=== PATIENT | male | born 1955 | race Caucasian/White ===

== ENCOUNTER 2019-06-19 22:18 | Outpatient (REF) | payer OTHER, SELFPAY ==
[2019-06-19 22:44] LABS: HCT 38.2 % (40.0-50.0); HGB 12.2 g/dL (13.5-17.5); Mean Corp. HGB Concentration 31.9 g/dL (32.0-36.0); Mean Corpuscular Hemoglobin 28.9 pg (27.0-33.0); Mean Corpuscular Volume 90.5 fL (80-95); Mean Platelet Volume 11.6 fL (8.0-11.0); Platelet Count 222 x1000/uL (130-400); RBC 4.22 m/cumm (4.50-6.00); RBC Distribution Width 18.2 % (11.8-14.1); White Blood Cell Count 4.63 k/cumm (4.4-10.8)
[2019-06-19 22:53] LABS: ALT 49 U/L (16-63); AST 46 U/L (15-37); Albumin 3.6 g/dL (3.4-5.0); Alkaline Phosphatase 70 U/L (46-116); Anion Gap 10.7 mmol/L (3-11); BUN 19 mg/dL (7-18); Bilirubin, Total 0.4 mg/dL (0.2-1.0); CO2 24.3 mmol/L (21.0-32.0); CREATININE 0.94 mg/dL (0.70-1.30); Calcium 9.2 mg/dL (8.5-10.1); Chloride 105 mmol/L (98-107); Glucose 81 mg/dL (74-106); Potassium 4.2 mmol/L (3.5-5.1); Sodium 140 mmol/L (136-145); Total Protein 6.9 g/dL (6.4-8.2)
== END 2019-06-19 22:38 ==
LOC: NCHCN 22:18
PROVIDERS: Visit Provider Nurse Practitioner Family
DX: R63.4 Abnormal weight loss (principal); D62 Acute posthemorrhagic anemia; J15.9 Unspecified bacterial pneumonia; J96.01 Acute respiratory failure with hypoxia
CPT/HCPCS: 80053; 85027

== ENCOUNTER 2019-08-06 10:03 | Outpatient (REF) | payer OTHER, SELFPAY ==
[2019-08-06 21:53] LABS: Abs Immature Grans 0.01 k/cumm (0.0-0.09); Absolute Basophil Count 0.03 k/cumm (0.0-0.2); Absolute Eosinophil Count 0.14 k/cumm (0.0-0.7); Absolute Lymphocyte Count 0.97 k/cumm (1.2-3.4); Basophils % 0.8; Eosinophils % 3.9; HCT 41.6 % (40.0-50.0); HGB 13.9 g/dL (13.5-17.5); Immature Grans % 0.3 %; Lymphocytes % 27.3; Mean Corp. HGB Concentration 33.4 g/dL (32.0-36.0); Mean Corpuscular Hemoglobin 30.2 pg (27.0-33.0); Mean Corpuscular Volume 90.4 fL (80-95); Mean Platelet Volume 12.1 fL (8.0-11.0); Monocytes % 14.1; Neutrophils % 53.6; Platelet Count 144 x1000/uL (130-400); RBC Distribution Width 15.4 % (11.8-14.1); White Blood Cell Count 3.55 k/cumm (4.4-10.8)
[2019-08-06 22:26] LABS: Iron 134 ug/dL (65-175)
[2019-08-06 22:28] LABS: ALT 73 U/L (16-63); AST 45 U/L (15-37); Albumin 3.8 g/dL (3.4-5.0); Alkaline Phosphatase 63 U/L (46-116); Anion Gap 12.6 mmol/L (3-11); BUN 20 mg/dL (7-18); Bilirubin, Total 0.5 mg/dL (0.2-1.0); CO2 21.4 mmol/L (21.0-32.0); CREATININE 0.98 mg/dL (0.70-1.30); Calcium 9.1 mg/dL (8.5-10.1); Chloride 105 mmol/L (98-107); Glucose 111 mg/dL (74-106); Potassium 4.1 mmol/L (3.5-5.1); Sodium 139 mmol/L (136-145); Total Protein 6.7 g/dL (6.4-8.2); Vitamin B12 647 pg/mL (193-986)
[2019-08-06 22:29] LABS: Folate > 20.0 ng/mL (8.6-20.0)
== END 2019-08-06 10:23 ==
LOC: NCHCN 10:03
PROVIDERS: PCP Nurse Practitioner Family; Visit Provider Nurse Practitioner Family
DX: D62 Acute posthemorrhagic anemia (principal); R63.4 Abnormal weight loss; I48.91 Unspecified atrial fibrillation; Z87.891 Personal history of nicotine dependence; N17.9 Acute kidney failure, unspecified
CPT/HCPCS: 80053; 82607; 82746; 83540; 85025

== ENCOUNTER 2020-09-15 13:56 | Outpatient (REF) | payer OTHER, SELFPAY ==
[2020-09-15 14:44] LABS: HCT 39.2 % (40.0-50.0); MCH 32.1 pg (27.0-33.0); MCHC 33.2 % (32.0-36.0); MCV 96.8 fL (80-95); MPV 12.3 fL (8.0-11.0); Platelet Count 165 10^3/uL (130-400); RBC 4.05 10^6/uL (4.36-5.78); RDW 14.2 % (11.8-14.1); RDW-SD 50.4 fL; WBC 5.21 10^3/uL (4.4-10.8)
[2020-09-15 15:25] LABS: ALT 52 U/L (16-63); AST 37 U/L (15-37); Albumin 3.6 g/dL (3.4-5.0); Alkaline Phosphatase 82 U/L (46-116); Anion Gap 9.8 mmol/L (3-11); BUN 15 mg/dL (7-18); Bilirubin, Total 0.3 mg/dL (0.2-1.0); CO2 29.2 mmol/L (21.0-32.0); Calcium 9.3 mg/dL (8.5-10.1); Calculated LDL 96 mg/dL (<100); Chloride 105 mmol/L (98-107); Cholesterol 160 mg/dL (<200); Glucose 97 mg/dL (74-106); HDL Cholesterol 54 mg/dL (40-60); Sodium 144 mmol/L (136-145); Total Protein 6.7 g/dL (6.4-8.2); Triglyceride 54 mg/dL (<150)
[2020-09-15 22:43] LABS: PSA, Screening 1.8 ng/mL (0.0-4.5)
[2020-09-16 09:53] LABS: HBs Antibody, Quant <3.1 mIU/mL (See Note); Hepatitis B Surface Ab Negative (See Note)
[2020-09-16 12:00] LABS: Hepatitis C Ab w Rflx HCV PCR Reactive (Negative)
[2020-09-17 14:43] LABS: HCV RNA Qualitative Detected (Undetected)
== END 2020-09-15 13:57 | disposition home or self-care (01) ==
LOC: NCHCN 13:56
PROVIDERS: PCP Nurse Practitioner Family; Visit Provider Nurse Practitioner Family
DX: I25.10 Atherosclerotic heart disease of native coronary artery without angina pectoris (principal); R39.9 Unspecified symptoms and signs involving the genitourinary system; K26.0 Acute duodenal ulcer with hemorrhage; Z86.79 Personal history of other diseases of the circulatory system; Z12.5 Encounter for screening for malignant neoplasm of prostate
CPT/HCPCS: 80053; 80061; 84153; 85027; 86706; 86803; 87522

== ENCOUNTER 2020-09-30 13:39 | Outpatient (REF) | payer OTHER, SELFPAY ==
[2020-09-30 21:42] LABS: Iron 98 ug/dL (65-175); Total Iron Binding Capacity 286 ug/dL (250-450); Transferrin Sat 34 % (20-55)
[2020-09-30 21:55] LABS: Ferritin 205 ng/mL (26-388)
[2020-10-02 09:48] LABS: HIV-1/2 Ag & Ab Screen Negative (Negative)
[2020-10-03 02:51] LABS: HCV Genotype 1a (Undetected)
[2020-10-03 09:22] LABS: ALT 37 U/L (7-55); ActiTest Grade A0-A1; ActiTest Interpretation no activity; ActiTest Score 0.23; Alpha-2-Macroglobulin 313 mg/dL (100 - 280); Apoliprotein A1 145 mg/dL (>=120); Bilirubin, Total 0.4 mg/dL (<=1.2); FibroTest Interpretation minimal fibrosis; FibroTest Score 0.41; FibroTest Stage F1-F2; GGT 24 U/L (8 - 61); Haptoglobin 176 mg/dL (30 - 200)
== END 2020-09-30 13:40 | disposition home or self-care (01) ==
LOC: NCHCN 13:39
PROVIDERS: PCP Nurse Practitioner Family; Visit Provider Nurse Practitioner Family
DX: B19.20 Unspecified viral hepatitis C without hepatic coma (principal); Z86.2 Personal history of diseases of the blood and blood-forming organs and certain disorders involving the immune mechanism; Z11.4 Encounter for screening for human immunodeficiency virus [HIV]
CPT/HCPCS: 81596; 87389; 82728; 83540; 83550; 87521

== ENCOUNTER 2020-10-30 18:58 | Outpatient (REF) | payer OTHER, SELFPAY ==
[2020-11-03 10:03] LABS: Hepatitis B Surface Ag Negative (Negative)
[2020-11-03 10:49] LABS: Hep B Core Antibody Negative (Negative)
== END 2020-10-30 18:59 | disposition home or self-care (01) ==
LOC: NCHCN 18:58
PROVIDERS: PCP Nurse Practitioner Family; Visit Provider Family Medicine
DX: B19.20 Unspecified viral hepatitis C without hepatic coma (principal)
CPT/HCPCS: 86704; 87340

== ENCOUNTER 2020-12-19 20:43 | Outpatient (REF) | payer OTHER, SELFPAY ==
[2020-12-19 21:08] LABS: HCT 40.1 % (40.0-50.0); HGB 13.2 g/dL (13.5-17.5); MCH 32.3 pg (27.0-33.0); MCHC 32.9 % (32.0-36.0); MPV 11.8 fL (8.0-11.0); Platelet Count 177 10^3/uL (130-400); RBC 4.09 10^6/uL (4.36-5.78); RDW 14.3 % (11.8-14.1); RDW-SD 51.8 fL; WBC 6.83 10^3/uL (4.4-10.8)
[2020-12-19 21:20] LABS: ALT 36 U/L (16-63); AST 32 U/L (15-37); Albumin 3.8 g/dL (3.4-5.0); Alkaline Phosphatase 123 U/L (46-116); Anion Gap 10.1 mmol/L (3-11); BUN 25 mg/dL (7-18); Bilirubin, Total 0.8 mg/dL (0.2-1.0); CO2 25.9 mmol/L (21.0-32.0); CREATININE 1.1 mg/dL (0.70-1.30); Calcium 9.5 mg/dL (8.5-10.1); Chloride 108 mmol/L (98-107); Glucose 83 mg/dL (74-106); Potassium 4.8 mmol/L (3.5-5.1); Sodium 144 mmol/L (136-145); Total Protein 6.9 g/dL (6.4-8.2)
[2020-12-22 15:28] LABS: HCV RNA Qualitative Undetected (Undetected)
== END 2020-12-19 20:44 | disposition home or self-care (01) ==
LOC: NCHCN 20:43
PROVIDERS: PCP Nurse Practitioner Family; Visit Provider Family Medicine
DX: B19.20 Unspecified viral hepatitis C without hepatic coma (principal)
CPT/HCPCS: 80053; 85027; 87522

== ENCOUNTER 2021-07-06 17:41 | Outpatient (REF) | payer MEDICARE, SELFPAY ==
[2021-07-06 16:26] LABS: ALT 25 U/L (16-63); AST 21 U/L (15-37); Albumin 4.1 g/dL (3.4-5.0); Alkaline Phosphatase 95 U/L (46-116); Anion Gap 12.6 mmol/L (3-11); BUN 27 mg/dL (7-18); Bilirubin, Total 0.6 mg/dL (0.2-1.0); CO2 25.4 mmol/L (21.0-32.0); CREATININE 1.1 mg/dL (0.70-1.30); Calcium 9.3 mg/dL (8.5-10.1); Calculated LDL 86 mg/dL (<100); Chloride 104 mmol/L (98-107); Cholesterol 154 mg/dL (<200); Glucose 89 mg/dL (74-106); HDL Cholesterol 58 mg/dL (40-60); Potassium 4.3 mmol/L (3.5-5.1); Sodium 142 mmol/L (136-145); Total Protein 7.4 g/dL (6.4-8.2); Triglyceride 50 mg/dL (<150)
== END 2021-07-06 17:42 | disposition home or self-care (01) ==
LOC: NCHCN 17:41
PROVIDERS: PCP Nurse Practitioner Family; Visit Provider Nurse Practitioner Family
DX: E78.5 Hyperlipidemia, unspecified (principal); B19.20 Unspecified viral hepatitis C without hepatic coma
CPT/HCPCS: 80053; 80061

== ENCOUNTER 2024-03-15 12:09 | Outpatient (REF) | payer MEDICARE, SELFPAY ==
[2024-03-15 15:05] LABS: HCT 49.1 % (40.0-50.0); HGB 16.5 g/dL (13.5-17.5); MCH 33.7 pg (27.0-33.0); MCHC 33.6 % (32.0-36.0); MCV 100 fL (80-95); MPV 11.5 fL (8.0-11.0); Platelet Count 211 10^3/uL (130-400); RDW 13.5 % (11.8-14.1); RDW-SD 50.3 fL; WBC 7.54 10^3/uL (4.4-10.8)
[2024-03-15 15:52] LABS: ALT 21 U/L (16-63); AST 16 U/L (15-37); Albumin 4.2 g/dL (3.4-5.0); Alkaline Phosphatase 81 U/L (46-116); Anion Gap 7.2 mmol/L (3-11); BUN 19 mg/dL (7-18); Bilirubin, Total 0.68 mg/dL (0.2-1.0); CO2 28.8 mmol/L (21.0-32.0); CREATININE 1.1 mg/dL (0.70-1.30); Calculated LDL 97 mg/dL (<100); Chloride 103 mmol/L (98-107); Cholesterol 170 mg/dL (<200); Estimated GFR 72.22 (mL/min/1.73m2); Glucose 98 mg/dL (74-106); HDL Cholesterol 62 mg/dL (40-60); Potassium 4.2 mmol/L (3.5-5.1); Sodium 139 mmol/L (136-145); Total Protein 7.9 g/dL (6.4-8.2); Triglyceride 58 mg/dL (<150); Vitamin B12 665 pg/mL (193-986)
== END 2024-03-15 12:10 | disposition home or self-care (01) ==
LOC: NCHCN 12:09
PROVIDERS: PCP Nurse Practitioner Family; Visit Provider Nurse Practitioner Family
DX: I25.10 Atherosclerotic heart disease of native coronary artery without angina pectoris (principal)
CPT/HCPCS: 80053; 80061; 85027; 82607

== ENCOUNTER 2024-07-11 18:16 | Outpatient (REF) | payer MEDICARE, SELFPAY ==
--- OUTSIDE RECORDS SUMMARY | 2024-07-11 18:20 | XMS_ITS | Encounter Summary ---
Author Organization [facility] [place] [address] Care Team Providers Care Engineering Manager Electronics Name Role Phone Unavailable Primary Care Provider Unavailabl e Encounter Details Date Type Department Care Team (Late st Contact Info) Description 03/30/2024 Interpretation Only [facility] in [address] [phone] Bethany Payan, COAL CHUTE WORKER [address] [place] [address] Social History Tobacco Use Types Packs/Day Years Used Date Smoking Tobacco: Never Assessed Sex and Gender Information Value Date Recorded Sex Assigned at Not on file Gender Identity Not on file Sexual Orientation Not on file documented as of this encounter Plan of Treatment Not on file documented as of this encounter Procedures Procedure Name Priority Date/Time Associated Diagnosis Comments XR LUMBAR SPINE 4 VIEWS AP AND LATERAL WITH FLEXION EXTENSION Routine 03/30/2024 2:16 PM EDT documented in this encounter Results * XR Lumbar Spine 4 Views AP and Lateral with Flexion Extension (03/30/2024 2:16 PM EDT) PT CLASS O RAD ADMITDTTM [id number] RAD PT RAD MD INFO [id number]^MARLIN^ BETHANY^S RAD EXAM DESC [id number]^XR LS SPINE 4V OR MORE^RIS RAD WORKSTATION ID [id number] [facility] Anatomical Region Laterality Modality L-spine N/A Radiographic Lima ging Impressions 03/31/2024 11:59 PM EDT 1. ??Diffuse lumbar spondylosis. 2. ??Lower lumbar facet arthropathy 3. ??No acute osseous finding. Thank you for letting us participate in the care of this patient. ??If you are a health care provider and have any questions regarding this report, please contact the number below. ??For patients who have questions please contact the health interior plant caretaker that requested your imaging first. ? Narrative 03/31/2024 11:59 PM EDT EXAMINATION: XR LS SPINE 4V OR MORE CLINICAL HISTORY: ??Reason for Spine: ??PARESTHESIA ??Add'l Info: TECHNIQUE: 5 views of the lumbar spine COMPARISON: None FINDINGS: 5 nonrib-bearing lumbar vertebral bodies. ??Dextroscoliosis at the thoracolumbar junction. No spinal listhesis. ??Vertebral body heights are preserved Advanced multilevel disc degeneration with disc height loss and endplate osteophytes most pronounced at L5-S1. Facet arthropathy from level L3 to below. Survey: Aortic and iliac vascular calcifications. ??The partially included bases are clear. Procedure Note Babar Blanca MD - 04/01/2024 EXAMINATION: XR LS SPINE 4V OR MORE CLINICAL HISTORY: Reason for Spine: PARESTHESIA Add'l Info: TECHNIQUE: 5 views of the lumbar spine COMPARISON: None FINDINGS: 5 nonrib-bearing lumbar vertebral bodies. Dextroscoliosis at thethoracolumbar junction. No spinal listhesis. Vertebral body heights are preserved Advanced multilevel disc degeneration with disc height loss and endplate osteophytes most pronounced at L5-S1. Facet arthropathy from level L3 to below. Survey: Aortic and iliac vascular calcifications. The partially includedbases are clear. IMPRESSION 1. Diffuse lumbar spondylosis. 2. Lower lumbar facet arthropathy 3. No acute osseous finding. Thank you for letting us participate in the care of this patient. If youare a health care provider and have any questions regarding this report,please contact the number below. For patients who have questions please contactthe health interior plant caretaker that requested your imaging first. Bethany Payan COAL CHUTE WORKER IMG DX ORDERABLES documented in this encounter Visit Diagnoses Not on filedocumented in this encounter
--- OUTSIDE RECORDS SUMMARY | 2024-07-11 18:20 | XMS_ITS | Encounter Summary ---
Author Organization [facility] Address [facility] [place] [address] Care Team Providers Care Planer Tailer Name Role Phone Unavailable Primary Care Provider Unavailabl e Encounter Details Date Type Department Care Team (Late st Contact Info) Description 03/30/[address] [facility] in [address] [phone] Bethany Payan, KEY ACCOUNT REPRESENTATIVE [address] [place] [address] Social History Tobacco Use Types Packs/Day Years Used Date Smoking Tobacco: Never Assessed Sex and Gender Information Value Date Recorded Sex Assigned at Not on file Gender Identity Not on file Sexual Orientation Not on file documented as of this encounter Plan of Treatment Not on file documented as of this encounter Procedures Procedure Name Priority Date/Time Associated Diagnosis Comments CT CHEST SCREENING LUNG CANCER Routine 03/30/2024 1:16 PM EDT documented in this encounter Results * CT Chest Screening Lung Cancer (03/30/2024 1:16 PM EDT) PT CLASS O RAD ADMITDTTM [id number] RAD PT RAD INFO [id number]^TATEL^ BETHANY^S RAD EXAM DESC CTSCLUNG^CT LDCT FOR LUNG CA SCREEN^RIS RAD WORKSTATION ID [id number] RAD Anatomical Region Laterality Modality Computed Tomogra phy Addenda Addendum by Frank Cox MD on 04/25/2024 11:59 AM EDT ADDENDUM #1 CLINICAL HISTORY: Current cigarette smoker, 30 pack/year. Thank you for letting us participate in the care of this patient. ??If you are a health care provider and have any questions regarding this report, please contact the number below. ??For patients who have questions please contact the health career development facilitator that requested your imaging first. ? ORIGINAL REPORT EXAMINATION: CT LDCT FOR LUNG CA SCREEN CLINICAL HISTORY: Reason for CT: ??SMOKER ??Add'l Info: TECHNIQUE: Noncontrast, low-dose chest CT (LDCT) COMPARISON: 02/09/2023 FINDINGS: Lung-RADS Increased lung volumes and centrilobular as well as paraseptal bullous changes consistent with advanced COPD. 5 mm granuloma left lower lobe. No noncalcified nodules seen. No adenopathy seen at the mediastinum and hilar regions. The central airways demonstrate normal patency. Degenerative changes of the spine. 11 mm left adrenal low-density nodule, -13 Hounsfield units, consistent with adenoma, and unchanged since prior. Pleural spaces clear. Heart size normal. Small focus of calcium at either the proximal LAD or circumflex. IMPRESSION: Lung-RADS category 1. No mass or noncalcified nodules. Underlying COPD. Incidental finding of coronary calcium, and left adrenal nodule, these findings stable since prior. RECOMMENDATION: 12 month low-dose screening CT. Thank you for letting us participate in the care of this patient. ??If you are a health care provider and have any questions regarding this report, please contact the number below. ??For patients who have questions please contact the health career development facilitator that requested your imaging first. ? Addendum by Frank Cox MD on 04/25/2024 11:05 AM EDT ADDENDUM #1 CLINICAL HISTORY: Current cigarette smoker, 30 pack/year. ORIGINAL REPORT EXAMINATION: CT LDCT FOR LUNG CA SCREEN CLINICAL HISTORY: Reason for CT: ??SMOKER ??Add'l Info: TECHNIQUE: Noncontrast, low-dose chest CT (LDCT) COMPARISON: 02/09/2023 FINDINGS: Lung-RADS Increased lung volumes and centrilobular as well as paraseptal bullous changes consistent with advanced COPD. 5 mm granuloma left lower lobe. No noncalcified nodules seen. No adenopathy seen at the mediastinum and hilar regions. The central airways demonstrate normal patency. Degenerative changes of the spine. 11 mm left adrenal low-density nodule, -13 Hounsfield units, consistent with adenoma, and unchanged since prior. Pleural spaces clear. Heart size normal. Small focus of calcium at either the proximal LAD or circumflex. IMPRESSION: Lung-RADS category 1. No mass or noncalcified nodules. Underlying COPD. Incidental finding of coronary calcium, and left adrenal nodule, these findings stable since prior. RECOMMENDATION: 12 month low-dose screening CT. Thank you for letting us participate in the care of this patient. ??If you are a health care provider and have any questions regarding this report, please contact the number below. ??For patients who have questions please contact the health career development facilitator that requested your imaging first. ? Impressions 04/09/2024 11:42 AM EDT Lung-RADS category 1. No mass or noncalcified nodules. Underlying COPD. Incidental finding of coronary calcium, and left adrenal nodule, these findings stable since prior. RECOMMENDATION: 12 month low-dose screening CT. Thank you for letting us participate in the care of this patient. ??If you are a health care provider and have any questions regarding this report, please contact the number below. ??For patients who have questions please contact the health career development facilitator that requested your imaging first. ? Narrative 04/09/2024 11:42 AM EDT EXAMINATION: CT LDCT FOR LUNG CA SCREEN CLINICAL HISTORY: Reason for CT: ??SMOKER ??Add'l Info: TECHNIQUE: Noncontrast, low-dose chest CT (LDCT) COMPARISON: 02/09/2023 FINDINGS: Lung-RADS Increased lung volumes and centrilobular as well as paraseptal bullous changes consistent with advanced COPD. 5 mm granuloma left lower lobe. No noncalcified nodules seen. No adenopathy seen at the mediastinum and hilar regions. The central airways demonstrate normal patency. Degenerative changes of the spine. 11 mm left adrenal low-density nodule, -13 Hounsfield units, consistent with adenoma, and unchanged since prior. Pleural spaces clear. Heart size normal. Small focus of calcium at either the proximal LAD or circumflex. Procedure Note Frank Cox MD - 04/09/2024 EXAMINATION: CT LDCT FOR LUNG CA SCREEN CLINICAL HISTORY: Reason for CT: SMOKER Add'l Info: TECHNIQUE: Noncontrast, low-dose chest CT (LDCT) COMPARISON: 02/09/2023 FINDINGS: Lung-RADS Increased lung volumes and centrilobular as well as paraseptal bullouschanges consistent with advanced COPD. 5 mm granuloma left lower lobe. No noncalcified nodules seen. No adenopathy seen at the mediastinum and hilar regions. The centralairways demonstrate normal patency. Degenerative changes of the spine. 11 mm left adrenal low-density nodule, -13 Hounsfield units, consistentwith adenoma, and unchanged since prior. Pleural spaces clear. Heart size normal. Small focus of calcium at either the proximal LAD or circumflex. IMPRESSION Lung-RADS category 1. No mass or noncalcified nodules. Underlying COPD. Incidental finding of coronary calcium, and left adrenal nodule, thesefindings stable since prior. RECOMMENDATION: 12 month low-dose screening CT. Thank you for letting us participate in the care of this patient. If youare a health care provider and have any questions regarding this report,please contact the number below. For patients who have questions please contactthe health career development facilitator that requested your imaging first. Bethany Payan KEY ACCOUNT REPRESENTATIVE IMG CT ORDERABLES documented in this encounter Visit Diagnoses Not on filedocumented in this encounter
--- OUTSIDE RECORDS SUMMARY | 2024-07-11 18:20 | XMS_ITS | Clinical Summary ---
Author Organization [facility] [place] [address] Care Team Providers Care J2Ee Programmer Name Role Phone Unavailable Primary Care Provider Unavailabl e Social History Tobacco Use Types Packs/Day Years Used Date Smoking Tobacco: Never Assessed Sex and Gender Information Value Date Recorded Sex Assigned at Not on file Gender Identity Not on file Sexual Orientation Not on file Plan of Treatment Health Maintenance Due Date Last Done Comments CT Colonography 1955 Colonoscopy 1955 Colorectal Cancer Screening 1955 FIT DNA 1955 FIT 1955 Sigmoidoscopy (10 year) with FIT yearly 1955 Sigmoidoscopy 1955 Hepatitis C Screening 02/15/1972 Lipid Screening 02/15/1972 Tetanus/Diphtheria/Pertussis Vaccines (1 - Tdap) 02/14 Pneumoccocal Vaccine: 65+ (1 of 1 - PCV) 02/15/2004 Zoster vaccine (1 of 2) 02/15/2004 Advance Directive 2009 Covid-19 Vaccine (1 - 2023- season) 2024 Influenza (Flu) vaccine (1 o f 1 - Influenza standard series) 03/04/2024
--- OUTSIDE RECORDS SUMMARY | 2024-07-11 18:22 | XMS_ITS ---
Author Organization Unknown Address [address] [place] [phone] Phone Care Team Providers Care Health Education Coordinator Name Role Phone RAI Gagnon Attending Unavailable MARLIN Parr Primary Unavailable Social History Type Status Start Date End Date Code Code Syst em Smoking History Current some day smoker 178802424747999 SNOMED CT Sex Male Vital Signs Vital Sign Value Unit [place] Value [place] Unit Date/Time Recent/Initial? Code Code System Systolic Blood Pressure 116 mm[Hg] 07/29/2021 13:20 Most Recent 8480-6 LOINC Diastolic Blood Pressure 72 mm[Hg] 07/29/2021 13:20 Most Recent 8462-4 LOINC Systolic Blood Pressure 116 mm[Hg] 07/29/2021 12:46 Initial 8480-6 LOINC Diastolic Blood Pressure 68 mm[Hg] 07/29/2021 12:46 Initial 8462-4 LOINC O2 Saturation 95 % 2021 13:20 Most Recent 60769- 5 LOINC O2 Saturation 95 % 2021 12:46 Initial 23551- 5 LOINC Pulse 59.0 /min 07/29/2021 13:20 Most Recent 8867-4 LOINC Pulse 66.0 /min 07/29/2021 12:46 Initial 8867-4 LOINC Respiration 16 /min 07/29/19 22 13:20 Most Recent 9279-1 LOINC Respiration 21 /min 07/29/19 22 12:46 Initial 9279-1 LOINC Temperature 36.5 Meg 97.7 F 07/29/19 22 13:20 Most Recent 8310-5 LOINC Temperature 36.5 Meg 97.7 F 07/29/19 12:46 Initial 8310-5 LOINC Assessment You had the following problems:ACUTE RENAL FAILUREPNEUMONIALIVER FUNCTION TESTS ABNORMAL Hospital Discharge Instructions Should you have any questions prior to discharge, please contact a member of your healthcare team. If you have left the hospital and have any questions, please contact your primary care physician. Reason For Referral No Data Found Procedures Procedure Name Date Status Code Code Melissa m Colsc Flx w/Rmvl Of Tumor Po lyp Lesion Snare Tq 07/29/2021 completed 32106 CPT Colonoscopy, Flexible, Proxi mal To Splenic Flexure; w/Bx, Single/Multiple 07/29/2021 completed 43877 C PT Problems Problem Start Date Resolved Date Status Code Code System ACUTE RENAL FAILURE active 72430706 SNOMED-CT PNEUMONIA active 811722642 SNOMED-CT LIVER FUNCTION TESTS ABNORMAL active 009813506 SNOMED-CT Allergies and Adverse Reactions Allergy Substance Reaction Severity Start Date Concern Status Co de Code System No Known Drug Allergies Active 940875331 SNOMED-CT Plan of Treatment CT CHEST W/O CONTRAST 03/30/2024 US ABDOMEN LIMITED 1 ORGAN 02/09/2023 CT CHEST W/O CONTRAST 02/09/2023 LAB DRAW 15MIN 08/24/2021 PRE-OP COVID-19 TESTING 07/27/2021 Encounters Encounter Diagnosis Start Date Code Code Sys tem Encounter for screening for malignant neoplasm of colo n 07/29/2021 SNOMED-CT Personal Care Team Section Performer Name Performer Role Active Date Inactive Da te
--- OUTSIDE RECORDS SUMMARY | 2024-07-11 18:22 | XMS_ITS ---
Author Organization Unknown Address [address] [place] [phone] Phone Care Team Providers Care Cigar Head Piercer Name Role Phone MARLIN Parr Attending Unavailable Results CT LDCT FOR LUNG CA SCREEN - Completed: 02/09/2023 09:54 LOINC: [No content] US AORTA SCREENING - Complet ed: 02/09/2023 08:11 LOINC: [facility] [place], [place] [address] PACS ADVOCACY DIRECTOR REPORT Patient Name: SHIRLENE SWANN MRN: Sex: : Age: [id number] M [id number] Account: Accession: Admit: StayType: [id number] 02/09/2023 O/P Ordered: Order ID: Submitted: Ordering Provider: 02/09/2023 07:52 [id number] BETHANY SINGH Completed: Technologist: Resulted: 02/09/2023 08:11 GVS 02/09/2023 08:12 Study Description: US AORTA SCREENING Study Reason: SCREENING FINDINGS: Sonographic evaluation of the abdominal aorta was performed. FINDINGS: Proximal abdominal aorta: 2.0 x 2.3 cm Mid abdominal aorta: 1.6 x 2.0 cm. Distal abdominal aorta: 1.4 x 1.5 cm. Right internal iliac artery: 1.0 x 1.1 cm. Left internal iliac artery: 0.9 x 1.3 cm. There is moderate to severe atherosclerosis. Visualized IVC is unremarkable. IMPRESSION: No evidence of an abdominal aortic aneurysm. Report Digitally Signed by Vaughn Simon on 02/09/2023 08:12 AM EDT Social History Type Status Start Date End Date Code Code Syst em Smoking History Current some day smoker [id number] SNOMED CT Sex Male Assessment You had the following problems:ACUTE RENAL FAILUREPNEUMONIALIVER FUNCTION TESTS ABNORMAL Hospital Discharge Instructions Should you have any questions prior to discharge, please contact a member of your healthcare team. If you have left the hospital and have any questions, please contact your primary care physician. Reason For Referral No Data Found Problems Problem Start Date Resolved Date Status Code Code System ACUTE RENAL FAILURE active 70541622 SNOMED-CT PNEUMONIA active 150000632 SNOMED-CT LIVER FUNCTION TESTS ABNORMAL active 670574436 SNOMED-CT Allergies and Adverse Reactions Allergy Substance Reaction Severity Start Date Concern Status Co de Code System No Known Drug Allergies Active 767765770 SNOMED-CT Plan of Treatment CT CHEST W/O CONTRAST 03/30/2024 US ABDOMEN LIMITED 1 ORGAN 02/09/2023 CT CHEST W/O CONTRAST 02/09/2023 LAB DRAW 15MIN 08/24/2021 PRE-OP COVID-19 TESTING 07/27/2021 Encounters Encounter Diagnosis Start Date Code Code Sys tem Screening for malignant neop lasm of respiratory tract 02/09/2023 483011797 SNOMED-CT Personal Care Team Section Performer Name Performer Role Active Date Inactive Da te
--- OUTSIDE RECORDS SUMMARY | 2024-07-11 18:22 | XMS_ITS ---
Author Organization Unknown Address [address] [place] [phone] Phone Care Team Providers Care Machine Operator Name Role Phone JOVANA Gagnon Attending Unavailable MARLIN Parr Primary Unavailable Social History Type Status Start Date End Date Code Code Syst em Smoking History Current some day smoker 050690511801027 SNOMED CT Sex Male Assessment You had [...] Code Code System ACUTE RENAL FAILURE active 38342263 SNOMED-CT PNEUMONIA active 232570377 SNOMED-CT LIVER FUNCTION TESTS ABNORMAL active 970780534 SNOMED-CT Allergies and Adverse Reactions Allergy Substance Reaction Severity Start Date Concern Status Co de Code System No Known Drug Allergies Active 874043409 SNOMED-CT Plan of Treatment CT CHEST W/O CONTRAST 03/30/2024 US ABDOMEN LIMITED 1 ORGAN 02/09/2023 CT CHEST W/O CONTRAST 02/09/2023 LAB DRAW 15MIN 08/24/2021 PRE-OP COVID-19 TESTING 07/27/2021 Encounters Encounter Diagnosis Start Date Code Code Sys tem Atrial fibrillation 03/30/2024 92395142 SNOMED-C T Personal Care Team Section Performer Name Performer Role Active Date Inactive Da te
--- OUTSIDE RECORDS SUMMARY | 2024-07-11 18:22 | XMS_ITS ---
Author Organization Unknown Address [address], [place] [phone] Phone Care Team Providers Care Oracle Applications Developer Name Role Phone JERALD Roy Attending Unavailable MARLIN Parr Primary Unavailable Results PSA PROSTATE SPECIFIC ANTIGE N DIAG* - Collect Date/Time: 08/24/2021 10:46 [facility] ID: [id number] - [id number] [address] [place], [place], [address] LOINC: 2857-1 Test Value Unit Reference Range Code Code System Flag PSA 1.81 ng/mL L=0.00 H=4.50 2857-1 LOINC Social History Type Status Start Date End Date Code Code Syst em Smoking History Current some day smoker 240558746146904 SNOMED CT Sex Male Assessment You had [...] Code Code System ACUTE RENAL FAILURE active 97479285 SNOMED-CT PNEUMONIA active 837766610 SNOMED-CT LIVER FUNCTION TESTS ABNORMAL active 838717462 SNOMED-CT Allergies and Adverse Reactions Allergy Substance Reaction Severity Start Date Concern Status Co de Code System No Known Drug Allergies Active 520406302 SNOMED-CT Plan of Treatment CT CHEST W/O CONTRAST 03/30/2024 US ABDOMEN LIMITED 1 ORGAN 02/09/2023 CT CHEST W/O CONTRAST 02/09/2023 LAB DRAW 15MIN 08/24/2021 PRE-OP COVID-19 TESTING 07/27/2021 Encounters Encounter Diagnosis Start Date Code Code Sys tem Screening for malignant neoplasm of prostate 2 471956761 SNOMED-CT Personal Care Team Section Performer Name Performer Role Active Date Inactive Da te
--- OUTSIDE RECORDS SUMMARY | 2024-07-11 18:23 | XMS_ITS | Encounter Summary ---
Author Organization [facility] Address [address] [place] [address] Care Team Providers Care Blanching Machine Operator Name Role Phone Maile Payan Keshav MARTÍNEZP Primary Care Provider [phone] Reason for Visit * Auth/Cert Specialty Diagnoses / Procedures Referred By Contac t Referred To Contact Diagnoses Acquired tracheal fistula Procedures [place] SURG CLOSURE TRACH/FISTULA SURG CLOSURE TRACHEOSTOMY/FISTULA;W/OPLASTIC REPA Referral ID Status Reason Start Date Expiration Date Visits Re quested Visits Authorized [id number] 1 1 Encounter Details Date Type Department Care Team (Latest Contact Info) Description 09/05/2019 11:55 EST - 09/05/2019 17:33 EST Hospital Encounter [facility] OR [address] [place] [id number] Owen Carpio MD PhD Acquired tracheal fistula (Primary Dx) Discharge Disposition: Home or Self Care Social History Tobacco Use Types Packs/Day Years Used Date Smoking Tobacco: Former Cigarettes 1.5 43.7 1 976 - 03/13/2019 Smokeless Tobacco: Never Comments: Alcohol Use Standard Drinks/Week Comments Yes 4 (1 standard drink = 0.6 oz pur e alcohol) Sex and Gender Information Value Date Recorded Sex Assigned at Not on file Legal Sex Male 18:41 EST Gender Identity Male 08/29/2019 11:36 EST Sexual Orientation Not on file documented as of this encounter Last Filed Vital Signs Vital Sign Reading Time Taken Comments Blood Pressure 145/96 09/05/2019 1715 EST Pulse - - Temperature 37 ??C (98.6 ??F) 09/05/2019 1715 EST Respiratory Rate 16 09/05/2019 1715 EST Oxygen Saturation 99% 09/05/2019 1715 EST Inhaled Oxygen Concentration - - Weight 64.9 kg (143 lb 1.3 oz) 09/05/[address] Height - - Body Mass Index 19.96 08/30/2019 1349 EST documented in this encounter Functional Status * Are you deaf or do you have serious difficulty hearing? Answer Date of Assessment Author No 04/23/2019 13:39 Jori Tang RN * Are you blind or do you have serious difficulty seeing, even when wearing glasses? Answer Date of Assessment Author No 04/23/2019 13:39 Jori Tang RN * Do you have serious difficulty walking or climbing stairs? (5 years old or older) Answer Date of Assessment Author Yes 04/23/2019 13:39 Jori Tang RN * Do you have difficulty dressing or bathing? (5 years old or older) Answer Date of Assessment Author Yes 04/23/2019 13:39 Jori Tang RN * Because of a physical, mental, or emotional condition, does this person have difficulty doing errands alone such as visiting a doctor's office or shopping? Answer Date of Assessment Author No 07/17/2019 9:15 Lucy Gavin RN documented as of this encounter Mental Status * Because of a physical, mental, or emotional condition, does this person have serious difficulty concentrating, remembering, or making decisions? Answer Entry Date Author No 07/17/2019 9:15 Lucy Gavin RN documented in this encounter Medications at Time of Discharge acetaminophen (TYLENOL) 325 mg tablet Take 2 Tabs by mouth every 4 hours as needed for Pain. 05/10/2019 cholecalciferol, Vitamin D3, 1,000 unit tablet Take 1 Tab by mouth daily. 30 Tab 05/10/2019 DILTiazem (TIAZAC) 120 mg SR capsule Take 1 Cap by mouth daily. 30 Cap 05/11/2019 diphenhydrAMINE (BENADRYL) 25 mg capsule Take 1 Cap by mouth every 6 hours as needed for Itching, Rash or Sleep. 30 Cap 05/10/2019 ferrous sulfate 324 mg (65 mg iron) tablet,delayed release (DR/EC) Take 1 Tab by mouth daily with breakfast. 30 Tab 05/10/2019 fluticasone propion-salmetero l (ADVAIR) 100-50 mcg/dose diskus inhaler Inhale 1 Puff as directed every 12 hours. 1 Each 05/11/2019 Multivitamins with Minerals tablet tablet Take 1 Tab by mouth daily. 30 Tab 04/24/2019 pantoprazole (PROTONIX) 40 mg tablet Take 1 Tab by mouth at bedtime. 30 Tab 05/10/2019 tamsulosin (FLOMAX) 0.4 mg capsule Take 0.4 mg by mouth every morning. tiotropium (SPIRIVA) 18 mcg inhalation capsule Inhale 1 Cap as directed daily. 30 Cap 05/11/2019 Wool Alcoh-Min Klf-Nbbrc-Lrjge (EUCERIN) cream Apply to dry areas twice daily as needed 57 g 05/10/2019 documented as of this encounter Discharge Disposition Disposition Code Departure Means Destination Home or Self Detention documented in this encounter OR Notes * OR Surgeon - Owen Carpio MD - 09/05/2019 0000 EST OPERATIVE REPORT SERVICE DATE: 09/05/2019 SURGEON: Owen Carpio MD, PhD TIMBER INCISOR OPERATOR: Gemma Romero MD PROCEDURE: Closure of tracheocutaneous fistula. INDICATIONS: The patient had undergone percutaneous tracheostomy. With removal of the tracheostomy cannula, this tracheostomy site never closed. He has epithelialized tracheocutaneous fistula. Closure is indicated. PREOPERATIVE DIAGNOSIS: Tracheocutaneous fistula. POSTOPERATIVE DIAGNOSIS: Tracheocutaneous fistula. FINDINGS: The patient had skin that had grown all the way down to the tracheotomy site. Once the skin was excised, the defect in the trachea measured approximately 1 cm in diameter. ANESTHESIA: Local with sedation. COMPLICATIONS: None. ESTIMATED BLOOD LOSS: None. FLUIDS: 200 mL. DRAINS: None. SPECIMENS: Fistula tract. NARRATIVE: The patient was brought to the operating room, placed on the operating table in the supine position. Intravenous sedation was initiated. The anterior neck was carefully prepped with Betadine, care taken to avoid dripping into the tracheostomy site. Local anesthesia with 1% lidocaine withepinephrine was utilized. An elliptical incision measuring 1.5 cm in diameter was made. The skin was incised. The skin was then taken off the tract all the way down to the trachea using electrocautery. All of the involved tissue was removed with the skin. Once this was done, there was a defect in the trachea that measured 1 cm in diameter. Some of the chronically inflamed wound tissue was excisedwith electrocautery. There were now clean edges all the way around. The most superficial investing fascia of the neck, difficult to tell if this was platysma or the fascia anterior to the strap muscles. It was closed with a single 2-0 Vicryl suture just to reapproximate some of these tissues. Hemostasis was noted to be present. It was covered with Xeroform, 2 x 2 gauze and Tegaderm. Sedation was terminated. The patient was brought to PACU in stable condition. Unless otherwise noted, there were no complications, no blood loss, no cultures obtained, no specimens removed, and no drains retained. Owen Carpio MD,PhD 04 35 PM / Owen Carpio MD,PhD an Confirmation: [id number] Dictation ID: [id number] documented in this encounter Miscellaneous Notes * Brief Op Note - Gemma Romero MD - 09/05/2019 1615 EST Brief Op Note Pre-op Diagnosis: Tracheocutaneous fistula Post-op Diagnosis: same Procedure: Excision of TC fistula tract Surgeon: Shirin CHAMBERLAIN [employer] Car Checker: Gemma Romero MD Anesthesia: Local and IV sedation Findings: fistula tract excised Fluids: IVF - 600 cc, EBL - min, UOP - NR Drains/Lines: none Retained Material: none Specimens: none Complications: none Condition: stable Wound classification: II-Clean/Contaminated Dispo: PACU then home Gemma Romero MD, PGY5 09/05/2019 16:17 Pager: [phone] documented in this encounter Plan of Treatment Not on file documented as of this encounter Procedures Procedure Name Priority Date/Time Associated Diagnosis Comments SURGICAL PATHOLOGY Routine 09/05/2019 16 :03 EST CLOSURE, FISTULA, TRACHEOCUTANEOUS 09/05/2019 15:20 EST Acquired tracheal fistula documented in this encounter Results * SURGICAL PATHOLOGY (09/05/2019 16:03 EST) Final Diagnosis A. SUBMITTED TRACHEA FISTULA TRACT, EXCISION: - Keratinized squamous epithelium with acanthosis, dermal fibrosis, and acute and chronic inflammation. - Negative for dysplasia/maligna ncy. 09/12/2019 11:21 [facility] at 1121 Clinical History Acquired tracheal fistula 09/12/2019 11:21 [facility] Attestation There was significant resident/fellow involvement in the diagnostic evaluation of this case. By the signature below, the attending physician certifies that they have personally conducted a gross and/or microscopic examination of the described specimens and rendered or confirmed the above diagnosis. 09/12/2019 11:21 [facility] at 1121 Gross Description A. Received in normal saline labelled with proper patient identification (initials G, S) and tracheal fistula tract is an ovoid white mucosal tissue (1.1 x 1.0 x 0.2 cm). There is an ovoid transmural defect (0.3 x 0.2 x 0.2 cm). The defect is inked black and the remaining margins are inked blue. The specimen is radially sectioned and entirely submitted in A1-A3. Janette Winston 09/06/2019 11:40 09/12/2019 11:21 [facility] Resident/Sagar w: Kofi Catalan MD 09/12/2019 11:21 [facility] Scanned Images 09/12/2019 11:21 [facility] Tissue FISTULA / Unknown 09/05/2019 16:03 EST 09/06/2019 7:59 EST us Owen Carpio MD PhD PATHOLOGY ORDERABL ES Final Result [facility] [address] [place] [phone] documented in this encounter Visit Diagnoses Diagnosis Acquired tracheal fistula- Primary Acquired tracheal fistula documented in this encounter Admitting Diagnoses Diagnosis Acquired tracheal fistula documented in this encounter Administered Medications Inactive Administered Medications - up to 3 most recent administrations Medication Order MAR Action Action Date Dose Rate Site acetaminophen (TYLENOL) tablet 1,000 mg 1,000 mg, oral, PRN, 1 dose, Starting on Tue09/05/19 at 1619, Until Tue09/05/19 at 1730, Pain, Routine, Recovery (only) Given 09/05/2019 17:30 EST 1,000 mg atropine 0.1 mg/mL syringe 0.5 mg 0.5 mg, intravenous, PRN, Starting on Tue09/05/19 at 1619, Until Tue09/05/19 at 1945, Symptomatic HR < 50, Routine, Recovery (only) lactated ringers (LR) infusion at 25 mL/hr, intravenous, CONTINUOUS, Starting on Tue09/05/19 at 1345, Until Tue09/05/19 at 1945, Routine, Preprocedure Continued by Anesthesia 09/05/2019 15:29 EST New Bag 09/05/2019 13:56 EST 25 mL/hr lactated ringers (LR) infusion at 75 mL/hr, intravenous, CONTINUOUS, Starting on Tue09/05/19 at 1645, Until Tue09/05/19 at 1945, Routine, Recovery (only) lidocaine (PF) 10 mg/mL (1 %) injection 2 mg 2 mg, intradermal, PRN, 4 doses, Starting on Tue09/05/19 at 1319, Until Tue09/05/19 at 1945, peripheral intravenous catheter placement, Routine, Preprocedure naloxone (NARCAN) injection 0.2 mg 0.2 mg, intravenous, PRN, Starting on Tue09/05/19 at 1619, Until Tue09/05/19 at 1945, Opioid Reversal, Routine, Recovery (only) ondansetron (PF) (ZOFRAN) injection 4 mg 4 mg, intravenous, PRN, 1 dose, Starting on Tue09/05/19 at 1619, Until Tue09/05/19 at 1945, Nausea, Vomiting, Routine, Recovery (only) documented in this encounter Active and Recently Administered Medications Times are shown in EST. Scheduled Medication Order 09/03/2019 09/04/2019 09/05/2019 ceFAZolin (ANCEF) syringe 2 g (COMPLETED) 2 g, intravenous, Administer over 10 Minutes, PRE-OP ONCE, 1 dose, On Tue09/05/19 at 1415, Routine 1539 (Given - Provid er: LANA Bell) Continuous Medication Order 09/03/2019 09/04/2019 09/05/2019 lactated ringers (LR) infusion at 25 mL/hr, intravenous, CONTINUOUS, Starting on Tue09/05/19 at 1345, Until Tue09/05/19 at 1945, Routine, Preprocedure 1356 (New Bag - Prov ider: Sangeeta Ho)1529 (Continued by Anesthesia - Provider: LANA Bell)1619 (Anesthesia Volume Adjustment - Provider: LANA Bell)1634 (Completed - Provider: Jess Bhandari RN) lactated ringers (LR) infusion at 75 mL/hr, intravenous, CONTINUOUS, Starting on Tue09/05/19 at 1645, Until Tue09/05/19 at 1945, Routine, Recovery (only) 1617 (Continued Infu chad - Provider: Jess Bhandari RN) PRN Medication Order 09/03/2019 09/04/2019 09/05/2019 acetaminophen (TYLENOL) tablet 1,000 mg (COMPLETED)(Linked Group 1) 1,000 mg, oral, PRN, 1 dose, Starting on Tue09/05/19 at 1619, Until Tue09/05/19 at 1730, Pain, Routine, Recovery (only) 1730 (Given - Provid er: Jess Bhandari RN) atropine 0.1 mg/mL syringe 0.5 mg 0.5 mg, intravenous, PRN, Starting on Tue09/05/19 at 1619, Until Tue09/05/19 at 1945, Symptomatic HR < 50, Routine, Recovery (only) lidocaine (PF) 10 mg/mL (1 %) injection 2 mg 2 mg, intradermal, PRN, 4 doses, Starting on Tue09/05/19 at 1319, Until Tue09/05/19 at 1945, peripheral intravenous catheter placement, Routine, Preprocedure 1354 (Not Given - Pr ovider: Sangeeta Clinton - Reason: Other) lidocaine-EPINEPHrine 1 %-1:100,000 injection (CANCELED) As needed, Starting on Tue09/05/19 at 1606, Until Tue09/05/19 at 1608, Routine, Intraprocedure 1606 (Given - Provid er: Owen Carpio MD) naloxone (NARCAN) injection 0.2 mg 0.2 mg, intravenous, PRN, Starting on Tue09/05/19 at 1619, Until Tue09/05/19 at 1945, Opioid Reversal, Routine, Recovery (only) ondansetron (PF) (ZOFRAN) injection 4 mg 4 mg, intravenous, PRN, 1 dose, Starting on Tue09/05/19 at 1619, Until Tue09/05/19 at 1945, Nausea, Vomiting, Routine, Recovery (only) Linked Groups Order Group 1: acetaminophen (TYLENOL) solution unit dose cup 995 mg (COMPLETED) 995 mg (rounded from 1,000 mg), oral, PRN, 1 dose, Starting on Tue09/05/19 at 1619, Until Tue09/05/19 at 1730, Pain, Routine, Recovery (only) Or acetaminophen (TYLENOL) tablet 1,000 mg (COMPLETED)Jump to med 1,000 mg, oral, PRN, 1 dose, Starting on Tue09/05/19 at 1619, Until Tue09/05/19 at 1730, Pain, Routine, Recovery (only) documented in this encounter Orders Medications Ordered That Yosi ht Not Have Been Administered Count Last Ordered Date First Ordered Date acetaminophen (TYLENOL) solu tion unit dose cup 995 mg 1 09/05/2019 atropine 0.1 mg/mL syringe 0.5 mg 1 020 ceFAZolin (ANCEF) syringe 2 g 1 09/05/2019 lactated ringers (LR) infusion 1 09/05/2019 lidocaine (PF) 10 mg/mL (1 % ) injection 2 mg 1 09/05/2019 lidocaine-EPINEPHrine 1 %-1: 100,000 injection 1 09/05/2019 naloxone (NARCAN) injection 0.2 mg 1 2019 ondansetron (PF) (ZOFRAN) injection 4 mg 1 09/05/2019 Diet Count Last Ordered Date First Orde red Date DISCHARGE DIET 1 09/05/2019 Nursing Count Last Ordered Date First Orde red Date ACTIVITY INSTRUCTIONS 1 09/05/2019 BATHING INSTRUCTIONS 1 09/05/2019 WOUND CARE INSTRUCTIONS 1 09/05/2019 Discharge Count Last Ordered Date First Orde red Date DISCHARGE PATIENT 1 09/05/2019 documented in this encounter Care Teams Blanching Machine Operator Relationship Specialty Start Date End Date Maile Payan FNP [address] [place] [phone] PCP - General 05/11/19 documented as of this encounter
--- OUTSIDE RECORDS SUMMARY | 2024-07-11 18:23 | XMS_ITS | Clinical Summary ---
Author Organization [facility] Address [address] [place] [address] Care Team Providers Care Patternmaker Grader Name Role Phone Maile Payan Keshav SUPERVISOR SPEECH Primary Care Provider Allergies No known active allergies Medications Multivitamins with Minerals tablet tablet Take 1 Tab by mouth daily. 30 Tab 04/24/20 Active Additional Information Patient taking differently:1 Tablet oralEVERY MORNING, Informant: Self, Reported on 08/30/2019 cholecalcifero l, Vitamin D3, 1,000 unit tablet Take 1 Tab by mouth daily. 30 Tab 05/10/20 Active Additional Information Patient taking differently:1,000 Units oralDAILY WITH LUNCH, Informant: Self, Reported on 08/30/2019 ferrous sulfate 324 mg (65 mg iron) tablet,delayed release (DR/EC) Take 1 Tab by mouth daily with breakfast. 30 Tab 05/10/20 Active Additional Information Patient not taking.Informant: Self, Reported on 09/27/2019 pantoprazole (PROTONIX) 40 mg tablet Take 1 Tab by mouth at bedtime. 30 Tab 05/10/20 Active acetaminophen (TYLENOL) 325 mg tablet Take 2 Tabs by mouth every 4 hours as needed for Pain. 05/10/20 Active DILTiazem (TIAZAC) 120 mg SR capsule Take 1 Cap by mouth daily. 30 Cap 05/11/20 Active Additional Information Patient taking differently:120 mg oralEVERY MORNING, Informant: Self, Reported on 08/30/2019 diphenhydrAMIN E (BENADRYL) 25 mg capsule Take 1 Cap by mouth every 6 hours as needed for Itching, Rash or Sleep. 30 Cap 05/10/20 Active tiotropium (SPIRIVA) 18 mcg inhalation capsule Inhale 1 Cap as directed daily. 30 Cap 05/11/20 Active Additional Information Patient taking differently:18 mcg inhalationEVERY MORNING, Informant: Self, Reported on 08/30/2019 Wool Alcoh-Min Xha-Vywmq-Rokk s (EUCERIN) cream Apply to dry areas twice daily as needed 57 g 05/10/20 Active fluticasone propion-salmet romain (ADVAIR) 100-50 mcg/dose diskus inhaler Inhale 1 Puff as directed every 12 hours. 1 Each 05/11/20 Active tamsulosin (FLOMAX) 0.4 mg capsule Take 0.4 mg by mouth every morning. Active Active Problems Patient Care Coordination No te Formatting of this note migh t be different from the original. 02/15/2020 MLGREER: PER Epic SCAN, NARINDER LEÓN ONLY HAS DURABLE POWER OF MANAGED SERVICES CONSULTANT OVER MONEY AND PROPERTY MATTERS OF PT, NOT HEALTH CARE DECISIONS. 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 Overview (08/22/2019): Added automatically from request for surgery [id number] Physical debility 05/12/2019 Upper gastrointestinal bleed 04/18/2019 Septic shock ([facility]) 03/19/2019 Anemia 03/19/2019 Thrombocytopenia ([facility]) 03/19/2019 Bacteremia 03/19/2019 Fever 03/19/2019 Encephalopathy 03/19/2019 Atrial fibrillation with RVR ([facility]) 9 Resolved Problems Problem Noted Date Diagnosed Date Resolved Date ARDS (adult respiratory dist ress syndrome) ([facility]) 03/19/2019 05/12/2019 SIRISHA (acute kidney injury) ([facility]) 03/19/2019 05/12/2019 Acute respiratory failure wi th hypoxia ([facility]) 03/17/2019 05/12/2019 Immunizations Name Administration Dates Next Due Influenza Vaccine Quad PF 0.5 ml IM (6 mos+) Surgical History Surgery Date Site/Laterality Comments TRACHEOSTOMY 03/28/2019 d/t pneumonia and ARDS; Dr. Castro; [facility] WISDOM TOOTH EXTRACTION 07/04/1971 - 07/03/1972 WRIST SURGERY 07/04/1973 - 07/03/1974 Right bone spur removed Medical History Medical History Date Comments ARDS (adult respiratory dist ress syndrome) ([facility]) 03/17/2019 A-fib ([facility]) 03/17/2019 w/ RVR; Kira H osp trans to [facility] SIRISHA (acute kidney injury) ([facility]) with acute respiratory failure with hypoxia Acute respiratory failure wi th hypoxia ([facility]) 03/17/2019 Tracheo-cutaneous fistula 07/17/[address] ([facility]) 03/28/2019 decannulated 04/20/2019 Loss of appetite 02/27/2019 Weakness generalized 02/27/2019 Malaise and fatigue 02/27/2019 Diarrhea 02/27/2019 Pneumonia 03/17/2019 Renal failure, acute ([facility]) 03/17/2019 Volume overload 03/17/2019 COPD (chronic obstructive pu lmonary disease) ([facility]) 03/17/2019 Hemodynamic instability 03/17/2019 Sepsis due to methicillin henriquez sceptible Staphylococcus aureus (MSSA) with acute hypoxic respiratory failure and septic shock ([facility]) 03/17/2019 2ndary to LLL pneumonia and MSSA bacteremia MSSA bacteremia 03/17/2019 Impaired mobility and ADLs 05/12/2019 Thrombocytopenia ([facility]) 03/17/2019 Anemia 03/17/2019 4 units PBRCs an d 1 unit platelets in total during hospital stay GI bleed 03/2019 Encephalopathy acute 03/17/2019 Fever 03/17/2019 Family History Medical History Relation Comments Stroke Father Cerebrovascular disease Stroke Mother Cerebrovascular disease Relation Status Comments Father Mother Social History Tobacco Use Types Packs/Day Years Used Date Smoking Tobacco: Former Cigarettes 1.5 43.7 1 976 - 03/13/2019 Smokeless Tobacco: Never Comments: Alcohol Use Standard Drinks/Week Comments Yes 4 (1 standard drink = 0.6 oz pur e alcohol) PHQ-2 Answer Date Recorded PHQ-2 Score 0 02/03/2020 Interpersonal Safety Answer Date Record ed Physically Hurt Never 02/03/2020 Verbally Threaten Not on file 02/03/2020 Sex and Gender Information Value Date Recorded Sex Assigned at Not on file Legal Sex Male 18:41 EST Gender Identity Male 08/29/2019 11:36 EST Sexual Orientation Not on file Obstetrics History Last Filed Vital Signs Vital Sign Reading Time Taken Comments Blood Pressure 120/76 09/27/2019 1305 EDT Pulse 72 09/27/2019 1305 EDT Temperature 37.1 ??C (98.8 ??F) 09/27/2019 1305 EDT Respiratory Rate 16 09/05/2019 1715 EST Oxygen Saturation 96% 09/27/2019 1305 EDT Inhaled Oxygen Concentration - - Weight 64.9 kg (143 lb 1.3 oz) 09/05/[address] Height 180.3 cm (5' 11) 08/30/2019 1349 EST Body Mass Index 19.96 08/30/2019 1349 EST Plan of Treatment Health Maintenance Due Date Last Done Comments Fall Risk Screening 2019 COVID-19 Vaccine (2023- season) 2024 RSV Immunization ( o r 60+ Years) (1 - 1-dose 75+ series) 2029 Hepatitis C Screen Completed 12/19/2020, 0 09/15/2020, 09/15/2020 Procedures Procedure Name Priority Date/Time Associated Diagnosis Comments HCV RNA DETECT QUANT Routine 12/19/2020 13:42 EDT from Last 3 Months or Most Recently Relevant to Health Maintenance Results * HCV RNA DETECT QUANT (12/19/2020 13:42 EDT) HCV RNA Qualitative Undetected Undetected 12/22/2020 15:23 EDT [facility] Blood VENOUS BLOOD / Unknown 12/19/2020 13:42 EDT 12/21/2020 16:03 EDT Narrative [facility] - 12/22/2020 15:23 EDT The quantification range of this assay is 15 IU/mL to 100,000,000 IU/mL. ??Testing was performed on the ZHANE Ampliprep/ZHANE TaqMan HCV v2.0 ([employer] us Provider Outr Resulting Lab CHEMISTRY & BLOOD GA S ORDERABLES Final Result [facility] [address] [place] [address] from Last 3 Months or Most Recently Relevant to Health Maintenance Insurance [employer] MEDICARE Advance Directives For more information, please contact: [phone] Documents on File Type Date Recorded Patient Night Custodian Expl anation COLST/MOLST 05/23/2019 12:04 DNR/COLST Advance Directive 04/06/2019 13:14 General Power of [id number] * Limitation of Treatment (Latest Code Status on File) Date Activated Date Inactivated Comments 04/23/2019 13:51 05/12/2019 18:13 Question Answer Comments CPR for spontaneous arrest: Withhold CPR for arrest during procedure: Withhold Intubation/Mechanical ventilation: Provide Medications for arrhythmia: Provide Reason for Decision Includes: 1-Fully in formed patient believes the expected burdens of treatment are greater Who Participated in the Discussion? Patient The Goals of Further Therapy are: 3-Reli ef of Symptoms, Comfort and Dignity * Limitation of Treatment Date Activated Date Inactivated Comments 04/23/2019 13:51 04/23/2019 13:51 Question Answer Comments CPR for spontaneous arrest: Withhold CPR for arrest during procedure: Withhold Intubation/Mechanical ventilation: Provide Medications for arrhythmia: Provide Reason for Decision Includes: 3-Fully In formed surrogate believes this is what the patient would choose Surrogate is: Surrogate is a n interested individual (e.g.; spouse, parent, adult relative, clergy; or other adult personally familiar with patient's goals & values who has exhibited care & concern). NOTE: [place] Statute has no priority of assignment. I confirm Surrogate is NOT: Surrogate is NOT the patient's healthcare provider; or the brewing technician, catalyst manufacturing operator, employee of a residential care facility, or correctional facility where the patient resides-unless related to the patient. I confirm Who Participated in the Discussion? Family (plea se specify) Specify family: Partner; Lawanda The Goals of Further Therapy are: 2-Life Prolongation but w/o Burdensome Treatment Modalities * Limitation of Treatment Date Activated Date Inactivated Comments 03/20/2019 21:13 04/23/2019 13:50 Question Answer Comments CPR for spontaneous arrest: Withhold CPR for arrest during procedure: Withhold Intubation/Mechanical ventilation: Provide Medications for arrhythmia: Provide Reason for Decision Includes: 3-Fully In formed surrogate believes this is what the patient would choose Surrogate is: Surrogate is a n interested individual (e.g.; spouse, parent, adult relative, clergy; or other adult personally familiar with patient's goals & values who has exhibited care & concern). NOTE: [place] Statute has no priority of assignment. I confirm Surrogate is NOT: Surrogate is NOT the patient's healthcare provider; or the brewing technician, catalyst manufacturing operator, employee of a residential care facility, or correctional facility where the patient resides-unless related to the patient. I confirm Who Participated in the Discussion? Family (plea se specify) Specify family: Partner; Lawanda The Goals of Further Therapy are: 2-Life Prolongation but w/o Burdensome Treatment Modalities * Full Code Date Activated Date Inactivated Comments 03/17/2019 9:03 03/20/2019 21:13 Question Answer Comments Reason for decision includes: Full code consistent with overall plan of care Who participated in the discussion? Not Discusse d Care Teams Patternmaker Grader Relationship Specialty Start Date End Date Maile Payan FNP [address] [place] [phone] PCP - General 05/11/19
--- OUTSIDE RECORDS SUMMARY | 2024-07-11 18:23 | XMS_ITS | Encounter Summary ---
Author Organization [facility] Address [address] [place] [address] Care Team Providers Care Core Assembly Supervisor Name Role Phone Maile Payan RIDER TICKET WORKER Primary Care Provider [phone] Encounter Details Date Type Department Care Team (Late st Contact Info) Description 09/15/2020 Lab Requisition [facility] Pathology & Laboratory Medicine - [address] [address] Outr Resulting Lab, Provider Social History Tobacco Use Types Packs/Day Years [...] on file documented as of this encounter Functional Status * Are you [...] Date of Assessment Author Yes 04/23/2019 13:39 EDT Jori Winters RN * Do you have difficulty dressing or bathing? (5 years old or older) Answer Date of Assessment Author Yes 04/23/2019 13:39 EDT Jori Winters RN * Because of a physical, mental, [...] Lucy Gavin RN documented in this encounter Plan of Treatment Not on file documented as of this encounter Procedures Procedure Name Priority Date/Time Associated Diagnosis Comments HCV RNA DETECT QUANT Today 09/15/2020 10:40 EDT HEPATITIS C AB W REFLEX TO HCV RNA BY PCR Routine 09/15/2020 10:40 EDT HEPATITIS B SURFACE ANTIBODY Routine 09/15/2020 10:40 EDT PSA TOTAL, DIAGNOSTIC Routine 09/15/2020 10:40 EDT documented in this encounter Results * (ABNORMAL) HCV RNA DETECT QUANT (09/15/2020 10:40 EDT) HCV RNA Qualitative Detected( A) Undetected 09/17/2020 14:39 EDT [facility] HCV RNA Quantitative 1,003,901 (H) Undetected IU/mL 09/17/2020 14:39 EDT [facility] Blood VENOUS BLOOD / Unknown 09/15/2020 10:40 EDT 09/15/2020 20:51 EDT Narrative [facility] - 09/17/2020 14:39 EDT The quantification range of this assay is 15 IU/mL to 100,000,000 IU/mL. ??Testing was performed on the ZHANE Ampliprep/ZHANE TaqMan HCV v2.0 ([employer] us Provider Outr Resulting Lab CHEMISTRY & BLOOD GA S ORDERABLES Final Result Performing Organization Address [facility] Co de Phone Number [facility] [address] [place] [address] * HEPATITIS B SURFACE ANTIBODY (09/15/2020 10:40 EDT) Hep B Surface Ab, Quantitative <3.1 See Note mIU/mL 09/16/2020 9:48 EDT [facility] Comment: Reference Range for Hep B Surface Ab, Quant: Positive: >= 10.0 mIU/mL Negative: ??< 10.0 mIU/mL Patient is presumed to not be immune to infection with Hepatitis B Virus. Hep B Surface Ab, Qualitative Negative See Note 09/16/2020 9:48 EDT [facility] Comment: Reference Range for Hep B Surface Ab, Qual: Unvaccinated: ??Negative Vaccinated: ??Positive Blood VENOUS BLOOD / Unknown 09/15/2020 10:40 EDT 09/15/2020 20:51 EDT Provider Outr Resulting Lab CHEMISTRY & BLOOD GA S ORDERABLES Final Result Performing Organization Address [facility] de Phone Number [facility] [address] [place] [address] * PSA TOTAL, DIAGNOSTIC (09/15/2020 10:40 EDT) PSA 1.8 0.0 - 4.5 ng/mL 09/15/2020 22:38 EDT [facility] Blood VENOUS BLOOD / Unknown 09/15/2020 10:40 EDT 09/15/2020 20:51 EDT Narrative [facility] - 09/15/2020 22:38 EDT NOTE: Serum PSA concentration should not be interpreted as absolute evidence for the presence or absence of malignant disease. Assayed on Siemens Zill[employer]te[employer] XPT using chemiluminescent technology.??Values obtained by using different assay methods cannot be used interchangeably. us Provider Outr Resulting Lab CHEMISTRY & BLOOD GA S ORDERABLES Final Result Performing Organization Address City/[facility]/ZIP Co de Phone Number [facility] [address] [place] [address] * (ABNORMAL) HEPATITIS C AB W REFLEX TO HCV RNA BY PCR (09/15/2020 10:40 EDT) Hep C Antibody Reactive(A ) Negative 09/16/2020 11:55 EDT [facility] Comment: Supplemental testing for HCV RNA is ordered to rule out active HCV infection. Blood VENOUS BLOOD / Unknown 09/15/2020 10:40 EDT 09/15/2020 20:51 EDT us Provider Outr Resulting Lab CHEMISTRY & BLOOD GA S ORDERABLES Final Result Performing Organization Address [facility] Co de Phone Number [facility] [address] [place] [address] documented in this encounter Visit Diagnoses Not on filedocumented in this encounter Care Teams Core Assembly Supervisor Relationship Specialty Start Date End Date Maile Payan FNP [address] [place] [phone] PCP - General 05/11/19 documented as of this encounter
--- OUTSIDE RECORDS SUMMARY | 2024-07-11 18:23 | XMS_ITS ---
Author Organization Unknown Address [address] [place] [phone] Phone Care Team Providers Care Ethylene Plant Operator Name Role Phone MARLIN Parr Attending Unavailable Results CT LDCT FOR LUNG CA SCREEN - Completed: 03/30/2024 13:16 LOINC: [facility] [place], [place] [address] RADIOLOGY CONTROL CLERK REPAIRS REPORT Patient Name: SHIRLENE SWANN MRN: Sex: : Age: [id number] M 1955 69 Account: Accession: Admit: StayType: [id number] 03/30/2024 O Ordered: Order ID: Submitted: Ordering Provider: 03/30/2024 12:55 [id number] NLS BETHANY ISAAC Completed: Technologist: Resulted: 03/30/2024 13:07 PAIGE 04/25/2024 11:53 ADDENDUM #1 CLINICAL HISTORY: Current cigarette smoker, 30 pack/year. Thank you for letting us participate in the care of this patient. If you are a health care provider and have any questions regarding this report, please contact the number below. For patients who have questions please contact the health care center manager that requested your imaging first. Electronically signed by: Frank Cox MD [facility] ([phone]), at 04/25/2024 11:53 EXAMINATION: CT LDCT FOR LUNG CA SCREEN [...] in the care of this patient. If you are a health care provider and have any questions regarding this report, please contact the number below. For patients who have questions please contact the health care center manager that requested your imaging first. Electronically signed by: Frank Cox MD [facility] ([phone]), at 04/09/2024 11:42 AM -- XR LS SPINE 4V OR MORE - Com pleted: 03/30/2024 14:16 LOINC: [facility] [place], [place] [address] RADIOLOGY CONTROL CLERK REPAIRS REPORT Patient Name: SHIRLENE SWANN MRN: Sex: : Age: [id number] M 1955 69 Account: Accession: Admit: StayType: [id number] 03/30/2024 O Ordered: Order ID: Submitted: Ordering Provider: 03/30/2024 13:17 [id number] BETHANY REYES Completed: Technologist: Resulted: 03/30/2024 13:52 ALISON 03/31/2024 23:59 EXAMINATION: XR LS SPINE 4V OR MORE CLINICAL HISTORY: Reason for Spine: PARESTHESIA Add'l Info: TECHNIQUE: 5 views of the lumbar spine COMPARISON: None FINDINGS: 5 nonrib-bearing lumbar vertebral bodies. Dextroscoliosis at the thoracolumbar junction. No spinal listhesis. Vertebral body heights are preserved Advanced multilevel disc degeneration with disc height loss and endplate osteophytes most pronounced at L5-S1. Facet arthropathy from level L3 to below. Survey: Aortic and iliac vascular calcifications. The partially included bases are clear. IMPRESSION: 1. Diffuse lumbar spondylosis. 2. Lower lumbar facet arthropathy 3. No acute osseous finding. Thank you for letting us participate in the care of this patient. If you are a health care provider and have any questions regarding this report, please contact the number below. For patients who have questions please contact the health care center manager that requested your imaging first. Social History Type Status Start Date End Date Code Code Syst em Smoking History Current some day smoker [id number] SNOMED CT Sex Male Assessment You had [...] Code Code System ACUTE RENAL FAILURE active 96365454 SNOMED-CT PNEUMONIA active 025941079 SNOMED-CT LIVER FUNCTION TESTS ABNORMAL active 507852779 SNOMED-CT Allergies and Adverse Reactions Allergy Substance Reaction Severity Start Date Concern Status Co de Code System No Known Drug Allergies Active 378171608 SNOMED-CT Plan of Treatment CT CHEST W/O CONTRAST 03/30/2024 US ABDOMEN LIMITED 1 ORGAN 02/09/2023 CT CHEST W/O CONTRAST 02/09/2023 LAB DRAW 15MIN 08/24/2021 PRE-OP COVID-19 TESTING 07/27/2021 Encounters Encounter Diagnosis Start Date Code Code Sys tem Paresthesia 03/30/2024 86679609 SNOMED-CT Personal Care Team Section Performer Name Performer Role Active Date Inactive Da te Imaging Narrative Notes [facility] [place] [address] RADIOLOGY CONTROL CLERK REPAIRS REPORT Patient Name: SHIRLENE SWANN MRN: Sex: : Age: [id number] M 1955 69 Account: Accession: Admit: StayType: [id number] 03/30/2024 O Ordered: Order ID: Submitted: Ordering Provider: 03/30/2024 12:55 [id number] BETHANY SINGH Completed: Technologist: Resulted: 03/30/2024 13:07 PAIGE 04/25/2024 11:53 ADDENDUM #1 CLINICAL HISTORY: Current cigarette smoker, 30 pack/year. Thank you for letting us participate in the care of this patient. If you are a health care provider and have any questions regarding this report, please contact the number below. For patients who have questions please contact the health care center manager that requested your imaging first. Electronically signed by: Frank Cox MD [facility] ([phone]), at 04/25/2024 11:53 EXAMINATION: CT LDCT FOR LUNG CA SCREEN [...] in the care of this patient. If you are a health care provider and have any questions regarding this report, please contact the number below. For patients who have questions please contact the health care center manager that requested your imaging first. Electronically signed by: Frank Cox MD [facility] ([phone]), at 04/09/2024 11:42 AM --
--- OUTSIDE RECORDS SUMMARY | 2024-07-11 18:23 | XMS_ITS | Encounter Summary ---
Author Organization [facility] Address [address] [place] [address] Care Team Providers Care Landscape Foreman Name Role Phone Maile Payan ELECTRICAL TRANSMISSION ENGINEER Primary Care Provider [phone] Reason for Visit * Reason Onset Date Comments Surgery Scheduling 08/20/2019 Encounter Details Date Type Department Care Team (Late st Contact Info) Description 08/20/2019 Telephone [facility] Acute Care Surgery - [facility] [address] [place] [address] Melba Braswell, loader operator supervisor Scheduling Social History Tobacco Use Types Packs/Day Years Used Date Smoking Tobacco: Former Cigarettes Q uit: 03/13/2019 Smokeless Tobacco: Never Comments: Alcohol Use Standard Drinks/Week Comments Yes 2 (1 standard drink = 0.6 oz pur [...] of Assessment Author No 04/23/2019 13:39 Jori Tagn RN * Are you blind or do [...] Lucy Gavin RN documented in this encounter Miscellaneous Notes * Telephone Encounter - Melba Braswell RN - 08/20/2019 [id number] EST Per face to face conversation with Dr. Carpio, he will do the trach closure on 09/05/2019 for patient. He will require a H & P by his PCP and have it faxed to us marco. We will call 2 days prior tosurgery with confirmation date/time. Patient aware and will call prn. documented in this encounter Plan of Treatment Not on file documented as of this encounter Visit Diagnoses Not on filedocumented in this encounter Care Teams Landscape Foreman Relationship Specialty Start Date End Date Maile Payan FNP [address] [place] [phone] PCP - General 05/11/19 documented as of this encounter
--- OUTSIDE RECORDS SUMMARY | 2024-07-11 18:23 | XMS_ITS | Encounter Summary ---
Author Organization [facility] Address [address] [place] [address] Care Team Providers Care Interpreter And Translator Name Role Phone Maile Paayn BAGEL MAKER Primary Care Provider [phone] Encounter Details Date Type Department Care Team (Late st Contact Info) Description 08/21/2019 Prep for Procedure S[facility] TRAUMA [address] [place] [address] Owen Carpio MD PhD Social History Tobacco Use Types Packs/Day Years [...] of Assessment Author Yes 04/23/2019 13:39 Jori Tang, RN * Because of a physical, mental, [...] Lucy Gavin RN documented in this encounter H&P Notes * Owen Carpio MD - 08/21/2019 1706 EST For tracheostomy fistula site closure. documented in this encounter Plan of Treatment Not on file documented as of this encounter Visit Diagnoses Not on filedocumented in this encounter Orders Case Request Count Last Ordered Date First Orde red Date CASE REQUEST OPERATING ROOM 1 08/21/2019 documented in this encounter Care Teams Interpreter And Translator Relationship Specialty Start Date End Date Maile Payan FNP [address] [place] [phone] PCP - General 05/11/19 documented as of this encounter
--- OUTSIDE RECORDS SUMMARY | 2024-07-11 18:23 | XMS_ITS | Encounter Summary ---
Author Organization [facility] Address [address] [place] [address] Care Team Providers Care Pie Dough Roller Name Role Phone Maile Payan SCREEN MAKING TECHNICIAN Primary Care Provider [phone] Encounter Details Date Type Department Care Team (Late st Contact Info) Description 12/20/2020 Lab Requisition [facility] Pathology & Laboratory Medicine - [address] [address] Outr Resulting Lab, Provider Social History Tobacco [...] RNA DETECT QUANT Routine 12/19/2020 13:42 EDT documented in this encounter Results * HCV RNA DETECT QUANT (12/19/2020 13:42 EDT) HCV RNA Qualitative Undetected Undetected 12/22/2020 15:23 EDT [facility] Blood VENOUS BLOOD / Unknown 12/19/2020 13:42 EDT 12/21/2020 16:03 EDT Narrative [facility] - 12/22/2020 15:23 EDT The quantification range of this assay is 15 IU/mL to 100,000,000 IU/mL. ??Testing was performed on the ZHANE Ampliprep/ZHANE TaqMan HCV v2.0 ([employer] us Provider Outr Resulting Lab CHEMISTRY & BLOOD GA S ORDERABLES Final Result [facility] [address] [place] [address] documented in this encounter Visit Diagnoses Not on filedocumented in this encounter Care Teams Pie Dough Roller Relationship Specialty Start Date End Date Maile Payan FNP [address] [place] [address] PCP - General 05/11/19 documented as of this encounter
--- OUTSIDE RECORDS SUMMARY | 2024-07-11 18:23 | XMS_ITS | Encounter Summary ---
Author Organization [facility] Address [address] [place] [address] Care Team Providers Care Color Dipper Name Role Phone Maile Payan SUPERVISOR OF COMMUNICATIONS Primary Care Provider [phone] Reason for Visit * Reason Onset Date Comments Hospital Discharge Follow Up 09/07/2019 Encounter Details Date Type Department Care Team (Late st Contact Info) Description 09/07/2019 Telephone [facility] Acute Care Surgery - [facility] [address] [place] [address] Melba Braswell RN Hospital Discharge Follow Up Social History Tobacco Use Types Packs/Day Years [...] Telephone Encounter - Melba Braswell RN - 09/07/2019 1311 EST Images from the original note were not included. ACS/Trauma/Burn Hospital Discharge Call Patient Name: Anil Bryan , : 1955 Admission Date: 09/05/2019 Date of Discharge: 09/05/2019 Admission Diagnosis: acquired tracheal fistula Surgeon/Attending: Dr. Carpio Procedure Date: 09/05/19 Type of Procedure: excision of tracheal fistula tract Trauma: No Wound Incisions: Yes healing well Comments: still air coming out if he coughs or sneezes Recovery at Home: Fevers since home greater than 101.5?:No Pain: No 0 (Not At All) relaxation Pain Management: No Taking: BM's & Voiding Issues:No Normal Comments: Bowel Meds: No Comments: Issues with ADL's: No Assistive Device: No Eating & Drinking ok?: Yes Comments: Sleeping ok?:Yes Any Other Questions or Concerns: it's comin around Hospital Discharge Follow Up Appointment: 09/25/2019 @ 2 pm with DONNA Lombardi documented in this encounter Plan of Treatment Not on file documented as of this encounter Visit Diagnoses Not on filedocumented in this encounter Care Teams Color Dipper Relationship Specialty Start Date End Date Maile Payan FNP [address] [place] [phone] PCP - General 05/11/19 documented as of this encounter
--- OUTSIDE RECORDS SUMMARY | 2024-07-11 18:23 | XMS_ITS | Encounter Summary ---
Author Organization [facility] Address [address] [place] [address] Care Team Providers Care Airplane Flight Attendant Name Role Phone Maile Payan Keshav BARREL CUTTER Primary Care Provider [phone] Reason for Visit * Auth/Cert Specialty Diagnoses / [facility] To Contact Diagnoses Acquired tracheal fistula Procedures OK SURG CLOSURE TRACH/FISTULA SURG CLOSURE TRACHEOSTOMY/FISTULA;W/OPLASTIC REPA Referral ID Status Reason Start Date Expiration Date Visits Re quested Visits Authorized [id number] 1 1 Encounter Details Date Type Department Care Team (Late st Contact Info) Description 09/05/2019 15:29 EST Anesthesia Event [facility] [place] [address] [place], [place] [id number] Roosevelt Vance MD [address] [phone] Ingrid Ryan AA [address] [phone] Anesthesia Record Procedure Summary Procedure Name Responsible Anesthesiologist Anesthesia Start Time Anesthesia Stop Time SURG CLOSURE TRACHEOSTOMY/FISTUL A;W/OPLASTIC REPA (Throat) Roosevelt Vance MD 09/05/19 1529 09/05/19 1619 Events Date Time Event Comment 09/05/2019 1529 An Start The patient was re-evaluated immediately before moderate or deep sedation use, before anesthesia induction, or before the anesthesia procedure. 1529 An Start Data 1530 Anesthesia Ready 1615 an stop data 1618 Handoff to RN I completed my handoff to the receiving nurse during which we: 1. Identified the patient 2. Identified the responsible provider 3. Reviewed the pertinent medical history 4. Discussed the surgical course 5. Reviewed intra-op anesthesia management and issues during anesthesia 6. Set expectations for post-procedure period 7. Allowed opportunity for questions and acknowledgement of understanding. 1619 An Stop Meds Name Total fentanyl citrate (PF) injection 75 mcg glycopyrrolate (ROBINUL) injection 0.1 m g midazolam (VERSED) injection 1 mg/mL 2 m g ceFAZolin (ANCEF) syringe 2 g 2 g lactated ringers (LR) infusion 600 mL * Agents Name O2 N2O Air Aux O2 flow * Blood No blood administrations on file. Lines, Drains, and Airways Type Details Placement Removal Pressure Injury 03/19/19; 0930; deep tissue injury noted to coccyx 03/19/19 0930 by Meenakshi Moscoso RN Wound 09/05/19; 1336; Pres sure inj; Sacrum, Coccyx; Y 09/05/19 1336 by Sangeeta Ho Wound 09/05/19; 1608; Inci chad (Surgical closure of tracheostomy); Midline; Neck; Surgical closure of tracheostomy ; Y; Full thickness 09/05/19 1608 by Taylor Corcoran RN Peripheral IV 09/05/19; 1302; B Br aun Introcan; Right; Forearm; Inserted by RN; 1; None; 3.15% Chlorhexidine with IPA; 09/05/19; 1733; Discharged; No complications, Catheter intact, Dressing applied 09/05/19 1302 by Kimberly Pierce RN 09/05/19 1733 by Jess Bhandari RN documented in this encounter Social History Tobacco Use Types Packs/Day Years [...] Lucy Gavin RN documented in this encounter OR Notes * Anesthesia Postprocedure Evaluation - Ingrid Bullard AA - 09/05/2019 1619 EST Patient: Anil Larose Vitals Vital signs were reviewed with the recovery nurse and are available in the Epic flowsheets. Relevant recent vitals: vss Last Pain Score - Type of Anesthesia - MAC Anesthesia Post Evaluation Post-procedure vitals reviewed and are stable. Level of consciousness: alert and oriented Temperature status: normothermia Respiratory status: airway patent Cardiovascular status: acceptable Hydration status: adequate Nausea/Vomiting: none Pain management: adequate Post-Op Assessment: patient tolerated procedure well with no complications Patient participation: able to participate Disposition: outpatient/home Anesthesia Complications: No apparent anesthesia complications * Anesthesia Preprocedure Evaluation - Roosevelt Vance MD - 09/05/2019 1351 EST Anesthesia Preprocedure Evaluation Patient Medical History, including Anesthesia History reviewed. Chart and Nursing Notes reviewed, including NPO status and Medication History. Additional ROS/History Findings: No Known Allergies Review of Systems Past Medical History: Diagnosis Date ??? A-fib ([facility]) 03/17/2019 w/ RVR; [facility] trans to [facility] ??? Acute respiratory failure with hypoxia ([facility]) 03/17/2019 ??? SIRISHA (acute kidney injury) ([facility]) with acute respiratory failure with hypoxia ??? Anemia 03/17/2019 4 units PBRCs and 1 unit platelets in total during hospital stay ??? ARDS (adult respiratory distress syndrome) ([facility]) 03/17/2019 ??? COPD (chronic obstructive pulmonary disease) ([facility]) 03/17/2019 ??? Diarrhea 02/27/2019 ??? Encephalopathy acute 03/17/2019 ??? Fever 03/17/2019 ??? GI bleed 03/2019 ??? Hemodynamic instability 03/17/2019 ??? Impaired mobility and ADLs 05/12/2019 ??? Loss of appetite 02/27/2019 ??? Malaise and fatigue 02/27/2019 ??? MSSA bacteremia 03/17/2019 ??? Pneumonia 03/17/2019 ??? Renal failure, acute ([facility]) 03/17/2019 ??? Sepsis due to methicillin susceptible Staphylococcus aureus (MSSA) with acute hypoxic respiratory failure and septic shock ([facility]) 03/17/2019 2ndary to LLL pneumonia and MSSA bacteremia ??? Thrombocytopenia ([facility]) 03/17/2019 ??? 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 Tracheostomy in place ([facility]) 03/28/2019 decannulated 04/20/2019 ??? Volume overload 03/17/2019 ??? Weakness generalized 02/27/2019 Relevant Problems CARDIOVASCULAR (+) Atrial fibrillation with RVR ([facility]) Physical Exam Airway Mallampati: III TM distance: <3 FB Neck ROM: full Cardiovascular Rhythm: regular Dental Pulmonary Breath sounds clear to auscultation Abdominal Anesthesia Plan ASA 2 Anesthesia Type - MAC Block for post-op pain? No Anesthesia plan and risks discussed. Informed consent obtained from patient. Code status discussed? No H&P not reviewed PAT Note (Notes from 08/06/19 through 09/05/19) No notes of this type exist for this encounter. documented in this encounter Plan of Treatment Not on file documented as of this encounter Visit Diagnoses Not on filedocumented in this encounter Administered Medications Inactive Administered Medications - up to 3 most recent administrations Medication Order MAR Action Action Date Dose Rate Site ceFAZolin (ANCEF) syringe 2 g 2 g, intravenous, Administer over 10 Minutes, PRE-OP ONCE, 1 dose, On Tue09/05/19 at 1415, Routine Given 09/05/2019 15:39 EST 2 g fentaNYL citrate (PF) injection intravenous, PRN, Starting on Tue09/05/19 at 1538, Until Tue09/05/19 at 1619, Routine, Anesthesia Intraprocedure Given 09/05/2019 15:53 EST 25 mcg Given 09/05/2019 15:47 EST 25 mcg Given 09/05/2019 15:38 EST 25 mcg glycopyrrolate (ROBINUL) injection intravenous, PRN, Starting on Tue09/05/19 at 1556, Until Tue09/05/19 at 1619, Routine, Anesthesia Intraprocedure Given 09/05/2019 15:56 EST 0.1 mg lactated ringers (LR) infusion at 25 mL/hr, intravenous, CONTINUOUS, Starting on Tue09/05/19 at 1345, Until Tue09/05/19 at 1945, Routine, Preprocedure Continued by Anesthesia 09/05/2019 15:29 EST New Bag 09/05/2019 13:56 EST 25 mL/hr midazolam (PF) (VERSED) injection intravenous, PRN, Starting on Tue09/05/19 at 1531, Until Tue09/05/19 at 1619, Routine, Anesthesia Intraprocedure Given 09/05/2019 15:32 EST 1 mg Given 09/05/2019 15:30 EST 1 mg documented in this encounter Care Teams Airplane Flight Attendant Relationship Specialty Start Date End Date Maile Payan FNP [address] [place] [phone] PCP - General 05/11/19 documented as of this encounter
--- OUTSIDE RECORDS SUMMARY | 2024-07-11 18:23 | XMS_ITS | Encounter Summary ---
Author Organization [facility] Address [address] [place] [address] Care Team Providers Care Continuous Miner Operator Name Role Phone Maile PayanP Primary Care Provider [phone] Reason for Visit * Reason Comments Post-OP Follow Up Here for follow up. * Follow Up (Routine) - Order Cancelled Specialty Diagnoses / Procedures Referred By Judy morgan Referred To Contact Trauma Surgery Diagnoses Acquired tracheal fistula Gemma Romero MD Phone: tel: fax: [facility] Surgery [address] [address] Phone: tel: fax: Referral ID Status Reason Start Date Expiration Date Visits Requested Visits Authorized [id number] Order Cancelled Specialty Services Required 09/05/2019 1 1 Encounter Details Date Type Department Care Team (Late st Contact Info) Description 09/27/2019 13:00 EDT Post-op Visit [facility] Surgery [address] [phone] Trauma Surgery, Ep5 Acs Acquired tracheal fistula (Primary Dx) Social History Tobacco Use Types Packs/Day Years [...] 11:36 EST Sexual Orientation Not on file COVID-19 Exposure Response Date Recorded In the last month, have you been in contact with someone who was confirmed or suspected to have Coronavirus / COVID-19? No / Unsure 09/26/2019 14:26 EDT documented as of this encounter Last Filed Vital Signs Vital Sign Reading Time Taken Comments Blood Pressure 120/76 09/27/2019 1305 EDT Pulse 72 09/27/2019 1305 EDT Temperature 37.1 ??C (98.8 ??F) 09/27/2019 1305 EDT Respiratory Rate - - Oxygen Saturation 96% 09/27/2019 1305 EDT Inhaled Oxygen Concentration - - Weight - - Height - - Body Mass Index - - documented in this encounter Functional Status * Are you deaf or do you have serious difficulty hearing? Answer Date of Assessment Author No 04/23/2019 13:39 Jori Tang RN * Are you blind or do you have serious difficulty seeing, even when wearing glasses? Answer Date of Assessment Author No 04/23/2019 13:39 EDJori Cleveland RN * Do you have serious difficulty [...] Lucy Gavin RN documented in this encounter Progress Notes * Juan Gonzalez PA-C - 09/27/2019 1300 EDT CC: Chief Complaint Patient presents with ??? Post-OP Follow Up Here for follow up. Anil Bryan present to [facility] follow up clinic after undergoing tracheal scar revision on 09/05/19. Post-op the patient recovered well. Anil Bryan is tolerating a regular diet well. Bowel function has returned to baseline. Anil Bryan states that they are no longer in pain. Leaked air for ~1 wk but has since stopped. No c/o's BP 120/76 (BP Cuff Location: Left arm, BP Patient Position: Sitting, BP Cuff Sizes: Adult, large) Pulse 72 Temp 37.1 ??C (98.8 ??F) (Temporal) SpO2 96% Physical exam: Gen: Alert and oriented x3 Pulm: speaking in full and complete sentence without any obvious respiratory distress. Tracheal site intact no air leaking A: recovering well from surgery P: Resume normal activity No dietary restrictions Wound care as discussed. Follow up PRN. Juan Gonzalez PA-C 09/27/2019 13:11 documented in this encounter Plan of Treatment Not on file documented as of this encounter Visit Diagnoses Diagnosis Acquired tracheal fistula- Primary documented in this encounter Care Teams Continuous Miner Operator Relationship Specialty Start Date End Date Maile Payan FNP [address] [place] [phone] PCP - General 05/11/19 documented as of this encounter
--- OUTSIDE RECORDS SUMMARY | 2024-07-11 18:23 | XMS_ITS | Encounter Summary ---
Author Organization [facility] Address [address] [place] [address] Care Team Providers Care Manager Investment Banking Name Role Phone Bethany Payan Primary Care Provider [phone] Reason for Visit * Reason Comments Follow-up * Consult (Routine) - Closed Specialty Diagnoses / Procedures Referred By Contact Referred To Contact Gastroenterology and Hepatology Diagnoses Acute duodenal ulcer with hemorrhage Bethany Payan FNP [address] [place] [address] Phone: tel:[phone] fax:[phone] [facility] Gastroenterology [address] [address] Phone: tel: fax: Referral ID Status Reason Start Date Expiration Date Visits Re quested Visits Authorized [id number] Closed 1 1 Encounter Details Date Type Department Care Team (Late st Contact Info) Description 02/20/2020 10:40 EDT Telemedicine [facility] Gastroenterology [address] [address] Jeyson Castillo MD [address] [place] [address], [address] [place] [address] PUD (peptic ulcer disease) (Primary Dx) Social History Tobacco Use Types [...] documented in this encounter Progress Notes * Jeyson Castillo MD - 02/20/2020 1040 EDT 02/20/2020 FOLLOW-UP PATIENT: Anil Bryan CHIEF COMPLAINT No chief complaint on file. HISTORY OF PRESENT ILLNESS Mr. Bryan is seen by telephone call due to COVID 19 restrictions. The concept of ???Telemedicine?? has been described to the patient.? Patient has been informed of the anticipated benefits and possible risks.? Patient understands the information provided regardingtelemedicine, has had the opportunity to ask questions about this information, and all questions have been answered to patient???s satisfaction. Patient consents for the use of telemedicine in his/her medical care and authorizes the transmission of any relevant medical information to providers and their staff involved in patient???s medical or mental health care. Mr. Bryan had originally been seen in consultation during a prolonged hospital stay for respiratory failure last fall. During his stay he had a drop in Hgb after being anticoagulated for concern forPE. Had bloody output from NGT and urgent endoscopy was performed showing multiple, punctate and clean based ulcers in the stomach and a large ulcer with a visible vessel in the duodenal bulb -- treated successfully with endoscopic clip. 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 He eventually made a full recovery after a prolonged hospital course and rehabstay. Interval history: Feels well. No abdominal pain. No dark stools or vomiting. Takes NSAIDs very rarely. Taking pantoprazole daily. No other issues. MEDICAL HISTORY Past Medical History: Diagnosis Date ??? A-fib ([facility]) 03/17/2019 w/ RVR; [facility] to [facility] ??? Acute respiratory failure with hypoxia ([facility]) 03/17/2019 ??? SIRISHA (acute kidney injury) ([facility]) with acute respiratory failure with hypoxia ??? Anemia 03/17/2019 4 units PBRCs and 1 unit platelets in total during hospital stay ??? ARDS (adult respiratory distress syndrome) ([facility]) 03/17/2019 ??? COPD (chronic obstructive pulmonary disease) ([facility]) 03/17/2019 ??? Diarrhea 02/27/2019 ??? Encephalopathy acute 03/17/2019 ??? Fever 03/17/2019 ??? GI bleed 03/2019 ??? Hemodynamic instability 03/17/2019 ??? Impaired mobility and ADLs 05/12/2019 ??? Loss of appetite 02/27/2019 ??? Malaise and fatigue 02/27/2019 ??? MSSA bacteremia 03/17/2019 ??? Pneumonia 03/17/2019 ??? Renal failure, acute ([facility]) 03/17/2019 ??? Sepsis due to methicillin susceptible Staphylococcus aureus (MSSA) with acute hypoxic respiratory failure and septic shock ([facility]) 03/17/2019 2ndary to LLL pneumonia and MSSA bacteremia ??? Thrombocytopenia ([facility]) 03/17/2019 ??? 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 Tracheostomy in place ([facility]) 03/28/2019 decannulated 04/20/2019 ??? Volume overload 03/17/2019 ??? Weakness generalized 02/27/2019 SURGICAL HISTORY Past Surgical History: Procedure Laterality Date ??? TRACHEOSTOMY 03/28/2019 d/t pneumonia and ARDS; Dr. Castro; [facility] ??? WISDOM TOOTH EXTRACTION 1971 ??? WRIST SURGERY Right 1974 bone spur removed FAMILY HISTORY Family History Problem Relation Age of Onset ??? Stroke Mother Cerebrovascular disease ??? Stroke Father Cerebrovascular disease SOCIAL HISTORY Patient reports that he quit smoking about 11 months ago. His smoking use included cigarettes. He started smoking about 44 years ago. He smoked 1.50 packs per day. He has never used smokeless tobacco. He reports current alcohol use of about 4.0 standard drinks of alcohol per week. He reports current drug use. Drug: Marijuana. MEDICATIONS Current Outpatient Medications: ??? acetaminophen (TYLENOL) 325 mg tablet, Take 2 Tabs by mouth every 4 hours as needed for Pain., Disp: , Rfl: ??? cholecalciferol, Vitamin D3, 1,000 unit tablet, Take 1 Tab by mouth daily. (Patient taking differently: Take 1,000 Units by mouth daily with lunch. ), Disp: 30 Tab, Rfl: 0 ??? DILTiazem (TIAZAC) 120 mg SR capsule, Take 1 Cap by mouth daily. (Patient taking differently: Take 120 mg by mouth every morning. ), Disp: 30 Cap, Rfl: 0 ??? diphenhydrAMINE (BENADRYL) 25 mg capsule, Take 1 Cap by mouth every 6 hours as needed for Itching, Rash or Sleep., Disp: 30 Cap, Rfl: 0 ??? ferrous sulfate 324 mg (65 mg iron) tablet,delayed release (DR/EC), Take 1 Tab by mouth daily with breakfast. (Patient not taking: Reported on 09/27/2019), Disp: 30 Tab, Rfl: 0 ??? fluticasone propion-salmeterol (ADVAIR) 100-50 mcg/dose diskus inhaler, Inhale 1 Puff as directed every 12 hours., Disp: 1 Each, Rfl: 0 ??? Multivitamins with Minerals tablet tablet, Take 1 Tab by mouth daily. (Patient taking differently: Take 1 Tab by mouth every morning. ), Disp: 30 Tab, Rfl: 0 ??? pantoprazole (PROTONIX) 40 mg tablet, Take 1 Tab by mouth at bedtime., Disp: 30 Tab, Rfl: 0 ??? tamsulosin (FLOMAX) 0.4 mg capsule, Take 0.4 mg by mouth every morning., Disp: , Rfl: ??? tiotropium (SPIRIVA) 18 mcg inhalation capsule, Inhale 1 Cap as directed daily. (Patient takingdifferently: Inhale 18 mcg as directed every morning. ), Disp: 30 Cap, Rfl: 0 ??? Wool Alcoh-Min Yrz-Ylkqb-Wtdex (EUCERIN) cream, Apply to dry areas twice daily as needed, Disp:57 g, Rfl: 0 ALLERGIES: No Known Allergies REVIEW OF SYSTEMS Review of Systems DIAGNOSTIC DATA Lab Results Component Value Date WBC 5.34 05/10/2019 HGB 10.7 (L) 05/10/2019 HCT 33.3 (L) 05/10/2019 MCV 89 05/10/2019 PLT 217 05/10/2019 Lab Results Component Value Date ALT 90 (H) 03/17/2019 AST 146 (H) 03/17/2019 ALKPHOS 109 03/17/2019 Pathology from EGD 03/2019 Final Pathologic Diagnosis: STOMACH, SITE NOT SPECIFIED, BIOPSY: - Erosive gastritis the background of reactive (chemical) gastropathy. Document reviewed and electronically signed by: BETHANY HOLM MD Report ??Date: 03/23/2019 10:15 By the signature above, the attending physician certifies that he/she has VITALS No data found. PHYSICAL EXAM Alert, communicated clearly and easily IMAGING none DIAGNOSIS Gastric and duodenal ulcers, likely stress/NSAID related ASSESSMENT He appears to have recovered well. No h pylori on biopsies. His ulcers were multiple and not suspicious for malignancy. He has no ongoing symptoms and is taking a PPI. I recommend staying on this, meliza uses NSAIDs occasionally. Reminded him to avoid regular NSAID use. He can follow up if he has any issues. PLAN -Follow-up as needed -Continue pantoprazole once daily Jeyson Castillo MD I spent a total of 8 minutes with Anil Bunn Bryan today and all 8 minutes of that time was spent incounseling and coordination of care as described in the progress note. Electronicaly signed by: Jeyson Castillo MD documented in this encounter Plan of Treatment Not on file documented as of this encounter Visit Diagnoses Diagnosis PUD (peptic ulcer disease)- Primary Peptic ulcer, unspecified site, unspecified as acute or chronic, without mention of hemorrhage, perforation, or obstruction documented in this encounter Care Teams Manager Investment Banking Relationship Specialty Start Date End Date Bethany aPyan FNP [address] [place] [address] PCP - General 05/11/19 documented as of this encounter
--- OUTSIDE RECORDS SUMMARY | 2024-07-11 18:23 | XMS_ITS | Encounter Summary ---
Author Organization [facility] Address [address] [place] [address] Care Team Providers Care Case Picker Name Role Phone NicholasMaile gregg INVENTORY AUDITOR Primary Care Provider [phone] Reason for Visit * Reason Comments Follow-up 1 month trach johnathan govea Encounter Details Date Type Department Care Team (Late st Contact Info) Description 07/17/2019 9:30 EST Office Visit [facility] Acute Care Surgery - [facility] [address] [place] [address] Owen Carpio MD PhD Acquired tracheal fistula (Primary Dx) Social History [...] Sign Reading Time Taken Comments Blood Pressure 140/76 07/17/2019 0914 EST Pulse 76 07/17/2019 0914 EST Temperature - - Respiratory Rate 12 07/17/2019 0914 EST Oxygen Saturation - - Inhaled Oxygen Concentration - - Weight - - Height - - Body Mass Index - - documented in this encounter Functional Status * Are you deaf or do you have serious difficulty hearing? 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 His percutaneous tracheostomy was performed on March 28 of last year. He was decannulated on 20 April. He was sent to rehab and has never had closure of his tracheostomy site. He was seen by Dr. Mijares in this office on June 12 and she consulted with the ENT service who concluded that this would likely close. He continues to sputter mucus and air through his tracheostomy site and he keeps it covered. He is very interested in having a close. On physical examination he is in no acute distress. He is ambulatory without difficulty. His tracheostomy site has a small perhaps 2 mm opening but he does appear to have epithelialization of his of his stoma all the way down to the trachea itself. I cannot appreciate any foreign body. I cannot appreciate any granulomas at the site of the trachea. I see no other reason why this would not have closed. I did discuss with this patient a number of options. 1 option includes attemptedclosure under just local anesthesia the other includes a more extensive procedure including debridement of the airway endoscopy to ensure he does not have granulomas. The patient is concerned about undergoing general anesthesia and possibly being left on mechanical ventilatory support as he did have a very difficult time on the last hospitalization. He wishes to discuss these options with his significant other but he is leaning towards having a limited procedure under local to try to close this. I have indicated to him that I am concerned about the possibility of trapping infection within theneck and I discussed with him techniques that I would use to mitigate this. 15 minutes of this 20-minute [id number] encounter was spent counseling this patient regarding options. He will notify this office with what his choice is. documented in this encounter Plan of Treatment Not on file documented as of this encounter Visit Diagnoses Diagnosis Acquired tracheal fistula- Primary documented in this encounter Care Teams Case Picker Relationship Specialty Start Date End Date Maile Payan FNP [address] [place] [address] PCP - General 05/11/19 documented as of this encounter
--- OUTSIDE RECORDS SUMMARY | 2024-07-11 18:23 | XMS_ITS | Encounter Summary ---
Author Organization [facility] Address [address] [place] [address] Care Team Providers Care Consumer Safety Inspector Name Role Phone Maile Payan SALES REPRESENTATIVE WIRE ROPE Primary Care Provider [phone] Reason for Visit * Reason Onset Date Comments Appointment Related 09/03/2019 Encounter Details Date Type Department Care Team (Late st Contact Info) Description 09/03/[address] [facility] [address] [place] [address] Trauma, Surgery, MD Appointment Related Social History Tobacco Use Types Packs/Day Years [...] encounter Miscellaneous Notes * Telephone Encounter - Mehreen Esteban - 09/03/2019 6013 EST TC to patient to review details of upcoming Closure of Tracheal Fistula surgery scheduled for Monday 09/[address] Carpio. This surgery will begin at 1:25 pm and the patient understands to report to the Registration Office at 11:25 am. He should stop eating solid food at midnight on Sunday 09/03. He may have clear fluids until 10:25 the morning of the surgery. Patient is aware that this is scheduled as an outpatient surgery, so he needs to have a flag car driver to take him home. documented in this encounter Plan of Treatment Not on file documented as of this encounter Visit Diagnoses Not on filedocumented in this encounter Care Teams Consumer Safety Inspector Relationship Specialty Start Date End Date Maile Payan FNP [address] [place] [phone] PCP - General 05/11/19 documented as of this encounter
--- OUTSIDE RECORDS SUMMARY | 2024-07-11 18:23 | XMS_ITS | Encounter Summary ---
Author Organization [facility] Address [address] [place] [address] Care Team Providers Care Assistant To The Ceo Name Role Phone Maile Payan DRYWALL SPRAYER Primary Care Provider [phone] Reason for Visit * Reason Onset Date Comments Appointment Related 09/04/2019 Encounter Details Date Type Department Care Team (Late st Contact Info) Description 09/04/2019 Telephone [facility] Acute Care Surgery - [facility] [address] [place] [address] Trauma, Surgery, MD Appointment Related Social History [...] * Telephone Encounter - Mehreen Esteban - 09/04/2019 1401 EST TC to patient to update him on the start time of his Fistula Closing surgery on 09/04. The start timeis now 2:05 pm and the patient will have to arrive at 12:05 pm in the Registration Office. documented in this encounter Plan of Treatment Not on file documented as of this encounter Visit Diagnoses Not on filedocumented in this encounter Care Teams Assistant To The Ceo Relationship Specialty Start Date End Date Maile Payan FNP [address] [place] [phone] PCP - General 05/11/19 documented as of this encounter
--- OUTSIDE RECORDS SUMMARY | 2024-07-11 18:23 | XMS_ITS | Encounter Summary ---
Author Organization [facility] Address [address] [place] [address] Care Team Providers Care Bass Fisher Name Role Phone Maile Payan IN STORE DEMONSTRATOR Primary Care Provider Reason for Visit * Reason Comments Follow-up Here for follow up. Encounter Details Date Type Department Care Team (Late st Contact Info) Description 06/12/2019 11:30 EST Office Visit [facility] Acute Care Surgery - [address] [address] Marisol Castro MD [address] [facility], [address] [place] [address] Acquired tracheal fistula (Primary Dx) Social History [...] Sign Reading Time Taken Comments Blood Pressure 122/76 06/12/2019 1104 EST Pulse 76 06/12/2019 1104 EST Temperature 36.9 ??C (98.4 ??F) 06/12/2019 1104 EST Respiratory Rate - - Oxygen Saturation 98% 06/12/2019 1104 EST Inhaled Oxygen Concentration - - Weight - [...] of a physical, mental, or emotional condition, do you have difficulty doing errands alone such as visiting a doctor's office or shopping? (15 years old or older) Answer Date of Assessment Author Yes 04/23/2019 13:39 Jori Tang RN documented as of this encounter Mental Status * Because of a physical, mental, or emotional condition, do you have serious difficulty concentrating, remembering, or making decisions? (5 years old or older) Answer Entry Date Author No 04/23/2019 13:39 Jori Tang RN documented in this encounter Progress Notes * Marisol Castro MD - 06/12/2019 1130 EST [facility] Follow Up CC: Non-healing perc trach site S: 64 yo M with recent admission this fall for pneumonia and ARDS. I performed a percutaneous tracheostomy on him 03/28. Due to high cuff pressures this had to be upsized from a 6 to an 8. He was decannulated 04/19 and went to rehab on 04/23. He was discharged from rehab on 05/12 and has been home ever since. He has been getting progressively stronger. Not doing supplements but appetite is good andhe is trying to drink milk and eat as much as possible. He does have some pressure related wounds that are slowly healing per patient and his S.O. They do think that the hole is smaller than it was just not totally resolved yet. The site is not painful or particularly bothersome. He keeps it covered. There isn't any drainage per se, but if he coughs sometimes spit or mucous will come out. He gets short of breath but that sounds like more a function of deconditioning than the wound. He is not on any oxygen at home. Blood pressure 122/76, pulse 76, temperature 36.9 ??C (98.4 ??F), temperature source Temporal, [id number] %. Awake, alert, NAD Patient very thin Thin neck with prominent trachea Pin hole size tracheal fistula with audible air movement No drainage No erythema/ signs of infection A/P 64 yo M with slowly healing tracheostomy site after percutaneous tracheostomy. Given his multiple slowly healing wounds and deconditioning I am not very surprised that he has a persistent tract. I covered it with xeroform for more occlusion and he will continue to do so. I have spoken to the ENT team and they wouldn't recommend any more aggressive treatment at this time. One of my partners will see him in a month to check in. Marisol Castro MD Acute Care Surgery Pager #[phone] 06/12/19 documented in this encounter Plan of Treatment Not on file documented as of this encounter Visit Diagnoses Diagnosis Acquired tracheal fistula- Primary documented in this encounter Historical Medications * This list may reflect changes made after this encounter. UNKNOWN TO PATIENT New prostrate medication per patient, unsure of name of medicine. 0 added in this encounter Care Teams Bass Fisher Relationship Specialty Start Date End Date Maile Payan FNP [address] [place] [phone] PCP - General 05/11/19 documented as of this encounter
--- OUTSIDE RECORDS SUMMARY | 2024-07-11 18:23 | XMS_ITS | Encounter Summary ---
Author Organization [facility] Address [address] [place] [address] Care Team Providers Care Japanese Professor Name Role Phone Maile Payan FAMILY AND MARRIAGE COUNSELLOR Primary Care Provider [phone] Encounter Details Date Type Department Care Team (Late st Contact Info) Description 10/01/2020 Lab Requisition [facility] Pathology & Laboratory Medicine - [address] [address] Outr Resulting Lab, Provider Social History Tobacco [...] Procedure Name Priority Date/Time Associated Diagnosis Comments HIV 1/2 ANTIGEN AND ANTIBODY, 4TH GENERATION Routine 09/30/2020 10:55 EDT documented in this encounter Results * HIV 1/2 ANTIGEN AND ANTIBODY, 4TH GENERATION (09/30/2020 10:55 EDT) [facility] HIV 1 and 2 Antibody/p24 Antigen, 4th Generation Negative Negative 10/02/2020 9:44 EDT [facility] Comment: If acute HIV-1 infection is suspected in a high risk ??patient, submit plasma specimen for HIV-1 RNA quantitation test. Fourth Generation assay performed on the Siemens Centaur. Blood VENOUS BLOOD / Unknown 09/30/2020 10:55 EDT 10/01/2020 15:31 EDT us Provider Outr Resulting Lab IMMUNOLOGY AND SEROL OGY ORDERABLES Final Result [facility] [address] [place] [address] documented in this encounter Visit Diagnoses Not on filedocumented in this encounter Care Teams Japanese Professor Relationship Specialty Start Date End Date Maile Payan FNP [address] [place] [phone] PCP - General 05/11/19 documented as of this encounter
--- OUTSIDE RECORDS SUMMARY | 2024-07-11 18:23 | XMS_ITS | Referral Summary ---
Author Organization [facility] Address [address] [place] [address] Care Team Providers Care Form Layer Name Role Phone Maile Payan Keshav TREE WORKER Primary Care Provider Allergies No known active [...] Informant: Self, Reported on 08/30/2019 Wool Alcoh-Min Dwy-Qetaq-Ynsz s (EUCERIN) cream Apply to dry areas [...] NARINDER LEÓN ONLY HAS DURABLE POWER OF DURABLE MEDICAL EQUIPMENT REPAIRER OVER MONEY AND PROPERTY MATTERS OF PT, NOT HEALTH CARE DECISIONS. 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 Overview (08/22/2019): Added automatically from request for surgery [id number] Physical debility 05/12/2019 Upper gastrointestinal bleed 04/18/2019 Septic shock ([facility]) 03/19/2019 Anemia 03/19/2019 Thrombocytopenia ([facility]) 03/19/2019 Bacteremia 03/19/2019 Fever 03/19/2019 Encephalopathy 03/19/2019 Atrial fibrillation with RVR ([facility]) 9 Resolved Problems Problem Noted Date Diagnosed Date Resolved Date ARDS (adult respiratory dist ress syndrome) ([facility]) 03/19/2019 05/12/2019 SIRISHA (acute kidney injury) ([facility]) 03/19/2019 05/12/2019 Acute respiratory failure wi th hypoxia ([facility]) 03/17/2019 05/12/2019 Immunizations Name Administration Dates Next Due Influenza Vaccine Quad PF 0.5 ml IM (6 mos+) Social History Tobacco Use Types Packs/Day Years [...] 11:36 EST Sexual Orientation Not on file Last Filed Vital Signs Vital Sign Reading [...] Body Mass Index 19.96 08/30/2019 1349 EST Functional Status * Are you deaf or [...] Author No 07/17/2019 9:15 Lucy Gavin RN Mental Status * Because of a physical, mental, or emotional condition, does this person have serious difficulty concentrating, remembering, or making decisions? Answer Entry Date Author No 07/17/2019 9:15 Lucy Gavin, RN Plan of Treatment Not on file Procedures Procedure Name Priority Date/Time Associated Diagnosis Comments HCV RNA DETECT QUANT Routine 12/19/2020 13:42 EDT from Last 3 Months or Most Recently Relevant to Health Maintenance Results * HCV RNA DETECT QUANT (12/19/2020 13:42 EDT) HCV RNA Qualitative Undetected Undetected 12/22/2020 15:23 EDT [facility] Blood VENOUS BLOOD / Unknown 12/19/2020 13:42 EDT 12/21/2020 16:03 EDT Narrative [facility] - 12/22/2020 15:23 EDT The quantification range of this assay is 15 IU/mL to 100,000,000 IU/mL. ??Testing was performed on the ZHANE Ampliprep/ZHANE TaqMan HCV v2.0 ([employer] us Provider Outr Resulting Lab CHEMISTRY & BLOOD GA S ORDERABLES Final Result [facility] [address] [place] [address] from Last 3 Months or Most Recently Relevant to Health Maintenance [place] [address] [place] [address] MEDICARE Advance Directives For more information, please contact: [phone] Documents on File Type Date Recorded Patient Epic Manager Expl anation COLST/MOLST 05/23/2019 12:04 DNR/COLST Advance Directive 04/06/2019 13:14 General Power of [id number] * Limitation of Treatment (Latest Code Status [...] NOT the patient's healthcare provider; or the sports broadcasting internship, dump operator, employee of a residential care facility, [...] NOT the patient's healthcare provider; or the sports broadcasting internship, dump operator, employee of a residential care facility, [...] the discussion? Not Discusse d Care Teams Form Layer Relationship Specialty Start Date End Date Maile Payan FNP [address] [place] [phone] PCP - General 05/11/19
--- OUTSIDE RECORDS SUMMARY | 2024-07-11 18:23 | XMS_ITS | Encounter Summary ---
Author Organization [facility] Address [address] [place] [address] Care Team Providers Care Call Center Receptionist Name Role Phone Maile Payan LABORER SYRUP MACHINE Primary Care Provider [phone] Encounter Details Date Type Department Care Team (Late st Contact Info) Description 10/31/2020 Lab Requisition [facility] Pathology & Laboratory Medicine - [address] [address] Outr Resulting Lab, Provider Social History Tobacco [...] Procedure Name Priority Date/Time Associated Diagnosis Comments HOLD SST Today 10/30/2020 12:50 EDT HEPATITIS B CORE ANTIBODY (TOTAL) Today 10/30/2020 12:50 EDT HEPATITIS B SURFACE ANTIGEN Today 10/30/2020 12:50 EDT documented in this encounter Results * HOLD SST (10/30/2020 12:50 EDT) Hold Hold 10/31/2020 17:15 EDT [facility] Blood VENOUS BLOOD / Unknown 10/30/2020 12:50 EDT 10/31/2020 16:14 EDT us Provider Outr Resulting Lab LAB INFO SERVICE AND SUPPORT & PHONE RESULT Final Result [facility] [address] [place] [address] * HEPATITIS B CORE ANTIBODY (TOTAL) (10/30/2020 12:50 EDT) Hepatitis B Core Ab, Total Negative Negative 11/03/2020 10:46 EDT [facility] Blood VENOUS BLOOD / Unknown 10/30/2020 12:50 EDT 10/31/2020 16:12 EDT us Provider Outr Resulting Lab CHEMISTRY & BLOOD GA S ORDERABLES Final Result Performing Organization Address City/[facility]/ZIP Co de Phone Number [facility] [address] [place] [address] * HEPATITIS B SURFACE ANTIGEN (10/30/2020 12:50 EDT) Hep B Surface Ag Negative Negative 11/03/2020 9:57 EDT [facility] Blood VENOUS BLOOD / Unknown 10/30/2020 12:50 EDT 10/31/2020 16:12 EDT us Provider Outr Resulting Lab CHEMISTRY & BLOOD GA S ORDERABLES Final Result Performing Organization Address City/[facility] Co de Phone Number [facility] [address] [place] [address] documented in this encounter Visit Diagnoses Not on filedocumented in this encounter Care Teams Call Center Receptionist Relationship Specialty Start Date End Date Maile Payan FNP [address] [place] [phone] PCP - General 05/11/19 documented as of this encounter
--- OUTSIDE RECORDS SUMMARY | 2024-07-11 18:23 | XMS_ITS ---
Author Organization Unknown Address [address] [place] [phone] Phone Care Team Providers Care Pathology Tech Name Role Phone JOVANA Gagnon Attending Unavailable MARLIN Parr Primary Unavailable Social History Type Status Start Date End Date Code Code Syst em Smoking History Current some day smoker [id number] SNOMED CT Sex Male Assessment You had [...] Code Code System ACUTE RENAL FAILURE active 65598597 SNOMED-CT PNEUMONIA active 117467911 SNOMED-CT LIVER FUNCTION TESTS ABNORMAL active 220851865 SNOMED-CT Allergies and Adverse Reactions Allergy Substance Reaction Severity Start Date Concern Status Co de Code System No Known Drug Allergies Active 748219856 SNOMED-CT Plan of Treatment CT CHEST W/O CONTRAST 03/30/2024 US ABDOMEN LIMITED 1 ORGAN 02/09/2023 CT CHEST W/O CONTRAST 02/09/2023 LAB DRAW 15MIN 08/24/2021 PRE-OP COVID-19 TESTING 07/27/2021 Encounters Encounter Diagnosis Start Date Code Code Sys tem Atrial fibrillation 04/13/2024 19214982 SNOMED-C T Personal Care Team Section Performer Name Performer Role Active Date Inactive Da te
--- OUTSIDE RECORDS SUMMARY | 2024-07-11 18:23 | XMS_ITS | Encounter Summary ---
Author Organization [facility] Address [address] [place] [address] Care Team Providers Care Collections Director Name Role Phone Maile Payan RAILROAD SIGNAL AND SWITCH OPERATOR Primary Care Provider [phone] Encounter Details Date Type Department Care Team (Latest Contact Info) Description 09/26/2019 Travel Social History Tobacco Use Types Packs/Day Years [...] 14:26 EDT documented as of this encounter Functional Status * Are you deaf or do you have serious difficulty hearing? Answer Date of Assessment Author No 04/23/2019 13:39 EDT Jori Winters RN * Are you blind or do you have serious difficulty seeing, even when wearing glasses? Answer Date of Assessment Author No 04/23/2019 13:39 CONCETTAT Jori Winters RN * Do you have serious difficulty walking or climbing stairs? (5 years old or older) Answer Date of Assessment Author Yes 04/23/2019 13:39 CONCETTAT Jori Winters RN * Do you have difficulty dressing or bathing? (5 years old or older) Answer Date of Assessment Author Yes 04/23/2019 13:39 CONCETTAT Jori Winters RN * Because of a [...] Answer Entry Date Author No 07/17/2019 9:15 Lcuy Gavin RN documented in this encounter Plan of Treatment Not on file documented as of this encounter Visit Diagnoses Not on filedocumented in this encounter Care Teams Collections Director Relationship Specialty Start Date End Date Maile Payan FNP [address] [place] [phone] PCP - General 05/11/19 documented as of this encounter
--- OUTSIDE RECORDS SUMMARY | 2024-07-11 18:23 | XMS_ITS | Encounter Summary ---
Author Organization [facility] Address [address] [place] [address] Care Team Providers Care Work Environment Safety Inspector Name Role Phone Maile Payan MANAGER PRINTING Primary Care Provider [phone] Reason for Visit * Auth/Cert Specialty Diagnoses / Procedures Referred By Judy t Referred To Contact Diagnoses Acquired tracheal fistula Procedures [place] SURG CLOSURE TRACH/FISTULA SURG CLOSURE TRACHEOSTOMY/FISTULA;W/OPLASTIC REPA Referral ID Status Reason Start Date Expiration Date Visits Re quested Visits Authorized [id number] 1 1 Encounter Details Date Type Department Care Team (Late st Contact Info) Description 09/05/2019 14:05 EST - 09/05/2019 15:30 EST Surgery [facility] OR [address] [place] [id number] Owen Carpio MD PhD SURG CLOSURE TRACHEOSTOMY/FISTULA;W /OPLASTIC REPA [[id number] (CPT??)] Surgery Details Date/Time Status Location OR Service Patient Class Case Cl ass Case Type Trauma Case? 09/05/2019 1405 Posted [facility] OR [facility] Outpatient Surgery H - Elective Panel 1 Procedure LRB Anes Op Region Wound Class Comments SURG CLOSURE TRACHEOSTOMY/FIST MARK;W/OPLASTIC REPA N/A Monitored Anesthesia Care Throat Class II/ Clean Contaminated CUT TO CLOSE, TOTAL SURGICAL TIME NEEDED IS 45 MINUTES. PLEASE REDUCE IF POSSIBLE Surgeon Surgeon Role Service Panel Owen Carpio MD PhD Primary Trauma 1 Gemma Romero MD Resident - Assisting General 1 documented in this encounter Social History Tobacco [...] Sign Reading Time Taken Comments Blood Pressure 146/93 09/05/2019 1300 EST rechec k after IV Pulse - - Temperature 36.6 ??C (97.9 ??F) 09/05/2019 1300 EST Respiratory Rate 16 09/05/2019 1300 EST Oxygen Saturation 98% 09/05/2019 1300 EST Inhaled Oxygen Concentration - - Weight 64.9 kg (143 lb 1.3 oz) 09/05/2019 1300 EST Height - - Body Mass Index 19.96 [...] directed daily. 30 Cap 05/11/2019 Wool Alcoh-Min Exd-Yrhot-Ezqkn (EUCERIN) cream Apply to dry areas twice daily as needed 57 g 05/10/2019 documented as of this encounter Discharge Disposition Disposition Code Departure Means Destination Home or Self [facility] documented in this encounter OR Notes * OR Surgeon - Owen Carpio MD - 09/05/2019 0000 EST OPERATIVE REPORT SERVICE DATE: 09/05/2019 SURGEON: Owen Carpio MD, PhD CASH ROOM CLERK: Gemma Romero MD PROCEDURE: Closure of tracheocutaneous [...] PM / Owen Carpio MD,PhD an Confirmation: [id number] Dictation ID: [id number] documented in this encounter Miscellaneous Notes * Brief Op Note - Gemma Romero MD - 09/05/2019 5309 EST Brief Op Note Pre-op Diagnosis: Tracheocutaneous fistula Post-op Diagnosis: same Procedure: Excision of TC fistula tract Surgeon: Shirin CHAMBERLAIN Sidewalk Inspector: Gemma Romero MD Anesthesia: Local and IV sedation Findings: fistula tract excised Fluids: IVF - 600 cc, EBL - min, UOP - NR Drains/Lines: none Retained Material: none Specimens: none Complications: none Condition: stable Wound classification: II-Clean/Contaminated Dispo: PACU then home Gemma Romero MD, PGY5 09/05/2019 16:17 Pager: [phone] documented in this encounter Plan of Treatment [...] - Negative for dysplasia/maligna ncy. 09/12/2019 11:21 [facility] at 1121 Clinical History Acquired tracheal fistula 09/12/2019 11:21 [facility] Attestation There was significant resident/fellow involvement in the diagnostic evaluation of this case. By the signature below, the attending physician certifies that they have personally conducted a gross and/or microscopic examination of the described specimens and rendered or confirmed the above diagnosis. 09/12/2019 11:21 [facility] at 1121 Gross Description A. [...] A1-A3. Janette Winston 09/06/2019 11:40 09/12/2019 11:21 EDT [facility] Resident/Sagar w: Kofi Catalan MD 09/12/2019 11:21 EDT [facility] Scanned Images 09/12/2019 11:21 EDT [facility] Tissue FISTULA / Unknown 09/05/2019 16:03 EST 09/06/2019 7:59 EST Owen Carpio MD PhD PATHOLOGY ORDERABL ES Final Result [facility] [address] [place] [address] documented in this encounter Visit Diagnoses Diagnosis Acquired tracheal fistula- Primary Acquired tracheal fistula Acquired tracheal fistula documented in this encounter [...] on Tue09/05/19 at 1645, Until Tue09/05/19 at 194, Routine, Recovery (only) lidocaine (PF) 10 mg/mL (1 %) injection 2 mg 2 mg, intradermal, PRN, 4 doses, Starting on Tue09/05/19 at 1319, Until Tue09/05/19 at 1945, peripheral intravenous catheter placement, Routine, Preprocedure lidocaine-EPINEPHrine 1 %-1:100,000 injection As needed, Starting on Tue09/05/19 at 1606, Until Tue09/05/19 at 1608, Routine, Intraprocedure Given 09/05/2019 16:06 EST 6 mL naloxone (NARCAN) injection 0.2 mg 0.2 mg, [...] 1356 (New Bag - Prov ider: Sangeeta Hancock)1529 (Continued by Anesthesia - Provider: LANA Bell)1619 (Anesthesia Volume Adjustment - Provider: LANA Bell)1634 (Completed - Provider: Jess Bhandari RN) lactated ringers (LR) infusion at 75 mL/hr, intravenous, CONTINUOUS, Starting on Tue09/05/19 at 1645, Until Tue09/05/19 at 1945, Routine, Recovery (only) 1617 (Continued Infu chad - Provider: Jess Bhandari, JORGE) PRN Medication Order 09/03/2019 09/04/2019 09/05/2019 acetaminophen [...] 1354 (Not Given - Pr ovider: Sangeeta Hancock - Reason: Other) lidocaine-EPINEPHrine 1 %-1:100,000 injection [...] % ) injection 2 mg 1 09/05/2019 naloxone (NARCAN) injection 0.2 mg [...] 09/05/2019 documented in this encounter Care Teams Work Environment Safety Inspector Relationship Specialty Start Date End Date Maile Payan FNP [address] [place] [phone] PCP - General 05/11/19 documented as of this encounter
--- OUTSIDE RECORDS SUMMARY | 2024-07-11 18:24 | XMS_ITS | Encounter Summary ---
Author Organization [facility] Address [address] [place] [address] Care Team Providers Care Commercial Green Building Architect Name Role Phone Unknown, Provider Primary Care Provider Unava ilable None, Provider Primary Care Provider Unavailabl e Maile Laureano SUPERVISOR VAT HOUSE Primary Care Provider [phone] Tatcristino Maile S SUPERVISOR VAT HOUSE Primary Care Provider [phone] Reason for Referral * Consult (Routine) - Denied Specialty Diagnoses / Procedures [facility] Referred To Contact Otolaryngology Diagnoses ARDS (adult respiratory distress syndrome) ([facility]) Acute respiratory failure with hypoxia ([facility]) Leakage of tracheostomy site ([facility]) Martha Reddy MD Phone: tel: fax: [facility] [place] [address] [place] [address] Phone: tel: fax: Referral ID Status Reason Start Date Expiration Date V isits Requested Visits Authorized [id number] Denied Specialty Services Required 05/11/2019 1 0 Question Answer Reason for Request: Continued small air leak at tracheostomy site. Trach in place 03/28/2019-04/19/2019 for PNA/sepsis/ARDS. No infection and no drainage at site. Expected Discharge Date (Inpatient Only): 05/12/2019 * Referral (Routine/Next Available) - New Request Specialty Diagnoses / Procedures Referred By Contac t Referred To Contact Diagnoses Acute respiratory failure with hypoxia ([facility]) ARDS (adult respiratory distress syndrome) ([facility]) SIRISHA (acute kidney injury) ([facility]) Physical debility Martha Reddy MD Phone: tel: fax: [facility] [place] [address] Phone: tel: fax: Referral ID Status Reason Start Date Expiration Date Visits Requested Visits Authorized [id number] New Request Specialty Services Required 05/11/2019 1 1 Question Answer I certify that this patient is under my care and that I, or another Medicare allowed practitioner (DO CINTIA, ISMA) working with me, had a dyvy-ix-jjhg encounter with this patient on this date: 05/11/2019 I further certify that the yizb-ws-hrby encounter was in whole or in part related to the reason the patient needs home health care. Yes The discharge summary or progress note will provide further details that support the need for the home health services and the plan of care. Yes Enter the allowed practitioner (DO CINTIA, ISMA) who will provide oversight of this patient's home heatlh care needs and plan of care Maile laureano ACID LOADER The patient? s homebound status is related to the following diagnoses, illness or condition (describe): Severe debility and deconditioning and weight loss S/P pneumonia, sepsis, ARDS The patient has a condition due to an illness or injury that restricts the ability to leave home except with: Assistive device, The assistance or supervision of another person Assistive device Walker Leaving the home is medically contraindicated due to (reason 1): Not medically contraindicated, but needs assistance as indicated above. Leaving home requires a considerable and taxing effort with mobility limited by the following (criteria 1): The severity of pulmonary disease and dyspnea limits activity tolerance and ambulation Nursing skilled care requested: Nursing asessment, Wound care, Physical Therapy, Occupational therapy nursing home assessment needed related to this encounter: CP Status, Nutrition Status, Skin Integrity Detention Referral - Wound Care: (Please include care and frequency.) Pressure Ulcer Number of Wound/Dressing Sites: 1 Wound/Dressing Location Site 1 Coccyx Wound/Dressing Orientation Site 1 Mid Dressing Type Site 1 Dry Cleanse Wound Site 1 Other, Soap Water Please Specify: Therahoney Associated Medications Site 1 (Please make sure you also place separate order) Not Applicable, Other Please Specify: therahoney Contact Layer Site 1 Foam Middle Layer Site 1 Not Applicable Outside Layer Site 1 Not Applicable Adhesive Site 1 Not Applicable Physical therapy is needed for: Evaluation, Safety, Gait/Mobility Assessment and Training, Strength Training/Exercise Program Occupational Therapy for: ADL Training, Assess Need for Adaptive Equipment Expected Discharge Date (Inpatient Only): 05/12/2019 Reason for Visit * Auth/Cert Specialty Diagnoses / Procedures Referred By Judy morgan Referred To Contact Diagnoses [id number] Z51.89 Encounter for other specified aftercare-Z51.89[ICD-10-CM] Referral ID Status Reason Start Date Expiration Date Visits Re quested Visits Authorized [id number] 1 1 Encounter Details Date Type Department Care Team (Latest Contact Info) Description 04/23/2019 13:32 EDT - 05/12/2019 15:30 EST Hospital Encounter [facility] Unit Level [address] [place] [address] [id number] Eladio Otero MD [address] [place] [address] [phone] Martha Reddy MD [address] [place] [address] [phone] Atrial fibrillation with RVR (HCC-CMS) (Primary Dx); Acute respiratory failure with hypoxia (HCC-CMS); ARDS (adult respiratory distress syndrome) (HCC-CMS); SIRISHA (acute kidney injury) (HCC-CMS); Physical debility; Leakage of tracheostomy site (HCC-CMS) Discharge Disposition: Home-Health Care Svc Social History Tobacco Use Types Packs/Day Years Used Date Smoking Tobacco: Every Day Cigarettes Smokeless Tobacco: Never Comments:Quit 2 weeks ago Alcohol Use Standard Drinks/Week Comments Yes 2 (1 standard drink = 0.6 oz pur e alcohol) Sex and Gender Information Value Date Recorded Sex Assigned at Not on file Legal Sex Male 18:41 EST Gender Identity Male 08/29/2019 11:36 EST Sexual Orientation Not on file documented as of this encounter Last Filed Vital Signs Vital Sign Reading Time Taken Comments Blood Pressure 122/65 05/12/2019 0629 EST Pulse 71 05/12/2019 0629 EST Temperature 36.4 ??C (97.5 ??F) 05/12/2019 0629 EST Respiratory Rate 16 05/12/2019 0629 EST Oxygen Saturation 100% 05/02/2019 0655 EDT Inhaled Oxygen Concentration - - Weight 55.8 kg (123 lb) 05/02/2019 1330 EDT Height 181.6 cm (5' 11.5) 04/23/2019 1339 EDT Body Mass Index 16.92 04/23/2019 1339 EDT documented in this encounter Functional Status * [...] Jori Tang RN documented in this encounter Discharge Summaries * Martha Reddy MD - 05/12/2019 0805 EST Discharge Summary Chief Complaint/Reason for Admission: Physical debility Principal Problem: Physical debility Active Problems: Atrial fibrillation with RVR ([facility]) Admission date: 04/23/2019 Discharge date: 05/12/2019 Condition at Discharge: Improved Assessment at Discharge: Temp: [36.4 ??C (97.5 ??F)] (), Pulse: [71] (), Resp: [16] (), BP: (122)/(65) (), SpO2: -- () Patient Vitals for the past 48 hrs: BP Pulse Resp Temp 05/12/19 0629 122/65 71 16 36.4 ??C (97.5 ??F) 05/11/19 0624 110/72 68 16 35.9 ??C (96.6 ??F) Weight: Weight : 55.8 kg (123 lb) Estimated body mass index is 16.92 kg/m?? as calculated from the following: Height as of this encounter: 181.6 cm (71.5). Weight as of this encounter: 55.8 kg (123 lb). Last 5 Weights Filed This Admission ?? 04/23/19 1339 05/02/19 1330 Weight: 54 kg (119 lb) 55.8 kg (123 lb) 03/17/2019 admission weight 70 kg ?? Hospital Course prior to Rehabilitation Admission per H&P 04/23/[address] Otero: Patient is a??64-year-old male with no prior medical history although he had not seen a physician in some 10 years. ??He presented to [facility] on 03/17/2019 with approximately 2.5 weeks of fever, loss of appetite, weakness, fatigue and diarrhea. ??Work-up at [facility] revealed pneumonia/ARDS and renal failure, as well as atrial fibrillation with RVR. ??He was transferred to the [facility] on 03/17/2019 for acute hypoxic respiratory failure with ARDS, volume overload, COPD and hemodynamic instability. ??He had evidence of sepsis secondary to a left lower lobe pneumonia and MSSA bacteremia. ?? On admission he was placed on Levophed and propofol, transition to ketamine secondary to hypotension. ??He was on Zosyn and azithromycin, and changed to ceftaroline as well as given vancomycin. ??Antibiotics were narrowed to nafcillin with Zosyn on 03/21/2019. ??On 03/20/2019 he did have some acute de compensation with concern of pulmonary embolism, was given heparin but developed bright red blood per rectum and of his orogastric tube. ??He had an acute blood loss anemia was transfused 3 units packed red blood cells and 1 unit platelets, started on pressors. ??EGD is revealed diffuse stomach andduodenal ulcerations. ??CT scan of the abdomen pelvis showed the jejunum being edematous and thicken ed, there was marked gallbladder distention without radiopaque cholelithiasis or evidence of gallbladder wall thickening. ??There was a left adrenal nodule favoring adenoma. ??TIESHA showed no acute findings during his stay. ??The difficulty with weaning from mechanical ventilation and a tracheostomy tube was placed on 03/28/2019 and was additionally weaned from pressors. ??CT scan of the chest with multifocal pneumonia within both lungs, bilateral parapneumonic effusions, moderate aortic great vessel atherosclerotic calcifications and mucous in the right lower lobe airways. He again had an anemia and on 04/07/2019 received an additional unit of packed red blood cells. ??Hewas transitioned to the floor, but on 04/12/2019 developed hypoxia again, and was transferred back to the medical intensive care unit. ?? He again was stabilized and moved to the floors. Follow-up imaging showed slight progression of multifocal regions of airspace disease in the lungs and small bilateral pleural effusions. ??He had required continue supplemental oxygen up to 5 L last night with oxygen desaturation down to 86%. He subsequently was de cannulated and tolerated this well and nasogastric tube removed with patient takinga dysphagia level 3 diet well. He has been seen by all therapy modalities and actively participating, being independent with all mobility and self-cares prior to his hospitalization. Given functionallimitations, he was evaluated and determined to be an appropriate candidate for acute inpatient rehabilitation.? Acute Rehab Course: Patient transferred to acute rehab 04/23/2019 and underwent comprehensive rehabilitation program including OT, PT, SECURITY ASSISTANT and 24 hour rehab nursing,ongoing medical monitoring. Active Hospital Problems Diagnosis ??? Physical debility [R53.81] ??? Atrial fibrillation with RVR ([facility]) [I48.91] Exam stable at discharge. Lungs clear. Trach site clean with 2 mm air leak Rash on legs just faint blotches of fading red areas Strength grossly 4+ with DF 4/5 Sensation intact Patient progressed functionally and on discharge is ambulating household distances with a rolling walker. Last Lab Results at Discharge: BUN: Lab Results Component Value Date BUN 66 (H) 03/24/2019 Creatinine: Lab Results Component Value Date CREATININE 0.65 (L) 05/10/2019 CBC: Lab Results Component Value Date WBC 5.34 05/10/2019 RBC 3.73 (L) 05/10/2019 HGB 10.7 (L) 05/10/2019 HCT 33.3 (L) 05/10/2019 MCV 89 05/10/2019 MCH 28.7 05/10/2019 MCHC 32.1 (L) 05/10/2019 PLT 217 05/10/2019 DIFFTYPE Manual 03/20/2019 Lab Results Component Value Date/Time HGB 10.7 (L) 05/10/2019 05:36 HGB 8.3 (L) 04/22/2019 04:40 HGB 7.8 (L) 04/20/2019 05:29 HGB 7.8 (L) 04/18/2019 05:31 HGB 7.6 (L) 04/16/2019 05:02 HGB 7.7 (L) 04/14/2019 04:29 Electrolytes: Lab Results Component Value Date NA 139 05/10/2019 K 4.4 05/10/2019 CL 109 05/10/2019 CO2 20 (L) 05/10/2019 ALLERGIES: No Known Allergies DISCHARGE MEDICATION PLAN: Medication List START taking these medications acetaminophen 325 mg tablet Commonly known as: TYLENOL Take 2 Tabs by mouth every 4 hours as needed for Pain. DILTiazem 120 mg SR capsule Commonly known as: TIAZAC Take 1 Cap by mouth daily. diphenhydrAMINE 25 mg capsule Commonly known as: BENADRYL Take 1 Cap by mouth every 6 hours as needed for Itching, Rash or Sleep. fluticasone propion-salmeterol 100-50 mcg/dose diskus inhaler Commonly known as: ADVAIR Inhale 1 Puff as directed every 12 hours. tiotropium 18 mcg inhalation capsule Commonly known as: SPIRIVA Inhale 1 Cap as directed daily. triamcinolone 0.1 % ointment Commonly known as: KENALOG Use sparingly for rash/itch. Do not use on open skin wounds. Wool Alcoh-Min Ont-Apyll-Gadex cream Commonly known as: EUCERIN Apply to dry areas twice daily as needed CHANGE how you take these medications pantoprazole 40 mg tablet Commonly known as: PROTONIX Take 1 Tab by mouth at bedtime. What changed: when to take this CONTINUE taking these medications cholecalciferol (Vitamin D3) 1,000 unit tablet Take 1 Tab by mouth daily. ferrous sulfate 324 mg (65 mg iron) tablet,delayed release (DR/EC) Take 1 Tab by mouth daily with breakfast. melatonin 5 mg tablet Take 1 Tab by mouth at bedtime. Multivitamins with Minerals tablet tablet Take 1 Tab by mouth daily. senna 8.6 mg tablet Commonly known as: SENOKOT Take 2 Tabs by mouth at bedtime. STOP taking these medications albuterol 2.5 mg /3 mL (0.083 %) nebulizer solution Commonly known as: ACCUNEB collagenase ointment Commonly known as: SANTYL guaiFENesin 600 mg SR tablet Commonly known as: MUCINEX ipratropium-albuterol 0.5 mg-3 mg(2.5 mg base)/3 mL nebulizer solution Commonly known as: DUONEB metoprolol 25 mg tablet Commonly known as: LOPRESSOR nicotine 7 mg/24 hr patch Commonly known as: NICODERM CQ Where to Get Your Medications These medications were sent to [facility] ([facility] [address] [address] ?? cholecalciferol (Vitamin D3) 1,000 unit tablet ?? DILTiazem 120 mg SR capsule ?? diphenhydrAMINE 25 mg capsule ?? ferrous sulfate 324 mg (65 mg iron) tablet,delayed release (DR/EC) ?? fluticasone propion-salmeterol 100-50 mcg/dose diskus inhaler ?? melatonin 5 mg tablet ?? pantoprazole 40 mg tablet ?? senna 8.6 mg tablet ?? tiotropium 18 mcg inhalation capsule ?? triamcinolone 0.1 % ointment ?? Wool Alcoh-Min Ymy-Zjznn-Yjiln cream You can get these medications from any pharmacy You don't need a prescription for these medications ?? acetaminophen 325 mg tablet ISSUES FOLLOWED DURING STAY: #Severe debility and deconditioning S/P pneumonia/MSSA bacteremia 03/17/2019 with secondary Impairedmobility and ADLs: ? PT/OT acute level therapies to address mobility, self-care, ADL deficits ? SECURITY ASSISTANT to monitor swallowing and modified diet needs. Has been progressed to a regular consistency diet ? bus company manager for self-care ADL support, education, patient/family training ?? - S/P pneumonia/bacteremia and hypoxic failure/ARDS: Tracheostomy not completely closed. Trach in place 03/28-04/19. ? New Dulera changed to Advair at time of d/c for more affordable rx, continue new med Spiriva for home ? Tracheostomy dressing. Encouraged to cover over trach site when he talks to decrease the airflow. ?? -Duodenal ulcer/UGI: Protonix 40 mg daily. Asymptomatic ? EGD identifying multiple clean-based ulcers in stomach and duodenum and one visible vessel treated with an Endo Clip x1. Required 3 units PRBCs, 1 unit platelets. Pathology only with erosive gastritis identified. ?? -SIRISHA: Renal function has normalized ?? -Anemia: Associated with severe acute illness, GI bleed. Improving ?? -Sacral ulcer: Unstageable. Wound care nursing monitoring. Thera honey. Mepilex foam ?? -Atrial fibrillation: Appears resolved. Metoprolol had been stopped as it was felt to be because ofrash. ? Diltiazem for rate control ? Anticoagulation on hold given recent GI bleed and low chads score ? Has not had evident a fib during rehab program. ?? -Rash: Input from dermatology review review of images. [place] to be secondary to metoprolol. ? Treating symptomatically with triamcinolone, Benadryl. ? Significantly improving mostly just in the lower extremities at this time. - Weight loss: significant weight loss 2/2 severe illness. Admit weight 70 kg. Starting to regain As per weights documented above. Nutrition input on hi protein/hi calorie foods and supplements. DISCHARGE PLAN: Significant other's home Home health services: RN, OT, PT, SHEEP FARM MANAGER ?? ACID LOADER Maile Laureano, on 05/17 at 2:40 pm. ENT referral placed to [facility] for outpatient visit to assess trach site if continues to have air leak. Please refer to above section : ISSUES FOLLOWED DURING STAY for all Diagnoses/problems followed andrecommendations and plans. Follow-up appointments and procedures Amb Consult/Follow Up ENT Reason for Request: Continued small air leak at tracheostomy site. Trach in place 03/28/2019-04/19/2019 for PNA/sepsis/ARDS. No infection and no drainage at site. Expected Discharge Date (Inpatient Only): 05/12/2019 Authorizing Provider: Martha Reddy MD Home Health Agency - Other I certify that this patient is under my care and that I, or another Medicare authorized non-physician practitioner (PA or ACID LOADER) or resident working with me, had a kqdt-lm-vysp encounter with this patient on this date: 05/11/2019 I further certify that the dswg-bn-mhhy encounter was in whole or in part related to the reason thepatient needs home health care.: Yes The patient has had a fryn-dd-eriw visit by me or one of my colleagues. The discharge summary or progress note will provide further details that support the need for the home health services and the plan of care.: Yes The MD/DO who will provide oversight of this patient's home heatlh care needs and plan of care: Maile laureano NP The patient???s homebound status is related to the following diagnoses, illness or condition (describe): Severe debility and deconditioning and weight loss S/P pneumonia, sepsis, ARDS Patient needs one or more of the following to leave home: Assistive device The assistance or supervision of another person Assistive device: Walker Leaving the home is medically contraindicated due to: Not medically contraindicated, but needs assistance as indicated above. The following conditions illustrate the patient???s normal inability to leave home AND that leavinghome requires a considerable and taxing effort: The severity of pulmonary disease and dyspnea limits activity tolerance and ambulation Skilled Care Requested: Nursing asessment Wound care Physical Therapy Occupational therapy nursing home assessment needed related to this encounter: CP Status Nutrition Status Skin Integrity Detention Referral - Wound Care: (Please include care and frequency.): Pressure Ulcer Number of Wound/Dressing Sites: 1 Wound/Dressing Location Site 1: Coccyx Wound/Dressing Orientation Site 1: Mid Dressing Type Site 1: Dry Cleanse Wound Site 1: Other Soap Water Please Specify: Therahoney Associated Medications Site 1 (Please make sure you also place separate order): Not Applicable Other Please Specify: therahoney Contact Layer Site 1: Foam Middle Layer Site 1: Not Applicable Outside Layer Site 1: Not Applicable Adhesive Site 1: Not Applicable Physical therapy is needed for: Evaluation Safety Gait/Mobility Assessment and Training Strength Training/Exercise Program Occupational Therapy for: ADL Training Assess Need for Adaptive Equipment Expected Discharge Date (Inpatient Only): 05/12/2019 Authorizing Provider: Martha Reddy MD No future appointments. cc: PCP: Maile Laureano [address] [facility] [address] Referring Prov: Shelly Guzman MD [address] [place] [address] Discharge Summary Completed: yes 45 minutes total time spent on discharge today including discussion and instruction to patient and caregiver, preparation of records, prescriptions and referrals. Portions of this document have been prepared with speech recognition software or keyboard data control assistant techniques. Minor irregularities or keyboarding misprints may be present. documented in this encounter Discharge Instructions * Discharge Instr - AVS First Page* Martha Reddy MD - 05/09/2019 14:40 EST You have a new appointment with ACID LOADER Maile Laureano, at [facility] ([phone]) on 05/17 at 2:40 PM. documented in this encounter Medications at Time [...] daily with breakfast. 30 Tab 05/10/2019 fluticasone propion-salmeter ol (ADVAIR) 100-50 mcg/dose diskus inhaler Inhale 1 Puff as directed every 12 hours. 1 Each 05/11/2019 Multivitamins with Minerals tablet tablet Take 1 Tab by mouth daily. 30 Tab 04/24/2019 pantoprazole (PROTONIX) 40 mg tablet Take 1 Tab by mouth at bedtime. 30 Tab 05/10/2019 tiotropium (SPIRIVA) 18 mcg inhalation capsule Inhale 1 Cap as directed daily. 30 Cap 05/11/2019 Wool Alcoh-Min Rro-Xyhal-Frvrx (EUCERIN) cream Apply to dry areas twice daily as needed 57 g 05/10/2019 melatonin 5 mg tablet Take 1 Tab by mouth at bedtime. 30 Tab 05/10/2019 0 senna (SENOKOT) 8.6 mg tablet Take 2 Tabs by mouth at bedtime. 60 Tab 05/10/2019 0 triamcinolone (KENALOG) 0.1 % ointment Use sparingly for rash/itch. Do not use on open skin wounds. 30 g 05/10/2019 0 documented as of this encounter Ordered Prescriptions Prescription Sig Dispense Quantity Refills Last Filled Start Date End Date fluticasone propion-salmeterol (ADVAIR) 100-50 mcg/dose diskus inhaler Inhale 1 Puff as directed every 12 hours. 1 Each 05/11/2019 Wool Alcoh-Min Jts-Kjorj-Hqehh (EUCERIN) cream Apply to dry areas twice daily as needed 57 g 05/10/2019 tiotropium (SPIRIVA) 18 mcg inhalation capsule Inhale 1 Cap as directed daily. 30 Cap 05/11/2019 diphenhydrAMINE (BENADRYL) 25 mg capsule Take 1 Cap by mouth every 6 hours as needed for Itching, Rash or Sleep. 30 Cap 05/10/2019 DILTiazem (TIAZAC) 120 mg SR capsule Take 1 Cap by mouth daily. 30 Cap 05/11/2019 acetaminophen (TYLENOL) 325 mg tablet Take 2 Tabs by mouth every 4 hours as needed for Pain. 05/10/2019 pantoprazole (PROTONIX) 40 mg tablet Take 1 Tab by mouth at bedtime. 30 Tab 05/10/2019 ferrous sulfate 324 mg (65 mg iron) tablet,delayed release (DR/EC) Take 1 Tab by mouth daily with breakfast. 30 Tab 05/10/2019 cholecalciferol, Vitamin D3, 1,000 unit tablet Take 1 Tab by mouth daily. 30 Tab 05/10/2019 triamcinolone (KENALOG) 0.1 % ointment Use sparingly for rash/itch. Do not use on open skin wounds. 30 g 05/10/2019 0 mometasone-formote rol (DULERA) 100-5 mcg/actuation Inhale 2 Puffs as directed 2 times daily for 30 days. 2 Inhaler 05/10/2019 9 melatonin 5 mg tablet Take 1 Tab by mouth at bedtime. 30 Tab 05/10/2019 0 senna (SENOKOT) 8.6 mg tablet Take 2 Tabs by mouth at bedtime. 60 Tab 05/10/2019 0 documented in this encounter Discharge Disposition Disposition Code Departure Means Destination Comment s Home-Health Care Svc Car Home Accompanied by spouse documented in this encounter Progress Notes * Rochelle Lara, DMD - 05/12/2019 1530 EST [facility] - Inpatient Rehab Unit Discharge Planning Communication Tool Discharge Location and Caregiver: Plan to discharge Home in [place], [place] and S/O, Lawanda Rafal is able to toprovide support to patient. Patient will d/c to his SO, Lawanda's home at [address] [place] [address]. Home is one level with 3 steps in the back with no rail and 5 steps in the front with 2 rails. She is able to provide assist. Patient's new PCP is Maile DOTSON at [facility], . I will get him an apptwhen d/c date is firm. TASHA LOGAN 05/03 Follow-Up Therapy Services: Will use [facility] for . for DME and site not chosen for outpatient. LMB CM Discharge Equipment Needs: 05/11: 4 wheel Rolator was purchased at [employer] [facility] [employer], paid by CM department, and delivered to his room. Judi @ [phone] Pharmacy for Discharge Medications: [facility] Pharmacy Please fill d/c meds at [facility]. LMB CM * Martha Reddy MD - 05/11/2019 7998 EST INPATIENT PROGRESS NOTE DATE OF SERVICE:05/11/2019 PCP Maile Laureano LOS: 18 days REHABILITATION ADMISSION: 04/23/2019 REHAB ADMISSION DX: Severe deconditioning S/P pneumonia/MSSA bacteremia/ARDS CC: General weakness SUBJECTIVE: Patient was seen today for tolerance of rehab program. Reviewed information about plan for his trach site if the air leak does not seal. He is having no pain or discomfort. Appetite remains good. He is wondering about financial coverage for the boost although this is something that is not covered by insurance. Patient Active Problem List Diagnosis ??? Atrial fibrillation with RVR ([facility]) ??? Acute respiratory failure with hypoxia ([facility]) ??? Septic shock ([facility]) ??? ARDS (adult respiratory distress syndrome) ([facility]) ??? SIRISHA (acute kidney injury) ([facility]) ??? Anemia ??? Thrombocytopenia ([facility]) ??? Bacteremia ??? Fever ??? Encephalopathy ??? Upper gastrointestinal bleed Current Facility-Administered Medications: acetaminophen (TYLENOL) tablet 650 mg oral Q4H PRN albuterol (ACCUNEB) nebulizer solution 2.5 mg nebulization Q4H PRN cholecalciferol (Vitamin D3) tablet 1,000 Units oral QHS DILTiazem (TIAZAC) ER capsule 120 mg oral DAILY diphenhydrAMINE (BENADRYL) capsule 25 mg oral Q6H PRN enoxaparin (LOVENOX) injection 40 mg subcutaneous DAILY ferrous sulfate EC tablet 324 mg oral DAILY (BREAKFAST) melatonin tablet 5 mg oral QHS mometasone-formoterol (DULERA) 100-5 mcg/actuation inhaler 2 Puff inhalation BID Multivitamins with Minerals tablet 1 Tab oral DAILY pantoprazole (PROTONIX) tablet 40 mg oral QHS senna (SENOKOT) tablet 2 Tab oral QHS tiotropium (SPIRIVA) 18 mcg inhalation capsule 18 mcg inhalation DAILY triamcinolone (KENALOG) 0.1 % ointment topical BID Wool Alcoh-Min Zep-Felsf-Lstwm (EUCERIN) cream topical BID OBJECTIVE: Estimated body mass index is 16.92 kg/m?? as calculated from the following: Height as of this encounter: 181.6 cm (71.5). Weight as of this encounter: 55.8 kg (123 lb). Last 5 Weights Filed This Admission 04/23/19 1339 05/02/19 1330 Weight: 54 kg (119 lb) 55.8 kg (123 lb) 03/17/2019 admission weight 70 kg Patient Vitals for the past 48 hrs: BP Pulse Resp Temp 05/11/19 0624 110/72 68 16 35.9 ??C (96.6 ??F) 05/10/19 0600 133/61 69 14 36.6 ??C (97.9 ??F) Patient Vitals for the past 24 hrs: Numeric Pain Level (Scale 1-10) Asleep 05/11/19 0800 0 -- 05/10/19 2300 -- Reassessed, sleeping comfortably, RR WNL. EXAM: Exam repeated and stable 05/11/2019 Affect pleasant. Cooperative. HENT: AT, NC, MMM. Tracheostomy site still with some air leak. No discharge, no sign of infection. Opening only a few millimeters. Heart rate regular. Respirations even, unlabored. Slightly loose secretions with occasional weak cough. Abdomen benign. Skin:Unstageable sacral ulcer. Last image documentation 05/04 scanned records Edema: No peripheral edema Musculoskeletal: No joint swelling or restrictions Neuro:Speech clear, fluent. No confusion noted. CN grossly intact. PERRL Motor exam: 5-/5 in general except for bilateral DF 4/5. Symmetrical but significantly diminished muscle bulk. Tone: Normal Sensation: intact to light touch, deep pressure proximally and distally. Coordination: no ataxia, no tremor LABS: Kidney/Electrolytes: Lab Results Component Value Date NA 139 05/10/2019 K 4.4 05/10/2019 CL 109 05/10/2019 CO2 20 (L) 05/10/2019 CREATININE 0.65 (L) 05/10/2019 BUN 66 (H) 03/24/2019 CALCGFR 102 05/10/2019 Lab Results Component Value Date/Time NA 139 05/10/2019 05:36 NA 135 (L) 04/22/2019 04:40 NA 136 04/20/2019 05:29 NA 136 04/18/2019 05:31 Lab Results Component Value Date CALCIUM 8.8 04/22/2019 CALCCA 9.9 04/22/2019 Lab Results Component Value Date MG 1.8 04/22/2019 Lab Results Component Value Date INR 1.7 (H) 03/20/2019 INR 1.4 (H) 03/17/2019 INR 1.3 (H) 03/17/2019 Lab Results Component Value Date WBC 5.34 05/10/2019 HCT 33.3 (L) 05/10/2019 MCV 89 05/10/2019 MCH 28.7 05/10/2019 MCHC 32.1 (L) 05/10/2019 PLT 217 05/10/2019 RBC 3.73 (L) 05/10/2019 RDWCV 18.8 (H) 05/10/2019 Lab Results Component Value Date/Time HCT 33.3 (L) 05/10/2019 05:36 HCT 26.3 (L) 04/22/2019 04:40 HCT 24.9 (L) 04/20/2019 05:29 HCT 24.7 (L) 04/18/2019 05:31 Lab Results Component Value Date/Time GLUCOSEFINGE 126 (H) 04/07/2019 11:20 GLUCOSEFINGE 130 (H) 04/05/2019 05:36 GLUCOSEFINGE 117 (H) 04/04/2019 23:31 GLUCOSEFINGE 117 (H) 04/04/2019 18:31 GLUCOSEFINGE 124 (H) 04/04/2019 11:51 GLUCOSEFINGE 114 (H) 04/04/2019 06:23 GLUCOSEFINGE 104 (H) 04/03/2019 23:50 GLUCOSEFINGE 123 (H) 04/03/2019 18:10 ASSESSMENT: 64-year-old gentleman initially presenting 03/17/2019 to [facility] with several weeks of feve/weakness/fatigue/diarrhea with admitting diagnoses of pneumonia/ARDS/renal failure/atrial fibrillation RVR. Initially admitted in acute hypoxic respiratory failure with volume overload. Diagnosis of left lower lobe pneumonia with MSSA bacteremia. Prolonged hospital course with marked deconditioning and wheezing. The patient is medically stable to continue in the rehabilitation program. Team notes reviewed. Ongoing gains. Active Hospital Problems Diagnosis ??? ARDS (adult respiratory distress syndrome) ([facility]) [J80] ??? SIRISHA (acute kidney injury) ([facility]) [N17.9] ??? Atrial fibrillation with RVR ([facility]) [I48.91] ??? Acute respiratory failure with hypoxia ([facility]) [J96.01] Team/Patient/Family Communication: Patient: Need for ENT follow-up if the air leak does not seal PLAN: #Severe debility and deconditioning S/P pneumonia/MSSA bacteremia 03/17/2019 with secondary Impairedmobility and ADLs: ?? PT/OT acute level therapies to address mobility, self-care, ADL deficits ?? SECURITY ASSISTANT to monitor swallowing and modified diet needs. Has been progressed to a regular consistency diet ?? bus company manager for self-care ADL support, education, patient/family training - S/P pneumonia/bacteremia and hypoxic failure/ARDS: Tracheostomy states of healing ?? DuoNeb's twice daily, guaifenesin twice daily ?? Tracheostomy dressing. Encouraged to cover over trach site when he talks to decrease the airflow. -Duodenal ulcer/UGI: Protonix 40 mg daily. Asymptomatic ?? EGD identifying multiple clean-based ulcers in stomach and duodenum and one visible vessel treated with an Endo Clip x1. Required 3 units PRBCs, 1 unit platelets. Pathology only with erosive gastritis identified. -SIRISHA: Renal function has normalized -Anemia: Associated with severe acute illness, GI bleed. -Sacral ulcer: Unstageable. Wound care nursing monitoring. Thera honey. -Atrial fibrillation: Appears resolved. Metoprolol had been stopped as it was felt to be because ofrash. ?? Diltiazem for rate control ?? Anticoagulation on hold given recent GI bleed and low chads score -Rash: Input from dermatology review review of images. [place] to be secondary to metoprolol. ?? Treating symptomatically with triamcinolone, Benadryl. ?? Significantly improving DVT Prophylaxis:??Pharmacologic Prophylaxis:??Enoxaparin (Lovenox) 40 mg SQ daily ?? Multidisciplinary team rounds to review progress/discharge barriers and plans: [employer] Scheduler: Ange Jovel RN Case Manager: Judi Shin RN DISCHARGE PLAN: Significant other's home Home health services: RN, OT, PT, SHEEP FARM MANAGER ACID LOADER Maile Laureano, on 05/17 at 2:40 pm. Expected Discharge Date: 05/12/19 Martha Reddy MD No future appointments. Portions of this document have been prepared with speech recognition software or keyboard data control assistant techniques. Minor irregularities or keyboarding misprints may be present. * Ange Jovel RN - 05/11/2019 1332 EST CM Activity and d/c note. Patient to d/c home tomorrow with family and will have f/u by Beryl LUCAS for RN/PT/OT/SHEEP FARM MANAGER. Patient and family education will be completed and equipment needs addressed. Patient does not have moneyfor his medication which is $621.41 so I got approval from Jennifer Esteban to have CM cover it. I gave patient HAP information for future medication problems until he gets Medicaid.I explained to patient t hat he should have a letter from Medicaid at home and he must get them what they need by 05/15 which is next Tuesday. He was applied for PAP and Medicaid as he had no supplement and no RX coverage. Judi also picked up a tall 4 wheeled RW from the Medical store, $195.00 which was also billed to CNSW Dept. Lawanda will be coming for patient tomorrow and to receive final training. Patient has another gas card for the ride home. * Elizabeth Licea PT - 05/11/2019 1100 EST [facility] Physical Therapy Discontinue/Discharge Note Date of Service: 05/11/2019 PRECAUTIONS: Limitations of treatment: CPR: withhold Intubation/Mechanical ventilation: provide Medication for arrhythmia: provide Level of Risk: A Diet Regular Activity as tolerated O2 Therapy: 1-4 lpm, adjust flow rate to maintain > 89% spO2 SUBJECTIVE: Pt states he is feeling ready for D/C. States he does think he needs day of D/C training tomorrow. OBJECTIVE: Intervention Completed Today: Start time: 1000 Total Therapy Minutes: 30 minute(s) Interventions included: Therapeutic activities (2): AD trial: Pt's own 4 wheel rollater from [employer] arrived. Height already adjusted to fit pt. Pt ambulates ~200ft mod I with rollater. Pt reports comfort with using device. Six Minute Walk Test^ (meters) 235.31 meters(with 4 wheel rollater). This test assesses distance walked over 6 minutes as a sub-maximal test of aerobic capacity/endurance. *Vitals Pre: HR 104, BP 99/64, spO2 97% (on room air) *Vitals Post: HR 107, BP 117/68, spO2 97% (on room air) Age/gender normative values: (Garrett, 2001) Age Gender Range for age norms 2 standard deviations around the mean (meters) Range for age norms 2 standard deviations around the mean (feet) 20-40 Male [phone] Female [phone] 41-60 Male [phone] Female [phone] (Gila, 2007) Age Gender 95% CI (meters) 95% CI (feet) 60-69 Male [phone] Female [phone] 70-79 Male [phone] Female [phone] 80-89 Male [phone] Female [phone] 2nd Session Time: Start time: 1130 Total Therapy Minutes: 30 minutes Interventions completed today: Therapeutic exercise (1): MMT assessment: See below Therapeutic activities (1): Functional mobility/endurance training: -Stairs: up/down 18- 7.5 stairs with step to pattern. Up with R rail and supervision, down with B rails mod I -Ambulation: ~7 minutes continuously mod I with 4 wheel rollater Car transfer: Verbal instruction and demonstration for technique. Pt performs stand step transfer to passenger seat of car simulater I. Would require set up/clean up assist to place 4 wheel rollater in vehicle. 3rd Session Time: Start time: 1300 Total Therapy Minutes: 30 minutes Interventions completed today: Therapeutic exercise (1): HEP practice: Handout provided. Pt performs 1 set of each independently. To perform 2-3x/daily on days he does not have HHPT. -Bridging: x15 -Sit <> stands: x15 from seat of 4 wheel rollater, arms across chest -Standing hip abd: x15 B with BUE support -Standing knee flexion: x15 B with BUE support Therapeutic activities (1): Overground ambulation: Ambulates x6 min continuously mod I with 4 wheel rollater to promote improved endurance. D/C recommendations: Led skilled discussion with pt re D/C recommendations including I in home and on stairs, S in community, performing HEP and outdoor walking with assistance. Pt verbalizes understanding. Patient/Family Education: Topic: Outcome measure improvements and functional implications Learner: patient Method: verbal Barriers to Learning: none noted Outcome: verbalized understanding Team Communication: With CM re: AD. With OT re: pt status. Patient has been seen in physical therapy since 04/24/19 for Therapeutic exercise, Therapeutic activities, Gait Training, Neuromuscular re-education and Wheelchair training. In this reporting period 05/04/19 to 05/11/19 the patient has been seen by a physical therapist at a frequency of 1-2 times/day, 6 days/week, for 90 minutes/day. Patient Profile: Patient is a 64 y.o. male admitted on 04/23/2019 secondary to debility following pneumonia complicated by sepsis, ARDS, renal failure, hemodynamic instability, COPD and Afib with RVR. The patient lives at [address] [place], [place] [address] ?? History of present illness: Per Dr. Oetro's H&P dated 04/23/19: Patient is a??64-year-old male with no prior medical history although he had not seen a physician in some 10 years. ??He presented to [facility] on 03/17/2019 with approximately 2.5 weeks of fever, loss of appetite, weakness,fatigue and diarrhea. ??Work-up at [facility] revealed pneumonia/ARDS and renal failure, as well as atrial fibrillation with RVR. ??[facility] with ARDS, volume overload, COPD and hemodynamicinstability. ??He had evidence of sepsis secondary to a left lower lobe pneumonia and MSSA bacteremia. ?? On admission he was placed on Levophed and propofol, transition to ketamine secondary to hypotension. ??He was on Zosyn and azithromycin, and changed to ceftaroline as well as given vancomycin. ??Antibiotics were narrowed to nafcillin with Zosyn on 03/21/2019. ??On 03/20/2019 he did have some acute de compensation with concern of pulmonary embolism, was given heparin but developed bright red blood per rectum and of his orogastric tube. ??He had an acute blood loss anemia was transfused 3 units packed red blood cells and 1 unit platelets, started on pressors. ??EGD is revealed diffuse stomach andduodenal ulcerations. ??CT scan of the abdomen pelvis showed the jejunum being edematous and thicken ed, there was marked gallbladder distention without radiopaque cholelithiasis or evidence of gallbladder wall thickening. ??There was a left adrenal nodule favoring adenoma. ??TIESHA showed no acute findings during his stay. ??The difficulty with weaning from mechanical ventilation and a tracheostomy tube was placed on 03/28/2019 and was additionally weaned from pressors. ??CT scan of the chest with multifocal pneumonia within both lungs, bilateral parapneumonic effusions, moderate aortic great vessel atherosclerotic calcifications and mucous in the right lower lobe airways. He again had an anemia and on 04/07/2019 received an additional unit of packed red blood cells. ??Hewas transitioned to the floor, but on 04/12/2019 developed hypoxia again, and was transferred back to the medical intensive care unit. ?? He again was stabilized and moved to the floors.?Follow-up imaging??showed slight progression ofmultifocal regions of airspace disease in the lungs and small bilateral pleural effusions. ??He??had??required continue supplemental oxygen up to 5 L last night with oxygen desaturation down to 86%. ??He subsequently was de cannulated and tolerated this well and nasogastric tube removed with patient taking a dysphagia level 3 diet well. ??He has been seen by all therapy modalities and actively participating, being independent with all mobility and self-cares prior to his hospitalization. ??Given functional limitations, he was evaluated and determined to be an appropriate candidate for acute inpatient rehabilitation.? This patient's current status is similar to the pre-admission screening and is appropriate for inpatient rehabilitation admission. Relevant Objective Findings: Arousal, Attention, and Cognition: Alert Oriented to Person, Place and Time Communication: Able to make needs known. Hoarse, breathy/muffled voice with air escape at stoma at times. Cognition: Intact Motivation: Fully willing to participate in therapy today. ?? Cardiopulmonary: Vital Signs:??See with interventions above. Mild hypotension without symptoms. spO2 consistently >/=92% on room air in last 2 days. Breath sounds (from eval): Absent B bases. Crackles at L upper and middle lobes. Cough: Moderate wheezing/productive cough ?? Integumentary/Anthropometric Characteristics: Palpation/Observation: -Cachectic -Tracheostomy site covered, unclosed -LUE PICC -Steadily improving rash on R upper arm, stomach, back, and LEs thought to be due to medication (See RN and MD notes for details) -Unstageable wound at coccyx (not viewed by this therapist- See RN and MD notes for details) -Distended rib cage Posture: Forward head and Protracted shoulders Height: Height: 181.6 cm (71.5) Weight: Weight : 54 kg (119 lb) ?? Range of Motion and Joint Integrity: Active Range of Motion: Within normal limits except as noted Upper Quarter: Left Upper Extremity: Right Upper Extremity: Cervical Spine: ?? Lower Quarter: B knees lacking ~5 deg knee extension with hard end feel Left Lower Extremity: Right Lower Extremity: Lumbar Spine: ?? Muscle Performance: Strength: Upper Quarter: UE MMT Right (04/24) Left (04/24) Right (05/11) Left (05/11) Shoulder flexion 4/5 3+/5 5/5 5/5 Shoulder abduction - - - - Elbow flexion 4/5 3+/5 4/5 4/5 Elbow extension 4/5 4/5 5/5 5/5 Wrist extension - - - - Wrist flexion - - - - Installation Technician strength Moderate Moderate Strong (symmetrical) Strong (symmetrical) ?? Cervical Spine: NE ?? Lower Quarter: LE MMT Right (04/24) Left (04/24) Right (05/11) Left (05/11) Hip flexion 3+/5 3+/5 4/5 4/5 Hip abduction (modified in sitting) Able to hold against mod resistance Able to hold against mod resistance Able to hold against max resistance Able to hold against max resistance Hip adduction (modified in sitting) Able to hold against mod resistance Able to hold against mod resistance Able to hold against max resistance Able to hold against max resistance Knee extension 4/5 4/5 5/5 4/5 Knee flexion - - - - Ankle DF 3+/5 3+/5 3+/5 3+/5 Ankle PF - - - - Great toe extension 3+/5 3+/5 3+/5 3+/5 ?? Lumbar Spine: NE ?? Sensation, Reflexes, and Nerve Integrity: Light Touch Sensation: Denies changes in sensation. No deficits noted in function. Proprioception: NE ?? Neuromotor Function/Development: No problems noted ?? Balance, Mobility, and Gait: Balance: Sitting Balance Static: Independent Dynamic: Independent Standing balance Static: BBS 47/56 Dynamic: Requires BUE support on 4 wheel rollater to ambulate independently >10ft Mobility: Bed Mobility: Roll Left and Right - Tasks involve the ability to roll from lying on back to left and right side, and return to lying on back Assistance Needed: Independent Sit to Lying - Task involves the ability to move from sitting on side of bed to lying flat on the bed Bed Options/Device: Flat bed;No rails Assistance Needed: Independent Lying to Sitting on Side of Bed - The ability to safely move from lying on the back to sitting on the side of the bed with feet flat on the floor, and with no back support Bed Options/Device: Flat bed;No rails Assistance Needed: Independent Sit to Stand - The ability to safely come to a standing position from sitting in a chair or on the side of the bed Assistance Needed: Independent Transfers: Chair/[id number]-hl-[id number] Transfer - The ability to safely transfer to and from a bed to a chair (or wheelchair) Transfer Type: Stand-step Assistance Needed: Independent Walk/Wheelchair Wheelchair Propulsion Distance patient was able to propel: 150ft Assistance Needed: Independent Gait Distance patient ambulates: >1000ft Assistance Needed: Independent;Adaptive equipment Device used: 4 wheeled walker Gait deviations: Slightly increased forward trunk flexion throughout, slight L toe out, decreased gait speed, further decreased gait speed as well as decreased eccentric DF control from IC/initial stance with increased ambulation distances Stairs Number of stairs patient climbs up and down: 18 Assistance Needed: Independent;Adaptive equipment Device used: Two rails Technique: step to step gait Self-Care, Home Management, Work, and Leisure: See OT Note Outcomes: PT Outcomes 04/24/2019 04/25/2019 04/26/2019 5-Time Ukk-dk-Eenke (sec) 28.31 6MW Distance Walked (meters) [place] Balance Score (n/56) 20 Gait Speed - Distance (M) 4.27 Gait Speed - Time (sec) 88.38 Gait Speed - Velocity (meters/sec) 0.05 PT Outcomes 04/28/2019 05/01/2019 05/04/2019 5-Time Jaw-zg-Emotc (sec) 6MW Distance Walked (meters) 37.97 176 [place] Balance Score (n/56) 39 Gait Speed - Distance (M) 10 Gait Speed - Time (sec) 53.04 Gait Speed - Velocity (meters/sec) 0.19 PT Outcomes 05/10/2019 05/11/2019 5-Time Abw-ct-Vzhac (sec) 12.81 6MW Distance Walked (meters) 235.31 [place]eno Balance Score (n/56) 47 Gait Speed - Distance (M) 10 Gait Speed - Time (sec) 17.44 Gait Speed - Velocity (meters/sec) 0.57 ASSESSMENT: The patient has been appropriate for skilled physical therapy at acute rehab to addressthe physical therapy diagnosis??of impaired mobility due to debility from pneumonia complicated by sepsis, ARDS, renal failure, hemodynamic instability, COPD and Afib with RVR. ??The patient???s primary impairments??include decreased respiratory function, decreased strength, decreased functional strength and endurance, decreased activity tolerance, impaired communication??and impaired balance. ??These impairments contribute to functional limitations??including requiring adaptive equipment for ambulation and stairs and S in community, which contribute to difficulty with participation??in self care, work, and leisure activities.? Pt has made significant functional gains since admission to rehab. He improved from walking 14ft with RW and assist of 2 on eval to progressing to mod I with 4 wheel rollater. He was initially havingO2 desaturation with minimal activity and is now maintaining spO2 >/=92% on room air with all mobility. He demonstrates improved UE and LE strength (from MMT testing) as well as improved functional strength from decreased time to perform modified 5xSTS with use of UEs. His 6MWT distance increased significantly from 37.97m to 235.31m indicating improved functional endurance. His gait speed alsoimproved significantly from 0.05m/s to 0.57m/s. His fall risk is also decreased with BBS improvement from 20/56 to 47/56. All outcome measures continue to be below age and gender matched norms indicating that he likely continues to be below his baseline as anticipated. Due to increased reliance on BUEs for mobility, inability to stand from standard height chair without UE use, BBS less than age and gender matched norms and decreased functional strength and endurance, pt remains at an increased risk for falls. However, pt has met 9 of 10 short term goals and 6 of 9 assisted goals and has appropriate level of assist available at home for safe D/C. Physical Therapy Prognosis: With continued care of PT in the home health setting and focus on continued gains in functional strength and endurance, expect that patient will be able to return to PLOF. Short-Term Goals:??7-10 days ?? Pt will be I with bed mobility without bed features. MET 05/04 ?? Pt will perform transfers with supervision. MET 05/04 ?? Pt will ambulate 75ft with AD as needed and min CGA of 1.MET 05/04 ?? Pt will negotiate 4 stairs with min A of 1-2 and B rails. MET 05/04 ?? Pt will participate in gait speed assessment. MET 05/04 ?? Pt will participate in 6MWT to demonstrate improved endurance and hemodynamic response. MET 11/1 ?? Pt will participate in Cedeno Balance Scale assessment to quantify fall risk. MET 05/04 ?? Pt will perform sit <> stand from standard height chair with no UE support. DISCONTINUE ?? Pt will independently perform pursed lip breathing and activity pacing with ambulation and functional mobility. MET ?? Pt will maintain spO2 > 90% on RA with all mobility. MET ?? Long-Term Goals:??3 weeks ?? Pt will ambulate??150ft mod I to I with least restrictive AD to demonstrate ability to participate in household mobility. MET ?? Pt will be cleared I in room to demonstrate safety with household mobility from carolyne to dusk. MET ?? Pt will negotiate??full flight of??stairs with unilateral??rail and supervision??to demonstrate ability to access second story of home. MET ?? Pt will perform car transfers with supervision to demonstrate ability to attend medical appointments with caregiver. MET ?? Pt will ambulate with gait speed of??>/=0.6m/s??to demonstrate improved safety with household/community ambulation. DISCONTINUE ?? Pt will ambulate >/=54m from initial 6MWT distance to demonstrate significant improvement in functional endurance. MET 05/04 ?? Pt will score >/=??45/56 on the BBS to demonstrate decreased fall risk. MET ?? Pt will perform 5xSTS without UE use in <20 seconds to demonstrate improved functional strength. DISCONTINUE ?? Pt will maintain spO2 > 94% on RA with all mobility. DISCONTINUE ?? Updated goals: 3 weeks from admission ?? Pt will ambulate >/=230m on the 6MWT to meet MDC from last time assessed. PLAN: D/C Physical Therapy Recommended Discharge Destination: Home with caregiver (first to girlfriend's home for 1-2 weeks) Recommended Discharge Services: Home health physical therapy Recommended Equipment Needs: 4 wheel rollater Other recommendations: None Contact information: Pager: [phone] Elizabeth Licea, PT 05/11/2019 11:28 * Sheela Anthony OT - 05/11/2019 0902 EST [facility] Rehabilitation Therapy Inpatient Rehabilitation [facility] Occupational Therapy Discontinue/Discharge Note Date of Service: 05/11/2019 Precautions: ?? Dysphagia diet-Stage 3 thin liquids ?? Activity as tolerated ?? Risk A ?? DNR/DNI ?? Supplemental O2 1-4 Lts as needed to maintain sats >89% ?? Sacral ulcer ?? Notify physician for: - Blood Pressure: systolic blood pressure greater than 180 mmHg or systolic blood pressure less than 90 mmHg - Heart Rate: less than 55 or greater than 120 - Respiratory Distress: RR less than 8 or greater than 30 - Temperature: greater than 38.0 degrees C (100.4 degrees F SUBJECTIVE: I'm feeling pretty good about everything. OBJECTIVE: Interventions completed today: Start time: 0900 Scheduled time: 2663-0128 Total Therapy Minutes: 60 minute(s) Intervention included: Therapeutic Activities (2) Therapeutic Exercise (2) -led skilled discussion re: smoking cessation and community resources and programs available thru [facility] if needed. -Completed functional transfer training to promote safe transfers while at home ?? Pt completed tub transfer with supervision with external support from vertical grab bar. OT suggested side-stepping over tub in order to prevent falls. ?? Pt completed functional transfers from standard bed, recliner, couch, and chair successfully. -Completed circuits of various BUE exercises to increase endurance and strength required for ADL and IADL participation ?? Exercises consisted of 15 reps of: pronation/supination with 3# ball, large ball roll with forceagainst wall, basketball bounce on ground with force, and chest press with 2.5# weight. Pt juggled with small balls after completing exercise to improve had coordination. Pt maintained consistent pace through circuit of exercises and took rest break at end. Rated RPE 6. ?? Pt completed a second circuit of 10 reps of each exercise Second session Start Time: 1330 Total Minutes Treatment 2: 30 Interventions included: Therapeutic Activities (2) -Pt gathered/packed items in closet in preparation for d/c tomorrow with a focus on increased endurance and household management participation. Pt maintained consistent pace throughout and initiated rest breaks at end of packing. -Pt ambulated to lobby to return magazines and demonstrated safe reaching to low surface. Trialed use of new 4ww, pt stated comfort level with using at home. Vital Signs: Vital signs have been stable with interventions and were not monitored. Patient/Family Education: Topic: Benefits of activity Role of OT D/C planning Learner: patient Method: verbal Barriers to Learning: none noted Outcome: verbalized understanding Team Communication: This note serves as primary form of team communication this date. The patient has been seen in occupational therapy since 04/24/19 for: 5-6x/wk for 60-90 minute sessions: Occupation Based Activity - Basic Activities of Daily Living, Occupation Based Activity - Instrumental Activities of Daily Living, Purposeful Activity, Preparatory Method - Exercise, Patient/Family Education and therapeutic activities Relevant Objective Findings: Body Functions and Performance Skills Mental Functions: ?? Good safety awareness and insight to functional deficits ?? Demonstrates ability to follow mult-step directions during ADL and IADL ?? Maintains attention during functional tasks without becoming distracted ?? Memory intact Global mental functions: ?? Pt alert and oriented throughout all sessions ?? Good impulse control Sensory Functions:? Touch: No deficits notes Vision:??No concerns noted per pt report Hearing: Patient able to understand conversational tones Neuromusculoskeletal and Movement Related Functions: Range of motion: BUE WNL Strength: B shoulder flexion 3+/5. B elbow flexion 4/5. B elbow extension 5/5. Muscle endurance: Pt able to tolerate 15 minutes of standing activity. Control of voluntary movement: Pt manipulates small self-care items without difficulty. Involuntary movement reactions: Pt demonstrates good sitting balance while sitting at EOB. Pt demonstrates safe standing without LOB during functional mobility and self care. Skin functions: -pt receiving daily dressing changes to trach site and coccyx wound Cognitive FIM Comprehension: Complete [place] Expression: Complete [place] Social Interaction: Complete [place] Problem Solving: Complete [place] Memory: Complete [place] Skills requiring prompting include Areas of Occupation and Performance Skills: Basic Activities of Daily Living: Feeding: Independent Oral Hygiene: Independent Hair: Independent Face: Independent Hands: Independent Shave/Make-up: Bathing: Supervision Shower Location: Shower Upper Body Dressing: Independent Street clothing Pants and Underwear: Independent Street clothing Footwear: Independent Toileting: Independent Toilet Transfer: Independent Transfer Type: Stand-step Standard height toilet Tub/Shower Transfer: Independent Tub Location: Tub Functional Mobility: Mod I with 4WW Instrumental Activities of Daily Living: -Pt has successfully completed a full meal prep with a focus on increased endurance and IADL participation. -Pt has completed a variety of home management tasks while demonstrating good pacing and initiationof rest breaks as needed. ASSESSMENT: Shirlene Bryan is a 64 y.o. male admitted on 04/23/2019 due to functional limitations s/p debility following respiratory failure due to MSSA pneumonia and septic shock. Pt had a complicated medical stay involving a tracheostomy, upper GI hemorrhage from a multifocal ulcer, severe malnutrition and a deep tissue injury. He initially presented to rehabilitation with decreased functionalactivity tolerance, standing balance, profound weakness, malnutrition, fatigue, decreased coordination and poor O2 saturation with mild exertion, all impacting his ability to independently complete self-care, household management, and leisure activities. Prior to admission, the patient was independent in all aspects of ADL and IADL with occasional shared responsibilities with significant other. The patient has benefited from skilled OT at an acute rehab level to a reach a modified I level forADL and IADL. Pt will have assist at home with higher level IADL from significant other. Pt has been trained with a HEP and has been provided with a shower chair and 4ww for d/c home. Notable gains include: improved endurance, improved BUE strength, increased standing balance, and overall ADL/IADL participation. See follow up services below. GOALS: Short Term Goals:?7-10 days ? Pt will increase functional standing tolerance to??2??minute intervals while maintain O2 sats >89% Met ?? Pt will complete all grooming tasks??standing??at sink with supervision. Met ?? Pt will complete??ambulatory toilet transfer with??RW and contact A x1 Met ?? Pt will complete UB/LB bathing with supervision. Met ?? Pt will independently implement PLB techniques into ADL routine??and maintain O2 sats Met ?? Slab Grinder Goals:?3 weeks All Senior Care Goals met ?? ? Pt will complete all grooming tasks standing??at sink with independence. ? Pt will complete??shower??transfer with supervision. ? Pt will shower with??distant supervision. ? Pt will complete toilet transfer with??independence. ?? Pt will complete lower body dressing with??independence. ?? Pt will complete light meal prep with??supervision. ?? Pt/caregiver will verbalize understanding of recommendations for AE. ?? Pt/caregiver will verbalize understanding of energy conservation techniques. ?? Pt will independently implement energy conservation techniques into self-care routine. ? Pt/caregiver will verbalize good understanding of fall prevention education and will identify ??strategies to implement into daily routine for safety at home. ?? Pt/caregiver will demonstrate independence with all home exercises as instructed by therapy and verbalize daily carryover of exercises. PLAN: Discontinue occupational therapy. Discharge Plan: DC home to homes x1-2 weeks (lives across ) prior to transitioning home Follow-up Services: Home health occupational therapy Home health aide Discharge Equipment: Shower Chair-issue thru [facility] Pager: [phone] Sheela Anthony OT, 05/11/2019, 14:03 * Judi Colindres - 05/10/2019 1538 EST CM notes [facility] is unable to provide a rollator tall enough for pt's height. I spoke with Cheryl at [facility], and have faxed chart notes and script to her. However, she does state that she cannot bill his insurance for the size/type of walker that he needs, as it is way over what Medicare/medicaid will reimburse, and if she tries to bill insurance, thenrománkenny cannot bill to the patient. Will check with cheryl again in the morning to confirm walker availability, and discuss with CM department for payment. Judi Shin RN CM * Martha Reddy MD - 05/10/2019 1218 EST INPATIENT PROGRESS NOTE DATE OF SERVICE:05/10/2019 PCP Maile Laureano LOS: 17 days REHABILITATION ADMISSION: 04/23/2019 REHAB ADMISSION DX: Severe deconditioning S/P pneumonia/MSSA bacteremia/ARDS CC: General weakness SUBJECTIVE: Patient was seen today for tolerance of rehab program. Definitely feeling more positive about the progress she is making. He has questions about how to deal with his ongoing tracheostomy leak. Significant other will be coming tomorrow for training with anticipated discharge on Tuesday and he feels he will be ready for that. No fevers or chills. No shortness of breath Patient Active Problem List Diagnosis ??? Atrial fibrillation with RVR (HCC-CMS) ??? Acute respiratory failure with hypoxia (HCC-CMS) ??? Septic shock (HCC-CMS) ??? ARDS (adult respiratory distress syndrome) (HCC-CMS) ??? SIRISHA (acute kidney injury) (HCC-CMS) ??? Anemia ??? Thrombocytopenia (HCC-CMS) ??? Bacteremia ??? Fever ??? Encephalopathy ??? Upper gastrointestinal bleed Current Facility-Administered Medications: acetaminophen (TYLENOL) tablet 650 mg oral Q4H PRN albuterol (ACCUNEB) nebulizer solution 2.5 mg nebulization Q4H PRN cholecalciferol (Vitamin D3) tablet 1,000 Units oral QHS DILTiazem (TIAZAC) ER capsule 120 mg oral DAILY diphenhydrAMINE (BENADRYL) capsule 25 mg oral Q6H PRN enoxaparin (LOVENOX) injection 40 mg subcutaneous DAILY ferrous sulfate EC tablet 324 mg oral DAILY (BREAKFAST) melatonin tablet 5 mg oral QHS mometasone-formoterol (DULERA) 100-5 mcg/actuation inhaler 2 Puff inhalation BID Multivitamins with Minerals tablet 1 Tab oral DAILY pantoprazole (PROTONIX) tablet 40 mg oral QHS senna (SENOKOT) tablet 2 Tab oral QHS tiotropium (SPIRIVA) 18 mcg inhalation capsule 18 mcg inhalation DAILY triamcinolone (KENALOG) 0.1 % ointment topical BID Wool Alcoh-Min Ntm-Iazwo-Hhpjn (EUCERIN) cream topical BID OBJECTIVE: Estimated body mass index is 16.92 kg/m?? as calculated from the following: Height as of this encounter: 181.6 cm (71.5). Weight as of this encounter: 55.8 kg (123 lb). Last 5 Weights Filed This Admission 04/23/19 1339 05/02/19 1330 Weight: 54 kg (119 lb) 55.8 kg (123 lb) 03/17/2019 admission weight 70 kg Patient Vitals for the past 48 hrs: BP Pulse Resp Temp 05/10/19 0600 133/61 69 14 36.6 ??C (97.9 ??F) 05/09/19 0602 101/59 63 14 35.7 ??C (96.3 ??F) Patient Vitals for the past 24 hrs: Numeric Pain Level (Scale 1-10) Asleep 05/10/19 0800 0 -- 05/10/19 0206 0 Reassessed, sleeping comfortably, RR WNL. 05/09/19 2307 0 Reassessed, sleeping comfortably, RR WNL. 05/09/19 2100 0 -- 05/09/19 1500 0 -- EXAM: Exam repeated and stable 05/10/2019 Affect pleasant. Cooperative. HENT: AT, NC, MMM. Tracheostomy site still with some air leak. Heart rate regular. Respirations even, unlabored. Slightly loose secretions with occasional weak cough. Abdomen benign. Skin:Unstageable sacral ulcer. Last image documentation 05/04 scanned records Edema: No peripheral edema Musculoskeletal: No joint swelling or restrictions Neuro:Speech clear, fluent. No confusion noted. CN grossly intact. PERRL Motor exam: 5-/5 in general except for bilateral DF 4/5. Symmetrical but significantly diminished muscle bulk. Tone: Normal Sensation: intact to light touch, deep pressure proximally and distally. Coordination: no ataxia, no tremor LABS: Kidney/Electrolytes: Lab Results Component Value Date NA 139 05/10/2019 K 4.4 05/10/2019 CL 109 05/10/2019 CO2 20 (L) 05/10/2019 CREATININE 0.65 (L) 05/10/2019 BUN 66 (H) 03/24/2019 CALCGFR 102 05/10/2019 Lab Results Component Value Date/Time NA 139 05/10/2019 05:36 NA 135 (L) 04/22/2019 04:40 NA 136 04/20/2019 05:29 NA 136 04/18/2019 05:31 Lab Results Component Value Date CALCIUM 8.8 04/22/2019 CALCCA 9.9 04/22/2019 Lab Results Component Value Date MG 1.8 04/22/2019 Lab Results Component Value Date INR 1.7 (H) 03/20/2019 INR 1.4 (H) 03/17/2019 INR 1.3 (H) 03/17/2019 Lab Results Component Value Date WBC 5.34 05/10/2019 HCT 33.3 (L) 05/10/2019 MCV 89 05/10/2019 MCH 28.7 05/10/2019 MCHC 32.1 (L) 05/10/2019 PLT 217 05/10/2019 RBC 3.73 (L) 05/10/2019 RDWCV 18.8 (H) 05/10/2019 Lab Results Component Value Date/Time HCT 33.3 (L) 05/10/2019 05:36 HCT 26.3 (L) 04/22/2019 04:40 HCT 24.9 (L) 04/20/2019 05:29 HCT 24.7 (L) 04/18/2019 05:31 Lab Results Component Value Date/Time GLUCOSEFINGE 126 (H) 04/07/2019 11:20 GLUCOSEFINGE 130 (H) 04/05/2019 05:36 GLUCOSEFINGE 117 (H) 04/04/2019 23:31 GLUCOSEFINGE 117 (H) 04/04/2019 18:31 GLUCOSEFINGE 124 (H) 04/04/2019 11:51 GLUCOSEFINGE 114 (H) 04/04/2019 06:23 GLUCOSEFINGE 104 (H) 04/03/2019 23:50 GLUCOSEFINGE 123 (H) 04/03/2019 18:10 ASSESSMENT: 64-year-old gentleman initially presenting 03/17/2019 to [facility] with several weeks of feve/weakness/fatigue/diarrhea with admitting diagnoses of pneumonia/ARDS/renal failure/atrial fibrillation RVR. Initially admitted in acute hypoxic respiratory failure with volume overload. Diagnosis of left lower lobe pneumonia with MSSA bacteremia. Prolonged hospital course with marked deconditioning and wheezing. The patient is medically stable to continue in the rehabilitation program. Team notes reviewed. Ongoing gains. Active Hospital Problems Diagnosis ??? ARDS (adult respiratory distress syndrome) ([facility]) [J80] ??? SIRISHA (acute kidney injury) ([facility]) [N17.9] ??? Atrial fibrillation with RVR ([facility]) [I48.91] ??? Acute respiratory failure with hypoxia ([facility]) [J96.01] Team/Patient/Family Communication: PLAN: #Severe debility and deconditioning S/P pneumonia/MSSA bacteremia 03/17/2019 with secondary Impairedmobility and ADLs: ?? PT/OT acute level therapies to address mobility, self-care, ADL deficits ?? SECURITY ASSISTANT to monitor swallowing and modified diet needs. Has been progressed to a regular consistency diet ?? bus company manager for self-care ADL support, education, patient/family training - S/P pneumonia/bacteremia and hypoxic failure/ARDS: Tracheostomy states of healing ?? DuoNeb's twice daily, guaifenesin twice daily ?? Tracheostomy dressing to closed -Duodenal ulcer/UGI: Protonix 40 mg daily. Asymptomatic ?? EGD identifying multiple clean-based ulcers in stomach and duodenum and one visible vessel treated with an Endo Clip x1. Required 3 units PRBCs, 1 unit platelets. Pathology only with erosive gastritis identified. -SIRISHA: Renal function has normalized -Anemia: Associated with severe acute illness, GI bleed. -Sacral ulcer: Unstageable. Wound care nursing monitoring. Thera honey. -Atrial fibrillation: Appears resolved. Metoprolol had been stopped as it was felt to be because ofrash. ?? Diltiazem for rate control ?? Anticoagulation on hold given recent GI bleed and low chads score -Rash: Input from dermatology review review of images. [place] to be secondary to metoprolol. ?? Treating symptomatically with triamcinolone, Benadryl. ?? Significantly improving DVT Prophylaxis:??Pharmacologic Prophylaxis:??Enoxaparin (Lovenox) 40 mg SQ daily ?? Multidisciplinary team rounds to review progress/discharge barriers and plans: Every [employer] Scheduler: Ange Jovel RN Case Manager: Judi Shin RN TEAM ROUNDS: patients full status reviewed and discharge barriers discussed. Pt. progressing well and tolerating therapy. Refer to rounds report in chart. DISCHARGE PLAN: Significant other's home Home health services: RN, OT, PT, SHEEP FARM MANAGER ACID LOADER Maile Laureano, on 05/17 at 2:40 pm. Expected Discharge Date: 05/12/19 Martha Reddy MD No future appointments. Portions of this document have been prepared with speech recognition software or keyboard data control assistant techniques. Minor irregularities or keyboarding misprints may be present. * Elizabeth Licea, PT - 05/10/2019 0891 EST [facility] Rehabilitation Therapy Inpatient Rehabilitation Center [facility] Physical Therapy Encounter Note Date of Service: 05/10/2019 Subjective/Objective Subjective Pt states he would most like to focus on endurance for last few days at rehab. Objective Start time: 1300 Total Therapy Minutes: 30 minute(s) Interventions completed today: Therapeutic activities (1): Overground ambulation: To promote improved activity tolerance with instruction to walk until at 6.5/10 on modified [place] dyspnea scale. Pt ambulates for 15 minutes consecutively with 4 wheel rollater and distant S. Gait speed assessed as below at start of walking, speed decreases with increased timeambulating. SpO2 92-07% throughout. Gait Speed^ (meters/second) 0.57 meters/sec. This test assesses walking speed over an established distance. Age/gender normative values (Gila, 2011) Age Gender 95% CI meters/second 20-29 Male 1.21-1.47 20-29 Female 1.08-1.49 30-39 Male 1.31-1.53 30-39 Female 1.25-1.41 40-49 Male 1.27-1.47 40-49 Female 1.22-1.42 50-59 Male 1.12-1.49 50-59 Female 1.10-1.55 60-69 Male 1.03-1.59 60-69 Female 0.97-1.45 70-79 Male 0.95-1.41 70-79 Female 0.83-1.50 80-89 Male 0.61-1.22 80-89 Female 0.56-1.17 Patients (age 65 and older) who are hospitalized with a gait speed < 0.4 meters/second had significantly decreased odds of discharge to home compared to patients with a gait speed > 0.6 meters/second. (Ostvince, 2012) The minimal clinically important difference (MCID) for community-dwelling elderly is 0.05 to 0.13 meters/second. (Perara, 2006) Gait Training (1): Stair training: Up/down 18- 7.5 stairs with unilateral rail and very close S. When ascending has increased forward flexion and use of momentum, improved with cueing to use strength of legs. When descending has decreased eccentric control, slightly improved with cues to lower with control. Pt takes~4min standing rest break at top of stairs stabilizing BUEs and with excessive use of accessory resp iratory muscles. spO2 95% post. 2nd Session Time: Start time: 1430 Total Therapy Minutes: 30 minutes Interventions completed today: Therapeutic activities (1): 5 Times Sit to Stand Test^: 12.81(with UE use) seconds. This test is a measure of functional lower limb muscle strength that may also be useful in quantifying functional change of transitional movements. *Performs with S. *Unable to rise from standard height chair without UE use Age normative values (Gila, 2007) Age Range for age norms 2 standard deviations around the mean (seconds) 19-49 3.6 - 8.8 50-59 4.1 - 10.1 60-69 1.9 - 14.3 70-79 3.8 - 16.2 80-89 3.8 - 17.4 Inability to arise one time from a chair with a seat height equal to subject's knee height without the use of upper extremities was found to be associated with a risk for falls in the elderly population (age 70 and older). (Waqas, 1989) An identified cut off score of 12 seconds could predict community-dwelling elderly (age 74 to 98) who have or are at risk of falls (66% sensitivity and 55% specificity). (Brandon, 2008) Overground ambulation: To improve activity tolerance. Ambulates ~300ft with 4 wheel rollater, mod I. Cleared mod I on unit. Neuromuscular re-education (1): Cedeno Balance Scale (BBS)^ 47/56. This test is a 14-item objective measure designed to screen balance in adult populations. Balance is one domain of fall risk. As the score decreases, the patient may exhibit more balance deficits putting them at increased risk for falling. ([place], 2008, Kashif, 2004, Ashlie, 2016) 1. Sitting to standing 3 2. Standing unsupported 4 3. Sitting unsupported feet on floor 4 4. Standing to sitting 4 5. Transfers 3 6. Standing unsupported with eyes closed 4 7. Standing unsupported with feet together 3 8. Reaching forward with outstretched arm 4 9. melter supervisor object from floor 4 10.Turn look behind over left/right shoulder 4 11.Turn 360 degrees 3 12.Stool touch 2 13.Standing unsupported one foot in front 3 14.Standing on one leg 2 Total 47/56 Age/gender normative values for community dwelling elders (Rg, 2002) Age Gender 95% CI 60-69 Male 55-56 60-69 Female 54-56 70-79 Male 52-56 70-79 Female 52-55 80-89 Male 51-54 80-89 Female 49-52 3rd Session Time: Start time: 1530 Total Therapy Minutes: 30 minutes Interventions completed today: Therapeutic activities (2): Endurance/activity tolerance trainin) Ambulation: 10min 12sec with 4 wheel rollater mod I. Pt talks intermittently throughout. 2) NuStep: -4:27 (at workload 5) and 4:48 (at workload 6) -Seat/arms: 11 -Waffle cushion on seat for comfort and skin protection Patient/Family Education: Topic: Family training can be held Tuesday prior to D/C Learner: patient Method: verbal Barriers to Learning: none noted Outcome: pt to talk with SO and consider Team Communication: Communication re: pt POC and DC planning with treatment team at interdisciplinary team rounds. Updated mobility status on whiteboard and sticky note. Assessment/Plan Assessment Pt continues to make excellent progress in acute rehab. He is cleared mod I in jose using 4 wheel rollater. He demonstrates significant improvement in gait speed and on Cedeno Balance test from when last assessed. Of note, pt also was able to perform Cedeno Balance test in ~12 minutes today when at initial testing it took nearly 60 minutes due to his decreased activity tolerance. Despite improvements, pt's gait speed and BBS scores continue to be below age and gender matched norms. He is also unable to perform a sit <> stand from a standard height chair without UE support. He did, however, have improvement with modified 5xSTS with use of hands. Pt on track for D/C Tuesday. Plan Activity tolerance training with Segmental breathing, Activity pacing, Pursed lip breathing 6MWT HEP Balance and/or functional strength and endurance training Caregiver training on day of D/C if needed Reiterate D/C recommendations Primary Therapist: Contact information: Pager: [phone] Elizabeth Licea, PT 05/10/2019 15:08 * Viktoria Farr RN - 05/10/2019 0703 EST Images from the original note were not included. 05/10 ?? 04/23: re-consulted to assess pressure injury ?? Pt known to wound care from admission on main campus. Pt was admitted with a deep tissue injury that quickly evolved and became unstageable. Wound care saw pt yesterday, please review note, pic below. Spoke with bedside nurse Dimple and suggested that Sanytl continue to be used to debride yellow slough from base. Wound care will continue to follow. ?? 04/27 - slight improvement with debridement of yellow slough. Surrounding area continues to be fragile blanchable erythema. Rash on surrounding skin has improved. ?? 05/04 - base of mid coccyx ulcer continues to be unstageable with yellow slough filling the base. Surrounding area that was breaking down has improved. Due to slow responds from Santyl ointment I suggest to d/c this treatment and use Therahoney to base of wound. I applied first treatment of honey this morning. Assessed bilateral acromion's per request of nursing. These areas are red, irritated and blanchable. Mepilex border dressing in place for protection Current assessment: base of coccyx ulcer continues to be unstageable with yellow slough in base of wound. Per nursing the patient's nutrition is good with plenty of protein. He is always sleeping on his side, offloading pressure from his coccyx wound. I am not sure why this wound is not improving. We will continue with the honey for another week to see if there is any improvement. If not then we will rethink the dressing. Per nursing the bilateral acromion's are still blanching ?? Recommend Dime size amount of Therahoney to 2x2 dressing, place over yellow slough on coccyx wound. Cover with??Mepilex??sacral??border. Change every 5-7 days or prn for saturation. Lift daily to assess area and place back down.? Offload pressure from coccyx at all times Turn and reposition pt q2hrs Float heels off from mattress?? Viktoria Farr, Pressure Ulcer Prevention Nurse * Amy Langston, OT - 05/10/2019 0657 EST Rehabilitation Therapies Inpatient Rehabilitation [facility] Occupational Therapy Encounter Note Date of Service: 05/10/2019 Subjective/Objective SUBJECTIVE: I'm feeling pretty good about everything. pt's response when asked if he feels ready to return home. OBJECTIVE: First Session Start time: 1000 Scheduled time: 8563-3904 Total Therapy Minutes: 60 minute(s) Interventions included: Self-Care/Home Management (1) Therapeutic Activities (3) -Pt completed UB/LB dressing in standing with supervision. Demonstrated safety awareness by completing components of LB dressing in sitting. -Pt completed laundry tasks with a focus on improved endurance and IADL participation ?? Pt gathered clothing in laundry basket and transported it on 4ww. Ambulated to laundry room withsupervision. ?? Pt removed clothing from washing machine and placed in dryer. Loaded clothing into washing machine and manipulated dials without difficulty. Completed all tasks without rest break. -Pt completed household tasks in room while standing to promote increased endurance. Safe functional mobility in room without 4ww. -Completed BUE there ex to increase strength required during ADL and IADL ?? Discussion with pt regarding what would be most helpful to include on a HEP sheet. Pt stated what he would like each exercise to be written as in order to remember each one correctly. OT checked for understanding by having pt complete each exercise after reading the name. Pt verbalized comfort level with HEP. ?? Shoulder flexion to 90 degrees while holding 4# ball in standing. Completed 2 sets of 12 reps with rest breaks in between. ?? Completed standing exercise with large ball, throwing ball at wall and rolling on mat with force. Completed 2 min of rolling ball on mat and 1 min of throwing ball against wall. Vital signs: Vital signs have been stable with interventions and were not monitored. Patient/Family Education: Topic: Benefits of activity Safety awareness Learner: patient Method: verbal Barriers to Learning: none noted Outcome: verbalized understanding Second Session Start time: 1330 Scheduled time: 6100-6765 Total Therapy Minutes: 30 minute(s) Interventions included: Therapeutic Activities -Completed temporary handicapped parking placard this date and signed by . Instructed pt on obtaining handicap placard within community. -Reviewed ECT and home safety handout with pt and educated on ways to implement these techniques athome. Further discussed home set-up and ways pt can be most successful with daily tasks at home. -Pt ambulated to laundry room with supervision to retrieve laundry. Pt loaded laundry from dryer tolaundry basket, demonstrated safe body mechanics while reaching low height. Transported laundry back to room on 4ww seat. -Pt initiated rest break, then proceeded to fold all laundry in standing. Put away/organized all clothing in closet. Vital signs: Vital signs have been stable with interventions and were not monitored. Patient/Family Education: Topic: Energy conservation Safety awareness Learner: patient Method: verbal and handout Barriers to Learning: none noted Outcome: verbalized understanding Team Communication: Communicated at weekly rounds meeting this date regarding pt's d/c. Assessment/Plan ASSESSMENT: Pt tolerated therapy well today with good motivation to participate. Pt demonstrates good understanding of ECT, home safety, and HEP, and is on track for d/c date of 05/12. Pt has also made notable gains with BUE strength and functional endurance. The patient remains appropriate for skilled OT services at an acute rehab level to continue to make therapeutic gains and receive education for a safe d/c home. PLAN: ?? Tub transfer training ?? Added challenges to BUE strengthening ?? Additional functional transfer training (standard bed, couch, regular chair) Pager: [phone] ENEDINA ANNA, 05/10/2019, 6:57 * Martha Reddy MD - 05/09/2019 1128 EST INPATIENT PROGRESS NOTE DATE OF SERVICE:05/09/2019 PCP Provider None LOS: 16 days REHABILITATION ADMISSION: 04/23/2019 REHAB ADMISSION DX: Severe deconditioning S/P pneumonia/MSSA bacteremia/ARDS CC: General weakness SUBJECTIVE: Patient was seen today for tolerance of rehab program. Gradually decreasing tracheostomy air leak. No fevers or chills. Sleep has been relatively good. Appetite is been good. Patient Active Problem List Diagnosis ??? Atrial fibrillation with RVR (HCC-CMS) ??? Acute respiratory failure with hypoxia (HCC-CMS) ??? Septic shock (HCC-CMS) ??? ARDS (adult respiratory distress syndrome) (HCC-CMS) ??? SIRISHA (acute kidney injury) (HCC-CMS) ??? Anemia ??? Thrombocytopenia (HCC-CMS) ??? Bacteremia ??? Fever ??? Encephalopathy ??? Upper gastrointestinal bleed Current Facility-Administered Medications: acetaminophen (TYLENOL) tablet 650 mg oral Q4H PRN albuterol (ACCUNEB) nebulizer solution 2.5 mg nebulization Q4H PRN cholecalciferol (Vitamin D3) tablet 1,000 Units oral QHS DILTiazem (TIAZAC) ER capsule 120 mg oral DAILY diphenhydrAMINE (BENADRYL) capsule 25 mg oral Q6H PRN enoxaparin (LOVENOX) injection 40 mg subcutaneous DAILY ferrous sulfate EC tablet 324 mg oral DAILY (BREAKFAST) melatonin tablet 5 mg oral QHS mometasone-formoterol (DULERA) 100-5 mcg/actuation inhaler 2 Puff inhalation BID Multivitamins with Minerals tablet 1 Tab oral DAILY pantoprazole (PROTONIX) tablet 40 mg oral QHS senna (SENOKOT) tablet 2 Tab oral QHS tiotropium (SPIRIVA) 18 mcg inhalation capsule 18 mcg inhalation DAILY triamcinolone (KENALOG) 0.1 % ointment topical BID Wool Alcoh-Min Vmb-Xzvyp-Uvqbh (EUCERIN) cream topical BID OBJECTIVE: Estimated body mass index is 16.92 kg/m?? as calculated from the following: Height as of this encounter: 181.6 cm (71.5). Weight as of this encounter: 55.8 kg (123 lb). Last 5 Weights Filed This Admission 04/23/19 1339 05/02/19 1330 Weight: 54 kg (119 lb) 55.8 kg (123 lb) 03/17/2019 admission weight 70 kg Patient Vitals for the past 48 hrs: BP Pulse Resp Temp 05/09/19 0602 101/59 63 14 35.7 ??C (96.3 ??F) 05/08/19 0559 134/79 64 16 37.3 ??C (99.1 ??F) Patient Vitals for the past 24 hrs: Numeric Pain Level (Scale 1-10) Asleep 05/09/19 1500 0 -- 05/09/19 0804 0 -- 05/09/19 0550 0 Reassessed, sleeping comfortably, RR WNL. 05/08/19 2330 0 Reassessed, sleeping comfortably, RR WNL. 05/08/19 2248 0 Reassessed, sleeping comfortably, RR WNL. 05/08/19 2200 0 Reassessed, sleeping comfortably, RR WNL. 05/08/19 2050 0 -- 05/08/19 1900 0 Reassessed, sleeping comfortably, RR WNL. 05/08/19 1718 0 -- EXAM: Exam repeated and stable 05/09/2019 Affect pleasant. Cooperative. HENT: AT, NC, MMM. Tracheostomy site still with some air leak. Heart rate regular. Respirations even, unlabored. Slightly loose secretions with occasional weak cough. Abdomen benign. Skin:Unstageable sacral ulcer. Last image documentation 05/04 scanned records Edema: No peripheral edema Musculoskeletal: No joint swelling or restrictions Neuro:Speech clear, fluent. No confusion noted. CN grossly intact. PERRL Motor exam: 5-/5 in general except for bilateral DF 4/5. Symmetrical but significantly diminished muscle bulk. Tone: Normal Sensation: intact to light touch, deep pressure proximally and distally. Coordination: no ataxia, no tremor LABS: Kidney/Electrolytes: Lab Results Component Value Date NA 135 (L) 04/22/2019 K 4.4 04/22/2019 CL 105 04/22/2019 CO2 23 04/22/2019 CREATININE 0.75 04/22/2019 BUN 66 (H) 03/24/2019 CALCGFR 96 04/22/2019 Lab Results Component Value Date/Time NA 135 (L) 04/22/2019 04:40 NA 136 04/20/2019 05:29 NA 136 04/18/2019 05:31 NA 139 04/16/2019 05:02 Lab Results Component Value Date CALCIUM 8.8 04/22/2019 CALCCA 9.9 04/22/2019 Lab Results Component Value Date MG 1.8 04/22/2019 Lab Results Component Value Date INR 1.7 (H) 03/20/2019 INR 1.4 (H) 03/17/2019 INR 1.3 (H) 03/17/2019 Lab Results Component Value Date WBC 10.01 04/22/2019 HCT 26.3 (L) 04/22/2019 MCV 89 04/22/2019 MCH 28.1 04/22/2019 MCHC 31.6 (L) 04/22/2019 PLT 293 04/22/2019 RBC 2.95 (L) 04/22/2019 RDWCV 17.1 (H) 04/22/2019 Lab Results Component Value Date/Time HCT 26.3 (L) 04/22/2019 04:40 HCT 24.9 (L) 04/20/2019 05:29 HCT 24.7 (L) 04/18/2019 05:31 HCT 24.5 (L) 04/16/2019 05:02 Lab Results Component Value Date/Time GLUCOSEFINGE 126 (H) 04/07/2019 11:20 GLUCOSEFINGE 130 (H) 04/05/2019 05:36 GLUCOSEFINGE 117 (H) 04/04/2019 23:31 GLUCOSEFINGE 117 (H) 04/04/2019 18:31 GLUCOSEFINGE 124 (H) 04/04/2019 11:51 GLUCOSEFINGE 114 (H) 04/04/2019 06:23 GLUCOSEFINGE 104 (H) 04/03/2019 23:50 GLUCOSEFINGE 123 (H) 04/03/2019 18:10 ASSESSMENT: 64-year-old gentleman initially presenting 03/17/2019 to [facility] with several weeks of feve/weakness/fatigue/diarrhea with admitting diagnoses of pneumonia/ARDS/renal failure/atrial fibrillation RVR. Initially admitted in acute hypoxic respiratory failure with volume overload. Diagnosis of left lower lobe pneumonia with MSSA bacteremia. Prolonged hospital course with marked deconditioning and wheezing. The patient is medically stable to continue in the rehabilitation program. Team notes reviewed. Ongoing gains. Active Hospital Problems Diagnosis ??? ARDS (adult respiratory distress syndrome) ([facility]) [J80] ??? SIRISHA (acute kidney injury) ([facility]) [N17.9] ??? Atrial fibrillation with RVR ([facility]) [I48.91] ??? Acute respiratory failure with hypoxia ([facility]) [J96.01] Team/Patient/Family Communication: PT/OT: Patient progressing more rapidly than initial anticipation. Feel patient will be stable and appropriate for home-based therapies as of the Tuesday. No medical concerns to limit discharge at that time. Tingling information to the patient and his significant other. PLAN: #Severe debility and deconditioning S/P pneumonia/MSSA bacteremia 03/17/2019 with secondary Impairedmobility and ADLs: ?? PT/OT acute level therapies to address mobility, self-care, ADL deficits ?? SECURITY ASSISTANT to monitor swallowing and modified diet needs. Has been progressed to a regular consistency diet ?? bus company manager for self-care ADL support, education, patient/family training - S/P pneumonia/bacteremia and hypoxic failure/ARDS: Tracheostomy states of healing ?? DuoNeb's twice daily, guaifenesin twice daily ?? Tracheostomy dressing to closed -Duodenal ulcer/UGI: Protonix 40 mg daily. Asymptomatic ?? EGD identifying multiple clean-based ulcers in stomach and duodenum and one visible vessel treated with an Endo Clip x1. Required 3 units PRBCs, 1 unit platelets. Pathology only with erosive gastritis identified. -SIRISHA: Renal function has normalized -Anemia: Associated with severe acute illness, GI bleed. -Sacral ulcer: Unstageable. Wound care nursing monitoring. Thera honey. -Atrial fibrillation: Appears resolved. Metoprolol had been stopped as it was felt to be because ofrash. ?? Diltiazem for rate control ?? Anticoagulation on hold given recent GI bleed and low chads score -Rash: Input from dermatology review review of images. [place] to be secondary to metoprolol. ?? Treating symptomatically with triamcinolone, Benadryl. ?? Significantly improving DVT Prophylaxis:??Pharmacologic Prophylaxis:??Enoxaparin (Lovenox) 40 mg SQ daily ?? Multidisciplinary team rounds to review progress/discharge barriers and plans: [employer] Scheduler: Ange Jovel RN Case Manager: Judi Shin RN DISCHARGE PLAN: Significant other's home Home health services: RN, OT, PT, SHEEP FARM MANAGER ACID LOADER Maile Laureano, on 05/17 at 2:40 pm. Expected Discharge Date: 05/15/19 adjustment of date to planning now for 05/12. Will review formallyrounds tomorrow. Martha Reddy MD No future appointments. Portions of this document have been prepared with speech recognition software or keyboard data control assistant techniques. Minor irregularities or keyboarding misprints may be present. * Judi Colindres - 05/09/2019 1429 EST CM notes Pt and his SO Lawanda have been informed that his new VARUN is Tuesday. Lawanda is visiting today, and was surprised by this change, and not anticipating having to make a return trip in 3 days. It's almost a [address], and she herself is also recovering from an illness while at the same he became ill. After some discussion, pros/cons about leaving Tuesday, or leaving today (since she is here), she has agreed to just go home today , and rest for 2 more days all to herself, and prepare herself to pick him up on Tuesday. She states there is nobody else that can assist her with his care. DOREEN will have a gas card for her in his chart on for Tuesday to assist with expenses. I called [facility], and have scheduled an appointment for him with ACID LOADER Maile Laureano, on 05/17 at 2:40 pm. Judi Shin RN CM * [address], Alicia Wilson RD - 05/09/2019 1258 EST Nutrition Reassessment: ?? Medical Summary: Shirlene Bryan is a 64 y.o. male with no prior medical history although he had not seen a physician in some 10 years. ??He presented to [facility] on 03/17/2019 with approximately 2.5 weeks of fever, loss of appetite, weakness, fatigue and diarrhea. ??Work-up at [facility] revealed pneumonia/ARDS and renal failure, as well as atrial fibrillation with RVR. ??He was transferred to the [facility] on 03/17/2019 for acute hypoxic respiratory failure with ARDS, volume overload, COPD and hemodynamic instability. ??He had evidence of sepsis secondary to a left lowerlobe pneumonia and MSSA bacteremia. S/p trach, NGT w TF; Patient admitted on 04/23/2019 to acute rehab with debility. Subjective: Patient reports he continues to eat well and drink Boost shakes 3 times daily. He is feeling stronger. Current Nutrition Orders: Diet-Reg ?? Nutrition Focused Physical Findings: Digestive Systems: Last BM 05/08/19 Skin: unstageable sacral ulcer ?? Anthropometrics: Height:??71.5 Weight 05/02/19: 55.8 kg (123 lbs) Weight:??54 kg (119 lb)??-- 04/23/19 UBW: admitted to [facility] 03/17/19 70.35kg Weight Change:??-16.35 kg in 5 weeks (23% body weight) Pertinent Medications: Current Facility-Administered Medications: acetaminophen (TYLENOL) tablet 650 mg oral Q4H PRN albuterol (ACCUNEB) nebulizer solution 2.5 mg nebulization Q4H PRN cholecalciferol (Vitamin D3) tablet 1,000 Units oral QHS DILTiazem (TIAZAC) ER capsule 120 mg oral DAILY diphenhydrAMINE (BENADRYL) capsule 25 mg oral Q6H PRN enoxaparin (LOVENOX) injection 40 mg subcutaneous DAILY ferrous sulfate EC tablet 324 mg oral DAILY (BREAKFAST) melatonin tablet 5 mg oral QHS mometasone-formoterol (DULERA) 100-5 mcg/actuation inhaler 2 Puff inhalation BID Multivitamins with Minerals tablet 1 Tab oral DAILY pantoprazole (PROTONIX) tablet 40 mg oral QHS senna (SENOKOT) tablet 2 Tab oral QHS tiotropium (SPIRIVA) 18 mcg inhalation capsule 18 mcg inhalation DAILY triamcinolone (KENALOG) 0.1 % ointment topical BID Wool Alcoh-Min Ctj-Omzip-Kptio (EUCERIN) cream topical BID Pertinent Labs: No new ?? Estimated Nutrition Needs: 30-35 kcal/kg (using 55.8 kg) = 0078-7517 kcals/day 1.5 g/kg protein (using 55.8 kg) = 84 g protein/day Estimated Nutrition Intake: 100 % of meals ?? Assessment: Patient has lost 23% body weight since admission to [facility] 03/17/19, likely d/t loss of lean body mass, LOS, and metabolic stress. Patient presently ordering full sized meals and eating well. He is drinking supplements 3 times daily. Weight gain of 4 lbs noted since admission. Nutrition Risk Level: Moderate (2) Medical Nutrition Therapy Plan and Recommendations: -Continue Boost shakes 3 times daily -Weekly weight -Continue vitamins as ordered -RD following Alicia Post RD, CD [facility] Dietitian Phone: [phone] * Elizabeth Licea, PT - 05/09/2019 0842 EST [facility] Rehabilitation Therapy Inpatient Rehabilitation Center [facility] Physical Therapy Encounter Note Date of Service: 05/09/2019 Subjective/Objective Subjective My legs are a little sore in third session. Objective Start time: 1100 Total Therapy Minutes: 30 minute(s) Interventions completed today: Vital Signs: spO2 >/=93% throughout Therapeutic activities (2): Overground mobility: To promote improved functional strength, endurance and activity tolerance. -Ambulation: -~120ft, 80ft and 80ft with 4 wheel rollater and distant supervision -160ft x3 with no device and min CGA of 1, ~3-4 min seated rest breaks between bouts, has lateral LOB x2, self corrected in 2-3 steps. -Stairs: -Up/down 18-7.5 stairs with B rails and close S. Has step to gait, alternating leading limb. Takes~2min standing rest break at top of stairs 2nd Session Time: Start time: 1300 Total Therapy Minutes: 30 minutes Interventions completed today: Vital Signs: spO2 >/=93% throughout Therapeutic activities (2): Functional strength/endurance circuit: Performs x3 with 3-4 min seated rest breaks between trials. 1) Weaving around 6 cones ~3ft apart x2 (min CGA of 1) 2) 4- 6.5 stairs with B rails (close S) 3) Sit <> stands x5, arms across chest, from 24.5 rollater seat (close S with increased anterior lean upon standing without LOB) Stairs: As above. 3rd Session Time: Start time: 1430 Total Therapy Minutes: 30 minutes Interventions completed today: Vital Signs: spO2 = 97% post ambulation outdoors Therapeutic activities (1): Overground ambulation: To increase functional endurance and activity tolerance. Ambulates ~120ft, 200ft, and 360ft with 4 wheel rollater and distant supervision. Functional strengthening: Side stepping 2x15ft to L and R with BUE support on rail anteriorly and close supervision. Independently initiates pursed lip breathing and activity pacing. Gait Training (1): Outdoor ambulation: For practicing using AD outdoors over complex terrain. -~500ft over cement sidewalk with uneven ground and slopes -Uses 4 wheel rollater, primarily requires close S, requires min CGA with steeper inclines and x1 when left front wheel slips off side of sidewalk Patient/Family Education: Topic: Change in D/C plan. Typical day of D/C schedule Learner: patient Method: verbal Barriers to Learning: none noted Outcome: verbalized understanding, pleased to D/C earlier than expected. Team Communication: With team re: earlier D/C. Assessment/Plan Assessment Pt continues to demonstrate improved functional strength and endurance. His spO2 is consistently >/=93% even after strenuous activities. He is fatigued at the end of the day, but is able to accommodate safely and is independently initiating activity pacing. Due to significant progress, anticipate pt will be able to D/C to girlfriend's home on Saturday 05/12 rather than Tuesday 05/15. Plan Activity tolerance training with Segmental breathing, Activity pacing, Pursed lip breathing Functional strength and endurance training Gait and stairs HEP Balance training Family training if needed. Primary Therapist: Contact information: Pager: [phone] Elizabeth Licea PT 05/09/2019 11:51 * Sheela Anthony OT - 05/09/2019 0708 EST Rehabilitation Therapies Inpatient Rehabilitation [facility] Occupational Therapy Encounter Note Date of Service: 05/09/2019 Subjective/Objective SUBJECTIVE: I think we are all set and ready for Tuesday. I might even miss you guys OBJECTIVE: First Session Start time: 929 Scheduled time: 5214-6889 Total Therapy Minutes: 60 minute(s) Interventions included: Therapeutic Activities (3) Therapeutic Exercise (1) -Pt completed household management tasks around room to focus on increased endurance and IADL participation without depending on AE, therefore completed without 4WW ?? Pt made bed, put items away in closet, and de-cluttered bedside table with consistent pace. Pt demonstrated safe reaching when making the bed. Initiated rest breaks as needed. -Pt ambulated to lobby with 4ww to exchange magazines to focus on safe functional mobility and itemretrieval from low heights. -Retrieved shower chair from [facility] room. Pt stated that he is pleased with the shower chair and educated on set up once home -Item retrieval activity in therapy gym with a focus on safely reaching for items on high and low surfaces. Pt safety retrieved items from floor with good body mechanics. OT provided suggestions for providing pet care while at home. -Completed BUE exercises to increase strength needed during ADL and IADL ?? With 1.5# cuff weights on each wrist, pt completed B shoulder flexion, internal/external rotation, ab/adduction, and horizontal ab/adduction, 10 reps of each for 2 sets. Pt initiated rest breaks throughout as needed. Vital signs: Vital signs have been stable with interventions and were not monitored. Patient/Family Education: Topic: Benefits of activity D/C planning Learner: patient Method: verbal Barriers to Learning: none noted Outcome: verbalized understanding Second Session Start time: 1330 Scheduled time: 6205-7236 Total Therapy Minutes: 30 minute(s) Interventions included: Therapeutic Activities (2) -Pt completed eye-hand coordination task using [employer] Integrated Therapy System ([employer]), in time paced setting, with focus on BUE strenth, balance, and endurance, completed in a standing position. ?? Trial 1: Set to 4 minutes with even quadrant loading. ?? Trial 2: Set to 3 minutes with stimuli in upper quadrants to promote farther reaching and challenge to BUE. Pt stood on balance board with CGA x1 to challenge balance with LOB. ?? Pt reported PRE of 5 after completing both trials and took rest break in between. No external support from 4ww. -Significant other present for OT session. OT provided education to significant other regarding AE,d/c planning, and questions to ask MD. Vital signs: Vital signs have been stable with interventions and were not monitored. Patient/Family Education: Topic: Benefits of activity D/C planning Adaptive equipment Learner: patient Method: verbal Barriers to Learning: none noted Outcome: verbalized understanding Team Communication: Communicated with PT regarding d/c planning. Communicated via email with caseworker intake to determine if ensure nutritional drinks can be covered by insurance. Assessment/Plan ASSESSMENT: Pt tolerated therapy well today with continued notable gains with endurance and overallactivity tolerance. Pt and significant other have stated their comfort level with d/c home on 05/12.The patient remains appropriate for skilled OT services at an acute rehab level to continue to makefunctional gains and receive education for a safe d/c home. PLAN: ?? Education on ECT and home safety, provide pt with handouts ?? Dry run or wet shower in tub room ?? Review HEP ?? Continuation of IADL without 4ww ?? Added challenged to BUE exercises Pager: [phone] ENEDINA ANNA, 05/09/2019, 7:08 * Martha Reddy MD - 05/08/2019 5119 EST INPATIENT PROGRESS NOTE DATE OF SERVICE:05/08/2019 PCP Provider None LOS: 15 days REHABILITATION ADMISSION: 04/23/2019 REHAB ADMISSION DX: Severe deconditioning S/P pneumonia/MSSA bacteremia/ARDS CC: General weakness SUBJECTIVE: Patient was seen today for tolerance of rehab program. Still has air leak a tracheostomy but he thinks his voice is getting stronger. No fevers or chills. Feels he has a good appetite. Reports about a 30 pound weight loss from the onset of his illness to now. Complaints related to his rash. Patient Active Problem List Diagnosis ??? Atrial fibrillation with RVR (HCC-CMS) ??? Acute respiratory failure with hypoxia (HCC-CMS) ??? Septic shock (HCC-CMS) ??? ARDS (adult respiratory distress syndrome) (HCC-CMS) ??? SIRISHA (acute kidney injury) (HCC-CMS) ??? Anemia ??? Thrombocytopenia (HCC-CMS) ??? Bacteremia ??? Fever ??? Encephalopathy ??? Upper gastrointestinal bleed Current Facility-Administered Medications: acetaminophen (TYLENOL) tablet 650 mg oral Q4H PRN albuterol (ACCUNEB) nebulizer solution 2.5 mg nebulization Q4H PRN cholecalciferol (Vitamin D3) tablet 1,000 Units oral QHS DILTiazem (TIAZAC) ER capsule 120 mg oral DAILY diphenhydrAMINE (BENADRYL) capsule 25 mg oral Q6H PRN enoxaparin (LOVENOX) injection 40 mg subcutaneous DAILY ferrous sulfate EC tablet 324 mg oral DAILY (BREAKFAST) melatonin tablet 5 mg oral QHS mometasone-formoterol (DULERA) 100-5 mcg/actuation inhaler 2 Puff inhalation BID Multivitamins with Minerals tablet 1 Tab oral DAILY pantoprazole (PROTONIX) tablet 40 mg oral QHS senna (SENOKOT) tablet 2 Tab oral QHS tiotropium (SPIRIVA) 18 mcg inhalation capsule 18 mcg inhalation DAILY triamcinolone (KENALOG) 0.1 % ointment topical BID Wool Alcoh-Min Svy-Aeqqw-Efytb (EUCERIN) cream topical BID OBJECTIVE: Estimated body mass index is 16.92 kg/m?? as calculated from the following: Height as of this encounter: 181.6 cm (71.5). Weight as of this encounter: 55.8 kg (123 lb). Last 5 Weights Filed This Admission 04/23/19 1339 05/02/19 1330 Weight: 54 kg (119 lb) 55.8 kg (123 lb) 03/17/2019 admission weight 70 kg Patient Vitals for the past 48 hrs: BP Pulse Resp Temp 05/08/19 0559 134/79 64 16 37.3 ??C (99.1 ??F) 05/07/19 0558 127/75 63 14 36.7 ??C (98.1 ??F) Patient Vitals for the past 24 hrs: Numeric Pain Level (Scale 1-10) Asleep 05/08/19 2248 0 Reassessed, sleeping comfortably, RR WNL. 05/08/19 2200 0 Reassessed, sleeping comfortably, RR WNL. 05/08/19 2050 0 -- 05/08/19 1900 0 Reassessed, sleeping comfortably, RR WNL. 05/08/19 1718 0 -- 05/08/19 1611 0 -- 05/08/19 1505 0 -- 05/08/19 0741 0 -- EXAM: Exam repeated and stable 05/08/2019 Affect pleasant. Cooperative. HENT: AT, NC, MMM. Tracheostomy site still with air leak. Heart rate regular. Respirations even, unlabored. Abdomen benign. Skin:Unstageable sacral ulcer. Last image documentation 05/04 scanned records Edema: No peripheral edema Musculoskeletal: No joint swelling or restrictions Neuro:Speech clear, fluent. No confusion noted. CN grossly intact. PERRL Motor exam: 5-/5 in general except for bilateral DF 4/5. Symmetrical but significantly diminished muscle bulk. Tone: Normal Sensation: intact to light touch, deep pressure proximally and distally. Coordination: no ataxia, no tremor LABS: Kidney/Electrolytes: Lab Results Component Value Date NA 135 (L) 04/22/2019 K 4.4 04/22/2019 CL 105 04/22/2019 CO2 23 04/22/2019 CREATININE 0.75 04/22/2019 BUN 66 (H) 03/24/2019 CALCGFR 96 04/22/2019 Lab Results Component Value Date/Time NA 135 (L) 04/22/2019 04:40 NA 136 04/20/2019 05:29 NA 136 04/18/2019 05:31 NA 139 04/16/2019 05:02 Lab Results Component Value Date CALCIUM 8.8 04/22/2019 CALCCA 9.9 04/22/2019 Lab Results Component Value Date MG 1.8 04/22/2019 Lab Results Component Value Date INR 1.7 (H) 03/20/2019 INR 1.4 (H) 03/17/2019 INR 1.3 (H) 03/17/2019 Lab Results Component Value Date WBC 10.01 04/22/2019 HCT 26.3 (L) 04/22/2019 MCV 89 04/22/2019 MCH 28.1 04/22/2019 MCHC 31.6 (L) 04/22/2019 PLT 293 04/22/2019 RBC 2.95 (L) 04/22/2019 RDWCV 17.1 (H) 04/22/2019 Lab Results Component Value Date/Time HCT 26.3 (L) 04/22/2019 04:40 HCT 24.9 (L) 04/20/2019 05:29 HCT 24.7 (L) 04/18/2019 05:31 HCT 24.5 (L) 04/16/2019 05:02 Lab Results Component Value Date/Time GLUCOSEFINGE 126 (H) 04/07/2019 11:20 GLUCOSEFINGE 130 (H) 04/05/2019 05:36 GLUCOSEFINGE 117 (H) 04/04/2019 23:31 GLUCOSEFINGE 117 (H) 04/04/2019 18:31 GLUCOSEFINGE 124 (H) 04/04/2019 11:51 GLUCOSEFINGE 114 (H) 04/04/2019 06:23 GLUCOSEFINGE 104 (H) 04/03/2019 23:50 GLUCOSEFINGE 123 (H) 04/03/2019 18:10 ASSESSMENT: 64-year-old gentleman initially presenting 03/17/2019 to [facility] with several weeks of feve/weakness/fatigue/diarrhea with admitting diagnoses of pneumonia/ARDS/renal failure/atrial fibrillation RVR. Initially admitted in acute hypoxic respiratory failure with volume overload. Diagnosis of left lower lobe pneumonia with MSSA bacteremia. Prolonged hospital course with marked deconditioning and wheezing. The patient is medically stable to continue in the rehabilitation program. Team notes reviewed. Ongoing gains. Active Hospital Problems Diagnosis ??? ARDS (adult respiratory distress syndrome) ([facility]) [J80] ??? SIRISHA (acute kidney injury) ([facility]) [N17.9] ??? Atrial fibrillation with RVR ([facility]) [I48.91] ??? Acute respiratory failure with hypoxia ([facility]) [J96.01] Team/Patient/Family Communication: PLAN: #Severe debility and deconditioning S/P pneumonia/MSSA bacteremia 03/17/2019 with secondary Impairedmobility and ADLs: ?? PT/OT acute level therapies to address mobility, self-care, ADL deficits ?? SECURITY ASSISTANT to monitor swallowing and modified diet needs. Has been progressed to a regular consistency diet ?? bus company manager for self-care ADL support, education, patient/family training - S/P pneumonia/bacteremia and hypoxic failure/ARDS: Tracheostomy states of healing ?? DuoNeb's twice daily, guaifenesin twice daily ?? Tracheostomy dressing to closed -Duodenal ulcer/UGI: Protonix 40 mg daily. Asymptomatic -SIRISHA: Renal function has normalized -Anemia: Associated with severe acute illness, GI bleed. -Sacral ulcer: Unstageable. Wound care nursing monitoring. Thera honey. -Atrial fibrillation: Appears resolved. Metoprolol had been stopped as it was felt to be because ofrash. ?? Diltiazem for rate control ?? Anticoagulation on hold given recent GI bleed and low chads score -Rash: Input from dermatology review review of images. [place] to be secondary to metoprolol. ?? Treating symptomatically with triamcinolone, Benadryl. ?? Significantly improving DVT Prophylaxis:??Pharmacologic Prophylaxis:??Enoxaparin (Lovenox) 40 mg SQ daily ?? Multidisciplinary team rounds to review progress/discharge barriers and plans: Every [employer] Scheduler: Ange Jovel RN DISCHARGE PLAN: Significant other's home Home health services: RN, OT, PT, SHEEP FARM MANAGER Expected Discharge Date: 05/15/19 Martha Reddy MD No future appointments. Portions of this document have been prepared with speech recognition software or keyboard data control assistant techniques. Minor irregularities or keyboarding misprints may be present. * Elizabeth Licea, PT - 05/08/2019 1248 EST [facility] Inpatient Acute Rehabilitation Unit Durable Medical Equipment Prescription (Non-Wheelchair) Name: Shirlene Bryan Date of : 1955 Address: [address] [place] [address] (home) Insurance: Payor: [facility] () / Plan: MEDICARE (R) / Product Type: *No Product type* / Referring Physician: Martha Reddy MD Primary Physician: Provider None Medical Diagnosis: Patient Active Problem List Diagnosis Code ??? Atrial fibrillation with RVR ([facility]) I48.91 ??? Acute respiratory failure with hypoxia ([facility]) J96.01 ??? Septic shock ([facility]) A41.9, R65.21 ??? ARDS (adult respiratory distress syndrome) ([facility]) J80 ??? SIRISHA (acute kidney injury) ([facility]) N17.9 ??? Anemia D64.9 ??? Thrombocytopenia ([facility]) D69.6 ??? Bacteremia R78.81 ??? Fever R50.9 ??? Encephalopathy G93.40 ??? Upper gastrointestinal bleed K92.2 Height: 181.6 cm (71.5) Weight : 55.8 kg (123 lb) Body mass index is 16.92 kg/m??. Type of Equipment Prescribed: 4 wheel rollater with seat Prescription Start Date: 05/08/2019 Purpose of Equipment: To allow for pt to ambulate household distances with modified independence. Medical Necessity: Pt requires a 4 wheel rollater with seat in order to ambulate independently. Patient Functional Level: Anticipate modified independent with 4 wheel rollater with seat by D/C. Duration needed: 3-6 months Therapist recommending equipment: Elizabeth Licea PT 05/08/2019 12:[address] Dylan Boyle: [id number] Dr Eladio Otero: [id number] Dr Martha Reddy: [id number] Cosigned by Martha Reddy MD at 05/08/2019 14:06 EST * Ange Jovel RN - 05/08/2019 1146 EST CM Activity note. Gas card given to patient for Britt. Another gas card will be given when she is coming in for training for d.blessing, * Elizabeth Licea, PT - 05/08/2019 0856 EST [facility] Rehabilitation Therapy Inpatient Rehabilitation Center [facility] Physical Therapy Encounter Note Date of Service: 05/08/2019 Subjective/Objective Subjective Pt endorses feeling more short of breath without AD than with AD. Objective Start time: 929 Total Therapy Minutes: 30 minute(s) Interventions completed today: Vital signs: spO2 >/=91% when monitored intermittently throughout, except x1* (see below) Therapeutic activities (1): Overground ambulation: To promote increased activity tolerance. ~120ft x2 and 50ft with 4 wheel rollater and supervision. Has slightly increased forward flexion. Gait Training (1): Stair training: Up/down 18-7.5 stairs with B rails and min CGA of 1 progressing to close S. Has step to pattern alternating leading limb and increased forward flexion throughout. Takes ~2-3 min standing rest break at top of stairs. Overground gait training: With goal of progressing towards ambulation without UE support. Performs with no device and min CGA throughout. -30ft x2, 80ft, and 160ft x2 -Pt endorses increased WHEELER 2nd Session Time: Start time: 1300 Total Therapy Minutes: 30 minutes Interventions completed today: Vital Signs: spO2 >/=93% when monitored intermittently throughout Therapeutic activities (1): Overground ambulation: To promote increased activity tolerance. ~120ft x2 with 4 wheel rollater andsupervision. Functional strengthening: Performs circuit x2. -Sit <> stands: x10 with arms across chest from 25 mat with S -Step ups: x5B onto 3.5 step progressing to 6 step with BUE support on 4 wheel rollater and min CGA of 1 -Hip extension: with forearms on elevated mat. Performs with min CGA to close S. Cues for form including decreased lumbar extension and slight knee flexion on stance limb to decrease compensation with hyperextension Gait Training (1): Stair training: Up/down 18-7.5 stairs as above. 3rd Session Time: Start time: 1430 Total Therapy Minutes: 30 minutes Interventions completed today: Therapeutic activities (1): NuStep: To promote improved activity tolerance/endurance. -8:08 (at workload 4) and 4:00 (at workload 5) -Seat/arms: 11 -Waffle cushion on seat for comfort and skin protection Gait Training (1): Stair training: Up/down 18-7.5 stairs as above. *Pt independently initiates use of pursed lip breathing and activity pacing as necessary throughoutall sessions. Patient/Family Education: Topic: Use of accessory breathing musculature with UE support, and prescribed 4 wheel rollater to assist with endurance Learner: patient Method: verbal Barriers to Learning: none noted Outcome: verbalized understanding Team Communication: With OT re: pt status. Assessment/Plan Assessment Pt with significantly improved activity tolerance and functional endurance than when last seen by this automotive service writer. He requires fewer rest breaks and has decreased rest break time, and he is able to independently initiate use of compensatory strategies to improve his activity tolerance. Pt will require 4 wheel rollater for independent ambulation within his home. Plan Activity tolerance training with Segmental breathing, Activity pacing, Pursed lip breathing Functional strength and endurance training Gait and stairs HEP Balance training Family training Primary Therapist: Contact information: Pager: [phone] Elizabeth Licea PT 05/08/2019 12:45 * Sheela Anthony, OT - 05/08/2019 0717 EST Rehabilitation Therapies Inpatient Rehabilitation [facility] Occupational Therapy Encounter Note Date of Service: 05/08/2019 Subjective/Objective SUBJECTIVE: I didn't feel very winded while I was cooking and I was just focused on making the food. pt's response when OT commented on pt's improved endurance. OBJECTIVE: First Session Start time: 1100 Scheduled time: 9175-2074 Total Therapy Minutes: 60 minute(s) Interventions included: Self-Care/Home Management (3) Therapeutic Activities (1) -Completed full meal preparation with a focus on increased endurance, IADL participation, and fine motor control ?? OT oriented pt to kitchen environment (location of ingredients, utensils, trash) ?? Pt decided to make breakfast sandwich. Assembled all ingredients successfully with occasional guidance from OT to locate certain items. ?? Pt demonstrated ability to multi-task (melted butter in cordero while heating sausage in microwave). ?? Pt independently implemented ECT by compiling all trash and throwing away at the end rather thanmaking several trips to trash can. Demonstrated safe functional mobility around kitchen without 4wwwhile maintaining consistent pace. ?? Pt managed all utensils, food packaging, and small food items successfully. ?? Pt tolerated 15-17 minutes of standing throughout meal prep. -Completed clean-up with a focus on increased endurance and IADL participaton ?? Pt brought remaining trash to trash can with safe functional mobility, no 4ww. ?? Cleaned all dishes in standing with supervision. -Discussed necessary equipment needed for a safe d/c home. Pt restated that he will d/c to significant other's home, and that a shower chair would be helpful for both his significant other's home andpt's home. Explained the role of the [employer] program, pt agreeable. Filled out form to request shower chair. -Collected magazines from [employer] to focus on increased endurance and increasing pt comfort level with 4ww use. Pt utilized 4ww seat to transport magazines. Vital signs: Vital signs have been stable with interventions and were not monitored. Patient/Family Education: Topic: Benefits of activity D/C planning Adaptive equipment Learner: patient Method: verbal Barriers to Learning: none noted Outcome: verbalized understanding Second Session Start time: 1330 Scheduled time: 9307-8162 Total Therapy Minutes: 30 minute(s) Interventions included: Therapeutic Exercise -Pt ambulated to therapy gym with 4ww and supervision. Maintained consistent pace. -Completed BUE exercises in order to increase strength required during ADL and IADL ?? Pt completed 90 degrees of shoulder flexion while holding 4# ball. 2 sets of 10 reps with seatedrest break in between sets. ?? Pt threw large ball at wall using maximal force for 1.5 min, then threw ball down at mat with same force for 1 min. Pt initiated rest break afterwards. -Pt ambulated to fridge in dining room to retrieve cold drink. Managed straw and lid successfully. Utilized seat on 4ww to assemble drink. Returned to room and set up pt with bedside table. Vital signs: Vital signs have been stable with interventions and were not monitored. Patient/Family Education: Topic: Benefits of activity Learner: patient Method: verbal Barriers to Learning: none noted Outcome: verbalized understanding Team Communication: This note serves as primary form of team communication this date. Assessment/Plan ASSESSMENT: Pt tolerated therapy well today with excellent gains in endurance during IADL noted. Ptalso demonstrates high motivation and has verbalized that he feels ready to return home sooner thenanticipated DC date. This pt continues to present with endurance and BUE strength that are below his baseline levels, which impact current level of occupational performance. The patient remains appropriate for skilled OT services at an acute rehab level to regain independence and functional mobility for ADL and IADL. PLAN: ?? Continue to increase endurance during ADL and IADL ?? Bring loan request form to [employer] ?? Added challenged during BUE strengthening ?? Continuation of d/c planning conversations Pager: [phone] ENEDINAJOAQUIN ANNA, 05/08/2019, 7:17 * Martha Reddy MD - 05/07/2019 1247 EST INPATIENT PROGRESS NOTE DATE OF SERVICE:05/07/2019 PCP Provider None LOS: 14 days REHABILITATION ADMISSION: 04/23/2019 REHAB ADMISSION DX: Severe deconditioning S/P pneumonia/MSSA bacteremia/ARDS CC: General weakness SUBJECTIVE: Patient was seen today for tolerance of rehab program. Reports no new complaints during last night. Denies chest pain, SOB, fevers, or reflux. Still has tracheostomy leak. Mild weak slightly productive cough. Bowels OK. No pain complaints. Rash is not symptomatic for him. Patient Active Problem List Diagnosis ??? Atrial fibrillation with RVR (HCC-CMS) ??? Acute respiratory failure with hypoxia (HCC-CMS) ??? Septic shock (HCC-CMS) ??? ARDS (adult respiratory distress syndrome) (HCC-CMS) ??? SIRISHA (acute kidney injury) (HCC-CMS) ??? Anemia ??? Thrombocytopenia (HCC-CMS) ??? Bacteremia ??? Fever ??? Encephalopathy ??? Upper gastrointestinal bleed Current Facility-Administered Medications: acetaminophen (TYLENOL) tablet 650 mg oral Q4H PRN albuterol (ACCUNEB) nebulizer solution 2.5 mg nebulization Q4H PRN cholecalciferol (Vitamin D3) tablet 1,000 Units oral QHS DILTiazem (TIAZAC) ER capsule 120 mg oral DAILY diphenhydrAMINE (BENADRYL) capsule 25 mg oral Q6H PRN enoxaparin (LOVENOX) injection 40 mg subcutaneous DAILY ferrous sulfate EC tablet 324 mg oral DAILY (BREAKFAST) melatonin tablet 5 mg oral QHS mometasone-formoterol (DULERA) 100-5 mcg/actuation inhaler 2 Puff inhalation BID Multivitamins with Minerals tablet 1 Tab oral DAILY pantoprazole (PROTONIX) tablet 40 mg oral QHS senna (SENOKOT) tablet 2 Tab oral QHS tiotropium (SPIRIVA) 18 mcg inhalation capsule 18 mcg inhalation DAILY triamcinolone (KENALOG) 0.1 % ointment topical BID Wool Alcoh-Min Msw-Mnxhv-Dchjd (EUCERIN) cream topical BID OBJECTIVE: Estimated body mass index is 16.92 kg/m?? as calculated from the following: Height as of this encounter: 181.6 cm (71.5). Weight as of this encounter: 55.8 kg (123 lb). Last 5 Weights Filed This Admission 04/23/19 1339 05/02/19 1330 Weight: 54 kg (119 lb) 55.8 kg (123 lb) Patient Vitals for the past 48 hrs: BP Pulse Resp Temp 05/07/19 0558 127/75 63 14 36.7 ??C (98.1 ??F) 05/06/19 0609 122/81 76 18 36 ??C (96.8 ??F) Patient Vitals for the past 24 hrs: Numeric Pain Level (Scale 1-10) Asleep 05/07/19 1200 0 -- 05/07/19 0744 0 -- 05/07/19 0000 -- Reassessed, sleeping comfortably, RR WNL. 05/06/19 2330 -- Reassessed, sleeping comfortably, RR WNL. 05/06/19 1500 -- Reassessed, sleeping comfortably, RR WNL. EXAM: Affect pleasant. Cooperative. HENT: AT, NC, MMM. Tracheostomy site still with air leak. Heart rate regular. Respirations even, unlabored. Abdomen benign. Skin:Unstageable sacral ulcer. Last image documentation 05/04 scanned records Edema: No peripheral edema Musculoskeletal: No joint swelling or restrictions Neuro:Speech clear, fluent. No confusion noted. CN grossly intact. PERRL Motor exam: 5-/5 in general except for bilateral DF/5. Symmetrical but significantly diminished muscle bulk. Tone: Normal Sensation: intact to light touch, deep pressure proximally and distally. Coordination: no ataxia, no tremor LABS: Kidney/Electrolytes: Lab Results Component Value Date NA 135 (L) 04/22/2019 K 4.4 04/22/2019 CL 105 04/22/2019 CO2 23 04/22/2019 CREATININE 0.75 04/22/2019 BUN 66 (H) 03/24/2019 CALCGFR 96 04/22/2019 Lab Results Component Value Date/Time NA 135 (L) 04/22/2019 04:40 NA 136 04/20/2019 05:29 NA 136 04/18/2019 05:31 NA 139 04/16/2019 05:02 Lab Results Component Value Date CALCIUM 8.8 04/22/2019 CALCCA 9.9 04/22/2019 Lab Results Component Value Date MG 1.8 04/22/2019 Lab Results Component Value Date INR 1.7 (H) 03/20/2019 INR 1.4 (H) 03/17/2019 INR 1.3 (H) 03/17/2019 Lab Results Component Value Date WBC 10.01 04/22/2019 HCT 26.3 (L) 04/22/2019 MCV 89 04/22/2019 MCH 28.1 04/22/2019 MCHC 31.6 (L) 04/22/2019 PLT 293 04/22/2019 RBC 2.95 (L) 04/22/2019 RDWCV 17.1 (H) 04/22/2019 Lab Results Component Value Date/Time HCT 26.3 (L) 04/22/2019 04:40 HCT 24.9 (L) 04/20/2019 05:29 HCT 24.7 (L) 04/18/2019 05:31 HCT 24.5 (L) 04/16/2019 05:02 Lab Results Component Value Date/Time GLUCOSEFINGE 126 (H) 04/07/2019 11:20 GLUCOSEFINGE 130 (H) 04/05/2019 05:36 GLUCOSEFINGE 117 (H) 04/04/2019 23:31 GLUCOSEFINGE 117 (H) 04/04/2019 18:31 GLUCOSEFINGE 124 (H) 04/04/2019 11:51 GLUCOSEFINGE 114 (H) 04/04/2019 06:23 GLUCOSEFINGE 104 (H) 04/03/2019 23:50 GLUCOSEFINGE 123 (H) 04/03/2019 18:10 ASSESSMENT: 64-year-old gentleman initially presenting 03/17/2019 to [facility] with several weeks of feve/weakness/fatigue/diarrhea with admitting diagnoses of pneumonia/ARDS/renal failure/atrial fibrillation RVR. Initially admitted in acute hypoxic respiratory failure with volume overload. Diagnosis of left lower lobe pneumonia with MSSA bacteremia. Prolonged hospital course with marked deconditioning and wheezing. The patient is medically stable to continue in the rehabilitation program. Team notes reviewed. Ongoing gains. Active Hospital Problems Diagnosis ??? ARDS (adult respiratory distress syndrome) ([facility]) [J80] ??? SIRISHA (acute kidney injury) ([facility]) [N17.9] ??? Atrial fibrillation with RVR ([facility]) [I48.91] ??? Acute respiratory failure with hypoxia ([facility]) [J96.01] Team/Patient/Family Communication: PLAN: Active Problems: Atrial fibrillation with RVR ([facility]) Acute respiratory failure with hypoxia ([facility]) ARDS (adult respiratory distress syndrome) ([facility]) SIRISHA (acute kidney injury) ([facility]) #Severe debility and deconditioning S/P pneumonia/MSSA bacteremia 03/17/2019 with secondary Impairedmobility and ADLs: ?? PT/OT acute level therapies to address mobility, self-care, ADL deficits ?? SECURITY ASSISTANT to monitor swallowing and modified diet needs. Has been progressed to a regular consistency diet ?? bus company manager for self-care ADL support, education, patient/family training - S/P pneumonia/bacteremia and hypoxic failure/ARDS: Tracheostomy states of healing ?? DuoNeb's twice daily, guaifenesin twice daily ?? Tracheostomy dressing to closed -Duodenal ulcer/UGI: Protonix 40 mg daily. Asymptomatic -SIRISHA: Renal function has normalized -Anemia: Associated with severe acute illness, GI bleed. -Sacral ulcer: Unstageable. Wound care nursing monitoring. Deepak jeffries. -Atrial fibrillation: Appears resolved. Metoprolol had been stopped as it was felt to be because ofrash. ?? Diltiazem for rate control ?? Anticoagulation on hold given recent GI bleed and low chads score -Rash: Input from dermatology review review of images. [place] to be secondary to metoprolol. ?? Treating symptomatically with triamcinolone, Benadryl. ?? Significantly improving DVT Prophylaxis:??Pharmacologic Prophylaxis:??Enoxaparin (Lovenox) 40 mg SQ daily ?? Multidisciplinary team rounds to review progress/discharge barriers and plans: Every Manufacturing Scheduler: Ange Jovel RN DISCHARGE PLAN: Significant other's home Home health services: RN, OT, PT, SHEEP FARM MANAGER Expected Discharge Date: 05/15/19 Martha Reddy MD No future appointments. Portions of this document have been prepared with speech recognition software or keyboard data control assistant techniques. Minor irregularities or keyboarding misprints may be present. * Shanon Reyes MD - 05/07/2019 1034 EST MEDICINE FOLLOW-UP Date of service: 05/07/2019 PCP: Provider None CHIEF COMPLAINT: MSSA pneumonia and staph aureus septic shock, acute hypoxic respiratory failure and acute respiratory distress syndrome, sp tracheostomy, upper gastrointestinal hemorrhage from multifocal ulcer, severe protein calorie malnutrition, deep tissue injury SUBJECTIVE: Slim is looking a lot better. Getting stronger. Still with air leak at trach site. Rash on torso is much better. Better on his knees but still quite confluent on his legs. It is not really bothering him. No fevers, cough, pains. OBJECTIVE: Patient Vitals for the past 48 hrs: BP Pulse Resp Temp 05/07/19 0558 127/75 63 14 36.7 ??C (98.1 ??F) 05/06/19 0609 122/81 76 18 36 ??C (96.8 ??F) Vital signs are stable and the patient is afebrile. Flat affect which is not new. He is thin and frail appearing, though this is a bit better today - color looks better. No distress. Respirations even, unlabored. Motor/sensory exam stable. Confluent purpuric rash, dense on his lower legs and arms. Cleared on his back. MEDICATIONS: cholecalciferol (Vitamin D3) 1,000 Units oral QHS DILTiazem 120 mg oral DAILY enoxaparin 40 mg subcutaneous DAILY ferrous sulfate 324 mg oral DAILY (BREAKFAST) guaiFENesin 600 mg oral BID melatonin 5 mg oral QHS mometasone-formoterol 2 Puff inhalation BID Multivitamins with Minerals 1 Tab oral DAILY pantoprazole 40 mg oral QHS senna 2 Tab oral QHS tiotropium 18 mcg inhalation DAILY triamcinolone topical BID Wool Alcoh-Min Bco-Xelao-Vslyp topical BID acetaminophen 650 mg Q4H PRN albuterol 2.5 mg Q4H PRN diphenhydrAMINE 25 mg Q6H PRN LABS: Last labs: Labs: I have personally reviewed CBC: Lab Results Component Value Date WBC 10.01 04/22/2019 RBC 2.95 (L) 04/22/2019 HGB 8.3 (L) 04/22/2019 HCT 26.3 (L) 04/22/2019 MCV 89 04/22/2019 MCH 28.1 04/22/2019 MCHC 31.6 (L) 04/22/2019 PLT 293 04/22/2019 NEUTROABS 8.90 (H) 03/20/2019 BMP: Lab Results Component Value Date NA 135 (L) 04/22/2019 K 4.4 04/22/2019 CL 105 04/22/2019 CO2 23 04/22/2019 BUN 66 (H) 03/24/2019 CREATININE 0.75 04/22/2019 GLUCOSEFINGE 126 (H) 04/07/2019 CALCIUM 8.8 04/22/2019 MG 1.8 04/22/2019 PHOS 4.7 (H) 04/22/2019 LABALBU 2.2 (L) 03/17/2019 ASSESSMENT/PLAN: Rash - looks like a drug reaction and slowly improving Tracheostomy - continues with air leak Pressure injury - using therahoney and offloading Upper GI hemorrhage Cont daily PPI - already completed bid ppi course Avoid nsaids Quit smoking - he saw tobacco cessation mortgage counselor last week Dysphagia - related to tracheostomy complicated by overall frailty, weakness and debility from prolonged critical illness Upgraded to regular diet Mixed iron deficiency and chronic inflammation anemia + frailty Iron tabs qd and repeat CBC this week Nutrition consulting, appetite good and diet now regular AF - no OAC Changed metop to dilt in case it was the metop causing rash Monitoring rate Emphysema, severe Tobacco cessation Dulera + spireva scheduled + albuterol prn Suspect he runs 88-90% normally given the extent of disease - he has been great off O2 OP pulmonary and pulmonary rehab Cont to encourage frequent IS and acapella The patient is medically stable and tolerating the present level of the rehab program. The patient is to continue in the rehabilitation program. DVT ppx: enox 40 - can probably dc this soon if ambulation continues to improve. Shanon Reyes MD * Caitie Tracy, PT - 05/07/2019 0850 EST [facility] Rehabilitation Therapy Inpatient Rehabilitation Center [facility] Physical Therapy Encounter Note Date of Service: 05/07/2019 Subjective/Objective Subjective Pt reports that his breath was often limiting factor, however feeling more confident now Objective Start time: 1000 Total Therapy Minutes: 30 minute(s) Interventions completed today: VS Pre: 123/79 HR 97 O2 100% VS post: 142/81 HR 108 O2 97% Therapeutic activities: -Completed for endurance and functional activity tolerance Task Distance Assist Comments & Cues ??Amb w/ RW 1,015ft Distant supervision, therapist provided w/c follow - Added challenge of engaging in conversation while continuing ambulation - Dyspnea 5/10 Stairs 9 (7.5) steps Supervision - ascend/desnced with B rails variable pattern 2nd Session Time: Start time: 1330 Total Therapy Minutes: 30 minutes Interventions completed today: Therapeutic activities: -Completed for endurance and functional activity tolerance, distance no longer monitored as pt consistently exceeding >400ft thus initiated timing ambulation bouts. Task Distance Assist Comments & Cues ??Amb w/ RW & Stairs 4:56 included 4 (6) steps Distant supervision, therapist provided w/c follow - Ambulation with RW & ascend/descend 4 (6) steps with B rails Stairs 3:16 18 (7.5) steps Supervision - ascend/descend 18 (7.5) with B rails variable pattern primarily stepto step - cues for pacing, standing rest breaks at landings with pursed lip breathing Gait Training: -Provided pt with 4WW, oriented to brakes on walker and sized to fit pt Gait Training: ?? Assist: Supervision of 1 ?? Device: 4WW ?? Distance: 11:26 ?? Condition/task: Indoors on tile and carpet. Pt able to sit on 4WW 2x with safe brake applicationwithout cues. ?? Focus: safety with 4WW 3rd Session Time: Start time: 1530 Total Therapy Minutes: 30 minutes Interventions completed today: VS Post: HR 101, O2 94% Therapeutic Activities -All completed for functional endurance and LE strength Task Distance / time Assist Comments & Cues ??Amb with 4WW 3:08 Distant supervision - Focus on self pacing, pursed lip breathing Stairs 2:26 18 (7.5) Supervision Same focus Sit <> stands 60sec Supervision From 22.5 mat no UE support Focus on LE strength and endurance HR 95, O2 91% Step ups 60sec Contact guard of 1 3 step up/reverse no UE support Sit <> stands 60sec Supervision From 22.5 mat no UE support Focus on LE strength and endurance Step ups 60sec Contact guard of 1 3 step up/reverse no UE support HR 103, O2 90% Amb with 4WW 1:18 Distant Supervision - Focus on self pacing, pursed lip breathing Patient/Family Education: Topic: Independent in room with 4ww, improved activity tolerance and addition of talking while walking, 4WW management Learner: patient Method: verbal Barriers to Learning: none noted Outcome: verbalized understanding Team Communication: With OT re: clearing pt for independence & whiteboard updated with mobility status Assessment/Plan Assessment Pt continues to demonstrate improved endurance and activity tolerance, ambulating >1,000ft and able to engage in conversation while ambulating. Pt able to negotiate full flight of stairs for the first time today, which is necessary to access his bathroom at home. Successful trial of 4WW to allowpt to ambulate community distances with option for seated rest as needed. Pt now cleared for independence in his room with use of 4WW. Plan Continue per primary - activity tolerance and stairs Primary Therapist: Contact information: Pager: [phone] Caitie Tracy PT 05/07/2019 8:55 * Sheela Anthony, OT - 05/07/2019 0801 EST Rehabilitation Therapies Inpatient Rehabilitation [facility] Occupational Therapy Encounter Note Date of Service: 05/07/2019 Subjective/Objective SUBJECTIVE: I don't feel as winded while I walk around anymore. re: pt's response when OT stated that he can now talk while he is walking without becoming fatigued. OBJECTIVE: First Session Start time: 829 Scheduled time: 9628-0244 Total Therapy Minutes: 60 minute(s) Interventions included: Self-Care/Home Management (1) Therapeutic Activities (2) Therapeutic Exercise (1) -Per pt's request to complete meal prep, OT brought meal prep ingredient form and explained it to pt. Pt stated that he would think about what meal he would like to prepare. -Pt ambulated to laundry room with close supervision, rw and w/c following behind. Pt carried laundry basket using rw tray. Pt loaded clothing into washing machine with CGA. -Completed BUE exercises to improve strength needed during self care and light IADL ?? Basketball toss with 1.5# cuff weights around each wrist. Challenged pt by increasing distance of ball pass. ?? Pt tolerated 2 sets of 2 min intervals with a rest break in between each. OT provided verbal cueing for PLB. -Completed [employer] connect-4 game with a focus on increased endurance, fine motor coordination/control, and BUE strengthening ?? Pt continued to wear 1.5# cuff weights on each wrist. Managed each game piece successfully without dropping. Vital signs: Vital signs were monitored and were stable throughout occupational therapy session. Patient/Family Education: Topic: Benefits of activity D/C planning Learner: patient Method: verbal Barriers to Learning: none noted Outcome: verbalized understanding Second Session Start time: 1100 Scheduled time: 1522-5895 Total Therapy Minutes: 30 minute(s) Interventions included: Self-Care/Home Management (2) -Reviewed meal prep ingredients form with pt and asked what he would like to prepare for tomorrow'ssession. Pt stated what he would like to make and filled out the form. -Pt ambulated to laundry room with close supervision, rw and w/c following behind. Pt retrieved clothing from dryer by placing laundry basket on ground and loading clothes in. Pt initiated rest breakin w/c, then ambulated back to room. -Folded clothing in standing with a focus on increased endurance, IADL participation, and functional mobility without rw while in room ?? Pt folded all clothing in standing and placed in laundry basket. Ambulated to closet with CGA and no rw. ?? Pt put all clothing away, tolerated 7 minutes of standing. Vital signs: Vital signs have been stable with interventions and were not monitored. Patient/Family Education: Topic: Benefits of activity D/C planning Learner: patient Method: verbal Barriers to Learning: none noted Outcome: verbalized understanding Team Communication: Communicated with PT re: pt independent status in room Assessment/Plan ASSESSMENT: Pt tolerated therapy well with good motivation and notable gains this date. Pt has shown significant improvements in activity tolerance, affect and overall endurance and shows initiative to complete tasks that he will be doing at home. This patient continues to present with endurance, BUE strength, and standing balance that are lower than PLOF, all of which impact current level of occupational performance. The patient remains appropriate for skilled OT services at an acute rehab level to regain independence and functional mobility for ADL and IADL. PLAN: ?? Multi-component meal prep planned for 05/08 ?? Continuation of BUE strengthening ?? Household management tasks Pager: [phone] ENEDINA ANNA, 05/07/2019, 8:02 * Emma Horvath, OT - 05/05/2019 1056 EDT [facility] Rehabilitation Therapy Inpatient Rehabilitation [facility] Occupational Therapy Encounter Note Date of Service: 05/05/2019 Subjective/Objective Subjective It's just this pneumonia that has my lung not working as well as they used to...today is a little harder, but I've done a lot this past week Objective Session 1: Start time: 0900 Treatment time: 30 Session 2: Start time: 11:30 Treatment time: 30 Total Therapy Minutes: 60 minute(s) Interventions included: ADLs Therapeutic Exercise Therapeutic activities - ADLs: Pt completed UBD/LBD with S. Pt had previously gathered clothing in his room. S for standing ADLs. V/c for breathing technique. Pt completed jose level mobility using RW with close S. No LOB.In the dining room pt completed standing IADL task to make a cup of hot tea. No LOB but pt rushed through task towards the end 2/2 fatigue and need for a rest. Edu in EC techniques for household tasks. - Therex: Pt completed 1x10 UE therex (standing) using 1lbs weight - rest breaks following each setwith vitals monitored as below. - Therax: Pt used dowel BUE therax (seated) to challenge activity tolerance and UE strength. Pt completed 3x15 with rest breaks t/o. Pt completed standing balance/tolerance ax taking turns to play [employer] game. ~2min before requesting seated rest break. - Transfer to bed with S using RW. Vital signs: O2 >92 throughout HR 100-107 Patient/Family Education: See above Team Communication: Via primary OT coverage sheet Assessment/Plan Assessment Pt tolerated session well despite reports of increased fatigue today. He continues to benefit from skilled OT services to improve overall activity tolerance, endurance, and strength required for safecompletion of ADLs and IADLs. Plan Cont with primary OT POC with focus on BUE strengthening, IADLs as tolerated, and increased endurance and standing balance during ADLs. Emma Horvath OT, 05/05/2019, 10:56 * Elizabeth Licea, PT - 05/04/2019 2006 EDT [facility] Rehabilitation Therapy Inpatient Rehabilitation [facility] Physical Therapy Progress Note Date of Service: 05/04/2019 Precautions: Limitations of treatment: CPR: withhold Intubation/Mechanical ventilation: provide Medication for arrhythmia: provide Level of Risk: A Diet Dysphagia- stage 3, thin liquids, one food and one fluid consistency Activity as tolerated O2 Therapy: 1-4 lpm, adjust flow rate to maintain > 89% spO2 Subjective/Objective Subjective n/a Objective Intervention Completed Today: See Note by Caitie Tracy, PT In this reporting period 04/24/19 to 05/04/19 the patient has been seen by a physical therapist at afrequency of 1-2 times/day, 6 times/week,for 90 minutes/day. Interventions have included Therapeutic exercise, Therapeutic activities, Gait Training, Neuromuscular re-education and Wheelchair training. History of present illness: Per Dr. Otero's H&P dated 04/23/19: Patient is a??64-year-old male with no prior medical history although he had not seen a physician in some 10 years. ??He presented to [facility] on 03/17/2019 with approximately 2.5 weeks of fever, loss of appetite, weakness,fatigue and diarrhea. ??Work-up at [facility] revealed pneumonia/ARDS and renal failure, as well as atrial fibrillation with RVR. ??[facility] failure with ARDS, volume overload, COPD and hemodynamicinstability. ??He had evidence of sepsis secondary to a left lower lobe pneumonia and MSSA bacteremia. ?? On admission he was placed on Levophed and propofol, transition to ketamine secondary to hypotension. ??He was on Zosyn and azithromycin, and changed to ceftaroline as well as given vancomycin. ??Antibiotics were narrowed to nafcillin with Zosyn on 03/21/2019. ??On 03/20/2019 he did have some acute de compensation with concern of pulmonary embolism, was given heparin but developed bright red blood per rectum and of his orogastric tube. ??He had an acute blood loss anemia was transfused 3 units packed red blood cells and 1 unit platelets, started on pressors. ??EGD is revealed diffuse stomach andduodenal ulcerations. ??CT scan of the abdomen pelvis showed the jejunum being edematous and thicken ed, there was marked gallbladder distention without radiopaque cholelithiasis or evidence of gallbladder wall thickening. ??There was a left adrenal nodule favoring adenoma. ??TIESHA showed no acute findings during his stay. ??The difficulty with weaning from mechanical ventilation and a tracheostomy tube was placed on 03/28/2019 and was additionally weaned from pressors. ??CT scan of the chest with multifocal pneumonia within both lungs, bilateral parapneumonic effusions, moderate aortic great vessel atherosclerotic calcifications and mucous in the right lower lobe airways. He again had an anemia and on 04/07/2019 received an additional unit of packed red blood cells. ??Hewas transitioned to the floor, but on 04/12/2019 developed hypoxia again, and was transferred back to the medical intensive care unit. ?? He again was stabilized and moved to the floors.?Follow-up imaging??showed slight progression ofmultifocal regions of airspace disease in the lungs and small bilateral pleural effusions. ??He??had??required continue supplemental oxygen up to 5 L last night with oxygen desaturation down to 86%. ??He subsequently was de cannulated and tolerated this well and nasogastric tube removed with patient taking a dysphagia level 3 diet well. ??He has been seen by all therapy modalities and actively participating, being independent with all mobility and self-cares prior to his hospitalization. ??Given functional limitations, he was evaluated and determined to be an appropriate candidate for acute inpatient rehabilitation.? This patient's current status is similar to the pre-admission screening and is appropriate for inpatient rehabilitation admission. Relevant Objective Findings: Arousal, Attention, and Cognition: Alert Oriented to Person, Place and Time Communication: Able to make needs known. Hoarse, breathy/muffled voice with air escape at stoma Cognition: Able to follow single and multi-step commands Motivation: Fully willing to participate in therapy. ?? Cardiopulmonary: Vital Signs: Intermittent spO2 desaturation to ~88 to 91% with physical activity. See Note from Caitie Tracy, PT dated 05/04/19 for details. Breath sounds (from [facility]): Absent B bases. Crackles at L upper and middle lobes. Cough: Moderate wheezing/productive cough Air escape at stoma. ?? Integumentary/Anthropometric Characteristics: Palpation/Observation: -Cachectic -Tracheostomy site covered, unclosed -Rash on R upper arm, stomach, back, and LEs (MD aware) -Distended rib cage Posture: Forward head and Protracted shoulders Height: Height: 181.6 cm (71.5) Weight: Weight : 54 kg (119 lb) ?? Range of Motion and Joint Integrity: Active Range of Motion: Within normal limits except as noted Upper Quarter: Left Upper Extremity: Right Upper Extremity: Cervical Spine: ?? Lower Quarter: B knees lacking ~5 deg knee extension with hard end feel Left Lower Extremity: Right Lower Extremity: Lumbar Spine: ?? Muscle Performance: Strength: From [facility] Upper Quarter: UE MMT Right Left Shoulder flexion 4/5 3+/5 Shoulder abduction - - Elbow flexion 4/5 3+/5 Elbow extension 4/5 4/5 Wrist extension - - Wrist flexion - - Installation Technician strength Moderate Moderate ?? Cervical Spine: NE ?? Lower Quarter: LE MMT Right Left Hip flexion 3+/5 3+/5 Hip abduction (modified in sitting) Able to hold against mod resistance Able to hold against mod resistance Hip adduction (modified in sitting) Able to hold against mod resistance Able to hold against mod resistance Knee extension 4/5 4/5 Knee flexion - - Ankle DF 3+/5 3+/5 Ankle PF - - Great toe extension 3+/5 3+/5 ?? Lumbar Spine: NE ?? Sensation, Reflexes, and Nerve Integrity: Light Touch Sensation: Denies changes in sensation. No deficits noted in function. Proprioception: NE ?? Neuromotor Function/Development: No problems noted ?? Balance, Mobility, and Gait: Balance: Sitting Balance Static: Independent Dynamic: Independent reaching outside DONITA in sitting Standing balance Static: Ced[place] 39/56 Dynamic: Requires BUEs on RW and supervision to ambulate Mobility: Bed Mobility: Roll Left and Right - Tasks involve the ability to roll from lying on back to left and right side, and return to lying on back Assistance Needed: Independent ?? Sit to Lying - Task involves the ability to move from sitting on side of bed to lying flat on the bed Bed Options/Device: Flat bed;No rails Independent ?? Lying to Sitting on Side of Bed - The ability to safely move from lying on the back to sitting on the side of the bed with feet flat on the floor, and with no back support Bed Options/Device: Flat bed;No rails Independent ?? Sit to Stand - The ability to safely come to a standing position from sitting in a chair or on the side of the bed Assistance Needed: Supervision, RW Transfers: Chair/Hdl-li-Digey Transfer - The ability to safely transfer to and from a bed to a chair (or wheelchair) Transfer Type: Stand pivot Supervision Walk/Wheelchair Wheelchair Propulsion Distance patient was able to propel: 150ft Assistance Needed: Supervision Wheelchair parts management: S/VC for brake management, dependent for leg rest management ?? Gait Distance patient ambulates: ~200-300ft Assistance Needed: Adaptive equipment;Supervision, W/C pushed behind for rest breaks Device used: 2 wheeled walker Gait deviations: Increased BUE WB on RW, increased accessory respiratory muscle use, decreased B step length and gait speed, discontinuous movement of RW with step to gait, WHEELER Stairs Up/down 9 with B rails and S, step to gait alternating leading limb ?? Self-Care, Home Management, Work, and Leisure: See OT Note ?? Outcomes: PT Outcomes 04/24/2019 04/25/2019 04/26/2019 5-Time Mui-an-Yktfi (sec) 28.31 6MW Distance Walked (meters) C[place]eno Balance Score (n/56) 20 Gait Speed - Distance (M) 4.27 Gait Speed - Time (sec) 88.38 Gait Speed - Velocity (meters/sec) 0.05 PT Outcomes 04/28/2019 05/01/2019 05/04/2019 5-Time Skh-hi-Vzvco (sec) 6MW Distance Walked (meters) 37.97 176 [place] Balance Score (n/56) 39 Gait Speed - Distance (M) 10 Gait Speed - Time (sec) 53.04 Gait Speed - Velocity (meters/sec) 0.19 Assessment/Plan Assessment The patient continues to be appropriate for skilled physical therapy on acute rehab to address the physical therapy diagnosis of impaired mobility due to debility from pneumonia complicated by sepsis, ARDS, renal failure, hemodynamic instability, COPD and Afib with RVR. The patient???s primary impairments include impaired cardiopulmonary status, decreased strength, decreased functional strength and endurance, decreased activity tolerance, impaired communication and impaired balance. These impairments contribute to functional limitations including requiring Sand/or adaptive equipment for sit <> stands, transfers, ambulation and stairs, which contribute to difficulty with participation in self care, work, and leisure activities. Pt has made good progress since admission to rehab. He has less frequent and less severe episodes of O2 desaturation with activity. He is able to ambulate increased distances and has less WHEELER and improved use of pacing and pursed lip breathing to increase activity tolerance. Pt has progressed from requiring assist for all upright mobility to S with appropriate assistive equipment. Pt has improved across all outcome measures that were re-assessed including gait speed, BBS and 6MWT. Although all values continue to be below age and gender matched norms and indicate continued impairment. Physical Therapy Prognosis: The patient is making good progress toward tentative discharge date of 05/15/19. Expect patient to reach modified independent for household mobility and stairs. Pt with good prognosis given anticipated progress as cardiopulmomary status improves, progress thus far, age and motivation. Progress may be limited by possible unknown pre-existing co-morbidities. Barriers to discharge: Stairs to enter and within home, limited assist, deficits above Short-Term Goals: 7-10 days ?? Pt will be I with bed mobility without bed features. MET ?? Pt will perform transfers with supervision. MET ?? Pt will ambulate 75ft with AD as needed and min CGA of 1.MET ?? Pt will negotiate 4 stairs with min A of 1-2 and B rails. MET ?? Pt will participate in gait speed assessment. MET ?? Pt will participate in 6MWT to demonstrate improved endurance and hemodynamic response. MET ?? Pt will participate in Cedeno Balance Scale assessment to quantify fall risk. MET ?? Pt will perform sit <> stand from standard height chair with no UE support. Progressing ?? Pt will independently perform pursed lip breathing and activity pacing with ambulation and functional mobility. Progressing ?? Pt will maintain spO2 > 90% on RA with all mobility. Progressing ?? Long-Term Goals: 3 weeks ALL PROGRESSING, consistent with time frame, continue (unless otherwise noted) ?? Pt will ambulate 150ft mod I to I with least restrictive AD to demonstrate ability to participate in household mobility. ?? Pt will be cleared I in room to demonstrate safety with household mobility from carolyne to dusk. ?? Pt will negotiate full flight of stairs with unilateral rail and supervision to demonstrate ability to access second story of home. ?? Pt will perform car transfers with supervision to demonstrate ability to attend medical appointments with caregiver. ?? Pt will ambulate with gait speed of >/=0.6m/s to demonstrate improved safety with household/community ambulation. ?? Pt will ambulate >/=54m from initial 6MWT distance to demonstrate significant improvement in functional endurance. MET, updated ?? Pt will score >/= 45/56 on the BBS to demonstrate decreased fall risk. ?? Pt will perform 5xSTS without UE use in <20 seconds to demonstrate improved functional strength. ?? Pt will maintain spO2 > 94% on RA with all mobility. Updated goals: 3 weeks from admission ?? Pt will ambulate >/=230m on the 6MWT to meet MDC from last time assessed. Plan Treatment/Intervention: Physical therapy to be provided by physical therapist and/or physical therapist library assistant as appropriate Frequency: 2 times per day for at least 5 days a week Intensity: 30-60 minutes/session, 90 minutes per day Duration: During rehab admission Interventions may include: Therapeutic exercise, Therapeutic activities, Gait Training, Neuromuscular re- education, Wheelchairtraining and Self-Care/Home management Further Data: n/a Patient/Family Education: Pt goals, PT POC, D/C planning, equipment, transfer/ambulation techniques, HEP, activity tolerance cues Equipment Needs: TBD- ?4 wheel rollater Discharge Destination: Home with caregiver (intially to SO's home but need to clarify) Discharge Services: Home health physical therapy Other recommendations: None Contact information: Pager: [phone] Elizabeth Licea PT 05/04/2019 20:09 * Eladio Otero MD - 05/04/2019 1532 EDT Physiatry Progress Note Admit Date: 04/23/2019 Hospital Day: LOS: 11 days Date of Service: 05/04/2019 Chief Complaint: Debility following respiratory failure Subjective: Reports his breathing overall is much improved. Not requiring supplemental oxygen with activity. Denies any GI distress. Continues smaller air leak at his tracheostomy tube site. Rash continues to bother him less daily. Current Facility-Administered Medications: acetaminophen (TYLENOL) tablet 650 mg oral Q4H PRN albuterol (ACCUNEB) nebulizer solution 2.5 mg nebulization Q4H PRN cholecalciferol (Vitamin D3) tablet 1,000 Units oral QHS DILTiazem (TIAZAC) ER capsule 120 mg oral DAILY diphenhydrAMINE (BENADRYL) capsule 25 mg oral Q6H PRN enoxaparin (LOVENOX) injection 40 mg subcutaneous DAILY ferrous sulfate EC tablet 324 mg oral DAILY (BREAKFAST) guaiFENesin (MUCINEX) SR tablet 600 mg oral BID melatonin tablet 5 mg oral QHS miconazole (DESENEX) 2 % powder topical BID mometasone-formoterol (DULERA) 100-5 mcg/actuation inhaler 2 Puff inhalation BID Multivitamins with Minerals tablet 1 Tab oral DAILY pantoprazole (PROTONIX) tablet 40 mg oral QHS senna (SENOKOT) tablet 2 Tab oral QHS tiotropium (SPIRIVA) 18 mcg inhalation capsule 18 mcg inhalation DAILY triamcinolone (KENALOG) 0.1 % ointment topical BID Wool Alcoh-Min Iwz-Eughu-Jcvwf (EUCERIN) cream topical BID Objective/Physical Exam: VS: BP 114/72 (BP Cuff Location: Right arm, Patient Position: Lying right side) Pulse 73 Temp 37.3 ??C (99.1 ??F) (Tympanic) Resp 16 Ht 181.6 cm (71.5) Wt 55.8 kg (123 lb) SpO2 100% BMI 16.92 kg/m?? Pain: Patient Vitals for the past 8 hrs: Numeric Pain Level (Scale 1-10) 05/04/19 0845 0 Weight: Weight : 55.8 kg (123 lb) Glucose Readings (last 8 readings): No results for input(s): GLUCOSEFINGE in the last 72 hours. I&O: Intake/Output Summary (Last 24 hours) at 05/04/2019 1532 Last data filed at 05/04/2019 0625 Gross per 24 hour Intake -- Output 1150 ml Net -1150 ml Exam: Gen: Alert, pleasant, no distress HEENT: Head: Normocephalic, no lesions, without obvious abnormality. Neck: Tracheostomy site is open with air leak, with the site approximately 0.5 cm open. Wound edgesare clean. Sacral ulceration, unstageable Skin: Sacral ulcer. (Image in scanned images from 04/30/2019), macular rash extending throughout, with some bright erythema at his elbows and knees (knee image below) cardiac: Cor RRR Pulmonary: Diffuse rhonchorous sounds but good air movement otherwise throughout. Abdomen: Bowel sounds present throughout, soft, nontender Musculoskeletal: no joint tenderness, deformity or swelling, no muscular tenderness noted, full range of motion without pain Neuro: Alert, oriented, thought content appropriate Affect: appropriate Language: speech fluent and spontaneous, intact naming and repetition Motor: Strength 4+/5 and symmetric without focal weakness Tone normal Reflexes: 1+ Sensation: No focal sensory loss Cerebellar: no tremors Labs: I have personally reviewed CBC: Lab Results Component Value Date WBC 10.01 04/22/2019 RBC 2.95 (L) 04/22/2019 HGB 8.3 (L) 04/22/2019 HCT 26.3 (L) 04/22/2019 MCV 89 04/22/2019 MCH 28.1 04/22/2019 MCHC 31.6 (L) 04/22/2019 PLT 293 04/22/2019 NEUTROABS 8.90 (H) 03/20/2019 BMP: Lab Results Component Value Date NA 135 (L) 04/22/2019 K 4.4 04/22/2019 CL 105 04/22/2019 CO2 23 04/22/2019 BUN 66 (H) 03/24/2019 CREATININE 0.75 04/22/2019 GLUCOSEFINGE 126 (H) 04/07/2019 CALCIUM 8.8 04/22/2019 MG 1.8 04/22/2019 PHOS 4.7 (H) 04/22/2019 LABALBU 2.2 (L) 03/17/2019 Assessment/Problems: (update problem list daily as appropriate) Patient Active Problem List Diagnosis Date Noted ??? Upper gastrointestinal bleed 04/18/2019 Priority: Medium ??? Septic shock ([facility]) 03/19/2019 Priority: Medium ??? (H)ARDS (adult respiratory distress syndrome) ([facility]) 03/19/2019 Priority: Medium ??? (H)SIRISHA (acute kidney injury) ([facility]) 03/19/2019 Priority: Medium ??? Anemia 03/19/2019 Priority: Medium ??? Thrombocytopenia ([facility]) 03/19/2019 Priority: Medium ??? Bacteremia 03/19/2019 Priority: Medium ??? Fever 03/19/2019 Priority: Medium ??? Encephalopathy 03/19/2019 Priority: Medium ??? (H)Atrial fibrillation with RVR ([facility]) 03/17/2019 Priority: Medium ??? (H)Acute respiratory failure with hypoxia ([facility]) 03/17/2019 Priority: Medium Plan: 1. Debility following prolonged hospitalization, multiple medical comorbidities, including hypoxic respiratory failure: Residual impaired mobility, self-cares, swallowing function. Full PT, OT, SECURITY ASSISTANT assessments and therapies to address mobility, self care, swallowing function. 24 hour rehab nursing for self care deficits 2. Nutrition: No on a regular consistency diet. 3. Pneumonia/MSSA bacteremia with acute hypoxic respiratory failure/ARDS: Clinically improving, decannulated and maintaining oxygen saturations but may need supplemental oxygen with increasing activity. Internal medicine help appreciated Continue duo nebs twice daily Maintain guaifenesin 600 mg twice daily Occlusive dressing to the open tracheostomy site. 4. Duodenal ulcer/upper GI bleed: Continue Protonix 40 mg daily. 5. Acute kidney injury: Creatinine has normalized we will monitor overall fluid intake, avoid nephrotoxic agents 6. Anemia: Multifactorial including acute care illness, GI bleed. Counts have been relatively stable but continue to monitor intermittently 7. Sacral ulcer: Unstageable. Followed by wound care nursing. Ary recommended by wound care. 8. Atrial fibrillation: Back in sinus rhythm. Dermatology believes metoprolol may be the offending agent for the rash, and he has been changed to diltiazem for rate control. Currently not on anticoagulation given recent GI bleed and low CHADS score as documented by medicine. 9. Rash: Appears to be a drug rash, possibly related to metoprolol. Treating symptomatically currently with triamcinolone topically and Benadryl. Clinically much improved, essentially resolved through the trunk and resolving through the lower limbs. DVT Prophylaxis: Pharmacologic Prophylaxis: Enoxaparin (Lovenox) 40 mg SQ daily Eladio Otero MD 05/04/2019 15:32 * Viktoria Farr RN - 05/04/2019 0928 EDT Images from the original note were not included. 05/04 04/23: re-consulted to assess pressure injury ?? Pt known to wound care from admission on main campus. Pt was admitted with a deep tissue injury that quickly evolved and became unstageable. Wound care saw pt yesterday, please review note, pic below. Spoke with bedside nurse Dimple and suggested that Sanytl continue to be used to debride yellow slough from base. Wound care will continue to follow. ?? 04/27 - slight improvement with debridement of yellow slough. Surrounding area continues to be fragile blanchable erythema. Rash on surrounding skin has improved. Current assessment: base of mid coccyx ulcer continues to be unstageable with yellow slough fillingthe base. Surrounding area that was breaking down has improved. Due to slow responds from Santyl ointment I suggest to d/c this treatment and use Therahoney to base of wound. I applied first treatment of honey this morning. Assessed bilateral acromion's per request of nursing. These areas are red, irritated and blanchable. Mepilex border dressing in place for protection ?? Recommend Dime size amount of Therahoney to 2x2 dressing, place over yellow slough on coccyx wound. Cover with??Mepilex??sacral??border. Change every 5-7 days or prn for saturation. Lift daily to assess area and place back down.? Offload pressure from coccyx at all times Turn and reposition pt q2hrs Float heels off from mattress?? Viktoria Farr Pressure Ulcer Prevention Nurse * Caitie Tracy, PT - 05/04/2019 0842 EDT [facility] Physical Therapy Encounter Note Date of Service: 05/04/2019 Subjective/Objective Subjective It's getting much easier to keep going without getting out of breath I have to admit, when you said 9 stairs, it really intimidated me, but it wasn't as bad as I thought, and my bathroom is on the 2nd floor and my bedroom is on the first, so I need to do that each time I need to go to the bathroom Objective Start time: 0900 Total Therapy Minutes: 30 minute(s) Interventions completed today: VS Pre: 118/70 HR 91 O2 98% on RA VS Mid session: HR 110, O2 94% on RA VS Post: HR 111, O2 95% on RA Neuromuscular re-education: ?? Completed CEDENO balance (see below for details), requires seated rest periods between test items. Wheelchair training: ?? Self propel w/c room <> gym (~120ft) with distant supervision with Pastor Norris 2nd Session Time: Start time: 1300 Total Therapy Minutes: 30 minutes Interventions completed today: VS Pre: HR 110, O2 97% Therapeutic activities: -All completed for functional endurance Task Distance VS Assist Comments & Cues Amb w/ RW 578ft (for 6MWT) O2 92% HR 113 Supervision, therapist provided w/c follow - Completion of 6MWT, no rest breaks needed. Results below Stair and Amb 120ft & 4 (6) steps O2 91% HR 109 Same Focus on pursed lip breathing, pacing, self monitoring dyspnea and need for rest breaks B rails - step to step on stairs alternating lead LEs, ascend/descend Amb 440ft O2 93% HR 98 Supervision Same 3rd Session Time: Start time: 1530 Total Therapy Minutes: 30 minutes Interventions completed today: -All completed for functional endurance Task Distance VS Assist Comments & Cues Amb w/ RW ~100ft O2 96% HR 82 Supervision, therapist provided w/c follow Focus on pursed lip breathing, pacing, self monitoring dyspnea and need for rest breaks Stair and Amb 9 (7.5) steps O2 91% HR 109 Same B rails - step to step on stairs alternating lead LEs, both ascend/descend Amb 446ft O2 91% HR 91 Supervision Same as 1st and pushing distance Outcomes Cedeno Balance Scale (BBS)^ 39/56. This test is a 14-item objective measure designed to screen balance in adult populations. Balance is one domain of fall risk. As the score decreases, the patient may exhibit more balance deficits putting them at increased risk for falling. (Barb, 2008, Kashif, 2004, Ashlie, 2016) 1. Sitting to standing 3 2. Standing unsupported 4 3. Sitting unsupported feet on floor 4 4. Standing to sitting 3 5. Transfers 3 6. Standing unsupported with eyes closed 3 7. Standing unsupported with feet together 4 8. Reaching forward with outstretched arm 4 9. melter supervisor object from floor 3 10.Turn look behind over left/right shoulder 1 11.Turn 360 degrees 1 (<4sec B) 12.Stool touch 2 (<20sec) 13.Standing unsupported one foot in front 2 14.Standing on one leg 2 Total 39/56 Age/gender normative values for community dwelling elders (Rg, 2002) Age Gender 95% CI 60-69 Male 55-56 60-69 Female 54-56 70-79 Male 52-56 70-79 Female 52-55 80-89 Male 51-54 80-89 Female 49-52 Six Minute Walk Test^ (meters) with RW, no rest breaks needed 176 meters(with RW). This test assesses distance walked over 6 minutes as a sub-maximal test of aerobic capacity/endurance. Age/gender normative values: (Tami, 2001) Age Gender Range for age norms 2 standard deviations around the mean (meters) Range for age norms 2 standard deviations around the mean (feet) 20-40 Male [phone] Female [phone] 41-60 Male [phone] Female [phone] (Gila, 2007) Age Gender 95% CI (meters) 95% CI (feet) 60-69 Male [phone] Female [phone] 70-79 Male [phone] Female [phone] 80-89 Male [phone] Female [phone] Patient/Family Education: Topic: Improvements in outcomes, endurance improvements and focus on session, ambulation over weekend 5x/day Learner: patient Method: verbal Barriers to Learning: none noted Outcome: verbalized understanding Team Communication: Whiteboard updated with supervision for all mobility, ambulate 5x/day over weekend Assessment/Plan Assessment Pt demonstrates improvement in CEDENO balance from 20 to 39/56, meeting MDC, however continues to demonstrate high risk of falls. Pt's functional endurance also improving indicated by improvement in 6MWT from 37.97 meters to 176 meters without need for rest breaks. Despite nice gains, endurance remains below age and gender matched norms and continued LE strength deficits noted by requiring B UE support to stand from a chair. Plan Continue per Primary: Endurance, stairs Primary Therapist: Elizabeth Licea Contact information: Pager: [phone] Caitie Tracy, PT 05/04/2019 16:09 * Sheela Anthony OT - 05/04/2019 0707 EDT [facility] Therapy Inpatient Rehabilitation [facility] Occupational Therapy Progress Note Date of Service:05/04/2019 Subjective/Objective Subjective I think the laundry was a little more difficult than washing dishes, but it all felt okay. re: pt's response when asked how light IADL tasks went. Objective Interventions Completed Today: Start time: 929 Total Therapy Minutes: 30 minute(s) Intervention included: Self-Care/Home Management (2) *ambulated ~50-75 ft with RW towards LSR *focus of session was on kitchen safety and mobility without AD and utilizing energy conservation techniques -retrieved items from fridge and freezer to make milkshake. -transported items without walker ~8 fts towards counter. -increase SOB noted when retrieving foundry manager from lower cabinet, however, however able to take standing rest break to focus on breath -tolerated standing x5' while making smoothie, side stepping using counter for support to access microwave (to soften ice cream). -required 1 seated rest break during snack prep -good fine motor skills noted to open all containers. Toilet transfer: With RW and supervision. Pt taking extra caution when sitting due to wound feelinguncomfortable *toileting: distant Supervision O2 sats ranging from 90-97% throughout session on RA Second session Start Time: 1100 Total Minutes Treatment 2: 60 Interventions included: Therapeutic Activities (2) Therapeutic Exercise (2) -Pt ambulated from room to elevator with CGA x1 and rw while maintaining slow, consistent pace. -BUE strengthening using UB restorator to increase strength required during ADL and IADL ?? Pt completed 3 intervals of 2 minutes. Pt initiated rest breaks and decreased resistance for last 2 intervals. OT provided verbal cues to continue PLB. ?? O2 94-95% throughout. -Pt folded clothing and washed dishes in standing with a focus on increased endurance, standing balance, and IADL participation ?? Pt stood for 3 minutes to fold laundry without external support. Demonstrated trunk rotation while reaching to side table to retrieve clothing, then fold clothing in front of him. ?? Pt also stood for 3 minutes to wash dishes. Used BUE the entire task without the need to use counter for support. Vital Signs: Vital signs were monitored and were stable throughout occupational therapy session. See above. Patient/Family Education: Topic: Benefits of activity Energy conservation Learner: patient Method: verbal Barriers to Learning: none noted Outcome: verbalized understanding Team Communication: This note serves as primary form of team communication this date. In this reporting period 04/25 to 05/04, the patient has been seen for: 6x/wk, 60-90 minute sessions Interventions have included: Occupation Based Activity - Basic Activities of Daily Living, Occupation Based Activity - Instrumental Activities of Daily Living, Purposeful Activity, Preparatory Method - Exercise, Preparatory Method - Range of Motion and Patient/Family Education Relevant Objective Findings: Body Functions and Performance Skills: Mental Functions Specific Mental Functions (judgement,insight, awareness, attention, memory, spatial relations, coping, body image): ?? Pt demonstrates awareness and insight to his functional limitations as evidenced by verbalizing the need for rest breaks and making his needs known. ?? Able to attend to tasks until completed. ?? Good memory from skills worked on in previous sessions. ?? Global Mental Functions (orientation, arousal, energy and drive, impulse control): ?? A&Ox3 ?? Alert throughout sessions, however often significantly fatigued ?? Good impulse control, however sometimes demonstrates unsafe body mechanics during sit to stand transfers Sensory Functions Touch: No deficits noted. Vision: no deficits noted and pt reports no changes Hearing: No deficits noted. ?? Neuromusculoskeletal and Movement Related Functions ?? Range of motion: BUE WNL Strength: B shoulder flexion 3/5. B elbow flexion 4/5. B elbow extension 5/5. Muscle endurance: Pt fatigues after 2-3 minute standing intervals. Involuntary movement reactions: Good sitting balance while at EOB. Pt demonstrates ability to maintain standing balance with rw, and occasional intervals without rw during standing BUE tasks. Control of voluntary movement: Pt successfully manages small self care items including toothbrush and comb with independence. Occasional B hand tremors noted. ? The Box and Blocks test was performed today to assess hand coordination. This test requires the patient to move as many 1 inch cubes from one side of the box to the other in one minute. Side Blocks Norm RIGHT Box & Blocks - Right (#): 51 88+/-8.3 LEFT Box & Blocks - Left (#): 52 83.4 +/-7.9 9 Hole Peg Test^: This test measures finger dexterity. 05/03/2019 Right (seconds) (P) 22 Left (seconds) (P) 29 ?? Age/gender based healthy normative values (Pinellas-Rahul, 2003) Male Range (seconds): mean ?? 2 standard deviations Range (seconds): mean ?? 2 standard deviations Age Right Left 21 - 25 13.11 - 19.71 14.65 - 20.35 26 - 30 13.10 - 20.66 13.40 - 22.28 31 - 35 12.14 - 22.94 12.59 - 24.35 36 - 40 13.47 - 21.95 14.02 - 23.22 41 - 45 12.78 - 24.30 13.65 - 23.33 46 - 50 13.41 - 23.29 14.19 - 24.95 51 - 55 14.16 - 23.64 13.64 - 26.04 56 - 60 11.80 - 30.00 14.86 - 28.42 61 - 65 13.87 - 27.87 15.64 - 27.56 66 - 70 14.65 - 27.81 14.87 - 29.71 >= 71+ 14.59 - 36.99 16.87 - 35.03 Female Range (seconds): mean ?? 2 standard deviations Range (seconds): mean ?? 2 standard deviations Age Right Left 21 - 25 12.40 - 19.68 14.11 - 20.31 26 - 30 12.08 - 19.72 13.43 - 20.51 31 - 35 13.29 - 20.09 13.21 - 21.73 36 - 40 12.84 - 20.64 14.00 - 22.32 41 - 45 12.26 - 20.82 13.52 - 21.76 46 - 50 13.34 - 21.38 13.36 - 22.56 51 - 55 13.62 - 21.14 14.34 - 23.50 56 - 60 13.08 - 22.64 12.96 - 26.00 61 - 65 14.63 - 23.35 14.81 - 25.85 66 - 70 13.60 - 26.20 13.50 - 29.38 >= 71+ 10.45 - 34.53 12.79 - 35.43 ?? Skin and Related Structure Functions Skin functions: Pt has a Coccyx deep tissue injury that has evolved and became unstageable. Nursingand MD aware and have been monitoring. Reddened/rash areas throughout body, pt does not report any pain however reports that rash feels like sunburn Areas of Occupation and Performance Skills: ?? 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 male admitted on 04/23/2019 due to functional limitations s/p debilityfollowing respiratory failure due to MSSA pneumonia and septic shock. Pt had a complicated medical stay involving a tracheostomy, upper GI hemorrhage from a multifocal ulcer, severe malnutrition and a deep tissue injury. He initially presented to rehabilitation with decreased functional activity tolerance, standing balance, profound weakness, malnutrition, fatigue, decreased coordination and poorO2 saturation with mild exertion, all impacting his ability to independently complete self-care, household management, and leisure activities. Prior to admission, the patient was independent in all as pects of ADL and IADL with occasional shared responsibilities with significant other. Progress this reporting period has been consistent and notable. Pt has been consistently motivated to participate in OT sessions and to return to prior level of function. Notable gains include: increased endurance during self care and light IADL, improved B hand grasp and fine motor coordination/control, and improved standing balance. The focus of the remainder of this pt's acute rehab stay include continuation of BUE strengthening, promoting increased endurance during self care routine, participation in more complex IADL (meal prep, per pt request), and d/c planning. GOALS: Short Term Goals: 7-10 days ? Pt will increase functional standing tolerance to 2 minute intervals while maintain O2 sats >89% Met ?? Pt will complete all grooming tasks standing at sink with supervision. Met ?? Pt will complete ambulatory toilet transfer with RW and contact A x1 Met ?? Pt will complete UB/LB bathing with supervision. Met ?? Pt will independently implement PLB techniques into ADL routine and maintain O2 sats above 89% Progressing ?? Senior Care Goals: 3 weeks PROGRESSING-continue all goals ?? ? Pt will complete all grooming tasks standing at sink with independence. ? Pt will complete shower transfer with supervision. ? Pt will shower with distant supervision. ? Pt will complete toilet transfer with independence. ?? Pt will complete lower body dressing with independence. ?? Pt will complete light meal prep with supervision. ?? Pt/caregiver will verbalize understanding of recommendations for AE. ?? Pt/caregiver will verbalize understanding of energy conservation techniques. ?? Pt will independently implement energy conservation techniques into self-care routine. ?? Pt/caregiver will verbalize good understanding of fall prevention education and will identify strategies to implement into daily routine for safety at home. ?? Pt/caregiver will demonstrate independence with all home exercises as instructed by therapy and verbalize daily carryover of exercises. ?? Plan Intervention: Occupational therapy treatment for 90 minutes a day 5-6 times a week for 7-10 days Interventions include: Occupation Based Activity - Basic Activities of Daily Living, Occupation Based Activity - Instrumental Activities of Daily Living, Purposeful Activity, Preparatory Method - Exercise and Patient/Family Education Further Data: Meal prep Patient/Family Education: ECT, fall prevention/home safety, home equipment Discharge Plan: D/c to significant other's home with home health OT services. Pager: [phone] Sheela Anthony OT, 05/04/2019, 10:04 * Eladio Otero MD - 05/03/2019 1404 EDT Physiatry Progress Note Admit Date: 04/23/2019 Hospital Day: LOS: 10 days Date of Service: 05/03/2019 Chief Complaint: Debility following respiratory failure Subjective: Reports his breathing overall is much improved. Denies any GI distress. Continues smaller air leak at his tracheostomy tube site. He notes that the rash in his lower extremities jaimes, but he has no significant itching. Lightheadedness. Current Facility-Administered Medications: acetaminophen (TYLENOL) tablet 650 mg oral Q4H PRN albuterol (ACCUNEB) nebulizer solution 2.5 mg nebulization Q4H PRN cholecalciferol (Vitamin D3) tablet 1,000 Units oral QHS collagenase (SANTYL) ointment topical DAILY DILTiazem (TIAZAC) ER capsule 120 mg oral DAILY diphenhydrAMINE (BENADRYL) capsule 25 mg oral Q6H PRN enoxaparin (LOVENOX) injection 40 mg subcutaneous DAILY ferrous sulfate EC tablet 324 mg oral DAILY (BREAKFAST) guaiFENesin (MUCINEX) SR tablet 600 mg oral BID melatonin tablet 5 mg oral QHS miconazole (DESENEX) 2 % powder topical BID mometasone-formoterol (DULERA) 100-5 mcg/actuation inhaler 2 Puff inhalation BID Multivitamins with Minerals tablet 1 Tab oral DAILY pantoprazole (PROTONIX) tablet 40 mg oral QHS senna (SENOKOT) tablet 2 Tab oral QHS tiotropium (SPIRIVA) 18 mcg inhalation capsule 18 mcg inhalation DAILY triamcinolone (KENALOG) 0.1 % ointment topical BID Wool Alcoh-Min Hce-Urbid-Hopxn (EUCERIN) cream topical BID Objective/Physical Exam: VS: BP 118/69 (BP Cuff Location: Right arm, Patient Position: Lying right side) Pulse 75 Temp 35.8 ??C (96.4 ??F) (Tympanic) Resp 14 Ht 181.6 cm (71.5) Wt 55.8 kg (123 lb) SpO2 100% BMI 16.92 kg/m?? Pain: Patient Vitals for the past 8 hrs: Numeric Pain Level (Scale 1-10) 05/03/19 0900 0 Weight: Weight : 55.8 kg (123 lb) Glucose Readings (last 8 readings): No results for input(s): GLUCOSEFINGE in the last 72 hours. I&O: Intake/Output Summary (Last 24 hours) at 05/03/2019 1404 Last data filed at 05/03/2019 0310 Gross per 24 hour Intake -- Output 525 ml Net -525 ml Exam: Gen: Alert, pleasant, no distress HEENT: Head: Normocephalic, no lesions, without obvious abnormality. Neck: Tracheostomy site is open with air leak, with the site approximately 0.5 cm open. Wound edgesare clean. Sacral ulceration, unstageable Skin: Sacral ulcer. (Image in scanned images from 04/30/2019), macular rash extending throughout, with some bright erythema at his elbows and knees (knee image below) cardiac: Cor RRR Pulmonary: Diffuse rhonchorous sounds but good air movement otherwise throughout. Abdomen: Bowel sounds present throughout, soft, nontender Musculoskeletal: no joint tenderness, deformity or swelling, no muscular tenderness noted, full range of motion without pain Neuro: Alert, oriented, thought content appropriate Affect: appropriate Language: speech fluent and spontaneous, intact naming and repetition Motor: Strength 4+/5 and symmetric without focal weakness Tone normal Reflexes: 1+ Sensation: No focal sensory loss Cerebellar: no tremors Labs: I have personally reviewed CBC: Lab Results Component Value Date WBC 10.01 04/22/2019 RBC 2.95 (L) 04/22/2019 HGB 8.3 (L) 04/22/2019 HCT 26.3 (L) 04/22/2019 MCV 89 04/22/2019 MCH 28.1 04/22/2019 MCHC 31.6 (L) 04/22/2019 PLT 293 04/22/2019 NEUTROABS 8.90 (H) 03/20/2019 BMP: Lab Results Component Value Date NA 135 (L) 04/22/2019 K 4.4 04/22/2019 CL 105 04/22/2019 CO2 23 04/22/2019 BUN 66 (H) 03/24/2019 CREATININE 0.75 04/22/2019 GLUCOSEFINGE 126 (H) 04/07/2019 CALCIUM 8.8 04/22/2019 MG 1.8 04/22/2019 PHOS 4.7 (H) 04/22/2019 LABALBU 2.2 (L) 03/17/2019 Assessment/Problems: (update problem list daily as appropriate) Patient Active Problem List Diagnosis Date Noted ??? Upper gastrointestinal bleed 04/18/2019 Priority: Medium ??? Septic shock ([facility]) 03/19/2019 Priority: Medium ??? (H)ARDS (adult respiratory distress syndrome) ([facility]) 03/19/2019 Priority: Medium ??? (H)SIRISHA (acute kidney injury) ([facility]) 03/19/2019 Priority: Medium ??? Anemia 03/19/2019 Priority: Medium ??? Thrombocytopenia ([facility]) 03/19/2019 Priority: Medium ??? Bacteremia 03/19/2019 Priority: Medium ??? Fever 03/19/2019 Priority: Medium ??? Encephalopathy 03/19/2019 Priority: Medium ??? (H)Atrial fibrillation with RVR ([facility]) 03/17/2019 Priority: Medium ??? (H)Acute respiratory failure with hypoxia ([facility]) 03/17/2019 Priority: Medium Plan: 1. Debility following prolonged hospitalization, multiple medical comorbidities, including hypoxic respiratory failure: Residual impaired mobility, self-cares, swallowing function. Full PT, OT, SECURITY ASSISTANT assessments and therapies to address mobility, self care, swallowing function. 24 hour rehab nursing for self care deficits Team meeting is attended today and case discussed with all team members. I spent 35 minutes of floor time, greater than 50% of that time was spent face to face with the patient in counseling and coordination of care and counseling including review of therapy goals and barriers to discharge, recovery, functional progress. 2. Nutrition: Now on dysphagia level 4 diet with thin liquids. Nutrition consult 3. Pneumonia/MSSA bacteremia with acute hypoxic respiratory failure/ARDS: Clinically improving, decannulated and maintaining oxygen saturations but may need supplemental oxygen with increasing activity. Internal medicine help appreciated Continue duo nebs twice daily Maintain guaifenesin 600 mg twice daily Occlusive dressing to the open tracheostomy site. 4. Duodenal ulcer/upper GI bleed: Continue Protonix 40 mg daily. 5. Acute kidney injury: Creatinine has normalized we will monitor overall fluid intake, avoid nephrotoxic agents 6. Anemia: Multifactorial including acute care illness, GI bleed. Counts have been relatively stable but continue to monitor intermittently 7. Sacral ulcer: Unstageable. Followed by wound care nursing. Continue topical treatment and pressure relief. 8. Atrial fibrillation: Back in sinus rhythm. Dermatology believes metoprolol may be the offending agent for the rash, and he has been changed to diltiazem for rate control. Currently not on anticoagulation given recent GI bleed and low CHADS score as documented by medicine. 9. Rash: Appears to be a drug rash, possibly related to metoprolol. Treating symptomatically currently with triamcinolone topically and Benadryl. Clinically much improved, essentially resolved through the trunk and resolving through the lower limbs. DVT Prophylaxis: Pharmacologic Prophylaxis: Enoxaparin (Lovenox) 40 mg SQ daily Eladio Otero MD 05/03/2019 14:04 * Elizabeth Licea, PT - 05/03/2019 0846 EDT [facility] Rehabilitation Therapy [facility]patient [facility] Physical Therapy Encounter Note Date of Service: 05/03/2019 Subjective/Objective Subjective Let's do the stepping machine first so I'm not too tired for the rest of the morning. Objective Start time: 1000 Total Therapy Minutes: 30 minute(s) Interventions completed today: Therapeutic activities (2): NuStep: To promote improved activity tolerance/endurance. -3:53, 3:40 and 3:30 with ~2-4 min rest break between bouts Seat/arms: 11 Workload: 4 *spO2 >/=93% throughout 2nd Session Time: Start time: 1130 Total Therapy Minutes: 30 minutes Interventions completed today: Therapeutic activities (2): Overground ambulation: To promote improved activity tolerance. -Ambulates ~230ft, 200ft, 100ft, and 150ft with RW and S, W/C pushed behind for safety. Functional strengthening: -Repeated sit to stands from 27 mat, 2x8 reps with min CGA of 1, arms across chest. Cues for pursed lip breathing on exhale when rising to stand. *spO2 >/-94% throughout Patient/Family Education: Topic: Plan to try 4 wheel rollater when one available Learner: patient Method: verbal Barriers to Learning: none noted Outcome: verbalized understanding Team Communication: Communication re: pt POC and DC planning with treatment team at interdisciplinary team rounds. With OT and covering PT re: pt status. Assessment/Plan Assessment Pt continues to demonstrate improving functional endurance performing increased activity within sessions. spO2 is maintained above 93% in both sessions. He continues to require intermittent cueing for breathing. Plan Activity tolerance training with Segmental breathing, Activity pacing, Pursed lip breathing Functional strength and endurance training Gait and stairs (try 4 wheel rollater) HEP Primary Therapist: Contact information: Pager: [phone] Elizabeth Licea PT 05/03/2019 13:54 * Caitie Tracy, PT - 05/03/2019 0846 EDT [facility] Rehabilitation Therapy [facility] Physical Therapy Encounter Note Date of Service: 05/03/2019 Subjective/Objective Subjective The stairs are th most strenuous thing I do Objective 3rd Session Time: Start time: 1400 Total Therapy Minutes: 30 minutes Interventions completed today: VS Pre: 109/68 HR 97 O2 93% on RA VS Post: 130/74 HR 111 Therapeutic activities: -All completed for improved endurance and activity tolerance Task Distance VS Assist Comments & Cues Amb w/ RW 230ft O2 91-92% HR 101 Supervision, therapist provided w/c follow Focus on pursed lip breathing, pacing, self monitoring dyspnea and need for rest breaks Stair and Amb 120ft & 4 (6) steps O2 89% returned to >90 within 45sec HR 104 Same B rails - step to step on stairs alternating lead LEs Stairs 4 (6) steps, 3x O2 89% returned to >92% after 70sec HR 116 Supervision Same Stairs and Amb 4 (6) steps & 90ft O2 91% HR 111 Supervision, therapist provided w/c follow Same Patient/Family Education: Topic: Rest breaks, endurance Learner: patient Method: verbal Barriers to Learning: none noted Outcome: verbalized understanding Team Communication: With primary PT re: POC Assessment/Plan Assessment Pt with significant use of accessory muscles/lower abdomen, increased with fatigue. Endurance is improving at this time noted by increased number of stairs and ambulation distance. Plan Continue per Primary PT Primary Therapist: Contact information: Pager: [phone] Caitie Tracy, HARPAL 05/03/2019 8:46 * Jody Whittington Keshav, [facility]-SECURITY ASSISTANT - 05/03/2019 0826 EDT Speech-Language Pathology Clinical Swallow Follow-Up SECURITY ASSISTANT Diagnosis: Dysphagia, pharyngeal phase: Medical Diagnosis: MSSA pneumonia and staph aureus septic shock, acute hypoxic respiratory failure and acute respiratory distress syndrome, s/p tracheostomy Date of Onset: 03/17/2019 Date of Referral: 04/23/2019 Start Time: 0900 Total Therapy minutes: 30 minute(s) swallow eval SUBJECTIVE: No issue (regardnig swallowing). OBJECTIVE: History: Patient is a??64-year-old male with no prior medical history although he had not seen a physician in some 10 years. ??He presented to [facility] on 03/17/2019 with approximately 2.5 weeks of fever, loss of appetite, weakness, fatigue and diarrhea. ??Work-up at [facility] revealed pneumonia/ARDS and renal failure, as well as atrial fibrillation with RVR. ??He was transferred to [facility] on 03/17/2019 for acute hypoxic respiratory failure with ARDS, volume overload, COPD and hemodynamic instability. ??He had evidence of sepsis secondary to a leftlower lobe pneumonia and MSSA bacteremia. ?? On admission he was placed on Levophed and propofol, transition to ketamine secondary to hypotension. ??He was on Zosyn and azithromycin, and changed to ceftaroline as well as given vancomycin. ??Antibiotics were narrowed to nafcillin with Zosyn on 03/21/2019. ??On 03/20/2019 he did have some acute de compensation with concern of pulmonary embolism, was given heparin but developed bright red blood per rectum and of his orogastric tube. ??He had an acute blood loss anemia was transfused 3 units packed red blood cells and 1 unit platelets, started on pressors. ??EGD is revealed diffuse stomach andduodenal ulcerations. ??CT scan of the abdomen pelvis showed the jejunum being edematous and thicken ed, there was marked gallbladder distention without radiopaque cholelithiasis or evidence of gallbladder wall thickening. ??There was a left adrenal nodule favoring adenoma. ??TIESHA showed no acute findings during his stay. ??The difficulty with weaning from mechanical ventilation and a tracheostomy tube was placed on 03/28/2019 and was additionally weaned from pressors. ??CT scan of the chest with multifocal pneumonia within both lungs, bilateral parapneumonic effusions, moderate aortic great vessel atherosclerotic calcifications and mucous in the right lower lobe airways. He again had an anemia and on 04/07/2019 received an additional unit of packed red blood cells. ??Hewas transitioned to the floor, but on 04/12/2019 developed hypoxia again, and was transferred back to the medical intensive care unit. ?? He again was stabilized and moved to the floors. Follow-up imaging showed slight progression of multifocal regions of airspace disease in the lungs and small bilateral pleural effusions. ??He had required continue supplemental oxygen up to 5 L last night with oxygen desaturation down to 86%. He subsequently was de cannulated and tolerated this well and nasogastric tube removed with patient takinga dysphagia level 3 diet well. He has been seen by all therapy modalities and actively participating, being independent with all mobility and self-cares prior to his hospitalization. Given functionallimitations, he was evaluated and determined to be an appropriate candidate for acute inpatient rehabilitation.? This patient's current status is similar to the pre-admission screening and is appropriate for inpatient rehabilitation admission. PMH: Past Medical History: Diagnosis Date ??? ARDS (adult respiratory distress syndrome) ([facility]) Current Diet: Dysphagia Diet Level: 3 (soft, easy to chew, single consistency) and Thin liquids Diet prior to admission: Regular texture with thin liquids at baseline Current Medications: Current Facility-Administered Medications Medication Dose Route Frequency Provider Last Rate Last Dose ??? acetaminophen (TYLENOL) tablet 650 mg 650 mg oral Q4H PRN Eladio Otero MD 650 mg at 04/29/192040 ??? albuterol (ACCUNEB) nebulizer solution 2.5 mg 2.5 mg nebulization Q4H PRN Eladio Otero MD ??? cholecalciferol (Vitamin D3) tablet 1,000 Units 1,000 Units oral QHS Shanon Reyes MD 1,000 Units at 05/02/192034 ??? collagenase (SANTYL) ointment topical DAILY Eladio Otero MD ??? DILTiazem (TIAZAC) ER capsule 120 mg 120 mg oral DAILY Shanon Reyes MD 120 mg at 05/03/1950 ??? diphenhydrAMINE (BENADRYL) capsule 25 mg 25 mg oral Q6H PRN Eladio Otero MD 25 mg at 04/29/192040 ??? enoxaparin (LOVENOX) injection 40 mg 40 mg subcutaneous DAILY Eladio Otero MD 40 mg at 05/03/19749 ??? ferrous sulfate EC tablet 324 mg 324 mg oral DAILY (BREAKFAST) Eladio Otero MD 324 mg at 05/03/19 0749 ??? guaiFENesin (MUCINEX) SR tablet 600 mg 600 mg oral BID Eladio Otero MD 600 mg at 05/03/1950 ??? melatonin tablet 5 mg 5 mg oral QHS Eladio Otero MD 5 mg at 05/02/192035 ??? miconazole (DESENEX) 2 % powder topical BID Shanon Reyes MD ??? mometasone-formoterol (DULERA) 100-5 mcg/actuation inhaler 2 Puff 2 Puff inhalation BID Shanon Reyes MD 2 Puff at 05/03/19749 ??? Multivitamins with Minerals tablet 1 Tab 1 Tab oral DAILY Eladio Otero MD 1 Tab at 749 ??? pantoprazole (PROTONIX) tablet 40 mg 40 mg oral QHS Shanon Reyes MD 40 mg at 05/02/192035 ??? senna (SENOKOT) tablet 2 Tab 2 Tab oral QHS Eladio Otero MD 2 Tab at 05/02/192034 ??? tiotropium (SPIRIVA) 18 mcg inhalation capsule 18 mcg 18 mcg inhalation DAILY Shanon Reyes MD 18 mcg at 05/03/19749 ??? triamcinolone (KENALOG) 0.1 % ointment topical BID Shanon Reyes MD ??? Wool Alcoh-Min Znv-Zmzfr-Sijft (EUCERIN) cream topical BID Shanon Reyes MD Clinical Swallow Follow-Up: 05/03/2019 Current Status: Cognitive Status: Patient currently presents with cognitive- linguistic functioning that is within functional limits. Patient was alert and cooperative during evaluation. Respiratory Status: Patient decannulated on 04/19/2019. Audible air escape at stoma site continues. The Eating Assessment Tool-10 (EAT-10) (Margaret et al., 2008) was utilized today, it is a validated instrument to quantify severity of dysphagia. EAT-10 score: 0 (>3 is considered abnormal) Positioning: Patient seated at edge of bed. Consistencies Tested: was assessed with thin liquid and solid consistencies (toast with butter and jelly). Methods of Delivery: Patient was able to self administer all items without SECURITY ASSISTANT assistance using a spoon, cup and straw. Oral Phase Findings: Oral phase of swallowing is within normal limits. Patient presents with adequate oral containment, functional chewing and appropriate bolus transport for all consistencies tested.Pharyngeal Phase: Pharyngeal phase is within normal limits with no overt s/s of penetration/aspiration with all trials presented. Esophageal Phase: Patient did not present with any overt s/s suggestive of esophageal phase swallow difficulty. Compensatory Strategies: The following compensatory swallow strategies were attempted during today's evaluation: Controlled rate and size of bolus. Patient/Family Education/Training: Topic: Swallow Function Patient/Family education and training was completed today including progress to date, plan of diet texture advancement and safe swallowing strategies delineated below. Learner: patient Method of Education: Verbal and Demonstration Barriers to Learning/Education: none Patient: was able to verbalize understanding of information and was able to return demonstration Family: was not present ASSESSMENT/CLINICAL IMPRESSIONS: is a 64 y.o. male admitted with pneumonia, s/p tracheostomy (03/28/2019) and decannulation(04/19/2019). A clinical swallow follow-up was completed today by Speech Language Pathology secondary to concerns for oropharyngeal dysphagia, and risk of laryngeal penetration/aspiration. Patient currently presents with oropharyngeal swallow function that is within functional limits. He demonstrates adequate oral containment, mastication, control and transport with all textures presented today. Swallow response is timely with adequate excursion and no overt s/s of penetration/aspiration were noted with any consistencies presented today. He continues with air escape at his stoma site, but this does not appear to impact the safety of his swallow. He demonstrates quantifiable gains in swallowfunction as measured by The Eating Assessment Tool-10. Patient is now at low risk of aspiration at this time. Anticipate patient will tolerate current diet texture upgrade to regular and maintain PO diet. Do not anticipate further need for SECURITY ASSISTANT services at this time. Patient to be discharged from SECURITY ASSISTANT services. Functional Communication Measures ([place] [employer], 2002). The Functional Communication Measures (FCM???s) are a series of 7 point rating scales, ranging fromleast functional (Level 1) to most functional (Level 7). They have been developed by [employer] to describe different aspects of patient???s functional communication and swallowing abilities over the course of SECURITY ASSISTANT intervention. Swallowing Level 7: Individual's ability to eat independently is not limited by swallow function. Swallowing is safe and efficient for all consistencies. Compensatory strategies are effectively used when needed. GOALS: Senior Care Goal: Swallowing Level 7: Individual's ability to eat independently is not limited by swallow function. Swallowing is safe and efficient for all consistencies. Compensatory strategies are effectively used when needed. Goal met - discontinue Short Term Goal: Swallow Function: Goal #1: Patient will demonstrate tolerance of thin liquids as evidenced by absence of overt s/s ofpenetration/aspiration on 10/10 trials with independent use of compensatory strategies. Goal met - discontinue Goal #2: Patient will demonstrate readiness for diet advancement to regular diet texture as evidenced by adequate oral clearance and absence of overt s/s of penetration/aspiration on 10/10 trials with independent use of compensatory strategies. Goal met - discontinue PLANS/RECOMMENDATIONS: No further SECURITY ASSISTANT indicated at this time. As a result of the dysphagia consultation, the following recommendations are provided to maximize swallow function and to minimize risk of dysphagia and its ramifications: ?? DIET: Upgrade diet to regular texture. Continue with thin liquids. Continue with Mighty shakes and magic cup for supplements. Continue higher calorie, nutrient dense foods given high nutrition needs. MEDICATIONS: Whole in applesauce with a liquid wash, or whole [id number]-time with a liquid wash - decided per patient preference ?? FEEDING/EATING STRATEGIES: Patient may eat independently. When eating, patient should be upright at 90 degrees as tolerated. Patient should take small, single sips of thin liquid. Patient may use a straw when drinking liquids. Patient should alternate liquids and solids during meal time. Jody Whittington [facility]-SECURITY ASSISTANT 05/03/2019 11:53 * Mar Tello, OTR - 05/03/2019 0706 EDT Rehabilitation Therapies Inpatient Rehabilitation [facility] Occupational Therapy Encounter Note Date of Service: 05/03/2019 Subjective/Objective SUBJECTIVE: I was feeling a little depressed last week. But now I can see that I'm making progress. OBJECTIVE: First Session Start time: 1030 Scheduled time: [id number] Total Therapy Minutes: 60 minute(s) Interventions included: Therapeutic Activities Therapeutic Exercise -Pt ambulated to dining room with CGA x1 with a focus on increasing endurance and functional mobility in kitchen envrionment ?? Pt maintained slow and consistent pace throughout. OT provided verbal cues to continue PLB. ?? Pt demonstrated ability to open fridge and retrieve a drink. Continued to walk to gym. ?? Pt rated RPE 6.5. The Box and Blocks test was performed today to assess hand coordination. This test requires the patient to move as many 1 inch cubes from one side of the box to the other in one minute. Side Blocks Norm RIGHT Box & Blocks - Right (#): 51 88+/-8.3 LEFT Box & Blocks - Left (#): 52 83.4 +/-7.9 The minimal clinical important difference (MCID) is 7 blocks for this test. 9 Hole Peg Test^: This test measures finger dexterity. 05/03/2019 Right (seconds) (P) 22 Left (seconds) (P) 29 Age/gender based healthy normative values ([place]ell[place]-Rahul, 2003) Male Range (seconds): mean ?? 2 standard deviations Range (seconds): mean ?? 2 standard deviations Age Right Left 21 - 25 13.11 - 19.71 14.65 - 20.35 26 - 30 13.10 - 20.66 13.40 - 22.28 31 - 35 12.14 - 22.94 12.59 - 24.35 36 - 40 13.47 - 21.95 14.02 - 23.22 41 - 45 12.78 - 24.30 13.65 - 23.33 46 - 50 13.41 - 23.29 14.19 - 24.95 51 - 55 14.16 - 23.64 13.64 - 26.04 56 - 60 11.80 - 30.00 14.86 - 28.42 61 - 65 13.87 - 27.87 15.64 - 27.56 66 - 70 14.65 - 27.81 14.87 - 29.71 >= 71+ 14.59 - 36.99 16.87 - 35.03 Female Range (seconds): mean ?? 2 standard deviations Range (seconds): mean ?? 2 standard deviations Age Right Left 21 - 25 12.40 - 19.68 14.11 - 20.31 26 - 30 12.08 - 19.72 13.43 - 20.51 31 - 35 13.29 - 20.09 13.21 - 21.73 36 - 40 12.84 - 20.64 14.00 - 22.32 41 - 45 12.26 - 20.82 13.52 - 21.76 46 - 50 13.34 - 21.38 13.36 - 22.56 51 - 55 13.62 - 21.14 14.34 - 23.50 56 - 60 13.08 - 22.64 12.96 - 26.00 61 - 65 14.63 - 23.35 14.81 - 25.85 66 - 70 13.60 - 26.20 13.50 - 29.38 >= 71+ 10.45 - 34.53 12.79 - 35.43 -Completed BUE exercises with intervals of standing to increase strength required during self care and light IADL ?? Standing basketball toss between OT and pt. Challenged pt to reach laterally to catch ball and throw ball from different positions. Tolerated 2 min of standing ball toss. ?? Shoulder flexion to mid range holding 3# ball with both hands. 2 sets of 10 reps with rest breakin between sets. -Completed standing [employer] game with a focus on increased endurance and improved fine motor coordination/control ?? Pt tolerated 3 min standing interval, then 2 min standing interval. Pt demonstrated ntervals of using BUE without external support from rw. ?? Manipulated game pieces with good accuracy and without dropping. -Ambulatory transfer into bathroom with rw and CGA x1 ?? Pt managed clothing with BUE and lowered to toilet using grab bars. ?? Pt completed toilet hygiene with independence. Vital signs: Vital signs were monitored and were stable throughout occupational therapy session. Patient/Family Education: Topic: Benefits of activity Energy conservation Home exercise program Learner: patient Method: verbal Barriers to Learning: none noted Outcome: verbalized understanding Team Communication: Communicated at team rounds meeting regarding pt's notable progress and d/c plan. Assessment/Plan ASSESSMENT: Pt tolerated therapy well today with notable improvement in overall affect and confidence. Increased standing tolerance and intervals of using BUE without rw indicate increased endurance and standing balance. This patient continues to present with fatigue, low endurance, and decreased BUE strenth, all of which impact current level of occupational performance. The patient remains appropriate for skilled OT services at an acute rehab level to regain independence and functional mobility for ADL and IADL. PLAN: ?? Continue to progress BUE strengthening ?? Light IADL as tolerated ?? Increase endurance and standing balance through self care routine Pager: [phone] ENEDINA ANNA, 05/03/2019, 14:23 * Sincere Jamil, Alicia Wilson RD - 05/02/2019 1401 EDT Nutrition Reassessment: ?? Medical Summary: Shirlene Bryan is a 64 y.o. male with no prior medical history although he had not seen a physician in some 10 years. ??He presented to [facility] on 03/17/2019 with approximately 2.5 weeks of fever, loss of appetite, weakness, fatigue and diarrhea. ??Work-up at [facility] revealed pneumonia/ARDS and renal failure, as well as atrial fibrillation with RVR. ??He was transferred to the [facility] on 03/17/2019 for acute hypoxic respiratory failure with ARDS, volume overload, COPD and hemodynamic instability. ??He had evidence of sepsis secondary to a left lowerlobe pneumonia and MSSA bacteremia. S/p trach, NGT w TF; Patient admitted on 04/23/2019 to acute rehab with debility. ?? Subjective: Patient states he is eating well and drinking Boost shakes 3 times daily. He would like to gain back some of the weight he lost from his usual weight of ~150 lbs. Current Nutrition Orders: Diet-Dysphagia 4 with thin liquids; Boost Plus 3 times daily ?? Nutrition Focused Physical Findings: Digestive Systems: Last BM today Skin: deep tissue injury coccyx ?? Anthropometrics: Height: 71.5 Weight today: 55.8 kg (123 lbs) Weight: 54 kg (119 lb) -- 04/23/19 UBW: admitted to [facility] 03/17/19 70.35kg Weight Change: -16.35 kg in 5 weeks (23% body weight Pertinent Medications: Current Facility-Administered Medications: acetaminophen (TYLENOL) tablet 650 mg oral Q4H PRN albuterol (ACCUNEB) nebulizer solution 2.5 mg nebulization Q4H PRN cholecalciferol (Vitamin D3) tablet 1,000 Units oral QHS collagenase (SANTYL) ointment topical DAILY DILTiazem (TIAZAC) ER capsule 120 mg oral DAILY diphenhydrAMINE (BENADRYL) capsule 25 mg oral Q6H PRN enoxaparin (LOVENOX) injection 40 mg subcutaneous DAILY ferrous sulfate EC tablet 324 mg oral DAILY (BREAKFAST) guaiFENesin (MUCINEX) SR tablet 600 mg oral BID melatonin tablet 5 mg oral QHS miconazole (DESENEX) 2 % powder topical BID mometasone-formoterol (DULERA) 100-5 mcg/actuation inhaler 2 Puff inhalation BID Multivitamins with Minerals tablet 1 Tab oral DAILY pantoprazole (PROTONIX) tablet 40 mg oral QHS senna (SENOKOT) tablet 2 Tab oral QHS tiotropium (SPIRIVA) 18 mcg inhalation capsule 18 mcg inhalation DAILY triamcinolone (KENALOG) 0.1 % ointment topical BID Wool Alcoh-Min Kuy-Ydboj-Jsfoo (EUCERIN) cream topical BID Pertinent Labs: No new ?? Estimated Nutrition Needs: 30-35 kcal/kg (using 55.8 kg) = 9142-0021 kcals/day 1.5 g/kg protein (using 55.8 kg) = 84 g protein/day ?? Estimated Nutrition Intake: 100 % meals ?? Assessment: Patient has lost 23% body weight since admission to [facility] 03/17/19, likely d/t loss of lean body mass, LOS, and metabolic stress. Patient presently ordering full sized meals and eating well. He is drinking supplements 3 times daily. Weight gain of 4 lbs noted since admission. Nutrition Risk Level: Moderate (2) Medical Nutrition Therapy Plan and Recommendations: -Continue Boost shakes 3 times daily -Weekly weight -Continue vitamins as ordered -RD following Alicia Post RD, CD Kalyani Lowery Dietitian Phone: [phone] * Eladio Otero MD - 05/02/2019 1349 EDT Physiatry Progress Note Admit Date: 04/23/2019 Hospital Day: LOS: 9 days Date of Service: 05/02/2019 Chief Complaint: Debility following respiratory failure Subjective: No shortness of breath. Remains with a air leak at his tracheostomy site. Denies any significant pain but feels like his rashes like a sunburn. No lightheadedness or GI complaints. Current Facility-Administered Medications: acetaminophen (TYLENOL) tablet 650 mg oral Q4H PRN albuterol (ACCUNEB) nebulizer solution 2.5 mg nebulization Q4H PRN cholecalciferol (Vitamin D3) tablet 1,000 Units oral QHS collagenase (SANTYL) ointment topical DAILY DILTiazem (TIAZAC) ER capsule 120 mg oral DAILY diphenhydrAMINE (BENADRYL) capsule 25 mg oral Q6H PRN enoxaparin (LOVENOX) injection 40 mg subcutaneous DAILY ferrous sulfate EC tablet 324 mg oral DAILY (BREAKFAST) guaiFENesin (MUCINEX) SR tablet 600 mg oral BID melatonin tablet 5 mg oral QHS miconazole (DESENEX) 2 % powder topical BID mometasone-formoterol (DULERA) 100-5 mcg/actuation inhaler 2 Puff inhalation BID Multivitamins with Minerals tablet 1 Tab oral DAILY pantoprazole (PROTONIX) tablet 40 mg oral QHS senna (SENOKOT) tablet 2 Tab oral QHS tiotropium (SPIRIVA) 18 mcg inhalation capsule 18 mcg inhalation DAILY triamcinolone (KENALOG) 0.1 % ointment topical BID Wool Alcoh-Min Cxs-Fqusz-Zoiow (EUCERIN) cream topical BID Objective/Physical Exam: VS: BP 113/59 (BP Cuff Location: Right arm, Patient Position: Semi fowlers) Pulse 69 Temp 36.2 ??C (97.2 ??F) (Tympanic) Resp 14 Ht 181.6 cm (71.5) Wt 55.8 kg (123 lb) SpO2 100% BMI 16.92 kg/m?? Pain: Patient Vitals for the past 8 hrs: Numeric Pain Level (Scale 1-10) 05/02/19 0948 0 Weight: Weight : 55.8 kg (123 lb) Glucose Readings (last 8 readings): No results for input(s): GLUCOSEFINGE in the last 72 hours. I&O: Intake/Output Summary (Last 24 hours) at 05/02/2019 1349 Last data filed at 05/02/2019 0118 Gross per 24 hour Intake -- Output 500 ml Net -500 ml Exam: Gen: Alert, pleasant, no distress HEENT: Head: Normocephalic, no lesions, without obvious abnormality. Neck: Tracheostomy site is open with air leak. Wound edges are clean. Sacral ulceration, unstageable Skin: Sacral ulcer. (Image in scanned images from 04/30/2019), macular rash extending throughout, with some bright erythema at his elbows and knees (knee image below) cardiac: Cor RRR Pulmonary: Diffuse rhonchorous sounds but good air movement otherwise throughout. Abdomen: Bowel sounds present throughout, soft, nontender Musculoskeletal: no joint tenderness, deformity or swelling, no muscular tenderness noted, full range of motion without pain Neuro: Alert, oriented, thought content appropriate Affect: appropriate Language: speech fluent and spontaneous, intact naming and repetition Motor: Strength 4+/5 and symmetric without focal weakness Tone normal Reflexes: 1+ Sensation: No focal sensory loss Cerebellar: no tremors Labs: I have personally reviewed CBC: Lab Results Component Value Date WBC 10.01 04/22/2019 RBC 2.95 (L) 04/22/2019 HGB 8.3 (L) 04/22/2019 HCT 26.3 (L) 04/22/2019 MCV 89 04/22/2019 MCH 28.1 04/22/2019 MCHC 31.6 (L) 04/22/2019 PLT 293 04/22/2019 NEUTROABS 8.90 (H) 03/20/2019 BMP: Lab Results Component Value Date NA 135 (L) 04/22/2019 K 4.4 04/22/2019 CL 105 04/22/2019 CO2 23 04/22/2019 BUN 66 (H) 03/24/2019 CREATININE 0.75 04/22/2019 GLUCOSEFINGE 126 (H) 04/07/2019 CALCIUM 8.8 04/22/2019 MG 1.8 04/22/2019 PHOS 4.7 (H) 04/22/2019 LABALBU 2.2 (L) 03/17/2019 Assessment/Problems: (update problem list daily as appropriate) Patient Active Problem List Diagnosis Date Noted ??? Upper gastrointestinal bleed 04/18/2019 Priority: Medium ??? Septic shock ([facility]) 03/19/2019 Priority: Medium ??? (H)ARDS (adult respiratory distress syndrome) ([facility]) 03/19/2019 Priority: Medium ??? (H)SIRISHA (acute kidney injury) ([facility]) 03/19/2019 Priority: Medium ??? Anemia 03/19/2019 Priority: Medium ??? Thrombocytopenia ([facility]) 03/19/2019 Priority: Medium ??? Bacteremia 03/19/2019 Priority: Medium ??? Fever 03/19/2019 Priority: Medium ??? Encephalopathy 03/19/2019 Priority: Medium ??? (H)Atrial fibrillation with RVR ([facility]) 03/17/2019 Priority: Medium ??? (H)Acute respiratory failure with hypoxia ([facility]) 03/17/2019 Priority: Medium Plan: 1. Debility following prolonged hospitalization, multiple medical comorbidities, including hypoxic respiratory failure: Residual impaired mobility, self-cares, swallowing function. Full PT, OT, SECURITY ASSISTANT assessments and therapies to address mobility, self care, swallowing function. 24 hour rehab nursingfor self care deficits 2. Nutrition: Now on dysphagia level 4 diet with thin liquids. Nutrition consult 3. Pneumonia/MSSA bacteremia with acute hypoxic respiratory failure/ARDS: Clinically improving, decannulated and maintaining oxygen saturations but may need supplemental oxygen with increasing activity. Internal medicine help appreciated Continue duo nebs twice daily Maintain guaifenesin 600 mg twice daily Occlusive dressing to the open tracheostomy site. 4. Duodenal ulcer/upper GI bleed: Continue Protonix 40 mg daily. 5. Acute kidney injury: Creatinine has normalized we will monitor overall fluid intake, avoid nephrotoxic agents 6. Anemia: Multifactorial including acute care illness, GI bleed. Counts have been relatively stable but continue to monitor intermittently 7. Sacral ulcer: Unstageable. Followed by wound care nursing. Continue topical treatment and pressure relief. 8. Atrial fibrillation: Back in sinus rhythm. Dermatology believes metoprolol may be the offending agent for the rash, and he has been changed to diltiazem for rate control. Currently not on anticoagulation given recent GI bleed and low CHADS score as documented by medicine. 9. Rash: Appears to be a drug rash, possibly related to metoprolol. Treating symptomatically currently with triamcinolone topically and Benadryl. This has been reviewed with dermatology ?? DVT Prophylaxis: Pharmacologic Prophylaxis: Enoxaparin (Lovenox) 40 mg SQ daily Eladio Otero MD 05/02/2019 13:49 * Armandojeferson Sheela, OT - 05/02/2019 0905 EDT Rehabilitation Therapies Inpatient Rehabilitation [facility] Occupational Therapy Encounter Note Date of Service: 05/02/2019 Subjective/Objective SUBJECTIVE: I think some walking would be good for me. re: pt's response when asked if he would like to walk to the gym. OBJECTIVE: First Session Start time: 929 Scheduled time: 3479-1929 Total Therapy Minutes: 60 minute(s) Interventions included: Self-Care/Home Management (2) Therapeutic Activities (1) Therapeutic Exercise (1) -Completed self care routine with a focus on increasing endurance and independence with self care ?? Pt completed entire grooming routine in standing. Intervals of completing grooming tasks withoutexternal support from rw. Pt rated this as 5-6 PRE. O2 post grooming routine was 86%. Pt took 2 minrest break with PLB to return to 94% O2. ?? Pt ambulated to closet with CGA x1 to retrieve clothing. Opened drawers and cabinet without difficulty. ?? Pt completed UB dressing while sitting in w/c without difficulty. ?? Pt threaded pants onto BLE while sitting and stood to don pants to waist level. -Pt ambulated to therapy gym with CGA x1 and w/c and no breaks. Pt maintained consistent slow pace throughout. O2 91% with 1 minute rest break and deep breathing to increase to 95%. -Ball toss to focus on b hand coordination and strength ?? Started with light ball. Toss back and forth between pt and OT alternating hands. Pt demonstrated strong hand grasp and caught ball each time. Graded up to 1# ball and challenged pt to reach laterally to catch ball. ?? One hand ball toss between pt and OT in standing. Pt completed majority of task without using rwfor support. Tolerated ~1.5 min standing. -Completed [employer] game in standing to focus on increased endurance and fine motor control ?? Challenged pt with in-hand manipulation of several game pieces at once. Pt successful with managing each game piece without dropping them. ?? Pt tolerated 2 minute standing intervals x2. -Ambulatory toilet transfer with CGA x1. Pt managed clothing with BUE and utilized grab bars to lower to toilet. OT session time ended, OT instructed pt to use call grayson when finished. Second session Start Time: 1300 Total Minutes Treatment 2: 30 Interventions included: Self-Care/Home Management (1) *pt educ on energy conservation and fall prevention techniques during kitchen mobility. -pt side stepping using counter for support and self graded challenge by using only 1 hand on counter only. -able to reach for cup in overhead cabinet and transport item down counter to retrieve drink from fridge. UE weakness requiring 3 attempts to open fridge. -able to hold cup and bottle in R hand while maneuver RW to access other side of kitchen. educ on use of tray if DC home with walker. -tolerated standing x2 intervals without rest break. Therapeutic Exercise (1) -focus was on endurance retraining while incorporating pursed lip breathing techniques. -repetitive UE movements x 3' intervals with increasing challenge by reaching overhead and outside COB. Vital signs: Vital signs have been stable with interventions and were not monitored. See above. Patient/Family Education: Topic: Energy conservation Safety awareness Learner: patient Method: verbal Barriers to Learning: none noted Outcome: verbalized understanding Team Communication: This note serves as primary form of team communication this date. Assessment/Plan ASSESSMENT: Pt tolerated therapy well today with good motivation to complete selected activities. Pt has demonstrated improvements with standing balance as evidenced by taking BUE off of rw during various tasks. Pt also continues to demonstrate increased endurance as seen during functional mobilityfrom room to therapy gym and standing for increased increments of time. This patient continues to present with decreased BUE strenth, standing balance, and low endurance all of which impact current level of occupational performance. The patient remains appropriate for skilled OT services at an acute rehab level to regain independence and functional mobility for ADL and IADL. PLAN: ?? Continuation of BUE exercise with added challenged ?? Self care tasks with a focus on increased endurance ?? Light IADL as tolerated Pager: [phone] ENEDINA ANNA, 05/02/2019, 9:05 * Elizabeth Licea, PT - 05/02/2019 0837 EDT [facility] Rehabilitation Therapy Inpatient Rehabilitation Center [facility] Physical Therapy Encounter Note Date of Service: 05/02/2019 Subjective/Objective Subjective Pt endorses feeling stronger. Objective Start time: 1100 Total Therapy Minutes: 30 minute(s) Interventions completed today: Vital signs: spO2 >/=90% (RA) throughout Therapeutic activities (2): Overground ambulation: ~190ft, 170ft, and 180ft with RW and S, W/C pulled behind for safety. Focus on improved activity tolerance with pursed lip breathing and taking rest breaks when at 6.5/10 on Eunice dyspnea scale. Pt walks with continuous movement of RW throughout. 2-4 min seated rest breaks between bouts. Posterior LOB at end of session when returning to sitting EOB requiring min A. 2nd Session Time: Start time: 1330 Total Therapy Minutes: 30 minutes Interventions completed today: Vital signs: spO2 > 91% (RA) throughout Therapeutic activities (1): Overground ambulation: ~70ft with RW and supervision to walk to stairs and to increase activity tolerance. Gait Training (1): Stair training: Up/down 4- 6.5 stairs x2 consectively (3x) with B rails and min CGA of 1 progressing to close S. Has step to gait pattern. Intermittent cues for breathing. 2-3 min seated rest breaksbetween bouts. Overground ambulation: With goal of progressing away from RW reliance. -~40ft x2 with no device and min A of 1, rail on one side for safety but pt does not use 3rd Session Time: Start time: 1430 Total Therapy Minutes: 30 minutes Interventions completed today: Therapeutic activities (2): NuStep: -4:00, 4:00 and 5:45 with ~2-3 min rest break between bouts. Performs to fatigue (6.5/10 on Eunice Dyspnea scale) Seat/arms: 11 Workload: 3 Patient/Family Education: Topic: Progress thus far Learner: patient Method: verbal Barriers to Learning: none noted Outcome: verbalized understanding Team Communication: With RN re: pt status. Updated mobility status on whiteboard and sticky note. Assessment/Plan Assessment Pt continues to demonstrate improved activity tolerance. He is ambulating increased distances and performing more stairs consecutively before requiring seated rest breaks. Pt's spO2 is consistently above 90% on room air today. Pt able to trial walking without AD today but requires increased assist and seated rest after shorter distances as anticipated. Plan Activity tolerance training with Segmental breathing, Activity pacing, Pursed lip breathing Functional strength and endurance training Gait and stairs HEP Primary Therapist: Contact information: Pager: [phone] Elizabeth Licea PT 05/02/2019 8:40 * Siomara Fung OT - 05/01/2019 6502 EDT [facility] Rehabilitation Therapy Inpatient Rehabilitation [facility] Occupational Therapy Encounter Note Date of Service: 05/01/2019 Subjective/Objective Subjective It is the shortness of breath mostly. when asked why he needed to rest during BITs activity My left arm is a lot weaker, has been since childhood. Objective Start time: 1300 Total Therapy Minutes: 30 minute(s) Interventions included: Therapeutic Activities: BITs: Focus on bilateral UE strengthening and standing tolerance: *Used W/C for mobility to/from quiet treatment room for energy conservation *Set-up board to promote overhead reaching in upper quadrants *User paced, target size 8, 1 minute trials SEATED: Trial 1: central field: 72 hits, reaction time .82 seconds, accuracy 94.7 %, decreased accuracy hitting targets with L vs R occasionally missing target (longstanding per pt) Trial 2: peripheral field: 53 hits Trial 3: peripheral field: RUE only incorporating trunk rotation and reach across mid-line: 52 hits Trial 4: LUE only: 50 hits, reaction time and accuracy grossly symmetrical with R *Pt required ~ 2 minute rest break between each trial due to SOB STANDING: *Trial 5: 58 hits, reaction time 1 second, accuracy 96.7%. Min contact assist (guarding) for balance, no LOB, needed fairly urgent seated rest break after Vital signs: O2 sat was monitored throughout session and was >92% Reinforced pursed lip breathing Patient/Family Education: Not applicable Team Communication: With primary OT regarding coverage Assessment/Plan Assessment Pt fatigued quickly with BITs activity but did well with excellent reaction time and ability to complete without UE support in stance. Pt was limited more by cardiorespiratory compromise vs muscle fatigue with sustained UE use. Plan Continue per plan primary OT, Zaida progressing standing and duration (90 seconds) Pager: [phone] SIOMARA FUNG OT, 05/01/2019, 15:51 * Eladio Otero MD - 05/01/2019 1341 EDT Images from the original note were not included. Physiatry Progress Note Admit Date: 04/23/2019 Hospital Day: LOS: 8 days Date of Service: 05/01/2019 Chief Complaint: Debility following respiratory failure Subjective: No shortness of breath. Remains with a air leak at his tracheostomy site. He has appreciated more confluence of his rash on his elbows and knees. No lightheadedness or GI complaints. Current Facility-Administered Medications: acetaminophen (TYLENOL) tablet 650 mg oral Q4H PRN albuterol (ACCUNEB) nebulizer solution 2.5 mg nebulization Q4H PRN cholecalciferol (Vitamin D3) tablet 1,000 Units oral QHS collagenase (SANTYL) ointment topical DAILY DILTiazem (TIAZAC) ER capsule 120 mg oral DAILY diphenhydrAMINE (BENADRYL) capsule 25 mg oral Q6H PRN enoxaparin (LOVENOX) injection 40 mg subcutaneous DAILY ferrous sulfate EC tablet 324 mg oral DAILY (BREAKFAST) guaiFENesin (MUCINEX) SR tablet 600 mg oral BID melatonin tablet 5 mg oral QHS mometasone-formoterol (DULERA) 100-5 mcg/actuation inhaler 2 Puff inhalation BID Multivitamins with Minerals tablet 1 Tab oral DAILY pantoprazole (PROTONIX) tablet 40 mg oral QHS senna (SENOKOT) tablet 2 Tab oral QHS tiotropium (SPIRIVA) 18 mcg inhalation capsule 18 mcg inhalation DAILY triamcinolone (KENALOG) 0.1 % ointment topical BID Wool Alcoh-Min Mgh-Isjjn-Vkewk (EUCERIN) cream topical BID Objective/Physical Exam: VS: BP 120/65 (BP Cuff Location: Right arm, Patient Position: Semi fowlers) Pulse 75 Temp 37.9 ??C (100.2 ??F) (Tympanic) Resp 14 Ht 181.6 cm (71.5) Wt 54 kg (119 lb) SpO2 96% BMI 16.37 kg/m?? Pain: No data found. Weight: Weight : 54 kg (119 lb) Glucose Readings (last 8 readings): No results for input(s): GLUCOSEFINGE in the last 72 hours. I&O: Intake/Output Summary (Last 24 hours) at 05/01/2019 1341 Last data filed at 05/01/2019 0601 Gross per 24 hour Intake -- Output 1625 ml Net -1625 ml Exam: Gen: Alert, pleasant, no distress HEENT: Head: Normocephalic, no lesions, without obvious abnormality. Neck: Tracheostomy site is open with air leak. Wound edges are clean. Sacral ulceration, unstageable Skin: Sacral ulcer. (Image in scanned images), macular rash extending throughout, with some bright erythema at his elbows and knees (knee image below) cardiac: Cor RRR Pulmonary: Diffuse rhonchorous sounds but good air movement otherwise throughout. Abdomen: Bowel sounds present throughout, soft, nontender Musculoskeletal: no joint tenderness, deformity or swelling, no muscular tenderness noted, full range of motion without pain Neuro: Alert, oriented, thought content appropriate Affect: appropriate Language: speech fluent and spontaneous, intact naming and repetition Motor: Strength 4+/5 and symmetric without focal weakness Tone normal Reflexes: 1+ Sensation: No focal sensory loss Cerebellar: no tremors Labs: I have personally reviewed CBC: Lab Results Component Value Date WBC 10.01 04/22/2019 RBC 2.95 (L) 04/22/2019 HGB 8.3 (L) 04/22/2019 HCT 26.3 (L) 04/22/2019 MCV 89 04/22/2019 MCH 28.1 04/22/2019 MCHC 31.6 (L) 04/22/2019 PLT 293 04/22/2019 NEUTROABS 8.90 (H) 03/20/2019 BMP: Lab Results Component Value Date NA 135 (L) 04/22/2019 K 4.4 04/22/2019 CL 105 04/22/2019 CO2 23 04/22/2019 BUN 66 (H) 03/24/2019 CREATININE 0.75 04/22/2019 GLUCOSEFINGE 126 (H) 04/07/2019 CALCIUM 8.8 04/22/2019 MG 1.8 04/22/2019 PHOS 4.7 (H) 04/22/2019 LABALBU 2.2 (L) 03/17/2019 Assessment/Problems: (update problem list daily as appropriate) Patient Active Problem List Diagnosis Date Noted ??? Upper gastrointestinal bleed 04/18/2019 Priority: Medium ??? Septic shock ([facility]) 03/19/2019 Priority: Medium ??? (H)ARDS (adult respiratory distress syndrome) ([facility]) 03/19/2019 Priority: Medium ??? (H)SIRSIHA (acute kidney injury) ([facility]) 03/19/2019 Priority: Medium ??? Anemia 03/19/2019 Priority: Medium ??? Thrombocytopenia ([facility]) 03/19/2019 Priority: Medium ??? Bacteremia 03/19/2019 Priority: Medium ??? Fever 03/19/2019 Priority: Medium ??? Encephalopathy 03/19/2019 Priority: Medium ??? (H)Atrial fibrillation with RVR ([facility]) 03/17/2019 Priority: Medium ??? (H)Acute respiratory failure with hypoxia ([facility]) 03/17/2019 Priority: Medium Plan: 1. Debility following prolonged hospitalization, multiple medical comorbidities, including hypoxic respiratory failure: Residual impaired mobility, self-cares, swallowing function. Full PT, OT, SECURITY ASSISTANT assessments and therapies to address mobility, self care, swallowing function. 24 hour rehab nursing for self care deficits 2. Nutrition: Now on dysphagia level 4 diet with thin liquids. Nutrition consult 3. Pneumonia/MSSA bacteremia with acute hypoxic respiratory failure/ARDS: Clinically improving, decannulated and maintaining oxygen saturations but may need supplemental oxygen with increasing activity. Internal medicine help appreciated Continue duo nebs twice daily Maintain guaifenesin 600 mg twice daily Occlusive dressing to the open tracheostomy site. 4. Duodenal ulcer/upper GI bleed: Continue Protonix 40 mg daily. 5. Acute kidney injury: Creatinine has normalized we will monitor overall fluid intake, avoid nephrotoxic agents 6. Anemia: Multifactorial including acute care illness, GI bleed. Counts have been relatively stable but continue to monitor intermittently 7. Sacral ulcer: Unstageable. Followed by wound care nursing. Continue topical treatment and pressure relief. 8. Atrial fibrillation: Back in sinus rhythm. Dermatology believes metoprolol may be the offending agent for the rash, and he has been changed to diltiazem for rate control. Currently not on anticoagulation given recent GI bleed and low CHADS score as documented by medicine. 9. Rash: Appears to be a drug rash, possibly related to metoprolol. Treating symptomatically currently with triamcinolone topically and Benadryl. ?? DVT Prophylaxis: Pharmacologic Prophylaxis: Enoxaparin (Lovenox) 40 mg SQ daily Eladio Otero MD 05/01/2019 13:41 * Elizabeth Licea, PT - 05/01/2019 0845 EDT [facility] Rehabilitation Therapy Inpatient Rehabilitation [facility] Physical Therapy Encounter Note Date of Service: 05/01/2019 Subjective/Objective Subjective It's getting better! Pt also reports he has been doing his HEP in bed. Objective Start time: 1000 Total Therapy Minutes: 30 minute(s) Interventions completed today: Therapeutic activities (1): Overground ambulation: To promote improved activity tolerance. 40ft and 70ft with RW and supervision, W/C pulled behind for rest breaks. SpO2 >92% throughout. Gait Speed^ (meters/second) 0.19 meters/sec. This test assesses walking speed over an established distance. Age/gender normative values (Gila, 2011) Age Gender 95% CI meters/second 20-29 Male 1.21-1.47 20-29 Female 1.08-1.49 30-39 Male 1.31-1.53 30-39 Female 1.25-1.41 40-49 Male 1.27-1.47 40-49 Female 1.22-1.42 50-59 Male 1.12-1.49 50-59 Female 1.10-1.55 60-69 Male 1.03-1.59 60-69 Female 0.97-1.45 70-79 Male 0.95-1.41 70-79 Female 0.83-1.50 80-89 Male 0.61-1.22 80-89 Female 0.56-1.17 Patients (age 65 and older) who are hospitalized with a gait speed < 0.4 meters/second had significantly decreased odds of discharge to home compared to patients with a gait speed > 0.6 meters/second. (Santa, 2012) The minimal clinically important difference (MCID) for community-dwelling elderly is 0.05 to 0.13 meters/second. (Perradha, 2006) Gait Training (1): Stair training: Up/down 4- 6.5 stairs with B rails and min CGA of 1, step to gait pattern. Performs x3 with 3-4 min seated rest break between each trial. Feedback for paced breathing with report of slight improvement. Eunice dyspnea rating 5/10. spO2 >91% (RA) except x1 89% briefly and improved with seated rest. 2nd Session Time: Start time: 1330 Total Therapy Minutes: 30 minutes Interventions completed today: Therapeutic activities (2): NuStep: -4:28, 4:21 and 4:02 with ~2-3 min rest break between bouts. Performs to fatigue (6.5/10 on Eunice Dyspnea scale) -spO2 >90% (RA) throughout Seat/arms: 11 Workload: 3 3rd Session Time: Start time: 1430 Total Therapy Minutes: 30 minutes Interventions completed today: Therapeutic activities (1): Overground ambulation: To promote improved activity tolerance. 188ft, 113ft, and 75ft with RW and supervision, W/C pulled behind for rest breaks. SpO2 >94% throughout except x2 (second bout drops to 84% questionable reading, third bout goes to 86% with good reading, rises up to 94% with seated rest). Has slight lateral LOB x1 self corrected. Therapeutic exercise (1): Supine HEP: x10 B -Hip/knee flexion -Hip IR/ER -Quad sets -Bridging -Hip abd/add -Sidelying hip extension -SLR Patient/Family Education: Topic: Improvements thus far Learner: patient Method: verbal Barriers to Learning: none noted Outcome: verbalized understanding Team Communication: With OT re: pt status. Assessment/Plan Assessment Pt ambulates increased distances today. He continues to have O2 desaturation with activity but it rises quickly with rest breaks. Pt is able to safely trial stair negotiation today and will require further activity tolerance training in order to perform at home. Pt's gait speed is significantly improved from last assessment, but remains well below age and gender matched norms. Plan Activity tolerance training with Segmental breathing, Activity pacing, Pursed lip breathing Functional strength and endurance training Gait and stairs HEP Primary Therapist: Contact information: Pager: [phone] Elizabeth Licea PT 05/01/2019 10:49 * Sheela Anthony, OT - 05/01/2019 0718 EDT Rehabilitation Therapies Inpatient Rehabilitation [facility] Occupational Therapy Encounter Note Date of Service: 05/01/2019 Subjective/Objective SUBJECTIVE: I just want to focus on getting well. OBJECTIVE: First Session Start time: 829 Total Therapy Minutes: 60 minute(s) Interventions included: Self-Care/Home Management (2) Therapeutic Activities (2) -Completed self care routine with a focus on increasing endurance and independence with ADL ?? Pt ambulated from EOB to sink to complete grooming routine with intervals of standing. ?? Pt stood at sink to brush teeth. Initiated rest break after approx 1.5 min. ?? Pt stood to wash face and comb hair with intervals of no external support from rw. ?? Pt reported grooming routine as RPE 6 ?? Pt ambulated to closet with CGA x1 to retrieve clothing from closet. ?? Donned shirt with independence. Stood to don underwear, then stood second time to don pants. OT educated pt that donning underwear and pants together and standing once to pull to waist level is one way to conserve energy. -Completed BUE exercises to increase strength required during self care tasks ?? Ball toss back and forth with basketball. Pt tolerated for 2 min without SOB or fatigue. Challenged pt to reach laterally to catch ball, and eventually had pt stand for ball toss. Pt tolerated for1 min in standing. ?? Instructed pt to hold ball with both hands at 90 degrees shoulder flexion to complete pronation/supination. 2 sets of 10 reps. -Completed toileting tasks with a focus on safe functional mobility and transfers ?? Ambulatory transfer to bathroom with CGA x1. Pt used BUE to manage clothing. ?? Completed toilet hygiene with independence. Utilized grab bars to push to standing. Vital signs: Vital signs were monitored and were stable throughout occupational therapy session. O2 level 86% post BUE exercise. Increased to 96% within one minute while promoting PLB. Pt maintained 95% O2 duringADL routine. Patient/Family Education: Topic: Energy conservation Safety awareness Learner: patient Method: verbal Barriers to Learning: none noted Outcome: verbalized understanding Team Communication: This note serves as primary form of team communication this date. Assessment/Plan ASSESSMENT: Pt tolerated therapy well today with increased self-efficacy and overall improved affect from previous OT session. Less rapid/shallow breathing noted during self care routine, and pt reported decreased RPE during ADL from yesterday, which indicates that endurance is improving. This pt continues to present with decreased BUE strength, fatigue, decreased standing balance, and low endurance, all of which impact current level of occupational performance. The pt remains appropriate for skilled OT services at an acute rehab level to regain independence and functional mobility for ADL and IADL. PLAN: ?? BUE strengthening in standing and other added challenges ?? Continue to promote increased endurance through ADL routine ?? Light IADL to tolerance Pager: [phone] ENEDINA ANNA, 05/01/2019, 7:18 * Eladio Otero MD - 04/30/2019 7387 EDT Images from the original note were not included. Physiatry Progress Note Admit Date: 04/23/2019 Hospital Day: LOS: 7 days Date of Service: 04/30/2019 Chief Complaint: Debility following respiratory failure Subjective: No shortness of breath. Remains with a air leak at his tracheostomy site. He has appreciated more confluence of his rash on his elbows and knees. No lightheadedness or GI complaints. Current Facility-Administered Medications: acetaminophen (TYLENOL) tablet 650 mg oral Q4H PRN albuterol (ACCUNEB) nebulizer solution 2.5 mg nebulization Q4H PRN cholecalciferol (Vitamin D3) tablet 1,000 Units oral QHS collagenase (SANTYL) ointment topical DAILY DILTiazem (TIAZAC) ER capsule 120 mg oral DAILY diphenhydrAMINE (BENADRYL) capsule 25 mg oral Q6H PRN enoxaparin (LOVENOX) injection 40 mg subcutaneous DAILY ferrous sulfate EC tablet 324 mg oral DAILY (BREAKFAST) guaiFENesin (MUCINEX) SR tablet 600 mg oral BID melatonin tablet 5 mg oral QHS miconazole (ALOE VESTA) 2 % ointment ointment topical BID miconazole (DESENEX) 2 % powder topical BID mometasone-formoterol (DULERA) 100-5 mcg/actuation inhaler 2 Puff inhalation BID Multivitamins with Minerals tablet 1 Tab oral DAILY pantoprazole (PROTONIX) tablet 40 mg oral QHS senna (SENOKOT) tablet 2 Tab oral QHS tiotropium (SPIRIVA) 18 mcg inhalation capsule 18 mcg inhalation DAILY triamcinolone (KENALOG) 0.1 % ointment topical BID Wool Alcoh-Min Kmr-Feljo-Apqyv (EUCERIN) cream topical BID Objective/Physical Exam: VS: BP 114/65 (BP Cuff Location: Right arm, Patient Position: Semi fowlers) Pulse 67 Temp 36.1 ??C (97 ??F) (Tympanic) Resp 14 Ht 181.6 cm (71.5) Wt 54 kg (119 lb) SpO2 96% BMI 16.37 kg/m?? Pain: Patient Vitals for the past 8 hrs: Numeric Pain Level (Scale 1-10) 04/30/19 0740 0 Weight: Weight : 54 kg (119 lb) Glucose Readings (last 8 readings): No results for input(s): GLUCOSEFINGE in the last 72 hours. I&O: No intake or output data in the 24 hours ending 04/30/19 1451 Exam: Gen: Alert, pleasant, no distress HEENT: Head: Normocephalic, no lesions, without obvious abnormality. Neck: Tracheostomy site is open with air leak. Wound edges are clean. Sacral ulceration, unstageable Skin: Sacral ulcer. (Image in scanned images), macular rash extending throughout, with some bright erythema at his elbows and knees (knee image below) cardiac: Cor RRR Pulmonary: Diffuse rhonchorous sounds but good air movement otherwise throughout. Abdomen: Bowel sounds present throughout, soft, nontender Musculoskeletal: no joint tenderness, deformity or swelling, no muscular tenderness noted, full range of motion without pain Neuro: Alert, oriented, thought content appropriate Affect: appropriate Language: speech fluent and spontaneous, intact naming and repetition Motor: Strength 4+/5 and symmetric without focal weakness Tone normal Reflexes: 1+ Sensation: No focal sensory loss Cerebellar: no tremors Labs: I have personally reviewed CBC: Lab Results Component Value Date WBC 10.01 04/22/2019 RBC 2.95 (L) 04/22/2019 HGB 8.3 (L) 04/22/2019 HCT 26.3 (L) 04/22/2019 MCV 89 04/22/2019 MCH 28.1 04/22/2019 MCHC 31.6 (L) 04/22/2019 PLT 293 04/22/2019 NEUTROABS 8.90 (H) 03/20/2019 BMP: Lab Results Component Value Date NA 135 (L) 04/22/2019 K 4.4 04/22/2019 CL 105 04/22/2019 CO2 23 04/22/2019 BUN 66 (H) 03/24/2019 CREATININE 0.75 04/22/2019 GLUCOSEFINGE 126 (H) 04/07/2019 CALCIUM 8.8 04/22/2019 MG 1.8 04/22/2019 PHOS 4.7 (H) 04/22/2019 LABALBU 2.2 (L) 03/17/2019 Assessment/Problems: (update problem list daily as appropriate) Patient Active Problem List Diagnosis Date Noted ??? Upper gastrointestinal bleed 04/18/2019 Priority: Medium ??? Septic shock ([facility]) 03/19/2019 Priority: Medium ??? (H)ARDS (adult respiratory distress syndrome) ([facility]) 03/19/2019 Priority: Medium ??? (H)SIRISHA (acute kidney injury) ([facility]) 03/19/2019 Priority: Medium ??? Anemia 03/19/2019 Priority: Medium ??? Thrombocytopenia ([facility]) 03/19/2019 Priority: Medium ??? Bacteremia 03/19/2019 Priority: Medium ??? Fever 03/19/2019 Priority: Medium ??? Encephalopathy 03/19/2019 Priority: Medium ??? (H)Atrial fibrillation with RVR ([facility]) 03/17/2019 Priority: Medium ??? (H)Acute respiratory failure with hypoxia ([facility]) 03/17/2019 Priority: Medium Plan: 1. Debility following prolonged hospitalization, multiple medical comorbidities, including hypoxic respiratory failure: Residual impaired mobility, self-cares, swallowing function. Full PT, OT, SECURITY ASSISTANT assessments and therapies to address mobility, self care, swallowing function. 24 hour rehab nursing for self care deficits 2. Nutrition: Now on dysphagia level 4 diet. Nutrition consult 3. Pneumonia/MSSA bacteremia with acute hypoxic respiratory failure/ARDS: Clinically improving, decannulated and maintaining oxygen saturations but may need supplemental oxygen with increasing activity. Internal medicine help appreciated Continue duo nebs twice daily Maintain guaifenesin 600 mg twice daily Occlusive dressing to the open tracheostomy site. 4. Duodenal ulcer/upper GI bleed: Continue Protonix 40 mg daily. 5. Acute kidney injury: Creatinine has normalized we will monitor overall fluid intake, avoid nephrotoxic agents 6. Anemia: Multifactorial including acute care illness, GI bleed. Counts have been relatively stable but continue to monitor intermittently 7. Sacral ulcer: Unstageable. Followed by wound care nursing. Continue topical treatment and pressure relief. 8. Atrial fibrillation: Back in sinus rhythm. Dermatology believes metoprolol may be the offending agent for the rash, and he has been changed to diltiazem for rate control. Currently not on anticoagulation given recent GI bleed and low CHADS score as documented by medicine. 9. Rash: Appears to be a drug rash, possibly related to metoprolol. Treating symptomatically currently with triamcinolone topically and Benadryl. ?? DVT Prophylaxis: Pharmacologic Prophylaxis: Enoxaparin (Lovenox) 40 mg SQ daily Eladio Otero MD 04/30/2019 14:51 * Shanon Reyes MD - 04/30/2019 1320 EDT MEDICINE FOLLOW-UP Date of service: 04/30/2019 PCP: Provider None CHIEF COMPLAINT: MSSA pneumonia and staph aureus septic shock, acute hypoxic respiratory failure and acute respiratory distress syndrome, sp tracheostomy, upper gastrointestinal hemorrhage from multifocal ulcer, severe protein calorie malnutrition, deep tissue injury SUBJECTIVE: Rash looks like it is evolving. Dark red on knees and elbows. Better on torso and chest. No fevers. OBJECTIVE: Patient Vitals for the past 48 hrs: BP Pulse Resp Temp 04/30/19 0604 114/65 67 14 36.1 ??C (97 ??F) 04/29/19 0616 108/69 87 16 36.9 ??C (98.4 ??F) Vital signs are stable and the patient is afebrile. Flat affect. Rash beefy red on elbows, knees. He is thin and frail appearing. Temporal wasting noted, legs very thin. No distress. Respirations even, unlabored. Motor/sensory exam stable. Pressure injury with fibrinous slough in the bottom of the wound, stable. MEDICATIONS: cholecalciferol (Vitamin D3) 1,000 Units oral QHS collagenase topical DAILY DILTiazem 120 mg oral DAILY enoxaparin 40 mg subcutaneous DAILY ferrous sulfate 324 mg oral DAILY (BREAKFAST) guaiFENesin 600 mg oral BID melatonin 5 mg oral QHS miconazole topical BID miconazole topical BID mometasone-formoterol 2 Puff inhalation BID Multivitamins with Minerals 1 Tab oral DAILY pantoprazole 40 mg oral QHS senna 2 Tab oral QHS tiotropium 18 mcg inhalation DAILY triamcinolone topical BID Wool Alcoh-Min Qqq-Dskfp-Hkzny topical BID acetaminophen 650 mg Q4H PRN albuterol 2.5 mg Q4H PRN diphenhydrAMINE 25 mg Q6H PRN LABS: Last labs: Labs: I have personally reviewed CBC: Lab Results Component Value Date WBC 10.01 04/22/2019 RBC 2.95 (L) 04/22/2019 HGB 8.3 (L) 04/22/2019 HCT 26.3 (L) 04/22/2019 MCV 89 04/22/2019 MCH 28.1 04/22/2019 MCHC 31.6 (L) 04/22/2019 PLT 293 04/22/2019 NEUTROABS 8.90 (H) 03/20/2019 BMP: Lab Results Component Value Date NA 135 (L) 04/22/2019 K 4.4 04/22/2019 CL 105 04/22/2019 CO2 23 04/22/2019 BUN 66 (H) 03/24/2019 CREATININE 0.75 04/22/2019 GLUCOSEFINGE 126 (H) 04/07/2019 CALCIUM 8.8 04/22/2019 MG 1.8 04/22/2019 PHOS 4.7 (H) 04/22/2019 LABALBU 2.2 (L) 03/17/2019 ASSESSMENT/PLAN: Rash - looks like a drug reaction - reviewed with derm yesterday Steroid cream bid Changed metoprolol to dilt in case metop was offender Monitor Viktoria was in today to look at his pressure injury Tracheostomy - still with air leak, looks clean Pressure injury - as per Viktoria Baumann Upper GI hemorrhage Cont daily PPI - already completed bid ppi course Avoid nsaids Quit smoking Dysphagia - related to tracheostomy complicated by overall frailty, weakness and debility from prolonged critical illness SECURITY ASSISTANT - D4 with thins Mixed iron deficiency and chronic inflammation anemia + frailty Iron tabs qd Nutrition consult AF - no OAC Changed metop to dilt in case it was the metop causing rash Monitor rate Emphysema, severe Tobacco cessation Dulera + spireva scheduled + albuterol prn Suspect he runs 88-90% normally given the extent of disease OP pulmonary and pulmonary rehab O2 as needed for sats less than 88% but no higher than 93% Cont to encourage frequent IS and acapella The patient is medically stable and tolerating the present level of the rehab program. The patient is to continue in the rehabilitation program. DVT ppx: enox 40 Shanon Reyes MD * Jody Whittington CCC-SECURITY ASSISTANT - 04/30/2019 0960 EDT Speech-Language Pathology Contact Note Patient is currently not available for SECURITY ASSISTANT follow-up this morning secondary to nursing needs. Per nursing and MD documentation, patient continues with audible air escape at stoma site. Therefore, do not anticipate diet texture advancement to regular this date secondary to altered pressures for swallowing impacting pharyngeal clearance. SECURITY ASSISTANT to follow-up later this week. Jody Whittington CCC-SECURITY ASSISTANT 04/30/2019 9:54 * Elizabeth Licea, PT - 04/30/2019 0852 EDT [facility] Rehabilitation Therapy Inpatient Rehabilitation Center [facility] Physical Therapy Encounter Note Date of Service: 04/30/2019 Subjective/Objective Subjective Well that was better! Objective Start time: 1100 Total Therapy Minutes: 30 minute(s) Interventions completed today: Therapeutic activities (2): Overground ambulation: With focus on increased activity tolerance. VS monitored throughout. -VS at start (sitting): HR 103 (irreg), spO2 96% (RA) -Ambulates 60ft, 56ft, and 58ft with RW and supervision, W/C pushed behind for rest breaks. -spO2 >90% on RA primarily. To 88% and 84% briefly with questionable quality of monitor reading -spO2 93% on RA at end of session 2nd Session Time: Start time: 1300 Total Therapy Minutes: 30 minutes Interventions completed today: Therapeutic activities (2): Moveo: For functional strengthening and improved activity tolerance. -To fatigue (6.5/10 on Eunice Dyspnea scale): x50 @15 deg, x25 @ 25 deg, and x26 @25 deg -spO2 >93% (RA) throughout 2nd Session Time: Start time: 1300 Total Therapy Minutes: 30 minutes Interventions completed today: Therapeutic activities (2): NuStep: -4:24 and 4:17 with ~2-3 min rest break between bouts. Performs to fatigue as above. -spO2 >94% (RA) throughout Seat/arms: 11 Workload: 3 Bathroom transfer: -Stand step/pivot transfer from W/C <> toilet with close supervision. -Stands with S for pants management Patient/Family Education: Topic: Treatment progression Learner: patient Method: verbal Barriers to Learning: none noted Outcome: verbalized understanding Team Communication: Chart reviewed. This note acts as primary means of communication with rehab team. Assessment/Plan Assessment Pt has improved activity tolerance compared to last week as demonstrated by increased walking distances, increased number of reps on Moveo, and increased time on NuStep. Pt has ?P2 desaturation in first setting but accuracy of monitor questionable. Otherwise, pt maintains spO2 >90% on room air throughout. Plan Activity tolerance training with Segmental breathing, Activity pacing, Pursed lip breathing Functional strength and endurance training Gait and stairs HEP Primary Therapist: Contact information: Pager: [phone] Elizabeth Licea, HARPAL 04/30/2019 8:51 * Sheela Anthony, OT - 04/30/2019 0754 EDT Rehabilitation Therapies Inpatient Rehabilitation [facility] Occupational Therapy Encounter Note Date of Service: 04/30/2019 Subjective/Objective SUBJECTIVE: I'm getting there. re: pt's response when OT stated that endurance is improving. OBJECTIVE: First Session Start time: 829 Scheduled time: 5228-5781 Total Therapy Minutes: 60 minute(s) Interventions included: Self-Care/Home Management Therapeutic Activities Therapeutic Exercise -Completed grooming and dressing routine with intervals of standing to focus on increased enduranceand independence with self care ?? Pt brushed teeth and washed face while standing at sink with rw and CGA x1. Pt stood for approx 1.5 min, then took a rest break in w/c. Rated standing grooming tasks at 7 RPE. ?? Pt combed hair while sitting. O2 95%. ?? Pt ambulated to closet with CGA x1 to retrieve clothing and returned to w/c. ?? Pt donned shirt independently. Threaded pants onto BLE while sitting, and stood to don pants to waist level with CGA x1. ?? OT promoted PLB throughout self care routine. -Instructed pt in putty HEP with handout and visual demonstration of each exercise. Pt returned demonstration of each exercise with good accuracy and stated comfort level with completed exercises in room. -Facilitated BUE exercises while standing to promote increased strength required during self care ?? Pt completed shoulder flexion to 90 degrees while holding 2# ball with both hands. Pt completed 8 reps, and demonstrated SOB. OT decreased second set to 5 reps. ?? Pt verbalized the need for rest breaks. OT promoted PLB throughout. -Pt required min verbal cues for proper hand placement during sit to stand transfers. OT explained importance of proper body mechanics during transfers for safety awareness. -Pt completed toilet transfer with CGA x1 and initiated use of grab bars to slowly lower to toilet. Vital signs: Vital signs were monitored and were stable throughout occupational therapy session. Patient/Family Education: Topic: Energy conservation Safety awareness Home exercise program Learner: patient Method: verbal, handout and demonstration Barriers to Learning: none noted Outcome: verbalized understanding and returned demonstration Team Communication: Communicated with nursing re: status of pt's rash. Assessment/Plan ASSESSMENT: Pt tolerated therapy well today and demonstrated improved endurance from prior OT session. This patient continues to present with fatigue, low endurance, decreased hand coordination, and decreased standing balance, all of which impact current level of occupational performance. The patient remains appropriate for skilled OT services at an acute rehab level to regain independence and functional mobility for ADL and IADL. PLAN: ?? Continue BUE strengthening ?? Increase standing intervals during self care routine to improve endurance ?? Implementation of ECT Pager: [phone] ENEDINA ANNA, 04/30/2019, 12:12 * Eladio Otero MD - 04/29/2019 1310 EDT Physiatry Progress Note Admit Date: 04/23/2019 Hospital Day: LOS: 6 days Date of Service: 04/29/2019 Chief Complaint: Debility following respiratory failure Subjective: No shortness of breath. Remains with a air leak at his tracheostomy site. Feels his rash is improving. No lightheadedness or GI complaints. Current Facility-Administered Medications: acetaminophen (TYLENOL) tablet 650 mg oral Q4H PRN albuterol (ACCUNEB) nebulizer solution 2.5 mg nebulization Q4H PRN cholecalciferol (Vitamin D3) tablet 1,000 Units oral QHS collagenase (SANTYL) ointment topical DAILY DILTiazem (TIAZAC) ER capsule 120 mg oral DAILY diphenhydrAMINE (BENADRYL) capsule 25 mg oral Q6H PRN enoxaparin (LOVENOX) injection 40 mg subcutaneous DAILY ferrous sulfate EC tablet 324 mg oral DAILY (BREAKFAST) guaiFENesin (MUCINEX) SR tablet 600 mg oral BID melatonin tablet 5 mg oral QHS miconazole (ALOE VESTA) 2 % ointment ointment topical BID miconazole (DESENEX) 2 % powder topical BID mometasone-formoterol (DULERA) 100-5 mcg/actuation inhaler 2 Puff inhalation BID Multivitamins with Minerals tablet 1 Tab oral DAILY pantoprazole (PROTONIX) tablet 40 mg oral QHS senna (SENOKOT) tablet 2 Tab oral QHS tiotropium (SPIRIVA) 18 mcg inhalation capsule 18 mcg inhalation DAILY triamcinolone (KENALOG) 0.1 % ointment topical BID Wool Alcoh-Min Tvp-Zxapf-Hrdao (EUCERIN) cream topical BID Objective/Physical Exam: VS: BP 108/69 (BP Cuff Location: Right arm, Patient Position: Semi fowlers) Pulse 87 Temp 36.9 ??C (98.4 ??F) (Tympanic) Resp 16 Ht 181.6 cm (71.5) Wt 54 kg (119 lb) SpO2 96% BMI 16.37 kg/m?? Pain: Patient Vitals for the past 8 hrs: Numeric Pain Level (Scale 1-10) 04/29/19 0845 0 Weight: Weight : 54 kg (119 lb) Glucose Readings (last 8 readings): No results for input(s): GLUCOSEFINGE in the last 72 hours. I&O: Intake/Output Summary (Last 24 hours) at 04/29/2019 1310 Last data filed at 04/29/2019 0338 Gross per 24 hour Intake 300 ml Output 725 ml Net -425 ml Exam: Gen: Alert, pleasant, no distress HEENT: Head: Normocephalic, no lesions, without obvious abnormality. Neck: Tracheostomy site is open with air leak. Wound edges are clean. Sacral ulceration, unstageable Skin: Sacral ulcer. Macular rash extending through the back, chest abdomen and the right thigh Cardiac: Cor RRR Pulmonary: Diffuse rhonchorous sounds but good air movement otherwise throughout. Abdomen: Bowel sounds present throughout, soft, nontender Musculoskeletal: no joint tenderness, deformity or swelling, no muscular tenderness noted, full range of motion without pain Neuro: Alert, oriented, thought content appropriate Affect: appropriate Language: speech fluent and spontaneous, intact naming and repetition Motor: Strength 4+/5 and symmetric without focal weakness Tone normal Reflexes: 1+ Sensation: No focal sensory loss Cerebellar: no tremors Labs: I have personally reviewed CBC: Lab Results Component Value Date WBC 10.01 04/22/2019 RBC 2.95 (L) 04/22/2019 HGB 8.3 (L) 04/22/2019 HCT 26.3 (L) 04/22/2019 MCV 89 04/22/2019 MCH 28.1 04/22/2019 MCHC 31.6 (L) 04/22/2019 PLT 293 04/22/2019 NEUTROABS 8.90 (H) 03/20/2019 BMP: Lab Results Component Value Date NA 135 (L) 04/22/2019 K 4.4 04/22/2019 CL 105 04/22/2019 CO2 23 04/22/2019 BUN 66 (H) 03/24/2019 CREATININE 0.75 04/22/2019 GLUCOSEFINGE 126 (H) 04/07/2019 CALCIUM 8.8 04/22/2019 MG 1.8 04/22/2019 PHOS 4.7 (H) 04/22/2019 LABALBU 2.2 (L) 03/17/2019 Assessment/Problems: (update problem list daily as appropriate) Patient Active Problem List Diagnosis Date Noted ??? Upper gastrointestinal bleed 04/18/2019 Priority: Medium ??? Septic shock ([facility]) 03/19/2019 Priority: Medium ??? (H)ARDS (adult respiratory distress syndrome) ([facility]) 03/19/2019 Priority: Medium ??? (H)SIRISHA (acute kidney injury) ([facility]) 03/19/2019 Priority: Medium ??? Anemia 03/19/2019 Priority: Medium ??? Thrombocytopenia ([facility]) 03/19/2019 Priority: Medium ??? Bacteremia 03/19/2019 Priority: Medium ??? Fever 03/19/2019 Priority: Medium ??? Encephalopathy 03/19/2019 Priority: Medium ??? (H)Atrial fibrillation with RVR ([facility]) 03/17/2019 Priority: Medium ??? (H)Acute respiratory failure with hypoxia ([facility]) 03/17/2019 Priority: Medium Plan: 1. Debility following prolonged hospitalization, multiple medical comorbidities, including hypoxic respiratory failure: Residual impaired mobility, self-cares, swallowing function. Full PT, OT, SECURITY ASSISTANT assessments and therapies to address mobility, self care, swallowing function. 24 hour rehab nursing for self care deficits 2. Nutrition: Now on dysphagia level 4 diet. Nutrition consult 3. Pneumonia/MSSA bacteremia with acute hypoxic respiratory failure/ARDS: Clinically improving, decannulated and maintaining oxygen saturations but may need supplemental oxygen with increasing activity. Internal medicine help appreciated Continue duo nebs twice daily Maintain guaifenesin 600 mg twice daily Occlusive dressing to the open tracheostomy site. 4. Duodenal ulcer/upper GI bleed: Continue Protonix 40 mg daily. 5. Acute kidney injury: Creatinine has normalized we will monitor overall fluid intake, avoid nephrotoxic agents 6. Anemia: Multifactorial including acute care illness, GI bleed. Counts have been relatively stable but continue to monitor intermittently 7. Sacral ulcer: Unstageable. Followed by wound care nursing. Continue topical treatment and pressure relief. 8. Atrial fibrillation: Back in sinus rhythm. Dermatology believes metoprolol may be the offending agent for the rash, and he has been changed to diltiazem for rate control. Currently not on anticoagulation given recent GI bleed and low CHADS score as documented by medicine. 9. Rash: Appears to be a drug rash, possibly related to metoprolol. Treating symptomatically currently with prednisone and Benadryl. Triamcinolone cream added. ? DVT Prophylaxis: Pharmacologic Prophylaxis: Enoxaparin (Lovenox) 40 mg SQ daily Eladio Otero MD 04/29/2019 13:10 * Eladio Otero MD - 04/28/2019 1403 EDT Physiatry Progress Note Admit Date: 04/23/2019 Hospital Day: LOS: 5 days Date of Service: 04/28/2019 Chief Complaint: Debility following respiratory failure Subjective: Feels that his breathing is doing reasonably well this morning. No shortness of breath at rest. Continues to have some dyspnea with increased activity. No lightheadedness, no GI complaints. No palpitations. Notes some itching from his rash particularly at bedtime, with good effect from Benadryl and currently triamcinolone cream. Current Facility-Administered Medications: acetaminophen (TYLENOL) tablet 650 mg oral Q4H PRN albuterol (ACCUNEB) nebulizer solution 2.5 mg nebulization Q4H PRN cholecalciferol (Vitamin D3) tablet 1,000 Units oral QHS collagenase (SANTYL) ointment topical DAILY DILTiazem (TIAZAC) ER capsule 120 mg oral DAILY diphenhydrAMINE (BENADRYL) capsule 25 mg oral Q6H PRN enoxaparin (LOVENOX) injection 40 mg subcutaneous DAILY ferrous sulfate EC tablet 324 mg oral DAILY (BREAKFAST) guaiFENesin (MUCINEX) SR tablet 600 mg oral BID melatonin tablet 5 mg oral QHS miconazole (ALOE VESTA) 2 % ointment ointment topical BID miconazole (DESENEX) 2 % powder topical BID mometasone-formoterol (DULERA) 100-5 mcg/actuation inhaler 2 Puff inhalation BID Multivitamins with Minerals tablet 1 Tab oral DAILY pantoprazole (PROTONIX) tablet 40 mg oral QHS senna (SENOKOT) tablet 2 Tab oral QHS tiotropium (SPIRIVA) 18 mcg inhalation capsule 18 mcg inhalation DAILY triamcinolone (KENALOG) 0.1 % ointment topical BID Wool Alcoh-Min Jwt-Kdfml-Ulzjp (EUCERIN) cream topical BID Objective/Physical Exam: VS: BP 99/54 (BP Cuff Location: Right arm, Patient Position: Lying left side) Pulse 75 Temp 36.9 ??C (98.4 ??F) (Tympanic) Resp 16 Ht 181.6 cm (71.5) Wt 54 kg (119 lb) SpO2 96% BMI 16.37 kg/m?? Pain: Patient Vitals for the past 8 hrs: Numeric Pain Level (Scale 1-10) 04/28/19 0719 0 Weight: Weight : 54 kg (119 lb) Glucose Readings (last 8 readings): No results for input(s): GLUCOSEFINGE in the last 72 hours. I&O: Intake/Output Summary (Last 24 hours) at 04/28/2019 1403 Last data filed at 04/28/2019 0436 Gross per 24 hour Intake -- Output 750 ml Net -750 ml Exam: Gen: Alert, pleasant, no distress HEENT: Head: Normocephalic, no lesions, without obvious abnormality. Neck: Tracheostomy site is open with air leak. Wound edges are clean. Sacral ulceration, unstageable Skin: Sacral ulcer. Macular rash extending through the back, chest abdomen and the right thigh Cardiac: Cor RRR Pulmonary: Diffuse rhonchorous sounds but good air movement otherwise throughout. Abdomen: Bowel sounds present throughout, soft, nontender Musculoskeletal: no joint tenderness, deformity or swelling, no muscular tenderness noted, full range of motion without pain Neuro: Alert, oriented, thought content appropriate Affect: appropriate Language: speech fluent and spontaneous, intact naming and repetition Motor: Strength 4+/5 and symmetric without focal weakness Tone normal Reflexes: 1+ Sensation: No focal sensory loss Cerebellar: no tremors Labs: I have personally reviewed CBC: Lab Results Component Value Date WBC 10.01 04/22/2019 RBC 2.95 (L) 04/22/2019 HGB 8.3 (L) 04/22/2019 HCT 26.3 (L) 04/22/2019 MCV 89 04/22/2019 MCH 28.1 04/22/2019 MCHC 31.6 (L) 04/22/2019 PLT 293 04/22/2019 NEUTROABS 8.90 (H) 03/20/2019 BMP: Lab Results Component Value Date NA 135 (L) 04/22/2019 K 4.4 04/22/2019 CL 105 04/22/2019 CO2 23 04/22/2019 BUN 66 (H) 03/24/2019 CREATININE 0.75 04/22/2019 GLUCOSEFINGE 126 (H) 04/07/2019 CALCIUM 8.8 04/22/2019 MG 1.8 04/22/2019 PHOS 4.7 (H) 04/22/2019 LABALBU 2.2 (L) 03/17/2019 Assessment/Problems: (update problem list daily as appropriate) Patient Active Problem List Diagnosis Date Noted ??? Upper gastrointestinal bleed 04/18/2019 Priority: Medium ??? Septic shock ([facility]) 03/19/2019 Priority: Medium ??? (H)ARDS (adult respiratory distress syndrome) ([facility]) 03/19/2019 Priority: Medium ??? (H)SIRISHA (acute kidney injury) ([facility]) 03/19/2019 Priority: Medium ??? Anemia 03/19/2019 Priority: Medium ??? Thrombocytopenia ([facility]) 03/19/2019 Priority: Medium ??? Bacteremia 03/19/2019 Priority: Medium ??? Fever 03/19/2019 Priority: Medium ??? Encephalopathy 03/19/2019 Priority: Medium ??? (H)Atrial fibrillation with RVR ([facility]) 03/17/2019 Priority: Medium ??? (H)Acute respiratory failure with hypoxia ([facility]) 03/17/2019 Priority: Medium Plan: 1. Debility following prolonged hospitalization, multiple medical comorbidities, including hypoxic respiratory failure: Residual impaired mobility, self-cares, swallowing function. Full PT, OT, SECURITY ASSISTANT assessments and therapies to address mobility, self care, swallowing function. 24 hour rehab nursing for self care deficits 2. Nutrition: Now on dysphagia level 4 diet. Nutrition consult 3. Pneumonia/MSSA bacteremia with acute hypoxic respiratory failure/ARDS: Clinically improving, decannulated and maintaining oxygen saturations but may need supplemental oxygen with increasing activity. Internal medicine help appreciated Continue duo nebs twice daily Maintain guaifenesin 600 mg twice daily Occlusive dressing to the open tracheostomy site. 4. Duodenal ulcer/upper GI bleed: Continue Protonix 40 mg daily. 5. Acute kidney injury: Creatinine has normalized we will monitor overall fluid intake, avoid nephrotoxic agents 6. Anemia: Multifactorial including acute care illness, GI bleed. Counts have been relatively stable but continue to monitor intermittently 7. Sacral ulcer: Unstageable. Followed by wound care nursing. Continue topical treatment and pressure relief. 8. Atrial fibrillation: Back in sinus rhythm. Dermatology believes metoprolol may be the offending agent for the rash, and he has been changed to diltiazem for rate control. Currently not on anticoagulation given recent GI bleed and low CHADS score as documented by medicine. 9. Rash: Appears to be a drug rash, possibly related to metoprolol. Treating symptomatically currently with prednisone and Benadryl. Triamcinolone cream added. ? DVT Prophylaxis: Pharmacologic Prophylaxis: Enoxaparin (Lovenox) 40 mg SQ daily Eladio Otero MD 04/28/2019 14:03 * Elizbaeth Licea, PT - 04/28/2019 0829 EDT [facility] Rehabilitation Therapy [facility]patient [facility] Physical Therapy Encounter Note Date of Service: 04/28/2019 Subjective/Objective Subjective Minimal verbalizations. Pt agreeable to participate in therapy. States 6MWT was hard but manageable. Objective Start time: 1000 Total Therapy Minutes: 30 minute(s) Interventions completed today: Therapeutic activities (2): Overground ambulation: With focus on improving activity tolerance. VS assessed throughout. Takes 2-3 min seated rest breaks between bouts. Pt self selects taking rest breaks when at 6.5/10 on Eunice Dyspnea scale. -SpO2 at start = 95% (RA) -Walk 18ft with min CGA and RW, W/C follow of another, spO2 90-93% (RA) -Walk 2ft as above, spO2 86% (RA), up to 93-95% (RA) with seated rest break <10 sec -Walk 18ft as above, spO2 86-89% (RA) > 92-94% when titrated up to 3L O2 via nasal cannula. -Post: spO2 96% (RA) in supine Bathroom transfer: Performs stand/squat pivot transfers from W/C <> toilet with no device andclose supervision/incidental touching. Uses B grab bars for transfer and sit <> stand from toilet. 2nd Session Time: Start time: 1130 Total Therapy Minutes: 30 minutes Interventions completed today: Therapeutic activities (2): NuStep: 1:00 min bouts x7 ~1:00-2:00 min seated rest breaks between bouts until not SOB spO2 90--98% (RA) throughout except x1 at end of fifth bout to 87% (RA), up to 96% with seated restand cues for breathing in through nose, out through mouth <20 sec. Seat/arms: 11 Workload: 2 3rd Session Time: Start time: 1500 Total Therapy Minutes: 30 minutes Interventions completed today: Therapeutic exercise (1): Seated therex: Performs x10B Hip flexion LAQ, 3 sec hold, lacking ~5-10deg knee extension Ankle pumps -Edu to perform previously given HEP x3 Tuesday. Pt agreeable. Therapeutic activities (1): Bathroom transfer: Performs stand/squat pivot transfers as above. Six Minute Walk Test^ (meters) 37.97 meters. This test assesses distance walked over 6 minutes as asub-maximal test of aerobic capacity/endurance. *BP Pre: /60 *BP Post: / *Takes 2 seated rest breaks. Age/gender normative values: (Tami, 2001) Age Gender Range for age norms 2 standard deviations around the mean (meters) Range for age norms 2 standard deviations around the mean (feet) 20-40 Male [phone] Female [phone] 41-60 Male [phone] Female [phone] (Gila, 2007) Age Gender 95% CI (meters) 95% CI (feet) 60-69 Male [phone] Female [phone] 70-79 Male [phone] Female [phone] 80-89 Male [phone] Female [phone] Patient/Family Education: Topic: Breathing technique in through nose, out through mouth with pursed lips Learner: patient Method: verbal and demonstration Barriers to Learning: none noted Outcome: needs practice and returned demonstration Team Communication: With RN re: pt BM and O2 desaturation. Assessment/Plan Assessment Pt continues to be motivated to participate in PT. He does experience O2 desaturation today with activity requiring supplemental O2 x1 but is otherwise improved with seated rest and pursed lip breathing. As expected, pt demonstrates significantly impaired functional endurance ambulating 35.97m on the 6MWT. Plan Activity tolerance training with Segmental breathing, Activity pacing, Pursed lip breathing Functional strength and endurance training Gait and stairs 6MWT when appropriate HEP Primary Therapist: Contact information: Pager: [phone] Elizabeth Licea PT 04/28/2019 16:19 * Sheela Anthony OT - 04/28/2019 0705 EDT [facility] Rehabilitation Therapy Inpatient Rehabilitation [facility] Occupational Therapy Encounter Note Date of Service: 04/28/2019 Subjective/Objective Subjective getting ready in the morning is harder then anything I have to do in PT Objective Start time: 0730 Total Therapy Minutes: 60 minute(s) Interventions included: Self-Care/Home Management (2) Completed components of self care routine this date to progress pt's functional safety and independence with ADLs with compensatory strategies as needed. Bed mobility: supervision from flat bed Functional Transfer: contact A x1 with RW Grooming: seated to wash hands and brush teeth and wash hands with mod I Dressing: -UB: supervision -LB: close Supervision -Clothing retrieval: contact A, ambulating to closet and retrieving items from draw and closet Toilet transfer: ambulating with RW and contact A into BR Toileting: close S for clothing management and hygiene Therapeutic Exercise (2) *focus was on increasing UB strength and endurance *ball toss while seated with back support: using basketball and tolerated 3' intervals with 2' restbreak *completed 1 set x10 of the following exercises with 2 lb weight -shoulder flexion to 90* -elbow flexion with controlled extension -overhead triceps *sats during exercises ranging from 93-96% Second session Start Time: 1300 Total Minutes Treatment 2: 30 Interventions included: Self-Care/Home Management (1) *bed mobility: from flat bed with supervision *toilet transfer: ambulating into BR with contact A and RW *toileting: close Supervision for clothing management and hygiene completed while seated *washing hands: ambulated out to BR and tolerated washing hands in stance, however required extended rest break afterwards Therapeutic Exercise (1) *focus was on improving overall endurance and incorporating PLB into movements -2.2 lb weighted ball toss-grading challenge by having pt reaching outside COB -palming 2.2 lb weighted ball x5 seconds intervals. tolerating 10 reps on R hand and 6 on L. Vital signs: See above for O2 sats Patient/Family Education: See above Team Communication: With nursing re: BM and status of pt Assessment/Plan Assessment Pt aware and reporting that completing morning BADLs is more effortful then other tasks during day as he feels he is considerable weak in BUEs. Pt educ and demonstrated pacing strategies during BADLswith pt carry over techniques to slow pace vs completing impulsively and then requiring extensive time to recover. Plan Strengthening/endurance retraining, ambulatory ADL with focus on slow consistent pace Pager: [phone] Sheela Anthony OT, 04/28/2019, 7:05 * Shanon Reyes MD - 04/27/2019 1631 EDT MEDICINE FOLLOW-UP Date of service: 04/27/2019 PCP: Provider None CHIEF COMPLAINT: MSSA pneumonia and staph aureus septic shock, acute hypoxic respiratory failure and acute respiratory distress syndrome, sp tracheostomy, upper gastrointestinal hemorrhage from multifocal ulcer, severe protein calorie malnutrition, deep tissue injury SUBJECTIVE: Rash more confluent. He liked the steroid cream last night. Pretty indifferent about it today. No fevers, cough, chills. OBJECTIVE: Patient Vitals for the past 48 hrs: BP Pulse Heart Rate Resp Temp 04/27/19 0604 112/60 60 -- 16 36.2 ??C (97.2 ??F) 04/26/192040 121/72 -- 73 BPM -- -- 04/26/19 0600 113/62 71 -- 14 36.5 ??C (97.7 ??F) 04/25/192051 122/60 -- 72 BPM -- -- Vital signs are stable and the patient is afebrile. Flat affect. He is thin and frail appearing. Temporal wasting noted, legs very thin. No distress. Respirations even, unlabored. Motor/sensory exam stable. Rash red, raised and more confluent. Redness on buttocks looks better. Pressure injury with fibrinous slough in the bottom of the wound, stable. MEDICATIONS: cholecalciferol (Vitamin D3) 1,000 Units oral QHS collagenase topical DAILY DILTiazem 120 mg oral DAILY enoxaparin 40 mg subcutaneous DAILY ferrous sulfate 324 mg oral DAILY (BREAKFAST) guaiFENesin 600 mg oral BID melatonin 5 mg oral QHS miconazole topical BID miconazole topical BID mometasone-formoterol 2 Puff inhalation BID Multivitamins with Minerals 1 Tab oral DAILY pantoprazole 40 mg oral QHS senna 2 Tab oral QHS tiotropium 18 mcg inhalation DAILY triamcinolone topical BID Wool Alcoh-Min Csg-Jbmsq-Bvrwj topical BID acetaminophen 650 mg Q4H PRN albuterol 2.5 mg Q4H PRN diphenhydrAMINE 25 mg Q6H PRN LABS: Last labs: Labs: I have personally reviewed CBC: Lab Results Component Value Date WBC 10.01 04/22/2019 RBC 2.95 (L) 04/22/2019 HGB 8.3 (L) 04/22/2019 HCT 26.3 (L) 04/22/2019 MCV 89 04/22/2019 MCH 28.1 04/22/2019 MCHC 31.6 (L) 04/22/2019 PLT 293 04/22/2019 NEUTROABS 8.90 (H) 03/20/2019 BMP: Lab Results Component Value Date NA 135 (L) 04/22/2019 K 4.4 04/22/2019 CL 105 04/22/2019 CO2 23 04/22/2019 BUN 66 (H) 03/24/2019 CREATININE 0.75 04/22/2019 GLUCOSEFINGE 126 (H) 04/07/2019 CALCIUM 8.8 04/22/2019 MG 1.8 04/22/2019 PHOS 4.7 (H) 04/22/2019 LABALBU 2.2 (L) 03/17/2019 ASSESSMENT/PLAN: Rash - looks like a drug reaction - reviewed with derm yesterday Steroid cream bid Changed metoprolol to dilt in case metop was offender Monitor Viktoria was in today to look at his pressure injury Tracheostomy - will cont to monitor site for healing Pressure injury - as per Viktoria Baumann Upper GI hemorrhage Daily PPI - already completed bid ppi course Avoid nsaids Quit smoking Dysphagia - related to tracheostomy complicated by overall frailty, weakness and debility from prolonged critical illness SECURITY ASSISTANT re-eval yesterday - cont modified diet D3 right now with thins Mixed iron deficiency and chronic inflammation anemia + frailty Iron tabs qd Nutrition consult AF - no OAC Changed metop to dilt in case it was the metop causing rash Monitor rate Emphysema, severe Tobacco cessation Dulera + spireva scheduled + albuterol prn Suspect he runs 88-90% normally given the extent of disease OP pulmonary and pulmonary rehab O2 as needed for sats less than 88% but no higher than 93% Cont to encourage frequent IS and acapella The patient is medically stable and tolerating the present level of the rehab program. The patient is to continue in the rehabilitation program. DVT ppx: enox 40 Shanon Reyes MD * Viktoria Farr, RN - 04/27/2019 1250 EDT 04/27 04/23: re-consulted to assess pressure injury ?? Pt known to wound care from admission on main campus. Pt was admitted with a deep tissue injury that quickly evolved and became unstageable. Wound care saw pt yesterday, please review note, pic below. Spoke with bedside nurse Dimple and suggested that Sanytl continue to be used to debride yellow slough from base. Wound care will continue to follow. Current assessment: slight improvement with debridement of yellow slough. Surrounding area continues to be fragile blanchable erythema. Rash on surrounding skin has improved. ?? Recommend Dime size amount of Santyl to 2x2 dressing, place over yellow slough on coccyx wound. Cover with??Mepilex??sacral??border. Change every 5-7 days or prn for saturation. Lift daily to assess area and place back down.? Offload pressure from coccyx at all times Turn and reposition pt q2hrs Float heels off from mattress?? Viktoria Farr, Pressure Ulcer Prevention Nurse Jhony not working. No pic taken ?? * Winsome De La Cruz - 04/27/2019 1214 EDT Images from the original note were not included. This is the initial impairment group category coding for the inpatient rehab facility perspective payment system: Cosigned by Eladio Otero MD at 04/27/2019 12:34 EDT * Eladio Otero MD - 04/27/2019 1111 EDT Physiatry Progress Note Admit Date: 04/23/2019 Hospital Day: LOS: 4 days Date of Service: 04/27/2019 Chief Complaint: Debility following respiratory failure Subjective: Reports his rash is bothering him much less. Medicine follow-up appreciated regarding coordinating efforts with dermatology. Continued intermittent shortness of breath limiting his ability to do some occupational therapy this morning.. No lightheadedness, no GI complaints. No palpitations. Current Facility-Administered Medications: acetaminophen (TYLENOL) tablet 650 mg oral Q4H PRN albuterol (ACCUNEB) nebulizer solution 2.5 mg nebulization Q4H PRN cholecalciferol (Vitamin D3) tablet 1,000 Units oral QHS collagenase (SANTYL) ointment topical DAILY DILTiazem (TIAZAC) ER capsule 120 mg oral DAILY diphenhydrAMINE (BENADRYL) capsule 25 mg oral Q6H PRN enoxaparin (LOVENOX) injection 40 mg subcutaneous DAILY ferrous sulfate EC tablet 324 mg oral DAILY (BREAKFAST) guaiFENesin (MUCINEX) SR tablet 600 mg oral BID melatonin tablet 5 mg oral QHS miconazole (ALOE VESTA) 2 % ointment ointment topical BID miconazole (DESENEX) 2 % powder topical BID mometasone-formoterol (DULERA) 100-5 mcg/actuation inhaler 2 Puff inhalation BID Multivitamins with Minerals tablet 1 Tab oral DAILY pantoprazole (PROTONIX) tablet 40 mg oral QHS senna (SENOKOT) tablet 2 Tab oral QHS tiotropium (SPIRIVA) 18 mcg inhalation capsule 18 mcg inhalation DAILY triamcinolone (KENALOG) 0.1 % ointment topical BID Wool Alcoh-Min Cds-Tlpgq-Tyzzx (EUCERIN) cream topical BID Objective/Physical Exam: VS: BP 112/60 (BP Cuff Location: Right arm, Patient Position: Supine) Pulse 60 Temp 36.2 ??C (97.2 ??F) (Tympanic) Resp 16 Ht 181.6 cm (71.5) Wt 54 kg (119 lb) SpO2 96% BMI 16.37 kg/m?? Pain: Patient Vitals for the past 8 hrs: Numeric Pain Level (Scale 1-10) 04/27/19 0700 0 Weight: Weight : 54 kg (119 lb) Glucose Readings (last 8 readings): No results for input(s): GLUCOSEFINGE in the last 72 hours. I&O: Intake/Output Summary (Last 24 hours) at 04/27/2019 1111 Last data filed at 04/27/2019 0600 Gross per 24 hour Intake -- Output 300 ml Net -300 ml Exam: Gen: Alert, pleasant, no distress HEENT: Head: Normocephalic, no lesions, without obvious abnormality. Neck: Tracheostomy site is open with air leak. Wound edges are clean. Sacral ulceration, unstageable Skin: Sacral ulcer. Macular rash extending through the back, chest abdomen and the right thigh Cardiac: Cor RRR Pulmonary: Diffuse rhonchorous sounds but good air movement otherwise throughout. Abdomen: Bowel sounds present throughout, soft, nontender Musculoskeletal: no joint tenderness, deformity or swelling, no muscular tenderness noted, full range of motion without pain Neuro: Alert, oriented, thought content appropriate Affect: appropriate Language: speech fluent and spontaneous, intact naming and repetition Motor: Strength 4+/5 and symmetric without focal weakness Tone normal Reflexes: 1+ Sensation: No focal sensory loss Cerebellar: no tremors Labs: I have personally reviewed CBC: Lab Results Component Value Date WBC 10.01 04/22/2019 RBC 2.95 (L) 04/22/2019 HGB 8.3 (L) 04/22/2019 HCT 26.3 (L) 04/22/2019 MCV 89 04/22/2019 MCH 28.1 04/22/2019 MCHC 31.6 (L) 04/22/2019 PLT 293 04/22/2019 NEUTROABS 8.90 (H) 03/20/2019 BMP: Lab Results Component Value Date NA 135 (L) 04/22/2019 K 4.4 04/22/2019 CL 105 04/22/2019 CO2 23 04/22/2019 BUN 66 (H) 03/24/2019 CREATININE 0.75 04/22/2019 GLUCOSEFINGE 126 (H) 04/07/2019 CALCIUM 8.8 04/22/2019 MG 1.8 04/22/2019 PHOS 4.7 (H) 04/22/2019 LABALBU 2.2 (L) 03/17/2019 Assessment/Problems: (update problem list daily as appropriate) Patient Active Problem List Diagnosis Date Noted ??? Upper gastrointestinal bleed 04/18/2019 Priority: Medium ??? Septic shock ([facility]) 03/19/2019 Priority: Medium ??? (H)ARDS (adult respiratory distress syndrome) ([facility]) 03/19/2019 Priority: Medium ??? (H)SIRISHA (acute kidney injury) ([facility]) 03/19/2019 Priority: Medium ??? Anemia 03/19/2019 Priority: Medium ??? Thrombocytopenia ([facility]) 03/19/2019 Priority: Medium ??? Bacteremia 03/19/2019 Priority: Medium ??? Fever 03/19/2019 Priority: Medium ??? Encephalopathy 03/19/2019 Priority: Medium ??? (H)Atrial fibrillation with RVR ([facility]) 03/17/2019 Priority: Medium ??? (H)Acute respiratory failure with hypoxia ([facility]) 03/17/2019 Priority: Medium Plan: 1. Debility following prolonged hospitalization, multiple medical comorbidities, including hypoxic respiratory failure: Residual impaired mobility, self-cares, swallowing function. Full PT, OT, SECURITY ASSISTANT assessments and therapies to address mobility, self care, swallowing function. 24 hour rehab nursing for self care deficits 2. Nutrition: Now on dysphagia level 4 diet. Nutrition consult 3. Pneumonia/MSSA bacteremia with acute hypoxic respiratory failure/ARDS: Clinically improving, decannulated and maintaining oxygen saturations but may need supplemental oxygen with increasing activity. Internal medicine help appreciated Continue duo nebs twice daily Maintain guaifenesin 600 mg twice daily Occlusive dressing to the open tracheostomy site. 4. Duodenal ulcer/upper GI bleed: Continue Protonix 40 mg daily. 5. Acute kidney injury: Creatinine has normalized we will monitor overall fluid intake, avoid nephrotoxic agents 6. Anemia: Multifactorial including acute care illness, GI bleed. Counts have been relatively stable but continue to monitor intermittently 7. Sacral ulcer: Unstageable. Followed by wound care nursing. Continue topical treatment and pressure relief. 8. Atrial fibrillation: Back in sinus rhythm. Dermatology believes metoprolol may be the offending agent for the rash, and he has been changed to diltiazem for rate control. Currently not on anticoagulation given recent GI bleed and low CHADS score as documented by medicine. 9. Rash: Appears to be a drug rash, possibly related to metoprolol. Treating symptomatically currently with prednisone and Benadryl. Triamcinolone cream added. ? DVT Prophylaxis: Pharmacologic Prophylaxis: Enoxaparin (Lovenox) 40 mg SQ daily Eladio Otero MD 04/27/2019 11:11 * Elizabeth Licea, PT - 04/27/2019 0849 EDT [facility] Rehabilitation Therapy Inpatient Rehabilitation [facility] Physical Therapy Encounter Note Date of Service: 04/27/2019 Subjective/Objective Subjective Pt pleased with progress thus far. Objective Start time: 1000 Total Therapy Minutes: 30 minute(s) Interventions completed today: Therapeutic activities (2): Activity tolerance training: With VS assessment throughout. Ambulates with RW and min CGA of 1 >close supervision, W/C follow of another. On room air throughout. Self-initiates activity pacing and pursed lip breathing throughout. Activity spO2 WHEELER Scale Start (supine HOB elevated) 98% - Walk 20ft 90-94% 6.5/10 Seated rest x1:30 min 94% - Walk 32ft 91-95% 6.5/10 Seated rest x3:15 min 95-96% - Walk 36ft 92-96% 6.5/10 Seated rest x3:30min 95% 4/10 Walk 34ft 91-94% - 2nd Session Time: Start time: 1330 Total Therapy Minutes: 30 minutes Interventions completed today: Therapeutic activities (2): NuStep: 1:00 min bouts x7 ~1:00-2:00 min seated rest breaks between bouts until not SOB spO2 97-99% (RA) throughout Seat/arms: 11 Workload: 1 3rd Session Time: Start time: 1430 Total Therapy Minutes: 30 minutes Interventions completed today: Therapeutic activities (2): Overground ambulation: To promote improved activity tolerance. -Ambulates 50ft, 42ft, and 26ft with RW and close supervision (incidental touching for pants management for last bout), W/C follow of another. spO2 94-98% throughout on RA. Takes 2-3min rest breaks when at [place] WHEELER scale 6.5/10. Last bout trial of standing still for inhale, and stepping forward with continuous RW movement on exhale. Takes ~4-5 steps at a time. Takes 2-3 breaths when stopped. Patient/Family Education: Topic: Rationale for interventions Learner: patient and caregiver (SO) Method: verbal Barriers to Learning: none noted Outcome: verbalized understanding Team Communication: With RN re: pt status. Assessment/Plan Assessment Pt without incidence of O2 desaturation with activity today. He is able to walk longer distances crystal single bout, and does well managing SOB, initiating rest breaks when at 6.5/10 on the E[place] dyspnea scale. Plan Activity tolerance training with Segmental breathing, Activity pacing, Pursed lip breathing Functional strength and endurance training Gait and stairs 6MWT when appropriate HEP Primary Therapist: Contact information: Pager: [phone] Elizabeth Licea PT 04/27/2019 8:50 * Sheela Anthony OT - 04/27/2019 0659 EDT Rehabilitation Therapies Inpatient Rehabilitation [facility] Occupational Therapy Encounter Note Date of Service: 04/27/2019 Subjective/Objective SUBJECTIVE: I really noticed how weak my arms are during my shower. re: pt's response when asked how he thought the shower went. OBJECTIVE: First Session Start time: 829 Scheduled time: 1344-9768 Total Therapy Minutes: 60 minute(s) Interventions included: Self-Care/Home Management Completed components of self care routine this date to progress pt's functional safety and independence with ADLs with energy conservation techniques as needed. Bed mobility: Supervision supine to sit. Functional Transfer: CGA x1 with rw. Provided verbal cueing for correct hand placement. Grooming: Completed while sitting in w/c due to high fatigue level post shower. Pt brushed teeth and combed hair with supervision. Shower transfer: CGA x1 with external support from grab bars. Bathing: Distant supervision UB/LB bathing while seated in shower chair. OT assist with washing hair while pt held towel to cover trach site. Pt rated shower at 6.5 PRE. Dressing: -UB: Pt completed with supervision. -LB: Threaded pants onto BLE while sitting in w/c. Pt stood with external support from rw and CGA x2 while nursing applied cream and new dressing to sacral ulcer. Pt then donned pants to waist level. Vital signs: Vitals assessed at rest at beginning of session. BP: 90/50. O2: 91%. Applied 1L supplemental O2 during shower as O2 sats were at 86-88%. BP 108/68 post activity. Patient/Family Education: Topic: Energy conservation Safety awareness Learner: patient Method: verbal Barriers to Learning: none noted Outcome: verbalized understanding Second Session Start time: 1130 Scheduled time: 4498-1812 Total Therapy Minutes: 30 minute(s) Interventions included: Therapeutic Exercise -Instructed pt in several gentle BUE exercises with PLB between each set to increase strength required during self care tasks ?? Ball toss back and forth from pt to OT with 2# ball while sitting at edge of mat. 2 sets of 10 reps. ?? Instructed pt to do gentle ball toss in air and catch it. 2 sets of 10 reps. ?? Pt stood with CGA x2 holding 2# ball with both hands, raised ball to shoulder height. Pt tolerated 5 reps before needing a rest break. ?? AROM exercises with no weight while sitting at edge of mat. Pt completed shoulder flexion and internal/external rotation, 5 reps each. OT provided visual demonstration. ?? Pt rated exercises at 4 PRE. O2 monitored: 96%. Vital signs: Vital signs were monitored and were stable throughout occupational therapy session. BP: 102/66. Patient/Family Education: Topic: Benefits of activity Energy conservation Learner: patient Method: verbal Barriers to Learning: none noted Outcome: verbalized understanding Team Communication: Communicated with nursing re: coordinating appropriate time to change wound dressings. MD in briefly to check pt's rash. Assessment/Plan ASSESSMENT: Pt tolerated therapy well today and was agreeable to selected actvities. This patient continues to present with fatigue, low endurance, decreased BUE strength, and decreased hand coordination, all of which impact current level of occupational performance. Pt's oxygen desaturation has also been a barrier to participation. The patient is motivated to regain independence and strength andremains appropriate for skilled OT services at an acute rehab level to regain independence and functional mobility for ADL and IADL. PLAN: ?? Establish putty program, provide pt with handout ?? BUE exercises in standing ?? Increase endurance during self care, have pt stand at sink ?? Test transport aircrewman strength Pager: [phone] ENEDINA ANNA, 04/27/2019, 7:07 * Eladio Otero MD - 04/26/2019 6928 EDT Physiatry Progress Note Admit Date: 04/23/2019 Hospital Day: LOS: 3 days Date of Service: 04/26/2019 Chief Complaint: Debility following respiratory failure Subjective: Rash itching did not keep him awake last night. Continued intermittent shortness of breath, not always correlating well with oxygen desaturations but notable with increased activity. No lightheadedness, no GI complaints. No palpitations. Current Facility-Administered Medications: acetaminophen (TYLENOL) tablet 650 mg oral Q4H PRN albuterol (ACCUNEB) nebulizer solution 2.5 mg nebulization Q4H PRN cholecalciferol (Vitamin D3) tablet 1,000 Units oral QHS collagenase (SANTYL) ointment topical DAILY diphenhydrAMINE (BENADRYL) capsule 25 mg oral Q6H PRN enoxaparin (LOVENOX) injection 40 mg subcutaneous DAILY ferrous sulfate EC tablet 324 mg oral DAILY (BREAKFAST) guaiFENesin (MUCINEX) SR tablet 600 mg oral BID melatonin tablet 5 mg oral QHS metoprolol (LOPRESSOR) tablet 12.5 mg oral BID miconazole (ALOE VESTA) 2 % ointment ointment topical BID miconazole (DESENEX) 2 % powder topical BID mometasone-formoterol (DULERA) 100-5 mcg/actuation inhaler 2 Puff inhalation BID Multivitamins with Minerals tablet 1 Tab oral DAILY pantoprazole (PROTONIX) tablet 40 mg oral QHS predniSONE (DELTASONE) tablet 10 mg oral DAILY senna (SENOKOT) tablet 2 Tab oral QHS tiotropium (SPIRIVA) 18 mcg inhalation capsule 18 mcg inhalation DAILY Wool Alcoh-Min Edn-Mynel-Ynpob (EUCERIN) cream topical BID Objective/Physical Exam: VS: BP 113/62 (BP Cuff Location: Right arm, Patient Position: Semi fowlers) Pulse 71 Temp 36.5 ??C (97.7 ??F) (Tympanic) Resp 14 Ht 181.6 cm (71.5) Wt 54 kg (119 lb) SpO2 96% BMI 16.37 kg/m?? Pain: Patient Vitals for the past 8 hrs: Numeric Pain Level (Scale 1-10) 04/26/19 0700 0 Weight: Weight : 54 kg (119 lb) Glucose Readings (last 8 readings): No results for input(s): GLUCOSEFINGE in the last 72 hours. I&O: Intake/Output Summary (Last 24 hours) at 04/26/2019 1238 Last data filed at 04/25/2019 2016 Gross per 24 hour Intake -- Output 150 ml Net -150 ml Exam: Gen: Alert, pleasant, no distress HEENT: Head: Normocephalic, no lesions, without obvious abnormality. Neck: Tracheostomy site is open with air leak. Wound edges are clean. Sacral ulceration, unstageable Skin: Sacral ulcer. Macular rash extending through the back, chest abdomen and the right thigh Cardiac: Cor RRR Pulmonary: Diffuse rhonchorous sounds but good air movement otherwise throughout. Abdomen: Bowel sounds present throughout, soft, nontender Musculoskeletal: no joint tenderness, deformity or swelling, no muscular tenderness noted, full range of motion without pain Neuro: Alert, oriented, thought content appropriate Affect: appropriate Language: speech fluent and spontaneous, intact naming and repetition Motor: Strength 4+/5 and symmetric without focal weakness Tone normal Reflexes: 1+ Sensation: No focal sensory loss Cerebellar: no tremors Labs: I have personally reviewed CBC: Lab Results Component Value Date WBC 10.01 04/22/2019 RBC 2.95 (L) 04/22/2019 HGB 8.3 (L) 04/22/2019 HCT 26.3 (L) 04/22/2019 MCV 89 04/22/2019 MCH 28.1 04/22/2019 MCHC 31.6 (L) 04/22/2019 PLT 293 04/22/2019 NEUTROABS 8.90 (H) 03/20/2019 BMP: Lab Results Component Value Date NA 135 (L) 04/22/2019 K 4.4 04/22/2019 CL 105 04/22/2019 CO2 23 04/22/2019 BUN 66 (H) 03/24/2019 CREATININE 0.75 04/22/2019 GLUCOSEFINGE 126 (H) 04/07/2019 CALCIUM 8.8 04/22/2019 MG 1.8 04/22/2019 PHOS 4.7 (H) 04/22/2019 LABALBU 2.2 (L) 03/17/2019 Assessment/Problems: (update problem list daily as appropriate) Patient Active Problem List Diagnosis Date Noted ??? Upper gastrointestinal bleed 04/18/2019 Priority: Medium ??? Septic shock ([facility]) 03/19/2019 Priority: Medium ??? (H)ARDS (adult respiratory distress syndrome) ([facility]) 03/19/2019 Priority: Medium ??? (H)SIRISHA (acute kidney injury) ([facility]) 03/19/2019 Priority: Medium ??? Anemia 03/19/2019 Priority: Medium ??? Thrombocytopenia ([facility]) 03/19/2019 Priority: Medium ??? Bacteremia 03/19/2019 Priority: Medium ??? Fever 03/19/2019 Priority: Medium ??? Encephalopathy 03/19/2019 Priority: Medium ??? (H)Atrial fibrillation with RVR ([facility]) 03/17/2019 Priority: Medium ??? (H)Acute respiratory failure with hypoxia ([facility]) 03/17/2019 Priority: Medium Plan: 1. Debility following prolonged hospitalization, multiple medical comorbidities, including hypoxic respiratory failure: Residual impaired mobility, self-cares, swallowing function. Full PT, OT, SECURITY ASSISTANT assessments and therapies to address mobility, self care, swallowing function. 24 hour rehab nursing for self care deficits ??Team meeting is attended today and case discussed with all team members. I spent 35 minutes of floor time, greater than 50% of that time was spent face to face with the patient in counseling and coordination of care and counseling including review of therapy goals and barriers to discharge, recovery, functional progress. 2. Nutrition: Now on dysphagia level 4 diet. Nutrition consult 3. Pneumonia/MSSA bacteremia with acute hypoxic respiratory failure/ARDS: Clinically improving, decannulated and maintaining oxygen saturations but may need supplemental oxygen with increasing activity. Internal medicine help appreciated Continue duo nebs twice daily Maintain guaifenesin 600 mg twice daily 4. Duodenal ulcer/upper GI bleed: Continue Protonix 40 mg daily. 5. Acute kidney injury: Creatinine has normalized we will monitor overall fluid intake, avoid nephrotoxic agents 6. Anemia: Multifactorial including acute care illness, GI bleed. Counts have been relatively stable but continue to monitor intermittently 7. Sacral ulcer: Unstageable. Followed by wound care nursing. Continue topical treatment and pressure relief. 8. Atrial fibrillation: Back in sinus rhythm. Continue metoprolol. Currently not on anticoagulationgiven recent GI bleed and low CHADS score as documented by medicine. 9. Rash: Appears to be a drug rash. Treating symptomatically currently with prednisone and Benadryl. Dr. Reyes is sending pictures to dermatology for evaluation. ? DVT Prophylaxis: Pharmacologic Prophylaxis: Enoxaparin (Lovenox) 40 mg SQ daily Eladio Otero MD 04/26/2019 12:38 * Shanon Reyes MD - 04/26/2019 1019 EDT MEDICINE FOLLOW-UP Date of service: 04/26/2019 PCP: Provider None CHIEF COMPLAINT: MSSA pneumonia and staph aureus septic shock, acute hypoxic respiratory failure and acute respiratory distress syndrome, sp tracheostomy, upper gastrointestinal hemorrhage from multifocal ulcer, severe protein calorie malnutrition, deep tissue injury SUBJECTIVE: Beefy redness on buttocks better. Rash looks like a leukocytoclastic vasculitis? OBJECTIVE: Patient Vitals for the past 48 hrs: BP Pulse Heart Rate Resp Temp 04/26/19 0600 113/62 71 -- 14 36.5 ??C (97.7 ??F) 04/25/192051 122/60 -- 72 BPM -- -- 04/25/19 0603 110/64 78 -- 14 37 ??C (98.6 ??F) 04/24/192025 115/68 -- 84 BPM -- -- Vital signs are stable and the patient is afebrile. Flat affect. He is thin and frail appearing. Temporal wasting noted, legs very thin. No distress. Respirations even, unlabored. Motor/sensory exam stable. Rash red, raised and confluent. Redness on buttocks looks better. Pressure injury with fibrinous slough in the bottom of the wound, stable. MEDICATIONS: cholecalciferol (Vitamin D3) 1,000 Units oral QHS collagenase topical DAILY enoxaparin 40 mg subcutaneous DAILY ferrous sulfate 324 mg oral DAILY (BREAKFAST) guaiFENesin 600 mg oral BID melatonin 5 mg oral QHS metoprolol 12.5 mg oral BID miconazole topical BID miconazole topical BID mometasone-formoterol 2 Puff inhalation BID Multivitamins with Minerals 1 Tab oral DAILY pantoprazole 40 mg oral QHS predniSONE 10 mg oral DAILY senna 2 Tab oral QHS tiotropium 18 mcg inhalation DAILY Wool Alcoh-Min Qcs-Yhewu-Jgpwf topical BID acetaminophen 650 mg Q4H PRN albuterol 2.5 mg Q4H PRN diphenhydrAMINE 25 mg Q6H PRN LABS: Last labs: Labs: I have personally reviewed CBC: Lab Results Component Value Date WBC 10.01 04/22/2019 RBC 2.95 (L) 04/22/2019 HGB 8.3 (L) 04/22/2019 HCT 26.3 (L) 04/22/2019 MCV 89 04/22/2019 MCH 28.1 04/22/2019 MCHC 31.6 (L) 04/22/2019 PLT 293 04/22/2019 NEUTROABS 8.90 (H) 03/20/2019 BMP: Lab Results Component Value Date NA 135 (L) 04/22/2019 K 4.4 04/22/2019 CL 105 04/22/2019 CO2 23 04/22/2019 BUN 66 (H) 03/24/2019 CREATININE 0.75 04/22/2019 GLUCOSEFINGE 126 (H) 04/07/2019 CALCIUM 8.8 04/22/2019 MG 1.8 04/22/2019 PHOS 4.7 (H) 04/22/2019 LABALBU 2.2 (L) 03/17/2019 ASSESSMENT/PLAN: 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 Buttocks look better today: Continue wound care per Viktoria to the pressure injury area Dermatology evaluation? Miconazole powder and ointment to buttocks as well as rash on body He got a dose of pred this am Tracheostomy - cont to monitor site for healing Pressure injury - as per Viktoria B Upper GI hemorrhage Daily PPI - already completed bid ppi course Avoid nsaids Quit smoking Dysphagia - related to tracheostomy complicated by overall frailty, weakness and debility from prolonged critical illness SECURITY ASSISTANT re-eval yesterday - cont modified diet D3 right now with thins Mixed iron deficiency and chronic inflammation anemia + frailty Iron tabs qd Nutrition consult AF - no OAC Cont metoprolol 12.5 bid Emphysema, severe Tobacco cessation Dulera + spireva scheduled + albuterol prn Suspect he runs 88-90% normally given the extent of disease OP pulmonary and pulmonary rehab O2 as needed for sats less than 88% but no higher than 93% Cont to encourage frequent IS and acapella The patient is medically stable and tolerating the present level of the rehab program. The patient is to continue in the rehabilitation program. DVT ppx: enox 40 Shanon Reyes MD * Elizabeth Licea, PT - 04/26/2019 0854 EDT [facility] Rehabilitation Therapy [facility] Physical Therapy Encounter Note Date of Service: 04/26/2019 Subjective/Objective Subjective I need another minute. I think today was a good day for me. Objective Start time: 1000 Total Therapy Minutes: 30 minute(s) Interventions completed today: Vital signs: Start (supine HOB elevated): HR 81 (reg), spO2 97% During BBS: spO2- 91-95%, WHEELER 7/10 Therapeutic activities (1): Supine <> sit: I, flat bed, no rails Transfers: -Stand/squat pivot from bed > W/C and W/C > mat with instruction for hand placement and min Aof 1 -Stand step from W/C > bed with RW and min CGA of 1. Neuromuscular re-education (1): Completes first 9 items of BBS assessment. 3-5 min seated rest breaks between test items. [place] Balance Scale (BBS)^ . This test is a 14-item objective measure designed to screen balance in adult populations. Balance is one domain of fall risk. As the score decreases, the patient may exhibit more balance deficits putting them at increased risk for falling. (Barb, 2008, Kashif, 2004, Ashlie, 2016) 1. Sitting to standing 3 2. Standing unsupported 3 3. Sitting unsupported feet on floor 4 4. Standing to sitting 3 5. Transfers 1 6. Standing unsupported with eyes closed 2 7. Standing unsupported with feet together 1 8. Reaching forward with outstretched arm 1 9. melter supervisor object from floor 0 10.Turn look behind over left/right shoulder 0 11.Turn 360 degrees 0 12.Stool touch 1 13.Standing unsupported one foot in front 1 14.Standing on one leg 0 Total 20/56 Age/gender normative values for community dwelling elders (Rg, 2002) Age Gender 95% CI 60-69 Male 55-56 60-69 Female 54-56 70-79 Male 52-56 70-79 Female 52-55 80-89 Male 51-54 80-89 Female 49-52 BBS Initial Score MDC-95% 25-34 6.3 35-44 4.9 45-56 3.3 (Mari, 2009) 2nd Session Time: Start time: 1300 Total Therapy Minutes: 30 minutes Interventions completed today: Therapeutic activities (1): Overground ambulation: 34ft with RW and min CGA of 1, W/C follow of another. spO2 91% (RA) post. Independently initiates activity pacing throughout. -Cues for pursed lip breathing throughout ambulation and BBS -New pressure relieving W/C cushion obtained for skin protection- pt reports improved comfort compared to previous cushion. Neuromuscular re-education (1): -Performs last 5 items of BBS, see above. Increased time for seated rest breaks as above. spO2- 90-95% (RA) throughout. 3rd Session Time: Start time: 1500 Total Therapy Minutes: 30 minutes Interventions completed today: Therapeutic activities (2): Transfers; Stand/squat pivot x4 throughout session with no device and min A- close supervision of 1. NuStep: 1:00 min bouts x7 ~1:00-2:00 min seated rest breaks between bouts until not SOB spO2 95-97% (RA) throughout Seat/arms: 11 Workload: 1 Patient/Family Education: Topic: Rationale for pursed lip breathing Learner: patient Method: verbal Barriers to Learning: none noted Outcome: verbalized understanding, needs practice implicating I Team Communication: Communication re: pt POC and DC planning with treatment team at interdisciplinary team rounds. Assessment/Plan Assessment Pt has improved ability to participate in PT interventions with rest breaks between therapies and 30 min sessions of PT vs 60 min sessions. His BBS score of 20/56 indicates significant fall risk. Anticipate that pt scored lower on certain items due to trying to finish items quickly due to SOB when standing. Pt's spO2 remains >/=90% on room air throughout all sessions today. He demonstrates improving activity tolerance but remains limited by WHEELER, fatigue and need for significant rest breaks. Plan Activity tolerance training with Segmental breathing, Activity pacing, Pursed lip breathing Functional strength and endurance training Gait and stairs 6MWT when appropriate HEP Primary Therapist: Contact information: Pager: [phone] Elizabeth Licea, PT 04/26/2019 15:20 * PkJody, [facility]-SECURITY ASSISTANT - 04/26/2019 0832 EDT Speech-Language Pathology Clinical Swallow Follow-Up SECURITY ASSISTANT Diagnosis: Dysphagia, pharyngeal phase: Medical Diagnosis: MSSA pneumonia and staph aureus septic shock, acute hypoxic respiratory failure and acute respiratory distress syndrome, s/p tracheostomy Date of Onset: 03/17/2019 Date of Referral: 04/23/2019 Start Time: 0900 Total Therapy minutes: 30 minute(s) swallow eval SUBJECTIVE: I don't want to eat anything that's tough and chewy right now. OBJECTIVE: History: Patient is a??64-year-old male with no prior medical history although he had not seen a physician in some 10 years. ??He presented to [facility] on 03/17/2019 with approximately 2.5 weeks of fever, loss of appetite, weakness, fatigue and diarrhea. ??Work-up at [facility] revealed pneumonia/ARDS and renal failure, as well as atrial fibrillation with RVR. ??He was transferred to the [facility] on 03/17/2019 for acute hypoxic respiratory failure with ARDS, volume overload, COPD and hemodynamic instability. ??He had evidence of sepsis secondary to a leftlower lobe pneumonia and MSSA bacteremia. ?? On admission he was placed on Levophed and propofol, transition to ketamine secondary to hypotension. ??He was on Zosyn and azithromycin, and changed to ceftaroline as well as given vancomycin. ??Antibiotics were narrowed to nafcillin with Zosyn on 03/21/2019. ??On 03/20/2019 he did have some acute de compensation with concern of pulmonary embolism, was given heparin but developed bright red blood per rectum and of his orogastric tube. ??He had an acute blood loss anemia was transfused 3 units packed red blood cells and 1 unit platelets, started on pressors. ??EGD is revealed diffuse stomach andduodenal ulcerations. ??CT scan of the abdomen pelvis showed the jejunum being edematous and thicken ed, there was marked gallbladder distention without radiopaque cholelithiasis or evidence of gallbladder wall thickening. ??There was a left adrenal nodule favoring adenoma. ??TIESHA showed no acute findings during his stay. ??The difficulty with weaning from mechanical ventilation and a tracheostomy tube was placed on 03/28/2019 and was additionally weaned from pressors. ??CT scan of the chest with multifocal pneumonia within both lungs, bilateral parapneumonic effusions, moderate aortic great vessel atherosclerotic calcifications and mucous in the right lower lobe airways. He again had an anemia and on 04/07/2019 received an additional unit of packed red blood cells. ??Hewas transitioned to the floor, but on 04/12/2019 developed hypoxia again, and was transferred back to the medical intensive care unit. ?? He again was stabilized and moved to the floors. Follow-up imaging showed slight progression of multifocal regions of airspace disease in the lungs and small bilateral pleural effusions. ??He had required continue supplemental oxygen up to 5 L last night with oxygen desaturation down to 86%. He subsequently was de cannulated and tolerated this well and nasogastric tube removed with patient takinga dysphagia level 3 diet well. He has been seen by all therapy modalities and actively participating, being independent with all mobility and self-cares prior to his hospitalization. Given functionallimitations, he was evaluated and determined to be an appropriate candidate for acute inpatient rehabilitation.? This patient's current status is similar to the pre-admission screening and is appropriate for inpatient rehabilitation admission. PMH: Past Medical History: Diagnosis Date ??? ARDS (adult respiratory distress syndrome) ([facility]) Current Diet: Dysphagia Diet Level: 3 (soft, easy to chew, single consistency) and Thin liquids Diet prior to admission: Regular texture with thin liquids at baseline Current Medications: Current Facility-Administered Medications Medication Dose Route Frequency Provider Last Rate Last Dose ??? acetaminophen (TYLENOL) tablet 650 mg 650 mg oral Q4H PRN Eladio Otero MD ??? albuterol (ACCUNEB) nebulizer solution 2.5 mg 2.5 mg nebulization Q4H PRN Eladio Otero MD ??? cholecalciferol (Vitamin D3) tablet 1,000 Units 1,000 Units oral QHS Shanon Reyes MD 1,000 Units at 04/25/192051 ??? collagenase (SANTYL) ointment topical DAILY Eladio Otero MD ??? diphenhydrAMINE (BENADRYL) capsule 25 mg 25 mg oral Q6H PRN Eladio Otero MD 25 mg at 04/25/192051 ??? enoxaparin (LOVENOX) injection 40 mg 40 mg subcutaneous DAILY Eladio Otero MD 40 mg at [birth year]/26/1943 ??? ferrous sulfate EC tablet 324 mg 324 mg oral DAILY (BREAKFAST) Eladio Otero MD 324 mg at 04/26/19741 ??? guaiFENesin (MUCINEX) SR tablet 600 mg 600 mg oral BID Eladio Otero MD 600 mg at 04/26/19742 ??? melatonin tablet 5 mg 5 mg oral QHS Eladio Otero MD 5 mg at 04/25/192051 ??? metoprolol (LOPRESSOR) tablet 12.5 mg 12.5 mg oral BID Eladio Otero MD 12.5 mg at 04/26/19741 ??? miconazole (ALOE VESTA) 2 % ointment ointment topical BID Shanon Reyes MD ??? miconazole (ALOE VESTA) 2 % ointment ointment topical BID Shanon Reyes MD ??? miconazole (DESENEX) 2 % powder topical BID Shanon Reyes MD ??? miconazole (DESENEX) 2 % powder topical BID Shanon Reyes MD ??? mometasone-formoterol (DULERA) 100-5 mcg/actuation inhaler 2 Puff 2 Puff inhalation BID Shanon Reyes MD 2 Puff at 04/26/1946 ??? Multivitamins with Minerals tablet 1 Tab 1 Tab oral DAILY Eladio Otero MD 1 Tab at ??? pantoprazole (PROTONIX) tablet 40 mg 40 mg oral QHS Shanon Reyes MD 40 mg at 04/25/192052 ??? predniSONE (DELTASONE) tablet 10 mg 10 mg oral DAILY Eladio Otero MD 10 mg at 10/24/19 0742 ??? senna (SENOKOT) tablet 2 Tab 2 Tab oral QHS Eladio Otero MD 2 Tab at 04/25/192051 ??? tiotropium (SPIRIVA) 18 mcg inhalation capsule 18 mcg 18 mcg inhalation DAILY Shanon Reyes MD 18 mcg at 04/26/19 0745 ??? Wool Alcoh-Min Fzu-Hfrqm-Ykahv (EUCERIN) cream topical BID Shanon Reyes MD Clinical Swallow Follow-Up: 04/26/2019 Current Status: Cognitive Status: Patient currently presents with cognitive- linguistic functioning that is within functional limits. Patient was alert and cooperative during evaluation. Respiratory Status: Patient decannulated on 04/19/2019. Audible air escape at stoma site continues The Eating Assessment Tool-10 (EAT-10) (Margaret et al., 2008) was utilized today, it is a validated instrument to quantify severity of dysphagia. EAT-10 score: 5 (>3 is considered abnormal) Positioning: Seen at bedside for evaluation. Head of bed elevated to tolerance. Consistencies Tested: was assessed with thin liquid and solid consistencies (saltines). Methods of Delivery: Patient was able to self administer all items without SECURITY ASSISTANT assistance using a spoon, cup and straw. Oral Phase Findings: Oral phase of swallowing is within normal limits. Patient presents with adequate oral containment, functional chewing and appropriate bolus transport for all consistencies tested.Pharyngeal Phase: Patient presents with pharyngeal phase deficits as suggested by multiple swallowswith liquids only. No coughing noted with liquids or solids today. Esophageal Phase: Patient did not present with any overt s/s suggestive of esophageal phase swallow difficulty. Compensatory Strategies: The following compensatory swallow strategies were attempted during today's evaluation: Compensatory strategy of a breath hold strategy presented as effective during clinicalswallow evaluation. Patient/Family Education/Training: Topic: Swallow Function Patient/Family education and training was completed today including the role of Speech-Language Pathology, results of today's exam/recommendations, anatomy and physiology of the swallowing mechanism and rehab goals. Learner: patient Method of Education: Verbal, Written and Demonstration Barriers to Learning/Education: none Patient: was able to verbalize understanding of information, was able to return demonstration and needs further instruction and education Family: was not present ASSESSMENT/CLINICAL IMPRESSIONS: is a 64 y.o. male admitted with pneumonia, s/p tracheostomy (03/28/2019) and decannulation(04/19/2019). A clinical swallow follow-up was completed today by Speech Language Pathology secondary to concerns for oropharyngeal dysphagia, and risk of laryngeal penetration/aspiration. Patient currently presents with a mild pharyngeal phase dysphagia characterized by multiple swallows with thinliquids. Patient continues to demonstrates audible air escape at stoma site despite being covered by dressing. Etiology of dysphagia is mechanical and likely secondary to altered pressures and sensation related to unhealed stoma site and tracheostomy placement, compounded by his overall deconditioned state. Patient remains at increased risk of aspiration at this time. Compensatory strategies of breath hold technique with liquids and controlled rate/size of bolus appear effective in decreasing risk of aspiration. Prognosis for improvement in swallow function is judged to be good at this time secondary to improvements to date. Anticipate that the patient will tolerate diet texture advancementto Dysphagia 4. Functional Communication Measures ([place] Speech- Language- [employer], 2002). The Functional Communication Measures (FCM???s) are a series of 7 point rating scales, ranging fromleast functional (Level 1) to most functional (Level 7). They have been developed by SUE to describe different aspects of patient???s functional communication and swallowing abilities over the course of SECURITY ASSISTANT intervention. ?? Swallowing Level 5: Swallowing is safe with minimal diet restriction and/or occasionally requires minimal cueing to use compensatory strategies. The individual may occasionally self-cue. All nutrition and hydration needs are met by mouth at mealtime. GOALS: Senior Care Goal: Swallowing Level 7: Individual's ability to eat independently is not limited by swallow function. Swallowing is safe and efficient for all consistencies. Compensatory strategies are effectively used when needed. Short Term Goal: Swallow Function: Goal #1: Patient will demonstrate tolerance of thin liquids as evidenced by absence of overt s/s ofpenetration/aspiration on 10/10 trials with independent use of compensatory strategies. Goal #2: Patient will demonstrate readiness for diet advancement to regular diet texture as evidenced by adequate oral clearance and absence of overt s/s of penetration/aspiration on 10/10 trials with independent use of compensatory strategies. Goal met - upgraded PLANS/RECOMMENDATIONS: Patient will continue to benefit for further SECURITY ASSISTANT intervention in this setting to address dysphagia management and intervention needs. He will be seen 2-3x/week @ 30-minutes. As a result of the dysphagia consultation, the following recommendations are provided to maximize swallow function and to minimize risk of dysphagia and its ramifications: ?? DIET: Upgrade diet to Dysphagia 4. Continue with thin liquids. Continue with Mighty shakes and magic cup for supplements. Continue higher calorie, nutrient dense foods given high nutrition needs. MEDICATIONS: Whole in applesauce with a liquid wash, or whole lay-qp-m-time with a liquid wash - decided per patient preference ?? FEEDING/EATING STRATEGIES: Patient may eat independently. When eating, patient should be upright at 90 degrees as tolerated. Patient should take small, single sips of thin liquid. Patient should implement breath hold strategy when drinking. Patient may use a straw when drinking liquids. Patient should alternate liquids and solids during meal time. Jody Whittington CCC-SECURITY ASSISTANT 04/26/2019 9:43 * Mar Tello, OTR - 04/26/2019 0701 EDT Rehabilitation Therapies [facility]patient [facility] Occupational Therapy Encounter Note Date of Service: 04/26/2019 Subjective/Objective SUBJECTIVE: I think I need to sit and catch my breath. re: pt's response when asked how he felt after toileting tasks. OBJECTIVE: First Session Start time: 0800 Scheduled time: 8742-3207 Total Therapy Minutes: 60 minute(s) Interventions included: Self-Care/Home Management Therapeutic Activities -Pt laying in bed upon OT arrival. Assessed vital at rest. BP: 102/66. HR: 81. O2: 95%. -Completed toileting tasks with a focus on safe functional mobility and increased independence withself care ?? Ambulatory toilet transfer with CGA x2. Pt managed clothing and initiated use of grab bars to lower to toilet. ?? Completed toilet hygiene with independence. Monitored O2 post activity. -Completed grooming with one interval of standing at sink to increase functional activity tolerance ?? Pt brushed teeth and washed face while standing at sink with CGA x2. Pt demonstrated shortness of breath and shallow breathing. OT suggested rest break. ?? O2 sats after grooming were 82%. Took 7 minute break and encouraged PLB. After break O2 sats were 97%. -Completed UB/LB dressing to promote increased independence with ADL ?? Pt donned shirt with supervision. ?? Threaded pants onto BLE while seated in w/c. Stood with CGA x1 to don pants to waist level. Pt initiated proper hand placement on w/c arm rests during sit to stand transfer. ?? Assessed BP after dressing routine: 99/. Nursing aware. 9 Hole Peg Test^: This test measures finger dexterity. 04/26/2019 Right (seconds) 33 Left (seconds) 33 Age/gender based healthy normative values ([place]-Rahul, 2003) Male Range (seconds): mean ?? 2 standard deviations Range (seconds): mean ?? 2 standard deviations Age Right Left 21 - 25 13.11 - 19.71 14.65 - 20.35 26 - 30 13.10 - 20.66 13.40 - 22.28 31 - 35 12.14 - 22.94 12.59 - 24.35 36 - 40 13.47 - 21.95 14.02 - 23.22 41 - 45 12.78 - 24.30 13.65 - 23.33 46 - 50 13.41 - 23.29 14.19 - 24.95 51 - 55 14.16 - 23.64 13.64 - 26.04 56 - 60 11.80 - 30.00 14.86 - 28.42 61 - 65 13.87 - 27.87 15.64 - 27.56 66 - 70 14.65 - 27.81 14.87 - 29.71 >= 71+ 14.59 - 36.99 16.87 - 35.03 Female Range (seconds): mean ?? 2 standard deviations Range (seconds): mean ?? 2 standard deviations Age Right Left 21 - 25 12.40 - 19.68 14.11 - 20.31 26 - 30 12.08 - 19.72 13.43 - 20.51 31 - 35 13.29 - 20.09 13.21 - 21.73 36 - 40 12.84 - 20.64 14.00 - 22.32 41 - 45 12.26 - 20.82 13.52 - 21.76 46 - 50 13.34 - 21.38 13.36 - 22.56 51 - 55 13.62 - 21.14 14.34 - 23.50 56 - 60 13.08 - 22.64 12.96 - 26.00 61 - 65 14.63 - 23.35 14.81 - 25.85 66 - 70 13.60 - 26.20 13.50 - 29.38 >= 71+ 10.45 - 34.53 12.79 - 35.43 -Focus on developing HEP to increase dexterity and coordination. Provided soft theraputty and provided written instructions for ?? gross grasp squeeze and in hand manipulation ?? rolling out into snake for tip to tip pinch and 3 jaw pinch ?? picking up small bead out of container, placing in putty, kneading putty to retrieve bead and placing bead back in container Vital signs: See above. Patient/Family Education: Topic: Benefits of activity Role of OT Energy conservation Safety awareness Learner: patient Method: verbal Barriers to Learning: none noted Outcome: verbalized understanding Team Communication: Communicated with nursing regarding pt's O2 desaturation during self care tasksand decreased BP. Reported at weekly rounds meeting regarding main barriers to progress and d/c planning. Assessment/Plan ASSESSMENT: Pt agreeable to engaging in therapy, however participation was limited by fatigue and O2 desaturation. This patient continues to present with low endurance, fatigue, decreased BUE strength, and decreased fine motor control, all of which impact current level of occupational performance. The patient remains appropriate for skilled OT services at an acute rehab level to regain independence and functional mobility for ADL and IADL. PLAN: ?? Shower assessment ?? BUE AROM exercises ?? Establish putty program ?? Energy conservation during ADLs Pager: [phone] ENEDINA ANNA, 04/26/2019, 14:44 * Obi Rhoades - 04/25/2019 2967 EDT Spiritual Care Note Re: Shirlene Bryan : 1955, AGE: 64 y.o. Room: [place] [address] Shirlene Bryan who is listed as Worship has received a visit from the Spiritual Care Department on 04/25/2019. Need/Assessment: ?? Patient was unavailable at the time. Box Loader will visit at a later time. Chaplain Quinn Mosqueda [address] Phone [phone] Spiritual Care is available 24 hours a day. Chaplains are available 24 hours a day. For routine consults please call and leave a message with the Spiritual Care Office ([phone]) and patients will be seen within 24 hours. For all emergent consults page the Anglican or Inter[facility] on-call Box Loader through [facility] ([phone]). * Eladio Otero MD - 04/25/2019 1436 EDT Physiatry Progress Note Admit Date: 04/23/2019 Hospital Day: LOS: 2 days Date of Service: 04/25/2019 Chief Complaint: Debility following respiratory failure Subjective: Rash continues and is itching. He is not appreciating significant shortness of breath. No lightheadedness, no GI complaints. No palpitations. Current Facility-Administered Medications: acetaminophen (TYLENOL) tablet 650 mg oral Q4H PRN albuterol (ACCUNEB) nebulizer solution 2.5 mg nebulization Q4H PRN cholecalciferol (Vitamin D3) tablet 1,000 Units oral QHS collagenase (SANTYL) ointment topical DAILY diphenhydrAMINE (BENADRYL) capsule 25 mg oral Q6H PRN enoxaparin (LOVENOX) injection 40 mg subcutaneous DAILY ferrous sulfate EC tablet 324 mg oral DAILY (BREAKFAST) guaiFENesin (MUCINEX) SR tablet 600 mg oral BID melatonin tablet 5 mg oral QHS metoprolol (LOPRESSOR) tablet 12.5 mg oral BID miconazole (ALOE VESTA) 2 % ointment ointment topical BID miconazole (ALOE VESTA) 2 % ointment ointment topical BID miconazole (DESENEX) 2 % powder topical BID miconazole (DESENEX) 2 % powder topical BID mometasone-formoterol (DULERA) 100-5 mcg/actuation inhaler 2 Puff inhalation BID Multivitamins with Minerals tablet 1 Tab oral DAILY pantoprazole (PROTONIX) tablet 40 mg oral QHS predniSONE (DELTASONE) tablet 10 mg oral DAILY senna (SENOKOT) tablet 2 Tab oral QHS tiotropium (SPIRIVA) 18 mcg inhalation capsule 18 mcg inhalation DAILY Wool Alcoh-Min Jth-Havox-Ycwxl (EUCERIN) cream topical BID Objective/Physical Exam: VS: BP 110/64 (BP Cuff Location: Left arm, Patient Position: Semi fowlers) Pulse 78 Temp 37 ??C (98.6 ??F) (Tympanic) Resp 14 Ht 181.6 cm (71.5) Wt 54 kg (119 lb) SpO2 96% BMI 16.37 kg/m?? Pain: Patient Vitals for the past 8 hrs: Numeric Pain Level (Scale 1-10) 04/25/19 0805 0 Weight: Weight : 54 kg (119 lb) Glucose Readings (last 8 readings): No results for input(s): GLUCOSEFINGE in the last 72 hours. I&O: No intake or output data in the 24 hours ending 04/25/19 1436 Exam: Gen: Alert, pleasant, no distress HEENT: Head: Normocephalic, no lesions, without obvious abnormality. Neck: Tracheostomy site is open with air leak. Wound edges are clean. Sacral ulceration, unstageable Skin: Sacral ulcer. Macular rash extending through the back, chest abdomen and the right thigh Cardiac: Cor RRR Pulmonary: Diffuse rhonchorous sounds but good air movement otherwise throughout. Abdomen: Bowel sounds present throughout, soft, nontender Musculoskeletal: no joint tenderness, deformity or swelling, no muscular tenderness noted, full range of motion without pain Neuro: Alert, oriented, thought content appropriate Affect: appropriate Language: speech fluent and spontaneous, intact naming and repetition Motor: Strength 4+/5 and symmetric without focal weakness Tone normal Reflexes: 1+ Sensation: No focal sensory loss Cerebellar: no tremors Labs: I have personally reviewed CBC: Lab Results Component Value Date WBC 10.01 04/22/2019 RBC 2.95 (L) 04/22/2019 HGB 8.3 (L) 04/22/2019 HCT 26.3 (L) 04/22/2019 MCV 89 04/22/2019 MCH 28.1 04/22/2019 MCHC 31.6 (L) 04/22/2019 PLT 293 04/22/2019 NEUTROABS 8.90 (H) 03/20/2019 BMP: Lab Results Component Value Date NA 135 (L) 04/22/2019 K 4.4 04/22/2019 CL 105 04/22/2019 CO2 23 04/22/2019 BUN 66 (H) 03/24/2019 CREATININE 0.75 04/22/2019 GLUCOSEFINGE 126 (H) 04/07/2019 CALCIUM 8.8 04/22/2019 MG 1.8 04/22/2019 PHOS 4.7 (H) 04/22/2019 LABALBU 2.2 (L) 03/17/2019 Assessment/Problems: (update problem list daily as appropriate) Patient Active Problem List Diagnosis Date Noted ??? Upper gastrointestinal bleed 04/18/2019 Priority: Medium ??? Septic shock ([facility]) 03/19/2019 Priority: Medium ??? (H)ARDS (adult respiratory distress syndrome) ([facility]) 03/19/2019 Priority: Medium ??? (H)SIRISHA (acute kidney injury) ([facility]) 03/19/2019 Priority: Medium ??? Anemia 03/19/2019 Priority: Medium ??? Thrombocytopenia ([facility]) 03/19/2019 Priority: Medium ??? Bacteremia 03/19/2019 Priority: Medium ??? Fever 03/19/2019 Priority: Medium ??? Encephalopathy 03/19/2019 Priority: Medium ??? (H)Atrial fibrillation with RVR ([facility]) 03/17/2019 Priority: Medium ??? (H)Acute respiratory failure with hypoxia ([facility]) 03/17/2019 Priority: Medium Plan: 1. Debility following prolonged hospitalization, multiple medical comorbidities, including hypoxic respiratory failure: Residual impaired mobility, self-cares, swallowing function. Full PT, OT, SECURITY ASSISTANT assessments and therapies to address mobility, self care, swallowing function. 24 hour rehab nursing for self care deficits ?? 2. Nutrition: Now on dysphagia level 3 diet. Nutrition consult 3. Pneumonia/MSSA bacteremia with acute hypoxic respiratory failure/ARDS: Clinically improving, decannulated and maintaining oxygen saturations but may need supplemental oxygen with increasing activity. Internal medicine consultation Continue duo nebs twice daily Maintain guaifenesin 600 mg twice daily 4. Duodenal ulcer/upper GI bleed: Continue Protonix 40 mg daily. 5. Acute kidney injury: Creatinine has normalized we will monitor overall fluid intake, avoid nephrotoxic agents 6. Anemia: Multifactorial including acute care illness, GI bleed. Counts have been relatively stable but continue to monitor intermittently 7. Sacral ulcer: Unstageable. Followed by wound care nursing. Continue topical treatment and pressure relief. 8. Atrial fibrillation: Back in sinus rhythm. Continue metoprolol. Currently not on anticoagulationgiven recent GI bleed and low CHADS score as documented by medicine. 9. Rash: Appears to be a drug rash. Treat symptomatically. rx prednisone? DVT Prophylaxis: Pharmacologic Prophylaxis: Enoxaparin (Lovenox) 40 mg SQ daily Eladio Otero MD 04/25/2019 14:36 * Shanon Reyes MD - 04/25/2019 1052 EDT MEDICINE FOLLOW-UP Date of service: 04/25/2019 PCP: Provider None CHIEF COMPLAINT: MSSA pneumonia and staph aureus septic shock, acute hypoxic respiratory failure and acute respiratory distress syndrome, sp tracheostomy, upper gastrointestinal hemorrhage from multifocal ulcer, severe protein calorie malnutrition, deep tissue injury SUBJECTIVE: Rash on buttocks is better today. Rash on torso, arms and legs unchanged. He is turning himself regularly. No documented fevers. No diarrhea. No pain. OBJECTIVE: Patient Vitals for the past 48 hrs: BP Pulse Heart Rate Resp Temp SpO2 O2 Device 04/25/19 0603 110/64 78 -- 14 37 ??C (98.6 ??F) -- -- 04/24/19 2026 115/68 -- 84 BPM -- -- -- -- 04/24/19 0556 112/69 86 -- 16 36.8 ??C (98.2 ??F) -- -- 04/23/19 2100 113/72 86 -- -- -- -- -- 04/23/19 1339 112/70 89 -- 24 37.5 ??C (99.5 ??F) 96 % None Vital signs are stable and the patient is afebrile. Flat affect. Still with airleak at the trach site with speaking. He is thin and frail appearing. Temporal wasting noted, legs very thin. No distress. Respirations even, unlabored - lungs diminished. Irregular rhythm. Motor/sensory exam stable. Dry flakey skin on arms, torso - rash red, raised and confluent. Redness on buttocks looks better. Pressure injury with fibrinous slough in the bottom of the wound, slowly closing. MEDICATIONS: cholecalciferol (Vitamin D3) 1,000 Units oral QHS collagenase topical DAILY enoxaparin 40 mg subcutaneous DAILY ferrous sulfate 324 mg oral DAILY (BREAKFAST) guaiFENesin 600 mg oral BID melatonin 5 mg oral QHS metoprolol 12.5 mg oral BID miconazole topical BID miconazole topical BID miconazole topical BID miconazole topical BID mometasone-formoterol 2 Puff inhalation BID Multivitamins with Minerals 1 Tab oral DAILY pantoprazole 40 mg oral QHS predniSONE 10 mg oral DAILY senna 2 Tab oral QHS tiotropium 18 mcg inhalation DAILY Wool Alcoh-Min Pco-Hoodp-Uroid topical BID acetaminophen 650 mg Q4H PRN albuterol 2.5 mg Q4H PRN diphenhydrAMINE 25 mg Q6H PRN LABS: Last labs: Labs: I have personally reviewed CBC: Lab Results Component Value Date WBC 10.01 04/22/2019 RBC 2.95 (L) 04/22/2019 HGB 8.3 (L) 04/22/2019 HCT 26.3 (L) 04/22/2019 MCV 89 04/22/2019 MCH 28.1 04/22/2019 MCHC 31.6 (L) 04/22/2019 PLT 293 04/22/2019 NEUTROABS 8.90 (H) 03/20/2019 BMP: Lab Results Component Value Date NA 135 (L) 04/22/2019 K 4.4 04/22/2019 CL 105 04/22/2019 CO2 23 04/22/2019 BUN 66 (H) 03/24/2019 CREATININE 0.75 04/22/2019 GLUCOSEFINGE 126 (H) 04/07/2019 CALCIUM 8.8 04/22/2019 MG 1.8 04/22/2019 PHOS 4.7 (H) 04/22/2019 LABALBU 2.2 (L) 03/17/2019 ASSESSMENT/PLAN: Rash - looks like a drug reaction and some secondary yeast on buttocks. Buttocks look better today: Wound care per Viktoria into the pressure injury area Miconazole powder and ointment to buttocks as well as rash on body He got a dose of pred this am Tracheostomy - cont to monitor site for healing Pressure injury - as per Viktoria B Upper GI hemorrhage Daily PPI - already completed bid ppi course Avoid nsaids Quit smoking Dysphagia - related to tracheostomy complicated by overall frailty, weakness and debility from prolonged critical illness SECURITY ASSISTANT re-eval yesterday - cont modified diet D3 right now with thins Mixed iron deficiency and chronic inflammation anemia + frailty Iron tabs qd Nutrition consult AF - no OAC Cont metoprolol 12.5 bid Emphysema, severe Tobacco cessation Dulera + spireva scheduled + albuterol prn Suspect he runs 88-90% normally given the extent of disease OP pulmonary and pulmonary rehab O2 as needed for sats less than 88% but no higher than 93% Cont to encourage frequent IS and acapella The patient is medically stable and tolerating the present level of the rehab program. The patient is to continue in the rehabilitation program. DVT ppx: enox 40 Shanon Reyes MD * Elizabeth Licea, PT - 04/25/2019 0834 EDT [facility] Rehabilitation Therapy [facility]patient [facility] Physical Therapy Encounter Note Date of Service: 04/25/2019 Subjective/Objective Subjective Reports lowest he gets on the WHEELER scale is a 1/10 when laying down resting. Pt asking if he can have rest breaks between therapy sessions. Objective Start time: 0900 Total Therapy Minutes: 50 minute(s) *Ended session 10 min early to give rest break between PT and OT. Plan to make up time in PM, pt agrees. Interventions completed today: Therapeutic exercise (1): Supine therex: Handout provided with pt to perform 3x/day. Pt performs 2x10 B -Hip/knee flexion -Hip IR/ER -Quad sets -Bridging -Hip abd/add *WHEELER 4-5/10 Therapeutic activities (2): Functional mobility: With VS assessment throughout to promote activity tolerance and functional endurance. HR irregular throughout. On room air throughout. -Start of session (supine): HR 92, BP 110/64, spO2 98% -Supine > sit with flat bed, no rails, S -Sitting: HR 111, spO2 99% -Sit <> stand with min CGA of 1, VC for hand placement throughout. -Walk 20ft with RW and min CGA of 1, W/C follow of another. spO2 down to 84% (questionable reading), WHEELER scale 8/10 -Seated rest x~4min: spO2 90-92%, WHEELER 4-5/10 -Walk 14ft (see gait speed assessment) spO2 91-93%, WHEELER 8/10, RR 26 -Seated rest x~5min. Noted expansion of lower rib cage only. Segmental breathing with tactile feedback to encourage expansion of upper lobes anteriorly. spO2 93-94%, WHEELER 4/10 -Walk 12ft as above. spO2 91-93%, WHEELER 8/10 -Seated rest initially spO2 89-91%, up to 91-92%, HR 100 (irreg), BP 109/80 Gait Speed^ (meters/second) 0.05 meters/sec. This test assesses walking speed over an established distance. Age/gender normative values (Gila, 2011) Age Gender 95% CI meters/second 20-29 Male 1.21-1.47 20-29 Female 1.08-1.49 30-39 Male 1.31-1.53 30-39 Female 1.25-1.41 40-49 Male 1.27-1.47 40-49 Female 1.22-1.42 50-59 Male 1.12-1.49 50-59 Female 1.10-1.55 60-69 Male 1.03-1.59 60-69 Female 0.97-1.45 70-79 Male 0.95-1.41 70-79 Female 0.83-1.50 80-89 Male 0.61-1.22 80-89 Female 0.56-1.17 Patients (age 65 and older) who are hospitalized with a gait speed < 0.4 meters/second had significantly decreased odds of discharge to home compared to patients with a gait speed > 0.6 meters/second. (Ostir, 2012) The minimal clinically important difference (MCID) for community-dwelling elderly is 0.05 to 0.13 meters/second. (Perradha, 2006) 2nd Session Time: Start time: 1430 Total Therapy Minutes: 37 minutes Interventions completed today: Therapeutic activities (2): Transfers: Performs stand step transfers with RW and min CGA of 1 multiple times throughout sessionfrom W/C <> mat, bed and moveo. Performs without RW x1 with min A of 1 for attempt on BBS, reports he is SOB (WHEELER scale 7/10 with spO2 at 94% on RA) and declines doing BBS at this time. Supine <> sit: On moveo with S sit to supine, min A supine to sit. On bed with S. Functional strength/activity tolerance training: -On Moveo at 15 deg angle with VS assessed throughout. Start: spO2 95% on RA Performs 4 sets of 5 reps on Moveo spO2 from 95%-97% on RA throughout except after first set at 87% on RA. Up to 97% with 1L, then able to remove 1L without additional episodes of desaturation. Patient/Family Education: Topic: Activity modifications to promote improved activity tolerance as above Learner: patient Method: verbal, demonstration and tactile cueing Barriers to Learning: none noted Outcome: needs practice, verbalized understanding and returned demonstration Team Communication: With OT re: pt status. With RN and MD re: O2 desaturation with activity. Assessment/Plan Assessment Pt highly motivated to participate in session but limited by O2 desaturation, shortness of breath, and fatigue which is consistent with medical status at this time. He is eager to perform supine HEP outside of therapies, but will benefit from rest breaks between therapies to maximize gains. WHEELER scale rating not always consistent with spO2 reading and will continue to monitor spO2 with all activity at this time. Pt's gait speed is significantly below age and gender matched norms and indicates heis not a functional ambulator at this time. Plan Activity tolerance training with Segmental breathing, Activity pacing, Pursed lip breathing Functional strength and endurance training Gait and stairs 6MWT BBS HEP Primary Therapist: Contact information: Pager: [phone] Elizabeth Licea PT 04/25/2019 16:29 * Siomara Fung OT - 04/25/2019 0714 EDT Rehabilitation Therapies Inpatient Rehabilitation [facility] Occupational Therapy Encounter Note Date of Service: 04/25/2019 Subjective/Objective SUBJECTIVE: I'm feeling winded at the moment. re: pt's response when asked how he felt after standing at sink. OBJECTIVE: First Session Start time: 1000 Scheduled time: 4217-7491 Total Therapy Minutes: 60 minute(s) Interventions included: Self-Care/Home Management Therapeutic Exercise -Assessed pt's vitals at rest at start of session. BP: 115/83. O2: 98%. -Completed self care routine to focus on increased functional activity tolerance and independence with self care ?? Completed grooming routine with intervals of standing at sink. Pt able to make needs known in terms of fatigue level and need for rest breaks. ?? Pt stood to brush teeth. Opened/closed toothpaste with independence. ?? Pt washed face while standing. ?? Completed UB dressing while seated in wheelchair with supervision. Nursing arrived to apply cream to areas of rash on back. ?? Pt completed LB dressing with supervision. When pt stood to don pants to waist level, OT provided education on safe transfer techniques. Instructed pt to push up from arm rests when standing and to reach back for arm rests when lowering to chair to prevent crashing and injury to wound. ?? Monitored pt's O2 sats after self care routine after pt reported feeling short of breath. O2 sats were 95% post activity. -Reviewed RPE with patient and described possible scenarios for different ratings on the scale. ?? OT explained that the midrange of the scale is an appropriate rating for therapy activities in order to promote the just-right challenge. Explained that ratings around the 7 slim indicate the needfor a rest break. Pt verbalized understanding. -Completed gentle shoulder level AROM exercises to promote increased strength in BUE required for self care ?? Facilitated pt in gentle shoulder flexion and internal/external AROM exercises with pt report ofRPE of 410 Vital signs: See above Patient/Family Education: See above Second Session Start time: 1400 Scheduled time: 8517-3917 Total Therapy Minutes: 30 minute(s) Interventions included: Self-Care/Home Management Therapeutic Activities -Assessed pt's vitals at rest at start of session. BP: 113/63. HR: 81. O2: 96%. -Pt ambulated with rw, CGA x1 and wheelchair following from bed to hallway. Reported that he neededto use the bathroom at this time. -Completed toileting with a focus on increasing functional activity tolerance and independence withself care ?? Ambulatory toilet transfer with CGA x2. Min verbal cues to utilize grab bars and to slowly lowerto toilet. ?? Pt completed toilet hygiene with independence and clothing management with CGA x2. The Box and Blocks test was performed today to assess hand coordination. This test requires the patient to move as many 1 inch cubes from one side of the box to the other in one minute. Side Blocks Norm RIGHT Box & Blocks - Right (#): 47 68.4 LEFT Box & Blocks - Left (#): 46 67.4 The minimal clinical important difference (MCID) is 7 blocks for this test. Vital signs: Vital signs were monitored and were stable throughout occupational therapy session. See above. Patient/Family Education: Topic: Benefits of activity Role of OT Safety awareness Learner: patient Method: verbal Barriers to Learning: none noted Outcome: verbalized understanding Team Communication: With nursing re: dressing changes and rash ointment. Assessment/Plan ASSESSMENT: Pt tolerated therapy well today with good motivation to participate. Pt completed ADLs faily well, however required extended rest breaks to recover from SOB. This patient continues to present with fatigue, SOB, decreased standing balance, and fine motor control difficulties, all of which impact current level of occupational performance. The patient remains appropriate for skilled OT services at an acute rehab level to regain independence and functional mobility for ADL and IADL. PLAN: ?? Shower assessment ?? 9-hole peg ?? Energy conservation strategies ?? Complete grooming tasks while standing at sink Pager: [phone] ENEDINA ANNA, 04/25/2019, 15:11 * Eladio Otero MD - 04/24/2019 1258 EDT Physiatry Progress Note Admit Date: 04/23/2019 Hospital Day: LOS: 1 day Date of Service: 04/24/2019 Chief Complaint: Debility following respiratory failure Subjective: Rash continues and it is mildly. He is not appreciating significant shortness of breath. No lightheadedness, no GI complaints. No palpitations. Current Facility-Administered Medications: acetaminophen (TYLENOL) tablet 650 mg oral Q4H PRN albuterol (ACCUNEB) nebulizer solution 2.5 mg nebulization Q4H PRN cholecalciferol (Vitamin D3) tablet 1,000 Units oral QHS collagenase (SANTYL) ointment topical DAILY diphenhydrAMINE (BENADRYL) capsule 25 mg oral Q6H PRN enoxaparin (LOVENOX) injection 40 mg subcutaneous DAILY ferrous sulfate EC tablet 324 mg oral DAILY (BREAKFAST) guaiFENesin (MUCINEX) SR tablet 600 mg oral BID ipratropium-albuterol (DUONEB) 0.5 mg-3 mg(2.5 mg base)/3 mL nebulizer solution 3 mL nebulization BID melatonin tablet 5 mg oral QHS metoprolol (LOPRESSOR) tablet 12.5 mg oral BID miconazole (ALOE VESTA) 2 % ointment ointment topical BID miconazole (DESENEX) 2 % powder topical BID [START ON 04/25/2019] mometasone-formoterol (DULERA) 100-5 mcg/actuation inhaler 2 Puff inhalation BID Multivitamins with Minerals tablet 1 Tab oral DAILY nicotine (NICODERM CQ) 7 mg/24 hr patch 1 Patch transdermal DAILY pantoprazole (PROTONIX) tablet 40 mg oral QHS senna (SENOKOT) tablet 2 Tab oral QHS [START ON 04/25/2019] tiotropium (SPIRIVA) 18 mcg inhalation capsule 18 mcg inhalation DAILY Wool Alcoh-Min Mze-Pubgj-Jegqq (EUCERIN) cream topical BID Objective/Physical Exam: VS: Patient Vitals for the past 8 hrs: BP Pulse Resp Temp 04/24/19 0556 112/69 86 16 36.8 ??C (98.2 ??F) Pain: Patient Vitals for the past 8 hrs: Numeric Pain Level (Scale 1-10) 04/24/19 0718 0 Weight: Weight : 54 kg (119 lb) Glucose Readings (last 8 readings): No results for input(s): GLUCOSEFINGE in the last 72 hours. I&O: Intake/Output Summary (Last 24 hours) at 04/24/2019 1258 Last data filed at 04/24/2019 0241 Gross per 24 hour Intake -- Output 350 ml Net -350 ml Exam: Gen: Alert, pleasant, no distress HEENT: Head: Normocephalic, no lesions, without obvious abnormality. Neck: Tracheostomy site is open with air leak. Wound edges are clean. Sacral ulceration, unstageable Skin: Sacral ulcer. Macular rash extending through the back, chest abdomen and the right thigh Cardiac: Cor RRR Pulmonary: Diffuse rhonchorous sounds but good air movement otherwise throughout. Abdomen: Bowel sounds present throughout, soft, nontender Musculoskeletal: no joint tenderness, deformity or swelling, no muscular tenderness noted, full range of motion without pain Neuro: Alert, oriented, thought content appropriate Affect: appropriate Language: speech fluent and spontaneous, intact naming and repetition Motor: Strength 4+/5 and symmetric without focal weakness Tone normal Reflexes: 1+ Sensation: No focal sensory loss Cerebellar: no tremors Labs: I have personally reviewed CBC: Lab Results Component Value Date WBC 10.01 04/22/2019 RBC 2.95 (L) 04/22/2019 HGB 8.3 (L) 04/22/2019 HCT 26.3 (L) 04/22/2019 MCV 89 04/22/2019 MCH 28.1 04/22/2019 MCHC 31.6 (L) 04/22/2019 PLT 293 04/22/2019 NEUTROABS 8.90 (H) 03/20/2019 BMP: Lab Results Component Value Date NA 135 (L) 04/22/2019 K 4.4 04/22/2019 CL 105 04/22/2019 CO2 23 04/22/2019 BUN 66 (H) 03/24/2019 CREATININE 0.75 04/22/2019 GLUCOSEFINGE 126 (H) 04/07/2019 CALCIUM 8.8 04/22/2019 MG 1.8 04/22/2019 PHOS 4.7 (H) 04/22/2019 LABALBU 2.2 (L) 03/17/2019 Assessment/Problems: (update problem list daily as appropriate) Patient Active Problem List Diagnosis Date Noted ??? Upper gastrointestinal bleed 04/18/2019 Priority: Medium ??? Septic shock ([facility]) 03/19/2019 Priority: Medium ??? (H)ARDS (adult respiratory distress syndrome) ([facility]) 03/19/2019 Priority: Medium ??? (H)SIRISHA (acute kidney injury) ([facility]) 03/19/2019 Priority: Medium ??? Anemia 03/19/2019 Priority: Medium ??? Thrombocytopenia ([facility]) 03/19/2019 Priority: Medium ??? Bacteremia 03/19/2019 Priority: Medium ??? Fever 03/19/2019 Priority: Medium ??? Encephalopathy 03/19/2019 Priority: Medium ??? (H)Atrial fibrillation with RVR ([facility]) 03/17/2019 Priority: Medium ??? (H)Acute respiratory failure with hypoxia ([facility]) 03/17/2019 Priority: Medium Plan: 1. Debility following prolonged hospitalization, multiple medical comorbidities, including hypoxic respiratory failure: Residual impaired mobility, self-cares, swallowing function. Full PT, OT, SECURITY ASSISTANT assessments and therapies to address mobility, self care, swallowing function. 24 hour rehab nursing for self care deficits ?? 2. Nutrition: Now on dysphagia level 3 diet. Nutrition consult 3. Pneumonia/MSSA bacteremia with acute hypoxic respiratory failure/ARDS: Clinically improving, decannulated and maintaining oxygen saturations but may need supplemental oxygen with increasing activity. Internal medicine consultation Continue duo nebs twice daily Maintain guaifenesin 600 mg twice daily 4. Duodenal ulcer/upper GI bleed: Continue Protonix 40 mg daily. 5. Acute kidney injury: Creatinine has normalized we will monitor overall fluid intake, avoid nephrotoxic agents 6. Anemia: Multifactorial including acute care illness, GI bleed. Counts have been relatively stable but continue to monitor intermittently 7. Sacral ulcer: Unstageable. Followed by wound care nursing. Continue topical treatment and pressure relief. 8. Atrial fibrillation: Back in sinus rhythm. Continue metoprolol. Currently not on anticoagulationgiven recent GI bleed and low CHADS score as documented by medicine. 9. Rash: Appears to be a drug rash. Treat symptomatically. And prescribed Benadryl for itching. ? DVT Prophylaxis: Pharmacologic Prophylaxis: Enoxaparin (Lovenox) 40 mg SQ daily Eladio Otero MD 04/24/2019 12:58 * Shanon Reyes MD - 04/24/2019 1037 EDT MEDICINE FOLLOW-UP Date of service: 04/24/2019 PCP: Doctor Unknown CHIEF COMPLAINT: MSSA pneumonia and staph aureus septic shock, acute hypoxic respiratory failure and acute respiratory distress syndrome, sp tracheostomy, upper gastrointestinal hemorrhage from multifocal ulcer, severe protein calorie malnutrition, deep tissue injury SUBJECTIVE: No real complaints. Stamina is low as noted by OT this am. No fever, chills, diarrhea. Appetite seems to be pretty good. Rash itchy in areas. OBJECTIVE: Patient Vitals for the past 48 hrs: BP Pulse Resp Temp SpO2 O2 Device 04/24/19 0556 112/69 86 16 36.8 ??C (98.2 ??F) -- -- 04/23/19 2100 113/72 86 -- -- -- -- 04/23/19 1339 112/70 89 24 37.5 ??C (99.5 ??F) 96 % None Vital signs are stable and the patient is afebrile. Flat affect. Blowby at the trach site with speaking. Physical exam is stable. No distress. Respirations even, unlabored. Motor/sensory exam stable. See note from Viktoria Farr for rash and pressure injury on buttocks. Dry flakey skin on arms, torso Raised, consolidated red rash all over torso, back, legs and upper arms. Left PICC site dressed Nicotine patch on left arm MEDICATIONS: cholecalciferol (Vitamin D3) 1,000 Units oral QHS collagenase topical DAILY enoxaparin 40 mg subcutaneous DAILY ferrous sulfate 324 mg oral DAILY (BREAKFAST) guaiFENesin 600 mg oral BID ipratropium-albuterol 3 mL nebulization BID melatonin 5 mg oral QHS metoprolol 12.5 mg oral BID miconazole topical BID miconazole topical BID Multivitamins with Minerals 1 Tab oral DAILY nicotine 1 Patch transdermal DAILY pantoprazole 40 mg oral QHS senna 2 Tab oral QHS Wool Alcoh-Min Xll-Spsrb-Hfbat topical BID acetaminophen 650 mg Q4H PRN albuterol 2.5 mg Q4H PRN LABS: Last labs: Labs: I have personally reviewed CBC: Lab Results Component Value Date WBC 10.01 04/22/2019 RBC 2.95 (L) 04/22/2019 HGB 8.3 (L) 04/22/2019 HCT 26.3 (L) 04/22/2019 MCV 89 04/22/2019 MCH 28.1 04/22/2019 MCHC 31.6 (L) 04/22/2019 PLT 293 04/22/2019 NEUTROABS 8.90 (H) 03/20/2019 BMP: Lab Results Component Value Date NA 135 (L) 04/22/2019 K 4.4 04/22/2019 CL 105 04/22/2019 CO2 23 04/22/2019 BUN 66 (H) 03/24/2019 CREATININE 0.75 04/22/2019 GLUCOSEFINGE 126 (H) 04/07/2019 CALCIUM 8.8 04/22/2019 MG 1.8 04/22/2019 PHOS 4.7 (H) 04/22/2019 LABALBU 2.2 (L) 03/17/2019 ASSESSMENT/PLAN: Rash - looks like a drug reaction and some secondary yeast on buttocks. For now: Wound care per Viktoria Miconazole powder and ointment to buttocks Eucerin bid to skin mostly for hydration and to treat dryness Tracheostomy - monitoring site for healing Pressure injury - as per Viktoria B Upper GI hemorrhage Daily PPI Avoid nsaids Quit smoking Dysphagia - related to tracheostomy complicated by overall frailty, weakness and debility from prolonged critical illness SECURITY ASSISTANT to re-eval On modified diet D3 right now with thins Mixed iron deficiency and chronic inflammation anemia Iron tabs qd Nutrition consult AF - no OAC Cont metoprolol 12.5 bid Emphysema, severe Tobacco cessation DC duonebs Dulera + spireva scheduled + albuterol prn Suspect he runs 88-90% normally given the extent of disease OP pulmonary and pulmonary rehab O2 as needed for sats less than 88% but no higher than 93% Cont to encourage frequent IS and acapella The patient is medically stable and tolerating the present level of the rehab program. The patient is to continue in the rehabilitation program. DVT ppx: enox 40 Shanon Reyes MD * Jody Whittington, [facility]-SECURITY ASSISTANT - 04/24/2019 0954 EDT Speech-Language Pathology Clinical Swallow Evaluation SECURITY ASSISTANT Diagnosis: Dysphagia, pharyngeal phase: Medical Diagnosis: MSSA pneumonia and staph aureus septic shock, acute hypoxic respiratory failure and acute respiratory distress syndrome, s/p tracheostomy Date of Onset: 03/17/2019 Date of Referral: 04/23/2019 Start Time: 1300 Total Therapy minutes: 30 minute(s) swallow eval SUBJECTIVE: It's gotten a lot better (regarding voice production s/p decannulation). OBJECTIVE: History: Patient is a??64-year-old male with no prior medical history although he had not seen a physician in some 10 years. ??He presented to [facility] on 03/17/2019 with approximately 2.5 weeks of fever, loss of appetite, weakness, fatigue and diarrhea. ??Work-up at [facility] revealed pneumonia/ARDS and renal failure, as well as atrial fibrillation with RVR. ??He was transferred to the [facility] on 03/17/2019 for acute hypoxic respiratory failure with ARDS, volume overload, COPD and hemodynamic instability. ??He had evidence of sepsis secondary to a leftlower lobe pneumonia and MSSA bacteremia. ?? On admission he was placed on Levophed and propofol, transition to ketamine secondary to hypotension. ??He was on Zosyn and azithromycin, and changed to ceftaroline as well as given vancomycin. ??Antibiotics were narrowed to nafcillin with Zosyn on 03/21/2019. ??On 03/20/2019 he did have some acute de compensation with concern of pulmonary embolism, was given heparin but developed bright red blood per rectum and of his orogastric tube. ??He had an acute blood loss anemia was transfused 3 units packed red blood cells and 1 unit platelets, started on pressors. ??EGD is revealed diffuse stomach andduodenal ulcerations. ??CT scan of the abdomen pelvis showed the jejunum being edematous and thicken ed, there was marked gallbladder distention without radiopaque cholelithiasis or evidence of gallbladder wall thickening. ??There was a left adrenal nodule favoring adenoma. ??TIESHA showed no acute findings during his stay. ??The difficulty with weaning from mechanical ventilation and a tracheostomy tube was placed on 03/28/2019 and was additionally weaned from pressors. ??CT scan of the chest with multifocal pneumonia within both lungs, bilateral parapneumonic effusions, moderate aortic great vessel atherosclerotic calcifications and mucous in the right lower lobe airways. He again had an anemia and on 04/07/2019 received an additional unit of packed red blood cells. ??Hewas transitioned to the floor, but on 04/12/2019 developed hypoxia again, and was transferred back to the medical intensive care unit. ?? He again was stabilized and moved to the floors. Follow-up imaging showed slight progression of multifocal regions of airspace disease in the lungs and small bilateral pleural effusions. ??He had required continue supplemental oxygen up to 5 L last night with oxygen desaturation down to 86%. He subsequently was de cannulated and tolerated this well and nasogastric tube removed with patient takinga dysphagia level 3 diet well. He has been seen by all therapy modalities and actively participating, being independent with all mobility and self-cares prior to his hospitalization. Given functionallimitations, he was evaluated and determined to be an appropriate candidate for acute inpatient rehabilitation.? This patient's current status is similar to the pre-admission screening and is appropriate for inpatient rehabilitation admission. PMH: Past Medical History: Diagnosis Date ??? ARDS (adult respiratory distress syndrome) ([facility]) Current Diet: Dysphagia Diet Level: 3 (soft, easy to chew, single consistency) and Thin liquids Diet prior to admission: Regular texture with thin liquids at baseline Current Medications: Current Facility-Administered Medications Medication Dose Route Frequency Provider Last Rate Last Dose ??? acetaminophen (TYLENOL) tablet 650 mg 650 mg oral Q4H PRN Eladio Otero MD ??? albuterol (ACCUNEB) nebulizer solution 2.5 mg 2.5 mg nebulization Q4H PRN Eladio Otero MD ??? cholecalciferol (Vitamin D3) tablet 1,000 Units 1,000 Units oral QHS Shanon Reyes MD 1,000 Units at 04/23/192057 ??? collagenase (SANTYL) ointment topical DAILY Eladio Otero MD ??? diphenhydrAMINE (BENADRYL) capsule 25 mg 25 mg oral Q6H PRN Eladio Otero MD ??? enoxaparin (LOVENOX) injection 40 mg 40 mg subcutaneous DAILY Eladio Otero MD 40 mg at 04/24/19817 ??? ferrous sulfate EC tablet 324 mg 324 mg oral DAILY (BREAKFAST) Eladio Otero MD 324 mg at 04/24/19816 ??? guaiFENesin (MUCINEX) SR tablet 600 mg 600 mg oral BID Eladio Otero MD 600 mg at 04/24/19816 ??? ipratropium-albuterol (DUONEB) 0.5 mg-3 mg(2.5 mg base)/3 mL nebulizer solution 3 mL 3 mL nebulization BID Shanon Reyes MD 3 mL at 04/24/19817 ??? melatonin tablet 5 mg 5 mg oral QHS Eladio Otero MD 5 mg at 04/23/192057 ??? metoprolol (LOPRESSOR) tablet 12.5 mg 12.5 mg oral BID Eladio Otero MD 12.5 mg at 04/24/19816 ??? miconazole (ALOE VESTA) 2 % ointment ointment topical BID Shanon Reyes MD ??? miconazole (DESENEX) 2 % powder topical BID Shanon Reyes MD ??? [START ON 04/25/2019] mometasone-formoterol (DULERA) 100-5 mcg/actuation inhaler 2 Puff 2 Puff inhalation BID Shanon Reyes MD ??? Multivitamins with Minerals tablet 1 Tab 1 Tab oral DAILY Eladio Otero MD 1 Tab at ??? nicotine (NICODERM CQ) 7 mg/24 hr patch 1 Patch 1 Patch transdermal DAILY Eladio Otero MD 1Patch at 04/24/19816 ??? pantoprazole (PROTONIX) tablet 40 mg 40 mg oral QHS Shanon Reyes MD 40 mg at 04/23/192057 ??? senna (SENOKOT) tablet 2 Tab 2 Tab oral [facility] Eladio Otero MD ??? [START ON 04/25/2019] tiotropium (SPIRIVA) 18 mcg inhalation capsule 18 mcg 18 mcg inhalation DAILY Shanon Reyes MD ??? Wool Alcoh-Min Xzf-Gwvog-Lnoxe (EUCERIN) cream topical BID Shanon Reyes MD Current Status: Cognitive Status: Patient currently presents with cognitive- linguistic functioning that is within functional limits. Patient was alert and cooperative during evaluation. Respiratory Status: Patient decannulated on 04/19/2019. Audible air escape at stoma site. Supplemental oxygen: 1-4 lpm, adjust flow rate to maintain > 89% spO2. Clinical Swallow Evaluation: Patient/Family: consented to completing the clinical bedside swallow exam. Oral Peripheral Motor Exam: Face: Face was symmetrical with adequate strength and range of motion. Gaunt-appearing. Lips: Adequate labial strength and range of motion. Tongue: Adequate lingual strength, range of motion and coordination. Velum: Symmetrical soft palate elevation during phonation attempts. Dentition: Adequate dentition. Missing some posterior molars. Laryngeal Excursion: Within functional limits with anterior tipping upon palpation. Stoma site covered by bandage. Speech Intelligibility: Speech with functional intelligibility. No deficits noted. Vocal Quality: Patient presents with a mildly rough vocal quality. Cough: Patient presents with a strong, non-productive cough. Positioning: Seen at bedside for evaluation. Head of bed elevated to tolerance. Consistencies Tested: was assessed with thin liquid, pudding and solid consistencies (sofía cracker). Methods of Delivery: Patient was able to self administer all items without SECURITY ASSISTANT assistance using a spoon, cup and straw. Oral Phase Findings: Oral phase of swallowing is within normal limits. Patient presents with adequate oral containment, functional chewing and appropriate bolus transport for all consistencies tested.Pharyngeal Phase: Patient presents with pharyngeal phase deficits as suggested by multiple swallowswith liquids and solids and signs/symptoms suggestive of laryngeal penetration/aspiration characterized by coughing after the swallow with thin liquids. Esophageal Phase: Patient did not present withany overt s/s suggestive of esophageal phase swallow difficulty. Compensatory Strategies: The following compensatory swallow strategies were attempted during today's evaluation: Compensatory strategy of a breath hold strategy presented as effective during clinicalswallow evaluation. Patient/Family Education/Training: Topic: Swallow Function Patient/Family education and training was completed today including the role of Speech-Language Pathology, results of today's exam/recommendations, anatomy and physiology of the swallowing mechanism,pre vs. post surgical anatomical changes of the patient's Swallowing and rehab goals. Learner: patient Method of Education: Verbal, Written and Demonstration Barriers to Learning/Education: none Patient: was able to verbalize understanding of information, was able to return demonstration and needs further instruction and education Family: was not present ASSESSMENT/CLINICAL IMPRESSIONS: is a 64 y.o. male admitted with pneumonia, s/p tracheostomy (03/28/2019) and decannulation(04/19/2019). A clinical swallow evaluation was completed today by Speech Language Pathology secondary to concerns for oropharyngeal dysphagia, and risk of laryngeal penetration/aspiration. Patient currently presents with a mild-moderate pharyngeal phase dysphagia characterized by multiple swallowswith all textures presented and a cough x1 with thin liquids. Patient demonstrates audible air escape at stoma site (covered with dressing) while chewing, swallowing and talking. Etiology of dysphagia is mechanical and likely secondary to altered pressures and sensation related to unhealed stoma site, tracheostomy placement and compounded by his overall deconditioned state. Patient remains at increased risk of aspiration at this time. Compensatory strategies of breath hold technique with liquids and controlled rate/size of bolus appear effective in decreasing risk of aspiration. Prognosis forimprovement in swallow function is judged to be good at this time secondary to expected improvements. Anticipate that as patient gets stronger overall through acute rehab, his swallowing function andphysiology will continue to improve. Functional Communication Measures ([place] [employer]- [employer], 2002). The Functional Communication Measures (FCM???s) are a series of 7 point rating scales, ranging fromleast functional (Level 1) to most functional (Level 7). They have been developed by SUE to describe different aspects of patient???s functional communication and swallowing abilities over the course of SECURITY ASSISTANT intervention. ?? Swallowing Level 4: Swallowing is safe, but usually requires moderate cues to use compensatory strategies, and/or the individual has moderate diet restrictions and/or still requires tube feeding and/or oral supplements. GOALS: Slab Grinder Goal: Swallowing Level 7: Individual's ability to eat independently is not limited by swallow function. Swallowing is safe and efficient for all consistencies. Compensatory strategies are effectively used when needed. Short Term Goal: Swallow Function: Goal #1: Patient will demonstrate tolerance of thin liquids as evidenced by absence of overt s/s ofpenetration/aspiration on 10/10 trials with independent use of compensatory strategies. Goal #2: Patient will demonstrate readiness for diet advancement to Dysphagia 4 diet texture as evidenced by adequate oral clearance and absence of overt s/s of penetration/aspiration on 10 trialswith independent use of compensatory strategies. PLANS/RECOMMENDATIONS: Patient will continue to benefit for further SECURITY ASSISTANT intervention in this setting to address dysphagia management and intervention needs. He will be seen 2-3x/week @ 30-minutes. As a result of the dysphagia consultation, the following recommendations are provided to maximize swallow function and to minimize risk of dysphagia and its ramifications: ?? DIET: The patient may continue with current diet texture of Dysphagia 3 with thin liquids. Continue with Mighty shakes and magic cup for supplements. Continue higher calorie, nutrient dense foods given high nutrition needs. MEDICATIONS: Whole or crushed in applesauce with a liquid wash, or whole [id number]-time with a liquid wash (per patient preference). ?? FEEDING/EATING STRATEGIES: Patient may eat independently. Patient should eat in a low stimulation environment to increase attention to meal time. When eating, patient should be upright at 90 degrees as tolerated. Patient should take small, single sips of thin liquid. Patient should implement breath hold strategy when drinking. Patient may use a straw when drinking liquids. Patient should alternate liquids and solids during meal time. Please verbally cue patient to eat at a slower pace. Stop eating and alert SECURITY ASSISTANT if patient demonstrates poor tolerance. Jody Whittington CCC-SECURITY ASSISTANT 04/24/2019 14:00 * Valerie Correa - 04/24/2019 0920 EDT Rehab. Case Management Assessment & Initial Discharge Plan Met with patient at bedside to review role of caseworker intake and planning for transition home during the Rehabilitation phase. Working Diagnosis/Presenting Problem: Patient is 64-year-old male who presented at [facility] on 03/17/2019 with pneumonia and ARDS, renal failure and atrial fibrillation with RVR and subsequently transferred to [facility] on 03/17/2019 for acute hypoxic respiratory failure with ARDS, volume overload, COPD and hemodynamic instability. Living Arrangements: Patient lives alone in a 2 story home and there is one step onto the front porch and no railing. The bedroom is located on the first floor and the bathroom is on the second floor. There is a full set of stairs to the second level. Patient may live with Britt S/O who lives across the street and her home is all one level with 3steps into the home with a railing. Patient address has been updated with the registration department and he lives at [address] in [place], [place] [address] Lawanda Lyles lives across the street form patient at [address] in [place], [place] Identified barriers: None at this time. Action to resolve barriers: None at this time Functional Status (psychosocial and physical): Level of functioning INFORMATION TECHNOLOGY TECHNICIAN: Patient was independent and worked for [employer] Current level of functioning: Therapy Team assessments are underway and patient is able to communicate his needs. Communication needs: Patient is able to communicate his needs. Family functioning: S/O Lawanda is the primary support for patient and there is one brother, Jean who lives in the [place] Substance Abuse, (F/U if indicated): No Smoking status, (F/U if indicated):Patient is currently using a nicotine patch and does not want toresume smoking. Behavioral Health Needs: Patient states that he does have some anxiety. Social Supports: First contact: (name and #) Britt Rafal at [phone]. If 24/7 indicated, who would provide; what level of assist can they provide:Significant other able to provide some support but unable to provide 24/7 as she has recently had surgery and unable to do any lifting. Identified caregiver: Britt Rafal Verified: Yes, however, Britt is unable to do any lifting and Britt will be away for three weeks in [place] beginning June 19. Community Resources: PCP: Patient had not seen a PCP for 10 years. (last time seen) Patient will need to identify a PCP as he does not currently have one and CM will work to identify a PCP for patient hopefully in [place] Pharmacy/location: [facility] in [place], [place]. Consent for d/c meds to be filled at [facility] Pharmacy? Yes Patient chose [facility] for DME Pt. chose [facility] if home health services indicated Pt. chose if outpatient services indicated. None- Not chosen at this time. MOW: None Medic Alert System: None CFC/TBI Waiver? No Advanced Directives/DPOA: Significant other is Lawanda Lyles and she is the DPOA. Yes or No: Yes Action taken if no: N/A Cultural/Language/Spiritual Needs: Patient is a Worship. Insurance/Financial Needs: Current insurance coverage: Medicare effective February 2019 and Patient Financial Services will arrange a time to meet with patient to provide support for supplemental benefits. An online application was completed for SSDI by Gabby Eldridge CM Resource Associate. If no insurance, action taken: Patient insurance is limited and Patient Commissary Helper, Davida Ly, met with patient on 04/24/19. Prescription coverage? No and patient requesting assistance to complete Medicare Part D. This CM contacted Chiki Alexandre at [phone] and spoke with Shiloh with [email or web address]. [employer] will have a person contact patient to assist with submitting a Medicare Part D application. LTC Medicaid indicated? No Disability needs assessed? Yes ST or LT disability through employer No Transportation Needs: Who will provide: Lawanda Lyles, S/O will be able to provide transportation. Transportation for outpatient f/u? S/O would be able to assist. Action taken to arrange: Not at this time. Patient Goals: To be as independent as possible in caring for myself. Assessment and Discharge Care Plan: The anticipated discharge plan is to return home and to receivesome support form Lawanda S/O and Home Health follow up with [facility] and follow up with a new PCP. Patient is not planning to return to work. Case Management will continue to provide care coordination for discharge planning and for transition home. VALERIE CORREA RN Case Manager (Orienting with Ange Jovel RN Case Manager) * Elizabeth Licea, PT - 04/24/2019 0852 EDT [facility] Rehabilitation Therapy Inpatient [facility] Physical Therapy Initial Evaluation Note Date of Service:04/24/2019 Reason for Referral: Evaluate and Treat Precautions: Limitations of treatment: CPR: withhold Intubation/Mechanical ventilation: provide Medication for arrhythmia: provide Level of Risk: A Diet Dysphagia- stage 3, thin liquids, one food and one fluid consistency Activity as tolerated O2 Therapy: 1-4 lpm, adjust flow rate to maintain > 89% spO2 SUBJECTIVE: Pt tearful stating I'm rosita to be here really Pt goals: To be independent in this room. Go to the bathroom. Dress myself Pain: No pain reported during the interview. OBJECTIVE: Patient Profile: Patient is a 64 y.o. male admitted on 04/23/2019 secondary to debility following pneumonia complicated by sepsis, ARDS, renal failure, hemodynamic instability, COPD and Afib with RVR. The patient lives at [address] [place] [address] History of present illness: Per Dr. Otero's H&P dated 04/23/19: Patient is a??64-year-old male with no prior medical history although he had not seen a physician in some 10 years. ??He presented to [facility] on 03/17/2019 with approximately 2.5 weeks of fever, loss of appetite, weakness,fatigue and diarrhea. ??Work-up at [facility] revealed pneumonia/ARDS and renal failure, as well as atrial fibrillation with RVR. ??[facility] failure with ARDS, volume overload, COPD and hemodynamicinstability. ??He had evidence of sepsis secondary to a left lower lobe pneumonia and MSSA bacteremia. ?? On admission he was placed on Levophed and propofol, transition to ketamine secondary to hypotension. ??He was on Zosyn and azithromycin, and changed to ceftaroline as well as given vancomycin. ??Antibiotics were narrowed to nafcillin with Zosyn on 03/21/2019. ??On 03/20/2019 he did have some acute de compensation with concern of pulmonary embolism, was given heparin but developed bright red blood per rectum and of his orogastric tube. ??He had an acute blood loss anemia was transfused 3 units packed red blood cells and 1 unit platelets, started on pressors. ??EGD is revealed diffuse stomach andduodenal ulcerations. ??CT scan of the abdomen pelvis showed the jejunum being edematous and thicken ed, there was marked gallbladder distention without radiopaque cholelithiasis or evidence of gallbladder wall thickening. ??There was a left adrenal nodule favoring adenoma. ??TIESHA showed no acute findings during his stay. ??The difficulty with weaning from mechanical ventilation and a tracheostomy tube was placed on 03/28/2019 and was additionally weaned from pressors. ??CT scan of the chest with multifocal pneumonia within both lungs, bilateral parapneumonic effusions, moderate aortic great vessel atherosclerotic calcifications and mucous in the right lower lobe airways. He again had an anemia and on 04/07/2019 received an additional unit of packed red blood cells. ??Hewas transitioned to the floor, but on 04/12/2019 developed hypoxia again, and was transferred back to the medical intensive care unit. ?? He again was stabilized and moved to the floors. Follow-up imaging showed slight progression of multifocal regions of airspace disease in the lungs and small bilateral pleural effusions. ??He had required continue supplemental oxygen up to 5 L last night with oxygen desaturation down to 86%. He subsequently was de cannulated and tolerated this well and nasogastric tube removed with patient takinga dysphagia level 3 diet well. He has been seen by all therapy modalities and actively participating, being independent with all mobility and self-cares prior to his hospitalization. Given functionallimitations, he was evaluated and determined to be an appropriate candidate for acute inpatient rehabilitation.? This patient's current status is similar to the pre-admission screening and is appropriate for inpatient rehabilitation admission. Home Environment: Lives: alone, will be staying with his girlfriend (Lawanda) initially Caregiver Support: 24-hour assist from girlfriend but she has medical issues and is limited in the physical assist she can provide Equipment Available: None Home Environment: house Home Layout: Multi-level. Entry Stairs: 1 without rails onto front porch Interior Stairs: full flight with unilateral rail Bedroom: Downstairs Bathroom: Upstairs Lawanda's house: Single level home with 3 BHAVANI, need to clarify Prior Level of Function: Independent Services prior to admission: None Work/Leisure: Working full-time in [place]. Reports he will not be working anymore, was planning on retiring next summer. Enjoys music, dancing, woodworking. Medical/Surgical History: Current: Patient Active Problem List Diagnosis ??? Atrial fibrillation with RVR (HCC-CMS) ??? Acute respiratory failure with hypoxia (HCC-CMS) ??? Septic shock (HCC-CMS) ??? ARDS (adult respiratory distress syndrome) (HCC-CMS) ??? SIRISHA (acute kidney injury) (HCC-CMS) ??? Anemia ??? Thrombocytopenia (HCC-CMS) ??? Bacteremia ??? Fever ??? Encephalopathy ??? Upper gastrointestinal bleed Past: Past Medical History: Diagnosis Date ??? ARDS (adult respiratory distress syndrome) (HCC-CMS) Past Surgical History: Procedure Laterality Date ??? TRACHEOSTOMY Medications: Medications reviewed Current Facility-Administered Medications: acetaminophen (TYLENOL) tablet 650 mg oral Q4H PRN albuterol (ACCUNEB) nebulizer solution 2.5 mg nebulization Q4H PRN cholecalciferol (Vitamin D3) tablet 1,000 Units oral QHS collagenase (SANTYL) ointment topical DAILY diphenhydrAMINE (BENADRYL) capsule 25 mg oral Q6H PRN enoxaparin (LOVENOX) injection 40 mg subcutaneous DAILY ferrous sulfate EC tablet 324 mg oral DAILY (BREAKFAST) guaiFENesin (MUCINEX) SR tablet 600 mg oral BID ipratropium-albuterol (DUONEB) 0.5 mg-3 mg(2.5 mg base)/3 mL nebulizer solution 3 mL nebulization BID melatonin tablet 5 mg oral QHS metoprolol (LOPRESSOR) tablet 12.5 mg oral BID miconazole (ALOE VESTA) 2 % ointment ointment topical BID miconazole (DESENEX) 2 % powder topical BID [START ON 04/25/2019] mometasone-formoterol (DULERA) 100-5 mcg/actuation inhaler 2 Puff inhalation BID Multivitamins with Minerals tablet 1 Tab oral DAILY nicotine (NICODERM CQ) 7 mg/24 hr patch 1 Patch transdermal DAILY pantoprazole (PROTONIX) tablet 40 mg oral QHS senna (SENOKOT) tablet 2 Tab oral QHS [START ON 04/25/2019] tiotropium (SPIRIVA) 18 mcg inhalation capsule 18 mcg inhalation DAILY Wool Alcoh-Min Gvx-Lxmhz-Zizdk (EUCERIN) cream topical BID Arousal, Attention, and Cognition: Alert Oriented to Person, Place and Time Communication: Able to make needs known. Hoarse, breathy/muffled voice Cognition: Able to follow single and multi-step commands Motivation: Fully willing to participate in therapy today. Cardiopulmonary: Vital Signs: Activity Heart rate (bpm) (manual) Blood Pressure (dinamap) (mmHg) Respiratory rate (breaths/min) Oxygen Sat/ Fractions of inspired Oxygen SPO2/FIO2 % Start (supine) 84 (irreg) 107/61 24 (shallow) 98% on room air (RA) During (sitting EOB) 84 (irreg) - - 87% (RA) then coughs and is at 94% During (sitting EOB post MMT) - - - 93-96% (RA) During (sitting in W/C post transfer) 91 (irreg) 99/60 (MAP 75) (asymptomatic) - 96% (RA) During (standing post walk) - - - 91-92% (RA) During (sitting post W/C propulsion) - - - 91-93% (RA) During (sitting post 5xSTS) - - - 85% (RA) <1min with 2L at 93% End of session (supine) 78 (irreg) 115/73 - 95-98% (RA) Breath sounds: Absent B bases. Crackles at L upper and middle lobes. Cough: Moderate wheezing/productive cough Integumentary/Anthropometric Characteristics: Palpation/Observation: -Cachectic -Tracheostomy site covered, unclosed -LUE PICC -Rash on R upper arm, stomach, back, and LEs (MD aware) -Distended rib cage Posture: Forward head and Protracted shoulders Height: Height: 181.6 cm (71.5) Weight: Weight : 54 kg (119 lb) Range of Motion and Joint Integrity: Active Range of Motion: Within normal limits except as noted Upper Quarter: Left Upper Extremity: Right Upper Extremity: Cervical Spine: Lower Quarter: B knees lacking ~5 deg knee extension with hard end feel Left Lower Extremity: Right Lower Extremity: Lumbar Spine: Muscle Performance: Strength: Upper Quarter: UE MMT Right Left Shoulder flexion 4/5 3+/5 Shoulder abduction - - Elbow flexion 4/5 3+/5 Elbow extension 4/5 4/5 Wrist extension - - Wrist flexion - - Installation Technician strength Moderate Moderate Cervical Spine: NE Lower Quarter: LE MMT Right Left Hip flexion 3+/5 3+/5 Hip abduction (modified in sitting) Able to hold against mod resistance Able to hold against mod resistance Hip adduction (modified in sitting) Able to hold against mod resistance Able to hold against mod resistance Knee extension 4/5 4/5 Knee flexion - - Ankle DF 3+/5 3+/5 Ankle PF - - Great toe extension 3+/5 3+/5 Lumbar Spine: NE Sensation, Reflexes, and Nerve Integrity: Light Touch Sensation: Denies changes in sensation. No deficits noted in function. Proprioception: NE Neuromotor Function/Development: No problems noted Balance, Mobility, and Gait: Balance: Sitting Balance Static: Supervision due to possible desaturation. Dynamic: Supervision due to possible desaturation. Standing balance Static: Stands ~10 seconds with no UE support and min CGA of 1. Dynamic: Requires BUEs on RW and min CGA of 1 to ambulate. Mobility: Bed Mobility: Roll Left and Right - Tasks involve the ability to roll from lying on back to left and right side, and return to lying on back Assistance Needed: Independent Sit to Lying - Task involves the ability to move from sitting on side of bed to lying flat on the bed Bed Options/Device: Flat bed;No rails Assistance Needed: Supervision Lying to Sitting on Side of Bed - The ability to safely move from lying on the back to sitting on the side of the bed with feet flat on the floor, and with no back support Bed Options/Device: Flat bed;No rails Assistance Needed: Supervision Sit to Stand - The ability to safely come to a standing position from sitting in a chair or on the side of the bed Assistance Needed: Physical assistance;Adaptive equipment;Verbal cues Physical Assistance Level: Less than 25% Transfers: Chair/[id number]-sk-[id number] Transfer - The ability to safely transfer to and from a bed to a chair (or wheelchair) Transfer Type: Stand-step Assistance Needed: Adaptive equipment;Physical assistance;Verbal cues Physical Assistance Level: Less than 25% Walk/Wheelchair Wheelchair Propulsion Distance patient was able to propel: 150ft Assistance Needed: Supervision Wheelchair parts management: S/VC for brake management, dependent for leg rest management Gait Distance patient ambulates: 11ft Assistance Needed: Adaptive equipment;Physical assistance Physical Assistance Level: Less than 25%;2 or more helpers Device used: 2 wheeled walker Gait deviations: Increased BUE WB on RW, increased accessory respiratory muscle use, decreased B step length and gait speed, discontinuous movement of RW with step to gait, WHEELER Self-Care, Home Management, Work, and Leisure: See OT Note Outcomes: 5 Times Sit to Stand Test^: Unable to perform sit <> stand from standard height chair with arms across chest. With UE use on chair arm rests: 28.31(with UE use) seconds. This test is a measure of functional lower limb muscle strength that may also be useful in quantifying functional change of transitional movements. Age normative values (Gila, 2007) Age Range for age norms 2 standard deviations around the mean (seconds) 19-49 3.6 - 8.8 50-59 4.1 - 10.1 60-69 1.9 - 14.3 70-79 3.8 - 16.2 80-89 3.8 - 17.4 Inability to arise one time from a chair with a seat height equal to subject's knee height without the use of upper extremities was found to be associated with a risk for falls in the elderly population (age 70 and older). (Waqas, 1989) An identified cut off score of 12 seconds could predict community-dwelling elderly (age 74 to 98) who have or are at risk of falls (66% sensitivity and 55% specificity). (Brandon, 2008) Informed Consent: The patient consented to the physical therapy evaluation. The patient agrees to and understands the physical therapy treatment plan and goals. Interventions Completed Today: Physical Therapy today at: 1030 ; 1430 Examination: 60 minutes Intervention: 30 minutes Total Therapy Minutes: 90 minute(s) 2nd Session Interventions completed today: Therapeutic activities (2): Overground ambulation: With focus on activity tolerance and functional endurance. VS assessed throughout, see below. Discussed and demonstrated pursed lip breathing and activity pacing which pt performs throughout with mod-max cueing. -VS Pre (supine): HR 88 (irreg), BP 116/66, spO2 97% (RA) -Ambulates 58ft with RW and min CGA of 1. W/C follow of another. HR ~115bpm, spO2 89-94% (on RA) (up to >/=91% with standing rest and pursed lip breathing). -Ambulates 24ft as above. spO2 >89% except for last 2 steps to 86%. Up to 91% with seated rest, then down to 88-89%. 89% on 1L. 92% on 3L. -Dependently brought back to room in W/C. spO2 95% on RA -VS post (supine): HR 86 (irreg), BP 117/71, spO2 97% on RA *Gait deviations as above Patient/Family Education: Topic: Anticipated LOS Learner: patient Method: verbal Barriers to Learning: none noted Outcome: verbalized understanding Team Communication: Updated whiteboard and sticky note with mobility status. With OT re: expected LOS. MD present for part of session. Upper Quarter Screen: UEs assessed as above. Pt is at increased risk for UE injury given increased use for functional mobility. Will continue to assess and consult OT as needed. ASSESSMENT: Patient presents to acute rehab with the physical therapy diagnosis of impaired mobility due to debility from pneumonia complicated by sepsis, ARDS, renal failure, hemodynamic instability, COPD and Afib with RVR. The patient???s primary impairments include impaired cardiopulmonary status, decreased strength, decreased functional strength and endurance, decreased activity tolerance, imp aired communication and impaired balance. These impairments contribute to functional limitations including requiring S for bed mobility and W/C propulsion and physical assist for sit <> stands,transfers, and ambualtion, which contribute to difficulty with participation in self care, work, and leisure activities. Pt is highly motivated to participate in therapy and increases ambulation distances with focus on pursed lip breathing and activity pacing in second session. Physical Therapy Prognosis: Prior to admission, patient was independent. He requires skilled physical therapy in acute rehab to address functional mobility impairments and promote independence. Anticipate pt will D/C I-mod I at ambulatory level within the home. Pt with good prognosis given anticipated progress as cardiopulmomary status improves, progress thus far, age and motivation. Progress maybe limited by possible unknown pre-existing co-morbidities. Barriers to Discharge: Deficits above, BHAVANI home/within home, limited physical assist available Estimated Length of Stay: 3 weeks Short-Term Goals: 7-10 days ?? Pt will be I with bed mobility without bed features. ?? Pt will perform transfers with supervision. ?? Pt will ambulate 75ft with AD as needed and min CGA of 1. ?? Pt will negotiate 4 stairs with min A of 1-2 and B rails. ?? Pt will participate in gait speed assessment. ?? Pt will participate in 6MWT to demonstrate improved endurance and hemodynamic response. ?? Pt will participate in [place] Balance Scale assessment to quantify fall risk. ?? Pt will perform sit <> stand from standard height chair with no UE support. ?? Pt will independently perform pursed lip breathing and activity pacing with ambulation and functional mobility. ?? Pt will maintain spO2 > 90% on RA with all mobility. Long-Term Goals: 3 weeks ?? Pt will ambulate 150ft mod I to I with least restrictive AD to demonstrate ability to participate in household mobility. ?? Pt will be cleared I in room to demonstrate safety with household mobility from carolyne to dusk. ?? Pt will negotiate full flight of stairs with unilateral rail and supervision to demonstrate ability to access second story of home. ?? Pt will perform car transfers with supervision to demonstrate ability to attend medical appointments with caregiver. ?? Pt will ambulate with gait speed of >/=0.6m/s to demonstrate improved safety with household/community ambulation. ?? Pt will ambulate >/=54m from initial 6MWT distance to demonstrate significant improvement in functional endurance. ?? Pt will score >/= 45/56 on the BBS to demonstrate decreased fall risk. ?? Pt will perform 5xSTS without UE use in <20 seconds to demonstrate improved functional strength. ?? Pt will maintain spO2 > 94% on RA with all mobility. PLAN: Treatment/Intervention: Physical therapy will be provided by physical therapist and/or therapist library assistant as appropriate. Frequency: 2-3 times/day for at least 5 days per week Intensity: 30-60 minutes/session, 90 minutes per day Duration: During rehab admission Interventions May Include: Therapeutic exercise, Therapeutic activities, Gait Training, Neuromuscular re-education, Wheelchair training, Self-Care/Home management Further Data: gait speed, BBS, complete IRF-BEL Patient/Family Education: Pt goals, PT POC, 6MWT, D/C planning, equipment, transfer/ambulation techniques, HEP, activity pacing, pursed lip breathing, airway clearance techniques Recommended Discharge Destination: Home with caregiver Recommended Discharge Services: Home health physical therapy vs Outpatient physical therapy Recommended Equipment Needs: TBD Other recommendations: Med psych consult Contact information: Pager: [phone] Elizabeth Licea, PT 04/24/2019 16:02 * Sheela Anthony, OT - 04/24/2019 0726 EDT Rehabilitation Therapies Inpatient Rehabilitation [facility] Occupational Therapy Initial Evaluation Note Date of Service: 04/24/2019 Reason for Referral: Evaluate and treat consistent with acute rehabilitation admission. Precautions: ?? Dysphagia diet-Stage 3 thin liquids ?? Activity as tolerated ?? Risk A ?? DNR/DNI ?? Supplemental O2 1-4 Lts as needed to maintain sats >89% ?? Sacral ulcer ?? Notify physician for: - Blood Pressure: systolic blood pressure greater than 180 mmHg or systolic blood pressure less than 90 mmHg - Heart Rate: less than 55 or greater than 120 - Respiratory Distress: RR less than 8 or greater than 30 - Temperature: greater than 38.0 degrees C (100.4 degrees F SUBJECTIVE: I slept okay last night, but I'm still pretty tired. Pt reports their biggest goal is to go to the bathroom independently. Pain: Pt reported no pain at this time. OBJECTIVE: Patient Profile: Shirlene Bryan is a Right hand dominant 64 y.o. male admitted on 04/23/2019 secondary to self-careand mobility deficits s/p debility after respiratory falure. The patient lives at [address] [place] [address] History of Present Illness/Injury: Per Dr. Dr. Otero H&P dated 04/23/19: Patient is a??64-year-old male with no prior medical history although he had not seen a physician in some 10 years. ??He presented to [facility] on 03/17/2019 with approximately 2.5 weeks of fever, loss of appetite, weakness, fatigue and diarrhea. ??Work-up at [facility] revealed pneumonia/ARDS and renal failure, as well as atrial fibrillation with RVR. ??He was transferred to the [facility] on 03/17/2019 for acute hypoxic respiratory failure with ARDS, volume overload, COPD and hemodynamic instability. ??He had evidence of sepsis secondary to a left lower lobe pneumonia and MSSA bacteremia. ?? On admission he was placed on Levophed and propofol, transition to ketamine secondary to hypotension. ??He was on Zosyn and azithromycin, and changed to ceftaroline as well as given vancomycin. ??Antibiotics were narrowed to nafcillin with Zosyn on 03/21/2019. ??On 03/20/2019 he did have some acute de compensation with concern of pulmonary embolism, was given heparin but developed bright red blood per rectum and of his orogastric tube. ??He had an acute blood loss anemia was transfused 3 units packed red blood cells and 1 unit platelets, started on pressors. ??EGD is revealed diffuse stomach andduodenal ulcerations. ??CT scan of the abdomen pelvis showed the jejunum being edematous and thicken ed, there was marked gallbladder distention without radiopaque cholelithiasis or evidence of gallbladder wall thickening. ??There was a left adrenal nodule favoring adenoma. ??TIESHA showed no acute findings during his stay. ??The difficulty with weaning from mechanical ventilation and a tracheostomy tube was placed on 03/28/2019 and was additionally weaned from pressors. ??CT scan of the chest with multifocal pneumonia within both lungs, bilateral parapneumonic effusions, moderate aortic great vessel atherosclerotic calcifications and mucous in the right lower lobe airways. He again had an anemia and on 04/07/2019 received an additional unit of packed red blood cells. ??Hewas transitioned to the floor, but on 04/12/2019 developed hypoxia again, and was transferred back to the medical intensive care unit. ?? He again was stabilized and moved to the floors. Follow-up imaging showed slight progression of multifocal regions of airspace disease in the lungs and small bilateral pleural effusions. ??He had required continue supplemental oxygen up to 5 L last night with oxygen desaturation down to 86%. He subsequently was de cannulated and tolerated this well and nasogastric tube removed with patient takinga dysphagia level 3 diet well. He has been seen by all therapy modalities and actively participating, being independent with all mobility and self-cares prior to his hospitalization. Given functionallimitations, he was evaluated and determined to be an appropriate candidate for acute inpatient rehabilitation. Medical/Surgical History: Current: Patient Active Problem List Diagnosis ??? Atrial fibrillation with RVR (HCC-CMS) ??? Acute respiratory failure with hypoxia (HCC-CMS) ??? Septic shock (HCC-CMS) ??? ARDS (adult respiratory distress syndrome) (HCC-CMS) ??? SIRISHA (acute kidney injury) (HCC-CMS) ??? Anemia ??? Thrombocytopenia (HCC-CMS) ??? Bacteremia ??? Fever ??? Encephalopathy ??? Upper gastrointestinal bleed Past: Past Medical History: Diagnosis Date ??? ARDS (adult respiratory distress syndrome) (HCC-CMS) Past Surgical History: Procedure Laterality Date ??? TRACHEOSTOMY Medications: Medications reviewed Prior Level of Function: Activities of Daily Living: independent with all self care. Instrumental Activities of Daily Living: Independent for most IADLs, however typically shares responsiblies of cooking with significant other. Work/Leisure: Dancing with significant other, playing the fiddle. 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 Bathroom Setup: Full flight of stairs with railing on one side to get to bathroom on second floor. Walk-in shower with no equipment. Caregiver Support: Significant other lives across the street and is main support system. Pt reportshe plans on discharging to her house until he feels ready. Equipment Available: Pt reports that significant other's shower has grab bars and bathroom is on first floor. Plans to use this bathroom and shower post d/c. Body Functions and Performance Skills: Cardiovascular/Respiratory Systems Function Vital Signs: Position Heart Rate (bpm) Blood Pressure (mmHG) Respiratory Rate (breaths/min) Oxygen Saturation SPO2 Liters of Oxygen Pre: 85 119/67 97 RA Post: 70 102/55 91 (Shallow breaths) RA De-saturation noted with mild exertion: 83-89%, however recovered quickly with rest and deep breathing. Mental Functions Specific Mental Functions (judgement,insight, awareness, attention, memory, spatial relations, coping, body image): ?? Pt demonstrates awareness and insight to his functional limitations as noted by stating that he would prefer to sit while completing grooming and would prefer not to walk to the bathroom. ?? Able to attend to tasks until completed. Global Mental Functions (orientation, arousal, energy and drive, impulse control): ?? Slight impulsivity noted when attempting to stand before wheelchair brakes were locked. ?? A&Ox3 ?? Alert throughout session, however significantly fatigued ?? Flat affect Cognitive FIM Comprehension: Complete [place] Expression: Complete [place] Social Interaction: Complete [place] Problem Solving: Complete [place] Memory: Complete [place] Skills requiring prompting include Sensory Functions Touch: No deficits noted. Vision: no deficits noted and pt reports no changes Hearing: No deficits noted. Neuromusculoskeletal and Movement Related Functions Range of motion: BUE WNL Strength: B shoulder flexion 3/5. B elbow flexion 4/5. B elbow extension 5/5. Muscle endurance: Pt fatigued after ~20 seconds standing at sink and took a rest break. Pt reports that he fatigues after sitting upright in chair for extended period of time, and feels better when laying supine. Involuntary movement reactions: Good sitting balance while at EOB. Pt maintained standing balance with external support from sink and CGA x2. Control of voluntary movement: Pt reports difficulty with tasks including writing and buttoning. Ptdemonstrated ability to manage small self care items including tootbrush/toothpaste and washcloth, however unable to open wrapper on new toothbrush. Skin and Related Structure Functions Skin functions: Pt has a Coccyx deep tissue injury that has evolved and became unstageable. nursingand aware. Reddened/rash areas throughout body, however more prevalent on buttocks, pt does not report any pain however occasionally reports it feeling itchy in these areas. Areas of Occupation and Performance Skills: Basic Activities of Daily Living Feeding: Set-up / clean-up;Supervision Reason if not Attempted: (pt had already eaten breakfast at time of evaluation.) Oral Hygiene: Supervision;Set-up / clean-up Hair: (pt has minimal hair, not part of typical morning routine) Face: Set-up / clean-up;Supervision Hands: Reason if not Attempted: Refused to perform Shave/Make-up: Bathing: Reason if not Attempted: (Shower date TBD) Upper Body Dressing: Set-up / clean-up;Supervision Street clothing Pants and Underwear: Set-up / clean-up;Supervision Street clothing Footwear: Reason if not Attempted: (Pt significantly fatigued, focus shifted to monitoring vitals) Toileting: Incidental touching;Supervision;Set-up / clean-up Toilet Transfer: Supervision;Incidental touching;Verbal cues Transfer Type: Stand-step Standard height toilet Tub/Shower Transfer: Reason if not Attempted: (Shower date TBD) Functional Mobility: CGA x2 Instrumental Activities of Daily Living Not addressed this date due to severity of impairments. Informed Consent The patient consented to the occupational therapy evaluation. The patient agrees to and understandsthe occupational therapy treatment plan and goals. Intervention Completed This Date: Occupational therapy today at 0900 Evaluation: 60 minutes Total Therapy minutes: 60 minute(s) No interventions today. No interventions today outside of evaluation. Patient/Family Education: Topic: Benefits of activity Role of OT D/C planning Adaptive equipment Safety awareness Learner: patient Method: verbal Barriers to Learning: none noted Outcome: verbalized understanding Team Communication: With PT re: ROSEY. ASSESSMENT: Shirlene Bryan is a 64 y.o. male admitted on 04/23/2019 due to functional limitations s/p debility following respiratory failure due to MSSA pneumonia and septic shock. Pt had a complicated medical stay involving a tracheostomy, upper GI hemorrhage from a multifocal ulcer, severe malnutrition and a deep tissue injury. He presents to rehabilitation with decreased functional activity tolerance, standing balance, profound weakness, malnutrition, fatigue, decreased coordination and poor O2 saturation with mild exertion, all impacting his ability to independently complete self-care, ho usehold management, and leisure activities. Prior to admission, the patient was independent in all aspects of ADL and IADL with occasional shared responsibilities with significant other. This patientis currently removed from their baseline level of function due to deficits mentioned above, impacting their roles as community member and significant other. Upper quarter screen findings include: deficits in BUE strength both proximal/distal. Deficits identified in UQS will be addressed through a gentle strengthening program. The patient does present with the following strengths which will positively affect his outcome: good support system, motivation to return to prior level of function, and good cognition. Given identified impairments, patient would benefit from skilled OT in order to achieve maximum level of function and ensure a safe discharge. OT will utilize both a restorative approach and compensatory strategies to maximize participation in self care and IADL. ELOS is 3 weeks. Anticipate patient will be at a modified independence level for self care. Patient will likely require home health OT upon discharge. Adaptive equipment will potentially consist of grab bars and shower seat. GOALS: Short Term Goals: 7-10 days ? ? Pt will increase functional standing tolerance to 2 minute intervals while maintain O2 sats >89% ??? Pt will complete all grooming tasks sitting standing at sink with supervision. ??? Pt will complete ambulatory toilet transfer with RW and contact A x1 ??? Pt will complete UB/LB bathing with supervision. ??? Pt will independently implement PLB techniques into ADL routine and maintain O2 sats above 89% Slab Grinder Goals: 3 weeks ?? Pt will complete all grooming tasks standing at sink with independence. ?? Pt will complete shower transfer with supervision. ?? Pt will shower with distant supervision. ?? Pt will complete toilet transfer with independence. Pt will complete lower body dressing with independence. Pt will complete light meal prep with supervision. Pt/caregiver will verbalize understanding of recommendations for AE. Pt/caregiver will verbalize understanding of energy conservation techniques. Pt will independently implement energy conservation techniques into self-care routine. Pt/caregiver will verbalize good understanding of fall prevention education and will identify strategies to implement into daily routine for safety at home. Pt/caregiver will demonstrate independence with all home exercises as instructed by therapy and verbalize daily carryover of exercises. PLAN: Intervention: Occupational therapy treatment for 60-90 minutes a day 5-6 times a week for 3 week(s) for: Occupation Based Activity - Basic Activities of Daily Living Occupation Based Activity - Instrumental Activities of Daily Living Purposeful Activity Preparatory Method - Exercise Patient/Family Education Further Data: FIM: see above, complete IRF-BEL, complete transport aircrewman strength, continue to monitor vitals Patient/Family Education: Fall prevention, energy conservation, adaptive equipment for ADL and IADL. Discharge Plan: Pt will discharge to significant other's home due to set-up of bathroom and bedroomuntil he is ready to return home. Pager: [phone] ENEDINA SHOSHANA, 04/24/2019, 13:34 Sheela Anthony OTR/L Pager [phone] documented in this encounter H&P Notes * Eladio Otero MD - 04/23/2019 1402 EDT Acute Rehab Admission H+P Admit Date: 04/23/2019 Date of Service: 04/23/2019 PCP: Doctor Unknown Chief Complaint: Patient is being admitted to Acute rehabilitation following debility after respiratory failure. History is obtained from full chart review and the results are summarized below. HPI Patient is a 64-year-old male with no prior medical history although he had not seen a physician in some 10 years. He presented to [facility] on 03/17/2019 with approximately 2.5 weeks of fever, loss of appetite, weakness, fatigue and diarrhea. Work-up at [facility] revealed pneumonia/ARDS and renal failure, as well as atrial fibrillation with RVR. He was transferred to the [facility] on 03/17/2019 for acute hypoxic respiratory failure with ARDS, volume overload, COPD and hemodynamic instability. He had evidence of sepsis secondary to a left lower lobe pneumonia and MSSA bacteremia. ?? On admission he was placed on Levophed and propofol, transition to ketamine secondary to hypotension. He was on Zosyn and azithromycin, and changed to ceftaroline as well as given vancomycin. Antibiotics were narrowed to nafcillin with Zosyn on 03/21/2019. On 03/20/2019 he did have some acute decompensation with concern of pulmonary embolism, was given heparin but developed bright red blood per rectum and of his orogastric tube. He had an acute blood loss anemia was transfused 3 units packed red blood cells and 1 unit platelets, started on pressors. EGD is revealed diffuse stomach and duodenal ulcerations. CT scan of the abdomen pelvis showed the jejunum being edematous and thickened, there was marked gallbladder distention without radiopaque cholelithiasis or evidence of gallbladder wall thickening. There was a left adrenal nodule favoring adenoma. TIESHA showed no acute findings during hisstay. The difficulty with weaning from mechanical ventilation and a tracheostomy tube was placed on03/28/2019 and was additionally weaned from pressors. CT scan of the chest with multifocal pneumoniawithin both lungs, bilateral parapneumonic effusions, moderate aortic great vessel atherosclerotic calcifications and mucous in the right lower lobe airways. He again had an anemia and on 04/07/2019 received an additional unit of packed red blood cells. He was transitioned to the floor, but on 04/12/2019 developed hypoxia again, and was transferred back [facility] medical intensive care unit. ?? He again was stabilized and moved to the floors. Follow-up imaging showed slight progression of multifocal regions of airspace disease in the lungs and small bilateral pleural effusions. He had required continue supplemental oxygen up to 5 L last night with oxygen desaturation down to 86%. He subsequently was de cannulated and tolerated this well and nasogastric tube removed with patient taking adysphagia level 3 diet well. He has been seen by all therapy modalities and actively participating,being independent with all mobility and self-cares prior to his hospitalization. Given functional limitations, he was evaluated and determined to be an appropriate candidate for acute inpatient rehabilitation. This patient's current status is similar to the pre-admission screening and is appropriate for inpatient rehabilitation admission. PMH PSH Past Medical History: Diagnosis Date ??? ARDS (adult respiratory distress syndrome) ([facility]) Past Surgical History: Procedure Laterality Date ??? TRACHEOSTOMY Social History Family History Social History Tobacco Use ??? Smoking status: Current Every Day Smoker Packs/day: 1.50 Types: Cigarettes ??? Smokeless tobacco: Never Used ??? Tobacco comment: Quit 2 weeks ago Substance Use Topics ??? Alcohol use: Yes Alcohol/week: 2.0 standard drinks Types: 2 Cans of beer per week Lives alone in a two-story home. 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 He has a girlfriend who lives across the street from him, and she does not work and can provide assistance at discharge. Family History Problem Relation Age of Onset ??? Stroke Mother Cerebrovascular disease ??? Stroke Father Cerebrovascular disease Medications Medications Prior to Admission Medication Sig Dispense Refill Last Dose ??? albuterol (ACCUNEB) 2.5 mg /3 mL (0.083 %) nebulizer solution Take 3 mL by nebulization every 4hours as needed for Wheezing. 30 Each 0 04/23/2019 ??? cholecalciferol, Vitamin D3, 1,000 unit tablet Take 1 Tab by mouth daily. 30 Tab 0 04/23/2019 ??? collagenase (SANTYL) ointment Apply to sacral wound per wound care instructions 30 Tube 0 04/23/2019 ??? ferrous sulfate 324 mg (65 mg iron) tablet,delayed release (DR/EC) Take 1 Tab by mouth daily with breakfast. 30 Tab 0 04/23/2019 ??? guaiFENesin (MUCINEX) 600 mg SR tablet Take 1 Tab by mouth 2 times daily. 30 Each 0 04/23/2019 ??? ipratropium-albuterol (DUONEB) 0.5 mg-3 mg(2.5 mg base)/3 mL nebulizer solution Take 3 mL by nebulization 2 times daily. 1 Each 0 04/23/2019 ??? melatonin 5 mg tablet Take 1 Tab by mouth at bedtime. 30 Tab 0 04/22/2019 ??? metoprolol (LOPRESSOR) 25 mg tablet Take 0.5 Tabs by mouth 2 times daily. 30 Tab 0 04/23/2019 ??? [START ON 04/24/2019] Multivitamins with Minerals tablet tablet Take 1 Tab by mouth daily. 30 Tab 0 04/23/2019 ??? [START ON 04/24/2019] nicotine (NICODERM CQ) 7 mg/[address] 1 Patch onto the skin daily. 1 Each 0 04/23/2019 ??? pantoprazole (PROTONIX) 40 mg tablet Take 1 Tab by mouth daily. 30 Tab 0 04/23/2019 ??? senna (SENOKOT) 8.6 mg tablet Take 2 Tabs by mouth at bedtime. 30 Tab 0 04/22/2019 ??? [DISCONTINUED] zinc sulfate (ZINCATE) 220 (50) mg capsule 1 Cap by per g tube route daily. 30 Cap 0 04/23/2019 Allergies No Known Allergies Review of Systems: A ten point review of systems was performed. Pertinent positives are listed below, all others are negative: Objective/Physical Exam: VS: Patient Vitals for the past 8 hrs: BP Pulse Resp Temp SpO2 O2 Device 04/23/19 1339 112/70 89 24 37.5 ??C (99.5 ??F) 96 % None Pain: Patient Vitals for the past 8 hrs: Numeric Pain Level (Scale 1-10) 04/23/19 1341 0 Weight: Weight : 54 kg (119 lb) BMI: Body mass index is 16.37 kg/m??. Glucose Readings (last 8 readings): No results for input(s): GLUCOSEFINGE in the last 72 hours. Exam: Gen: Alert, pleasant, no distress HEENT: Head: Normocephalic, no lesions, without obvious abnormality. Head: Normal, normocephalic, atraumatic. Eye: Normal external eye, conjunctiva, lids cornea, JULIANO. Nose: Normal external nose, mucus membranes and septum. Pharynx: Dental Hygiene adequate. Normal buccal mucosa. Normal pharynx. Neck: Tracheostomy site is open with air leak. Wound edges are clean. Sacral ulceration, unstageable Skin: Sacral ulcer. Macular rash extending through the back, chest abdomen and the right thigh Cardiac: Cor RRR Pulmonary: Diffuse rhonchorous sounds but good air movement otherwise throughout. Abdomen: Bowel sounds present throughout, soft, nontender Musculoskeletal: no joint tenderness, deformity or swelling, no muscular tenderness noted, full range of motion without pain Neuro: Alert, oriented, thought content appropriate Affect: appropriate Language: speech fluent and spontaneous, intact naming and repetition Cranial nerves: CN III-IV, : EOMI, No nystagmus. No ptosis or anisocoria is noted. CN V: Normal masseter bulk, tone. V1-V3 intact to LT. CN VII: Face symmetric without weakness. CN VIII: Hearing grossly intact. CN IX-X: No dysphonia, dysarthria. Normal palatal and uvular elevation. Motor: Strength 4+/5 and symmetric without focal weakness Tone normal Reflexes: 1+ Sensation: No focal sensory loss Cerebellar: no tremors Station and gait: Deferred testing Pressure Ulcer Present on admission? Yes, assessment documented Data Review: Labs: I have personally reviewed CBC: Lab Results Component Value Date WBC 10.01 04/22/2019 RBC 2.95 (L) 04/22/2019 HGB 8.3 (L) 04/22/2019 HCT 26.3 (L) 04/22/2019 MCV 89 04/22/2019 MCH 28.1 04/22/2019 MCHC 31.6 (L) 04/22/2019 PLT 293 04/22/2019 NEUTROABS 8.90 (H) 03/20/2019 Lab Results Component Value Date NA 135 (L) 04/22/2019 K 4.4 04/22/2019 CL 105 04/22/2019 CO2 23 04/22/2019 Other Studies: Assessment/Problems: (update problem list daily as appropriate) Patient Active Problem List Diagnosis Date Noted ??? Upper gastrointestinal bleed 04/18/2019 Priority: Medium ??? Septic shock ([facility]) 03/19/2019 Priority: Medium ??? (H)ARDS (adult respiratory distress syndrome) ([facility]) 03/19/2019 Priority: Medium ??? (H)SIRISHA (acute kidney injury) ([facility]) 03/19/2019 Priority: Medium ??? Anemia 03/19/2019 Priority: Medium ??? Thrombocytopenia ([facility]) 03/19/2019 Priority: Medium ??? Bacteremia 03/19/2019 Priority: Medium ??? Fever 03/19/2019 Priority: Medium ??? Encephalopathy 03/19/2019 Priority: Medium ??? (H)Atrial fibrillation with RVR ([facility]) 03/17/2019 Priority: Medium ??? (H)Acute respiratory failure with hypoxia ([facility]) 03/17/2019 Priority: Medium This patient's current status is similar to the pre-admission screening and is appropriate for inpatient rehabilitation admission. Patient has had a significant decline in function as the result of hypoxic respiratory failure. He has impaired swallowing function, self care, balance, and functional mobility. An acute inpatient rehab setting is medically necessary for physician monitoring of skin, rash, nutrition, respiratory status, 24 hour nursing care, and acute level therapies including PT, OT, SECURITY ASSISTANT for 3 hours per day, 5 days per week. Patient has excellent rehab potential and is expected to be independent with functional mobility and self-care at discharge. Patient's preadmission medications have been fully reviewed and reconciled. Medication adjustments have been made according to the present needs at the time of admission Plan: 1. Debility following prolonged hospitalization, multiple medical comorbidities, including hypoxic respiratory failure: Residual impaired mobility, self-cares, swallowing function. Full PT, OT, SECURITY ASSISTANT assessments and therapies to address mobility, self care, swallowing function. 24 hour rehab nursing for self care deficits Impairment Group Other medically complex conditions 2. Nutrition: Now on dysphagia level 3 diet. Nutrition consult 3. Pneumonia/MSSA bacteremia with acute hypoxic respiratory failure/ARDS: Clinically improving, decannulated and maintaining oxygen saturations but may need supplemental oxygen with increasing activity. Internal medicine consultation Continue duo nebs twice daily Maintain guaifenesin 600 mg twice daily 4. Duodenal ulcer/upper GI bleed: Continue Protonix 40 mg daily. 5. Acute kidney injury: Creatinine has normalized we will monitor overall fluid intake, avoid nephrotoxic agents 6. Anemia: Multifactorial including acute care illness, GI bleed. Counts have been relatively stable but continue to monitor intermittently 7. Sacral ulcer: Unstageable. Followed by wound care nursing. Continue topical treatment and pressure relief. 8. Atrial fibrillation: Back in sinus rhythm. Continue metoprolol. Currently not on anticoagulationgiven recent GI bleed and low CHADS score as documented by medicine. 9. Rash: Appears to be a drug rash. Treat symptomatically. DVT Prophylaxis: Pharmacologic Prophylaxis: Enoxaparin (Lovenox) 40 mg SQ daily Discharge Plan: Home or self care ELOS: 2 weeks Eladio Otero MD 04/23/2019 14:02 documented in this encounter Consult Notes * Shelly Soto - 05/03/2019 1334 EDTAssociated Order(s): CONSULT SMOKING CESSATION Tobacco Cessation Initial Consult Note Subjective: I haven't even thought about it in regards to smoking. Objective: Last cigarette smoked: prior to admission Started smoking at age: not discussed Number of quit attempts over the past year: not reported quit once for 1.5 years Quantity of tobacco products used: Cigarettes: 1.5 ppd Living Environment: Number of household members:2 Number of household members who smoke:2 Number of children in the home under age 18:none Smoking allowed in the home:not discussed Smoking allowed in the car:not discussed Challenges include living with and being around smokers. Assessment: Readiness to quit tobacco use: Already quit Nicotine Withdrawal symptoms being reported: no symptoms reported Current Management of Withdrawal symptoms: [place] Plan: TTS will send tobacco cessation guide and info for additaional support through free self managementworkshops. SHELLY SOTO 05/03/2019 13:34 * Dorinda Carey - 04/24/2019 1425 EDT Nutrition Initial Assessment: Reason for Assessment: Nursing Consult Medical Summary: Shirlene Bryan is a 64 y.o. male admitted on 04/23/2019 with no prior medical history although he had not seen a physician in some 10 years. ??He presented to [facility] on 03/17/2019 with approximately 2.5 weeks of fever, loss of appetite, weakness, fatigue and diarrhea. ??Work-up at [facility] revealed pneumonia/ARDS and renal failure, as well as atrial fibrillation with RVR. ??[facility] for acute hypoxic respiratory failure with ARDS, volume overload, COPD and hemodynamic instability. ??He had evidence of sepsis secondary to a left lower lobe pneumonia and MSSA bacteremia. S/p trach, NGT w TF ?? Subjective: Patient reports his appetite is improving and he has been eating better lately. He was eating 2 meals and drinking at least 2 Boost Plus most days at the main campus prior to transfer to [facility] yesterday. Though he was ordered to receive Mighty Shakes, he says he has never tried them before and would like to stick with Boost Plus (though dislikes chocolate flavor). He thinks he can drink 3 Boost Plus daily and especially likes them when mixed with ice cream. He was also interested in an afternoon snack of vanilla pudding and mandarin oranges. Reports regular bowel movements and no needs at this time. Current Nutrition Orders: Dysphagia 3, Mighty Shake BID ?? Nutrition Focused Physical Findings: Overall: cachetic appearing man lying in bed Digestive Systems: Last BM 04/24 Skin: coccyx ulcer continues to be unstageable w/ yellow slough per wound care note 04/23 NFPE deferred as patient had just gotten settled in bed by RN. ?? Anthropometrics: Height: 71.5 Current Body Weight: 54 kg (119 lb) -- 04/23/19 UBW: admitted to [facility] 03/17/19 70.35kg Weight Change: -16.35 kg in 5 weeks (23% body weight) Body mass index is 16.37 kg/m??. Pertinent Medications: Current Facility-Administered Medications: cholecalciferol (Vitamin D3) tablet 1,000 Units oral QHS diphenhydrAMINE (BENADRYL) capsule 25 mg oral Q6H PRN ferrous sulfate EC tablet 324 mg oral DAILY (BREAKFAST) Multivitamins with Minerals tablet 1 Tab oral DAILY nicotine (NICODERM CQ) 7 mg/24 hr patch 1 Patch transdermal DAILY pantoprazole (PROTONIX) tablet 40 mg oral QHS senna (SENOKOT) tablet 2 Tab oral QHS Pertinent Labs: Relevant Labs: Lab Results Component Value Date WBC 10.01 04/22/2019 RBC 2.95 (L) 04/22/2019 HGB 8.3 (L) 04/22/2019 HCT 26.3 (L) 04/22/2019 MCV 89 04/22/2019 MCH 28.1 04/22/2019 PLT 293 04/22/2019 NA 135 (L) 04/22/2019 K 4.4 04/22/2019 CL 105 04/22/2019 CO2 23 04/22/2019 CREATININE 0.75 04/22/2019 CALCIUM 8.8 04/22/2019 MG 1.8 04/22/2019 PHOS 4.7 (H) 04/22/2019 Estimated Nutrition Needs: Estimated needs on new wt of 55.5K: >1900 for anabolism (BEE x 1.5) 85-100 gm pro (1.5-1.8/kg) ?? Estimated Nutrition Intake: Shirlene reports eating 2-3 meals/day.100% intake when documented. Drinking at least 2 Boost Plus daily, sometimes as milkshake ?? Assessment: Patient has lost 23% body weight since admission to [facility] 03/17/19, likely d/t loss of lean body mass, LOS, and metabolic stress. He does report improved appetite eating 2 meals and at least 2 Boost Plus daily. Reviewed importance of protein in healing (regaining strength and coccyx pressure injury)and sources available on dysphagia diet. He thinks he can drink 3 Boost Plus (vanilla or strawberryflavor), especially if mixed with ice cream, and will try to eat 3 meals/day. Daily MVM and vitaminD supplementation remain appropriate. Please continue to weigh patient at least 2x/week to guide nutrition assessment. Nutrition Risk Level: Moderate (2) Medical Nutrition Therapy Plan and Recommendations: Oral Nutrition: - Diet advancement per SECURITY ASSISTANT - RD to order Boost Plus/ice cream TID (likes them as milkshakes) - RD to order vanilla pudding and mandarin oranges as scheduled PM snack Vitamins and Minerals: - Continue daily MVM and vitamin D supplementation Coordination of Care: - Please weight patient at least 2x/week ?? Dorinda Carey, RD, CD [facility] Dietitian Phone: [phone] * Viktoria Farr RN - 04/24/2019 0731 EDT Images from the original note were not included. 04/23: re-consulted to assess pressure injury Pt known to wound care from admission on main campus. Pt was admitted with a deep tissue injury that quickly evolved and became unstageable. Wound care saw pt yesterday, please review note, pic below. Spoke with bedside nurse Dimple and suggested that Sanytl continue to be used to debride yellow slough from base. Wound care will continue to follow. Recommend Dime size amount of Santyl to 2x2 dressing, place over yellow slough on coccyx wound. Cover with??Mepilex??sacral??border. Change every 5-7 days or prn for saturation. Lift daily to assess area and place back down.? Offload pressure from coccyx at all times Turn and reposition pt q2hrs Float heels off from mattress?? Viktoria Farr, Pressure Ulcer Prevention Nurse * Shanon Reyes MD - 04/23/2019 1445 EDT MEDICINE CONSULT Requested by: Dr. Otero Reason: MSSA pneumonia and staph aureus septic shock, acute hypoxic respiratory failure and acute respiratory distress syndrome, sp tracheostomy, upper gastrointestinal hemorrhage from multifocal ulcer, severe protein calorie malnutrition, deep tissue injury Date of admission to hospital: 03/17/2019 [facility] HPI: Patient was admitted with acute hypoxic respiratory failure from methicillin sensitive staph aureus pneumonia. He is already sort of a frail 64 yo man who had no PCP prior and smoked, who presented to [facility] on 03/15 with 2 weeks of fever, anorexia, diarrhea and sepsis. He was found to be in atrial fibrillation with rapid ventricular response, began treatment for community acquired pneumonia and transferred to [facility] for further critical care evaluation and management. On arrival, he required large volume resuscitation and iv diltiazem for the AF with RVR. He then decompensated from a respiratory perspective and required intubation for developing ARDS and acute hypoxic respiratory failure from what was ultimately defined as MSSA pneumonia, bacteremia and subsequent septic shock. He had acute kidney injury which has resolved. He went on to have a prolonged intubation and received tracheostomy on 03/28/2019. His hospital stay was further complicated by upper GI hemorrhage from gastric ulcers and a visible bleeding vessel which needed clipping seen on EGD done on 03/27/2019. He needed blood transfusion butHct has been stable since. He was treated for 14 days with broad-spectrum antibiotics. He is frail, has lost a fair amount of weight, and has signs of protein calorie malnutrition. His trach was decannulated on 04/19/2019. In addition, he had developed a deep tissue injury which is healing some, but he now has a profoundbeefy red rash. High intensity on his buttocks, but scattered throughout. He transferred to acute rehab for continued functional therapies. REVIEW OF SYSTEMS AT PRESENT: A ten point review of systems was performed. Pertinent positives are listed below, all others are negative: Weak in general +weight loss +rash PMH: Past Medical History: Diagnosis Date ??? ARDS (adult respiratory distress syndrome) ([facility]) MEDS: List reviewed. Current Facility-Administered Medications: acetaminophen (TYLENOL) tablet 650 mg oral Q4H PRN albuterol (ACCUNEB) nebulizer solution 2.5 mg nebulization Q4H PRN cholecalciferol (Vitamin D3) tablet 1,000 Units oral QHS collagenase (SANTYL) ointment topical DAILY [START ON 04/24/2019] enoxaparin (LOVENOX) injection 40 mg subcutaneous DAILY [START ON 04/24/2019] ferrous sulfate EC tablet 324 mg oral DAILY (BREAKFAST) guaiFENesin (MUCINEX) SR tablet 600 mg oral BID ipratropium-albuterol (DUONEB) 0.5 mg-3 mg(2.5 mg base)/3 mL nebulizer solution 3 mL nebulization BID melatonin tablet 5 mg oral QHS metoprolol (LOPRESSOR) tablet 12.5 mg oral BID [START ON 04/24/2019] Multivitamins with Minerals tablet 1 Tab oral DAILY [START ON 04/24/2019] nicotine (NICODERM CQ) 7 mg/24 hr patch 1 Patch transdermal DAILY pantoprazole (PROTONIX) tablet 40 mg oral QHS senna (SENOKOT) tablet 2 Tab oral QHS Wool Alcoh-Min Bjr-Bjazy-Ydpqe (EUCERIN) cream topical PRN ALL: No Known Allergies SOCIAL: Social History Tobacco Use ??? Smoking status: Current Every Day Smoker Packs/day: 1.50 Types: Cigarettes ??? Smokeless tobacco: Never Used ??? Tobacco comment: Quit 2 weeks ago Substance Use Topics ??? 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 Stroke Mother Cerebrovascular disease ??? Stroke Father Cerebrovascular disease EXAM: BP 112/70 (BP Cuff Location: Right arm, Patient Position: Lying right side) Pulse 89 Temp 37.5 ??C (99.5 ??F) (Tympanic) Resp 24 Ht 181.6 cm (71.5) Wt 54 kg (119 lb) SpO2 96% BMI 16.37kg/m?? Gen: Frail, thin appearing with temporal wasting, wasting in hands. On room air. HEENT: Trach site still open in part. Air leak and blow by when he speaks Skin: Beefy red rash on buttocks and upper arm Cardiac: Irregular Pulmonary: +Crackles bilaterally Abdomen: Soft, thin, nontender. No boss. Musculoskeletal: Thin; muscle wasting in hands Neuro: Alert, oriented, thought content appropriate Affect: appropriate; a little flat Language: Speech fluent No ptosis or anisocoria is noted. Normal masseter bulk, tone. V1-V3 intact to LT. Face symmetric without weakness. Hearing grossly intact. Motor: Strength grossly symmetric but diminished Pressure Ulcer Present on admission? Yes, assessment documented See note from Viktoria Farr today DATA: Labs: I have personally reviewed CBC: Lab Results Component Value Date WBC 10.01 04/22/2019 RBC 2.95 (L) 04/22/2019 HGB 8.3 (L) 04/22/2019 HCT 26.3 (L) 04/22/2019 MCV 89 04/22/2019 MCH 28.1 04/22/2019 MCHC 31.6 (L) 04/22/2019 PLT 293 04/22/2019 NEUTROABS 8.90 (H) 03/20/2019 BMP: Lab Results Component Value Date NA 135 (L) 04/22/2019 K 4.4 04/22/2019 CL 105 04/22/2019 CO2 23 04/22/2019 BUN 66 (H) 03/24/2019 CREATININE 0.75 04/22/2019 GLUCOSEFINGE 126 (H) 04/07/2019 CALCIUM 8.8 04/22/2019 MG 1.8 04/22/2019 PHOS 4.7 (H) 04/22/2019 LABALBU 2.2 (L) 03/17/2019 IMPRESSION + SUGGESTIONS: 1. MSSA pneumonia and septic shock Treated with 2 weeks iv abx Please encourage frequent IS and acapella If diarrhea occurs, will have low threshold to check cdiff 2. Sp Acute hypoxic respiratory failure - see 1 3. Tracheostomy Site not yet closed - will need to monitor 4. Severe protein calorie malnutrition Nutrition consultation SECURITY ASSISTANT following for dysphagia Aspiration precautions 5. Upper GI hemorrhage and normocytic anemia mixed iron deficiency and chronic inflammation - improved some Daily PPI for bleed (already got 4 weeks bid ppi) Daily iron supplement 6. Atrial fibrillation On metoprolol 12.5 bid Not on OAC due to low CHADSvasc2 score and GIB 7. Pressure injury Skin bed, turns q2 8. Rash - features on buttocks look candidal. For now: Miconazole cream and powder tid Turns CTM 9. Emphysema Duonebs bid - will change to dulera + tiotrop once stable DVT ppx: enox 40 Shanon Reyes MD 04/23/2019 14:45 documented in this encounter Miscellaneous Notes * Plan of Care - Renee Marcum RN - 05/12/2019 1798 EST Pt's here, demonstrated trach and coccyx dressing change. acknowledged understanding. Pt discharged to home accompanied by ,all belongings sent with pt. All discharge instruction completed. * Plan of Care - Dimple Winters RN - 05/12/2019 1317 EST Problem: Daily Care Plan Goals Goal: Care Plan Documentation Outcome: Met This Shift Flowsheets (Taken 05/12/2019 1031) Area of Focus: Discharge Plan Goal This Shift: pt will discharge by the end of the shift Note: Pt plans to discharge home with girlfriend this afternoon; [facility] called and referral confirmed and discharge summary and orders faxed; AVS given and education provided and questions answered; medications given and gone over; awaiting girlfriends arrival for final education re: coccyx and trach dressings * Plan of Care - Haley Lizama RN - 05/11/2019 1304 EST Patient in good spirits-good appetite. He denies pain or headache. Ambulating with contact guard and walker-very steady- in halls. No unsafe behavior- independent in room with walker. food manager working on medications-they will be picked up today from [facility] and locked in med room -ready fordischarge Tuesday. * Plan of Care - Ivonne Cole LPN - 05/11/2019 0517 EST Problem: Daily Care Plan Goals Goal: Care Plan Documentation Outcome: Met This Shift Flowsheets (Taken 05/11/2019 0000) Area of Focus: Safety Goal This Shift: Remain safe in room Data: Pt is independent in room, alert and oriented x 3, continent. Action: Hourly rounding. Response: Pt ambulated to bathroom independently. Slept well, no c/o pain. IVONNE COLE LPN 05/11/2019 5:18 * Plan of Care - Domenica Mcghee RN - 05/10/2019 2056 EST Problem: Daily Care Plan Goals Goal: Care Plan Documentation Outcome: Met This Shift Flowsheets (Taken 05/10/2019 1622) Area of Focus: Safety Goal This Shift: Pt will remain safe all shift * Plan of Care - Dimple Winters RN - 05/10/2019 1255 EST Problem: Daily Care Plan Goals Goal: Care Plan Documentation Outcome: Ongoing Flowsheets (Taken 05/10/2019 1039) Area of Focus: Discharge Plan Goal This Shift: pt plans to discharge on Saturday 05/12 Note: Pt to discharge home on Tuesday to girlfriends home with her assisting with care; girlfriend needsto learn skin care including trach site and coccyx dressing--please educate as able; [facility] called andreferral given * Plan of Care - Linda Lopez RN - 05/10/2019 1116 EST Problem: Pressure Ulcer Prevention Goal: Absence Of Pressure Ulcer Outcome: Ongoing Andrew score 18 on skin rounds. Bilateral elbows and heels red (rash), intact, blanching- larger elbow pads provided. Coccyx w/ DTPI that evolved to Unstageable, per Viktoria Farr. Slough present, surrounding blanchable erythema. Flat red rash present from neck to feet, intact, blanching. Bilateral acromions red, intact, blanching- mepilex replaced. Mepilex sacrum border reapplied to coccyx. Pt iscontinent of bowel/bladder. Pt able to reposition independently. Pt has had a Nutrition consult this admission. Reinforced pressure ulcer prevention education, pt verbalized understanding of education. Pt is on a pressure relieving cushion for WC. Pt is on a [facility] bed. Will continue to monitor skin integrity this admission as needed. * Patient Care Conference - Martha Reddy MD - 05/10/2019 0946 EST Inpatient Acute Rehabilitation Unit - Interdisciplinary Team Conference Note Shirlene Bryan 64 y.o. male Team Conference Date/Time: 05/10/2019 @1205 Admit Date/Time: 04/23/2019 13:32 Primary Rehab diagnosis: Debility Comorbid Conditions: Patient Active Problem List Diagnosis ??? Atrial fibrillation with RVR (HCC-CMS) ??? Acute respiratory failure with hypoxia (HCC-CMS) ??? Septic shock (HCC-CMS) ??? ARDS (adult respiratory distress syndrome) (HCC-CMS) ??? SIRISHA (acute kidney injury) (HCC-CMS) ??? Anemia ??? Thrombocytopenia (HCC-CMS) ??? Bacteremia ??? Fever ??? Encephalopathy ??? Upper gastrointestinal bleed Progress towards goals: Nursing: Please see daily nursing note OT: Pt has made notable gains with BUE strength, endurance, and ADL/IADL participation. He has progressed with all OT level goals and is on track for d/c on 05/12. PT: Notable gains include improved functional strength and endurance, improved O2 saturation with activity, decreased rest break time between activities, improved balance, and progression to mod I within room. and Progress limited primarily by fatigue. See below for additional barriers Gait: The patient ambulates with supervison, cues and assistance of 1 with 4 wheel rollater for ~600 feet. Gait deviations: Increased forward flexion throughout, decreased gait speed. Stairs: Patient negotiates with supervison, cues and assistance of 1 up and down 18 stairs with 2 rails. Self-Care:Bed Mobility: Sit->supine: independently with flat bed and no rails. Supine->sit: independently with flat bed and no rails. Transfers: Bed < > Chair: stand-step independently SECURITY ASSISTANT: Medical Complications: None identified at this time Level of Risk & Environmental Privilege: A Pre-Hospital Living Setting and Support System:??Lives alone in [place], [place] in multi-level house, 1 [address] without rails but will initially stay with gf at discharge at home - single level with 3 BHAVANI;?24-hour assist??from girlfriend but she has medical issues and is limited in the physical assist she can provide Barriers to Discharge:??Impaired mobility due to debility from pneumonia complicated by sepsis, ARDS, renal failure, hemodynamic instability, COPD and Afib with RVR??- pt requires supervision with??bed mobility and W/C propulsion and physical assist for sit <> stands, transfers, and ambualtion, which contribute to difficulty with participation??in self care, work, and leisure activities.?Functional deficits with self-care and mobility with?impaired cardiopulmonary status, decreased strength, decreased functional strength and endurance, decreased activity tolerance, impaired communication??and impaired balance.?? Efforts to Remove Barriers:??Patient is tolerating Acute IP Rehab Program intensity well and makingsignificant functional progress. Full rehab program to increase the patient's level of independencewith self-care and functional mobility to decrease the amount of assistance and/or supervision needed at discharge. Patient is making progress towards discharge goals at a faster rate of progress than initially anticipated. . Patient/family training is in process and equipment needs will be addressed by discharge. Length of stay can be shortened to reach Acute IP Rehab goals. Discharge date changed. Goals remain current. Additional Team Conference Discussion: Anticipated Actual Discharge Disposition: Discharge Location: significant other's home Caregiver at Discharge: Spouse/significant other/domestic partner Supervision/Assistance at Discharge: Occasional supervision Revised Expected Discharge Date: 05/12/19 Follow-Up Services: Home health with Nursing, OT, PT and home health aid Anticipated Home Care Needs: None anticipated Reassessment of goals or treatment program: Goals maintained Assessment of need for Acute Rehabilitation level of care: The expected course of treatment continues to require an interdisciplinary approach to maximize interventions and progress towards functional goals established., The patient generally participates actively in therapy at expected intensity levels., Continue therapies by OT and PT and For a total of 3 hours per day, 5 days per week Additional interdisciplinary team information: Patient/Caregiver Communication: Nurse will inform patient/family of discharge plan and estimated length of stay Full name and professional designation of each interdisciplinary team truck driver physically in attendance for this team conference. Rehabilitation Physician: Martha Reddy MD I lead this weekly interdisciplinary team meeting and was responsible for making the final decisions regarding the patient???s treatment in the IRF. I concur with all decisions made by the interdisciplinary team. Manufacturing Scheduler: Ange Jovel RN Case Manager: Judi Shin, JORGE Nurse: Dimple Winters RN OT: Janel Langston OT PT: Elizabeth Licae PT SECURITY ASSISTANT: * Plan of Care - Paulina Alvarez RN - 05/10/2019 0533 EST Problem: Daily Care Plan Goals Goal: Care Plan Documentation Outcome: Met This Shift Flowsheets (Taken 05/10/2019 0100) Area of Focus: Sleep Goal This Shift: Adequate sleep Pt appeared to sleep well, no c/o pain, no signs of distress * Plan of Care - Zuleyma Ball LPN - 05/09/2019 2224 EST Problem: Daily Care Plan Goals Goal: Care Plan Documentation Outcome: Met This Shift Flowsheets (Taken 05/09/2019 2222) Area of Focus: Skin Integrity Goal This Shift: Pt will have less or no itch with relief from creams and meds Note: C/o itch-benadryl PRN given with relief noted. Denies pain. Voiding freely. Skin care orders done. All needs met. Safety maintained. CTM * Plan of Care - Dimple Winters RN - 05/09/2019 1316 EST Problem: Daily Care Plan Goals Goal: Care Plan Documentation Outcome: Met This Shift Flowsheets (Taken 05/09/2019 1101) Area of Focus: Safety Goal This Shift: pt remains free from falls this shift Note: (I) in room with RW * Plan of Care - Paulina Alvarez RN - 05/09/2019 0402 EST Problem: Daily Care Plan Goals Goal: Care Plan Documentation Outcome: Met This Shift Flowsheets (Taken 05/09/2019 0100) Area of Focus: Sleep Goal This Shift: Adequate sleep Pt appeared to sleep well. No c/o pain, no signs of distress. Turns in bed independently. * Plan of Care - Sara Wilburn RN - 05/08/2019 2204 EST 05/08/19 1718 Care Plan Focus Area of Focus Mobility Goal This Shift Pt will ambulate in the hallway this evening Outcome Met: Pt ambulated 594 feet with walker this evening. No c/o pain during ambulation. Pt elated over the prospects of leaving at the end of the week. * Plan of Care - Dimple Winters RN - 05/08/2019 1258 EST Problem: Daily Care Plan Goals Goal: Care Plan Documentation Outcome: Ongoing Flowsheets (Taken 05/08/2019 0948) Area of Focus: Skin Integrity Goal This Shift: skin will continue to show healing with current interventions Note: Rash continues to dissipate with current treatment; coccyx area continues to slowly heal with dailydsg; will cont to monitor daily; pt to discharge home potentially the end of the week; pt feels hisgirlfriend will be able to learn daily dsg changes if [facility]NA is unable to do them; asked pt to have his girlfriend come in to learn 1400: [facility] called and heads up given to Tanvi; VNA is willing to come into the home daily for dressing changes if needed * Plan of Care - Mehreen Mann RN - 05/08/2019 0442 EST Data: Pt is s/p ARDS and requires adequate rest for healing. Action: Comfortable environments, timely pain assessments/interventions. Response: Pt was observed to be sleeping through the night. No c/o pain. Will continue to monitor. MEHREEN MANN RN 05/08/2019 4:42 * Plan of Care - Zuleyma Ball LPN - 05/07/2019 2336 EST Problem: Daily Care Plan Goals Goal: Care Plan Documentation Note: C/o itch-benadryl PRN given with relief noted. Denies pain. Voiding freely. Skin care orders done. All needs met. Safety maintained. CTM * Plan of Care - Sara Wilburn RN - 05/07/2019 1845 EST 05/07/19 1803 Care Plan Focus Area of Focus Mobility Goal This Shift Pt will ambulate in the hallway this evening Outcome Met : After a shower and dressing changes pt decided that he wanted to walk to the nurse's station and back. They want me to do that. He tolerated it well. * Plan of Care - Julianna Schilling RN - 05/07/2019 1254 EST Data: Pt with hx: Severe COPD, ARDs, PNA. Old trach stoma - with air leak. Occlusive dressing in place CDI. LS diminished at bases. 02 sat 100% on room air. Reports WHEELER, reports PT and mobility is limited due to WHEELER. Ambulated in hallway 5x/day over the weekend. New to this admission inhalers. Action: Spiriva/Dulera scheduled - educated pt on use of inhalers and spacer. Checked 02 sat. Monitored resp status. Assessed and treated skin per orders. Response: Pt denies any difficulty breathing. Will continue to monitor. JULIANNA SCHILLING RN 05/07/2019 12:57 Problem: Daily Care Plan Goals Goal: Care Plan Documentation Outcome: Ongoing Flowsheets (Taken 05/07/2019 0815) Area of Focus: Skin Integrity Goal This Shift: Maintain skin integrity Problem: Respiratory: Goal: Ability to maintain a clear airway will improve Outcome: Ongoing * Plan of Care - Liat Villatoro RN - 05/07/2019 0545 EST Problem: Daily Care Plan Goals Goal: Care Plan Documentation Flowsheets (Taken 05/07/2019 0000) Area of Focus: Sleep Goal This Shift: pt will receive adequate restful night sleep this shift Note: Pt s/p a fib with RVR, h/o ARDS hypoxia SIRISHA Pt with no distress during the night. Respirations even and unlabored. Used urinal at intervals andcontinent of urine. Pt changed positions in bed. Pt noted having restful sleep. Call light at bedside. * Plan of Care - Domenica Mcghee RN - 05/06/2019 2044 EST Problem: Daily Care Plan Goals Goal: Care Plan Documentation Outcome: Met This Shift Flowsheets (Taken 05/06/2019 1700) Area of Focus: Mobility Goal This Shift: Pt will ambulate x3 this shift Note: Pt successfully ambulated x5 today. Nursing ambulated with pt x3 this shift from room to dining room and nursing station. Pt tolerated ambulation well. No SOB noted. Gait steady, pt reports feeling good while walking. WCTM and ambulate with pt. * Plan of Care - Julianna Schilling RN - 05/06/2019 1502 EST Images from the original note were not included. Problem: Daily Care Plan Goals Goal: Care Plan Documentation Outcome: Ongoing Flowsheets (Taken 05/06/2019 0839) Area of Focus: Mobility Goal This Shift: ambulate x3 this shift Ambulated x2 with nursing, no safety concerns. Good appetite. Changed stoma dressing to more occlusive dressing. Skin care per orders. Denies pain. JULIANNA SCHILLING RN 05/06/2019 15:03 Below is right acromion. Red + blanching. Mepilex border in place. * Plan of Care - Liat Villatoro RN - 05/06/2019 0658 EST Problem: Daily Care Plan Goals Goal: Care Plan Documentation Flowsheets (Taken 05/06/2019 0400) Area of Focus: Sleep Goal This Shift: pt will receive effective restful night sleep Note: Pt noted sleeping eyes closed respirations even and unlabored on rounds. Pt denies pain or discomforts. Turning self well in bed. Continent and uses urinal. Quiet environment maintained. Call light at bedside. Pt rings for needs. * Plan of Care - Domenica Mcghee RN - 05/05/2019 2234 EDT Problem: Daily Care Plan Goals Goal: Care Plan Documentation Outcome: Met This Shift Flowsheets (Taken 05/05/2019 1600) Area of Focus: Mobility Goal This Shift: Pt will ambulate x3 this shift Note: Pt has ambulated x3 this shift with rolling walker from room to nurses station. Pt tolerated ambulation well. Steady gait, consistent pace, balance maintained. No SOB. In total pt ambulated x5 today with nursing between day and evening shift. * Plan of Care - Julianna Schilling RN - 05/05/2019 1437 EDT Problem: Daily Care Plan Goals Goal: Care Plan Documentation Outcome: Ongoing Flowsheets (Taken 05/05/2019 0804) Area of Focus: Safety Goal This Shift: safe transfers Problem: Pressure Ulcer Prevention Goal: Absence Of Pressure Ulcer Outcome: Ongoing Data: Ambulated with nursing x2 to nurses station using RW with supervision. WHEELER. Pt reports its his baseline due to pneumonia. Old trach site leaking air with dry drsg + tegaderm in place. Action: Skin care per orders. Response: No safety concerns. JULIANNA SCHILLING RN 05/05/2019 14:37 * Plan of Care - Domenica Mcghee RN - 05/04/2019 2234 EDT Problem: Daily Care Plan Goals Goal: Care Plan Documentation Outcome: Met This Shift Flowsheets Taken 05/04/2019 2233 Area of Focus: Safety Taken 05/04/2019 1643 Goal This Shift: Pt will remain safe all shift Note: Pt remained safe all shift. Ambulated x2. Tolerated well. * Plan of Care - Yesenia Burnham RN - 05/04/2019 1322 EDT 05/04/19 nutrition Data: pt is very thin - he states he lost about 30 lbs during mar 2019 and apr 2019 when very sickw/sepsis. Pt's appetite appears to be fairly good. MD orders are for wkly wt checks. Pt has Stage 1skin alteration over bilat post. Shoulder bev prominences, he also has sl amount of stage 1 skin alteration over a few of his lower back spinal prominences. He has an unstageable pressure ulcer to t he lower buttocks crease. Action: monitored pt's intake of food/calories during AM and noon meal today and for any snacks. Encouraged pt to eat more. Assured up to date wt check. Response: pt's wt check is up to date: on admission on 04/23, pt weighed 119 lbs; on 05/02 pt weighed 123 lbs. Pt ate all of each AM and noon meals today (omelette+boost) and (pasta +boost) and all of mid AM snack of a shake made w/mightly shake etc. Continue to monitor . YESENIA BURNHAM RN 05/04/2019 13:22 * Plan of Care - Zuleyma Ball LPN - 05/04/2019 0554 EDT Problem: Daily Care Plan Goals Goal: Care Plan Documentation Outcome: Met This Shift Flowsheets (Taken 05/04/2019 0000) Goal This Shift: pt will remain safe Note: Pt able to make needs known. Turns and positions self. Voiding freely. No complaints. Safety maintained * Plan of Care - Linda Lopez RN - 05/03/2019 1427 EDT Problem: Pressure Ulcer Prevention Goal: Absence Of Pressure Ulcer Outcome: Ongoing Andrew score 18 on skin rounds. Bilateral elbows and heels red (rash), intact, blanching- elbow pads provided. Coccyx w/ DTPI that evolved to Unstageable, per Viktoria Farr. Slough present, surrounding blanchable erythema. Flat red rash present from neck to feet, intact, blanching. Bilateral acromions red, intact, blanching- mepilex applied. Mepilex sacrum border reapplied to coccyx. Pt is continent of bowel/bladder. Pt able to reposition independently. Pt has had a Nutrition consult this admission. Provided pressure ulcer prevention education & handout, pt verbalized understanding of education. Collaborated w/ PT, who provided a pressure relieving cushion for WC. Pt is on a [facility] bed.Will continue to monitor skin integrity this admission as needed. * Plan of Care - Dimple Winters RN - 05/03/2019 1330 EDT Problem: Daily Care Plan Goals Goal: Care Plan Documentation Outcome: Ongoing Flowsheets (Taken 05/03/2019 1010) Area of Focus: Skin Integrity Goal This Shift: skin will continue to show improvement with current treatment Note: Skin rounds completed on patient this shift; see nursing note * Patient Care Conference - Eladio Otero MD - 05/03/2019 1046 EDT Inpatient Acute Rehabilitation Unit - Interdisciplinary Team Conference Note Shirlene Bryan 64 y.o. male Team Conference Date/Time: 05/03/2019 @1205 Admit Date/Time: 04/23/2019 13:32 Primary Rehab diagnosis: Debility Comorbid Conditions: Patient Active Problem List Diagnosis ??? Atrial fibrillation with RVR (HCC-CMS) ??? Acute respiratory failure with hypoxia (HCC-CMS) ??? Septic shock (HCC-CMS) ??? ARDS (adult respiratory distress syndrome) (HCC-CMS) ??? SIRISHA (acute kidney injury) (HCC-CMS) ??? Anemia ??? Thrombocytopenia (HCC-CMS) ??? Bacteremia ??? Fever ??? Encephalopathy ??? Upper gastrointestinal bleed Progress towards goals: Nursing: Skin Care: rash treatment BID,, Wound Care: coccyx wound dressing daily,, Medication Management: anticipate pt will be able to manage his own medications once discharged home, and Respiratory/Airway Management: education provided and continues ie: inhaler use; inspirometer and accapella use, OT: Notable gains include improved endurance during self care and UE exercises and increased fine motor control/coordination and Progress limited primarily by limited endurance, low BUE strength, andfatigue. . See below for additional barriers PT: Notable gains include improved functional endurance and strength with increased ambulation distances, no incidence of O2 desaturation and Progress limited primarily by debility from prolonged andcomplicated hospital stay. See below for additional barriers Gait: The patient ambulates with supervison, cues and assistance of 1 with rolling walker for 230 feet. Gait deviations: Decreased B step length and gait speed, increased BUE WB on RW. Stairs: Patient negotiates with supervison, cues and assistance of 1 up and down 4 stairs with 2 rails. Self-Care:Bed Mobility: Sit->supine: independently with flat bed and no rails. Supine->sit: independently with flat bed and no rails. Transfers: Bed < > Chair: stand-pivot with supervison, cues and assistance of 1 SECURITY ASSISTANT: Patient currently presents with oropharyngeal swallow function that is within functional limits. He demonstrates adequate oral containment, mastication, control and transport with all textures presented today. Swallow response is timely with adequate excursion and no overt s/s of penetration/as piration were noted with any consistencies presented today. He continues with air escape at his stoma site, but this does not appear to impact the safety of his swallow. He demonstrates quantifiable gains in swallow function as measured by The Eating Assessment Tool-10. Patient is now at low risk of aspiration at this time. Anticipate patient will tolerate current diet texture upgrade to regular and maintain PO diet. Do not anticipate further need for SECURITY ASSISTANT services at this time. Patient to be discharged from SECURITY ASSISTANT services. ? Medical Complications: Continued rash management Level of Risk & Environmental Privilege: A Pre-Hospital Living Setting and Support System: Lives alone in [place], [place] in [place]level [facility] but will initially stay with gf at discharge at home - single level with 3 BHAVANI; 24-hour assist??from girlfriend but she has medical issues and is limited in the physical assist she can provide Barriers to Discharge: Impaired mobility due to debility from pneumonia complicated by sepsis, ARDS, renal failure, hemodynamic instability, COPD and Afib with RVR - pt requires supervision with bed mobility and W/C propulsion and physical assist for sit <> stands, transfers, and ambualtion, which contribute to difficulty with participation??in self care, work, and leisure activities.?Functional deficits with self-care and mobility with ??impaired cardiopulmonary status, decreased strength, decreased functional strength and endurance, decreased activity tolerance, impaired communication??and impaired balance. Efforts to Remove Barriers: Patient is tolerating Acute IP Rehab Program intensity well and making significant functional progress. Full rehab program to increase the patient's level of independence with self-care and functional mobility to decrease the amount of assistance and/or supervision needed at discharge. Additional Team Conference Discussion: Team discussed improved rate of progress in past few days. SECURITY ASSISTANT indicates discontinuing services. Patient is making progress towards established Acute IP Rehab goals as anticipated. Current discharge date remains appropriate for safe, successful discharge. Equipment needs are being address and are anticipated to be met by discharge. Patient/family education is in process and team feels patient/family will be ready for discharge as scheduled. Anticipated Actual Discharge Disposition: Discharge Location: significant other's home Caregiver at Discharge: Spouse/significant other/domestic partner Supervision/Assistance at Discharge: Occasional supervision Revised Expected Discharge Date: 05/15/19 Follow-Up Services: Home health with Nursing, OT, PT and home health aid Anticipated Home Care Needs: None anticipated Reassessment of goals or treatment program: Goals maintained Assessment of need for Acute Rehabilitation level of care: The expected course of treatment continues to require an interdisciplinary approach to maximize interventions and progress towards functional goals established., The patient generally participates actively in therapy at expected intensity levels., Continue therapies by OT and PT and For a total of 3 hours per day, 5 days per week Additional interdisciplinary team information: Patient/Caregiver Communication: Patient/family are aware of discharge plan and estimated length ofstay Full name and professional designation of each interdisciplinary team truck driver physically in attendance for this team conference. Rehabilitation Physician: Eladio Otero MD I lead this weekly interdisciplinary team meeting and was responsible for making the final decisions regarding the patient???s treatment in the IRF. I concur with all decisions made by the interdisciplinary team. Manufacturing Scheduler: Ange Jovel, mexican food maker hand: Judi Shin RN Nurse: Dimple Winters RN OT: Mar Tello OT PT: Elizabeth Licea PT SECURITY ASSISTANT: Jody Whittington, [facility]-SECURITY ASSISTANT * Plan of Care - Zuleyma Ball LPN - 05/03/2019 0527 EDT Problem: Daily Care Plan Goals Goal: Care Plan Documentation Flowsheets (Taken 05/03/2019 0000) Goal This Shift: pt will remain safe this shift Note: Pt able to make needs known. Turns and positions self. Voiding freely. No complaints. Safety maintained * Plan of Care - Dave Flowers RN - 05/02/20192200 EDT 05/02/192139 Care Plan Focus Goal This Shift will review safe ambulation (goal met) Pt is A and O x3, verbal with wants/needs, using call lite and awaiting assist CG/min assist to ambulate to/fro bathroom and in hallway using RW. Did well. Pt encouraged to use bathroom vs urinal during day and eves for better urination/larger voids and for small and more frequent walks. raised red confluent rash persists but is no longer burning all over, this sensation is now limitedto LE's. Creams applied as per MD orders. Ate/drank well. No difficulty swallowing noted. Trach site dressing changed, continues to have mild air leak noticeable when talking. Using IS/acapella (I). Continues to use citadel mattress. Turns self (I). Dressing at coccyx cdi. * Plan of Care - Dimple Winters RN - 05/02/2019 1324 EDT Problem: Daily Care Plan Goals Goal: Care Plan Documentation Outcome: Ongoing Flowsheets (Taken 05/02/2019 0948) Area of Focus: Respiratory Goal This Shift: pt will maintain adequate airway exchange this shift Note: Pt able to ambulate with therapy without need for oxygen; lungs diminished; no coughing; encouragedpt to use inspirometer and acapella; adequate airway exchange noted * Plan of Care - Paulina Alvarez RN - 05/02/2019 0701 EDT Problem: Daily Care Plan Goals Goal: Care Plan Documentation Outcome: Met This Shift Flowsheets (Taken 05/02/2019 0118) Area of Focus: Sleep Goal This Shift: Adequate sleep Pt slept well, no signs of distress, no c/o pain. * Plan of Care - Tanvi Bennett RN - 05/01/2019 1333 EDT Problem: Daily Care Plan Goals Goal: Care Plan Documentation Outcome: Met This Shift Flowsheets Taken 05/01/2019 1329 Area of Focus: Mobility Taken 05/01/2019 1011 Goal This Shift: Ambulate safely with rehab staff Note: Ambulating safely with rehab staff. No BM this shift. Rash all over body, lotion applied. Mepilex changed to buttocks. Using urinal. * Plan of Care - Vanda Weiner RN - 04/30/2019 2212 EDT Problem: Daily Care Plan Goals Goal: Care Plan Documentation Outcome: Met This Shift Area of Focus: Skin Integrity Data: Respiratory Failure, septic shock, pressure injury, and entire body rash. Action: Healing trach site. Kenolog cream to bilateral legs to top of feet, bilateral arms and backfor deep red rash. Eucerin cream to bottoms of bilateral peeling feet. Citadel bed in use and pt isable to turn self. Consumed 100% of Dysphagia 4 with thins supper. Adequate fluid intake. Pressure injury, daily dressing change with Sanytl. Response: Skin integrity maintained. Vanda Weiner RN 04/30/2019 22:05 * Plan of Care - Dimple Winters RN - 04/30/2019 1336 EDT Problem: Daily Care Plan Goals Goal: Care Plan Documentation Outcome: Ongoing Flowsheets (Taken 04/30/2019 1024) Area of Focus: Skin Integrity Goal This Shift: skin will continue to heal with current interventions Note: Some improvement noted in coccyx area ulcer; MD in and photos taken; rash on body remains unchanged; MD assessed; current kenalog ointment continues; will cont to monitor * Plan of Care - Zuleyma Ball RN - 04/30/2019 0649 EDT Problem: Daily Care Plan Goals Goal: Care Plan Documentation Note: Pt able to make needs known. Turns and positions self. Voiding freely. Safety maintained * Plan of Care - Jennifer Marrero RN - 04/29/20192051 EDT Data: Pt recovering from Pneumonia/MSSA bacteremia with acute hypoxic respiratory failure/ARDS requires robust pulmonary hygiene to improve lung function. Action: Promoted use of acapella and incentive spirometer; encouraged mobility. Response: Pt up to use BR 2x this shift; pt able to pull IS to 750. Pt utilizing both IS and acapella independently. Air leak at trach site but no SOB; lungs clear but diminished to auscultation bilaterally. Jenniefr Marrero RN 04/29/2019 20:53 * Plan of Care - Dimple Winters RN - 04/29/2019 1337 EDT Problem: Daily Care Plan Goals Goal: Care Plan Documentation Flowsheets (Taken 04/29/2019 0946) Area of Focus: Skin Integrity Goal This Shift: skin will show signs of healing with current interventions Note: Rash continues to be red and angry most of the time; MD cont to be aware and new treatment-kenalog cream-continues; will cont to monitor * Plan of Care - Delores Jeffries RN - 04/29/2019 0508 EDT Problem: Daily Care Plan Goals Goal: Care Plan Documentation Outcome: Met This Shift Flowsheets (Taken 04/29/2019 0230) Area of Focus: Sleep Goal This Shift: Adequate sleep this shift Pt appeared to sleep well this shift. Denied pain/discomfort. Pt able to turn/repo self. Using urinal independently - needs assist with emptying. No s/sx of distress noted. Continue to monitor. * Plan of Care - Dimple Winters RN - 04/28/2019 1311 EDT Problem: Daily Care Plan Goals Goal: Care Plan Documentation Outcome: Met This Shift Flowsheets (Taken 04/28/2019 1300) Area of Focus: Safety Goal This Shift: pt will remain free from falls this shift * Plan of Care - Delores Jeffries RN - 04/28/2019 0531 EDT Problem: Daily Care Plan Goals Goal: Care Plan Documentation Outcome: Met This Shift Flowsheets (Taken 04/27/2019 2341) Area of Focus: Sleep Goal This Shift: Adequate sleep this shift Pt appeared to sleep well this shift. Voiding in urinal independently. Denied pain when asked. Continue to monitor. * Plan of Care - Judi Quiñonez RN - 04/27/2019 1446 EDT Problem: Daily Care Plan Goals Goal: Care Plan Documentation Flowsheets (Taken 04/27/2019 1000) Area of Focus: Respiratory Goal This Shift: patient will clear trach secretions Note: Patient encouraged to use Acapella gadget to help deep breathe and clear airways. He has less mucous secretions today. Still basilar fine crackles audible bilaterally. He declines an occlusive dressing on the trach dressing, he states having an open dressing feels better than ever before. Left open dressing (gauze and tape) in place for now. * Plan of Care - Je Jansen RN - 04/27/2019 0700 EDT Problem: Pressure Ulcer Prevention Goal: Absence Of Pressure Ulcer Outcome: Ongoing Patient repositions himself in bed. Pt is on a Citadel bed. Pt A&O x 3. Denied pain. Using urinal independently using [id number] shift of 04/26-04/27/2019. * Plan of Care - Domenica Mcghee RN - 04/26/2019 2243 EDT Pt has reported a soothing effect after application and monitoring of ointment. * Plan of Care - Judi Quiñonez RN - 04/26/2019 1418 EDT Problem: Daily Care Plan Goals Goal: Care Plan Documentation Outcome: Met This Shift Flowsheets (Taken 04/26/2019 0982) Area of Focus: Discharge Plan Goal This Shift: To b determioned at team conference Note: Patient to d/c to girlfriend's home tentatively on 05/15. Plan is for him to have home health RN, PT and OT. * Plan of Care - Linda Lopez RN - 04/26/2019 1333 EDT Problem: Pressure Ulcer Prevention Goal: Absence Of Pressure Ulcer Outcome: Ongoing Andrew score 19 on skin rounds. Bilateral elbows and heels red (rash), intact, blanching. Coccyx w/DTPI that evolved to Unstageable, per Viktoria Farr. Slough present, surrounding blanchable erythema. Rash present from neck to feet, red, intact, blanching. Mepilex sacrum border reapplied to coccyx.Pt is continent of bowel/bladder. Pt able to reposition independently. Pt has had a Nutrition consult this admission. Provided pressure ulcer prevention education & handout, pt verbalized understanding of education. Collaborated w/ PT, who provided a pressure relieving cushion for WC. Pt is on a Citadel bed. Will continue to monitor skin integrity this admission as needed. * Patient Care Conference - Eladio Otero MD - 04/26/2019 0984 EDT NInpatient Acute Rehabilitation Unit - Interdisciplinary Team Conference Note Shirlene Bryan 64 y.o. male Team Conference Date/Time: 04/26/2019 @1205 Admit Date/Time: 04/23/2019 13:32 Primary Rehab diagnosis: Debility Comorbid Conditions: Patient Active Problem List Diagnosis ??? Atrial fibrillation with RVR (HCC-CMS) ??? Acute respiratory failure with hypoxia (HCC-CMS) ??? Septic shock (HCC-CMS) ??? ARDS (adult respiratory distress syndrome) (HCC-CMS) ??? SIRISHA (acute kidney injury) (HCC-CMS) ??? Anemia ??? Thrombocytopenia (HCC-CMS) ??? Bacteremia ??? Fever ??? Encephalopathy ??? Upper gastrointestinal bleed Progress towards goals: Nursing: Skin Care: Pt. has an unstageable wound in the coccyx area, being treated with collagenaseat this time,, Positioning: patient aware and capable of offloading pressure and repositioning during waking hours,, Respiratory/Airway Management: patient has a trach site healing, covered with tegaderm, however violent coughing produces leaks on the dressing, and Nutritional deficits: patient is very patient is underweigth (BMI 16.4) and has limited protein intake (vegetarian diet). He is usingBoost as a nutritional supplement but given pressure wound and constitution, may not be enough., OT: Notable gains includeinsight to functional deficits and awareness of the need for rest breaks. and Progress limited primarily bylow functional activity tolerance, fatigue, and BUE strength deficits.. See below for additional barriers PT: Notable gains include improved O2 saturation with physical activity, slightly increased ambulation distances/activity tolerance, improved use of compensatory mechanisms for activity tolerance such as pacing and pursed lip breathing and Progress limited primarily by fatigue, low activity tolerance, decreased spO2. See below for additional barriers Gait: The patient ambulates with min contact assist of 1 with rolling walker for 58 feet max with W/C follow. Gait deviations: Decreased B step length and decreased gait speed, intermittent step to gait, increased BUE WB on RW, frequent need for seated rest breaks. Stairs: Not evaluated due to medical concerns. Self-Care:Bed Mobility: Sit->supine: with supervison, cues and assistance of 1 with flat bed and no rails. Supine->sit: with supervison, cues and assistance of 1 with flat bed and no rails. Transfers: Bed < > Chair: stand-step with min contact assist of 1 with RW SECURITY ASSISTANT: Patient currently presents with a mild-moderate pharyngeal phase dysphagia characterized by multiple swallows with all textures presented and a cough x1 with thin liquids. Patient demonstrates audible air escape at stoma site??(covered by dressing)??while chewing, swallowing and talking. Etiology of dysphagia is mechanical and likely secondary to altered pressures and sensation related to unhealed stoma site, tracheostomy placement and compounded by his overall deconditioned state. Patientremains at increased risk of aspiration at this time. Compensatory strategies of breath hold technique with liquids and controlled rate/size of bolus appear effective in decreasing risk of aspiration. Prognosis for improvement in swallow function is judged to be good at this time and anticipate that as patient gets stronger during acute inpatient rehab,??his swallowing function and physiology will continue to improve. ? Medical Complications: Rash, Sacral pressure sore, pulmonary status Level of Risk & Environmental Privilege: A Pre-Hospital Living Setting and Support System: Lives alone in [place], [place] in [place]-level [facility] but will initially stay with gf at discharge at home - single level with 3 [address]; 24-hour assist from girlfriend but she has medical issues and is limited in the physical assist she can provide Barriers to Discharge: Impaired mobility due to debility from pneumonia complicated by sepsis, ARDS, renal failure, hemodynamic instability, COPD and Afib with RVR - pt requires supervision with bed mobility and W/C propulsion and physical assist for sit <> stands, transfers, and ambualtion, which contribute to difficulty with participation in self care, work, and leisure activities. Functional deficits with self-care and mobility with impaired cardiopulmonary status, decreased strength, decreased functional strength and endurance, decreased activity tolerance, impaired communication and impaired balance. Efforts to Remove Barriers: Patient is tolerating Acute IP Rehab Program intensity well and making significant functional progress. Full rehab program to increase the patient's level of independence with self-care and functional mobility to decrease the amount of assistance and/or supervision needed at discharge. Additional Team Conference Discussion: Team discussion of initial evaluations, progress to date andgoals for Inpatient Acute Rehab program. Team discussed limitations related to decreased oxygen saturation and decreased endurance and activity tolerance. Anticipated Actual Discharge Disposition: Discharge Location: significant other's home Caregiver at Discharge: Spouse/significant other/domestic partner Supervision/Assistance at Discharge: Occasional supervision Discharge Date: 05/15/19 Follow-Up Services: Home health with Nursing, OT, PT and home health aid Anticipated Home Care Needs: Oxygen Reassessment of goals or treatment program: Goals maintained Assessment of need for Acute Rehabilitation level of care: The expected course of treatment continues to require an interdisciplinary approach to maximize interventions and progress towards functional goals established., The patient generally participates actively in therapy at expected intensity levels., Continue therapies by OT, PT and SECURITY ASSISTANT and For a total of 3 hours per day, 5 days per week Additional interdisciplinary team information: Patient/Caregiver Communication: Nurse will inform patient/family of discharge plan and estimated length of stay Full name and professional designation of each interdisciplinary team truck driver physically in attendance for this team conference. Rehabilitation Physician: Eladio Otero MD I lead this weekly interdisciplinary team meeting and was responsible for making the final decisions regarding the patient???s treatment in the IRF. I concur with all decisions made by the interdisciplinary team. Manufacturing Scheduler: Ange Jovel RN Case Manager: Judi Shin RN Nurse: Judi Lind RN OT: Mar Tello OT PT: Elizabeth Licea PT SECURITY ASSISTANT: Jody Whittington [facility]-SECURITY ASSISTANT * Plan of Care - Ivonne Cole RN - 04/26/2019 0452 EDT Problem: Daily Care Plan Goals Goal: Care Plan Documentation Flowsheets (Taken 04/26/2019 0100) Area of Focus: Sleep Goal This Shift: Restful Sleep Data: Pt is s/p ARDS, sepsis, pneumonia. Alert and oriented x 3. Continent of bowel and bladder. Uses urinal independently overnight. Action: Hourly rounding, emptying of urinal. Response: Pt rings appropriately, sleeping well this shift with no c/o pain. IVONNE COLE RN 04/26/2019 4:52 * Plan of Care - Zuleyma Ball RN - 04/25/2019 2231 EDT Problem: Daily Care Plan Goals Goal: Care Plan Documentation Flowsheets (Taken 04/25/2019 1626 by Carolyne Woo LPN) Goal This Shift: rash will be less itchy Note: Benadryl PRN given for itch relief with positive effect noted. Denies pain at this time. Safety maintained. * Plan of Care - Dimple Winters RN - 04/25/2019 1347 EDT Problem: Daily Care Plan Goals Goal: Care Plan Documentation Outcome: Ongoing Flowsheets (Taken 04/25/2019 0901) Area of Focus: Skin Integrity Goal This Shift: skin will continue to show signs of healing Note: Pronounced rash continues on most areas of body; MD in to assess; ordered treatment applied; coccyxulcer dressing changed with MD assessment; will cont with current treatments and monitor * Plan of Care - Ivonne Cole RN - 04/25/2019 0527 EDT Problem: Daily Care Plan Goals Goal: Care Plan Documentation Outcome: Met This Shift Flowsheets (Taken 04/25/2019 0000) Area of Focus: Safety Goal This Shift: Pt will stay safe this shift Data: Pt is s/p respiratory distress syndrome, sepsis, SIRISHA. Alert and oriented x 3. Continent. Usesurinal overnight. Action: Hourly rounding, emptying of urinal. Response: Pt compliant with not transferring alone. Slept well this shift. No c/o pain. IVONNE COLE RN 04/25/2019 5:27 * Plan of Care - Dimple Winters RN - 04/24/2019 1348 EDT Problem: Daily Care Plan Goals Goal: Care Plan Documentation Outcome: Ongoing Flowsheets (Taken 04/24/2019 0901) Area of Focus: Skin Integrity Goal This Shift: rash will dissipate Note: Pt noted to have continued rash of which he was admitted with yesterday; MD reevaluated this shift;will cont to monitor; ointment/powder mixture to buttocks per order; ulcer dressing changed this AMto coccyx area; will cont to monitor all for healing; pt is (I) with bed mobility * Plan of Care - Sara Wilburn RN - 04/23/2019 2231 EDT 04/23/19 1844 Care Plan Focus Area of Focus Education Goal This Shift Pt will relate understanding of rehab philosophy of care, routines and protocols Outcome Met: Pt slept the first half of the evening. He then woke to engage in conversation about how he arrived here and what would take place here as he recovered. He was given his schedule with anexplanation. His significant other will be arriving over the next couple of days. He asked appropriate questions and at the end of the conversation he acknowledged that he had a sufficient understanding of what would take place during this admission. * Plan of Care - Dimple Winters RN - 04/23/2019 1425 EDT Pt [facility] [place] [facility] [place]; no c/o pain; pt was CG STPVT to the bed upon arrival; pt offered and accepted lunch; MD in to evaluate documented in this encounter Plan of Treatment Scheduled Referrals Name Type Priority Associated Diagnoses Orde r Schedule AMB CONS/FOLLOW UP HOME HEALTH SERVICES Outpatient Referral Routine Acute respiratory failure with hypoxia (HCC-CMS) ARDS (adult respiratory distress syndrome) (HCC-CMS) SIRISHA (acute kidney injury) (HCC-CMS) Physical debility Ordered: 05/11/2019 AMB CONS/FOLLOW UP ENT Outpatient Referral Routine ARDS (adult respiratory distress syndrome) (HCC-CMS) Acute respiratory failure with hypoxia (HCC-CMS) Leakage of tracheostomy site (HCC-CMS) Ordered: 05/12/2019 documented as of this encounter Procedures Procedure Name Priority Date/Time Associated Diagnosis Comments COMPLETE BLOOD COUNT Routine 05/10/2019 5:36 EST PREALBUMIN Routine 05/10/2019 5:36 EST CREATININE Routine 05/10/2019 5:36 EST ELECTROLYTES Routine 05/10/2019 5:36 EST PRESSURE ULCER EVALUATION AND TREAT Routine 04/23/2019 13:44 EDT documented in this encounter Results * (ABNORMAL) PREALBUMIN (05/10/2019 5:36 EST) Prealbumin 16(L) 20 - 40 mg/dL 05/10/2019 13:05 [facility] Blood specimen (specimen) BLOOD SPECIMEN / Unknown 05/10/2019 5:36 EST 05/10/2019 7:12 EST Martha Reddy MD CHEMISTRY & BLOOD GAS ORDERA BLES Final Result Performing Organization Address [facility] de Phone Number [facility] [address] [place] [address] * (ABNORMAL) CREATININE (05/10/2019 5:36 EST) Creatinine 0.65(L) 0.66 - 1.25 mg/dl 05/10/2019 7:46 [facility] GFR, Calculated 102 >60 ml/min/1.7 3m2 05/10/2019 7:46 [facility] Comment: eGFR calculated using CKD-EPI equation for non Americans. Multiply eGFR by 1.16 for Americans. Performed at [facility] [place], [place] Blood specimen (specimen) BLOOD SPECIMEN / Unknown 05/10/2019 5:36 EST 05/10/2019 7:12 EST Martha Reddy MD CHEMISTRY & BLOOD GAS ORDERA BLES Final Result Performing Organization Address [facility] de Phone Number [facility] [address] [place] [address] * (ABNORMAL) ELECTROLYTES (05/10/2019 5:36 EST) Sodium 139 136 - 145 mEq/L 05/10/2019 7:46 [facility] Potassium 4.4 3.5 - 5.0 mEq/L 05/10/2019 7:46 [facility] Chloride 109 96 - 110 mEq/L 05/10/2019 7:46 [facility] CO2 20(L) 22 - 32 mEq/L 05/10/2019 7:46 [facility] Comment:Performed at [facility] [place], [place] Blood specimen (specimen) BLOOD SPECIMEN / Unknown 05/10/2019 5:36 EST 05/10/2019 7:12 EST Martha Reddy MD CHEMISTRY & BLOOD GAS ORDERA BLES Final Result [facility] [address] [place] [address] * (ABNORMAL) COMPLETE BLOOD COUNT (05/10/2019 5:36 EST) WBC 5.34 4.0 - 10.4 K/cmm 05/10/2019 7:28 [facility] RBC 3.73(L) 4.36 - 5.78 M/cmm 05/10/2019 7:28 [facility] Hemoglobin 10.7(L) 13.8 - 17.3 gm/dl 05/10/2019 7:28 [facility] HCT 33.3(L) 39.5 - 50.2 % 05/10/2019 7:28 [facility] MCV 89 81 - 95 fl 05/10/2019 7:28 [facility] MCH 28.7 27.6 - 33.0 pg 05/10/2019 7:28 [facility] MCHC 32.1(L) 32.8 - 36.4 gm/dl 05/10/2019 7:28 [facility] RDW-CV 18.8(H) <14.2 % 05/10/2019 7:28 [facility] RDW-SD 60.0(H) <46.0 fl 05/10/2019 7:28 [facility] Anisocytosis 1+ 05/10/2019 7:28 [facility] PLT 217 141 - 377 K/cmm 05/10/2019 7:28 [facility] MPV 10.6 9.5 - 12.7 fl 05/10/2019 7:28 [facility] Comment:Performed at [facility] [place], [place] Blood specimen (specimen) BLOOD SPECIMEN / Unknown 05/10/2019 5:36 EST 05/10/2019 7:12 EST us Martha Reddy MD HEMATOLOGY & PF4 ORDERABLES Final Result [facility] [address] [place] [address] documented in this encounter Visit Diagnoses Diagnosis Physical debility- Primary Debility, unspecified Atrial fibrillation with RVR (HCC-CMS) Atrial fibrillation Acute respiratory failure with hypoxia (HCC-CMS) Acute respiratory failure ARDS (adult respiratory distress syndrome) (HCC-CMS) Other pulmonary insufficiency, not elsewhere classified, following trauma and surgery SIRISHA (acute kidney injury) (HCC-CMS) Acute kidney failure, unspecified Physical debility Debility, unspecified Leakage of tracheostomy site (HCC-CMS) ARDS (adult respiratory distress syndrome) (HCC-CMS) Other pulmonary insufficiency, not elsewhere classified, following trauma and surgery SIRISHA (acute kidney injury) (HCC-CMS) Acute kidney failure, unspecified Atrial fibrillation with RVR (HCC-CMS) Atrial fibrillation Acute respiratory failure with hypoxia (HCC-CMS) Acute respiratory failure * Rehab Individualized Plan of Care - Eladio Otero MD - 04/25/2019 0813 EDT INDIVIDUALIZED OVERALL PLAN OF CARE I have reviewed this patient's pre-admission screening, post-admission evaluation, assessments fromthe involved therapy disciplines including OT and PT, and all other pertinent assessments to date in the development of this overall plan of care for SHIRLENE BRYAN Reason for admission is Active Problems: Atrial fibrillation with RVR (HCC-CMS) Acute respiratory failure with hypoxia (HCC-CMS) ARDS (adult respiratory distress syndrome) (HCC-CMS) SIRISHA (acute kidney injury) (HCC-CMS) The medical prognosis for this patient is good with continued supportive treatment including daily physician monitoring for all above medical problems. I anticipate that this patient will achieve a level of function such that he will complete functional mobility independently, and self cares independently at the time of discharge. The estimated length of stay is 2-3 weeks with planned discharge to the home setting. Based on his current impairments, functional status, complicating conditions, and other contributing factors, this patient continues to require a multidisciplinary team for three hours of OT and PT daily, at least 5 days a week, to achieve therapy and team goals. With this level of therapy, this pat ient can reasonably be expected to make measurable improvement as a result of the rehabilitation treatment. Time is stated as an average and may be varied day to day based on patient's individual daily needs. Eladio Otero MD documented in this encounter Administered Medications Inactive Administered Medications - up to 3 most recent administrations Medication Order MAR Action Action Date Dose Rate Site acetaminophen (TYLENOL) tablet 650 mg 650 mg, oral, EVERY 4 HOURS PRN, Starting on Tue04/23/19 at 1350, Until 05/12/19 at 1808, Pain, Routine Given 04/29/2019 20:41 EDT 650 mg cholecalciferol (Vitamin D3) tablet 1,000 Units 1,000 Units, oral, AT BEDTIME, First dose (after last modification) on Tue04/23/19 at 2100, Until Discontinued, Routine Given 05/11/2019 21:01 EST 1,000 Units Given 05/10/2019 20:38 EST 1,000 Units Given 05/09/2019 20:42 EST 1,000 Units collagenase (SANTYL) ointment topical, DAILY, First dose on Tue04/23/19 at 1415, Until Discontinued Given 05/03/2019 7:50 EDT Given 05/02/2019 8:21 EDT Given 05/01/2019 7:45 EDT DILTiazem (TIAZAC) ER capsule 120 mg 120 mg, oral, DAILY, First dose on Tue04/27/19 at 0800, Until Discontinued, Routine Given 05/12/2019 7:55 EST 120 mg Given 05/11/2019 8:08 EST 120 mg Given 05/10/2019 8:01 EST 120 mg diphenhydrAMINE (BENADRYL) capsule 25 mg 25 mg, oral, EVERY 6 HOURS PRN, Starting on Tue04/24/19 at 1257, Until 05/12/19 at 1808, Itching, Routine Given 05/10/2019 20:44 EST 25 mg Given 05/09/2019 20:50 EST 25 mg Given 05/08/2019 20:49 EST 25 mg enoxaparin (LOVENOX) injection 40 mg 40 mg, subcutaneous, DAILY, First dose on Tue04/24/19 at 0800, Until Discontinued, Routine Given 05/12/2019 7:56 EST 40 mg Abdominal Tissue Given 05/11/2019 8:08 EST 40 mg Given 05/10/2019 8:01 EST 40 mg Abdom inal Tissue ferrous sulfate EC tablet 324 mg 324 mg, oral, DAILY WITH BREAKFAST, First dose on Tue04/24/19 at 0800, Until Discontinued, Routine Given 05/12/2019 7:55 EST 324 mg Given 05/11/2019 8:08 EST 324 mg Given 05/10/2019 8:01 EST 324 mg guaiFENesin (MUCINEX) SR tablet 600 mg 600 mg, oral, 2 TIMES DAILY, First dose on Tue04/23/19 at 2100, Until Discontinued, Routine Given 05/07/2019 7:54 EST 6 00 mg Given 05/06/2019 20:51 EST 600 mg Given 05/06/2019 8:06 EST 600 mg ipratropium-albuterol (DUONEB) 0.5 mg-3 mg(2.5 mg base)/3 mL nebulizer solution 3 mL 3 mL, nebulization, 2 TIMES DAILY, 3 doses, First dose on Tue04/23/19 at 2100, Last dose on Tue04/24/19 at 2100, Routine Given 04/24/2019 20:27 EDT 3 mL Given 04/24/2019 8:18 EDT 3 mL Given 04/23/2019 20:59 EDT 3 mL melatonin tablet 5 mg 5 mg, oral, AT BEDTIME, First dose on Tue04/23/19 at 2100, Until Discontinued, Routine Given 05/11/2019 21:01 EST 5 mg Given 05/10/2019 20:38 EST 5 mg Given 05/09/2019 20:42 EST 5 mg metoprolol (LOPRESSOR) tablet 12.5 mg 12.5 mg, oral, 2 TIMES DAILY, 7 doses, First dose on Tue04/23/19 at 2100, Last dose on Tue04/26/19 at 2100, Routine Given 04/26/2019 20:41 EDT 12.5 mg Given 04/26/2019 7:42 EDT 12.5 mg Given 04/25/2019 20:52 EDT 12.5 mg miconazole (ALOE VESTA) 2 % ointment ointment topical, 2 TIMES DAILY, 14 doses, First dose on Tue04/23/19 at 2100, Last dose on Tue04/30/19 at 0800 Given 04/29/2019 2 0:22 EDT Given 04/28/2019 21:10 EDT Given 04/27/2019 21:09 EDT miconazole (ALOE VESTA) 2 % ointment ointment topical, 2 TIMES DAILY, 10 doses, First dose on Tue04/25/19 at 0930, Last dose on 04/29/19 at 2100 Given 04/26/2019 7:44 EDT Given 04/25/2019 20:57 EDT miconazole (DESENEX) 2 % powder topical, 2 TIMES DAILY, 14 doses, First dose on Tue04/23/19 at 2100, Last dose on Tue04/30/19 at 0800 Given 04/28/2019 2 1:10 EDT Given 04/27/2019 21:09 EDT Given 04/27/2019 8:05 EDT miconazole (DESENEX) 2 % powder topical, 2 TIMES DAILY, 10 doses, First dose on Tue04/25/19 at 0930, Last dose on 04/29/19 at 2100 Given 04/26/2019 7:44 EDT Given 04/25/2019 20:57 EDT miconazole (DESENEX) 2 % powder topical, 2 TIMES DAILY, 10 doses, First dose on Tue05/01/19 at 1445, Last dose on Tue05/05/19 at 2100 Given 05/03/2019 7:50 EDT Given 05/02/2019 21:38 EDT Given 05/02/2019 8:22 EDT mometasone-formoterol (DULERA) 100-5 mcg/actuation inhaler 2 Puff 2 Puff, inhalation, 2 TIMES DAILY, First dose on Tue04/25/19 at 0800, Until Discontinued, Routine Given 05/12/2019 7:57 EST 2 Puffs Given 05/11/2019 21:02 EST 2 Puffs Given 05/11/2019 8:09 EST 2 Puffs Multivitamins with Minerals tablet 1 Tab 1 Tablet, oral, DAILY, First dose on Tue04/24/19 at 0800, Until Discontinued, Routine Given 05/12/2019 7:5 5 EST 1 Tablet Given 05/11/2019 8:08 EST 1 Tablet Given 05/10/2019 8:00 EST 1 Tablet nicotine (NICODERM CQ) 7 mg/24 hr patch 1 Patch 1 Patch, transdermal, DAILY, First dose on Tue04/24/19 at 0800, Until Discontinued, Routine Patch Applied 04/25/2019 7:44 EDT 1 Patch Left Ar m Patch Applied 04/24/2019 8:17 EDT 1 Patch Ri ght Arm pantoprazole (PROTONIX) tablet 40 mg 40 mg, oral, AT BEDTIME, First dose (after last modification) on Tue04/23/19 at 2100, Until Discontinued, Routine Given 05/11/2019 21:01 EST 40 mg Given 05/10/2019 20:38 EST 40 mg Given 05/09/2019 20:43 EST 40 mg predniSONE (DELTASONE) tablet 10 mg 10 mg, oral, DAILY, 3 doses, First dose on Tue04/25/19 at 0845, Last dose on Tue04/27/19 at 0800, Routine Given 04/27/2019 8:04 EDT 10 mg Given 04/26/2019 7:42 EDT 10 mg Given 04/25/2019 8:25 EDT 10 mg senna (SENOKOT) tablet 2 Tab 2 Tablet, oral, AT BEDTIME, First dose on Tue04/23/19 at 2100, Until Discontinued, Routine Given 05/11/2019 21:01 EST 2 Tablets Given 05/09/2019 20:42 EST 2 Tablets Given 05/07/2019 21:19 EST 2 Tablets tiotropium (SPIRIVA) 18 mcg inhalation capsule 18 mcg 18 mcg, inhalation, DAILY, First dose on Tue04/25/19 at 0800, Until Discontinued, Routine Given 05/12/2019 7:57 EST 1 8 mcg Given 05/11/2019 8:07 EST 18 mcg Given 05/10/2019 8:03 EST 18 mcg triamcinolone (KENALOG) 0.1 % ointment topical, 2 TIMES DAILY, First dose on Tue04/26/19 at 2100, Until Discontinued Given 05/12/2019 7:59 EST Given 05/11/2019 21:02 EST Given 05/11/2019 8:09 EST Wool Alcoh-Min Srb-Ltqvc-Rsewr (EUCERIN) cream topical, PRN, Starting on Tue04/23/19 at 1347, Until Tue04/24/19 at 1030, Dry Skin Given 04/24/2019 8:18 EDT Wool Alcoh-Min Xkq-Ygrxn-Ywlqr (EUCERIN) cream topical, 2 TIMES DAILY, First dose (after last modification) on Tue04/24/19 at 1100, Until Discontinued Given 05/12/2019 7:59 EST Given 05/11/2019 21:02 EST Given 05/11/2019 8:09 EST documented in this encounter Discontinued Medications Medication Sig Discontinue Reason Start Date End Da te zinc sulfate (ZINCATE) 220 (50) mg capsule 1 Cap by per g tube route daily. 04/23/2019 04/23/2019 pantoprazole (PROTONIX) 40 mg tablet Take 1 Tab by mouth daily. Reorder 04/23/2019 05/10/2019 ferrous sulfate 324 mg (65 mg iron) tablet,delayed release (DR/EC) Take 1 Tab by mouth daily with breakfast. Reorder 04/23/2019 05/10/2019 cholecalciferol, Vitamin D3, 1,000 unit tablet Take 1 Tab by mouth daily. Reorder 04/23/2019 05/10/2019 melatonin 5 mg tablet Take 1 Tab by mouth at bedtime. Reorder 04/23/2019 05/10/2019 senna (SENOKOT) 8.6 mg tablet Take 2 Tabs by mouth at bedtime. Reorder 04/23/2019 05/10/2019 mometasone-formoterol (DULERA) 100-5 mcg/actuation Inhale 2 Puffs as directed 2 times daily for 30 days. 05/10/2019 05/11/2019 metoprolol (LOPRESSOR) 25 mg tablet Take 0.5 Tabs by mouth 2 times daily. 04/23/2019 05/12/2019 guaiFENesin (MUCINEX) 600 mg SR tablet Take 1 Tab by mouth 2 times daily. 04/23/2019 05/12/2019 ipratropium-albuterol (DUONEB) 0.5 mg-3 mg(2.5 mg base)/3 mL nebulizer solution Take 3 mL by nebulization 2 times daily. 04/23/2019 05/12/2019 albuterol (ACCUNEB) 2.5 mg /3 mL (0.083 %) nebulizer solution Take 3 mL by nebulization every 4 hours as needed for Wheezing. 04/23/2019 05/12/2019 nicotine (NICODERM CQ) 7 mg/[address] 1 Patch onto the skin daily. 04/24/2019 05/12/2019 collagenase (SANTYL) ointment Apply to sacral wound per wound care instructions 04/23/2019 05/12/2019 documented as of this encounter Active and Recently Administered Medications Times are shown in EST. Scheduled Medication Order 05/10/2019 05/11/2019 05/12/2019 cholecalciferol (Vitamin D3) tablet 1,000 Units 1,000 Units, oral, AT BEDTIME, First dose (after last modification) on Tue04/23/19 at 2100, Until Discontinued, Routine 2037 (Given - Provider: Domenica Mcghee RN) 2100 (Given - Provider: Adrien Perkins LPN) DILTiazem (TIAZAC) ER capsule 120 mg 120 mg, oral, DAILY, First dose on Tue04/27/19 at 0800, Until Discontinued, Routine 800 (Given - Provider: Dimple Winters RN) 08 (Given - Provider: Haley Lizama RN) 075 (Given - Provider: Dimple Winters RN) enoxaparin (LOVENOX) injection 40 mg 40 mg, subcutaneous, DAILY, First dose on Tue04/24/19 at 0800, Until Discontinued, Routine 800 (Given - Provider: Dimple Winters RN) 08 (Given - Provider: Haley Lizama RN) 0756 (Given - Provider: Dimple Winters RN) ferrous sulfate EC tablet 324 mg 324 mg, oral, DAILY WITH BREAKFAST, First dose on Tue04/24/19 at 0800, Until Discontinued, Routine 800 (Given - Provider: Dimple Winters RN) 08 (Given - Provider: Haley Lizama RN) 0755 (Given - Provider: Dimple Winters RN) melatonin tablet 5 mg 5 mg, oral, AT BEDTIME, First dose on Tue04/23/19 at 2100, Until Discontinued, Routine 2037 (Given - Provider: Domenica Mcghee RN) 2100 (Given - Provider: Adrien Perkins LPN) mometasone-formoterol (DULERA) 100-5 mcg/actuation inhaler 2 Puff 2 Puff, inhalation, 2 TIMES DAILY, First dose on Tue04/25/19 at 0800, Until Discontinued, Routine 802 (Given - Provider: Dimple Winters RN)2038 (Given - Provider: Domenica Mcghee RN) 808 (Given - Provider: Haley Lizama RN)2101 (Given - Provider: Adrien Perkins LPN) 075 (Given - Provider: Dimple Winters RN) Multivitamins with Minerals tablet 1 Tab 1 Tablet, oral, DAILY, First dose on Tue04/24/19 at 0800, Until Discontinued, Routine 799 (Given - Provider: Dimple Winters RN) 807 (Given - Provider: Haley Lizama RN) 754 (Given - Provider: Dimple Winters RN) pantoprazole (PROTONIX) tablet 40 mg 40 mg, oral, AT BEDTIME, First dose (after last modification) on Tue04/23/19 at 2100, Until Discontinued, Routine 2037 (Given - Provider: Domenica Mcghee RN) 2100 (Given - Provider: Adrien Perkins LPN) senna (SENOKOT) tablet 2 Tab 2 Tablet, oral, AT BEDTIME, First dose on Tue04/23/19 at 2100, Until Discontinued, Routine 2037 (Not Given - Provider: Domenica Mcghee RN - Reason: Patient/family refused) 2100 (Given - Provider: Adrien Perkins LPN) tiotropium (SPIRIVA) 18 mcg inhalation capsule 18 mcg 18 mcg, inhalation, DAILY, First dose on Tue04/25/19 at 0800, Until Discontinued, Routine 802 (Given - Provider: Dimple Winters RN) 806 (Given - Provider: Haley Lizama RN) 756 (Given - Provider: Dimple Winters RN) triamcinolone (KENALOG) 0.1 % ointment topical, 2 TIMES DAILY, First dose on Tue04/26/19 at 2100, Until Discontinued 802 (Given - Provider: Dimple Winters RN)2050 (Given - Provider: Domenica Mcghee RN) 08 (Given - Provider: Haley Lizama RN)2101 (Given - Provider: Adrien Perkins LPN) 758 (Given - Provider: Dimple Winters RN) Wool Alcoh-Min Sog-Dhjwt-Efyrk (EUCERIN) cream topical, 2 TIMES DAILY, First dose (after last modification) on Tue04/24/19 at 1100, Until Discontinued 08 (Given - Provider: Dimpel Winters, JORGE)2050 (Given - Provider: Domenica Mcghee, JORGE) 08 (Given - Provider: Haley Lizama RN)2101 (Given - Provider: Adrien Perkins LPN) 075 (Given - Provider: Dimple Winters RN) PRN Medication Order 05/10/2019 05/11/2019 05/12/2019 acetaminophen (TYLENOL) tablet 650 mg 650 mg, oral, EVERY 4 HOURS PRN, Starting on Tue04/23/19 at 1350, Until 05/12/19 at 1808, Pain, Routine albuterol (ACCUNEB) nebulizer solution 2.5 mg 2.5 mg, nebulization, EVERY 4 HOURS PRN, Starting on Tue04/23/19 at 1346, Until 05/12/19 at 1808, Wheezing, Routine diphenhydrAMINE (BENADRYL) capsule 25 mg 25 mg, oral, EVERY 6 HOURS PRN, Starting on Tue04/24/19 at 1257, Until 05/12/19 at 1808, Itching, Routine 2043 (Given - Provider: Domenica Mcghee, JORGE) documented in this encounter Orders Medications Ordered That Yosi ht Not Have Been Administered Count Last Ordered Date First Ordered Date NONFORMULARY MEDICATION 0.5 Inch 1 05/04/20 albuterol (ACCUNEB) nebulize r solution 2.5 mg 1 04/23/2019 cholecalciferol (Vitamin D3) tablet 1,000 Units 1 04/23/2019 pantoprazole (PROTONIX) tablet 40 mg 1 04/04 Nursing Count Last Ordered Date First Orde red Date NOTIFY CORRUGATED SHEET MATERIAL SHEETER 1 04/23/2019 PATIENT AT LOW RISK FOR VTE: RISK OF MECHANICAL PROPHYLAXIS OUTWEIGHS 1 04/23/2019 VTE PHARMACOLOGIC PROPHYLAXI S CURRENTLY ORDERED OR ON ALTERNATIVE THER 1 04/23/2019 Consult Count Last Ordered Date First Orde red Date CONSULT SMOKING CESSATION 1 04/25/2019 SECURITY ASSISTANT Count Last Ordered Date First Orde red Date SECURITY ASSISTANT CLINICAL SWALLOW EVALUATION AND TREAT 1 04/23/2019 Wound Ostomy Count Last Ordered Date First Orde red Date PRESSURE ULCER EVALUATION AND TREAT 1 04/23 Admission Count Last Ordered Date First Orde red Date STATUS: INPATIENT REHAB ADMISSION 1 019 Transfer Count Last Ordered Date First Orde red Date CHANGE ATTENDING TO: 1 05/09/2019 CHANGE PCP 1 05/09/2019 Discharge Count Last Ordered Date First Orde red Date DISCHARGE PATIENT 1 05/12/2019 Consult to Social Work Count Last Ordered Date First Ordered Date CONSULT SOCIAL WORK 1 04/23/2019 documented in this encounter Care Teams Commercial 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
--- OUTSIDE RECORDS SUMMARY | 2024-07-11 18:27 | XMS_ITS | Encounter Summary ---
Author Organization [facility] Address [address] [place] [address] Care Team Providers Care Circular Ripsaw Operator Name Role Phone Unknown, Provider Primary Care Provider Unava ilable Reason for Referral * (Routine) - Receiving Office to Obtain Authorization Specialty Diagnoses / Procedures Referred By Contac t Referred To Contact Vick Gibson MD Phone: tel: fax: Referral ID Status Reason Start Date Expiration Date Visits Requested Visits Authorized [id number] Receiving Office to Obtain Authorization Specialty Services Required 04/23/20 19 1 1 * (Routine) - Receiving Office to Obtain Authorization Specialty Diagnoses / Procedures Referred By Contac t Referred To Contact Vick Gibson MD Phone: tel: fax: Referral ID Status Reason Start Date Expiration Date Visits Requested Visits Authorized [id number] Receiving Office to Obtain Authorization Specialty Services Required 04/23/20 19 1 1 * (Routine) - Receiving Office to Obtain Authorization Specialty Diagnoses / Procedures Referred By Contac t Referred To Contact Vick Gibson MD Phone: tel: fax: Referral ID Status Reason Start Date Expiration Date Visits Requested Visits Authorized [id number] Receiving Office to Obtain Authorization Specialty Services Required 04/23/20 19 1 1 * (Routine) - Receiving Office to Obtain Authorization Specialty Diagnoses / Procedures Referred By Judy morgan Referred To Contact Vick Gibson MD Phone: tel: fax: Referral ID Status Reason Start Date Expiration Date Visits Requested Visits Authorized [id number] Receiving Office to Obtain Authorization Specialty Services Required 04/23/20 19 1 1 Encounter Details Date Type Department Care Team (Late st Contact Info) Description 03/17/2019 9:03 EDT - 04/23/2019 13:11 EDT Hospital Encounter [facility] Unit [address] [place] [address] [id number] Brian Romano DO [address] [phone] Leticia Galdamez MD [address] [phone] Shelly Guzman MD [address] [place] [address] Igor Maza MD [address] [phone] Acute respiratory failure with hypoxia (HCC-CMS) (Primary Dx); Atrial fibrillation with RVR (HCC-CMS); SIRISHA (acute kidney injury) (HCC-CMS); ARDS (adult respiratory distress syndrome) (HCC-CMS); Vitamin B12 deficiency anemia due to intrinsic factor deficiency; Bacteremia; Fever in other diseases; Upper gastrointestinal bleed Discharge Disposition: Rehab Facility Social History Tobacco Use Types Packs/Day Years [...] Sign Reading Time Taken Comments Blood Pressure 115/75 04/23/2019 1036 EDT Pulse 97 04/23/2019 0619 EDT Temperature 36.1 ??C (97 ??F) 04/23/2019 1036 EDT Respiratory Rate 24 04/23/2019 1036 EDT Oxygen Saturation 96% 04/23/2019 1036 EDT Inhaled Oxygen Concentration - - Weight 55.4 kg (122 lb 2.2 oz) 04/10/2019 1100 E DT Height 181.6 cm (5' 11.5) 03/25/2019 0601 EDT Body Mass Index 16.8 03/25/2019 0601 EDT documented in this encounter Discharge Diagnoses Diagnosis A41.01 Sepsis due to Methicillin susceptible Staphylococcus aureus-A41.01[ICD-10-CM] R57.8 Other shock-R57.8[ICD-10-CM] R65.21 Severe sepsis with septic shock-R65.21[ICD-10-CM] E43 Unspecified severe protein-calorie malnutrition-E43[ICD-10-CM] J15.211 Pneumonia due to methicillin suscep staph-J15.211[ICD-10-CM] K25.4 Chronic or unspecified gastric ulcer with hemorrhage-K25.4[ICD-10-CM] K26.4 Chronic or unspecified duodenal ulcer with hemorrhage-K26.4[ICD-10-CM] J80 Acute respiratory distress syndrome-J80[ICD-10-CM] N17.9 Acute kidney failure, unspecified-N17.9[ICD-10-CM] E87.2 ACIDOSIS[ICD-10-CM] D62 Acute posthemorrhagic anemia-D62[ICD-10-CM] J44.0 Chr obstructive pulmon disease with (acute) lower resp infct-J44.0[ICD-10-CM] E87.0 HYPEROSMOLALITY AND HYPERNATREMIA[ICD-10-CM] F05 Delirium due to known physiological condition-F05[ICD-10-CM] Z68.1 Body mass index (BMI) 19.9 or less, adult-Z68.1[ICD-10-CM] D69.6 Thrombocytopenia, unspecified-D69.6[ICD-10-CM] L89.156 Pressure-induced deep tissue damage of sacral region-L89.156[ICD-10-CM] E83.51 HYPOCALCEMIA E83.51[ICD-10-CM] E83.39 OTHER DISORDERS OF PHOSPHORUS METABOLISM[ICD-10-CM] E87.70 Fluid overload, unspecified-E87.70[ICD-10-CM] F17.210 Nicotine dependence, cigarettes, uncomplicated-F17.210[ICD-10-CM] I48.0 Atrial fibrillation-I48.0[ICD-10-CM] I48.91 Unspecified atrial fibrillation-I48.91[ICD-10-CM] R13.10 Dysphagia, unspecified-R13.10[ICD-10-CM] R73.9 Hyperglycemia, unspecified-R73.9[ICD-10-CM] Z82.3 Family history of stroke-Z82.3[ICD-10-CM] documented in this encounter Discharge Summaries * Shelly Guzman MD - 04/23/2019 1050 EDT Medicine Discharge Summary Primary Care Provider: Doctor Unknown Attending Physician: Shelly Guzman MD Admit Date: 03/17/2019 Discharge Date: 04/23/2019 Disposition: Acute Rehab Reason for Admission: Pneumonia, AF/RVR Principal/Final Diagnosis: Acute respiratory failure with hypoxia ([facility]-CMS) due to pneumonia complicated by MSSA bacteremia, ARDS, UGI bleed due to PUD and SIRISHA. Additional Problems Managed in the Hospital Active Hospital Problems Diagnosis Date Noted ??? Atrial fibrillation with RVR ([facility]) 03/17/2019 ??? Acute respiratory failure with hypoxia ([facility]) 03/17/2019 Resolved Hospital Problems No resolved problems to display. Principal Procedure: Upper Endoscopy 03/21/19 Diagnosis esophagus: normal Stomach: multiple punctate clean based ulcers 2-5cm in diameter. Cold forceps biopsies taken in antrum and body of stomach to rule out H pylori Duodenum: diffuse clean based ulceration. There appears to be visible vessel that was treating with endo clip. Secondary Procedures: none Hospital Course: Shirlene Bryan is a 64 y.o male with no known past medical history (no PCP and did not see a doctor regularly) who presented to [facility] via [facility] with rapid atrial fibrillation (03/16/19). ?? Mr. Bryan presented to [facility] on 03/15 after having 2 and half weeks of fever, loss of appetite, weakness, fatigue, body aches, diarrhea, and vomiting with decreased food and fluid intake. ?? On initially assessment at [facility] Mr. Bryan was hemodynamically stable. Labs significant for Na: 134 K: 3.9 Cl: 95 CO2: 17 Ca: 9 Cr: 5.75 BUN: 178 Lactic acid: 2.7 WBC: 18.01. Chest CT showed multiple areas of consolidation in both lungs. He was admitted for pneumonia and renal failure and treatedwith azithromycin, ceftriaxone and fluid resuscitation (6L IVF). The patient went into rapid A. fibthe next morning (03/17/19) and was intubated due to hemodynamic instability. He was put on a diltiazem drip and transferred to [facility] MICU for management of pneumonia complicated by septic shock, ARDS, metabolic acidosis, AF w/ RVR, SIRISHA, and volume overload. In the [facility] MICU, the patient was intubated, sedated, and required pressors. On 03/20/19, he had anacute decompensation where he became tachypneic and desatted to 80s and reverted back to a fib. There was a concern for PE and he was started on heparin but had bright red blood per rectum and out ofhis OG tube. Hgb dropped to 5 and was transfused 3 units of blood and 1 unit platelets. Subsequent EGD revealed numerous peptic ulcers. He was treated with Protonix and improved. On 03/21/19 [facility] BCx speciated to MSSA. Patient was transitioned from pip-aubrey to nafcillin per Infectious Disease consultation and completed a total of 14- days of antibiotics. He had been started on Metoprolol for his AF and converted back to NSR which he maintained thereafter. Given the circumstance of his AF, his GI bleeding and low CHADS score, he was not started on therapeutic anticoagulation. Patient had a trachestomy placed on 03/28 given difficulty with weaning/sedation and prolonged intubation. He was eventually able to wean from the vent, his trache was de-cannulated on 04/19/19 and hewas weaned to room air. Due to his profound deconditioning he was transferred to Acute Rehab on 04/20. Condition at Discharge: Improved Clinical Issues Needing Follow-up: tracheostomy site care, PT, OT, DIE ATTACHING MACHINE TENDER Diffuse rash: On the day of discharge, the patient developed a diffuse, pruritic macular rash. The newest medications that had been introduced were metoprolol on 04/16, and a transition from ProtonixIV to p.o. on 04/20. It is highly possible that 1 of these medications caused a rash, and so it would be recommended to try alternate agents if it does not improve to determine the offending agent. No Known Allergies There is no immunization history on file for this patient. Results Pending at Discharge Test results still pending from this admission None Discharge Handoff Communication Transferred to acute rehab. Discharge Summary Completed By: VICK GIBSON MD, PGY-1, Pager [phone] 04/23/2019 12:10 ATTENDING ATTESTATION: Date of service: 04/23/2019 I interviewed and examined the patient; reviewed interval labs, events, and notes. I discussed the case with the medicine house staff team and agree with and addended (in blue) the findings and plan of care as documented in resident discharge summary above. Patient is medically stable for dischargetoday. I personally spent 30 minutes reviewing the chart, evaluating and examining the patient, and counseling and preparing the patient for discharge. Shelly Guzman MD Internal Medicine Hospitalist Attending documented in this encounter Medications at Time [...] directed daily. 30 Cap 05/11/2019 Wool Alcoh-Min Uev-Srovu-Yewtb (EUCERIN) cream Apply to dry areas twice daily as needed 57 g 05/10/2019 albuterol (ACCUNEB) 2.5 mg /3 mL (0.083 %) nebulizer solution Take 3 mL by nebulization every 4 hours as needed for Wheezing. 30 Each 04/23/2019 9 cholecalciferol, Vitamin D3, 1,000 unit tablet Take 1 Tab by mouth daily. 30 Tab 04/23/2019 9 collagenase (SANTYL) ointment Apply to sacral wound per wound care instructions 30 Tube 04/23/2019 9 ferrous sulfate 324 mg (65 mg iron) tablet,delayed release (DR/EC) Take 1 Tab by mouth daily with breakfast. 30 Tab 04/23/2019 9 guaiFENesin (MUCINEX) 600 mg SR tablet Take 1 Tab by mouth 2 times daily. 30 Each 04/23/2019 9 ipratropium-albu terol (DUONEB) 0.5 mg-3 mg(2.5 mg base)/3 mL nebulizer solution Take 3 mL by nebulization 2 times daily. 1 Each 04/23/2019 9 melatonin 5 mg tablet Take 1 Tab by mouth at bedtime. 30 Tab 05/10/2019 0 melatonin 5 mg tablet Take 1 Tab by mouth at bedtime. 30 Tab 04/23/2019 9 metoprolol (LOPRESSOR) 25 mg tablet Take 0.5 Tabs by mouth 2 times daily. 30 Tab 04/23/2019 9 mometasone-formo terol (DULERA) 100-5 mcg/actuation Inhale 2 Puffs as directed 2 times daily for 30 days. 2 Inhaler 05/10/2019 9 nicotine (NICODERM CQ) 7 mg/[address] 1 Patch onto the skin daily. 1 Each 04/24/2019 9 pantoprazole (PROTONIX) 40 mg tablet Take 1 Tab by mouth daily. 30 Tab 04/23/2019 9 senna (SENOKOT) 8.6 mg tablet Take 2 Tabs by mouth at bedtime. 60 Tab 05/10/2019 0 senna (SENOKOT) 8.6 mg tablet Take 2 Tabs by mouth at bedtime. 30 Tab 04/23/2019 9 triamcinolone (KENALOG) 0.1 % ointment Use sparingly for rash/itch. Do not use on open skin wounds. 30 g 05/10/2019 0 documented as of this encounter Ordered Prescriptions Prescription Sig Dispense Quantity Refills Last Filled Start Date End Date Multivitamins with Minerals tablet tablet Take 1 Tab by mouth daily. 30 Tab 04/24/2019 collagenase (SANTYL) ointment Apply to sacral wound per wound care instructions 30 Tube 04/23/2019 9 nicotine (NICODERM CQ) 7 mg/[address] 1 Patch onto the skin daily. 1 Each 04/24/2019 9 senna (SENOKOT) 8.6 mg tablet Take 2 Tabs by mouth at bedtime. 30 Tab 04/23/2019 9 melatonin 5 mg tablet Take 1 Tab by mouth at bedtime. 30 Tab 04/23/2019 9 albuterol (ACCUNEB) 2.5 mg /3 mL (0.083 %) nebulizer solution Take 3 mL by nebulization every 4 hours as needed for Wheezing. 30 Each 04/23/2019 9 cholecalciferol, Vitamin D3, 1,000 unit tablet Take 1 Tab by mouth daily. 30 Tab 04/23/2019 9 ipratropium-albut romain (DUONEB) 0.5 mg-3 mg(2.5 mg base)/3 mL nebulizer solution Take 3 mL by nebulization 2 times daily. 1 Each 04/23/2019 9 guaiFENesin (MUCINEX) 600 mg SR tablet Take 1 Tab by mouth 2 times daily. 30 Each 04/23/2019 9 ferrous sulfate 324 mg (65 mg iron) tablet,delayed release (DR/EC) Take 1 Tab by mouth daily with breakfast. 30 Tab 04/23/2019 9 metoprolol (LOPRESSOR) 25 mg tablet Take 0.5 Tabs by mouth 2 times daily. 30 Tab 04/23/2019 9 pantoprazole (PROTONIX) 40 mg tablet Take 1 Tab by mouth daily. 30 Tab 04/23/2019 9 zinc sulfate (ZINCATE) 220 (50) mg capsule 1 Cap by per g tube route daily. 30 Cap 04/23/2019 9 documented in this encounter Discharge Disposition Disposition Code Departure Means Destination Rehab Facility documented in this encounter Progress Notes * Shelly Simon OT - 04/23/2019 1311 EDT [facility] Acute Therapies [facility] - Occupational Therapy Discontinue/Discharge Note Date of Service: 04/24/2019 Precautions: Activity as tolerated Subjective/Objective SUBJECTIVE: N/A OBJECTIVE: Interventions completed today: Intervention included: No interventions today Patient has been seen in occupational therapy from 04/04/19 to 04/23/19. The patient has been seen by an Occupational therapist Please refer to the occupational therapy notes for specifics on the patient's functional status andtreatment sessions. Relevant Objective Findings: Body Functions and Performance Skills: Mental Functions: Specific mental functions: Patient able to demonstrate the ability to follow multi step instructions during assessment. Attention appropriate. Global mental functions: A/Ox 3 ?? Sensory Functions: Touch: C2-T1 intact Vision: denies any changes in vision as a result of hospitalization, functionally no concerns noted Hearing: patient able to understand conversational tones ?? Neuro musculoskeletal and Movement Related Functions: ?? Range of motion:RUE AROM , LUE: shoulder flexion ~120(reports baseline limitation), otherwise AROM WNL. LE AROM WNL Strength: UE:>3+/5 , LE >3/5 functionally noted ?? Skin and Related Structure Functions: Skin functions: per patient story: Foam Border Prophylactic Dressing (MICU ONLY) Andrew less than or equal to 13 03/17/19 37 days Pressure Injury 03/19/19 Coccyx deep tissue injury noted to coccyx 35 days Partial Thickness Wound 03/21/19 Skin Tear skin tear 34 days ?? Areas of Occupation and Performance Skills: Basic Activities of Daily Living: Feeding: modified I Toilet tx: min contact assist of two for bed to commode transfer . Patient resting in bed at end ofOT session call grayson within reach toileting: max assist with hygiene, with 1 assist to maintain balance ??Functional mobility: Supine to sit with min contact assist, once seated edge of bed patient patient able to maintain in order participate in self care and therex tasks. Sit to supine near end of session with supervision, patient able roll side to side with supervision, with bed flat patient able to use LE's to boost self up in bed. At end of session head of bed >30 ?? with call grayson within reach. UE bathing: supervision, assist to wash back UE dressing: min contact assist for leti management and line management LE bathing: not performed, states aixa care completed earlier. LE dressing: moderate assist with pants Patient demonstrating proper rest breaks throughout session. ~ 3-4 taken of ~ 1 minute each. ?? Social Participation: Patient was cooperative with sessions Assessment/Plan ASSESSMENT: Lee was appropriate for occupational therapy due to functional deficits resulting from septic shock and acute hypoxic respiratory failure, initially requiring intubatio. He presented with impairments of decreased range of motion, strength, activity tolerance and balance. Patient has made steady gains over the course of occupational therapy, initially slow related to tolerance, but over the course of therapy, consistent participation in his own care with nursing, has demonstrated nice gains. At time of discharge patient demonstrating edge of bed increased tolerance, participation in self care and therex tasks edge of bed. He does remain well below his baseline, and willbenefit from an intense rehab program. Anticipate steady gains. Patient has met goals as noted below, otherwise goals have been discontinued in this setting. GOALS: Short Term Goals: - ? - Creche Attendant Goals: 2-3 weeks ? Patient will maintain UE ROM in prep for ADL's-met ?? Patient will complete 15 minute unsupported sitting UB functional task in prep for ADL with supervision-met ?? Patient will demonstrate proper use of energy conservation techniques with functional tasks min cues-met ?? Patient will demonstrate I with UB exercise program in prep for ADL-discontinue ?? Patient will complete UE bathing with modified I-discontinue ?? Patient will complete LE bathing with min contact assist-discontinue ?? Patient will complete commode transfer with min contact assist-discontinue ? Patient/family will verbalize an understanding of occupational therapy recommendations-met ?? PLAN: Discontinue occupational therapy at The acute care. Recommended Discharge Destination: Acute rehabilitation Recommended Discharge Services: Occupational therapy at rehabilitation facility Recommended Discharge Equipment: To be determined by next care provider Pager: [phone] SHELLY SIMON OT, 04/24/2019, 7:15 * Davida Randhawa MS CCC-DIE ATTACHING MACHINE TENDER - 04/23/2019 1151 EDT Speech-Language Pathology Swallowing Consults DIE ATTACHING MACHINE TENDER Diagnosis: Aphonia, Loss of Voice: and Dysphagia, oropharyngeal phase: Medical Diagnosis: [id number] J18.9 Pneumonia, unspecified organism-J18.9[ICD-10-CM] Date of Service: 04/23/2019; 11:51 Date of Onset: 03/17/2019 Date of Referral: 04/09/19 Start Time: 1035 Total Therapy minutes: 20 minutes SUBJECTIVE: Much better, I had eggs this morning pt commenting on voice and swallowing. I'm going to [facility] pt noted where he was going to be discharged today OBJECTIVE: Prior Medical History: Leticia Galdamez MD, Pulmonary & Critical Care Medicine 03/17/2019 Shirlene Bryan is a 64 y.o male with no past medical history??and current smoker??who presents from [facility] with rapid atrial fibrillation. ?? Per note from [facility], he??presented??on 03/15??after having 2 and half weeks of symptoms that started with fever and loss of appetite. The fever resolved??after 1 week.??He also reported weakness, fatigue, body aches, diarrhea, vomiting??during that period. He had decreased food and fluid intake. The patient??has not been seen by a doctor for about 10 years.? On presentation to [facility] he was hemodynamically stable. Labs??significant for Na: 134 ??K: 3.9 ??Cl: 95 ??CO2: 17 Ca: 9 Cr: 5.75 ??BUN: 178 ??Lactic acid: 2.7 ??WBC: 18.01.Chest CT showed multiple areas of consolidation in both lungs.?? He was admitted for pneumonia and renal failure??and??treated with azithromycin and ceftriaxone. Hewas given a total of 6L of fluid. The patient went into rapid A. fib this morning and was intubateddue to hemodynamic instability. He was put on a diltiazem drip and transferred??to the MICU.? Currently intubated and sedated Pt's trache previously decannulated 04/20 per Facundo Mcguire, RT Patient seen for Q4 checks. PT has slightly sunken in anatomy which makes it difficult for tight seal for healing trach site. Weaned completely off oxygen to room air. No acute issues. Current Status: ?? Cognitive Status: Patient was alert and cooperative throughout the evaluation. Respiratory Status: Pt demonstrated tolerance of room air. Clinical Swallow Consult Positioning: Sitting upright in bed per patient tolerance Oral Peripheral Exam: Face: Symmetric Lips: Symmetric Tongue: WFL Velum: Symmetrical soft palate elevation during phonation attempts Dentition: Adequate dentition Jaw Excursion: Adequate Consistencies Tested: 04/23/19 was assessed with pudding mixed with sofía cracker, thin liquids with a straw, and saltine crackers. Pt self fed all consistencies. Oral Phase Findings: Oral phase of swallowing is within functional limits. Patient presents with adequate oral containment, slow, but functional chewing and appropriate bolus transport for all consistencies tested. Pharyngeal Phase: Pharyngeal phase of pt swallow within functional limits on current diet. No s/s of penetration/aspiration were noted on current diet. Audible air escape from stoma noted with voicing and solids. Esophageal Phase: has no overt issues. Goals Addressed this Visit: Patient will tolerate oral intake without signs or symptoms of aspiration 04/23- Pt did not demonstrate any overt s/s of penetration/aspiration during consultation today. Patient/Family Education/Training: Topic: Swallowing Patient/Family education and training was completed today including the results of today's consultation/recommendations, anatomy and physiology of the swallowing mechanism, altered swallowing physiology with stoma. Learner: patient Method of Education: Verbal Barriers to Learning/Education: none Patient: was able to verbalize understanding of information and needs further instruction and education Family: not present. ASSESSMENT/CLINICAL IMPRESSIONS: is a 64 y.o. male admitted with pneumonia and s/p tracheostomy. A consult was completed today by Speech Language Pathology to assess tolerance of current diet after recent decannulation (04/20/19) continues to present with normal oral motor functioning and oral phase of swallowing. He presents improved pharyngeal stage dysphagia with no overt s/s laryngeal penetration/aspiration and has a much stronger cough. No intermittent throat clearing noted at this visit, no visible secretions from stoma. Pt demonstrates audible air escape through stoma (covered with dressing) while chewing and swallowing. Etiology of dysphagia is patient's overall deconditioned state and weakness. remains at mild to moderate risk of aspiration at this time. Prognosis for ongoing improvement in swallow function is judged to be good. Anticipate that as patient gets stronger overall through acute rehab, his swallowing function and physiology will continue to improve. Functional Communication Measures ([place] [employer], 2002). The Functional Communication Measures (FCM???s) are a series of 7 point rating scales, ranging fromleast functional (Level 1) to most functional (Level 7). They have been developed by SUE to describe different aspects of patient???s functional communication and swallowing abilities over the course of DIE ATTACHING MACHINE TENDER intervention. Swallowing Level 4: Swallowing is safe, but usually requires moderate cues to use compensatory strategies, and/or the individual has moderate diet restrictions and/or still requires tube feeding and/or oral supplements. GOALS: Patient will tolerate downsized trach and cap to vocally communicate wants and needs- N/A Pt decannulated 04/20, The patient will advance and tolerate Dysphagia 4/thin as evidenced by adequate oral clearance and absence of overt signs and symptoms of penetration/aspiration over the course of a snack/meal. - [facility] 04/23 PLAN: Patient will continue to benefit for further DIE ATTACHING MACHINE TENDER intervention in the acute rehab setting to addressdysphagia management and intervention needs. As a result of the dysphagia consultation, the following recommendations are provided to maximize swallow function and to minimize risk of dysphagia and its ramifications: DIET: The patient may continue with current diet texture of Dysphagia 3 with thin liquids. Continue with Mighty shakes and magic cup for supplements. Continue higher calorie, nutrient dense foods given high nutrition needs. FEEDING/EATING STRATEGIES: Patient may eat independently. Patient should eat in a low stimulation environment to increase attention to meal time. When eating, patient should be upright at 90 degrees as tolerated. Patient should take small, single sips of thin liquid. Patient may use a straw when drinking liquids. Patient should alternate liquids and solids during meal time. Patient should cough/throat clear every 3-4 bites if there is an increase in upper airway congestion Patient should wait for respiration to return to baseline prior to continuing to eat. Please verbally cue patient to eat at a slower pace. Decrease oral intake if any intolerance occurs. Discharge Plan: Pt will require inpatient acute rehabilitation stay. Kell Worley. 04/23/2019 [facility] Machine Candle Molder Clinician Davida Randhawa MS, [facility]DIE ATTACHING MACHINE TENDER Speech Language Pathologist Pager #[phone] (Tuesday - Tuesday [phone]) Pager # [phone] ([facility] DIE ATTACHING MACHINE TENDER Department) * Madelyn Knowles, PT - 04/23/2019 1056 EDT The Rehabilitation Therapy Acute Therapies [facility] Physical Therapy Discontinue/Discharge Note Date of Service: 04/23/2019 Precautions: Activity as tolerated SUBJECTIVE: NE patient discharged from hospital OBJECTIVE: Intervention Completed Today: No treatment rendered today due to: patient has been/will be discharged from hospital. Team Communication: NE Patient has been seen in physical therapy since 04/03/19 for Therapeutic exercises, Therapeutic activities and Gait training. In this reporting period 04/03/19 to 04/23/19 the patient has been seen by a physical therapist. Frequency: daily for 9 visits within 20 days. Intensity: 30 minutes per session. Duration:During this hospitalization. Please refer to the physical therapy notes for specifics on the patient's functional status and treatment sessions. Relevant objective findings: CARDIOPULMONARY: Per 04/20/19 note, SpO2 98 % on room air. Ambulated on 3 l nc with SpO2 85-90 %. Recovered to 100 % after several minutes supine on 3 l nc. Returned to room air RANGE OF MOTION AND JOINT INTEGRITY: Active Range of Motion: Within normal limits MUSCLE PERFORMANCE: Strength: Formal resistive manual muscle testing not performed due to focus on functional activities at this time. Based on AROM and functional movement strength is as follows: ?? Upper Quarter: Left Upper Extremity: > to 3/5 as demonstrated functionally Right Upper Extremity: > to 3/5 as demonstrated functionally Cervical Spine: > to 3/5 as demonstrated functionally ?? Lower Quarter: Left Lower Extremity: > to 3/5 as demonstrated functionally Right Lower Extremity: > to 3/5 as demonstrated functionally Lumbar Spine: N/E BALANCE, MOBILITY, AND GAIT: Per 04/20/19 note, Therapeutic Activity: Bed Mobility: pt performed supine -> sit??with??supervision??assist and verbal cues for technique,??left??side of bed without??bed features. Patient performed sit??->??supine??with??supervision??assist and verbal cues for technique,??left??side of bed without??bed features. ?? Transfers: pt performed sit -> stand transfer from??bed and wheelchair, with??min ??assist and verbal cues for hand placement/ safety??with walker ?? Pt performed stand to sit transfer to??wheelchair and chair??with min??to mod??assist??to slow descent??and verbal cues for hand placement to control descent ?? Patient ambulated??with rolling walker, ~10 X 2??feet, min??assist with verbal cues for pacing and breathing. ??Patient stopped every few steps for a brief standing rest break. ?Encouraged pursed lip breathing throughout all activity ASSESSMENT: Physical therapy services in this setting have been discontinued secondary to: Patient has been or will be discharged from the hospital Physical Therapy Diagnosis: balance deficits, gait impairments, decreased tolerance to activity, impaired functional mobility, impaired gas exchange Physical Therapy Prognosis: Patient has progressed and tolerated treatment well throughout admission. Patient is highly motivated to progress, but current tolerance to activity is limited due to generalized deconditioning and impaired gas exchange. Anticipate patient will make steady progress with ongoing inpatient rehab. Based on performance with therapy today, this patient is expected to be able to tolerate 3 hours of multi-disciplinary acute rehab therapy 5 days a week. All unmet goals deferred to AR. Short-Term Goals: ?? Bed mobility: patient will be able to perform with min Ax1 demonstrating appropriate sequencing/motor planning. -MET ?? Transfers: patient will be able to perform bed to chair transfers with mod Ax1 with use of appropriate assistive device. -MET ?? Ambulation: patient will be able to ambulate 50 feet on level surfaces with mod Ax1 with use of appropriate assistive device. -distance not met ?? The patient and/or caregiver will be able to recall recommendations. ?? All of the above mobility goals will be performed within vital sign parameters and oxygen saturation > 92%. Long-Term Goals: ?? Bed mobility: patient will be able to perform with supervision demonstrating appropriate sequencing/motor planning. ?? Transfers: patient will be able to perform bed to chair transfers with supervision with use of appropriate assistive device. ?? Ambulation: patient will be able to ambulate 100 feet on level surfaces with supervision with use of appropriate assistive device. ?? The patient and/or caregiver will be able to recall recommendations. ?? All of the above mobility goals will be performed within vital sign parameters and oxygen saturation > 92%. ?? The patient will be able to perform stairs with supervision with home set up for rails. ?? PLAN: D/C Physical Therapy Recommended Discharge Destination: Acute rehabilitation Recommended Discharge Services: Physical therapy at rehabilitation facility Recommended Equipment Needs: To be determined by next care provider Other recommendations: No other consults recommended at this time Pager: [phone] Madelyn Knowles, PT 04/23/2019 10:56 * Jenelle Davison RN - 04/23/2019 7713 EDT Inpatient Acute Rehabilitation Unit on the [facility] Eligible: Patient is determined to be Eligible for an Acute Inpatient Rehabilitation level of care based on his/her payer criteria Patient has accepted bed offer at the Acute Inpatient Rehabilitation Unit at The , located on the [facility]. Refer to IP Rehab Pre-Admission Assessment Note in Inpatient Rehabilitation Medical record for further details. Rehab Admission Date: 04/23/19 Transportation: [facility] Rehab Admission Time: 1300 Rehab Floor/Number for Report: Rehab 1 ([id number]) * Viktoria Farr RN - 04/23/2019 1024 EDT Images from the original note were not included. 04/23 ?? 03/19: While on unit asked by bedside nurse to assess purple area on coccyx. ?? Pt arrived on Tuesday morning from [facility] with a pink blanchable area on his coccyx. Thismorning he has a deep tissue injury that must likely started at the OSH or during the ride here. Deep tissue injury forming on his coccyx measuring 2cm x 2.5cm, purple tissue with blanchable erythema on the surrounding skin. Mepilex border dressing in place. Suggest to place pt on a [facility] bed.? 03/29 -?coccyx deep tissue injury is worse then last assessment which is concerning. Area now a dark purple, almost black in color measuring 6cm x 3cm. No drainage noted on mepilex border dressing. Suggested to nursing that they offload pressure from coccyx at all times to allow area to continue evolving without worsening.? 10 -?deep tissue injury continue to evolve. Center is now an unstageable pressure injury measuring 2cm x .8cm, some nonblanchable purple tissue remains on the left side. Mepilex border dressing and offload still suggested treatment plan. ?? 04/13 -??pressure injury on coccyx is unstageable. Base filled with yellow slough in and area measuring 4.5cm x 1.3cm, surrounding area is blanchable erythema. Small amount of purulent drainage on mepilex border dressing. Suggested to bedside nurse to order Santyl to be applied to base daily. ?? 04/17 -??unstageable ulcer over coccyx is slightly improved. Yellow slough starting to debride withthe use of the Santyl. Skin above the ulcer appears more fragile, atmospheric scientist in color, concern that this area is beginning to breakdown. Pt currently on a [facility] bed. Please offload pressure from coccyx at all times. ?? 04/20 - surrounding skin that was fragile above ulcer is now also open and covered with yellow slough. I lost my measurements so will redo next week. Spoke with bedside nurse regarding using the 2x2 guaze to apply the Sanytl to the wound. This keeps it contained to the wound bed. Current assessment: coccyx ulcer continues to be unstageable with yellow slough in base measuring 5cm x 2.5cm, surrounding area blanchable erythema. Resident in room assessing large amount of rash onmost of trunk, extending onto surrounding extremities. Rash is red and elevated. ?? Recommend Dime size amount of Santyl to 2x2 dressing, place over yellow slough on coccyx wound. Cover with??Mepilex??sacral??border. Change every 5-7 days or prn for saturation. Lift daily to assess area and place back down.? Offload pressure from coccyx at all times Turn and reposition pt q2hrs Float heels off from mattress?? Viktoria Farr, Pressure Ulcer Prevention Nurse * Jenelle Davison RN - 04/23/2019 0939 EDT Inpatient Acute Rehabilitation Unit Pre-Admission Screening Name: Shirlene Bryan : 1955 Age: 64 y.o. Sex: male Payer: Medicare Rehab Admission Date: 04/23/2019 Rehab Unit: Rehab 1 From: B622/02 Arriving via [facility] Time: 1300 Height: 181.6 cm (71.5) Weight : 55.4 kg (122 lb 2.2 oz) Body mass index is 16.8 kg/m??. Admit W/C: Standard, Regular foot rests Bed to wheelchair transfers for transfer: Min-mod assist of 1 w/ verbal cues for hand placement/ safety??with walker Immediate Rehab Needs: Precautions: High Fall risk Safety/Behavior: A&Ox3 Lines/Tubes: Trach d/c'd 04/19 NG tube d/c'd 04/20 Special Bed or Equipment Needs: [facility] bed Speech and Language Pathology Primary Rehab Diagnosis: Debility following Acute Respiratory failure Hx of Present Illness & Complications: Admitted with sepsis due to left lower PNA and MSSA bacteremia. Hospital course complicated by??acute hypoxic respiratory failure with ARDS secondary to pneumonia,??volume overload, and COPD. Tracheostomy d/c'd 04/19 and patient has been weaned off oxygen.Stable on RA. Tube feedings d/c'd and patient is eating a modified diet. Acute Admission Date: 03/17/2019 Expected length of stay: 10-14 days Ongoing Medical Concerns: Patient Active Problem List Diagnosis ??? Atrial fibrillation with RVR (HCC-CMS) ??? Acute respiratory failure with hypoxia ([facility]-CMS) ??? Septic shock (HCC-CMS) ??? ARDS (adult respiratory distress syndrome) (HCC-CMS) ??? SIRISHA (acute kidney injury) (HCC-CMS) ??? Anemia ??? Thrombocytopenia (HCC-CMS) ??? Bacteremia ??? Fever ??? Encephalopathy ??? Upper gastrointestinal bleed Past Medical History: Past Medical History: Diagnosis Date ??? ARDS (adult respiratory distress syndrome) (HCC-CMS) Pre-Hospital Living Setting and Support System: Lives in [place] independently in a multi-level house. Bathroom is upstairs and bedroom down stairs with a Walk in shower. Reports having a tub/shower combo with grab bars in place. Services prior to admission: none Prior Level of Function: Ambulated: independently Completed Self-care: independently Current Functional Status: Care Management: Pain Management: ongoing assessment. Bladder: continent. Bowel: continent, last BM04/20. Wound Care: Occlusive dressing over trach site. Left buttock wound, unstageable, Dime size amount of Santyl to 2x2 dressing, place over yellow slough on coccyx wound. Cover with??Mepilex??sacral??border. Change every 5-7 days or prn for saturation. Lift daily to assess area and place back down. Medication Management: teaching as indicated. Safety: high fall risk and Functional mobility: carryover of therapy techniques. Transfers: Min-mod assist of 1 w/ verbal cues for hand placement/ safety??with walker Locomotion: From: ambulatory level with minimal assist and with device Self-care: Min- Mod assist IADLs: Deficits below baseline with:, meal preparation, home management and community management Swallowing: Intact Communication: Intact Cognition: Intact Rehab Eligibility Assessment: Conditions that caused the need for rehabilitation: Patient has had a significant decline in function as the result of Debility following Acute Respiratory failure . Need for Close Medical Supervision: An acute inpatient rehab setting is medically necessary to monitor and manage the Ongoing Medical Concerns listed above and to develop and oversee the plan of carefor Current Functional Deficits also listed above. Active Multi-Disciplinary problems: ?? Daily Care Plan Goals ?? High Fall Risk ?? SKIN INTEGRITY ?? Pressure Ulcer Prevention ?? Sensory ?? High Fall Risk DVT proph: Lovenox, Respiratory monitoring, wound care, nutrition Risk for Clinical Complications: Shirlene is at Moderate risk for medical complications from these medical issues, impacting ability to participate in the rehabilitation program. Rehab Potential: Shirlene has realistic goals and good rehab potential. Patient's condition is sufficiently stable at the time of admission to allow this patient to actively participate in and toleratean acute intensive rehabilitation program. Appropriate Therapy Needs: Rehab Nursing , Occupational Therapy , Physical Therapy , Speech and Language Pathology and Medical Psychology including patient/caregiver education and DME recommendationsand training. Expected Frequency and Duration of Treatment: Anticipate patient will be able to tolerate an acute rehab level intensity of care and for a total of 3 hours per day, 5 days per week, and be expected to make measurable improvement that will be of practical value to improve Shirelne Bryan's functional capacity or adaptation to impairments. Expected level of improvement: Expect Shirlene to complete functional mobility independently and complete self-care independently at discharge. Patient/Family Rehabilitation Goals: Patient/family education regarding Acute Rehab program provided. Patient/family report willingness and motivation to participate. Anticipated Discharge: Location: Home Support available at discharge: Anticipated Post-Discharge Treatments: Home health with Nursing, OT, PT and home health aid Physician Agreement: Co-signature of this note indicates that I have reviewed this pre-admission screening document and concur with the findings. I believe Shirlene Bryan meets criteria, is sufficiently medically stable to allow participation in the program and has the medical needs and functional rehabilitation goals that require the complexity and intensity of inpatient rehabilitation. This patient requires an intensive level of therapy, close medical supervision and an interdisciplinary team approach provided through an individualized plan of care; therefore, an admission to the acute inpatient rehab unit is medically necessary. I approve admitting this patient for an intensive, inpatient rehabilitation hospital program. Cosigned by Eladio Otero MD at 04/23/2019 13:36 EDT * Quynh Singer, RT - 04/22/2019 0833 EDT Images from the original note were not included. Respiratory Consult/Progress Note Indications for Respiratory therapy: Acute resp failure Data Vitals: Heart Rate: 73 BPM, Resp: 20, SpO2: 93 % FIO2/O2 Device: O2 Flow Rate (L/min): 0 l/min, , O2 Device: None, FIO2 %: 21 % RT Orders: BID Duoneb Protocol Scoring: Bronchodilator/Inhalation Therapy Frequency Bronchodialator - Clinical Indications: LIP order Breath Sounds: Any abnormal BS decreased Response: No change / no treatment Pulse: <100 Resp Rate: 18-25 SOB: With exertion Total Score: 3 Comment:: BID Airway Clearance Therapy Frequency Airway Clearance - Clinical Indications: Productive cough Breath Sounds: Clear / diminished Sputum: Small (tsp) / None Consistency: None Cough Effort: Strong, productive Color: None Total Score: 1 Comment: not indicated Hyperinflation Therapy Frequency Hyperinflation - Clinical Indications: No clinical indications Breath Sounds: Diminished / crackles Surgery: No X-Ray / Atelectasis: No O2 Requirements: O2 at baseline Mobility Status: Mobile / at baseline Total: 2 Comment: not indicated Action/Events Respiratory events; Pt recently decannulated of trach. Pt placed on BID Duonebs at this point in time. BS are clear; diminshed. Pt coughing a clearing own secretions. May consider weaning nebs in future as per protocol. RT Juan Ramon 04/22/19 * Igor Maza MD - 04/22/2019 0627 EDT Medicine Daily Progress Note Chief Complaint: Rapid atrial fibrillation Principle Problem: Sepsis??secondary to??left lower lobe PNA and MSSA bacteremia c/b ARDS 24hr Events: - None Subjective: Patient examined at bedside. Has been eating well with improving appetite. Finally is enjoying eating food again, he ate an egg salad sandwich last night. He particularly enjoyed the coffee milkshakethat the nurse made for him. His breathing is slowly improving, no productive cough. Walked with walker around jose more than prior. His strength is improving and his walking is limited by his SOB. Normal BM day before yesterday - he is not concerned and feels that this is within his normal pattern. Denies palpitations. Vital Signs: Temp: [35.6 ??C (96.1 ??F)-36.2 ??C (97.2 ??F)] (), Pulse: [75-91] (), Resp: [20-22] (), BP: (111-133)/(71-81) (), SpO2: [93 %-97 %] () On RA Physical Exam: GA: NAD, breathing comfortably Heart: RRR, no MRG Lungs: diffuse bilateral inspiratory crackle and low pitched wheezes. Trach wound patent with air and secretions. Abd: soft, NT, ND : no park LE: no edema, symmetric in size Neuro: A&O x 3, PERRL, conjugate gaze, fluent speech, no dysarthria, no facial asymmetry, moving all limbs purposefully Results, Medications, Images, Procedures, Microbiology Reviewed: BMP, Ca, Mg, Phos: Recent Labs 04/20/19 0529 04/22/19 0440 NA 136 135* K 4.3 4.4 CL 104 105 CO2 26 23 CREATININE 0.63* 0.75 CALCIUM 8.6 8.8 CALCCA 9.8 9.9 MG 1.8 1.8 PHOS 3.8 4.7* CBC: Recent Labs 04/20/19 0529 04/22/19 0440 WBC 11.30* 10.01 HGB 7.8* 8.3* HCT 24.9* 26.3* MCV 90 89 PLT 278 293 Assessment and Plan: 64 y.o.male??with a history of cigarette smoking, not connected with medical care??transferred fromthe MICU where he was treated for sepsis 2/2 PNA and MSSA bacteremia complicated by??acute hypoxic respiratory failure with ARDS??s/p trach and 14 days abx.??He also suffered from??an??acute blood loss anemia due to diffuse stomach and duodenal ulcers.??His tracheostomy has been successfully removed, tube feeds have been discontinued, and he is currently awaiting transfer to acute rehab. #Acute hypoxic respiratory failure: hospital course c/b ARDS secondary to pneumonia,??volume overload, and COPD (empysema seen on CT).??Most recent CXR on 04/18 showed no significant changes. Trach removed with dressing in place. Tolerating breathing RA. - Continue Duonebs TID - Guaifenesin for secretions - Clonazepam BID PRN for anxiety ?? #Normocytic anemia. 2/2??upper GI bleed from diffuse stomach and duodenal ulcers, s/p??EGD, multiple transfusions of PRBCs and one of platelets. Now??likely??multifactorial??2/2 to phlebotomy,??bone marrow suppression from critical illness, chronic anemia, and potential slow continued GI bleeding. ? ?Iron studies suggest mixed iron deficiency and chronic disease. Improved Hgb of 8.3 from 7.8 two days ago. - daily PO iron supplementation - Transfuse if HgB <7?? -??Monitor??CBC Q48hr - PPI PO QD ?? #Paroxysmal atrial fibrillation:??Patient without HEAVY EQUIPMENT MECHANIC diagnosis, has been paroxysmal throughout thehospitalization.??Converted to sinus rhythm with beta blockade -??Metoprolol 12.5 mg twice daily - no AC at present due to GI hemorrhage and low CHADS score ?? #Severe??protein calorie malnutrition??and Critical Care myopathy. His PO intake has started to improve significantly and he is now enjoying food again. -Continue dysphagia??3??diet + thins -mighty shakes with meals - continue multivitamin, vitamin C, zinc -??nutrition consulted, appreciate recs - DIE ATTACHING MACHINE TENDER consulted, appreciate recs ?? #Unstageable sacral pressure ulcer -Wound care following?? - Mepilex/dressing changes??per wound care - air mattress with frequent dressing changes Housekeeping: DVT ppx: enoxaparin 40mg daily Diet: tube feeds with dysphagia 3 diet Consults: DIE ATTACHING MACHINE TENDER, OT, PT, Nutrition, Physiatry Discharge Plan: Planned for Acute Rehab 04/23 Jaswinder Kelsimikepierre MS3 04/22/2019 09:21 I was present with the medical student for the history, exam, and medical decision making documented. I have edited the medical student note as appropriate. Vick Gibson MD 04/22/2019 14:29 Attending attestation: I have seen and examined the patient and agree with findings and plans as outlined in the resident's note above. Doing great. Will see if RT has a better way of occluding his stoma to promote closure. Plan is foracute rehab tomorrow. Igor Maza MD * Jatin Taylor, RT - 04/21/2019 0803 EDT Images from the original note were not included. Respiratory Consult/Progress Note Indications for Respiratory therapy: Decannulation of trach Data Vitals: Heart Rate: 80 BPM, Resp: 20, SpO2: 93 % FIO2/O2 Device: O2 Flow Rate (L/min): 0 l/min, , O2 Device: None, FIO2 %: 21 % RT Orders: TID Duoneb Protocol Scoring: Bronchodilator/Inhalation Therapy Frequency Bronchodialator - Clinical Indications: LIP order Breath Sounds: Any abnormal BS decreased Response: No change / no treatment Pulse: <100 Resp Rate: 18-25 SOB: With exertion Total Score: 3 Comment:: Maintain TID per MD order and pt request Airway Clearance Therapy Frequency Airway Clearance - Clinical Indications: Productive cough Breath Sounds: Clear / diminished Sputum: Small (tsp) / None Consistency: None Cough Effort: Strong, productive Color: None Total Score: 1 Comment: not indicated Hyperinflation Therapy Frequency Hyperinflation - Clinical Indications: No clinical indications Breath Sounds: Diminished / crackles Surgery: No X-Ray / Atelectasis: No O2 Requirements: O2 at baseline Mobility Status: Mobile / at baseline Total: 2 Comment: not indicated Action/Events Respiratory events; Pt currently on room air sating in the mid 90s. Pt reports he has successfully been coughing secretions into his mouth. BBS are clear pre and post bronchodilator treatment. No distress noted. Dressing is clean and intact. ?? Response/Results Weaning and Toleration of treatments; Consider rescheduling nebs to BID or PRN per respiratory protocol scoring. Jatin Taylor RT 04/21/19 * Ingrid Mack OTR - 04/20/2019 1511 EDT Rehabilitation Therapies [facility] Occupational Therapy Contact Note Date of Service: 04/20/2019 Attempted to work with Pt 2x today. This morning, Pt sleeping soundly, able to awaken though Pt stating he was too fatigued to participate and immediately fell back to sleep. This afternoon - Pt occupied with other providers. Unable to return again today. Will follow up on Tuesday. JACQUES Allen, 04/20/2019, 15:11 Pg [id number] * Gabby Eldridge - 04/20/2019 1452 EDT RESOURCE ASSOCIATE ASSISTANCE 04/20/19 Met with patient to follow up on Social Security Disability application. Online application was completed for SSDI. Copy of application given to patient. Patient has decided to draw on Social Security Senior Care benefits while application is pending. Heunderstands this will reduce his skilled nursing benefit as he is not yet full skilled nursing age. Patient has been provided with contact information and encouraged to call if he has any questions or needs further assistance. Gabby Eldridge #[phone] * Lucy Sánchez RN - 04/20/2019 1435 EDT Acute Inpatient Rehabilitation Rehab Referral Review Patient Review: EMR reviewed. Sepsis secondary to left lower PNA, MSSA bacteremia, complicated by acute hypoxic respiratory failure with ARDS. Referral Status and Assessment: Therapies now recommending acute rehab when medically cleared. Oxygen needs decreased with ambulation today while working with PT, 3L NC with SpO2 85-90% Trach removed 04/19 NGT removed, tolerating PO Follow-up Plan: Will continue to follow Lucy Sánchez RN 04/20/2019 14:38 * Igor Maza MD - 04/20/2019 1430 EDT Medicine Daily Progress Note ?? Chief Complaint: Rapid atrial fibrillation Principle Problem: Sepsis??secondary to??left lower lobe PNA and MSSA bacteremia c/b ARDS ?? 24hr Events: - trach pulled yesterday. Tolerating well with good O2 saturations and improved respiratory secretions. - NG tube removed this am. Feels better with it removed. ?? Vital Signs Temp: [35.8 ??C (96.4 ??F)-37.2 ??C (99 ??F)] (), Heart Rate: [76 BPM-109 BPM] (), Resp: [22-28] (), BP: (95-131)/(59-87), SpO2: [92 %-100 %] Now on RA Physical Exam: GA: NAD, breathing comfortably with tracheostomy bandage moving with breathing but still sealed Heart: RRR, no MRG Lungs: diffuse bilateral inspiratory crackle R>L heard loudest in lower lobes Abd: soft, NTND : no park LE: no edema, symmetric in size Neuro: A&O x 3, PERRL, conjugate gaze, fluent speech, no dysarthria, no facial asymmetry, moving all limbs purposefully ?? Results, Medications, Images, Procedures, Microbiology Reviewed: CBC: Recent Labs 04/18/1953004/20/19528 WBC 11.97* 11.30* HGB 7.8* 7.8* HCT 24.7* 24.9* MCV 91 90 PLT 263 278 Electrolytes: Recent Labs 10/16/19 0531 10/18/19 0529 NA 136 136 K 4.1 4.3 CL 104 104 CO2 27 26 CREATININE 0.66 0.63* CALCIUM 8.3* 8.6 CALCCA 9.6 9.8 MG 1.9 1.8 PHOS 3.8 3.8 Subjective: Mr. Bryan reports that he continues to feel slowly and steadily better. He feels very ready to leave the hospital and continue his rehab. He is wondering how soon he will be able to leave. His breathing remains a bit difficult but may be improving with relief from duonebs. He is glad to have the trach removed with improved secretions although it is more difficult for him to speak at the moment. He continues to work with PT and is making strides in how far he is able to ambulate. His appetite is OK but still limited. He ordered an egg salad sandwich with a vanilla shake for lunch. He is very happy to have the NG tube removed and to do all of his eating on his own. He thinks that his appetite will be better now and that he will eat more without the tube in place. His last BM was this morning and was of normal consistency. He is hopeful about removing his tracheostomy today. Assessment and Plan: 64 y.o.male??with a history of cigarette smoking, not connected with medical care??transferred fromthe MICU where he was treated for sepsis 2/2 PNA and MSSA bacteremia complicated by??acute hypoxic respiratory failure with ARDS??s/p trach and 14 days abx.??He also suffered from??an??acute blood loss anemia due to diffuse stomach and duodenal ulcers.??He had his trach removed yesterday and Is tolerating only breathing RA with good O2 saturation. His NG tube was removed this morning. Planning onDC to acute rehab today or tomorrow. ?? #Acute hypoxic respiratory failure: hospital course c/b ARDS secondary to pneumonia,??volume overload, and COPD (empysema seen on CT).??Most recent CXR on 04/18 showed no significant changes. Now tolerating breathing on RA -??Continue Duonebs TID - Guaifenesin for secretions - Clonazepam BID PRN for anxiety #Normocytic anemia. 2/2??upper GI bleed from diffuse stomach and duodenal ulcers, s/p??EGD, multiple transfusions of PRBCs and one of platelets. Now??likely??multifactorial??2/2 to phlebotomy,??bone marrow suppression from critical illness, chronic anemia, and potential slow continued GI bleeding. ? ?Iron studies suggest mixed iron deficiency and chronic disease. Hgb stable at 7.8 unchanged from 2days prior. - daily iron supplementation - Transfuse if HgB <7?? -??Monitor??CBC Q48hr - PPI daily ?? #Paroxysmal atrial fibrillation:??Patient without HEAVY EQUIPMENT MECHANIC diagnosis, has been paroxysmal throughout thehospitalization.??Converted to sinus rhythm with beta blockade -??Metoprolol 12.5 mg twice daily - no AC at present due to GI hemorrhage and low CHADS score ?? #Severe??protein calorie malnutrition??and Critical Care myopathy. His PO intake is slowly improving. NG tube removed this morning - mighty shakes??with meals - continue multivitamin, vitamin C, zinc -??nutrition consulted, appreciate recs - DIE ATTACHING MACHINE TENDER consulted, appreciate recs ?? #Unstageable sacral pressure ulcer -Wound care following?? - Mepilex/dressing changes??per wound care - air mattress with frequent dressing changes ?? Housekeeping: DVT ppx: enoxaparin 40mg daily Diet: tube feeds with dysphagia 3 diet Consults: DIE ATTACHING MACHINE TENDER, OT, PT, Nutrition, Physiatry Discharge Plan: PT recommending Acute Rehab ?? Jaswinder Newman MS3 14:17 I was present with the medical student for the history, exam, and medical decision making documented. I have edited the medical student note as appropriate. Jonatan Martinez MD 04/20/2019 15:48 Attending attestation: I have seen and examined the patient and agree with findings and plans as outlined in the resident's note above. Doing well. Trache and JOSE are out and he is off O2. PO intake is improved and he is genuinely motivated to focus on rehab/strengthening. Hope to get him to acute rehab in coming days. Igor Maza MD * Viktoria Farr RN - 04/20/2019 1208 EDT 04/20 ?? 03/19: While on unit asked by bedside nurse to assess purple area on coccyx. ?? Pt arrived on Tuesday morning from [facility] with a pink blanchable area on his coccyx. Thismorning he has a deep tissue injury that must likely started at the OSH or during the ride here. Deep tissue injury forming on his coccyx measuring 2cm x 2.5cm, purple tissue with blanchable erythema on the surrounding skin. Mepilex border dressing in place. Suggest to place pt on a [facility] bed.? 03/29 -?coccyx deep tissue injury is worse then last assessment which is concerning. Area now a dark purple, almost black in color measuring 6cm x 3cm. No drainage noted on mepilex border dressing. Suggested to nursing that they offload pressure from coccyx at all times to allow area to continue evolving without worsening.? 04/04 -?deep tissue injury continue to evolve. Center is now an unstageable pressure injury measuring 2cm x .8cm, some nonblanchable purple tissue remains on the left side. Mepilex border dressing and offload still suggested treatment plan. ?? 04/13 - pressure injury on coccyx is unstageable. Base filled with yellow slough in and area measuring 4.5cm x 1.3cm, surrounding area is blanchable erythema. Small amount of purulent drainage on mepilex border dressing. Suggested to bedside nurse to order Santyl to be applied to base daily. ?? 04/17 -??unstageable ulcer over coccyx is slightly improved. Yellow slough starting to debride withthe use of the Santyl. Skin above the ulcer appears more fragile, atmospheric scientist in color, concern that this area is beginning to breakdown. Pt currently on a [facility] bed. Please offload pressure from coccyx at all times. Current assessment: surrounding skin that was fragile above ulcer is now also open and covered withyellow slough. I lost my measurements so will redo next week. Spoke with bedside nurse regarding using the 2x2 guaze to apply the Sanytl to the wound. This keeps it contained to the wound bed. ?? Recommend Dime size amount of Santyl to 2x2 dressing, place over yellow slough on coccyx wound. Cover with??Mepilex??sacral??border. Change every 5-7 days or prn for saturation. Lift daily to assess area and place back down.? Offload pressure from coccyx at all times Turn and reposition pt q2hrs Float heels off from mattress?? Viktoria Farr, Pressure Ulcer Prevention Nurse * Eleonora Machado, RD - 04/20/2019 1141 EDT Nutrition Medical Summary: 64 y.o.male??with a history of cigarette smoking, not connected with medical care??transferred fromthe MICU where he was treated for sepsis 2/2 PNA and MSSA bacteremia complicated by??acute hypoxic respiratory failure with ARDS??s/p trach and 14 days abx.??He also suffered from??an??acute blood loss anemia due to diffuse stomach and duodenal ulcers.??He currently has a capped trach which has been downsized, is receiving tube feeds at night, requiring supplemental O2. His tracheostomy is planned to be removed today, current goals are decreasing nutritional support from tube feeds, and improving respiratory status/ weaning from supplemental O2 per MD note. Trach removed. Appetite improving slowly, enjoying homemade milkshakes. Subjective: Unable to connect with pt today Objective: Current Nutrition Orders: Diet Rx: dysphagia 3, thins with mighty shakes BID? Relevant Medications: Vitamin C, vitamin D, Fe, MVM, prozac, senna, zinc Relevant Labs: Lab Results Component Value Date/Time NA 136 04/20/2019 05:29 K 4.3 04/20/2019 05:29 CO2 26 04/20/2019 05:29 CL 104 04/20/2019 05:29 BUN 66 (H) 03/24/2019 06:00 CREATININE 0.63 (L) 04/20/2019 05:29 GLUCOSEFINGE 126 (H) 04/07/2019 11:20 CALCIUM 8.6 04/20/2019 05:29 PHOS 3.8 04/20/2019 05:29 MG 1.8 04/20/2019 05:29 Anthropometrics: Height: 181.6 cm (71.5) Weight : 55.4 kg (122 lb 2.2 oz) Body mass index is 16.8 kg/m??. Usual Body Weight: 150 lbs Wt Readings from Last 8 Encounters: 04/10/19 55.4 kg (122 lb 2.2 oz) Weights Filed This Admission 03/17/19 0934 03/19/19 0400 03/27/19 1416 03/29/19 0500 Weight: 70 kg (154 lb 6.4 oz) 70.4 kg (155 lb 3.2 oz) 71.4 kg (157 lb 8 oz) 71 kg (156 lb 8.4 oz) 04/05/19 1037 04/06/19 0530 04/06/19 0900 04/07/19 1313 Weight: (S) 59.8 kg (131 lb 13.4 oz) 59 kg (130 lb 1.1 oz) (S) 63.5 kg (139 lb 15.9 oz) 64 kg (141 lb 1.5 oz) 04/08/19 0548 04/08/19 0900 04/09/19 0400 04/10/19 1100 Weight: 63 kg (138 lb 14.2 oz) 59.4 kg (130 lb 15.3 oz) 60.5 kg (133 lb 6.1 oz) 55.4 kg (122 lb 2.2oz) Estimated Daily Nutritional Needs: Estimated needs on new wt of 55.5K: >1900 for anabolism (BEE x 1.5) 85-100 gm pro (1.5-1.8/kg) Nutrition Focused Physical Findings: Digestive Systems: Last BM 04/20 (large, soft/loose) Skin: stage 3 pressure injury to cocyx Skin tear to arm ?? Estimated Nutrition Intake: Calorie counts: 04/17: 435 kcal, 11 g protein (1 meal recorded); ordered 818 kcal, 32 g protein from room service, 2 meals + 1 Boost 04/18: 1725 kcal, 63 g protein (3 meals, 2 supplements); ordered 1272 kcal, 46 g protein + 2 Boost,3 meals 04/19: 310 kcal, 13 g protein (1 meal, 1 supplement), ordered 320 kcal, 14 g protein, 2 meals + 2 Boost TF: Appears to have received 100% of ordered amount each of last 3 days: 1575 kcal, 98 g protein/day ?? Assessment: 64 yo male admitted with septic shock, ARDS. Overall improving slowly. Trach removed yesterday. Tolerating PO intake though appeite remains low, improving slowly. Calorie counts incomplete, however, suggest pt consuming average of 823 kcal, 29 g protein, less than half of estimated needs. Concern that pt will not be able to meet needs orally; pt feels he will eat better w/NGT out. Continue to offer supplements, will encourage nutrient dense foods to support adequate intake. Will follow. Wgt trending down significantly (20.9%) on last assay, please recheck wgt to further assess nutritional status. Vitamin C, vitamin D, Fe, MVM remain appropriate. Nutrition Risk Level: Moderate (2) Medical Nutrition Therapy Plan and Recommendations: Continue diet, MVM, vitamin D Continue zinc, vitamin C thru 05/26 for 10 day course *Please weigh patient today, recheck tuesday Monitor lytes, Mg, Ca and phos daily, replete prn Continue to monitor intake, wgt, labs, skin, bowels, comfort. RD following ?? Eleonora Machado MS, RD B6 Dietitian Pager: [phone] * Eliel Oswald, PT - 04/20/2019 1027 EDT Rehabilitation Therapy Acute Therapies [facility] Physical Therapy Encounter Note Date of Service: 04/20/2019 Subjective/Objective Subjective The best way for me to get my breath is laying down Objective Intervention completed today: Time: 7080-5461 Total treatment time: 25 minutes. Timed code treatment minutes: 25 Vital signs were monitored and were stable throughout physical therapy session. SpO2 98 % on room air. Ambulated on 3 l nc with SpO2 85-90 %. Recovered to 100 % after several minutes supine on 3 l nc. Returned to room air Therapeutic Activity: Bed Mobility: pt performed supine -> sit with??supervision??assist and verbal cues for technique,??left??side of bed without??bed features. Patient performed sit -> supine with??supervision??assist and verbal cues for technique,??left??side of bed without??bed features. ?? Transfers: pt performed sit -> stand transfer from??bed and wheelchair, with??min ??assist and verbal cues for hand placement/ safety??with walker ?? Pt performed stand to sit transfer to??wheelchair and chair??with min to mod??assist to slow descent and verbal cues for hand placement to control descent ?? Patient ambulated??with rolling walker, ~10 X 2??feet, min??assist with verbal cues for pacing and breathing. ??Patient stopped every few steps for a brief standing rest break. ?Encouraged pursed lip breathing throughout all activity Patient/Family Education: Topic: Activity pacing/Energy conservation Breathing exercises Gait Transfers Learner: patient Method: verbal Barriers to Learning: none noted Outcome: needs practice, verbalized understanding and returned demonstration Team Communication: Spoke with nursing prior to and after PT session Assessment/Plan Assessment Patient continues to progress well. He tolerated increased activity and required less oxygen. Anticipate continue steady progress. Patient remains appropriate for acute rehab with multidisciplinary approach. Plan Continue per plan of care Recommended Discharge Destination: Acute rehabilitation Recommended Discharge Services: Physical therapy at rehabilitation facility Recommended Equipment Needs: To be determined by next care provider Other recommendations: No other consults recommended at this time Primary Therapist: Pager: [phone] Eliel Oswald, PT 04/20/2019 10:27 * Dorinda Smith, RT - 04/20/2019 1018 EDT Respiratory Consult/Progress Note Indications for Respiratory therapy: Decannulation of trach Data Vitals: Heart Rate: 96 BPM, Resp: 24, SpO2: 100 % FIO2/O2 Device: O2 Flow Rate (L/min): 0 l/min, , O2 Device: None, FIO2 %: 21 % RT Orders: Q4 eval TID Duoneb Protocol Scoring: Bronchodilator/Inhalation Therapy Frequency Bronchodialator - Clinical Indications: LIP order Breath Sounds: Any abnormal BS decreased Response: No change / no treatment Pulse: <100 Resp Rate: 18-25 SOB: With exertion Total Score: 3 Comment:: PRN Airway Clearance Therapy Frequency Airway Clearance - Clinical Indications: Productive cough Breath Sounds: Clear / diminished Sputum: Small (tsp) / None Consistency: None Cough Effort: Strong, productive Color: None Total Score: 1 Comment: not indicated Hyperinflation Therapy Frequency Hyperinflation - Clinical Indications: No clinical indications Breath Sounds: Diminished / crackles Surgery: No X-Ray / Atelectasis: No O2 Requirements: O2 at baseline Mobility Status: Mobile / at baseline Total: 2 Comment: not indicated Action/Events Respiratory events; Dressing around stoma site is clean and dry with no secretions oozing from site which had been previously noted. Pt reports he has successfully been coughing secretions into his mouth. BBS are clear pre and post bronchodilator treatment. No distress noted. Dorinda Smith, RT 04/20/19 * Facundo Mcguire, RT - 04/20/2019 0622 EDT Respiratory Consult/Progress Note Indications for Respiratory therapy: Decannulation of trach Data Vitals: Heart Rate: 87 BPM, Resp: 24, SpO2: 93 % FIO2/O2 Device: O2 Flow Rate (L/min): 0 l/min, , O2 Device: None, FIO2 %: 21 % RT Orders: Q4 eval Protocol Scoring: Bronchodilator/Inhalation Therapy Frequency Bronchodialator - Clinical Indications: LIP order Breath Sounds: Clear Response: No change / no treatment Pulse: <100 Resp Rate: 18-25 SOB: With exertion Total Score: 2 Comment:: PRN Airway Clearance Therapy Frequency Airway Clearance - Clinical Indications: Productive cough Breath Sounds: Clear / diminished Sputum: Small (tsp) / None Consistency: None Cough Effort: Strong, productive Color: Clear / white Total Score: 1 Comment: not indicated Hyperinflation Therapy Frequency Hyperinflation - Clinical Indications: No clinical indications Breath Sounds: Diminished / crackles Surgery: No X-Ray / Atelectasis: No O2 Requirements: O2 at baseline Mobility Status: Mobile / at baseline Total: 2 Comment: not indicated Action/Events Respiratory events; Patient seen for Q4 checks. PT has slightly sunken in anatomy which makes it difficult for tight seal for healing trach site. Weaned completely off oxygen to room air. No acute issues. FACUNDO MCGUIRE, RT 04/20/19 * Ilan Ghosh RN - 04/19/2019 1413 EDT Acute Inpatient Rehabilitation Rehab Referral Review Patient Review: EMR reviewed. Sepsis secondary to left lower PNA, MSSA bacteremia, complicated by acute hypoxic respiratory failure with ARDS. Referral Status and Assessment: Therapies now recommending acute rehab when medically cleared. Comments: See Dr. Lennon consult note from yesterday 04/18. Follow-up Plan: Will continue to follow daily along with physiatry. ILAN GHOSH RN 04/19/2019 14:13 * Jennifer Adler - 04/19/2019 1337 EDT CM Note Note that patient is making gradual improvement. Now being considered for discharge to Acute Rehab with boss miner following. Jess Adler RN CCM [id number] * Eliel Oswald, PT - 04/19/2019 1121 EDT Rehabilitation Therapy Acute Therapies [facility] Physical Therapy Encounter Note Date of Service: 04/19/2019 Subjective/Objective Subjective It's not my legs. It's just hard to get air Objective Intervention completed today: Time: 5875-3761 Total treatment time: 35 minutes. Timed code treatment minutes: 35 ?? Vital signs were monitored and were stable throughout physical therapy session. O2 increased to 6 lnc with activity and for ~ 5 minutes during recovery. SpO2 ~ 88-93 during activity. O2 decreased to4 l nc for continued recovery at 93 % at rest. Therapeutic exercise: Instructed patient in therapeutic exercises and provided pt with cueing to facilitate improved technique/proper performance in order to optimize outcome. Active : X 10 reps Supine Ankle pumps Hip abd/add Heel slides Hip external/internal rotation Therapeutic Activity: Bed Mobility: pt performed supine -> sit X 2 with supervision assist and verbal cues for technique, left side of bed without bed features. Patient sat on edge of bed ~ 10 minutes with supervision. MD team in room talking to patient while sitting on edge of bed. Patient fatigued sitting and wanted to lie down to rest. Patient performed sit -> supine with supervision assist and verbal cues for technique, left sideof bed without bed features. ?? Transfers: pt performed sit -> stand transfer from bed, with min assist and from wheelchair withmin assist and verbal cues for hand placement/ safety with walker ?? Pt performed stand to sit transfer to wheelchair and chair with min to mod assist to slow descent and verbal cues for hand placement to control descent ?? Patient ambulated with rolling walker, ~10 feet, min assist with verbal cues for pacing and breathing. Patient stopped every few steps for a brief standing rest break. ?? Transfer wheelchair to bedside commode ambulated ~ 2 feet to turn with min assist. ??Patient left on commode with call grayson in reach and instruction to call nurse when finished. Nursing notified that patient was on commode. ?? Patient/Family Education: Topic: Activity pacing/Energy conservation Assistive device/technique Bed mobility Exercise Gait Home program Safety Transfers Learner: patient Method: verbal Barriers to Learning: none noted Outcome: needs practice Team Communication:spoke with nursing prior to and after PT session Assessment/Plan Assessment Patient continues to progress well. Remains appropriate for acute rehab with multidisciplinary approach to maximize function Plan Continue per plan of care Recommended Discharge Destination: Acute rehabilitation Recommended Discharge Services: Physical therapy at rehabilitation facility Recommended Equipment Needs: To be determined by next care provider Other recommendations: No other consults recommended at this time Primary Therapist: Pager: [phone] Eliel Oswald, PT 04/19/2019 11:21 * Paola Mendez, RT - 04/19/2019 0914 EDT Respiratory Progress Note Indications for Respiratory therapy: Trach Data Vitals: Heart Rate: 98 BPM, Resp: 24, SpO2: 93 % FIO2/O2 Device: O2 Flow Rate (L/min): 4 l/min, , O2 Device: Nasal cannula, FIO2 %: 50 % RT Orders: Continuous trach status - #7 Bivona, deflate continuously TID Duoneb Q4 trach eval PRN ACT PRN speaking valve PRN trach collar Action/Events Respiratory events; Patient with #7 Bivona, cuff deflated, remains on 4L NC with trach capped. Gauze around trach site noted to be saturated with secretions, as with skin around trach site. Trach care done, new gauze applied. Patient declined need for suction. Emergency equipment at bedside. Of note, this is day 3 of toleration of capped trach. 1141 - Patient decannulated without complication. Stoma held closed with steri- strips, dressing andtegaderm applied. Noted to have oozing secretions through tegaderm and gauze with strong cough. Change as needed RT Caren 04/19/19 * Igor Maza MD - 04/19/2019 0657 EDT Medicine Daily Progress Note Chief Complaint: Rapid atrial fibrillation Principle Problem: Sepsis??secondary to??left lower lobe PNA and MSSA bacteremia c/b ARDS 24hr Events: - None Subjective: Mr. Bryan reports that he continues to feel slowly and steadily better. His breathing remains a bit difficult but may be improving. He states that he continues to cough up small amounts of clear sputum. He feels relief from his duonebs. He states that his strength is improving and he has now been up and walking with PT and is walking much further than he had been before. States that his appetite is slowly improving, denies any nausea or dysphasia with meals. States that he had pot roast last night, and really enjoys the vanilla milkshakes the nurse is making for him.He states he did not have a BM today or yesterday, denies abdominal pain and does not feel constipated. He is hopeful about removing his tracheostomy today. Vital Signs: Temp: [35.6 ??C (96.1 ??F)-36.9 ??C (98.4 ??F)] (), Pulse: -- (), Resp: [20-22] (), BP: (108-120)/(63-76) (), SpO2: [88 %-96 %] () on 4L NC Physical Exam: GA: NAD, breathing comfortably with trach collar capped, on 4L NC Heart: RRR, no MRG Lungs: diffuse bilateral inspiratory crackle and low pitched wheezes Abd: soft, NTND : no park LE: no edema, symmetric in size Neuro: A&O x 3, PERRL, conjugate gaze, fluent speech, no dysarthria, no facial asymmetry, moving all limbs purposefully Results, Medications, Images, Procedures, Microbiology Reviewed: BMP, Ca, Mg, Phos: Recent Labs 04/18/19 0531 NA 136 K 4.1 CL 104 CO2 27 CREATININE 0.66 CALCIUM 8.3* CALCCA 9.6 MG 1.9 PHOS 3.8 CBC: Recent Labs 04/18/19 0531 WBC 11.97* HGB 7.8* HCT 24.7* MCV 91 PLT 263 Assessment and Plan: 64 y.o.male??with a history of cigarette smoking, not connected with medical care??transferred fromthe MICU where he was treated for sepsis 2/2 PNA and MSSA bacteremia complicated by??acute hypoxic respiratory failure with ARDS??s/p trach and 14 days abx.??He also suffered from??an??acute blood loss anemia due to diffuse stomach and duodenal ulcers.??He currently has a capped trach which has been downsized, is receiving tube feeds at night, requiring supplemental O2. His tracheostomy is planned to be removed today, current goals are decreasing nutritional support from tube feeds, and improving respiratory status/ weaning from supplemental O2. #Acute hypoxic respiratory failure: hospital course c/b ARDS secondary to pneumonia,??volume overload, and COPD (empysema seen on CT).??Most recent CXR on 04/18 showed no significant changes. He has tolerated transition from trach collar O2 to NC well, now weaning from O2 NC. -??Wean NC flow rate as tolerated. Goal >88% due to likely underlying COPD. - Continue Duonebs TID - Guaifenesin for secretions - Clonazepam BID PRN for anxiety - Per RT: ok to remove trach today, patient has tolerated 72 hours with trach capped. ?? #Normocytic anemia. 2/2??upper GI bleed from diffuse stomach and duodenal ulcers, s/p??EGD, multiple transfusions of PRBCs and one of platelets. Now??likely??multifactorial??2/2 to phlebotomy,??bone marrow suppression from critical illness, chronic anemia, and potential slow continued GI bleeding. ? ?Iron studies suggest mixed iron deficiency and chronic disease. - daily iron supplementation (can crush and administer through NG tube) - Transfuse if HgB <7?? -??Monitor??CBC Q48hr - PPI BID for 4 weeks through 04/19/2019, will switch to PO QD tomorrow ?? #Paroxysmal atrial fibrillation:??Patient without HEAVY EQUIPMENT MECHANIC diagnosis, has been paroxysmal throughout thehospitalization.??Converted to sinus rhythm with beta blockade -??Metoprolol 12.5 mg twice daily - no AC at present due to GI hemorrhage and low CHADS score ?? #Severe??protein calorie malnutrition??and Critical Care myopathy. His PO intake is slowly improving per his report however is still limited by low appetite and dissatisfaction with hospital food taste. - continue tube feeds??only at night to encourage PO intake during the day -??tube feeds with dysphagia??3??diet + thins, will consider discontinuing tube feeds tomorrow as patient is tolerating p.o. diet well. Has good intake. -mighty shakes with meals - continue multivitamin, vitamin C, zinc -??nutrition consulted, appreciate recs - DIE ATTACHING MACHINE TENDER consulted, appreciate recs ?? #Unstageable sacral pressure ulcer -Wound care following?? - Mepilex/dressing changes??per wound care - air mattress with frequent dressing changes Housekeeping: DVT ppx: enoxaparin 40mg daily Diet: tube feeds with dysphagia 3 diet Consults: DIE ATTACHING MACHINE TENDER, OT, PT, Nutrition, Physiatry Discharge Plan: PT recommending Acute Rehab Jaswinder Newman MS3 13:41 I was present with the medical student for the history, exam, and medical decision making documented. I have edited the medical student note as appropriate. Vick Gibson MD 04/19/2019 14:19 Attending attestation: I have seen and examined the patient and agree with findings and plans as outlined in the resident's note above. Igor Maza MD * Facundo Mcguire, RT - 04/19/2019 0558 EDT Respiratory Progress Note Indications for Respiratory therapy: Trach Data Vitals: Heart Rate: 85 BPM, Resp: 20, SpO2: 95 % FIO2/O2 Device: O2 Flow Rate (L/min): 4 l/min, , O2 Device: Nasal cannula, FIO2 %: 50 % RT Orders: Q4 trach eval Action/Events Respiratory events; 1200: Patient seen no suction needed no distress noted. Spo2 87% Nasal cannula increased to 5 L/min 0400: Patient seen breath sounds clear. No suction indicated at this time. Spo2 95% O2 decreased to4L/min RT EMILY 04/19/19 * Devora Lara RT - 04/18/2019 2111 EDT Respiratory Progress Note Indications for Respiratory therapy: trach/ duo treatments Data Vitals: Heart Rate: 90 BPM, Resp: 20, SpO2: 95 % FIO2/O2 Device: O2 Flow Rate (L/min): 4 l/min, , O2 Device: Nasal cannula, FIO2 %: 50 % RT Orders: TID duoneb; Q4 trach assessment Action/Events Respiratory events; Treatments given as ordered Trach care done at 2100 Response/Results Weaning and Toleration of treatments; tolerating capped trach and treatments well RT Matthew 04/18/19 * Toño Laura - 04/18/2019 1725 EDT Spiritual Care Note Re: Shirlene Bryan : 1955, AGE: 64 y.o. Room: [place] [id number] Shirlene Bryan who is listed as Unknown has received a visit from the Spiritual Care Department on04/18/2019. Need/Assessment: ?? Initial visit with Shirlene. Intervention: ?? Explained services. Provided supportive care. Will continue to follow this patient and as neededprovide emotional and spiritual support. Outcome: ?? Plan of Action: No Follow up necessary - Needs met Continued Family Support x Continued Support from [employer] following patient Make a Referral to: Continued Support with Volunteer Visits Connect with Community Supports Ask for a consult from: Other: Visit Initiated by: Referral by computer or phone message Time: End of Life / Comfort Care / Hospice Page direct contact by pager or staff person Time: 2 Level of Visit Services Provided: Anointing of Sick Prayer Communion Relaxation through music Assist Advanced Directives Integrative therapies Assist Decision Making Mckeon and Prayer at dying Exploration of Ethical issues Present at time of Family Support Other The Rev. Toño LAWS, [employer] Leila [address] Phone [phone] Pager [phone] Spiritual Care is available 24 hours a day. Office hours are 0800 to 1700 Tuesday through Tuesday and 0830 to 1630 Tuesday and Tuesday. Interfaith and Mormon chaplains are available 24 hours a day. For routine consults please call and leave a message with the Spiritual Care Office ([phone]) and patients will be seen within 24 hours. [place]all emergent consults page the Sikh or Interfaith on-call [employer] through [facility] ([phone]). * Lucy Sánchez, JORGE - 04/18/2019 1514 EDT Inpatient Acute Rehabilitation Unit on the [facility] Admission Coordinator Initial Assessment Reason for Hospitalization: Sepsis secondary to left lower PNA, MSSA bacteremia, complicated by acute hypoxic respiratory failure with ARDS Living Arrangements: Alone in 2 story home Current Functional Status: Ambulating using RW min assist and verbal cues for hand placement, increased oxygen needs with activity to 6L Patient/Caregiver Education: Met with patient to provide education about Acute Rehabilitation and left a brochure. Also explained referral review process and answered questions about [facility]'s Acute IP Rehab Center and programs. Social Supports/Discharge Plan: S.O. Amount of assist will need clarification Insurance/Financial Needs: Medicare Review of Acute IP Rehab Admission Criteria Condition causing need for acute rehabilitation: ??? Patient has a significant decline in function as the result of Debility and Pulmonary Other. Need for Close Medical Supervision: ??? Arehab setting is medically necessary to monitor and manage the ongoing medical and functional concerns and to develop and oversee the plan of care. Appropriate Therapy Needs: ??? Patient requires ongoing therapeutic intervention rehab therapy including physical therapy. Initial Determination for 's Acute Inpatient Rehabilitation Center: ??? Acute Rehab Determination Deferred - pending therapy tolerance, medical clearance and Physiatryconsult. Plan: ??? Rehab Admission Coordinator will continue to follow daily. Rehab Manager Payment to consult Thank you. This IRF Eligibility Assessment is subject to change: The above documented assessment is based on information available and this patient???s status on this date. For final determination, this patientmust meet all of the IP Rehab Eligibility Criteria on the day of admission to an IRF. If the information available and/or patient???s status changes between the timing of this assessment and the timepatient is ready for discharge from the acute care hospital, then the eligibility assessment may change. * Rona Negron [facility])-DIE ATTACHING MACHINE TENDER - 04/18/2019 1432 EDT Speech-Language Pathology Voice Prosthesis & Swallowing Consults DIE ATTACHING MACHINE TENDER Diagnosis: Aphonia, Loss of Voice: Medical Diagnosis: [id number] J18.9 Pneumonia, unspecified organism-J18.9[ICD-10-CM] Date of Service: 04/18/2019; 14:32 Date of Onset: 03/17/2019 Date of Referral: 04/09/19 Start Time: 1400 Total Therapy minutes: 15 minutes: (7 minutes tracheostomy; 8 minutes swallowing) SUBJECTIVE: The food is better now. per pt regarding food since advanced to dysphagia 3 diet OBJECTIVE: Current Status: ?? RT Orders: Q4 trach eval. Continues with bivona tts 7 with cap. Has not tolerated room air and needs 4L NC. He continues with tube feeds overnight. Calorie count. Impact at 75 cc/hr x 14 hr q HS. Cognitive Status: Patient was alert and cooperative. Respiratory Status: Had continued tolerance of current capped trach. Voice Prosthesis Consult Suctioning needed: Pt coughed up into mouth and was able to self suction.Cap: yes, reducing machine operator in place Vocal quality with #7 trach and cap: better, less breathy, with less air escape from trach site today Clinical Swallow Consult Positioning: Sitting upright in chair Oral Peripheral Exam: Face: Symmetric, ng tube in nares Lips: Symmetric Oral Mucosa: [place] and Moist Tongue: WNL Velum: Symmetrical soft palate elevation during phonation attempts Dentition: Adequate dentition Jaw Excursion: Adequate Consistencies Tested: was assessed with ice chips and water. Reports he is waiting for his lunch. Oral Phase Findings: Oral phase of swallowing is within normal limits. Patient presents with adequate oral containment, slow, but functional chewing and appropriate bolus transport for all consistencies tested. Pharyngeal Phase: Patient presents with pharyngeal phase deficits as suggested including intermittent throat clearing. Throat clear is present when not eating as well. No s/s with small, single sips water. Esophageal Phase: has no overt issues. Patient/Family Education/Training: Topic: Patient/Family education and training was completed today including the results of today's exam/recommendations, anatomy and physiology of the swallowing mechanism, altered swallowing physiology withtracheostomy and purpose of trach cap. Also d/w pt again ongoing need for hyperalimentation given need for skin/wound healing and recovery. Also d/w pt need for rehab stay before going home. Learner: patient Method of Education: Verbal Barriers to Learning/Education: none Patient: was able to verbalize understanding of information and needs further instruction and education Family: not present. ASSESSMENT/CLINICAL IMPRESSIONS: is a 64 y.o. male admitted with pneumonia and now with tracheostomy. A consult was completed today by Speech Language Pathology to assess tolerance of current downsized trach and cap. The purpose of the consult is to promote normalized swallowing function and vocal communication. is currently able to tolerate downsized trach and cap and vocal quality is now less breathy, with less air escape from trach site. Suspect due to smaller trach trach site has healed and closed a bit. Tolerance of downsized trach and cap will assist with normalizing laryngeal and pharyngeal reflexes necessary for secretion management, swallow function and cough. Prognosis for tolerance of downsized trach and cap is judged to be good with goal of decannulation. A clinical swallow consult was completed today by Speech Language Pathology secondary to concerns for oropharyngeal dysphagia, and risk of laryngeal penetration/aspiration. continues to present with normal oral motor functioning. He presents improved pharyngeal stage dysphagia. He has no overt s/s laryngeal penetration/aspiration and has a much stronger cough. Intermittent throat clearing still present, but also present when not eating/drinking. Etiology of dysphagia is patient's overall significantly deconditioned state, weakness. remains at moderate risk of aspiration atthis time. Prognosis for ongoing improvement in swallow function is judged to be good. Anticipate that as patient gets stronger overall by working with physical therapy his swallowing function and physiology will continue to improve. Functional Communication Measures ([place] [employer]- [employer], 2002). The Functional Communication Measures (FCM???s) are a series of 7 point rating scales, ranging fromleast functional (Level 1) to most functional (Level 7). They have been developed by [employer]UE to describe different aspects of patient???s functional communication and swallowing abilities over the course of DIE ATTACHING MACHINE TENDER intervention. Voice following Tracheostomy Level 4: The individual occasionally requires minimal cueing/assistance to produce simple sentences/messages during structured conversations with familiar communication partners and usually requires moderate cueing/assistance to produce simple sentences/messages with unfamiliar partners, although accuracy may vary. Spontaneous conversation is not consistent and the individual rarely produces complex sentences/messages that are understood by others. Participation in vocational, avocational and social activities requiring oral communication is limited some of the time and alternate means of communication may be needed. Swallowing Level 4: Swallowing is safe, but usually requires moderate cues to use compensatory strategies, and/or the individual has moderate diet restrictions and/or still requires tube feeding and/or oral supplements. GOALS: Patient will tolerate downsized trach and cap to vocally communicate wants and needs (ongoing) Patient will tolerate oral intake without signs or symptoms of aspiration (ongoing) PLAN: Patient will continue to benefit for further DIE ATTACHING MACHINE TENDER intervention in this setting to address dysphagia management and intervention needs. Tracheostomy Status: Continue with #7 trach and cap as tolerated. Swallowing: Continue dysphagia 3 diet. Continue with Mighty shakes and magic cup for supplements. Continue higher calorie, nutrient dense foods given high nutrition needs. Continue thin liquids. He needs to take small, single sips. He needs to be upright at 90 degrees and have cap on trach for all oral intake. It would be best for him to eat/drink in chair. If he has any increase upper airway congestion with oral intake, pt should clear throat and cough to clear. D/c oral intake with any intolerance. Continue overnight tube feedings to provide some nutrition/hydration needs as he undergoes calorie count. DIE ATTACHING MACHINE TENDER to follow Discharge Plan: Pt will require inpatient acute rehabilitation stay. Pager # [phone] (Float DIE ATTACHING MACHINE TENDER Department) * Eliel Oswald, PT - 04/18/2019 2523 EDT Rehabilitation Therapy Acute Therapies [facility] Physical Therapy Encounter Note Date of Service: 04/18/2019 Subjective/Objective Subjective How about I walk and then end up in the chair Objective Intervention completed today: Time: 4881-3425 Total treatment time: 25 minutes. Timed code treatment minutes: 25 Vital signs were monitored and were stable throughout physical therapy session. O2 increased to 6 lnc with activity and for ~ 5 minutes during recovery. SpO2 ~ 88-93 during activity. O2 decreased to4 l nc for continued recovery at 93 % at rest. Therapeutic Activity: Bed Mobility: pt performed supine -> sit with supervision assist and verbal cues for technique, left side of bed without bed features. Transfers: pt performed sit -> stand transfer from bed, with min to mod assist and from wheelchair with min assist X 2 and verbal cues for hand placement/ safety with walker Pt performed stand to sit transfer to wheelchair and chair with min assist and verbal cues for handplacement to control descent Patient ambulated with rolling walker, ~12 feet, min assist with verbal cues for pacing and breathing. Patient stopped every few steps for a brief standing rest break. Transfer wheelchair to recliner ambulated ~ 2 feet to turn with min assist. Patient/Family Education: Topic: Activity pacing/Energy conservation Assistive device/technique Bed mobility Breathing exercises Gait Safety Transfers Learner: patient Method: verbal Barriers to Learning: none noted Outcome: requires assist and needs practice Team Communication: Spoke with nursing prior to and after PT session Assessment/Plan Assessment Patient is progressing steadily and demonstrated improvement in ambulation distance. Also demonstrating some increased tolerance to activity as patient had OT session just prior to PT session. Anticipate continued steady progress. Patient remains appropriate for acute rehab with multidisciplinary approach to maximize function and increase safety and independence with mobility prior to return home. Plan Continue per plan of care Recommended Discharge Destination: Acute rehabilitation Recommended Discharge Services: Physical therapy at rehabilitation facility Recommended Equipment Needs: To be determined by next care provider Other recommendations: No other consults recommended at this time Primary Therapist: Pager: [phone] Eliel Oswald, PT 04/18/2019 14:21 * Shelly Simon, OT - 04/18/2019 1354 EDT The Rehabilitation Therapy Acute Therapies [facility] - Occupational Therapy Encounter Note Date of Service: 04/18/2019 Subjective/Objective SUBJECTIVE: I am sorry I need to use the commode OBJECTIVE: Time: 13:05 Total treatment time: 25 minutes. Timed code treatment minutes: 25 Interventions included: Self-Care/Home Management : patient resting in bed at beginning of OT session. Motivated to participate in today's session. functional mobility: supine to sit with min contact assist, required ~ 1 minute rest . While seatededge of bed patient participated in UE therex tasks. Patient required min cues for initiating rest and proper breathing. Toilet tx: min contact assist of two for bed to commode transfer . Patient resting in bed at end ofOT session call grayson within reach toileting: max assist with hygiene, with 1 assist to maintain balance Therapeutic Exercise: While seated edge of bed patient performed the following exercises: Able to recall two without cueing, provided written program to patient today. Patient completed all reps x 10. Increased cueing needed for rest and proper breathing today. ER/IR with 1# db Overhead press, forward chest press with 1# db Elbow flexion 2# Wrist flexion , wrist extension 2# db Rest required between each exercise Vital signs: Position Heart Rate (bpm) Blood Pressure (mmHG) Respiratory Rate (breaths/min) Oxygen Saturation SPO2 Liters of Oxygen Pre: Seated 89 92% 4L NC Post: seated 91% 4L NC Patient/Family Education: Topic: Benefits of activity Compensatory strategies Role of OT Energy conservation D/C planning Home exercise program Learner: patient Method: verbal, handout and demonstration Barriers to Learning: none noted Outcome: verbalized understanding and practice needed Assessment/Plan ASSESSMENT: Shirlene continues to show progress and increased tolerance to activity/therex. Patient remains appropriate for ongoing skilled OT to address his strength, activity tolerance deficits impacting his ability to resume his prior level of independence. Continue to support Acute rehab. PLAN: Continue per plan of care Recommended Discharge Destination: Acute rehabilitation Recommended Discharge Services: Occupational therapy at rehabilitation facility Recommended Discharge Equipment: To be determined by next care provider Pager: [phone] SHELLY SIMON OT, 04/18/2019, 13:55 * Gabby Eldridge - 04/18/2019 1101 EDT RESOURCE ASSOCIATE ASSISTANCE 04/18/19 Vehicle Modification Technician met with patient & his significant other to introduce self, provide information on benefits & offer assistance with application process. Information was provided on SSDI & SSI. Patient & significant others questions were answered. Plan to meet on Tuesday morning to begin application process. Gabby Eldridge #[id number] * Igor Maza MD - 04/18/2019 0900 EDT Medicine Progress Note Service Date: 04/18/2019 Admit Date: 03/17/2019 9:03 Reason for Admission: 64 y.o.??male??transferred from the MICU??with a chief complaint of Sepsis??secondary to??left lower PNA and MSSA bacteremia complicated by??cute hypoxic respiratory failure with ARDS secondary to pneumonia,??volume overload, and COPD 24 Hour Events: -O2 desaturation to 86 last night when on 5L by NC. Brought back up to 6L and O2 sats back in the low to mid 90s. Tried breathing with just RA this morning but desatted to 87% back on to 3L Subjective/Objective Subjective Mr. Bryan states that he is doing pretty well this morning. His breathing is OK but he felt SOB overnight when he desatted. He reports that is still feels a bit restricted. He did not get any PRN duonebs yesterday. He notes that his appetite is definitely improving although it's still not back to normal. He states he ate eggs, an egg salad sandwich yesterday. His strength continues to improve and he is moving more but still needs help with walking. Is ambulating with assistance from bed to the bathroom and chair. He had a bowel movement yesterday for the first time in several days, states that it appeared normal, and had a small amount of liquid stool today. He states he is clearing clear secretions with suction periodically throughout the day. He denies shortness of breath while at rest, any pain with inspiration, subjective fevers or chills. Objective Vital Signs Temp: [35 ??C (95 ??F)-36.6 ??C (97.9 ??F)] (), Heart Rate: [78 BPM-92 BPM] (), Resp: [18-25] (), BP: (112-131)/(62-79) (), SpO2: [86 %-96 %] () on 3L by NC Physical Exam GA: NAD, breathing comfortably on NC at 5L. Has trach collar with speaking box Heart: RRR, no MRG Lungs: bilateral inspiratory high pitched wheezing R>L. Abd: soft, NTND : no park LE: no edema, symmetric in size Is PICC or central line present? no Medications Current Facility-Administered Medications: acetaminophen (TYLENOL) solution unit dose cup 995 mg oral Q8H PRN albuterol (ACCUNEB) nebulizer solution 2.5 mg nebulization Q4H PRN alteplase (CATHFLO ACTIVASE) injection 2 mg intercatheter PRN ascorbic acid (vitamin C) (VITAMIN C) tablet 250 mg per g tube DAILY cholecalciferol (Vitamin D3) tablet 1,000 Units oral DAILY clonazePAM (KLONOPIN) tablet 0.5 mg oral BID PRN collagenase (SANTYL) ointment topical DAILY dextrose 50 % solution 12.5-25 g intravenous PRN enoxaparin (LOVENOX) injection 40 mg subcutaneous DAILY ferrous sulfate EC tablet 324 mg oral DAILY (BREAKFAST) guaiFENesin (MUCINEX) SR tablet 600 mg oral BID impact peptide 1.5 0.09 gram- 1.5 kcal/mL per ng tube CONTINUOUS ipratropium-albuterol (DUONEB) 0.5 mg-3 mg(2.5 mg base)/3 mL nebulizer solution 3 mL nebulization TID magnesium sulfate 2g in D5W 50 ml intravenous PRN melatonin tablet 5 mg oral QHS metoprolol (LOPRESSOR) tablet 12.5 mg oral BID Multivitamins with minerals + ferrous gluconate (CENTRUM) oral solution 15 mL feeding tube DAILY nicotine (NICODERM CQ) 7 mg/24 hr patch 1 Patch transdermal DAILY pantoprazole (PROTONIX) injection 40 mg intravenous BID papain-alpha amylase-cellulase (CLOG ZAPPER) 2-5 mL feeding tube PRN potassium chloride in water infusion 20 mEq intravenous PRN potassium phosphate 3 mMol/mL oral solution 15 mmol oral Daily PRN senna (SENOKOT) tablet 2 Tab oral QHS Or sennosides (SENOKOT) syrup 17.6 mg per ng tube QHS sodium chloride 0.9 % (flush) flush 10 mL intercatheter WEEKLY Wool Alcoh-Min Amn-Vhyss-Eorqv (EUCERIN) cream topical PRN zinc sulfate (ZINCATE) capsule 220 mg per g tube DAILY Labs CBC: Recent Labs 04/16/19 0502 04/18/19 0531 WBC 9.82 11.97* HGB 7.6* 7.8* HCT 24.5* 24.7* MCV 92 91 PLT 269 263 Electrolytes: Recent Labs 04/16/19 0502 04/18/19 0531 NA 139 136 K 4.0 4.1 CL 106 104 CO2 29 27 CREATININE 0.63* 0.66 CALCIUM 8.3* 8.3* CALCCA 9.7 9.6 MG 2.0 1.9 PHOS 3.8 3.8 LFTs/GI: No results for input(s): ALKPHOS, AST, ALT, GGT, TBIL, LIPASE in the last 72 hours. UA: No results for input(s): LABSPEC, PHUR, GLUCOSEU, BILIRUBINUR, KETONES, BLOODU, PROTEINUR in the last 72 hours. Micro No new micro Imaging CXR this am - read is still pending Assessment/Plan Assessment 64 y.o.male??with a history of cigarette smoking, not connected with medical care??transferred fromthe MICU where he was treated for sepsis 2/2 PNA and MSSA bacteremia complicated by??acute hypoxic respiratory failure with ARDS??s/p trach and 14 days abx.??He also suffered from??an??acute blood loss anemia due to diffuse stomach and duodenal ulcers.??He currently has a capped trach which has been downsized, is receiving tube feeds at night, requiring supplemental O2. We are currently working on removing trach, decreasing nutritional support from tube feeds, and improving respiratory status. Plan #Acute hypoxic respiratory failure??with ARDS secondary to pneumonia,??volume overload, and COPD (empysema seen on CT).??Most recent CXR on 04/08 showed no changes. Transitioned from trach collar to NC and tolerated other than one desat overnight. Was in the low 90s this AM when NC were displaced and not even delivering O2. Continued intermittent desaturations with worsened wheezing this am and a newly elevated white count 11.97. - Wean NC flow rate as tolerated. Goal >88% due to likely underlying COPD. - Change Duonebs from prn to scheduled TID - CXR to assess new worsening wheezing and elevated WBC - Guaifenesin for secretions - Clonazepam BID PRN for anxiety - PT/OT following ?? #Acute blood loss normocytic anemia.2/2??upper GI bleed from diffuse stomach and duodenal ulcers, s/p??EGD, multiple transfusions of PRBCs and one of platelets. ??Likely??multifactorial??2/2 to phlebotomy,??bone marrow suppression from critical illness, chronic anemia, and potential slow continued GI bleeding. Iron studies suggest mixed cause of anemia including iron deficiency and chronic disease. Hgb stable at 7.8 from 7.6 two days ago. - daily iron supplementation - Transfuse if HgB <7?? -??Monitor??CBCs - PPI BID for 4 weeks through 04/19/2019 and then transition to daily ?? #Paroxysmal atrial fibrillation:??Patient without HEAVY EQUIPMENT MECHANIC diagnosis, has been paroxysmal throughout thehospitalization. Converted to sinus rhythm with beta blockade - Metoprolol 12.5 mg twice daily - no AC at present due to GI hemorrhage and low CHADS score ?? #Severe??protein calorie malnutrition??and Critical Care myopathy. His PO intake is slowly improving per his report however is still limited by low appetite and dissatisfaction with hospital food taste. - continue tube feeds only at night to encourage PO intake during the day -??tube feeds with dysphagia 3 diet + thins -mighty shakes with meals - continue multivitamin, vitamin C, zinc -??nutrition consulted, appreciate recs - DIE ATTACHING MACHINE TENDER consulted, appreciate recs ?? #Unstageable sacral pressure ulcer -Wound care following?? - Mepilex/dressing changes per wound care - air mattress with frequent dressing changes ?? VTE??Prophylaxis Enoxaparin 40mg daily ?? Discharge Plan BETITO anticipated ?? Consults DIE ATTACHING MACHINE TENDER, PT, OT, nutrition ?? Jaswinder Rivaskimmiedana 04/18/2019 9:00 MS3 I was present with the medical student for the history, exam, and medical decision making documented. I have edited the medical student note as appropriate. Vick Gibson MD 04/18/2019 10:34 Attending attestation: I have seen and examined the patient and agree with findings and plans as outlined in the resident's note above. Gradually improving. Cont judicious wound care, offload sacrum as much as possible and enc PO. Hopeto de-cannulate trache and remove JOSE later this week. Igor Maza MD * Cherie Sorto, RT - 04/18/2019 0823 EDT Respiratory Consult/Progress Note Indications for Respiratory therapy: trach eval Data Vitals: Heart Rate: 81 BPM, Resp: 22, SpO2: 94 % FIO2/O2 Device: O2 Flow Rate (L/min): 3 l/min, , O2 Device: Nasal cannula, FIO2 %: 50 % RT Orders: Q4 trach eval Protocol Scoring: Bronchodilator/Inhalation Therapy Frequency Bronchodialator - Clinical Indications: No clinical indications Breath Sounds: Any abnormal BS decreased Response: No change / no treatment Pulse: <100 Resp Rate: 18-25 SOB: None Total Score: 2 Comment:: Q4 Eval Airway Clearance Therapy Frequency Airway Clearance - Clinical Indications: Suctioning / Artificial airway Breath Sounds: Rhonchi / crackles Sputum: Small (tsp) / None Consistency: Thin / thick Cough Effort: Strong, productive Color: Yellow / green Total Score: 5 Comment: Q4 Sxn Eval Hyperinflation Therapy Frequency Hyperinflation - Clinical Indications: No clinical indications Breath Sounds: Other Surgery: No X-Ray / Atelectasis: No O2 Requirements: 2-4 L above baseline Mobility Status: Mobile / at baseline Total: 3 Comment: Q4 Eval Action/Events Respiratory events; Pt's trach remains capped, has NC in place. Attempted room air this morning while in room with Dr. Maza, but pt desatted to 87%. Placed back on 3L NC. Pt has a strong cough, and is able to cough secretions into his mouth and suction them out himself. Trach care done this morning. All emergency equipment at bedside. CHERIE SORTO, RT 04/18/19 * Shari Farfan, RT - 04/18/2019 0008 EDT Respiratory Progress Note Indications for Respiratory therapy: Trach Eval Data Vitals: Heart Rate: 92 BPM, Resp: 22, SpO2: 92 % FIO2/O2 Device: 6lnc, , O2 Device: Nasal cannula, RT Orders: #7 Bivona TTS, capped as tolerated Q4 Trach Eval Action/Events 0000 pt desating into the high 80s; RT suctioned and placed pt on 6lnc. Rt will follow all night 0520 Pt on 6 lnc and was doing a great job coughing and suctioning himself Plan Continue as ordered. Wean O2 as tolerated. SHARI FARFAN, RT 04/18/19 * Jennifer Adler - 04/17/2019 1550 EDT CM Note Met with Shirlene and his SO Britt. I have made a referral to patient financial advocates to address need for Medicare supplemental insurance and to Resource Associate to discuss SS disability with him. PT is recommending BETITO and pt is willing to be listed in [place] and [facility]. Will send documentation/inquiries to facilities when there is a more solid dc date. Jess Adler RN CCM [id number] * Jenelle Davison, JORGE - 04/17/2019 1443 EDT Referral received for Acute Rehab Evaluation. Full assessment to follow. Jenelle Barnett RN/BSN/CRRN [facility] Acute Inpatient Rehab Grocery Supervisor Pager # [phone] * Gabby Eldridge - 04/17/2019 1432 EDT RESOURCE ASSOCIATE ASSISTANCE 04/17/19 Referral received to assist patient with Social Security Disability benefits. Vehicle Modification Technician reached out to patient's significant other to coordinate a time we can all meet as she has questions. She will contact me when she has a chance to look at her calendar. Gabby Eldridge #[id number] * Viktoria Farr RN - 04/17/2019 1100 EDT Images from the original note were not included. 04/17 ?? 03/19: While on unit asked by bedside nurse to assess purple area on coccyx. ?? Pt arrived on Tuesday morning from [facility] with a pink blanchable area on his coccyx. Thismorning he has a deep tissue injury that must likely started at the OSH or during the ride here. Deep tissue injury forming on his coccyx measuring 2cm x 2.5cm, purple tissue with blanchable erythema on the surrounding skin. Mepilex border dressing in place. Suggest to place pt on a [facility] bed.? 03/29 -?coccyx deep tissue injury is worse then last assessment which is concerning. Area now a dark purple, almost black in color measuring 6cm x 3cm. No drainage noted on mepilex border dressing. Suggested to nursing that they offload pressure from coccyx at all times to allow area to continue evolving without worsening.? 10 - ??deep tissue injury continue to evolve. Center is now an unstageable pressure injury measuring 2cm x .8cm, some nonblanchable purple tissue remains on the left side. Mepilex border dressing and offload still suggested treatment plan. ?? 04/13 - pressure injury on coccyx is unstageable. Base filled with yellow slough in and area measuring 4.5cm x 1.3cm, surrounding area is blanchable erythema. Small amount of purulent drainage on mepilex border dressing. Suggested to bedside nurse to order Santyl to be applied to base daily. Current assessment: unstageable ulcer over coccyx is slightly improved. Yellow slough starting to debride with the use of the Santyl. Skin above the ulcer appears more fragile, atmospheric scientist in color, concern that this area is beginning to breakdown. Pt currently on a [facility] bed. Please offload pressure from coccyx at all times. ?? Recommend Dime size amount of Santyl to 2x2 dressing, place over yellow slough on coccyx wound. Cover with Mepilex??sacral??border. Change every 5-7 days or prn for saturation. Lift daily to assess area and place back down.? Offload pressure from coccyx at all times Turn and reposition pt q2hrs Float heels off from mattress?? Viktoria Farr, Pressure Ulcer Prevention Nurse * Madelyn Knowles, PT - 04/17/2019 1036 EDT Rehabilitation Therapy Acute Therapies [facility] Physical Therapy Encounter Note Date of Service: 04/17/2019 Subjective/Objective Subjective It feels good to walk. Objective Intervention completed today: Time: 1000 Total treatment time: 30 minutes. Timed code treatment minutes: 30 Vital signs: Supine- SPO2 94% on 4L NC Sitting SPO2 91% on 4L NC Titrated to 6L NC for activity Standing and walking- SPO2 >88% on 6L NC Following 5 min seated rest at 6L NC, SPO2 decreased to 4L NC and maintained SPO2 >92% at rest Therapeutic Activity: Patient supine in bed upon entering room. Supine>sit with min contact assist. Able to maintain midline sitting with close supervision. Sit>stand with min contact assist to RW. Static standing for 1 min with emphasis and paced breathing and upright posture. Patient ambulated 6 feet with min contact assist and RW. Heavy emphasis on pacing and deep breathing throughout. Significant use of UE's on RW. Poor quad control in terminal stance. Stand>sit in WC with mod Ax1 with cues for sequencing and to control descent. Sit>stand from WC to RW with mod Ax2. Stand step transfer WC to recliner with min contact assist- heavy cues for pacing and deep breathing. Stand>sit with min contact assist. Patient sitting in recliner with call grayson in hand. Patient/Family Education: Topic: Activity pacing/Energy conservation Assistive device/technique Balance Bed mobility Discharge planning Equipment use Gait Home program Positioning Precautions/protocol Role of therapy Safety Transfers Learner: patient Method: verbal and demonstration Barriers to Learning: none noted Outcome: requires assist and needs practice Team Communication: Consulted with RN before and after treatment with regards to patient status. Assessment/Plan Assessment Patient able to tolerate initiation of ambulation today. Generalized deconditioning and impaired gas exchange continue to be limiting factors, but patient is highly motivated to progress mobility. Anticipate patient will continue to make steady progress. Recommend AR to facilitate maximal functional outcome. Based on performance with therapy today, this patient is expected to be able to tolerate 3 hours of multi-disciplinary acute rehab therapy 5 days a week. Plan Continue per plan of care Recommended Discharge Destination: Acute rehabilitation Recommended Discharge Services: Physical therapy at rehabilitation facility Recommended Equipment Needs: To be determined by next care provider Other recommendations: No other consults recommended at this time Primary Therapist: Pager: [phone] Madelyn Knowles, PT 04/17/2019 10:36 * Manfred Carrillo, RT - 04/17/2019 0907 EDT Respiratory Consult/Progress Note Indications for Respiratory therapy: trach Data Vitals: Heart Rate: 81 BPM, Resp: 18, SpO2: 96 % FIO2/O2 Device: O2 Flow Rate (L/min): 4 l/min(found on 4 lpm NC), , O2 Device: Nasal cannula, RT Orders: 04/16/19 1020 TRACH STATUS [[id number]] CONTINUOUS ?Discontinue Comments: Cap trach continuously as tolerated. References: Adult Respiratory Consult Protocol Question Answer Comment Trach Status Trach change 03/28 Trach Tube (Brand) Bivona Size (I.D.) mm 7 Inner Cannula N/A Specify cuff status Deflate continuously Remove trach sutures in 5 days? N/A 04/16/19 1018 Resp Care Orders (24h ago through 24h from now) Start Ordered 04/16/19 1600 Respiratory Care Evaluation Only [[id number]] EVERY 4 HOURS ?Discontinue?Reschedule Comments: #7 Bivona, plugged References: Adult Respiratory Consult Protocol Order ID Start Status 04/18/19 0400 Scheduled 04/18/19 0800 Scheduled 04/16/19 1535 Unscheduled Nebulizer Treatment Intermittent [[id number]] EVERY 4 HOURS PRN ?Discontinue References: Adult Respiratory Consult Protocol 04/13/19 0833 Unscheduled Airway Clearance Therapy [[id number]] PRN ?Discontinue References: Adult Respiratory Consult Protocol 04/13/19 1545 Unscheduled Speaking/Swallowing Trach Valve Placement By RT [[id number]] PRN ?Discontinue References: Adult Respiratory Consult Protocol Question: Place valve for expiratory tracheal pressures (cm H2O) Answer: 5 or less 04/16/19 1018 Unscheduled Trach Collar Oxygen [[id number]] PRN ?Discontinue Comments: Keep patient on continuously as tolerated. References: Adult Respiratory Consult Protocol Question: Adjust FI02 to Maintain SpO2 greater than: Answer: 92% 04/16/19 1018 Inpatient Meds - Nasal and Inhaled Comment?Hide (From admission, onward) Last edited by on ??at Start Stop Status Route Frequency Ordered 04/17/19 0850 ipratropium-albuterol (DUONEB) 0.5 mg-3 mg(2.5 mg base)/3 mL nebulizer solution 3 mL ?Discontinue -- Verified NEBULIZATION EVERY 6 HOURS PRN 04/17/19 0850 04/13/19 1219 albuterol (ACCUNEB) nebulizer solution 2.5 mg ?Discontinue -- Verified NEBULIZATION EVERY 4 HOURS PRN 04/13/19 1219 Point of Care Orders - If performing test with device, click Complete after completing the test. ??If entering result into PRISM, follow link to Enter/Edit Results. Comment (168h ago through 168h from now) Last edited by on ??at Start Ordered Unscheduled POCT Blood Gas, G3 I-STAT PRN ?Discontinue Question: Type of Sample: Answer: ABG 03/20/192023 Protocol Scoring: Bronchodilator/Inhalation Therapy Frequency Bronchodialator - Clinical Indications: No clinical indications Breath Sounds: Any abnormal BS decreased Response: Mild response, increase subjective per ENDODONTICS DENTIST Pulse: <100 Resp Rate: 18-25 SOB: With exertion Total Score: 4 Comment:: Trach protocol Airway Clearance Therapy Frequency Airway Clearance - Clinical Indications: Suctioning / Artificial airway Breath Sounds: Rhonchi / crackles Sputum: Small (tsp) / None Consistency: Thin / thick Cough Effort: Strong, productive Color: Clear / white Total Score: 3 Comment: Q4 trach sxn eval Hyperinflation Therapy Frequency Hyperinflation - Clinical Indications: No clinical indications Breath Sounds: Other Surgery: No X-Ray / Atelectasis: No O2 Requirements: > 4 L above baseline Mobility Status: Mobile / at baseline Total: 4 Comment: Trach protocol Action/Events Respiratory events; 0900 eval done pt had strong cough felt no sxn needed Response/Results Weaning and Toleration of treatments; Continue to monitor RT Ramesh 04/17/19 * Igor Maza MD - 04/17/2019 0753 EDT Medicine Progress Note Service Date: 04/17/2019 Admit Date: 03/17/2019 9:03 Reason for Admission: 64 y.o. male transferred from the MICU with a chief complaint of Sepsis??secondary to??left lower PNA and MSSA bacteremia complicated by??cute hypoxic respiratory failure with ARDS secondary to pneumonia,??volume overload, and COPD 24 Hour Events: -Trach collar size downsized -Weaned to O2 delivery by NC at 5L - briefly desatted to 87 overnight. Stable in the low to mid 90ssince. NC was noted to not be in position this morning and was still in the low 90s. - Heart rate converted back to sinus rhythm after metoprolol - Diet advanced to dysphagia 3 w/thins Subjective/Objective Subjective Mr. Bryan states that he feels well today. His breathing feels OK, although still tight, with the transition to NC (which was not properly positioned to deliver O2 at the start of our conversation) and a smaller trach. He notes that speaking is more difficult since the decrease in trach size. He says that his appetite is OK but not great. He tried eating some turkey last night but just was not very hungry. He is now able to sit up and transition from his bed to his chair on his own although is still unable to walk to the bathroom without assistance. Has not had a BM in 3 days however does not feel constipated or have any concern. Objective Vital Signs Temp: [35.6 ??C (96.1 ??F)-36.9 ??C (98.4 ??F)] (), Heart Rate: [70 BPM-91 BPM] (), Resp: [18-32] (), BP: (111-147)/(69-88) (), SpO2: [87 %-99 %] () via NC at 5L Physical Exam GA: NAD, breathing comfortably on NC at 5L. Has trach collar with speaking box Heart: RRR, no MRG Lungs: improved inspiratory low pitched wheezes now R>L. Minimal inspiratory crackles in lower lung sanderson bilaterally Abd: soft, NTND : no park LE: no edema, symmetric in size Is PICC or central line present? no Medications Current Facility-Administered Medications: acetaminophen (TYLENOL) solution unit dose cup 995 mg oral Q8H PRN albuterol (ACCUNEB) nebulizer solution 2.5 mg nebulization Q4H PRN alteplase (CATHFLO ACTIVASE) injection 2 mg intercatheter PRN ascorbic acid (vitamin C) (VITAMIN C) tablet 250 mg per g tube DAILY cholecalciferol (Vitamin D3) tablet 1,000 Units oral DAILY clonazePAM (KLONOPIN) tablet 0.5 mg oral BID PRN collagenase (SANTYL) ointment topical DAILY dextrose 50 % solution 12.5-25 g intravenous PRN enoxaparin (LOVENOX) injection 40 mg subcutaneous DAILY ferrous sulfate EC tablet 324 mg oral DAILY (BREAKFAST) guaiFENesin (MUCINEX) SR tablet 600 mg oral BID impact peptide 1.5 0.09 gram- 1.5 kcal/mL per ng tube CONTINUOUS magnesium sulfate 2g in D5W 50 ml intravenous PRN melatonin tablet 5 mg oral QHS metoprolol (LOPRESSOR) tablet 12.5 mg oral BID Multivitamins with minerals + ferrous gluconate (CENTRUM) oral solution 15 mL feeding tube DAILY nicotine (NICODERM CQ) 7 mg/24 hr patch 1 Patch transdermal DAILY pantoprazole (PROTONIX) injection 40 mg intravenous BID papain-alpha amylase-cellulase (CLOG ZAPPER) 2-5 mL feeding tube PRN potassium chloride in water infusion 20 mEq intravenous PRN potassium phosphate 3 mMol/mL oral solution 15 mmol oral Daily PRN senna (SENOKOT) tablet 2 Tab oral QHS Or sennosides (SENOKOT) syrup 17.6 mg per ng tube QHS sodium chloride 0.9 % (flush) flush 10 mL intercatheter WEEKLY Wool Alcoh-Min Zbc-Yozkj-Yfbjo (EUCERIN) cream topical PRN zinc sulfate (ZINCATE) capsule 220 mg per g tube DAILY Labs 04/16/19 0502 Iron 15* (low) TIBC 188* (low) Ferritin 778* (high) CBC: Recent Labs 04/16/19 0502 WBC 9.82 HGB 7.6* HCT 24.5* MCV 92 PLT 269 Electrolytes: Recent Labs 04/16/19 0502 NA 139 K 4.0 CL 106 CO2 29 CREATININE 0.63* CALCIUM 8.3* CALCCA 9.7 MG 2.0 PHOS 3.8 LFTs/GI: No results for input(s): ALKPHOS, AST, ALT, GGT, TBIL, LIPASE in the last 72 hours. UA: No results for input(s): LABSPEC, PHUR, GLUCOSEU, BILIRUBINUR, KETONES, BLOODU, PROTEINUR in the last 72 hours. Micro 04/12 blood cultures still have NGTD Imaging No new imaging Assessment/Plan Assessment 64 y.o.male??with a history of cigarette smoking, not connected with medical care??transferred fromthe MICU where he was treated for sepsis 2/2 PNA and MSSA bacteremia complicated by??acute hypoxic respiratory failure with ARDS??s/p trach and 14 days abx.??He also suffered from??an??acute blood loss anemia due to diffuse stomach and duodenal ulcers.??Additionally, he has had paroxysmal a fib with RVR. His main issues now include weaning his oxygen requirements, increasing his strength. Plan #Acute hypoxic respiratory failure??with ARDS secondary to pneumonia,??volume overload, and COPD (empysema seen on CT).??Most recent CXR on 04/08 showed no changes. Transitioned from trach collar to NC and tolerated other than one desat overnight. Was in the low 90s this AM when NC were displaced and not even delivering O2. - Wean NC flow rate as tolerated - Restart duonebs q6hrs prn - Guaifenesin for secretions - Clonazepam BID PRN for anxiety - PT/OT following ?? #Acute blood loss normocytic anemia.2/2 upper GI bleed from diffuse stomach and duodenal ulcers, s/p EGD, multiple transfusions of PRBCs and one of platelets. Likely??multifactorial??2/2 to phlebotomy,??bone marrow suppression from critical illness, chronic anemia, and potential slow continued GI bleeding. Iron studies suggest mixed cause of anemia including iron deficiency and chronic disease - daily iron supplementation - Transfuse if HgB <7?? -??Monitor CBCs - PPI BID for 4 weeks through 04/19/2019 and then transition to daily #Paroxysmal atrial fibrillation: Patient without HEAVY EQUIPMENT MECHANIC diagnosis, has been paroxysmal throughout the hospitalization. Converted to sinus rhythm with beta blockade - Metoprolol 12.5 mg twice daily - no AC at present due to GI hemorrhage and low CHADS score ?? #Severe??protein calorie malnutrition??and Critical Care myopathy. His PO intake is slowly improving per his report however is still limited by low appetite and dissatisfaction with hospital food taste. - continue tube feeds only at night to encourage PO intake during the day -??tube feeds with dysphagia 3 diet + thins and mighty shakes - continue multivitamin, vitamin C, zinc -??nutrition consulted, appreciate recs - DIE ATTACHING MACHINE TENDER consulted, appreciate recs #Unstageable sacral pressure ulcer -Wound care following?? - Mepilex/dressing changes per wound care - air mattress with frequent dressing changes ?? VTE Prophylaxis Enoxaparin 40mg daily ?? Discharge Plan BETITO anticipated ?? Consults DIE ATTACHING MACHINE TENDER, PT, OT, nutrition Jaswinder Newman 04/17/2019 7:53 MS3 I was present with the medical student for the history, exam, and medical decision making documented. I have edited the medical student note as appropriate. Vick Gibson MD 04/17/2019 14:57 Attending attestation: I have seen and examined the patient and agree with findings and plans as outlined in the resident's note above. Cont PPI and BB, hope to get trach out in the next 1-2 days, nocturnalize tube feeds, advance diet as per DIE ATTACHING MACHINE TENDER and pursue BETITO Maza MD * Jess Lira, RT - 04/17/2019 0436 EDT Respiratory Progress Note Indications for Respiratory therapy: Trach Eval Data Vitals: Heart Rate: 78 BPM, Resp: 20, SpO2: 93 % FIO2/O2 Device: O2 Flow Rate (L/min): 5 l/min, , O2 Device: Nasal cannula, RT Orders: #7 Bivona TTS, capped as tolerated Q4 Trach Eval Action/Events Pt remained on 5L NC overnight with trach capped. Pt has good strong cough. Suctioned once at beginning of shift for small yellow white. Plan Continue as ordered. Wean O2 as tolerated. RT MIGEL 04/17/19 * Reta Al, RD - 04/16/2019 1500 EDT Nutrition reassessment: ?? Medical Summary: Diet advanced to dys 3 + thins Large wound on coccyx ?? Subjective: Pt asleep Current Nutrition Orders: Diet; dys 3 + thins TF: Nutren 1.5 at 45 + 30 cc prosource BID ?? Nutrition Focused Physical Findings: Edema: not noted Digestive Systems: Last BM x1 04/04 Skin: large decub coccyx ?? Anthropometrics: Height: 70 per pt Admission Weight: 70K Current Body Weight: 55.4 on 04/10 Current BMI 17.5 Weight Change: -14.6 kg ?? Pertinent Medications: Current Facility-Administered Medications: acetaminophen (TYLENOL) solution unit dose cup 995 mg oral Q8H PRN albuterol (ACCUNEB) nebulizer solution 2.5 mg nebulization Q4H PRN alteplase (CATHFLO ACTIVASE) injection 2 mg intercatheter PRN amino acids-protein hydrolysate (PRO SOURCE NOCARB) packet 30 mL oral BID ascorbic acid (vitamin C) (VITAMIN C) tablet 250 mg per g tube DAILY cholecalciferol (Vitamin D3) tablet 1,000 Units oral DAILY clonazePAM (KLONOPIN) tablet 0.5 mg oral BID PRN collagenase (SANTYL) ointment topical DAILY dextrose 50 % solution 12.5-25 g intravenous PRN enoxaparin (LOVENOX) injection 40 mg subcutaneous DAILY guaiFENesin (MUCINEX) SR tablet 600 mg oral BID magnesium sulfate 2g in D5W 50 ml intravenous PRN melatonin tablet 5 mg oral QHS metoprolol (LOPRESSOR) tablet 12.5 mg oral BID Multivitamins with minerals + ferrous gluconate (CENTRUM) oral solution 15 mL feeding tube DAILY nicotine (NICODERM CQ) 7 mg/24 hr patch 1 Patch transdermal DAILY nutren 1.5 liquid per ng tube CONTINUOUS pantoprazole (PROTONIX) injection 40 mg intravenous BID papain-alpha amylase-cellulase (CLOG ZAPPER) 2-5 mL feeding tube PRN potassium chloride in water infusion 20 mEq intravenous PRN potassium phosphate 3 mMol/mL oral solution 15 mmol oral Daily PRN senna (SENOKOT) tablet 2 Tab oral BID PRN Or sennosides (SENOKOT) syrup 17.6 mg per ng tube BID PRN sodium chloride 0.9 % (flush) flush 10 mL intercatheter WEEKLY Wool Alcoh-Min Zjk-Dxhym-Xpocx (EUCERIN) cream topical PRN zinc sulfate (ZINCATE) capsule 220 mg per g tube DAILY Pertinent Labs: Lytes, mg, phos:nl Iron saturation 10% ?? Estimated Nutrition Intake: 100% TF past 3 days Estimated needs on new wt of 55.5K: >1900 for anabolism (BEE x 1.5) 85-100 gm pro (1.5-1.8/kg) ?? Assessment: Wt continues down, need to monitor, current BMI low at 17.5. Passed DIE ATTACHING MACHINE TENDER eval and ate a good lunch. Will change TF to overnight and check calorie counts. Change TF to Impact at 75 cc/hr x 14 hr q HS which will provide 80% of anabolic calories and 1.8 gm pro/kg. Increase daily bowel meds especially if iron added as pt has only had 1 BM in the past 6 days. Po supplements added to trays to increase po masood/pro. Monitor closely Nutrition Risk Level: High (1) Medical Nutrition Therapy Plan and Recommendations: RD has order writing privileges and will modify the following orders: Change TF to Impact at 75 cc/hr x 14 hr q HS D/c prosource Order calorie count to start tomorrow Po supplements on trays Recommendations requiring MD orders: Increase daily bowel meds Monitor lytes, mg, phos at least QOD Monitor wt at least QOD Reta Al RD B6 Dietitian Pager: [phone] * Madelyn Knowles, PT - 04/16/2019 1883 EDT Rehabilitation Therapy Acute Therapies [facility] Physical Therapy Encounter Note Date of Service: 04/16/2019 Subjective/Objective Subjective I have been trying to do everything I can. Objective Intervention completed today: Time: 1300 Total treatment time: 25 minutes. Timed code treatment minutes: 25 Vital signs: SPO2 87-92% on 6L NC Therapeutic Activity: Patient supine in bed upon entering room. Supine>sit with min contact assist with use of bed features. Able to maintain midline sitting with supervision. Sit>stand from increased bed height with min contact assist x1 to RW. Marching in place x10 (emphasis on pacing and ROM) Stand step transfer bed>commode with min contact assist x2 and RW. Cues for pacing. Sit>stand from commode with mod Ax1 due to low surface height. Stand step transfer commode> bed with min contact assist and RW. Able to achieve good upright posture with cueing. Stand>sit>supine with min contact assist. Patient supine in bed with call grayson in hand. Patient/Family Education: Topic: Activity pacing/Energy conservation Assistive device/technique Balance Bed mobility Discharge planning Equipment use Exercise Gait Home program Positioning Precautions/protocol Role of therapy Safety Transfers Learner: patient Method: verbal and demonstration Barriers to Learning: none noted Outcome: requires assist and needs practice Team Communication: Consulted with RN before and after treatment with regards to patient status. Assessment/Plan Assessment Patient's overall tolerance to activity is continuing to progress, but is limited by respiratory status and generalized fatigue. Continue to recommend BETITO to facilitate maximal functional outcome. Plan Continue per plan of care Recommended Discharge Destination: Sub-acute rehabilitation Recommended Discharge Services: Physical therapy at rehabilitation facility Recommended Equipment Needs: To be determined by next care provider Other recommendations: No other consults recommended at this time Primary Therapist: Pager: [phone] Madelyn Knowles, PT 04/16/2019 14:43 * Shelly Simon, OT - 04/16/2019 1137 EDT The Rehabilitation Therapy Acute Therapies [facility] - Occupational Therapy Encounter Note Date of Service: 04/16/2019 Subjective/Objective SUBJECTIVE: I need to order breakfast OBJECTIVE: Time: 10:10 Total treatment time: 30 minutes. Timed code treatment minutes: 30 Interventions included: Self-Care/Home Management: Patient resting in bed at beginning of OT session, alert and motivated to participate in OT session. Patient asking to order breakfast first. Provided read off menu, provided therapist with his choices and order called in for patient. Functional mobility: Supine to sit with min contact assist, once seated edge of bed patient patient able to maintain in order participate in self care and therex tasks. Sit to supine near end of session with supervision, patient able roll side to side with supervision, with bed flat patient able to use LE's to boost self up in bed. At end of session head of bed >30 ?? with call grayson within reach. UE bathing: supervision, assist to wash back UE dressing: min contact assist for leti management and line management LE bathing: not performed, states aixa care completed earlier. LE dressing: moderate assist with pants Patient demonstrating proper rest breaks throughout session. ~ 3-4 taken of ~ 1 minute each. Provided patient with blue exercise sponge , completed gross grasp after instruction x 15 reps each 2# db exercise for partial shoulder flexion range each UE x 10 reps with a rest in between. Vital signs: Position Heart Rate (bpm) Blood Pressure (mmHG) Respiratory Rate (breaths/min) Oxygen Saturation SPO2 Liters of Oxygen Pre: seated 91 129/87 98% 6L NC Post: seated 97 - 93% 6L NC Patient/Family Education: Topic: Benefits of activity Compensatory strategies Role of OT Energy conservation Learner: patient Method: verbal and demonstration Barriers to Learning: none noted Outcome: practice needed Team Communication: With nursing before and after session Assessment/Plan ASSESSMENT: Shirlene continues to consistently participate in OT . Patient demonstrating progress in his ability to participate in edge of bed ADL sessions now, as well as begin to participate in seated therex. Patient remains well below his baseline and will require ongoing skilled therapy in this setting as well as a rehab setting. PLAN: Continue per plan of care Recommended Discharge Destination: Inpatient rehab Recommended Discharge Services: Occupational therapy at rehabilitation facility Recommended Discharge Equipment: To be determined by next care provider Pager: [phone] SHELLY SIMON OT, 04/16/2019, 11:37 * Rona Negron, [facility])-DIE ATTACHING MACHINE TENDER - 04/16/2019 1130 EDT Speech-Language Pathology Voice Prosthesis & Swallowing Consults DIE ATTACHING MACHINE TENDER Diagnosis: Aphonia, Loss of Voice: Medical Diagnosis: [id number] J18.9 Pneumonia, unspecified organism-J18.9[ICD-10-CM] Date of Service: 04/16/2019; 11:30 Date of Onset: 03/17/2019 Date of Referral: 04/09/19 Start Time: 1100 Total Therapy minutes: 20 minutes: (10 minutes tracheostomy; 10 minutes swallowing) SUBJECTIVE: It sounds different now. per pt regarding his voice OBJECTIVE: Current Status: Trach changed and downsized to bivona tts 7 with cap. He continues with continuous tube feeds. Cognitive Status: Patient was alert and cooperative. Respiratory Status: Tolerating Trach Collar. Had continued tolerance to speaking/swallowing valve, therefore trach downsized and capped. Voice Prosthesis Consult Suctioning needed: Pt coughed up into mouth and was able to self suction.Speaking Valve Placement: No Cap: yes, reducing machine operator in place Vocal quality with #7 trach and cap: breathy, with air escape from trach site due to smaller trach,larger stoma and need for healing of stoma site Clinical Swallow Consult Positioning: Sitting uptight in bed Oral Peripheral Exam: Face: Symmetric, ng tube in nares Lips: Symmetric Oral Mucosa: [place] and Moist Tongue: WNL Velum: Symmetrical soft palate elevation during phonation attempts Dentition: Adequate dentition Jaw Excursion: Adequate Consistencies Tested: was assessed with water from straw, applesauce and cracker. Methods of Delivery: Pt administered items himself Oral Phase Findings: Oral phase of swallowing is within normal limits. Patient presents with adequate oral containment, slow, but functional chewing and appropriate bolus transport for all consistencies tested. Pharyngeal Phase: Patient presents with pharyngeal phase deficits as suggested including intermittent throat clearing and cough with cracker likely due to crumbs. No s/s with small, single sips water. Esophageal Phase: has no overt issues. Patient/Family Education/Training: Topic: Patient/Family education and training was completed today including the results of today's exam/recommendations, anatomy and physiology of the swallowing mechanism, altered swallowing physiology withtracheostomy and purpose of trach cap. Also d/w pt ongoing need for hyperalimentation given need for skin/wound healing and recovery. Learner: patient Method of Education: Verbal Barriers to Learning/Education: none Patient: was able to verbalize understanding of information and needs further instruction and education Family: not present. ASSESSMENT/CLINICAL IMPRESSIONS: is a 64 y.o. male admitted with pneumonia and now with tracheostomy. A consult was completed today by Speech Language Pathology to assess tolerance of downsized trach and cap. The purpose of the consult is to promote normalized swallowing function and vocal communication. is currently able to tolerate downsized trach and cap, although vocal quality is now breathy, with air escape from trach site due to smaller trach, larger stoma and need for healing of stoma site. Toleranceof downsized trach and cap will assist with normalizing laryngeal and pharyngeal reflexes necessaryfor secretion management, swallow function and cough. Prognosis for tolerance of downsized trach and cap is judged to be good will goal of decannulation. A clinical swallow consult was completed today by Speech Language Pathology secondary to concerns for oropharyngeal dysphagia, and risk of laryngeal penetration/aspiration. continues to present with normal oral motor functioning. He presents improved pharyngeal stage dysphagia. Some issues with crackers due to crumbs. He has no overt s/s laryngeal penetration/aspiration and has a much stronger cough. Intermittent throat clearing still present. Etiology of dysphagia is patient's overall significantly deconditioned state, weakness. remains at moderate risk of aspiration at this time. Prognosis for ongoing improvement in swallow function is judged to be good, but will also take more time. Anticipate that as patient gets stronger overall by working with physical therapy his swallowing function and physiology will continue to improve. Functional Communication Measures ([place] [employer], 2002). The Functional Communication Measures (FCM???s) are a series of 7 point rating scales, ranging fromleast functional (Level 1) to most functional (Level 7). They have been developed by SUE to describe different aspects of patient???s functional communication and swallowing abilities over the course of DIE ATTACHING MACHINE TENDER intervention. Voice following Tracheostomy Level 4: The individual occasionally requires minimal cueing/assistance to produce simple sentences/messages during structured conversations with familiar communication partners and usually requires moderate cueing/assistance to produce simple sentences/messages with unfamiliar partners, although accuracy may vary. Spontaneous conversation is not consistent and the individual rarely produces complex sentences/messages that are understood by others. Participation in vocational, avocational and social activities requiring oral communication is limited some of the time and alternate means of communication may be needed. Swallowing Level 4: Swallowing is safe, but usually requires moderate cues to use compensatory strategies, and/or the individual has moderate diet restrictions and/or still requires tube feeding and/or oral supplements. GOALS: Patient will tolerate downsized trach and cap to vocally communicate wants and needs (ongoing) Patient will tolerate oral intake without signs or symptoms of aspiration (ongoing) PLAN: Patient will continue to benefit for further DIE ATTACHING MACHINE TENDER intervention in this setting to address dysphagia management and intervention needs. Tracheostomy Status: Continue with #7 trach and cap as tolerated. Swallowing: Please advance to dysphagia 3 diet. Send Might shakes and magic cup for supplements. He will benefit from higher calorie, nutrient dense foods given high nutrition needs. Please allow/advance to thin liquids. He needs to take small, single sips. He needs to be upright at 90 degrees and have cap on for all oral intake. It would be best for him to eat/drink in chair. If he has any increase upper airway congestion with oral intake, pt should clear throat and cough to clear. D/c oral intake with any intolerance. Continue tube feedings for primary nutrition and hydration needs. Will need to balance oral intake with tube feeds. As pt eats/drinks more suggest hold tube feeds. Impeccable oral care is essential in maintaining oral hygiene and minimizing harmful bacteria. Pt may need peg tube if unable to progress with oral intake for once he needs to go to rehab. DIE ATTACHING MACHINE TENDER to follow Discharge Plan: Pt will require inpatient rehabilitation stay. Pager # [phone] (Float DIE ATTACHING MACHINE TENDER Department) * Sheela Agudelo RT - 04/16/2019 0957 EDT Respiratory Continuing Care Note: Date of Service: 04/16/19 Trach days, date placed/ service, date of last change: 19 days, placed by ACS 03/28, changed 04/16 Indication for Trach: Airway clearance Type of Trach Hardware: bivona tts 7 The patient's trach was changed due to need for a downsize. Patient tolerated trach change well. Trach insertion without difficulty. Velcro trach ties were used to secure the trach tube. The occurrence of hemoptysis was none. The patient required no amount of deep suctioning. The stoma is pink and healthy. no adverse reactions to the procedure. Emergency equipment at the bedside including: Extra trach of the same size, obturator, resuscitation bag and mask remain at the bedside. Patient is tolerating capped trach well on 6 Liter canula. Recommendations/Plan: 1. Cap trach continuously as tolerated. 2. Continue prn airway clearance treatments as needed. * Jaswinder Newman - 04/16/2019 0827 EDT Medicine Progress Note Service Date: 04/16/2019 Admit Date: 03/17/2019 9:03 Reason for Admission: 64 y.o. male transferred from the MICU with a chief complaint of Sepsis??secondary to??left lower PNA and MSSA bacteremia complicated by??cute hypoxic respiratory failure with ARDS secondary to pneumonia,??volume overload, and COPD 24 Hour Events: This morning he was being weaned off of O2 by RT and potentially had his O2 displaced slightly from his trach. He sat up and only felt hot. He was noted to be short of breath, with O2 saturation in the 80s with an irregular heart rate. His trach collar oxygenation was resumed and treated him effectively. Telemetry was started to monitor his a fib. Subjective/Objective Subjective Mr. Bryan reports that he feels pretty good other than the little bit of excitement this morning. He says that his breathing feels similar and may be slowly improving. He reports that his cough and respiratory secretions are improving. He sat up by himself for the first time this morning as he feels that his strength is returning however that led to his excitement (a fib) and thus he has nottried again. He does not like the hospital food however is trying to eat and reports decent appetite. His last bm was 2 days ago. Review of Systems - GAUTHIER, -CP, -Abdominal Pain, - Nausea, - vomiting, -constipation, - LE pain, - LE swelling + congestion, + SOB, + coughing Objective Vital Signs Temp: [34.9 ??C (94.8 ??F)-37 ??C (98.6 ??F)] (), Heart Rate: [70 BPM-83 BPM] (), Resp: [18-24] (),BP: (118-141)/(71-89) (), SpO2: [94 %-99 %] () in 12L, FIO2 of 40 via trach collar Physical Exam General: NAD. Breathing comfortable on trach collar Cardiac: irregularly irregular. No mrg Pulm: inspiratory low pitched wheezing and crackles on bilateral anterior lung sanderson. Posterior sanderson not assessed Abd: soft, non-tender, non-distended. No organomegaly : no park in place Extremities: warm and well perfused. 2+ bilat pt, radial pulses. No LE edema Medications Current Facility-Administered Medications: acetaminophen (TYLENOL) solution unit dose cup 995 mg oral Q8H PRN albuterol (ACCUNEB) nebulizer solution 2.5 mg nebulization Q4H PRN alteplase (CATHFLO ACTIVASE) injection 2 mg intercatheter PRN amino acids-protein hydrolysate (PRO SOURCE NOCARB) packet 30 mL oral BID ascorbic acid (vitamin C) (VITAMIN C) tablet 250 mg per g tube DAILY cholecalciferol (Vitamin D3) tablet 1,000 Units oral DAILY clonazePAM (KLONOPIN) tablet 0.5 mg oral BID PRN collagenase (SANTYL) ointment topical DAILY dextrose 50 % solution 12.5-25 g intravenous PRN enoxaparin (LOVENOX) injection 40 mg subcutaneous DAILY guaiFENesin (MUCINEX) SR tablet 600 mg oral BID magnesium sulfate 2g in D5W 50 ml intravenous PRN melatonin tablet 5 mg oral QHS Multivitamins with minerals + ferrous gluconate (CENTRUM) oral solution 15 mL feeding tube DAILY nicotine (NICODERM CQ) 7 mg/24 hr patch 1 Patch transdermal DAILY nutren 1.5 liquid per ng tube CONTINUOUS pantoprazole (PROTONIX) injection 40 mg intravenous BID papain-alpha amylase-cellulase (CLOG ZAPPER) 2-5 mL feeding tube PRN potassium chloride in water infusion 20 mEq intravenous PRN potassium phosphate 3 mMol/mL oral solution 15 mmol oral Daily PRN senna (SENOKOT) tablet 2 Tab oral BID PRN Or sennosides (SENOKOT) syrup 17.6 mg per ng tube BID PRN sodium chloride 0.9 % (flush) flush 10 mL intercatheter WEEKLY Wool Alcoh-Min Lzt-Cjgip-Keuve (EUCERIN) cream topical PRN zinc sulfate (ZINCATE) capsule 220 mg per g tube DAILY Labs CBC: Recent Labs 04/14/1942804/16/19 0502 WBC 12.62* 9.82 HGB 7.7* 7.6* HCT 25.0* 24.5* MCV 92 92 PLT 337 269 Electrolytes: Recent Labs 04/14/1942804/16/19 0502 NA 138 139 K 4.1 4.0 CL 105 106 CO2 27 29 CREATININE 0.72 0.63* CALCIUM 8.4* 8.3* CALCCA 9.7 9.7 MG 2.0 2.0 PHOS 4.1 3.8 LFTs/GI: No results for input(s): ALKPHOS, AST, ALT, GGT, TBIL, LIPASE in the last 72 hours. UA: No results for input(s): LABSPEC, PHUR, GLUCOSEU, BILIRUBINUR, KETONES, BLOODU, PROTEINUR in the last 72 hours. Imaging No new imaging Micro Blood cultures from 04/08 are finalized with no growth Blood cultures from 04/12 have NGTD Tracheal aspirate culture from 04/13 showed mixed gram+ and gram- suggestive of saliva contamination Assessment/Plan Assessment 64 y.o.male with a history of cigarette smoking, not connected with medical care??transferred from the MICU where he was treated for sepsis 2/2 PNA and MSSA bacteremia complicated by??acute hypoxic respiratory failure with ARDS??s/p trach and 14 days abx.??He also suffered from??an??acute blood loss anemia due to diffuse stomach and duodenal ulcers. He was noted to be in paroxysmal a fib with RVRthis morning. His main issues now include weaning his oxygen requirements, increasing his strength and managing his a fib. Plan #Recurrent??Fevers??and temperatures <36 since 04/04. No clear source??with improved CXR on 04/13. Negative UA on 04/08, no growth on blood cultures from 04/08 (now final) and 04/12.??Respiratory secretions are improving and tracheal aspirate from 04/13 showed mixed gram positive and negatives suggestive contamination. Afebrile since 04/13, two low temps of 34.9 and 35.6 yesterday. - acetaminophen 650mg q6hr PRN -??monitor??blood cultures from 04/12: NGTD - defer further blood cultures for now unless clinical change - follow fever and WBC trend ?? #Acute hypoxic respiratory failure with ARDS secondary to pneumonia,??volume overload, and COPD (empysema seen on CT).??Most recent CXR on 04/08 showed no changes. He is increasingly tolerating oxygenation via trach collar with speaking valve (including tolerating balloon deflation) with occasional d esaturations that improve with suctioning. Frequency of suctioning has decreased and O2 desaturations have been improving. - Trach collar oxygenation as tolerated.??Wean??FiO2??from??40 as tolerated. Decrease trach caliberin effort to wean from trach ventilation - Guaifenesin for secretions - Clonazepam BID, PRN for anxiety - PT/OT following ?? #Paroxysmal Atrial fibrillation with RVR. A fib noted again this morning with hear rate upto 120s .Unclear if there is a new cause of a fib or continuation or previous paroxysmal patter given that he was in a fib with RVR when transferred from [facility] to the [facility] MICU. - rate control with metoprolol 12.5 big - [id number] score of 1 (1 point for age, none for PMH as he has no known PMH) suggests no need to consider anticoagulation at this time #Acute blood loss normocytic anemia. Previously with upper GI bleed from diffuse stomach and duodenal ulceration appreciated on upper EGD requiring 3 uRBCs and 1 uPLT??with appropriate response. Morerecently on 04/07 his hgb dropped to 6.6 treated wih??1U pRBC with appropriate response. Etiology of drop??was??unclear??per MICU as the??patient did??not show signs of active bleeding??and was??stable.??Presumed to be??multifactorial??2/2 to phlebotomy,??bone marrow suppression from critical illness, chronic anemia, and potential slow continued GI bleeding. HGB stable at 7.6 from 7.7 2 days ago. - Transfuse if HgB <7?? - Iron studies to assess for cause of persistent anemia -??Monitor CBCs - PPI BID for 4 weeks through 04/19/2019 and then transition to daily ?? #Severe??protein calorie malnutrition??and Critical Care myopathy. His PO intake is slowly improving per his report however is still limited by low appetite and dissatisfaction with hospital food taste. - continue tube feeds which are at goal, may need to consider PEG tube -??tube feeds with dysphagia 2 diet - consider only running tube feeds at night to encourage PO intake - continue multivitamin, vitamin C, zinc -??nutrition consulted, appreciate recs - DIE ATTACHING MACHINE TENDER consulted, appreciate recs ?? #Sacral deep tissue injury. Wound with white/yellow sloughing present.?? - Mepilex/dressing changes - air mattress with frequent dressing changes VTE Prophylaxis Enoxaparin 40mg daily Discharge Plan BETITO anticipated Consults DIE ATTACHING MACHINE TENDER, PT, OT, nutrition Jaswinder Newman 04/16/2019 8:27 MS3 * Igor Maza MD - 04/16/2019 0741 EDT Daily Progress Note Chief Complaint: Principle Problem: 24hr Events: -Episode of desaturation to mid 80s this AM after attempted oxygen wean/ supplemental O2 displacement from trach. Patient noted to be in atrial fibrillation, telemetry ordered. -Trach downsized Subjective: Patient examined while sitting in bed after episode of desaturation and diaphoresis. He denies chest pain, palpitations, any increased shortness of breath. He states he has not had a BM in 2 days, is tolerating soft foods, but states they do not taste good. He denies any nausea or episodes of emesis. He states he has been getting up out of bed into the chair. Vital Signs: Temp: [34.9 ??C (94.8 ??F)-37 ??C (98.6 ??F)] (), Pulse: [66-88] (), Resp: [18-24] (),BP: (118-141)/(67-89) (), SpO2: [94 %-99 %] () on trach collar with speaking box and 50% FiO2 at 12L Physical Exam: GA: NAD, breathing comfortably on trach collar with speaking box and 50% FiO2 at 12L Heart: RRR, no MRG Lungs: diffuse bilateral inspiratory crackle and low pitched wheezes Abd: soft, NTND : no park LE: no edema, symmetric in size Neuro: A&O x 3, PERRL, conjugate gaze, fluent speech, no dysarthria, no facial asymmetry, moving all limbs purposefully Results, Medications, Images, Procedures, Microbiology Reviewed: BMP, Ca, Mg, Phos: Recent Labs 04/14/19 0429 04/16/19 0502 NA 138 139 K 4.1 4.0 CL 105 106 CO2 27 29 CREATININE 0.72 0.63* CALCIUM 8.4* 8.3* CALCCA 9.7 9.7 MG 2.0 2.0 PHOS 4.1 3.8 LFTs/GI: No results for input(s): ALKPHOS, AST, ALT, GGT, TBIL, LIPASE in the last 72 hours. Incorrect component name entered: ALBU CBC: Recent Labs 04/14/19 0429 04/16/19 0502 WBC 12.62* 9.82 HGB 7.7* 7.6* HCT 25.0* 24.5* MCV 92 92 PLT 337 269 Assessment and Plan: 64 y.o.male with a history of tobacco use, no known medical history but not connected with medical care, admitted for sepsis 2/2 PNA and MSSA bacteremia complicated by ARDS??s/p tracheostomy and upper GI bleed due to diffuse stomach and duodenal ulcers. He is now hemodynamically stable, afebrile, no further evidence of bleed or infection. Current clinical goals are decreasing tube feeds and weaning patient from supplemental oxygen and eventually removing tracheostomy. #Acute hypoxic respiratory failure with ARDS secondary to pneumonia,??volume overload, and COPD (empysema seen on CT).??Most recent CXR on 04/08 showed no changes. He is increasingly tolerating oxygenation via trach collar with occasional desaturations that improve with suctioning. His speaking valve has needed to be periodically removed due to desaturations and increased secretions. Today, he failed a trial of decreased FiO2. - Trach collar oxygenation as tolerated.?? Continue to attempt to wean??FiO2 as tolerated - Guaifenesin for secretions - Clonazepam BID, PRN for anxiety - PT/OT following ?? #Acute blood loss anemia. 2/2 upper GI bleed from diffuse stomach and duodenal ulcers, s/p EGD, multiple transfusions of PRBCs and one of platelets. Likely??multifactorial??2/2 to phlebotomy,??bone marrow suppression from critical illness, chronic anemia, and potential slow continued GI bleeding. - Transfuse if HgB <7?? - Daily CBCs - PPI BID for 4 weeks through 04/19/2019 and then transition to daily #Paroxysmal atrial fibrillation: Patient without HEAVY EQUIPMENT MECHANIC diagnosis, has been paroxysmal throughout the hospitalization. -Start metoprolol 12.5 mg twice daily -no AC at present due to GI hemorrhage and low CHADS score ?? #Severe??protein calorie malnutrition??and Critical Care myopathy - continue tube feeds which are at goal --Per DIE ATTACHING MACHINE TENDER, can advance diet to dysphagia 3 with clear liquids. Add mighty shakes. - continue multivitamin, vitamin C, zinc -??nutrition consulted, appreciate recs - DIE ATTACHING MACHINE TENDER consulted, appreciate recs #Sacral deep tissue injury. Wound with white/yellow sloughing present.?? - Mepilex/dressing changes - air mattress with frequent dressing changes Housekeeping: DVT ppx: enoxaparin 40mg daily Diet: tube feeds with dysphagia 3 diet Consults: DIE ATTACHING MACHINE TENDER, OT, PT, Nutrition Discharge Plan: anticipate [facility] Gibson PGY1 Attending attestation: I have seen and examined the patient and agree with findings and plans as outlined in the resident's note above. Igor Maza MD * Jess Lira RT - 04/16/2019 0504 EDT Respiratory Progress Note Indications for Respiratory therapy: Trach Eval Data Vitals: Heart Rate: 78 BPM, Resp: 20, SpO2: 96 % FIO2/O2 Device: O2 Flow Rate (L/min): 12 l/min, , O2 Device: Trach collar, FIO2 %: 40 % RT Orders: #8 Shiley DIC, cuff down, speaking valve on Trach collar continuous Q4 eval Action/Events Pt remained on 40% trach collar overnight. Suctioned for small yellow white. Plan Continue as ordered. Wean O2 as tolerated. RT MIGEL 04/16/19 * Shelly Guzman MD - 04/15/2019 1111 EDT Daily Progress Note Chief Complaint: Principle Problem: 24hr Events: --transferred from the MICU to our medicine team Subjective: --secretions which had increased after speaking valve was placed have started to decrease --breathing is unchanged --difficulty sleeping last night --had pureed pancakes this morning and pudding last night, doesn't taste great but no difficulties with swallowing --last bowel movement two days ago Vital Signs: Temp: [35.6 ??C (96.1 ??F)-37.8 ??C (100 ??F)] (), Pulse: [64-80] (), Resp: [18-35] (), BP: (119-149)/(67-90) (), SpO2: [90 %-98 %] () on trach collar with speaking box and 50% FiO2 at 12L Physical Exam: GA: NAD, breathing comfortably on trach collar with speaking box and 50% FiO2 at 12L Heart: RRR, no MRG Lungs: diffuse bilateral inspiratory crackle and low pitched wheezes Abd: soft, NTND : no park LE: no edema, symmetric in size Neuro: A&O x 3, PERRL, conjugate gaze, fluent speech, no dysarthria, no facial asymmetry, moving all limbs purposefully Results, Medications, Images, Procedures, Microbiology Reviewed, Notable for no new results today, q48hr labs. Assessment and Plan: 64 y.o.male with a history of cigarette smoking, not connected with medical care??transferred from the MICU where he was treated for sepsis 2/2 PNA and MSSA bacteremia complicated by??acute hypoxic respiratory failure with ARDS??s/p trach and 14 days abx.??He also suffered from??an acute blood lossanemia due to diffuse stomach and duodenal ulcers. His main issues now include weaning his oxygen requirements and increasing his strength. #Recurrent Fevers and temperatures <36 since 04/04. No clear source with improved CXR on 04/13. Negative UA on 04/08 and NGTD on blood cultures from 04/08 and 04/12. Respiratory secretions are improving and tracheal aspirate from 04/13 showed mixed gram positive and negatives suggestive contamination - acetaminophen 650mg q6hr PRN - monitor blood cultures from 04/08 and 04/12: NGTD - defer further blood cultures for now unless clinical change - follow fever and WBC trend ?? #Acute hypoxic respiratory failure with ARDS secondary to pneumonia,??volume overload, and COPD (empysema seen on CT).??Most recent CXR on 04/08 showed no changes. He is increasingly tolerating oxygenation via trach collar with occasional desaturations that improve with suctioning. His speaking valve has needed to be periodically removed due to desaturations and increased secretions. - Trach collar oxygenation as tolerated.??Wean??FiO2??from??40 as tolerated - Guaifenesin for secretions - Clonazepam BID, PRN for anxiety - PT/OT following ?? #Acute blood loss normocytic anemia. Previously with upper GI bleed from diffuse stomach and duodenal ulceration appreciated on upper EGD requiring 3 uRBCs and 1 uPLT with appropriate response. More recently on 04/07 his hgb dropped to 6.6 treated wih??1U pRBC with appropriate response. Etiology of drop??was??unclear??per MICU as the??patient did??not show signs of active bleeding??and was??stable.??Presumed to be??multifactorial??2/2 to phlebotomy,??bone marrow suppression from critical illness, chronic anemia, and potential slow continued GI bleeding. - Transfuse if HgB <7?? - Daily CBCs - PPI BID for 4 weeks through 04/19/2019 and then transition to daily ?? #Severe??protein calorie malnutrition??and Critical Care myopathy - continue tube feeds which are at goal, may need to consider PEG tube - tube feeds with dysphagia 2 diet - continue multivitamin, vitamin C, zinc -??nutrition consulted, appreciate recs - DIE ATTACHING MACHINE TENDER consulted, appreciate recs #Sacral deep tissue injury. Wound with white/yellow sloughing present.?? - Mepilex/dressing changes - air mattress with frequent dressing changes DVT ppx: enoxaparin 40mg daily Diet: tube feeds with dysphagia 2 diet Consults: DIE ATTACHING MACHINE TENDER, OT, PT, Nutrition Discharge Plan: anticipate BETITO Dr. Katja Pierson MD PGY-2 ATTENDING ATTESTATION: Date of service: 04/15/2019 I interviewed and examined the patient; reviewed interval labs, events, and notes. I discussed the case with the medicine house staff team and agree with and addended (in blue) the findings and plan of care as documented in resident note above. Shelly Guzman MD Internal Medicine Hospitalist Attending * Lianne Mclaughlin, RT - 04/15/2019 1013 EDT Respiratory Progress Note Indications for Respiratory therapy: Trach eval Data Vitals: Heart Rate: 82 BPM, Resp: 20, SpO2: 94 % FIO2/O2 Device: O2 Device: Trach collar, FIO2 %: 50 % RT Orders: #8 Shiley DIC, cuff down, speaking valve on Trach collar continuous Q4 eval Action/Events Respiratory events Requiring suctioning with evals this morning. Suctioning trach for moderate to large amounts of thick/thin white/yellow secretions. Trach care and inner cannula changed this morning with 0800 round. Requiring 50% trach collar at this time, will try to wean back to 40% today. Trach collar O2 weaned to 40% this afternoon. Tolerating well at this time. Will continue to wean O2 as tolerated. All emergency equipment at bedside. Lianne Mclaughlin, RT 04/15/19 * Jessica Henriquez, RT - 04/15/2019 0527 EDT Respiratory Consult/Progress Note Indications for Respiratory therapy: Trach Data Vitals: Heart Rate: 77 BPM, Resp: 20, SpO2: 94 % FIO2/O2 Device: O2 Flow Rate (L/min): 12 l/min, , O2 Device: Trach collar, FIO2 %: 50 % RT Orders: #8 Shiley DIC Continuous trach collar Speaking valve as tolerated Q4 Respiratory eval PRN Airway clearance Protocol Scoring: Bronchodilator/Inhalation Therapy Frequency Bronchodialator - Clinical Indications: History of COPD Breath Sounds: Any abnormal BS decreased Response: Mild response, increase subjective per ENDODONTICS DENTIST Pulse: <100 Resp Rate: 18-25 SOB: With exertion Total Score: 4 Comment:: prn Airway Clearance Therapy Frequency Airway Clearance - Clinical Indications: Suctioning / Artificial airway Breath Sounds: Persistent rhonchi Sputum: Large (> tbs) Consistency: Thin / thick Cough Effort: Strong, productive Color: Yellow / green Total Score: 8 Comment: Q4 trach sxn eval Hyperinflation Therapy Frequency Hyperinflation - Clinical Indications: Decreased breath sounds with increased FiO2 Breath Sounds: Other Surgery: No X-Ray / Atelectasis: No O2 Requirements: > 4 L above baseline Mobility Status: Mobile / at baseline Total: 4 Comment: prn Action/Events Respiratory events; Pt had drifty saturations in the beginning of the night. Increased trach collar from 40% to 50% & saturations have held in the mid 90's since then. Suctioning large/copious amounts of thick/thin pale yellow secretions. Tolerates suctioning well. When asked if he needs a suction he always says no... He definitely needs it at least every 4 hours at this time. RT Kiara 04/15/19 * Sawyer Lopez RT - 04/14/2019 1847 EDT Respiratory Consult/Progress Note Indications for Respiratory therapy: tracheostomy Data Vitals: Heart Rate: 90 BPM, Resp: 28, SpO2: 98 % FIO2/O2 Device: O2 Flow Rate (L/min): 10 l/min, , O2 Device: Trach collar, FIO2 %: 40 % RT Orders: trach collar oxygen, speaking valve placement, q4 resp eval, prn duonebs, prn HFNC Protocol Scoring: Bronchodilator/Inhalation Therapy Frequency Bronchodialator - Clinical Indications: History of COPD Breath Sounds: Any abnormal BS decreased Response: Mild response, increase subjective per ENDODONTICS DENTIST Pulse: <100 Resp Rate: 18-25 SOB: With exertion Total Score: 4 Comment:: prn Airway Clearance Therapy Frequency Airway Clearance - Clinical Indications: Suctioning / Artificial airway Breath Sounds: Rhonchi / crackles Sputum: Moderate (tbs) Consistency: Thin / thick Cough Effort: Strong, productive Color: Yellow / green Total Score: 6 Comment: Q4 Trach / Suction eval Hyperinflation Therapy Frequency Hyperinflation - Clinical Indications: Decreased breath sounds with increased FiO2 Breath Sounds: Other Surgery: No X-Ray / Atelectasis: No O2 Requirements: > 4 L above baseline Mobility Status: Mobile / at baseline Total: 4 Comment: prn Action/Events Respiratory events; Pt with pmhx COPD here from [facility] 03/17 with septic shock and ARDS secondary to pneumonia. He was transferred from MICU to floors today ~ 1700. He requires q2 suctioning. He will deny he needs to be suctioned up to the point where he starts to desat and runs into trouble. He has a moderate amt thick brown secretions at this time. He continues on 40% trach collar with speaking valve placed. Considerremoving speaking valve if secretions worsen. Response/Results Weaning and Toleration of treatments; Cont resp therapy as ordered RT Joelle 04/14/19 * Leilani Varma RN - 04/14/2019 1539 EDT Trans to [id number] * Dorinda Smith RT - 04/14/2019 1244 EDT Respiratory Consult/Progress Note Indications for Respiratory therapy: Trach Data Vitals: Heart Rate: 118 BPM, Resp: (!) 35, SpO2: 92 % FIO2/O2 Device: O2 Flow Rate (L/min): 12 l/min, , O2 Device: Trach collar, FIO2 %: 40 % RT Orders: #8 Shiley DIC Continuous trach collar Speaking valve as tolerated Q4 Respiratory eval PRN Airway clearance Protocol Scoring: Bronchodilator/Inhalation Therapy Frequency Bronchodialator - Clinical Indications: History of COPD Breath Sounds: Any abnormal BS decreased Response: No change / no treatment Pulse: <100 Resp Rate: 18-25 SOB: With exertion Total Score: 3 Comment:: prn Airway Clearance Therapy Frequency Airway Clearance - Clinical Indications: Suctioning / Artificial airway Breath Sounds: Clear / diminished Sputum: Small (tsp) / None Consistency: Thin / thick Cough Effort: Strong, productive Color: Clear / white Total Score: 2 Comment: Q4 Trach / Suction eval Hyperinflation Therapy Frequency Hyperinflation - Clinical Indications: Decreased breath sounds with increased FiO2 Breath Sounds: Other Surgery: No X-Ray / Atelectasis: No O2 Requirements: > 4 L above baseline Mobility Status: In chair Total: 6 Comment: just changed to trach collar Action/Events Respiratory events; Shirlene remains on 40% trach collar with cuff deflated and speaking valve on. Suctioned for moderateamounts of white sputum. Pt has a strong cough and is able to cough secretions up to his trach. Continue to have difficulty obtaining a good pleth for Sp02, have tried many different locations. When a good pleth is achieved Sp02 is typically in low 90's on 40% trach collar. RT Juan 04/14/19 * Leticia Galdamez MD - 04/14/2019 0650 EDT Critical Care Progress Note Service Date: 04/14/2019 Admit Date: 03/17/2019 9:03 Reason for Admission to ICU: Mr. Bryan is a??64 y.o.??male??with a pmhx significant for COPD and tobacco use who was transferred??to [facility] mICU from??[facility] 03/17/19 with??septic shock and??ARDs??secondary to presumed pneumonia. Critical and life-threatening events over the past 24 hours: -spike in temperature overnight x1 (Tmax: 38.0) -started on a dysphagia II diet (pureed foods), tolerating? -UO: 1L, I/O +0.4 (04/13/2019), net even since admission Subjective/Objective Subjective Feeling good today. Denies fevers or chills. Feels breathing has improved. Happy to go the floor. He does not have an appetite but trying to eat pureed foods. Review of Systems A ten point review of systems was performed. Pertinent positives are listed above all others are negative Objective temperature 35.8 ??C (96.4 ??F), Blood pressure 128-136/70-80, pulse 76-105, SpO2 96-97 % on TC oxygen FiO2 40. Physical Exam Gen: AAOX4, Fatigued, No acute distress, conversing appropriately HEENT: NC/AT, Pupils equally round and reactive to light, no scleral icterus, MMM Neck: Supple with full range of motion, trachea midline Pulm: Rhonchi, much improved CV: , regular rate and rhythm, no murmurs, rubs, or gallops, S1 and S2 heard Abd: Soft, non-tender, non-distended, positive bowel sounds, no splenohepatomegaly : No park in place Neuro: No focal deficits, Moving all extremities Ext: No lower extremity edema, good distal pulses, normal cap refill, no clubbing or cyanosis noted Recent Labs 04/12/198 04/14/19428 WBC 8.73 12.62* HGB 8.1* 7.7* HCT 25.1* 25.0* PLT 433* 337 Recent Labs 04/12/1944704/14/19428 NA 137 138 K 4.2 4.1 CL 104 105 CO2 26 27 CREATININE 0.70 0.72 MG 2.0 2.0 PHOS 3.9 4.1 Infectious Disease: ?? Blood cultures: -04/08/2019: no growth -04/12/2019: pending ?? Sputum cultures: -04/12/2019: Many polys and moderate squamous epithelial cells, mixed GP and GN orgs on gram smear.Suggestive of contamination with saliva. Resubmit if clinically indicated. ?? AB.47/32/49/24 ?? CXR 04/13/2019 ?? Lungs: There are redemonstrated widespread patchy opacities which appear generally improved and less confluent than on the prior study. The upper lung zones remain relatively spared. The left hemidiaphragm remains obscured. ?? Pleura: No definite pleural fluid or pneumothorax, however neither can be excluded on this semiupright radiograph. ?? Impression: 1. ??Improving bilateral patchy airspace opacities. 2. ??Persistent obscuration of the left hemidiaphragm likely indicating a combination of pleural fluid and airspace disease. ?? Assessment/Plan Assessment Mr. Bryan is a??64 y.o.??male??with a pmhx significant for COPD and tobacco use who was transferred??to [facility] mICU from??[facility] 03/17/19 with??septic shock and??ARDs??secondary to presumed pneumonia. On arrival he was also found to have metabolic acidosis, AF with RVR, SIRISHA, and volume overload. Hospital course complicated by acute decompensation (03/20/19) with HD instability and hemorrhagic shock??secondary to upper GI bleed. Tracheostomy placed 03/28/19. He now remains HD stable.??He spiked??intermittent??low grade fevers (38.0- 38.4)??from 04/05-04/08. CXR 04/08 revealed??no acutechanges. Blood cultures from 04/08 pending??and urine cultures negative. Park removed 04/08.??He is participating in PT/OT??and motivated to improve functional status. He tolerated TC oxygen > 48h and met criteria to be transferred to the floor on 04/12. riding teacher of 04/13 patient developedincreasing supplemental O2 requirements refractory to aggressive suctioning. Rapid response called for desats into low 80's on 40-50% trach collar, prompting transfer back to mICU. Over past 24 hours tolerated TC oxygen with diet advanced to pureed foods Plan Pulmonary ?# Acute hypoxic respiratory failure: Originally presented on 03/17/2019 with acute hypoxic respiratory failure in the setting of pneumonia complicated by ARDS. ??Status post tracheostomy on 03/28/2019 with gradual ventilatory wean. He tolerated TC oxygen for 48 hours on 04/12/2019.??Now readmitted to mICU on 04/13/2019 with increasing supplemental oxygen requirements and desats. O2 sat improvedwhen patient came to mICU. Likely mucous plug necessitating return to ICU. -started QID cough assist 04/13 -TC O2 as tolerated -??Clonazepam BID PRN for anxiety - PT/OT??following -DIE ATTACHING MACHINE TENDER following: recommended dysphagia II diet -Considering??Transitioning??to uncuffed trach if able to tolerate??trach collar >48 hours with possible decannulation prior to hospital discharge.? #COPD: found this admission - d/c Duonebs q6h -albuterol q6h prn ?? Cardiac - No acute issues ?? Renal - No acute issues? GI Nutrition?? #Upper GI Bleed: resolved 03/20/19. - PPI BID:??Started 03/20/2019??per conversation with GI plan is to continue PPI BID for 4 weeks??(04/19/2019)??and then transition to qd. His endoscopy showed diffuse ulcerations in stomach and duodenum -??Nutritional supplement liquid -??Multivitamin -restarted metamucil??04/11/2019 ?? # Protein, calories Malnutrition: -started on dysphagia 2 diet yesterday ? Infectious Disease ??#Sepsis 2/2 left lower PNA and MSSA bacteremia:??Presumed community acquired.?? -resolved ?? #Temperature Spikes:??started on 04/05 with periodic spikes. Tmax overnight: 38.1. CXR 04/12 demonstrated no acute changes with improvement from CXR 04/08. ??WBC mildly elevated 04/14 compared to last blood draw.??Blood cultures from 04/08 no growth. Repeat cultures 04/12 are pending. Sputum cultures contaminated with saliva. Low suspicion that temperature spikes are related to infectious processhowever patient has been in the ICU for extended amount and is therefore at a increased risk of hospital acquired infection. - no antibiotics at this time -follow blood cultures - PICC??replaced 04/06 -continue to monitor? Hematologic?? #Acute blood loss anemia s/p??1U pRBC??04/07 for HgB 6.6.? Etiology of drop unclear??patient does??not show signs of active bleedin and remains clinically stable. Likely 2/2 to phlebotomy,??bone marrow suppression from critical illness, and chronic anemia. Slightly decreased from 8.1 (04/12) to 7.7 (04/14) - Transfuse if HgB <7??or signs of Hemodynamic instability?? - CBC q48h #Leukocytosis: increased WBC from 8.73 04/12 to 12.62 (04/14). Also mild spike in fever overnight however this has been ongoing -continue to monitor ?? Neurologic?? # Acute??Encephalopathy: Likely delirium. Now resolved. Alert, awake, and following commands. Olanzapine and ketamine d/c 04/03 - Melatonin qHS -??Encourage patient to sit up and out of bed in??recliner for improved mood when trach collar trials resume -??Continue PT -??Clonazepam BID PRN ?? Endocrine?? -??POC glucose d/c 04/04 as not requiring supplemental insulin in >48h -no active issues ?? Skin #Sacral Mepilex in place over sacral deep tissue injury. Wound with white/yellow sloughing present.Improved -??Closely followed by wound care they recommend Santyl for debrdement ?? #Dry skin -Eucerin cream ordered, PRN ? Lines - PICC -NG tube ?? Prophylaxis - GI -??PPI - DVT -??Enoxparin ?? Communication Code Status:??Limitation of Treatment. ?? Clinical Condition: gaurded Critical Care Daily Checklist: Completed Dorinda Parada 04/14/2019 6:50 Attestation: I saw and examined the patient independently and reviewed the data 04/14/2019. I agreewith the findings and plan of care documented in the resident's/fellow's note. Leticia Galdamez MD 04/14/2019 18:25 * Kayce Lozada RT - 04/14/2019 0604 EDT Respiratory Progress Note Indications for Respiratory therapy: trach Data Vitals: Heart Rate: 81 BPM, Resp: 18, SpO2: 97 % FIO2/O2 Device: O2 Flow Rate (L/min): 12 l/min, , O2 Device: Trach collar, FIO2 %: 40 % RT Orders: Trach Status: # 8 Shiley (w/ inner cannula) HFNC - continuous Q4 trach suction eval Action/Events Respiratory events; 2000: cough assist done. Suctioning large amounts of brown/ white secretions from trach. Tolerated well. 0000: No respiratory intervention indicated at this time 0400: Pt suctioned for large amount of thick white secretions. Pt expressed that he did not quite understand his tracheostomy and what it does. Observed pt many times holding trach mask up to his mouth. Explained to pt what his trach is, why he has it and how it works. Pt stated that the explanation did help. RT Stacie 04/14/19 * Rona Negron, CCC-DIE ATTACHING MACHINE TENDER - 04/13/2019 1353 EDT Speech-Language Pathology Voice Prosthesis & Swallowing Consults DIE ATTACHING MACHINE TENDER Diagnosis: Aphonia, Loss of Voice: Medical Diagnosis: [id number] J18.9 Pneumonia, unspecified organism-J18.9[ICD-10-CM] Date of Service: 04/13/2019; 13:53 Date of Onset: 03/17/2019 Date of Referral: 04/09/19 Start Time: 1315 Total Therapy minutes: 20 minute(s) (10 minutes speaking valve; 10 minutes swallowing) SUBJECTIVE: I am doing better with coughing into my mouth. Per pt OBJECTIVE: Current Status: Was transferred to B4, but then back to M4 due to w/ acute desaturation event and hypoxia. This happened during night time hours--speaking /swallowing valve not in place. He continueson trach collar with cuff deflated with speaking/swallowing valve in place. He continues with continuous tube feeds. Cognitive Status: Patient was alert and cooperative. Respiratory Status: Tolerating Trach Collar. Has had increased tolerance to speaking/swallowing valve. Voice Prosthesis Consult Suctioning needed: Pt coughed up into mouth and was able to self suction.Speaking Valve Placement: Yes: Passy-Barb Valve (PMV) Patient response to valve placement: No overt desat and no overt congestion now able to cough up into mouth Vocal quality with valve placement: Clear, loud, much improved Clinical Swallow Evaluation Positioning: Sitting uptight in bed Oral Peripheral Exam: Face: Symmetric, ng tube in nares Lips: Symmetric Oral Mucosa: [place] and Moist Tongue: WNL Velum: Symmetrical soft palate elevation during phonation attempts Dentition: Adequate dentition Jaw Excursion: Adequate Consistencies Tested: was assessed with ice chips and jello Methods of Delivery: Pt administered himself with spoon Oral Phase Findings: Oral phase of swallowing is within normal limits. Patient presents with adequate oral containment, functional chewing and appropriate bolus transport for all consistencies tested. Pharyngeal Phase: Patient presents with pharyngeal phase deficits as suggested including intermittent throat clearing. Much stronger cough. Esophageal Phase: has no overt issues. Patient/Family Education/Training: Topic: Patient/Family education and training was completed today including the results of today's exam/recommendations, anatomy and physiology of the swallowing mechanism, altered swallowing physiology withtracheostomy and purpose of speaking valve/trach cap. Learner: patient Method of Education: Verbal Barriers to Learning/Education: none Patient: was able to verbalize understanding of information and needs further instruction and education Family: not present. ASSESSMENT/CLINICAL IMPRESSIONS: is a 64 y.o. male admitted with pneumonia and now with tracheostomy. A voice prosthesis consult was completed today by Speech Language Pathology to assess tolerance of cuff deflation and one way valve. The purpose of the consult is to promote normalized swallowing function and vocal communication. is currently able to tolerate cuff deflation and tolerate speaking valve placement at this time. Tolerance of cuff deflation and speaking valve placement will assist with normalizing laryngeal and pharyngeal reflexes necessary for secretion management, swallow function and cough.Prognosis for tolerance of the speaking swallowing valve is judged to be good. A clinical swallow consult was completed today by Speech Language Pathology secondary to concerns for oropharyngeal dysphagia, and risk of laryngeal penetration/aspiration. currently presents with normal oral motor functioning. He presents improved pharyngeal stage dysphagia. He has no overt s/s laryngeal penetration/aspiration and has a much stronger cough. Intermittent throat clearingstill present. Etiology of dysphagia is patient's overall significantly deconditioned state, weakness and respiratory insufficiency causing weak cough. remains at moderate to high risk of aspiration at this time. Prognosis for improvement in swallow function is judged to be good, but willalso take more time. Anticipate that as patient gets stronger overall by working with physical therapy his swallowing function and physiology will also improve. Functional Communication Measures ([place] [employer], 2002). The Functional Communication Measures (FCM???s) are a series of 7 point rating scales, ranging fromleast functional (Level 1) to most functional (Level 7). They have been developed by SUE to describe different aspects of patient???s functional communication and swallowing abilities over the course of DIE ATTACHING MACHINE TENDER intervention. Voice following Tracheostomy Level 4: The individual occasionally requires minimal cueing/assistance to produce simple sentences/messages during structured conversations with familiar communication partners and usually requires moderate cueing/assistance to produce simple sentences/messages with unfamiliar partners, although accuracy may vary. Spontaneous conversation is not consistent and the individual rarely produces complex sentences/messages that are understood by others. Participation in vocational, avocational and social activities requiring oral communication is limited some of the time and alternate means of communication may be needed. Swallowing Level 4: Swallowing is safe, but usually requires moderate cues to use compensatory strategies, and/or the individual has moderate diet restrictions and/or still requires tube feeding and/or oral supplements. GOALS: Patient will tolerate speaking valve to vocally communicate wants and needs (ongoing) Patient will tolerate ice chips without signs or symptoms of aspiration (ongoing) PLAN: Patient will continue to benefit for further DIE ATTACHING MACHINE TENDER intervention in this setting to address dysphagia management and intervention needs. Tracheostomy Status: Continue use of speaking valve as tolerated during day hours. Remove with any intolerance. Please continue patient on humidified trach collar with cuff deflated. Swallowing: Please allow ice chips as tolerated. Please allow dysphagia 2 (puree) items for pleasure as tolerated. No po liquids. He needs to be upright at 90 degrees and have speaking valve on for all oral intake. If he has any increase upper airway congestion with oral intake, pt should clear throat and cough to clear. D/c oral intake with any intolerance. Continue tube feedings for primary nutrition and hydration needs. Impeccable oral care is essential in maintaining oral hygiene and minimizing harmful bacteria. Pt may need peg tube if unable to progress with oral intake for once he needs to go to rehab. DIE ATTACHING MACHINE TENDER follow-up: DIE ATTACHING MACHINE TENDER to follow-up Discharge Plan: Out of ICU. Then, pt will require inpatient rehabilitation stay. P[facility] # [phone] [facility]) Electronically signed by Rona Negron [facility]DIE ATTACHING MACHINE TENDER at 04/13/2019 14:13 EDT Electronically signed by Rona Negron [facility]DIE ATTACHING MACHINE TENDER at 04/13/2019 14:19 EDT * Eliel Oswald, PT - 04/13/2019 1325 EDT Rehabilitation Therapies [facility] Physical TherapyContact Note Date of Service: 04/13/2019 Attempted to see patient today but patient felt too fatigued after difficult night. Will follow up early next week. [id number] Eliel Oswald, PT 04/13/2019 13:25 * Florecita Khan, RT - 04/13/2019 1156 EDT Images from the original note were not included. Respiratory Consult/Progress Note Indications for Respiratory therapy: Trach, secretion management Data Vitals: Heart Rate: 77 BPM, Resp: 22, SpO2: 92 % FIO2/O2 Device: O2 Flow Rate (L/min): 10 l/min, O2 Device: Trach collar, FIO2 %: 40 % RT Orders: Continuous HFNC Continuous PMV Continuous # 8 Shiley QID cough assist Q4 respiratory evaluation PRN IPV PRN trach collar oxygen PRN duoneb Protocol Scoring: Bronchodilator/Inhalation Therapy Frequency Bronchodialator - Clinical Indications: History of COPD Breath Sounds: Any abnormal BS decreased Response: No change / no treatment Pulse: <100 Resp Rate: 18-25 SOB: With exertion Total Score: 3 Comment:: prn Airway Clearance Therapy Frequency Airway Clearance - Clinical Indications: Suctioning / Artificial airway Breath Sounds: Rhonchi / crackles Sputum: Moderate (tbs) Consistency: Thick Cough Effort: Strong, productive Color: Yellow / green Total Score: 7 Comment: q4 trach eval, cough assist Hyperinflation Therapy Frequency Hyperinflation - Clinical Indications: Decreased breath sounds with increased FiO2 Breath Sounds: Other Surgery: No X-Ray / Atelectasis: No O2 Requirements: > 4 L above baseline Mobility Status: In bed Total: 7 Comment: just changed to trach collar Action/Events 11:15 patient placed on 40% trach collar with minimal WOB. He has intermittent desaturations and may need to go back on HFTC. Speaking valve placed and adapter on HFNC in case he needs to go back on it today. Cough assist performed and suctioned for a moderate amount of thick, yellow secretions. Patient has a strong, voice and mostly manages his own secretions. All emergency equipment is in the room. 12:15 patient suctioned again for a large amount of thick/thin, white secretions. PMV placed again.Sats in the mid 90's. 15:40 patient has a strong productive cough. He has been suctioning his mouth with the yankauer. Hehas a slight amount of crackles but doesn't feel like he needs suctioning. Response/Results Continue cough assist, support oxygen as needed. FLORECITA KHAN RT 04/13/19 * Shelly Simon, OT - 04/13/2019 1118 EDT Rehabilitation Therapies Acute [facility] Occupational Therapy Contact Note Date of Service: 04/13/2019 Patient not seen this am due to patient sound asleep, per discussion with nursing patient is exhausted. Patient with transfer back to [facility] overnight. OT will follow-up on 04/16/19. SHELLY SIMON OT, 04/13/2019, 11:18 * Viktoria Farr RN - 04/13/2019 1100 EDT Images from the original note were not included. 04/13 ?? 03/19: While on unit asked by bedside nurse to assess purple area on coccyx. ?? Pt arrived on Tuesday morning from [facility] with a pink blanchable area on his coccyx. Thismorning he has a deep tissue injury that must likely started at the OSH or during the ride here. Deep tissue injury forming on his coccyx measuring 2cm x 2.5cm, purple tissue with blanchable erythema on the surrounding skin. Mepilex border dressing in place. Suggest to place pt on a [facility] bed.? 03/29 - coccyx deep tissue injury is worse then last assessment which is concerning. Area now a darkpurple, almost black in color measuring 6cm x 3cm. No drainage noted on mepilex border dressing. Suggested to nursing that they offload pressure from coccyx at all times to allow area to continue evolving without worsening.? 04/04 - deep tissue injury continue to evolve. Center is now an unstageable pressure injury measuring 2cm x .8cm, some nonblanchable purple tissue remains on the left side. Mepilex border dressing andoffload still suggested treatment plan. Current assessment: pressure injury on coccyx is unstageable. Base filled with yellow slough in andarea measuring 4.5cm x 1.3cm, surrounding area is blanchable erythema. Small amount of purulent drainage on mepilex border dressing. Suggested to bedside nurse to order Santyl to be applied to base daily. ?? Recommend Dime size amount of Santyl to 2x2 dressing, place over yellow slough on coccyx wound. Cover with Mepilex??sacral??border. Change every 5-7 days or prn for saturation. Lift daily to assess area and place back down.? Offload pressure from coccyx at all times Turn and reposition pt q2hrs Float heels off from mattress?? Viktoria Farr, Pressure Ulcer Prevention Nurse * Bryanna Mixon MD, MD - 04/13/2019 0952 EDT WEB PROJECT MANAGER Note S: Called to the bedside at 0217 04/13/2019 for hypoxia. Patient w/ acute desaturation event on 40%FiO2 w/o significant improvement w/ nebs and deep suctioning per RT. Patient denied SOB, chest pain/tightness. STAT ABG showed significant hypoxemia. O: BP 131/75 (BP Cuff Location: Right arm) Pulse 68 Temp (!) 35.2 ??C (95.4 ??F) (Tympanic) Resp 18 Ht 181.6 cm (71.5) Wt 55.4 kg (122 lb 2.2 oz) SpO2 96% BMI 16.80 kg/m?? Gen: NAD Chest: CTAB CV: RRR, S1/S2 normal, no m/r/g Abd: soft, NT, ND, +BS Extr: no ROSIE Neuro: grossly intact strength and sensation Mental status: A+Ox3 PMH reviewed MAR reviewed Hospital course reviewed Data reviewed: WBC/Hgb/Hct/Plts: 8.73/8.1/25.1/433 (04/12 448) Na/K/Cl/CO2: 137/4.2/104/26 (04/12 448) BUN/Cr/glu/ALT/AST/amyl/lip: --/0.70/--/--/--/--/-- (04/12 448) Ref. Range 04/13/2019 02:00 O2 Saturation Latest Ref Range: 95 - 98 % 87 (L) pH, i-STAT Latest Ref Range: 7.35 - 7.45 7.47 (H) pCO2, i-STAT Latest Ref Range: 35 - 45 mmHg 32 (L) pO2, i-STAT Latest Ref Range: 80 - 105 mmHg 49 (L) TCO2, i-STAT Latest Ref Range: 23 - 27 mEq/L 24 Sample Type Unknown ARTERIAL Base Excess, i-STAT Unknown 0 A/P: 64 y.o.male with no known PMH and hospital admission for septic shock 2/2 pneumonia and MSSA bacteremia complicated by ARDS presenting as Rapid Response for acute on chronic hypoxic respiratory failure. Unable to maintain oxygen saturation on 50% trach collar despite aggressive treatments for secretions by RT. Unsafe to remain on the floor at that level of hypoxia and needs higher level of care. 1. Acute on chronic hypoxic respiratory failure - transfer to MICU - [facility] Jeyson Lim MD 04/13/2019 9:52 Attending Attestation I saw and examined the patient with the resident. I discussed the patient with Dr. Lim. I agree with and edited (in underline) the findings and plan of care as documented in the note above. Bryanna Mixon MD Internal Medicine Hospitalist 04/13/2019 20:48 * Michael Thomason MD, MD - 04/13/2019 0759 EDT Critical Care Progress Note Service Date: 04/13/2019 Admit Date: 03/17/2019 9:03 Reason for Admission to ICU: .Shirlene Bryan is a 64 y.o male with no past medical history??and current smoker??who presents from [facility] 03/17/2019 with??ARDS, and septic shock secondary to presumed pneumonia Critical and life-threatening events over the past 24 hours: -transferred back to ICU -continues to have mild spikes in temperature (Tmax=38.1) -UO 1L, I/O +0.4, net positive 0.1 L (10/10) since admission Subjective/Objective Subjective No pain. Very tired due to overnight events. Wants speaking valve replaced for communication. Review of Systems A ten point review of systems was performed. Pertinent positives are listed above, all others are negative Objective Temp 35.9-37.8, Blood pressure 107-124/66-78, pulse 68-103, 20-39 , SpO2 97-98 % on HFTC (FiO2: 40). Physical Exam Gen: , No acute distress, sleeping comfortably in bed HEENT: NC/AT, MMM Neck: tracheostomy in place Pulm: Clear to auscultation bilaterally, no rhonchi, rales or wheezes CV: regular rate and rhythm, no murmurs, rubs, or gallops, S1 and S2 heard : No park in place Neuro: Moving all extremities Ext: No lower extremity edema, good distal pulses, normal cap refill, no clubbing or cyanosis noted Recent Labs 04/10/19 04/12/19 0448 WBC 7.52 8.73 HGB 8.3 8.1* HCT 25.4 25.1* PLT 505 433* Recent Labs 04/1004/12/19 0448 NA 136 137 K 4.2 4.2 CL 105 104 CO2 25 26 CREATININE 0.73 0.70 MG 2.0 2.0 PHOS 3.8 3.9 Infectious Disease: Blood cultures: -04/08/2019: no growth -04/12/2019: pending Sputum cultures: -04/12/2019: Many polys and moderate squamous epithelial cells, mixed GP and GN orgs on gram smear.Suggestive of contamination with saliva. Resubmit if clinically indicated. AB.47/32/49/24 CXR 04/13/2019 Lungs: There are redemonstrated widespread patchy opacities which appear generally improved and less confluent than on the prior study. The upper lung zones remain relatively spared. The left hemidiaphragm remains obscured. ?? Pleura: No definite pleural fluid or pneumothorax, however neither can be excluded on this semiupright radiograph. ?? Impression: 1. ??Improving bilateral patchy airspace opacities. 2. ??Persistent obscuration of the left hemidiaphragm likely indicating a combination of pleural fluid and airspace disease. Assessment/Plan Assessment Mr. Bryan is a??64 y.o.??male??with a pmhx significant for COPD and tobacco use who was transferred??to [facility] mICU from??[facility] 03/17/19 with??septic shock and??ARDs??secondary to presumed pneumonia. On arrival he was also found to have metabolic acidosis, AF with RVR, SIRISHA, and volume overload. Hospital course complicated by acute decompensation (03/20/19) with HD instability and hemorrhagic shock??secondary to upper GI bleed. Tracheostomy placed 03/28/19. He now remains HD stable.??He spiked??intermittent??low grade fevers (38.0- 38.4)??from 04/05-04/08. CXR 04/08 revealed??no acutechanges. Blood cultures from 04/08 pending??and urine cultures negative. Park removed 04/08.??He is participating in PT/OT??and motivated to improve functional status. He tolerated TC oxygen > 48h and met criteria to be transferred to the floor on 04/12. Early this morning patient developed increasing supplemental O2 requirements refractory to aggressive suctioning. Rapid response called for desats into low 80's on 40-50% trach collar, prompting transfer back to mICU. Plan Pulmonary ?# Acute hypoxic respiratory failure: Originally presented on 03/17/2019 with acute hypoxic respiratory failure in the setting of pneumonia complicated by ARDS. Status post tracheostomy on 03/28/2019 with gradual ventilatory wean. He tolerated TC oxygen for 48 hours on 04/12/2019. Now readmitted to mICU on 04/13/2019 with increasing supplemental oxygen requirements and desats despite aggressive sunction ; differential includes fatigue with inability to manage sputum versus recurrent pneumonia given mild spikes in temperautre -started QID cough assist -Wean HFTC with possible return to trach collar oxygen later today -??Clonazepam BID PRN for anxiety - PT/OT??following -DIE ATTACHING MACHINE TENDER following: swallow study performed 04/11. High risk of aspiration. Per documentation by DIE ATTACHING MACHINE TENDER, dysphagia likely secondary to decondition state, weakness, and respiratory insuffiencey (weak cough).Not able to tolerate PO nutrition at this time -Considering Transitioning to uncuffed trach if able to tolerate trach collar >48 hours with possible decannulation prior to hospital discharge.? #COPD: found this admission - d/c Lev q6h -albuterol q6h prn Likely mucous plug necessitating return to ICU. Now weaned back to trach collar after some chest PT. Will add better pulmonary toilet to regimen with cough assist and albuterol BID. ?? Cardiac - No acute issues ?? Renal - No acute issues? GI Nutrition?? #Upper GI Bleed: resolved 03/20/19. - PPI BID: Started 03/20/2019 per conversation with GI plan is to continue PPI BID for 4 weeks (04/19/2019) and then transition to qd. His endoscopy showed diffuse ulcerations in stomach and duodenum -??Nutritional supplement liquid -??Multivitamin -??Diet NPO (see pulm plan above) -restarted metamucil 04/11/2019 -PEG discussed with patient. May need enteric access in order for disposition to rehab. ?? # Protein, calories Malnutrition: Tube feeds at goal. ? Infectious Disease ??#Sepsis 2/2 left lower PNA and MSSA bacteremia:??Presumed community acquired.?? -resolved ?? #Temperature Spikes: started on 04/05 with periodic spikes. Tmax overnight: 38.1. CXR 04/12 demonstrated no acute changes with improvement from CXR 04/08. ??WBC wnl.??Blood cultures from 04/08 no growth. Repeat cultures 04/12 are pending. Sputum cultures contaminated with saliva. Low suspicion thattemperature spikes are related to infectious process however patient has been in the ICU for extended amount and is therefore at a increased risk of hospital acquired infection. - no antibiotics at this time -follow blood cultures - PICC??replaced 04/06 -continue to monitor ?? Hematologic?? #Acute blood loss anemia s/p??1U pRBC??04/07 for HgB 6.6.? Etiology of drop unclear??patient does??not show signs of active bleedin and remains clinically stable. Likely 2/2 to phlebotomy,??bone marrow suppression from critical illness, and chronic anemia. Now stable at 8.1 - Transfuse if HgB <7??or signs of Hemodynamic instability?? - CBC daily ?? Neurologic?? # Acute??Encephalopathy: Likely delirium. Now resolved. Alert, awake, and following commands. Olanzapine and ketamine d/c 04/03 - Melatonin qHS -??Encourage patient to sit up and out of bed in??recliner for improved mood when trach collar trials resume -??Continue PT -??Clonazepam BID PRN ?? Endocrine?? -??POC glucose d/c 04/04 as not requiring supplemental insulin in >48h -no active issues ?? Skin #Sacral Mepilex in place over sacral deep tissue injury. Wound with white/yellow sloughing present.Improved -??Closely followed by wound care they recommend Santyl for debrdement ?? #Dry skin -Eucerin cream ordered, PRN ? Lines - PICC -NG tube ?? Prophylaxis - GI -??PPI - DVT -??Enoxparin ?? Communication Code Status:??Limitation of Treatment. ?? Clinical Condition: gaurded Dorinda Parada, MS4 Pager: [phone] 04/13/2019 12:06 Attending attestation statement: I saw and examined the patient with the resident and agree with the findings and plans as documented, and as amended in blue. Clinical Condition: Shirlene Bryan is a critically ill 64 y.o. male. Over the past 24 hours, therehas been a high probability of sudden, clinically significant or life threatening deterioration in the patient???s condition, which include the following diagnoses which I have managed: Active Problems: Atrial fibrillation with RVR (HCC-CMS) Acute respiratory failure with hypoxia (HCC-CMS) Septic shock (HCC-CMS) ARDS (adult respiratory distress syndrome) (HCC-CMS) SIRISHA (acute kidney injury) (HCC-CMS) Anemia Thrombocytopenia (HCC-CMS) Bacteremia Fever Encephalopathy Critical Care time was provided in the form of interventions to treat and prevent further life threatening deterioration of the patient???s condition including: Observation before/during/after ventilator weaning, Management of pain and sedation and Fluid and electrolyte management, and high complexity decision making regarding need for additional imaging studies and / or interventional radiology interventions and the need for critical procedures, such as: central line . My bedside involvement was required to monitor and direct the critical care that has been provided.Exclusive of procedures, my critical care time is 35 minutes. Michael Thomason MD MICU Attending 04/13/2019 * Dominga Bowen, RT - 04/13/2019 0620 EDT Respiratory Progress Note Indications for Respiratory therapy: trach Data Vitals: Heart Rate: 88 BPM, Resp: (!) 35, SpO2: 98 % FIO2/O2 Device: O2 Flow Rate (L/min): 55 l/min, , O2 Device: High flow nasal cannula, FIO2 %: 50 % RT Orders: Trach Status: # 8 Shiley (w/ inner cannula) HFNC - continuous Duoneb Q4 (new this am prior to rapid respond) Q4 trach suction eval Action/Events Respiratory events; Patient arrived as a transfer from [facility] as a rapid response call for desats into the low 80's on 40-50% trach collar. RT assigned to B4 provided multiple trach suctions (also with bag/suction) inner cannula change, duoneb treatment and increased trach collar oxygen with continued SPO2 in the 80's. ABG Patient to MICU for HFNC. On arrival patient with initial RR high 20's/low 30's with HR around 100.Patient settled once placed on HFNC of 55L/50%. Cuff inflated to promote better aeration. CXR - improved airspace opacities. Plan: Start QID cough assist Wean HFNC and possible return to trach collar later today. Response/Results Weaning and Toleration of treatments; RT [place] 04/13/19 * Eden Ley, RT - 04/13/2019 0308 EDT Respiratory Progress Note Indications for Respiratory therapy: Trach Data Vitals: Heart Rate: 103 BPM, Resp: 30, SpO2: 98 % FIO2/O2 Device: O2 Flow Rate (L/min): 55 l/min, , O2 Device: High flow nasal cannula, FIO2 %: 50 % 0043: At patients bedside for midnight treatment. Pt saturating 89-90% on 40% trach collar. Coarse breath sounds heard on auscultation. Pt suctioned for large amount of thick white secretions. Samplesent to lab. Pt saturations 83-86% following suctioning. Trach collar increased to 50%. Pt states that his breathing feels fine. Pt suctioned multiple times for small amount. Saturations continuing to be 86%. 3 different probes attempted but no change. Pt with history of COPD. PRN duoneb given withno change. MD Lim called to bedside. Pt bagged/lavaged suctioned for small amount. No change in Sp02. ABG and chest xray ordered. 0200: ABG done: Results 7.47/32/49/24 on 50% trach collar. Transport RT at bedside. Suctioned againfor small amount. Inner cannula changed. MD Lim called to bedside. 022: Rapid response call made. Decision made to transition to MICU for HFNC. 0245: Pt transferred to MICU bed 2 with Rapid response team. RT Karlene 04/13/19 * Shelly Dennis RN - 04/13/2019 0253 EDT Critical Access Treatment Support (CATS) Team Nursing Note (SBAR) Team Times: Call Type: WEB PROJECT MANAGER Call Time: 216 Call Date: 04/13/19 Call Originator: Nurse EMELY Arrival at Bedside: 219 Team Completion Time: 244 EMELY Completion Time: 244 Code Status: DNR Initial Vitals: BP: 137/78 Heart Rate: 107 BPM SpO2: 97 % Skin Color: [place] Neurological Assessment: Pupils: Pupils equal, round, reactive Altered Mental Status: No Cardiovascular Assessment: Chest Pain: No Respiratory Assessment: O2 Device: Trach collar O2 Flow Rate (L/min): 12 l/min Breath Sounds Bilateral: Clear GI/ Assessment: Patient Status: Disposition: Transferred Transferred to: MICU Team Members: EMELY (Name): Luis Fernando Johnson Amy Hospitalist (Name): Apurva LAW (Name): Sindy Call debriefed with: Nurse Additional Detail: Responded to WEB PROJECT MANAGER call for reported hypoxia. Upon arrival, pt was alert, supine, high fowlers. Per bedside RN, pt had de-satted on 40%FiO2, and ABG following showed hypoxia. O2 had been increased to 50% prior to arrival, and sats were then 91% via trach collar. Pt had Passy-Wheelwright valve on and denied SOB, pain, but stated that he felt he could be suctioned. LS rhochitic throughout. Trach suctioning performed, and pt was able to produce thick, yellow sputum from trach site. LS clear post-suctioning, O2 sats improved. Decision was made to transfer pt to MICU for resolution of hypoxia. Pt transferred without issue. Please call WEB PROJECT MANAGER nurse for any further questions or concerns. * Kathrine Dolan, RD - 04/12/2019 1526 EDT Nutrition Reassessment: ?? Medical Summary: Shirlene Bryan is a 64 y.o. male admitted on 03/17/2019 with a pmhx significant for COPD and tobacco use who was transferred??to [facility] mICU from??[facility] 03/17/19 with??septic shock and??ARDs??secondary to presumed pneumonia. On arrival he was also found to have metabolic acidosis, AF with RVR, SIRISHA, and volume overload. Hospital course complicated by acute decompensation (03/20/19) with HD instability and hemorrhagic shock??secondary to upper GI bleed. Tracheostomy placed 03/28/19. He now remains HD stable.??He spiked??intermittent??low grade fevers (38.0-38.4)??from 04/05-04/08. CXR 04/08 revealed??no acute changes. Blood cultures from 04/08 pending??and urine cultures negative. Park removed 04/08.??He is participating in PT/OT??and motivated to improve functional status. He is now speaking through [employer] valve and tolerating TC oxygen. ?? Subjective: I do feel stronger. The feeds seem good (referring to tube feed). reports usual weight 150 lbs and height at 5'10. Feels he was his usual weight up until time of admission. Current Nutrition Orders: Diet: NPO Tube Feed: Nutren 1.5 @ 42mL/hr continuous + 60 mL prosource/day Delegate Diet ordering to RD ?? Nutrition Focused Physical Findings: Cardiovascular-pulmonary:??Trach Collar during day, vent at rest Swallow Function:??impaired Dentition:??missing teeth Edema:??none Digestive Systems: Last BM??04/10; NGT in place with tube feed infusing clamped Skin:??stage 3 ulcer to coccyx; skin tear to right arm ?? Anthropometrics: Height: 177.8 cm (70 per patient) Admission Weight: 70 kg (154 lbs) Current Body Weight: 55.4 kg (122 lbs) 04/10, BMI 17.5 Usual Weight: 150 lbs Weight Change: -28 lbs over 1 month ?? Pertinent Medications: 1000 units VitD3, MVM, protonix 2x/day, 1 pk psyllium husk Pertinent Labs: 04/12: Calcium/renal wnl, Na 137, K+ 4.2, Mg 2.0, Phos 3.9, WBC wnl, Hgb 8.1, Hct 25.1 04/07: BG 126 03/18: ferritin 2,643 03/17: albumin 2.2, HgbAlc 6% Estimated Daily Nutrition Needs: 1,615 -1,750 kcal (MSJ REE x 1.2 - 1.3) 83 - 100 g Protein (1.5 - 1.8 g/kg) ?? Estimated Nutrition Intake: 80-100% tube feed infused 03/30-04/11 ?? Assessment: Severe weight loss of 18.6% over the last month likely attributed to loss of lean muscle mass associated with severe, acute illness and prolonged hospitalization. Current tube feed is being toleratedwell and providing 100% goal nutritional needs, however, recommend slight increase in caloric content of tube feed to provide an add'l 100 kcal/day to promote slow, steady weight gain now respiratorystatus has improved with stability on trach collar. In the absence of stool output greater than 24hrs, fiber modular is not indicated as it poses risk for constipation with lack of stool output. Recommend 10 day course of Vitamin C and Zn to promote wound healing. Nutrition Risk Level: Moderate (2) Medical Nutrition Therapy Plan and Recommendations: RD has order writing privileges and will modify the following orders: Enteral Nutrition - Continuous - Nutren 1.5 @ 45 mL/hr + 30 mL Prosource 2x/day - Goal TF would provide 1,740 calories, 103 g protein, and 766 mL water daily D/c psyllium Recommendations requiring MD orders: Vitamins and Minerals: - Order 500 mg Vitamin C, 220 mg ZnSO4 daily x 10 days for wound healing Adjust enteral free water as desired Monitor bowels closely Re-check Weight Tuesday, Tuesday, Fridays Kathrine Dolan RD, CD B4 Dietitian Pager: [phone] * Melba Perez - 04/12/2019 1319 EDT I met with patient this afternoon to check in and offer support. No needs voiced by patient for CM intervention at this time. CM will continue to follow and assist as needed. MI He * Oren Jade RT - 04/12/2019 0937 EDT Respiratory Progress Note Indications for Respiratory therapy: Tracheostomy Data Vitals: Heart Rate: 82 BPM, Resp: 20, SpO2: 93 % FIO2/O2 Device: O2 Flow Rate (L/min): 10 l/min, , O2 Device: Trach collar, FIO2 %: 40 % RT Orders: Continuous trach status - #8 Shiley DIC Continuous AC or CPAP/PS ventilation at rest VC-AC Settings are: 610 x 14 + 5 PRN airway clearance PRN trach collar - trials during the day, if using for extended periods of time, discuss with MD, per MD Coto 04/05 Action/Events Respiratory events; 09:30: 40% Trach / Collar check. Trach site clean dry, changed inner cannula. Airway Alert sign at head of bed. Patient tolerated well, good strong cough noted. 12:25: 40% Trach / Collar check, changed humidity, patient up in chair tolerating well. Response/Results Weaning and Toleration of treatments; Continue with orders RT Sushma 04/12/19 * Michael Thomason MD, - 04/12/2019 0641 EDT Critical Care Progress Note Service Date: 04/12/2019 Admit Date: 03/17/2019 9:03 Reason for Admission to ICU: Shirlene Bryan is a 64 y.o male with no past medical history??and current smoker??who presents from [facility] 03/17/2019 with ARDS, and septic shock secondary to presumed pneumonia ?? Critical and life-threatening events over the past 24 hours: -febrile to 38.5 c x1 yesterday afternoon - Now 48h on TC oxygen -UO 450, I/O: +1.3 (04/11/2019, net negative 4.3 L since 03/29/2019 not accurate as patient is incontinent of urine, Subjective/Objective Subjective No overnight complaints. No issues breathing. Denies fevers or chills. No abdominal pain, n/v. Doesn't know about BM. He is happy to be talking. He feels ready to move to a lower acuity setting. Endorses dry skin. Review of Systems A ten point review of systems was performed. Pertinent positives are listed above, all others are negative Objective Temp: 37.1-36.8, Blood pressure 117-125/61-68, HR: 72-74, resp. rate 18, SpO2 93-100 on TC oxygen FiO2 40 Physical Exam Gen: AAOX4, Fatigued, No acute distress, thin male, conversing appropriately HEENT: NC/AT, MMM Pulm: diffuse rhonchi, no wheezing CV: regular rate and rhythm, no murmurs, rubs, or gallops, S1 and S2 heard Abd: Soft, non-tender, non-distended, positive bowel sounds, no splenohepatomegaly : No park in place Neuro: No focal deficits, Moving all extremities Ext: No lower extremity edema, good distal pulses, normal cap refill, no clubbing or cyanosis noted Recent Labs 04/10/19 0404 04/12/19447 WBC 7.52 8.73 HGB 8.3* 8.1* HCT 25.4* 25.1* PLT 505* 433* Recent Labs 04/10/19 0404 04/12/19447 NA 136 137 K 4.2 4.2 CL 105 104 CO2 25 26 CREATININE 0.73 0.70 MG 2.0 2.0 PHOS 3.8 3.9 Infectious Disease Blood cultures 04/08: pending Urine cultures 04/08: negative Assessment/Plan Assessment Mr. Bryan is a??64 y.o.??male??with a pmhx significant for COPD and tobacco use who was transferred??to [facility] mICU from??[facility] 03/17/19 with??septic shock and??ARDs??secondary to presumed pneumonia. On arrival he was also found to have metabolic acidosis, AF with RVR, SIRISHA, and volume overload. Hospital course complicated by acute decompensation (03/20/19) with HD instability and hemorrhagic shock secondary to upper GI bleed. Tracheostomy placed 03/28/19. He now remains HD stable.??Hespiked??intermittent??low grade fevers (38.0-38.4) from 04/05-04/08. CXR 04/08 revealed no acute changes. Blood cultures from 04/08 pending and urine cultures negative. Park removed 04/08.??He is participating in PT/OT and motivated to improve functional status. He is now speaking through [employer] valve and tolerating TC oxygen. ?? Plan Pulmonary ?# Acute hypoxic respiratory failure with ARDS secondary to pneumonia,??volume overload, and COPD (empysema seen on CT).??Increased RR overnight w/o O2 desats.??Bicarb 22 (wnl) unlikely due to derangements in pH. CXR??on 04/08??shows no acute changes. His respiratory distress has improved over last couple of days since decreasing trach collar trial time with increased vent time. ??Respiratory distress likely secondary to aggressive TC trials in the setting of injured lungs and increased anxiety.??He has improved with VC-AC. Resumed trach collar trials 04/07 which are going well. He does have periods of O2 desats that improve with removing secretions. Tolerating cuff deflation. Speaking valve periodically removed due to desats and increased secretions. -Plan to transfer to floor today after 48h on trach collar oxygen -??TC oxygen as tolerated, FiO2: 40 -??Clonazepam BID PRN for anxiety - PT/OT??following -DIE ATTACHING MACHINE TENDER following: swallow study performed 04/11. High risk of aspiration. Per documentation by DIE ATTACHING MACHINE TENDER, dysphagia likely secondary to decondition state, weakness, and respiratory insuffiencey (weak cough).Not able to tolerate PO nutrition at this time -Considering Transitioning to uncuffed trach if able to tolerate trach collar >48 hours with possible decannulation prior to hospital discharge.? #COPD: found this admission - Duonebs q6h PRN ?? Cardiac - No acute issues ?? Renal - No acute issues? GI Nutrition?? #Upper GI Bleed: resolved 03/20/19. - PPI BID: Started 03/20/2019 per conversation with GI plan is to continue PPI BID for 4 weeks (04/19/2019) and then transition to qd. His endoscopy showed diffuse ulcerations in stomach and duodenum -??Nutritional supplement liquid -??Multivitamin -??Diet NPO (see pulm plan above) -restarted metamucil 04/11/2019 PEG discussed with patient. May need enteric access in order for disposition to rehab. Protein calory malnutrition Tube feeds at goal. ?? Infectious Disease ??#Sepsis 2/2 left lower PNA and MSSA bacteremia: Presumed community acquired.?? -resolved #Uptrending fever curve: started on 04/05 ??With periodic spikes 04/05-04/08. CXR 04/08 demonstrated no acute changes. ??WBC wnl. Blood cultures from 04/08 pending. Urine cultures negative (no activeissues). Jn in fever 04/11 (T=38.5) - Completed 14-day course antibiotics - PICC??replaced 04/06 -continue to monitor ?? Hematologic?? #Acute blood loss anemia s/p??1U pRBC??04/07 for HgB 6.6.? Etiology of drop unclear??patient does??not show signs of active bleedin and remains clinically stable. Likely 2/2 to phlebotomy,??bone marrow suppression from critical illness, and chronic anemia. Now stable at 8.1 - Transfuse if HgB <7??or signs of Hemodynamic instability?? - CBC daily ?? Neurologic?? # Acute??Encephalopathy: Likely delirium. Now resolved. Alert, awake, and following commands. Olanzapine and ketamine d/c 04/03 - Melatonin qHS -??Encourage patient to sit up and out of bed in??recliner for improved mood when trach collar trials resume -??Continue PT -??Clonazepam BID PRN ?? Endocrine?? -??POC glucose d/c 04/04 as not requiring supplemental insulin in >48h -no active issues ?? Skin #Sacral Mepilex in place over sacral deep tissue injury. Wound with white/yellow sloughing present.Improved -??Closely followed by nursing #Dry skin -Eucerin cream ordered, PRN ? Lines - PICC ?? Prophylaxis - GI -??PPI - DVT -??Enoxparin ?? Communication Code Status:??Limitation of Treatment. ?? Clinical Condition: critical ?? Rounding checklist completed Critical Care Daily Checklist: Completed Dorinda Parada, MS4 Pager: [phone] 04/12/2019 6:42 Attending attestation statement: I saw and examined the patient with the resident and agree with the findings and plans as documented, and as amended in blue. Clinical Condition: Shirlene Bryan is a critically ill 64 y.o. male. Over the past 24 hours, therehas been a high probability of sudden, clinically significant or life threatening deterioration in the patient???s condition, which include the following diagnoses which I have managed: Active Problems: Atrial fibrillation with RVR (HCC-CMS) Acute respiratory failure with hypoxia (HCC-CMS) Septic shock (HCC-CMS) ARDS (adult respiratory distress syndrome) (HCC-CMS) SIRISHA (acute kidney injury) (HCC-CMS) Anemia Thrombocytopenia (HCC-CMS) Bacteremia Fever Encephalopathy Critical Care time was provided in the form of interventions to treat and prevent further life threatening deterioration of the patient???s condition including: Observation before/during/after ventilator weaning, Management of pain and sedation, Fluid and electrolyte management and GI prophylaxis, and high complexity decision making regarding need for additional imaging studies and / or interventional radiology interventions and the need for critical procedures, such as: central line . My bedside involvement was required to monitor and direct the critical care that has been provided.Exclusive of procedures, my critical care time is 35 minutes. Michael Thomason MD MICU Attending 04/12/2019 * Domenica Nelson RT - 04/12/2019 0502 EDT Respiratory Progress Note Indications for Respiratory therapy: trach Data Vitals: Heart Rate: 74 BPM, Resp: 18, SpO2: 100 % FIO2/O2 Device: O2 Flow Rate (L/min): 10 l/min, , O2 Device: Trach collar, FIO2 %: (S) 40 % RT Orders: Continuous trach status - #8 Shiley DIC Continuous AC or CPAP/PS ventilation at rest VC-AC Settings are: 610 x 14 + 5 PRN airway clearance PRN trach collar - trials during the day, if using for extended periods of time, discuss with MD, per MD Coto 04/05 Action/Events Respiratory events; Patient has continued on TC through the night. Was tried per Weaning fio2 to 40%. Pt doing wellwith that. #8 Shiley deflated cuff. Suctioned moderate amount throughout night. Speaking valve in place since 329. Spare trach and emergency equipment in room. Response/Results Weaning and Toleration of treatments; Pt tolerating well RT HIMANSHU 04/12/19 * Rona Negron, [facility])-DIE ATTACHING MACHINE TENDER - 04/11/2019 1435 EDT Speech-Language Pathology Voice Prosthesis Consult and Swallowing Evaluation DIE ATTACHING MACHINE TENDER Diagnosis: Aphonia, Loss of Voice: Medical Diagnosis: [id number] J18.9 Pneumonia, unspecified organism-J18.9[ICD-10-CM] Date of Service: 04/11/2019; 14:35 Date of Onset: 03/17/2019 Date of Referral: 04/09/19 Start Time: 1410 Total Therapy minutes: 20 minute(s) (10 minutes speaking valve; 10 minutes swallowing) SUBJECTIVE: One, two, three. Per pt when asked to count with speaking valve in place OBJECTIVE: Current Status: Continues on trach collar with cuff deflated. Had speaking/swallowing valve in place, but desated and had increased secretions, then valve removed by RT. Very junky upper airway congestion. He also had been eating cupful of ice chips as of yesterday and today. Cognitive Status: Patient was alert and cooperative. Respiratory Status: Tolerating Trach Collar during day, did not need to go back on ventilation lastnight. Ventilation: Patient is receiving mechanical ventilation during evening as needed. Vent still at bedside. Oxygenation: Currently patient is tolerating room air via humidified tracheostomy collar ?? O2 Therapy SpO2 84 %Abnormal FIO2 % 50 % ??O2 Device Trach collar O2 Flow Rate (L/min) 10 l/min Suctioning is being performed more frequently today than the past few days. Nutritional/Hydration Status: Patient is receiving receiving continuous Naso-Enteric/NGT means of nutrition/hydration with supplemental IV hydration. Voice Prosthesis Consult Suctioning needed: Needed done by RTSpeaking Valve Placement: Yes: Passy-Wheelwright Valve (PMV) Patient response to valve placement: No overt desat but with subtle s/s intolerance with congestionwith increased secretions, weak cough, unable to cough up into mouth Vocal quality with valve placement: Strained/Effortful, hypophonic, Wet, junky, congested with increased secretions PMV removed due to intolerance. Clinical Swallow Evaluation Positioning: Sitting in a chair Oral Peripheral Exam: Face: Symmetric, ng tube in nares Lips: Symmetric Oral Mucosa: [place] and Moist Tongue: WNL Velum: Symmetrical soft palate elevation during phonation attempts Dentition: Adequate dentition Jaw Excursion: Adequate Consistencies Tested: was assessed with ice chips only Methods of Delivery: All items were administered by DIE ATTACHING MACHINE TENDER using a spoon. Oral Phase Findings: Oral phase of swallowing is within normal limits. Patient presents with adequate oral containment, functional chewing and appropriate bolus transport for all consistencies tested. Pharyngeal Phase: Patient presents with pharyngeal phase deficits as suggested by multiple swallowsand signs/symptoms suggestive of laryngeal penetration/aspiration including weak cough during and after the swallow, persistent throat clearing and increased wet/gurgly breath and vocal quality changes. Esophageal Phase: has no overt issues. Patient/Family Education/Training: Topic: Patient/Family education and training was completed today including the role of Speech-Language Pathology, results of today's exam/recommendations, anatomy and physiology of the swallowing mechanism,altered swallowing physiology with tracheostomy and purpose of speaking valve/trach cap. Discussed with patient the need to discontinue the ice chips at this time for risk of aspiration. Discussed with patient the reduced tolerance of speaking swallowing valve today. Learner: patient Method of Education: Verbal Barriers to Learning/Education: none Patient: was able to verbalize understanding of information and needs further instruction and education Family: not present. ASSESSMENT/CLINICAL IMPRESSIONS: is a 64 y.o. male admitted with pneumonia on and now with tracheostomy. A voice prosthesis consult was completed today by Speech Language Pathology to assess tolerance of cuff deflation andone way valve. The purpose of the consult is to promote normalized swallowing function and vocal com munication. is currently able to tolerate cuff deflation. He is not able to tolerate speaking valve placement at this time due to increased secretions, increased need for suctioning, desat earlier today and weak cough. Tolerance of cuff deflation and speaking valve placement will assist with normalizing laryngeal and pharyngeal reflexes necessary for secretion management, swallow function and cough. Prognosis for tolerance of the speaking swallowing valve is judged to be good, but it may take more time as he is very weak and deconditioned. Suspect his improvement in respiratory status will be slow. A clinical swallow evaluation was completed today by Speech Language Pathology secondary to concerns for oropharyngeal dysphagia, and risk of laryngeal penetration/aspiration. currently presents with normal oral motor functioning. However he presents with severe pharyngeal stage dysphagia characterized by multiple swallows and signs/symptoms suggestive of laryngeal penetration/aspiration including weak cough during and after the swallow, persistent throat clearing and increased wet/gurgly breath and vocal quality changes. Etiology of dysphagia is patient's overall significantly deconditioned state, weakness and respiratory insufficiency causing weak cough. remains at high risk of aspiration at this time. Prognosis for improvement in swallow function is judged to be good, but will also take more time. Anticipate that as patient gets stronger overall by working with physical therapy his swallowing function and physiology will also improve. Functional Communication Measures ([place] [employer]- [employer], 2002). The Functional Communication Measures (FCM???s) are a series of 7 point rating scales, ranging fromleast functional (Level 1) to most functional (Level 7). They have been developed by [employer] to describe different aspects of patient???s functional communication and swallowing abilities over the course of DIE ATTACHING MACHINE TENDER intervention. Voice following Tracheostomy Level 1: The individual cannot produce voice as a result of tracheostomy. Alternate means for communication ( e.g., writing, mouthing, gestures, alphabet board, electronic device, etc.) are used all of the time. The individual cannot participate in vocational, avocational and social activities requiring oral communication. Swallowing Level 1: Individual is not able to swallow anything safely by mouth. All nutrition and hydration is received through non-oral means (e.g., nasogastric tube, PEG). GOALS: Patient will tolerate speaking valve to vocally communicate wants and needs Patient will tolerate ice chips without signs or symptoms of aspiration PLAN: Patient will continue to benefit for further DIE ATTACHING MACHINE TENDER intervention in this setting to address dysphagia management and intervention needs. Tracheostomy Status: Discontinue use of speaking valve at this time due to poor tolerance. Please continue patient on humidified trach collar with cuff deflated. Swallowing: The patient should remain NPO including no ice chips given signs and symptoms of aspiration. Continue tube feedings for primary nutrition and hydration needs. Impeccable oral care is essential in maintaining oral hygiene and minimizing harmful bacteria. DIE ATTACHING MACHINE TENDER follow-up: DIE ATTACHING MACHINE TENDER to follow-up Discharge Plan: Out of ICU. Then to be determined, but will likely require an inpatient rehabilitation stay. Pager # [phone] (Float DIE ATTACHING MACHINE TENDER Department) * Jatin Taylor, RT - 04/11/2019 1172 EDT Images from the original note were not included. Respiratory Consult/Progress Note Indications for Respiratory therapy: Trach/Vent Data Vitals: Heart Rate: 85 BPM, Resp: 24, SpO2: (!) 84 % FIO2/O2 Device: O2 Flow Rate (L/min): 10 l/min, , O2 Device: Trach collar, FIO2 %: 50 % RT Orders: Continuous trach status - #8 Shiley DIC Continuous AC or CPAP/PS ventilation at rest VC-AC Settings are: 610 x 14 + 5 PRN airway clearance PRN trach collar - trials during the day, if using for extended periods of time, discuss with MD, per MD Coto 04/05 Protocol Scoring: Bronchodilator/Inhalation Therapy Frequency Bronchodialator - Clinical Indications: History of COPD Breath Sounds: Any abnormal BS decreased Response: No change / no treatment Pulse: <100 Resp Rate: <18 SOB: With exertion Total Score: 2 Comment:: prn Airway Clearance Therapy Frequency Airway Clearance - Clinical Indications: Suctioning / Artificial airway Breath Sounds: Rhonchi / crackles Sputum: Large (> tbs) Consistency: Thin / thick Cough Effort: Strong, productive Color: Clear / white Total Score: 5 Comment: Q4 Trach eval Hyperinflation Therapy Frequency Hyperinflation - Clinical Indications: Prevent atelectasis Breath Sounds: Diminished / crackles Surgery: No X-Ray / Atelectasis: No O2 Requirements: > 4 L above baseline Mobility Status: In bed Total: 8 Comment: q4 trach eval Action/Events Respiratory events; 1200: Speaking valve removed due to an increase of secretions. Deep sxnd for large amount of thin white/clear secretions. Pt also orally suctioned for the same. Speaking valve left off patient at this time. 1415: DIE ATTACHING MACHINE TENDER here to re-evaluate patient. Speaking valve placed for DIE ATTACHING MACHINE TENDER, but was again removed due to secretions (see DIE ATTACHING MACHINE TENDER note). Patient currently on a 50% trach collar sating 99%. RT will attempt to wean FiO2 RT Alen 04/11/19 * Shelly Simon, OT - 04/11/2019 1112 EDT [facility] Therapy Acute Therapies [facility] - Occupational Therapy Encounter Note Date of Service: 04/11/2019 Subjective/Objective SUBJECTIVE: Yes OBJECTIVE: Time: 10:35 Total treatment time: 25 minutes. Timed code treatment minutes: 25 Interventions included: Therapeutic Exercise : Patient resting in bed at beginning of OT session, patient alert with speaking valve in place. Nursing in room assisting patient to chair with min contact assist with bed mobility, and min cues for hand placement, able to maintain unsupported sitting , sit to stand and transfer to recliner chair with two assist. Patient participated in therex session while supported in recliner chair. Patient performed all exercises with min cues and ~ 1 minute rest in between each exercise. Patientperformed the following exercises, with min cues: RUE: Shoulder flexion with AROM x 10 reps to ~ 120?? Partial overhead press with 1# db x 10 reps Forward chest press x 10 reps 1# db Elbow flexion x 10 reps with 1# DB Supination/proantion, wrist flexion,extension x 10 reps each with #1 db LUE: Shoulder flexion with AROM x 10 reps Partial overhead press with 1 # db x 10 reps Forward chest press x 10 reps AAROM Elbow flexion x 10 reps with 1# DB Supination/proantion, wrist flexion,extension x 10 reps each with #1 db Patient remained in recliner chair at end of session, call grayson within reach Vital signs: TC, speaking valve in place. O2 sats 92-97% 1-% flow rate, 50% FiO2 Patient/Family Education: Topic: Benefits of activity Energy conservation D/C planning exercise program Learner: patient Method: verbal and demonstration Barriers to Learning: none noted Outcome: verbalized understanding and practice needed Team Communication: With nursing before and after session Assessment/Plan ASSESSMENT: Shirlene valdes participating in therapy sessions, which included UE therex today in prep for ADL carryover. Required consistent rests throughout session. PLAN: Continue per plan of care Recommended Discharge Destination: Inpatient rehab Recommended Discharge Services: Occupational therapy at rehabilitation facility Recommended Discharge Equipment: To be determined by next care provider Pager: [phone] SHELLY SIMON OT, 04/11/2019, 11:12 * Michael Thomason MD, - 04/11/2019 0619 EDT Critical Care Progress Note Service Date: 04/11/2019 Admit Date: 03/17/2019 9:03 Reason for Admission to ICU: Shirlene Bryan is a 64 y.o male with no past medical history??and current smoker??who presents from [facility] with ARDS, and septic shock secondary to presumed pneumonia Critical and life-threatening events over the past 24 hours: -desated to 94% SpO2 which improved after secretions removed -[employer] placed -UO: 300, I/O: +1.3, net negative 7L since 03/28/2019 Subjective/Objective Subjective Happy to be talking. Wants to be eat. ROS negative. Review of Systems A ten point review of systems was performed. Pertinent positives are listed above, all others are negative Objective temperature 37.3 ??C (99.1 ??F), Blood pressure 120-144/67-79, Heart Rate: 87- 93, resp. rate 18-22,SpO2 96-98 % on trach collar oxygen. Physical Exam Gen: AAOX3, Fatigued and thin male, No acute distress, conversing appropriately nonverbally HEENT: NC/AT, MMM Neck: tracheostomy in place Pulm: Positive for diffuse rhonci, no wheezing CV: regular rate and rhythm, no murmurs, rubs, or gallops, S1 and S2 heard Abd: Soft, non-tender, non-distended, positive bowel sounds, no splenohepatomegaly : No park in place Neuro: No focal deficits, Moving all extremities Ext: No lower extremity edema, good distal pulses, normal cap refill, no clubbing or cyanosis noted Recent Labs 04/09/19 04204/10/19 0404 WBC 6.09 7.52 HGB 8.1* 8.3* HCT 24.8* 25.4* PLT 439* 505* Recent Labs 04/09/19 0421 04/10/19 0404 NA 137 136 K 4.1 4.2 CL 106 105 CO2 24 25 CREATININE 0.66 0.73 MG 1.9 2.0 PHOS 3.9 3.8 Cultures: Blood (04/08/2019): pending Urine (04/08/2019): usual urogenital constance MRSA PCR (04/10/2019): negative Assessment/Plan Assessment Mr. Bryan is a 64 y.o.??male??with a pmhx significant for COPD and tobacco use who [facility] from [facility] 03/17/19 with septic shock and??ARDs??secondary to presumed pneumonia. On arrival he was also found to have metabolic acidosis, AF with RVR, SIRISHA, and volume overload. Hospital course complicated by acute decompensation (03/20/19) with HD instability and hemorrhagic shock secondary to upper GI bleed. Tracheostomy placed 03/28/19. He now remains HD stable.??He spiked intermittent low grade fevers (38.0-38.4) from 04/05-04/08. CXR 04/08 revealed no acute changes.Blood cultures from 04/08 pending and urine cultures negative. Park removed 04/08.??He is participating in PT/OT and motivated to improve functional status. He is now speaking through [employer] valve and tolerating TC oxygen trials Plan Pulmonary ?# Acute hypoxic respiratory failure with ARDS secondary to pneumonia,??volume overload, and COPD (empysema seen on CT).??Increased RR overnight w/o O2 desats.??Bicarb 22 (wnl) unlikely due to derangements in pH. CXR??on 04/08??shows no acute changes. His respiratory distress has improved over last couple of days since decreasing trach collar trial time with increased vent time. ??Respiratory distress likely secondary to aggressive TC trials in the setting of injured lungs and increased anxiety.??He has improved with VC-AC. Resumed trach collar trials 04/07 which are going well. He does have periods of O2 desats that improve with removing secretions. Tolerating cuff deflation and speaking valve placement. Plan to transfer to floor after 48h on trach collar oxygen -??TC oxygen as tolerated -??Clonazepam BID PRN for anxiety - PT/OT??following -DIE ATTACHING MACHINE TENDER following -Transition to uncuffed trach if able to trach collar >48 hours with possible decannulation prior to hospital discharge.?? #COPD: found this admission - Duonebs q6h PRN ?? Cardiac - No acute issues ?? Renal - No acute issues? GI Nutrition?? #Upper GI Bleed: resolved 03/20/19. - PPI BID: per conversation with GI plan is to continue PPI BID for 4 weeks and then transition to qd. His endoscopy showed diffuse ulcerations in stomach and duodenum - Nutritional supplement liquid - Multivitamin - Diet NPO ?? Infectious Disease ?#Sepsis 2/2 left lower PNA and MSSA bacteremia: (resolved) Presumed community acquired.??Uptrending fever curve started on 04/05 With periodic spikes over last few days. 04/08 fever spiked in afternoon to 38.1. Afebrile overnight. CXR 04/08 demonstrated no acute changes. WBC wnl. Blood culturesfrom 04/08 pending. Urine cultures negative (no active issues) - Completed 14-day course antibiotics - PICC??replaced 04/06 ?? Hematologic?? #Acute blood loss anemia s/p??1U pRBC??04/07 for HgB 6.6.? Etiology of drop unclear??patient does??not show signs of active bleedin and remains clinically stable. Likely 2/2 to phlebotomy,??bone marrow suppression from critical illness, and chronic anemia. Now stable at 8.3 - Transfuse if HgB <7??or signs of Hemodynamic instability?? - CBC daily ?? Neurologic?? # Acute??Encephalopathy: Likely delirium. Now resolved. Alert, awake, and following commands. Olanzapine and ketamine d/c 04/03 - Melatonin qHS - Encourage patient to sit up and out of bed in??recliner for improved mood when trach collar trials resume - Continue PT - Clonazepam BID PRN ?? Endocrine?? -??POC glucose d/c 04/04 as not requiring supplemental insulin in >48h -no active issues ?? Skin: pressure wound status quo - Closely followed by nursing - Wound care following ? Lines - PICC - PIV ?? Prophylaxis - GI -??PPI - DVT -??Enoxparin ?? Communication Code Status:??Limitation of Treatment. ?? Clinical Condition: critical ?? Rounding checklist completed Critical Care Daily Checklist: Completed Dorinda Parada, MS4 Pager: [phone] 04/11/2019 11:38 Attending attestation statement: I saw and examined the patient with the resident and agree with the findings and plans as documented, and as amended in blue. Clinical Condition: Shirlene Bryan is a critically ill 64 y.o. male. Over the past 24 hours, therehas been a high probability of sudden, clinically significant or life threatening deterioration in the patient???s condition, which include the following diagnoses which I have managed: Active Problems: Atrial fibrillation with RVR (HCC-CMS) Acute respiratory failure with hypoxia (HCC-CMS) Septic shock (HCC-CMS) ARDS (adult respiratory distress syndrome) (HCC-CMS) SIRISHA (acute kidney injury) (HCC-CMS) Anemia Thrombocytopenia (HCC-CMS) Bacteremia Fever Encephalopathy Critical Care time was provided in the form of interventions to treat and prevent further life threatening deterioration of the patient???s condition including: Management of mechanical ventilation, Observation before/during/after ventilator weaning, Management of pain and sedation, Fluid and electrolyte management and GI prophylaxis, and high complexity decision making regarding need for additional imaging studies and / or interventional radiology interventions and the need for critical procedures, such as: central line . My bedside involvement was required to monitor and direct the critical care that has been provided.Exclusive of procedures, my critical care time is 35 minutes. Michael Thomason MD MICU Attending 04/11/2019 * Jatinder Monreal, RT - 04/10/2019 1531 EDT Images from the original note were not included. Respiratory Consult/Progress Note Indications for Respiratory therapy: trach/ vent Data Vitals: Heart Rate: 95 BPM, Resp: 24, SpO2: 94 % FIO2/O2 Device: O2 Flow Rate (L/min): 10 l/min, , O2 Device: Trach collar, FIO2 %: (S) 50 % RT Orders: Continuous trach status - #8 Shiley DIC Continuous AC or CPAP/PS ventilation at rest VC-AC Settings are: 610 x 14 + 5 PRN airway clearance PRN trach collar - trials during the day, if using for extended periods of time, discuss with MD, per MD Coto 04/05 Protocol Scoring: Bronchodilator/Inhalation Therapy Frequency Bronchodialator - Clinical Indications: History of COPD Breath Sounds: Any abnormal BS decreased Response: No change / no treatment Pulse: <100 Resp Rate: 18-25 SOB: With exertion Total Score: 3 Comment:: prn Airway Clearance Therapy Frequency Airway Clearance - Clinical Indications: Suctioning / Artificial airway Breath Sounds: Rhonchi / crackles Sputum: Large (> tbs) Consistency: Thin / thick Cough Effort: Strong, productive Color: Clear / white Total Score: 5 Comment: Q4 Trach eval Hyperinflation Therapy Frequency Hyperinflation - Clinical Indications: Prevent atelectasis Breath Sounds: Other Surgery: No X-Ray / Atelectasis: No O2 Requirements: > 4 L above baseline Mobility Status: In chair Total: 6 Comment: q4 trach eval Action/Events Respiratory events; 1520 Patient looks to have drainage around trach site that is white, thin/frothy. Patient PMV removed and patient was able to cough up copious amounts of frothy white secretions easily. Patients [id number] improved after secretions removed as well as switching spo2 probe to different finger. Patient fio2 titrated back down to 50% at this time. 1630 Patient heard coughing. Tracheal suctioning done and suctioned for moderate think white frothysecretions. 2030 suctioning done via trach catheter. Suctioned for mod. Frothy thin white secretions. Patient still tolerating PMV well. Plan overnight is to go as long as pt can on trach collar 2300 - Patient tolerated trach collar overnight well as well as PMV. Suctioned once for moderate frothy thin secretions. Trach site cleaned and dressing changed. Response/Results Continue to monitor patient and ability to clear secretions, continue trach collar as tolerated. CHERIE CARLOS, RT 04/10/19 Jatinder Monreal, RT 04/11/19 * Davida Randhawa, MS [facility])-DIE ATTACHING MACHINE TENDER - 04/10/2019 1511 EDT Images from the original note were not included. Speech-Language Pathology Voice Prosthesis Evaluation DIE ATTACHING MACHINE TENDER Diagnosis: Aphonia, Loss of Voice: Medical Diagnosis: [id number] J18.9 Pneumonia, unspecified organism-J18.9[ICD-10-CM] Date of Service: 04/10/2019; 15:13 Date of Onset: 03/17/2019 Date of Referral: 04/09/19 Start Time: 0900 Total Therapy minutes: 30 minute(s) SUBJECTIVE: It's wonderful verbalized with speaking valve in place. OBJECTIVE: Medical History: Leticia Galdamez MD, Pulmonary & Critical Care Medicine 03/17/2019 Shirlene Bryan is a 64 y.o male with no past medical history and current smoker [facility]. ?? Per note from [facility], he presented on 03/15 after having 2 and half weeks of symptoms that started with fever and loss of appetite. The fever resolved after 1 week. He also reported weakness, fatigue,body aches, diarrhea, vomiting during that period. He had decreased food and fluid intake. The patient has not been seen by a doctor for about 10 years. ?? On presentation to [facility] he was hemodynamically stable. Labs significant for Na: 134 K: 3.9 Cl: 95CO2: 17 Ca: 9 Cr: 5.75 BUN: 178 Lactic acid: 2.7 WBC: 18.01.Chest CT showed multiple areas of consolidation in both lungs. He was admitted for pneumonia and renal failure and treated with azithromycin and ceftriaxone. He was given a total of 6L of fluid. The patient went into rapid A. fib this morning and was intubated due to hemodynamic instability. He was put on a diltiazem drip and transferred to the MICU. ?? Currently intubated and sedated History reviewed. No pertinent past medical history. Patient Active Problem List Diagnosis ??? Atrial fibrillation with RVR (HCC-CMS) ??? Acute respiratory failure with hypoxia (HCC-CMS) ??? Septic shock (HCC-CMS) ??? ARDS (adult respiratory distress syndrome) (HCC-CMS) ??? SIRISHA (acute kidney injury) (HCC-CMS) ??? Anemia ??? Thrombocytopenia (HCC-CMS) ??? Bacteremia ??? Fever ??? Encephalopathy Medications: Current Facility-Administered Medications: ??? acetaminophen (TYLENOL) tablet 1,000 mg, 1,000 mg, oral, Q8H PRN, Ayaan Corado MD, 1,000 mg at 04/08/19 1655 ??? alteplase (CATHFLO ACTIVASE) injection 2 mg, 2 mg, intercatheter, PRN, Ayaan Corado MD, 2 mgat 04/09/19 1048 ??? amino acids-protein hydrolysate (PRO SOURCE NOCARB) packet 30 mL, 30 mL, oral, BID, Ayaan Corado MD, 30 mL at 04/10/19 0843 ??? cholecalciferol (Vitamin D3) tablet 1,000 Units, 1,000 Units, oral, DAILY, Ayaan Corado MD, 1,000 Units at 04/10/19 0843 ??? clonazePAM (KLONOPIN) tablet 0.5 mg, 0.5 mg, oral, BID PRN, Chanda Pop MD, 0.5 mg at 04/09/192111 ??? dextrose 50 % solution 12.5-25 g, 12.5-25 g, intravenous, PRN, Jocelyn Coto MD ??? enoxaparin (LOVENOX) injection 40 mg, 40 mg, subcutaneous, DAILY, Flex Flores MD, 40 mg at 04/10/19842 ??? ipratropium-albuterol (DUONEB) 0.5 mg-3 mg(2.5 mg base)/3 mL nebulizer solution 3 mL, 3 mL, nebulization, Q6H PRN, Brian Saldana MD, 3 mL at 04/07/19 0020 ??? magnesium sulfate 2g in D5W 50 ml, 2 g, intravenous, PRN, Leticia Galdamez MD, 2 g at ??? melatonin tablet 5 mg, 5 mg, oral, QHS, Leticia Galdamez MD, 5 mg at 04/09/192111 ??? Multivitamins with minerals + ferrous gluconate (CENTRUM) oral solution 15 mL, 15 mL, feeding tube, DAILY, Ayaan Corado MD, 15 mL at 04/10/19842 ??? nicotine (NICODERM CQ) 7 mg/24 hr patch 1 Patch, 1 Patch, transdermal, DAILY, Domenica High MD, Last Rate: 0 mL/hr at 04/09/192111, 1 Patch at 04/10/19842 ??? nutren 1.5 liquid, , per g tube, CONTINUOUS, Flex Flores MD, Last Rate: 42 mL/hr at 04/10/19 1200 ??? pantoprazole (PROTONIX) injection 40 mg, 40 mg, intravenous, BID, Jonatan Martinez MD, 40 mg at 04/10/19842 ??? papain-alpha amylase-cellulase (CLOG ZAPPER) 2-5 mL, 2-5 mL, feeding tube, PRN, LesleySindy MD ??? potassium chloride in water infusion 20 mEq, 20 mEq, intravenous, PRN, Christopher Cardenas MD, 20mEq at 04/06/19 0500 ??? potassium phosphate 3 mMol/mL oral solution 15 mmol, 15 mmol, oral, Daily PRN, Ayaan Corado MD ??? senna (SENOKOT) tablet 2 Tab, 2 Tab, oral, BID PRN, 2 Tab at 03/18/19 1040 OR sennosides (SENOKOT) syrup 17.6 mg, 10 mL, per ng tube, BID PRN, Kori Nguyen MD ??? sodium chloride 0.9 % (flush) flush 10 mL, 10 mL, intercatheter, WEEKLY, Ayaan Corado MD, 10mL at 04/06/19 1614 ??? sodium chloride 0.9 % (flush) flush 10 mL, 10 mL, intercatheter, PRN, Ayaan Corado MD ??? sodium chloride 0.9 % (flush) flush 10 mL, 10 mL, intercatheter, WEEKLY, Domenica High MD, 10mL at 04/06/19 0945 ??? sodium chloride 0.9 % (flush) flush 20 mL, 20 mL, intercatheter, PRN, Ayaan Corado MD Patient Consented to Evaluation: Yes Members present for Evaluation:DIE ATTACHING MACHINE TENDER and RT (Sheela Agudelo) Current Status: Cognitive Status: Patient was alert and cooperative during evaluation. Respiratory Status: Tolerating Trach Collar during day, ventilation in the evening. Patient is tolerating continuous trach collar trials of 4 hours x 3 consecutive days Ventilation: Patient is receiving mechanical ventilation during evening. Vent A/C 14/610/+5/35% in order to rest for the night. Mechanical Ventilation 35% SpO2: [89 %-100 %] Oxygenation: Currently patient is tolerating room air via humidified tracheostomy collar and oxygen saturation is 93-96 %. Vitals: Heart Rate: 82 BPM, Resp: 30, SpO2: 90 % O2 Flow Rate (L/min): 8 l/min, , O2 Device: Intubated, FIO2 %: 35 % ?? Tracheostomy was performed on 03/28/19, and was completed by ACS via percutaneous procedure. A cuffed Shiley #8 was placed. Currently, trach has cuff inflated. Deep suctioning is being performed every4 hours or more frequently for large secretions that are thin. Nutritional/Hydration Status: Patient is receiving receiving Naso-Enteric/NGT means of nutrition/hydration with supplemental IV hydration. Medical/Orthopedic Considerations: None Oral Peripheral Exam: Face: Symmetric Lips: Symmetric Oral Mucosa: [place] and Moist Tongue: WNL Velum: Symmetrical soft palate elevation during phonation attempts Dentition: Adequate dentition Jaw Excursion: Adequate Voice Prosthesis Evaluation Tracheostomy cuff deflated by: Sheela Mendoza Suctioning needed: Not neededManometry/Gloved finger occlusion completed by: Sheela Mendoza Response to Manometry/gloved finger occlusion: Tolerated Vocal quality during finger occlusion: Strained/Effortful and Wet Speaking Valve Placement: Yes: Passy-Wheelwright Valve (PMV) Patient response to valve placement: Tolerated Vocal quality with valve placement: Strained/Effortful and Wet Inspiratory/Expiratory Tracheal pressures were: 5/4 ?? Tracheostomy Tube Care Pathway Patient/Family Education: Topic: Patient/Family education and training was completed today including the role of Speech-Language Pathology, results of today's exam/recommendations, purpose of speaking valve/trach cap and questions were addressed. Learner: patient Method of Education: Verbal and Demonstration Barriers to Learning/Education: none Patient: was able to verbalize understanding of information and needs further instruction and education Family: not present ASSESSMENT/CLINICAL IMPRESSIONS: is a 64 y.o. male admitted with pneumonia on 03/17/19. A voice prosthesis evaluation was completed today by Speech Language Pathology to assess tolerance of cuff deflation and candidacy for one way valve placement. The purpose of the evaluation is to promote normalized swallowing function and vocal communication. is currently able to tolerate cuff deflation and speaking valve placement at this time. Tolerance of cuff deflation and speaking valve placement will assist with normalizing laryngeal and pharyngeal reflexes necessary for secretion management, swallow function and cough. Prognosis is judged to be good at this time secondary to anticipated improvement in respiratory status. Anticipate patient will be able to tolerate Speaking valve on continuously with trach collar. Functional Communication Measures ([place] [employer]- [employer], 2002). The Functional Communication Measures (FCM???s) are a series of 7 point rating scales, ranging fromleast functional (Level 1) to most functional (Level 7). They have been developed by [facility] to describe different aspects of patient???s functional communication and swallowing abilities over the course of DIE ATTACHING MACHINE TENDER intervention. Voice following Tracheostomy Level 4: The individual occasionally requires minimal cueing/assistance to produce simple sentences/messages during structured conversations with familiar communication partners and usually requires moderate cueing/assistance to produce simple sentences/messages with unfamiliar partners, although accuracy may vary. Spontaneous conversation is not consistent and the individual rarely produces complex sentences/messages that are understood by others. Participation in vocational, avocational and social activities requiring oral communication is limited some of the time and alternate means of communication may be needed. GOALS: Provide intervention and recommendations toward eventual wean from trach, Tolerate speaking valve to vocally communicate wants and needs PLAN: Tracheostomy Status: Speaking valve: Leave on continuously as tolerated Swallowing: Patient to participate in swallowing evaluation with speaking valve on. DIE ATTACHING MACHINE TENDER follow-up: DIE ATTACHING MACHINE TENDER to follow-up within 48 hours. Discharge Plan: Unknown at time of evaluation. Davida Randhawa MS, CCC-DIE ATTACHING MACHINE TENDER Speech Language Pathologist Pager #[phone] (Tuesday - Tuesday [phone]) Pager # [phone] (Float DIE ATTACHING MACHINE TENDER Department) * Madelyn Knowles, PT - 04/10/2019 1458 EDT Rehabilitation Therapy Acute Therapies [facility] Physical Therapy Encounter Note Date of Service: 04/10/2019 Subjective/Objective Subjective I am tired but I want to try something. (speaking valve in) Objective Intervention completed today: Time: 1300 Total treatment time: 25 minutes. Timed code treatment minutes: 25 Vital Signs: Activity Heart rate (bpm) Oxygen Sat/ Fractions of inspired Oxygen SPO2/FIO2 % Pre 92 92% SPO2 on 12L trach collar 40% FIO2 During 102 87-91% SPO2 on 12L trach collar 40% FIO2 Post 90% SPO2 on 12L trach collar 40% FIO2 Therapeutic Exercise: Patient sitting in recliner chair upon entering room. Seated therex x 10 Ankle pumps Long arc quad Marching Anterior weight shift x10 Anterior/posterior scooting x5 Therapeutic Activity: Sit<>stand x2 with max Ax2- attempted but unable to complete due to fatigue Patient sitting in recliner with call grayson in hand at end of treatment. Patient/Family Education: Topic: Activity pacing/Energy conservation Assistive device/technique Balance Precautions/protocol Role of therapy Safety Transfers Learner: patient Method: verbal and demonstration Barriers to Learning: none noted Outcome: requires assist and needs practice Team Communication: Consulted with RN before and after treatment with regards to patient status. Assessment/Plan Assessment Patient continues to be significantly deconditioned with limited tolerance to activity due to multiple therapies today and ongoing trials of trach collar and speaking valve. Patient continues to be very motivated to progress with PT, therefore anticipate ongoing slow but steady progress. Continue to recommend BETITO to facilitate maximal functional outcome. Plan Continue per plan of care Recommended Discharge Destination: Sub-acute rehabilitation Recommended Discharge Services: Physical therapy at rehabilitation facility Recommended Equipment Needs: To be determined by next care provider Other recommendations: No other consults recommended at this time Primary Therapist: Pager: [phone] Madelyn Knowles, PT 04/10/2019 14:58 * Dorinda Smith, RT - 04/10/2019 1210 EDT Respiratory Consult/Progress Note Indications for Respiratory therapy: Trach / Vent Data Vitals: Heart Rate: 95 BPM, Resp: 26, SpO2: 92 % FIO2/O2 Device: O2 Flow Rate (L/min): 12 l/min, , O2 Device: Trach collar, FIO2 %: 40 % RT Orders: Continuous trach status - #8 Shiley DIC Continuous AC or CPAP/PS ventilation at rest VC-AC Settings are: 610 x 14 + 5 PRN airway clearance PRN trach collar - trials during the day, if using for extended periods of time, discuss with MD, per MD Coto 04/05 Protocol Scoring: Bronchodilator/Inhalation Therapy Frequency Bronchodialator - Clinical Indications: History of COPD Breath Sounds: Any abnormal BS decreased Response: No change / no treatment Pulse: <100 Resp Rate: 26-32 SOB: With exertion Total Score: 4 Comment:: prn Airway Clearance Therapy Frequency Airway Clearance - Clinical Indications: Suctioning / Artificial airway Breath Sounds: Rhonchi / crackles Sputum: Large (> tbs) Consistency: Thin / thick Cough Effort: Strong, productive Color: Clear / white Total Score: 5 Comment: Q4 Trach eval Hyperinflation Therapy Frequency Hyperinflation - Clinical Indications: Prevent atelectasis Breath Sounds: Other Surgery: No X-Ray / Atelectasis: No O2 Requirements: 2-4 L above baseline Mobility Status: In chair Total: 5 Comment: Q4 Trach eval Action/Events Respiratory events; Pt transitioned to 35% trach collar and speaking valve placed at 0900. Required suctioning once fora large amount of thick/thin white sputum. Trach care done at 1200. Response/Results Weaning and Toleration of treatments; Continue with trach collar trials and speaking valve placement as tolerated. Dorinda Smith, RT 04/10/19 * Shelly Simon, OT - 04/10/2019 1106 EDT The Rehabilitation Therapy Acute Therapies [facility] - Occupational Therapy Encounter Note Date of Service: 04/10/2019 Subjective/Objective SUBJECTIVE: I think I need to use the bathroom OBJECTIVE: Time: 10:45 Total treatment time: 15 minutes. Timed code treatment minutes: 15 Interventions included: Self-Care/Home Management : patient resting in bed at beginning of OT session, alert, with speakingvalvce in place. Patient clearly able to communicate during session. Functional mobility: assist to manage all lines prior and after mobility. Cues needed for hand placement for supine to sit, required min contact assist to perform supine to sit, once seated edge of bed patient able maintain x ~ 5 minutes, cues needed for hand placement , but able to maintain unsupported sitting edge of bed without external support. Discussed goals of session for edge of bed activity/therex, but unable to complete due to need for use of bed cordero(dicussedfurther use of commode), as well as increased effort maintain balance and participate in UE activity. Supine to sit performed with supervision, nursing in room at end of session to assist patient on bed cordero. Vital signs: Position Heart Rate (bpm) Blood Pressure (mmHG) Respiratory Rate (breaths/min) Oxygen Saturation SPO2 Liters of Oxygen Pre: Semi fowlers 87 118/64 24 96% TC, 35% FiO2, 10 L Post: Semi fowlers 92 150/78 26 94% Patient/Family Education: Topic: Benefits of activity Compensatory strategies Role of OT Energy conservation exercise program Learner: patient Method: verbal and demonstration Barriers to Learning: none noted Outcome: verbalized understanding and practice needed Team Communication: With nursing after session Assessment/Plan ASSESSMENT: Shirlene today with speaking valve in for session, verbalizing appropriately. Patient motivated to be up and moving. Patient tolerated the ability to achieve edge of bed today in prep for ADL's and UE therex to address activity tolerance/weakness. Anticipate ongoing slow steady progress with the need for inpatient rehab once medically ready for discharge. PLAN: Continue per plan of care Recommended Discharge Destination: Inpatient rehab Recommended Discharge Services: Occupational therapy at rehabilitation facility Recommended Discharge Equipment: To be determined by next care provider Pager: [phone] SHELLY SIMON OT, 04/10/2019, 11:06 * Sheela Agudelo, RT - 04/10/2019 0920 EDT Images from the original note were not included. Respiratory Continuing Care Note: Speaking/Swallowing Valve Assessment with DIE ATTACHING MACHINE TENDER/RT: Date of Service: 04/10/19 Trach days, Placement date, Service, date changed: 13 days, place by [facility] Indication for trach: Mechanical ventilation Trach Brand and Size: Shiley 8 Cuff was deflated slowly while using the manual resuscitation bag. The manual resuscitation bag can help provide back pressure or restore subglottic pressure to help clear the airway of secretions that sit/pull above the cuff. Using the bag can also fill the lungs, keeping the secretions higher in the airway. Intra-tracheal pressures were measured using manometry in cmH2O. Inspiratory/Expiratory Tracheal pressures were: 5/4 Tracheostomy Tube Care Pathway Shiley cuffed trachs can not be capped. Smith and Bivona TTS may be capped if the patient meets criteria. Reference: Tracheostomy tube manometry: evaluation of speaking valves, capping and need for downsizing Dae Varma, Nina Alan and Rosalinda Eisenberg Assessment: Patient meeting criteria for valve placement. Valve was placed. Patient tolerating well. See DIE ATTACHING MACHINE TENDER's full note. Recommendations/Plan: 1. Speaking valve on continuously with trach collar as tolerated. RT Edin 04/10/2019 9:21 * Michael Thomason MD, - 04/10/2019 0635 EDT Critical Care Progress Note Service Date: 04/10/2019 Admit Date: 03/17/2019 9:03 Reason for Admission to ICU: 64 y.o.??male??with a pmhx significant for COPD and tobacco use who was transferred from [facility] 03/17??admitted to the MICU for septic shock and??ARDs??secondaryto presumed pneumonia. Critical and life-threatening events over the past 24 hours: - Afebrile - UO: 950ml, I/O: +0.75L (04/09/19). Net negative 9.3L since admission - Trach oxygen trial 8 - 10 hours yesterday tolerated well. Subjective/Objective Subjective Assessed in bed. No pain or dyspnea. Eager to be cleared by DIE ATTACHING MACHINE TENDER and have a popsicle. Review of Systems A ten point review of systems was performed. Pertinent positives are listed above, all others are negative Objective temperature 36.4-37.2, Blood pressure 102-123/60-73, HR: 65-79, RR: 18-25, SpO2 96-98 % on VC-AC. Physical Exam Gen: AAOX3, Fatigued and thin male, No acute distress, conversing appropriately nonverbally HEENT: NC/AT, MMM Neck: tracheostomy in place Pulm: Positive for diffuse rhonci, no wheezing CV: regular rate and rhythm, no murmurs, rubs, or gallops, S1 and S2 heard Abd: Soft, non-tender, non-distended, positive bowel sounds, no splenohepatomegaly : No park in place Neuro: No focal deficits, Moving all extremities Ext: No lower extremity edema, good distal pulses, normal cap refill, no clubbing or cyanosis noted Recent Labs 04/08/1952704/09/1942004/10/19 0404 WBC 5.57 6.09 7.52 HGB 8.1* 8.1* 8.3* HCT 25.4* 24.8* 25.4* PLT 423* 439* 505* Recent Labs 04/08/1952704/09/191 04/10/19 0404 NA 136 137 136 K 4.2 4.1 4.2 CL 105 106 105 CO2 24 24 25 CREATININE 0.73 0.66 0.73 MG 1.9 1.9 2.0 PHOS 3.5 3.9 3.8 Recent Labs 04/07/19 1120 GLUCOSEFINGE 126* CXR 04/08 Findings: Single portable AP view of the chest. ?? Lines/tubes: ??A left PICC line is now seen terminating at the superior cavoatrial junction. Transesophageal tube courses below the diaphragm and the tip is not clearly seen. Endotracheal tube is stable in position. No other lines or tubes are identified. ?? Soft tissues and bones: No significant soft tissue or osseous abnormalities. ?? Cardiac and mediastinal contours: The cardiac mediastinal silhouette is within normal limits. ?? Lungs: Patchy airspace opacities in the mid and basilar lungs is grossly stable from prior. No other significant change. ?? Pleura: No evidence of pneumothorax or definite pleural fluid. ?? Impression: Multifocal pneumonia, unchanged from prior. I have personally reviewed the images and the above interpretation and agree with the findings. Assessment/Plan Assessment Mr. Bryan is a 64 y.o.??male??with a pmhx significant for COPD and tobacco use who [facility] from [facility] 03/17/19 with septic shock and??ARDs??secondary to presumed pneumonia. On arrival he was also found to have metabolic acidosis, AF with RVR, SIRISHA, and volume overload. Hospital course complicated by acute decompensation (03/20/19) with HD instability and hemorrhagic shock. Tracheostomy placed 03/28/19. He now remains HD stable.??He continues to spike intermittentlow grade fevers (38.0-38.4). CXR 04/08 reveals no acute changes. Blood cultures and urine culturespending. Park removed 04/08.??He is participating in PT/OT and communicating via writing. Plan Pulmonary ?# Acute hypoxic respiratory failure with ARDS secondary to pneumonia,??volume overload, and COPD (empysema seen on CT).??Increased RR overnight w/o O2 desats.??Bicarb 22 (wnl) unlikely due to derangements in pH. CXR on 04/08 shows no acute changes. His respiratory distress has improved over last couple of days since decreasing trach collar trial time with increased vent time. ??Respiratory distress likely secondary to aggressive TC trials in the setting of injured lungs and increased anxiety. He has improved with VC-AC. Resumed trach collar trials 04/07. Eight hour TC trial 04/09 went well - TC trial today as tolerated. Will continue overnight tonight since he appears to be improving today. Able to speak now with PMV. -??Clonazepam BID PRN for anxiety - DIE ATTACHING MACHINE TENDER following: speaking/swallowing trach valve ordered per recommendation from DIE ATTACHING MACHINE TENDER??when he meetseligibility. - PT/OT??following ?? #COPD - Duonebs q6h PRN ?? Cardiac - No acute issues ?? Renal - No acute issues? GI Nutrition #Upper GI Bleed: resolved 03/20/19. - PPI BID: per conversation with GI plan is to continue PPI BID for 4 weeks and then transition to qd. His endoscopy showed diffuse ulcerations in stomach and duodenum - Nutritional supplement liquid - Multivitamin - Diet NPO ?? Infectious Disease ?#Sepsis 2/2 left lower PNA and MSSA bacteremia: Presumed community acquired.??Uptrending fever curve started on 04/05 With periodic spikes over last few days. 04/08 fever spiked in afternoon to 38.1. Afebrile overnight. CXR 04/08 demonstrated no acute changes. WBC wnl. . - Completed 14-day course antibiotics - PICC replaced 04/06 - follow blood cultures and urine cultures ?? Hematologic #Acute blood loss anemia s/p 1U pRBC 04/07 for HgB 6.6.? Etiology of drop unclear??patient does??not show signs of active bleedin and remains clinically stable. Likely 2/2 to phlebotomy, bone marrow suppression from critical illness, and chronic anemia. Now stable at 8.1 - Transfuse if HgB <7??or signs of Hemodynamic instability?? - CBC daily ?? Neurologic # Acute??Encephalopathy: Likely delirium. Now resolved. Alert, awake, and following commands. Olanzapine and ketamine d/c 04/03 - Melatonin qHS - Encourage patient to sit up and out of bed in??recliner for improved mood when trach collar trials resume - Continue PT - Clonazepam BID PRN ?? Endocrine?? -??POC glucose d/c 04/04 as not requiring supplemental insulin in >48h ?? Skin: pressure wound status quo - Closely followed by nursing - Wound ? Lines - PICC - PIV ?? Prophylaxis - GI -??PPI - DVT -??Enoxparin ?? Communication Code Status:??Limitation of Treatment. ?? Clinical Condition: critical ?? Rounding checklist completed Ayaan Corado, PGY#3 04/10/2019 6:35 Attending attestation statement: I saw and examined the patient with the resident and agree with the findings and plans as documented, and as amended in blue. Clinical Condition: Shirlene Bryan is a critically ill 64 y.o. male. Over the past 24 hours, therehas been a high probability of sudden, clinically significant or life threatening deterioration in the patient???s condition, which include the following diagnoses which I have managed: Active Problems: Atrial fibrillation with RVR (HCC-CMS) Acute respiratory failure with hypoxia (HCC-CMS) Septic shock (HCC-CMS) ARDS (adult respiratory distress syndrome) (HCC-CMS) SIRISHA (acute kidney injury) (HCC-CMS) Anemia Thrombocytopenia (HCC-CMS) Bacteremia Fever Encephalopathy Critical Care time was provided in the form of interventions to treat and prevent further life threatening deterioration of the patient???s condition including: Management of mechanical ventilation, Observation before/during/after ventilator weaning, Management of pain and sedation, Fluid and electrolyte management, Antimicrobial therapy and GI prophylaxis, and high complexity decision making regarding candidacy for extubation and the need for critical procedures, such as: central line . My bedside involvement was required to monitor and direct the critical care that has been provided.Exclusive of procedures, my critical care time is 35 minutes. Michael Thomason MD MICU Attending 04/10/2019 * Jerzy Sosa, RT - 04/10/2019 0527 EDT Respiratory Progress Note Indications for Respiratory therapy: Trach/vent Data Vitals: Heart Rate: 82 BPM, Resp: 30, SpO2: 90 % FIO2/O2 Device: O2 Flow Rate (L/min): 8 l/min, , O2 Device: Intubated, FIO2 %: 35 % RT Orders: Continuous trach status - #8 Shiley DIC Continuous AC or CPAP/PS ventilation at rest VC-AC Settings are: 610 x 14 + 5 PRN airway clearance PRN trach collar - trials during the day, if using for extended periods of time, discuss with MD, per MD Coto 04/05 Action/Events Respiratory events; 04/09 - Pt remained on Trach Collar 35% from 09:02am-8:20pm. Placed back on Vent A/C 14/610/+5/35% in order to rest for the night. RT [place] 04/10/19 * Perez Mullins - 04/09/2019 1534 EDT Spiritual Care Note Re: Shirlene Bryan : 1955, AGE: 64 y.o. Room: [place] [id number] Bit Tapper attempted visit with Shirlene Bryan who is listed as Unknown on 04/09/2019. Need/Assessment: ?? At time of visit Shirlene, was unavailable. ?? If Shirlene, and/or family member needs or would like a icu tech visit, please contact the Spiritual Care Department- call [phone] or if more urgent needs, page us through PASS ([phone]). Chaplain Leila Celis [address] Phone [phone] Spiritual Care is available 24 hours a day. Chaplains are available 24 hours a day. For routine consults please call and leave a message with the Spiritual Care Office ([phone]) and patients will be seen within 24 hours. For all emergent consults page the Sikh or Interfaith on-call Bit Tapper through PAS ([phone]). * Rona Negron CCC-DIE ATTACHING MACHINE TENDER - 04/09/2019 1510 EDT Speech-Language Pathology Contact Note DIE ATTACHING MACHINE TENDER consult received for: Speaking Valve Evaluation. Patient is currently not appropriate for evaluation as he was very fatigued this afternoon. DIE ATTACHING MACHINE TENDER spoke to Florecita (M4 RT) and Sheela (RT) and will plan for DIE ATTACHING MACHINE TENDER and RT to see pt tomorrow morning for Speaking Valve Evaluation. Rona Negron CCC-DIE ATTACHING MACHINE TENDER 04/09/2019 15:10 * Madelyn Knowles, PT - 04/09/2019 1508 EDT Rehabilitation Therapy Acute Therapies [facility] Physical Therapy Encounter Note Date of Service: 04/09/2019 Subjective/Objective Subjective Patient on trach collar without speaking valve. Wrote out on paper I am tired but I will try. Objective Intervention completed today: Time: 1300 Total treatment time: 25 minutes. Timed code treatment minutes: 25 Vital signs: Sitting- SPO2 95% on 8L trach collar at 35% FIO2 Standing- SPO2 85-91% on 8L trach collar at 35% FIO2 Sitting- SPO2 93% on 8L trach collar at 35% FIO2 Therapeutic Activity: Patient sitting in recliner upon entering room. Able to scoot to edge of chair with supervision. Sit>stand with mod Ax2 to RW. Static standing ~3 mins with min contact assist x2 with emphasis on upright posture. Stand>sit with mod Ax2. Patient declined further trials of standing due to fatigue. Therapeutic Exercise: Seated therex x 10 Ankle pumps Long arc quad Marching Patient sitting in recliner with call grayson in hand. Patient/Family Education: Topic: Activity pacing/Energy conservation Assistive device/technique Balance Precautions/protocol Role of therapy Safety Transfers Learner: patient Method: verbal and demonstration Barriers to Learning: none noted Outcome: requires assist and needs practice Team Communication: Consulted with RN before and after treatment with regards to patient status. Assessment/Plan Assessment Patient's overall tolerance to activity continues to be limited due to generalized deconditioning, fatigue, and respiratory status. Continue to recommend BETITO to facilitate maximal functional outcome. Plan Continue per plan of care Recommended Discharge Destination: Sub-acute rehabilitation Recommended Discharge Services: Physical therapy at rehabilitation facility Recommended Equipment Needs: To be determined by next care provider Other recommendations: No other consults recommended at this time Primary Therapist: Pager: [phone] Madelyn Knowles, PT 04/09/2019 15:08 * Reta Al, RD - 04/09/2019 1002 EDT Nutrition reassessment: ?? Medical Summary: on TC x 6 hours Overall - 10.2 L Subjective: na Current Nutrition Orders: TF: Nutren 1.5 at 42 cc/hr + 30 cc prosource TID FW= 60 cc q 4 hr ?? Nutrition Focused Physical Findings: Edema: +1 Digestive Systems: Last BM today Skin: pressure injury coccyx, skin tear ?? Anthropometrics: Height: 71.5 Admission Weight: 70K Current Body Weight: 60.5K today Current BMI 18 Weight Change: - 9.5K ?? Pertinent Medications: Current Facility-Administered Medications: acetaminophen (TYLENOL) tablet 1,000 mg oral Q8H PRN alteplase (CATHFLO ACTIVASE) injection 2 mg intercatheter PRN amino acids-protein hydrolysate (PRO SOURCE NOCARB) packet 30 mL oral BID clonazePAM (KLONOPIN) tablet 0.5 mg oral BID PRN dextrose 50 % solution 12.5-25 g intravenous PRN enoxaparin (LOVENOX) injection 40 mg subcutaneous DAILY ipratropium-albuterol (DUONEB) 0.5 mg-3 mg(2.5 mg base)/3 mL nebulizer solution 3 mL nebulization Q6H PRN magnesium sulfate 2g in D5W 50 ml intravenous PRN melatonin tablet 5 mg oral QHS Multivitamins with minerals + ferrous gluconate (CENTRUM) oral solution 15 mL feeding tube DAILY nicotine (NICODERM CQ) 7 mg/24 hr patch 1 Patch transdermal DAILY nutren 1.5 liquid per g tube CONTINUOUS pantoprazole (PROTONIX) injection 40 mg intravenous BID papain-alpha amylase-cellulase (CLOG ZAPPER) 2-5 mL feeding tube PRN potassium chloride in water infusion 20 mEq intravenous PRN potassium phosphate 3 mMol/mL oral solution 15 mmol oral Daily PRN senna (SENOKOT) tablet 2 Tab oral BID PRN Or sennosides (SENOKOT) syrup 17.6 mg per ng tube BID PRN sodium chloride 0.9 % (flush) flush 10 mL intercatheter WEEKLY sodium chloride 0.9 % (flush) flush 10 mL intercatheter PRN sodium chloride 0.9 % (flush) flush 10 mL intercatheter WEEKLY sodium chloride 0.9 % (flush) flush 20 mL intercatheter PRN Pertinent Labs: Lytes, mg, phos:nl ?? Estimated Nutrition Intake: Receiving full TF past 7 days Reassess nutrition needs based on current wt of ~61K: 1620 masood (BEE x 1.2) 90 gm pro (1.5/kg) ?? Assessment: Wt down a significant 14% since admit likely d/t loss of LBM d/t LOS/metabolic stress and diuresis.Will decrease calories to above by decreasing prosource to BID: 1632 masood/98 gm pro/.76 L FW/day. Donot want to overfeed at this time (promote wt gain) as it can cause hypercarbia, which could delay vent wean. Continue to monitor wt. Add vit D d/t LOS Nutrition Risk Level: High (1) Medical Nutrition Therapy Plan and Recommendations: RD has order writing privileges and will modify the following orders: decrease prosource to BID Monitor wt Recommendations requiring MD orders: Add 1000 units vit D3 daily Reta Rivera Dietitian Pager: [phone] * Shelly Simon, OT - 04/09/2019 0944 EDT The Rehabilitation Therapy Acute Therapies [facility] - Occupational Therapy Encounter Note Date of Service: 04/09/2019 Subjective/Objective SUBJECTIVE: clearly communicating needs via hand gestures and head nod. OBJECTIVE: Time: 8:47 Total treatment time: 23 minutes. Timed code treatment minutes: 23 Interventions included: Therapeutic Exercise : Patient resting in bed at beginning of OT session, alert, motivated to participate in OT session. Patient with good recall and ability to demonstrate I with 2 prior shown UE exercises. Patient required cues for technique for the remaining exercises, otherwise demonstrated appropriatepacing throughout session with brief rests between all proximal UE exercises. Patient performed the following exercises: RUE: Shoulder flexion with A/ROM x 10 reps to ~ 90-100 ?? due to placement of vent tubing Partial overhead press with 1# db x 10 reps Forward chest press x 10 reps AROM Elbow flexion x 10 reps with 1# DB Supination/proantion, wrist flexion,extension x 10 reps each with #10 db [place] exercise sponge x 10 gross grasp LUE: Shoulder flexion with AROM x 10 reps Partial overhead press with 1 # db x 5 reps Forward chest press x 10 reps AAROM Elbow flexion x 10 reps with 1# DB Supination/proantion, wrist flexion,extension x 10 reps each with #10 db [place] exercise sponge x 10 gross grasp Patient remained resting in bed at end of session with call grayson with in reach Vital signs: Position Heart Rate (bpm) Blood Pressure (mmHG) Respiratory Rate (breaths/min) Oxygen Saturation SPO2 Liters of Oxygen Pre: Semi fowlers 70 127/72 27 94% VC AC 35% FiO2 peep 5 Post: Semi fowlers 72 29 94% Patient/Family Education: Topic: Benefits of activity Role of OT Energy conservation exercise program Learner: patient Method: verbal and demonstration Barriers to Learning: none noted Outcome: verbalized understanding, returned demonstration and practice needed Team Communication: With nursing before and after session Assessment/Plan ASSESSMENT: Shirlene continues to show progress each session demonstrating increased ease with UE exercises, general ability to use UE to manage regular call grayson, use of his Yankar. Patient does remains significantly deconditioned and well below his baseline in which he will be in need of rehab oncemedically ready for discharge. PLAN: Continue per plan of care Recommended Discharge Destination: Inpatient rehab Recommended Discharge Services: Occupational therapy at rehabilitation facility Recommended Discharge Equipment: To be determined by next care provider Pager: [phone] SHELLY SIMON OT, 04/09/2019, 9:44 * Florecita Khan, RT - 04/09/2019 0914 EDT Respiratory Progress Note Indications for Respiratory therapy: Trach collar/vent Data Vitals: Heart Rate: 68 BPM, Resp: (!) 32, SpO2: 93 % FIO2/O2 Device: O2 Flow Rate (L/min): 8 l/min, O2 Device: Trach collar, FIO2 %: 35 % RT Orders: Continuous trach status - #8 Familia ALLEN Continuous AC or CPAP/PS ventilation at rest VC-AC Settings are: 610 x 14 + 5 PRN airway clearance PRN trach collar - trials during the day, if using for extended periods of time, discuss with MD, per MD Coto 04/05 Action/Events Patient placed on trach collar at 9:02. Trach care performed. Suctioned for a moderate amount of thick/thin, white secretions. PMV discussed in rounds. Suggested DIE ATTACHING MACHINE TENDER eval. PMV in the near future, discussed with DIE ATTACHING MACHINE TENDER. Mentioned checking tracheal pressures to see where we were at for tomorrow. Red box brought up to room for trial tomorrow. patient suctioned orally and tracheally. Tracheal pressures were 10/-10. Cuff deflated for a bit. Patient was able to phonate but has many secretions. Discussed possible PMV trial tomorrow. Cuff re inflated at 12:20, no distress noted. FLORECITA KHAN, RT 04/09/19 * Michael Thomason MD, MD - 04/09/2019 0651 EDT Critical Care Progress Note Service Date: 04/09/2019 Admit Date: 03/17/2019 9:03 Reason for Admission to ICU: 64 y.o.??male??with a pmhx significant for COPD and tobacco use who was transferred from [facility] 03/17??admitted to the MICU for septic shock and??ARDs??secondaryto presumed pneumonia. Critical and life-threatening events over the past 24 hours: -continues to spike low grade fevers (Tmax: 38.1), blood cultures, urine cultures and CXR ordered -UO: 1L, I/O: +0.8L (04/08) net negative 10L since admission -trach oxygen trial 8 hours yesterday tolerated well Subjective/Objective Subjective Patient reports diffuse body pain secondary to laying in bed all day. He wants to be up out of bed as much as possible. He states every time he's been told he has a temp he just finished exercising. He is happy to have the park out. He denies headache, chest pain, abdominal pain, nausea, vomiting or extremity pain Review of Systems A ten point review of systems was performed. Pertinent positives are listed above, all others are negative Objective temperature 36.4-37.2, Blood pressure 102-123/60-73, HR: 65-79, RR: 18-25, SpO2 96-98 % on VC-AC. Physical Exam Gen: AAOX3, Fatigued and thin male, No acute distress, conversing appropriately nonverbally HEENT: NC/AT, MMM Neck: tracheostomy in place Pulm: Positive for diffuse rhonci, no wheezing CV: regular rate and rhythm, no murmurs, rubs, or gallops, S1 and S2 heard Abd: Soft, non-tender, non-distended, positive bowel sounds, no splenohepatomegaly : No park in place Neuro: No focal deficits, Moving all extremities Ext: No lower extremity edema, good distal pulses, normal cap refill, no clubbing or cyanosis noted Recent Labs 04/07/1944704/08/1952704/09/19420 WBC 5.07 5.57 6.09 HGB 6.6* 8.1* 8.1* HCT 20.5* 25.4* 24.8* PLT 346 423* 439* Recent Labs 04/07/1944704/08/1952704/09/19420 NA 137 136 137 K 3.9 4.2 4.1 CL 108 105 106 CO2 23 24 24 CREATININE 0.78 0.73 0.66 MG 2.0 1.9 1.9 PHOS 3.7 3.5 3.9 Recent Labs 04/07/19 1120 GLUCOSEFINGE 126* CXR 04/08 Findings: Single portable AP view of the chest. ?? Lines/tubes: ??A left PICC line is now seen terminating at the superior cavoatrial junction. Transesophageal tube courses below the diaphragm and the tip is not clearly seen. Endotracheal tube is stable in position. No other lines or tubes are identified. ?? Soft tissues and bones: No significant soft tissue or osseous abnormalities. ?? Cardiac and mediastinal contours: The cardiac mediastinal silhouette is within normal limits. ?? Lungs: Patchy airspace opacities in the mid and basilar lungs is grossly stable from prior. No other significant change. ?? Pleura: No evidence of pneumothorax or definite pleural fluid. ?? Impression: Multifocal pneumonia, unchanged from prior. I have personally reviewed the images and the above interpretation and agree with the findings. Assessment/Plan Assessment 64 y.o.??male??with a pmhx significant for COPD and tobacco use who was transferred from [facility] 03/17??admitted to the MICU for septic shock and??ARDs??secondary to presumed pneumonia. On arrival he was also found to have metabolic acidosis, AF with RVR, SIRISHA, and volume overload. Hospital course complicated by acute decompensation (03/20) with HD instability and hemorrhagic shock. Tracheostomy placed 03/28. He now remains HD stable.??Patient was tachypneic 04/06 with increased wob likely secondary to aggressive TC trials now improved with increased Vent time. He continues to spike low grade fevers (38.0- 38.4). CXR 04/08 reveals no acute changes. Blood cultures and urine cultures pen ding. Park removed 04/08.??He is participating in PT/OT and communicating via writing. Plan Pulmonary ?# Acute hypoxic respiratory failure with ARDS secondary to pneumonia,??volume overload, and COPD (empysema seen on CT).??Increased RR overnight w/o O2 desats.??Bicarb 22 (wnl) unlikely due to derangements in pH. CXR on 04/08 shows no acute changes. His respiratory distress has improved over last couple of days since decreasing trach collar trial time with increased vent time. ??Respiratory distress likely secondary to aggressive TC trials in the setting of injured lungs and increased anxiety. He has improved with VC-AC. Resumed trach collar trials 04/07. Eight hour TC trial 04/08 went well - TC trial today as tolerated -??clonazepam BID PRN for anxiety -DIE ATTACHING MACHINE TENDER following: speaking/swallowing trach valve ordered per recommendation from DIE ATTACHING MACHINE TENDER??when he meets eligibility. I will reach out about letting down cuff vs PMV -PT/OT??following ?? #COPD -Duonebs q6h PRN ?? Cardiac #AFib with RVR (now resolved).??Most likely acute secondary to sepsis/ acute infection. He remains in NSR.??Mg 04/08: 1.9 Plan:?? -Monitor on Tele.?? -Continue to follow Mg and replete Mg as needed ?? #Shock: Resolved. Patient is now HD stable ? Renal #Acute Renal Failure: Resolved. Good UOP, Cr??(0.66) and K+ wnl .??Patient net??even.?? -strict I &O -park removed yesterday -daily lytes ? #Hyponatremia: Resolved. Na+ 132 (04/05) now up to 137 (04/08) -resolved with decrease in free water -daily lytes ? # Metabolic Acidosis: improved from 18 (04/04) to??24??(04/09).?? Resolved -continue to monitor daily lytes -rectal tube removed 04/06 ? GI Nutrition #Upper GI Bleed: resolved 03/20. Rectal tube removed -PPI BID: per conversation with GI plan is to continue PPI BID for 4 weeks and then transition to qd. His endoscopy showed diffuse ulcerations in stomach and duodenum -nutritional supplement liquid -multivitamin -diet NPO ?? Infectious Disease ?#Sepsis 2/2 left lower PNA and MSSA bacteremia: Presumed community acquired.??Uptrending fever curve started on 04/05 With periodic spikes over last few days. 04/08 fever spiked in afternoon to 38.1. Afebrile overnight. CXR 04/08 demonstrated no acute changes. WBC wnl. . - Completed 14-day course antibiotics - PICC replaced 04/06 -removed park 04/08 - follow blood cultures and urine cultures ?? Hematologic #Acute blood loss anemia s/p 1U pRBC 04/07 for HgB 6.6.? Etiology of drop unclear??patient does??not show signs of active bleedin and remains clinically stable. Likely 2/2 to phlebotomy, bone marrow suppression from critical illness, and chronic anemia. Now stable at 8.1 -Transfuse if HgB <7??or signs of Hemodynamic instability?? -CBC daily ?? Neurologic # Acute??Encephalopathy: Likely delirium. Now resolved. Alert, awake, and following commands. Olanzapine and ketamine d/c 04/03 -Melatonin qHS -encourage patient to sit up and out of bed in??recliner for improved mood when trach collar trialsresume -continue PT -clonazepam BID PRN ?? Endocrine?? -??POC glucose d/c 04/04 as not requiring supplemental insulin in >48h ?? Skin: pressure wound status quo -closely followed by nursing -wound ? Lines -PICC -PIV ?? Prophylaxis ?- GI -??PPI - DVT -??Enoxparin ?? Communication Code Status:??Limitation of Treatment. ?? Clinical Condition: critical ?? Rounding checklist completed Dorinda Parada, MS4 Pager: [phone] 04/09/2019 10:58 Attending attestation statement: I saw and examined the patient with the resident and agree with the findings and plans as documented, and as amended in blue. Clinical Condition: Shirlene Bryan is a critically ill 64 y.o. male. Over the past 24 hours, therehas been a high probability of sudden, clinically significant or life threatening deterioration in the patient???s condition, which include the following diagnoses which I have managed: Active Problems: Atrial fibrillation with RVR (HCC-CMS) Acute respiratory failure with hypoxia ([facility]-CMS) Septic shock ([facility]-CMS) ARDS (adult respiratory distress syndrome) (HCC-CMS) SIRISHA (acute kidney injury) (HCC-CMS) Anemia Thrombocytopenia (HCC-CMS) Bacteremia Fever Encephalopathy Critical Care time was provided in the form of interventions to treat and prevent further life threatening deterioration of the patient???s condition including: Observation before/during/after ventilator weaning, Management of pain and sedation, Fluid and electrolyte management, Management of vasopressors and Management of inotropic agents, and high complexity decision making regarding need for (re) intubation and the need for critical procedures, such as: central line . My bedside involvement was required to monitor and direct the critical care that has been provided.Exclusive of procedures, my critical care time is 35 minutes. Michael Thomason MD MICU Attending 04/09/2019 * Jerzy Sosa, RT - 04/09/2019 0439 EDT Respiratory Progress Note Indications for Respiratory therapy: Trach/vent Data Vitals: Heart Rate: 78 BPM, Resp: 21, SpO2: 92 % FIO2/O2 Device: O2 Flow Rate (L/min): 10 l/min, , O2 Device: Intubated, FIO2 %: 35 % RT Orders: Continuous trach status - #8 Shiley DIC Continuous AC or CPAP/PS ventilation at rest VC-AC Settings are: 610 x 14 + 5 PRN airway clearance PRN trach collar - trials during the day, if using for extended periods of time, discuss with MD, per MD Coto 04/05 Action/Events Respiratory events; Continue with Q4 Respiratory Care Evaluations for further monitor of patient. Jerzy Sosa, 04/09/19 * Jennifer Cagle MD - 04/08/2019 0651 EDT Critical Care Progress Note Service Date: 04/08/2019 Admit Date: 03/17/2019 9:03 Reason for Admission to ICU: 64 y.o.??male??with a pmhx significant for COPD and tobacco use who was transferred from [facility] 03/17??admitted to the MICU for septic shock and??ARDs??secondaryto presumed pneumonia. Critical and life-threatening events over the past 24 hours: -UO: 2L, I/O: 1, net negative 9.6L since admission -spiked low grade fever overnight Tmax= 38.0 Subjective/Objective Subjective no complaints (not a complainer) this am. He was a little warm last night but no chills, sweats, nopain at PICC line or urethra. No dyspnea and denies problems breathing on trach collar oxygen yesterday. Review of Systems A ten point review of systems was performed. Pertinent positives are discussed above, otherwise negative Objective Blood pressure 116-135/64-76, temperature 38.0-36.9 ??C,, resp. rate 18-25 SpO2 95-98 %. Physical Exam Gen: AAOX3, Fatigued and thin male, No acute distress, conversing appropriately nonverbally HEENT: NC/AT, Moist MMe Pulm: crackles, no wheezing CV: No JVD, no carotid bruits, regular rate and rhythm, no murmurs, rubs, or gallops, S1 and S2 heard Abd: Soft, non-tender, non-distended, positive bowel sounds, no splenohepatomegaly : park in place, draining clear yellow urine Neuro: No focal deficits, Moving all extremities Ext: No lower extremity edema, good distal pulses, normal cap refill, no clubbing or cyanosis noted Recent Labs 04/06/19 0303 04/07/19 0448 04/08/19 0528 WBC 6.51 5.07 5.57 HGB 7.4* 6.6* 8.1* HCT 23.1* 20.5* 25.4* PLT 294 346 423* Recent Labs 04/06/19 0303 04/07/19 0448 04/08/19 0528 NA 135* 137 136 K 3.4* 3.9 4.2 CL 107 108 105 CO2 22 23 24 CREATININE 0.80 0.78 0.73 MG 2.0 2.0 1.9 PHOS 3.9 3.7 3.5 Recent Labs 04/07/19 1120 GLUCOSEFINGE 126* Assessment/Plan Assessment 64 y.o.??male??with a pmhx significant for COPD and tobacco use who was transferred from [facility] 03/17??admitted to the MICU for septic shock and??ARDs??secondary to presumed pneumonia. On arrival he was also found to have metabolic acidosis, AF with RVR, SIRISHA, and volume overload. Hospital course complicated by acute decompensation (03/20) with HD instability and hemorrhagic shock. Tracheostomy placed 03/28. He now remains HD stable.??Patient is tachypneic 04/06 with increased wob likely secondary to aggressive TC trials now improved with increased Vent. Mildly febrile (04/05) and again overnight 04/07 with down trending fever curve this am.??He is participating in PT/OT and communicating via writing. Plan Pulmonary ?# Acute hypoxic respiratory failure with ARDS secondary to pneumonia,??volume overload, and COPD (empysema seen on CT).??Increased RR overnight w/o O2 desats. Bicarb 22 (wnl) unlikely due to derangements in pH. CXR on 04/06 shows no clear change since 03/29. Respiratory distress likely secondary to aggressive TC trials in the setting of injured lungs and increased anxiety. He has improved with VC-AC (FiO2: 35, Vt: 610, PEEP: 5, rate: 14). Four hour TC trial 04/07 went well - TC trial for 6 hours today - clonazepam BID PRN for anxiety -DIE ATTACHING MACHINE TENDER following: speaking/swallowing trach valve ordered per recommendation from DIE ATTACHING MACHINE TENDER when meets eligibility. -PT/OT??following #COPD -Duonebs q6h PRN Cardiac #AFib with RVR (now resolved).??Most likely acute secondary to sepsis/ acute infection. He remains in NSR.??Mg 04/08: 1.9 Plan:?? -Monitor on Tele.?? -Continue to follow Mg and replete Mg as needed ?? #Shock: Resolved. Patient is now HD stable ?? Renal #Acute Renal Failure: Resolved. Good UOP, Cr??(0.80) and K+ wnl .??Patient net??even.?? -strict I &O, park in place -daily lytes ?? #Hyponatremia: Resolved. Na+ 132 (04/05) now up to 136 (04/08) -resolved with decrease in free water -daily lytes ?? # Metabolic Acidosis: improved from 18 (04/04) to??22??(04/08).?? Resolved -continue to monitor daily lytes -rectal tube removed / GI Nutrition #Upper GI Bleed: resolved 03/20. Rectal tube removed -PPI BID -nutritional supplement liquid -multivitamin -d/c metamucil -diet NPO Infectious Disease ?#Sepsis 2/2 left lower PNA and MSSA bacteremia: Presumed community acquired.??Uptrending fever curve on 04/05 and again overnight 04/07, Tmax 38.0. WBC wnl. Patient asymptomatic???. CXR 04/06 reveals no acute changes but showed incorrect placement of PICC (looped in right internal jugular vein terminating in right brachiocephalic vein). - Completed 14-day course antibiotics - PICC replaced 04/06 -remove park today - if fever spikes continue or patient develops symptoms. ?? Hematologic #Acute blood loss anemia s/p 1U pRBC 04/07 for HgB 6.6.? Etiology of drop unclear??patient does??not show signs of active bleedin and remains clinically stable. Likely 2/2 to phlebotomy, bone marrow suppression from critical illness, and chronic anemia -Transfuse if HgB <7??or signs of Hemodynamic instability?? -CBC daily Neurologic # Acute??Encephalopathy: Likely delirium. Now resolved. Alert, awake, and following commands. Olanzapine and ketamine d/c 04/03 -Melatonin qHS -encourage patient to sit up and out of bed in??recliner for improved mood when trach collar trialsresume -continue PT -clonazepam BID PRN Endocrine?? -??POC glucose d/c 04/04 as not requiring supplemental insulin in >48h ?? Skin: pressure wound status quo -closely followed by nursing Lines -PICC -PIV -Park Prophylaxis ?- GI -??PPI - DVT -??Enoxparin ?? Communication Code Status: Limitation of Treatment. ?? Clinical Condition: critical ?? Critical Care Daily Checklist: Completed Dorinda Parada, MS4 Pager: [phone] 04/08/2019 11:54 MICU Attending Shirlene Bryan is a 64 y.o. male with a severe ARDS, status post trach, severe COPD, now slowly weaning from ventilator, but with ongoing low grade fevers Events of last 24 hours: ?? Tolerated trach collar for 4 hours ?? Low grade fever ?? Transfused 1 unit PRBC By System: ?? Neuro: alert and oriented, interacting appropriately. Very weak, likely related to critical illness. Encourage mobilization and PT ?? CVS: Now in NSR with adequate hemodynamics ?? RS: Slowly recovering from ARDS, this is complicated by his severe underlying lung disease, nevertheless continue to work on being on trach collar during the day, and work on PT and strength to faciliate weaning from vent ?? Renal: I:O's:-82cc yesterday Creatinine: 0.73, remove park catheter today to reduce risk of infection ?? ID: Temp: [36.8 ??C (98.2 ??F)-38 ??C (100.4 ??F)] (), WBC 5.57, low grade fever yesterday, no change in resp status, lines look clean, will remove park catheter, low grade fever could be relatedto transfusion ?? GI: tolerating tube feeds, will continue ?? Endocrine: BG 126, will continue to follow ?? Heme: HCT: 25.4, platelets: 423, appropriate increase in HCT with transfusion, no obvious sourceof bleeding, suspect low HCT related to critical illness and multiple blood draws ?? Prophylaxis: enoxaparin and tube feeds ?? My specific acute critical care interventions in the last 24 hours include evaluation and management of acute respiratory failure, fevers, acute anemia, discussion of plans and goals of care with nursing, respiratory therapy, house staff, and patient Jennifer Cagle MD Critical Care Time: 35 mins, exclusive to time for procedures. * Wesley Ott, RT - 04/08/2019 0320 EDT Respiratory Progress Note Indications for Respiratory therapy: Trach/vent Data Vitals: Heart Rate: 76 BPM, Resp: 25, SpO2: 96 % FIO2/O2 Device: O2 Flow Rate (L/min): 10 l/min, , O2 Device: Intubated, FIO2 %: 35 % RT Orders: Continuous trach status - #8 Shiley DIC Continuous AC or CPAP/PS ventilation at rest VC-AC Settings are: 610 x 14 + 5 PRN airway clearance PRN trach collar - trials during the day, if using for extended periods of time, discuss with MD, per MD Coto 04/05 Action/Events Respiratory events; Remains on VC/AC settings as noted above on 35% (was on a 35% trach collar earlier in the evening for 4 hours per report from prior RT on). Breath sounds coarse and diminished on pretreatment chest ascultation. Suctioning out small amounts of white thin/thick sputum in-line. Patient self suctions with oral yankauer. Improved aeration following suctioning. Minute ventilation varying between 12 and 16 L/min at times. I-time shorted to .90 shortly after midnight to aid with exhalation secondary to patient's elevated respiratory rate while awake (RR notedin upper 20s to lower 30s occasionally). Less of an issue during later portion of the morning once patient has fallen asleep. Plan is to rest patient for remainder of morning on VC/AC so additional trach collar trials may be attempted. Continue with Q4 Respiratory Care Evaluations for further monitor of patient. RT BENNIE 04/08/19 * Frank Calderon, RT - 04/07/2019 1701 EDT Respiratory Progress Note Indications for Respiratory therapy: Trach Data Vitals: Heart Rate: 90 BPM, Resp: 20, SpO2: 97 % FIO2/O2 Device: O2 Flow Rate (L/min): 10 l/min, , O2 Device: Trach collar, FIO2 %: 35 % RT Orders: Continuous #8 Shiley CHRISTEN, AC 610 x 14 35% +5 PRN ACT (IPV) Trach collar as tolerated Action/Events Respiratory events; PT completed 35% TCT x 4 hrs without inciden then placed back on vent. Occasionally tachypneaic. Suction for moderate amounts of amounts of white thick secretions. Response/Results Weaning and Toleration of treatments; Wean as tolerated RT Starla 04/07/19 * Jennifer Cagle MD - 04/07/2019 5318 EDT Critical Care Progress Note Service Date: 04/07/2019 Admit Date: 03/17/2019 9:03 Reason for Admission to ICU: 64 y.o.??male??with a pmhx significant for COPD and tobacco use who was transferred from [facility] 03/17??admitted to the MICU for septic shock and??ARDs??secondaryto presumed pneumonia. Critical and life-threatening events over the past 24 hours: -NAEO Subjective/Objective Subjective - responds with thumbs up when asked how he is doing - denies any complaints Review of Systems A ten point review of systems was performed. Pertinent positives are listed above, all others are negative: Objective Blood pressure 92-128/52-64, HR 69-78, temperature (!) 35.3 ??C (95.5 ??F), temperature source Tympanic, resp. rate 31-35 ,SpO2 90-100 %. Physical Exam Gen: AAOX4, Fatigued thin male, No acute distress, conversing appropriately (nonverbally) HEENT: NC/AT, no scleral icterus, moist MM Pulm: diffuse crackles, no wheezes appreciated CV: regular rate and rhythm, no murmurs, rubs, or gallops, S1 and S2 heard Abd: Soft, non-tender, non-distended, positive bowel sounds, no splenohepatomegaly : Park in place, draining clear yellow urine Neuro: No focal deficits, Moving all extremities Ext: No lower extremity edema, good distal pulses, normal cap refill, no clubbing or cyanosis noted Recent Labs 04/05/19 0539 04/06/19 0303 04/07/19 0448 WBC 6.34 6.51 5.07 HGB 7.7* 7.4* 6.6* HCT 23.3* 23.1* 20.5* PLT 231 294 346 Recent Labs 04/05/19 0539 04/06/19 0303 04/07/19 0448 NA 132* 135* 137 K 3.5 3.4* 3.9 CL 106 107 108 CO2 19* 22 23 CREATININE 0.74 0.80 0.78 MG 2.0 2.0 2.0 PHOS 3.3 3.9 3.7 Recent Labs 04/04/19 1151 04/04/19 1831 04/04/19 2331 04/05/19 0536 GLUCOSEFINGE 124* 117* 117* 130* Assessment/Plan Assessment 64 y.o.??male??with a pmhx significant for COPD and tobacco use who was transferred from [facility] 03/17??admitted to the MICU for septic shock and??ARDs??secondary to presumed pneumonia. On arrival he was also found to have metabolic acidosis, AF with RVR, SIRISHA, and volume overload. Hospital course complicated by acute decompensation (03/20) with HD instability and hemorrhagic shock. Tracheostomy placed 03/28. He now remains HD stable.??Patient is tachypneic overnight with increased wob likely secondary to aggressive TC trials. Mildly febrile (04/05) with down trending fever curve this am.??He is participating in PT/OT and communicating via writing. Plan Pulmonary ?# Acute hypoxic respiratory failure with ARDS secondary to pneumonia,??volume overload, and COPD (empysema seen on CT). Increased RR overnight w/o O2 desats. On VC-AC (FiO2: 35+, Vt: 610+, PEEP:5+ ). Bicarb 22 (wnl) unlikely due to derangements in pH. CXR shows no clear change since 03/29. Respiratory distress likely secondary to aggressive TC trials in the setting of injured lungs and increased anxiety. - allow rest with no TC trials today for no more than 8 hours, if continuing to have difficulty with TC trials consider further infectious workup - clonazepam BID PRN for anxiety -DIE ATTACHING MACHINE TENDER following: speaking/swallowing trach valve ordered per recommendation from DIE ATTACHING MACHINE TENDER when meets eligibility. -PT/OT following ?? #COPD -Duonebs q6h PRN ??tolerated 4 hours on trach collar, did well, but started to feel tired, so put back on ventilatior, would try for 6 hours tomorrow Cardiac #AFib with RVR (now resolved).??Most likely acute secondary to sepsis/ acute infection. He remains in NSR.??Mg 04/04: 2.0 Plan:?? -Monitor on Tele.?? -Continue to follow Mg and replete Mg as needed ?? #Shock: Resolved. Patient is now HD stable ?? Renal #Acute Renal Failure: Resolved. Good UOP, Cr??(0.84) and K+ .??Patient net??even.?? -strict I &O, park in place -daily lytes -decreased free water ?? #Hyponatremia: Na+ 132 (04/05) now up to 135 (04/06) -resolving with decrease in free water -daily lytes #Hypokalemia: mild hypokalemia (K+ 3.4) 04/06 -replete PRN -daily lytes ?? # Metabolic Acidosis: improved from 18 (04/04) to 19 (04/05). Today wnl at 22. Likely secondary to GI loss. -continue to monitor daily lytes -rectal tube removed 04/04? GI Nutrition #Upper GI Bleed: resolved 03/20. Rectal tube removed -PPI BID -nutritional supplement liquid -multivitamin -d/c metamucil -diet NPO ?? Infectious Disease ?#Sepsis 2/2 left lower PNA and MSSA bacteremia: Presumed community acquired.??Uptrending fever curve on 04/05, Tmax 38.0. Now downtrending. WBC wnl. Patient asymptomatic. CXR 04/06 reveals no acute changes but shows incorrect placement of PICC (looped in right internal jugular vein terminating i n right brachiocephalic vein) - Completed 14-day course antibiotics - PICC reordered per recommendations from PICC charge nurse -acetaminophen q8h prn - if spike in fever will repeat cultures. ?? Hematologic #Acute blood loss anemia s/p 3U pRBC, 1 unit of platelets on 03/24 and 1U pRBC 03/27.?Drop in HgB from 8.2 (04/03) to 7.2 (04/04) to 7.7 (04/05). Now down to 7.4 (04/06). Etiology of drop unclear patient does not show signs of active bleeding and remains clinically stable.-likely 2/2 to phlebotomy and bone marrow suppression from critical illness - Transfused 1 unit pRBCs this morning for Hb of 6.6, thought to be due to chronic anemia and frequent blood draws. No evidence of bleeding. -Transfuse if HgB <7??or signs of Hemodynamic instability?? -CBC daily ?? Neurologic/Pysch # Acute??Encephalopathy: Likely delirium. Now resolved. Alert, awake, and following commands. Olanzapine and ketamine d/c 04/03 -Melatonin qHS -encourage patient to sit up and out of bed in??recliner for improved mood when trach collar trialsresume -continue PT -clonazepam BID PRN ?? Endocrine - POC glucose d/c 04/04 as not requiring supplemental insulin in >48h ?? Skin: pressure wound status quo -closely followed by nursing Lines -PICC -PIV -Park Prophylaxis - GI -??PPI - DVT -??Enoxparin ?? Communication Code Status: Limitation of Treatment. Clinical Condition: critical Critical Care Daily Checklist: Completed Jonatan Martinez, PGY-3, Contact via [employer] 04/07/2019 8:47 Attending attestation statement: I saw and examined the patient with the resident and agree with the findings and plans as documented, and as amended in blue. Clinical Condition: Shirlene Bryan is a critically ill 64 y.o. male. Over the past 24 hours, therehas been a high probability of sudden, clinically significant or life threatening deterioration in the patient???s condition, which include the following diagnoses which I have managed: Active Problems: Atrial fibrillation with RVR (HCC-CMS) Acute respiratory failure with hypoxia (HCC-CMS) ARDS (adult respiratory distress syndrome) (HCC-CMS) Anemia Critical Care time was provided in the form of interventions to treat and prevent further life threatening deterioration of the patient???s condition including: Management of mechanical ventilation, Fluid and electrolyte management and GI prophylaxis, and high complexity decision making regarding we aning from mechanical ventilation . My bedside involvement was required to monitor and direct the critical care that has been provided.Exclusive of procedures, my critical care time is 40 minutes. Jennifer Cagle MD MICU Attending 04/07/2019 * Flex Flores MD - 04/07/2019 0536 EDT Brief Progress Note: Hemoglobin 6.6. No active clinical signs of bleeding. Suspects dropping hemoglobin secondary to anemia of chronic disease and frequent lab draws. Flex Flores MD * Wesley Ott RT - 04/07/2019 0336 EDT Respiratory Progress Note Indications for Respiratory therapy: Trach/vent Data Vitals: Heart Rate: 112 BPM, Resp: 24, SpO2: 96 % FIO2/O2 Device: O2 Flow Rate (L/min): 10 l/min, , O2 Device: Intubated, FIO2 %: 30 % RT Orders: Continuous trach status - #8 Shiley DIC Continuous AC or CPAP/PS ventilation at rest VC-AC Settings are: 610 x 14 + 5 PRN airway clearance PRN trach collar - trials during the day, if using for extended periods of time, discuss with MD, per MD Coto 04/05 Action/Events Respiratory events; Remains on VC/AC settings as noted above on 35%, plan made to rest patient on these settings overnight. 1930 - Breath sounds notable for end-expiratory wheezes and coarse crackles on chest ascultation. Duoneb administered and in-line suctioning produced moderate amounts of white thin/thick sputum. Improved aeration following intervention. 2103 - [place] changed to 0 for patient comfort on ventilator. Rate maintained in mid to upper 20s attimes following setting alteration. 0018 - Expiratory wheezes and diminished breath sounds noted on chest ascultation. Another duoneb was administered. Improved aeration following digital associate media director. Otherwise, continues to rest comfortably on current vent settings. 0330 - Wheezes no longer present, patient continuing to rest comfortably on vent settings. Inner cannula changed. Per discussion with MD Flores, plan is to rest patient on full support for the remainder of the morning and hold off on any weaning at this time. Continue with Q4 Respiratory Care Evaluations for further monitor of patient. RT BENNIE 04/06/19 * Eliel Oswald, PT - 04/06/2019 0098 EDT Rehabilitation Therapies [facility] Note Date of Service: 04/06/2019 Patient not seen today. Sleeping soundly and on the vent. Discussed with RN who had previously assisted patient to dangle on side of bed and agreed to lift him to chair when appropriate. Will follow up next week. [id number] Eliel Oswald, PT 04/06/2019 16:23 * Melba Perez - 04/06/2019 1616 EDT I met with patient and Lawanda this afternoon, gave Lawanda a gas card from [employer]. Patientwas not up for working on his bills today. Lawanda will try to help him next week. NADIR HeSW * Kori Doan CCC-DIE ATTACHING MACHINE TENDER - 04/06/2019 1606 EDT Speech-Language Pathology Contact Note DIE ATTACHING MACHINE TENDER returned to re-assess readiness for a speaking valve trial. Patient is currently asleep and on the ventilator, spoke with RT Paola. Pt with high RR in the AM anddecision was made to keep pt on vent support for the day. Comments/Considerations: DIE ATTACHING MACHINE TENDER to re-assess readiness early next week. GAYLE Demarco 04/06/2019 16:06 Fridays: Pager #[phone] DIE ATTACHING MACHINE TENDER Acute Care Pgr #[phone] * Reta Al RD - 04/06/2019 0955 EDT No BM yesterday, will d/c psyllium Reta Al RD * Shelly Simon, OT - 04/06/2019 0939 EDT The Rehabilitation Therapy Acute Therapies [facility] - Occupational Therapy Encounter Note Date of Service: 04/06/2019 Subjective/Objective SUBJECTIVE: patient nodding yes to therapy this am OBJECTIVE: Time: 9:05 Total treatment time: 25 minutes. Timed code treatment minutes: 25 Interventions included: Therapeutic Exercise : Patient resting in bed at beginning of OT session, alert, motivated to participate in OT session. Introduced pink exercise sponge(medium) and 1# dumb grayson. Patient required cues for technique, otherwise demonstrated appropriate pacing throughout session with brief rests between all proximal UE exercises. Patient performed the following exercises: RUE: Shoulder flexion with A/AAROM x 10 reps due to placement of vent tubing Forward chest press x 10 reps AROM Elbow flexion x 10 reps with 1# DB Supination/proantion, wrist flexion,extension x 10 reps each with #10 db [place] exercise sponge x 10 gross grasp and lateral pinch LUE: Shoulder flexion with AAROM x 10 reps Forward chest press x 10 reps AAROM Elbow flexion x 10 reps with 1# DB Supination/proantion, wrist flexion,extension x 10 reps each with #10 db [place] exercise sponge x 10 gross grasp and lateral pinch Patient remained resting in bed at end of session with call grayson with in reach Vital signs: Position Heart Rate (bpm) Blood Pressure (mmHG) Respiratory Rate (breaths/min) Oxygen Saturation SPO2 Liters of Oxygen Pre: Semi fowlers 77 111/61 28 92% CPAP 5 PS , 5 peep 35% FiO2 Post: Semi fowlers 85 - 31 94% CPAP 5 PS , 5 peep 35% FiO2 Patient/Family Education: Topic: Benefits of activity Role of OT exercise program Learner: patient Method: verbal and demonstration Barriers to Learning: none noted Outcome: verbalized understanding and practice needed Team Communication: With nursing before and after session Assessment/Plan ASSESSMENT: Shirlene continues to fully participate in therapy session, with good carryover throughout session. Today progressed to use of light weight for UE exercises in preparation for gaining UE strength for ADL carryover. PLAN: Continue per plan of care Recommended Discharge Destination: Inpatient rehab Recommended Discharge Services: Occupational therapy at rehabilitation facility Recommended Discharge Equipment: To be determined by next care provider Pager: [phone] SHELLY SIMON OT, 04/06/2019, 9:39 * Paola Mendez, RT - 04/06/2019 0742 EDT Respiratory Progress Note Indications for Respiratory therapy: Trach/vent Data Vitals: Heart Rate: 72 BPM, Resp: 28, SpO2: 95 % FIO2/O2 Device: O2 Flow Rate (L/min): 10 l/min, , O2 Device: Intubated, FIO2 %: 30 % RT Orders: Continuous trach status - #8 Shiley DIC Continuous AC or CPAP/PS ventilation at rest PRN airway clearance PRN trach collar - trials during the day, if using for extended periods of time, discuss with MD, per MD Coto 04/05 Action/Events Respiratory events; Patient remains on CPAP/PS 5/5 30% this morning. RR in mid-high 30s at rest. Although patient has been tachypneic at baseline, will discuss with MD before trach collar trial today. Plan to coordinate TC trial with sedation meds for anxiety/tachypnea 1050 - Patient placed back in AC ventilation by MD Coto . RR immediately noted to drop from 40to low 30s. Decision made to not trial trach collar today and to rest on full vent support. 1330 - patient looking much more comfortable on AC settings. RR in low 20s at rest. RT Caren 04/06/19 * Jocelyn Coto MD - 04/06/2019 0633 EDT Critical Care Progress Note Service Date: 04/06/2019 Admit Date: 03/17/2019 9:03 Reason for Admission to ICU: 64 y.o.??male??with a pmhx significant for COPD and tobacco use who was transferred from [facility] 03/17??admitted to the MICU for septic shock and??ARDs??secondaryto presumed pneumonia. Critical and life-threatening events over the past 24 hours: -mild fever Tmax: 37.8). Currently afebrile -UO: 1.6L, I/O: +.0.3L (04/05/2019), net negative 5.5L since admission -tachypenic with increased WOB Subjective/Objective Subjective no pain/discomfort. Denies fevers, chills, sweats. Feeling anxious. Endorses heart palpitations dylan little dyspnea. ROS is otherwise negative. Wants a popsicle. Not sure about BM since rectal tube removed Review of Systems A ten point review of systems was performed. Pertinent positives are listed above, all others are negative: Objective Blood pressure 92-128/52-64, HR 69-78, temperature (!) 35.3 ??C (95.5 ??F), temperature source Tympanic, resp. rate 31-35 ,SpO2 90-100 %. Physical Exam Gen: AAOX4, Fatigued thin male, No acute distress, conversing appropriately (nonverbally) HEENT: NC/AT, no scleral icterus, moist MM Pulm: diffuse crackles, no wheezes appreciated CV: regular rate and rhythm, no murmurs, rubs, or gallops, S1 and S2 heard Abd: Soft, non-tender, non-distended, positive bowel sounds, no splenohepatomegaly : Park in place, draining clear yellow urine Neuro: No focal deficits, Moving all extremities Ext: No lower extremity edema, good distal pulses, normal cap refill, no clubbing or cyanosis noted Recent Labs 04/04/19 0401 04/05/19 0539 04/06/19 0303 WBC 5.21 6.34 6.51 HGB 7.3* 7.7* 7.4* HCT 22.4* 23.3* 23.1* PLT 172 231 294 Recent Labs 04/04/19 0401 04/05/19 0539 04/06/19 0303 NA 134* 132* 135* K 3.8 3.5 3.4* CL 110 106 107 CO2 18* 19* 22 CREATININE 0.84 0.74 0.80 MG 2.0 2.0 2.0 PHOS 3.3 3.3 3.9 Recent Labs 04/04/19 0623 04/04/19 1151 04/04/19 1831 04/04/19 2331 04/05/19 0536 GLUCOSEFINGE 114* 124* 117* 117* 130* CXR 04/06/2019 (pending) Impression: 1. Continued changing patterns of bilateral multifocal pneumonia. Overall appears similar or slightly worse in appearance compared with 7 days prior, which could represent true worsening of disease versus differences in technical factors of acquiring a radiograph on a ventilated patient. 2. Interval change in right-sided PICC, which now loops in the right internal jugular vein and terminates in the right brachiocephalic vein. Assessment/Plan Assessment 64 y.o.??male??with a pmhx significant for COPD and tobacco use who was transferred from [facility] 03/17??admitted to the MICU for septic shock and??ARDs??secondary to presumed pneumonia. On arrival he was also found to have metabolic acidosis, AF with RVR, SIRISHA, and volume overload. Hospital course complicated by acute decompensation (03/20) with HD instability and hemorrhagic shock. Tracheostomy placed 03/28. He now remains HD stable.??Patient is tachypneic overnight with increased wob likely secondary to aggressive TC trials. Mildly febrile (04/05) with down trending fever curve this am.??He is participating in PT/OT and communicating via writing. Plan Pulmonary ?# Acute hypoxic respiratory failure with ARDS secondary to pneumonia,??volume overload, and COPD (empysema seen on CT). Increased RR overnight w/o O2 desats. Remained tachypneic on SPN-CPAP, now on VC-AC (FiO2: 35+, Vt: 610+, PEEP:5+ ) with improved RR. Bicarb 22 (wnl) unlikely due to derangements in pH. CXR shows no clear change since 03/29. Respiratory distress likely secondary to aggressive TC trials in the setting of injured lungs and increased anxiety. - allow rest with no TC trials today - as above doubt new infectious complication as fevers improving and sputum stable but given persistent CXR abnormalities reconsider tomorrow if persistent vent dependence. -started on clonazepam BID PRN for anxiety -DIE ATTACHING MACHINE TENDER following: speaking/swallowing trach valve ordered per recommendation from DIE ATTACHING MACHINE TENDER when meets eligibility. -PT/OT following ?? #COPD -Duonebs q6h PRN ?? Cardiac #AFib with RVR (now resolved).??Most likely acute secondary to sepsis/ acute infection. He remains in NSR.??Mg 04/04: 2.0 Plan:?? -Monitor on Tele.?? -??D/C'd??Amiodarone 200 mg QD -Continue to follow Mg and replete Mg as needed ?? #Shock: Resolved. Patient is now HD stable ?? Renal #Acute Renal Failure: Resolved. Good UOP, Cr??(0.84) and K+ .??Patient net??even.?? -strict I &O, park in place -daily lytes -decreased free water ?? #Hyponatremia: Na+ 132 (04/05) now up to 135 (04/06) -resolving with decrease in free water -daily lytes #Hypokalemia: mild hypokalemia (K+ 3.4) 04/06 -repleted this am with potassium choloride -daily lytes ? # Metabolic Acidosis: improved from 18 (04/04) to 19 (04/05). Today wnl at 22. Likely secondary to GI loss. -continue to monitor daily lytes -rectal tube removed 04/04? GI Nutrition #Upper GI Bleed: resolved 03/20. Rectal tube removed -PPI BID -nutritional supplement liquid -multivitamin -d/c metamucil -diet NPO -d/c??vitamin C ?? Infectious Disease ?#Sepsis 2/2 left lower PNA and MSSA bacteremia: Presumed community acquired.??Uptrending fever curve on 04/05, Tmax 38.0. Now downtrending. WBC wnl. Patient asymptomatic. CXR 04/06 reveals no acute changes but shows incorrect placement of PICC (looped in right internal jugular vein terminating i n right brachiocephalic vein) - Completed 14-day course antibiotics - PICC reordered per recommendations from PICC charge nurse -acetaminophen q8h prn - if spike in fever will repeat cultures. ?? Hematologic #Acute blood loss anemia s/p 3U pRBC, 1 unit of platelets on 03/24 and 1U pRBC 03/27.?Drop in HgB from 8.2 (04/03) to 7.2 (04/04) to 7.7 (04/05). Now down to 7.4 (04/06). Etiology of drop unclear patient does not show signs of active bleeding and remains clinically stable.-likely 2/2 to phlebotomy and bone marrow suppression from critical illness -Transfuse if HgB <7??or signs of Hemodynamic instability?? -CBC daily ?? Neurologic/Pysch # Acute??Encephalopathy: Likely delirium. Now resolved. Alert, awake, and following commands. Olanzapine and ketamine d/c 04/03 -Melatonin qHS -encourage patient to sit up and out of bed in??recliner for improved mood when trach collar trialsresume -continue PT -clonazepam BID PRN ?? Endocrine - POC glucose d/c 04/04 as not requiring supplemental insulin in >48h ?? Skin: pressure wound status quo -closely followed by nursing Lines -PICC -PIV -Park Prophylaxis - GI -??PPI - DVT -??Enoxparin ?? Communication Code Status: Limitation of Treatment. Clinical Condition: critical Critical Care Daily Checklist: Completed Dorinda Parada, MS4 Pager: [phone] 04/06/2019 13:36 Attending attestation statement: I saw and examined the patient with the resident and agree with the findings and plans as documented, and as amended in blue. Clinical Condition: Shirlene Bryan is a critically ill 64 y.o. male. Over the past 24 hours, therehas been a high probability of sudden, clinically significant or life threatening deterioration in the patient???s condition, which include the following diagnoses which I have managed: Active Problems: Acute respiratory failure with hypoxia ARDS Failure to wean from ventilator Anemia Critical Care time was provided in the form of interventions to treat and prevent further life threatening deterioration of the patient???s condition including: Management of mechanical ventilation, Management of pain and sedation and Fluid and electrolyte management, and high complexity decision making regarding candidacy for extubation and need for additional imaging studies and / or interventional radiology interventions and the need for critical procedures, such as: central line . My bedside involvement was required to monitor and direct the critical care that has been provided.Exclusive of procedures, my critical care time is 30 minutes. Jocelyn Coto MD MICU Attending 04/06/2019 * Sinyd Christensen, RT - 04/06/2019 0522 EDT Respiratory Progress Note Indications for Respiratory therapy: Trach Data Vitals: Heart Rate: 75 BPM, Resp: 15, SpO2: 98 % FIO2/O2 Device: O2 Flow Rate (L/min): 10 l/min, , O2 Device: Intubated, FIO2 %: 40 % RT Orders: Continuous #8 Shiley CHRISTEN, 610 *14 p5 PRN ACT (IPV) Trach collar as tolerated Action/Events Respiratory events; Pt rested on vent overnight. Tachypneic with RR in low to mid 30s sustained even while sleeping. Suction for small amounts of white thick secretions. Response/Results Weaning and Toleration of treatments; Wean as tolerated SINDY CHRISTENSEN, RT 04/06/19 * Kori Doan CCC-DIE ATTACHING MACHINE TENDER - 04/05/2019 1445 EDT Speech-Language Pathology Contact Note DIE ATTACHING MACHINE TENDER consult received for: Communication-Cognitive Evaluation and Speaking Valve Evaluation. Patient is currently not able to participate in evaluation - spoke with RT Kathy - he is needing rest on the vent. Comments/Considerations: Speech-Language Pathologist to return within 24 hours. Kori Doan CCC-DIE ATTACHING MACHINE TENDER 04/05/2019 14:45 * Eliel Oswald, PT - 04/05/2019 1350 EDT Rehabilitation Therapies [facility] Date of Service: 04/05/2019 Patient not seen by PT today secondary to discussion with nursing and respiratory- patient needing rest on vent for now. Will follow up tomorrow. [id number] Eliel Oswald, PT 04/05/2019 13:50 * Quynh Singer, RT - 04/05/2019 1255 EDT Respiratory Progress Note Indications for Respiratory therapy: Trach Data Vitals: Heart Rate: 82 BPM, Resp: 24, SpO2: 97 % FIO2/O2 Device: O2 Flow Rate (L/min): 10 l/min, , O2 Device: (Trach), FIO2 %: 36 % RT Orders: Continuous #8 Familia CHRISTEN, 610 *14 p5 PRN ACT (IPV) Trach collar as tolerated. Action/Events Respiratory events; trach care and inner cannula changed 0800. Pt was on TC overnight. Pt appeared very tired, stressed, and anxious this morning. Discussed with patient placing him on the vent to rest. Pt felt apprehensive as if a drawback to his healing. Explained to patient it is important to rest on the vent so he doesn't have a set back or derecruitment of lungs. Pt obliged to placing on vent around 1000. Pt placed on CPAP/PS. Pt did well until about 1200 where his MV went in mid-20's and his RR in the 30's. Placing patient on AC did not alleviate this as he was breathing over the settings and seemed to do better on CPAP/PS. Discussed with RN and Dr. Coto about giving patient some mild sedation as he is feeling anxious. Aretha PATEL asked patient if he was feeling anxious and would like something to settle him a bit and he concurred. Dr. Coto would like patient rested for now on vent and through the night. Pt is to be rested nightly on AC or PS and utilize TC during the day as tolerated. Pt can gradually increase time on TC and if placing pt on this NOC, MD should be consulted first. Pt has copious white; clear secretions today. RT Juan Ramon 04/05/19 * Shelly Simon, OT - 04/05/2019 1150 EDT The Rehabilitation Therapy Acute Therapies [facility] - Occupational Therapy Encounter Note Date of Service: 04/05/2019 Subjective/Objective SUBJECTIVE: my left arm has always been weaker, childhood injury patient stated in writing OBJECTIVE: Time: 10:20 Total treatment time: 25 minutes. Timed code treatment minutes: 25 Interventions included: Therapeutic Exercise: Patient resting in bed at beginning of OT session, alert and able to follow all instructions . Patient able to communicate by gesture, mouthing of words as well as writing down information. -assessed patients ability to use standard call grayson in room. Patient demonstrating no difficulty using call grayson with the tap grayson that was in place. - led brief discussion in regards to importance of pacing/rest during activity, patient nodded in an understanding Patient participated in the following therex activities after verbal and visual demonstrating, required intermittent correction of technique during session. RUE: Shoulder flexion x 10 reps with near full range Overhead press x 10 reps Forward chest press x 10 reps Elbow flexion x 10 reps ER/IR x 10 reps Supination/pronation x 10 reps required a brief rest in between each exercise LUE: Shoulder flexion x 10 reps with ~ 90 degrees AROM with full AAROM(baselines ROM is slightly below baseline) Overhead press x 10 reps Forward chest press x 10 reps Elbow flexion x 10 reps ER/IR x 10 reps Supination/pronation x 10 reps required a brief rest in between each exercise Call grayson within reach at end of session Vital signs: Position Heart Rate (bpm) Blood Pressure (mmHG) Respiratory Rate (breaths/min) Oxygen Saturation SPO2 Liters of Oxygen Pre: Semi fowlers 72 - 23 97% TC 40% FiO2 10 L flow rate Post: semifowlers 80 18 97% TC 40% FiO2 10 L flow rate Patient/Family Education: Topic: Benefits of activity Compensatory strategies Role of OT Energy conservation Learner: patient Method: verbal and demonstration Barriers to Learning: none noted Outcome: verbalized understanding and practice needed Team Communication: With nursing before session Assessment/Plan ASSESSMENT: Shirlene motivated to participate in therapy and participated in full therapy session focusing today on UE strengthening in which he was overall able to perform without hands on assist but with multiple rests. Patient remains well below his baseline and will be in need of rehab once medically ready for discharge. PLAN: Continue per plan of care Recommended Discharge Destination: Inpatient rehab Recommended Discharge Services: Occupational therapy at rehabilitation facility Recommended Discharge Equipment: To be determined by next care provider Pager: [phone] SHELLY SIMON OT, 04/05/2019, 11:50 * Melba Perez. - 04/05/2019 1119 EDT I called Britt today per patients request to ask her to bring his checkbook, bills, wallet and stamps when she comes to visit tomorrow. She states she will. MI He * Reta Al, RD - 04/05/2019 0957 EDT Nutrition ressessment: ?? Medical Summary: On TC, transition back to vent as needed Good UOP ?? Subjective: na Current Nutrition Orders: TF: Replete at 70 FW= 60 q 4 hr ?? Nutrition Focused Physical Findings: Edema: +1 edema Digestive Systems: Last BM 04/04 Skin: tissue injury to coccyx ?? Anthropometrics: Height: 71.5 Admission Weight: 70K Current Body Weight: 71K -03/29 Weight Change: +1 K ?? Pertinent Medications: Current Facility-Administered Medications: acetaminophen (TYLENOL) tablet 1,000 mg oral Q8H PRN alteplase (CATHFLO ACTIVASE) injection 2 mg intercatheter PRN dextrose 50 % solution 12.5-25 g intravenous PRN enoxaparin (LOVENOX) injection 40 mg subcutaneous DAILY ipratropium-albuterol (DUONEB) 0.5 mg-3 mg(2.5 mg base)/3 mL nebulizer solution 3 mL nebulization Q6H PRN magnesium sulfate 2g in D5W 50 ml intravenous PRN melatonin tablet 5 mg oral QHS Multivitamins with minerals + ferrous gluconate (CENTRUM) oral solution 15 mL feeding tube DAILY nicotine (NICODERM CQ) 7 mg/24 hr patch 1 Patch transdermal DAILY pantoprazole (PROTONIX) injection 40 mg intravenous BID papain-alpha amylase-cellulase (CLOG ZAPPER) 2-5 mL feeding tube PRN potassium chloride in water infusion 20 mEq intravenous PRN potassium phosphate 3 mMol/mL oral solution 15 mmol oral Daily PRN psyllium husk-aspartame (METAMUCIL) 3.4 gram/5.8 gram packet oral TID replete nutritional supplement liquid per g tube CONTINUOUS senna (SENOKOT) tablet 2 Tab oral BID PRN Or sennosides (SENOKOT) syrup 17.6 mg per ng tube BID PRN sodium chloride 0.9 % (flush) flush 10 mL intercatheter WEEKLY sodium chloride 0.9 % (NS) infusion intravenous CONTINUOUS Pertinent Labs: Na 132 ?? Estimated Nutrition Intake: 100% TF received past 5 days per I/O ?? Assessment: Pt hyponatremic and TF is providing 1.4 L FW/day. Will change to Nutren 1.5 at 42 cc/hr + 30 cc prosource TID to concentrate volume to .72 L/day while providing same masood/pro Only BM x 1 yesterday, will decrease psyllium to bid Need to check wt, overall pt is -5L Nutrition Risk Level: High (1) Medical Nutrition Therapy Plan and Recommendations: RD has order writing privileges and will modify the following orders: Change TF To Nutren 1.5 at 42 cc/hr + 30 cc prosource TID Order wt decrease psyllium to bid Recommendations requiring MD orders: none Reta Al RD [place] 4 Dietitian Pager: [phone] * Jocelyn Coto MD - 04/05/2019 0649 EDT Critical Care Progress Note Service Date: 04/05/2019 Admit Date: 03/17/2019 9:03 Reason for Admission to ICU: 64 y.o.??male??with a pmhx significant for COPD and tobacco use who was transferred from [facility] 03/17??admitted to the MICU for septic shock and??ARDs??secondaryto presumed pneumonia. Critical and life-threatening events over the past 24 hours: -tachypneic with O2 desats on trach collar oxygen overnight -UO: 0.740L, I/O: +0.7L (04/05), net negative 5L since admission Subjective/Objective Subjective No pain today. No complaints overnight. [place] breathing was fine overnight on trach collar oxygen. Denies GAUTHIER, CP, dyspnea, abdominal pain, nausea, vomiting, pain at site of PICC line, or extremity pain Review of Systems A ten point review of systems was performed. Pertinent positives are listed above, all others are negative Objective Blood pressure 121-138/64, pulse: 66-86, temperature 37.3 ??C (99.1 ??F), temperature source Tympanic, resp. rate 24-35, height 181.6 cm (71.5), weight 71 kg (156 lb 8.4 oz), SpO2 86-97 %. Physical Exam Gen: AAOX3, Fatigued and thing male resting comfortably in bed, No acute distress, conversing appropriately (nonverbally) HEENT: NC/AT, Oropharynx with dry MM Pulm: inspiratory crackles at the bases, much improved since yesterday's exam, no wheezes appreciated CV: regular rate and rhythm, no murmurs, rubs, or gallops, S1 and S2 heard Abd: Soft, non-tender, non-distended, positive bowel sounds, no splenohepatomegaly : park in place draining clear yellow urine Neuro: No focal deficits, Moving all extremities Ext: No lower extremity edema, good distal pulses, normal cap refill, no clubbing or cyanosis noted Recent Labs 04/03/19 0401 04/04/19 0401 04/05/19 0539 WBC 3.84* 5.21 6.34 HGB 8.2* 7.3* 7.7* HCT 25.0* 22.4* 23.3* PLT 154 172 231 Recent Labs 04/03/19 0401 04/04/19 0401 04/05/19 0539 NA 136 134* 132* K 3.7 3.8 3.5 CL 112* 110 106 CO2 18* 18* 19* CREATININE 0.89 0.84 0.74 MG 2.1 2.0 2.0 PHOS 3.5 3.3 3.3 Recent Labs 04/04/19 0623 04/04/19 1151 04/04/19 1831 04/04/19 2331 04/05/19 0536 GLUCOSEFINGE 114* 124* 117* 117* 130* Assessment/Plan Assessment 64 y.o.??male??with a pmhx significant for COPD and tobacco use who was transferred from [facility] 03/17??admitted to the MICU for septic shock and??ARDs??secondary to presumed pneumonia. On arrival he was also found to have metabolic acidosis, AF with RVR, SIRISHA, and volume overload. Hospital course complicated by acute decompensation (03/20) with HD instability and hemorrhagic shock. Tracheostomy placed 03/28. He now remains HD stable. Doing excellent with trach collar oxygen in the day with some signs of respiratory distress after long periods on trach collar. He is following commands and answering questions nonverbally. Plan Pulmonary ??# Acute hypoxic respiratory failure with ARDS secondary to pneumonia,??volume overload, and COPD (empysema seen on CT). Tachypenic after extended time on trach collar. He desated to 85-86 yesterdayevening. -keep patient on trach collar oxygen as tolerated. Transition to vent as need for fatigue, if RR>30 or O2 sat drops and overnight -he tachypneic and needs more rest. Encourage Vent at night - Fear that his TC trials have been tooaggressive. Will return to original plan of cautious TC trial during day w/ night rest. Also w/ uptrending fever curve, if spikes will repeat cxs and CXR -DIE ATTACHING MACHINE TENDER following -PT/OT following ?? #COPD -Duonebs q6h PRN ?? Cardiac #AFib with RVR (now resolved). Most likely acute secondary to sepsis/ acute infection. He remains in NSR. Mg 04/04: 2.0 Plan:?? -Monitor on Tele. - D/C Amiodarone 200 mg QD -Continue to follow Mg and replete Mg as needed ?? #Shock: Resolved. Patient is now HD stable Renal Intake/Output Summary (Last 24 hours) at 04/05/2019 0650 Last data filed at 04/05/2019 0600 Gross per 24 hour Intake 2610 ml Output 1960 ml Net 650 ml ?? #Acute Renal Failure: Resolved. Good UOP, Cr??(0.84) and K+ (3.8)??WNL.??Patient net even. -strict I &O, park in place -daily lytes -decrease free water to 60 ml q4h #Hyponatremia: Na+ 132 -decreased free water -daily lytes ?? # Metabolic Acidosis: low bicarb but improving from 18 (04/04) to 19 (04/05). Stable over last few days No anion gap. Likely secondary to GI loss. -continue to monitor daily lytes -rectal tube removed 04/04 -will replete if signs with bicarb if patient develops clinical signs GI Nutrition #Upper GI Bleed: resolved 03/20. Rectal tube in place Plan:?? -PPI BID -nutritional supplement liquid -diet NPO -d/c vitamin C Infectious Disease ?#Sepsis 2/2 left lower PNA and MSSA bacteremia: Presumed community acquired.??(Resolved) - Completed 14-day course antibiotics - PICC line replaced 03/24/19? -see resp above re: uptrending fever curve and worsening resp status, though suspect the later is related to aggressive weaning. Hematologic #Acute blood loss anemia s/p 3U pRBC, 1 unit of platelets on 03/24 and 1U pRBC 03/27. Drop in HgB from 8.2 (04/03) to 7.2 (04/04) to 7.7 (04/05). Etiology of drop unclear patient did not show signs of active bleeding and remains clinically stable. HgB improved today. -Transfuse if HgB <7 or signs of Hemodynamic instability -CBC daily Neurologic # Acute??Encephalopathy: Likely delirium. Now resolved. Alert, awake, and following commands. Olanzapine and ketamine d/c yesterday. Patient is tolerating with no signs of delirium overnight -Melatonin qHS -encourage patient to sit up and out of bed in recliner for improved mood -continue PT -encourage patient to bring in violin Endocrine - POC glucose d/c overnight as not requiring supplemental insulin in >48h Skin: pressure wound is improving and closely followed -wound care is following Lines -PICC -PIV -Park Prophylaxis - GI -??PPI - DVT -??Enoxparin ?? Communication Code Status: Limitation of Treatment. Clinical Condition: critical Critical Care Daily Checklist: Completed Dorinda Parada, MS4 Pager: [phone] 04/05/2019 11:40 Attending attestation statement: I saw and examined the patient with the resident and agree with the findings and plans as documented, and as amended in blue. Clinical Condition: Shirlene Bryan is a critically ill 64 y.o. male. Over the past 24 hours, therehas been a high probability of sudden, clinically significant or life threatening deterioration in the patient???s condition, which include the following diagnoses which I have managed: Active Problems: Acute respiratory failure with hypoxia ARDS Pneumonia Anemia Critical Care time was provided in the form of interventions to treat and prevent further life threatening deterioration of the patient???s condition including: Management of mechanical ventilation, Observation before/during/after ventilator weaning, Management of pain and sedation and Fluid and electrolyte management, and high complexity decision making regarding candidacy for extubation and need for additional imaging studies and / or interventional radiology interventions. My bedside involvement was required to monitor and direct the critical care that has been provided.Exclusive of procedures, my critical care time is 30 minutes. Jocelyn Coto MD MICU Attending 04/05/2019 * Flex Flores MD - 04/05/2019 0628 EDT Brief Progress Note: Discontinued POC glucose as not requiring supplemental insulin in >48 hours. Flex Flores MD * Sindy Christensen, RT - 04/05/2019 0516 EDT Respiratory Progress Note Indications for Respiratory therapy: Trach Data Vitals: Heart Rate: 79 BPM, Resp: 23, SpO2: 94 % FIO2/O2 Device: O2 Flow Rate (L/min): 10 l/min, , O2 Device: Trach collar, FIO2 %: (S) 35 % RT Orders: Continuous #8 Shiley DIC, AC 520 * 12 + 8, PRN ACT (IPV) Action/Events Respiratory events; Pt on 30% Trach Collar overnight. FIO2 increased to 35%. Trach care performed 0400. Suctioning Q4 for clear white thick thin secretions. Response/Results Weaning and Toleration of treatments; Weaning as tolerated RT LINDY 04/05/19 * Day Christianson RN - 04/04/2019 1546 EDT Assumed care of patient @ 1500. Patient answering orientation questions appropriately & denies any pain with initial assessment. Citadel bed in use. Patient in low position in bed & denies repositioning, reporting he is comfortable & prefers the low position in bed. Oxygen in place via trach collar. 1530: Respiratory Therapy at bedside providing trach care & suctioning. * Eliel Oswald, PT - 04/04/2019 9660 EDT Rehabilitation Therapy Acute Therapies [facility] Physical Therapy Encounter Note Date of Service: 04/04/2019 Subjective/Objective Subjective I'm tired Patient mouthing words. On trach collar trial Objective Intervention completed today: Time: 8394-8485 Total treatment time: 30 minutes. Timed code treatment minutes: 30 Vital signs were monitored and were stable throughout physical therapy session. SpO2 88-95 % during activity on 30 % FiO2 Trach collar. Frequent coughing and airway clearance throughout session. Therapeutic Activity: Bed Mobility: pt performed supine -> sit with min assist and verbal cues for sequencing, left side of bed with bed features. Pt performed sit->supine with min assist and verbal cues for technique, left side of bed withoutbed features. Sitting: Patient sat on edge of bed ~ 15 minutes with supervision to occasional min assist for balance. Patient used upper extremities for support. Performed sitting exercises below, needed slight min assist for dynamic sitting balance. Encouraged patient to practice standing transfers, but patient declined indicating fatigue. Therapeutic exercise: Reinforced therapeutic exercise program and provided pt with cueing to facilitate improved technique/proper performance in order to optimize outcome. Active: x 5- 10 reps Sitting Ankle pumps Hip flexion Long Arc quads Patient/Family Education: Topic: Activity pacing/Energy conservation Bed mobility Exercise Role of therapy Safety Learner: patient Method: verbal Barriers to Learning: none noted Outcome: needs practice Team Communication: Spoke with nursing prior to and after PT session Assessment/Plan Assessment Patient progress is limited by ongoing respiratory and medical problems. Anticipate slow progress and need for subacute rehab. Plan Continue per plan of care Recommended Discharge Destination: Sub-acute rehabilitation Recommended Discharge Services: Physical therapy at rehabilitation facility Recommended Equipment Needs: To be determined by next care provider Other recommendations: No other consults recommended at this time Primary Therapist: Pager: [phone] Eliel Oswald PT 04/04/2019 15:07 * Rona Negron CCC-SLP - 04/04/2019 1441 EDT Speech-Language Pathology Contact Note DIE ATTACHING MACHINE TENDER consult received for: Clinical Bedside Swallow Evaluation and Communication- Cognitive Evaluation. Patient is currently not appropriate for evaluation secondary as currently on trach collar trials day 2. Comments/Considerations: Speech-Language Pathologist to see pt after he is tolerating trach collar for 3 consecutive days. At that time, DIE ATTACHING MACHINE TENDER will coordinate with RT to do speaking valve evaluation. Please write orders for Speaking Valve Evaluation. GAYLE Galo 04/04/2019 14:41 * Viktoria Farr RN - 04/04/2019 1345 EDT Images from the original note were not included. 04/04 ?? 03/19: While on unit asked by bedside nurse to assess purple area on coccyx. ?? Pt arrived on Tuesday morning from [facility] with a pink blanchable area on his coccyx. Thismorning he has a deep tissue injury that must likely started at the OSH or during the ride here. Deep tissue injury forming on his coccyx measuring 2cm x 2.5cm, purple tissue with blanchable erythema on the surrounding skin. Mepilex border dressing in place. Suggest to place pt on a Citadel bed. ?? 03/29 - coccyx dep tissue injury is worse then last assessment which is concerning. Area now a dark purple, almost black in color measuring 6cm x 3cm. No drainage noted on mepilex border dressing. Suggested to nursing that they offload pressure from coccyx at all times to allow area to continue evolving without worsening. Current assessment: deep tissue injury continue to evolve. Center is now an unstageable pressure injury measuring 2cm x .8cm, some nonblanchable purple tissue remains on the left side. Mepilex borderdressing and offload still suggested treatment plan. ?? Recommend Mepilex??sacral??border to??coccyx area. Change every 5-7 days or prn for saturation. Lift daily toassess area and place back down.? Offload pressure from coccyx at all times Turn and reposition pt q2hrs Float heels off from mattress?? Viktoria Farr, Pressure Ulcer Prevention Nurse * Cherie Sorto, RT - 04/04/2019 1234 EDT Respiratory Progress Note Indications for Respiratory therapy: trach/mechanical ventilation Data Vitals: Heart Rate: 65 BPM, Resp: 28, SpO2: 100 % FIO2/O2 Device: O2 Flow Rate (L/min): 8 l/min, , O2 Device: Trach collar, FIO2 %: 30 % RT Orders: AC 610x14 +5 25-30%, Trach Collar trials Action/Events Respiratory events; Pt placed on vent overnight to rest (pt stated he was getting fatigued). Pt taken off vent this morning, trach care done, and placed on 30% TC at ~-0900. Tolerating trach collar trials well, did approx 15 hours yesterday. Per team, place pt back on vent only if pt is starting to feel fatigued and/or SOB. RT ENEIDA 04/04/19 * Shelly Simon OT - 04/04/2019 1129 EDT The Rehabilitation Therapy Acute Therapies [facility] Occupational Therapy Initial Evaluation Note Date of Service: 04/04/2019 Reason for Referral: Evaluate and treat Precautions: Activity as tolerated SUBJECTIVE: non verbal, able to mouth a few words, correctly write the year Pain: No pain reported during the interview. OBJECTIVE: Patient Profile: Shirlene Bryan is a right hand dominant 64 y.o. male admitted on 03/17/2019 secondary to [id number] J18.9 Pneumonia, unspecified organism-J18.9[ICD-10-CM] The patient lives at [address] [place] [address] History of Present Illness/Injury: Per Dr. Galdamez's H&P: Shirlene Bryan is a 64 y.o male withno past medical history and current smoker who presents from [facility] with rapid atrial fibrillation. ?? Per note from [facility], he presented on 03/15 after having 2 and half weeks of symptoms that started with fever and loss of appetite. The fever resolved after 1 week. He also reported weakness, fatigue,body aches, diarrhea, vomiting during that period. He had decreased food and fluid intake. The patient has not been seen by a doctor for about 10 years. ?? On presentation to [facility] he was hemodynamically stable. Labs significant for Na: 134 K: 3.9 Cl: 95CO2: 17 Ca: 9 Cr: 5.75 BUN: 178 Lactic acid: 2.7 WBC: 18.01.Chest CT showed multiple areas of consolidation in both lungs. He was admitted for pneumonia and renal failure and treated with azithromycin and ceftriaxone. He was given a total of 6L of fluid. The patient went into rapid A. fib this morning and was intubated due to hemodynamic instability. He was put on a diltiazem drip and transferred to the MICU. ?? Living Environment/Home Set-up: Patient lives alone in a multi-level house. Bathroom is upstairs and bedroom down stairs with a Walk in shower. 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 Atrial fibrillation with RVR (HCC-CMS) ??? Acute respiratory failure with hypoxia (HCC-CMS) ??? Septic shock (HCC-CMS) ??? ARDS (adult respiratory distress syndrome) (HCC-CMS) ??? SIRISHA (acute kidney injury) (HCC-CMS) ??? Anemia ??? Thrombocytopenia (HCC-CMS) ??? Bacteremia ??? Fever ??? Encephalopathy Past: History reviewed. No pertinent past medical history. No past surgical history on file. Medications: Medications reviewed Body Functions and Performance Skills: Cardiovascular/Respiratory Systems Function: Vital Signs: Position Heart Rate (bpm) Blood Pressure (mmHG) Respiratory Rate (breaths/min) Oxygen Saturation SPO2 Liters of Oxygen Pre: Mingo fowlers 80 134/63 21 99% TC 8L 30% FiO2 Post: Mingo fowlers 75 - 20 97% TC 8L 30 % FiO2 Mental Functions: Specific mental functions: Patient able to demonstrate the ability to follow multi step instructions during assessment. Attention appropriate. Nodded appropriately to yes/moth exterminator questions Global mental functions: A/Ox to self, month, year, significant other, other domains not explored Sensory Functions: Touch: C2-T1 intact Vision: denies any changes in vision as a result of hospitalization Hearing: patient able to understand conversational tones Neuro musculoskeletal and Movement Related Functions: Range of motion:RUE AROM , LUE: shoulder flexion ~90??, full with AAROM, elbow , wrist and digits AROM WNL. cervical range not assessed today due to trach collar Strength: RUE: shoulder >3/5 elbow flexion/extension 4/5. Grasp 3+/5. LUE: shoulder flexion >2+/5. Elbow grossly 3+/5. Grasp 3+/5. Skin and Related Structure Functions: Skin functions: per patient story: PICC Triple Lumen 03/24/19 Brachial Valved Power Inject 10 days Peripheral IV 03/29/19 1610 Left Antecubital 5 days Urethral Catheter 18 days NG/OG Tube Nasogastric Right nostril 7 days Surgical Airway Shiley 8 mm Cuffed 7 days Foam Border Prophylactic Dressing (MICU ONLY) Andrew less than or equal to 13 03/17/19 18 days Pressure Injury 03/19/19 Coccyx deep tissue injury noted to coccyx 16 days Partial Thickness Wound 03/21/19 Skin Tear skin tear 14 days Areas of Occupation and Performance Skills: Basic Activities of Daily Living: Feeding: NPO Grooming: total care Upper Body Dressing: anticipate max assist Lower Body Dressing: total care Toileting: catheter and rectal tube in place Functional Mobility: not evaluated due to completing a limited bedside evaluation Social Participation: Patient was cooperative with assessment Outcomes: Not evaluated due to not relevant at this time. Informed Consent: The patient consented to the occupational therapy evaluation. The patient agrees to and understandsthe occupational therapy treatment plan and goals. Interventions completed today: Occupational therapy today at 9:10. Total treatment time: 20 minutes. Timed code treatment minutes: 0 Intervention included: No interventions today Patient/Family Education: Topic: Benefits of activity Role of OT D/C planning Learner: patient and caregiver Method: verbal Barriers to Learning: none noted Outcome: practice needed Team Communication: With nursing before and after session ASSESSMENT: Shirlene Bryan was appropriate for occupational therapy evaluation due to functional deficits resulting from septic shock and acute hypoxic respiratory failure. He presents with impairments of decreased range of motion, strength, activity tolerance and balance anticipated, as well as currently compromised pulmonary status, currently on TC . Patient is unable to return home at this time due to the extent of support thathe requires for basic self care as well as mobility status(use of mechanical lift) The patient appeared motivated to improve and will likely make slow steady progress towards setgoals based on his high baseline level of function. Patient will benefit from skilled OT intervention using compensatory techniques and remediation approach to address set goals and maximize his prior level of function. This patient is appropriate for sub acute level of rehab at this time once medically ready for discharge. GOALS: Short Term Goals: - ?? - Creche Attendant Goals: 2-3 weeks ?? Patient will maintain UE ROM in prep for ADL's Patient will complete 15 minute unsupported sitting UB functional task in prep for ADL with supervision Patient will demonstrate proper use of energy conservation techniques with functional tasks min cues Patient will demonstrate I with UB exercise program in prep for ADL Patient will complete UE bathing with modified I Patient will complete LE bathing with min contact assist Patient will complete commode transfer with min contact assist ?? Patient/family will verbalize an understanding of occupational therapy recommendations PLAN: Intervention: Occupational therapy treatment for: Frequency: daily for 2-4 times per week as determined by the patient's medical stability, toleranceto activity and progression of functional activities Intensity: 15-30 minutes per session. Interventions include: Occupation Based Activity - Basic Activities of Daily Living Purposeful Activity Preparatory Method - Exercise Patient/Family Education Further Data: UE self care, ROM Patient/Family Education: Adapted ADLs Discharge Planning Role of OT Recommended Discharge Destination: Inpatient rehab Recommended Discharge Services: Occupational therapy at rehabilitation facility Recommended Discharge Equipment: To be determined by next care provider Pager: [phone] SHELLY SIMON OT, 04/04/2019, 11:30 * Melba Perez - 04/04/2019 1123 EDT I met with patient and Lawanda today to review General POA for financial affairs document. Patient would like to appoint Lawanda for DPOA for finances so she can pay his bills while he is hospitalized.I assisted with completing this and have made copies for patient, Lawanda and Medical records. Document was witnessed and notarized. MI He * Melba Perez. - 04/04/2019 0804 EDT I met with patient and his girlfriend yesterday to check in and offer support. His girlfriend met with me alone to discuss concerns about how to pay his bills for him while he is in the hospital. We will meet with patient today to discuss POA for $.etc. MI He * Dorinda Parada - 04/04/2019 0616 EDT Critical Care Progress Note Service Date: 04/04/2019 Admit Date: 03/17/2019 9:03 Reason for Admission to ICU: 64 y.o. male with pmhx of COPD and tobacco use admitted 03/17 for septic shock and ARDS secondary to pneumonia Critical and life-threatening events over the past 24 hours: -continues to do well on trach collar -I/O: +0.1L, UO: 2.3L (04/03/2019), net negative since admission 6.4L Subjective/Objective Subjective Mr. Bryan feels more alert. He reports no pain but mild discomfort around the coccyx area. He continues to feel weak. He wants to play violin to help pass the time. He reports less sputum production. He denies CP, abdominal pain, nausea, vomiting, or extremity pain Review of Systems A ten point review of systems was performed. Pertinent positives listed above Objective temperature 36.4 ??C (97.5 ??F), Blood pressure 162-93/81-47, pulse: 69-90 , resp. rate 18-28, [id number] % on VC-AC. Physical Exam Gen: AAOX3, No acute distress, thin male laying comfortably in bed HEENT: Oropharynx with dry MM Pulm: diffuse crackles appreciated in anterior and posterior lung sanderson. CV: regular rate and rhythm, no murmurs, rubs, or gallops, S1 and S2 heard GI: Abdomen Soft, non-tender, non-distended, positive bowel sounds, no splenohepatomegaly. Rectal tube in place : Park in place, draining clear yellow urine Neuro: No focal deficits, Moving all extremities Ext: No lower extremity edema, good distal pulses no clubbing or cyanosis noted Recent Labs 04/02/19 0206 04/03/19 0401 04/04/19 0401 WBC 3.20* 3.84* 5.21 HGB 8.1* 8.2* 7.3* HCT 24.8* 25.0* 22.4* PLT 146 154 172 Recent Labs 04/02/19 0206 04/02/19 1750 04/03/19 0401 04/04/19 0401 NA 137 137 136 134* K 3.7 3.8 3.7 3.8 CL 109 113* 112* 110 CO2 22 18* 18* 18* CREATININE 1.05 -- 0.89 0.84 MG 2.2 -- 2.1 2.0 PHOS 4.3 -- 3.5 3.3 Recent Labs 04/02/19 2339 04/03/19 0509 04/03/19 1150 04/03/19 1810 04/03/19 2350 GLUCOSEFINGE 132* 125* 121* 123* 104* Assessment/Plan Assessment 64 y.o. male with a pmhx significant for COPD and tobacco use who was transferred from [facility] 03/17 admitted to the MICU for septic shock and ARDs secondary to presumed pneumonia. On arrivalhe was also found to have metabolic acidosis, AF with RVR, SIRISHA, and volume overload. Hospital course complicated by acute decompensation (03/20) with HD instability and hemorrhagic shock. Tracheostomy placed 03/28. He now remains HD stable. Doing excellent during the day with trach collar oxygen. He is now following commands and answering questions nonverbally. Plan Pulmonary # Acute hypoxic respiratory failure with ARDS secondary to pneumonia, volume overload, and COPD (empysema seen on CT): -keep patient on trach collar oxygen continuously as tolerated. Continue overnight and transition to vent as need for fatigue, if RR>30 or O2 sat drops -speech and swallow consult today -PT/OT ordered #COPD -Duonebs q6h PRN Cardiac #AFib with RVR (now resolved). Most likely acute secondary to sepsis/ acute infection. He remains in NSR. Mg 04/04: 2.0 Plan: -Monitor on Tele. - D/C Amiodarone 200 mg QD -Continue to follow Mg and replete Mg as needed ?? #Shock: Resolved. Patient is now HD stable Renal Intake/Output Summary (Last 24 hours) at 04/04/2019 0616 Last data filed at 04/04/2019 0500 Gross per 24 hour Intake 2894 ml Output 1765 ml Net 1129 ml #Acute Renal Failure: Resolved. Good UOP, Cr (0.84) and K+ (3.8) WNL. Patient net even. -strict I &O, park in place -daily lytes -decrease free water to 60 ml q4h ?? # Metabolic Acidosis: low bicarb (18). No anion gap. Likely secondary to GI loss. -continue to monitor daily lytes -will replete if signs with bicarb if patient develops clinical signs -plan to remove rectal tube today GI Nutrition #Upper GI Bleed: resolved 03/20. Rectal tube in place Plan: -PPI BID -nutritional supplement liquid -diet NPO -d/c vitamin C Infectious Disease #Sepsis 2/ left lower PNA and MSSA bacteremia: Presumed community acquired.??(Resolved) - Completed 14-day course antibiotics - PICC line replaced 03/24/19? Hematologic #Acute blood loss anemia s/p 3U pRBC, 1 unit of platelets on 03/24 and 1U pRBC 03/27. Drop in HgB from 8.2 (04/03) to 7.2 (04/04). Etiology of drop unclear. Patient does not show signs of active bleeding and remains clinically stable. -Transfuse if HgB <7 or signs of Hemodynamic instability -CBC daily ?? Neurologic/ Psych # Acute Encephalopathy: Likely delirium. Now resolved. Alert, awake, and following commands. Olanzapine and ketamine d/c yesterday. Patient is tolerating with no signs of delirium overnight -Melatonin qHS -encourage patient to sit up and out of bed in recliner for improved mood -continue PT -encourage patient to bring in violin ?? Endocrine - c4uales POC G checks - SSI as needed Lines -PICC -PIV -Park Prophylaxis - GI -??PPI - DVT -??Enoxparin Communication Code Status: Limitation of Treatment. Clinical Condition: Stable Critical Care Daily Checklist: Completed Dorinda Parada, MS4 Pager: [phone] 04/04/2019 10:33 Cosigned by Jocelyn Coto MD at 04/04/2019 16:34 EDT Associated attestation - Jocelyn Coto MD - 04/04/2019 1634 EDT Attending attestation statement: I saw and examined the patient with the resident and agree with the findings and plans as documented, and as amended in blue. Clinical Condition: Shirlene Bryan is a critically ill 64 y.o. male. Over the past 24 hours, therehas been a high probability of sudden, clinically significant or life threatening deterioration in the patient???s condition, which include the following diagnoses which I have managed: Active Problems: Acute respiratory failure with hypoxia ARDS Metabolic acidosis Afib Critical Care time was provided in the form of interventions to treat and prevent further life threatening deterioration of the patient???s condition including: Management of mechanical ventilation and Management of pain and sedation, and high complexity decision making regarding candidacy for extubation and need for additional imaging studies and / or interventional radiology interventions. My bedside involvement was required to monitor and direct the critical care that has been provided.Exclusive of procedures, my critical care time is 30 minutes. Jocelyn Coto MD MICU Attending 04/04/2019 * Sunday Hanna, RT - 04/04/2019 0353 EDT Respiratory Progress Note Data Vitals: Heart Rate: 69 BPM, Resp: 19, SpO2: 100 % FIO2/O2 Device: O2 Flow Rate (L/min): 8 l/min, , O2 Device: (S) Other (Comment)(Placed on vent to rest overnight ),FIO2 %: 30 % RT Orders: Continuous RT Orders (From admission, onward) Start Ordered 04/02/192099 Trach Collar Oxygen [[id number]] CONTINUOUS AT NIGHT ?Discontinue?Reschedule Comments: Keep patient on continuously as tolerated. If RR>30 or O2 sats drop significantly, transition to vent settings. Please rest patient overnight. References: Adult Respiratory Consult Protocol Question: Adjust FI02 to Maintain SpO2 greater than: Answer: 92% Order ID Start Status [id number] 04/02/192099 Sent Discontinue Details [id number] 04/03/192099 Sent Discontinue Details [id number] 04/04/192099 Sent Discontinue Details 04/05/192099 Scheduled 04/06/192099 Scheduled 04/07/192099 Scheduled 04/08/192099 Scheduled 04/02/19 1658 04/02/19 0300 Assist Control Ventilation (Mechanical Ventilation) [[id number]] CONTINUOUS ?Discontinue References: ARDS/ALI Protocol?Post Op Protocol?Weaning Protocol?ETCO2 Protocol Question Answer Comment VT (mL) 610 7 cc/kg Set Rate (f/min) 14 Peep (cm H2O) 5 Non-Invasive No ETCO2 Protocol: Yes Protocols: ARDS/ALI Autoflow: Yes 04/02/19 0259 03/28/19 1425 TRACH STATUS [[id number]] CONTINUOUS ?Discontinue References: Adult Respiratory Consult Protocol Question Answer Comment Trach Status New trach 03/28 Trach Tube (Brand) Shiley Size (I.D.) mm #8 Inner Cannula Disposable Specify cuff status Inflate continuously Remove trach sutures in 5 days? N/A 03/28/19 1425 Resp Care Orders (24h ago through 24h from now) Start Ordered Unscheduled Airway Clearance Therapy [[id number]] PRN ?Discontinue References: Adult Respiratory Consult Protocol Question: Choose Airway Device Answer: IPV Action/Events Respiratory events; 0054: Transitioned from 30% TC to VC-AC 610 x 14 PEEP 5 30% to rest overnight. SUNDAY HANNA RT 04/04/19 * Alli Mariscal RT - 04/03/2019 1539 EDT Respiratory Progress Note Indications for Respiratory therapy: Tracheostomy, Mechanical Ventilation, Mucus Management Vitals: Heart Rate: 74 BPM, Resp: 30, SpO2: 98 % on 30% TC RT Orders: Continuous #8 Shiley DIC, AC 520 * 12 + 8, PRN ACT (IPV) 1525: Assumed care of patient. Significant mucus pooling around trach site evident on inspection with rhonchi notable from the doorway. Vitals signs are consistent with patient trending on 30% trach collar and no distress is evident. BBS are coarse, but improve with suctioning. Suctioned tracheostomy for moderate, thick/thin, white/clear secretions. Patient has a strong effective cough. Cleaned trach and dressed with clean pads. Plan to leave on TC as tolerated and place back on either AC or SPN/CPAP to rest tonight. 1957: Patient producing significant mucus, which he clears with a strong cough. Suctioned for moderate thick/thin, clear/white secretions. Cleaned, dried and dressed tracheostomy site. ALLI MARISCAL, 04/03/19 * Xuan Soto - 04/03/2019 1457 EDT Respiratory Consult/Progress Note Indications for Respiratory therapy: Trach/Vent/pneuomia failure to wean Data Vitals: Heart Rate: 92 BPM, Resp: 28, SpO2: 98 % FIO2/O2 Device: O2 Flow Rate (L/min): 8 l/min, , O2 Device: Trach collar, FIO2 %: 30 % RT Orders: Q4 Respiratory Care Evaluation (Trach/Vent) Vent: AC- Vt 610, RR 14, PEEP 5 Trach Collar Oxygen trails extended everyday PRN Duoneb Protocol Scoring: Bronchodilator/Inhalation Therapy Frequency Bronchodialator - Clinical Indications: History of COPD Breath Sounds: Any abnormal BS decreased Response: No change / no treatment Pulse: <100 Resp Rate: 18-25 SOB: With exertion Total Score: 3 Comment:: prn Airway Clearance Therapy Frequency Airway Clearance - Clinical Indications: Suctioning / Artificial airway Breath Sounds: Rhonchi / crackles Sputum: Moderate (tbs) Consistency: Thick Cough Effort: Strong, productive Color: Clear / white Total Score: 5 Comment: Q4 trach suction Hyperinflation Therapy Frequency Hyperinflation - Clinical Indications: Prevent atelectasis Breath Sounds: Diminished / crackles Surgery: No X-Ray / Atelectasis: No O2 Requirements: > 4 L above baseline Mobility Status: In chair Total: 7 Comment: trach eval/ IPV ordered prn Action/Events Respiratory events; Vent check with assessment was completed this morning. Coarse crackles were heard upon ausculation.Suctioned for a moderate amount of white/clear thick/thin secretions. Patient was put on oxygen trach collar 8L 30%. Second rounds oxygen trach collar still on. No signs of respiratory distress and sitting comfortably on chair with significant other. Breath sounds were still coarse, tracheal suctioning was completed and patient is also able to produce moderate amount of secretions out of stoma on his own with a fair productive cough. Trach care was completed and inner cannula was also changed due to thick secretions. Response/Results Weaning and Toleration of treatments; Continue to monitor and assess vent/trach. XUAN SOTO, RT 04/03/19 * Madelyn Knowles, PT - 04/03/2019 1447 EDT [facility] Acute Therapies [facility] Physical Therapy Initial Evaluation Note Date of Service: 04/03/2019 Reason for Referral: Evaluate and treat Precautions: Activity as tolerated SUBJECTIVE: I am tired from being up in the chair. Pain: No pain reported during the interview. OBJECTIVE: PatientProfile: Patient is a 64 y.o. male admitted on 03/17/2019 secondary to [id number] J18.9 Pneumonia, unspecified organism-J18.9[ICD-10-CM] The patient lives at [address] [place] [id number] Per HPI: Shirlene Bryan is a 64 y.o male with no past medical history and current smoker who presents from [facility] with rapid atrial fibrillation. ?? Per note from [facility], he presented on 03/15 after having 2 and half weeks of symptoms that started with fever and loss of appetite. The fever resolved after 1 week. He also reported weakness, fatigue,body aches, diarrhea, vomiting during that period. He had decreased food and fluid intake. The patient has not been seen by a doctor for about 10 years. ?? On presentation to [facility] he was hemodynamically stable. Labs significant for Na: 134 K: 3.9 Cl: 95CO2: 17 Ca: 9 Cr: 5.75 BUN: 178 Lactic acid: 2.7 WBC: 18.01.Chest CT showed multiple areas of consolidation in both lungs. He was admitted for pneumonia and renal failure and treated with azithromycin and ceftriaxone. He was given a total of 6L of fluid. The patient went into rapid A. fib this morning and was intubated due to hemodynamic instability. He was put on a diltiazem drip and transferred to the MICU. ?? Currently intubated and sedated Home environment Lives:alone Caregiver Support: Minimal to part-time assist from girlfriend Equipment Available: None Home Environment: house Home Layout: 2 story home Prior Level of Function: Independent without use of adaptive equipment Services prior to admission: None Work/Leisure: Need to clarify Medical/Surgical History: Current: Patient Active Problem List Diagnosis ??? Atrial fibrillation with RVR (HCC-CMS) ??? Acute respiratory failure with hypoxia (HCC-CMS) ??? Septic shock (HCC-CMS) ??? ARDS (adult respiratory distress syndrome) (HCC-CMS) ??? SIRISHA (acute kidney injury) (HCC-CMS) ??? Anemia ??? Thrombocytopenia (HCC-CMS) ??? Bacteremia ??? Fever ??? Encephalopathy Past: History reviewed. No pertinent past medical history. No past surgical history on file. Medications: Medications reviewed Arousal, Attention, and Cognition: Orientation: Oriented to person, place, and time Able to follow multi-step commands Cardiopulmonary: Vital Signs: Activity Heart rate (bpm) Blood Pressure (mmHg) Respiratory rate (breaths/min) Oxygen Sat/ Fractions of inspired Oxygen SPO2/FIO2 % Supine in bed 78 119/60 95% on 8L trach collar FIO2 30% Sitting EOB Following ambulation/transfers 83 141/67 87-93% on 8L trach collar FIO2 30% Integumentary/Anthropometric Characteristics: Palpation/Observation: Skin: cachectic male, rectal tube, trach collar, NG tube Edema: none Posture: Forward head, Protracted shoulders and Thoracic kyphosis Range of Motion and Joint Integrity: Active Range of Motion: Within normal limits Upper Quarter: Left Upper Extremity: Right Upper Extremity: Cervical Spine: Lower Quarter: Left Lower Extremity: RightLower Extremity: Lumbar Spine: Muscle Performance: Strength: Formal resistive manual muscle testing not performed due to focus on functional activities at this time. Based on AROM and functional movement strength is as follows: Upper Quarter: Left Upper Extremity: > to 3/5 as demonstrated functionally Right Upper Extremity: > to 3/5 as demonstrated functionally Cervical Spine: > to 3/5 as demonstrated functionally Lower Quarter: Left Lower Extremity: > to 3/5 as demonstrated functionally Right Lower Extremity: > to 3/5 as demonstrated functionally Lumbar Spine: N/E Sensation, Reflexes, and Nerve Integrity: Light Touch Sensation: Upper Quarter:Intact C2-T1 Lower Quarter: Intact for lower extremities Neuromotor Function/Development: No problems noted Able to move all limbs in isolation Balance, Mobility, and Gait: Balance: Patient received sitting up in chair. Sitting: Patient can tolerate static sitting at edge of recliner with min contact assist Standing: Patient requires max Ax2 to complete standing x2 with limited ability to maintain standing balance. Mobility: Mobility evaluation as follows: Rolling: mod Ax1 Supine to sit: NE Sit to supine: NE Sit to stand: max Ax2 Stand to sit: max Ax2 Bed to chair: required mechanical lift due to limited ability to maintain standing Gait: NE Self-Care, Home Management, Work, and Leisure: N/E at this time Outcomes: Please refer to individual sections for any outcome measures that were performed Informed Consent: The patient consented to the physical therapy evaluation. The patient agrees to and understands the physical therapy treatment plan and goals. Interventions Completed Today: Physical Therapy today at: 1330 Total treatment time: 30 minutes. Timed code treatment minutes: 10 Intervention included: Therapeutic Activity: During all functional activities noted above this patient was provided with manual assist and education via combination of verbal and demonstration. This was provided to give movement strategies to increase amount of functional activity while decreasing pain, activity effort and work of breathing. Sit<>stand x2 with max Ax2. Cues for upright posture. Blocking of knees bilaterally. Unable to maintain standing. Positioned sling under patient for transfer back to bed. Mechanical lift utilized to transfer patient back to bed. Patient/Family Education: Topic: Activity pacing/Energy conservation Assistive device/technique Balance Bed mobility Discharge planning Home program Positioning Precautions/protocol Role of therapy Safety Transfers Learner: patient and family Method: verbal and demonstration Barriers to Learning: none noted Outcome: requires assist and needs practice Team Communication: Discussed current level of mobility and recommendations with nursing for assistance with mobility and positioning outside of PT. ASSESSMENT: Physical Therapy Diagnosis: balance deficits, gait impairments, decreased tolerance to activity, impaired functional mobility, impaired gas exchange Physical Therapy Prognosis: Patient was appropriate for skilled PT evaluation and intervention. Based on findings today this patient has good potential to make gains toward prior level of functioning. Patient is currently below baseline level of functional mobility and activity. Evidence supports that early and regular mobilization decreases risks of secondary complications related from immobility and improves overall systemic body function. Skilled intervention by PT with knowledge of disease pathophyslology is indicated to establish and progress mobility and exercise, and provide recommendations for staff and safe discharge planning. Patient is 64 year old male with hospital admission on 03/17/19 for septic shock and acute hypoxic respiratory failure. Patient received sitting in recliner upon evaluation with significant fatigue noted. Patient unable to maintain static standing despite max A X 2, therefore mechanical lift utilized for transfer back to bed. Patient presents with significnat weakness, generalized deconditioning and impaired gas exchange limiting overall functional mobility. [facility]. Ultimately, d/c plan is pending patient's progress, tolerance to activity, level of assist available/needed and clinical improvement. Will continue to follow for PT interventions and ongoing d/c planning as needed. Short-Term Goals: 1-10 days Bed mobility: patient will be able to perform with min Ax1 demonstrating appropriate sequencing/motor planning. Transfers: patient will be able to perform bed to chair transfers with mod Ax1 with use of appropriate assistive device. Ambulation: patient will be able to ambulate 50 feet on level surfaces with mod Ax1 with use of appropriate assistive device. The patient and/or caregiver will be able to recall recommendations. All of the above mobility goals will be performed within vital sign parameters and oxygen saturation > 92%. ?? Long-Term Goals: 3-4 weeks Bed mobility: patient will be able to perform with supervision demonstrating appropriate sequencing/motor planning. Transfers: patient will be able to perform bed to chair transfers with supervision with use of appropriate assistive device. Ambulation: patient will be able to ambulate 100 feet on level surfaces with supervision with use of appropriate assistive device. The patient and/or caregiver will be able to recall recommendations. All of the above mobility goals will be performed within vital sign parameters and oxygen saturation > 92%. The patient will be able to perform stairs with supervision with home set up for rails. PLAN: Treatment/Intervention: Physical therapy will be provided by physical therapist and/or physical therapist blood bank assistant when medically appropriate. Frequency: daily for 3-5 times per week as determined by the patient's medical stability, toleranceto activity and progression of functional activities Intensity: 15-30 minutes per session Duration: During hospitalization Interventions may include:Therapeutic exercises, Therapeutic activities and Gait training Patient/family education: Discharge planning, Equipment, Family training, Precautions, Recommendations, Role of physical therapy/rehabilitation, Safety Further Data: ambulation progression, transfers Recommended Discharge Destination: Sub-acute rehabilitation Recommended Discharge Services: Physical therapy at rehabilitation facility Recommended Equipment Needs: To be determined by next care provider Other recommendations: No other consults recommended at this time Pager: [phone] Madelyn Knowles PT 04/03/2019 14:47 * Shelly Simon OT - 04/03/2019 1768 EDT Rehabilitation Therapies [facility] Occupational Therapy Contact Note Date of Service: 04/03/2019 OT consult received and record reviewed. Patient just back to bed after PT session per nursing and tired. Patient is sound asleep. OT assessment deferred with plans to follow-up on 04/04/19. SHELLY SIMON OT, 04/03/2019, 13:58 * Jocelyn Coto MD - 04/03/2019 4128 EDT Critical Care Progress Note Service Date: 04/03/2019 Admit Date: 03/17/2019 9:03 Reason for Admission to ICU: 64 y.o. male with no past medical history and current smoker who was transferred from [facility] on 03/17 and admitted to the MICU for management of septic shock and acute hypoxic respiratory failure secondary to presumed pneumonia. Critical and life-threatening events over the past 24 hours: - Tolerated trach collar trial - I/O: UO 4L. Negative 1.5L (04/02/19). Net negative 3L from adission Subjective/Objective Subjective - Follow commands. - Communicating using clipboard. - Denies pain. Review of Systems Review of systems not obtained due to patient factors: Unable to speak Objective Blood pressure 133/70, temperature 36.8 ??C (98.2 ??F), temperature source Tympanic, resp. rate 19,height 181.6 cm (71.5), weight 71 kg (156 lb 8.4 oz), SpO2 99 %. Physical Exam General: Thin man appearing his stated age, intubated (via trach) and on the ventilator. HEENT: Tracheostomy. No discharge from eyes, ears, nose, mouth. Cardiovascular: RRR, no murmurs, rubs or gallops. Radial and DP pulses 2+ bilaterally. Respiratory: Tracheostomy. Crackles at lateral sanderson bilaterally. GI: Distended abdomen. No masses or pulsations appreciated on palpation. : Park present. Skin: Evolving pressure injury, initially noted on HD #2 Neuro: Improved mental status and following commands Recent Labs 04/01/19 2030 04/02/19 0206 04/03/19 0401 CREATININE 1.06 1.05 -- 0.89 NA 137 137 < > 136 K 3.4* 3.7 < > 3.7 CL 108 109 < > 112* CO2 22 22 < > 18* < > = values in this interval not displayed. No results for input(s): TBIL, ALKPHOS, AST, ALT, LIPASE in the last 72 hours. Incorrect component name entered: ALBU Recent Labs 04/01/19 0512 04/02/19 0206 04/03/19 0401 HGB 7.6* 8.1* 8.2* HCT 22.8* 24.8* 25.0* MCV 94 94 95 PLT 123* 146 154 WBC 2.75* 3.20* 3.84* No results for input(s): PROTIME, INR, PTT in the last 72 hours. Assessment/Plan Assessment Shirlene Bryan is a 64 yo male with a history of presumed COPD and current smoker who was transferred from [facility] on 03/17/19 for septic shock and ARDS secondary to pneumonia, metabolic acidosis, AF w/ RVR, SIRISHA, and volume overload. Had an acute decompensation 03/20 with hemorrhagic shock and HD instability. Remains HD stable, but with tenuous resp status, delirium and persistent electrolyte abnormalities. Now s/p tracheostomy and following commands and tolerating trach collar trials. Plan PULM: # Acute hypoxic respiratory failure with ARDS: Secondary to pneumonia, volume overload, and underlying emphysema (seen on CT). - On pressure support - Continue trach collar trial today. Had planned for cautious wean but tolerated 8 hrs yesterday w/o setbacks and returned to vent for night only for planned rest. Rest on PS tonight. Consider speak / swallow consult tomorrow if does well on TC again today. - Hold diuresis # COPD: - Duonebs q6hr CV: # AFib: Hospital course complicated by RVR (now resolved). - Monitor on tele - Amiodarone 200mg po daily - Follow Mg level target >2 mg/dl. # Shock: Resolved. Hemorrhagic 03/20 from GI bleed, now resolved s/p 3L of fluid and 4 units of blood product and one unit of platelets. Lactate normal on 03/21/19. D/c A-line 03/29/19 to prevent line infection. - Resolved. ?? RENAL: ac # Nonanion gap metabolic acidosis. ? 2/2 to accidental diamox administration? Follow for now: - Follow HCO3. Monitor MV. May be challenging to compensate for given underlying lung disease # Acute Renal Failure: Resolved. He has had good UOP and hyperdynamic LV function on US 03/23. - Strict input and output, park in place. - Hold diuretics. Fluid goals net even today - Electrolytes daily ?? Intake/Output Summary (Last 24 hours) at 04/03/2019 0728 Last data filed at 04/03/2019 0600 Gross per 24 hour Intake 2701.61 ml Output 3960 ml Net -1258.39 ml ID: #Sepsis 2/2 left lower PNA and MSSA bacteremia: Presumed community acquired. Procal trending down previously. MSSA on OSH BCx. MSSA nasal swab positive, legionella and strep pneumo negative. - Completed 14-day course antibiotics - PICC line replaced 03/24/19 GI: #Upper GI Bleed - Resolved. 03/20 Severe UGIB w/ 1.5 L output from NG tube and 0.5L from rectal tube. Hg dropped to 5.8 from 10.7. S/p 3 units of RBC, 1 unit of platelets. Upper EGD showed multiple gastric and duodenal ulcers. No further evidence of GIB at present. - PPI BID NEURO/PSYCH: #Acute encephalopathy: Resolving. Following commands, answering questions and expressing understanding. - Melatonin qHS. D/C olanzapine. - Wean Ketamine off today. -OOB to chair / window for improved mobility and mood, cont PT ENDO: - [id number] POC glucose checks - SSI as needed ?? H/O: #Acute blood loss anemia: Hgb was 7.2 on 03/24/19 AM, given 3 units of RBC, 1 unit of platelets. 03/27 transfused 1 unit of blood for Hgb 6.6. - Transfuse if Hgb <7 - CBC daily ?? DERM #Deep tissue injury - Bruising on coccyx - Wound care following. Healing. ?? LINES: - Park - PICC placed 03/24 ?? PPX: - GI - PPI - DVT - Enoxparin ?? Code status: Full code Clinical Condition: Unstable Critical Care Daily Checklist: Completed Ayaan Corado MD 04/03/2019 7:28 PGY#3 Attending attestation statement: I saw and examined the patient with the resident and agree with the findings and plans as documented, and as amended in blue. Clinical Condition: Shirlene Bryan is a critically ill 64 y.o. male. Over the past 24 hours, therehas been a high probability of sudden, clinically significant or life threatening deterioration in the patient???s condition, which include the following diagnoses which I have managed: Active Problems: Acute respiratory failure with hypoxia and hypercapnea ARDS /Pneumonia Anemia Atrial fibrillation with RVR Critical Care time was provided in the form of interventions to treat and prevent further life threatening deterioration of the patient???s condition including: Management of mechanical ventilation, Management of pain and sedation and Fluid and electrolyte management, and high complexity decision making regarding candidacy for extubation and need for additional imaging studies and / or interventional radiology interventions. My bedside involvement was required to monitor and direct the critical care that has been provided.Exclusive of procedures, my critical care time is 30 minutes. Jocelyn Coto MD MICU Attending 04/03/2019 * Dorinda Parada - 04/03/2019 0610 EDT Critical Care Progress Note Service Date: 04/03/2019 Admit Date: 03/17/2019 9:03 Reason for Admission to ICU: 64 y.o. male with a pmhx significant for COPD and tobacco use who was transferred from [facility] 03/17 admitted to the MICU for septic shock and acute hypoxic respiratory failure secondary to presumed pneumonia and MSSA bactermia. Critical and life-threatening events over the past 24 hours: -Tolerated trach collar breathing trial for > 4 hours 04/02 -I/O:UO 4L. Negative -0.5L (04/02/2019). Subjective/Objective Subjective Mr. Rodriguez reports no pain. He was able to write No Pain but feeling uncomfortable. He slept ok last night. He endorses some discomfort breathing. No chest pain, nausea, vomiting, abdominal tenderness, extremity pain, pain in hands or feet. Review of Systems: 10-point review of systems is negative except as mentioned in the HPI and as noted here. Objective Blood pressure 116-133/64-70, MAP: 80-86, Heart rate: 64-78, temperature 36.8 ??C (98.2 ??F), temperature source Tympanic, resp. rate 19-28, SpO2 98 %. Physical Exam Gen: Thin male, NAD laying comfortably in bed HEENT: Tracheostomy in place, Oropharynx with dry MM Resp: Tracheostomy. Diffuse crackle in anterior and posterior lung sanderson CV: regular rate and rhythm, no murmurs, rubs, or gallops, S1 and S2 heard GI: rectal tube in place : Park in place draining clear and yellow urine Neuro: alert and oriented to person and place. Following commands Ext: 1+ pitting edema L left > R leg, good distal pulses, no clubbing or cyanosis noted Recent Labs 04/01/19 0512 04/02/19 0206 04/03/19 0401 WBC 2.75* 3.20* 3.84* HGB 7.6* 8.1* 8.2* HCT 22.8* 24.8* 25.0* PLT 123* 146 154 Recent Labs 04/01/19 0512 04/01/19 2030 04/02/19 0206 04/02/19 1750 04/03/19 0401 NA 136 137 137 137 136 K 3.6 3.4* 3.7 3.8 3.7 CL 106 108 109 113* 112* CO2 26 22 22 18* 18* CREATININE 0.95 1.06 1.05 -- 0.89 MG 1.8 2.2 2.2 -- 2.1 PHOS 3.9 -- 4.3 -- 3.5 Recent Labs 04/02/19 0617 04/02/19 1157 04/02/19 1710 04/02/19 2339 04/03/19 0509 GLUCOSEFINGE 134* 138* 130* 132* 125* Assessment/Plan Assessment 64 y.o. male with a pmhx significant for COPD and tobacco use who was transferred from [facility] 03/17 admitted to the MICU for septic shock and ARDs secondary to presumed pneumonia. On arrivalhe was also found to have metabolic acidosis, AF with RVR, SIRISHA, and volume overload. Hospital course complicated by acute decompensation (03/20) with HD instability and hemorrhagic shock. Tracheostomy placed 03/28. He now remains HD stable. He is now following commands and answering questions nonverbally. Plan Pulmonary # Acute hypoxic respiratory failure with ARDS secondary to pneumonia, MSSA bacteria, volume overload, and COPD (empysema seen on CT): Tolerated Trach collar trial for > 4 hours (04/02/2019). Currently on trach collar Vent settings VC-AC, FiO2: 25, rate: 14, Vt: 610, PEEP: 5 Plan: -Continue Trach collar trial today for 6-8 hours if patient tolerates -Hold diuresis #COPD -duonebs q6h PRN Cardiac #AFib with RVR (now resolved). Mg 04/03: 2.1 Plan: -Monitor on Tele -Amiodarone 200 mg QD -Continue to follow Mg and replete Mg as needed #Shock: Resolved. Patient is now HD stable Renal #Acute Renal Failure: Resolved. Good UOP, Cr (0.89) and K+ (3.7) WNL. -strict I &O, park in place -Hold diuretics with fluid goals net even -daily lytes # Metabolic Acidosis: low bicarb (18). No anion gap. Likely secondary to GI loss -continue to monitor daily lytes -keep an eye. May need to fix Intake/Output Summary (Last 24 hours) at 04/03/2019 0610 Last data filed at 04/03/2019 0600 Gross per 24 hour Intake 2726.01 ml Output 3110 ml Net -383.99 ml GI Nutrition #Upper GI Bleed: resolved 03/20. Rectal tube in place Plan: -PPI BID -nutritional supplement liquid -diet NPO Infectious Disease #Sepsis 2/2 left lower PNA and MSSA bacteremia: Presumed community acquired.??(Resolved) - Completed 14-day course antibiotics - PICC line replaced 03/24/19 Hematologic #Acute blood loss anemia s/p 3U pRBC, 1 unit of platelets on 03/24 and 1U pRBC 03/27. Currently HD stable. HgB today 8.2 -Transfuse if HgB <7 -CBC daily Neurologic/Pysch # Acute Encephalopathy: Likely delirium. Now resolved. Alert, awake, and following commands -Olanzapine 5 mg d/c today -Melatonin qHS - Start Ketamine taper today #Depression: Patient endorses feeling sad. -PT get him up on recliner -consider med psych if mood does not improve Endocrine - [id number] POC G checks - SSI as needed ??DERM #Deep tissue injury - Bruising on coccyx - Wound care consulted -special bed, no progression -last wound/dressing change q7 days LINES: - Park - PICC placed 03/24 ?? PPX: - GI -??PPI - DVT -??Enoxparin ?? Communication Code Status: Limitation of Treatment. Clinical Condition: stable Critical Care Daily Checklist: Completed Dorinda Parada, MS4 Pager: [phone] 04/03/2019 12:01 Cosigned by Jocelyn Coto MD at 04/03/2019 21:18 EDT * Derek Scott, RT - 04/03/2019 0515 EDT Respiratory Progress Note Indications for Respiratory therapy: Trach / Vent Data Vitals: Heart Rate: 67 BPM, Resp: 28, SpO2: 100 % FIO2/O2 Device: O2 Flow Rate (L/min): 8 l/min, , O2 Device: Intubated, FIO2 %: 25 % RT Orders: Q4 Respiratory Care Evaluation (Trach/Vent) PRN Duoneb PRN Airway Clearance (IPV) ?? VC-AC Autoflow on 610 x14 +5 PEEP ?? Trach Collar FiO2 30% at 8 L/min Action/Events Respiratory events; Patient tolerated vent settings well overnight. Patient has a #8 Shiley cuffed trach with a disposable inner cannula, which was changed out for a new one last night. Patient rested on CPAP 5/5 for most of the night. All trach care done. Protective barrier changed and all emergency equipment in room. Placed patient back on VC-AC this morning due to high RR/distress. Response/Results Weaning and Toleration of treatments; Continue Q4 trach checks and switch patient over to trach collar 30% during the day as tolerated. Derek Scott, RT 04/03/19 * Kathy Whitehead, RT - 04/02/2019 1206 EDT Respiratory Consult/Progress Note Indications for Respiratory therapy: Trach/Vent Data Vitals: Heart Rate: 66 BPM, Resp: 23, SpO2: 100 % FIO2/O2 Device: O2 Device: Intubated, FIO2 %: 25 % RT Orders: Q4 Respiratory Care Evaluation (Trach/Vent) PRN Duoneb PRN Airway Clearance (IPV) VC-AC Autoflow on 610 x14 +5 PEEP Trach Collar FiO2 30% at 8 L/min Action/Events Respiratory events; Pt has a #8 Shiley cuffed trach with a disposable inner cannula, which was changed and trach care was completed. From 0420 to 0820 the pt passed a 4 hour trial of pressure support 5/5. No diaphoresisor respiratory distress occurred during this time. After rounds, pt plan was to move to 30% FiO2 trach collar trial. Currently on trach collar, no adverse effects and pt tolerating well. Frequent suctioning of moderate, clear/white thick/thin secretions were necessary. Response/Results Weaning and Toleration of treatments; See above for ventilation details. Continue pt on trach collar as tolerated. If RR>30 or O2 satsdrop significantly, transition to vent settings/rest patient overnight. RT Steven 04/02/19 * Elvin Lezama - 04/02/2019 1039 EDT Nutrition Reassessment: ?? Medical Summary: Shirlene Bryan is a 64 y.o. male admitted on 03/17/2019 with a history of presumed COPD and current smoker who was transferred from [facility] on 03/17 for septic shock and ARDS secondary to pneumonia, metabolic acidosis, AF w/ RVR, SIRISHA, and volume overload. Had an acute decompensation 03/20 with hemorrhagic shock and HD instability. Remains HD stable, but with tenuous resp status, delirium and persistent electrolyte abnormalities. Now with tracheostomy and weaning down sedation as tolerable. ?? Current Nutrition Orders: Diet Order: NPO Tube Feeding: Replete @ 70ml/hr ?? Nutrition Focused Physical Findings: Cardiovascular-pulmonary:??intubated Swallow Function:??impaired Nerves and Cognition:??sedated, does not follow commands Dentition:??missing teeth Digestive Systems: RT-250ml (03/31/19) Skin:??deep tissue injury forming to coccyx; skin tear to right arm ?? Anthropometrics: Height: 181.6cm Current Body Weight: 71kg (9.26.19) BMI: Body mass index is 21.53 kg/m??. ?? Pertinent Medications: Current Facility-Administered Medications: acetaminophen (TYLENOL) tablet 1,000 mg oral TID alteplase (CATHFLO ACTIVASE) injection 2 mg intercatheter PRN amiodarone (PACERONE) tablet 200 mg oral DAILY ascorbic acid (vitamin C) (VITAMIN C) tablet 1,000 mg oral BID dextrose 50 % solution 12.5-25 g intravenous PRN enoxaparin (LOVENOX) injection 40 mg subcutaneous DAILY fentaNYL citrate (PF) injection 25-100 mcg intravenous Q1H PRN insulin aspart U-100 (NOVOLOG FLEXPEN) injection subcutaneous Q6H ipratropium-albuterol (DUONEB) 0.5 mg-3 mg(2.5 mg base)/3 mL nebulizer solution 3 mL nebulization Q6H PRN ketAMINE (KETALAR) 500mg in NaCl 0.9% 50ml syringe intravenous CONTINUOUS magnesium sulfate 2g in D5W 50 ml intravenous PRN melatonin tablet 5 mg oral QHS Multivitamins with minerals + ferrous gluconate (CENTRUM) oral solution 15 mL feeding tube DAILY nicotine (NICODERM CQ) 7 mg/24 hr patch 1 Patch transdermal DAILY OLANZapine (ZYPREXA) tablet 5 mg oral QHS pantoprazole (PROTONIX) injection 40 mg intravenous BID papain-alpha amylase-cellulase (CLOG ZAPPER) 2-5 mL feeding tube PRN potassium chloride in water infusion 20 mEq intravenous PRN potassium phosphate 3 mMol/mL oral solution 15 mmol oral BID propOFol (DIPRIVAN) 1000 mg in 100 mL infusion intravenous CONTINUOUS replete nutritional supplement liquid per g tube CONTINUOUS senna (SENOKOT) tablet 2 Tab oral BID PRN Or sennosides (SENOKOT) syrup 17.6 mg per ng tube BID PRN sodium chloride 0.9 % (flush) flush 10 mL intercatheter WEEKLY sodium chloride 0.9 % (NS) infusion intravenous CONTINUOUS Relevant Labs: Lab Results Component Value Date WBC 3.20 (L) 04/02/2019 RBC 2.63 (L) 04/02/2019 HGB 8.1 (L) 04/02/2019 HCT 24.8 (L) 04/02/2019 MCV 94 04/02/2019 MCH 30.8 04/02/2019 PLT 146 04/02/2019 NA 137 04/02/2019 K 3.7 04/02/2019 CL 109 04/02/2019 CO2 22 04/02/2019 BUN 66 (H) 03/24/2019 CREATININE 1.05 04/02/2019 GLUCOSEFINGE 124 (H) 04/01/2019 CALCIUM 7.9 (L) 04/02/2019 MG 2.2 04/02/2019 PHOS 4.3 04/02/2019 I/Os Intake/Output Summary (Last 24 hours) at 04/02/2019 1046 Last data filed at 04/02/2019 1000 Gross per 24 hour Intake 2846.82 ml Output 5730 ml Net -2883.18 ml Estimated??Daily??Nutrition Needs:?? 1,670-1,850-2,090 kcal (PSU - ANANT REE) 105 g Protein (1.5 g/kg) ?? Estimated Nutrition Intake: 95-100% of tube feeding infused (03/31, 04/01) ?? Assessment: Pt continues to require tube feedings to meet 100% of his nutritional need; pt intubated still on small amounts of of propofol. No new weights since 03/29, please recheck to help assess whether current feeds are meeting estimated nutrition needs. RT in place, monitor output. Consider switching to tube feeding with fiber if pt having frequent loose stools. Lytes stable, monitor and replete as needed. Nutrition Risk Level: High (1) Medical Nutrition Therapy Plan and Recommendations: 1. RD has order writing privileges and will modify the following orders: Continue with Rx TF Replete @70 mL/hr continuous 2. Check weight; continue to trend every 2-3 days 3. Monitor bowels/RT output - consider formula w/ fiber if frequent loose stools 4. Continue to monitor labs, I/Os, and GI symptoms Elvin Lezama MS RD PRANAV Dee 4 Dietitian Pager: [phone] * Jocelyn Coto MD - 04/02/2019 0858 EDT Critical Care Progress Note Service Date: 04/02/2019 Admit Date: 03/17/2019 9:03 Reason for Admission to ICU: 64 y.o. male with no past medical history and current smoker who was transferred from [facility] on 03/17 and admitted to the MICU for management of septic shock and acute hypoxic respiratory failure secondary to presumed pneumonia. Critical and life-threatening events over the past 24 hours: - Accidental acetazolamide dose 04/01/19. - Tolerated 4hr pressure support trial. - I/O: UO 5L. Negative 1.8L (04/01/19). Net negative 6L from adission Subjective/Objective Subjective - Follow commands - Denies pain. Review of Systems Review of systems not obtained due to patient factors: Unable to speak Objective Blood pressure 117/64, temperature 36.8 ??C (98.2 ??F), temperature source Tympanic, resp. rate 20,height 181.6 cm (71.5), weight 71 kg (156 lb 8.4 oz), SpO2 97 %. Physical Exam General: Thin man appearing his stated age, intubated (via trach) and on the ventilator. HEENT: Tracheostomy. No discharge from eyes, ears, nose, mouth. Cardiovascular: RRR, no murmurs, rubs or gallops. Radial and DP pulses 2+ bilaterally. Respiratory: Tracheostomy. Crackles at lateral sanderson bilaterally. GI: Distended abdomen. No masses or pulsations appreciated on palpation. : Park present. Skin: Evolving pressure injury, initially noted on HD #2 Neuro: Improved mental status and following commands Recent Labs 04/01/19 0512 04/01/19 2030 04/02/19 0206 CREATININE 0.95 1.06 1.05 NA 136 137 137 K 3.6 3.4* 3.7 CL 106 108 109 CO2 26 22 22 No results for input(s): TBIL, ALKPHOS, AST, ALT, LIPASE in the last 72 hours. Incorrect component name entered: ALBU Recent Labs 03/31/19 1712 04/01/19 0512 04/02/19 0206 HGB 7.0* 7.6* 8.1* HCT 21.6* 22.8* 24.8* MCV 93 94 94 PLT 122* 123* 146 WBC 2.63* 2.75* 3.20* No results for input(s): PROTIME, INR, PTT in the last 72 hours. Assessment/Plan Assessment Shirlene Bryan is a 64 yo male with a history of presumed COPD and current smoker who was transferred from [facility] on 03/17/19 for septic shock and ARDS secondary to pneumonia, metabolic acidosis, AF w/ RVR, SIRISHA, and volume overload. Had an acute decompensation 03/20 with hemorrhagic shock and HD instability. Remains HD stable, but with tenuous resp status, delirium and persistent electrolyte abnormalities. Now with tracheostomy and following commands. Plan PULM: # Acute hypoxic respiratory failure with ARDS: Secondary to pneumonia, volume overload, and underlying emphysema (seen on CT). - On pressure support - Trach collar trial today (2hr) - Hold diuresis CV: # AFib: Hospital course complicated by RVR (now resolved). - Monitor on tele - Amiodarone 200mg po daily - Follow Mg level target >2 mg/dl. Replete Mg as needed # Shock: Resolved. Hemorrhagic 03/20 from GI bleed, now resolved s/p 3L of fluid and 4 units of blood product and one unit of platelets. Lactate normal on 03/21/19. D/c A-line 03/29/19 to prevent line infection. - Resolved. ?? RENAL: # Acute Renal Failure: Resolved. He has had good UOP and hyperdynamic LV function on 03/23. - Strict input and output, park in place. - Hold diuretics. Fluid goals net even today - Electrolytes daily ?? Intake/Output Summary (Last 24 hours) at 04/02/2019 0958 Last data filed at 04/02/2019 0800 Gross per 24 hour Intake 2760.61 ml Output 5755 ml Net -2994.39 ml ID: #Sepsis 2/2 left lower PNA and MSSA bacteremia: Presumed community acquired. Procal trending down previously. MSSA on OSH BCx. MSSA nasal swab positive, legionella and strep pneumo negative. - Completed 14-day course antibiotics - PICC line replaced 03/24/19 GI: #Upper GI Bleed - Resolved. 03/20 Severe UGIB w/ 1.5 L output from NG tube and 0.5L from rectal tube. Hg dropped to 5.8 from 10.7. S/p 3 units of RBC, 1 unit of platelets. Upper EGD showed multiple gastric and duodenal ulcers. No further evidence of GIB at present. - PPI BID NEURO/PSYCH: #Acute encephalopathy: Likely delirium. Now substantially improved, awake, following commands, responding to questions, expressing understanding of plan for the day - Olanzapine decreased to 5mg qhs - Melatonin qHS - Ketamine 10mg/hr - continue for now - Scheduled Acetaminophen ENDO: - [id number] POC G checks - SSI as needed ?? H/O: #Acute blood loss anemia: Hgb was 7.2 on 03/24/19 AM, given 3 units of RBC, 1 unit of platelets. 03/27 transfused 1 unit of blood for Hgb 6.6. - Transfuse if Hgb <7 - CBC daily ?? DERM #Deep tissue injury - Bruising on coccyx - Wound care consulted, special bed, no progression, some evolution ?? LINES: - Park - PICC placed 03/24 ?? PPX: - GI - PPI - DVT - Enoxparin ?? Code status: Full code Clinical Condition: Unstable Critical Care Daily Checklist: Completed Ayaan Corado MD 04/02/2019 9:58 PGY#3 Attending attestation statement: I saw and examined the patient with the resident and agree with the findings and plans as documented, and as amended in blue. Clinical Condition: Shirlene Bryan is a critically ill 64 y.o. male. Over the past 24 hours, therehas been a high probability of sudden, clinically significant or life threatening deterioration in the patient???s condition, which include the following diagnoses which I have managed: Active Problems: Acute respiratory failure with hypoxia and hypercapnea ARDS SIRISHA Anemia Atrial fibrillation with RVR Critical Care time was provided in the form of interventions to treat and prevent further life threatening deterioration of the patient???s condition including: Management of mechanical ventilation, Management of pain and sedation and Fluid and electrolyte management, and high complexity decision making regarding candidacy for extubation and need for additional imaging studies and / or interventional radiology interventions My bedside involvement was required to monitor and direct the critical care that has been provided.Exclusive of procedures, my critical care time is 30 minutes. Jocelyn Coto MD MICU Attending 04/02/2019 * Facundo Mcguire, RT - 04/02/2019 0512 EDT Respiratory Progress Note Indications for Respiratory therapy: Vent/Trach Data Vitals: Heart Rate: 63 BPM, Resp: 20, SpO2: 100 % FIO2/O2 Device: O2 Device: Intubated, FIO2 %: 25 % RT Orders: AC 610 (8cc) X 14 +5 25% 8 shiley DIC Action/Events Respiratory events; Patient tolerated vent settings well. Tidal volume changed to 8cc due to Vt limited alarm. 0422 patient switched onto spont breathing trial of psv 5/5 with intermittent spikes in minute ventilation above 1800ml/min and peak RR of 32. No diaphoresis and patient did not seem to be uncomfortable with the trial and wished to continue going. FACUNDO MCGUIRE, RT 04/02/19 * Leticia Galdamez MD - 04/01/2019 0853 EDT Critical Care Progress Note Service Date: 04/01/2019 Admit Date: 03/17/2019 9:03 Reason for Admission to ICU: 64 y.o. male with no past medical history and current smoker who was transferred from [facility] on 03/17 and admitted to the MICU for management of septic shock and acute hypoxic respiratory failure secondary to presumed pneumonia. Critical and life-threatening events over the past 24 hours: - NAEO - Failed SBT. Subjective/Objective Subjective - On ventilator. Intubated and sedated. Review of Systems Review of systems not obtained due to patient factors: Unable to speak Objective Blood pressure 98/62, temperature (!) 35.5 ??C (95.9 ??F), temperature source Tympanic, resp. rate 26, height 181.6 cm (71.5), weight 71 kg (156 lb 8.4 oz), SpO2 97 %. Physical Exam General: Thin man appearing his stated age, intubated and on the ventilator. HEENT: Tracheostomy. No discharge from eyes, ears, nose, mouth. Cardiovascular: RRR, no murmurs, rubs or gallops. Radial and DP pulses 2+ bilaterally. Respiratory: Tracheostomy. Crackles at lateral sanderson bilaterally R>L. GI: Distended abdomen. No masses or pulsations appreciated on palpation. : Park present. Musculoskeletal: 1-2+ edema of all 4 extremities. Skin: Oozing blood from trach site. Bruising on bl upper extremities. Evolving pressure injury, initially noted on HD #2 Neuro: Sedated. Improved mental status, following commands Recent Labs 03/30/19 0354 03/31/19 0507 04/01/19 0512 CREATININE 1.21 -- 1.17 -- 0.95 NA 141 < > 139 < > 136 K 3.0* < > 3.4* < > 3.6 CL 106 < > 107 < > 106 CO2 30 < > 27 < > 26 < > = values in this interval not displayed. No results for input(s): TBIL, ALKPHOS, AST, ALT, LIPASE in the last 72 hours. Incorrect component name entered: ALBU Recent Labs 03/31/19 0507 03/31/19 1712 04/01/19 0512 HGB 7.7* 7.0* 7.6* HCT 22.9* 21.6* 22.8* MCV 93 93 94 PLT 124* 122* 123* WBC 2.75* 2.63* 2.75* No results for input(s): PROTIME, INR, PTT in the last 72 hours. Assessment/Plan Assessment Shirlene Bryan is a 64 yo male with a history of presumed COPD and current smoker who was transferred from [facility] on 03/17 for septic shock and ARDS secondary to pneumonia, metabolic acidosis,AF w/ RVR, SIRISHA, and volume overload. Had an acute decompensation 03/20 with hemorrhagic shock and HDinstability. Remains HD stable, but with tenuous resp status, delirium and persistent electrolyte abnormalities. Now with tracheostomy and weaning down sedation as tolerable. Plan PULM: # Acute hypoxic respiratory failure with ARDS: Secondary to pneumonia, volume overload, and underlying emphysema (seen on CT). VC-AC ventilation on trach: Vent Settings: FiO2-35 Rate: 14 Vt: 530 PEEP 5 - Discontinue furosemide and indapamide - Trend spO2 and ABG with goal>90%, allow for permissive hypercapnea - order PT and OT CV: # Shock: Resolved. Hemorrhagic 03/20 from GI bleed, now resolved s/p 3L of fluid and 4 units of blood product and one unit of platelets. Lactate normal on 03/21/19. D/c A-line 03/29/19 to prevent line infection. - Resolved. ?? # AFib with RVR: Resolved - Monitor on tele - Amiodarone 200mg po daily - Follow Mg level target >2 mg/dl. Replete Mg as needed RENAL: # Acute Renal Failure: Resolved. He has had good UOP and hyperdynamic LV function on US 03/23, anasarca/3rd spacing on exam. - Strict input and output, park in place. - Furosemide 40mg once daily and hold indapamide. - Diurese for goal of net negative 500ml. - Electrolytes daily ?? Intake/Output Summary (Last 24 hours) at 04/01/2019 0853 Last data filed at 04/01/2019 0800 Gross per 24 hour Intake 3262.92 ml Output 3675 ml Net -412.08 ml ID: #Sepsis 2/2 left lower PNA and MSSA bacteremia: Presumed community acquired. Procal trending down previously. MSSA nasal swab positive, legionella and strep pneumo negative. Suspect recurrent septic shock possible abdominal source. - Completed 14-day course antibiotics - PICC line replaced 03/24/19 GI: #Portal Vein Gas - Resolved #Upper GI Bleed - Resolved. 03/20 Severe UGIB w/ 1.5 L output from NG tube and 0.5L from rectal tube. Hg dropped to 5.8 from 10.7. S/p 3 units of RBC, 1 unit of platelets. Upper EGD showed multiple gastric and duodenal ulcers. No further evidence of GIB at present. - PPI BID NEURO/PSYCH: #Acute encephalopathy: Likely delirium. Increased sedation as above. - Olanzapine decreased to 5mg qhs - Melatonin qHS - Ketamine 10mg/hr - continue - Scheduled Acetaminophen ENDO: - [id number] POC G checks - SSI as needed ?? H/O: #Acute blood loss anemia: Hgb was 7.2 on 03/24/19 AM, given 3 units of RBC, 1 unit of platelets. 03/27 transfused 1 unit of blood for Hgb 6.6. - Transfuse if Hgb <7 - CBC daily ?? DERM #Deep tissue injury - Bruising on coccyx - Wound care consulted, special bed, no progression, some evolution ?? LINES: - Park - PICC placed 03/24 ?? PPX: - GI - PPI - DVT - enoxparin ?? Code status: Full code Clinical Condition: Unstable Critical Care Daily Checklist: Completed Jonatan Martinez MD 04/01/2019 8:53 PGY#3 Attending attestation statement: I saw and examined the patient with the resident and agree with the findings and plans as documented, and as amended in blue. Clinical Condition: Shirlene Bryan is a critically ill 64 y.o. male. Over the past 24 hours, therehas been a high probability of sudden, clinically significant or life threatening deterioration in the patient???s condition, which include the following diagnoses which I have managed: 1. Acute respiratory failure with hypoxia (HCC-CMS) 2. Atrial fibrillation with RVR (HCC-CMS) 3. SIRISHA (acute kidney injury) (HCC-CMS) 4. ARDS (adult respiratory distress syndrome) (HCC-CMS) 5. Vitamin B12 deficiency anemia due to intrinsic factor deficiency 6. Bacteremia 7. Fever in other diseases Critical Care time was provided in the form of interventions to treat and prevent further life threatening deterioration of the patient???s condition including: Management of mechanical ventilation, and high complexity decision making regarding management of fluid and electrolyte status and the need for critical procedures, such as: titration of sedation. My bedside involvement was required to monitor and direct the critical care that has been provided.Exclusive of procedures, my critical care time is 48 minutes. Leticia Galdamez MD Pulmonary & Critical Care Medicine 04/14/2019 * Brian Carter, RT - 03/31/2019 1837 EDT Respiratory Progress Note Indications for Respiratory therapy: acute hypoxic respiratory failure secondary to presumed pneumonia mechanical ventilation Data Vitals: Heart Rate: 62 BPM, Resp: 27, SpO2: 100 % FIO2/O2 Device: O2 Device: Intubated, FIO2 %: 35 % RT Orders: Assist Control Ventilation (Mechanical Ventilation) [[id number]] CONTINUOUS ?Discontinue References: ARDS/ALI Protocol?Post Op Protocol?Weaning Protocol?ETCO2 Protocol Question Answer Comment VT (mL) 530 7 cc/kg Set Rate (f/min) 14 Peep (cm H2O) 5 Non-Invasive No ETCO2 Protocol: Yes Protocols: ARDS/ALI Autoflow: Yes #8 Laurenley DIC PRN Duoneb Action/Events Patient remains intubated with small to moderate amounts of secretions. He is often tachypneic withresp rates in the 30's. Trach care provided Q4 and as needed (trach site continues to ooze secretions). Inner cannula changed at 1500. Failed SBT early this morning due to tachypnea. Response/Results Continue with above vent settings. RT Noris 03/31/19 * Leticia Galdamez MD - 03/31/2019 0618 EDT Critical Care Progress Note Service Date: 03/31/2019 Admit Date: 03/17/2019 9:03 Reason for Admission to ICU: 64 y.o. male with no past medical history and current smoker who was transferred from [facility] on 03/17 and admitted to the MICU for management of septic shock and acute hypoxic respiratory failure secondary to presumed pneumonia. Critical and life-threatening events over the past 24 hours: - NAEO - Failed SBT. Subjective/Objective Subjective - On ventilator. Intubated and sedated. Review of Systems Review of systems not obtained due to patient factors: Unable to speak Objective Blood pressure (!) 81/49, temperature 35.8 ??C (96.4 ??F), temperature source Tympanic, resp. rate (!) 34, height 181.6 cm (71.5), weight 71 kg (156 lb 8.4 oz), SpO2 90 %. Physical Exam General: Thin man appearing his stated age, intubated and on the ventilator. HEENT: Tracheostomy. No discharge from eyes, ears, nose, mouth. Cardiovascular: RRR, no murmurs, rubs or gallops. Radial and DP pulses 2+ bilaterally. Respiratory: Tracheostomy. Crackles at lateral sanderson bilaterally R>L. GI: Distended abdomen. No masses or pulsations appreciated on palpation. : Park present. Musculoskeletal: 1-2+ edema of all 4 extremities. Skin: Oozing blood from trach site. Bruising on bl upper extremities. Evolving pressure injury, initially noted on HD #2 Neuro: Sedated. Improved mental status, following commands Recent Labs 03/29/19 0423 03/30/19 0354 03/31/19 0507 CREATININE 1.31* -- 1.21 -- 1.17 NA 143 < > 141 < > 139 K 3.6 < > 3.0* < > 3.4* CL 110 < > 106 < > 107 CO2 26 < > 30 < > 27 < > = values in this interval not displayed. No results for input(s): TBIL, ALKPHOS, AST, ALT, LIPASE in the last 72 hours. Incorrect component name entered: ALBU Recent Labs 03/30/19 0354 03/30/19 1655 03/31/19 0507 HGB 7.9* 7.6* 7.7* HCT 22.8* 22.5* 22.9* MCV 92 93 93 PLT 120* 118* 124* WBC 2.71* 2.60* 2.75* No results for input(s): PROTIME, INR, PTT in the last 72 hours. Assessment/Plan Assessment Shirlene Bryan is a 64 yo male with a history of presumed COPD and current smoker who was transferred from [facility] on 03/17 for septic shock and ARDS secondary to pneumonia, metabolic acidosis,AF w/ RVR, SIRISHA, and volume overload. Had an acute decompensation 03/20 with hemorrhagic shock and HDinstability. Remains HD stable, but with tenuous resp status, delirium and persistent electrolyte abnormalities. Now with tracheostomy and weaning down sedation as tolerable. Plan PULM: # Acute hypoxic respiratory failure with ARDS: Secondary to pneumonia, volume overload, and underlying emphysema (seen on CT). VC-AC ventilation on trach: Vent Settings: FiO2-40 Rate: 14 Vt: 530 PEEP 8 - Furosemide 40mg BID IV and Indapamide 2.5mg daily - Trend spO2 and ABG with goal>90%, allow for permissive hypercapnea Paring back on diuretic regimen given soft Bp Still volume overloaded, target ~500-1000 off today if possible CV: # Shock: Resolved. Hemorrhagic 03/20 from GI bleed, now resolved s/p 3L of fluid and 4 units of blood product and one unit of platelets. Lactate normal on 03/21/19. D/c A-line 03/29/19 to prevent line infection. - Resolved. ?? # AFib with RVR: Resolved - Monitor on tele - Amiodarone 200mg po daily - Follow Mg level target >2 mg/dl. Replete Mg as needed RENAL: # Acute Renal Failure: Resolved. He has had good UOP and hyperdynamic LV function on US 03/23, anasarca/3rd spacing on exam. - Strict input and output, park in place. - Furosemide 40mg once daily and hold indapamide. - Diurese for goal of net negative 500ml. - Electrolytes q12 ?? Intake/Output Summary (Last 24 hours) at 03/31/2019 1059 Last data filed at 03/31/2019 1000 Gross per 24 hour Intake 3540.93 ml Output 5095 ml Net -1554.07 ml ID: #Sepsis 2/2 left lower PNA and MSSA bacteremia: Presumed community acquired. Procal trending down previously. MSSA nasal swab positive, legionella and strep pneumo negative. Suspect recurrent septic shock possible abdominal source. - Completed 14-day course antibiotics - PICC line replaced 03/24/19 GI: #Portal Vein Gas - Resolved #Upper GI Bleed - Resolved. 03/20 Severe UGIB w/ 1.5 L output from NG tube and 0.5L from rectal tube. Hg dropped to 5.8 from 10.7. S/p 3 units of RBC, 1 unit of platelets. Upper EGD showed multiple gastric and duodenal ulcers. No further evidence of GIB at present. - PPI BID NEURO/PSYCH: #Acute encephalopathy: Likely delirium. Increased sedation as above. - Olanzapine 10mg BID - Melatonin qHS - Ketamine 10mg/hr - continue - Scheduled Acetaminophen ENDO: - [id number] POC G checks - SSI as needed ?? H/O: #Acute blood loss anemia: Hgb was 7.2 on 03/24/19 AM, given 3 units of RBC, 1 unit of platelets. 03/27 transfused 1 unit of blood for Hgb 6.6. - Transfuse if Hgb <7 - CBC daily ?? DERM #Deep tissue injury - Bruising on coccyx - Wound care consulted, special bed, no progression, some evolution ?? LINES: - A line -placed 03/17-d/c today - Park - PICC placed 03/24 ?? PPX: - GI - PPI - DVT - enoxparin ?? Code status: Full code Clinical Condition: Unstable Critical Care Daily Checklist: Completed Ayaan Corado MD 03/31/2019 10:59 PGY#3 Attending attestation statement: I saw and examined the patient with the resident and agree with the findings and plans as documented, and as amended in blue. Clinical Condition: Shirlene Bryan is a critically ill 64 y.o. male. Over the past 24 hours, therehas been a high probability of sudden, clinically significant or life threatening deterioration in the patient???s condition, which include the following diagnoses which I have managed: 1. Acute respiratory failure with hypoxia (HCC-CMS) 2. Atrial fibrillation with RVR (HCC-CMS) 3. SIRISHA (acute kidney injury) (HCC-CMS) 4. ARDS (adult respiratory distress syndrome) (HCC-CMS) Critical Care time was provided in the form of interventions to treat and prevent further life threatening deterioration of the patient???s condition including: Management of mechanical ventilation, and high complexity decision making regarding management of fluid and electrolyte status and the need for critical procedures, such as: sedative titration. My bedside involvement was required to monitor and direct the critical care that has been provided.Exclusive of procedures, my critical care time is 42 minutes. Leticia Galdamez MD Pulmonary & Critical Care Medicine 03/31/2019 * Paola Mendez RT - 03/30/2019 0738 EDT Respiratory Progress Note Indications for Respiratory therapy: Trach/vent Data Vitals: Heart Rate: 71 BPM, Resp: 26, SpO2: 100 % FIO2/O2 Device: , , O2 Device: Intubated, FIO2 %: 35 % RT Orders: AC 530 x 14 +5 Continuous trach status PRN Duoneb PRN Airway Clearance (IPV) Action/Events Respiratory events; Patient with #8 Shidianne remains on above vent settings. PEEP weaned this morning from 10 to 5 and FiO2 weaned to 35%. SpO2 still 100%. Diminished breath sounds auscultated, more so diminished on the left. Slow bleeding noted from trach site, wiped away. Emergency equipment at bedside RT Caren 03/30/19 * Leticia Galdamez MD - 03/30/2019 0629 EDT Critical Care Progress Note Service Date: 03/30/2019 Admit Date: 03/17/2019 9:03 Reason for Admission to ICU: 64 y.o. male with no past medical history and current smoker who was transferred from [facility] on 03/17 and admitted to the MICU for management of septic shock and acute hypoxic respiratory failure secondary to presumed pneumonia. Critical and life-threatening events over the past 24 hours: - Tachypnea and hypoxic. CT-PE identified no pulmonary embolus, improving pneumonia and small bilateral pulmonary effusions. Subjective/Objective Subjective - On ventilator. Intubated and sedated. Review of Systems Review of systems not obtained due to patient factors: Unable to speak Objective Blood pressure 106/55, temperature 35.8 ??C (96.4 ??F), temperature source Tympanic, resp. rate 22,height 181.6 cm (71.5), weight 71 kg (156 lb 8.4 oz), SpO2 96 %. Physical Exam General: Thin man appearing his stated age, intubated and on the ventilator. HEENT: Tracheostomy. No discharge from eyes, ears, nose, mouth. Cardiovascular: RRR, no murmurs, rubs or gallops. Radial and DP pulses 2+ bilaterally. Respiratory: Tracheostomy. Crackles at lateral sanderson bilaterally R>L. GI: Distended abdomen. No masses or pulsations appreciated on palpation. : Park present. Musculoskeletal: 1-2+ edema of all 4 extremities. Skin: Oozing blood from trach site. Bruising on bl upper extremities. Evolving pressure injury, initially noted on HD #2 Neuro: Sedated. Improved mental status, following commands Recent Labs 03/28/19 0208 03/29/19 0423 03/30/19 0354 CREATININE 1.37* -- 1.31* -- 1.21 NA 142 < > 143 < > 141 K 4.1 < > 3.6 < > 3.0* CL 112* < > 110 < > 106 CO2 27 < > 26 < > 30 < > = values in this interval not displayed. No results for input(s): TBIL, ALKPHOS, AST, ALT, LIPASE in the last 72 hours. Incorrect component name entered: ALBU Recent Labs 03/29/19 0423 03/29/19 1531 03/30/19 0354 HGB 8.3* 8.5* 7.9* HCT 23.8* 24.5* 22.8* MCV 90 90 92 PLT 133* 130* 120* WBC 2.41* 2.78* 2.71* No results for input(s): PROTIME, INR, PTT in the last 72 hours. Assessment/Plan Assessment Shirlene Bryan is a 64 yo male with a history of presumed COPD and current smoker who was transferred from [facility] on 03/17 for septic shock and ARDS secondary to pneumonia, metabolic acidosis,AF w/ RVR, SIRISHA, and volume overload. Had an acute decompensation 03/20 with hemorrhagic shock and HDinstability. Remains HD stable, but with tenuous resp status, delirium and persistent electrolyte abnormalities. Now with tracheostomy and weaning down sedation as tolerable. Plan PULM: # Acute hypoxic respiratory failure with ARDS: Secondary to pneumonia, volume overload, and underlying emphysema (seen on CT). VC-AC ventilation on trach: Vent Settings: FiO2-40 Rate: 14 Vt: 530 PEEP 8 - Ffurosemide 60mg BID IV and Indapamide 2.5mg daily - Antibiotics as below - Trend spO2 and ABG with goal>90%, allow for permissive hypercapnea CV: # Shock: Resolved. Hemorrhagic 03/20 from GI bleed, now resolved s/p 3L of fluid and 4 units of blood product and one unit of platelets. Lactate normal on 03/21/19. D/c A-line 03/29/19 to prevent line infection. - Resolved. ?? # AFib with RVR: Resolved - Monitor on tele - Amiodarone 200mg po daily - Follow Mg level target >2 mg/dl. Replete Mg as needed RENAL: # Acute Renal Failure: Resolved. He has had good UOP and hyperdynamic LV function on US 03/23, anasarca/3rd spacing on exam. - Strict input and output, park in place. - Diurese for goal of net 1 liters off per day if able - Electrolytes q12 ?? Intake/Output Summary (Last 24 hours) at 03/30/2019 1023 Last data filed at 03/30/2019 0900 Gross per 24 hour Intake 3261.25 ml Output 6595 ml Net -3333.75 ml ID: #Sepsis 2/2 left lower PNA and MSSA bacteremia: Presumed community acquired. Procal trending down previously. MSSA nasal swab positive, legionella and strep pneumo negative. Suspect recurrent septic shock possible abdominal source. - Completed 14-day course antibiotics - PICC line replaced 03/24/19 GI: #Portal Vein Gas - Resolved #Upper GI Bleed - Resolved. 03/20 Severe UGIB w/ 1.5 L output from NG tube and 0.5L from rectal tube. Hg dropped to 5.8 from 10.7. S/p 3 units of RBC, 1 unit of platelets. Upper EGD showed multiple gastric and duodenal ulcers. No further evidence of GIB at present. - PPI BID NEURO/PSYCH: #Acute encephalopathy: Likely delirium. Increased sedation as above. - Olanzapine 10mg BID - Melatonin qHS - Ketamine 8mg/hr - continue - Scheduled Acetaminophen ENDO: - [id number] POC G checks - SSI as needed ?? H/O: #Acute blood loss anemia: Hgb was 7.2 on 03/24/19 AM, given 3 units of RBC, 1 unit of platelets. 03/27 transfused 1 unit of blood for Hgb 6.6. - Transfuse if Hgb <7 - CBC daily ?? DERM #Deep tissue injury - Bruising on coccyx - Wound care consulted, special bed, no progression, some evolution ?? LINES: - A line -placed 03/17-d/c today - Park - PICC placed 03/24 ?? PPX: - GI - PPI - DVT - enoxparin ?? Code status: Full code Clinical Condition: Unstable Critical Care Daily Checklist: Completed Ayaan Corado MD 03/30/2019 10:23 PGY#3 Attending attestation statement: I saw and examined the patient with the resident and agree with the findings and plans as documented, and as amended in blue. Clinical Condition: Shirlene Bryan is a critically ill 64 y.o. male. Over the past 24 hours, therehas been a high probability of sudden, clinically significant or life threatening deterioration in the patient???s condition, which include the following diagnoses which I have managed: 1. Acute respiratory failure with hypoxia (HCC-CMS) 2. Atrial fibrillation with RVR (HCC-CMS) 3. SIRISHA (acute kidney injury) ([facility]) 4. ARDS (adult respiratory distress syndrome) ([facility]) Critical Care time was provided in the form of interventions to treat and prevent further life threatening deterioration of the patient???s condition including: Management of mechanical ventilation, and high complexity decision making regarding management of atrial fibrillation and the need for critical procedures, such as: fluid and electrolyte management. My bedside involvement was required to monitor and direct the critical care that has been provided.Exclusive of procedures, my critical care time is 40 minutes. Leticia Galdamez MD Pulmonary & Critical Care Medicine 03/30/2019 * Frank Zavala, - 03/29/2019 9274 EDT Respiratory Care Transport Note (Internal) Pre-transport - The airway was suctioned for small/moderate amount of thick white secretions. . Heart Rate: 83 BPM, Resp: 24, SpO2: 100 %, BP: 96/68. The patient was placed on the transport vent withsettings of ordered settings. The patient was noted to be stable on these settings. The resuscitation bag, mask and syringe were available during transport. Transport- The patient was transported to and from [place] without incident. The SpO2 remained at 98 throughout the transport and no critical changes in HR, BP or RR noted. Post-transport- Once the patient was returned to their room and placed on the ICU vent with previous settings; a full vent check was performed. Please see the ventilator flowsheet for charting. All emergency equipment was returned to the patient's HOB. Comments: RT Michelet 03/29/19 * Domenica High MD - 03/29/2019 1354 EDT Update: Increasing RR, even after increased PEEP. Patient evaluated at bedside. BP 100/50 HR 70-72 RR 31-33 Consider possible PE vs dyssynchronous breathing due to differing requirements from the patient Stat CXR Trial pressure support Continue to hold fentanyl Cautious increase of norepinephrine Domenica High MD 03/29/2019 13:56 * Reta Al RD - 03/29/2019 1303 EDT Serum phos low x 2 days: 2.2>2.3 Start phosnak bid to replete and continue to check daily phos/K+ Reta Al RD * Viktoria Farr RN - 03/29/2019 1144 EDT Images from the original note were not included. 03/29 03/19: While on unit asked by bedside nurse to assess purple area on coccyx. ?? Pt arrived on Tuesday morning from [facility] with a pink blanchable area on his coccyx. Thismorning he has a deep tissue injury that must likely started at the OSH or during the ride here. Deep tissue injury forming on his coccyx measuring 2cm x 2.5cm, purple tissue with blanchable erythema on the surrounding skin. Mepilex border dressing in place. Suggest to place pt on a [facility] bed. Current assessment: coccyx dep tissue injury is worse then last assessment which is concerning. Area now a dark purple, almost black in color measuring 6cm x 3cm. No drainage noted on mepilex border dressing. Suggested to nursing that they offload pressure from coccyx at all times to allow area to continue evolving without worsening. ?? Recommend Mepilex sacral border to coccyx area. Change every 5-7 days or prn for saturation. Lift daily to assess area and place back down. Offload pressure from coccyx at all times Turn and reposition pt q2hrs Float heels off from mattress Viktoria Farr, Pressure Ulcer Prevention Nurse * Juan Omalley MD - 03/29/2019 0717 EDT Surgery Progress Note Service Date: 03/29/2019 Admit Date: 03/17/2019 9:03 POD: 1 (03/17/2019) Procedure: Tracheostomy Chief Complaint: Pneumonia 24 Hour Events: ?? Trach in OR, intimally placed 6.0 Shiley, required upgrade to 8.0 tube at bedside as high cuff pressures to 2/2 leak in MICU. Tolerated both well ?? Able to wean down levo to 4 (from 16 post op) ?? Stable Vent settings ?? Some s/s drainage from trach site, no francy bleeding Subjective/Objective Subjective Sedated, ventilated by trach Objective Vital Signs Temp: [35.1 ??C (95.2 ??F)-37.8 ??C (100 ??F)] (), Heart Rate: [52 BPM-129 BPM] (), Pulse: -- (), Pulse From Oximetry: [52 BPM-130 BPM] (), Resp: [10-38] (), BP: (96)/(68) (), SpO2: [91 %-100 %] () Physical Exam General Appearance: ventilated and sedated Lung: coarse mechanical breath sounds Heart: regular rate and rhythm Abdomen: soft NTND Incision(s)/Wound(s): trach site with some mild oozing from the inferior portion, trach ties in place no sutures, no leak noted on my exam. Vent settings Mode: VC-AC Rate: 14 bmp Vt 530 mL PS:5cmH2O PEEP 8 cmH2O FiO2: 40 % Assessment/Plan Assessment 64 y.o. male with history of ARDS and failure to wean the vent now POD# 1 s/p tracheostomy, still in critical condition in the MICU. Plan Care per MICU Trach site intact with better cuff pressures and minimal leak per RT Trach care per RT/Trach team ACS to sign off at this time, please call [phone] with any questions Juan Omalley MD 03/29/2019 4:55 * JoanmichaelNataliaa - 03/29/2019 0655 EDT Critical Care Progress Note Service Date: 03/29/2019 Admit Date: 03/17/2019 9:03 Reason for Admission to ICU: 64 y.o. male with no past medical history and current smoker who was transferred from [facility] on 03/17 and admitted to the MICU for management of septic shock and acute hypoxic respiratory failure secondary to presumed pneumonia. Critical and life-threatening events over the past 24 hours: -none Subjective/Objective Subjective On ventilator, sedated. Review of Systems Review of systems not obtained due to patient factors: Unable to speak Objective Blood pressure 96/68, temperature 37.1 ??C (98.8 ??F), temperature source Tympanic, resp. rate 22, height 181.6 cm (71.5), weight 71 kg (156 lb 8.4 oz), SpO2 98 %. Physical Exam General: Thin man appearing his stated age, intubated and on the ventilator. HEENT: NC/AT. No discharge from eyes, ears, nose, mouth. Cardiovascular: RRR, no murmurs, rubs or gallops. Radial and DP pulses 2+ bilaterally. Respiratory: Tracheostomy. Crackles at lateral sanderson bilaterally R>L. GI: Distended abdomen. No masses or pulsations appreciated on palpation. : Park present. Musculoskeletal: 1-2+ edema of all 4 extremities. Skin: Oozing blood from trach site. Bruising on bl upper extremities. Evolving pressure injury, initially noted on HD #2 Neuro: Sedated. Improved mental status, following commands Recent Labs 03/27/19 0452 03/28/19 0208 03/29/19 0423 CREATININE 1.39* -- 1.37* -- 1.31* NA 141 < > 142 < > 143 K 3.6 < > 4.1 < > 3.6 CL 109 < > 112* < > 110 CO2 24 < > 27 < > 26 < > = values in this interval not displayed. No results for input(s): TBIL, ALKPHOS, AST, ALT, LIPASE in the last 72 hours. Incorrect component name entered: ALBU Recent Labs 03/28/19 0208 03/28/19 1326 03/29/19 0423 HGB 7.3* 6.7* 8.3* HCT 21.4* 19.6* 23.8* MCV 92 94 90 PLT 142 135* 133* WBC 3.24* 2.53* 2.41* No results for input(s): PROTIME, INR, PTT in the last 72 hours. Assessment/Plan Assessment Shirlene Bryan is a 64 yo male with a history of presumed COPD and current smoker who was transferred from [facility] on 03/17 for septic shock and ARDS secondary to pneumonia, metabolic acidosis,AF w/ RVR, SIRISHA, and volume overload. Had an acute decompensation 03/20 with hemorrhagic shock and HDinstability. Remains HD stable, but with tenuous resp status, delirium and persistent electrolyte abnormalities. Now with tracheostomy and weaning down sedation as tolerable. Plan PULM: # Acute hypoxic respiratory failure with ARDS Secondary to pneumonia, volume overload, and underlying emphysema (seen on CT). Up-trending FiO2 requirements in the setting of dramatic change in HD status on 03/20, and worsening hypercapnea. Becameagitated and dyssynchronous 03/23 with decrease in sedation. Concern for worsening ARDS/hypoxemia and b/l infiltrates on pressure control 03/[address] shows significant infiltrates with probably some scarring. - AC-VC ventilation on trach - Vent Settings: FiO2-40 Rate: 14 Vt: 530 PEEP 8 - Continue to diurese with Lasix 60 mg IV q8 - Daily Indapamide 2.5 - Antibiotics as below - Trend spO2 and ABG with goal>90%, allow for permissive hypercapnea CV: # Shock Hemorrhagic 03/20 from GI bleed, now resolved s/p 3L of fluid and 4 units of blood product and one unit of platelets. Lactate normal on 03/21/19. Now component of sepsis and sedation meds. - On levophed, titrate to MAP > 65. - D/c A-line today to prevent line infection ?? # AFib with RVR - Monitor on tele - Amiodarone 400 mg po bid - Follow Mg level target >2 mg/dl - Replete Mg as needed RENAL: # Acute Renal Failure Likely pre-renal, now improving with Cr ~1.39 from peak of 3.49. He has had good UOP and hyperdynamic LV function on US 03/23, anasarca/3rd spacing on exam. - Strict input and output, park in place. - Diurese for goal of net 1-2 liters off per day if able - Electrolytes q12 - Scheduled K ?? Intake/Output Summary (Last 24 hours) at 03/29/2019 0655 Last data filed at 03/29/2019 0600 Gross per 24 hour Intake 2747.95 ml Output 5140 ml Net -2392.05 ml ID: #Sepsis 2/2 left lower PNA and MSSA bacteremia Presumed community acquired. Procal trending down previously. MSSA nasal swab positive, legionella and strep pneumo negative. Suspect recurrent septic shock possible abdominal source. - Last day of pip/tazo - PICC line replaced 03/24/19 GI: #Portal Vein Gas - resolved Bedside ultrasound showed gas micro bubbles in portal vein 03/26, concerning for mesenteric ischemiaor other necrotic gut tissue. No gas seen on U/S 03/27. CT A/P with possible ischemia-no gas seen. ACS consulted and not concerned for mesenteric ischemia. Suspect there could have been a transient ischemic gut episode from the levophed. - Last day pip/tazo - F/u bacterial cultures - check BCx - tube feeds #Upper GI Bleed - Now resolved 03/20 Severe UGIB w/ 1.5 L output from NG tube and 0.5L from rectal tube. Hg dropped to 5.8 from 10.7. S/p 3 units of RBC, 1 unit of platelets. Upper EGD showed multiple gastric and duodenal ulcers. No further evidence of GIB at present. - GI consulted, appreciate recs - PPI BID NEURO/PSYCH: #Acute encephalopathy Likely delirium. Increased sedation as above. - Olanzapine 10 mg BID - melatonin qHS - propofol drip - Wean fentanyl as able w/ prn boluses - Ketamine 20 mg/hr - continue - Scheduled Acetaminophen ENDO: - [id number] POC G checks - SSI as needed ?? H/O: #Acute blood loss anemia Hgb was 7.2 on 03/24/19 AM, given 3 units of RBC, 1 unit of platelets. 03/27 transfused 1 unit of blood for Hgb 6.6. - Transfuse if Hgb <7 - CBC daily ?? DERM #Deep tissue injury - Bruising on coccyx - Wound care consulted, special bed, no progression, some evolution ?? LINES: - A line -placed 03/17-d/c today - Park - PICC placed 03/24 ?? PPX: - GI - PPI - DVT - lovenox ?? Code status: Full code Clinical Condition: Unstable Critical Care Daily Checklist: Completed Yasmine Falcon 03/29/2019 6:55 MSIV, MICU AI * Leticia Galdamez MD - 03/28/2019 0745 EDT Critical Care Progress Note Service Date: 03/28/2019 Admit Date: 03/17/2019 9:03 Reason for Admission to ICU: 64 y.o. male with no past medical history and current smoker who was transferred from [facility] on 03/17 and admitted to the MICU for management of septic shock and acute hypoxic respiratory failure secondary to presumed pneumonia. Critical and life-threatening events over the past 24 hours: -none Subjective/Objective Subjective On ventilator, sedated. Review of Systems Review of systems not obtained due to patient factors: Ventilated, Unable to speak and Unable to comprehend Objective Blood pressure 124/61, temperature 37.8 ??C (100 ??F), temperature source Tympanic, resp. rate 28, height 181.6 cm (71.5), weight 71.4 kg (157 lb 8 oz), SpO2 93 %. Physical Exam General: Thin man appearing his stated age, intubated and on the ventilator. HEENT: NC/AT. No discharge from eyes, ears, nose, mouth. Cardiovascular: RRR, no murmurs, rubs or gallops. Radial and DP pulses 2+ bilaterally. Respiratory: Crackles at lateral sanderson bilaterally R>L. GI: Distended abdomen. No masses or pulsations appreciated on palpation. : Park present. Musculoskeletal: 1-2+ edema of all 4 extremities. Skin: Bruising on bl upper extremities. Evolving pressure injury, initially noted on HD #2 Neuro: Sedated. Recent Labs 03/26/19 0301 03/27/19 0452 03/28/19 0208 CREATININE 1.66* -- 1.39* -- 1.37* NA 139 < > 141 < > 142 K 3.5 < > 3.6 < > 4.1 CL 105 < > 109 < > 112* CO2 30 < > 24 < > 27 < > = values in this interval not displayed. No results for input(s): TBIL, ALKPHOS, AST, ALT, LIPASE in the last 72 hours. Incorrect component name entered: ALBU Recent Labs 03/27/19 0452 03/27/19 1342 03/28/19 0208 HGB 6.6* 8.4* 7.3* HCT 19.8* 24.5* 21.4* MCV 95 93 92 PLT 150 147 142 WBC 4.55 4.06 3.24* No results for input(s): PROTIME, INR, PTT in the last 72 hours. Assessment/Plan Assessment Shirlene Bryan is a 64 yo male with a history of presumed COPD and current smoker who was transferred from [facility] on 03/17 for septic shock and ARDS secondary to pneumonia, metabolic acidosis,AF w/ RVR, SIRISHA, and volume overload. Had an acute decompensation 03/20 with hemorrhagic shock and HDinstability. Remains HD stable, but with tenuous resp status, delirium and persistent electrolyte abnormalities. Now increasing sedation since 03/24 due to concern for increased volu-trauma on PC ventilation, complicated by hypotension requiring pressors. Plan PULM: # Acute hypoxic respiratory failure with ARDS Secondary to pneumonia, volume overload, and underlying emphysema (seen on CT). Up-trending FiO2 requirements in the setting of dramatic change in HD status on 03/20, and worsening hypercapnea. Becameagitated and dyssynchronous 03/23 with decrease in sedation. Concern for worsening ARDS/hypoxemia and b/l infiltrates on pressure control 03/[address] shows significant infiltrates with probably some scarring. - Back to AC-VC ventilation - Vent Settings: FiO2-40 Rate: 14 Vt: 530 PEEP 8 - Continue to diurese with Lasix 60 mg IV q8 - Daily Indapamide 2.5 - Antibiotics as below - Trend spO2 and ABG with goal>90%, allow for permissive hypercapnea - Tracheostomy today CV: # Shock Hemorrhagic 03/20 from GI bleed, now resolved s/p 3L of fluid and 4 units of blood product and one unit of platelets. Lactate normal on 03/21/19. Now component of sepsis and sedation meds. - On levophed, titrate to MAP > 65. ?? # AFib with RVR - resolved - Monitor on tele - amiodarone if recurrent - Follow Mg level target >2 mg/dl RENAL: # Acute Renal Failure Likely pre-renal, now improving with Cr ~1.39 from peak of 3.49. He has had good UOP and hyperdynamic LV function on US 03/23, anasarca/3rd spacing on exam. - Strict input and output, park in place. - Diurese for goal of net 1-2 liters off per day if able - Electrolytes q12 - Replete K as needed ?? Intake/Output Summary (Last 24 hours) at 03/28/2019 0745 Last data filed at 03/28/2019 0612 Gross per 24 hour Intake 3706.68 ml Output 4750 ml Net -1043.32 ml ID: #Sepsis 2/2 left lower PNA and MSSA bacteremia Presumed community acquired. Procal trending down previously. MSSA nasal swab positive, legionella and strep pneumo negative. Suspect recurrent septic shock possible abdominal source. - Continue piptazo - PICC line replaced 03/24/19 GI: #Portal Vein Gas - resolved Bedside ultrasound showed gas micro bubbles in portal vein 03/26, concerning for mesenteric ischemiaor other necrotic gut tissue. No gas seen on U/S 03/27. CT A/P with possible ischemia-no gas seen. ACS consulted and not concerned for mesenteric ischemia. Suspect there could have been a transient ischemic gut episode from the levophed. - Continue pip/tazo - F/u bacterial cultures - check BCx - NPO for tracheostomy today - Restart tube feeds after trach #Upper GI Bleed - Now resolved 03/20 Severe UGIB w/ 1.5 L output from NG tube and 0.5L from rectal tube. Hg dropped to 5.8 from 10.7. S/p 3 units of RBC, 1 unit of platelets. Upper EGD showed multiple gastric and duodenal ulcers. No further evidence of GIB at present. - GI consulted, appreciate recs - PPI BID NEURO/PSYCH: #Acute encephalopathy Likely delirium. Increased sedation as above. - Olanzapine 10 mg BID - melatonin qHS - propofol drip as - Wean fentanyl as able w/ prn boluses - Ketamine 20 mg/hr - continue - Scheduled Acetaminophen ENDO: #Hyperglycemia - [id number] POC G checks - SSI as needed ?? H/O: #Acute blood loss anemia Hgb was 7.2 on 03/24/19 AM, given 3 units of RBC, 1 unit of platelets. 03/27 transfused 1 unit of blood for Hgb 6.6. - Transfuse if Hgb <7 - CBC daily ?? DERM #Deep tissue injury - Bruising on coccyx - Wound care consulted, special bed, no progression, some evolution ?? LINES: - A line -placed 03/17 - Park - PICC placed 03/24 ?? PPX: - GI - PPI - DVT - heparin held for trach today ?? Code status: Full code Clinical Condition: Unstable Critical Care Daily Checklist: Completed Yasmine Falcon 03/28/2019 7:45 MSIV, MICU AI Attending attestation statement: I saw and examined the patient with the resident and agree with the findings and plans as documented, and as amended in blue. Clinical Condition: Shirlene Bryan is a critically ill 64 y.o. male. Over the past 24 hours, therehas been a high probability of sudden, clinically significant or life threatening deterioration in the patient???s condition, which include the following diagnoses which I have managed: 1. Acute respiratory failure with hypoxia (HCC-CMS) 2. Atrial fibrillation with RVR (HCC-CMS) 3. SIRISHA (acute kidney injury) (HCC-CMS) 4. ARDS (adult respiratory distress syndrome) (HCC-CMS) Critical Care time was provided in the form of interventions to treat and prevent further life threatening deterioration of the patient???s condition including: Management of mechanical ventilation, and high complexity decision making regarding candidacy for tracheostomy and the need for critical pr ocedures, such as: volume management, titration of vasopressors. My bedside involvement was required to monitor and direct the critical care that has been provided.Exclusive of procedures, my critical care time is 42 minutes. Leticia Galdamez MD Pulmonary & Critical Care Medicine 03/28/2019 * Kathrine Dolan RD - 03/27/2019 1316 EDT Nutrition Initial Assessment: Reason for Assessment: Consult for enteral nutrition support ? Medical Summary: Shirlene Bryan is a 64 y.o. male admitted on 03/17/2019 with a history of presumed COPD and currentsmoker who was transferred from [facility] on 03/17 for septic shock and ARDS secondary to pneumonia, metabolic acidosis, AF w/ RVR, SIRISHA, and volume overload. Had an acute decompensation 03/20 with hemorrhagic shock and HD instability. Remains HD stable, but with tenuous resp status, delirium and persistent electrolyte abnormalities. Now increasing sedation since 03/24 due to concern for increased volu-trauma on PC ventilation, complicated by hypotension requiring pressors. ?? Subjective: deferred as patient intubated, sedated/unresponsive ?? Current Nutrition Orders: Diet: NPO Tube Feed: Replete @ 70mL/hr continuous (held 03/26) Delegate Diet ordering to RD ?? Nutrition Focused Physical Findings: Cardiovascular-pulmonary: intubated Swallow Function: impaired Nerves and Cognition: sedated, does not follow commands Dentition: missing teeth Vital Signs: Mve ~10 L/min; Tmax 36.6 ??C (97.9 ??F); VCO2 0.23 L/min (avg) Edema: +1 to BUE, +1 to BLE Digestive Systems: Last BM 03/26- 200 mL loose/water stool output via rectal tube over the last 24 hours; OGT in place/clamped; abdomen distended, soft to palpation Skin: deep tissue injury forming to coccyx; skin tear to right arm ?? Anthropometrics: Height: 181.6 cm Admission Weight: 70 kg, BMI 21.2 kg/m?? Current Body Weight: 70.4 kg 03/19 ?? Pertinent Medications: 1.5 g Vitamin C every 6 hours IV, 500 mg CaCarb suspension 3x/day, 60 mg lasix 3x/day, aspart, MVM, nicotine patch, Abx IV, 20 mEq KCl every 2 hours IV, 200 mg thiamine every 12 hours IV, fentanyl drip, ketamine drip, levophed drip at 11 mL/hr, propofol drip at 6 mL/hr ?? Pertinent Labs: 03/27: Crea 1.39, Na 141, K+ 3.6, Mg 2.1, Phos 4.2, Calc Ca 9.1, WBC wnl, Hgb 6.6, Hct 19.8, BG 110 03/25: TG 110 03/18: ferritin 2,643 03/17: albumin 2.2, HgbAlc 6% ?? Estimated Daily Nutrition Needs: 1,670-1,850-2,090 kcal ([facility] - ANANT REE) 105 g Protein (1.5 g/kg) ?? Estimated Nutrition Intake: Less than 60% goal tube feed infused on average 03/18-03/26 NPO/no tube feed 03/17? Assessment: Tube feed held yesterday with concern for mesenteric ischemia. Abdominal imaging this morning has ruled out any acute ischemic findings and Surgery cleared patient for resumption of tube feed which has now been ordered but not hung yet. Plan is for Tracheostomy placement tomorrow, therefore, tube feed will be held again prior to procedure. Suspect loose stool output related, or at least in part, to osmotic diarrhea associated with sorbitol-based meds (ie, CaCarb suspension). Hyperphosphatemia has now resolved, therefore, Phos binder with CaCarb is no longer indicated. Current propofol use providing approx 160 kcal from fat daily. Rx TF Replete formula @70 mL/hr provides daily 1,680 kcal eie313 g protein which is appropriate to continue with current propofol use. Goal tube feed meets SERVICE ASSOCIATE for vitamin/minerals, therefore, MVM is not indicated at this time. ?? Nutrition Risk Level: High (1) ?? Medical Nutrition Therapy Plan and Recommendations: BRANDEN has order writing privileges and will modify the following orders: Continue with Rx TF Replete @70 mL/hr continuous ??Re-check Weight Tuesday, (OVER-DUE) ?? Recommendations requiring MD orders: D/C CaCarb suspension with resolution of hyperphosphatemia D/C MVM Adjust enteral free water as indicated Future Considerations: Order 1 pk Nutrisource Fiber every 8 hours if loose stool persists ?? Kathrine Dolan RD, PRANAV Dee 4 Dietitian Pager: [phone] * Leticia Galdamez MD - 03/27/2019 7067 EDT Critical Care Progress Note Service Date: 03/27/2019 Admit Date: 03/17/2019 9:03 Reason for Admission to ICU: 64 y.o. male with no past medical history and current smoker who was transferred from [facility] on 03/17 and admitted to the MICU for management of septic shock and acute hypoxic respiratory failure secondary to presumed pneumonia. Critical and life-threatening events over the past 24 hours: - Hbg 6.6-transfused 1 unit of blood Subjective/Objective Subjective On ventilator, sedated. Review of Systems Review of systems not obtained due to patient factors: Ventilated, Unable to speak and Unable to comprehend Objective Blood pressure 119/74, temperature 35.6 ??C (96.1 ??F), temperature source Tympanic, resp. rate 25,height 181.6 cm (71.5), weight 70.4 kg (155 lb 3.2 oz), SpO2 98 %. Physical Exam General: Thin man appearing his stated age, intubated and on the ventilator. HEENT: NC/AT. No discharge from eyes, ears, nose, mouth. Cardiovascular: RRR, no murmurs, rubs or gallops. Radial and DP pulses 2+ bilaterally. Respiratory: Crackles at lateral sanderson bilaterally R>L. GI: Distended abdomen. No masses or pulsations appreciated on palpation. : Park present. Musculoskeletal: 1-2+ edema of all 4 extremities. Skin: Bruising on bl upper extremities. Evolving pressure injury, initially noted on HD #2 Neuro: Sedated. Recent Labs 03/25/19 03203/26/19 03003/26/19222103/27/19 0452 CREATININE 1.43* -- 1.66* -- -- 1.39* NA 144 < > 139 < > 138 -- K 4.1 < > 3.5 < > 3.7 -- CL 113* < > 105 < > 108 -- CO2 28 < > 30 < > 26 -- < > = values in this interval not displayed. No results for input(s): TBIL, ALKPHOS, AST, ALT, LIPASE in the last 72 hours. Incorrect component name entered: ALBU Recent Labs 03/25/1932003/26/19 03003/27/19 0452 HGB 7.2* 7.3* 6.6* HCT 22.3* 22.4* 19.8* MCV 97* 97* 95 PLT 151 170 150 WBC 11.07* 8.92 4.55 No results for input(s): PROTIME, INR, PTT in the last 72 hours. ECHO 03/26/2019 Summary: 1. Left ventricle: The cavity size was normal. Wall thickness was normal. Systolic function was hyperdynamic. The estimated ejection fraction was 65-70%. Wall motion was normal; there were no regional wall motion abnormalities. 2. Right ventricle: The cavity size was normal. Wall thicknesswas normal. Systolic function was normal. 3. Pulmonary arteries: Pulmonary systolic pressure was increased, >= 50mm Hg. Left ventricle: The cavity size was normal. Wall thickness was normal. Systolic function was hyperdynamic. The estimated ejection fraction was 65-70%. Wall motion was normal; there were no regional wall motion abnormalities. Portable Chest 1 View Result Date: 03/26/2019 PORTABLE CHEST 1 VIEW 03/26/2019 6:30 AM Clinical History/Comments: Asphyxia and hypoxemia COMPARISON: None. FINDINGS: Single portable AP view of the chest. The tip of the right PICC overlies the middle 3rd of the superior vena cava. Endotracheal tube terminates at the level of the clavicular heads,about 9 cm from the timmy. Enteric tube terminates below the diaphragm, beyond the [id number]. Multifocal pulmonary opacities appear slightly improved, possibly due to technical factors, consistent with ongoing multifocal pneumonia. Small cystic lucencies are compatible with known emphysema. There is a stable small left pleural effusion. No pneumothorax is seen. Bones are unremarkable. Impress ion: 1. Endotracheal tube appears to been retracted, now terminating about 9 cm from the timmy. This could be advanced about 2 to 3 cm for better positioning. 2. Apparent slight improvement in multifocal pulmonary opacities, possibly due to technical factors, consistent with ongoing multifocal pneumonia. 3. Unchanged small left pleural effusion. CT ABDOMEN, PELVIS W/WO CONTRAST 03/26/2019 Impression: 1. A proximal loop of jejunum appears edematous and thickened, with the suggestion of hypoenhancement of the jejunal wall. Jejunal folds in this loop appear to maintain normal enhancement. Mesenteric edema and fluid is seen surrounding this loop. Clinical and laboratory value correlation is recommended. 2. Fecal material throughout the colon is isointense to the wall of the colon, which limits assessment of colonic wall thickness and enhancement. 3. No evidence of pneumatosis or portal venous gas. 4. Moderate to large volume ascites. 5. Marked gallbladder distention without radiopaque cholelithiasis or evidence of gallbladder wall thickening. 6. A 1.2 cm left adrenal nodule is in determinate. In the absence of history of malignancy, this favors an adrenal adenoma. CT CHEST W CONTRAST 03/26/2019 Impression: 1. Findings a progressive multifocal pneumonia within both lungs, particularly within the left lower lobe, with a more diffuse pattern likely reflecting noncardiogenic edema and diffuse alveolar damage. This is superimposed upon severe emphysema. 2. Tubes and lines in position as described. 3. Small bilateral parapneumonic effusions. 4. Moderate aortic and great vessel atheroscleroticcalcification. 5. Mild subcutaneous edema. 6. Mucous right lower lobe airways in particular. Assessment/Plan Assessment Shirlene Bryan is a 64 yo male with a history of presumed COPD and current smoker who was transferred from [facility] on 03/17 for septic shock and ARDS secondary to pneumonia, metabolic acidosis,AF w/ RVR, SIRISHA, and volume overload. Had an acute decompensation 03/20 with hemorrhagic shock and HDinstability. Remains HD stable, but with tenuous resp status, delirium and persistent electrolyte abnormalities. Now increasing sedation since 03/24 due to concern for increased volu-trauma on PC ventilation, complicated by hypotension requiring pressors. Plan PULM: # Acute hypoxic respiratory failure with ARDS Secondary to pneumonia, volume overload, and underlying emphysema (seen on CT). Up-trending FiO2 requirements in the setting of dramatic change in HD status on 03/20, and worsening hypercapnea. Becameagitated and dyssynchronous 03/23 with decrease in sedation. Concern for worsening ARDS/hypoxemia and b/l infiltrates on pressure control 03/[address] shows significant infiltrates with probably some scarring. - Currently on AC-VC, low tidal volume ventilation with 6cc/kg - Vent Settings: FiO2-50, Rate-14, VT-460 (6 mL/kg) PEEP 8 - Diurese with Lasix 60 mg IV q8 - Add daily Indapamide - Antibiotics as below - Trend spO2 and ABG with goal>90%, P/F>100, allow for permissive hypercapnea - Tracheostomy today CV: # Shock Hemorrhagic 03/20 from GI bleed, now resolved s/p 3L of fluid and 4 units of blood product and one unit of platelets. Lactate normal on 03/21/19. Now component of sepsis and sedation meds. - On levophed, titrate to MAP > 65. ?? # AFib with RVR - resolved - Monitor on tele - consider amiodarone if recurrent - Follow Mg level target >2 mg/dl RENAL: # Acute Renal Failure Likely pre-renal, now improving with Cr ~1.39 from peak of 3.49. He has had good UOP and hyperdynamic LV function on US 03/23, significant anasarca/3rd spacing on exam. - Strict input and output, park in place. - Diurese for goal of net even - Electrolytes q6 - Replete K as needed ? Intake/Output Summary (Last 24 hours) at 03/27/2019 0648 Last data filed at 03/27/2019 0500 Gross per 24 hour Intake 2574.98 ml Output 2680 ml Net -105.02 ml ID: #Sepsis 2/2 left lower PNA and MSSA bacteremia Presumed community acquired. Procal trending down previously. MSSA nasal swab positive, legionella and strep pneumo negative. Suspect recurrent septic shock possible abdominal source. - Resume piptazo - PICC line replaced 03/24/19 GI: #Portal Vein Gas - resolved Bedside ultrasound showed gas micro bubbles in portal vein 03/26, concerning for mesenteric ischemiaor other necrotic gut tissue. No gas seen on U/S 03/27. CT A/P with possible ischemia-no gas seen. ACS consulted and not concerned for mesenteric ischemia. Suspect there could have been a transient ischemic gut episode from the levophed. - Resume pip/tazo - F/u bacterial cultures - check BCx - NPO for tracheostomy today #Upper GI Bleed - Now resolved 03/20 Severe UGIB w/ 1.5 L output from NG tube and 0.5L from rectal tube. Hg dropped to 5.8 from 10.7. S/p 3 units of RBC, 1 unit of platelets. Upper EGD showed multiple gastric and duodenal ulcers. No further evidence of GIB at present. - GI consulted, appreciate recs - PPI BID NEURO/PSYCH: #Acute encephalopathy Likely delirium. Increased sedation as above. - Olanzapine 10 mg BID - melatonin qHS - propofol drip as - Wean Fentanyl as able w/ prn boluses - Ketamine 30 mg/hr, wean to 20 mg/hr - Scheduled Acetaminophen ENDO: #Hyperglycemia - [id number] POC G checks - SSI as needed ?? H/O: #Acute blood loss anemia Hgb was 7.2 on 03/24/19 AM, given 3 units of RBC, 1 unit of platelets. 03/27 transfused 1 unit of blood for Hgb 6.6 - Recheck H&H - Transfuse if Hgb <7 - CBC daily ?? DERM #Deep tissue injury - Bruising on coccyx - Wound care consulted, special bed, no progression, some evolution ?? LINES: - A line -placed 03/17, dc within 24-48 hrs - Park - New PICC placed 03/24 ?? PPX: - GI - PPI - DVT - heparin ?? Code status: Full code Clinical Condition: Unstable Critical Care Daily Checklist: Completed Yasmine Falcon 03/27/2019 6:48 Attending attestation statement: I saw and examined the patient with the resident and agree with the findings and plans as documented, and as amended in blue. Clinical Condition: Shirlene Bryan is a critically ill 64 y.o. male. Over the past 24 hours, therehas been a high probability of sudden, clinically significant or life threatening deterioration in the patient???s condition, which include the following diagnoses which I have managed: 1. Acute respiratory failure with hypoxia (HCC-CMS) 2. Atrial fibrillation with RVR (HCC-CMS) 3. SIRISHA (acute kidney injury) (HCC-CMS) 4. ARDS (adult respiratory distress syndrome) (HCC-CMS) Critical Care time was provided in the form of interventions to treat and prevent further life threatening deterioration of the patient???s condition including: Management of mechanical ventilation, and high complexity decision making regarding need for additional imaging studies and / or interventional radiology interventions and the need for critical procedures, such as: tracheostomy. My bedside involvement was required to monitor and direct the critical care that has been provided.Exclusive of procedures, my critical care time is 49 minutes. Leticia Galdamez MD Pulmonary & Critical Care Medicine 03/27/2019 * Flex Flores MD - 03/27/2019 0546 EDT Brief Progress Note: - Transfused additional unit pRBC; suspect chronic disease plus iatrogenic losses. Flex Flores MD * Devora Lara, - 03/27/2019 0441 EDT Respiratory Progress Note Indications for Respiratory therapy: intubated Data Vitals: Heart Rate: 63 BPM, Resp: 21, SpO2: 97 % FIO2/O2 Device: O2 Device: Intubated, FIO2 %: 50 % RT Orders: VC AC 460 x 14 +10 Action/Events Respiratory events; Pt stable on vent overnight; weaned FIO2 to 50% Suctioning white/pale yellow secretions from ETT Response/Results Weaning and Toleration of treatments; No wean overnight as patient is still on 10 of PEEP RT Matthew 03/27/19 * Perez Mullins - 03/26/2019 1558 EDT Spiritual Care Note Re: Shirlene Bryan : 1955, AGE: 64 y.o. Room: [place] [id number] Bit Tapper attempted visit with Shirlene Bryan who is listed as Unknown on 03/26/2019. Need/Assessment: ?? At time of visit Shirlene, was unavailable. ?? If Shirlene, and/or family member needs or would like a icu tech visit, please contact the Spiritual Care Department- call [phone] or if more urgent needs, page us through PASS ([phone]). Chaplain Leila Celis [address] Phone [phone] Spiritual Care is available 24 hours a day. Chaplains are available 24 hours a day. For routine consults please call and leave a message with the Spiritual Care Office ([phone]) and patients will be seen within 24 hours. For all emergent consults page the [facility] or [facility] on-call Bit Tapper through PAS ([phone]). * Janel Sousa RT - 03/26/2019 1143 EDT Respiratory Care Transport Note (Internal) Pre-transport - . Heart Rate: 89 BPM, Resp: 17, SpO2: 95 %, BP: 119/74. The patient was placed on the transport vent with settings of AC 460x14+10 50%. The patient was noted to be stable on these settings. The resuscitation bag, mask and syringe were available during transport. Transport- The patient was transported to and from CT scan without incident. The SpO2 remained at 95% throughout the transport and no critical changes in HR, BP or RR noted. Post-transport- Once the patient was returned to their room and placed on the ICU vent with previous settings; a full vent check was performed. Please see the ventilator flowsheet for charting. All emergency equipment was returned to the patient's HOB. RT SARA 03/26/19 * Jeyson Garcia MD - 03/26/2019 1001 EDT Gastroenterology & Hepatology Follow-Up Note 24 Hour events Patient is still intubated and sedated requiring two pressor support to maintain MAP>65. From GIperspective, there is no evidence of ongoing bleed with stable Hgb with last blood transfusion received on 03/21/19. ROS: A 10-point ROS was performed and is negative except for what is detailed above. Meds reviewed Physical Exam: Gen: Thin male,intubated and sedated HEENT: Anicteric sclerae, MMM, bitemporal wasting CV: s1s2 no MRG Lungs: CTA bilaterally Neuro: Deferred Extrem: no ROSIE, luisito uex bruises Skin: No rash GI: distended; soft, non-tender, hypoactive BS+ Rectal Exam: Rectal tube with dark brown stool Labs and Imaging: Lab Results Component Value Date ALT 90 (H) 03/17/2019 AST 146 (H) 03/17/2019 ALKPHOS 109 03/17/2019 TBIL 1.1 03/17/2019 LABALBU 2.2 (L) 03/17/2019 CREATININE 1.66 (H) 03/26/2019 NA 139 03/26/2019 WBC 8.92 03/26/2019 HGB 7.3 (L) 03/26/2019 HCT 22.4 (L) 03/26/2019 MCV 97 (H) 03/26/2019 PLT 170 03/26/2019 INR 1.7 (H) 03/20/2019 Impression: Shirlene Bryan 64 yo with a PMH sig for tobacco abuse who is currently admitted to theICU for acute respiratory failure 2/2 pneumonia with ARDS and septic shock in pressor support. Hospital course complicated by hemorrhagic shock after initiation of heparin for A fibb RVR now s/p EGD showing gastric and duodenal ulcers with possible visible vessel treated with a clip. Hgb continues to be stable with no evidence of ongoing bleed. Gastric biopsies are negative for H pylori. Plan: -continue IV PPI - daily cbc - Avoid NSAIDs - we will sign off. Please call with question Patient was seen and examined with Dr. Jonathan COOPER MD Gastroenterology & Hepatology Fellow Attestation statement: I saw and examined the patient with the resident/fellow. I agree with the findings and plan of care documented in the resident's/fellow's note. No evidence of recurrent bleeding. No h pylori on biopsy. New onset ascites is of indeterminate etiology. Could consider diagnostic paracentesis to measure a SAAG. * Leticia Galdamez MD - 03/26/2019 0630 EDT Critical Care Progress Note Service Date: 03/26/2019 Admit Date: 03/17/2019 9:03 Reason for Admission to ICU: 64 y.o. male with no past medical history and current smoker who was transferred from [facility] on 03/17 and admitted to the MICU for management of septic shock and acute hypoxic respiratory failure secondary to presumed pneumonia. Critical and life-threatening events over the past 24 hours: - Portal vein gas found on ultrasound Subjective/Objective Subjective On ventilator, sedated. Review of Systems Review of systems not obtained due to patient factors: Ventilated, Unable to speak and Unable to comprehend Objective Blood pressure 119/74, temperature 36 ??C (96.8 ??F), temperature source Tympanic, resp. rate 17, height 181.6 cm (71.5), weight 70.4 kg (155 lb 3.2 oz), SpO2 92 %. Physical Exam General: Thin man appearing his stated age, intubated and on the ventilator. HEENT: NC/AT. No discharge from eyes, ears, nose, mouth. Cardiovascular: RRR, no murmurs, rubs or gallops. Radial and DP pulses 2+ bilaterally. Respiratory: Crackles at lateral sanderson bilaterally R>L. GI: Distended abdomen. No masses or pulsations appreciated on palpation. : Park present. Musculoskeletal: 1-2+ edema of all 4 extremities. Skin: Bruising on bl upper extremities. Evolving pressure injury, initially noted on HD #2 Neuro: Sedated. Assessment/Plan Assessment Shirlene Bryan is a 64 yo male with a history of presumed COPD and current smoker who was transferred from [facility] on 03/17 for septic shock and ARDS secondary to pneumonia, metabolic acidosis,AF w/ RVR, SIRISHA, and volume overload. Had an acute decompensation 03/20 with hemorrhagic shock and HDinstability. Remains HD stable, but with tenuous resp status, delirium and persistent electrolyte abnormalities. Now increasing sedation since 03/24 due to concern for increased volu-trauma on PC ventilation, complicated by hypotension requiring pressors. Now with portal vein gas found on U/S. Plan PULM: # Acute hypoxic respiratory failure with ARDS Secondary to pneumonia, volume overload, and underlying emphysema (seen on CT). Up-trending FiO2 requirements in the setting of dramatic change in HD status on 03/20, and worsening hypercapnea. Becameagitated and dyssynchronous 03/23 with decrease in sedation. Concern for worsening ARDS/hypoxemia and b/l infiltrates on pressure control 03/24 AM. - Currently on AC-VC, low tidal volume ventilation with 6cc/kg - Vent Settings: FiO2-60, Rate-14, VT-460 (6 mL/kg) PEEP 10 - diurese with Lasix 60 mg IV, re-dose for goal net even to 1L net negative - Antibiotics as below - Trend spO2 and ABG with goal>90%, P/F>100, allow for permissive hypercapnea - Consider tracheostomy given difficulty with weaning sedation and now intubated for ~[address] shows sig infiltrates probably with some scarring Suspect prolonged vent weaning, will persue trache CV: # Shock Hemorrhagic 03/20 from GI bleed, now resolved s/p 3L of fluid and 4 units of blood product and one unit of platelets. Lactate normal on 03/21/19. Now component of sepsis and sedation meds. - On levophed, titrate to MAP > 65. ?? # AFib with RVR - resolved - Monitor on tele - consider amiodarone if recurrent - Follow Mg level target >2 mg/dl RENAL: # Acute Renal Failure Likely pre-renal, now improving with Cr ~1.66 from peak of 3.49. He has had good UOP and hyperdynamic LV function on US 03/23, significant anasarca/3rd spacing on exam. - 3 doses of IV Lasix- Cr bumped, hold lasix - Strict input and output, park in place. ?? #Hypernatremia - resolved - Can stop free water - trend electrolytes q12 ?? Intake/Output Summary (Last 24 hours) at 03/26/2019 0630 Last data filed at 03/26/2019 0600 Gross per 24 hour Intake 6500.24 ml Output 6210 ml Net 290.24 ml ID: #Sepsis 2/2 left lower PNA and MSSA bacteremia Presumed community acquired. Procal trending down previously. MSSA nasal swab positive, legionella and strep pneumo negative. - Stop nafcillin and change to Pip/Tazo - PICC line replaced 03/24/19 ?? Suspect recurrent septic shock likely abdominal source Resume piptazo, check BCx, check PCT CT A/P with possible ischemia - will consult surgery Bedside ultrasound showed gas micro bubbles in portal vein, concerning for mesenteric ischemia or other necrotic gut tissue. GI: #Portal Vein Gas Air bubbles found on U/S. DDx includes bowel perforation, mesenteric ischemia, complication of diverticulitis, acute pancreatitis, obstructive pyelonephritis. This can also be seen following endoscopic procedure, which pt received 03/21 - Change atb to pip/tazo - Obtain chest/Abd/pelvis CT angio - Bacterial cultures - Procalcitonin - discontinue tube feeds #Upper GI Bleed - Now resolved 03/20 Severe UGIB w/ 1.5 L output from NG tube and 0.5L from rectal tube. Hg dropped to 5.8 from 10.7. S/p 3 units of RBC, 1 unit of platelets. Upper EGD showed multiple gastric and duodenal ulcers. No further evidence of GIB at present. - GI consulted, appreciate recs - PPI BID NEURO/PSYCH: #Acute encephalopathy Likely delirium. Increased sedation as above. - Increase Olanzapine to 10 mg BID - melatonin qHS - propofol drip as able - Wean Fentanyl - Fentanyl prn bolus - Ketamine 30 mg/hr - Change Acetaminophen to scheduled ENDO: #Hyperglycemia - [id number] POC G checks - SSI as needed ?? H/O: #Acute blood loss anemia As above. Hgb was 7.2 on 03/24/19 AM, given 3 units of RBC, 1 unit of platelets. Hgb stable ~7 - Transfuse if Hgb <7 - CBC daily ?? DERM #Deep tissue injury - Bruising on coccyx - Wound care consulted, special bed, no progression, some evolution ?? LINES: - A line -placed 03/17, dc within 24-48 hrs - Park - New PICC placed 03/24 ?? PPX: - GI - PPI - DVT - heparin ?? Code status: Full code Clinical Condition: Unstable Critical Care Daily Checklist: Completed Yasmine Falcon 03/26/2019 6:30 Attending attestation statement: I saw and examined the patient with the resident and agree with the findings and plans as documented, and as amended in blue. Clinical Condition: Shirlene Bryan is a critically ill 64 y.o. male. Over the past 24 hours, therehas been a high probability of sudden, clinically significant or life threatening deterioration in the patient???s condition, which include the following diagnoses which I have managed: 1. Acute respiratory failure with hypoxia (HCC-CMS) 2. Atrial fibrillation with RVR (HCC-CMS) 3. SIRISHA (acute kidney injury) (HCC-CMS) 4. ARDS (adult respiratory distress syndrome) ([facility]-CMS) Critical Care time was provided in the form of interventions to treat and prevent further life threatening deterioration of the patient???s condition including: Management of mechanical ventilation, and high complexity decision making regarding vasopressor titration and antibiotic selection. My bedside involvement was required to monitor and direct the critical care that has been provided.Exclusive of procedures, my critical care time is 49 minutes. Leticia Galdamez MD Pulmonary & Critical Care Medicine 03/26/2019 * Jatinder Monreal, RT - 03/26/2019 0541 EDT Respiratory Progress Note Indications for Respiratory therapy: ARDS, Intubated/Vent Data Vitals: Heart Rate: 86 BPM, Resp: 20, SpO2: 91 % FIO2/O2 Device: , , O2 Device: Intubated, FIO2 %: 50 % RT Orders: VC - AC 460 x 14 +10 (6 cc/kg, ARDS Protocol, Autoflow Off) PRN IPV PRN Duoneb Action/Events Patient rested overnight on vent with no adverse reaction noted. FiO2 weaned to 50%. Peak Flow No SBT wean attempted as patient doesn't meet criteria. Suctioned for small amount of thick thin yellow white secretions. Response/Results Trach being considered. Continue to wean vent as tolerated. JATINDER MONREAL, RT 03/26/19 * Shayla Galvin RN - 03/26/2019 0033 EDT Rass of -5 on Propofol/Ketamine/Fentanyl gtts for ventilator synchrony, no S+S of pain noted, SR, Levophed gtt increased from 14mcg/min to 30mcg/min post Lasix received on evening shift to maintain MAP's >65mmHg: to cont F/U, to draw am labwork and to F/U with results, TF not infusing at goal rate for high residuals: to cont monitoring, free water for Na control, to draw am labwork and to F/U with results, pt diuresing with Lasix, flexiseal with watery green/black stool. * Esther Canas, RT - 03/25/2019 0812 EDT Respiratory Progress Note Indications for Respiratory therapy: ARDS, Intubated/Vent Data Vitals: Heart Rate: 71 BPM, Resp: 16, SpO2: 96 % FIO2/O2 Device: O2 Device: Intubated, FIO2 %: 60 % RT Orders: VC-AC 460 x14 +10 (6 cc/kg, ARDS Protocol, Autoflow Off) PRN IPV PRN Duoneb Action/Events Respiratory events; Suctioning a small amount of white/yellow, thick/thin secretions. FIO2 weaned to 60%. PEEP increased to 10 per ARDS protocol. Flow decreased to 70 from 80 to help decrease PIPs. Team considering ENT consult for eventual trach. Planning to diurese today. Wean vent settings as indicated. Continue as ordered. RT Sarah 03/25/19 * Domenica Esquivel MD - 03/25/2019 0733 EDT Critical Care Progress Note Service Date: 03/25/2019 Admit Date: 03/17/2019 9:03 Reason for Admission to ICU: 64 y.o. male with no past medical history and current smoker who was transferred from [facility] on 03/17 and admitted to the MICU for management of septic shock and acute hypoxic respiratory failure secondary to presumed pneumonia. Critical and life-threatening events over the past 24 hours: -Worsening CXR bilateral opacities -Increased sedation with Propofol required reinitiation of norepinephrine for MAP >65 Subjective/Objective Subjective On ventilator, sedated. Review of Systems Review of systems not obtained due to patient factors: Ventilated, Unable to speak and Unable to comprehend Objective Blood pressure 119/74, temperature 36.5 ??C (97.7 ??F), temperature source Tympanic, resp. rate 16,height 181.6 cm (71.5), weight 70.4 kg (155 lb 3.2 oz), SpO2 96 %. Physical Exam General: Thin man appearing his stated age, intubated and on the ventilator. HEENT: NC/AT. No discharge from eyes, ears, nose, mouth. Cardiovascular: RRR, no murmurs, rubs or gallops. Radial and DP pulses 2+ bilaterally. Respiratory: Crackles at lateral sanderson bilaterally R>L. GI: Distended abdomen. No masses or pulsations appreciated on palpation. : Park present. Musculoskeletal: 1-2+ edema of all 4 extremities. Skin: Bruising on bl upper extremities. Evolving pressure injury, initially noted on HD #2 Neuro: Sedated. Assessment/Plan Assessment Shirlene Bryan is a 64 yo male with a history of presumed COPD and current smoker who was transferred from [facility] on 03/17 for septic shock and ARDS secondary to pneumonia, metabolic acidosis,AF w/ RVR, SIRISHA, and volume overload. Had an acute decompensation 03/20 with hemorrhagic shock and HDinstability. Remains HD stable, but with tenuous resp status, delirium and persistent electrolyte abnormalities. Now increasing sedation since 03/24 due to concern for increased volu-trauma on PC ventilation, complicated by hypotension requiring pressors. Plan PULM: # Acute hypoxic respiratory failure with ARDS Secondary to pneumonia, volume overload, and underlying emphysema (seen on CT). Up-trending FiO2 requirements in the setting of dramatic change in HD status on 03/20, and worsening hypercapnea. Becameagitated and dyssynchronous 03/23 with decrease in sedation. Concern for worsening ARDS/hypoxemia and b/l infiltrates on pressure control 03/24 AM. - Currently on AC-VC, low tidal volume ventilation with 6cc/kg - Vent Settings: FiO2-60, Rate-14, VT-460 (6 mL/kg) PEEP 10 - diurese with Lasix 60 mg IV, re-dose for goal net even to 1L net negative - Antibiotics as below - Trend spO2 and ABG with goal>90%, P/F>100, allow for permissive hypercapnea - Consider tracheostomy given difficulty with weaning sedation and now intubated for ~9 days CV: # Shock Likely hemorrhagic 03/20 from GI bleed, now resolved s/p 3L of fluid and 4 units of blood product and one unit of platelets. Lactate normal on 03/21/19. Now low BP likely due to Propofol/increased sedation. - On levophed, titrate to MAP > 65. ?? # AFib with RVR - resolved - Monitor on tele - consider amiodarone if recurrent - Follow Mg level target >2 mg/dl ?? RENAL: # Acute Renal Failure Likely pre-renal, now improving with Cr ~1.4 from peak of 3.49. He has had good UOP and hyperdynamic LV function on US 03/23, significant anasarca/3rd spacing on exam. - diurese today with IV Lasix as above - Strict input and output, park in place. ?? #Hypernatremia - resolved - Reassess lytes after lasix dose to determine whether to d/c free water in feeding tube - trend electrolytes q12 #Hypokalemia K of 2.4 down from 4.1 today 03/25. - Replete as needed for K > 4 ?? Intake/Output Summary (Last 24 hours) at 03/25/2019 0733 Last data filed at 03/25/2019 0700 Gross per 24 hour Intake 7933.23 ml Output 2860 ml Net 5073.23 ml ID: #Sepsis 2/2 left lower PNA and MSSA bacteremia Presumed community acquired. Procal trending down previously. MSSA nasal swab positive, legionella and strep pneumo negative. - Continue nafcillin 2g (until 03/28) - PICC line replaced 03/24/19 ?? NEURO/PSYCH: #Acute encephalopathy Likely delirium. Increased sedation as above. - Olanzapine 5 mg BID - melatonin qHS - Wean off propofol drip as able - Fentanyl 100 mcg/hr - Fentanyl prn bolus - Ketamine 30 mg/hr - Acetaminophen 1000mg prn ENDO: #Hyperglycemia - [id number] POC G checks - SSI as needed GI: #Upper GI Bleed - Now resolved 03/20 Severe UGIB w/ 1.5 L output from NG tube and 0.5L from rectal tube. Hg dropped to 5.8 from 10.7. S/p 3 units of RBC, 1 unit of platelets. Upper EGD showed multiple gastric and duodenal ulcers. No further evidence of GIB at present. - GI consulted, appreciate recs - PPI BID - Continue tube feeds ?? H/O: #Acute blood loss anemia As above. Hgb was 7.2 on 03/24/19 AM, given 3 units of RBC, 1 unit of platelets. Hgb 7.2 today 03/25. - Transfuse if Hgb <7 - CBC daily ?? DERM #Deep tissue injury - Bruising on coccyx - Wound care consulted, special bed, no progression, some evolution ?? LINES: - A line -placed 03/17 - Park - New PICC placed 03/24 ?? PPX: - GI - PPI - DVT - heparin ?? Code status: Full code Clinical Condition: Unstable Critical Care Daily Checklist: Completed Yasmine Falcon 03/25/2019 7:33 Attending attestation statement: I saw and examined the patient with the resident and agree with the findings and plans as documented, and as amended in blue. Clinical Condition: Shirlene Bryan is a critically ill 64 y.o. male. Over the past 24 hours, therehas been a high probability of sudden, clinically significant or life threatening deterioration in the patient???s condition, which include the following diagnoses which I have managed: Active Problems: Acute respiratory failure with hypoxia Septic shock ARDS (adult respiratory distress syndrome) SIRISHA (acute kidney injury) Anemia Thrombocytopenia MSSA Bacteremia Acute Encephalopathy Atrial fibrillation Critical Care time was provided in the form of interventions to treat and prevent further life threatening deterioration of the patient???s condition including: Management of mechanical ventilation, Neurological monitoring, Management of pain and sedation, Fluid and electrolyte management, Antimicrobial therapy and Management of vasopressors, and high complexity decision making regarding candidacy for extubation and need for additional imaging studies and / or interventional radiology interventions and the need for critical procedures, such as: central line , arterial line and bronchoscopy. My bedside involvement was required to monitor and direct the critical care that has been provided.Exclusive of procedures, my critical care time is 45 minutes. Domenica Esquivel MD MICU Attending 03/25/2019 * Shayla Galvin RN - 03/24/2019 4198 EDT Rass of -5 on Propofol/Ketamine/Fentanyl gtts but sedation not weaned since pt is synchonous with ventilator, SR, Levophed gtt for MAP's >65mmHg: to wean as tolerated, vent with FiO2 of 60% and PEEP of 8: see ABG results, breathing on vent is laboured and guppy breathing pattern, no S+S of pain noted, TF @ goal rate without residuals via OGT and free water @ 200cc/hr for hypernatremia: to cont F/U with Na, to draw am labwork and to F/U with results, U/O >30cc/hr, flexiseal with watery stool. * Verona Mills RN - 03/24/2019 1900 EDT Data: assumed care at 0700. Early discussion with MD about respiratory settings and sedation. Pt back on ARDS protocol for worsesing oxygenation and worsening xray. Sedated with fentanyl, propofol, ketamine. Levophed to counterbalance hypotension due to sedation. Pt is very sensitive to sedation, but needs its for ventilation purposes. Action: assessed as ordered. Meds per sep. Sedation workign well today allowing vent to work ards protocol. q2 turns. Tube feeds running. PICC replaced by PICC team. mepilex to coccyx. Response: VSS. Partner visited today. Hct clitical, resent per new order. All needs anticipated. Verona Mills RN 03/24/2019 19:00 * Shelly Mann RN - 03/24/2019 1432 EDT Vascular Access Progress Note Diagnosis: Active Hospital Problems Diagnosis ??? Septic shock (HCC-CMS) ??? ARDS (adult respiratory distress syndrome) (HCC-CMS) ??? SIRISHA (acute kidney injury) (HCC-CMS) ??? Anemia ??? Thrombocytopenia (HCC-CMS) ??? Bacteremia ??? Fever ??? Encephalopathy ??? Atrial fibrillation with RVR (HCC-CMS) ??? Acute respiratory failure with hypoxia (HCC-CMS) Reason for PICC line: Replace malpositioned PICC Recommendations: Triple PICC/Central Line/Pacer history (Review documents, ask patient): replace present PICC line Labs: Lab Results Component Value Date PROTIME 20.2 (H) 03/20/2019 INR 1.7 (H) 03/20/2019 Lab Results Component Value Date WBC 8.54 03/24/2019 Lab Results Component Value Date PLT 155 03/24/2019 Lab Results Component Value Date CALCGFR 53 (L) 03/24/2019 Blood Cultures (negative at 48, 72 hour for yeast?) No Contraindications to PICC Insertion (presence of any requires comment): Hx of thrombus-look for Doppler studies? No Unavailable arm (stroke, injury, surgical site, lymphedema, or fistula)? GIA Renal compromise needs attending or Nephrology order-Order needed? No, Replace malpositioned PICC Devices in the SVC? GIA Crutches or Walker? GIA IVC Filter or Pacer? GIA Temp >38.5 in 24hrs? No Existing lines? Yes Patient education completed? [facility] RN at bedside Shelly Mann RN * Esther Canas RT - 03/24/2019 1028 EDT Respiratory Progress Note Indications for Respiratory therapy: ARDS, Intubated/Vent Data Vitals: Heart Rate: 66 BPM, Resp: 19, SpO2: 99 % FIO2/O2 Device: O2 Device: Intubated, FIO2 %: 70 % RT Orders: VC-AC 460 x14 +8 (6 cc/kg, ARDS Protocol, Autoflow Off) PRN IPV PRN Duoneb Action/Events Respiratory events; 0806 AB.43/43/56/30 on PC-SIMV, PEEP 8, 70% FIO2 (indicating severe ARDS). Vent mode was subsequently changed to VC-AC, and a low tidal volume strategy was initiated per the ARDS protocol (see above settings). 1006 AB.35/48/69/28 after roughly one hour on new mode. Plateau pressures rangingbetween 15-19. Patient and vent have been synchronous. Secretions continue to be difficult to mobilize and are white/yellow and thick. A combination of bagging, lavaging and suctioning seems to be the most efficient method for removing secretions. Patient is comfortable and well-sedated. Will continue to monitor and wean as indicated per ARDS protocol. RT Sarah 03/24/19 * Reta Al, RD - 03/24/2019 0946 EDT Nutrition reassessment: ?? Current Nutrition Orders: TF restarted: Perative at 57 cc/hr + 30 cc prosource YU=477 cc q 4 hr ?? Nutrition Focused Physical Findings: Edema: trace Digestive Systems: Last BM : today, bloody, RT in with over 600 cc outpt yesterday Skin: tear, bruising ?? Anthropometrics: Height: 71.5 Admission Weight: 70K Current Body Weight: 70.4 on 03/19 Weight Change: +4 kg ?? Pertinent Medications: Current Facility-Administered Medications: acetaminophen (TYLENOL) tablet 1,000 mg oral Q6H PRN alteplase (CATHFLO ACTIVASE) injection 2 mg intercatheter PRN amino acids-protein hydrolysate (PRO SOURCE NOCARB) packet 30 mL oral DAILY amiodarone (PACERONE) tablet 400 mg oral BID ascorbic acid (vitamin C) (VITAMIN C) tablet 500 mg oral DAILY calcium carbonate suspension 500 mg oral TID dextrose 50 % solution 12.5-25 g intravenous PRN fentanyl 50 mcg/ml (SUBLIMAZE) syringe, 30 ml intravenous CONTINUOUS fentaNYL citrate (PF) injection 25-100 mcg intravenous Q1H PRN glucagon injection 1 mg intramuscular PRN insulin aspart U-100 (NOVOLOG FLEXPEN) injection subcutaneous Q6H ipratropium-albuterol (DUONEB) 0.5 mg-3 mg(2.5 mg base)/3 mL nebulizer solution 3 mL nebulization Q6H PRN ketAMINE (KETALAR) 500mg in NaCl 0.9% 50ml syringe intravenous CONTINUOUS melatonin tablet 5 mg oral QHS nafcillin 2,000 mg in sodium chloride (NS MBP) 100 mL IVPB intravenous Q4H nicotine (NICODERM CQ) 7 mg/24 hr patch 1 Patch transdermal DAILY OLANZapine (ZYPREXA) tablet 5 mg oral BID pantoprazole (PROTONIX) injection 40 mg intravenous BID papain-alpha amylase-cellulase (CLOG ZAPPER) 2-5 mL feeding tube PRN perative 0.067-1.30 gram-kcal/mL per ng tube CONTINUOUS propOFol (DIPRIVAN) 1000 mg in 100 mL infusion intravenous CONTINUOUS replete nutritional supplement liquid per g tube CONTINUOUS senna (SENOKOT) tablet 2 Tab oral BID PRN Or sennosides (SENOKOT) syrup 17.6 mg per ng tube BID PRN sodium chloride 0.9 % (flush) flush 10 mL intercatheter WEEKLY sodium chloride 0.9 % (NS) infusion intravenous CONTINUOUS Pertinent Labs: Ca 7.2 crea 1.3 Na 149 K/mg/phos:nl ?? Estimated Nutrition Intake: Except for yesterday has received <80% of needs ?? Assessment: TF restarted and pt needing more volume, will change to less concentrated formula: Replete at 70 cc/hr and d/c prosource to provide 1680 masood (IRJ/BEE x 1.1), 1.5 gm pro/kg, 1.4 L FW Change CaCO3 to crushed tabs as the suspension causes osmotic diarrhea and pt is having excessive loose stool, if this doesn't help much will change to high fiber formula Monitor wt Nutrition Risk Level: High (1) Medical Nutrition Therapy Plan and Recommendations: RD has order writing privileges and will modify the following orders: I changed TF to Replete at 70 cc/hr and d/olivia prosource: this will increase FW to 1.4 L/day Order wt Recommendations requiring MD orders: Change CaCO3 suspension to crushed tabs Reta Al [address] [place] [id number] Dietitian Pager: [phone] * Domenica Esquivel MD - 03/24/2019 0735 EDT Critical Care Progress Note Service Date: 03/24/2019 Admit Date: 03/17/2019 9:03 Reason for Admission to ICU: 64 y.o. male with no past medical history and current smoker who was transferred from [facility] on 03/17 and admitted to the MICU for management of septic shock and acute hypoxic respiratory failure secondary to presumed pneumonia. Critical and life-threatening events over the past 24 hours: -Worsening CXR bilateral opacities -PICC malpositioned in left BC vein. -Increased tidal volumes on PC prompted need for deeper sedation to allow for lung protective strategy. -Increased sedation required reinitiation of norepinephrine for MAP >65 Subjective/Objective Subjective On ventilator, moving extremities spontaneously. Review of Systems Review of systems not obtained due to patient factors: Ventilated, Unable to speak and Unable to comprehend Objective Blood pressure 119/74, temperature 35.9 ??C (96.6 ??F), temperature source Tympanic, resp. rate 17,height 181.6 cm (71.5), weight 70.4 kg (155 lb 3.2 oz), SpO2 98 %. Physical Exam General: Thin man appearing his stated age, intubated and on the ventilator. HEENT: NC/AT. No discharge from eyes, ears, nose, mouth. Cardiovascular: RRR, no murmurs, rubs or gallops. Radial and DP pulses 2+ bilaterally. Respiratory: Crackles at lateral sanderson bilaterally R>L. GI: Non-distended abdomen. No masses or pulsations appreciated on palpation. : Park present. Musculoskeletal: Sedated. Skin: Bruising on bl upper extremities. Evolving pressure injury, initially noted on HD #2 Neuro: Moving extremities spontaneously. Does not follow commands. Assessment/Plan Assessment Shirlene Bryan is a 64 yo male with a history of COPD and current smoker who was transferred from [facility] on 03/17 for septic shock and ARDS secondary to pneumonia, metabolic acidosis, AF w/ RVR, SIRISHA, and volume overload. Had an acute decompensation 03/20 with hemorrhagic shock and HD instability. Remains HD stable, but with tenuous resp status, delirium and persistent electrolyte abnormalities. Now increasing sedation due to concern for increased volu-trauma on PC ventilation, complicatedby hypotension requiring pressors. Plan PULM: # Acute hypoxic respiratory failure with ARDS - Secondary to pneumonia, volume overload, and underlying emphysema (seen on CT). Up-trending FiO2 requirements in the setting of dramatic change in HD status on 03/20, and worsening hypercapnea. Became agitated and dyssynchronous 03/23 with decrease in sedation, concern for worsening ARDS/hypoxemia and b/l infiltrates on pressure control, Vt ~700-800cc. Will increase sedation and resume AC-VC with low tidal volume vent, goal 6cc/kg and auto-flow OFF. - Currently on AC, - Vent Settings: VC-AC, FiO2-70, Rate-14, VT-460 (6 mL/kg) PEEP 8 - Hold diuresis today, given need for pressors and hyperdynamic cardiac function on US 03/23. - Antibiotics as below - Sedation wt - Trend spO2 and ABG with goal > 90%, P/F > 100, allow for permissive hypercapnea CV: # Shock - Likely hemorrhagic 03/20 from GI bleed, now resolved s/p 3L of fluid and 4 units of blood product and one unit of platelets. Lactate normal on 03/21/19. Now low BP likely due to Propofol/increased sedation. - Now on norepinephrine gtt, titrate to MAP > 65. ?? # AFib with RVR - Now resolved - Monitor on tele - consider amiodarone if recurrent - Follow Mg level target >2 mg/dl ?? RENAL: # Acute Renal Failure - Likely pre-renal, now improving with Cr 1.38 from peak of 3.49. - Has had good UOP and hyperdynamic on US yesterday 03/23, suspect intravascularly dry despite 3rd spacing seen on exam. - Now on pressors will hold off on further diuresis today 03/24. - Strict input and output, park in place. ?? #Hypernatremia 2/2 to tube feeds w/o free water - Increase free water in feeding tube to 200ml/hr - trend electrolytes q12 ?? Intake/Output Summary (Last 24 hours) at 03/24/2019 0735 Last data filed at 03/24/2019 0700 Gross per 24 hour Intake 7152.26 ml Output 6495 ml Net 657.26 ml ID: #Sepsis 2/2 left lower PNA and MSSA bacteremia - Presumed community acquired. Procal trending down previously. MSSA nasal swab positive, legionella and strep pneumo negative. - Continue nafcillin 2g - Central line out - PICC line replaced 03/24/19 ?? NEURO/PSYCH: #Acute encephalopathy - Likely delirium. Increasing sedation as above. - Olanzapine 5 mg BID - melatonin qHS - switch back to propofol gtt given poor toleration of precedex. - Fentanyl 100 mcg/hr - Fentanyl prn bolus - Ketamine 30 mg/hr - Acetaminophen 1000mg prn ENDO: #Hyperglycemia - Glucoses had been 108-123 with insulin drip. - [id number] POC G checks - SSI as needed GI: #Upper GI Bleed - 03/20 Severe UGIB w/ 1.5 L output from NG tube and 0.5L from rectal tube. Hg dropped to 5.8 from 10.7. S/p 3 units of RBC, 1 unit of platelets. Upper EGD showed multiple gastric and duodenal ulcers. No further evidence of GIB at present 03/24. - GI consulted, appreciate recs - PPI BID - Continue tube feeds ?? H/O: #Acute blood loss anemia - As above. Hgb was 7.2 on 03/24/19 AM, given 3 units of RBC, 1 unit of platelets. Hgb stable at ~7-8. - Repeat CBC 03/24/19 @ 1800 given near transfusion threshold Hgb. - Transfuse if Hgb <7 - CBC daily #Thrombocytopenia - Now resolved. S/p 1 unit of platelets. Given dramatic improvement upon resolution of GIB, may have initially been 2/2 to sepsis but complicated by consumption. - Monitor CBC ?? DERM #Deep tissue injury - Bruising on coccyx - wound care Consulted, special bed, no progression, some evolution ?? LINES: - A line -placed 03/17 - Park - New PICC placed today 03/24 ?? PPX: - GI - PPI - DVT - Not on heparin due to GI bleed - will consider resuming tomorrow / sun if no recurrent bleed ?? Code status: Full code Clinical Condition: Unstable Critical Care Daily Checklist: Completed BETZY ZEE MD 03/24/2019 7:35 Attending attestation statement: I saw and examined the patient with the resident and agree with the findings and plans as documented, and as amended in blue. Clinical Condition: Shirlene Bryan is a critically ill 64 y.o. male. Over the past 24 hours, therehas been a high probability of sudden, clinically significant or life threatening deterioration in the patient???s condition, which include the following diagnoses which I have managed: Active Problems: Acute respiratory failure with hypoxia Shock ARDS (adult respiratory distress syndrome) SIRISHA (acute kidney injury) Anemia Thrombocytopenia Encephalopathy, Delirium Critical Care time was provided in the form of interventions to treat and prevent further life threatening deterioration of the patient???s condition including: Management of mechanical ventilation, Observation before/during/after ventilator weaning, Neurological monitoring, Management of pain and sedation, Fluid and electrolyte management and Antimicrobial therapy, and high complexity decision making regarding candidacy for extubation and need for additional imaging studies and / or interventional radiology interventions and the need for critical procedures, such as: central line , arterial line and bronchoscopy. My bedside involvement was required to monitor and direct the critical care that has been provided.Exclusive of procedures, my critical care time is 50 minutes. Domenica Esquivel MD MICU Attending 03/24/2019 * Domenica Nelson, RT - 03/24/2019 0430 EDT Respiratory Progress Note Indications for Respiratory therapy: vent support Data Vitals: Heart Rate: 63 BPM, Resp: 20, SpO2: 100 % FIO2/O2 Device: , , O2 Device: Intubated, FIO2 %: 70 % RT Orders: PCV+SIMV (Mechanical Ventilation) [[id number]] CONTINUOUS ?Discontinue References: ARDS/ALI Protocol?Post Op Protocol?Weaning Protocol?ETCO2 Protocol Question Answer Comment Set Rate (f/min) 14 PIP (cm H2O) 18 Pressure Support (cm H2O) 5 Peep (cm H2O) 8 Non-Invasive No ETCO2 Protocol: Yes Action/Events Respiratory events; Patient received on current vent settings. Size 8 ETT , 25 at the lip. fio2 was decreased but then later in night had to increased. Daily weaning trial was not done due to patient agitation. Breath sounds diminished. ambu bag in room and vent plugged into red outlet. Response/Results Weaning and Toleration of treatments; Pt tolerating well RT HIMANSHU 03/24/19 * Verona Mills, RN - 03/23/2019 2367 EDT Data: assumed care at 0700. Intubated and sedated. Does nto follow commands, although moves all extremities. Restless. Transitioned from propofol+fentanyl, to precedex+fentanyl+levo, to ketamine+fentanyl now. desating in late afternoon with vent changes. MD aware and assessing patient throughout the day. lasix and diuril received. Action: assessed as ordered, meds per sep. Prn fentanyl for agitation. q2 turns, although does shift on his own at times. mepilex on coccyx. Rectal tube, park in place. IJ removed, PICC in place. Response: VSS at this time, although very labile and sensitive to sedation changes. Rectal tube remains in place. Park remains in place. Verona Mills RN 03/23/2019 18:46 * Trey Tolentino MD, MD - 03/23/2019 1840 EDT Infectious Disease Inpatient Follow-Up Patient: Shirlene Bryan : 1955 Date of Admission: 03/17/2019 Date of Service: 03/23/19 Reason for Visit: follow up Staph aureus bacteremia Interval History This is our 64yo gentleman who was transferred to [facility] on 03/17/19 from [facility] where he presented 03/15 w/ progressive pneumonia/respiratory failure. Blood at [facility] grew MSSA. Since last ID visit 03/22 he remains intubated in the ICU. He's on increased sedation and back on a low dose of pressors. He has been afebrile for >48h and his WBC has been in the normal range. Medications: reviewed. Anti-microbials: - ceftriaxone 03/15-03/17 - pip/tazo 03/17-03/19, 03/20-03/21 - azithro 03/15-03/19 - ceftaroline 03/19-03/20 - nafcillin 03/21-current Physical Examination: Afebrile since last visit. MAP 65 during my visit. General - sedated ENT - ETT in place Cardiovascular - regular rhythm, no murmur Respiratory - clear anteriorly Abdomen - soft Extremities - no edema MSK - no joint effusion or erythema Skin - no rash Recent Labs & Imaging: Reviewed. 03/23/19: - Lytes w/ hypernatremia, hyperchloremia - Cr 1.6, trending down - WBC 9.4, Hgb 8, PLT 156 Imaging: reviewed. No new imaging since last ID visit. Micro: reviewed. - 03/15/19 two sets of blood cultures, 1 w/ MSSA. Final, reviewed w/ [facility] lab. - 03/17/19 MRSA nasal PCR negative - 03/17/19 urinary Pneumococcal and Legionella antigens negative - 03/18/19 sputum w/ few poly's and no org's on gram stain, culture nml OP constance - 03/19/19 blood no growth to date - 03/19/19 urine no growth - 03/20/19 MRSA nasal PCR w/ MSSA - 03/20/19 ETT aspirate w/ many squam, culture not done - 03/20/19 blood pending Impression: 1. MSSA bacteremia, source likely pneumonia - blood 03/15 at [facility] w/ MSSA 2. Multifocal PNA, respiratory failure. Remains on ventilator. 3. Septic shock, improved 4. SIRISHA, improving 5. UGI bleed 03/20 Recommendations: 1. Nafcillin 2g q4h 2. Follow up final 03/19 blood cultures to ensure clearance 3. Tentative plan for 14 days of IV antistaphylococcal therapy from 03/19 = 04/02 Thank you for allowing us the privilege of participating in Mr. Bryan's care. Trey Tolentino MD Infectious Disease Attending * Shelly Pierre, RN - 03/23/2019 6997 EDT Case Management Contact Note: Spoke with Lawanda via telephone, she is hoping to come down from [place] both Tuesday and Tuesday and was looking to see if she could get travel supports. I left a bookof parking passes and $50.00 in gas cards in Mr. Bryan's chart. She is feeling well supported and well updated by the team at this time. She was able to reach Frank Bryan who is Shirlene's brother who lives in [place], however they are reportedly estranged. Shelly Pierre RN, BSN #[id number] * Esther Canas, RT - 03/23/2019 0852 EDT Respiratory Progress Note Indications for Respiratory therapy: Intubated/Vent Data Vitals: Heart Rate: 85 BPM, Resp: 23, SpO2: 90 % FIO2/O2 Device: O2 Device: Intubated, FIO2 %: 70 % RT Orders: PC-SIMV: Rate 14, PIP 18, PS 5, PEEP 8 PRN IPV PRN Duoneb Action/Events Respiratory events; ETT re-secured with cloth tape at same depth (25 cm at the lip). Patient given Lasix this morning. Secretions are white/yellow, thick and difficult to mobilize at times. Patient's SpO2 continually decreasing this afternoon after switching sedation to Precedex (team aware). Used IPV as well as bagging and suctioning without much improvement. Vent was also alarming for high PEEP. Pt given Duoneb toprevent auto-PEEP, but this did not help. Combination of a change of sedation and change from AC toSIMV mode helped with agitation and auto-PEEP. Patient stable on above settings with SpO2 ranging between 92-95%. Team to discuss low tidal volume ventilation strategy. RT Sarah 03/23/19 * Jess Ruiz RN - 03/23/2019 0736 EDT Vascular Access Progress Note Diagnosis: Active Hospital Problems Diagnosis ??? Septic shock (HCC-CMS) ??? ARDS (adult respiratory distress syndrome) (HCC-CMS) ??? SIRISHA (acute kidney injury) (HCC-CMS) ??? Anemia ??? Thrombocytopenia (HCC-CMS) ??? Bacteremia ??? Fever ??? Encephalopathy ??? Atrial fibrillation with RVR (HCC-CMS) ??? Acute respiratory failure with hypoxia (HCC-CMS) Reason for PICC line: Antibiotics, limited access Recommendations: Triple PICC/Central Line/Pacer history (Review documents, ask patient): current IJ Labs: Lab Results Component Value Date PROTIME 20.2 (H) 03/20/2019 INR 1.7 (H) 03/20/2019 Lab Results Component Value Date WBC 9.43 03/23/2019 Lab Results Component Value Date PLT 156 03/23/2019 Lab Results Component Value Date CALCGFR 45 (L) 03/23/2019 Blood Cultures (negative at 48, 72 hour for yeast?) Yes Contraindications to PICC Insertion (presence of any requires comment): Hx of thrombus-look for Doppler studies? No Unavailable arm (stroke, injury, surgical site, lymphedema, or fistula)? possibly left arm only, per chart has R brachial A-line and upper R arm IV Renal compromise needs attending or Nephrology order-Order needed? No, spoke with Dr. High yesterday about low GFR, MD states only SIRISHA and no CKD Devices in the SVC? Yes, IJ line with tip in distal SVC Crutches or Walker? No IVC Filter or Pacer? No Temp >38.5 in 24hrs? No Existing lines? Yes, IJ line, R a-line, R upper arm IV Patient education completed? to be completed at the bedside by PICC RN JESS RUIZ, RN * Jocelyn Coto MD - 03/23/2019 0651 EDT Critical Care Progress Note Service Date: 03/23/2019 Admit Date: 03/17/2019 9:03 Reason for Admission to ICU: 64 y.o. male with no past medical history and current smoker who was transferred from [facility] on 03/17 and admitted to the MICU for management of septic shock and acute hypoxic respiratory failure secondary to presumed pneumonia. Critical and life-threatening events over the past 24 hours: - ventilator settings adjusted VC-AC, FiO2 50%, Rate 14, TV 610, PEEP 8 Subjective/Objective Subjective On ventilator, moving extremities spontaneously. Review of Systems Review of systems not obtained due to patient factors: Ventilated, Unable to speak and Unable to comprehend Objective Blood pressure 119/74, temperature 37.1 ??C (98.8 ??F), temperature source Tympanic, resp. rate 14,height 181.6 cm (71.5), weight 70.4 kg (155 lb 3.2 oz), SpO2 94 %. Physical Exam General: Thin man appearing his stated age, intubated and on the ventilator. HEENT: NC/AT. No discharge from eyes, ears, nose, mouth. Cardiovascular: RRR, no murmurs, rubs or gallops. Radial and DP pulses 2+ bilaterally. Respiratory: Anterior sanderson clear to auscultation. GI: Non-distended abdomen. No masses or pulsations appreciated on palpation. : Park present. Musculoskeletal: Sedated. Skin: Bruising on bl upper extremities. Evolving pressure injury, initially noted on HD #2 Neuro: Moving extremities spontaneously. Does not follow commands. Assessment/Plan Assessment Shirlene Bryan is a 64 yo male with a history of COPD and current smoker who was transferred from [facility] on 03/17 for septic shock and ARDS secondary to pneumonia, metabolic acidosis, AF w/ RVR, SIRISHA, and volume overload. Had an acute decompensation 03/20 with hemorrhagic shock and HD instability. Remains HD stable, but with tenuous resp status, delirium and persistent electrolyte abnormalities. Plan PULM: # Acute hypoxic respiratory failure with ARDS - improving Secondary to pneumonia, volume overload, and underlying emphysema (seen on CT). Up-trending FiO2 requirements in the setting of dramatic change in HD status on 03/20, and worsening hypercapnea, now improving slowly. - Failed SBT-agitated and desated - Currently on liberalized TV - Vent Settings: VC-AC, FiO2-50, Rate-14, VT-610 PEEP 8 - Diuresis to get fluid off lungs - Antibiotics as below -Remains agitated. Liberalized tidal volume to increased vent synchrony when hemorrhagic shock, metabolic acidosis and air hunger developed. Left liberalized due to apparent improvement in resp status and attempts to wean sedation. Now concerned for worsening lung injury w/ large tidal volumes and persistent desaturations following episodes of dyssynchrony. Will readdress sedation today, and may benefit from more aggressive sedation plan to tolerate lung protective ventilation. CV: # Shock - resolved Likely hemorrhagic in the setting of profuse blood from OG and rectal tube, though likely could have a small component of sepsis. S/p 3L of fluid and 4 units of blood product. POC U/S showed that he was adequately resuscitated yesterday. Lactate down trending. - Off pressors ?? # Rapid A. Fib Resolved - For AF w/ RVR would consider amiodarone if recurrent - Follow Mg level target >2 mg/dl ?? RENAL: # Acute Renal Failure resolving - Cr 1.58 - Has had good UOP but volume overloaded following episode of hemorrhagic and w/ persistent hypernatremia requiring increased free water- will resumed lasix, add thiazide to promote volume loss and natruresis. - Strict input and output ?? #Hypernatremia 2/2 to tube feeds w/o free water - trend electrolytes q12 - Increase free water in feeding tube to 200ml/hr ?? Intake/Output Summary (Last 24 hours) at 03/23/2019 0651 Last data filed at 03/23/2019 0600 Gross per 24 hour Intake 4333.76 ml Output 3550 ml Net 783.76 ml ID: #Sepsis 2/2 left lower PNA and MSSA bacteremia Presumed community acquired. Procal trending down. MSSA nasal swab positive, legionella and strep pneumo negative. - Continue nafcillin 2g - Central line out - PICC line placed ?? NEURO/PSYCH: Sedation - Olanzapine 5 mg qhs - melatonin - switch from propofol to Precedex - Fentanyl 75 mcg/hr - Fentanyl prn bolus - Acetaminophen 1000mg prn -resume ketamine -see resp above ENDO: #Hyperglycemia Glucoses have been 108-123 with insulin drip. - [id number] POC G checks - SSI as needed GI: #Upper GI Bleed 03/20 Severe UGIB w/ 1.5 L output from NG tube and 0.5L from rectal tube. Hg dropped to 5.8 from 10.7. S/p 3 units of RBC, 1 unit of platelets. Upper EGD showed multiple gastric and duodenal ulcers. No further evidence of GIB - GI consulted, appreciate recs - PPI BID - resume tube feeds today ?? H/O: # Acute blood loss anemia Hgb was 5, given 3 units of RBC, 1 unit of platelets. Hgb stable at 8. - Transfuse if Hgb <7 - CBC daily #Thrombocytopenia - resolved. S/p 1 unit of platelets. Monitor CBC. Given dramatic improvement uponresolution of GIB, may have initially been 2/2 to sepsis but complicated by consumption. ?? DERM #Deep tissue injury Bruising on coccyx - wound care Consulted, special bed, no progression, some evolution ?? LINES: - A line -placed 03/17 - consider removing today - Park -PICC placed today ?? PPX: - GI - PPI - DVT - Not on heparin due to GI bleed - will consider resuming tomorrow / sun if no recurrent bleed ?? Code status: Full code Clinical Condition: Unstable Critical Care Daily Checklist: Completed Yasmine Falcon 03/23/2019 6:51 Attending attestation statement: I saw and examined the patient with the resident and agree with the findings and plans as documented, and as amended in blue. Clinical Condition: Shirlene Bryan is a critically ill 64 y.o. male. Over the past 24 hours, therehas been a high probability of sudden, clinically significant or life threatening deterioration in the patient???s condition, which include the following diagnoses which I have managed: Active Problems: Acute respiratory failure with hypoxia Septic shock ARDS SIRISHA Acute blood loss anemia Bacteremia Encephalopathy Hypernatremia Critical Care time was provided in the form of interventions to treat and prevent further life threatening deterioration of the patient???s condition including: Management of mechanical ventilation, Management of pain and sedation, Fluid and electrolyte management and Antimicrobial therapy, and high complexity decision making regarding candidacy for extubation and need for additional imaging studies and / or interventional radiology interventions. My bedside involvement was required to monitor and direct the critical care that has been provided.Exclusive of procedures, my critical care time is 30 minutes. Jocelyn Coto MD MICU Attending 03/23/2019 * Kim Her, RT - 03/23/2019 4319 EDT Respiratory Progress Note Indications for Respiratory therapy: intubated Data Vitals: Heart Rate: 76 BPM, Resp: 16, SpO2: 95 % FIO2/O2 Device: , , O2 Device: Intubated, FIO2 %: 50 % RT Orders: AC 610 x 14/8 Action/Events Respiratory events; Pt on 60% FIO2 most of the night, agitated at times requiring up to 80% FIO2 to maintain sats above90%. He did do a very short weaning trial on PS 5/5 50% but started to desat to 87% and getting agitated again. Placed back on AC and O2 increased to improve sats. Minimal secretions from ETT. RT GIOVANNI 03/23/19 * Trey Tolentino MD, - 03/22/2019 1653 EDT Infectious Disease Inpatient Follow-Up Patient: Shirlene Bryan : 1955 Date of Admission: 03/17/2019 Date of Service: 03/22/19 Reason for Visit: follow up Staph aureus bacteremia Interval History This is our 64yo gentleman who was transferred to [facility] on 03/17/19 from [facility] where he presented 03/15 w/ progressive pneumonia/respiratory failure. Blood at [facility] grew MSSA. Since last ID visit 03/21 he remains intubated in the ICU w/ FiO2 50%. He is now off pressors again.He has remained afebrile and without leukocytosis. On nafcillin. Medications: reviewed. Anti-microbials: - ceftriaxone 03/15-03/17 - pip/tazo 03/17-03/19, 03/20-03/21 - azithro 03/15-03/19 - ceftaroline 03/19-03/20 - nafcillin 03/21-current Physical Examination: Afebrile since last visit. MAP 65 off pressors during my visit. General - sedated ENT - ETT in place Cardiovascular - regular rhythm, no murmur Respiratory - clear anteriorly Abdomen - soft Extremities - no edema MSK - no joint effusion or erythema Skin - no rash Recent Labs & Imaging: Reviewed. 03/22/19: - hypernatremia - Cr 2, trending down - WBC 6.1, Hgb 8.2, PLT 133 Imaging: reviewed. No new imaging since last ID visit. Micro: reviewed. - 03/15/19 two sets of blood cultures, 1 w/ MSSA - 03/17/19 MRSA nasal PCR negative - 03/17/19 urinary Pneumococcal and Legionella antigens negative - 03/18/19 sputum w/ few poly's and no org's on gram stain, culture nml OP constance - 03/19/19 blood no growth to date - 03/19/19 urine no growth - 03/20/19 MRSA nasal PCR w/ MSSA - 03/20/19 ETT aspirate w/ many squam, culture not done - 03/20/19 blood pending Impression: 1. MSSA bacteremia, source likely pneumonia - blood 03/15 at [facility] w/ MSSA 2. Multifocal PNA, respiratory failure. Remains on ventilator. 3. Septic shock, improved 4. SIRISHA, improving 5. UGI bleed 03/20 Recommendations: 1. Nafcillin 2g q4h 2. Follow up final 03/19 blood cultures to ensure clearance 3. Tentative plan for 14 days of IV antistaphylococcal therapy from 03/19 = 04/02 Thank you for allowing us the privilege of participating in Mr. Bryan's care. Trey Tolentino MD Infectious Disease Attending * Maty Griggs, RT - 03/22/2019 0835 EDT Respiratory Progress Note Indications for Respiratory therapy: intubated/pna Data Vitals: Heart Rate: 72 BPM, Resp: 17, SpO2: 97 % FIO2/O2 Device: , , O2 Device: Intubated, FIO2 %: 40 % RT Orders: AC 610 x 14 peep 8 Action/Events Respiratory events; 0742: pt resting comfortably on vent settings. Decreased fio2 from 50% to 40%. Breath sounds clear/diminished. 0834: asked to see pt for decrease in spo2 to 87-88%. Increased fio2 back to 50% and lavaged and suctioned pt for moderate amount of thick white secretions. Sedation also increased back up. Response/Results Weaning and Toleration of treatments; Wean vent settings as tolerated RT Eleni 03/22/19 * Jocelyn Coto MD - 03/22/2019 0641 EDT Critical Care Progress Note Service Date: 03/22/2019 Admit Date: 03/17/2019 9:03 Reason for Admission to ICU: 64 y.o. male with no past medical history and current smoker who was transferred from [facility] on 03/17 and admitted to the MICU for management of septic shock and acute hypoxic respiratory failure secondary to presumed pneumonia. Critical and life-threatening events over the past 24 hours: - ventilator settings adjusted VC-AC, FiO2 40%, Rate 14, TV 610, PEEP 8 Subjective/Objective Subjective On ventilator, moving extremities spontaneously. Review of Systems Review of systems not obtained due to patient factors: Ventilated, Unable to speak and Unable to comprehend Objective Blood pressure 119/74, temperature 35.9 ??C (96.6 ??F), temperature source Tympanic, resp. rate 15,height 181.6 cm (71.5), weight 70.4 kg (155 lb 3.2 oz), SpO2 95 %. Physical Exam General: Thin man appearing his stated age, intubated and on the ventilator. HEENT: NC/AT. No discharge from eyes, ears, nose, mouth. Cardiovascular: RRR, no murmurs, rubs or gallops. Radial and DP pulses 2+ bilaterally. Respiratory: Anterior sanderson clear to auscultation. GI: Non-distended abdomen. No masses or pulsations appreciated on palpation. : Park present. Musculoskeletal: Sedated. Skin: Bruising on bl upper extremities. Bruising on coccyx concerning for developing pressure injury Neuro: Moving extremities spontaneously. Does not follow commands. Assessment/Plan Assessment Shirlene Bryan is a 64 yo male with a history of COPD and current smoker who was transferred from [facility] on 03/17 for septic shock and ARDS secondary to pneumonia, metabolic acidosis, AF w/ RVR, SIRISHA, and volume overload. Had an acute decompensation 03/20 with hemorrhagic shock and HD instability. Now improving again; off all pressors. Plan PULM: # Acute hypoxic respiratory failure with ARDS - improving Secondary to pneumonia, volume overload, and underlying emphysema (seen on CT). Was improving, successful SBT of 45 mins. Up-trending FiO2 requirements in the setting of dramatic change in HD status on 03/20, and worsening hypercapnea, now improving slowly. - Try to wake up and extubate, did well on SBT - ARDSnet ventilation - Vent Settings: VC-AC, FiO2-40, Rate-14, VT-610 PEEP 8 - Antibiotics as below CV: # Shock - resolved Likely hemorrhagic in the setting of profuse blood from OG and rectal tube, though likely could have a small component of sepsis. S/p 3L of fluid and 4 units of blood product. POC U/S showed that he was adequately resuscitated yesterday. Lactate down trending. - Off pressors - Stop steroids today ?? # Rapid A. Fib Diltiazem for rhythm control at outside hospital. Not on anticoagulation. Ok for heart rates in [id number]. Briefly on amiodarone yesterday, with subsequent return to NSR - For AF w/ RVR would consider amiodarone if recurrent - Follow Mg level target >2 mg/dl ?? RENAL: # Acute Renal Failure - Cr 1.99 - Has had good UOP- 500ml/hr - Goal of net neg 1-2L today - Strict input and output - Park ?? #Hypernatremia 2/2 to tube feeds w/o free water - trend electrolytes q6 - Free water in feeding tube # Hypocalcemia Came in with Ca of 6.4 (calculated Ca 7.8). HypoCa likely 2/2 sepsis and hyperphosphatemia as a consequence of SIRISHA. - no current action - Phosphate binders - Will not replete Ca as it will precipitate given high Phosphate in blood ?? Intake/Output Summary (Last 24 hours) at 03/22/2019 0641 Last data filed at 03/22/2019 0600 Gross per 24 hour Intake 4632.63 ml Output 3825 ml Net 807.63 ml ID: #Sepsis 2/2 left lower PNA and MSSA bacteremia Presumed community acquired. Procal trending down. MSSA nasal swab positive, legionella and strep pneumo negative. - Continue nafcillin 2g - Central line out in next 24 hrs - Place PICC line given afebrile w/ neg cxs to date, will need for completion of antimicrobial tx for staph bacteremia. ?? NEURO/PSYCH: Sedation - Olanzapine 5 mg qhs - Wean off ketamine drip - Add propofol back - Fentanyl 75 mcg/hr - Fentanyl prn bolus - Acetaminophen 1000mg prn ENDO: #Hyperglycemia Glucoses have been 108-123 with insulin drip. - Insulin drip stopped - [id number] POC G checks - SSI as needed GI: #Upper GI Bleed 03/20 Bright red blood per rectum and blood coming out of NG tube after given Heparin for DVT concern. Had about 1.5 L output from NG tube and 0.5L from rectal tube. Hg dropped to 5.8 from 10.7. S/p 3units of RBC, 1 unit of platelets. Upper EGD showed multiple gastric and duodenal ulcers. Patient stable today. - GI consulted, appreciate recs - PPI BID - Start tube feeds as soon as possible, consult GI - NPO ?? H/O: # Acute blood loss anemia Hgb was 5, given 3 units of RBC, 1 unit of platelets. Hgb stable at 7.9. Some output from rectal tube, most likely digested old blood or flushes from EGD. - Transfuse if Hgb <7 - CBC daily #Thrombocytopenia In the setting of pneumonia, may be chronic. S/p 1 unit of platelets. Stable at 109 - Monitor CBC ?? DERM #Deep tissue injury Bruising on coccyx - wound care Consulted, special bed, no progression ?? LINES: - CVC-placed 03/17 - will place PICC and remove - A line -placed 03/17 - remove today / tomorrow - Park ?? PPX: - GI - PPI - DVT - Not on heparin due to GI bleed ?? Code status: Full code Clinical Condition: Unstable Critical Care Daily Checklist: Completed Yasmine Falcon 03/22/2019 6:41 Attending attestation statement: I saw and examined the patient with the resident and agree with the findings and plans as documented, and as amended in blue. Clinical Condition: Shirlene Bryan is a critically ill 64 y.o. male. Over the past 24 hours, therehas been a high probability of sudden, clinically significant or life threatening deterioration in the patient???s condition, which include the following diagnoses which I have managed: Active Problems: Acute respiratory failure with hypoxia Septic shock - resolved ARDS SIRISHA - improving Acute blood loss anemia Bacteremia Encephalopathy Critical Care time was provided in the form of interventions to treat and prevent further life threatening deterioration of the patient???s condition including: Management of mechanical ventilation, Management of pain and sedation, Fluid and electrolyte management, Antimicrobial therapy and GI proph ylaxis, and high complexity decision making regarding candidacy for extubation and need for additional imaging studies and / or interventional radiology interventions. My bedside involvement was required to monitor and direct the critical care that has been provided.Exclusive of procedures, my critical care time is 30 minutes. Jocelyn Coto MD MICU Attending 03/22/2019 * Kim Her RT - 03/22/2019 0523 EDT Respiratory Progress Note Indications for Respiratory therapy: intubated Data Vitals: Heart Rate: 83 BPM, Resp: 16, SpO2: 93 % FIO2/O2 Device: , , O2 Device: Intubated, FIO2 %: 50 % RT Orders: AC 610 x 14/ 8 Action/Events Respiratory events; Pt stable on above settings, minimal secretions suctioned from ETT. Plan per team this shift is to wean PEEP overnight and try SBT in the morning PEEP weaned to +8, pt maintaining sats. PS 5/5 trial done from 04:07 til 05:20 this am. No plans for extubation at this time, pt placed back on AC mode RT GIOVANNI 03/22/19 * Flex Flores MD - 03/22/2019 0135 EDT Brief Progress Note: Uneventful night. Decreasing pressor requirements. Weaned off norepinephrine at this time. Increaseoutput from Flexi-Seal, however dark complexion suggesting retained blood products. Resumed entericfree water for hypernatremia with discontinuation of D5W, previously requiring insulin gtt. attempting to wean ventilation support in anticipation of potential weaning trial. Flex Flores MD * Trey Tolentino MD, - 03/21/20192010 EDT Infectious Disease Inpatient Follow-Up Patient: Shirlene Bryan : 1955 Date of Admission: 03/17/2019 Date of Service: 03/21/19 Reason for Visit: follow up Staph aureus bacteremia Interval History This is our 64yo gentleman who was transferred to [facility] on 03/17/19 from [facility] where he presented 03/15 w/ progressive pneumonia/respiratory failure. Blood at [facility] grew MSSA. Since last ID visit 03/20 he had an acute upper GI bleed. He has required transfusion. He had EGD which showed ulcer. He is back on pressors. WBC initially maxwell but resolved overnight, fever curve hastrended down. . Briefly on pip/tazo, now narrowed to nafcillin. He remains intubated on 50% Fi02. Medications: reviewed. Anti-microbials: - ceftriaxone 03/15-03/17 - pip/tazo 03/17-03/19, 03/20-03/21 - azithro 03/15-03/19 - ceftaroline 03/19-03/20 - nafcillin 03/21-current Physical Examination: BP 119/74 Temp 36.3 ??C (97.3 ??F) (Tympanic) Resp 17 Ht 181.6 cm (71.5) Wt 70.4 kg (155 lb 3.2 oz) SpO2 96% BMI 21.34 kg/m?? General - sedated ENT - ETT in place Cardiovascular - regular rhythm, no murmur Respiratory - clear anteriorly Abdomen - soft Extremities - no edema MSK - no joint effusion or erythema Skin - no rash Recent Labs & Imaging: Reviewed. 03/21/19: - hypernatremia >150 - Cr 2.2 - WBC 9.4 (down from 31), Hgb 8.1, PLT 98 Imaging: reviewed. No new imaging since last ID visit. Micro: reviewed. - 03/15/19 two sets of blood cultures, 1 w/ MSSA - 03/17/19 MRSA nasal PCR negative - 03/17/19 urinary Pneumococcal and Legionella antigens negative - 03/18/19 sputum w/ few poly's and no org's on gram stain, culture nml OP constance - 03/19/19 blood no growth to date - 03/19/19 urine no growth - 03/20/19 MRSA nasal PCR w/ MSSA - 03/20/19 ETT aspirate pending Impression: 1. MSSA bacteremia, source likely pneumonia - blood 03/15 at [facility] w/ MSSA 2. Multifocal PNA, respiratory failure. Remains on ventilator. 3. Septic shock 4. SIRISHA, improving 5. UGI bleed 03/20 Recommendations: 1. Nafcillin 2g q4h 2. Follow up 03/19 blood cultures to ensure clearance Thank you for allowing us the privilege of participating in Mr. Bryan's care. Trey Tolentino MD Infectious Disease Attending * Rony Cooper MD - 03/21/2019 1605 EDT Brief Procedure Note Indication/HPI melena EGD performed in with conscious sedation. esophagus: normal Stomach: multiple punctate clean based ulcers 2-5cm in diameter. Cold forcep biopsies taken in antrum and body of stomach to rule out H pylori Duodenum: diffuse clean based ulceration. There appears to be visible vessel that was treating withendoscopic clip. Assessment/Plan: Follow up biopsies PPI BID For details of procedure, please see full note in procedure or scanned media tab within PRISM. RONY COOPER MD Gastroenterology and Hepatology * Shelly Pierre RN - 03/21/2019 1301 EDT Initial Case Management/Social Work Assessment and Discharge Plan/Readmission Risk Assessment REASON FOR ADMISSION: 64 y.o. male with no past medical history and current smoker who was transferred from [facility] on 03/17 and admitted to the MICU for management of septic shock and acute hypoxic respiratory failure secondary to presumed pneumonia. Patient understands reason for admission: No PATIENT CONTACT INFO VERIFIED: No PATIENT ADDRESS VERIFIED: No LIVING ARRANGEMENTS AND ACCESSIBILITY ISSUES: Living Arrangements: Alone Handicap access: None Bathroom located on bedroom level?: Yes What in home social supports are available to the patient? Spouse / significant other Is 24/01 care available? No ADVANCED DIRECTIVES, POA &/or COLST IN PLACE: Healthcare Directive: No, patient unable to respond due to condition Information Provided on Healthcare Directives: No Information on Healthcare Directives Requested: No DIRECTIVES FOR FINANCES: Directive For Finances: No TRANSPORTATION: Transportation: Family CULTURAL, MUSLIM and/or LANGUAGE factors affecting health care/discharge planning: Spiritual/Cultural Requests: Unable to assess Insurance in Place: Yes Medical Insurance: Yes DISCHARGE RISK ASSESSMENT: Total # selected above: Tentative plan to address the risk of re-hospitalization for those at HIGH MODERATE RISK: RAPT TOOL: Age: 50-65 Gender: Male Ambulation distance: 2 or more blocks (600ft) Gait device: None Community Services: Home health, MOW, SASH-none of one time a week Will you live with someone who will care for you?: Yes RAPT Tool Score: 12 SBIRT: Intervention in place/initiated?: No, not indicated FUNCTIONAL STATUS: Activities patient requires assistance: None Assistive Device: None COMMUNITY RESOURCES/SUPPORTS: Primary Care Provider: Doctor Unknown PCP Verified: No Specialists: DME Provider: Pharmacy: No Pharmacies Listed Home Health: Other: POST HOSPITAL TRANSITION PLAN: Pending clinical course. Call to s.o. To introduce myself and explain role and also ensure that she is comfortable being Shirlene's decision maker. Shirlene and Lawanda havecelenaen together just under a year but she reports that she feels comfortable making decisions as theyhave had conversations about what they would and would not want in a situation where they were ill for a long period of time. Unclear discharge dispo at this time Shelly Pierre RN,BSN #[id number] 03/21/2019 13:01 * Maty Griggs, - 03/21/2019 1233 EDT Respiratory Progress Note Indications for Respiratory therapy: intubated/pna Data Vitals: Heart Rate: 83 BPM, Resp: 15, SpO2: 95 % FIO2/O2 Device: , , O2 Device: Intubated, FIO2 %: 60 % RT Orders: AC 610 x 14 peep 10 Action/Events Respiratory events; Pt tolerating vent settings well. Decreased fio2 to 60% this morning. Breath sounds clear/diminished. Suctioning minimal secretions. Plan to change sedation to ketamine and may decrease Vt back to 6cc/kg after this if he tolerates. Pt is also going to get scoped by GI today. Response/Results Weaning and Toleration of treatments; Wean vent settings as tolerated RT Eleni 03/21/19 * Jocelyn Coto MD - 03/21/2019 0650 EDT Critical Care Progress Note Service Date: 03/21/2019 Admit Date: 03/17/2019 9:03 Reason for Admission to ICU: 64 y.o. male with no past medical history and current smoker who was transferred from [facility] on 03/17 and admitted to the MICU for management of septic shock and acute hypoxic respiratory failure secondary to presumed pneumonia. Critical and life-threatening events over the past 24 hours: - Patient became tachypneic and desated to 80s. Concern for PE, given heparin and had bright red blood per rectum and blood coming out of NG tube. Hgb dropped to 5 and was transfused 3 units of bloodand 1 unit platelets. Started on 2 pressors due to hypotension. - ventilator settings adjusted VC-AC, FiO2 70%, Rate 14, TV 610, PEEP 10 Subjective/Objective Subjective Still intubated and sedated. Review of Systems Review of systems not obtained due to patient factors: Ventilated, Unable to speak and Unable to comprehend Objective Blood pressure 119/74, temperature 38.4 ??C (101.1 ??F), resp. rate 25, height 181.6 cm (71.5), weight 70.4 kg (155 lb 3.2 oz), SpO2 98 %. Physical Exam General: Thin man appearing his stated age, intubated and on the ventilator. HEENT: NC/AT. No discharge from eyes, ears, nose, mouth. Cardiovascular: RRR, S1 S2, 2/6 blowing holosystolic murmur heard in all sanderson, otherwise no rubs,gallops, or ectopy. Radial and DP pulses 2+ bilaterally. Respiratory: Harsh inspiratory crackle at the left axillary field. Anterior sanderson clear to auscultation. GI: Rectal tube with 1.5 L output dark red blood. Non-distended abdomen. No masses or pulsations appreciated on palpation. : Park present. Musculoskeletal: Sedated. Skin: Bruising on bl upper extremities, with areas of oozing blood. Bruising on coccyx concerning for developing pressure injury Neuro: Patient is sedated. Does not follow commands. Assessment/Plan Assessment Shirlene Bryan is a 64 yo male with a history of COPD and current smoker who was transferred from [facility] on 03/17 for septic shock and ARDS secondary to pneumonia, metabolic acidosis, AF w/ RVR, SIRISHA, and volume overload. Was improving and off pressors, but had an acute decompensation with concern for brisk upper GI bleed. Is now back on 2 pressors. Plan PULM: # Acute hypoxic respiratory failure with ARDS - improving Secondary to pneumonia, volume overload, and underlying emphysema (seen on CT). Was improving, successful SBT of 45 mins. Up-trending FiO2 requirements and tachypneic on 03/20, and worsening hypercapnea, imaging improved, occurred in setting of dramatic change in hemodynamic status, now improving slowly. - ARDSnet ventilation - liberalized yesterday due to air hunger and vent dyssynchrony. Plateau remains < 30. Will attempt return to LTV today if remains synchronous following sedation changes below. - Vent Settings: VC-AC, FiO2-70, Rate-14, VT-610 PEEP 10 - Antibiotics as below CV: # Shock Likely hemorrhagic in the setting of profuse blood from OG and rectal tube, though likely could have a small component of sepsis. S/p 3L of fluid and 4 units of blood product. POC U/S showed that he was adequately resuscitated this am, persistent [employer] requirement may be due to ongoing SIRS response /vasodilatory shock. Lactated now down trending. - On levophed and vasopressin - Steroids - Trend lactate ?? # Rapid A. Fib Diltiazem for rhythm control at outside hospital. Not on anticoagulation. Ok for heart rates in [id number]. Briefly on amiodarone yesterday, with subsequent return to NSR - For AF w/ RVR would consider amiodarone if recurrent - Follow Mg level target >2 mg/dl ?? RENAL: # Acute Renal Failure - Cr 2.2 - improving w/ good UOP despite hemorrhagic shock overnight - Reassess I/O in afternoon - Has had good UOP - Strict input and output - Park ?? #Hypernatremia 2/2 to tube feeds w/o free water - trend electrolytes q6 - IV free water while unable to use enteral route # Hypocalcemia - improving Came in with Ca of 6.4 (calculated Ca 7.8). HypoCa likely 2/2 sepsis and hyperphosphatemia as a consequence of SIRISHA. - no current action - Phosphate binders - Will not replete Ca as it will precipitate given high Phosphate in blood ?? Intake/Output Summary (Last 24 hours) at 03/21/2019 0650 Last data filed at 03/21/2019 0600 Gross per 24 hour Intake 7856.52 ml Output 5810 ml Net 2046.52 ml ID: #Sepsis 2/2 left lower PNA and MSSA bacteremia Presumed community acquired. Procal trending down. MSSA nasal swab positive, legionella and strep pneumo negative. Broadened to zosyn overnight when decompensating from hemorrhage. Now stable to return to nafcillin per ID recs. - Continue nafcillin 2g - Change out central line if remains febrile, cx +, or not continuing to improve, or Tuesday if still needed. - defervesced HD#3, but recurrent spike and leukocytosis overnight in setting of decompensation without new + cxs so far - Echo if persistent bacteremia given staph, murmur ?? NEURO/PSYCH: - Olanzapine 5 mg qhs for a few days - Transition fentanyl drip to ketamine - Fentanyl prn bolus - transition off midazolam drip as now much less synchronous and w/ renal dysfunction, will see if transition back to ketamine is successful in managing sedation plan - Acetaminophen 1000mg prn ENDO: #Hyperglycemia Glucoses have been 150s-200s with SSI. - [id number] POC G checks - will start insulin gtt given glucose >220, need for D5W, resuming stress dose steroids GI: #Upper GI Bleed Bright red blood per rectum and blood coming out of NG tube after given Heparin for DVT concern. Had about 1.5 L output from NG tube and 0.5L from rectal tube. Hg dropped to 5.8 from 10.7. S/p 3 units of RBC, 1 unit of platelets. - Heparin stopped - Started on tranexamic acid - finishes @ 21:00 - GI consulted, appreciate recs - PPI BID - NPO ?? H/O: # Acute blood loss anemia Hgb was 5, given 3 units of RBC, 1 unit of platelets. Hgb now stable at 9. - Transfuse if Hgb <7 - CBC and coags q6 #Thrombocytopenia In the setting of pneumonia, may be chronic. S/p 1 unit of platelets. Stable at 102 - Monitor CBC ?? DERM #Deep tissue injury Bruising on coccyx - wound care Consulted, special bed, no progression ?? LINES: - CVC-placed 03/17 - A line -placed 03/17 - Park ?? PPX: - GI - PPI - DVT - Not on heparin due to GI bleed ?? Code status: Full code Clinical Condition: Unstable Critical Care Daily Checklist: Completed Yasmine Falcon 03/21/2019 6:50 Attending attestation statement: I saw and examined the patient with the resident and agree with the findings and plans as documented, and as amended in blue. Clinical Condition: Shirlene Bryan is a critically ill 64 y.o. male. Over the past 24 hours, therehas been a high probability of sudden, clinically significant or life threatening deterioration in the patient???s condition, which include the following diagnoses which I have managed: Active Problems: Acute respiratory failure with hypoxia Septic and hemorrhagic shock ARDS SIRISHA UGIB / Acute blood loss anemia Thrombocytopenia Bacteremia Fever Encephalopathy Atrial fibrillation with RVR Critical Care time was provided in the form of interventions to treat and prevent further life threatening deterioration of the patient???s condition including: Management of mechanical ventilation, Management of pain and sedation, Fluid and electrolyte management, Antimicrobial therapy, Managementof vasopressors and GI prophylaxis, and high complexity decision making regarding candidacy for extubation and need for additional imaging studies and / or interventional radiology interventions and the need for critical procedures, such as: EGD. My bedside involvement was required to monitor and direct the critical care that has been provided.Exclusive of procedures, my critical care time is 45 minutes. Jocelyn Coto MD MICU Attending 03/21/2019 * Kim Her, RT - 03/21/2019 0526 EDT Respiratory Progress Note Indications for Respiratory therapy: intubated Data Vitals: Heart Rate: 109 BPM, Resp: 13, SpO2: 97 % FIO2/O2 Device: , , O2 Device: Intubated, FIO2 %: 70 % RT Orders: AC 610 x 14/+10 PRN Airway Clearance Action/Events Respiratory events; 20:00 Pt tachypneic, off propofol due to hypotension but current sedation does not seems optimal, desating into 80s and pulling volumes >1000ml, FIO2 increased from 65 to 80%, once sats improved FIO2 weaned to 70%. Versed drip started later on which is helping keep pt more calm. Pt suctioned x 1 for scant white/pink tinged secretions No vent changes made overnight. No weaning trial this am, pt does not meet criteria due to high FIO2 and PEEP KIM HER, RT 03/21/19 * Sirisha Lawson MD - 03/20/2019 4919 EDT ADDITIONAL CRITICAL CARE TIME PROVIDED I have spent approximately 65 minutes with the patient providing direct patient care, reviewing documentation, reviewing lab findings, and assessing need for further interventions in addition to the time provided by Dr. Coto. The patient continues to have ongoing critical illness and high risk of or serious injury related to ongoing life threatening bleeding, refractory shock, ventilator dysynchrony and acidosis. Over the course of hours GI bleeding slowed, able to maintain MAP > 65, improved vent synchrony with versed drip, TXA, continued blood product replacement, multiple pressors. Addressed code statuswith significant other, bes assessment of pt wishes would be for no CPR if cardiac arrest. Sirisha Lawson MD Critical Care Medicine 03/20/2019 * Prasad Fitzgerald MD - 03/20/2019 1800 EDT MICU Attending Update from ~2468-4945 hrs.: Patient went into rapid afib with intermittent hypotension and increased work of breathing with Ve=11L/min and TV ~800cc. ABG showed acute resp acidosis with PaCO2~60 despite PetCO2~28. Exam with small reactive pupils, clear lungs, tachy S1 and S2 with no murmer, abd soft and not tympanitic to percussion, LE without edema, adequate capillary refill. Bedside echo showed hyperdynamic RV and LV withsmall IVC. CXR improved infiltrates; no pneumothorax - appeared confirmed by echo showing lung slide on both sides. Over course of a few hours we administered IVF with LR to 3 L with some transient improvement in BP; amiodarone started with improvement in heart rate in afib; increased sedation with Increased fentanyl IV drip and boluses and intermittent boluses of lorazepam; attempted pressure controlled ventilation with no effect. DDX included PE or sepsis or neurologic event. Patient too unstable to transport for imaging, so bedside ultrasound done which was negative for DVT but we started empiric heparin.After bolus given patient had upper and lower GI bleeding, so heparin stopped. Fibrinogen normal but hemoglobin acutely dropped to ~5 and plts remained low so 2 U PRBC and 1 U plts given. Obtained rep eat set of BC and antibiotics broadened to Vanco and Pip/Tazo. Impression: Acute change in status, with DDx remaining as above. Significant other called for updating. Night team came in at 7 for sign-off. Additional critical care time = 120 min. Prasad Fitzgerald MD * Dorinda Carey - 03/20/2019 1502 EDT Nutrition Reassessment: ?? Medical Summary: Shirlene Bryan is a 64 y.o. male admitted on 03/17/2019 with a history of COPD and current smoker who was transferred from [facility] on 03/17 for management of atrial fibrillation with RVR and pneumonia complicated by acute hypoxic respiratory failure. He required intubation, sedation, and wasstarted on pressors. Now admitted to the MICU for management of pneumonia complicated by septic shock, ARDS, metabolic acidosis, AF w/ RVR, SIRISHA, and volume overload. Now off pressors and euvolemic. Goal for today to find better sedation plan so he can tolerate SBT. Will trial low dose fentanyl drip. ?? 24 Hour Events: - off pressors - sedated with propofol - phos wnl, Ca trending up Subjective: deferred as patient intubated, sedated Current Nutrition Orders: Diet: NPO Tube Feed: Perative @ 64mL/hr continuous Delegate Diet ordering to RD ?? Nutrition Focused Physical Findings: Cardiovascular-pulmonary: intubated Swallow Function: impaired Nerves and Cognition: sedated, does not follow commands Dentition: missing teeth Vital Signs: Mve 11 L/min; Tmax 37.2 ??C (99 ??F); VCO2 0.204 L/min Edema: none identified I/O: +1.52L/-2.03L 03/19 Digestive Systems: 300ml output rectal tube 03/19; OGT in place/tube feed infusing, nondistended abd Skin: deep tissue injury forming to coccyx ?? Anthropometrics: Height: 181.6 cm Admission Weight: 70 kg, BMI 21.2 kg/m?? Current Body Weight: 70.4 kg 03/19 ?? Pertinent Medications: Current Facility-Administered Medications: acetaminophen (TYLENOL) tablet 1,000 mg oral Q6H PRN amiodarone in dextrose 150 mg/100 mL (1.5 mg/mL) IV bolus amiodarone in dextrose 360 mg/200 mL (1.8 mg/mL) infusion ascorbic acid (vitamin C) (VITAMIN C) tablet 500 mg oral DAILY calcium carbonate (TUMS) 200 mg calcium (500 mg) per chewable tablet tablet,chewable 1 Tab oral Q8H ceFAZolin (ANCEF) 1,000 mg in sodium chloride (NS MBP) 50 mL IVPB intravenous Q12H dextrose 50 % solution 12.5 g intravenous PRN fentanyl 50 mcg/ml (SUBLIMAZE) syringe, 30 ml intravenous CONTINUOUS fentaNYL citrate (PF) injection 50-100 mcg intravenous Q1H PRN furosemide (LASIX) injection 60 mg intravenous DAILY heparin injection 5,000 Units subcutaneous Q8H insulin aspart U-100 (NOVOLOG FLEXPEN) injection subcutaneous Q6H magnesium sulfate 2g in D5W 50 ml melatonin tablet 5 mg oral QHS nicotine (NICODERM CQ) 7 mg/24 hr patch 1 Patch transdermal DAILY OLANZapine (ZYPREXA) tablet 5 mg oral QHS pantoprazole (PROTONIX) injection 40 mg intravenous DAILY papain-alpha amylase-cellulase (CLOG ZAPPER) 2-5 mL feeding tube PRN perative 0.067-1.30 gram-kcal/mL per ng tube CONTINUOUS potassium chloride in water 20 mEq/100 mL infusion propOFol (DIPRIVAN) 1000 mg in 100 mL infusion intravenous CONTINUOUS senna (SENOKOT) tablet 2 Tab oral BID PRN Or sennosides (SENOKOT) syrup 17.6 mg per ng tube BID PRN Pertinent Labs: Relevant Labs: Lab Results Component Value Date WBC 9.30 03/20/2019 RBC 3.29 (L) 03/20/2019 HGB 10.7 (L) 03/20/2019 HCT 29.5 (L) 03/20/2019 MCV 90 03/20/2019 MCH 32.5 03/20/2019 PLT 64 (L) 03/20/2019 NA 155 (H) 03/20/2019 K 4.1 03/20/2019 CL 120 (H) 03/20/2019 CO2 28 03/20/2019 BUN 153 (H) 03/19/2019 CREATININE 2.62 (H) 03/20/2019 GLUCOSEFINGE 192 (H) 03/20/2019 CALCIUM 7.0 (L) 03/20/2019 MG 2.5 03/20/2019 PHOS 4.0 03/20/2019 ?? Estimated Nutrition Needs: 1803 kcal (PSU) 105 g protein (1.5 g/kg) ?? Estimated Nutrition Intake: 1442 kcal from TF 03/19 ?? Assessment: Patient off propofol at this time. Remains tenuous, but hopeful to keep him off it. Nutrition needsrecalculated with updated MVe, Tmax. Calorie needs decreased by approximately 150 kcal. Will adjustTF to reflect this while meeting protein needs. Pt received IV calcium gluconate and calcium chloride yesterday. Calcium trending up, phos now wnl.May be ok to d/c phos binder. Pt with rectal tube output yesterday, may not need scheduled bowel meds-continue to monitor. Continue vitamin C supplement. Additional MVM still not indicated. Nutrition Risk Level: High (1) Medical Nutrition Therapy Plan and Recommendations: RD has order writing privileges and will modify the following orders: Enteral Nutrition - Continuous - Perative @ 57 ml/hr, 30 ml prosource daily - Goal TF provides 1838 kcal, 106 g protein, 1.08L enteral free water Recheck weight Tuesday, Recommendations requiring MD orders: Re-check lytes, Mg, Phos daily Adjust enteral free water as needed Please check triglycerides if pt continues on propofol Dorinda Carey RD, CD Pager #[phone] * Trey Tolentino MD, MD - 03/20/2019 1200 EDT Infectious Disease Inpatient Follow-Up Patient: Shirlene Bryan : 1955 Date of Admission: 03/17/2019 Date of Service: 03/20/19 Reason for Visit: follow up Staph aureus bacteremia Interval History This is our 64yo gentleman who was transferred to [facility] on 03/17/19 from [facility] where he presented 03/15 w/ progressive pneumonia/respiratory failure. One of his blood cultures at [facility] grew coag + Staph, further characterized today as MSSA. Since last ID visit 03/19 he has remained afebrile and his initial leukocytosis remains normalized/resolved. He remains intubated on 50% Fi02, stable off pressors. Medications: reviewed. Anti-microbials: - ceftriaxone 03/15-03/17 - pip/tazo 03/17-03/19 - azithro 03/15-current - ceftaroline 03/19-current Physical Examination: Reviewed. Afebrile. BP 110s systolic during my visit. General - sedated ENT - ETT in place Cardiovascular - regular rhythm, no murmur Respiratory - diffuse rhonchi Abdomen - soft Extremities - no edema MSK - no joint effusion or erythema Skin - no rash Recent Labs & Imaging: Reviewed. 03/20/19: - hypernatremia, hyperchloremia, Cr 2.6 (trending down). - WBC 9.3, Hgb 10.7, PLT 64 Imaging: reviewed. Since last ID visit: - 03/20/19 portable CXR w/ multifocal opacities Micro: reviewed. Discussed w/ [facility] again today. - 03/15/19 two sets of blood cultures, 1 bottle w/ MSSA - 03/17/19 MRSA nasal PCR negative - 03/17/19 urinary Pneumococcal and Legionella antigens negative - 03/18/19 sputum w/ few poly's and no org's on gram stain, culture nml OP constance - 03/19/19 blood pending - 03/19/19 urine no growth - 03/20/19 MRSA nasal PCR w/ MSSA - 03/20/19 ETT aspirate pending Impression: 1. MSSA bacteremia, source likely pneumonia - blood 03/15 at [facility] w/ MSSA 2. Multifocal PNA, respiratory failure. Remains on ventilator. 3. Septic shock, off pressors 03/18. 4. SIRISHA, improving Recommendations: 1. If ETT aspirate unrevealing I'd switch him to targeted MSSA therapy w/ nafcillin 2g q4h (cefazolin would be reasonable as well but difficult to dose w/ labile renal function) 2. Follow up repeat blood cultures to ensure clearance Thank you for allowing us the privilege of participating in Mr. Bryan's care. Trey Tolentino MD Infectious Disease Attending * Florecita Khan, RT - 03/20/2019 1005 EDT Respiratory Progress Note Indications for Respiratory therapy: Vent Data Vitals: Heart Rate: 58 BPM, Resp: 17, SpO2: 90 % FIO2/O2 Device: O2 Device: Intubated, FIO2 %: 50 % RT Orders: AC 610 x 14 peep 5 50% Action/Events 9:47 Patient was weaned to a RR of 14. 10:03 Patient was changed to a tidal volume of 610 which is 8cc/kg 11:01 IPV treatment started. Obtained a moderate to large amount of thick secretions. 11:28 Sputum obtained. 13:00 patient continues to desaturate to the mid 80's without being agitated. Discussed with Dr. Murdock. Patient peep increased to 10. 13:03 IPV treatment done. Small amount of white secretions obtained. 14:30 Dr. Coto at bedside. CXR obtained. 14:50 patient placed on PC briefly with no improvement in WOB and large tidal volumes. 15:01 ABG 7.29/59/77/30 15:10 patient placed back on VC-AC per Dr. Cid. IPV not done at this time. 16:00 Peep decreased to 10, FIO2 changed as needed to maintain sats. 18:30 weaned to 65% Response/Results Plan to do a one time IPV trial Wean FIO2 as able. FLORECITA KHAN, 03/20/19 * Jocelyn Coto MD - 03/20/2019 0631 EDT Critical Care Progress Note Service Date: 03/20/2019 Admit Date: 03/17/2019 9:03 Reason for Admission to ICU: 64 y.o. male with no past medical history and current smoker who was transferred from [facility] on 03/17 and admitted to the MICU for management of septic shock and acute hypoxic respiratory failure secondary to presumed pneumonia. Critical and life-threatening events over the past 24 hours: - patient is intubated and on ventilator VC-AC, FiO2 50%, Rate 14, TV 490, PEEP 8 Subjective/Objective Subjective Still intubated and sedated. Review of Systems Review of systems not obtained due to patient factors: Ventilated, Unable to speak and Unable to comprehend Objective Blood pressure 119/74, temperature 36.8 ??C (98.2 ??F), temperature source Tympanic, resp. rate 16,height 181.6 cm (71.5), weight 70.4 kg (155 lb 3.2 oz), SpO2 94 %. Physical Exam General: Thin man appearing his stated age, intubated and on the ventilator. HEENT: NC/AT. No discharge from eyes, ears, nose, mouth. Cardiovascular: RRR, S1 S2, 2/6 blowing holosystolic murmur heard in all sanderson, otherwise no rubs,gallops, or ectopy. Radial and DP pulses 2+ bilaterally. Respiratory: Harsh inspiratory crackle at the left axillary field. Anterior sanderson clear to auscultation. GI: Non-distended abdomen. No masses or pulsations appreciated on palpation. : Park present. Musculoskeletal: Sedated. Skin: Brown, warm, dry. Bruising on coccyx concerning for developing pressure injury Neuro: Patient is sedated. Does not follow commands. Assessment/Plan Assessment Shirlene Bryan is a 64 yo male with a history of COPD and current smoker who was transferred from [facility] on 03/17 for management of atrial fibrillation with RVR and pneumonia complicated by acute hypoxic respiratory failure. He required intubation, sedation, and was started on pressors. Now admitted to the MICU for management of pneumonia complicated by septic shock, ARDS, metabolic acidosis, AF w/ RVR, SIRISHA, and volume overload. Now off pressors and euvolemic. Goal for today to find better sedation plan so he can tolerate SBT. Will trial low dose fentanyl drip. Plan PULM: # Acute hypoxic respiratory failure with ARDS - improving Secondary to pneumonia, volume overload, and underlying emphysema (seen on CT). Successful SBT of 45 mins - ARDSnet ventilation - Vent Settings: VC-AC, FiO2-50, Rate-14, VT-490 PEEP 8 - Lung protective ventilation 6cc/kg - Antibiotics as below CV: # Septic shock - resolved (required 3 pressors on admission) ?? # Rapid A. Fib Diltiazem for rhythm control at outside hospital. Not currently anticoagulation. Ok for heart ratesin the 120s - For AF w/ RVR would consider amiodarone if HR>150 - Follow Mg level target >2 mg/dl ?? RENAL: # Acute Renal Failure - Cr 2.62 (3.49) In the setting of septic shock. Initially presented with JVD and IVC without respiratory variation on U/S exam. Now clinically euvolemic and resolving. - Furosemide 60mg daily for goal of net even - Has had good UOP - Strict input and output - Park ?? #Hypernatremia 2/2 to tube feeds w/o free water - trend electrolytes q6 - Increase free water to 600 q4 #Hypokalemia Due to aggressive diureses - Check q 6 hrs - Check Mg q 6 hrs - Replete as needed # Hypocalcemia Came in with Ca of 6.4 (calculated Ca 7.8). HypoCa likely 2/2 sepsis and hyperphosphatemia as a consequence of SIRISHA. - no current action ?? Intake/Output Summary (Last 24 hours) at 03/20/2019 0634 Last data filed at 03/20/2019 0500 Gross per 24 hour Intake 2897.41 ml Output 3974 ml Net -1076.59 ml ID: #Sepsis 2/2 left lower PNA Presumed community acquired. Procal trending down. MSSA nasal swab positive, legionella and strep pneumo negative. - Continue azithromycin 500 mg - Continue ceftaroline per ID recs pending sensitivities - now ID'd as MSSA- change to cefazolin - Monitor fever and WBC curve - f/u with Kira on sensistivities of coag + staph. - f/u sputum cx - Echo if persistent bacteremia given staph, murmur ?? NEURO/PSYCH: - Weaning off olanzapine 10mg BID oral - 5 mg qhs for a few days - Fentanyl drip 25 mc/hr - Fentanyl prn boluses - Acetaminophen 1000mg [id number] scheduled - change to prn - wean off propofol drip as able ENDO: #Hyperglycemia Patient has been on steroids, just taken off this am Glucoses have been 180s-220 with SSI. - [id number] POC G checks - SSI - Consider insulin drip if persistently elevated over 200 tomorrow - Hesitant to give glargine given his renal function and coming off steroids GI: - No active issues - Diet: Replete tube feeds at 50 mL/hr - Bowel regimen ?? H/O: - Monitor CBC #Thrombocytopenia In the setting of pneumonia, may be chronic. Stable - Monitor CBC ?? DERM #Deep tissue injury Bruising on coccyx -Consult wound care ?? LINES: - CVC - A line-d/c tomorrow - Park ?? PPX: - GI - PPI - DVT - Heparin ?? Code status: Full code Clinical Condition: Unstable Critical Care Daily Checklist: Completed Yasmien Falcon 03/20/2019 6:31 Attending attestation statement: I saw and examined the patient with the resident and agree with the findings and plans as documented, and as amended in blue. Clinical Condition: Shirlene Bryan is a critically ill 64 y.o. male. Over the past 24 hours, therehas been a high probability of sudden, clinically significant or life threatening deterioration in the patient???s condition, which include the following diagnoses which I have managed: Active Problems: Atrial fibrillation with RVR Acute respiratory failure with hypoxia Septic shock ARDS SIRISHA Anemia Thrombocytopenia Bacteremia Fever Encephalopathy Critical Care time was provided in the form of interventions to treat and prevent further life threatening deterioration of the patient???s condition including: Management of mechanical ventilation, Management of pain and sedation, Fluid and electrolyte management and Antimicrobial therapy, and high complexity decision making regarding candidacy for extubation and need for additional imaging studies and / or interventional radiology interventions . My bedside involvement was required to monitor and direct the critical care that has been provided.Exclusive of procedures, my critical care time is 30 minutes. Jocelyn Coto MD MICU Attending 03/20/2019 * Jess Lira, RT - 03/20/2019 0454 EDT Respiratory Progress Note Indications for Respiratory therapy: Mechanical Ventilation Data Vitals: Heart Rate: 79 BPM, Resp: 19, SpO2: 97 % FIO2/O2 Device: , , O2 Device: Intubated, FIO2 %: (S) 50 % RT Orders: VENT: VC-AC 490 x 20 + 8 Action/Events Overnight Pt was suctioned for small amount of brown, thick / thin sputum. FiO2 requirement increasedat beginning of shift to 60%, now back down to 50%. Pt was placed on a SBT from 0639-9173 @ 11/08. High MV and some dyssynchrony present. Pt placed back on full support. Plan Continue as ordered at this time. Wean FiO2 as tolerated. JESS LIRA, RT 03/20/19 * Flex Flores MD - 03/20/2019 0138 EDT Brief Progress Note: FiO2 fluttering between 50-60 to maintain SpO2 >88%. PEEP of 8 throughout. Discontinue the arterial line. Plan to wean steroids given HD stability with final dose on morning of 03/20/19. Hypokalemic with 80 mEq PO and 40 mEq IV repletion. Increased free water to 400 mL every 4 hours; daily total of 2.4L. Deficit calculated at 3.6L. Acetaminophen transitioned from scheduled to PRN. Flex Flores MD * Alli Mariscal RT - 03/19/2019 1542 EDT Respiratory Progress Note Indications for Respiratory therapy: Mechanical Ventilation Vitals: Heart Rate: 64 BPM, Resp: 21, SpO2: 92 % on AC 490 * 20 + 8, 45% RT Orders: Q4H Ventilator Evaluation 1538: Care assumed of pt. No dyssynchrony/dyspnea evident on assessment. Vitals remain consistent with pt trending. BBS are diminished with faint bibasilar fine crackles. Suctioned for scant clear secretions. Will see as ordered. 2024: Commercial tube topete placed, requiring two WEB PROJECT MANAGER's and RN and increased sedation to prevent self extubation. 2239:Responded to vent alarm to find pt highly dyssynchronous and waking from sedation. Pt was aggressively fight and jerking his head side to side. RN at bedside administered sedation. Suctioned/lavaged pt for thick tenacious yellow/brown secretions. RT NOEMY 03/19/19 * Florecita Khan RT - 03/19/2019 1024 EDT Respiratory Progress Note Indications for Respiratory therapy: intubated Data Vitals: Heart Rate: 101 BPM, Resp: 24, SpO2: 92 % FIO2/O2 Device: O2 Device: Intubated, FIO2 %: 50 % RT Orders: AC 490 x 20 peep 8 50% Action/Events Patient was taken off of Flolan at 7:15 with no complications or significant vital sign changes. Heis saturating in the low 90's on 8 of peep and 50%. His ETT is secure at 25 at the lips. 11:50 weaned patient to 45% FIO2 12:30 patient desatted to 80% while awake and thrashing about in bed. Relaxed after being given fentanyl. Sats returned to the low 90's. Response/Results Plan to wean ventilator settings today per ARDS protocol. RT FLORENCIO 03/19/19 * Jocelyn Coto MD - 03/19/2019 0652 EDT Critical Care Progress Note Service Date: 03/19/2019 Admit Date: 03/17/2019 9:03 Reason for Admission to ICU: 64 y.o. male with no past medical history and current smoker who was transferred from [facility] on 03/17 and admitted to the MICU for management of septic shock and acute hypoxic respiratory failure secondary to presumed pneumonia. Critical and life-threatening events over the past 24 hours: - patient is intubated and on ventilator VC-AC, FiO2 50%, Rate 20, TV 490, PEEP 8 Subjective/Objective Subjective Still intubated and sedated. Review of Systems Review of systems not obtained due to patient factors: Ventilated, Unable to speak and Unable to comprehend Objective Blood pressure 119/74, temperature (!) 38.8 ??C (101.8 ??F), temperature source Tympanic, resp. rate 22, height 181.6 cm (71.5), weight 70.4 kg (155 lb 3.2 oz), SpO2 93 %. Physical Exam General: Thin man appearing his stated age, intubated and on the ventilator. HEENT: NC/AT. No discharge from eyes, ears, nose, mouth. PERRL from 2 to 1 mm bilaterally. Cardiovascular: RRR, S1 S2, 2/6 blowing holosystolic murmur heard in all sanderson, otherwise no rubs,gallops, or ectopy. Radial and DP pulses 2+ bilaterally. Respiratory: Harsh inspiratory crackle at the left axillary field. Anterior sanderson clear to auscultation. GI: Non-distended abdomen. +BS. No masses or pulsations appreciated on palpation. : Park present with 200 mL clear yellow fluid. Musculoskeletal: Sedated. Skin: Brown, warm, dry. Bruising on coccyx concerning for developing pressure injury Neuro: Patient is sedated. Opens eyes to verbal stimuli. Does not follow commands. Assessment/Plan Assessment Shirlene Bryan is a 64 yo male with a history of COPD and current smoker who was transferred from [facility] on 03/17 for management of atrial fibrillation with RVR and pneumonia complicated by acute hypoxic respiratory failure. He required intubation, sedation, and was started on pressors. Now admitted to the MICU for management of pneumonia complicated by septic shock, ARDS, metabolic acidosis, AF w/ RVR, SIRISHA, and volume overload. Now off pressors and euvolemic, however complicated by up trending fever. Plan PULM: # Acute hypoxic respiratory failure with ARDS - improving Secondary to pneumonia, volume overload, and underlying emphysema (seen on CT). Initially so hemodynamically unstable that he would not tolerate proning or APRV, but now improving. - ARDSnet ventilation - Vent Settings: VC-AC, FiO2-60, Rate-20 VT-490 PEEP 10 - Lung protective ventilation 6cc/kg - Off epoprostanol - Antibiotics as below - Steroids as below CV: # Septic shock - resolved In the setting of pneumonia, required multiple pressors. S/p a line - weaned off all pressors - Hydrocortisone 50mg q6 hours, will discontinue in the next 24 hours pending stability ?? # Rapid A. Fib Diltiazem for rhythm control at outside hospital. Not currently anticoagulation. Ok for heart ratesin the 120s - For AF w/ RVR would consider amiodarone if HR>150 - not stable enough for Bbl or CCB currently - Follow Mg level target >> 2 mg/dl ?? RENAL: # Acute Renal Failure - Cr 3.49 (3.18) In the setting of septic shock. Initially presented with JVD and IVC without respiratory variation on U/S exam. Now clinically euvolemic, and creatinine bumped. - furosemide prn for goal of net even - discontinue scheduled furosemide and indapimide as Cr elevated and appears euvolemic - Has had good UOP - Strict input and output - Park ?? # Metabolic acidosis - Resolved Gap 14. Lactate resolved. Secondary to renal failure (uremia). S/p 5 amps of bicarb - trend electrolytes - increase free water given hypernatremia ?? # Hypocalcemia Came in with Ca of 6.4 (calculated Ca 7.8). HypoCa likely 2/2 sepsis and hyperphosphatemia as a consequence of SIRISHA. - no current action ?? Intake/Output Summary (Last 24 hours) at 03/19/2019 0816 Last data filed at 03/19/2019 0800 Gross per 24 hour Intake 3360.48 ml Output 5210 ml Net -1849.52 ml ID: #Sepsis 2/2 left lower PNA Presumed community acquired. Procal of 7.59 yesterday. MSSA nasal swab positive, legionella and strep pneumo negative. Uptrending fever curve, see belwo. OSH cxs now ID'd as 1/4 coag + staph concerning for staph aureus. - Continue azithromycin 500 mg - DisContinue Piperecillin-tazobactam, start ceftaroline per ID recs pending sensitivities - Will d/c in the next 24 hrs vitamin C, thiamine, and hydrocortisone - Monitor fever and WBC curve - f/u with [facility] on sensistivities of coag + staph. - f/u sputum cx - Follow procalcitonin -echo if persistent bacteremia given staph, murmur. ?? # Uptrending fever curve Febrile to 38.8, but otherwise clinically improving and down trending leukocytosis. Raises concern for untreated MRSA infection, new line infection or non-infectious etiologies like drug fever (epoprostenol, antibiotics) or DVT (on DVT ppx) - Re culture blood and urine -will likely be able to d/c CVC and a line in next 24 hrs. If line still needed an still febrile will need to change -minimize meds as able. No rash or eos but on steroids. NEURO/PSYCH: - Olanzapine 10mg BID oral - Fentanyl prn - Acetaminophen 1000mg [id number] scheduled - Wean ketamine - Trial propofol again if agitated off ketamine ENDO: #Hyperglycemia Glucoses have been 180s-220 with SSI. - [id number] POC G checks - SSI - Consider insulin drip if persistently elevated over 200 - Hesitant to give glargine as that would decrease sugars GI: - No active issues - Diet: Replete tube feeds at 50 mL/hr - Bowel regimen ?? H/O: #Leukocytosis-resolved In the setting of pneumonia - Monitor CBC #Thrombocytopenia In the setting of pneumonia, may be chronic - Monitor CBC ?? DERM #Deep tissue injury Bruising on coccyx -Consult wound care ?? LINES: - CVC - d/c or change tomorrow if remains febrile - A line-d/c tomorrow - Park ?? PPX: - GI - PPI - DVT - 5000mg f2corct ?? Code status: Full code Clinical Condition: Unstable Critical Care Daily Checklist: Completed Yasmine Falcon 03/19/2019 6:52 Attending attestation statement: I saw and examined the patient with the resident and agree with the findings and plans as documented, and as amended in blue. Clinical Condition: Shirlene Bryan is a critically ill 64 y.o. male. Over the past 24 hours, therehas been a high probability of sudden, clinically significant or life threatening deterioration in the patient???s condition, which include the following diagnoses which I have managed: Active Problems: Acute respiratory failure with hypoxia Septic shock ARDS 2/2 to pneumonia SIRISHA Anemia / Thrombocytopenia Bacteremia Fever Encephalopathy Atrial fibrillation with RVR Critical Care time was provided in the form of interventions to treat and prevent further life threatening deterioration of the patient???s condition including: Management of mechanical ventilation, Management of pain and sedation, Fluid and electrolyte management and Antimicrobial therapy, and high complexity decision making regarding candidacy for extubation and need for additional imaging studies and / or interventional radiology interventions and the need for critical procedures, such as: removal of central / a lines. My bedside involvement was required to monitor and direct the critical care that has been provided.Exclusive of procedures, my critical care time is 45 minutes. Jocelyn Coto MD MICU Attending 03/19/2019 * Brandi Vasquez - 03/19/2019 0430 EDT Respiratory Progress Note Indications for Respiratory therapy: Vent Data Vitals: Heart Rate: 101 BPM, Resp: 26, SpO2: 92 % FIO2/O2 Device: , , O2 Device: Intubated, FIO2 %: 50 % RT Orders: AC 490 x 20 +8 Flolan Continuous Action/Events Respiratory events; Patient remained on above vent settings overnight. No complications noted. 0320: Flolan syringe replaced. No SBT as pt is on inhaled flolan. Response/Results Weaning and Toleration of treatments; Continue to wean as tolerated. Brandi Vasquez 03/19/19 * Paola Mendez RT - 03/18/2019 1707 EDT 1700 - Flolan rate dropped to 20 per Lesley. SpO2 stable at 92%, BP stable 1821 - PEEP dropped to 8, tolerated well * Maty Griggs RT - 03/18/2019 1018 EDT Respiratory Progress Note Indications for Respiratory therapy: intubated/pna Data Vitals: Heart Rate: 108 BPM, Resp: 17, SpO2: 95 % FIO2/O2 Device: , , O2 Device: Intubated, FIO2 %: 60 % RT Orders: AC 490 x 20 peep 10 Flolan continuous ARDS protocol Action/Events Respiratory events; 0740: pt tolerating vent settings well. Pt remains on 50 ng/kg/min of Flolan. Breath sounds diminished with few rales in bases. Suctioned pt for small amount of thick/thin clear/pink tinged secretions. 0930: flolan now down to 40 and fio2 down to 50% 1018: flolan decreased to [address] galdamez Response/Results Weaning and Toleration of treatments; Wean vent as tolerated RT Eleni 03/18/19 * Leticia Galdamez MD - 03/18/2019 0826 EDT Critical Care Progress Note Service Date: 03/18/2019 Admit Date: 03/17/2019 9:03 Reason for Admission to ICU: 64 y.o. male with no past medical history and current smoker who was transferred from [facility] on 03/17 and admitted to the MICU for management of septic shock and acute hypoxic respiratory failure secondary to presumed pneumonia. Critical and life-threatening events over the past 24 hours: - patient is intubated and on ventilator VC-AC, FiO2 weaned to 60, Rate 20, VT 490, PEEP 10. - patient is on pressors, currently levophed 7.5 mcg/min and vasopressin 0.04 U/min. Subjective/Objective Subjective Mr. Bryan is sedated, intubated, and on the ventilator. He is somnolent, but opens his eyes to verbal stimuli. He does not follow commands. Review of Systems Review of systems not obtained due to patient factors: Ventilated, Unable to speak and Unable to comprehend Objective Blood pressure 119/74, temperature 38.3 ??C (100.9 ??F), temperature source Tympanic, resp. rate 21, height 181.6 cm (71.5), weight 70 kg (154 lb 6.4 oz), SpO2 94 %. Physical Exam General: Thin man appearing his stated age, intubated and on the ventilator. HEENT: NC/AT. No discharge from eyes, ears, nose, mouth. PERRL from 2 to 1 mm bilaterally. Cardiovascular: RRR, S1 S2, 2/6 blowing holosystolic murmur heard in all sanderson, otherwise no rubs,gallops, or ectopy. Radial and DP pulses 2+ bilaterally. Respiratory: Harsh inspiratory crackle at the left axillary field. Anterior sanderson clear to auscultation. GI: Non-distended abdomen. +BS. No masses or pulsations appreciated on palpation. : Park present with 200 mL clear yellow fluid. Musculoskeletal: Sedated, moving arms slightly. Skin: Brown, warm, dry. Neuro: Patient is sedated. Opens eyes to verbal stimuli. Does not follow commands. Assessment/Plan Assessment Shirlene Bryan is a 64 yo male with a history of COPD and current smoker who was transferred from [facility] on 03/17 for management of atrial fibrillation with RVR and pneumonia complicated by acute hypoxic respiratory failure. He required intubation, sedation, and was started on pressors. Now admitted to the MICU for management of pneumonia complicated by septic shock, ARDS, metabolic acidosis, AF w/ RVR, SIRISHA, and volume overload. Plan PULM: # Acute hypoxic respiratory failure ABG 7. on arrival. CXR with diffuse opacities, concern for ARDS. Does not have a know history of COPD (emphysema on CT), but current smoker. Currently hemodynamics very tenuous on multiple pressors which could make it difficult to tolerate these interventions (e.g. Paralysis for proning would necessitate additional sedation). FiO2 seems to be improving so will continue with conventional ventilation for now and monitor closely. Attempted to transition from ketamine to propofol, but patient became hypotensive. - Vent Settings: VC-AC, FiO2-60, Rate-20 VT-490 PEEP 10 - Lung protective ventilation 6cc/kg - ketamine gtt for sedation - Consider APRV or proning, but requiring multiple pressors - Antibiotics as below - Diurese as below - Steroids as below - ARDSnet ventilation - Inhaled epoprostanol - For deterioration would consider proning and/or APRV. Improving oxygenation Transition to ARDSnet PEEP scale given improvement in hemodynamics Wean epoprostanol ideally to off. ?? CV: # Septic shock In the setting of pneumonia. S/p a line - Levophed and vasopressin - Wean levophed first - Hydrocortisone 50mg q6 hours - Down to 5 mcg NE and 0.04 vaso - Use vaso preferrentially given SIRISHA and AF w/ RVR - Diuresis - target net even - Will schedule 40 mg iv furosemide q6hr - follow I/O balance Weaning down off pressors Continue scheduled furosemide currently running net even which is good. Follow Mg target >> 2 mg/dL to avoid recurrent AF ?? # Rapid A. Fib Diltiazem for rhythm control at outside hospital. Not currently anticoagulation. Ok for heart ratesin the 120s - For AF w/ RVR would consider amiodarone - not stable enough for Bbl or CCB currently - check Mg level ?? RENAL: # Acute Renal Failure-Cr 3.18 (3.11) In the setting of sepsis PNA most likely pre-renal due to decreased fluid intake and diarrhea. BUN 90 Patient with 6L fluid given at [facility], presented to MICU with JVD and immobile IVC on respiration with U/S exam. - 1 dose of Lasix 70 mg given, good response. - Lasix 40 mg IV q 6 hr - Indapamide 5mg daily - Strict input and output - Park SIRISHA, Cr stable, hopefully will start decreasing soon Good UOP Diuretics to keep volume status even ?? # Metabolic acidosis Gap 14. Lactate 1.6. Renal failure (uremia). - S/p 3 amps bicarb - trend electrolytes - consider further bicarb amps if bicarbonate remains low and not developing hypernatremia ?? # Hypocalcemia Came in with Ca of 6.4 (calculated Ca 7.8). HypoCa likely 2/2 sepsis and hyperphosphatemia as a consequence of SIRISHA. - no current action ?? Intake/Output Summary (Last 24 hours) at 03/18/2019 0826 Last data filed at 03/18/2019 0800 Gross per 24 hour Intake 2212.68 ml Output 2455 ml Net -242.32 ml ID: #Sepsis 2/2 PNA Presented to [facility] with two and a half weeks of fever, weight loss, and diarrhea. Dx with left lower lobe pneumonia. Community acquired. Patient has a presumed history of COPD due to smoking status and emphysema seen on chest x- ray. Procal of 7.59. MSSA positive, legionella and strep pneumo negative. - Received 2 doses ceftriaxone - Continue azithromycin 500 mg (03/15-03/25) - Continue Piperecillin-tazobactam for broader coverage pending clx results - Given vitamin C, thiamine, and hydrocortisone - Monitor fever and WBC curve - f/u clx from [facility] - Follow procalcitonin 1/2 BCx at 3 days from [facility] likely false positive; f/u speciation & sensitivities Continue piptazo/azithro F/u sputum cx ?? ENDO: #Hyperglycemia - [id number] POC G checks - SSI ?? GI: - No active issues - Diet: Replete tube feeds at 50 mL/hr - Bowel regimen ?? H/O: #Leukocytosis In the setting of pneumonia - Monitor CBC #Thrombocytopenia In the setting of pneumonia - Monitor CBC ?? NEURO/PSYCH: - Olanzapine 10mg BID oral - Fentanyl prn - Acetaminophen 1000mg [id number] scheduled Tried propofol infusion but again caused hypotension Continue ketamine gtt for now Would trial transitioning from ketamine to propofol again tomorrow when hemodynamics better. ?? LINES: - CVC - A line - Park ?? PPX: - GI - PPI - DVT - 5000mg [id number] ?? Code status: Full code Clinical Condition: Unstable Critical Care Daily Checklist: Completed Ernie Ash 03/18/2019 8:26 Attending attestation statement: I saw and examined the patient with the resident and agree with the findings and plans as documented, and as amended in blue. Clinical Condition: Shirlene Bryan is a critically ill 64 y.o. male. Over the past 24 hours, therehas been a high probability of sudden, clinically significant or life threatening deterioration in the patient???s condition, which include the following diagnoses which I have managed: 1. Acute respiratory failure with hypoxia (HCC-CMS) 2. Atrial fibrillation with RVR (HCC-CMS) Critical Care time was provided in the form of interventions to treat and prevent further life threatening deterioration of the patient???s condition including: Management of mechanical ventilation, and high complexity decision making regarding candidacy for extubation and the need for critical procedures, such as: titration of epoprostanol. My bedside involvement was required to monitor and direct the critical care that has been provided.Exclusive of procedures, my critical care time is 52 minutes. Leticia Galdamez MD Pulmonary & Critical Care Medicine 03/18/2019 * Shari Farfan, RT - 03/17/20192033 EDT Respiratory Progress Note Indications for Respiratory therapy: intubated/pna Data Vitals: Heart Rate: 93 BPM, Resp: 25, SpO2: 94 % FIO2/O2 Device: , , O2 Device: Intubated, FIO2 %: 80 % RT Orders: AC 490 x 20 peep 10 Flolan continuous nebulization Action/Events Respiratory events; 1999 Pt sounds clear and is on 80% oxygen with a spo2 of 94; no room to wean at this time. 2144 ABG was drawn; 7.25, 46, 76, 21, 92, -7. NO vent changes were made Per 2230 Flolan syringe was replaced 0252 ABG was drawn; 7.27, 46,103,22,97, -6. PT oxygen was weaned down to 70% 0500 PTs tube topete was slowly slipping off his face all night due to facial structure, we re taped it at 26cm at the lower lip. PT did not qualify for a weaning trial 0625 pt was weaned to 60% oxygen RT ANDREA 03/17/19 * Maty Griggs, RT - 03/17/2019 1206 EDT Respiratory Progress Note Indications for Respiratory therapy: intubated/pna Data Vitals: Heart Rate: 127 BPM, Resp: 25, SpO2: 95 % FIO2/O2 Device: , , O2 Device: Intubated, FIO2 %: 100 % RT Orders: AC 490 x 26 peep 10 Flolan continously Action/Events Respiratory events; 1022: pt arrived from [facility] intubated and placed on our Drager around 0900. Pt's ett resecured. abg done on settings pt arrived on. abg @ 0916 7./83/17 BD -16. Dr Galdamez aware of results. Plan to possibly start pt on APRV once they get him more hemodynamically stable. Placing lines at this time. Flolan just initiated at [address] Galdamez. 1205: fio2 had been turned down earlier by . Pt now on 80%. Repeat abg done. abg improving. Increased peep to [address] galdamez. Suctioned pt for no secretions. Maty Griggs, 03/17/19 documented in this encounter H&P Notes * Shelly Guzman MD - 04/14/2019 0906 EDT Images from the original note were not included. Transfer Summary History & Physical Service Date: 04/14/2019 Admit Date: 03/17/2019 9:03 Primary Care Provider: Doctor Unknown Chief Complaint: Sepsis secondary to left lower PNA and MSSA bacteremia complicated by cute hypoxicrespiratory failure with ARDS secondary to pneumonia,??volume overload, and COPD HPI Shirlene Bryan is a 64 y.o. male with no known past medical history (does not have PCP and does not receive regular medical care) who recently quit smoking who presented to [facility] via transfer from [facility] with Sepsis??secondary to??left lower PNA and MSSA bacteremia complicated by??acute hypoxic respiratory failure with ARDS, SIRISHA, a fib w/RVR. ?? He presented to [facility] on 03/15 due to 2 weeks of fever, anorexia, weakness, fatigue, body aches, diarrhea, vomiting and decreased intake of food and fluids. At [facility] labs were significant for Na: 134 ??K: 3.9 ??Cl: 95 ??CO2: 17 Ca: 9 Cr: 5.75 ??BUN: 178 ??Lactic acid: 2.7 ??WBC: 18.01. CT chest showed multiple areas of consolidation in both lungs. He was thereafter admitted for pneumonia and renal failure. He was treated with azithromycin, ceftriaxone and received 6L of IV fluids. Subsequentlyhe developed rapid a fib on the morning of 03/16. He was intubated, placed on a diltiazem drip and transferred to the [facility] MICU for management of pneumonia complicated by septic shock, ARDS, metabolic acidosis, AF w/ RVR, SIRISHA, and volume overload.? On presentation to [facility] he was on levophed and propofol. He was transitioned to ketamine secondary to hypotension. Epoprostenol, zosyn and azithromycin were all begun on 03/17. His azithromycin was stopped on 03/19 with ceftaroline started and a dose of vancomycin was given on 03/20. He was initially hemodynamically unstable however his oxygentation began to improve and ARDSnet ventilation was used. Blood cultures from [facility] grew MSSA and his antibiotics were narrowed to nafcillin with zosyn on 03/21. On 03/19 a phenylephrine drip was initiated due to hemodynamic instability during a SBT. On 03/20 he he had an acute decompensation with concern for PE, given heparin and noted to have bright red blood per rectum and out of his OG Tube. His Hgb dropped to 5 and he was given 3 uRBCs and 1 uPLTs andrestarted on pressors. He had an appropriate response to the blood products. EGD performed and revealed diffuse stomach and duodenal ulceration. TIESHA on 03/26 revealed no acute findings. ?? Due to difficulty weaning sedation and intubated he had a tracheostomy on 03/28 and was partially weaned off of propofol. He had steady improvement in trach collar oxygenation with a speech valve placed on 04/10. ?? On 04/07 his hemoglobin was noted to be 6.6 and he received 1 uRBCs and responded appropriately. HisHGB has been stable (8.1 to 8.3) for the past 3 days. ?? On 04/04 he had a temperature of 38.0 and then 35.1 and 35.3 on the night of 04/05-4. He next spiked a fever of 38.0 on 04/08 and was then down to 35.6 on 04/09. On 04/11 he spiked to 38.5 on on reading and then to 38.1 on 04/12. The next day (04/13) his temperature fell to 35.1 before jumping back to 38.0. Today 04/14 he is afebrile. On 04/12 he was deemed stable and transferred to the medicine service however overnight he developed an increasing supplemental oxygen requirement refractory to RT treatment with an ABG showing hypoxemia with pO2 of 49 and was transferred back to the MICU. During the event he was asymptomatic. Today, he reports that he feels much better than he has been. He says that he feels better and stronger. He reports that his breathing feels better with fewer secretions and less use of suction. He has not had much of an appetite but ate a a breakfast of eggs this morning and has had several puddings. He needs help standing and transferring. He had a normal bowel movement today Review of Systems -fever, -chills, - GAUTHIER, - nasal congestion, - CP, -palpitations, -abdominal pain, - nausea, - vomiting, - constipation, - diarrhea + SOB, +congestion in throat/chest Past Medical History: Diagnosis Date ??? ARDS (adult respiratory distress syndrome) ([facility] Past Surgical History: Procedure Laterality Date ??? TRACHEOSTOMY Social History Tobacco Use ??? Smoking status: Current Every Day Smoker Packs/day: 1.50 Types: Cigarettes ??? Smokeless tobacco: Never Used ??? Tobacco comment: Quit 2 weeks ago Substance Use Topics ??? Alcohol use: Yes Alcohol/week: 2.0 standard drinks Types: 2 Cans of beer per week Family History Problem Relation Age of Onset ??? Stroke Mother Cerebrovascular disease ??? Stroke Father Cerebrovascular disease No Known Allergies Objective Vitals Temp: [35.8 ??C (96.4 ??F)-38 ??C (100.4 ??F)] (), Heart Rate: [76 BPM-120 BPM] (), Pulse: [64] (),Resp: [18-35] (), BP: (121-136)/(70-85) (), SpO2: [90 %-98 %] (), O2 Flow Rate (L/min): 10 l/min with FiO2 of 40 via trach collar Numeric Pain Level (Scale 1-10): 0 Weight: Weight : 55.4 kg (122 lb 2.2 oz) Body mass index is 16.8 kg/m??. Physical Exam General: Very thin male in no acute distress. Alert and interactive and very interested in footballon TV HEENT: AT/NC. Nonicteric, MMM Cardiac: RRR with normal s2, s2, no murmurs appreciated. Pulm: diffuse bilateral low pitched inspiratory wheezes, no crackles appreciated Abdomen: soft, non-tender, non-distended, no organomegaly. + bowel sounds Extremities: Cool hands and feet. Warm at ankles and forearms. 2+ radial and pt pulses Skin: no rashes on exposed skin, bruising on arms, sacral wound not assessed Neuro: conjugate gaze, fluent speech, no dysarthria, no facial asymmetry Pressure Ulcer Present on admission? Yes - sacral deep tissue injury followed by za and currently treated with mepilex Labs I have personally reviewed Recent Labs 04/14/19 0429 WBC 12.62* RBC 2.73* HGB 7.7* HCT 25.0* MCV 92 MCH 28.2 MCHC 30.8* PLT 337 Recent Labs 04/14/19 0429 NA 138 K 4.1 CL 105 CO2 27 CREATININE 0.72 CALCIUM 8.4* MG 2.0 PHOS 4.1 Recent Labs 04/13/19 0200 PHISTAT 7.47* PCOISTAT 32* POISTAT 49* POCTCO2 24 BEART 0 Intake/Ouput Imaging PORTABLE CHEST 1 VIEW ??04/13/2019 3:14 AM Impression: 1. ??Improving bilateral patchy airspace opacities. PORTABLE CHEST 1 VIEW ??04/08/2019 7:21 PM Impression: Multifocal pneumonia, unchanged from prior. ?? CTA CHEST W CONTRAST (PE) PROTOCOL ??03/29/2019 4:58 PM Impression: 1. ??No evidence of pulmonary embolism. 2. ??Improving pneumonia 3. ??Slight enlargement of bilateral pleural effusions ?? CT CHEST W CONTRAST ??03/26/2019 11:29 AM Impression: 1. ??Findings a progressive multifocal pneumonia within both lungs, particularly within the left lower lobe, with a more diffuse pattern likely reflecting noncardiogenic edema and diffuse alveolar damage. This is superimposed upon severe emphysema. 2. ??Tubes and lines in position as described. 3. ??Small bilateral parapneumonic effusions. 4. ?? Moderate aortic and great vessel atherosclerotic calcification. 5. ??Mild subcutaneous edema. 6. ??Mucous right lower lobe airways in particular. CT ABDOMEN, PELVIS W/WO CONTRAST ??03/26/2019 11:29 AM 1. ??A proximal loop of jejunum appears edematous and thickened, with the suggestion of hypoenhancement of the jejunal wall. Jejunal folds in this loop appear to maintain normal enhancement. Mesenteric edema and fluid is seen surrounding this loop. Clinical and laboratory value correlation is recommended. 2. ??Fecal material throughout the colon is isointense to the wall of the colon, which limits assessment of colonic wall thickness and enhancement. 3. ??No evidence of pneumatosis or portal venous gas. 4. ??Moderate to large volume ascites. 5. ??Marked gallbladder distention without radiopaque cholelithiasis or evidence of gallbladder wall thickening. 6. ??A 1.2 cm left adrenal nodule is indeterminate. In the absence of history of malignancy, this favors an adrenal adenoma. 7. ??Please refer to dedicated CT chest for full detail of intrathoracic findings. Assessment Shirlene Bryan is a 64 y.o. male with a history of cigarette smoking, not connected with medical care transferred from the MICU where he was treated for sepsis 2/2 PNA and MSSA bacteremia complicated by acute hypoxic respiratory failure with ARDS s/p trach. He also suffered from an acute blood loss anemia due to diffuse stomach and duodenal ulcers being treated with a PPI BID. His oxygen status is improving and he remains hemodynamically stable although he continues to have intermittent fever,temperatures <36 and a new leukocytosis today. Plan #Recurrent Fevers and temperatures <36 since 04/04. No clear source with improved CXR on 04/13. Negative UA on 04/08 and NGTD on blood cultures from 04/08 and 04/12. Tracheal aspirate from 04/13 showed mixed gram positive and negatives suggestive contamination. Today he has an elevated WBC count of12.62. He feels well and does not have any signs or symptoms of fever. He has had a decrease in respiratory secretions for the past 2 days. - acetaminophen 650mg q6hr PRN - monitor blood cultures from 04/08 and 04/12 NGTD - follow fever and WBC trend #Acute hypoxic respiratory failure with ARDS secondary to pneumonia,??volume overload, and COPD (empysema seen on CT). Most recent CXR on 04/08 showed no changes. He is increasingly tolerating oxygenation via trach collar with occasional desaturations that improve with suctioning. His speaking valvehas needed to be periodically removed due to desaturations and increased secretions. - Trach collar oxygenation as tolerated. Wean FiO2 from 40 as tolerated - Guaifenesin for secretions - Clonazepam BID, PRN for anxiety - PT/OT following ?? #Acute blood loss anemia. Previously with upper GI bleed from diffuse stomach and duodenal ulceration appreciated on upper EGD requiring 3 uRBCs and 1 uPLT with appropriate response. More recently on 04/07 his hgb dropped to 6.6 treated wih??1U pRBC with appropriate response. Etiology of drop was unclear??per MICU as the patient did??not show signs of active bleeding and was stable. Presumed to be multifactorial 2/2 to phlebotomy,??bone marrow suppression from critical illness,chronic anemia, and potential slow continued GI bleeding. Hgb was stable between 8.1 and 8.3 for 5 days and slightly decreased to 7.7 today - Transfuse if HgB <7?? - Daily CBCs - PPI BID for 4 weeks through 04/19/2019 and then transition to daily ?? #Severe protein calorie malnutrition and Critical Care myopathy - continue tube feeds which are at goal, may need to consider PEG tube - tube feeds at goal with dysphagia 2 diet - continue multivitamin - nutrition consulted, appreciate recs - DIE ATTACHING MACHINE TENDER consulted, appreciate recs ?? #COPD per CT findings this admission. - Duonebs q6 PRN ?? #Sacral deep tissue injury. Wound with white/yellow sloughing present. - Mepilex/dressing changes - air mattress with frequent dressing changes #Sepsis 2/2 left lower CAP and MSSA bacteremia - s/p 14 days of antibiotics completed on 03/30. Repeat blood cultures have remained negative with TTE on 03/26 with no acute findings. - resolved ?? VTE Prophylaxis - Lovenox 40mg daily ?? Diet - Dysphagia 2 diet ?? Discharge Plan -Uncertain at this time Code Status -limited per discussion with surrogate: withhold CPR, intubation and mechanical ventilation OK -reassess with patient ?? Consults -DIE ATTACHING MACHINE TENDER, OT, PT, Nutrition ?? Admission Status -Admitted to medicine floor Jaswinder Trent 04/14/2019 9:06 I was present with the medical student for the history, exam, and medical decision making documented. I have edited the medical student note as appropriate. Katja Pierson MD 04/14/2019 23:01 ATTENDING ATTESTATION: Date of service: 04/14/2019 I interviewed and examined the patient; reviewed interval labs, events, and notes. I discussed the case with the medicine house staff team and agree with and addended (in blue) the findings and plan of care as documented in resident note above. Shelly Guzman MD Internal Medicine Hospitalist Attending * Shelly Guzman MD - 04/12/2019 1123 EDT Images from the original note were not included. Transfer Summary History & Physical Service Date: 04/12/2019 Admit Date: 03/17/2019 9:03 Primary Care Provider: Doctor Unknown Chief Complaint: Sepsis secondary to left lower PNA and MSSA bacteremia complicated by cute hypoxicrespiratory failure with ARDS secondary to pneumonia,??volume overload, and COPD HPI Shirlene Bryan is a 64 y.o. male smoker with no known past medical history (does not have PCP and does not receive regular medical care) who presented to [facility] via transfer from [facility] withSepsis secondary to left lower PNA and MSSA bacteremia complicated by acute hypoxic respiratory failure with ARDS, SIRISHA, a fib w/RVR. He presented to [facility] on 03/15 due to 2 weeks of fever, anorexia, weakness, fatigue, body aches, diarrhea, vomiting and decreased intake of food and fluids. At [facility] labs were significant for Na: 134 ??K: 3.9 ??Cl: 95 ??CO2: 17 Ca: 9 Cr: 5.75 ??BUN: 178 ??Lactic acid: 2.7 ??WBC: 18.01. CT chest showed multiple areas of consolidation in both lungs. He was thereafter admitted for pneumonia and renal failure. He was treated with azithromycin, ceftriaxone and received 6L of IV fluids. Subsequentlyhe developed rapid a fib on the morning of 03/16. He was intubated, placed on a diltiazem drip and transferred to the [facility] MICU for management of pneumonia complicated by septic shock, ARDS, metabolic acidosis, AF w/ RVR, SIRISHA, and volume overload.?? On presentation to [facility] he was on levophed and propofol. He was transitioned to ketamine secondary to hypotension. Epoprostenol, zosyn and azithromycin were all begun on 03/17. He was initially hemodynamically unstable however his oxygentation began to improve and ARDSnet ventilation was used. Blood Cultures from [facility] grew MSSA and his antibiotics were narrowed to nafcillin. On 03/19 a phenylephrine drip was initiated due to hemodynamic instability during a SBT. On 03/20 he he had an acute decompensation with concern for PE, given heparin and noted to have bright red blood per rectum and out ofhis OG Tube. His Hgb dropped to 5 and he was given 3 uRBCs and 1 uPLTs and restarted on pressors. EGD performed and revealed diffuse stomach and duodenal ulceration. Due to difficulty weaning sedation and intubated he had a tracheostomy on 03/28 and was partially weaned off of propofol. He had steady improvement in trach collar oxygenation with a speech valve placed on 04/10. On 04/07 his hemoglobin was noted to be 6.6 and he received 1 uRBCs. His HGB has been stable (8.1 to8.3) for the past 3 days. On 04/11 he was noted to be febrile to 38.5 but has otherwise been afebrile since one measurement of38.1 on 04/08. On 04/12 he was deemed stable and transferred to the medicine service. Today, 04/12, he reports that he feels much better than he has been. He says that he is optimistic but tired both physically and emotionally. He reports that his breathing feels better however he uses his suction frequently. He also notes that his breathing feels worse with sitting upright. He saysthat he is hungry and would like to eat and drink. Review of Systems He denies fevers, chills, GAUTHIER, vision change, sinus congestion, CP, SOB, abdominal pain, nausea, vomiting, diarrhea, constipation. He says that he may have minor LE swelling. History reviewed. No pertinent past medical history. No past surgical history on file. Social History Tobacco Use ??? Smoking status: Current Every Day Smoker Packs/day: 1.50 Types: Cigarettes ??? Smokeless tobacco: Never Used ??? Tobacco comment: Quit 2 weeks ago Substance Use Topics ??? Alcohol use: Yes Alcohol/week: 2.0 standard drinks Types: 2 Cans of beer per week Family History Problem Relation Age of Onset ??? Stroke Mother Cerebrovascular disease ??? Stroke Father Cerebrovascular disease No Known Allergies Objective Vitals Temp: [36.3 ??C (97.3 ??F)-38.5 ??C (101.3 ??F)] (), Heart Rate: [72 BPM-85 BPM] (), Pulse: -- (), Resp: [18-28] (), BP: (117-142)/(61-94) (), SpO2: [84 %-100 %] (), O2 Flow Rate (L/min): 10 l/min with FiO2 of 40 via trach collar Numeric Pain Level (Scale 1-10): 0 Weight: Weight : 55.4 kg (122 lb 2.2 oz) Body mass index is 16.8 kg/m??. Physical Exam General: Very thin male in no acute distress. Appears tired but is alert and interactive with trachcollar in place Cardio: RRR with normal s2, s2, no murmurs appreciated. Pulm: diffuse bilateral low pitched wheezes, bilateral lower crackles with R>L Abdomen: soft, non-tender and non-distended with + bowel sounds : park in place Extremities: Feet are slightly cool but warm at the ankles with with brisk cap refill. No lower extremity edema noted Skin: no rashes on exposed skin, bruising on arms, sacral wound not assessed Neuro: A&O x 3, PERRL, conjugate gaze, fluent speech, no dysarthria, no facial asymmetry, moving all limbs purposefully Pressure Ulcer Present on admission? Yes - sacral deep tissue injury followed by za and currently treated with mepilex Labs I have personally reviewed Recent Labs 04/12/19 0448 WBC 8.73 RBC 2.76* HGB 8.1* HCT 25.1* MCV 91 MCH 29.3 MCHC 32.3* PLT 433* Recent Labs 04/12/19 0448 NA 137 K 4.2 CL 104 CO2 26 CREATININE 0.70 CALCIUM 8.3* MG 2.0 PHOS 3.9 Intake/Ouput Mirco 04/08 Urine culture: negative 04/08 blood culture: pending Imaging PORTABLE CHEST 1 VIEW ??04/08/2019 7:21 PM Impression: Multifocal pneumonia, unchanged from prior. CTA CHEST W CONTRAST (PE) PROTOCOL ??03/29/2019 4:58 PM Impression: 1. ??No evidence of pulmonary embolism. 2. ??Improving pneumonia 3. ??Slight enlargement of bilateral pleural effusions CT CHEST W CONTRAST ??03/26/2019 11:29 AM Impression: 1. ??Findings a progressive multifocal pneumonia within both lungs, particularly within the left lower lobe, with a more diffuse pattern likely reflecting noncardiogenic edema and diffuse alveolar damage. This is superimposed upon severe emphysema. 2. ??Tubes and lines in position as described. 3. ??Small bilateral parapneumonic effusions. 4. ?? Moderate aortic and great vessel atherosclerotic calcification. 5. ??Mild subcutaneous edema. 6. ??Mucous right lower lobe airways in particular. Assessment Shirlene Bryan is a 64 y.o. male with a history of cigarette smoking, not connected with medical care transferred from the MICU where he was treated for sepsis 2/2 PNA and MSSA bacteremia complicated by acute hypoxic respiratory failure with ARDS s/p trach. He also suffered from an acute blood loss anemia due to diffuse stomach and duodenal ulcers being treated with PPI BID. His oxygen status has been improving and he remains hemodynamically stable though continues to have recurrent fevers. Plan #Recurrent Fevers since 04/04. No clear source with unchanged CXR 04/08. Neg UA 04/08, NGTD blood cultures from 04/08. He feels well and did not have any signs or symptoms of fever. He has had increasingsecretions over the past 3 days since the speaking valve was placed. --acetaminophen 650mg q6hr PRN --repeat blood cultures 04/12 --tracheal aspirate culture #Sepsis 2/2 left lower CAP and MSSA bacteremia - s/p 14 days of antibiotics completed on 03/30. Repeat blood cultures have remained negative with TTE 03/26 without acute findings - resolved # Acute hypoxic respiratory failure with ARDS secondary to pneumonia,??volume overload, and COPD (empysema seen on CT). Most recent CXR on 04/08 showed no changes. He is increasingly tolerating oxygenation via trach collar with occasional desaturations that improve with suctioning. His speaking valve has needed to be periodically removed due to desaturations and increased secretions. - Trach collar oxygenation as tolerated. Wean FiO2 from 40 as tolerated - Guaifenesin for secretions - Clonazepam BID, PRN for anxiety - NPO 2/2 respiratory insufficiency, weakness per DIE ATTACHING MACHINE TENDER with high risk of aspiration - PT/OT following #Acute blood loss anemia. Previously with upper GI bleed from diffuse stomach and duodenal ulceration appreciated on upper EGD requiring 3 uRBCs and 1 uPLT. More recently on 04/07 his hgb dropped to 6.6 treated wih??1U pRBC with appropriate response. Etiology of drop was unclear??per MICU as the patient did??not show signs of active bleeding and was stable. Presumed to be multifactorial 2/2 to phlebotomy,??bone marrow suppression from critical illness, chronic anemia, and potential slow continued GI bleeding. Hgb now stable at 8.1 - Transfuse if HgB <7?? - CBC daily - PPI BID for 4 weeks through 04/19/2019 and then transition to daily #Severe protein calorie malnutrition and Critical Care myopathy - continue tube feeds which are at goal, may need to consider PEG tube - NPO 2/2 respiratory insufficiency, weakness per DIE ATTACHING MACHINE TENDER with high risk of aspiration - continue multivitamin - nutrition consulted, appreciate recs - DIE ATTACHING MACHINE TENDER consulted, appreciate recs #COPD per CT findings this admission. - Duonebs q6 PRN #Sacral deep tissue injury. Wound with white/yellow sloughing present. - Mepilex/dressing changes - air mattress with frequent position changes VTE Prophylaxis Lovenox Diet NPO, ok for ice chips Discharge Plan Uncertain at this time Consults DIE ATTACHING MACHINE TENDER, OT, PT, Nutrition Admission Status Admitted to medicine floor Jaswinder Newman 04/12/2019 11:24 MS3 I was present with the medical student for the history, exam, and medical decision making documented. I have edited the medical student note as appropriate. Katja Pierson MD 04/12/2019 20:38 ATTENDING ATTESTATION: Date of service: 04/12/2019 I was present with the medical student and resident for the history, exam, medical decision-making documented by him. I have personally performed my own physical exam and medical decision-making. I have verified and agree with (or as indicated, have edited in blue) the medical student's documentation. Shelly Guzman MD Internal Medicine Hospitalist Attending 04/12/2019 23:30 * Leticia Galdamez MD - 03/17/2019 0912 EDT MICU Admission H&P Admission Date: 03/17/2019 Date of Service: 03/17/2019 Hospital Day: LOS: 0 days PCP: Doctor Unknown CC: Rapid atrial fibrillation Subjective: HPI: Shirlene Bryan is a 64 y.o male with no past medical history and current sm[facility]. Per note from [facility], he presented on 03/15 after having 2 and half weeks of symptoms that started with fever and loss of appetite. The fever resolved after 1 week. He also reported weakness, fatigue,body aches, diarrhea, vomiting during that period. He had decreased food and fluid intake. The patient has not been seen by a doctor for about 10 years. On presentation to [facility] he was hemodynamically stable. Labs significant for Na: 134 K: 3.9 Cl: 95CO2: 17 Ca: 9 Cr: 5.75 BUN: 178 Lactic acid: 2.7 WBC: 18.01.Chest CT showed multiple areas of consolidation in both lungs. He was admitted for pneumonia and renal failure and treated with azithromycin and ceftriaxone. He was given a total of 6L of fluid. The patient went into rapid A. fib this morning and was intubated due to hemodynamic instability. He was put on a diltiazem drip and transferred to the MICU. Currently intubated and sedated Review of Systems Review of systems not obtained due to patient factors: Ventilated PMH PSH History reviewed. No pertinent past medical history. No past surgical history on file. Social History Family history Social History Tobacco Use ??? Smoking status: Current Every Day Smoker Packs/day: 1.50 Types: Cigarettes ??? Tobacco comment: Quit 2 weeks ago Substance Use Topics ??? Alcohol use: Yes Alcohol/week: 2.0 standard drinks Types: 2 Cans of beer per week Family History Problem Relation Age of Onset ??? Stroke Mother Cerebrovascular disease ??? Stroke Father Cerebrovascular disease Medications No medications prior to admission. Current Facility-Administered Medications: acetaminophen (TYLENOL) tablet 1,000 mg oral Q6H ascorbic acid (vitamin C) (VITAMIN C) 1,500 mg in sodium chloride (NS) 0.9 % 150 mL infusion high dose intravenous Q6H azithromycin (ZITHROMAX) 500 mg in dextrose 5% (D5W) 250 mL IVPB intravenous DAILY epoprostenol for inhalation (FLOLAN) 1500 mcg/50 ml solution inhalation CONTINUOUS fentaNYL citrate (PF) injection 50-100 mcg intravenous Q2H PRN furosemide (LASIX) 10 mg/mL injection hydroCORTisone sodium succinate (PF) (SOLU-CORTEF) injection 50 mg intravenous Q6H magnesium sulfate 2g in D5W 50 ml intravenous PRN melatonin tablet 5 mg oral QHS NORepinephrine (LEVOPHED) 8 mg in D5W 250 mL infusion intravenous CONTINUOUS piperacillin-tazobactam 4.5 g in sodium chloride (NS MBP) 100 mL IVPB intravenous Q8H polyethylene glycol 3350 (MIRALAX) packet 17 g oral Daily PRN potassium chloride in water infusion 20 mEq intravenous PRN propOFol (DIPRIVAN) 1000 mg in 100 mL infusion intravenous CONTINUOUS senna (SENOKOT) tablet 2 Tab oral BID PRN Or sennosides (SENOKOT) syrup 17.6 mg per ng tube BID PRN sodium bicarbonate 8.4 % injection sodium bicarbonate 8.4 % injection thiamine (VITAMIN B-1) 200 mg in sodium chloride (NS) 0.9 % 50 mL IVPB intravenous Q12H vasopressin (VASOSTRICT) 20 Units in dextrose 5% (D5W) 100 mL infusion intravenous CONTINUOUS Allergies No Known Allergies Objective: No intake/output data recorded. Blood pressure 122/81, temperature 36.5 ??C (97.7 ??F), resp. rate 24, height 181.6 cm (71.5), weight 70 kg (154 lb 6.4 oz), SpO2 94 %. Gen: Thin middle aged man on ventilator. Well nourished, No acute distress HEENT: JVD present. Normocephalic, atraumatic. Good dentition, MMM. Neck supple. Pulm: Vented CV: Regular rate and rhythm, no murmurs, rubs, or gallops Abd: Non-distended. Positive bowel sounds. Soft, non-tender. No HSM. No peritoneal signs : Park in place Ext: No lower extremity edema, good distal pulses, normal cap refill, no clubbing or cyanosis noted Skin: Normal coloration and turgor, no rashes. Neuro: Sedated ECG: Data Review: I have personally reviewed: Recent Labs 03/17/19917 WBC 26.92* HGB 14.2 HCT 40.1 MCV 92 PLT Unreportable due to presence of platelet clumps Recent Labs 03/17/19917 NA 137 K 4.5 CL 108 CO2 15* BUN 142* CREATININE 3.11* MG 2.6 PHOS 9.8* CALCIUM 6.4* CALCCA 7.8* Recent Labs 03/17/19917 PROTIME 15.2* INR 1.3* PTT 31 Recent Labs 03/17/1918 ALT 90* AST 146* ALKPHOS 109 TBIL 1.1 TP 4.7* LABALBU 2.2* Recent Labs 03/17/1916 PHISTAT 7.02* PCOISTAT 59* POISTAT 83 POCTCO2 17* BDART 16 Recent Labs 03/17/19 0918 LACTATE 1.6 Incorrect component name entered: POCTLACTATE Radiology Images: I have independently visualized images Portable Chest 1 View Result Date: 03/17/2019 PORTABLE CHEST 1 VIEW 03/17/2019 12:05 PM Impression: Severe bilateral airspace disease likely representing diffuse pneumonia. Assessment: Shirlene Bryan is a 64 year old male with no past medical history and current smoker who was transferred from [facility] on 03/17 with rapid atrial fibrillation and acute hypoxic respiratory failure in the setting of fluid overload due to overresuscitation. He was intubated and sedated, and started on pressors on the drive to [facility]. Now admitted for septic shock and acute hypoxic respiratoryfailure secondary to presumed pneumonia. 64M with h/o COPD (although not previously dx'ed some emphysema on CT scan) presenting in transfer with PNA complicated by AF w/ RVR, SIRISHA, volume overload, metabolic acidosis, hypocalcemia, ARDS. Plan: PULM: # Acute hypoxic respiratory failure ABG 7. on arrival. CXR with diffuse opacities, concern for ARDS. Does not have a know history of COPD (emphysema on CT), but current smoker. - Vent Settings: VC-AC, FiO2-80, Rate-26 VT-490 PEEP 12 - Lung protective ventilation 6cc/kg - Consider APRV or proning, but requiring multiple pressors - Antibiotics as below - Diurese as below - Steroids as below ARDSnet ventilation Inhaled epoprostanol For deterioration would consider proning and/or APRV. Currently hemodynamics very tenuous on multiple pressors which could make it difficult to tolerate these interventions (e.g. Paralysis for proning would necessitate additional sedation). FiO2 seems to be improving so will continue with conventional ventilation for now and monitor closely. CV: # Septic shock In the setting of pneumonia. S/p a line - Levophed and vasopressin - Wean levophed first given tachycardia - Hydrocortisone 50mg q6 hours Down to 5 mcg NE and 0.06 vaso Use vaso preferrentially given SIRISHA and AF w/ RVR On exam probably volume overloaded and warm - so vasoconstrictor (ie vaso) prob best Diuresis - target net negative 1-2 liters if possible but at very least should keep net even Will schedule 60 mg iv furosemide q6hr - follow I/O balance # Rapid A. Fib Diltiazem for rhythm control at outside hospital. Not currently anticoagulation. Ok for heart ratesin the 120s For AF w/ RVR would consider amiodarone not stable enough for Bbl or CCB currently RENAL: # Acute Renal Failure-Cr 3.11 In the setting of sepsis PNA most likely pre-renal due to decreased fluid intake and diarrhea. BUN 90 Patient with 6L fluid given at [facility], now with JVD and immobile IVC on respiration with U/S exam. - 1 dose of Lasix 70 mg given - Indapamide 5mg daily - Strict input and output - Xavier SIRISHA in context of critical illness Adequate response to furosemide challenge & good UOP - hopefully should recover Volume positive currently Scheduled furosemide as above hypocalcemia: Follow for now, hold calcium given hyperphosphatemia and risk of Ca/Phos precip Follow lytes # Metabolic acidosis Gap 14. Lactate 1.6. Renal failure (uremia) - S/p 3 amps bicarb - Repeat electrolytes Consider further bicarb amps if bicarbonate remains low and not developing hypernatremia # Hypocalcemia Came in with Ca of 6.4 (calculated Ca 7.8) - Ionized calcium HypoCa likely 2/2 sepsis and hyperphosphatemia as a consequence of SIRISHA Follow for now ID: #Sepsis 2/2 PNA Presented to [facility] with two and a half weeks of fever, weight loss, and diarrhea. Dx with left lower lobe pneumonia. Community acquired. Patient has a presumed history of COPD due to smoking status and emphysema seen on chest x- ray. Procal of 5.60. - Received 2 doses ceftriaxone - Continue azithromycin 500 mg (03/15-03/25) - Start Piperecillin-tazobactam for broader coverage - Get blood, sputum, MRSA, legionella, and strep cultures - Given vitamin C, thiamine, and hydrocortisone - Monitor fever and WBC curve - Follow procalcitonin ENDO: Hyperglycemia - [id number] POC G checks - SSI GI: - No active issues - Diet: NPO for now, hold off on tube feeds for now H/O: #Leukocytosis In the setting of pneumonia - Monitor CBC NEURO/PSYCH: - Olanzapine 10mg IV now to reduce propofol dose (given refractory shock) - Olanzapine 10mg BID oral afterwards - Fentanyl prn - Acetaminophen 1000mg [id number] scheduled LINES: - CVC - A line - Park PPX: - GI - PPI - DVT - 5000mg [id number] Code status: Full code Yasmine Agyepong 03/17/2019 11:49 MS IV, MICU AI Attending attestation statement: I saw and examined the patient with the resident and agree with the findings and plans as documented, and as amended in blue. Clinical Condition: Shirlene Bryan is a critically ill 64 y.o. male. Over the past 24 hours, therehas been a high probability of sudden, clinically significant or life threatening deterioration in the patient???s condition, which include the following diagnoses which I have managed: 1. Acute respiratory failure with hypoxia (HCC-CMS) 2. Atrial fibrillation with RVR ([facility]-CMS) Critical Care time was provided in the form of interventions to treat and prevent further life threatening deterioration of the patient???s condition including: Management of mechanical ventilation, and high complexity decision making regarding need for additional imaging studies and / or interventional radiology interventions and the need for critical procedures, such as: central line . My bedside involvement was required to monitor and direct the critical care that has been provided.Exclusive of procedures, my critical care time is 84 minutes. Leticia Galdamez MD Pulmonary & Critical Care Medicine 03/17/2019 documented in this encounter Procedure Notes * Jose Kohler, RN - 04/06/2019 1612 EDTAssociated Order(s): INSERT PICC LINE Central Catheter Insertion First Catheter This Session supervisor composing room: [place] [facility] [place]: Insertion Date: 04/06/19 Insertion Time: 1515 First Clinical Writer: Jose Kohler RN RN/MA Documenting Procedure: Manfred Sanchez Pre-procedure: Time Out / Final Moment Performed: Yes Hand Hygiene Immediately Prior To Procedure: Yes Site Disinfected-2% Chlorhex/70% Alcohol: Yes Procedure Site Completely Dry: Yes Entire Patient Draped in Sterile Fashion: Yes Intra-procedure: Sterile Gloves Used: Yes Cap, Mask, and Sterile Gown - Operators: Yes Sterile Field Maintained: Yes Cap and Mask Worn - All Personnel: Yes Post-procedure: Sterile Dressing Applied - Sterile Technique: Yes Dressing Dated And Timed: Yes Needle Passes: VA RN Makes 2 Or Fewer Needle Passes: 2 or fewer passes Physician Documentation Pre-Procedure: Procedure To Be Performed: New central line placement Indication: Other (Comment)(previous PICC malpostioned) Line Priority: Routine Tip Confirmation: 3CG Follow-Up X-ray: No Consent Obtained: Yes The patient and/or family have been provided education/training to minimize the risk of central line-associated bloodstream infections. Central Line Type: Central Catheter Type: PICC PICC Type: Solo PICC Central Line Details: Line Location: Left;Brachial Final Tip Location: (CAJ with 3CG) Line Lumens (#): Double Central Line Size: 5 Fr Line Coating: Non-antimicrobial coated Vessel Size: 4 mm Vein Depth (cm): 0.5 cm Line Trim Length: 49 cm Line External Length: 0 Line Securement Device: Statlock device Responsible Service / IR Details: Responsible Service: VA RN Lidocaine 1% - Route/Dose (cc's): 1;Intradermal Central Line Materials and Methods: Number of Attempts: 1 Number of Sites Attempted: 1 Number of Kits Used: 1 Location Device Used: 3CG;Ultrasound;Sherlock Central Line Operators: Number Of Operators: 1 First Clinical Writer's Name: Jose Kohler RN First Clinical Writer's Title: Vascular ems driver Unless otherwise noted, there were no complications, no blood loss and no cultures obtained. Jose Kohler RN 04/06/2019 16:12 * Lisa Daly, DONNA Martinez - 03/28/2019 1434 EDT Acute Care Surgery Bedside procedure note RE: high tracheal cuff pressures > 100 Procedure:Immediate upsize trach secondary to high tracheal cuff pressures. Pt is s/p OR open trach placement Upon return to MICU noted to have high trach cuff pressure to maintain minimal circuit leak. ACS attending notified and decision made to acutely upsize 6 shiley to #8 perc shiley. Medical ICU team attendings asked to be present with intubation box if any airway difficulty shouldbe encountered during the tracheostomy change BP 96/68 Temp (!) 35.3 ??C (95.5 ??F) (Tympanic) Resp 16 Ht 181.6 cm (71.5) Wt 71.4 kg (157 lb 8 oz) SpO2 98% BMI 21.66 kg/m?? Patient resting comfortably still with mild amount of sedation on board. Trach cuff quite taut on palpation. Mechanical breath sounds noted on exam Trach site clean and dry. Ventilator placed on 100% FiO2 All equipment checked for functionality. #8 Shiley cuff was checked for holes and none found. Trachties and sutures were removed, cuff was deflated Ventilator disconnected, wire with stylette placed in the #6 Shiley trach, it was removed with a minor amount of difficulty, the Blue Rhino dilator was placed over the stylette wire combination with 3 passage dilating the tracheotomy size of to the necessary measurement. Next #8 Perc Shiley was placed into the airway over the stylette wire combination without difficulty. Next the wire stylette was removed the inner cannula was placed and the cuff was inflated and the patient was placed back on the ventilator circuit. End-tidal was immediately noticed there was less than 10% air leak in the cuff was noted to be within green limits on the measurement device. There is no desaturations patient t olerated the procedure well without any hemodynamic changes or compromise. Medical ICU team was present and aware of the change. Tracheostomy airway sign was also modified. Dr. Marisol Castro was immediately present and participated in this procedure. DONNA Ross 03/28/2019 14:45 Cosigned by Marisol Castro MD at 03/28/2019 17:37 EDT Associated attestation - Marisol Castro MD - 03/28/2019 4417 EDT I was present for the entire procedure. Marisol Castro MD Acute Care Surgery Pager #[phone] 03/28/19 * Jose Kohler RN - 03/24/2019 1460 EDTAssociated Order(s): INSERT PICC LINE Central Catheter Insertion First Catheter This Session supervisor composing room: Patient Location: [facility] [place]/ Preliminary Data: Insertion Date: 03/24/19 Insertion Time: 1535 First Clinical Writer: Jose Kohler RN RN/MA Documenting Procedure: Luis Camp Pre-procedure: Time Out / Final Moment Performed: Yes Hand Hygiene Immediately Prior To Procedure: Yes Site Disinfected-2% Chlorhex/70% Alcohol: Yes Procedure Site Completely Dry: Yes Entire Patient Draped in Sterile Fashion: Yes Intra-procedure: Sterile Gloves Used: Yes Cap, Mask, and Sterile Gown - Operators: Yes Sterile Field Maintained: Yes Cap and Mask Worn - All Personnel: Yes Post-procedure: Sterile Dressing Applied - Sterile Technique: Yes Dressing Dated And Timed: Yes Needle Passes: VA RN Makes 2 Or Fewer Needle Passes: 2 or fewer passes Physician Documentation Pre-Procedure: Procedure To Be Performed: New central line placement Indication: New indication Line Priority: Routine Tip Confirmation: X-ray Consent Obtained: No(pt unable to consent) The patient and/or family have been provided education/training to minimize the risk of central line-associated bloodstream infections. Central Line Type: Central Catheter Type: PICC PICC Type: Solo PICC Central Line Details: Line Lumens (#): Triple Central Line Size: 5 Fr Line Coating: Non-antimicrobial coated Vessel Size: 5 mm Vein Depth (cm): 0.5 cm Line Trim Length: (35) Line External Length: Hub Line Securement Device: Statlock device Responsible Service / IR Details: Responsible Service: MIREYA RN Lidocaine 1% - Route/Dose (cc's): 1;Intradermal Central Line Materials and Methods: Number of Attempts: 1 Number of Sites Attempted: 1 Number of Kits Used: 1 Location Device Used: Ultrasound;Sherlock Central Line Operators: Number Of Operators: 1 First Clinical Writer's Name: Jose Kohler RN First Clinical Writer's Title: Vascular ems driver Unless otherwise noted, there were no complications, no blood loss and no cultures obtained. Jose Kohler RN 03/24/2019 16:59 * Trina Drake RN - 03/23/2019 0928 EDTAssociated Order(s): INSERT PICC LINE Central Catheter Insertion First Catheter This Session supervisor composing room: Patient Location: [facility] [place] Preliminary Data: Insertion Date: 03/23/19 Insertion Time: 0840 First Clinical Writer: Trina Drake RN RN/MA Documenting Procedure: Luis Camp Pre-procedure: Time Out / Final Moment Performed: Yes Hand Hygiene Immediately Prior To Procedure: Yes Site Disinfected-2% Chlorhex/70% Alcohol: Yes Procedure Site Completely Dry: Yes Entire Patient Draped in Sterile Fashion: Yes Intra-procedure: Sterile Gloves Used: Yes Cap, Mask, and Sterile Gown - Operators: Yes Sterile Field Maintained: Yes Cap and Mask Worn - All Personnel: Yes Post-procedure: Sterile Dressing Applied - Sterile Technique: Yes Dressing Dated And Timed: Yes Needle Passes: VA RN Makes 2 Or Fewer Needle Passes: 2 or fewer passes Physician Documentation Pre-Procedure: Procedure To Be Performed: New central line placement Indication: Poor peripheral access(limited access) Line Priority: Routine Tip Confirmation: 3CG Consent Obtained: Yes The patient and/or family have been provided education/training to minimize the risk of central line-associated bloodstream infections. Central Line Type: Central Catheter Type: PICC PICC Type: Solo PICC Central Line Details: Line Location: Right;Basilic Final Tip Location: (CAG with 3CG) Line Lumens (#): Triple Central Line Size: 5 Fr Line Coating: Non-antimicrobial coated Vessel Size: (0.33cm) Vein Depth (cm): (0.65cm) Line Trim Length: 42 cm Line External Length: Hub Line Securement Device: Statlock device Responsible Service / IR Details: Responsible Service: VA RN Lidocaine 1% - Route/Dose (cc's): Subcutaneous;1 Central Line Materials and Methods: Number of Attempts: 1 Number of Sites Attempted: 1 Location Device Used: Sherlock;Ultrasound;3CG Central Line Operators: Number Of Operators: 1 First Clinical Writer's Name: Trina Drake RN First Clinical Writer's Title: Vascular ems driver Unless otherwise noted, there were no complications, no blood loss and no cultures obtained. TRINA DRAKE RN 03/23/2019 9:28 * Kathy Yu MD - 03/17/2019 1450 EDTProcedure(s): INSERT ARTERIAL LINE Pre-Procedure Diagnose(s): Shock (HCC-CMS) Post-Procedure Diagnose(s): Shock (HCC-CMS) ADULT PROCEDURE NOTE Title of Procedure: Arterial Line Placement Date Performed: 03/17/2019 Time Performed: 11:00 hrs Performed by: Kathy De La Torre MD, performed this procedure with assistance from Dr. Leticia Galdamez. He was present during the entire course of the procedure. Indications and/or Provisional Diagnosis: Invasive hemodynamic monitoring Consent: The procedure was discussed with the patient???s surrogate after it had been completed given it was done emergently. The surrogate has been informed and understands the information and situation provided to them about the procedure. They have capacity and ability to weigh risks, goals and benefits as well as the alternatives of proposed treatments including the option of not undergoing the procedure The surrogate has expressed their rationale and executed the choice to proceed forward with the procedure with no undue influence or coercion. If the patient is DNR, a required reconsideration has been completed? N/A Type of Anesthesia/Sedation: Patient already sedated secondary to critical condition, Fentanyl and Propofol Fluids Given: See I&O Unless otherwise noted, there was no blood loss, specimens removed, cultures obtained, or drains retained. Time Out: A time-out was completed prior to procedure verifying correct patient, procedure, site, positioning, and special equipment if applicable. Procedure Technique/Description of Procedure: The patient was prepped and draped in the usual sterile fashion. An arterial line was introduced via the Seldinger technique into the left axilary artery after 3 attempts. Good blood return without significant extremity blanching was noted. Good arterial wave form was noted. Blood loss was minimal. Post Procedure Diagnosis and Findings: Same as Indications and/or Provisional Diagnosis Complications: None Kathy Yu MD 03/17/2019 14:51 Cosigned by Leticia Galdamez MD at 03/17/2019 15:11 EDT Associated attestation - Leticia Galdamez MD - 03/17/2019 1511 EDT Attending attestation: I was present during the entire procedure. I saw and examined the patient 03/17/2019. I agree with the findings and plan of care documented in the resident's/fellow's note. Leticia Galdamez MD 03/17/2019 15:10 * Kori Nguyen MD - 03/17/2019 1254 EDTProcedure(s): INSERT CENTRAL LINE Pre-Procedure Diagnose(s): Shock (HCC-CMS) Post-Procedure Diagnose(s): Shock (HCC-CMS) Central Catheter Insertion First Catheter This Session supervisor composing room: Patient Location: 05/01 Preliminary Data: Insertion Date: 03/17/19 Insertion Time: 1023 First Clinical Writer: Dr. Nguyen RN/MA Documenting Procedure: Meenakshi Moscoso RN Pre-procedure: Time Out / Final Moment Performed: Yes Hand Hygiene Immediately Prior To Procedure: Yes Site Disinfected-2% Chlorhex/70% Alcohol: Yes Procedure Site Completely Dry: Yes Intra-procedure: Sterile Gloves Used: Yes Cap, Mask, and Sterile Gown - Operators: Yes Sterile Field Maintained: Yes Cap and Mask Worn - All Personnel: Yes Post-procedure: Sterile Dressing Applied - Sterile Technique: Yes Dressing Dated And Timed: Yes Needle Passes: Resident/Fellow Makes 3 Passes or Less: Yes Physician Documentation Pre-Procedure: Procedure To Be Performed: New central line placement Indication: New indication Conditions Present: Other (Comment) Line Priority: Emergent Tip Confirmation: X-ray Follow-Up X-ray: Yes Consent Obtained: Emergency -Consent not obtained The patient and/or family have been provided education/training to minimize the risk of central line-associated bloodstream infections. Central Line Type: Central Catheter Type: Non-Tunneled Non-Tunneled Catheter: Standard Central Line Details: Line Location: Left;Internal Jugular Final Tip Location: Superior Vena Cava Line Lumens (#): Quad Central Line Size: 8.5 Fr Line Coating: Non-antimicrobial coated Line External Length: Hub Line Securement Device: Sutured Catheter Secured At (cm):: 18 Responsible Service / IR Details: Responsible Service: MICU Central Line Materials and Methods: Number of Attempts: 1 Number of Sites Attempted: 1 Number of Kits Used: 1 Location Device Used: Ultrasound Central Line Operators: Number Of Operators: 3 First Clinical Writer's Name: Kori Nguyen First Clinical Writer's Title: Resident Service Delivery Analyst's Name: Kathy Yu Service Delivery Analyst's Title: Fellow Third Clinical Writer's Name: Leticia Galdamez Third Clinical Writer's Title: Attending Unless otherwise noted, there were no complications, no blood loss and no cultures obtained. Kori Nguyen MD 03/17/2019 12:58 Cosigned by Leticia Galdamez MD at 03/17/2019 14:53 EDT Associated attestation - Leticia Galdamez MD - 03/17/2019 4478 EDT Attending attestation: I was present during the entire procedure. I saw and examined the patient 03/17/2019. I agree with the findings and plan of care documented in the resident's/fellow's note. Leticia Galdamez MD 03/17/2019 14:52 documented in this encounter Consult Notes * Eladio Otero MD - 04/20/2019 8218 EDT Physiatry Progress Note Admit Date: 03/17/2019 Hospital Day: LOS: 34 days Date of Service: 04/20/2019 Chief Complaint: Debility following acute respiratory failure Subjective: Since seen, patient is nasogastric tube and tracheostomy tube have been removed. He indicates his breathing is generally doing well. He does note some shortness of breath with therapy interventions, reporting that his breathing is a primary limiting factor. Current Facility-Administered Medications: acetaminophen (TYLENOL) solution unit dose cup 995 mg oral Q8H PRN albuterol (ACCUNEB) nebulizer solution 2.5 mg nebulization Q4H PRN alteplase (CATHFLO ACTIVASE) injection 2 mg intercatheter PRN ascorbic acid (vitamin C) (VITAMIN C) tablet 250 mg per g tube DAILY cholecalciferol (Vitamin D3) tablet 1,000 Units oral DAILY clonazePAM (KLONOPIN) tablet 0.5 mg oral BID PRN collagenase (SANTYL) ointment topical DAILY dextrose 50 % solution 12.5-25 g intravenous PRN enoxaparin (LOVENOX) injection 40 mg subcutaneous DAILY ferrous sulfate EC tablet 324 mg oral DAILY (BREAKFAST) guaiFENesin (MUCINEX) SR tablet 600 mg oral BID impact peptide 1.5 0.09 gram- 1.5 kcal/mL per ng tube CONTINUOUS ipratropium-albuterol (DUONEB) 0.5 mg-3 mg(2.5 mg base)/3 mL nebulizer solution 3 mL nebulization TID magnesium sulfate 2g in D5W 50 ml intravenous PRN melatonin tablet 5 mg oral QHS metoprolol (LOPRESSOR) tablet 12.5 mg oral BID Multivitamins with minerals + ferrous gluconate (CENTRUM) oral solution 15 mL feeding tube DAILY nicotine (NICODERM CQ) 7 mg/24 hr patch 1 Patch transdermal DAILY pantoprazole (PROTONIX) tablet 40 mg oral DAILY papain-alpha amylase-cellulase (CLOG ZAPPER) 2-5 mL feeding tube PRN potassium chloride in water infusion 20 mEq intravenous PRN potassium phosphate 3 mMol/mL oral solution 15 mmol oral Daily PRN senna (SENOKOT) tablet 2 Tab oral QHS Or sennosides (SENOKOT) syrup 17.6 mg per ng tube QHS sodium chloride 0.9 % (flush) flush 10 mL intercatheter WEEKLY Wool Alcoh-Min Ytn-Cqecr-Mpuap (EUCERIN) cream topical PRN zinc sulfate (ZINCATE) capsule 220 mg per g tube DAILY Objective/Physical Exam: VS: Patient Vitals for the past 8 hrs: BP Heart Rate Resp Temp SpO2 O2 Device 04/20/19 1500 -- 99 BPM 24 -- 94 % None 04/20/19 1448 121/74 -- 22 36.9 ??C (98.4 ??F) 91 % None 04/20/19 1135 -- 88 BPM 28 -- 98 % None 04/20/19 0920 131/87 -- 24 36.5 ??C (97.7 ??F) 100 % None Pain: Patient Vitals for the past 8 hrs: Numeric Pain Level (Scale 1-10) 04/20/19 1500 0 Weight: Weight : 55.4 kg (122 lb 2.2 oz) Glucose Readings (last 8 readings): No results for input(s): GLUCOSEFINGE in the last 72 hours. I&O: Intake/Output Summary (Last 24 hours) at 04/20/2019 1658 Last data filed at 04/20/2019 1600 Gross per 24 hour Intake 1806.25 ml Output 1075 ml Net 731.25 ml Exam: Gen: Alert, pleasant, no distress, cachectic appearing. HEENT: Head: Normocephalic, no lesions, without obvious abnormality. Neck midline tracheostomy site is open, tracheostomy tube removed Cardiac: Cor RRR Abdomen: soft, nontender Musculoskeletal: no joint tenderness, deformity or swelling, no muscular tenderness noted, full range of motion without pain Neuro: Alert, oriented, thought content appropriate Affect: appropriate Language: speech fluent and spontaneous, intact naming and repetition Motor: Grossly 4+/5 throughout without focal weakness Labs: I have personally reviewed CBC: Lab Results Component Value Date WBC 11.30 (H) 04/20/2019 RBC 2.78 (L) 04/20/2019 HGB 7.8 (L) 04/20/2019 HCT 24.9 (L) 04/20/2019 MCV 90 04/20/2019 MCH 28.1 04/20/2019 MCHC 31.3 (L) 04/20/2019 PLT 278 04/20/2019 NEUTROABS 8.90 (H) 03/20/2019 BMP: Lab Results Component Value Date NA 136 04/20/2019 K 4.3 04/20/2019 CL 104 04/20/2019 CO2 26 04/20/2019 BUN 66 (H) 03/24/2019 CREATININE 0.63 (L) 04/20/2019 GLUCOSEFINGE 126 (H) 04/07/2019 CALCIUM 8.6 04/20/2019 MG 1.8 04/20/2019 PHOS 3.8 04/20/2019 LABALBU 2.2 (L) 03/17/2019 Assessment/Problems: (update problem list daily as appropriate) Patient Active Problem List Diagnosis Date Noted ??? *(H)Acute respiratory failure with hypoxia ([facility]) 03/17/2019 Priority: Medium ??? (H)Upper gastrointestinal bleed 04/18/2019 Priority: Medium ??? (H)Septic shock ([facility]) 03/19/2019 Priority: Medium ??? (H)ARDS (adult respiratory distress syndrome) ([facility]) 03/19/2019 Priority: Medium ??? (H)SIRISHA (acute kidney injury) ([facility]) 03/19/2019 Priority: Medium ??? (H)Anemia 03/19/2019 Priority: Medium ??? (H)Thrombocytopenia ([facility]) 03/19/2019 Priority: Medium ??? (H)Bacteremia 03/19/2019 Priority: Medium ??? (H)Fever 03/19/2019 Priority: Medium ??? (H)Encephalopathy 03/19/2019 Priority: Medium ??? (H)Atrial fibrillation with RVR ([facility]) 03/17/2019 Priority: Medium Plan: 1. Debility: Secondary prolonged hospitalization and multiple medical comorbidities. Continue with PT, OT, and DIE ATTACHING MACHINE TENDER for mobility, self care, respiratory status and swallowing function. Certainly givenclinical changes over the last 48 hours, he appears to be tolerating these, and I believe is appropr iate for potential admission to acute rehabilitation. Provided he remained stable through the weekend, plan to have him admitted on 04/23/2019. 2. Sacral ulcer: Continue to encourage adequate nutrition, current pressure relief. 3. Pneumonia/MSSA bacteremia with acute hypoxic respiratory failure: He is requiring less supplemental oxygen with activity. Eladio Otero MD 04/20/2019 16:58 * Eladio Otero MD - 04/18/2019 1553 EDT Physical Medicine and Rehabilitation Consult Admit Date: 03/17/2019 Date of Service: 04/18/2019 PCP: Doctor Unknown Chief Complaint: Rehabilitation consultation requested by Dr. Maza in this patient with debility following prolonged hospitalization and respiratory failure. History is obtained from full chart review and the results are summarized below. HPI Patient is a 64-year-old male with no prior medical history although he had not seen a physician in some 10 years. He presented to [facility] on 03/17/2019 with approximately 2.5 weeks of fever, loss of appetite, weakness, fatigue and diarrhea. Work-up at [facility] revealed pneumonia/ARDS and renal failure, as well as atrial fibrillation with RVR. He was transferred to the on 03/17/2019 for acute hypoxic respiratory failure with ARDS, volume overload, COPD and hemodynamic instability. He had evidence of sepsis secondary to a left lower lobe pneumonia and MSSA bacteremia. On admission he was placed on Levophed [...] developed hypoxia again, and was transferred back [facility] medical intensive care unit. He again was stabilized and moved to the floors. Imaging today showed slight progression of multifocal regions of airspace disease in the lungs and small bilateral pleural effusions. He has required continue supplemental oxygen up to 5 L last night with oxygen desaturation down to 86%. He has been seen by all therapy modalities, been actively participating. He is receiving nocturnal tube feeds and is been recently advanced to dysphagia level 3 diet. Acute rehabilitation consultation requested to evaluate for potential admission to inpatient rehabilitation. [facility] Past Medical History: Diagnosis Date ??? ARDS (adult respiratory distress syndrome) ([facility]) Past Surgical History: Procedure Laterality Date ??? TRACHEOSTOMY Social History Family History Social History Tobacco Use ??? Smoking status: Current Every Day Smoker Packs/day: 1.50 Types: Cigarettes ??? Smokeless tobacco: Never Used ??? Tobacco comment: Quit 2 weeks ago Substance Use Topics ??? Alcohol use: Yes Alcohol/week: 2.0 standard drinks Types: 2 Cans of beer per week Lives alone in a two-story house. Her girlfriend lives across the [facility] and his girlfriend does not work. Family History Problem Relation Age of Onset ??? Stroke Mother Cerebrovascular disease ??? Stroke Father Cerebrovascular disease Medications No medications prior to admission. Allergies No Known Allergies Review of Systems: A ten point review of systems was performed. Pertinent positives are listed below, all others are negative: Objective/Physical Exam: VS: Patient Vitals for the past 8 hrs: BP Heart Rate Resp Temp SpO2 O2 Flow Rate (L/min) O2 Device 04/18/19 1408 116/76 -- 22 36.1 ??C (97 ??F) 91 % 4 l/min Nasal cannula 04/18/19 1151 -- 73 BPM 20 -- 94 % 4 l/min Nasal cannula 04/18/19 1100 -- -- -- -- 94 % 4 l/min Nasal cannula 04/18/19 1004 109/65 -- 22 35.9 ??C (96.6 ??F) 91 % 4 l/min Nasal cannula 04/18/19 0901 -- -- -- -- -- 3 l/min Nasal cannula 04/18/19 0811 -- 81 BPM 22 -- 94 % 3 l/min Nasal cannula Pain: Patient Vitals for the past 8 hrs: Numeric Pain Level (Scale 1-10) 04/18/19 1408 0 04/18/19 1021 0 Weight: Weight : 55.4 kg (122 lb 2.2 oz) BMI: Body mass index is 16.8 kg/m??. Glucose Readings (last 8 readings): No results for input(s): GLUCOSEFINGE in the last 72 hours. Exam: Gen: Alert, pleasant, no distress, cachectic appearing. HEENT: Head: Normocephalic, no lesions, without obvious abnormality. Head: Normal, normocephalic, atraumatic. Nasogastric tube in the nares. Neck midline tracheostomy tube which is capped Cardiac: Cor RRR Abdomen: soft, nontender Musculoskeletal: no joint tenderness, deformity or swelling, no muscular tenderness noted, full range of motion without pain Neuro: Alert, oriented, thought content appropriate Affect: appropriate Language: speech fluent and spontaneous, intact naming and repetition Motor: Grossly 4+/5 throughout without focal weakness Data Review: Labs: I have personally reviewed CBC: Lab Results Component Value Date WBC 11.97 (H) 04/18/2019 RBC 2.72 (L) 04/18/2019 HGB 7.8 (L) 04/18/2019 HCT 24.7 (L) 04/18/2019 MCV 91 04/18/2019 MCH 28.7 04/18/2019 MCHC 31.6 (L) 04/18/2019 PLT 263 04/18/2019 NEUTROABS 8.90 (H) 03/20/2019 BMP: Lab Results Component Value Date NA 136 04/18/2019 K 4.1 04/18/2019 CL 104 04/18/2019 CO2 27 04/18/2019 BUN 66 (H) 03/24/2019 CREATININE 0.66 04/18/2019 GLUCOSEFINGE 126 (H) 04/07/2019 CALCIUM 8.3 (L) 04/18/2019 MG 1.9 04/18/2019 PHOS 3.8 04/18/2019 LABALBU 2.2 (L) 03/17/2019 Other Studies: N/A Assessment/Problems: (update problem list daily as appropriate) Patient Active Problem List Diagnosis Date Noted ??? *(H)Acute respiratory failure with hypoxia ([facility]) 03/17/2019 Priority: Medium ??? (H)Upper gastrointestinal bleed 04/18/2019 Priority: Medium ??? (H)Septic shock ([facility]) 03/19/2019 Priority: Medium ??? (H)ARDS (adult respiratory distress syndrome) ([facility]) 03/19/2019 Priority: Medium ??? (H)SIRISHA (acute kidney injury) ([facility]) 03/19/2019 Priority: Medium ??? (H)Anemia 03/19/2019 Priority: Medium ??? (H)Thrombocytopenia ([facility]) 03/19/2019 Priority: Medium ??? (H)Bacteremia 03/19/2019 Priority: Medium ??? (H)Fever 03/19/2019 Priority: Medium ??? (H)Encephalopathy 03/19/2019 Priority: Medium ??? (H)Atrial fibrillation with RVR ([facility]) 03/17/2019 Priority: Medium Assessment/Plan: 1. Debility: Secondary prolonged hospitalization and multiple medical comorbidities. Continue please consultations with PT, OT, and DIE ATTACHING MACHINE TENDER to assess mobility, self care, respiratory status and swallowing function. Currently he is doing some short ambulation with a roller walker and minimum assist and cueing, but additionally supplemental oxygen 2. Nutrition: remains on supplemental tube feeds with his p.o. diet recently advanced to dysphagia level 3. 3. Pneumonia/MSSA bacteremia with acute hypoxic respiratory failure: Continues with tracheostomy tube in place. Please outline goals for tracheostomy to weaning. I will follow his rehabilitative concerns along with you as his nutrition, and respiratory issues stabilize. Eladio Otero MD 04/18/2019 15:53 * Dae Baldwin MD - 03/27/2019 1056 EDT Surgical Consultation Admit Date: 03/17/2019 Date of Service: 03/27/2019 Hospital day: LOS: 10 days Chief Complaint: Respiratory failure HPI: 64 y/o M with no known medical history presenting from [facility] on 03/17 with 2.5 weeks of fevers, loss of appetite, weakness, fatigue, diarrhea. He reportedly had not seen a physician in 10 years. Work-up there revealed pneumonia/ARDS and renal failure; his heart rhythm then went into a-fib RVR with and he was intubated due to his hemodynamic instability and transferred here. He has been intubated since admission here, 10 days ago. Despite medical management, he is till requiring FiO2 50% And PEEP 10 to maintain adequate ventilation. CT was performed yesterday to assess disease progression, and he continues to have dense multifocal consolidations within both lungs as well as more diffuse groundglass opacities in the setting of severe emphysema (great vessels away fromproximal trachea). ACS now consulted for possible tracheostomy tube placement. He continues to be sedated and unable to provide additional history. PMH PSH History reviewed. No pertinent past medical history. No past surgical history on file. Social History Family history Social History Tobacco Use ??? Smoking status: Current Every Day Smoker Packs/day: 1.50 Types: Cigarettes ??? Smokeless tobacco: Never Used ??? Tobacco comment: Quit 2 weeks ago Substance Use Topics ??? Alcohol use: Yes Alcohol/week: 2.0 standard drinks Types: 2 Cans of beer per week Family History Problem Relation Age of Onset ??? Stroke Mother Cerebrovascular disease ??? Stroke Father Cerebrovascular disease Medications No medications prior to admission. Allergies No Known Allergies Review of Systems: Review of systems not obtained due to patient factors: sedated Objective/Physical Exam: VS: Patient Vitals for the past 8 hrs: Heart Rate Resp Temp SpO2 O2 Device FIO2 % 03/27/19 1045 67 BPM 21 -- 97 % -- -- 03/27/19 0900 66 BPM 20 -- 99 % -- -- 03/27/19 0850 61 BPM 17 35.9 ??C (96.6 ??F) 99 % -- -- 03/27/19 0824 67 BPM 19 36.6 ??C (97.9 ??F) 100 % -- -- 03/27/19 0812 81 BPM 20 -- 98 % Intubated 50 % 03/27/19 0800 93 BPM 21 36.2 ??C (97.2 ??F) 97 % -- -- 03/27/19 0745 -- -- 36.6 ??C (97.9 ??F) -- -- -- 03/27/19 0730 69 BPM 18 36.3 ??C (97.3 ??F) 100 % -- 50 % 03/27/19 0700 62 BPM 21 (!) 35.5 ??C (95.9 ??F) 99 % -- -- 03/27/19 0600 61 BPM 19 -- 100 % -- -- 03/27/19 0500 67 BPM 25 -- 98 % -- -- 03/27/19 0435 -- -- -- -- Intubated 50 % 03/27/19 0400 63 BPM 21 35.6 ??C (96.1 ??F) 97 % -- -- 03/27/19 0300 80 BPM 18 -- 97 % -- -- Pain: No data found. Exam: General Appearance: Intubated Neuro: Sedated Neck: Slender, minimal subcutaneous tissue, trachea midline Lung: B/L breath sounds, rhonchorus Heart: S1, S2 normal Abdomen: Soft, mildly distended w/ fluid wave, non-tender Extremities: all extremities warm and well perfused Skin: Skin color, temperature, turgor normal. No rashes or lesions Labs: I have personally reviewed CBC: Lab Results Component Value Date WBC 4.55 03/27/2019 RBC 2.08 (L) 03/27/2019 HGB 6.6 (LL) 03/27/2019 HCT 19.8 (LL) 03/27/2019 MCV 95 03/27/2019 MCH 31.7 03/27/2019 MCHC 33.3 03/27/2019 PLT 150 03/27/2019 NEUTROABS 8.90 (H) 03/20/2019 BMP: Lab Results Component Value Date NA 141 03/27/2019 K 3.6 03/27/2019 CL 109 03/27/2019 CO2 24 03/27/2019 BUN 66 (H) 03/24/2019 CREATININE 1.39 (H) 03/27/2019 GLUCOSEFINGE 110 (H) 03/27/2019 CALCIUM 7.4 (L) 03/27/2019 MG 2.1 03/27/2019 PHOS 4.2 03/27/2019 LABALBU 2.2 (L) 03/17/2019 Result Date: 03/26/2019 CT ABDOMEN, PELVIS W/WO CONTRAST 03/26/2019 11:29 AM Impression: Study is limited due to timing of the contrast bolus and motion artifact in the upper abdomen. 1. A proximal loop of jejunum appears edematous and thickened, with the suggestion of hypoenhancement of the jejunal wall. Jejunal folds in this loop appear to maintain normal enhancement. Mesenteric edema and fluid is seen surrounding this loop. Clinical and laboratory value correlation is recommended. 2. Fecal material throughout the colon is isointense to the wall of the colon, which limits assessment of colonic wall thickness and enhancement. 3. No evidence of pneumatosis or portal venous gas. 4. Moderate to large volume ascites. 5. Marked gallbladder distention without radiopaque c holelithiasis or evidence of gallbladder wall thickening. 6. A 1.2 cm left adrenal nodule is indeterminate. In the absence of history of malignancy, this favors an adrenal adenoma. 7. Please refer todedicated CT chest for full detail of intrathoracic findings. Result Date: 03/26/2019 CT CHEST W CONTRAST 03/26/2019 11:29 AM Impression: 1. Findings a progressive multifocal pneumonia within both lungs, particularly within the left lower lobe, with a more diffuse pattern likely reflecting noncardiogenic edema and diffuse alveolar damage. This is superimposed upon severe emphysema. 2. Tubes and lines in position as described. 3. Small bilateral parapneumonic effusions. 4. Moderate aortic and great vessel atheroscleroticcalcification. 5. Mild subcutaneous edema. 6. Mucous right lower lobe airways in particular. Assessment 64 y/o M with no known medical history presenting from [facility] on 03/17 with pneumonia and ARDS, has been intubated since admission (10 days). CT showing persistent disease and unable to come down significantly on ventilator settings. ACS consulted for tracheostomy tube placement. Active Hospital Problems Diagnosis ??? Septic shock (H[facility]CMS) Priority: Medium ??? ARDS (adult respiratory distress syndrome) ([facility]CMS) Priority: Medium ??? SIRISHA (acute kidney injury) ([facility]CMS) Priority: Medium ??? Anemia Priority: Medium ??? Thrombocytopenia ([facility]) Priority: Medium ??? Bacteremia Priority: Medium ??? Fever Priority: Medium ??? Encephalopathy Priority: Medium ??? Atrial fibrillation with RVR ([facility]-CMS) Priority: Medium ??? Acute respiratory failure with hypoxia ([facility]-CMS) Priority: Medium Problems/Plan: -OR tracheostomy planned tomorrow AM, first case -Hold TF at midnight (not post-pyloric) -Booked, consented via partner Lawanda Baldwin MD 03/27/2019 10:57 ACS [id number] * Dae Baldwin MD - 03/26/2019 1645 EDT Surgical Consultation Admit Date: 03/17/2019 Date of Service: 03/26/2019 Hospital day: LOS: 9 days Chief Complaint: Portal venous gas seen on bedside U/S, mesenteric ischemia HPI: 64 y/o M with no known medical history presenting from [facility] on 03/17 with 2.5 weeks of fevers, loss of appetite, weakness, fatigue, diarrhea. He reportedly had not seen a physician in 10 years. Work-up there revealed pneumonia/ARDS and renal failure; his heart rhythm then went into a-fib RVR with and he was intubated given his hemodynamic instability. He developed GIB 03/20 which required transfusion; GI performed an EGD which showed clean-based stomach ulcers and a visible vessel in the duodenum which was clipped. Today, bedside U/S performed and some air bubbles were noted in the portal vein. A CT abdomen/pelvis was performed because of concern for an ischemic process causing bowel. He is currently stillintubated and sedated, but has not had any recent signs of abdominal pain or tenderness per reports. He has been requiring levophed over the last 2 days, currently running at 14 mcg/min (was as high as 30 overnight). Lactate this afternoon 0.8. PMH PSH History reviewed. No pertinent past medical history. No past surgical history on file. Social History Family history Social History Tobacco Use ??? Smoking status: Current Every Day Smoker Packs/day: 1.50 Types: Cigarettes ??? Smokeless tobacco: Never Used ??? Tobacco comment: Quit 2 weeks ago Substance Use Topics ??? Alcohol use: Yes Alcohol/week: 2.0 standard drinks Types: 2 Cans of beer per week Family History Problem Relation Age of Onset ??? Stroke Mother Cerebrovascular disease ??? Stroke Father Cerebrovascular disease Medications No medications prior to admission. Allergies No Known Allergies Review of Systems: Review of systems not obtained due to patient factors: Ventilated Last Meal: Objective/Physical Exam: VS: Patient Vitals for the past 8 hrs: Heart Rate Resp Temp SpO2 O2 Device FIO2 % 03/26/19 1606 66 BPM 20 -- 90 % Intubated -- 03/26/19 1600 64 BPM 18 -- 92 % -- -- 03/26/19 1552 -- -- 36 ??C (96.8 ??F) -- -- -- 03/26/19 1500 69 BPM 18 -- 94 % -- -- 03/26/19 1454 72 BPM 18 -- 94 % -- -- 03/26/19 1453 71 BPM 17 -- 94 % -- -- 03/26/19 1452 70 BPM 16 -- 94 % -- -- 03/26/19 1451 68 BPM 17 -- 94 % -- -- 03/26/19 1400 69 BPM 18 -- 95 % -- -- 03/26/19 1300 70 BPM 17 -- 96 % -- -- 03/26/19 1211 82 BPM 19 -- 96 % Intubated 50 % 03/26/19 1200 82 BPM 18 37.2 ??C (99 ??F) 96 % -- -- 03/26/19 1140 89 BPM 17 -- 95 % Intubated 50 % 03/26/19 1000 75 BPM 18 -- (!) 88 % -- -- 03/26/19 0935 74 BPM 17 -- 97 % -- -- 03/26/19 0913 76 BPM 14 -- 100 % -- -- 03/26/19 0900 75 BPM 16 -- 100 % -- -- Pain: No data found. Exam: General Appearance: intubated Lung: b/l breath sounds, transmitted ventilator sounds Heart: S1, S2 normal Abdomen: soft, mildly distended, +fluid wave, no discernible tenderness Extremities: all extremities warm and well perfused Skin: Skin color, temperature, turgor normal. No rashes or lesions Labs: I have personally reviewed CBC: Lab Results Component Value Date WBC 8.92 03/26/2019 RBC 2.32 (L) 03/26/2019 HGB 7.3 (L) 03/26/2019 HCT 22.4 (L) 03/26/2019 MCV 97 (H) 03/26/2019 MCH 31.5 03/26/2019 MCHC 32.6 (L) 03/26/2019 PLT 170 03/26/2019 NEUTROABS 8.90 (H) 03/20/2019 BMP: Lab Results Component Value Date NA 139 03/26/2019 K 3.7 03/26/2019 CL 104 03/26/2019 CO2 28 03/26/2019 BUN 66 (H) 03/24/2019 CREATININE 1.66 (H) 03/26/2019 GLUCOSEFINGE 163 (H) 03/26/2019 CALCIUM 7.6 (L) 03/26/2019 MG 1.9 03/26/2019 PHOS 4.5 03/26/2019 LABALBU 2.2 (L) 03/17/2019 ABGs: Lab Results Component Value Date PHISTAT 7.32 (L) 03/26/2019 PCOISTAT 52 (H) 03/26/2019 POISTAT 36 (L) 03/26/2019 POCTCO2 28 (H) 03/26/2019 BEART 0 03/26/2019 LFT: Lab Results Component Value Date TBIL 1.1 03/17/2019 ALKPHOS 109 03/17/2019 AST 146 (H) 03/17/2019 ALT 90 (H) 03/17/2019 Result Date: 03/26/2019 CT ABDOMEN, PELVIS W/WO CONTRAST 03/26/2019 11:29 AM Impression: Study is limited due to timing of the contrast bolus and motion artifact in the upper abdomen. 1. A proximal loop of jejunum appears edematous and thickened, with the suggestion of hypoenhancement of the jejunal wall. Jejunal folds in this loop appear to maintain normal enhancement. Mesenteric edema and fluid is seen surrounding this loop. Clinical and laboratory value correlation is recommended. 2. Fecal material throughout the colon is isointense to the wall of the colon, which limits assessment of colonic wall thickness and enhancement. 3. No evidence of pneumatosis or portal venous gas. 4. Moderate to large volume ascites. 5. Marked gallbladder distention without radiopaque c holelithiasis or evidence of gallbladder wall thickening. 6. A 1.2 cm left adrenal nodule is indeterminate. In the absence of history of malignancy, this favors an adrenal adenoma. 7. Please refer todedicated CT chest for full detail of intrathoracic findings. Result Date: 03/26/2019 CT CHEST W CONTRAST 03/26/2019 11:29 AM Impression: 1. Findings a progressive multifocal pneumonia within both lungs, particularly within the left lower lobe, with a more diffuse pattern likely reflecting noncardiogenic edema and diffuse alveolar damage. This is superimposed upon severe emphysema. 2. Tubes and lines in position as described. 3. Small bilateral parapneumonic effusions. 4. Moderate aortic and great vessel atheroscleroticcalcification. 5. Mild subcutaneous edema. 6. Mucous right lower lobe airways in particular. Assessment 64 y/o M with no known medical history presenting from [facility] on 03/17 with 2.5 weeks of fevers, loss of appetite, weakness, fatigue, diarrhea. He reportedly had not seen a physician in 10 years. Work-up there revealed pneumonia/ARDS and renal failure; his heart rhythm then went into a-fib RVR with and he was intubated given his hemodynamic instability. He developed GIB 03/20 which required transfusion; GI performed an EGD which showed clean-based stomach ulcers and a visible vessel in the duodenum which was clipped. Bedside U/S performed and some air bubbles were noted in the portal vein; CT abdomen/pelvis was performed because of concern for an ischemic process causing bowel, results shos some jejunal thickening, but study has significant motion artifact. He is currently still intubated and sedated, but no signs abdominal pain or tenderness; some distension, but ascites seen on CT. Lactate this afternoon 0.8, WBC 8.9. Still requiring levophed, but appearing to wean slowly. Active Hospital Problems Diagnosis ??? Septic shock ([facility]) Priority: Medium ??? ARDS (adult respiratory distress syndrome) ([facility]) Priority: Medium ??? SIRISHA (acute kidney injury) ([facility]) Priority: Medium ??? Anemia Priority: Medium ??? Thrombocytopenia ([facility]) Priority: Medium ??? Bacteremia Priority: Medium ??? Fever Priority: Medium ??? Encephalopathy Priority: Medium ??? Atrial fibrillation with RVR ([facility]) Priority: Medium ??? Acute respiratory failure with hypoxia ([facility]) Priority: Medium Problems/Plan: -Low suspicion of mesenteric ischemia -CT poor quality with motion artifact and significant ascites, no clear vascular etiology of focal jejunal thickening, no PV gas/pneumatosis, no discernible pain or tenderness, no bloody appearing stool, lactate 0.8, WBC 8.9 -Serial abdominal exams -Continue resuscitation, wean vasopressors as able -If continued concern of mesenteric ischemia consider CTA -Page if questions or concerns Dae Baldwin MD 03/26/2019 16:45 ACS [id number] * Jeyson Garcia MD - 03/21/2019 1314 EDT Gastroenterology & Hepatology Consult Note The Gastroenterology service was consulted to see Shirlene Bryan for hematemesis,BRBPR Requesting Physician: Leticia Galdamez MD HPI: 64 y.o.male past medical history significant for tobacco abuse who was admitted to the ICU as a transfer from [facility] where he presented with a two-week history of fevers associated with myalgias. He was found to be in A. fib RVR and iagnosed with pneumonia subsequently intubated for acute hypoxic respiratory failure. Patient was transferred to [facility] on pressors for higher level of care. He is currently managed in the MICU for septic shock, ARDS and volume overload. He was weaned off his pressors eventually and diuresed when overnight patient became tachypneic requiring initiation of heparin drip for concern for PE. Patient began to have bright red blood from his OG tube,rectal bleeding requiring pressor support. CBC showed a hemoglobin of 5 from normal on admission. He received 3units packed red blood cells and 1 unit of platelets. Today hemoglobin is stable at 9.6 on repeat. Patient still requiring 2 pressors maintaining MAPS above 70, intubated, sedated and does not followcommands. GI is consulted for EGD to evaluate source of GI bleed. Patient had approximately 1.3 L of gross blood from his rectal tube 2050 cc from OG tube. He has not had any since morning today and appears to be no evidence of ongoing bleed. He was febrile to T-max 101.9 the last 24 hours and tachycardic 100s. ROS: Full review of systems was negative except as detailed above. History reviewed. No pertinent past medical history. No past surgical history on file. Current Facility-Administered Medications: acetaminophen (TYLENOL) tablet 1,000 mg oral Q6H PRN amino acids-protein hydrolysate (PRO SOURCE NOCARB) packet 30 mL oral DAILY amiodarone in dextrose 360 mg/200 mL (1.8 mg/mL) infusion intravenous CONTINUOUS ascorbic acid (vitamin C) (VITAMIN C) tablet 500 mg oral DAILY calcium carbonate (TUMS) 200 mg calcium (500 mg) per chewable tablet tablet,chewable 1 Tab oral Q8H dextrose 5 % (D5W) infusion intravenous CONTINUOUS dextrose 50 % solution 12.5-25 g intravenous PRN fentanyl 50 mcg/ml (SUBLIMAZE) syringe, 30 ml intravenous CONTINUOUS fentaNYL citrate (PF) injection 50-100 mcg intravenous Q1H PRN hydroCORTisone sodium succinate (PF) (SOLU-CORTEF) injection 50 mg intravenous Q6H insulin regular (HUMULIN R, NOVOLIN R) 2 Units bolus infusion intravenous PRN insulin regular (NOVOLIN R) 100 Units in sodium chloride (NS) 0.9 % 100 mL infusion intravenous CONTINUOUS ketAMINE (KETALAR) 500mg in NaCl 0.9% 50ml syringe intravenous CONTINUOUS melatonin tablet 5 mg oral QHS midazolam (VERSED) 100 mg in D5W 100 ml intravenous CONTINUOUS nafcillin 2,000 mg in sodium chloride (NS MBP) 100 mL IVPB intravenous Q4H nicotine (NICODERM CQ) 7 mg/24 hr patch 1 Patch transdermal DAILY NORepinephrine (LEVOPHED) 8 mg in D5W 250 mL infusion intravenous CONTINUOUS OLANZapine (ZYPREXA) tablet 5 mg oral QHS pantoprazole (PROTONIX) injection 40 mg intravenous BID papain-alpha amylase-cellulase (CLOG ZAPPER) 2-5 mL feeding tube PRN perative 0.067-1.30 gram-kcal/mL per ng tube CONTINUOUS phenylephrine HCl in 0.9% NaCl (NEO_SYNEPHRINE) 20 mg/250 mL (80 mcg/mL) infusion solution intravenous CONTINUOUS senna (SENOKOT) tablet 2 Tab oral BID PRN Or sennosides (SENOKOT) syrup 17.6 mg per ng tube BID PRN sodium chloride 0.9 % (NS) infusion intravenous CONTINUOUS tranexamic acid (CYKLOKAPRON) 3,000 mg in sodium chloride (NS) 0.9 % 1,000 mL custom infusion intravenous CONTINUOUS vasopressin (VASOSTRICT) 20 Units in dextrose 5% (D5W) 100 mL infusion intravenous CONTINUOUS No medications prior to admission. No Known Allergies Social History Socioeconomic History ??? Marital status: Single Spouse name: Not on file ??? Number of children: Not on file ??? Years of education: Not on file ??? Highest education level: Not on file Occupational History ??? Not on file Social Needs ??? Financial resource strain: Not on file ??? Food insecurity: Worry: Not on file Inability: Not on file ??? Transportation needs: Medical: Not on file Non-medical: Not on file Tobacco Use ??? Smoking status: Current Every Day Smoker Packs/day: 1.50 Types: Cigarettes ??? Smokeless tobacco: Never Used ??? Tobacco comment: Quit 2 weeks ago Substance and Sexual Activity ??? Alcohol use: Yes Alcohol/week: 2.0 standard drinks Types: 2 Cans of beer per week ??? Drug use: Not on file ??? Sexual activity: Not on file Lifestyle ??? Physical activity: Days per week: Not on file Minutes per session: Not on file ??? Stress: Not on file Relationships ??? Social connections: Talks on phone: Not on file Gets together: Not on file Attends druze service: Not on file Active member of club or organization: Not on file Attends meetings of clubs or organizations: Not on file Relationship status: Not on file ??? Intimate partner violence: Fear of current or ex partner: Not on file Emotionally abused: Not on file Physically abused: Not on file Forced sexual activity: Not on file Other Topics Concern ??? Not on file Social History Narrative ??? Not on file Family History Problem Relation Age of Onset ??? Stroke Mother Cerebrovascular disease ??? Stroke Father Cerebrovascular disease PE: BP 119/74 Temp 37.4 ??C (99.4 ??F) (Esophageal) Resp 15 Ht 181.6 cm (71.5) Wt 70.4 kg (155lb 3.2 oz) SpO2 94% BMI 21.34 kg/m?? Gen: Thin male,intubated and sedated HEENT: Anicteric sclerae, MMM, bitemporal wasting CV: s1s2 no MRG Lungs: CTA bilaterally Neuro: Deferred Extrem: no ROSIE, luisito uex bruises Skin: No rash GI: non-distended; soft, non-tender, BS+ Rectal Exam: Rectal tube dark dry blood Laboratory: Labs reviewed, pertinent results are as follows: Recent Labs 03/21/19 0115 03/21/19 0443 03/21/19 1122 HGB 9.9* 9.6* 9.2* HCT 27.9* 27.7* 25.5* MCV 89 90 90 PLT 114* 102* 105* WBC 19.26* 16.39* 10.34 No results for input(s): TBIL, ALKPHOS, AST, ALT, LIPASE in the last 72 hours. Recent Labs 03/20/19 1734 03/21/19 0115 03/21/19 0443 03/21/19 1122 PROTIME 20.2* -- -- -- INR 1.7* -- -- -- PTT 109* 27 28 28 Recent Labs 03/19/19 0321 03/20/19 0430 03/21/19 0115 03/21/19 1122 CREATININE 3.49* -- 2.62* -- 2.21* -- -- BUN 153* -- -- -- -- -- -- NA 148* < > 153* < > 150* < > 151* K 3.1* < > 3.5 < > 5.4* < > 5.2* CL 109 < > 118* < > 117* < > 117* CO2 26 < > 26 < > 28 < > 29 < > = values in this interval not displayed. Imaging: reviewed Impression: 64 y.o. male with no known medical history other than ongoing tobacco use who was admitted as a transfer from [facility] for acute hypoxic respiratory failure secondary to pneumonia now with ARDS and septic shock requiring 2 pressors. Hospital course was complicated by GI bleed/hemorrhagic shock overnight after initiation of heparin for presumed PE. Patient is currently hemodynamically stable s/p 3 units packed red blood cells and 1 unit platelets. Only risk factors for GIB on his hospitalization is treatments with IV steroids, and sepsis but was also on stress prophylaxis with PPI. He underwent urgent EGD which showed multiple ounctate clean-based ulcers in the stomach and duodenum and one visible vessel in the duodenum s treated with Endo Clip X1. Biopsies were taken in the antrum and body of the stomach to rule out H pylori. Recommendations: Continue PPI Follow up biopsies and treat if positive for H pylori Cbc BID for today and daily if stable. Transfuse to goal >7 Follow up in AM Seen and examined with Dr. Jonathan COOPER MD Gastroenterology & Hepatology 03/21/2019 Attestation statement: I saw and examined the patient with the resident/fellow. I agree with the findings and plan of care documented in the resident's/fellow's note. UGI bleeding, EGD showing gastric ulcers and large duodenal ulceration with possible visible vessel. Treated with clip. IV PPI and avoid NSAIDs. Biopsies obtained for h pylori and will need to follow result. * Kathrine Dolan RD - 03/19/2019 1150 EDTAssociated Order(s): CONSULT NUTRITION Nutrition Initial Assessment: Reason for Assessment: Consult for enteral nutrition support Medical Summary: Shirlene Bryan is a 64 y.o. male admitted on 03/17/2019 with a history of COPD and current smoker who was transferred from [facility] on 03/17 for management of atrial fibrillation with RVR and pneumonia complicated by acute hypoxic respiratory failure. He required intubation, sedation, and wasstarted on pressors. Now admitted to the MICU for management of pneumonia complicated by septic shock, ARDS, metabolic acidosis, AF w/ RVR, SIRISHA, and volume overload. Now off pressors and euvolemic, however complicated by up trending fever. ?? Subjective: deferred as patient intubated, sedated Current Nutrition Orders: Diet: NPO Tube Feed: Replete @ 50mL/hr continuous Delegate Diet ordering to RD ?? Nutrition Focused Physical Findings: Cardiovascular-pulmonary: intubated Swallow Function: impaired Nerves and Cognition: sedated, does not follow commands Dentition: missing teeth Vital Signs: Mve 12 L/min; Tmax 38.8 ??C (101.8 ??F); VCO2 0.233 L/min Edema: none identified Digestive Systems: Last BM unknown; OGT in place/tube feed infusing Skin: deep tissue injury forming to coccyx ?? Anthropometrics: Height: 181.6 cm Admission Weight: 70 kg, BMI 21.2 kg/m?? Current Body Weight: 70.4 kg 03/19 ?? Pertinent Medications: Abx IV, 50 mg hydrocortisone IV every 6 hours, asprat, protonix, miralax, 200 mg thiamine IV every 12 hours, ketamine drip, NS @10 mL/hr, KCl IV x 1 Pertinent Labs: 03/19: BUN 153, Crea 3.5, Na 148, K+ 3.1, Mg 2.5, BG 180's, WBC wnl, Hgb 10.2, Hct 28.5 03/18: Phos 10.5 03/17: albumin 2.2, iod Ca 0.92, Phos 11.5, WBC 26.9, AST 146, HgbAlc 6% ?? Estimated Daily Nutrition Needs: 1,850-2,090 kcal (ANANT REE - PSU) 105 g Protein (1.5 g/kg) ?? Estimated Nutrition Intake: 990 kcal 03/18 with tube feed NPO/no tube feed 03/17?? Assessment: Tube feed running at Rx goal with good tolerance noted, however, current regime is underfeeding estimated macronutrient needs. SIRISHA with good urine output, hypokalemia, hyperphosphatemia. Noted to be euvolemic. Recommend change to a 1.3 kcal/mL tube feed formula and initiate Phos binder to manage SIRISHA. Goal tubef feed will meet SERVICE ASSOCIATE for vitamin/minerals, therefore, add'l MVM is not indicated. Suggest supplement with Vitamin C as a source of antioxidants with active tobacco use. Nutrition Risk Level: High (1) Medical Nutrition Therapy Plan and Recommendations: RD has order writing privileges and will modify the following orders: Enteral Nutrition - Continuous - Perative @ 64 mL/hr - Start at 40 mL/hr and increase by 10 mL every 2 hrs as tolerated to goal rate - Goal TF provides 1,996 calories, 102 g protein, and 1,213 mL water daily Re-check Weight Tuesday, Recommendations requiring MD orders: Order 1 tab CaCarb (TUMS) every 8 hours to bind Phos Order 500 mg Vitamin C daily D/C MVM Increase scheduled bowel meds to promote daily stool output Re-check lytes, Mg, Phos daily Adjust enteral free water as indicated ?? Kathrine Dolan RD, CD [place] 4 Dietitian Pager: [phone] * Trey Tolentino MD, - 03/19/2019 0958 EDT Infectious Disease Inpatient Consultation Patient: Shirlene Bryan : 1955 Date of Admission: 03/17/2019 Date of Consultation: 03/19/19 Requested by: Leticia Galdamez MD Reason for Consultation: assistance in management of pneumonia, persistent fever History of Present Illness: This is a 64 y.o. gentleman who was transferred to the [facility] ICU on 03/17/2019 from [facility] where he presented 03/15 w/ pneumonia and developed respiratory failure. Per chart review Mr. Bryan complained of fever and other constitutional symptoms since ~2 weeks upon initial presentation. At [facility] a CT showed multifocal pneumonia and he was started on empiric coverage for CAP. His course as [facility] was complicated by rapid Afib, hemodynamic instability and subsequent intubation. At [facility] he has been on pip/tazo. His leukocytosis seems to have resolved but he is persistently febrile. His pressors have been weaned off. He remains on the ventilator. Review of Systems: Limited by patient's mental status Past Medical History: reviewed. No known medical history/chronic conditions Medications: reviewed w/ [facility] inpatient pharmacy. Anti-microbials: - ceftriaxone 03/15-03/17 - azithro 03/15-current - pip/tazo 03/17-current Allergies: reviewed. No known drug allergies. Social History: reviewed in chart and w/ ICU staff. Little known. Lives in [place] [facility] w/ girlfriend. +tobacco Family History: Reviewed. Stroke. No known immunodeficiency Physical Examination: During my visit T 36.5, HR sinus 80's on the monitor, MAP ~80 per art line, FiO2 50% on the vent. General - sedated Eyes - anicteric, conjunctivae without erythema or petechiae ENT - ETT in place Neck - supple Cardiovascular - regular rhythm, no murmur Respiratory - scattered rhonchi on auscultation Abdomen - soft Extremities - no edema, few distal ?splinter hemorrhages L hand MSK - no joint effusion or erythema Skin - no rash Labs & Imaging: Reviewed. - 03/19/19: Lytes w/ hypernatremia and hypokalemia. Cr 3.5, rising from 3.1 on admission. WBC 8.4 (down from 26.9 on admission), Hgb 10.2, PLT 66 Imaging: reviewed. - 03/15/19 CXR w/ LLL consolidation - 03/16/19 renal U/S no hydronephrosis - 03/16/19 CT chest w/ multifocal pulmonary opacities - 03/17/19 CXR severe bilateral airspace disease, clear progression from 03/15 plain film Micro: reviewed. Discussed w/ [facility] Micro Lab. - 03/15/19 two sets of blood cultures, 1 aerobic bottle coagulase positive staph, further workup pending - 03/17/19 MRSA nasal PCR negative - 03/17/19 urinary Pneumococcal and Legionella antigens negative - 03/18/19 sputum w/ few poly's and no org's on gram stain, culture nml OP constance Impression: 1. Staph aureus bacteremia, critically ill - 1 blood culture at [facility] (so far) w/ [facility]. Initially presumed contaminant given 1 of 4 bottles at3 days, but it's coag positive staph according to my conversation w/ [facility]'s lab today. Susceptibility pending. 2. Multifocal PNA, likely Staph aureus given #1 3. Respiratory failure, ARDS, on mechanical ventilation. 4. Septic shock, now off pressors 5. SIRISHA, Cr rising Recommendations: 1. I'd add MRSA coverage pending susceptibilities. Reluctant to use vanco given worsening SIRISHA. Could do monotherapy w/ ceftaroline 300mg q8h and d/c pip/tazo + azithro 2. Follow up repeat blood cultures to ensure clearance 3. If repeat blood cultures are positive I would pursue echocardiography to rule out endocarditis Thank you for allowing us the privilege of participating in Mr. Bryan's care. Trey Tolentino MD Infectious Disease Attending * Viktoria Farr RN - 03/19/2019 0907 EDT Images from the original note were not included. 03/19: While on unit asked by bedside nurse to assess purple area on coccyx. Pt arrived on Tuesday morning from [facility] with a pink blanchable area on his coccyx. Thismorning he has a deep tissue injury that must likely started at the OSH or during the ride here. Deep tissue injury forming on his coccyx measuring 2cm x 2.5cm, purple tissue with blanchable erythema on the surrounding skin. Mepilex border dressing in place. Suggest to place pt on a Citadel bed. Recommend Mepilex sacral border to coccyx area. Change every 5-7 days or prn for saturation. Lift daily to assess area and place back down. Turn and reposition pt q2hrs Float heels off from mattress Viktoria Farr, Pressure Ulcer Prevention Nurse documented in this encounter OR Notes * OR Surgeon - Juan Omalley MD - 03/28/2019 1243 EDT PROCEDURE NOTE DATE OF SERVICE: 03/28/2019 PROCEDURE PERFORMED: Percutaneous dilational tracheostomy with bronchoscopy PRE-OPERATIVE DIAGNOSIS: Respiratory Failure POST-OPERATIVE DIAGNOSIS: same SURGEON: Marisol Castro MD FURNACE STOCK INSPECTOR(S): MD Noemi Choi [facility] COMPLICATIONS: None INDICATIONS: 64 y.o. male with ARDS and failure to wean the vent in the MICU due to pneumonia. Our service was asked to perform a tracheostomy. PROCEDURE: Patient placed on the operating room table in supine position. Surgical safety checklists were completed. After consents were obtained, the patient was placed on 100% FiO2 on a volume controlled ventilator. Appropriate sedation, analgesia, and neuromuscular blockade was administered. Theneck was extended with a rolled towel beneath the scapulae. Anesthesiology as available to advance the tube as necessary. The neck was prepped with Chloraprep and sterile draping was performed. A small vertical incision was then made in the midline and was centered on a point 2 fingerbreadths above the suprasternal notch. This was deepened to the trachea with blunt spreading with clamps and electrocautery. Once the trachea was felt, the endotracheal tube was advanced out of the trachea until the tip could be felt to pass above the operative site. The anesthesiologist re-inflated the balloon and held the tube in place. Bronchoscopy was performed by anesthesia to confirm placement of our needle. The trachea was then punctured with the large needle and air was easily aspirated. The wire was then passed into the trachea to the first silver line and the needle was removed. The punch dilator was then used to enlarge the tracheotomy puncture. The white introducer was then placed over the wire. Using the Blue Rhino dilator the opening was enlarged to a 32 Fr size. A small dilator was placed through the 6 Shiley tracheostomy tube to act as an obturator. This assembly was passed over the wire into the trachea without difficulty. The dilators and wire were removed and the tracheostomy was connected to the ventilator tubing. Tidal volume and end-tidal CO2 showed good air return. The trach was sutured in place with four 3-0 prolene sutures and a tracheostomy tie was placed. The patient tolerated the procedure well. Marisol Castro was present and scrubbed for the entirety of this procedure. Juan Omalley MD 03/28/2019 12:48 Cosigned by Marisol Castro MD at 03/28/2019 14:41 EDT Associated attestation - Marisol Castro MD - 03/28/2019 1441 EDT I was present and scrubbed for the entire procedure. Marisol Castro MD Acute Care Surgery Pager #[phone] 03/28/19 documented in this encounter Miscellaneous Notes * Daily Progress Note - Sheila Tapia - 04/23/2019 1311 EDT Nursing Discharge Note D: Patient noted with discharge orders to: Kalyani Laird via [facility]. A: Belongings collected and sent home with patient. Report provided to Kalyani Laird RN and [facility]. PICC line removed prior to discharge. R: Pt left via [facility] with belonings. Kalyani Laird RN verbalized understanding of report and denied further questions. SHEILA TAPIA RN 04/23/2019 13:33 * Plan of Care - Antione Olmos RN - 04/23/2019 0233 EDT Data: Pt is maintaining high 90s O2 sat on RA post-trach removal , c/o minimal pain, stage III on coccyx, pt able to reposition self, on citadel bed, Patient tolerating dysphasia diet. Action: mepilex sacral border to coccyx with wound dressing, clustered care to promote rest. Response: pt able to rest comfortably in between cares. Pt continues with citadel bed and self turns. Will continue to monitor. ANTIONE OLMOS RN 04/23/2019 2:33 * Plan of Care - Jewels Rosa RN - 04/22/2019 1320 EDT D: los 36 patient has been progressively ambulating with walker and assist of wheelchair A: encouraging progressive ambulating R: patient was able to ambulate about 20' in the hallway. * Plan of Care - Jewels Rosa RN - 04/21/2019 1313 EDT D: Patient tolerating dysphasia diet and self turns. Mepilex sacral border had brown discharge A: applied pharmaceutical ointment, replaced sacral border R: patient continues with citadel bed and self turns * Plan of Care - Domenica Lucero RN - 04/20/2019 1345 EDT Data: Pt is maintaining 94% O2 sat on RA post-trach removal yesterday, NG removed post last dose oftube feeding, tolerating PO intake (~50% with boost supplement), showered, and OOB Xl with assist. Action: Trach site dressing changed X2, wound assessed and changed by wound nurse (dressing CDI), PICC flushed and patent in both lumens, and O2 monitored. Response: Respiratory status maintained well, Pt repositioned self adequately, and reports no pain at this time. DOMENICA LUCERO RN 04/20/2019 13:45 * Plan of Care - Shanon Carlton RN - 04/20/2019 0572 EDT Problem: Daily Care Plan Goals Goal: Care Plan Documentation Outcome: Ongoing Flowsheets (Taken 04/20/2019 0015) Area of Focus: Respiratory Goal This Shift: O2 >92% Note: Data: Admitted s/p ARDS. Trach removed on days. Dressing in place, producing significant amount of mucous. Action: Dressing reinforced w/ tegaderm. O2 sat >92%. No signs of respiratory distress. Response: Will continue to monitor and assess respiratory status. SHANON CARLTON RN 04/20/2019 5:24 * Plan of Care - Domenica Lucero RN - 04/19/2019 1442 EDT Data: Pt admitted with acute respiratory failure with hypoxemia; complicated by pneumonia and bacteremia. Pt has NG for tube feed, trach for airway clearance, left arm PICC for IV access, and citadelmattress for skin integrity. Action: Encouraged/assisted with turning Q2, Citadel properly functioning, NG maintenance with tubefeeding, PICC care, wound care (dressing changed r/t saturation), monitored trach (removed by RT), and medication administration. Response: Pt states no pain at this time, stable respiratory status 92% RA, no new skin issues, andpt accepting of all care. DOMENICA LUCERO RN 04/19/2019 14:42 * Plan of Care - Day Vergara RN - 04/19/2019 0427 EDT Problem: Daily Care Plan Goals Goal: Care Plan Documentation Flowsheets (Taken 04/18/20192030) Area of Focus: Skin Integrity Goal This Shift: Reposition Q2hrs Note: Data: Assumed care at 1900, SpO2 88% on 5L NC at 0100, all other VSS, KO tube w/ TF @75, trach capped, poor PO intake, dysphagia 3 diet/thin liquids/calorie count, pressure injury present on buttocks, mepilex present and intact. Action: Medicated per SEP, repositioned PRN but pt able to shift weight in bed. Response: Pt tolerating TF, continues to have poor PO intake, SpO2 92% upon reassessment, will continue to monitor. DAY VERGARA RN 04/19/2019 4:12 * Plan of Care - Radha Garcia RN - 04/18/2019 1602 EDT Problem: Daily Care Plan Goals Goal: Care Plan Documentation Flowsheets (Taken 04/18/2019 1330) Area of Focus: Mobility Goal This Shift: reposition q2h Data: Pt with extended hospital stay. A&OX3, denies pain, denies nausea, tolerating dysphagia diet with thin liquids and cycled TF overnight. O2 Sats have remained in mid 90s on 4L O2NC. Trach remains capped. Pressure injury to coccyx being treated with daily application of Collagenase (Santyl)Ointment. Action: Administered scheduled meds (see eMAR). Repositioned q2h (see flowsheets). Q1h checks to assess needs. Monitored calorie counts. Response: Pt worked with PT this afternoon and was able to sit in the recliner for 1 hour afterwards. Pt ate all of breakfast and is working on lunch. Will continue to reposition q2h. Radha Garcia RN 04/18/2019 16:02 * Plan of Care - Lianne Mcgrath MS [facility]DIE ATTACHING MACHINE TENDER - 04/18/2019 0928 EDT Surgical Airway Weekly Rounds Note Date of Roundin04/18/2019 Shirlene Bryan is a 64 y.o. year old male Reason for admission:[id number] J18.9 Pneumonia, unspecified organism-J18.9[ICD-10-CM] Indication for Surgical Airway: Airway Clearance Mechanical Ventilation Date Surgical Airway performed:Date: 03/28/19 Procedure Type: Percutaneous Placed by: ACS Known Critical Airway issues: None reported Surgical Airway Hardware: Surgical Airway Bivona water cuff 7 mm Cuffed (Active) Site Assessment Drainage 04/18/2019 8:11 Site Care Cleaned;Dried;Protective barrier to skin 04/18/2019 8:11 Inner Cannula Care No inner cannula 04/18/2019 8:11 Ties Assessment Clean;Dry;Intact 04/18/2019 8:11 Safety Equipment At bedside;Spare Trach;Obturator;Bag Mask 04/18/2019 8:11 Number of days: 1 Surgical Airway $Airway Status: Secured;Capped (04/18/19 08) $Cuff Pressure (cmH2O), surgical: 0 mmHg (04/18/19810) Current Airway/Hardware Status: Tracheostomy capped. Deep suctioning is being performed every 4 hours or less frequently for large secretions that are thin. Oxygenation: Mechanical Ventilation 35% SpO2: [86 %-94 %] () QI Checklist: Airway Alert sign is posted at [facility]?:Yes Surgical Airway Emergency Kit is in room? Yes Tracheostomy/Laryngectomy Education Brochure/Binder is in room?: No Sticky Note with Surgical Airway Treatment team updated? No Patient is currently on: MICU FYI tab has Surgical Airway information updates? No Team Input/Updates: RT: Downsized to Bivona 7 and it is capped RN Science Intern: CCNA (ENT): DIE ATTACHING MACHINE TENDER: Rona Negron DIE ATTACHING MACHINE TENDER - Dysphagia 3 diet, thin liquids, tube feeds overnight, has high nutrition needs due to skin and wound healing, vocal quality impacted due to air escape around trach site since downsize RN: MD: DOREEN/SW: ASSESSMENT: Shirlene Bryan is a 64 y.o. year old male, status post/admitted with [id number] J18.9 Pneumonia, unspecified organism-J18.9[ICD-10-CM] Multidisciplinary team assessment(s) regarding Surgical Airway re: Plan of Care RECOMMENDATIONS/PLAN: Surgical Airway Team will continue to Round weekly at a minimum regarding this patient's Plan of Care Progress toward decannulation Lianne Mcgrath, MS CCC-DIE ATTACHING MACHINE TENDER Rona Negron, CCC-DIE ATTACHING MACHINE TENDER Samantha Hamilton, RT Adrienne Garcia RN 04/18/2019 * Plan of Care - Crys Kim RN - 04/18/2019 0352 EDT Data: Resumed care of pt at 1900. Turning self in bed with reminding. Desats into mid 80's without oxygen. RT up to suction. TF started. Flat affect Action: Care clustered, q1h checks, masimo on, and call grayson within reach. Response: Sleeping between care. VSS. Will continue to monitor. Crys Kim RN 04/18/2019 4:06 * Plan of Care - Dorinda Mitchell RN - 04/17/2019 1534 EDT Data: Pt A&O x3, ambulating one assist with front wheeled walker in room , rating pain 0/10, nocomplaints of nausea, VSS, voiding, on dysphasia diet. Action: Assess and medicate for pain and nausea, encourage pt to turn Q2 hours, offer assistance asneeded, call light with in reach, bed in lowest position. Response: Will continue to monitor. * Plan of Care - Shelly Leroy RN - 04/17/2019 0319 EDT Problem: Daily Care Plan Goals Goal: Care Plan Documentation Outcome: Ongoing Flowsheets (Taken 04/16/2019 191) Area of Focus: Respiratory Goal This Shift: Monitor for acute resp changes Note: Data: Trach remains capped. Coarse crackles auscultated. Pt producing strong cough and suctioning secretions with Yankauer. Satting above 90 % on 5 L O2 via NC. Action: RT following. TF administered via Jasson. Encouraged sleeping with HOB at >30. Turning selfindependently every hour. Masimo remains on. Tele remains on. Response: Sleeping. No acute changes overnight Shelly Leroy RN 04/17/2019 3:15 * Plan of Care - Day Mathias RN - 04/15/2019 1718 EDT Problem: Daily Care Plan Goals Goal: Care Plan Documentation Flowsheets (Taken 04/15/2019 0725) Area of Focus: Respiratory Goal This Shift: Pt will maintain sats Note: Data: Pt continues to require O2 through trach collar but is tolerating well and requiring less frequent suctioning today. Pt denies pain or nausea and is sitting upright in chair. Action: Pt kept on continuous pulse and trach collar maintained. Administered scheduled meds and TF(see MAR). Response: Pt appears to be resting comfortably at this time. O2 remain >95% at this time. Will continue to monitor and assess. DAY MATHIAS RN 04/15/2019 17:11 * Plan of Care - Viktoria Castro RN - 04/15/2019 0626 EDT Problem: Daily Care Plan Goals Goal: Care Plan Documentation Outcome: Ongoing Flowsheets (Taken 04/15/2019 0041) Area of Focus: Respiratory Goal This Shift: pt will maintain patent airway Note: RESPIRATORY FUNCTION Data: Pt continues with 50% humidified trac with speaking valve. Calm, using oral suction independently. RR 18-20 diminished, coarse rales to auscultation. Coughs to clear well. Secretions suctioned via trac by RT and once by RN overnight. Tolerating dysphagia 2 diet with nectar thick liquids. Respiratory working with pt every 4 hours. Action: encourage use of IS, collaborate with RT, monitor and maintain O2 sat levels, administer meds if indicated Response: Moderate effort with IS, RT recommends continue current plan, try to limit foods that cause copious secretions. Monitor * Plan of Care - Day Mathias RN - 04/14/2019 1844 EDT Problem: Daily Care Plan Goals Goal: Care Plan Documentation Flowsheets (Taken 04/14/2019 1551) Area of Focus: Respiratory Goal This Shift: Monitor respiratory status Note: Data: Pt arrived from MICU to today admitted for ARDS r/t pneumonia and bacteremia. Pt with tracheostomy in place due to difficulty weaning from sedation. Continues to have thick secretions, requiring frequent suctioning and trach collar for O2. Action: Monitored pt with continuous pulse ox and encouraged pt to cough frequently. Yankeur at thebedside for pts oral secretions and respiratory up for suction. Response: Pt appears to be resting in bed comfortably at this time. Respiratory continues to followpts needs. Will continue to monitor and assess. DAY MATHIAS RN 04/14/2019 18:31 * Plan of Care - Cinthia Helms RN - 04/14/2019 0605 EDT Problem: Daily Care Plan Goals Goal: Care Plan Documentation Outcome: Met This Shift Note: Data: Assumed care of the pt at 1900. In bed in trach collar in no distress. Action: Pt maintained oxygen on trach collar, strong cough and able to suction mouth. TF infusing, labs drawn, Q4 vitals completed. Attempted nectar thick orange juice and dislikes the consistency. Encouraged pt to keep trying PO intake as it takes time to adjust to new diet consistency. Response: Pt comfortable on trach collar, no pain. Call grayson in reach and will continue to monitor. CINTHIA HELMS RN 04/14/2019 6:00 * Plan of Care - Christopher Zimmerman RN - 04/13/2019 0922 EDT Pt is a 64 y.o. Male admitted on 03/17 with PNA and septic shock, hospital course complicated by failed vent wean, pt now has a tracheostomy. Data: Vehicle Modification Technician assumed care for pt at 0700. On initial assessment, pt drowsy, oriented x3, neuro intact, VSS, afebrile, HR 80's, NSR with frequent PACs, normotensive, spO2 mid-90's on high flow at 50%/55L, pt denies dyspnea, RR normal, breathing non-labored, large amount of thin secretions, strong cough, TF at goal rate of 45mL/hr, pressure ulcer on coccyx (unstageable, covered in mepilex), voids in urinal, good output LDAs: PICC L arm, trach Gtts: None Action: 0900: Wound RN at bedside, coccyx wound assessed with bid writer, wound care recommends topicalSanyl to help with debridement 1500: Pt tolerating soft foods Response: Respiratory status remains stable, denies dyspnea with activity, continues to have a large amount of secretions, expectorates well with strong cough, plan to continue O2 wean, and encourageactivity as tolerated CHRISTOPHER ZIMMERMAN RN 04/13/2019 9:22 * Plan of Care - Cinthia Helms RN - 04/13/2019 0552 EDT Data: Transfer from after a rapid response call for hypoxia. Pt arrived on venti mask at 50% andin no distress. Action: Placed on HF via trach collar. Pt reports no pain or SOB. Response: VSS, repositioning self in bed and call grayson in reach. Will continue to monitor respiratory status. CINTHIA HELMS RN 04/13/2019 5:52 * Plan of Care - Carlitos Lu RN - 04/13/2019 0323 EDT Problem: Daily Care Plan Goals Goal: Care Plan Documentation Flowsheets (Taken 04/12/20191945) Area of Focus: Respiratory Goal This Shift: SpO2 will remain above 90% Note: Data: Pt transferred from MICU 04/12/19. Pt de-satting to mid 80s with 40% FiO2. No c/o pain, SOB or CP per patient. Tolerating NG tube feed. BP 124/66, HR 68, RR 20, temp 98.1F, 87% on 50% FiO2. Action: Administered scheduled meds, RT by bedside- trach suctioned multiple times, FiO2 increased to 50% PRN neb treatment given by RT with minimal improvement on oxygenation. MD Jeyson Lim called to bedside. ABG obtained by RT at bedside per order: PO2 49, pCO2 32. MD brown, rapid response team called at bedside. Response: pt off the floor, trasnferred to MICU. Report given. Calritos Lu RN 04/13/2019 2:50 * Transfer Summary (Intrafacility) - Flex Flores MD - 04/13/2019 0234 EDT MICU Attending Admitting H+P Date of Service: 04/13/2019 Chief Complaint: Shirlene Bryan is a 64 y.o. male admitted critically ill to the MICU for acute on chronic hypoxic respiratory failure. LOS: 27 days . Hospital Course: Shirlene Bryan is a 64 y.o male with no past medical history??(no PCP and does not see a doctor regularly) and current smoker??who presented to [facility] via [facility] for management of suspected pneumonia secondary to sepsis complicated by AF with RVR. Course furthermore complicated by ARDS requiring prolonged intubation. [facility] course complicated by acute GI bleed andhyperactive delirium. Given prolonged intubation underwent tracheostomy on 03/28/2019 with subsequent gradual weaning of ventilatory requirements. Given prolonged trach collar weaning deemed medicallystable for transfer to the general medicine service on 04/12/2019 for further management. Unfortunately in the early mornings of 04/13/2019 patient developed increasing supplemental oxygen requirements refractory to aggressive suctioning prompting transfer to the medical ICU for further management. Subjective: On examination, speaking valve not in place, but patient able to communicate answering simple questions. Denies fever or chills. Denies difficulties with breathing or chest pain. Noted joseph febrile prior to transfer from the MICU on 04/12/19. PMH PSH Past Medical History: Diagnosis Date ??? ARDS (adult respiratory distress syndrome) ([facility] Past Surgical History: Procedure Laterality Date ??? TRACHEOSTOMY Social History Family History Social History Tobacco Use ??? Smoking status: Current Every Day Smoker Packs/day: 1.50 Types: Cigarettes ??? Smokeless tobacco: Never Used ??? Tobacco comment: Quit 2 weeks ago Substance Use Topics ??? Alcohol use: Yes Alcohol/week: 2.0 standard drinks Types: 2 Cans of beer per week Family History Problem Relation Age of Onset ??? Stroke Mother Cerebrovascular disease ??? Stroke Father Cerebrovascular disease Medications No medications prior to admission. Allergies No Known Allergies Review Of Systems: Pertinent items are noted in HPI Physical Examination: Vital Signs: Patient Vitals for the past 8 hrs: BP Pulse Heart Rate Resp Temp SpO2 O2 Flow Rate (L/min) O2 Device FIO2 % 04/13/19 0200 -- -- -- -- -- -- 12 l/min Trach collar 50 % 04/13/19 0143 124/66 68 68 BPM 20 36.7 ??C (98.1 ??F) (!) 87 % 12 l/min Trach collar 50 % 10/11/19 0043 -- -- 84 BPM 20 -- 90 % 12 l/min Trach collar 50 % 04/12/192124 -- -- 108 BPM 20 -- 94 % 10 l/min Trach collar 40 % 04/12/192117 126/67 -- 89 BPM 22 37.8 ??C (100 ??F) 90 % -- Trach collar -- 04/12/191899 -- -- -- 24 38.1 ??C (100.6 ??F) 94 % 10 l/min -- 40 % General: Chronically ill appearing gentleman, resting in bed, no acute distress HEENT: Tracheostomy without surrounding erythema CV: Regular rate and rhythm without appreciation of murmur Respiratory: Clear to auscultation bilaterally without increased work of breathing Abdomen: Thin : No Park Extremities: No peripheral edema Neuro: Alert, oriented, moving extremities spontaneously Skin: No rashes on exposed skin Labs: Results for orders placed or performed during the hospital encounter of 03/17/19 (from the past 24 hour(s)) CALCIUM Collection Time: 04/12/19 4:48 Result Value Ref Range Calcium 8.3 (L) 8.5 - 10.5 mg/dl Calculated Calcium 9.6 8.5 - 10.5 mg/dl COMPLETE BLOOD COUNT Collection Time: 04/12/19 4:48 Result Value Ref Range WBC 8.73 4.0 - 10.4 K/cmm RBC 2.76 (L) 4.36 - 5.78 M/cmm Hemoglobin 8.1 (L) 13.8 - 17.3 gm/dl HCT 25.1 (L) 39.5 - 50.2 % MCV 91 81 - 95 fl MCH 29.3 27.6 - 33.0 pg MCHC 32.3 (L) 32.8 - 36.4 gm/dl RDW-CV 16.3 (H) <14.2 % RDW-SD 53.0 (H) <46.0 fl PLT 433 (H) 141 - 377 K/cmm MPV 10.8 9.5 - 12.7 fl CREATININE Collection Time: 04/12/19 4:48 Result Value Ref Range Creatinine 0.70 0.66 - 1.25 mg/dl GFR, Calculated 99 >60 ml/min/1.73m2 ELECTROLYTES Collection Time: 04/12/19 4:48 Result Value Ref Range Sodium 137 136 - 145 mEq/L Potassium 4.2 3.5 - 5.0 mEq/L Chloride 104 96 - 110 mEq/L CO2 26 22 - 32 mEq/L MAGNESIUM Collection Time: 04/12/19 4:48 Result Value Ref Range Magnesium 2.0 1.7 - 2.8 mg/dl PHOSPHORUS Collection Time: 04/12/19 4:48 Result Value Ref Range Phosphorus 3.9 2.5 - 4.5 mg/dl BLOOD GAS, G3 ISTAT Collection Time: 04/13/19 2:00 Result Value Ref Range pH, i-STAT 7.47 (H) 7.35 - 7.45 pCO2, i-STAT 32 (L) 35 - 45 mmHg pO2, i-STAT 49 (L) 80 - 105 mmHg TCO2, i-STAT 24 23 - 27 mEq/L O2 Saturation 87 (L) 95 - 98 % Base Excess, i-STAT 0 Sample Type ARTERIAL Tech ID [id number] HOLD GREEN TOP Collection Time: 04/13/19 2:24 Result Value Ref Range Hold Green Top Hold for further testing. Specimen will be held for 5 days. HOLD LAVENDER TOP Collection Time: 04/13/19 2:24 Result Value Ref Range Hold Purple Top EDTA for hematology will be discarded after 48 hours, differential not available after 12 hours. HOLD SST Collection Time: 04/13/19 2:24 Result Value Ref Range Hold SST Hold for further testing. Specimen will be held for 5 days. Assessment/Problems/Plans: Shirlene Bryan is a 64-year-old gentleman with past medical history significant for COPD not on supplemental oxygen who was admitted as a direct transfer to the medical ICU on 03/17/2019 with septic shock complicated by ARDS secondary to presumed pneumonia. Complicated course with acute GI bleeding, hyperactive delirium, and prolonged ventilatory wean precipitating tracheostomy placement. Given improvement in ventilatory requirements with prolonged trach collar trial patient transferred to the general medicine service on 04/12/2019 for further management. Unfortunately on the stripper color of 04/13/2019 increasing supplemental oxygen requirements prompted transfer back to the medical ICU. Suspect decompensation likely secondary to fatigue with inability to manage sputum versus recurrentpneumonia given fever. CXR without clear consolidation; actually appears improved. Respiratory: Originally presented on 03/17/2019 with acute hypoxic respiratory failure in the setting of pneumonia complicated by ARDS. Status post tracheostomy on 03/28/2019 with gradual ventilatory wean. Now readmitted on 04/13/2019 with increasing supplemental oxygen requirements pending transfer b ack to the medical ICU; differential includes fatigue with inability to manage sputum versus recurrent pneumonia given fever. - RT consulted; appreciate increased needs - Duonebs every 4 hours with PRN available - Hold steroids; no wheezing to suggest COPD exacerbation - CXR without clear consolidation; actually appears improved - Airway clearance Cardiovascular: Paroxysmal AF now in NS. AF in the setting of acute illness. No anticoagulation given acute GI bleeding. - Telemetry - No AV astrid angelina given NSR Renal: No acute concerns. - Daily electrolytes with creatinine Intake/Output Summary (Last 24 hours) at 04/13/2019 0248 Last data filed at 04/13/2019 0143 Gross per 24 hour Intake 1533.75 ml Output 1055 ml Net 478.75 ml Infectious Disease: Febrile with increasing supplemental oxygen requirements concerning for recurrent pulmonary infectious process; known chronic aspiration. - Blood culture from 04/12/19 pending - CXR - Hold antibiotics Hematologic: Chronic normocytic anemia in the setting of prolonged hospitalization requiring intermittent transfusion likely secondary to chronic disease and frequent phlebotomy. - Daily CBC Endocrine: No acute concerns. Hemoglobin A1c on admission 6.0% - CTM Neuro/Psychiatric: Hospital course complicated by hyperactive delirium; now resolved. Started on BZD for anxiety associated with prolonged hospitalization and to improve compliance with ventilation. - Continue BID clonazepam GI/Nutrition: Hospital course complicated by acute GI bleed; since resolved on 03/20/2019. Without further evidence of bleeding stable on PPI twice daily with plan to transition to daily on 04/19/2019. EGD demonstrated diffuse ulceration of the stomach and duodenum. - Tube feeds per NG; ongoing discussions regarding PEG placement GI & DVT Prophylaxis: - Enoxaparin 40 mg daily - PPI BID Lines/Tubes/Invasive: - PIV Consultants: RT Social: Family to be updated in the morning Prognosis/Disposition: Guarded Flex Flores MD 04/13/2019 2:48 Cosigned by Sirisha Lawson MD at 04/13/2019 19:50 EDT Associated attestation - Sirisha Lawson MD - 04/13/2019 1950 EDT ATTENDING ATTESTATION I have discussed the case with the resident/fellow. I have personally performed a history, physicalexam, and my own medical decision making. I have reviewed the note and agree with the findings and plan with the following additions :Pt is a 64 y.o. M with prolonged ICU stay and trach now with bounce back to ICU after brief stay with hospital medicine with concern for mucous plugging, resolved howie or to my evaluation . Pt now returned to baseline. Upon my evaluation, this patient had a high probability of imminent or life- threatening deterioration due to decreased cough, mucous plugging and hypoxia which required my direct attention, intervention, and personal management. I have personally provided 30 minutes of critical care time exclusive of time spent on separately billable procedures. Time includes review of laboratory data, radiology results, discussion with consultants, and monitoring for potential decompensation. Interventions were performed as documented below. Sirisha Lawson MD Critical Care Medicine 04/13/2019 * Plan of Care - Thomas Woody RN - 04/12/2019 195 EDT Data: Pt alert and oriented x3, able to make need to known. Transfer on unit from MICU, Current on trach collor, FIO2 40%, cough up large amount, white, thick sputum, independent with oral suction. Hx of pressure ulcer, afebrile, tachycardiac HR remain 95-130, baseline hand tremors. Action: MD notified, encourage turn and reposition 2 hours, Nutren 1.5 administered via NG tube 45ml/hr. Response: Blood culture draw via PICC line, tolerate will with current tube feed rate, no respiratory distress, SpO2 remain 92% above on current setting. Thomas Woody RN 04/12/2019 19:57 * Plan of Care - Day Christianson RN - 04/12/2019 0515 EDT Problem: Daily Care Plan Goals Goal: Care Plan Documentation Outcome: Ongoing Flowsheets (Taken 04/11/20191999) Area of Focus: Respiratory Goal This Shift: Maintain Oxygenation via Trach collar Note: Data: Assumed care of patient @ 1900. A&Ox3. Vitals stable. Oxygen in place via trach collar. Denying pain or shortness of breath. Providing self-suctioning with yankauer for small amount of thick secretions. Urinating independently into urinal. Neuro checks WNL. Sacral Mepilex in place over sacral deep tissue injury. Wound with white/yellow sloughing present. Left upper arm II PICC WNL. Action: Repositioning assistance provided. Oxygen maintained via trach collar. Labs drawn from PICCline by RN. Sacral mepilex border removed & replaced. NG tube patency maintained w/ tube feed infusing @ 42mL/hr. 0430: Speaking valve replaced by Respiratory Therapy. Response: Patient more agreeable & tolerating turns this shift. Demonstrating clear speaking with valve in place. Continuing to deny pain or shortness of breath & self-suctioning less frequently with yankauer. Will continue to monitor & notify team & pond worker of changes or concerns. DAY CHRISTIANSON RN 04/12/2019 4:57 0630: MICMiladys MD @ bedside to discuss plan of care going forward. Vent support removed & oxygen inplace via humidified air @ 40% via Trach collar. * Plan of Care - Denisse Cox RN - 04/11/2019 1359 EDT Data: Patient is alert and oriented. VSS. No pain. Patient on 50% trach collar with speaking valve in morning. Lungs show scattered rhonchi on auscultation. No tele monitoring at this time, METAL WIRE TECHNICIAN beingmonitored. Patient NPO with TF running. Patient was inc of urine overnight but is starting to use the urinal during the day. OOB to chair with 2 assist stand pivot, tolerated well. Action: As per RT, patient had an episode of desaturation and needed some suctioning thru trach. Speaking valve removed at this time. Response: Patient is currently resting in chair with 02 sat above 95%. Will monitor. DENISSE COX RN 04/11/2019 13:59 Addendum: DIE ATTACHING MACHINE TENDER in to see patient this afternoon, see RT and DIE ATTACHING MACHINE TENDER note * Plan of Care - Alcides, Lianne, MS [facility]DIE ATTACHING MACHINE TENDER - 04/11/2019 1042 EDT Surgical Airway Weekly Rounds Note Date of Roundin04/09/2019 Shirlene Bryan is a 64 y.o. year old male Reason for admission:[id number] J18.9 Pneumonia, unspecified organism-J18.9[ICD-10-CM] Indication for Surgical Airway: Airway Clearance Mechanical Ventilation Date Surgical Airway performed:Date: 03/28/19 Procedure Type: Percutaneous Placed by: PATRICK Known Critical Airway issues: None reported Surgical Airway Hardware: Surgical Airway Shiley 8 mm Cuffed (Active) Site Assessment Clean 04/11/2019 7:15 Site Care Protective barrier to skin 04/11/2019 7:15 Inner Cannula Care Change/New 04/10/2019 12:04 Ties Assessment Clean;Dry;Intact 04/11/2019 7:15 Safety Equipment At bedside;Obturator;Spare Trach;Bag Mask 04/11/2019 7:15 Number of days: 13 Surgical Airway $Airway Status: Secured;Cuffed (04/11/19714) $Cuff Pressure (cmH2O), surgical: 0 mmHg (04/11/19714) $Cuff Volume: 0 ml (04/10/191923) Current Airway/Hardware Status: Tracheostomy has cuff inflated. Deep suctioning is being performed every 4 hours or more frequently for large secretions that are thin. Oxygenation: Mechanical Ventilation 35% SpO2: [89 %-100 %] () QI Checklist: Airway Alert sign is posted at [facility]?:Yes Surgical Airway Emergency Kit is in room? Yes Tracheostomy/Laryngectomy Education Brochure/Binder is in room?: No Sticky Note with Surgical Airway Treatment team updated? No Patient is currently on: MICU FYI tab has Surgical Airway information updates? No Team Input/Updates: RT: Tolerating speaking valve well. Off vent for 24o. Will see how tolerates off vent RN Science Intern: CCNA (ENT): DIE ATTACHING MACHINE TENDER: Davida Randhawa DIE ATTACHING MACHINE TENDER - Tolerate SPV trial on 04/10/19, wearing spv during day. Only assessed with icechips. NPO receiving nutrition via ng tube.? Assess with other po RN: MD: DOREEN/SW: ASSESSMENT: Shirlnee Bryan is a 64 y.o. year old male, status post/admitted with [id number] J18.9 Pneumonia, unspecified organism-J18.9[ICD-10-CM] Multidisciplinary team assessment(s) regarding Surgical Airway re: Plan of Care This patient should clock three days off of the vent before his trach is downsized. He had unsafe cuff pressures with the smaller trach originally. RECOMMENDATIONS/PLAN: Surgical Airway Team will continue to Round weekly at a minimum regarding this patient's Plan of Care 1. Change trach out on Tuesday to a cuffless tube if he continuous to do well off of the vent. 2. DIE ATTACHING MACHINE TENDER to assises swallowing for candidacy to resume po Sheela Agudelo, RT Lianne Mcgrath, MS CCC-DIE ATTACHING MACHINE TENDER Samantha Hamilton, RT Dominga Marsh, CCNA JORGE Valdivia MD Mindy Kilburn, RN 04/11/2019 Electronically signed by Lianne Mcgrath, MS [facility]DIE ATTACHING MACHINE TENDER at 04/11/2019 14:33 EDT * Plan of Care - Tyler Guy RN - 04/11/2019 0624 EDT Data: Report received, PT in bed in NAD. Action: Assess and treat hemodynamics and resp status as indicated. Monitor labs, UOP, skin condition, and neuro status, notify power house engineer with any significant changes. Promote patient comfort andsafety. Maintained on TC and speaking valve throughout this shift. Response: Pt has been safe * Plan of Care - Priyanka'Paul Otto RN - 04/10/2019 5876 EDT Data: Trach remains in place. Pt has a productive cough and is able to manage secretions w/ assistance of suctioning. Skin is severely compromised w/ known deep pressure injury on coccyx. Pt appears deconditioned and malnourished. Action: RT and DIE ATTACHING MACHINE TENDER came to bedside this morning and placed pt on trach collar along w/ speaking valve. Pt is now able to communicate with staff using his voice. Got pt OOB to chair. Intermittently incontinent of urine and stool. OT and PT at bedside to consult. Q4 Vs. D/c'd tele. Response: Pt is back in bed resting comfortably. Pt's mood appears to be uplifted since he is now able to speak. Tolerated trach collar and speaking valve well. PAUL WADE RN 04/10/2019 17:59 * Plan of Care - Tyler Guy RN - 04/10/2019 0528 EDT Data: Report received, PT in bed on TC Action: Assess and treat hemodynamics and resp status as indicated. Monitor labs, UOP, skin condition, and neuro status, notify power house engineer with any significant changes. Promote patient comfort andsafety. Pt placed on vent to rest overnight. Response: Pt has been safe and able to maintain his secretions * Plan of Care - Paul Wade RN - 04/09/2019 1614 EDT Data: Assumed care of pt @ 0700. Trach remains in place on vent settings at start of shift. Lung sound diminished w/ coarse crackle. Moderate thick white/clear secretions suctioned through trach. Strong cough noted- at times pt is able to clear own secretions. VS WNL. Skin is severely compromised w/ known pressure injury to coccyx. Action: Placed on trach collar by RT @ 0902. OOB to chair via nat lift @ 1130. Trach care PRN w/ frequentsuctioning. Response: Pt appears somewhat anxious about progress. Sat up in chair for about 4 hrs. Remains on trach collar. Resting in bed comfortably. PAUL WADE RN 04/09/2019 16:15 * Plan of Care - Shari Smallwood RN - 04/09/2019 0602 EDT Data: Pt admitted for septic shock and ARDS on 03/17. Pt has had complicated recovery which includesmetabolic acidosis, AFIB with rapid ventricular rate, hemorrhagic shock, and tracheostomy placementdue to inability to wean from ventilator. Pt currently alert, able to respond to yes/no questions and follow commands. Able to tolerate 9 hours yesterday off ventilator (on trach collar). Able to transfer to chair with nat lift and tolerate 4 hours up yesterday. Pt receiving tube feeds via Dobbhoff tube. Temperature elevation yesterday. Blood and urine sent for culture. No reports of pain and/or distress. Pt has decubitus ulcer to coccyx. Action: Assess respiratory status and suction tracheostomy as needed. Medicate for pain/discomfort.Monitor temperature. Turn every 2 hours and utilize specialty bed. Continue weaning trials during daytime. Response: Pt able to indicate when he needs tracheostomy suctioning and when he needs oral suctioning. Able to tolerate both without desaturation or distress. No complaints of pain. Pt able to assistwith frequent turning, remains on citbessemer bed. No temperature elevations (100 degrees Farenheight or above) throughout night. Able to void continently to urinal, but has been incontinent of bowels this shift. SHARI SMALLWOOD RN 04/09/2019 6:02 * Plan of Care - Paul Wade RN - 04/08/2019 1601 EDT Data: Assumed care of pt @ 0700. On trach vent settings at start of shift. Pt is alert and able to move all extremities. Able to communicate via clip board w/ pen. Lung sounds diminished. Thick white/clear secretions suctions through trach. NSR on monitor. VS WNL. Park in place draining yellow/straw urine. NGT remains w/ TF at goal. Skin is severely compromised w/ known pressure injury to coccyx. Action: 0900: AM Weight in nat= 59.4 kg 0957: Placed on trach collar by RT 1200: Removed park per MD orders.OOB to chair via nat lift 1700: Back to bed via nat lift. Placed back on trach vent settings. Voided 100 ml in urinal. Tmax= 38.1 C MICU Notifed and aware. Admin PRN tylenol. 1800: Temp= 37 C- Blood and urine cultures ordered. Q2 turns w/ skin care. Suctioned trach PRN. Response: Pt tolerated trach collar well ~9 hrs and was up in the chair for ~ 4 hrs. Resting in bedcomfortably, will continue to monitor. PAUL WADE RN 04/08/2019 16:01 * Plan of Care - Mercy Wick RN - 04/08/2019 0445 EDT Problem: Daily Care Plan Goals Goal: Care Plan Documentation Flowsheets (Taken 04/07/20191999) Area of Focus: Sleep Goal This Shift: rest well overnight Note: Data: assumed care at 1900, pt alert, neurologically intact. Action: encouraged turns and repositions, monitored cardiovascular, resp, neuro, GI, and status.Provided restful environment for the night. Trach care provided. Response: VSS, good UO. Pt able to rest well overnight. MERCY WICK RN 04/08/2019 4:43 * Plan of Care - Meenakshi Moscoso RN - 04/07/2019 4928 EDT Problem: Daily Care Plan Goals Goal: Care Plan Documentation 04/07/2019 567 by Meenakshi Moscoso RN Outcome: Ongoing 04/07/2019 1557 by Meenakshi Moscoso, RN Data: Continuing to actively wean vent as pt can tolerate. Pt did trach collar x 4 hrs today. Towards end of trial pt did c/o of SOB c RR in the 30's. No desaturations noted. Suctioned for thick white secretions, pt does have good strong cough effort and is able to raise secretions on his own at times. Attempted to stand patient at bedside however pt extremely weak and was unable to straighten out legs to fully bear weight. TF at goal rate. VSS Temp max 37.7. Action: Continue c daily vent weans as pt can tolerate. Increase mobility status and OOB daily. Monitor for toleration of TF. Response: Pt remains weak and debilitated, is making slow steady progress. Meenakshi Moscoso RN 04/07/2019 15:59 * Plan of Care - Meenakshi Moscoso RN - 04/07/2019 1557 EDT Problem: Daily Care Plan Goals Goal: Care Plan Documentation 04/07/2019 1557 by Meenakshi Moscoso RN Outcome: Ongoing 04/07/2019 1556 by Meenakshi Moscoso RN Outcome: Ongoing 04/07/2019 1556 by Meenakshi Moscoso RN Outcome: Met This Shift * Plan of Care - Mercy Wick RN - 04/06/20192042 EDT Problem: Daily Care Plan Goals Goal: Care Plan Documentation Flowsheets (Taken 04/06/20191999) Area of Focus: Mobility Goal This Shift: ambulation Note: Data: assumed care at 1900, pt alert and appropriate. Action: encouraged turns and repositions, monitored VS, cardiovascular, resp, neuro, GI, and status. Encouraged rest overnight. Trach care provided. Response: pt resting well overnight, good UO Attempted daily weight, bed must be re-zeroed before next weight, pt did not want to get OOB at this time, will refer to the next shift. MERCY WICK RN 04/06/2019 20:41 * Plan of Care - Aretha Márquez RN - 04/06/2019 1815 EDT Problem: Daily Care Plan Goals Goal: Care Plan Documentation Flowsheets (Taken 04/06/2019 0800) Area of Focus: Mobility Goal This Shift: oob to chair Note: Data: attempted to lift pt oob to chair today, pt refused saying he would rather dangle at side of bed Action: pt was repositioned Q2, also repositioned himself in bed frequently. Dangled at side of bedwith 2 person assist. Response: pt remains on vent today d/t tachypnea. Fairly tolerated ambulation. Aretha Márquez RN 04/06/2019 18:09 * Plan of Care - Mercy Wick RN - 04/05/2019 2132 EDT Problem: Daily Care Plan Goals Goal: Care Plan Documentation Flowsheets (Taken 04/05/2019 2000) Area of Focus: Sleep Goal This Shift: encourage rest Note: Data: assumed care at 1900, pt alert and oriented, using pen and paper to communicate. Action: meds given per MAR, pt tachypnic, encouraged rest, suctioned airway as needed, changed gauze around trach. Monitored cardiovascular, resp, neuro, GI, and status. Encouraged turns and repositions. K+ repleated per MAR Response: good UO, pt rested well overnight [facility] RN 04/05/2019 21:29 * Plan of Care - Aretha Márquez RN - 04/05/2019 1736 EDT Problem: Daily Care Plan Goals Goal: Care Plan Documentation Outcome: Ongoing Flowsheets (Taken 04/05/2019 0800) Area of Focus: Respiratory Goal This Shift: maintain trach collar Note: Data: pt had been on trach collar through the night and into the morning. He was showing signs of tiring, tachypnea and increased wob Action:it was decided that he should rest on the vent and was started on klonopin BID. Response: going forward the plan is to rest on the vent at night, and trial trach collar during theday as long as he is tolerating it. Aretha Márquez RN 04/05/2019 17:18 * Plan of Care - Shelly Diallo RN - 04/04/2019 1347 EDT Problem: Daily Care Plan Goals Goal: Care Plan Documentation Flowsheets (Taken 04/04/2019 0800) Goal This Shift: OOB to chair Note: Data: Patient here, long hospitalization, now with trach, feeding tube, recovering. Patient on TC last night until 0100, than on vent to rest. Back on TC about 0900 this morning. Planning for TC as tolerated and activity as tolerated. TF infusing via cortrak. Action: Assessment as noted. Rectal tube removed. AM careas noted and OOB to chair for about 3 hours. Response: VSS. Tolerating activity, still very weak but slowly improving. O2 sats stable, tolerating TC., coughing up most secretions. Patient denies pain. U/O adequate Shelly Diallo RN 04/04/2019 13:42 * Plan of Care - Sheela Agudelo RT - 04/04/2019 1308 EDT Surgical Airway Weekly Rounds Note Date of Roundin04/03/2019 Shirlene Bryan is a 64 y.o. year old male Reason for admission:[id number] J18.9 Pneumonia, unspecified organism-J18.9[ICD-10-CM] Indication for Surgical Airway: Airway Clearance Mechanical Ventilation Date Surgical Airway performed:Date: 03/28/19 Procedure Type: Hybrid percutaneous Placed by: ACS Known Critical Airway issues: None reported Surgical Airway Hardware: Surgical Airway Shiley 8 mm Cuffed (Active) Site Assessment Clean;Dry 04/03/2019 12:15 Site Care Cleaned;Dried;Dressing applied;Protective barrier to skin 04/03/2019 12:15 Inner Cannula Care Change/New 04/03/2019 12:15 Ties Assessment Intact;Dry;Clean 04/03/2019 12:15 Safety Equipment At bedside;Spare Trach;Obturator;Bag Mask 04/03/2019 12:15 Number of days: 6 Surgical Airway $Airway Status: Secured;Cuffed (04/03/19345) $Cuff Pressure (cmH2O), surgical: 30 mmHg (04/03/19345) Current Airway/Hardware Status: Tracheostomy has cuff inflated. Deep suctioning is being performed every 4 hours or less frequently for moderate secretions that are thick and clear. Oxygenation: Ventilator 30% SpO2: [92 %-100 %] () QI Checklist: Airway Alert sign is posted at [facility]?:Yes Surgical Airway Emergency Kit is in room? Yes Tracheostomy/Laryngectomy Education Brochure/Binder is in room?: No Sticky Note with Surgical Airway Treatment team updated? No Patient is currently on: MICU FYI tab has Surgical Airway information updates? No Team Input/Updates: RT: Currently on trach collar trials day 2. RN Science Intern: CCNA (ENT): DIE ATTACHING MACHINE TENDER: Received Speaking valve consult. After tolerating trach collar for 3 consecutive day DIE ATTACHING MACHINE TENDER will coordinate with RT to do speaking valve evaluation. RN: MD: DOREEN/SW: ASSESSMENT: Shirlene Bryan is a 64 y.o. year old male, status post/admitted with [id number] J18.9 Pneumonia, unspecified organism-J18.9[ICD-10-CM] Multidisciplinary team assessment(s) regarding Surgical Airway re: Plan of Care Patient is actively weaning from vent. Not ready for further intervention re: evaluation of cuff deflation tolerance and candidacy for cap/one-way speaking/swallowing valve via manometry (i.e., stepstoward weaning and/or least restrictive trach hardware). RECOMMENDATIONS/PLAN: Surgical Airway Team will continue to Round weekly at a minimum regarding this patient's Plan of Care Please order: DIE ATTACHING MACHINE TENDER Speaking/Swallowing Valve Assessment with DIE ATTACHING MACHINE TENDER and RT as patient is meeting criteria re: DIE ATTACHING MACHINE TENDER/RT speaking/swallowing valve assessment RT Vanda Jesus 04/03/2019 * Plan of Care - Cinthia Helms RN - 04/04/2019 0352 EDT Problem: Daily Care Plan Goals Goal: Care Plan Documentation Outcome: Met This Shift Flowsheets (Taken 04/03/2019 2000) Area of Focus: Sleep Goal This Shift: restful sleep without sedation Note: Data: Assumed care of the pt at 1900, up in the chair on trach collar. Action: Lift used for transfer back to bed; pt continued on trach collar until 0100. Active movement in the bed with some self repositioning. Response: In bed sleeping, call grayson in reach. Will continue to monitor CINTHIA HELMS RN 04/04/2019 3:49 * Plan of Care - Shelly Diallo RN - 04/03/2019 4695 EDT Problem: Daily Care Plan Goals Goal: Care Plan Documentation Flowsheets (Taken 04/03/2019 0800) Goal This Shift: OOB to chair Note: Data: Patient admitted 03/17 with Respiratory failure. Long complicated hospitalization, patient nowwith Trach and Cortrak feeding tube. Vent at night, plan for trach collar during day Action:Assessment as noted. Trach collar today for 8+ hours today. OOB to chair x 2 today. Tolerating TF though still with loose stools and flexiseal, metamucil started today. Ketamine gtt stopped today. Response: VSS,U/O adequate, O2 sats stable, tolerating TC well. Mood good off ketamine. Tolerating OOB to chair well. Shelly Diallo RN 04/03/2019 18:15 * Plan of Care - Tawanna Garza RN - 04/03/2019 5004 EDT BP 132/70 Temp 36.8 ??C (98.2 ??F) (Tympanic) Resp 23 Ht 181.6 cm (71.5) Wt 71 kg (156 lb 8.4 oz) SpO2 98% BMI 21.53 kg/m?? Data: See doc flow Action: Pt A&Ox3, VSS, NSR noted on monitor. Trach site C/D/I, vent settings managed by respiratory. Tube feedings at goal. Park draining clear, yellow urine. Pt turned q2. Rectal tube remains in place. Response: Pt resting comfortably at this time. Call grayson within reach, will continue to monitor. TAWANNA GARZA RN 04/03/2019 4:39 * Plan of Care - Maria Dolores Silverman RN - 04/02/2019 1421 EDT Problem: Daily Care Plan Goals Goal: Care Plan Documentation Outcome: Ongoing Flowsheets (Taken 04/02/2019 0800) Area of Focus: Respiratory Goal This Shift: ween from vent Note: Data: Assumed care at approx. 0715. A&Ox3 but intermittently confused (hypoactive delirium?). Patient on propofol and ketamine gtts. VSS. Coarse crackles heard on auscultation. On weaning trial at time of shift change. Active bowel sounds. Park patent and draining. Action: Weaned to trach collar. Meds given. Repositioned q2h. Oral care q4h. CHG bath. Girlfriend updated. Response: Tolerated trach collar well. Switched back to ventilator at approx 1800. MARIA DOLORES SILVERMAN RN 04/02/2019 14:21 * Plan of Care - Meenakshi Moscoso RN - 04/01/2019 1000 EDT Data: Pt admitted on 03/17 c ARDS and multifocal PNA, septic shock, RVR, SIRISHA and now FTW trached on 03/28. Pt remains in SR c stable b/p. Fio2 35% peep 5. Pt did pass 1 hr PS trial this am and is back on AC. Pt following commands and is currently on Ketamine@ 10mg/hr and low dose Propofol. Propofol shut off this morning to help increase pt wakefulness during the day. Continuing to diuresis pt dailyc Lasix. Tolerating TF @ goal rate. Action: Continue to monitor and maintain adequate hemodynamics. Monitor daily fluid status. Attemptto keep Propofol off during the day and use prn at night. Olanzipine decreased to 5mg qhs on roundsthis morning. Maintain Ketamine gtt at 10mg/hr for today and will possibly wean tomorrow. Get patient OOB daily and increase to bid as pt stamina increases. Continue c daily PS trials. Response: Overall pt status improving, neurologically is consistently following commands, does appear a bit sedate so Propofol shut off this am. Pt extremely weak and debilitated, PT/OT ordered on rounds today. Meenakshi Moscoso RN 04/01/2019 10:00 * Daily Progress Note - Eden Ley, RT - 04/01/2019 9198 EDT Respiratory Progress Note Indications for Respiratory therapy: Vent/Trach Data Vitals: Heart Rate: 57 BPM, Resp: 22, SpO2: 100 % FIO2/O2 Device: O2 Device: Intubated, FIO2 %: 35 % RT Orders: Q4 Respiratory Care Evaluation (Trach/Vent) PRN Duoneb PRN Airway Clearance (IPV) Tracheostomy Tube Information - #8 Shiley cuffed with a disposible inner cannula Ventilator Settings - 530 x 14 +5 Action/Events Pt remained on above ventilator settings overnight. No desaturations noted. Respiratory rate 26-30 overnight. Q4 trach care done overnight. (Trach site with oozing secretions). All emergency equipment at bedside. Pt tolerated SBT for an hour. Pt had a couple episodes where his RR would increased but would settle back down into the mid 20's to low 30's. RT Karlene 04/01/19 * Plan of Care - Bria Gamble RN - 04/01/2019 0303 EDT Problem: Daily Care Plan Goals Goal: Care Plan Documentation Outcome: Met This Shift Flowsheets (Taken 04/01/2019 0000) Area of Focus: Neuro Status Goal This Shift: Pt will become more oriented Data: Assumed care at 2300, pt admitted 15 days ago s/p ARDS d/t pneumonia, requiring trach. Pt alert on small amount of propofol and ketamine, RR in 20s- 30's. Pt requesting to write on clip board for communication, however patient too weak to write legibly. Action: Set up patient with soft-touch call grayson. Removed restraints (notified .) Q2H turns. Re-oriented pt as needed. Response: Pt currently sleeping comfortably, VSS. Will CTM. Bria Gamble RN 04/01/2019 3:08 * Daily Progress Note - Eden Ley, RT - 03/31/2019 0450 EDT Respiratory Progress Note Indications for Respiratory therapy: Vent/Trach Data Vitals: Heart Rate: 70 BPM, Resp: (!) 33, SpO2: 100 % FIO2/O2 Device: O2 Device: Intubated, FIO2 %: 40 % RT Orders: Q4 Respiratory Care Evaluation (Trach/Vent) PRN Duoneb PRN Airway Clearance (IPV) Tracheostomy Tube Information - #8 Shiley cuffed with a disposible inner cannula Ventilator Settings - 530 x 14 +5 Action/Events Pt remained on above ventilator settings overnight. No desaturations noted. Respiratory rate 26-30 overnight. Increases to 35-40 when sedation was lowered. Moving around in bed. RN increasing sedation. Suctioned overnight for small- moderate amount of secretions. Pt with oozing secretions under trach site. Emergency equipment at bedside. Pt placed briefly in SBT 5/5 this morning but RR immediately into high 30;'s - low 40's. Pt placed back in previous ventilator settings. RT Karlene 03/31/19 * Plan of Care - Bria Gamble RN - 03/31/2019 0247 EDT Problem: Daily Care Plan Goals Goal: Care Plan Documentation Outcome: Not Met This Shift Flowsheets (Taken 03/31/2019 0000) Area of Focus: Respiratory Goal This Shift: Able to wean vent settings Data: Assumed care at 1900, patient trached on supportive vent settings, sedated on propofol and ketamine. Goal to wean sedation overnight. Otherwise patient in NSR, BPs stable, loose stool draining via flexicele, adequate UO. Action: Weaned propofol from 14 mcg to 8 mcg. Response: Pt unable to tolerate lower propofol dose, RR 37-40, wiggling down in bed. Placed pt backto 10 mcg propofol, still very tachypenic, setting off vent alarm constantly. Back to 14 mcg/min, will CTM. Bria aGmble RN 03/31/2019 2:47 * Plan of Care - Prasad Pandey RN - 03/30/2019 1830 EDT Problem: Daily Care Plan Goals Goal: Care Plan Documentation Flowsheets (Taken 03/30/2019 0800) Goal This Shift: monitor tolerance to vent, titrate propofol & ketamine to comfort & safety, I&O Note: Data: Admitted for PNA & rapid a-fib with RVR from [facility]. Complicated with ARDS, SIRISHA, septic shock, GI bleed- hemorrhagic shock. Currently trached/vented & sedate on ketamine & propofol gtt. Aroused by persistent verbal & painful stimuli- weakly opens eyes, grasp bilat hands & wiggles all toes. When asked if he could hear, he nodded his head yes. Incontinent of frequent loose brown BMs. Action: Monitor VSq1hr, monitor tolerance to vent, titrate propofol & ketamine to maintain comfort & safety, monitor tolerance to keofeedings, I&O, q12hr lytes & CBC. 0915: Ketamine gtt decreased to 10mg/hr per Dr Galdamez 1100: flexiseal inserted without difficulty. 1220: propofol gtt decreased to 16.5mcg 1625: propofol gtt decreased to 14mcg Response: Increased U/O after medicated with lasix, K= 3.3, Dr Katty Martinez notified- Plan: replace with KCL 40meq OGT & 20meq IV. MAP<65 when sleeping & >65 with stimuli, resp rate >28with stimuli- decreasing to lower 20's when sleeping. Flexiseal containing loose stool. Arms continue to weep serous fluid. Prasad Pandey RN 03/30/2019 18:15 * Plan of Care - Jazmin Steiner RN - 03/30/2019 0644 EDT Problem: Daily Care Plan Goals Goal: Care Plan Documentation Outcome: Ongoing Flowsheets (Taken 03/29/20191999) Area of Focus: Respiratory Goal This Shift: synchronous on vent with lowered sedated Note: Data: Pt admitted with respiratory failure, SIRISHA, and GI bleed. AAO, able to follow commands, pt restless and tachypnic when sedation lowered. Tracheostomy in place on vent 50% fio2 peep 10. Receivingtube feeding. Action: Monitoring vitals signs, I/O, and lab values. Repositioned patient Q2H. Good urine output in response to lasix. Response: VSS, NSR. Will continue to monitor. JAZMIN STEINER RN 03/30/2019 6:40 * Daily Progress Note - Eden Ley RT - 03/30/2019 0303 EDT Respiratory Progress Note Indications for Respiratory therapy: Vent/Trach Data Vitals: Heart Rate: 76 BPM, Resp: 23, SpO2: 100 % FIO2/O2 Device: O2 Device: Intubated, FIO2 %: 50 % RT Orders: Q4 Respiratory Care Evaluation (Trach/Vent) PRN Duoneb PRN Airway Clearance (IPV) Tracheostomy Tube Information - #8 Shiley cuffed with a disposible inner cannula Ventilator Settings - 530 x 14 + 10 Action/Events Pt remained on above ventilator settings overnight. No desaturations noted. Respiratory rate 26-30 overnight, occasionally goes into mid 30's with coughing but comes down with suctioning. Trach site oozing secretions, site dried and cleaned. Trach ties changed. All spare equipment at bedside. RT Karlene 03/30/19 * Plan of Care - Kathrine Khan RN - 03/29/2019 1823 EDT Arterial line removed by RN at bedside per MD request. Pressure held to brachial site for 7 minutesby RN, no evidence of bleeding after pressure applied noted- site dressed with gauze and transparent dressing. RN to continue to monitor site for S/S of bleeding. * Plan of Care - Kathrine Khan RN - 03/29/2019 1730 EDT Pt off MICU unit to CT imaging (see order) with two RN, RT, and transport escort from [id number]. Pttransported on sedation and ventilator. VS remained stable throughout transport and return to MICU unit. * Plan of Care - Kathrine Khan RN - 03/29/2019 1132 EDT Park catheter collection bag leaking- collection bag changed out, RN will continue to monitor pt. * Plan of Care - Kathrine Khan RN - 03/29/2019 0747 EDT Data: pt is intubated and sedated on pressors at this time (see MAR for details). PT able to followsimple commands such as; squeezing bilateral hands and moving bilateral feet, bilateral thumbs up, and open eyes to voice/command. Upon abdominal examination RN noted abdomen to be firm, with some superficial signs of bruising. RN noted abdomen also has a refractory pulsation/quiver to palpation. Action: RN paused tube feeds and notified MICU attending Dr. Galdamez in department of findings. Response: MD at bedside assessing patient, MD aware of abnormal assessment findings and informed RNof new Ultra Sound orders to be completed today S/T findings. RN will keep tube feeds paused until further examination is done; RN will continue to monitor patient's status and notify MD of any drastic changes in VS/status. KATHRINE KHAN RN 03/29/2019 7:47 * Plan of Care - Jazmin Steiner RN - 03/29/2019 0636 EDT Problem: Daily Care Plan Goals Goal: Care Plan Documentation Outcome: Ongoing Flowsheets (Taken 03/28/20191999) Area of Focus: Circulatory Status Goal This Shift: wean pressors Note: Data: Pt admitted with respiratory failure, ARDS, SIRISHA, and GI bleed. Pt has tracheostomy, remains sedated due to increased respirations and minute ventilation when sedation lowered. Receiving tube feeding. Action: Monitoring vital signs, I/O, and lab values. Repositioned pt Q2H. Trach site CDI. Large urine output in response to lasix. Fentanyl drip off, vasopressors titrated down as tolerated. Response: VSS, remains on low dose levophed. Will continue to monitor. JAZMIN STEINER RN 03/29/2019 6:19 * Daily Progress Note - Wesley Ott RT - 03/29/2019 0353 EDT Respiratory Progress Note Indications for Respiratory therapy: Vent/Trach Data Vitals: Heart Rate: 83 BPM, Resp: 26, SpO2: 97 % FIO2/O2 Device: O2 Device: Intubated, FIO2 %: 40 % RT Orders: Q4 Respiratory Care Evaluation (Trach/Vent) PRN Duoneb PRN Airway Clearance (IPV) Tracheostomy Tube Information - #8 Shiley cuffed with a disposible inner cannula Ventilator Settings - 530 x 14 + 8 Action/Events Respiratory events; Patient weaned to 40% FiO2 at the start of the shift. Suctioning out moderate amounts of pink-tinged yellow thick sputum in-line following lavage. Small amounts of white/pink sputum orally suctioned.Inner cannula changed later in the evening. Small amounts of oozing bloody-appearing sputum from site; cleaned and dried repeatedly. Minute Ventilation frequently going back into the mid teens at times (therefore not weanable per daily weaning score). Continue with Q4 Respiratory Care Evaluations for further monitor of patient as ordered . RT BENNIE 03/29/19 * Anesthesia Post-Eval - Jovana Blum CRNA - 03/28/2019 1320 EDT Anesthesia Post op Note Shirlene Bryan [id number] Anesthesia received: General; Vital Signs: Temp: 36.1 ??C (97 ??F), Heart Rate: 111 BPM, BP: 96/68, Resp: 13, SpO2: 100 % Vital signs Stable: Yes(BP were a little soft in the high 80s, HR 120 2* glyco w reversal, RNs at bedside said they were ok w this and would call if had any concerns) Consciousness: Sedated Patient's participation in evaluation:Unable to participate due to sedation/critical care Temperature Status: Normothermic Respiratory Status: Ventilator Supplemental O2: Vent support Oxygen Saturation: Appropriate for condition Cardiovascular Status: Appropriate for condition Post-op Hydration: Adequate Nausea / Vomiting: None Pain Control: Adequate Current Pain Score: Numeric Pain Level (Scale 1-10): 0, Majano-Jaime Pain Rating (Scale 0-10): No hurt, Adult Nonverbal Pain ScaleTotal: 0 Post-op Assessment: Tolerated procedure well Disposition: Inpatient Complications: No apparent anesthetic complications Jovana Blum CRNA 03/28/2019 13:20 Cosigned by Owen Aguilar MD MD at 03/29/2019 8:16 EDT * Plan of Care - Kathrine Khan RN - 03/28/2019 1305 EDT Pt arrived in MICU with anesthesia team post tracheostomy placement. Pt is currently tachycardic (110-130s), saturating 88% on ventilator. RT is at bedside with pt, per anesthesia- pt is s/p a pharmacological reversal agent (see MAR). RN will continue to monitor pt closely. * Plan of Care - Sheela Agudelo RT - 03/28/2019 1248 EDT Surgical Airway Weekly Rounds Note Date of Roundin03/28/2019 Shirlene Bryan is a 64 y.o. year old male Reason for admission:[id number] J18.9 Pneumonia, unspecified organism-J18.9[ICD-10-CM] Indication for Surgical Airway: Mechanical Ventilation Date Surgical Airway performed:Date: 03/28/19 Procedure Type: Open surgical Placed by: ACS Known Critical Airway issues: None reported Surgical Airway Hardware: Surgical Airway Shiley 6.4 mm Cuffed (Active) Number of days: 0 Current Airway/Hardware Status: Tracheostomy has cuff inflated. Deep suctioning is being performed every 4 hours or less frequently for large secretions that are thick. Oxygenation: Ventilator SpO2: [92 %-100 %] () QI Checklist: Airway Alert sign is posted at [facility]?:Yes Surgical Airway Emergency Kit is in room? Yes Tracheostomy/Laryngectomy Education Brochure/Binder is in room?: No Sticky Note with Surgical Airway Treatment team updated? No Patient is currently on: MICU FYI tab has Surgical Airway information updates? No Team Input/Updates: RT: Trach was dilated and unsized for initially high cuff pressures of 100 cmH2o. RN Science Intern: CCNA (ENT): DIE ATTACHING MACHINE TENDER: RN: MD: DOREEN/SW: ASSESSMENT: Shirlene Bryan is a 64 y.o. year old male, status post/admitted with [id number] J18.9 Pneumonia, unspecified organism-J18.9[ICD-10-CM] Multidisciplinary team assessment(s) regarding Surgical Airway re: Plan of Care Patient remains sedated and/or fully ventilated. Not medically ready for further intervention re: evaluation of cuff deflation tolerance and candidacy for cap/one-way speaking/swallowing valve via manometry (i.e., steps toward weaning and/or least restrictive trach hardware). RECOMMENDATIONS/PLAN: Surgical Airway Team will continue to Round weekly at a minimum regarding this patient's Plan of Care Sheela Agudelo RT Ilan Zamora DIE ATTACHING MACHINE TENDER Adrienne Garcia RN 03/28/2019 * Brief Op Note - Juan Omalley MD - 03/28/2019 1239 EDT BRIEF OP NOTE Surgeon: Dr. Castro Bandage Wrapping Machine Operator: Kori Rice [facility] Pre-op diagnosis: Respiratory Failure Post-op diagnosis: same Procedure: Tracheostomy, with bronchoscopy Anesth: GETA Findings: Long neck with shallow trach, easily identifed cricothyroid membrane and placed trach between 1st/2nd rings EBL: <25cc IVF: Gtt's unchanged UOP: Not recorded Specimen: n/a Cultures: none Foreign Material Retained: 6 Cuffed Tracheostomy Tube Complications: none Dispo: MICU, stable Juan Omalley MD 03/28/2019 12:40 * Plan of Care - Jazmin Steiner RN - 03/28/2019 0646 EDT Problem: Daily Care Plan Goals Goal: Care Plan Documentation Outcome: Ongoing Flowsheets (Taken 03/27/20191999) Area of Focus: Circulatory Status Goal This Shift: wean pressors Note: Data: Pt admitted with pneumonia, ARDS, SIRISHA, and GI bleed. Pt intubated and sedated, able to followsimple commands and move all extremities. On vent 40% fio2. Tube feeding off at midnight for scheduled tracheostomy today. Action: Levophed titrated down to keep MAP >65. Remains on ketamine, propofol, and fentanyl. Changed vent mode to CPAP due to pt being more synchronous. Monitored vital signs, I/O, and lab values.Repositioned pt Q2H. Response: VSS, NSR. Tracheostomy planned to this morning. Will continue to monitor. JAZMIN STEINER RN 03/28/2019 6:39 * Daily Progress Note - Naila Mcgee RT - 03/27/2019 1320 EDT Respiratory Progress Note Indications for Respiratory therapy: Acute Respiratory Failure w/Hypoxia and presumed pneumonia, Mech Vent Data Vitals: Heart Rate: 59 BPM, Resp: 18, SpO2: 99 % FIO2/O2 Device: O2 Device: Intubated, FIO2 %: 50 % RT Orders: ACT PRN, Duoneb PRN Action/Events Respiratory events; Patients waveform are inconsistent and he appears to be trying to pull more Vt than he is set for. Breath sound are diminished but clear. He appears to be coming out of sedation slightly. Vent variables were adjusted to achieve better waveforms, however there was no change. Response/Results Weaning and Toleration of treatments; Patient not ready to wean. Received permission from Dr. Galdamez to increase Vt to 527, 7cc/kg. RT Brian 03/27/19 * Plan of Care - Denisse Cox RN - 03/27/2019 6216 EDT Assumed care of patient at 0700. Patient is sedated on Propofol, Ketamine and Fentanyl. RASS -5 to -4, plan to wean down on sedation as tolerated. Ketamine decreased from 30 mg/ hr to 20 mg/hr. Patient intubated on ARDS vent settings. On Levophed to keep MAP above 65 mm Hg. Edema noted in all 4 extremities and scrotum. Lungs clear. Abd softly distended. Flexi seal and park in place, draining large amounts of clear yellow urine. Patient is being diuresed with lasix today Skin tears present on arms and mepilex present to sacrum. Tube feedings resumed today. Turned and repositioned every 2 hours, will continue to monitor for changes. * Plan of Care - Tawanna Garza RN - 03/27/2019 4370 EDT BP 119/74 Temp 35.6 ??C (96.1 ??F) (Tympanic) Resp 25 Ht 181.6 cm (71.5) Wt 70.4 kg (155 lb 3.2 oz) SpO2 98% BMI 21.35 kg/m?? Data: Septic shock and acute hypoxic respiratory failure secondary to presumed pneumonia Action: Pt remains intubated and sedated. O2 weaned from 55% to 50%. Fentanyl, ketamine, levophed, and propofol titrated as tolerated, see docflow. Electrolytes monitored q6. H&H critical on am labs, will transfuse this am. Response: Safety maintained, will continue to monitor. TAWANNA GARZA RN 03/27/2019 5:45 * Plan of Care - Denisse Cox RN - 03/26/2019 1502 EDT Assumed care of patient at 0700. Patient is sedated on Propofol, Ketamine and Fentanyl. RASS -5 to -4, plan to wean down on sedation as tolerated. Patient intubated on ARDS vent settings. On Levophedto keep MAP above 65 mm Hg. Edema noted in all 4 extremities and scrotum. Lungs clear. Abd softly distended. Flexi seal and park in place, draining adequate amounts of clear yellow urine. Skin tearspresent on arms and mepilex present to sacrum. Patient went for chest and abdomen CT this morning. Turned and repositioned every 2 hours, will continue to monitor for changes. * Daily Progress Note - Naila Mcgee RT - 03/26/2019 1412 EDT Respiratory Progress Note Indications for Respiratory therapy: ARDS, Septic Shock, Mech Vent Data Vitals: Heart Rate: 69 BPM, Resp: 18, SpO2: 95 % FIO2/O2 Device: O2 Device: Intubated, FIO2 %: 50 % RT Orders: PRN IPV, PRN Duoneb Action/Events Respiratory events; No PRN treatments required today. Tube moved, patient has sore on L side of bottom lip. Attempted suctioning brought up nothing. Adjusted flow to test for weaning, patient not ready for weaning. ET @ 25.5 cm at lips, 8mm cuffed. Response/Results Weaning and Toleration of treatments; Continue as ordered, Wean as tolerated. RT Brian 03/26/19 * Plan of Care - Shayla Galvin RN - 03/26/2019 0031 EDT Levophed gtt for hypotension BP monitoring continuously Levophed gtt increased from 14mcg/min to 30mcg/min post Lasix received on evening shift to maintainMAP's >65mmHg: to cont F/U. * Plan of Care - Laureen Hanson RN - 03/25/2019 1846 EDT Problem: MECHANICAL VENTILATION Goal: Patient Will Maintain Patent Airway Outcome: Ongoing Data: Pt transferred from [facility] 8 days ago intubated hemodynamicly unstable new afib, nsr+ ARDS, + septic shock + hemorraghic shock had endoscopy 03/21 duodenal clip placed, failure to wean, + SIRISHA, + PNA, bactremic, levophed at 14 mcg, on fentanyl, ketamine, and propofol drip to keep sedated residual 300 today tf off for a few hrs restarted at a lower rate, tolerating tf, lasix given x2good diureis, + flexiseal brown, hct stable hypokalemic tx maría elena now wnl mg low Dr. Nguyen aware orders placed awaiting approval, pt bucking vent when propofol off, restarted presently quiet and not bucking vent Action: PLan: keep map > 65, sat > 92%, uo > 30/hr, turn q 2hr, titrate levphed for map 65, monitor for residuals fs q 6 hr Response: con't to monitor, met goals this shift, weaned levophed down as tolerated Laureen Hanson RN 03/25/2019 18:47 * Plan of Care - Shayla Galvin RN - 03/24/2019 2236 EDT Pt hypotensive with sedation Levophed gtt for MAP's >65mmHg Wean pressor as tolerated * Plan of Care - Baudilio Owens RN - 03/24/2019 0658 EDT Problem: Daily Care Plan Goals Goal: Care Plan Documentation Outcome: Ongoing Flowsheets (Taken 03/23/20191999) Goal This Shift: Pt will remain hemodynamically stable and in sync with the vent. Data: Assumed care of pt at 1900 with dx ARDS and PNA as xfer from [facility] on 03/17. Pt with MSSAbacteremia and GI bleed. Action: Pt on vent settings 70% FiO2 8 PEEP and was able to titrate down to 60% for a short while but needed to go back up to 70% for sats dropping into the low 80s. Pt also noted to be biting down on his ET/OG tubes so a biteblock strap was placed with RT. Response: Pt very restless for most of the evening with goal of sedation difficult to reach. Pt on 30 of Ketamine and varied between 25-100 of Fentanyl with monitoring SBPs and MAPs via his Marti. Ultimately, pt settled on 30 and 100 with bolus doses of Fentanyl at 25; higher doses of Fentanyl 50 would cause pt to drop his SBPs to 80s and MAPs to high 50s. MD made aware and was okay with lower MAPs so long as pt continued to make urine if he was able to be sedated. Park and flexiseal in place;TF at goal 57ml/hr with 200ml H20 Qhour for hypernatremia. K repleted aggressively for critical value 2.9 with 2packets via [id number] and IV x3 bags this shift; lytes q6 monitoring. Continue to monitor. Baudilio Owens RN 03/24/2019 6:58 * Plan of Care - Tawanna Garza RN - 03/23/2019 0686 EDT BP 119/74 Temp 37.1 ??C (98.8 ??F) (Tympanic) Resp 14 Ht 181.6 cm (71.5) Wt 70.4 kg (155 lb 3.2 oz) SpO2 94% BMI 21.34 kg/m?? Data: HD 6 admitted for Sepsis r/t LLL PNA Action: Pt intubated and sedated, VSS, NSR/ST noted on monitor. Not following commands at this time. Propofol and fentanyl gtt continued. Propofol titrated to maintain map > 65, pt sensitive resulting in hypotension. Discussed with resident about changing to precedex for better sedation control without hypotensive episodes. Park draining clear, yellow urine. Flexiseal output remains dark, black. Free water infusing via OGT at 150cc/hr for hypernatremia. Nafcillin scheduled q4. SBT failed this am. Response: pt resting comfortably at this time, will continue to monitor. TAWANNA GARZA RN 03/23/2019 6:29 * Plan of Care - Shanna rFy RN - 03/22/2019 1716 EDT Data: Pt with recent GIB Action: Monitor circulatory status and signs of bleeding and intervene as needed Response: Ongoing Shanna Fry RN 03/22/2019 17:16 * Plan of Care - Jazmin Steiner RN - 03/22/2019 0641 EDT Problem: Daily Care Plan Goals Goal: Care Plan Documentation 03/22/2019 0632 by Jazmin Steiner RN Outcome: Ongoing Flowsheets (Taken 03/21/20191999) Area of Focus: GI//Elimination Goal This Shift: no signs of bleeding Note: Data: Pt admitted with pneumonia, respiratory failure, and SIRISHA. Subsequently developed GI bleed, esophageal ulcer clipped yesterday. Pt intubated and sedated, localizes to painful stimuli. On vent 50% fio2. Tolerating OG water flushes. Action: Vasopressors and insulin drips off, fentanyl down to 25mcg/H, remains on ketamine. No signsof bleeding, started free water down OG tube for hypernatremia, tolerating thus far. Monitored vital signs, I/O, and lab values, H/H stable. Repositioned Q2H. Response: Will continue to monitor. JAZMIN STEINER RN 03/22/2019 6:32 03/22/2019 0631 by Jazmin Steiner, RN Outcome: Ongoing * Plan of Care - Maggy Hollis - 03/21/2019 0950 EDT Data: Assumed care of pt at 0700, pt admitted with septic shock d/t PNA, complicated by a-fib with RVR and GIB. Pt intubated, sedated with fentanyl and versed gtt's. Unresponsive to voice/physical stimulation, pupils 2mm bilaterally, sluggish, not moving extremities. Febrile this AM, 38.5C. ST in the 110-120's, MAP>65 maintained on Levophed and Vasopressin, A-line in place. Vent settings 70% FIO2 and 10 PEEP, lungs clear, SPO2 94-96%. OGT and rectal tube with bloody output. TXA infusing. Park with clear, yellow urine. Left IJ quad lumen and right PIV in place. Action: MD rounds: change sedation from versed to ketamine, wean vasopressors as able. -q.2hr turns, q.4hr mouth care. CHG bath. -tylenol administered via OGT for fever. -labs collected q.4hrs. Na+ 151 at noon, orders for 1L LR bolus and continuous D5W gtt. Insulin gttordered and started. Q.1hr FS and titration of gtt per protocol. -EGD by GI at bedside. Multiple ulcerations, no active bleeding. Response: will continue to monitor. Maggy Hollis RN 03/21/2019 9:50 * Plan of Care - Jazmin Steiner RN - 03/21/2019 0655 EDT Problem: Daily Care Plan Goals Goal: Care Plan Documentation Outcome: Ongoing Note: Data: Pt admitted to MICU for pneumonia and respiratory failure, developed GI bleed yesterday. Pt intubated and sedated, no response to painful stimuli but desynchronous with vent when sedation lowered. On vent 70% PEEP 10. Large amount of dark red blood from OG and rectal tube. Action: Monitoring vital signs. I/O, and lab values. Repositioned pt Q2H. Trending labs q6H, H/H stable. Triturating vasopressors to keep MAP >65. Response: Will continue to monitor. JAZMIN STEINER RN 03/21/2019 6:44 * Plan of Care - Denisse Cox RN - 03/20/2019 1142 EDT Data: Assumed care of patient at 0700. Patient admitted for sepsis/ARDS. Sedated and on ventilator.VSS with MAP >65 and HR 50-60's. HR and BP increase when patient becomes agitated. Patient on Propofol drip. Patient arouses at times and begins to thrash around in bed, not following commands or opening eyes. PRN Fentanyl given with good relief noted by patient being calmer. Action: Fentanyl drip added to maintain sedation for patient. Free water in tube feeding increased to 150 ml/hr for hypernatremia. Airway clearance therapy started by RT. Response: Will continue to turn and reposition and monitor for any status changes. DENISSE COX RN 03/20/2019 11:42 Addendum: Patient having frequent episodes of desaturations (84-85%). RT aware who adjusted vent settings, PEEP now 12. MICU team also aware, chest x ray ordered. MICU team at bedside to assess patient around 1430. Patient is hypotensive, tachycardic in AF, TV over 1 L on vent. Amiodoerone bolus and infusion ordered, LR bolus ordered (3 L total given). IV mag and K ordered and infused. ABG obtained. Propofol D/C d/t hypotension. IV Fentanyl dose increased from 50mcg/min to 75 mcg/min. IV Ativan given for increased work of breathing. Heparin drip started for suspicion of PE. At 1630 while checking the patients gastric residuals, bright red blood was obtained from OG tube. MICU team aware. Shortly after while turning the patient bright red blood was noted to be draining and leaking around his rectal tube. MICU team aware. Labs sent and H/H found to be 5.8/16.9. 1 unit platelets and 2 unit PRBC ordered and pending from blood bank. Will monitor. * Plan of Care - Aggie Moura RN - 03/20/2019 0552 EDT Data: Patient with pna, intubated, off pressors. Sedated with Propofol. Action: Propofol titrated for ventilator compliance. SBT managed by RT. Labs drawn via Arterial line. Medications administered per orders. Potassium repleted. Response: Patient increasingly agitated when sedation weaned. SBT ended by RT. AGGIE MOURA RN 03/20/2019 5:53 * Plan of Care - Kathrine Khan RN - 03/19/2019 1301 EDT Data: upon shift assessment at 0800 on 03/19/19, the patient's skin under the mepilex positioned on patient's coccyx was assessed by RN- blanchable redness was noted with some pin-prick areas of bruising. The skin was CDI. Action: Wound care nurse was notified of finding. Wound care assessed pt and inputted orders Response: RN communicated finding with care team, maintained mepilex on coccyx, and will maintain astict 2hr turning regimen throughout shift. Pt to be transferred to specialty bed. KATHRINE KHAN RN 03/19/2019 13:01 * Plan of Care - Kathrine Khan RN - 03/19/2019 1225 EDT Delayed entry Data: Pt is sedated on ventilator. RN weaning ketamine drip as tolerated by patient/requested by physician. Drip recently titrated down- see MAR for specific titration action. Pt currently has HR of high 50's-60's which differs from HR of low ST during the beginning of the shift. Pt awoke secondaryto stimulation. Pt thrashing in bed, pt unable to follow commands. A drop in oxygen saturation (to the 80s) was noted, an increase of HR to 120-170 was also noted and pt was briefly in A-fib RVR. Action: RN administered PRN medication for agitation- see MAR. Response: Pt calmed down, HR slowed and converted to irregular SR with periods of A-fib noted- before converting back to SR in the 70-80s. Oxygenation returned to 90% or greater. RN to notify physician of occurrence and continue with treatment plan as indicated by treatment team. KATHRINE KHAN RN 03/19/2019 12:43 * Plan of Care - Shari Smallwood RN - 03/19/2019 0636 EDT Data: Pt admitted for septic shock and acute hypoxic respiratory failure secondary to presumed pneumonia, and AFIB RvR. Pt currently intubated/sedated, and in normal sinus rhythm with occasional bundle branch block. Pt on ketamine for sedation with PRN fentanyl for additional sedation/agitation. Onvasopressin for blood pressure support at start of shift. Receiving flolan. Pt desaturation with activity. Temperature elevated. Action: Administer IV antibiotics. Give fentanyl for sedation as needed. Wean vasopressin as blood pressure supports. Continue to diurese with lasix. Give tylenol to help with temperature management. Response: Pt able to tolerate antibiotics without reaction. Given bolus pushes of fentanyl throughout night. Pt becomes very awakened with activity/turning. Discussed additional sedation and/or changes in sedation with MD. Able to wean of vasopressin. Blood pressures remain stable. Per MD, beginning to wean flolan. Good urine output with use of lasix. Temperature remains elevated, but lessened with tylenol dosing. SHARI SMALLWOOD RN 03/19/2019 6:36 * Plan of Care - Meenakshi Moscoso RN - 03/18/2019 1048 EDT Data: Pt admitted yesterday from [facility] c a-fib RVR, ARDS/PNA c severe acidosis, SIRISHA requiring highpressor requirement. Pt converted to SR overnight on own. Pt remains on 2 pressors, Vaso and Levophed, are are actively weaning Levophed for map goal>65. Continuing to diuresis pt q6hr as ordered and RT started Flolan wean this morning. Fio2 weaned to 50% Peep remains at 10. Pt is febrile this mo rning, MICU team aware and are continuing c current antibx regime. TF started this am. Pt remains on high dose Ketamine @ 70mg/hr for sedation, failed Propofol trial secondary to hypotension this morning. Action: Continue to monitor hemodynamics and fluid/respiratory status closely. Titrate pressors formap goal>65. Continued c scheduled Tylenol as ordered. Will maintain Ketamine gtt at current rate and use prn Fentanyl for pain. Monitor for toleration of TF and increase to goal rate as tolerated. Response: Overall hemodynamics and respiratory status improved from yesterday. 1425: Pt weaned off Levophed, weaning Vasopressin down to .03units/hr. Remains on Flolan 30ng/kg/min down from 50 this am. 02 sats remain around 90- 92% at this time, Fio2 50% Peep 10. Meenakshi Moscoso RN 03/18/2019 10:48 * Plan of Care - Kathy Saab RN - 03/18/2019 0357 EDT Problem: Daily Care Plan Goals Goal: Care Plan Documentation Outcome: Ongoing Flowsheets (Taken 03/17/20191999) Area of Focus: Circulatory Status Goal This Shift: Hemodynamic stability Note: Data: Acute respiratory failure 2/2 PNA. Remains intubated on ketamine with prn fentanyl. Titrated levophed and vasopressin to maintain MAP of >65. Withdraws to painful stimuli. Does not follow commands. Action: Medication administered as ordered and labs drawn. Turned q2hrs and bathed. Response: Will continue to monitor. Kathy Saab RN 03/18/2019 3:54 * Plan of Care - Meenakshi Moscoso RN - 03/17/2019 1521 EDT Data: Pt transferred from [facility] this morning for rapid a-fib and acute hypoxic respiratory failure. Pt arrived intubated and sedated on Propofol and Levophed @ 20mcg/min. Pt was on 100% fio2 Peep of 10 and was extremely acidotic c Bicarb 15 requiring a total of 3 amps of bicarb. Levophed titrated up to 30mcg/min still not meeting goal maps of 65 and Vasopressin added at .04 units/hr initially then titrated up to .06uinits/hr. Pt also given Lasix and Indapamide to maximize respiratory status along with Flolan.Pt does remain in a- fib c HR elevated in the 110 to 140 range as Propofol is titrated down. Dr. Kilgore aware. Pt also received one dose of IV Olanzipine per Dr. Kilgore in an at tempt to titrate down propofol. Action: Continue to monitor and maintain adequate hemodynamics and fluid/respiratory status.TitratePressors for goal map>65. Maintain adequate level of sedation. Monitor labs as ordered. Continuec IV antibx as ordered. Response: Levophed and Propofol now off, Fio2 down to 80 % Peep 12. Scheduled Lasix just ordered and pt is having adequate u/o but would like fluid goal to be slightly negative. 1628: Pt woke up off Propofol agitated in bed SAGE x4, lifting head off bed.Guppy breathing on vent c RR 36. Propofol restarted and a prn dose of 50mcg IV Fentanyl given. Pt then tanked systolic b/p in the 60's. Dr. Kilgore called to [facility] and ordered Epi gtt which was started at 5mcg/min. Pt now off Epi, Levophed back on @ 30mcg/min. High dose Ketamine gtt to start per Dr. Kilgore when available per pharmacy due to liable hemodynamics. Meenakshi Moscoso RN 03/17/2019 15:21 documented in this encounter Plan of Treatment Pending Results Name Type Priority Associated Diagnoses Date /Time OUTSIDE IMAGES - OTHER CHEST Imaging 03/17/2019 8:27 EDT OUTSIDE IMAGES - CT CHEST Imaging 03/17/2019 8:27 EDT OUTSIDE IMAGES - US BODY Imaging 03/17/2019 8:27 EDT OUTSIDE IMAGES - OTHER CHEST Imaging 03/17/2019 8:27 EDT Scheduled Orders Name Type Priority Associated Diagnoses Orde r Schedule SURGICAL PATHOLOGY- ORDER ONLY Pathology Routine One Time for 1 Occurrences starting 03/21/2019 until 03/21/2019 Scheduled Referrals Name Type Priority Associated Diagnoses Order Schedule PROVIDER FOLLOW-UP INSTRUCTIONS Outpatient Referral Routine Ordered: 04/23/2019 PROVIDER FOLLOW-UP INSTRUCTIONS Outpatient Referral Routine Ordered: 04/23/2019 PROVIDER FOLLOW-UP INSTRUCTIONS Outpatient Referral Routine Ordered: 04/23/2019 PROVIDER FOLLOW-UP INSTRUCTIONS Outpatient Referral Routine Ordered: 04/23/2019 documented as of this encounter Procedures Procedure Name Priority Date/Time Associated Diagnosis Comments TRANSFUSION RECORD - SCANNED 04/30/2019 9:21 EDT ECG REPORT - SCANNED 04/30/2019 9:21 EDT ECG REPORT - SCANNED 04/30/2019 9:21 EDT NEBULIZER TX INTERMITTENT Routine 04/23/2019 0:05 EDT COMPLETE BLOOD COUNT Routine 04/22/2019 4:40 EDT PHOSPHORUS Routine 04/22/2019 4:40 EDT MAGNESIUM Routine 04/22/2019 4:40 EDT CREATININE Routine 04/22/2019 4:40 EDT CALCIUM Routine 04/22/2019 4:40 EDT ELECTROLYTES Routine 04/22/2019 4:40 EDT NEBULIZER TX INTERMITTENT Routine 04/22/2019 0:05 EDT NEBULIZER TX INTERMITTENT Routine 04/22/2019 0:05 EDT NEBULIZER TX INTERMITTENT Routine 04/21/2019 10:14 EDT COMPLETE BLOOD COUNT Routine 04/20/2019 5:29 EDT PHOSPHORUS Routine 04/20/2019 5:29 EDT MAGNESIUM Routine 04/20/2019 5:29 EDT CREATININE Routine 04/20/2019 5:29 EDT CALCIUM Routine 04/20/2019 5:29 EDT ELECTROLYTES Routine 04/20/2019 5:29 EDT RESPIRATORY CARE EVALUATION ONLY Routine 04/20/2019 0:05 EDT RESPIRATORY CARE EVALUATION ONLY Routine 04/20/2019 0:05 EDT RESPIRATORY CARE EVALUATION ONLY Routine 04/20/2019 0:05 EDT RESPIRATORY CARE EVALUATION ONLY Routine 04/20/2019 0:05 EDT NEBULIZER TX INTERMITTENT Routine 04/20/2019 0:05 EDT NEBULIZER TX INTERMITTENT Routine 04/20/2019 0:05 EDT NEBULIZER TX INTERMITTENT Routine 04/20/2019 0:05 EDT RESPIRATORY CARE EVALUATION ONLY Routine 04/19/2019 12:17 EDT RESPIRATORY CARE EVALUATION ONLY Routine 04/19/2019 12:17 EDT RESPIRATORY CARE EVALUATION ONLY Routine 04/19/2019 12:17 EDT RESPIRATORY CARE EVALUATION ONLY Routine 04/19/2019 0:05 EDT RESPIRATORY CARE EVALUATION ONLY Routine 04/19/2019 0:05 EDT NEBULIZER TX INTERMITTENT Routine 04/19/2019 0:05 EDT NEBULIZER TX INTERMITTENT Routine 04/19/2019 0:05 EDT NEBULIZER TX INTERMITTENT Routine 04/19/2019 0:05 EDT CHEST PA AND LATERAL Routine 04/18/2019 9:20 EDT NEBULIZER TX INTERMITTENT Routine 04/18/2019 9:19 EDT NEBULIZER TX INTERMITTENT Routine 04/18/2019 9:19 EDT COMPLETE BLOOD COUNT Routine 04/18/2019 5:31 EDT PHOSPHORUS Routine 04/18/2019 5:31 EDT MAGNESIUM Routine 04/18/2019 5:31 EDT CREATININE Routine 04/18/2019 5:31 EDT CALCIUM Routine 04/18/2019 5:31 EDT ELECTROLYTES Routine 04/18/2019 5:31 EDT RESPIRATORY CARE EVALUATION ONLY Routine 04/18/2019 0:05 EDT RESPIRATORY CARE EVALUATION ONLY Routine 04/18/2019 0:05 EDT RESPIRATORY CARE EVALUATION ONLY Routine 04/18/2019 0:05 EDT RESPIRATORY CARE EVALUATION ONLY Routine 04/18/2019 0:05 EDT RESPIRATORY CARE EVALUATION ONLY Routine 04/18/2019 0:05 EDT RESPIRATORY CARE EVALUATION ONLY Routine 04/18/2019 0:05 EDT RESPIRATORY CARE EVALUATION ONLY Routine 04/17/2019 0:05 EDT RESPIRATORY CARE EVALUATION ONLY Routine 04/17/2019 0:05 EDT RESPIRATORY CARE EVALUATION ONLY Routine 04/17/2019 0:05 EDT RESPIRATORY CARE EVALUATION ONLY Routine 04/17/2019 0:05 EDT RESPIRATORY CARE EVALUATION ONLY Routine 04/17/2019 0:05 EDT RESPIRATORY CARE EVALUATION ONLY Routine 04/17/2019 0:05 EDT RESPIRATORY CARE EVALUATION ONLY Routine 04/16/2019 15:35 EDT RESPIRATORY CARE EVALUATION ONLY Routine 04/16/2019 15:35 EDT RESPIRATORY CARE EVALUATION ONLY Routine 04/16/2019 15:35 EDT INPATIENT ADD-ON Routine 04/16/2019 11:1 0 EDT ECG REPORT - SCANNED 04/16/2019 8:29 EDT IBC Routine 04/16/2019 5:02 EDT COMPLETE BLOOD COUNT Routine 04/16/2019 5:02 EDT PHOSPHORUS Routine 04/16/2019 5:02 EDT MAGNESIUM Routine 04/16/2019 5:02 EDT IRON Routine 04/16/2019 5:02 EDT FERRITIN Routine 04/16/2019 5:02 EDT CREATININE Routine 04/16/2019 5:02 EDT CALCIUM Routine 04/16/2019 5:02 EDT ELECTROLYTES Routine 04/16/2019 5:02 EDT RESPIRATORY CARE EVALUATION ONLY Routine 04/16/2019 0:05 EDT RESPIRATORY CARE EVALUATION ONLY Routine 04/16/2019 0:05 EDT RESPIRATORY CARE EVALUATION ONLY Routine 04/16/2019 0:05 EDT RESPIRATORY CARE EVALUATION ONLY Routine 04/16/2019 0:05 EDT RESPIRATORY CARE EVALUATION ONLY Routine 04/15/2019 0:05 EDT RESPIRATORY CARE EVALUATION ONLY Routine 04/14/2019 18:00 EDT RESPIRATORY CARE EVALUATION ONLY Routine 04/14/2019 14:00 EDT RESPIRATORY CARE EVALUATION ONLY Routine 04/14/2019 10:00 EDT RESPIRATORY CARE EVALUATION ONLY Routine 04/14/2019 6:00 EDT COMPLETE BLOOD COUNT Routine 04/14/2019 4:29 EDT PHOSPHORUS Routine 04/14/2019 4:29 EDT MAGNESIUM Routine 04/14/2019 4:29 EDT CREATININE Routine 04/14/2019 4:29 EDT CALCIUM Routine 04/14/2019 4:29 EDT ELECTROLYTES Routine 04/14/2019 4:29 EDT RESPIRATORY CARE EVALUATION ONLY Routine 04/14/2019 2:00 EDT RESPIRATORY CARE EVALUATION ONLY Routine 04/14/2019 0:05 EDT RESPIRATORY CARE EVALUATION ONLY Routine 04/14/2019 0:05 EDT RESPIRATORY CARE EVALUATION ONLY Routine 04/14/2019 0:05 EDT RESPIRATORY CARE EVALUATION ONLY Routine 04/14/2019 0:05 EDT RESPIRATORY CARE EVALUATION ONLY Routine 04/14/2019 0:05 EDT RESPIRATORY CARE EVALUATION ONLY Routine 04/14/2019 0:05 EDT AIRWAY CLEARANCE THERAPY Routine 04/13/2019 5:53 EDT AIRWAY CLEARANCE THERAPY Routine 04/13/2019 5:53 EDT AIRWAY CLEARANCE THERAPY Routine 04/13/2019 5:53 EDT PORTABLE CHEST 1 VIEW STAT 04/13/2019 3:14 EDT HOLD SST Routine 04/13/2019 2:24 EDT HOLD LAVENDER TOP Routine 04/13/2019 2:2 4 EDT HOLD GREEN TOP Routine 04/13/2019 2:24 EDT HOLD BLUE TOP Routine 04/13/2019 2:24 EDT ZZBLOOD GAS, G3 ISTAT Routine 04/13/2019 2:00 EDT NEBULIZER TX INTERMITTENT Routine 04/13/2019 1:38 EDT NEBULIZER TX INTERMITTENT Routine 04/13/2019 1:38 EDT BACTERIAL CULTURE/SMEAR, RESPIRATORY Routine 04/13/2019 0:40 EDT RESPIRATORY CARE EVALUATION ONLY Routine 04/13/2019 0:05 EDT RESPIRATORY CARE EVALUATION ONLY Routine 04/13/2019 0:05 EDT BACTERIAL CULTURE, BLOOD Routine 04/12/2019 19:37 EDT BACTERIAL CULTURE, BLOOD Routine 04/12/2019 18:35 EDT RESPIRATORY CARE EVALUATION ONLY Routine 04/12/2019 14:00 EDT RESPIRATORY CARE EVALUATION ONLY Routine 04/12/2019 12:24 EDT RESPIRATORY CARE EVALUATION ONLY Routine 04/12/2019 12:24 EDT RESPIRATORY CARE EVALUATION ONLY Routine 04/12/2019 12:24 EDT RESPIRATORY CARE EVALUATION ONLY Routine 04/12/2019 12:24 EDT RESPIRATORY CARE EVALUATION ONLY Routine 04/12/2019 12:24 EDT RESPIRATORY CARE EVALUATION ONLY Routine 04/12/2019 12:24 EDT COMPLETE BLOOD COUNT Routine 04/12/2019 4:48 EDT PHOSPHORUS Routine 04/12/2019 4:48 EDT MAGNESIUM Routine 04/12/2019 4:48 EDT CREATININE Routine 04/12/2019 4:48 EDT CALCIUM Routine 04/12/2019 4:48 EDT ELECTROLYTES Routine 04/12/2019 4:48 EDT MRSA PCR Routine 04/10/2019 9:31 EDT COMPLETE BLOOD COUNT Routine 04/10/2019 4:04 EDT PHOSPHORUS Routine 04/10/2019 4:04 EDT MAGNESIUM Routine 04/10/2019 4:04 EDT CREATININE Routine 04/10/2019 4:04 EDT CALCIUM Routine 04/10/2019 4:04 EDT ELECTROLYTES Routine 04/10/2019 4:04 EDT COMPLETE BLOOD COUNT Routine 04/09/2019 4:21 EDT PHOSPHORUS Routine 04/09/2019 4:21 EDT MAGNESIUM Routine 04/09/2019 4:21 EDT CREATININE Routine 04/09/2019 4:21 EDT CALCIUM Routine 04/09/2019 4:21 EDT ELECTROLYTES Routine 04/09/2019 4:21 EDT UA CHEMICAL ONLY Routine 04/08/2019 20:4 1 EDT URINE CULTURE IF POSITIVE Routine 04/08/2019 20:41 EDT BACTERIAL CULTURE, URINE Routine 04/08/2019 20:41 EDT PORTABLE CHEST 1 VIEW Routine 04/08/2019 19:21 EDT BACTERIAL CULTURE, BLOOD Routine 04/08/2019 19:17 EDT BACTERIAL CULTURE, BLOOD Routine 04/08/2019 19:04 EDT BACTERIAL CULTURE, BLOOD Routine 04/08/2019 18:59 EDT COMPLETE BLOOD COUNT Routine 04/08/2019 5:28 EDT PHOSPHORUS Routine 04/08/2019 5:28 EDT MAGNESIUM Routine 04/08/2019 5:28 EDT CREATININE Routine 04/08/2019 5:28 EDT CALCIUM Routine 04/08/2019 5:28 EDT ELECTROLYTES Routine 04/08/2019 5:28 EDT GLUCOSE, GLUCOMETER Routine 04/07/2019 1 1:20 EDT TYPE AND SCREEN STAT 04/07/2019 6:22 EDT PREPARE RED BLOOD CELLS Routine 04/07/2019 5:26 EDT COMPLETE BLOOD COUNT Routine 04/07/2019 4:48 EDT PHOSPHORUS Routine 04/07/2019 4:48 EDT MAGNESIUM Routine 04/07/2019 4:48 EDT CREATININE Routine 04/07/2019 4:48 EDT CALCIUM Routine 04/07/2019 4:48 EDT ELECTROLYTES Routine 04/07/2019 4:48 EDT INSERT PICC LINE Routine 04/06/2019 16:1 2 EDT PORTABLE CHEST 1 VIEW STAT 04/06/2019 8:46 EDT COMPLETE BLOOD COUNT Routine 04/06/2019 3:03 EDT PHOSPHORUS Routine 04/06/2019 3:03 EDT MAGNESIUM Routine 04/06/2019 3:03 EDT CREATININE Routine 04/06/2019 3:03 EDT CALCIUM Routine 04/06/2019 3:03 EDT ELECTROLYTES Routine 04/06/2019 3:03 EDT ECG REPORT - SCANNED 04/05/2019 8:44 EDT COMPLETE BLOOD COUNT Routine 04/05/2019 5:39 EDT PHOSPHORUS Routine 04/05/2019 5:39 EDT MAGNESIUM Routine 04/05/2019 5:39 EDT CREATININE Routine 04/05/2019 5:39 EDT CALCIUM Routine 04/05/2019 5:39 EDT ELECTROLYTES Routine 04/05/2019 5:39 EDT GLUCOSE, GLUCOMETER Routine 04/05/2019 5 :36 EDT GLUCOSE, GLUCOMETER Routine 04/04/2019 2 3:31 EDT GLUCOSE, GLUCOMETER Routine 04/04/2019 1 8:31 EDT GLUCOSE, GLUCOMETER Routine 04/04/2019 1 1:51 EDT GLUCOSE, GLUCOMETER Routine 04/04/2019 6 :23 EDT COMPLETE BLOOD COUNT Routine 04/04/2019 4:01 EDT PHOSPHORUS Routine 04/04/2019 4:01 EDT MAGNESIUM Routine 04/04/2019 4:01 EDT CREATININE Routine 04/04/2019 4:01 EDT CALCIUM Routine 04/04/2019 4:01 EDT ELECTROLYTES Routine 04/04/2019 4:01 EDT GLUCOSE, GLUCOMETER Routine 04/03/2019 2 3:50 EDT GLUCOSE, GLUCOMETER Routine 04/03/2019 1 8:10 EDT GLUCOSE, GLUCOMETER Routine 04/03/2019 1 1:50 EDT GLUCOSE, GLUCOMETER Routine 04/03/2019 5 :09 EDT COMPLETE BLOOD COUNT Routine 04/03/2019 4:01 EDT PHOSPHORUS Routine 04/03/2019 4:01 EDT MAGNESIUM Routine 04/03/2019 4:01 EDT CREATININE Routine 04/03/2019 4:01 EDT CALCIUM Routine 04/03/2019 4:01 EDT ELECTROLYTES Routine 04/03/2019 4:01 EDT GLUCOSE, GLUCOMETER Routine 04/02/2019 2 3:39 EDT ELECTROLYTES Routine 04/02/2019 17:50 EDT GLUCOSE, GLUCOMETER Routine 04/02/2019 1 7:10 EDT GLUCOSE, GLUCOMETER Routine 04/02/2019 1 1:57 EDT GLUCOSE, GLUCOMETER Routine 04/02/2019 6 :17 EDT COMPLETE BLOOD COUNT Routine 04/02/2019 2:06 EDT PHOSPHORUS Routine 04/02/2019 2:06 EDT MAGNESIUM Routine 04/02/2019 2:06 EDT CREATININE Routine 04/02/2019 2:06 EDT CALCIUM Routine 04/02/2019 2:06 EDT ELECTROLYTES Routine 04/02/2019 2:06 EDT GLUCOSE, GLUCOMETER Routine 04/01/2019 2 3:55 EDT MAGNESIUM STAT 04/01/2019 20:30 EDT CREATININE STAT 04/01/2019 20:30 EDT ELECTROLYTES STAT 04/01/2019 20:30 EDT GLUCOSE, GLUCOMETER Routine 04/01/2019 1 7:57 EDT GLUCOSE, GLUCOMETER Routine 04/01/2019 1 1:24 EDT COMPLETE BLOOD COUNT Routine 04/01/2019 5:12 EDT PHOSPHORUS Routine 04/01/2019 5:12 EDT MAGNESIUM Routine 04/01/2019 5:12 EDT CREATININE Routine 04/01/2019 5:12 EDT CALCIUM Routine 04/01/2019 5:12 EDT ELECTROLYTES Routine 04/01/2019 5:12 EDT GLUCOSE, GLUCOMETER Routine 04/01/2019 5 :10 EDT GLUCOSE, GLUCOMETER Routine 03/31/2019 2 3:46 EDT GLUCOSE, GLUCOMETER Routine 03/31/2019 1 7:21 EDT COMPLETE BLOOD COUNT Routine 03/31/2019 17:12 EDT ELECTROLYTES Routine 03/31/2019 17:12 EDT GLUCOSE, GLUCOMETER Routine 03/31/2019 1 2:20 EDT COMPLETE BLOOD COUNT Routine 03/31/2019 5:07 EDT TRIGLYCERIDE Routine 03/31/2019 5:07 EDT PHOSPHORUS Routine 03/31/2019 5:07 EDT MAGNESIUM Routine 03/31/2019 5:07 EDT CREATININE Routine 03/31/2019 5:07 EDT CALCIUM Routine 03/31/2019 5:07 EDT ELECTROLYTES Routine 03/31/2019 5:07 EDT GLUCOSE, GLUCOMETER Routine 03/31/2019 5 :06 EDT GLUCOSE, GLUCOMETER Routine 03/30/2019 2 3:05 EDT COMPLETE BLOOD COUNT Routine 03/30/2019 16:55 EDT ELECTROLYTES Routine 03/30/2019 16:55 EDT GLUCOSE, GLUCOMETER Routine 03/30/2019 1 6:54 EDT GLUCOSE, GLUCOMETER Routine 03/30/2019 1 2:18 EDT GLUCOSE, GLUCOMETER Routine 03/30/2019 5 :56 EDT COMPLETE BLOOD COUNT Routine 03/30/2019 3:54 EDT PHOSPHORUS Routine 03/30/2019 3:54 EDT MAGNESIUM Routine 03/30/2019 3:54 EDT CREATININE Routine 03/30/2019 3:54 EDT CALCIUM Routine 03/30/2019 3:54 EDT ELECTROLYTES Routine 03/30/2019 3:54 EDT GLUCOSE, GLUCOMETER Routine 03/29/2019 2 3:05 EDT GLUCOSE, GLUCOMETER Routine 03/29/2019 1 7:[address] CHEST (PE) PROTOCOL W CONTRAST STAT 03/29/2019 16:58 EDT COMPLETE BLOOD COUNT Routine 03/29/2019 15:31 EDT ELECTROLYTES Routine 03/29/2019 15:31 EDT PORTABLE CHEST 1 VIEW STAT 03/29/2019 14:36 EDT ZZBLOOD GAS, G3 ISTAT Routine 03/29/2019 14:22 EDT GLUCOSE, GLUCOMETER Routine 03/29/2019 1 1:28 EDT GLUCOSE, GLUCOMETER Routine 03/29/2019 5 :35 EDT PROCALCITONIN Routine 03/29/2019 4:23 EDT COMPLETE BLOOD COUNT Routine 03/29/2019 4:23 EDT PHOSPHORUS Routine 03/29/2019 4:23 EDT MAGNESIUM Routine 03/29/2019 4:23 EDT CREATININE Routine 03/29/2019 4:23 EDT CALCIUM Routine 03/29/2019 4:23 EDT ELECTROLYTES Routine 03/29/2019 4:23 EDT GLUCOSE, GLUCOMETER Routine 03/28/2019 2 3:52 EDT ELECTROLYTES Routine 03/28/2019 22:39 EDT GLUCOSE, GLUCOMETER Routine 03/28/2019 1 7:50 EDT XRAY FEEDING TUBE PLACEMENT Routine 03/28/2019 15:56 EDT TRANSFUSE RED BLOOD CELLS Routine 03/28/2019 15:19 EDT PREPARE RED BLOOD CELLS Routine 03/28/2019 14:37 EDT GLUCOSE, GLUCOMETER Routine 03/28/2019 1 3:58 EDT PORTABLE CHEST 1 VIEW STAT 03/28/2019 13:50 EDT COMPLETE BLOOD COUNT Routine 03/28/2019 13:26 EDT ELECTROLYTES Routine 03/28/2019 13:26 EDT TRANSFUSION RECORD - SCANNED 03/28/2019 8:45 EDT GLUCOSE, GLUCOMETER Routine 03/28/2019 6 :16 EDT COMPLETE BLOOD COUNT Routine 03/28/2019 2:08 EDT TRIGLYCERIDE Routine 03/28/2019 2:08 EDT PHOSPHORUS Routine 03/28/2019 2:08 EDT MAGNESIUM Routine 03/28/2019 2:08 EDT CREATININE Routine 03/28/2019 2:08 EDT CALCIUM Routine 03/28/2019 2:08 EDT ELECTROLYTES Routine 03/28/2019 2:08 EDT GLUCOSE, GLUCOMETER Routine 03/27/2019 2 3:29 EDT ELECTROLYTES Routine 03/27/2019 20:16 EDT GLUCOSE, GLUCOMETER Routine 03/27/2019 1 7:44 EDT COMPLETE BLOOD COUNT Routine 03/27/2019 13:42 EDT TRIGLYCERIDE Routine 03/27/2019 13:42 EDT ELECTROLYTES Routine 03/27/2019 13:42 EDT GLUCOSE, GLUCOMETER Routine 03/27/2019 1 2:14 EDT TRANSFUSE RED BLOOD CELLS Routine 03/27/2019 7:30 EDT INPATIENT ADD-ON Routine 03/27/2019 7:10 EDT MRSA PCR Routine 03/27/2019 6:00 EDT TYPE AND SCREEN Routine 03/27/2019 6:00 EDT PREPARE RED BLOOD CELLS Routine 03/27/2019 5:47 EDT GLUCOSE, GLUCOMETER Routine 03/27/2019 4 :57 EDT PROCALCITONIN Routine 03/27/2019 4:52 EDT COMPLETE BLOOD COUNT Routine 03/27/2019 4:52 EDT TSH Routine 03/27/2019 4:52 EDT PHOSPHORUS Routine 03/27/2019 4:52 EDT MAGNESIUM Routine 03/27/2019 4:52 EDT CREATININE Routine 03/27/2019 4:52 EDT CALCIUM Routine 03/27/2019 4:52 EDT ELECTROLYTES Routine 03/27/2019 4:52 EDT GLUCOSE, GLUCOMETER Routine 03/27/2019 0 :55 EDT ELECTROLYTES Routine 03/26/2019 22:22 EDT GLUCOSE, GLUCOMETER Routine 03/26/2019 1 7:54 EDT ELECTROLYTES Routine 03/26/2019 16:09 EDT ZZBLOOD GAS, G3 ISTAT Routine 03/26/2019 15:06 EDT LACTIC ACID STAT 03/26/2019 15:04 EDT GLUCOSE, GLUCOMETER Routine 03/26/2019 1 2:[address] CHEST W CONTRAST Routine 03/26/2019 1 1:[address] ABDOMEN, PELVIS W/WO CONTRAST STAT 03/26/2019 11:29 EDT BACTERIAL CULTURE, BLOOD Routine 03/26/2019 10:20 EDT INPATIENT ADD-ON Routine 03/26/2019 10:0 5 EDT ELECTROLYTES Routine 03/26/2019 10:00 EDT ECHOCARDIOGRAM Routine 03/26/2019 9:55 EDT PORTABLE CHEST 1 VIEW Routine 03/26/2019 6:30 EDT GLUCOSE, GLUCOMETER Routine 03/26/2019 5 :09 EDT PROCALCITONIN Routine 03/26/2019 3:01 EDT COMPLETE BLOOD COUNT Routine 03/26/2019 3:01 EDT PHOSPHORUS Routine 03/26/2019 3:01 EDT MAGNESIUM Routine 03/26/2019 3:01 EDT CREATININE Routine 03/26/2019 3:01 EDT CALCIUM Routine 03/26/2019 3:01 EDT ELECTROLYTES Routine 03/26/2019 3:01 EDT GLUCOSE, GLUCOMETER Routine 03/25/2019 2 3:01 EDT GLUCOSE, GLUCOMETER Routine 03/25/2019 1 7:10 EDT MAGNESIUM STAT 03/25/2019 17:01 EDT ELECTROLYTES STAT 03/25/2019 17:01 EDT GLUCOSE, GLUCOMETER Routine 03/25/2019 1 1:26 EDT ELECTROLYTES Routine 03/25/2019 9:17 EDT ZZBLOOD GAS, G3 ISTAT Routine 03/25/2019 6:01 EDT GLUCOSE, GLUCOMETER Routine 03/25/2019 5 :09 EDT COMPLETE BLOOD COUNT Routine 03/25/2019 3:21 EDT TRIGLYCERIDE Routine 03/25/2019 3:21 EDT PHOSPHORUS Routine 03/25/2019 3:21 EDT MAGNESIUM Routine 03/25/2019 3:21 EDT CREATININE Routine 03/25/2019 3:21 EDT CALCIUM Routine 03/25/2019 3:21 EDT ELECTROLYTES Routine 03/25/2019 3:21 EDT GLUCOSE, GLUCOMETER Routine 03/24/2019 2 3:43 EDT ZZBLOOD GAS, G3 ISTAT Routine 03/24/2019 21:06 EDT COMPLETE BLOOD COUNT STAT 03/24/2019 19:19 EDT COMPLETE BLOOD COUNT Routine 03/24/2019 18:40 EDT ELECTROLYTES Routine 03/24/2019 18:40 EDT GLUCOSE, GLUCOMETER Routine 03/24/2019 1 8:00 EDT INSERT PICC LINE Routine 03/24/2019 16:5 9 EDT PORTABLE CHEST PA CENTRAL LINE/PICC/ET TUBE,INITIAL INSERTION STAT 03/24/2019 16:56 EDT Acute respiratory failure with hypoxia ([facility]-CMS) ELECTROLYTES Routine 03/24/2019 14:21 EDT GLUCOSE, GLUCOMETER Routine 03/24/2019 1 1:51 EDT ZZBLOOD GAS, G3 ISTAT Routine 03/24/2019 10:06 EDT INPATIENT ADD-ON Routine 03/24/2019 9:30 EDT PORTABLE CHEST 1 VIEW STAT 03/24/2019 8:26 EDT ZZBLOOD GAS, G3 ISTAT Routine 03/24/2019 8:26 EDT INPATIENT ADD-ON Routine 03/24/2019 6:45 EDT GLUCOSE, GLUCOMETER Routine 03/24/2019 6 :00 EDT COMPLETE BLOOD COUNT Routine 03/24/2019 6:00 EDT BUN Routine 03/24/2019 6:00 EDT PHOSPHORUS Routine 03/24/2019 6:00 EDT MAGNESIUM Routine 03/24/2019 6:00 EDT CREATININE Routine 03/24/2019 6:00 EDT CALCIUM Routine 03/24/2019 6:00 EDT ELECTROLYTES Routine 03/24/2019 6:00 EDT GLUCOSE, GLUCOMETER Routine 03/23/2019 2 3:50 EDT ELECTROLYTES Routine 03/23/2019 23:40 EDT COMPLETE BLOOD COUNT Routine 03/23/2019 18:24 EDT ELECTROLYTES Routine 03/23/2019 18:24 EDT GLUCOSE, GLUCOMETER Routine 03/23/2019 1 7:56 EDT GLUCOSE, GLUCOMETER Routine 03/23/2019 1 3:10 EDT INSERT PICC LINE Routine 03/23/2019 9:28 EDT GLUCOSE, GLUCOMETER Routine 03/23/2019 6 :21 EDT COMPLETE BLOOD COUNT Routine 03/23/2019 6:15 EDT PHOSPHORUS Routine 03/23/2019 6:15 EDT MAGNESIUM Routine 03/23/2019 6:15 EDT CREATININE Routine 03/23/2019 6:15 EDT CALCIUM Routine 03/23/2019 6:15 EDT ELECTROLYTES Routine 03/23/2019 6:15 EDT GLUCOSE, GLUCOMETER Routine 03/23/2019 0 :21 EDT ELECTROLYTES Routine 03/22/2019 19:59 EDT GLUCOSE, GLUCOMETER Routine 03/22/2019 1 8:27 EDT GLUCOSE, GLUCOMETER Routine 03/22/2019 1 1:50 EDT COMPLETE BLOOD COUNT Routine 03/22/2019 9:26 EDT MAGNESIUM Routine 03/22/2019 9:26 EDT ELECTROLYTES Routine 03/22/2019 9:26 EDT GLUCOSE, GLUCOMETER Routine 03/22/2019 6 :10 EDT COMPLETE BLOOD COUNT Routine 03/22/2019 4:25 EDT PHOSPHORUS Routine 03/22/2019 4:25 EDT CREATININE Routine 03/22/2019 4:25 EDT CALCIUM Routine 03/22/2019 4:25 EDT GLUCOSE, GLUCOMETER Routine 03/22/2019 3 :06 EDT GLUCOSE, GLUCOMETER Routine 03/22/2019 1 :00 EDT GLUCOSE, GLUCOMETER Routine 03/22/2019 0 :02 EDT COMPLETE BLOOD COUNT Routine 03/21/2019 23:16 EDT MAGNESIUM Routine 03/21/2019 23:16 EDT ELECTROLYTES Routine 03/21/2019 23:16 EDT GLUCOSE, GLUCOMETER Routine 03/21/2019 2 3:02 EDT GLUCOSE, GLUCOMETER Routine 03/21/2019 2 2:04 EDT GLUCOSE, GLUCOMETER Routine 03/21/2019 2 1:13 EDT GLUCOSE, GLUCOMETER Routine 03/21/2019 1 9:59 EDT GLUCOSE, GLUCOMETER Routine 03/21/2019 1 9:02 EDT GLUCOSE, GLUCOMETER Routine 03/21/2019 1 8:03 EDT PTT Routine 03/21/2019 17:18 EDT FIBRINOGEN Routine 03/21/2019 17:18 EDT D-DIMER Routine 03/21/2019 17:18 EDT COMPLETE BLOOD COUNT Routine 03/21/2019 17:18 EDT MAGNESIUM Routine 03/21/2019 17:18 EDT ELECTROLYTES Routine 03/21/2019 17:18 EDT GLUCOSE, GLUCOMETER Routine 03/21/2019 1 7:04 EDT SURGICAL PATHOLOGY Routine 03/21/2019 16 :23 EDT GLUCOSE, GLUCOMETER Routine 03/21/2019 1 6:05 EDT GLUCOSE, GLUCOMETER Routine 03/21/2019 1 4:59 EDT XRAY FEEDING TUBE PLACEMENT Routine 03/21/2019 14:19 EDT GLUCOSE, GLUCOMETER Routine 03/21/2019 1 3:53 EDT GLUCOSE, GLUCOMETER Routine 03/21/2019 1 1:26 EDT PTT Routine 03/21/2019 11:22 EDT FIBRINOGEN Routine 03/21/2019 11:22 EDT D-DIMER Routine 03/21/2019 11:22 EDT COMPLETE BLOOD COUNT Routine 03/21/2019 11:22 EDT MAGNESIUM Routine 03/21/2019 11:22 EDT ELECTROLYTES Routine 03/21/2019 11:22 EDT LACTIC ACID Routine 03/21/2019 11:21 EDT ECG REPORT - SCANNED 03/21/2019 7:21 EDT GLUCOSE, GLUCOMETER Routine 03/21/2019 6 :14 EDT PTT Routine 03/21/2019 4:43 EDT FIBRINOGEN Routine 03/21/2019 4:43 EDT D-DIMER Routine 03/21/2019 4:43 EDT COMPLETE BLOOD COUNT Routine 03/21/2019 4:43 EDT MAGNESIUM Routine 03/21/2019 4:43 EDT ELECTROLYTES Routine 03/21/2019 4:43 EDT LACTIC ACID Routine 03/21/2019 1:15 EDT PTT Routine 03/21/2019 1:15 EDT FIBRINOGEN Routine 03/21/2019 1:15 EDT D-DIMER Routine 03/21/2019 1:15 EDT COMPLETE BLOOD COUNT Routine 03/21/2019 1:15 EDT PHOSPHORUS Routine 03/21/2019 1:15 EDT MAGNESIUM Routine 03/21/2019 1:15 EDT CREATININE Routine 03/21/2019 1:15 EDT CALCIUM Routine 03/21/2019 1:15 EDT ELECTROLYTES Routine 03/21/2019 1:15 EDT GLUCOSE, GLUCOMETER Routine 03/21/2019 1 :14 EDT UPPER ENDOSCOPY PROCEDURE Routine 03/21/2019 TRANSFUSE RED BLOOD CELLS Routine 03/20/2019 22:30 EDT SLIDE REQUEST Routine 03/20/2019 21:15 EDT LACTIC ACID Routine 03/20/2019 21:15 EDT COMPLETE BLOOD COUNT Routine 03/20/2019 21:15 EDT MAGNESIUM Routine 03/20/2019 21:15 EDT BACTERIAL CULTURE, BLOOD STAT 03/20/2019 20:36 EDT PREPARE RED BLOOD CELLS Routine 03/20/2019 19:54 EDT TRANSFUSE RED BLOOD CELLS Routine 03/20/2019 19:52 EDT TRANSFUSE RED BLOOD CELLS Routine 03/20/2019 18:35 EDT TRANSFUSE PLATELETS Routine 03/20/2019 1 8:15 EDT ABO/RH STAT 03/20/2019 17:37 EDT PREPARE PLATELETS Routine 03/20/2019 17: 36 EDT PTT Routine 03/20/2019 17:34 EDT PROTIME Routine 03/20/2019 17:34 EDT FIBRINOGEN Routine 03/20/2019 17:34 EDT PREPARE RED BLOOD CELLS Routine 03/20/2019 17:34 EDT PREPARE RED BLOOD CELLS STAT 03/20/2019 17:34 EDT TYPE AND SCREEN STAT 03/20/2019 17:18 EDT GLUCOSE, GLUCOMETER Routine 03/20/2019 1 6:54 EDT RAD US DOPPLER LOWER EXTREMITY VENOUS BILATERAL Routine 03/20/2019 16:47 EDT COMPLETE BLOOD COUNT STAT 03/20/2019 16:46 EDT ZZBLOOD GAS, G3 ISTAT Routine 03/20/2019 15:01 EDT ZZBLOOD GAS, G3 ISTAT Routine 03/20/2019 14:56 EDT MAGNESIUM Routine 03/20/2019 14:42 EDT ELECTROLYTES Routine 03/20/2019 14:42 EDT PORTABLE CHEST 1 VIEW STAT 03/20/2019 14:15 EDT GLUCOSE, GLUCOMETER Routine 03/20/2019 1 1:42 EDT BACTERIAL CULTURE/SMEAR, RESPIRATORY Routine 03/20/2019 11:30 EDT AIRWAY CLEARANCE THERAPY Routine 03/20/2019 11:26 EDT AIRWAY CLEARANCE THERAPY Routine 03/20/2019 11:26 EDT INPATIENT ADD-ON Routine 03/20/2019 10:2 5 EDT ELECTROLYTES Routine 03/20/2019 10:06 EDT GLUCOSE, GLUCOMETER Routine 03/20/2019 6 :39 EDT COMPLETE BLOOD COUNT AND DIFFERENTIAL Routine 03/20/2019 4:30 EDT PHOSPHORUS Routine 03/20/2019 4:30 EDT MAGNESIUM Routine 03/20/2019 4:30 EDT CREATININE Routine 03/20/2019 4:30 EDT CALCIUM Routine 03/20/2019 4:30 EDT ELECTROLYTES Routine 03/20/2019 4:30 EDT MRSA PCR Routine 03/20/2019 4:25 EDT GLUCOSE, GLUCOMETER Routine 03/19/2019 2 3:38 EDT ELECTROLYTES Routine 03/19/2019 21:10 EDT GLUCOSE, GLUCOMETER Routine 03/19/2019 1 7:23 EDT PHOSPHORUS Routine 03/19/2019 14:24 EDT MAGNESIUM Routine 03/19/2019 14:24 EDT CALCIUM Routine 03/19/2019 14:24 EDT ELECTROLYTES Routine 03/19/2019 14:24 EDT GLUCOSE, GLUCOMETER Routine 03/19/2019 1 1:43 EDT URINE CHEMICAL (DIP) & SEDIMENT (MICRO) WITHOUT REFLEX TO CULTURE Routine 03/19/2019 9:56 EDT BACTERIAL CULTURE, URINE Routine 03/19/2019 9:56 EDT INPATIENT ADD-ON Routine 03/19/2019 9:45 EDT BACTERIAL CULTURE, BLOOD Routine 03/19/2019 9:44 EDT BACTERIAL CULTURE, BLOOD Routine 03/19/2019 9:44 EDT INPATIENT ADD-ON Routine 03/19/2019 8:30 EDT GLUCOSE, GLUCOMETER Routine 03/19/2019 5 :23 EDT PROCALCITONIN Routine 03/19/2019 3:21 EDT COMPLETE BLOOD COUNT AND DIFFERENTIAL Routine 03/19/2019 3:21 EDT BUN Routine 03/19/2019 3:21 EDT MAGNESIUM Routine 03/19/2019 3:21 EDT CREATININE Routine 03/19/2019 3:21 EDT ELECTROLYTES Routine 03/19/2019 3:21 EDT GLUCOSE, GLUCOMETER Routine 03/19/2019 0 :46 EDT GLUCOSE, GLUCOMETER Routine 03/18/2019 1 7:54 EDT GLUCOSE, GLUCOMETER Routine 03/18/2019 1 1:46 EDT INPATIENT ADD-ON Routine 03/18/2019 9:35 EDT INPATIENT ADD-ON STAT 03/18/2019 7:40 EDT GLUCOSE, GLUCOMETER Routine 03/18/2019 5 :58 EDT PROCALCITONIN Routine 03/18/2019 2:54 EDT SMEAR REVIEW Routine 03/18/2019 2:54 EDT COMPLETE BLOOD COUNT AND DIFFERENTIAL Routine 03/18/2019 2:54 EDT PHOSPHORUS Routine 03/18/2019 2:54 EDT MAGNESIUM Routine 03/18/2019 2:54 EDT FERRITIN Routine 03/18/2019 2:54 EDT CREATININE Routine 03/18/2019 2:54 EDT ELECTROLYTES Routine 03/18/2019 2:54 EDT ZZBLOOD GAS, G3 ISTAT Routine 03/18/2019 2:52 EDT BACTERIAL CULTURE/SMEAR, RESPIRATORY Routine 03/18/2019 2:43 EDT GLUCOSE, GLUCOMETER Routine 03/17/2019 2 3:21 EDT PROTIME STAT 03/17/2019 21:46 EDT ELECTROLYTES Routine 03/17/2019 21:46 EDT ZZBLOOD GAS, G3 ISTAT Routine 03/17/2019 21:44 EDT GLUCOSE, GLUCOMETER Routine 03/17/2019 1 8:04 EDT ZZBLOOD GAS, G3 ISTAT Routine 03/17/2019 16:09 EDT CALCIUM, IONIZED STAT 03/17/2019 15:3 7 EDT PHOSPHORUS STAT 03/17/2019 15:37 EDT ELECTROLYTES STAT 03/17/2019 15:37 EDT CALCIUM, IONIZED Routine 03/17/2019 12:5 9 EDT INPATIENT ADD-ON Routine 03/17/2019 12:4 6 EDT EKG 12-LEAD Routine 03/17/2019 12:23 EDT PORTABLE CHEST 1 VIEW Routine 03/17/2019 12:05 EDT GLUCOSE, GLUCOMETER Routine 03/17/2019 1 2:05 EDT ZZBLOOD GAS, G3 ISTAT Routine 03/17/2019 12:00 EDT INPATIENT ADD-ON Routine 03/17/2019 11:0 1 EDT STREPTOCOCCUS PNEUMONIAE ANTIGEN, URINE Routine 03/17/2019 10:10 EDT LEGIONELLA ANTIGEN DETECTION, URINE Routine 03/17/2019 10:10 EDT GLUCOSE, GLUCOMETER Routine 03/17/2019 9 :19 EDT HOLD BLUE TOP Routine 03/17/2019 9:18 EDT PROCALCITONIN Routine 03/17/2019 9:18 EDT SCREENING GLUCOSE STAT 03/17/2019 9:1 8 EDT LACTIC ACID STAT 03/17/2019 9:18 EDT PTT Routine 03/17/2019 9:18 EDT PROTIME Routine 03/17/2019 9:18 EDT COMPLETE BLOOD COUNT AND DIFFERENTIAL STAT 03/17/2019 9:18 EDT BUN STAT 03/17/2019 9:18 EDT ALT STAT 03/17/2019 9:18 EDT AST STAT 03/17/2019 9:18 EDT PROTEIN, TOTAL STAT 03/17/2019 9:18 EDT PHOSPHORUS STAT 03/17/2019 9:18 EDT ALKALINE PHOSPHATASE STAT 03/17/2019 9:18 EDT MAGNESIUM STAT 03/17/2019 9:18 EDT HEMOGLOBIN A1C Routine 03/17/2019 9:18 EDT CREATININE STAT 03/17/2019 9:18 EDT CALCIUM STAT 03/17/2019 9:18 EDT BILIRUBIN, TOTAL STAT 03/17/2019 9:18 EDT ALBUMIN STAT 03/17/2019 9:18 EDT ELECTROLYTES STAT 03/17/2019 9:18 EDT ZZBLOOD GAS, G3 ISTAT Routine 03/17/2019 9:16 EDT MRSA PCR Routine 03/17/2019 9:05 EDT documented in this encounter Results * TRANSFUSION RECORD - SCANNED (04/30/2019 9:21 EDT) 04/30/2019 9:21 EDT us Scan 2 [employer] LAB INFO SERVICE AND SUPPOR T & PHONE RESULT Final Result * ECG REPORT - SCANNED (04/30/2019 9:21 EDT) 04/30/2019 9:21 EDT us Scan 2 [employer] PROCEDURE/MINOR SURGICAL OR DERABLES Final Result * ECG REPORT - SCANNED (04/30/2019 9:21 EDT) 04/30/2019 9:21 EDT us Scan 2 [employer] PROCEDURE/MINOR SURGICAL OR DERABLES Final Result * (ABNORMAL) PHOSPHORUS (04/22/2019 4:40 EDT) Phosphorus 4.7(H) 2.5 - 4.5 mg/dl 04/22/2019 5:20 EDT [facility] Blood specimen (specimen) BLOOD SPECIMEN / Unknown 04/22/2019 4:40 EDT 04/22/2019 4:46 EDT us Flex Flores MD CHEMISTRY & BLOOD GAS ORDERABLE S Final Result [facility] [address] [place] [address] * MAGNESIUM (04/22/2019 4:40 EDT) Magnesium 1.8 1.7 - 2.8 mg/dl 04/22/2019 5:20 EDT [facility] Blood specimen (specimen) BLOOD SPECIMEN / Unknown 04/22/2019 4:40 EDT 04/22/2019 4:46 EDT Flex Flores MD CHEMISTRY & BLOOD GAS ORDERABLE S Final Result Performing Organization Address [facility] Co de Phone Number [facility] [address] [place] [address] * (ABNORMAL) ELECTROLYTES (04/22/2019 4:40 EDT) Sodium 135(L) 136 - 145 mEq/L 04/22/2019 5:20 EDT [facility] Potassium 4.4 3.5 - 5.0 mEq/L 04/22/2019 5:20 EDT [facility] Chloride 105 96 - 110 mEq/L 04/22/2019 5:20 EDT [facility] CO2 23 22 - 32 mEq/L 04/22/2019 5:20 EDT [facility] Blood specimen (specimen) BLOOD SPECIMEN / Unknown 04/22/2019 4:40 EDT 04/22/2019 4:46 EDT Flex Flores MD CHEMISTRY & BLOOD GAS ORDERABLE S Final Result Performing Organization Address City/[facility] Co de Phone Number [facility] [address] [place] [address] * CREATININE (04/22/2019 4:40 EDT) Creatinine 0.75 0.66 - 1.25 mg/dl 04/22/2019 5:20 EDT [facility] GFR, Calculated 96 >60 ml/min/1.7 3m2 04/22/2019 5:20 EDT [facility] Comment: eGFR calculated using CKD-EPI equation for non Americans. Multiply eGFR by 1.16 for Americans. Blood specimen (specimen) BLOOD SPECIMEN / Unknown 04/22/2019 4:40 EDT 04/22/2019 4:46 EDT us Flex Flores MD CHEMISTRY & BLOOD GAS ORDERABLE S Final Result [facility] [address] [place] [address] * (ABNORMAL) COMPLETE BLOOD COUNT (04/22/2019 4:40 EDT) WBC 10.01 4.0 - 10.4 K/cmm 04/22/2019 4:58 [facility] RBC 2.95(L) 4.36 - 5.78 M/cmm 04/22/2019 4:58 [facility] Hemoglobin 8.3(L) 13.8 - 17.3 gm/dl 04/22/2019 4:58 [facility] HCT 26.3(L) 39.5 - 50.2 % 04/22/2019 4:58 [facility] MCV 89 81 - 95 fl 04/22/2019 4:58 [facility] MCH 28.1 27.6 - 33.0 pg 04/22/2019 4:58 [facility] MCHC 31.6(L) 32.8 - 36.4 gm/dl 04/22/2019 4:58 [facility] RDW-CV 17.1(H) <14.2 % 04/22/2019 4:58 [facility] RDW-SD 54.4(H) <46.0 fl 04/22/2019 4:58 [facility] Anisocytosis 1+ 04/22/2019 4:58 [facility] PLT 293 141 - 377 K/cmm 04/22/2019 4:58 [facility] MPV 10.7 9.5 - 12.7 fl 04/22/2019 4:58 [facility] Blood specimen (specimen) BLOOD SPECIMEN / Unknown 04/22/2019 4:40 EDT 04/22/2019 4:46 EDT us Flex Flores MD HEMATOLOGY & PF4 ORDERABLES Fin al Result Performing Organization Address City/[facility]/ZIP Co de Phone Number [facility] [address] [place] [address] * CALCIUM (04/22/2019 4:40 EDT) Calcium 8.8 8.5 - 10.5 mg/dl 04/22/2019 5:20 EDT [facility] Calculated Calcium 9.9 8.5 - 10.5 mg/dl 04/22/2019 5:20 EDT [facility] Blood specimen (specimen) BLOOD SPECIMEN / Unknown 04/22/2019 4:40 EDT 04/22/2019 4:46 EDT us Flex Flores MD CHEMISTRY & BLOOD GAS ORDERABLE S Final Result Performing Organization Address [facility]/ZIP Co de Phone Number [facility] [address] [place] [address] * PHOSPHORUS (04/20/2019 5:29 EDT) Phosphorus 3.8 2.5 - 4.5 mg/dl 04/20/2019 6:44 EDT [facility] Blood specimen (specimen) BLOOD SPECIMEN / Unknown 04/20/2019 5:29 EDT 04/20/2019 5:48 EDT us Flex Flores MD CHEMISTRY & BLOOD GAS ORDERABLE S Final Result Performing Organization Address City/[facility]/ZIP Co de Phone Number [facility] [address] [place] [address] * MAGNESIUM (04/20/2019 5:29 EDT) Magnesium 1.8 1.7 - 2.8 mg/dl 04/20/2019 6:44 EDT [facility] Blood specimen (specimen) BLOOD SPECIMEN / Unknown 04/20/2019 5:29 EDT 04/20/2019 5:48 EDT Flex Flores MD CHEMISTRY & BLOOD GAS ORDERABLE S Final Result Performing Organization Address [facility] de Phone Number [facility] [address] [place] [address] * ELECTROLYTES (04/20/2019 5:29 EDT) Sodium 136 136 - 145 mEq/L 04/20/2019 6:44 EDT [facility] Potassium 4.3 3.5 - 5.0 mEq/L 04/20/2019 6:44 EDT [facility] Chloride 104 96 - 110 mEq/L 04/20/2019 6:44 EDT [facility] CO2 26 22 - 32 mEq/L 04/20/2019 6:44 EDT [facility] Blood specimen (specimen) BLOOD SPECIMEN / Unknown 04/20/2019 5:29 EDT 04/20/2019 5:48 EDT us Flex Flores MD CHEMISTRY & BLOOD GAS ORDERABLE S Final Result Performing Organization Address [facility] de Phone Number [facility] [address] [place] [address] * (ABNORMAL) CREATININE (04/20/2019 5:29 EDT) Creatinine 0.63(L) 0.66 - 1.25 mg/dl 04/20/2019 6:44 EDT [facility] GFR, Calculated 103 >60 ml/min/1.7 3m2 04/20/2019 6:44 EDT [facility] Comment: eGFR calculated using CKD-EPI equation for non Americans. Multiply eGFR by 1.16 for Americans. Blood specimen (specimen) BLOOD SPECIMEN / Unknown 04/20/2019 5:29 EDT 04/20/2019 5:48 EDT us Flex Flores MD CHEMISTRY & BLOOD GAS ORDERABLE S Final Result Performing Organization Address [facility]/ZIP Co de Phone Number [facility] [address] [place] [address] * (ABNORMAL) COMPLETE BLOOD COUNT (04/20/2019 5:29 EDT) WBC 11.30(H) 4.0 - 10.4 K/cmm 04/20/2019 5:58 EDT [facility] RBC 2.78(L) 4.36 - 5.78 M/cmm 04/20/2019 5:58 EDT [facility] Hemoglobin 7.8(L) 13.8 - 17.3 gm/dl 04/20/2019 5:58 [facility] HCT 24.9(L) 39.5 - 50.2 % 04/20/2019 5:58 [facility] MCV 90 81 - 95 fl 04/20/2019 5:58 [facility] MCH 28.1 27.6 - 33.0 pg 04/20/2019 5:58 [facility] MCHC 31.3(L) 32.8 - 36.4 gm/dl 04/20/2019 5:58 [facility] RDW-CV 16.7(H) <14.2 % 04/20/2019 5:58 [facility] RDW-SD 54.2(H) <46.0 fl 04/20/2019 5:58 [facility] Anisocytosis 1+ 04/20/2019 5:58 [facility] PLT 278 141 - 377 K/cmm 04/20/2019 5:58 [facility] MPV 11.3 9.5 - 12.7 fl 04/20/2019 5:58 [facility] Blood specimen (specimen) BLOOD SPECIMEN / Unknown 04/20/2019 5:29 EDT 04/20/2019 5:48 EDT us Flex Flores MD HEMATOLOGY & PF4 ORDERABLES Fin al Result [facility] [address] [place] [address] * CALCIUM (04/20/2019 5:29 EDT) Calcium 8.6 8.5 - 10.5 mg/dl 04/20/2019 6:44 EDT [facility] Calculated Calcium 9.8 8.5 - 10.5 mg/dl 04/20/2019 6:44 EDT [facility] Blood specimen (specimen) BLOOD SPECIMEN / Unknown 04/20/2019 5:29 EDT 04/20/2019 5:48 EDT us Flex Flores MD CHEMISTRY & BLOOD GAS ORDERABLE S Final Result [facility] [address] [place] [address] * CHEST PA AND LATERAL (04/18/2019 9:20 EDT) Anatomical Region Laterality Modality Other 04/18/2019 9:20 EDT 04/18/2019 11:41 EDT Narrative 04/18/2019 11:41 EDT CHEST 2 VIEWS ??04/18/2019 9:20 AM Clinical History/Comments: Dyspnea, on exertion Comparison: CT chest 03/29/2019, chest radiographs 04/08/2019, 04/13/2019. Technique: Two views of the chest were performed using dual energy technique with bone and soft tissue reconstruction. Findings: Lines and tubes: A transesophageal feeding tube is redemonstrated coursing below the diaphragm and the tip is not clearly seen. The tracheostomy tube and left PICC are unchanged. Soft tissues: ??No significant soft tissue abnormalities. Bones: No interval change. Multilevel discogenic degenerative changes in the thoracic spine. Cardiac and mediastinal contours:The cardiac mediastinal silhouette is normal in size. The left cardiac border is intervally obscured. Lungs: Multifocal nodular regions of airspace disease remain within the lungs. Although some of these areas are stable, there has been interval progression in a few regions, such as within the inferior aspects of the right lower lobe and within the left retrocardiac region. Hazy opacities within the mid and lower lungs were also evident and are likely little changed. Pleura/diaphragms:Probable persistent left greater than right pleural effusions. Impression: 1. ??Slight progression in multifocal regions of airspace disease within the lungs. 2. ??Small bilateral pleural effusions. I have personally reviewed the images and the above interpretation and agree with the findings. Procedure Note Brian Israel MD, MD - 04/18/2019 CHEST 2 VIEWS 04/18/2019 9:20 AM Clinical History/Comments: Dyspnea, on exertion Comparison: CT chest 03/29/2019, chest radiographs 04/08/2019, 04/13/2019. Technique: Two views of the chest were performed using dual energy technique with bone and soft tissue reconstruction. Findings: Lines and tubes: A transesophageal feeding tube is redemonstrated coursing below the diaphragm and the tip is not clearly seen. The tracheostomy tube and left PICC are unchanged. Soft tissues: No significant soft tissue abnormalities. Bones: No interval change. Multilevel discogenic degenerative changes in the thoracic spine. Cardiac and mediastinal contours:The cardiac mediastinal silhouette is normal in size. The left cardiac border is intervally obscured. Lungs: Multifocal nodular regions of airspace disease remain within the lungs. Although some of these areas are stable, there has been interval progression in a few regions, such as within the inferior aspects of the right lower lobe and within the left retrocardiac region. Hazy opacities within the mid and lower lungs were also evident and are likely little changed. Pleura/diaphragms:Probable persistent left greater than right pleural effusions. Impression: 1. Slight progression in multifocal regions of airspace disease within the lungs. 2. Small bilateral pleural effusions. I have personally reviewed the images and the above interpretation and agree with the findings. us Igor Maza MD IMG DIAGNOSTIC IMAGING OR DERABLES Final Result * PHOSPHORUS (04/18/2019 5:31 EDT) Phosphorus 3.8 2.5 - 4.5 mg/dl 04/18/2019 6:09 EDT [facility] Blood specimen (specimen) BLOOD SPECIMEN / Unknown 04/18/2019 5:31 EDT 04/18/2019 5:37 EDT Flex Flores MD CHEMISTRY & BLOOD GAS ORDERABLE S Final Result Performing Organization Address City/[facility]/ZIP Co de Phone Number [facility] [address] [place] [address] * MAGNESIUM (04/18/2019 5:31 EDT) Magnesium 1.9 1.7 - 2.8 mg/dl 04/18/2019 6:09 EDT [facility] Blood specimen (specimen) BLOOD SPECIMEN / Unknown 04/18/2019 5:31 EDT 04/18/2019 5:37 EDT us Flex Flores MD CHEMISTRY & BLOOD GAS ORDERABLE S Final Result Performing Organization Address [facility] Co de Phone Number [facility] [address] [place] [address] * ELECTROLYTES (04/18/2019 5:31 EDT) Sodium 136 136 - 145 mEq/L 04/18/2019 6:09 EDT [facility] Potassium 4.1 3.5 - 5.0 mEq/L 04/18/2019 6:09 EDT [facility] Chloride 104 96 - 110 mEq/L 04/18/2019 6:09 EDT [facility] CO2 27 22 - 32 mEq/L 04/18/2019 6:09 EDT [facility] Blood specimen (specimen) BLOOD SPECIMEN / Unknown 04/18/2019 5:31 EDT 04/18/2019 5:37 EDT us Flex Flores MD CHEMISTRY & BLOOD GAS ORDERABLE S Final Result Performing Organization Address [facility] Co de Phone Number [facility] [address] [place] [address] * CREATININE (04/18/2019 5:31 EDT) Creatinine 0.66 0.66 - 1.25 mg/dl 04/18/2019 6:09 EDT [facility] GFR, Calculated 101 >60 ml/min/1.7 3m2 04/18/2019 6:09 T [facility] Comment: eGFR calculated using CKD-EPI equation for non Americans. Multiply eGFR by 1.16 for Americans. Blood specimen (specimen) BLOOD SPECIMEN / Unknown 04/18/2019 5:31 EDT 04/18/2019 5:37 EDT us Flex Flores MD CHEMISTRY & BLOOD GAS ORDERABLE S Final Result [facility] [address] [place] [address] * (ABNORMAL) COMPLETE BLOOD COUNT (04/18/2019 5:31 EDT) WBC 11.97(H) 4.0 - 10.4 K/cmm 04/18/2019 5:53 [facility] RBC 2.72(L) 4.36 - 5.78 M/cmm 04/18/2019 5:53 [facility] Hemoglobin 7.8(L) 13.8 - 17.3 gm/dl 04/18/2019 5:53 [facility] HCT 24.7(L) 39.5 - 50.2 % 04/18/2019 5:53 [facility] MCV 91 81 - 95 fl 04/18/2019 5:53 [facility] MCH 28.7 27.6 - 33.0 pg 04/18/2019 5:53 [facility] MCHC 31.6(L) 32.8 - 36.4 gm/dl 04/18/2019 5:53 [facility] RDW-CV 16.3(H) <14.2 % 04/18/2019 5:53 [facility] RDW-SD 53.3(H) <46.0 fl 04/18/2019 5:53 [facility] PLT 263 141 - 377 K/cmm 04/18/2019 5:53 [facility] MPV 11.4 9.5 - 12.7 fl 04/18/2019 5:53 EDT [facility] Blood specimen (specimen) BLOOD SPECIMEN / Unknown 04/18/2019 5:31 EDT 04/18/2019 5:37 EDT Flex Flores MD HEMATOLOGY & PF4 ORDERABLES Fin al Result Performing Organization Address City/[facility]/ZIP Co de Phone Number [facility] [address] [place] [address] * (ABNORMAL) CALCIUM (04/18/2019 5:31 EDT) Calcium 8.3(L) 8.5 - 10.5 mg/dl 04/18/2019 6:09 EDT [facility] Calculated Calcium 9.6 8.5 - 10.5 mg/dl 04/18/2019 6:09 EDT [facility] Blood specimen (specimen) BLOOD SPECIMEN / Unknown 04/18/2019 5:31 EDT 04/18/2019 5:37 EDT Flex Flores MD CHEMISTRY & BLOOD GAS ORDERABLE S Final Result Performing Organization Address [facility] de Phone Number [facility] [address] [place] [address] * INPATIENT ADD-ON (04/16/2019 11:10 EDT) Tests to be added IRON, TOTAL IRON BINDING CAPACITY 04/16/2019 11:06 EDT [facility] Comment:FERRITIN Number for problems [id number] 04/16/2019 11:59 EDT [facility] Accession number [id number] 04/16/2019 11:59 EDT [facility] TOPOGRAPHY UNKNOWN / Unknown 04/16/2019 11:10 EDT 04/16/2019 11:58 EDT Jonatan Martinez MD HEMATOLOGY & PF4 ORDERABLES F inal Result Performing Organization Address City/[facility]/ZIP Co de Phone Number [facility] [address] [place] [address] * ECG REPORT - SCANNED (04/16/2019 8:29 EDT) 04/16/2019 8:29 EDT us Scan 2 [employer] Operator PROCEDURE/MINOR SURGICAL OR DERABLES Final Result * (ABNORMAL) IRON (04/16/2019 5:02 EDT) Iron 15(L) 49 - 181 ug/dl 04/16/2019 12:25 EDT [facility] BLOOD SPECIMEN / Unknown 04/16/2019 5:02 EDT 04/16/2019 5:10 EDT us Flex Flores MD CHEMISTRY & BLOOD GAS ORDERABLE S Final Result Performing Organization Address [facility]/ZIP Co de Phone Number [facility] [address] [place] [address] * (ABNORMAL) IBC (04/16/2019 5:02 EDT) TIBC 188(L) 261 - 462 ug/dl 04/16/2019 12:32 EDT [facility] BLOOD SPECIMEN / Unknown 04/16/2019 5:02 EDT 04/16/2019 5:10 EDT us Flex Flores MD CHEMISTRY & BLOOD GAS ORDERABLE S Final Result [facility] [address] [place] [address] * (ABNORMAL) FERRITIN (04/16/2019 5:02 EDT) Ferritin 778(H) 22 - 322 ng/ml 04/16/2019 14:27 EDT [facility] BLOOD SPECIMEN / Unknown 04/16/2019 5:02 EDT 04/16/2019 5:10 EDT us Flex Flores MD CHEMISTRY & BLOOD GAS ORDERABLE S Final Result [facility] [address] [place] [address] * PHOSPHORUS (04/16/2019 5:02 EDT) Phosphorus 3.8 2.5 - 4.5 mg/dl 04/16/2019 6:14 EDT [facility] Blood specimen (specimen) BLOOD SPECIMEN / Unknown 04/16/2019 5:02 EDT 04/16/2019 5:10 EDT us Flex Flores MD CHEMISTRY & BLOOD GAS ORDERABLE S Final Result Performing Organization Address [facility] Co de Phone Number [facility] [address] [place] [address] * MAGNESIUM (04/16/2019 5:02 EDT) Magnesium 2.0 1.7 - 2.8 mg/dl 04/16/2019 6:14 EDT [facility] Blood specimen (specimen) BLOOD SPECIMEN / Unknown 04/16/2019 5:02 EDT 04/16/2019 5:10 EDT us Flex Flores MD CHEMISTRY & BLOOD GAS ORDERABLE S Final Result Performing Organization Address City/[facility] Co de Phone Number [facility] [address] [place] [address] * ELECTROLYTES (04/16/2019 5:02 EDT) Sodium 139 136 - 145 mEq/L 04/16/2019 6:14 EDT [facility] Potassium 4.0 3.5 - 5.0 mEq/L 04/16/2019 6:14 EDT [facility] Chloride 106 96 - 110 mEq/L 04/16/2019 6:14 EDT [facility] CO2 29 22 - 32 mEq/L 04/16/2019 6:14 EDT [facility] Blood specimen (specimen) BLOOD SPECIMEN / Unknown 04/16/2019 5:02 EDT 04/16/2019 5:10 EDT Flex Flores MD CHEMISTRY & BLOOD GAS ORDERABLE S Final Result Performing Organization Address [facility] Co de Phone Number [facility] [address] [place] [address] * (ABNORMAL) CREATININE (04/16/2019 5:02 EDT) Creatinine 0.63(L) 0.66 - 1.25 mg/dl 04/16/2019 6:14 EDT [facility] GFR, Calculated 103 >60 ml/min/1.7 3m2 04/16/2019 6:14 EDT [facility] Comment: eGFR calculated using CKD-EPI equation for non Americans. Multiply eGFR by 1.16 for Americans. Blood specimen (specimen) BLOOD SPECIMEN / Unknown 04/16/2019 5:02 EDT 04/16/2019 5:10 EDT Flex Flores MD CHEMISTRY & BLOOD GAS ORDERABLE S Final Result Performing Organization Address [facility] de Phone Number [facility] [address] [place] [address] * (ABNORMAL) COMPLETE BLOOD COUNT (04/16/2019 5:02 EDT) WBC 9.82 4.0 - 10.4 K/cmm 04/16/2019 5:24 [facility] RBC 2.67(L) 4.36 - 5.78 M/cmm 04/16/2019 5:24 [facility] Hemoglobin 7.6(L) 13.8 - 17.3 gm/dl 04/16/2019 5:24 [facility] HCT 24.5(L) 39.5 - 50.2 % 04/16/2019 5:24 [facility] MCV 92 81 - 95 fl 04/16/2019 5:24 [facility] MCH 28.5 27.6 - 33.0 pg 04/16/2019 5:24 [facility] MCHC 31.0(L) 32.8 - 36.4 gm/dl 04/16/2019 5:24 EDT [facility] RDW-CV 16.2(H) <14.2 % 04/16/2019 5:24 EDT [facility] RDW-SD 53.2(H) <46.0 fl 04/16/2019 5:24 EDT [facility] PLT 269 141 - 377 K/cmm 04/16/2019 5:24 EDT [facility] MPV 11.2 9.5 - 12.7 fl 04/16/2019 5:24 EDT [facility] Blood specimen (specimen) BLOOD SPECIMEN / Unknown 04/16/2019 5:02 EDT 04/16/2019 5:10 EDT Flex Flores MD HEMATOLOGY & PF4 ORDERABLES Fin al Result Performing Organization Address City/[facility] Co de Phone Number [facility] [address] [place] [address] * (ABNORMAL) CALCIUM (04/16/2019 5:02 EDT) Calcium 8.3(L) 8.5 - 10.5 mg/dl 04/16/2019 6:14 T [facility] Calculated Calcium 9.7 8.5 - 10.5 mg/dl 04/16/2019 6:14 EDT [facility] Blood specimen (specimen) BLOOD SPECIMEN / Unknown 04/16/2019 5:02 EDT 04/16/2019 5:10 EDT Flex Flores MD CHEMISTRY & BLOOD GAS ORDERABLE S Final Result Performing Organization Address City/[facility] Co de Phone Number [facility] [address] [place] [address] * PHOSPHORUS (04/14/2019 4:29 EDT) Phosphorus 4.1 2.5 - 4.5 mg/dl 04/14/2019 5:06 EDT [facility] Blood specimen (specimen) BLOOD SPECIMEN / Unknown 04/14/2019 4:29 EDT 04/14/2019 4:32 EDT us Flex Flores MD CHEMISTRY & BLOOD GAS ORDERABLE S Final Result Performing Organization Address [facility]/ZIP Co de Phone Number [facility] [address] [place] [address] * MAGNESIUM (04/14/2019 4:29 EDT) Magnesium 2.0 1.7 - 2.8 mg/dl 04/14/2019 5:06 EDT [facility] Blood specimen (specimen) BLOOD SPECIMEN / Unknown 04/14/2019 4:29 EDT 04/14/2019 4:32 EDT us Flex Flores MD CHEMISTRY & BLOOD GAS ORDERABLE S Final Result Performing Organization Address [facility] de Phone Number [facility] [address] [place] [address] * ELECTROLYTES (04/14/2019 4:29 EDT) Sodium 138 136 - 145 mEq/L 04/14/2019 5:06 EDT [facility] Potassium 4.1 3.5 - 5.0 mEq/L 04/14/2019 5:06 EDT [facility] Chloride 105 96 - 110 mEq/L 04/14/2019 5:06 EDT [facility] CO2 27 22 - 32 mEq/L 04/14/2019 5:06 EDT [facility] Blood specimen (specimen) BLOOD SPECIMEN / Unknown 04/14/2019 4:29 EDT 04/14/2019 4:32 EDT us Flex Flores MD CHEMISTRY & BLOOD GAS ORDERABLE S Final Result Performing Organization Address [facility] Co de Phone Number [facility] [address] [place] [address] * CREATININE (04/14/2019 4:29 EDT) Creatinine 0.72 0.66 - 1.25 mg/dl 04/14/2019 5:06 [facility] GFR, Calculated 98 >60 ml/min/1.7 3m2 04/14/2019 5:06 [facility] Comment: eGFR calculated using CKD-EPI equation for non Americans. Multiply eGFR by 1.16 for Americans. Blood specimen (specimen) BLOOD SPECIMEN / Unknown 04/14/2019 4:29 EDT 04/14/2019 4:32 EDT us Flex Flores MD CHEMISTRY & BLOOD GAS ORDERABLE S Final Result [facility] [address] [place] [address] * (ABNORMAL) COMPLETE BLOOD COUNT (04/14/2019 4:29 EDT) WBC 12.62(H) 4.0 - 10.4 K/cmm 04/14/2019 4:41 [facility] RBC 2.73(L) 4.36 - 5.78 M/cmm 04/14/2019 4:41 [facility] Hemoglobin 7.7(L) 13.8 - 17.3 gm/dl 04/14/2019 4:41 [facility] HCT 25.0(L) 39.5 - 50.2 % 04/14/2019 4:41 [facility] MCV 92 81 - 95 fl 04/14/2019 4:41 [facility] MCH 28.2 27.6 - 33.0 pg 04/14/2019 4:41 [facility] MCHC 30.8(L) 32.8 - 36.4 gm/dl 04/14/2019 4:41 [facility] RDW-CV 16.4(H) <14.2 % 04/14/2019 4:41 [facility] RDW-SD 54.3(H) <46.0 fl 04/14/2019 4:41 [facility] PLT 337 141 - 377 K/cmm 04/14/2019 4:41 EDT [facility] MPV 10.8 9.5 - 12.7 fl 04/14/2019 4:41 EDT [facility] Blood specimen (specimen) BLOOD SPECIMEN / Unknown 04/14/2019 4:29 EDT 04/14/2019 4:32 EDT Flex Flores MD HEMATOLOGY & PF4 ORDERABLES Fin al Result Performing Organization Address [facility] Co de Phone Number [facility] [address] [place] [address] * (ABNORMAL) CALCIUM (04/14/2019 4:29 EDT) Calcium 8.4(L) 8.5 - 10.5 mg/dl 04/14/2019 5:06 EDT [facility] Calculated Calcium 9.7 8.5 - 10.5 mg/dl 04/14/2019 5:06 EDT [facility] Blood specimen (specimen) BLOOD SPECIMEN / Unknown 04/14/2019 4:29 EDT 04/14/2019 4:32 EDT Flex Flores MD CHEMISTRY & BLOOD GAS ORDERABLE S Final Result Performing Organization Address [facility] de Phone Number [facility] [address] [place] [address] * PORTABLE CHEST 1 VIEW (04/13/2019 3:14 EDT) Anatomical Region Laterality Modality Other 04/13/2019 3:14 EDT 04/13/2019 8:19 EDT Narrative 04/13/2019 8:19 EDT PORTABLE CHEST 1 VIEW ??04/13/2019 3:14 AM Clinical History/Comments: increased O2 requirement, concern for aspiration; now in [id number] Comparison: Chest radiograph from April 08, 2019. Findings: Single portable AP view of the chest at 50 degrees upright. Lines/tubes: ??A tracheostomy remains in place. Feeding tube crosses the GE junction with the tip not included in the [id number]. A left upper externally PICC terminates in the superior cavoatrial junction. Soft tissues and bones: No significant abnormality. Cardiac and mediastinal contours: Within normal limits. Lungs: There are redemonstrated widespread patchy opacities which appear generally improved and less confluent than on the prior study. The upper lung zones remain relatively spared. The left hemidiaphragm remains obscured. Pleura: No definite pleural fluid or pneumothorax, however neither can be excluded on this semiupright radiograph. Impression: 1. ??Improving bilateral patchy airspace opacities. I have personally reviewed the images and the above interpretation and agree with the findings. Procedure Note Stephane Rodriguez MD, - 04/13/2019 PORTABLE CHEST 1 VIEW 04/13/2019 3:14 AM Clinical History/Comments: increased O2 requirement, concern for aspiration; now in [facility] Comparison: Chest radiograph from April 08, 2019. Findings: Single portable AP view of the chest at 50 degrees upright. Lines/tubes: A tracheostomy remains in place. Feeding tube crosses the GE junction with the tip not included in the [id number]. A left upper externally PICC terminates in the superior cavoatrial junction. Soft tissues and bones: No significant abnormality. Cardiac and mediastinal contours: Within normal limits. Lungs: There are redemonstrated widespread patchy opacities which appear generally improved and less confluent than on the prior study. The upper lung zones remain relatively spared. The left hemidiaphragm remains obscured. Pleura: No definite pleural fluid or pneumothorax, however neither can be excluded on this semiupright radiograph. Impression: 1. Improving bilateral patchy airspace opacities. I have personally reviewed the images and the above interpretation and agree with the findings. Flex Flores MD IMG DIAGNOSTIC IMAGING ORDERABL ES Final Result * HOLD SST (04/13/2019 2:24 EDT) Hold SST Hold for further testing. Specimen will be held for 5 days. 04/13/2019 2:34 EDT [facility] BLOOD SPECIMEN / Unknown 04/13/2019 2:24 EDT 04/13/2019 2:34 EDT us Leticia Galdamez MD LAB INFO SERVICE AND SUPPORT & PHONE RESULT Final Result [facility] [address] [place] [address] * HOLD LAVENDER TOP (04/13/2019 2:24 EDT) Hold Purple Top EDTA for hematology will be discarded after 48 hours, differential not available after 12 hours. 04/13/2019 2:34 EDT [facility] BLOOD SPECIMEN / Unknown 04/13/2019 2:24 EDT 04/13/2019 2:34 EDT us Leticia Galdamez MD LAB INFO SERVICE AND SUPPORT & PHONE RESULT Final Result Performing Organization Address [facility] Co de Phone Number [facility] [address] [place] [address] * HOLD GREEN TOP (04/13/2019 2:24 EDT) Hold Green Top Hold for further testing. Specimen will be held for 5 days. 04/13/2019 2:34 EDT [facility] BLOOD SPECIMEN / Unknown 04/13/2019 2:24 EDT 04/13/2019 2:34 EDT us Leticia Galdamez MD LAB INFO SERVICE AND SUPPORT & PHONE RESULT Final Result Performing Organization Address City/[facility]/ZIP Co de Phone Number [facility] [address] [place] [address] * HOLD BLUE TOP (04/13/2019 2:24 EDT) Hold Blue Top Sample for coagulation will be discarded after 4 hours 04/13/2019 3:16 EDT [facility] BLOOD SPECIMEN / Unknown 04/13/2019 2:24 EDT 04/13/2019 2:34 EDT us Leticia Galdamez MD LAB INFO SERVICE AND SUPPORT & PHONE RESULT Final Result [facility] [address] [place] [address] * (ABNORMAL) BLOOD GAS, G3 ISTAT (04/13/2019 2:00 EDT) pH, i-STAT 7.47(H) 7.35 - 7.45 04/13/2019 2:05 EDT [facility] pCO2, i-STAT 32(L) 35 - 45 mmHg 04/13/2019 2:05 EDT [facility] pO2, i-STAT 49(L) 80 - 105 mmHg 04/13/2019 2:05 EDT [facility] TCO2, i-STAT 24 23 - 27 mEq/L 04/13/2019 2:05 EDT [facility] O2 Saturation 87(L) 95 - 98 % 04/13/2019 2:05 EDT [facility] Base Excess, i-STAT 0 04/13/2019 2:05 EDT [facility] Sample Type ARTERIAL 04/13/2019 2:05 EDT [facility] certification officer ID [id number] 04/13/2019 2:05 EDT [facility] Comment: Test Performed by Respiratory For non-arterial reference ranges, please see ISTAT procedure. BLOOD SPECIMEN / Unknown 04/13/2019 2:00 EDT 04/13/2019 2:05 EDT us Leticia Galdamez MD CHEMISTRY & BLOOD GAS ORDERAB LES Final Result [facility] [address] [place] [address] * BACTERIAL CULTURE/SMEAR, RESPIRATORY (04/13/2019 0:40 EDT) Gram Smear Result Many Polys 04/13/2019 9:16 EDT [facility] Gram Smear Result Mod Squamous epithelial cells 04/13/2019 9:16 EDT [facility] Gram Smear Result Mod Mixed gram positive and gram negative organisms 04/13/2019 9:16 EDT [facility] Gram Smear Result Smear suggests contamination with saliva. ??Please submit additional specimen if clinically indicated. 04/13/2019 9:16 EDT [facility] Result See gram smear results. Credit Issued 04/13/2019 9:16 EDT [facility] Specimen of unknown material (specimen) SPECIMEN FROM TRACHEA OBTAINED BY ASPIRATION / Unknown 04/13/2019 0:40 EDT 04/13/2019 7:20 EDT Comment:Leuken's specimen us Katja Pierson MD MICROBIOLOGY - GENE RAL ORDERABLES Final Result [facility] [address] [place] [address] * BACTERIAL CULTURE, BLOOD (04/12/2019 19:37 EDT) Result No growth 04/17/2019 7:54 EDT [facility] Blood specimen (specimen) BLOOD SPECIMEN / Unknown 04/12/2019 19:37 EDT 04/12/2019 20:30 EDT Comment:Right~Antecubital us Shelly Guzman MD MICROBIOLOGY - GENERAL ORDERABL ES Final Result Performing Organization Address [facility]/ZIP Co de Phone Number [facility] [address] [place] [address] * BACTERIAL CULTURE, BLOOD (04/12/2019 18:35 EDT) Result No growth 04/17/2019 7:54 EDT [facility] Blood specimen (specimen) BLOOD SPECIMEN / Unknown 04/12/2019 18:35 EDT 04/12/2019 20:30 EDT Comment:Draw site not indica mega. us Shelly Guzman MD MICROBIOLOGY - GENERAL ORDERABL ES Final Result Performing Organization Address City/[facility] Co de Phone Number [facility] [address] [place] [address] * PHOSPHORUS (04/12/2019 4:48 EDT) Phosphorus 3.9 2.5 - 4.5 mg/dl 04/12/2019 5:38 EDT [facility] Blood specimen (specimen) BLOOD SPECIMEN / Unknown 04/12/2019 4:48 EDT 04/12/2019 4:57 EDT Flex Flores MD CHEMISTRY & BLOOD GAS ORDERABLE S Final Result Performing Organization Address [facility]/ZIP Co de Phone Number [facility] [address] [place] [address] * MAGNESIUM (04/12/2019 4:48 EDT) Magnesium 2.0 1.7 - 2.8 mg/dl 04/12/2019 5:38 EDT [facility] Blood specimen (specimen) BLOOD SPECIMEN / Unknown 04/12/2019 4:48 EDT 04/12/2019 4:57 EDT us Flex Flores MD CHEMISTRY & BLOOD GAS ORDERABLE S Final Result Performing Organization Address [facility] de Phone Number [facility] [address] [place] [address] * ELECTROLYTES (04/12/2019 4:48 EDT) Sodium 137 136 - 145 mEq/L 04/12/2019 5:38 EDT [facility] Potassium 4.2 3.5 - 5.0 mEq/L 04/12/2019 5:38 EDT [facility] Chloride 104 96 - 110 mEq/L 04/12/2019 5:38 EDT [facility] CO2 26 22 - 32 mEq/L 04/12/2019 5:38 EDT [facility] Blood specimen (specimen) BLOOD SPECIMEN / Unknown 04/12/2019 4:48 EDT 04/12/2019 4:57 EDT us Flex Flores MD CHEMISTRY & BLOOD GAS ORDERABLE S Final Result Performing Organization Address [facility] Co de Phone Number [facility] [address] [place] [address] * CREATININE (04/12/2019 4:48 EDT) Creatinine 0.70 0.66 - 1.25 mg/dl 04/12/2019 5:38 [facility] GFR, Calculated 99 >60 ml/min/1.7 3m2 04/12/2019 5:38 [facility] Comment: eGFR calculated using CKD-EPI equation for non Americans. Multiply eGFR by 1.16 for Americans. Blood specimen (specimen) BLOOD SPECIMEN / Unknown 04/12/2019 4:48 EDT 04/12/2019 4:57 EDT us Flex Flores MD CHEMISTRY & BLOOD GAS ORDERABLE S Final Result [facility] [address] [place] [address] * (ABNORMAL) COMPLETE BLOOD COUNT (04/12/2019 4:48 EDT) WBC 8.73 4.0 - 10.4 K/cmm 04/12/2019 5:16 [facility] RBC 2.76(L) 4.36 - 5.78 M/cmm 04/12/2019 5:16 [facility] Hemoglobin 8.1(L) 13.8 - 17.3 gm/dl 04/12/2019 5:16 [facility] HCT 25.1(L) 39.5 - 50.2 % 04/12/2019 5:16 [facility] MCV 91 81 - 95 fl 04/12/2019 5:16 [facility] MCH 29.3 27.6 - 33.0 pg 04/12/2019 5:16 [facility] MCHC 32.3(L) 32.8 - 36.4 gm/dl 04/12/2019 5:16 [facility] RDW-CV 16.3(H) <14.2 % 04/12/2019 5:16 [facility] RDW-SD 53.0(H) <46.0 fl 04/12/2019 5:16 [facility] PLT 433(H) 141 - 377 K/cmm 04/12/2019 5:16 EDT [facility] MPV 10.8 9.5 - 12.7 fl 04/12/2019 5:16 EDT [facility] Blood specimen (specimen) BLOOD SPECIMEN / Unknown 04/12/2019 4:48 EDT 04/12/2019 4:57 EDT us Flex Flores MD HEMATOLOGY & PF4 ORDERABLES Fin al Result Performing Organization Address City/[facility]/ZIP Co de Phone Number [facility] [address] [place] [address] * (ABNORMAL) CALCIUM (04/12/2019 4:48 EDT) Calcium 8.3(L) 8.5 - 10.5 mg/dl 04/12/2019 5:38 EDT [facility] Calculated Calcium 9.6 8.5 - 10.5 mg/dl 04/12/2019 5:38 EDT [facility] Blood specimen (specimen) BLOOD SPECIMEN / Unknown 04/12/2019 4:48 EDT 04/12/2019 4:57 EDT us Flex Flores MD CHEMISTRY & BLOOD GAS ORDERABLE S Final Result Performing Organization Address [facility] Co de Phone Number [facility] [address] [place] [address] * MRSA PCR (04/10/2019 9:31 EDT) Result No Staphylococcus aureus detected by PCR. 04/10/2019 16:52 EDT [facility] Specimen of unknown material (specimen) NASAL ROUTE / Unknown 04/10/2019 9:31 EDT 04/10/2019 11:19 EDT us Kori Nguyen MD MICROBIOLOGY - GENERAL OR DERABLES Final Result Performing Organization Address City/[facility]/ZIP Co de Phone Number [facility] [address] [place] [address] * (ABNORMAL) COMPLETE BLOOD COUNT (04/10/2019 4:04 EDT) WBC 7.52 4.0 - 10.4 K/cmm 04/10/2019 4:28 [facility] RBC 2.80(L) 4.36 - 5.78 M/cmm 04/10/2019 4:28 [facility] Hemoglobin 8.3(L) 13.8 - 17.3 gm/dl 04/10/2019 4:28 [facility] HCT 25.4(L) 39.5 - 50.2 % 04/10/2019 4:28 [facility] MCV 91 81 - 95 fl 04/10/2019 4:28 [facility] MCH 29.6 27.6 - 33.0 pg 04/10/2019 4:28 [facility] MCHC 32.7(L) 32.8 - 36.4 gm/dl 04/10/2019 4:28 [facility] RDW-CV 16.4(H) <14.2 % 04/10/2019 4:28 [facility] RDW-SD 53.7(H) <46.0 fl 04/10/2019 4:28 [facility] PLT 505(H) 141 - 377 K/cmm 04/10/2019 4:28 [facility] MPV 10.7 9.5 - 12.7 fl 04/10/2019 4:28 [facility] Blood specimen (specimen) BLOOD SPECIMEN / Unknown 04/10/2019 4:04 EDT 04/10/2019 4:18 EDT us Charo Frank MD HEMATOLOGY & PF4 ORDERABLES Final Result [facility] [address] [place] [address] * ELECTROLYTES (04/10/2019 4:04 EDT) Sodium 136 136 - 145 mEq/L 04/10/2019 4:35 EDT [facility] Potassium 4.2 3.5 - 5.0 mEq/L 04/10/2019 4:35 EDT [facility] Chloride 105 96 - 110 mEq/L 04/10/2019 4:35 EDT [facility] CO2 25 22 - 32 mEq/L 04/10/2019 4:35 EDT [facility] Blood specimen (specimen) BLOOD SPECIMEN / Unknown 04/10/2019 4:04 EDT 04/10/2019 4:18 EDT us Jonatan Martinez MD CHEMISTRY & BLOOD GAS ORDERAB LES Final Result Performing Organization Address [facility]/ZIP Co de Phone Number [facility] [address] [place] [address] * MAGNESIUM (04/10/2019 4:04 EDT) Magnesium 2.0 1.7 - 2.8 mg/dl 04/10/2019 4:35 EDT [facility] Blood specimen (specimen) BLOOD SPECIMEN / Unknown 04/10/2019 4:04 EDT 04/10/2019 4:18 EDT us Kori Nguyen MD CHEMISTRY & BLOOD GAS ORD ERABLES Final Result Performing Organization Address [facility] Co de Phone Number [facility] [address] [place] [address] * (ABNORMAL) CALCIUM (04/10/2019 4:04 EDT) Calcium 8.1(L) 8.5 - 10.5 mg/dl 04/10/2019 4:35 EDT [facility] Calculated Calcium 9.4 8.5 - 10.5 mg/dl 04/10/2019 4:35 EDT [facility] Blood specimen (specimen) BLOOD SPECIMEN / Unknown 04/10/2019 4:04 EDT 04/10/2019 4:18 EDT us Kori Nguyen MD CHEMISTRY & BLOOD GAS ORD ERABLES Final Result Performing Organization Address City/[facility]/ZIP Co de Phone Number [facility] [address] [place] [address] * PHOSPHORUS (04/10/2019 4:04 EDT) Phosphorus 3.8 2.5 - 4.5 mg/dl 04/10/2019 4:35 EDT [facility] Blood specimen (specimen) BLOOD SPECIMEN / Unknown 04/10/2019 4:04 EDT 04/10/2019 4:18 EDT us Kori Nguyen MD CHEMISTRY & BLOOD GAS ORD ERABLES Final Result Performing Organization Address [facility] Co de Phone Number [facility] [address] [place] [address] * CREATININE (04/10/2019 4:04 EDT) Pathologist [facility] Creatinine 0.73 0.66 - 1.25 mg/dl 04/10/2019 4:35 EDT [facility] GFR, Calculated 97 >60 ml/min/1.7 3m2 04/10/2019 4:35 EDT [facility] Comment: eGFR calculated using CKD-EPI equation for non Americans. Multiply eGFR by 1.16 for Americans. Blood specimen (specimen) BLOOD SPECIMEN / Unknown 04/10/2019 4:04 EDT 04/10/2019 4:18 EDT us Kori Nguyen MD CHEMISTRY & BLOOD GAS ORD ERABLES Final Result Performing Organization Address City/[facility]/ZIP Co de Phone Number [facility] [address] [place] [address] * (ABNORMAL) COMPLETE BLOOD COUNT (04/09/2019 4:21 EDT) WBC 6.09 4.0 - 10.4 K/cmm 04/09/2019 4:35 EDT [facility] RBC 2.72(L) 4.36 - 5.78 M/cmm 04/09/2019 4:35 [facility] Hemoglobin 8.1(L) 13.8 - 17.3 gm/dl 04/09/2019 4:35 [facility] HCT 24.8(L) 39.5 - 50.2 % 04/09/2019 4:35 [facility] MCV 91 81 - 95 fl 04/09/2019 4:35 [facility] MCH 29.8 27.6 - 33.0 pg 04/09/2019 4:35 [facility] MCHC 32.7(L) 32.8 - 36.4 gm/dl 04/09/2019 4:35 [facility] RDW-CV 16.7(H) <14.2 % 04/09/2019 4:35 [facility] RDW-SD 54.3(H) <46.0 fl 04/09/2019 4:35 [facility] Anisocytosis 1+ 04/09/2019 4:35 [facility] PLT 439(H) 141 - 377 K/cmm 04/09/2019 4:35 [facility] MPV 11.0 9.5 - 12.7 fl 04/09/2019 4:35 [facility] Blood specimen (specimen) BLOOD SPECIMEN / Unknown 04/09/2019 4:21 EDT 04/09/2019 4:24 EDT Charo Frank MD HEMATOLOGY & PF4 ORDERABLES Final Result [facility] [address] [place] [address] * ELECTROLYTES (04/09/2019 4:21 EDT) Sodium 137 136 - 145 mEq/L 04/09/2019 5:16 [facility] Potassium 4.1 3.5 - 5.0 mEq/L 04/09/2019 5:16 [facility] Chloride 106 96 - 110 mEq/L 04/09/2019 5:16 [facility] CO2 24 22 - 32 mEq/L 04/09/2019 5:16 EDT [facility] Blood specimen (specimen) BLOOD SPECIMEN / Unknown 04/09/2019 4:21 EDT 04/09/2019 4:24 EDT us Jonatan Martinez MD CHEMISTRY & BLOOD GAS ORDERAB LES Final Result Performing Organization Address [facility]/ZIP Co de Phone Number [facility] [address] [place] [address] * MAGNESIUM (04/09/2019 4:21 EDT) Magnesium 1.9 1.7 - 2.8 mg/dl 04/09/2019 5:16 EDT [facility] Blood specimen (specimen) BLOOD SPECIMEN / Unknown 04/09/2019 4:21 EDT 04/09/2019 4:24 EDT Kori Nguyen MD CHEMISTRY & BLOOD GAS ORD ERABLES Final Result Performing Organization Address [facility]/ZIP Co de Phone Number [facility] [address] [place] [address] * (ABNORMAL) CALCIUM (04/09/2019 4:21 EDT) Calcium 7.7(L) 8.5 - 10.5 mg/dl 04/09/2019 5:16 EDT [facility] Calculated Calcium 9.1 8.5 - 10.5 mg/dl 04/09/2019 5:16 EDT [facility] Blood specimen (specimen) BLOOD SPECIMEN / Unknown 04/09/2019 4:21 EDT 04/09/2019 4:24 EDT Kori Nguyen MD CHEMISTRY & BLOOD GAS ORD ERABLES Final Result Performing Organization Address City/[facility]/ZIP Co de Phone Number [facility] [address] [place] [address] * PHOSPHORUS (04/09/2019 4:21 EDT) Phosphorus 3.9 2.5 - 4.5 mg/dl 04/09/2019 5:16 EDT [facility] Blood specimen (specimen) BLOOD SPECIMEN / Unknown 04/09/2019 4:21 EDT 04/09/2019 4:24 EDT us Kori Nguyen MD CHEMISTRY & BLOOD GAS ORD ERABLES Final Result Performing Organization Address [facility] Co de Phone Number [facility] [address] [place] [address] * CREATININE (04/09/2019 4:21 EDT) Creatinine 0.66 0.66 - 1.25 mg/dl 04/09/2019 5:16 EDT [facility] GFR, Calculated 101 >60 ml/min/1.7 3m2 04/09/2019 5:16 EDT [facility] Comment: eGFR calculated using CKD-EPI equation for non Americans. Multiply eGFR by 1.16 for Americans. Blood specimen (specimen) BLOOD SPECIMEN / Unknown 04/09/2019 4:21 EDT 04/09/2019 4:24 EDT us Kori Nguyen MD CHEMISTRY & BLOOD GAS ORD ERABLES Final Result Performing Organization Address [facility] Co de Phone Number [facility] [address] [place] [address] * BACTERIAL CULTURE, URINE (04/08/2019 20:41 EDT) Result Less than 10,000 CFU/ml Usual urogenital constance. 04/10/2019 8:15 EDT [facility] URINE / Unknown 04/08/2019 2 0:41 EDT 04/08/2019 20:57 EDT us Leticia Galdamez MD MICROBIOLOGY - GENERAL ORDERA BLES Final Result Performing Organization Address [facility] Co de Phone Number [facility] [address] [place] [address] * (ABNORMAL) UA CHEMICAL (DIPSTICK ONLY) (04/08/2019 20:41 EDT) Color, UA Yellow 04/08/2019 20:55 [facility] Clarity, UA Clear 04/08/2019 20:55 [facility] Glucose, UA Neg Neg 04/08/2019 20:55 [facility] Bilirubin, UA Neg Neg 04/08/2019 20:55 [facility] Ketones, UA Neg Neg 04/08/2019 20:55 [facility] Refractometer SG,Urine 1.023 1.001 - 1.035 04/08/2019 20:55 [facility] Blood, UA Trace(A) Neg 04/08/2019 20:55 [facility] pH, UA 6.5 4.6 - 8.0 04/08/2019 20:55 [facility] Protein, UA 1+(A) Neg 04/08/2019 20:55 [facility] Urobilinogen, UA Normal Normal E.U./dl 04/08/2019 20:55 [facility] Nitrite, UA Neg Neg 04/08/2019 20:55 [facility] Leuk Esterase Trace(A) Neg 04/08/2019 20:55 [facility] UA Method Used 04/08/2019 20:48 [facility] Comment: Testing performed using [employer]™ [employer]. URINE / Unknown 04/08/2019 2 0:41 EDT 04/08/2019 20:47 EDT us Ayaan SMITH URINALYSIS ORDERABLES Final R esult [facility] [address] [place] [address] * URINE CULTURE IF POSITIVE (04/08/2019 20:41 EDT) Culture if Indicated Culture indicated by urinalysis results. 04/08/2019 20:55 [facility] Urine specimen (specimen) TOPOGRAPHY UNKNOWN / Unknown 04/08/2019 20:41 EDT 04/08/2019 20:47 EDT Ayaan SMITH MICROBIOLOGY - GENERAL ORDERA BLES Final Result [facility] [address] [place] [address] * PORTABLE CHEST 1 VIEW (04/08/2019 19:21 EDT) Anatomical Region Laterality Modality Other 04/08/2019 19:2 1 EDT 04/08/2019 20:06 EDT Narrative 04/08/2019 20:06 EDT PORTABLE CHEST 1 VIEW ??04/08/2019 7:21 PM Clinical History/Comments: fever Comparison: 04/06/2019. Findings: Single portable AP view of the chest. Lines/tubes: ??A left PICC line is now seen terminating at the superior cavoatrial junction. Transesophageal tube courses below the diaphragm and the tip is not clearly seen. Endotracheal tube is stable in position. No other lines or tubes are identified. Soft tissues and bones: No significant soft tissue or osseous abnormalities. Cardiac and mediastinal contours: The cardiac mediastinal silhouette is within normal limits. Lungs: Patchy airspace opacities in the mid and basilar lungs is grossly stable from prior. No other significant change. Pleura: No evidence of pneumothorax or definite pleural fluid. Impression: Multifocal pneumonia, unchanged from prior. I have personally reviewed the images and the above interpretation and agree with the findings. Procedure Note Betzy Mckeon MD, MD - 04/08/2019 PORTABLE CHEST 1 VIEW 04/08/2019 7:21 PM Clinical History/Comments: fever Comparison: 04/06/2019. Findings: Single portable AP view of the chest. Lines/tubes: A left PICC line is now seen terminating at the superior cavoatrial junction. Transesophageal tube courses below the diaphragm and the tip is not clearly seen. Endotracheal tube is stable in position. No other lines or tubes are identified. Soft tissues and bones: No significant soft tissue or osseous abnormalities. Cardiac and mediastinal contours: The cardiac mediastinal silhouette is within normal limits. Lungs: Patchy airspace opacities in the mid and basilar lungs is grossly stable from prior. No other significant change. Pleura: No evidence of pneumothorax or definite pleural fluid. Impression: Multifocal pneumonia, unchanged from prior. I have personally reviewed the images and the above interpretation and agree with the findings. us Ayaan SMITH IMG DIAGNOSTIC IMAGING ORDERA BLES Final Result * BACTERIAL CULTURE, BLOOD (04/08/2019 19:17 EDT) Result No growth 04/13/2019 6:44 EDT [facility] Blood specimen (specimen) BLOOD SPECIMEN / Unknown 04/08/2019 19:17 EDT 04/08/2019 20:18 EDT Comment:Left~PICC Ayaan SMITH MICROBIOLOGY - GENERAL ORDERA BLES Final Result Performing Organization Address [facility]/ZIP Co de Phone Number [facility] [address] [place] [address] * BACTERIAL CULTURE, BLOOD (04/08/2019 19:04 EDT) Result No growth 04/13/2019 6:44 EDT [facility] Blood specimen (specimen) BLOOD SPECIMEN / Unknown 04/08/2019 19:04 EDT 04/08/2019 19:34 EDT Comment:Right~Hand~AEROBIC B LOOD CULTURE BOTTLE Ayaan SMITH MICROBIOLOGY - GENERAL ORDERA BLES Final Result Performing Organization Address City/[facility]/ZIP Co de Phone Number [facility] [address] [place] [address] * BACTERIAL CULTURE, BLOOD (04/08/2019 18:59 EDT) Result No growth 04/13/2019 6:44 EDT [facility] Blood specimen (specimen) BLOOD SPECIMEN / Unknown 04/08/2019 18:59 EDT 04/08/2019 19:34 EDT Comment:Left~FOREARM us Ayaan Mak MBBS MICROBIOLOGY - GENERAL ORDERA BLES Final Result [facility] [address] [place] [address] * (ABNORMAL) COMPLETE BLOOD COUNT (04/08/2019 5:28 EDT) WBC 5.57 4.0 - 10.4 K/cmm 04/08/2019 5:54 EDT [facility] RBC 2.77(L) 4.36 - 5.78 M/cmm 04/08/2019 5:54 EDT [facility] Hemoglobin 8.1(L) 13.8 - 17.3 gm/dl 04/08/2019 5:54 T [facility] HCT 25.4(L) 39.5 - 50.2 % 04/08/2019 5:54 [facility] MCV 92 81 - 95 fl 04/08/2019 5:54 T [facility] MCH 29.2 27.6 - 33.0 pg 04/08/2019 5:54 EDT [facility] MCHC 31.9(L) 32.8 - 36.4 gm/dl 04/08/2019 5:54 T [facility] RDW-CV 17.2(H) <14.2 % 04/08/2019 5:54 [facility] RDW-SD 56.7(H) <46.0 fl 04/08/2019 5:54 [facility] Anisocytosis 1+ 04/08/2019 5:54 T [facility] PLT 423(H) 141 - 377 K/cmm 04/08/2019 5:54 T [facility] MPV 11.1 9.5 - 12.7 fl 04/08/2019 5:54 [facility] Blood specimen (specimen) BLOOD SPECIMEN / Unknown 04/08/2019 5:28 EDT 04/08/2019 5:47 EDT Charo Frank MD HEMATOLOGY & PF4 ORDERABLES Final Result [facility] [address] [place] [address] * ELECTROLYTES (04/08/2019 5:28 EDT) Sodium 136 136 - 145 mEq/L 04/08/2019 6:40 EDT [facility] Potassium 4.2 3.5 - 5.0 mEq/L 04/08/2019 6:40 EDT [facility] Chloride 105 96 - 110 mEq/L 04/08/2019 6:40 EDT [facility] CO2 24 22 - 32 mEq/L 04/08/2019 6:40 EDT [facility] Blood specimen (specimen) BLOOD SPECIMEN / Unknown 04/08/2019 5:28 EDT 04/08/2019 5:47 EDT us Jonatan Martinez MD CHEMISTRY & BLOOD GAS ORDERAB LES Final Result Performing Organization Address [facility]/ZIP Co de Phone Number [facility] [address] [place] [address] * MAGNESIUM (04/08/2019 5:28 EDT) Pathologist [facility] Magnesium 1.9 1.7 - 2.8 mg/dl 04/08/2019 6:40 EDT [facility] Blood specimen (specimen) BLOOD SPECIMEN / Unknown 04/08/2019 5:28 EDT 04/08/2019 5:47 EDT us Kori Nguyen MD CHEMISTRY & BLOOD GAS ORD ERABLES Final Result [facility] [address] [place] [address] * (ABNORMAL) CALCIUM (04/08/2019 5:28 EDT) Calcium 8.0(L) 8.5 - 10.5 mg/dl 04/08/2019 6:40 EDT [facility] Calculated Calcium 9.4 8.5 - 10.5 mg/dl 04/08/2019 6:40 EDT [facility] Blood specimen (specimen) BLOOD SPECIMEN / Unknown 04/08/2019 5:28 EDT 04/08/2019 5:47 EDT us Kori Nguyen MD CHEMISTRY & BLOOD GAS ORD ERABLES Final Result Performing Organization Address [facility]/ZIP Co de Phone Number [facility] [address] [place] [address] * PHOSPHORUS (04/08/2019 5:28 EDT) Phosphorus 3.5 2.5 - 4.5 mg/dl 04/08/2019 6:40 EDT [facility] Blood specimen (specimen) BLOOD SPECIMEN / Unknown 04/08/2019 5:28 EDT 04/08/2019 5:47 EDT us Kori Nguyen MD CHEMISTRY & BLOOD GAS ORD ERABLES Final Result Performing Organization Address [facility] Co de Phone Number [facility] [address] [place] [address] * CREATININE (04/08/2019 5:28 EDT) Creatinine 0.73 0.66 - 1.25 mg/dl 04/08/2019 6:40 EDT [facility] GFR, Calculated 97 >60 ml/min/1.7 3m2 04/08/2019 6:40 EDT [facility] Comment: eGFR calculated using CKD-EPI equation for non Americans. Multiply eGFR by 1.16 for Americans. Blood specimen (specimen) BLOOD SPECIMEN / Unknown 04/08/2019 5:28 EDT 04/08/2019 5:47 EDT us Kori Nguyen MD CHEMISTRY & BLOOD GAS ORD ERABLES Final Result Performing Organization Address City/[facility]/ZIP Co de Phone Number [facility] [address] [place] [address] * (ABNORMAL) GLUCOSE, GLUCOMETER (04/07/2019 11:20 EDT) Glucose, Fingerstick 126(H) 70 - 100 mg/dl 04/07/2019 11:25 EDT [facility] Clinical Writer ID [id number] 04/07/2019 11:25 EDT [facility] Comment:Test Performed by Nu rsing Services BLOOD SPECIMEN / Unknown 04/07/2019 11:20 EDT 04/07/2019 11:25 EDT Leticia Galdamez MD CHEMISTRY & BLOOD GAS ORDERAB LES Final Result Performing Organization Address City/[facility]/ZIP Co de Phone Number [facility] [address] [place] [address] * TRANSFUSE RED BLOOD CELLS (04/07/2019 10:18 EDT) Blood specimen (specimen) Flex Flores MD NURSING TREATMENT - BLOOD ADMIN ISTRATION Final Result * TYPE AND SCREEN (04/07/2019 6:22 EDT) ABO O [facility] Rh Factor Positive [facility] Antibody Screen Negative [facility] Comment: Patient is electronic crossmatch eligible. Units available upon request for transfusion. Specimen Expires: 04/10/2019 @ 23:59 [facility] Blood specimen (specimen) 04/07/2019 6:22 EDT Flex Flores MD BLOOD BANK TESTS Final Result [facility] [address] [place] [address] * PREPARE RED BLOOD CELLS (04/07/2019 5:26 EDT) Product Code [id number] [facility] Donor Number [id number] U [facility] Unit ABO O [facility] Unit Rh POS [facility] Unit Status TR^Transfuse [facility] Product Expiration Date [id number] [facility] Unit Blood Type Code 5100 [facility] Coding System [id number] [facility] Blood specimen (specimen) 04/07/2019 5:26 EDT us Flex Flores MD BLOOD BANK ORDERABLES Final Res ult Performing Organization Address City/State/[facility] Co de Phone Number [facility] [address] [place] [address] * (ABNORMAL) COMPLETE BLOOD COUNT (04/07/2019 4:48 EDT) WBC 5.07 4.0 - 10.4 K/cmm 04/07/2019 5:15 [facility] RBC 2.18(L) 4.36 - 5.78 M/cmm 04/07/2019 5:15 [facility] Hemoglobin 6.6(LL) 13.8 - 17.3 gm/dl 04/07/2019 5:15 [facility] HCT 20.5(LL) 39.5 - 50.2 % 04/07/2019 5:15 [facility] MCV 94 81 - 95 fl 04/07/2019 5:15 [facility] MCH 30.3 27.6 - 33.0 pg 04/07/2019 5:15 [facility] MCHC 32.2(L) 32.8 - 36.4 gm/dl 04/07/2019 5:15 [facility] RDW-CV 16.3(H) <14.2 % 04/07/2019 5:15 [facility] RDW-SD 54.4(H) <46.0 fl 04/07/2019 5:15 [facility] PLT 346 141 - 377 K/cmm 04/07/2019 5:15 [facility] MPV 11.4 9.5 - 12.7 fl 04/07/2019 5:15 [facility] Blood specimen (specimen) BLOOD SPECIMEN / Unknown 04/07/2019 4:48 EDT 04/07/2019 5:02 EDT us Charo Frank MD HEMATOLOGY & PF4 ORDERABLES Final Result [facility] [address] [place] [address] * ELECTROLYTES (04/07/2019 4:48 EDT) Sodium 137 136 - 145 mEq/L 04/07/2019 5:35 EDT [facility] Potassium 3.9 3.5 - 5.0 mEq/L 04/07/2019 5:35 EDT [facility] Chloride 108 96 - 110 mEq/L 04/07/2019 5:35 EDT [facility] CO2 23 22 - 32 mEq/L 04/07/2019 5:35 EDT [facility] Blood specimen (specimen) BLOOD SPECIMEN / Unknown 04/07/2019 4:48 EDT 04/07/2019 5:02 EDT us Jonatan Martinez MD CHEMISTRY & BLOOD GAS ORDERAB LES Final Result Performing Organization Address [facility]/ZIP Co de Phone Number [facility] [address] [place] [address] * MAGNESIUM (04/07/2019 4:48 EDT) Magnesium 2.0 1.7 - 2.8 mg/dl 04/07/2019 5:35 EDT [facility] Blood specimen (specimen) BLOOD SPECIMEN / Unknown 04/07/2019 4:48 EDT 04/07/2019 5:02 EDT us Kori Nguyen MD CHEMISTRY & BLOOD GAS ORD ERABLES Final Result [facility] [address] [place] [address] * (ABNORMAL) CALCIUM (04/07/2019 4:48 EDT) Calcium 7.9(L) 8.5 - 10.5 mg/dl 04/07/2019 5:35 EDT [facility] Calculated Calcium 9.4 8.5 - 10.5 mg/dl 04/07/2019 5:35 EDT [facility] Blood specimen (specimen) BLOOD SPECIMEN / Unknown 04/07/2019 4:48 EDT 04/07/2019 5:02 EDT us Kori Nguyen MD CHEMISTRY & BLOOD GAS ORD ERABLES Final Result [facility] [address] [place] [address] * PHOSPHORUS (04/07/2019 4:48 EDT) Phosphorus 3.7 2.5 - 4.5 mg/dl 04/07/2019 5:35 EDT [facility] Blood specimen (specimen) BLOOD SPECIMEN / Unknown 04/07/2019 4:48 EDT 04/07/2019 5:02 EDT us Kori Nguyen MD CHEMISTRY & BLOOD GAS ORD ERABLES Final Result Performing Organization Address [facility] de Phone Number [facility] [address] [place] [address] * CREATININE (04/07/2019 4:48 EDT) Creatinine 0.78 0.66 - 1.25 mg/dl 04/07/2019 5:35 EDT [facility] GFR, Calculated 95 >60 ml/min/1.7 3m2 04/07/2019 5:35 EDT [facility] Comment: eGFR calculated using CKD-EPI equation for non Americans. Multiply eGFR by 1.16 for Americans. Blood specimen (specimen) BLOOD SPECIMEN / Unknown 04/07/2019 4:48 EDT 04/07/2019 5:02 EDT us Kori Nguyen MD CHEMISTRY & BLOOD GAS ORD ERABLES Final Result [facility] [address] [place] [address] * INSERT PICC LINE (04/06/2019 16:12 EDT) Narrative Jose Kohler RN - 04/06/2019 16:12 EDT Jose Kohler RN ? 04/06/2019 16:12 Central Catheter Insertion First Catheter This Session ?supervisor composing room: Patient Location: [place] [address] Preliminary Data: Insertion Date: 04/06/19 Insertion Time: 1515 First Clinical Writer: Jose Kohler RN RN/MA Documenting Procedure: Manfred Sanchez Pre-procedure: Time Out / Final Moment Performed: Yes Hand Hygiene Immediately Prior To Procedure: Yes Site Disinfected-2% Chlorhex/70% Alcohol: Yes Procedure Site Completely Dry: Yes Entire Patient Draped in Sterile Fashion: Yes Intra-procedure: Sterile Gloves Used: Yes Cap, Mask, and Sterile Gown - Operators: Yes Sterile Field Maintained: Yes Cap and Mask Worn - All Personnel: Yes Post-procedure: Sterile Dressing Applied - Sterile Technique: Yes Dressing Dated And Timed: Yes Needle Passes: VA RN Makes 2 Or Fewer Needle Passes: 2 or fewer passes ?Physician Documentation Pre-Procedure: Procedure To Be Performed: New central line placement Indication: Other (Comment)(previous PICC malpostioned) Line Priority: Routine Tip Confirmation: 3CG Follow-Up X-ray: No Consent Obtained: Yes The patient and/or family have been provided education/training to minimize the risk of central line-associated bloodstream infections. Central Line Type: Central Catheter Type: PICC PICC Type: Solo PICC Central Line Details: Line Location: Left;Brachial Final Tip Location: (CAJ with 3CG) Line Lumens (#): Double Central Line Size: 5 Fr Line Coating: Non-antimicrobial coated Vessel Size: 4 mm Vein Depth (cm): 0.5 cm Line Trim Length: 49 cm Line External Length: 0 Line Securement Device: Statlock device Responsible Service / IR Details: Responsible Service: MIREYA PATEL Lidocaine 1% - Route/Dose (cc's): 1;Intradermal Central Line Materials and Methods: Number of Attempts: 1 Number of Sites Attempted: 1 Number of Kits Used: 1 Location Device Used: 3CG;Ultrasound;Sherlock Central Line Operators: Number Of Operators: 1 First Clinical Writer's Name: Jose Kohler RN First Clinical Writer's Title: Vascular ems driver Unless otherwise noted, there were no complications, no blood loss and no cultures obtained. Jose Kohler RN ?? 04/06/2019 ?? 16:12 Ayaan SMITH IV THERAPY ORDERABLES Final R esult * PORTABLE CHEST 1 VIEW (04/06/2019 8:46 EDT) Anatomical Region Laterality Modality Other 04/06/2019 8:46 EDT 04/06/2019 15:55 EDT Narrative 04/06/2019 15:55 EDT PORTABLE CHEST 1 VIEW ??04/06/2019 8:46 AM Clinical History/Comments: tachypnea Comparison: Multiple prior chest radiographs most recently dated 03/29/[address] chest most recently dated 03/29/2019. Findings: Single portable AP view of the chest. Lines/tubes: ??Right PICC now loops in the internal jugular vein with tip terminating in the right brachiocephalic vein. Status post tracheostomy tube placement. Transesophageal tube extends beyond the GE junction. Soft tissues and bones: No significant abnormalities. Cardiac and mediastinal contours: Normal. Lungs: Patchy multifocal airspace opacities with some areas appearing better and others appearing worse than 7 days prior. Overall perhaps slightly worse in appearance compared with prior. Persistent retrocardiac opacity. Pleura: Bilateral pleural effusions described on CT dated 03/29/2019 are not definitively seen on this nonupright radiograph. No pneumothorax is seen. Impression: 1. Continued bilateral multifocal pneumonia. Overall appears similar or slightly worse in appearance compared with 7 days prior, which could represent true worsening of disease or result from differences in technical factors. 2. Interval change in right-sided PICC, which now loops in the right internal jugular vein and terminates in the right brachiocephalic vein. The findings of this case were discussed with Davin Corado M.D. by Dr. Siomara Parekh at 04/06/2019 10:50 AM. I have personally reviewed the images and the above interpretation and agree with the findings. Procedure Note Kitty Mcgowan MD - 04/06/2019 PORTABLE CHEST 1 VIEW 04/06/2019 8:46 AM Clinical History/Comments: tachypnea Comparison: Multiple prior chest radiographs most recently dated 03/29/[address] chest most recently dated 03/29/2019. Findings: Single portable AP view of the chest. Lines/tubes: Right PICC now loops in the internal jugular vein with tip terminating in the right brachiocephalic vein. Status post tracheostomy tube placement. Transesophageal tube extends beyond the GE junction. Soft tissues and bones: No significant abnormalities. Cardiac and mediastinal contours: Normal. Lungs: Patchy multifocal airspace opacities with some areas appearing better and others appearing worse than 7 days prior. Overall perhaps slightly worse in appearance compared with prior. Persistent retrocardiac opacity. Pleura: Bilateral pleural effusions described on CT dated 03/29/2019 are not definitively seen on this nonupright radiograph. No pneumothorax is seen. Impression: 1. Continued bilateral multifocal pneumonia. Overall appears similar or slightly worse in appearance compared with 7 days prior, which could represent true worsening of disease or result from differences in technical factors. 2. Interval change in right-sided PICC, which now loops in the right internal jugular vein and terminates in the right brachiocephalic vein. The findings of this case were discussed with Davin Corado M.D. by Dr. Siomara Parekh at 04/06/2019 10:50 AM. I have personally reviewed the images and the above interpretation and agree with the findings. us Kathy Garza DO [facility] DIAGNOSTIC IMAGING ORDERAB LES Final Result * (ABNORMAL) COMPLETE BLOOD COUNT (04/06/2019 3:03 EDT) WBC 6.51 4.0 - 10.4 K/cmm 04/06/2019 3:29 T [facility] RBC 2.45(L) 4.36 - 5.78 M/cmm 04/06/2019 3:29 [facility] Hemoglobin 7.4(L) 13.8 - 17.3 gm/dl 04/06/2019 3:29 [facility] HCT 23.1(L) 39.5 - 50.2 % 04/06/2019 3:29 [facility] MCV 94 81 - 95 fl 04/06/2019 3:29 EDT [facility] MCH 30.2 27.6 - 33.0 pg 04/06/2019 3:29 EDT [facility] MCHC 32.0(L) 32.8 - 36.4 gm/dl 04/06/2019 3:29 EDT [facility] RDW-CV 16.8(H) <14.2 % 04/06/2019 3:29 EDT [facility] RDW-SD 56.0(H) <46.0 fl 04/06/2019 3:29 EDT [facility] Anisocytosis 1+ 04/06/2019 3:29 EDT [facility] PLT 294 141 - 377 K/cmm 04/06/2019 3:29 EDT [facility] MPV 11.6 9.5 - 12.7 fl 04/06/2019 3:29 EDT [facility] Blood specimen (specimen) BLOOD SPECIMEN / Unknown 04/06/2019 3:03 EDT 04/06/2019 3:16 EDT us Charo Frank MD HEMATOLOGY & PF4 ORDERABLES Final Result [facility] [address] [place] [address] * (ABNORMAL) ELECTROLYTES (04/06/2019 3:03 EDT) Sodium 135(L) 136 - 145 mEq/L 04/06/2019 3:54 EDT [facility] Potassium 3.4(L) 3.5 - 5.0 mEq/L 04/06/2019 3:54 EDT [facility] Chloride 107 96 - 110 mEq/L 04/06/2019 3:54 EDT [facility] CO2 22 22 - 32 mEq/L 04/06/2019 3:54 EDT [facility] Blood specimen (specimen) BLOOD SPECIMEN / Unknown 04/06/2019 3:03 EDT 04/06/2019 3:16 EDT us Jonatan Martinez MD CHEMISTRY & BLOOD GAS ORDERAB LES Final Result Performing Organization Address City/[facility]/ZIP Co de Phone Number [facility] [address] [place] [address] * MAGNESIUM (04/06/2019 3:03 EDT) Magnesium 2.0 1.7 - 2.8 mg/dl 04/06/2019 3:54 EDT [facility] Blood specimen (specimen) BLOOD SPECIMEN / Unknown 04/06/2019 3:03 EDT 04/06/2019 3:16 EDT us Kori Nguyen MD CHEMISTRY & BLOOD GAS ORD ERABLES Final Result Performing Organization Address [facility] Co de Phone Number [facility] [address] [place] [address] * (ABNORMAL) CALCIUM (04/06/2019 3:03 EDT) Calcium 7.9(L) 8.5 - 10.5 mg/dl 04/06/2019 3:54 EDT [facility] Calculated Calcium 9.3 8.5 - 10.5 mg/dl 04/06/2019 3:54 EDT [facility] Blood specimen (specimen) BLOOD SPECIMEN / Unknown 04/06/2019 3:03 EDT 04/06/2019 3:16 EDT us Kori Nguyen MD CHEMISTRY & BLOOD GAS ORD ERABLES Final Result [facility] [address] [place] [address] * PHOSPHORUS (04/06/2019 3:03 EDT) Phosphorus 3.9 2.5 - 4.5 mg/dl 04/06/2019 3:54 EDT [facility] Blood specimen (specimen) BLOOD SPECIMEN / Unknown 04/06/2019 3:03 EDT 04/06/2019 3:16 EDT us Kori Nguyen MD CHEMISTRY & BLOOD GAS ORD ERABLES Final Result Performing Organization Address City/[facility]/ZIP Co de Phone Number [facility] [address] [place] [address] * CREATININE (04/06/2019 3:03 EDT) Creatinine 0.80 0.66 - 1.25 mg/dl 04/06/2019 3:54 EDT [facility] GFR, Calculated 94 >60 ml/min/1.7 3m2 04/06/2019 3:54 EDT [facility] Comment: eGFR calculated using CKD-EPI equation for non Americans. Multiply eGFR by 1.16 for Americans. Blood specimen (specimen) BLOOD SPECIMEN / Unknown 04/06/2019 3:03 EDT 04/06/2019 3:16 EDT us Kori Nguyen MD CHEMISTRY & BLOOD GAS ORD ERABLES Final Result Performing Organization Address City/[facility] [facility] Co de Phone Number [facility] [address] [place] [address] * ECG REPORT - SCANNED (04/05/2019 8:44 EDT) 04/05/2019 8:44 EDT us Scan 2 [employer] Operator PROCEDURE/MINOR SURGICAL OR DERABLES Final Result * (ABNORMAL) COMPLETE BLOOD COUNT (04/05/2019 5:39 EDT) WBC 6.34 4.0 - 10.4 K/cmm 04/05/2019 6:13 EDT [facility] RBC 2.52(L) 4.36 - 5.78 M/cmm 04/05/2019 6:13 EDT [facility] Hemoglobin 7.7(L) 13.8 - 17.3 gm/dl 04/05/2019 6:13 EDT [facility] HCT 23.3(L) 39.5 - 50.2 % 04/05/2019 6:13 [facility] MCV 93 81 - 95 fl 04/05/2019 6:13 [facility] MCH 30.6 27.6 - 33.0 pg 04/05/2019 6:13 [facility] MCHC 33.0 32.8 - 36.4 gm/dl 04/05/2019 6:13 [facility] RDW-CV 16.6(H) <14.2 % 04/05/2019 6:13 [facility] RDW-SD 54.7(H) <46.0 fl 04/05/2019 6:13 [facility] Anisocytosis 1+ 04/05/2019 6:13 [facility] PLT 231 141 - 377 K/cmm 04/05/2019 6:13 [facility] MPV 12.1 9.5 - 12.7 fl 04/05/2019 6:13 [facility] Blood specimen (specimen) BLOOD SPECIMEN / Unknown 04/05/2019 5:39 EDT 04/05/2019 5:59 EDT us Charo Frank MD HEMATOLOGY & PF4 ORDERABLES Final Result [facility] [address] [place] [address] * (ABNORMAL) ELECTROLYTES (04/05/2019 5:39 EDT) Sodium 132(L) 136 - 145 mEq/L 04/05/2019 6:33 T [facility] Potassium 3.5 3.5 - 5.0 mEq/L 04/05/2019 6:33 [facility] Chloride 106 96 - 110 mEq/L 04/05/2019 6:33 T [facility] CO2 19(L) 22 - 32 mEq/L 04/05/2019 6:33 EDT [facility] Blood specimen (specimen) BLOOD SPECIMEN / Unknown 04/05/2019 5:39 EDT 04/05/2019 5:59 EDT us Jonatan Martinez MD CHEMISTRY & BLOOD GAS ORDERAB LES Final Result [facility] [address] [place] [address] * MAGNESIUM (04/05/2019 5:39 EDT) Magnesium 2.0 1.7 - 2.8 mg/dl 04/05/2019 6:33 EDT [facility] Blood specimen (specimen) BLOOD SPECIMEN / Unknown 04/05/2019 5:39 EDT 04/05/2019 5:59 EDT us Kori Nguyen MD CHEMISTRY & BLOOD GAS ORD ERABLES Final Result Performing Organization Address [facility]/ZIP Co de Phone Number [facility] [address] [place] [address] * (ABNORMAL) CALCIUM (04/05/2019 5:39 EDT) Calcium 7.9(L) 8.5 - 10.5 mg/dl 04/05/2019 6:33 EDT [facility] Calculated Calcium 9.3 8.5 - 10.5 mg/dl 04/05/2019 6:33 EDT [facility] Blood specimen (specimen) BLOOD SPECIMEN / Unknown 04/05/2019 5:39 EDT 04/05/2019 5:59 EDT us Kori Nguyen MD CHEMISTRY & BLOOD GAS ORD ERABLES Final Result [facility] [address] [place] [address] * PHOSPHORUS (04/05/2019 5:39 EDT) Phosphorus 3.3 2.5 - 4.5 mg/dl 04/05/2019 6:33 EDT [facility] Blood specimen (specimen) BLOOD SPECIMEN / Unknown 04/05/2019 5:39 EDT 04/05/2019 5:59 EDT us Kori Nguyen MD CHEMISTRY & BLOOD GAS ORD ERABLES Final Result [facility] [address] [place] [address] * CREATININE (04/05/2019 5:39 EDT) Creatinine 0.74 0.66 - 1.25 mg/dl 04/05/2019 6:33 EDT [facility] GFR, Calculated 97 >60 ml/min/1.7 3m2 04/05/2019 6:33 EDT [facility] Comment: eGFR calculated using CKD-EPI equation for non Americans. Multiply eGFR by 1.16 for Americans. Blood specimen (specimen) BLOOD SPECIMEN / Unknown 04/05/2019 5:39 EDT 04/05/2019 5:59 EDT us Kori Nguyen MD CHEMISTRY & BLOOD GAS ORD ERABLES Final Result Performing Organization Address City/[facility]/ZIP Co de Phone Number [facility] [address] [place] [address] * (ABNORMAL) GLUCOSE, GLUCOMETER (04/05/2019 5:36 EDT) Glucose, Fingerstick 130(H) 70 - 100 mg/dl 04/05/2019 5:54 EDT [facility] Clinical Writer ID [id number] 04/05/2019 5:54 EDT [facility] Comment:Test Performed by [facility] Services BLOOD SPECIMEN / Unknown 04/05/2019 5:36 EDT 04/05/2019 5:54 EDT us Leticia Galdamez MD CHEMISTRY & BLOOD GAS ORDERAB LES Final Result Performing Organization Address City/[facility]/ZIP Co de Phone Number [facility] [address] [place] [address] * (ABNORMAL) GLUCOSE, GLUCOMETER (04/04/2019 23:31 EDT) Glucose, Fingerstick 117(H) 70 - 100 mg/dl 04/04/2019 23:59 EDT [facility] Clinical Writer ID [id number] 04/04/2019 23:59 EDT [facility] Comment:Test Performed by [employer] BLOOD SPECIMEN / Unknown 04/04/2019 23:31 EDT 04/04/2019 23:59 EDT us Leticia Galdamez MD CHEMISTRY & BLOOD GAS ORDERAB LES Final Result Performing Organization Address [facility] Co de Phone Number [facility] [address] [place] [address] * (ABNORMAL) GLUCOSE, GLUCOMETER (04/04/2019 18:31 EDT) Glucose, Fingerstick 117(H) 70 - 100 mg/dl 04/04/2019 18:32 EDT [facility] Clinical Writer ID [id number] 04/04/2019 18:32 EDT [facility] Comment:Test Performed by [employer] BLOOD SPECIMEN / Unknown 04/04/2019 18:31 EDT 04/04/2019 18:32 EDT us Leticia Galdamez MD CHEMISTRY & BLOOD GAS ORDERAB LES Final Result Performing Organization Address [facility] de Phone Number [facility] [address] [place] [address] * (ABNORMAL) GLUCOSE, GLUCOMETER (04/04/2019 11:51 EDT) Glucose, Fingerstick 124(H) 70 - 100 mg/dl 04/04/2019 11:52 EDT [facility] Clinical Writer ID [id number] 04/04/2019 11:52 EDT [facility] Comment:Test Performed by [employer] BLOOD SPECIMEN / Unknown 04/04/2019 11:51 EDT 04/04/2019 11:52 EDT us Leticia Galdamez MD CHEMISTRY & BLOOD GAS ORDERAB LES Final Result Performing Organization Address City/[facility] Co de Phone Number [facility] [address] [place] [address] * (ABNORMAL) GLUCOSE, GLUCOMETER (04/04/2019 6:23 EDT) Glucose, Fingerstick 114(H) 70 - 100 mg/dl 04/04/2019 6:27 EDT [facility] Clinical Writer ID [id number] 04/04/2019 6:27 EDT [facility] Comment:Test Performed by [facility] Services BLOOD SPECIMEN / Unknown 04/04/2019 6:23 EDT 04/04/2019 6:27 EDT Leticia Galdamez MD CHEMISTRY & BLOOD GAS ORDERAB LES Final Result [facility] [address] [place] [address] * (ABNORMAL) COMPLETE BLOOD COUNT (04/04/2019 4:01 EDT) [facility] WBC 5.21 4.0 - 10.4 K/cmm 04/04/2019 4:25 [facility] RBC 2.39(L) 4.36 - 5.78 M/cmm 04/04/2019 4:25 [facility] Hemoglobin 7.3(L) 13.8 - 17.3 gm/dl 04/04/2019 4:25 [facility] HCT 22.4(L) 39.5 - 50.2 % 04/04/2019 4:25 [facility] MCV 94 81 - 95 fl 04/04/2019 4:25 [facility] MCH 30.5 27.6 - 33.0 pg 04/04/2019 4:25 [facility] MCHC 32.6(L) 32.8 - 36.4 gm/dl 04/04/2019 4:25 [facility] RDW-CV 16.3(H) <14.2 % 04/04/2019 4:25 [facility] RDW-SD 53.6(H) <46.0 fl 04/04/2019 4:25 EDT [facility] PLT 172 141 - 377 K/cmm 04/04/2019 4:25 EDT [facility] MPV 12.3 9.5 - 12.7 fl 04/04/2019 4:25 EDT [facility] Blood specimen (specimen) BLOOD SPECIMEN / Unknown 04/04/2019 4:01 EDT 04/04/2019 4:05 EDT Charo Frank MD HEMATOLOGY & PF4 ORDERABLES Final Result Performing Organization Address [facility] de Phone Number [facility] [address] [place] [address] * (ABNORMAL) ELECTROLYTES (04/04/2019 4:01 EDT) Sodium 134(L) 136 - 145 mEq/L 04/04/2019 4:34 EDT [facility] Potassium 3.8 3.5 - 5.0 mEq/L 04/04/2019 4:34 EDT [facility] Chloride 110 96 - 110 mEq/L 04/04/2019 4:34 EDT [facility] CO2 18(L) 22 - 32 mEq/L 04/04/2019 4:34 EDT [facility] Blood specimen (specimen) BLOOD SPECIMEN / Unknown 04/04/2019 4:01 EDT 04/04/2019 4:05 EDT Jonatan Martinez MD CHEMISTRY & BLOOD GAS ORDERAB LES Final Result Performing Organization Address [facility]/ZIP Co de Phone Number [facility] [address] [place] [address] * MAGNESIUM (04/04/2019 4:01 EDT) Magnesium 2.0 1.7 - 2.8 mg/dl 04/04/2019 4:34 EDT [facility] Blood specimen (specimen) BLOOD SPECIMEN / Unknown 04/04/2019 4:01 EDT 04/04/2019 4:05 EDT us Kori Nguyen MD CHEMISTRY & BLOOD GAS ORD ERABLES Final Result Performing Organization Address City/[facility]/ZIP Co de Phone Number [facility] [address] [place] [address] * (ABNORMAL) CALCIUM (04/04/2019 4:01 EDT) Calcium 7.9(L) 8.5 - 10.5 mg/dl 04/04/2019 4:34 EDT [facility] Calculated Calcium 9.4 8.5 - 10.5 mg/dl 04/04/2019 4:34 EDT [facility] Blood specimen (specimen) BLOOD SPECIMEN / Unknown 04/04/2019 4:01 EDT 04/04/2019 4:05 EDT us Kori Nguyen MD CHEMISTRY & BLOOD GAS ORD ERABLES Final Result Performing Organization Address [facility]/ZIP Co de Phone Number [facility] [address] [place] [address] * PHOSPHORUS (04/04/2019 4:01 EDT) Phosphorus 3.3 2.5 - 4.5 mg/dl 04/04/2019 4:34 EDT [facility] Blood specimen (specimen) BLOOD SPECIMEN / Unknown 04/04/2019 4:01 EDT 04/04/2019 4:05 EDT us Kori Nguyen MD CHEMISTRY & BLOOD GAS ORD ERABLES Final Result [facility] [address] [place] [address] * CREATININE (04/04/2019 4:01 EDT) Creatinine 0.84 0.66 - 1.25 mg/dl 04/04/2019 4:34 EDT [facility] GFR, Calculated 92 >60 ml/min/1.7 3m2 04/04/2019 4:34 EDT [facility] Comment: eGFR calculated using CKD-EPI equation for non Americans. Multiply eGFR by 1.16 for Americans. Blood specimen (specimen) BLOOD SPECIMEN / Unknown 04/04/2019 4:01 EDT 04/04/2019 4:05 EDT us oKri Nguyen MD CHEMISTRY & BLOOD GAS ORD ERABLES Final Result Performing Organization Address City/[facility]/ZIP Co de Phone Number [facility] [address] [place] [address] * (ABNORMAL) GLUCOSE, GLUCOMETER (04/03/2019 23:50 EDT) Glucose, Fingerstick 104(H) 70 - 100 mg/dl 04/03/2019 23:54 EDT [facility] Clinical Writer ID [id number] 04/03/2019 23:54 EDT [facility] Comment:Test Performed by [employer] BLOOD SPECIMEN / Unknown 04/03/2019 23:50 EDT 04/03/2019 23:54 EDT us Leticia Galdamez MD CHEMISTRY & BLOOD GAS ORDERAB LES Final Result Performing Organization Address [facility] Co de Phone Number [facility] [address] [place] [address] * (ABNORMAL) GLUCOSE, GLUCOMETER (04/03/2019 18:10 EDT) Glucose, Fingerstick 123(H) 70 - 100 mg/dl 04/03/2019 18:11 EDT [facility] Clinical Writer ID [id number] 04/03/2019 18:11 EDT [facility] Comment:Test Performed by [employer] BLOOD SPECIMEN / Unknown 04/03/2019 18:10 EDT 04/03/2019 18:11 EDT Leticia Galdamez MD CHEMISTRY & BLOOD GAS ORDERAB LES Final Result Performing Organization Address City/[facility]/ZIP Co de Phone Number [facility] [address] [place] [address] * (ABNORMAL) GLUCOSE, GLUCOMETER (04/03/2019 11:50 EDT) Glucose, Fingerstick 121(H) 70 - 100 mg/dl 04/03/2019 11:51 EDT [facility] Clinical Writer ID [id number] 04/03/2019 11:51 EDT [facility] Comment:Test Performed by [employer] BLOOD SPECIMEN / Unknown 04/03/2019 11:50 EDT 04/03/2019 11:51 EDT Leticia Galdamez MD CHEMISTRY & BLOOD GAS ORDERAB LES Final Result Performing Organization Address [facility] Co de Phone Number [facility] [address] [place] [address] * (ABNORMAL) GLUCOSE, GLUCOMETER (04/03/2019 5:09 EDT) Glucose, Fingerstick 125(H) 70 - 100 mg/dl 04/03/2019 5:10 EDT [facility] Clinical Writer ID [id number] 04/03/2019 5:10 EDT [facility] Comment:Test Performed by [employer] BLOOD SPECIMEN / Unknown 04/03/2019 5:09 EDT 04/03/2019 5:10 EDT Leticia Galdamez MD CHEMISTRY & BLOOD GAS ORDERAB LES Final Result Performing Organization Address City/[facility] Co de Phone Number [facility] [address] [place] [id number] * (ABNORMAL) COMPLETE BLOOD COUNT (04/03/2019 4:01 EDT) WBC 3.84(L) 4.0 - 10.4 K/cmm 04/03/2019 4:15 EDT [facility] RBC 2.63(L) 4.36 - 5.78 M/cmm 04/03/2019 4:15 EDT [facility] Hemoglobin 8.2(L) 13.8 - 17.3 gm/dl 04/03/2019 4:15 EDT [facility] HCT 25.0(L) 39.5 - 50.2 % 04/03/2019 4:15 T [facility] MCV 95 81 - 95 fl 04/03/2019 4:15 T [facility] MCH 31.2 27.6 - 33.0 pg 04/03/2019 4:15 [facility] MCHC 32.8 32.8 - 36.4 gm/dl 04/03/2019 4:15 T [facility] RDW-CV 16.6(H) <14.2 % 04/03/2019 4:15 T [facility] RDW-SD 54.4(H) <46.0 fl 04/03/2019 4:15 [facility] Anisocytosis 1+ 04/03/2019 4:15 [facility] PLT 154 141 - 377 K/cmm 04/03/2019 4:15 [facility] MPV 11.9 9.5 - 12.7 fl 04/03/2019 4:15 [facility] Blood specimen (specimen) BLOOD SPECIMEN / Unknown 04/03/2019 4:01 EDT 04/03/2019 4:08 EDT Charo Frank MD HEMATOLOGY & PF4 ORDERABLES Final Result [facility] [address] [place] [address] * (ABNORMAL) ELECTROLYTES (04/03/2019 4:01 EDT) Sodium 136 136 - 145 mEq/L 04/03/2019 4:44 T [facility] Potassium 3.7 3.5 - 5.0 mEq/L 04/03/2019 4:44 T [facility] Chloride 112(H) 96 - 110 mEq/L 04/03/2019 4:44 EDT [facility] CO2 18(L) 22 - 32 mEq/L 04/03/2019 4:44 T [facility] Blood specimen (specimen) BLOOD SPECIMEN / Unknown 04/03/2019 4:01 EDT 04/03/2019 4:08 EDT us Jonatan Martinez MD CHEMISTRY & BLOOD GAS ORDERAB LES Final Result Performing Organization Address City/[facility]/ZIP Co de Phone Number [facility] [address] [place] [address] * MAGNESIUM (04/03/2019 4:01 EDT) Magnesium 2.1 1.7 - 2.8 mg/dl 04/03/2019 4:44 EDT [facility] Blood specimen (specimen) BLOOD SPECIMEN / Unknown 04/03/2019 4:01 EDT 04/03/2019 4:08 EDT us Kori Nguyen MD CHEMISTRY & BLOOD GAS ORD ERABLES Final Result Performing Organization Address [facility] Co de Phone Number [facility] [address] [place] [address] * (ABNORMAL) CALCIUM (04/03/2019 4:01 EDT) Calcium 8.0(L) 8.5 - 10.5 mg/dl 04/03/2019 4:44 EDT [facility] Calculated Calcium 9.4 8.5 - 10.5 mg/dl 04/03/2019 4:44 EDT [facility] Blood specimen (specimen) BLOOD SPECIMEN / Unknown 04/03/2019 4:01 EDT 04/03/2019 4:08 EDT us Kori Nguyen MD CHEMISTRY & BLOOD GAS ORD ERABLES Final Result Performing Organization Address City/[facility]/ZIP Co de Phone Number [facility] [address] [place] [address] * PHOSPHORUS (04/03/2019 4:01 EDT) Phosphorus 3.5 2.5 - 4.5 mg/dl 04/03/2019 4:44 EDT [facility] Blood specimen (specimen) BLOOD SPECIMEN / Unknown 04/03/2019 4:01 EDT 04/03/2019 4:08 EDT us Kori Nguyen MD CHEMISTRY & BLOOD GAS ORD ERABLES Final Result [facility] [address] [place] [address] * CREATININE (04/03/2019 4:01 EDT) Creatinine 0.89 0.66 - 1.25 mg/dl 04/03/2019 4:44 EDT [facility] GFR, Calculated 90 >60 ml/min/1.7 3m2 04/03/2019 4:44 EDT [facility] Comment: eGFR calculated using CKD-EPI equation for non Americans. Multiply eGFR by 1.16 for Americans. Blood specimen (specimen) BLOOD SPECIMEN / Unknown 04/03/2019 4:01 EDT 04/03/2019 4:08 EDT us Kori Nguyen MD CHEMISTRY & BLOOD GAS ORD ERABLES Final Result Performing Organization Address [facility] Co de Phone Number [facility] [address] [place] [address] * (ABNORMAL) GLUCOSE, GLUCOMETER (04/02/2019 23:39 EDT) Glucose, Fingerstick 132(H) 70 - 100 mg/dl 04/02/2019 23:42 EDT [facility] Clinical Writer ID [id number] 04/02/2019 23:42 EDT [facility] Comment:Test Performed by [employer] BLOOD SPECIMEN / Unknown 04/02/2019 23:39 EDT 04/02/2019 23:42 EDT us Leticia Galdamez MD CHEMISTRY & BLOOD GAS ORDERAB LES Final Result Performing Organization Address [facility]/ZIP Co de Phone Number [facility] [address] [place] [address] * (ABNORMAL) ELECTROLYTES (04/02/2019 17:50 EDT) Sodium 137 136 - 145 mEq/L 04/02/2019 18:44 EDT [facility] Potassium 3.8 3.5 - 5.0 mEq/L 04/02/2019 18:44 EDT [facility] Chloride 113(H) 96 - 110 mEq/L 04/02/2019 18:44 EDT [facility] CO2 18(L) 22 - 32 mEq/L 04/02/2019 18:44 EDT [facility] Blood specimen (specimen) BLOOD SPECIMEN / Unknown 04/02/2019 17:50 EDT 04/02/2019 17:57 EDT us Ayaan SMITH CHEMISTRY & BLOOD GAS ORDERAB LES Final Result Performing Organization Address [facility] Co de Phone Number [facility] [address] [place] [address] * (ABNORMAL) GLUCOSE, GLUCOMETER (04/02/2019 17:10 EDT) Glucose, Fingerstick 130(H) 70 - 100 mg/dl 04/02/2019 17:15 EDT [facility] Clinical Writer ID [id number] 04/02/2019 17:15 EDT [facility] Comment:Test Performed by [employer] BLOOD SPECIMEN / Unknown 04/02/2019 17:10 EDT 04/02/2019 17:15 EDT us Leticia Galdamez MD CHEMISTRY & BLOOD GAS ORDERAB LES Final Result [facility] [address] [place] [address] * (ABNORMAL) GLUCOSE, GLUCOMETER (04/02/2019 11:57 EDT) Glucose, Fingerstick 138(H) 70 - 100 mg/dl 04/02/2019 12:01 EDT [facility] Clinical Writer ID [id number] 04/02/2019 12:01 EDT [facility] Comment:Test Performed by [employer] BLOOD SPECIMEN / Unknown 04/02/2019 11:57 EDT 04/02/2019 12:01 EDT Leticia Galdamez MD CHEMISTRY & BLOOD GAS ORDERAB LES Final Result Performing Organization Address [facility] Co de Phone Number [facility] [address] [place] [address] * (ABNORMAL) GLUCOSE, GLUCOMETER (04/02/2019 6:17 EDT) Glucose, Fingerstick 134(H) 70 - 100 mg/dl 04/02/2019 11:54 EDT [facility] Clinical Writer ID [id number] 04/02/2019 11:54 EDT [facility] Comment:Test Performed by [employer] BLOOD SPECIMEN / Unknown 04/02/2019 6:17 EDT 04/02/2019 11:54 EDT Leticia Galdamez MD CHEMISTRY & BLOOD GAS ORDERAB LES Final Result Performing Organization Address [facility] de Phone Number [facility] [address] [place] [address] * (ABNORMAL) COMPLETE BLOOD COUNT (04/02/2019 2:06 EDT) WBC 3.20(L) 4.0 - 10.4 K/cmm 04/02/2019 2:24 EDT [facility] RBC 2.63(L) 4.36 - 5.78 M/cmm 04/02/2019 2:24 EDT [facility] Hemoglobin 8.1(L) 13.8 - 17.3 gm/dl 04/02/2019 2:24 T [facility] HCT 24.8(L) 39.5 - 50.2 % 04/02/2019 2:24 EDT [facility] MCV 94 81 - 95 fl 04/02/2019 2:24 EDT [facility] MCH 30.8 27.6 - 33.0 pg 04/02/2019 2:24 EDT [facility] MCHC 32.7(L) 32.8 - 36.4 gm/dl 04/02/2019 2:24 EDT [facility] RDW-CV 16.3(H) <14.2 % 04/02/2019 2:24 EDT [facility] RDW-SD 52.3(H) <46.0 fl 04/02/2019 2:24 EDT [facility] PLT 146 141 - 377 K/cmm 04/02/2019 2:24 EDT [facility] MPV 12.1 9.5 - 12.7 fl 04/02/2019 2:24 EDT [facility] Blood specimen (specimen) BLOOD SPECIMEN / Unknown 04/02/2019 2:06 EDT 04/02/2019 2:15 EDT Charo Frank MD HEMATOLOGY & PF4 ORDERABLES Final Result Performing Organization Address [facility] [facility] de Phone Number [facility] [address] [place] [address] * ELECTROLYTES (04/02/2019 2:06 EDT) Sodium 137 136 - 145 mEq/L 04/02/2019 2:50 EDT [facility] Potassium 3.7 3.5 - 5.0 mEq/L 04/02/2019 2:50 EDT [facility] Chloride 109 96 - 110 mEq/L 04/02/2019 2:50 EDT [facility] CO2 22 22 - 32 mEq/L 04/02/2019 2:50 EDT [facility] Blood specimen (specimen) BLOOD SPECIMEN / Unknown 04/02/2019 2:06 EDT 04/02/2019 2:15 EDT Jonatan Martinez MD CHEMISTRY & BLOOD GAS ORDERAB LES Final Result Performing Organization Address [facility] Co de Phone Number [facility] [address] [place] [address] * MAGNESIUM (04/02/2019 2:06 EDT) Magnesium 2.2 1.7 - 2.8 mg/dl 04/02/2019 2:50 EDT [facility] Blood specimen (specimen) BLOOD SPECIMEN / Unknown 04/02/2019 2:06 EDT 04/02/2019 2:15 EDT us Kori Nguyen MD CHEMISTRY & BLOOD GAS ORD ERABLES Final Result [facility] [address] [place] [address] * (ABNORMAL) CALCIUM (04/02/2019 2:06 EDT) [facility] Calcium 7.9(L) 8.5 - 10.5 mg/dl 04/02/2019 2:50 EDT [facility] Calculated Calcium 9.4 8.5 - 10.5 mg/dl 04/02/2019 2:50 EDT [facility] Blood specimen (specimen) BLOOD SPECIMEN / Unknown 04/02/2019 2:06 EDT 04/02/2019 2:15 EDT us Kori Nguyen MD CHEMISTRY & BLOOD GAS ORD ERABLES Final Result Performing Organization Address City/[facility]/ZIP Co de Phone Number [facility] [address] [place] [address] * PHOSPHORUS (04/02/2019 2:06 EDT) Phosphorus 4.3 2.5 - 4.5 mg/dl 04/02/2019 2:50 EDT [facility] Blood specimen (specimen) BLOOD SPECIMEN / Unknown 04/02/2019 2:06 EDT 04/02/2019 2:15 EDT us Kori Nguyen MD CHEMISTRY & BLOOD GAS ORD ERABLES Final Result [facility] [address] [place] [address] * CREATININE (04/02/2019 2:06 EDT) Creatinine 1.05 0.66 - 1.25 mg/dl 04/02/2019 2:50 EDT [facility] GFR, Calculated 74 >60 ml/min/1.7 3m2 04/02/2019 2:50 EDT [facility] Comment: eGFR calculated using CKD-EPI equation for non Americans. Multiply eGFR by 1.16 for Americans. Blood specimen (specimen) BLOOD SPECIMEN / Unknown 04/02/2019 2:06 EDT 04/02/2019 2:15 EDT us Kori Nguyen MD CHEMISTRY & BLOOD GAS ORD ERABLES Final Result Performing Organization Address [facility] Co de Phone Number [facility] [address] [place] [address] * (ABNORMAL) GLUCOSE, GLUCOMETER (04/01/2019 23:55 EDT) Glucose, Fingerstick 124(H) 70 - 100 mg/dl 04/01/2019 23:56 EDT [facility] Clinical Writer ID [id number] 04/01/2019 23:56 EDT [facility] Comment:Test Performed by [employer] BLOOD SPECIMEN / Unknown 04/01/2019 23:55 EDT 04/01/2019 23:56 EDT us Leticia Galdamez MD CHEMISTRY & BLOOD GAS ORDERAB LES Final Result Performing Organization Address [facility] Co de Phone Number [facility] [address] [place] [address] * MAGNESIUM (04/01/2019 20:30 EDT) Magnesium 2.2 1.7 - 2.8 mg/dl 04/01/2019 21:12 EDT [facility] Blood specimen (specimen) BLOOD SPECIMEN / Unknown 04/01/2019 20:30 EDT 04/01/2019 20:38 EDT us Christopher Cardenas MD CHEMISTRY & BLOOD GAS ORDERAB LES Final Result Performing Organization Address [facility]/ZIP Co de Phone Number [facility] [address] [place] [address] * CREATININE (04/01/2019 20:30 EDT) Creatinine 1.06 0.66 - 1.25 mg/dl 04/01/2019 21:12 EDT [facility] GFR, Calculated 73 >60 ml/min/1.7 3m2 04/01/2019 21:12 EDT [facility] Comment: eGFR calculated using CKD-EPI equation for non Americans. Multiply eGFR by 1.16 for Americans. Blood specimen (specimen) BLOOD SPECIMEN / Unknown 04/01/2019 20:30 EDT 04/01/2019 20:38 EDT us Christopher Cardenas MD CHEMISTRY & BLOOD GAS ORDERAB LES Final Result Performing Organization Address [facility] de Phone Number [facility] [address] [place] [address] * (ABNORMAL) ELECTROLYTES (04/01/2019 20:30 EDT) [facility] Signature Sodium 137 136 - 145 mEq/L 04/01/2019 21:12 EDT [facility] Potassium 3.4(L) 3.5 - 5.0 mEq/L 04/01/2019 21:12 EDT [facility] Chloride 108 96 - 110 mEq/L 04/01/2019 21:12 EDT [facility] CO2 22 22 - 32 mEq/L 04/01/2019 21:12 EDT [facility] Blood specimen (specimen) BLOOD SPECIMEN / Unknown 04/01/2019 20:30 EDT 04/01/2019 20:38 EDT Christopher Cardenas MD CHEMISTRY & BLOOD GAS ORDERAB LES Final Result Performing Organization Address [facility]/ZIP Co de Phone Number [facility] [address] [place] [address] * (ABNORMAL) GLUCOSE, GLUCOMETER (04/01/2019 17:57 EDT) Glucose, Fingerstick 110(H) 70 - 100 mg/dl 04/01/2019 17:57 EDT [facility] Clinical Writer ID [id number] 04/01/2019 17:57 EDT [facility] Comment:Test Performed by [employer] BLOOD SPECIMEN / Unknown 04/01/2019 17:57 EDT 04/01/2019 17:58 EDT Leticia Galdamez MD CHEMISTRY & BLOOD GAS ORDERAB LES Final Result Performing Organization Address [facility] Co de Phone Number [facility] [address] [place] [address] * (ABNORMAL) GLUCOSE, GLUCOMETER (04/01/2019 11:24 EDT) Glucose, Fingerstick 146(H) 70 - 100 mg/dl 04/01/2019 11:28 EDT [facility] Clinical Writer ID [id number] 04/01/2019 11:28 EDT [facility] Comment:Test Performed by [employer] BLOOD SPECIMEN / Unknown 04/01/2019 11:24 EDT 04/01/2019 11:28 EDT Leticia Galdamez MD CHEMISTRY & BLOOD GAS ORDERAB LES Final Result Performing Organization Address [facility] de Phone Number [facility] [address] [place] [address] * ELECTROLYTES (04/01/2019 5:12 EDT) Sodium 136 136 - 145 mEq/L 04/01/2019 5:38 EDT [facility] Potassium 3.6 3.5 - 5.0 mEq/L 04/01/2019 5:38 EDT [facility] Chloride 106 96 - 110 mEq/L 04/01/2019 5:38 EDT [facility] CO2 26 22 - 32 mEq/L 04/01/2019 5:38 EDT [facility] Blood specimen (specimen) BLOOD SPECIMEN / Unknown 04/01/2019 5:12 EDT 04/01/2019 5:15 EDT us Ayaan SMITH CHEMISTRY & BLOOD GAS ORDERAB LES Final Result [facility] [address] [place] [address] * (ABNORMAL) COMPLETE BLOOD COUNT (04/01/2019 5:12 EDT) WBC 2.75(L) 4.0 - 10.4 K/cmm 04/01/2019 5:22 EDT [facility] RBC 2.43(L) 4.36 - 5.78 M/cmm 04/01/2019 5:22 [facility] Hemoglobin 7.6(L) 13.8 - 17.3 gm/dl 04/01/2019 5:22 [facility] HCT 22.8(L) 39.5 - 50.2 % 04/01/2019 5:22 [facility] MCV 94 81 - 95 fl 04/01/2019 5:22 [facility] MCH 31.3 27.6 - 33.0 pg 04/01/2019 5:22 [facility] MCHC 33.3 32.8 - 36.4 gm/dl 04/01/2019 5:22 [facility] RDW-CV 16.4(H) <14.2 % 04/01/2019 5:22 [facility] RDW-SD 51.2(H) <46.0 fl 04/01/2019 5:22 [facility] PLT 123(L) 141 - 377 K/cmm 04/01/2019 5:22 [facility] MPV 11.9 9.5 - 12.7 fl 04/01/2019 5:22 [facility] Blood specimen (specimen) BLOOD SPECIMEN / Unknown 04/01/2019 5:12 EDT 04/01/2019 5:15 EDT Ayaan Mak MBBS HEMATOLOGY & PF4 ORDERABLES F inal Result Performing Organization Address City/[facility]/ZIP Co de Phone Number [facility] [address] [place] [address] * MAGNESIUM (04/01/2019 5:12 EDT) Magnesium 1.8 1.7 - 2.8 mg/dl 04/01/2019 5:38 EDT [facility] Blood specimen (specimen) BLOOD SPECIMEN / Unknown 04/01/2019 5:12 EDT 04/01/2019 5:15 EDT us Kori Nguyen MD CHEMISTRY & BLOOD GAS ORD ERABLES Final Result Performing Organization Address City/[facility] Co de Phone Number [facility] [address] [place] [address] * (ABNORMAL) CALCIUM (04/01/2019 5:12 EDT) Calcium 7.8(L) 8.5 - 10.5 mg/dl 04/01/2019 5:38 EDT [facility] Calculated Calcium 9.4 8.5 - 10.5 mg/dl 04/01/2019 5:38 EDT [facility] Blood specimen (specimen) BLOOD SPECIMEN / Unknown 04/01/2019 5:12 EDT 04/01/2019 5:15 EDT us Kori Nguyen MD CHEMISTRY & BLOOD GAS ORD ERABLES Final Result Performing Organization Address City/[facility]/ZIP Co de Phone Number [facility] [address] [place] [address] * PHOSPHORUS (04/01/2019 5:12 EDT) Phosphorus 3.9 2.5 - 4.5 mg/dl 04/01/2019 5:38 EDT [facility] Blood specimen (specimen) BLOOD SPECIMEN / Unknown 04/01/2019 5:12 EDT 04/01/2019 5:15 EDT us Kori Nguyen MD CHEMISTRY & BLOOD GAS ORD ERABLES Final Result Performing Organization Address City/[facility]/ZIP Co de Phone Number [facility] [address] [place] [address] * CREATININE (04/01/2019 5:12 EDT) Creatinine 0.95 0.66 - 1.25 mg/dl 04/01/2019 5:38 EDT [facility] GFR, Calculated 84 >60 ml/min/1.7 3m2 04/01/2019 5:38 EDT [facility] Comment: eGFR calculated using CKD-EPI equation for non Americans. Multiply eGFR by 1.16 for Americans. Blood specimen (specimen) BLOOD SPECIMEN / Unknown 04/01/2019 5:12 EDT 04/01/2019 5:15 EDT us Kori Nguyen MD CHEMISTRY & BLOOD GAS ORD ERABLES Final Result Performing Organization Address [facility]/ZIP Co de Phone Number [facility] [address] [place] [address] * (ABNORMAL) GLUCOSE, GLUCOMETER (04/01/2019 5:10 EDT) Glucose, Fingerstick 134(H) 70 - 100 mg/dl 04/01/2019 5:11 EDT [facility] Clinical Writer ID [id number] 04/01/2019 5:11 EDT [facility] Comment:Test Performed by [employer] BLOOD SPECIMEN / Unknown 04/01/2019 5:10 EDT 04/01/2019 5:11 EDT us Leticia Galdamez MD CHEMISTRY & BLOOD GAS ORDERAB LES Final Result Performing Organization Address [facility]/ZIP Co de Phone Number [facility] [address] [place] [address] * (ABNORMAL) GLUCOSE, GLUCOMETER (03/31/2019 23:46 EDT) Glucose, Fingerstick 131(H) 70 - 100 mg/dl 04/01/2019 5:06 EDT [facility] Clinical Writer ID [id number] 04/01/2019 5:06 EDT [facility] Comment:Test Performed by [employer] BLOOD SPECIMEN / Unknown 03/31/2019 23:46 EDT 04/01/2019 5:06 EDT Leticia Galdamez MD CHEMISTRY & BLOOD GAS ORDERAB LES Final Result Performing Organization Address [facility] de Phone Number [facility] [address] [place] [address] * (ABNORMAL) GLUCOSE, GLUCOMETER (03/31/2019 17:21 EDT) Glucose, Fingerstick 123(H) 70 - 100 mg/dl 03/31/2019 17:57 EDT [facility] Clinical Writer ID [id number] 03/31/2019 17:57 EDT [facility] Comment:Test Performed by [employer] BLOOD SPECIMEN / Unknown 03/31/2019 17:21 EDT 03/31/2019 17:57 EDT Leticia Galdamez MD CHEMISTRY & BLOOD GAS ORDERAB LES Final Result Performing Organization Address [facility] Co de Phone Number [facility] [address] [place] [address] * ELECTROLYTES (03/31/2019 17:12 EDT) Sodium 137 136 - 145 mEq/L 03/31/2019 17:46 EDT [facility] Potassium 3.5 3.5 - 5.0 mEq/L 03/31/2019 17:46 EDT [facility] Chloride 104 96 - 110 mEq/L 03/31/2019 17:46 EDT [facility] CO2 27 22 - 32 mEq/L 03/31/2019 17:46 EDT [facility] Blood specimen (specimen) BLOOD SPECIMEN / Unknown 03/31/2019 17:12 EDT 03/31/2019 17:28 EDT us Ayaan SMITH CHEMISTRY & BLOOD GAS ORDERAB LES Final Result Performing Organization Address City/[facility]/ZIP Co de Phone Number [facility] [address] [place] [address] * (ABNORMAL) COMPLETE BLOOD COUNT (03/31/2019 17:12 EDT) WBC 2.63(L) 4.0 - 10.4 K/cmm 03/31/2019 17:37 EDT [facility] RBC 2.32(L) 4.36 - 5.78 M/cmm 03/31/2019 17:37 T [facility] Hemoglobin 7.0(L) 13.8 - 17.3 gm/dl 03/31/2019 17:37 T [facility] HCT 21.6(L) 39.5 - 50.2 % 03/31/2019 17:37 [facility] MCV 93 81 - 95 fl 03/31/2019 17:37 T [facility] MCH 30.2 27.6 - 33.0 pg 03/31/2019 17:37 [facility] MCHC 32.4(L) 32.8 - 36.4 gm/dl 03/31/2019 17:37 [facility] RDW-CV 16.3(H) <14.2 % 03/31/2019 17:37 [facility] RDW-SD 50.5(H) <46.0 fl 03/31/2019 17:37 [facility] PLT 122(L) 141 - 377 K/cmm 03/31/2019 17:37 [facility] MPV 12.7 9.5 - 12.7 fl 03/31/2019 17:37 [facility] Blood specimen (specimen) BLOOD SPECIMEN / Unknown 03/31/2019 17:12 EDT 03/31/2019 17:28 EDT us Ayaan SMITH HEMATOLOGY & PF4 ORDERABLES F inal Result Performing Organization Address City/[facility]/ZIP Co de Phone Number [facility] [address] [place] [address] * (ABNORMAL) GLUCOSE, GLUCOMETER (03/31/2019 12:20 EDT) Glucose, Fingerstick 141(H) 70 - 100 mg/dl 03/31/2019 12:21 EDT [facility] Clinical Writer ID [id number] 03/31/2019 12:21 EDT [facility] Comment:Test Performed by [facility] BLOOD SPECIMEN / Unknown 03/31/2019 12:20 EDT 03/31/2019 12:21 EDT us Leticia Galdamez MD CHEMISTRY & BLOOD GAS ORDERAB LES Final Result Performing Organization Address [facility]/ZIP Co de Phone Number [facility] [address] [place] [address] * (ABNORMAL) ELECTROLYTES (03/31/2019 5:07 EDT) Sodium 139 136 - 145 mEq/L 03/31/2019 5:52 EDT [facility] Potassium 3.4(L) 3.5 - 5.0 mEq/L 03/31/2019 5:52 EDT [facility] Chloride 107 96 - 110 mEq/L 03/31/2019 5:52 EDT [facility] CO2 27 22 - 32 mEq/L 03/31/2019 5:52 EDT [facility] Blood specimen (specimen) BLOOD SPECIMEN / Unknown 03/31/2019 5:07 EDT 03/31/2019 5:17 EDT us Ayaan SMITH CHEMISTRY & BLOOD GAS ORDERAB LES Final Result [facility] [address] [place] [address] * (ABNORMAL) COMPLETE BLOOD COUNT (03/31/2019 5:07 EDT) WBC 2.75(L) 4.0 - 10.4 K/cmm 03/31/2019 5:39 EDT [facility] RBC 2.46(L) 4.36 - 5.78 M/cmm 03/31/2019 5:39 [facility] Hemoglobin 7.7(L) 13.8 - 17.3 gm/dl 03/31/2019 5:39 [facility] HCT 22.9(L) 39.5 - 50.2 % 03/31/2019 5:39 [facility] MCV 93 81 - 95 fl 03/31/2019 5:39 [facility] MCH 31.3 27.6 - 33.0 pg 03/31/2019 5:39 [facility] MCHC 33.6 32.8 - 36.4 gm/dl 03/31/2019 5:39 [facility] RDW-CV 16.3(H) <14.2 % 03/31/2019 5:39 [facility] RDW-SD 50.0(H) <46.0 fl 03/31/2019 5:39 [facility] PLT 124(L) 141 - 377 K/cmm 03/31/2019 5:39 [facility] MPV 12.3 9.5 - 12.7 fl 03/31/2019 5:39 [facility] Blood specimen (specimen) BLOOD SPECIMEN / Unknown 03/31/2019 5:07 EDT 03/31/2019 5:17 EDT us Ayaan SMITH HEMATOLOGY & PF4 ORDERABLES F inal Result [facility] [address] [place] [address] * MAGNESIUM (03/31/2019 5:07 EDT) Magnesium 1.8 1.7 - 2.8 mg/dl 03/31/2019 5:52 [facility] Blood specimen (specimen) BLOOD SPECIMEN / Unknown 03/31/2019 5:07 EDT 03/31/2019 5:17 EDT us Kori Nguyen MD CHEMISTRY & BLOOD GAS ORD ERABLES Final Result [facility] [address] [place] [address] * (ABNORMAL) CALCIUM (03/31/2019 5:07 EDT) Calcium 7.8(L) 8.5 - 10.5 mg/dl 03/31/2019 5:52 EDT [facility] Calculated Calcium 9.5 8.5 - 10.5 mg/dl 03/31/2019 5:52 EDT [facility] Blood specimen (specimen) BLOOD SPECIMEN / Unknown 03/31/2019 5:07 EDT 03/31/2019 5:17 EDT us Kori Nguyen MD CHEMISTRY & BLOOD GAS ORD ERABLES Final Result Performing Organization Address City/[facility]/ZIP Co de Phone Number [facility] [address] [place] [address] * PHOSPHORUS (03/31/2019 5:07 EDT) Phosphorus 3.6 2.5 - 4.5 mg/dl 03/31/2019 5:52 EDT [facility] Blood specimen (specimen) BLOOD SPECIMEN / Unknown 03/31/2019 5:07 EDT 03/31/2019 5:17 EDT us Kori Nguyen MD CHEMISTRY & BLOOD GAS ORD ERABLES Final Result [facility] [address] [place] [id number] * CREATININE (03/31/2019 5:07 EDT) Creatinine 1.17 0.66 - 1.25 mg/dl 03/31/2019 5:52 EDT [facility] GFR, Calculated 65 >60 ml/min/1.7 3m2 03/31/2019 5:52 EDT [facility] Comment: eGFR calculated using CKD-EPI equation for non Americans. Multiply eGFR by 1.16 for Americans. Blood specimen (specimen) BLOOD SPECIMEN / Unknown 03/31/2019 5:07 EDT 03/31/2019 5:17 EDT Kori Nguyen MD CHEMISTRY & BLOOD GAS ORD ERABLES Final Result Performing Organization Address [facility]/ZIP Co de Phone Number [facility] [address] [place] [address] * TRIGLYCERIDE (03/31/2019 5:07 EDT) Triglycerides 128 mg/dl 03/31/2019 5:52 EDT [facility] Comment: Normal:<150 Borderline High:150-199 High:200-499 Very High:>re=733 Blood specimen (specimen) BLOOD SPECIMEN / Unknown 03/31/2019 5:07 EDT 03/31/2019 5:17 EDT Result [facility] Leticia Galdamez MD CHEMISTRY & BLOOD GAS ORDERAB LES Final Result Performing Organization Address [facility]/ZIP Co de Phone Number [facility] [address] [place] [address] * (ABNORMAL) GLUCOSE, GLUCOMETER (03/31/2019 5:06 EDT) Glucose, Fingerstick 157(H) 70 - 100 mg/dl 03/31/2019 5:08 EDT [facility] Clinical Writer ID [id number] 03/31/2019 5:08 EDT [facility] Comment:Test Performed by [facility] Services BLOOD SPECIMEN / Unknown 03/31/2019 5:06 EDT 03/31/2019 5:08 EDT Leticia Galdamez MD CHEMISTRY & BLOOD GAS ORDERAB LES Final Result Performing Organization Address City/[facility]/ZIP Co de Phone Number [facility] [address] [place] [address] * (ABNORMAL) GLUCOSE, GLUCOMETER (03/30/2019 23:05 EDT) Glucose, Fingerstick 145(H) 70 - 100 mg/dl 03/30/2019 23:06 EDT [facility] Clinical Writer ID [id number] 03/30/2019 23:06 EDT [facility] Comment:Test Performed by [employer] [facility] BLOOD SPECIMEN / Unknown 03/30/2019 23:05 EDT 03/30/2019 23:06 EDT us Leticia Galdamez MD CHEMISTRY & BLOOD GAS ORDERAB LES Final Result Performing Organization Address [facility] de Phone Number [facility] [address] [place] [address] * (ABNORMAL) ELECTROLYTES (03/30/2019 16:55 EDT) Pathologist [facility] Sodium 141 136 - 145 mEq/L 03/30/2019 17:17 EDT [facility] Potassium 3.3(L) 3.5 - 5.0 mEq/L 03/30/2019 17:17 T [facility] Chloride 106 96 - 110 mEq/L 03/30/2019 17:17 T [facility] CO2 29 22 - 32 mEq/L 03/30/2019 17:17 T [facility] Blood specimen (specimen) BLOOD SPECIMEN / Unknown 03/30/2019 16:55 EDT 03/30/2019 16:59 EDT us Ayaan SMITH CHEMISTRY & BLOOD GAS ORDERAB LES Final Result Performing Organization Address [facility] Co de Phone Number [facility] [address] [place] [address] * (ABNORMAL) COMPLETE BLOOD COUNT (03/30/2019 16:55 EDT) WBC 2.60(L) 4.0 - 10.4 K/cmm 03/30/2019 17:15 T [facility] RBC 2.43(L) 4.36 - 5.78 M/cmm 03/30/2019 17:15 EDT [facility] Hemoglobin 7.6(L) 13.8 - 17.3 gm/dl 03/30/2019 17:15 [facility] HCT 22.5(L) 39.5 - 50.2 % 03/30/2019 17:15 [facility] MCV [phone] [id number] - 95 fl 03/30/2019 17:15 [facility] MCH 31.3 27.6 - 33.0 pg 03/30/2019 17:15 [facility] MCHC 33.8 32.8 - 36.4 gm/dl 03/30/2019 17:15 [facility] RDW-CV 16.0(H) <14.2 % 03/30/2019 17:15 [facility] RDW-SD 49.0(H) <46.0 fl 03/30/2019 17:15 [facility] PLT 118(L) 141 - 377 K/cmm 03/30/2019 17:15 [facility] MPV 13.0(H) 9.5 - 12.7 fl 03/30/2019 17:15 [facility] Blood specimen (specimen) BLOOD SPECIMEN / Unknown 03/30/2019 16:55 EDT 03/30/2019 16:59 EDT us Ayaan BLANCBS HEMATOLOGY & PF4 ORDERABLES F inal Result [facility] [address] [place] [address] * (ABNORMAL) GLUCOSE, GLUCOMETER (03/30/2019 16:54 EDT) Glucose, Fingerstick 137(H) 70 - 100 mg/dl 03/30/2019 16:55 T [facility] Clinical Writer ID [id number] 03/30/2019 16:55 T [facility] Comment:Test Performed by [employer] BLOOD SPECIMEN / Unknown 03/30/2019 16:54 EDT 03/30/2019 16:55 EDT us Leticia Galdamez MD CHEMISTRY & BLOOD GAS ORDERAB LES Final Result [facility] [address] [place] [address] * (ABNORMAL) GLUCOSE, GLUCOMETER (03/30/2019 12:18 EDT) Glucose, Fingerstick 150(H) 70 - 100 mg/dl 03/30/2019 12:19 EDT [facility] Clinical Writer ID [id number] 03/30/2019 12:19 EDT [facility] Comment:Test Performed by [employer] BLOOD SPECIMEN / Unknown 03/30/2019 12:18 EDT 03/30/2019 12:19 EDT us Leticia Galdamez MD CHEMISTRY & BLOOD GAS ORDERAB LES Final Result Performing Organization Address City/[facility]/ZIP Co de Phone Number [facility] [address] [place] [address] * (ABNORMAL) GLUCOSE, GLUCOMETER (03/30/2019 5:56 EDT) Glucose, Fingerstick 176(H) 70 - 100 mg/dl 03/30/2019 12:18 EDT [facility] Clinical Writer ID [id number] 03/30/2019 12:18 EDT [facility] Comment:Test Performed by [employer] BLOOD SPECIMEN / Unknown 03/30/2019 5:56 EDT 03/30/2019 12:18 EDT us Leticia Galdamez MD CHEMISTRY & BLOOD GAS ORDERAB LES Final Result [facility] [address] [place] [address] * (ABNORMAL) COMPLETE BLOOD COUNT (03/30/2019 3:54 EDT) WBC 2.71(L) 4.0 - 10.4 K/cmm 03/30/2019 4:33 EDT [facility] RBC 2.48(L) 4.36 - 5.78 M/cmm 03/30/2019 4:33 EDT [facility] Hemoglobin 7.9(L) 13.8 - 17.3 gm/dl 03/30/2019 4:33 EDT [facility] HCT 22.8(L) 39.5 - 50.2 % 03/30/2019 4:33 EDT [facility] MCV 92 81 - 95 fl 03/30/2019 4:33 EDT [facility] MCH 31.9 27.6 - 33.0 pg 03/30/2019 4:33 EDT [facility] MCHC 34.6 32.8 - 36.4 gm/dl 03/30/2019 4:33 [facility] RDW-CV 15.9(H) <14.2 % 03/30/2019 4:33 [facility] RDW-SD 48.2(H) <46.0 fl 03/30/2019 4:33 [facility] PLT 120(L) 141 - 377 K/cmm 03/30/2019 4:33 [facility] MPV 12.9(H) 9.5 - 12.7 fl 03/30/2019 4:33 T [facility] BLOOD SPECIMEN / Unknown 03/30/2019 3:54 EDT 03/30/2019 4:11 EDT us Ayaan BLANCBS HEMATOLOGY & PF4 ORDERABLES F inal Result [facility] [address] [place] [id number] * MAGNESIUM (03/30/2019 3:54 EDT) Magnesium 1.9 1.7 - 2.8 mg/dl 03/30/2019 4:29 EDT [facility] Blood specimen (specimen) BLOOD SPECIMEN / Unknown 03/30/2019 3:54 EDT 03/30/2019 4:11 EDT us Kori Nguyen MD CHEMISTRY & BLOOD GAS ORD ERABLES Final Result Performing Organization Address City/[facility]/ZIP Co de Phone Number [facility] [address] [place] [address] * (ABNORMAL) CALCIUM (03/30/2019 3:54 EDT) Calcium 7.6(L) 8.5 - 10.5 mg/dl 03/30/2019 4:29 EDT [facility] Calculated Calcium 9.2 8.5 - 10.5 mg/dl 03/30/2019 4:29 EDT [facility] Blood specimen (specimen) BLOOD SPECIMEN / Unknown 03/30/2019 3:54 EDT 03/30/2019 4:11 EDT us Kori Nguyen MD CHEMISTRY & BLOOD GAS ORD ERABLES Final Result Performing Organization Address [facility] Co de Phone Number [facility] [address] [place] [address] * PHOSPHORUS (03/30/2019 3:54 EDT) Phosphorus 3.7 2.5 - 4.5 mg/dl 03/30/2019 4:29 EDT [facility] Blood specimen (specimen) BLOOD SPECIMEN / Unknown 03/30/2019 3:54 EDT 03/30/2019 4:11 EDT us Kori Nguyen MD CHEMISTRY & BLOOD GAS ORD ERABLES Final Result Performing Organization Address City/[facility]/ZIP Co de Phone Number [facility] [address] [place] [address] * CREATININE (03/30/2019 3:54 EDT) Creatinine 1.21 0.66 - 1.25 mg/dl 03/30/2019 4:29 EDT [facility] GFR, Calculated 62 >60 ml/min/1.7 3m2 03/30/2019 4:29 EDT [facility] Comment: eGFR calculated using CKD-EPI equation for non Americans. Multiply eGFR by 1.16 for Americans. Blood specimen (specimen) BLOOD SPECIMEN / Unknown 03/30/2019 3:54 EDT 03/30/2019 4:11 EDT us Kori Nguyen MD CHEMISTRY & BLOOD GAS ORD ERABLES Final Result Performing Organization Address [facility] Co de Phone Number [facility] [address] [place] [address] * (ABNORMAL) ELECTROLYTES (03/30/2019 3:54 EDT) Sodium 141 136 - 145 mEq/L 03/30/2019 4:29 EDT [facility] Potassium 3.0(L) 3.5 - 5.0 mEq/L 03/30/2019 4:29 EDT [facility] Chloride 106 96 - 110 mEq/L 03/30/2019 4:29 EDT [facility] CO2 30 22 - 32 mEq/L 03/30/2019 4:29 EDT [facility] Blood specimen (specimen) BLOOD SPECIMEN / Unknown 03/30/2019 3:54 EDT 03/30/2019 4:11 EDT us Ayaan SMITH CHEMISTRY & BLOOD GAS ORDERAB LES Final Result Performing Organization Address [facility] de Phone Number [facility] [address] [place] [address] * (ABNORMAL) GLUCOSE, GLUCOMETER (03/29/2019 23:05 EDT) Glucose, Fingerstick 157(H) 70 - 100 mg/dl 03/29/2019 23:10 EDT [facility] Clinical Writer ID [id number] 03/29/2019 23:10 EDT [facility] Comment:Test Performed by [facility] BLOOD SPECIMEN / Unknown 03/29/2019 23:05 EDT 03/29/2019 23:10 EDT us Leticia Galdamez MD CHEMISTRY & BLOOD GAS ORDERAB LES Final Result Performing Organization Address City/[facility]/ZIP Co de Phone Number [facility] [address] [place] [address] * (ABNORMAL) GLUCOSE, GLUCOMETER (03/29/2019 17:38 EDT) Glucose, Fingerstick 127(H) 70 - 100 mg/dl 03/29/2019 17:39 EDT [facility] Clinical Writer ID [id number] 03/29/2019 17:39 EDT [facility] Comment:Test Performed by [employer] BLOOD SPECIMEN / Unknown 03/29/2019 17:38 EDT 03/29/2019 17:39 EDT us Leticia Galdamez MD CHEMISTRY & BLOOD GAS ORDERAB LES Final Result [facility] [address] [place] [address] * CT CHEST (PE) PROTOCOL W CONTRAST (03/29/2019 16:58 EDT) Anatomical Region Laterality Modality Other 03/29/2019 16:5 8 EDT 03/29/2019 17:15 EDT Narrative 03/29/2019 17:15 EDT CTA CHEST W CONTRAST (PE) PROTOCOL ??03/29/2019 4:58 PM Clinical History/Comments: r/o PE, increased resp rate, pH 7.48/pO2 on ABG 54, normal neuro exam Technique: A contrast-enhanced helical CT acquisition of the chest from apices through the lung bases was performed with a reconstructed slice thickness of 0.9 mm with overlapping 0.45 mm intervals following the intravenous administration of 75-100 cc of 350-370 mg% nonionic contrast injected at a rate of 4-5 cc/second. ??A small test bolus was used for image acquisition. Scans were reviewed on a dedicated PACS workstation for analysis. The radiologist reviewed and/or adjusted the images for the 3D/MIP rendering on an independent workstation, as necessary, prior to interpretation. Exam Description: CTA of the chest. Comparison: 03/26/2019 and 03/16/2019. Findings: The pulmonary arteries are adequately opacified and free of evidence of thromboembolic disease, but image quality is degraded by respiratory motion artifact and smaller emboli in the lung bases could be obscured. Lower neck: Tracheostomy appears to be satisfactorily positioned. Calcium is present in the subclavian arteries. Mediastinum and ramon: Numerous stable subcentimeter lymph nodes are likely reactive. ??The trachea and esophagus are normal size. Heart and mediastinal vasculature: ??The aorta is diffusely atherosclerotic with mixed hard and soft plaque, but normal size. The central pulmonary arteries and cardiac chambers are also normal size. There is no evidence of pericardial disease. Pleura: Pleural effusions have increased in size over the past three days but remain relatively small. The left effusion is larger than the right. Lungs: ??There has been modest improvement in dense airspace consolidation and groundglass opacities in all five lobes. The bases remain the most involved. These are superimposed on severe emphysema. Upper abdomen (limited to upper abdomen, not optimized for abdominal imaging): As previously, ascites is present around the liver and spleen. The tip of the transesophageal tube is beyond the gastric antrum. Bones and chest wall: ??No significant abnormality Impression: 1. ??No evidence of pulmonary embolism. 2. ??Improving pneumonia 3. ??Slight enlargement of bilateral pleural effusions Procedure Note Stephane Rodriguez MD, MD - 03/29/2019 CTA CHEST W CONTRAST (PE) PROTOCOL 03/29/2019 4:58 PM Clinical History/Comments: r/o PE, increased resp rate, pH 7.48/pO2 on ABG 54, normal neuro exam Technique: A contrast-enhanced helical CT acquisition of the chest from apices through the lung bases was performed with a reconstructed slice thickness of 0.9 mm with overlapping 0.45 mm intervals following the intravenous administration of 75-100 cc of 350-370 mg% nonionic contrast injected at a rate of 4-5 cc/second. A small test bolus was used for image acquisition. Scans were reviewed on a dedicated PACS workstation for analysis. The radiologist reviewed and/or adjusted the images for the 3D/MIP rendering on an independent workstation, as necessary, prior to interpretation. Exam Description: CTA of the chest. Comparison: 03/26/2019 and 03/16/2019. Findings: The pulmonary arteries are adequately opacified and free of evidence of thromboembolic disease, but image quality is degraded by respiratory motion artifact and smaller emboli in the lung bases could be obscured. Lower neck: Tracheostomy appears to be satisfactorily positioned. Calcium is present in the subclavian arteries. Mediastinum and ramon: Numerous stable subcentimeter lymph nodes are likely reactive. The trachea and esophagus are normal size. Heart and mediastinal vasculature: The aorta is diffusely atherosclerotic with mixed hard and soft plaque, but normal size. The central pulmonary arteries and cardiac chambers are also normal size. There is no evidence of pericardial disease. Pleura: Pleural effusions have increased in size over the past three days but remain relatively small. The left effusion is larger than the right. Lungs: There has been modest improvement in dense airspace consolidation and groundglass opacities in all five lobes. The bases remain the most involved. These are superimposed on severe emphysema. Upper abdomen (limited to upper abdomen, not optimized for abdominal imaging): As previously, ascites is present around the liver and spleen. The tip of the transesophageal tube is beyond the gastric antrum. Bones and chest wall: No significant abnormality Impression: 1. No evidence of pulmonary embolism. 2. Improving pneumonia 3. Slight enlargement of bilateral pleural effusions Domenica High MD [facility] ORDERABLES Final Result * (ABNORMAL) COMPLETE BLOOD COUNT (03/29/2019 15:31 EDT) WBC 2.78(L) 4.0 - 10.4 K/cmm 03/29/2019 16:13 [facility] RBC 2.71(L) 4.36 - 5.78 M/cmm 03/29/2019 16:13 [facility] Hemoglobin 8.5(L) 13.8 - 17.3 gm/dl 03/29/2019 16:13 [facility] HCT 24.5(L) 39.5 - 50.2 % 03/29/2019 16:13 [facility] MCV 90 81 - 95 fl 03/29/2019 16:13 [facility] MCH 31.4 27.6 - 33.0 pg 03/29/2019 16:13 [facility] MCHC 34.7 32.8 - 36.4 gm/dl 03/29/2019 16:13 [facility] RDW-CV 15.8(H) <14.2 % 03/29/2019 16:13 EDT [facility] RDW-SD 48.6(H) <46.0 fl 03/29/2019 16:13 EDT [facility] PLT 130(L) 141 - 377 K/cmm 03/29/2019 16:13 EDT [facility] MPV 12.6 9.5 - 12.7 fl 03/29/2019 16:13 EDT [facility] Blood specimen (specimen) BLOOD SPECIMEN / Unknown 03/29/2019 15:31 EDT 03/29/2019 15:51 EDT Ayaan SMITH HEMATOLOGY & PF4 ORDERABLES F inal Result Performing Organization Address City/[facility] Co de Phone Number [facility] [address] [place] [address] * ELECTROLYTES (03/29/2019 15:31 EDT) Sodium 140 136 - 145 mEq/L 03/29/2019 16:10 EDT [facility] Potassium 3.5 3.5 - 5.0 mEq/L 03/29/2019 16:10 EDT [facility] Chloride 106 96 - 110 mEq/L 03/29/2019 16:10 EDT [facility] CO2 27 22 - 32 mEq/L 03/29/2019 16:10 EDT [facility] Blood specimen (specimen) BLOOD SPECIMEN / Unknown 03/29/2019 15:31 EDT 03/29/2019 15:51 EDT Ayaan SMITH CHEMISTRY & BLOOD GAS ORDERAB LES Final Result Performing Organization Address [facility]/ZIP Co de Phone Number [facility] [address] [place] [address] * PORTABLE CHEST 1 VIEW (03/29/2019 14:36 EDT) Anatomical Region Laterality Modality Other 03/29/2019 14:3 6 EDT 03/29/2019 17:22 EDT Narrative 03/29/2019 17:22 EDT PORTABLE CHEST 1 VIEW ??03/29/2019 2:36 PM Clinical History/Comments: increasing RR, recent tracheostomy Comparison: Multiple chest regressed most recently one day prior 03/28/[address] chest 03/26/2019 Findings: Single portable AP view of the chest. Lines/tubes: ??Status post tracheostomy tube placement. Right-sided PICC terminates in the SVC. Transesophageal tube extends beyond the GE junction. Soft tissues and bones: No significant abnormalities. Cardiac and mediastinal contours: Normal. Lungs: Persistent left retrocardiac opacity. Patchy multifocal airspace opacities with some areas appearing better and others appearing worse than one day prior. Pleura: No pneumothorax or pleural effusion seen. Impression: Changing patterns of bilateral multifocal infiltrates are again noted. I have personally reviewed the images and the above interpretation and agree with the findings. Procedure Note Mitch Fierro MD, MD - 03/29/2019 PORTABLE CHEST 1 VIEW 03/29/2019 2:36 PM Clinical History/Comments: increasing RR, recent tracheostomy Comparison: Multiple chest regressed most recently one day prior 03/28/[address] chest 03/26/2019 Findings: Single portable AP view of the chest. Lines/tubes: Status post tracheostomy tube placement. Right-sided PICC terminates in the SVC. Transesophageal tube extends beyond the GE junction. Soft tissues and bones: No significant abnormalities. Cardiac and mediastinal contours: Normal. Lungs: Persistent left retrocardiac opacity. Patchy multifocal airspace opacities with some areas appearing better and others appearing worse than one day prior. Pleura: No pneumothorax or pleural effusion seen. Impression: Changing patterns of bilateral multifocal infiltrates are again noted. I have personally reviewed the images and the above interpretation and agree with the findings. us Domenica High MD [facility] ORDERABL ES Final Result * (ABNORMAL) BLOOD GAS, G3 ISTAT (03/29/2019 14:22 EDT) pH, i-STAT 7.48(H) 7.35 - 7.45 03/29/2019 14:26 EDT [facility] pCO2, i-STAT 33(L) 35 - 45 mmHg 03/29/2019 14:26 EDT [facility] pO2, i-STAT 54(L) 80 - 105 mmHg 03/29/2019 14:26 [facility] TCO2, i-STAT 25 23 - 27 mEq/L 03/29/2019 14:26 [facility] O2 Saturation 90(L) 95 - 98 % 03/29/2019 14:26 [facility] Base Excess, i-STAT 1 03/29/2019 14:26 [facility] Sample Type ARTERIAL 03/29/2019 14:26 [facility] certification officer ID [id number] 03/29/2019 14:26 [facility] Comment: Test Performed by Respiratory For non-arterial reference ranges, please see ISTAT procedure. BLOOD SPECIMEN / Unknown 03/29/2019 14:22 EDT 03/29/2019 14:26 EDT us Leticia Galdamez MD CHEMISTRY & BLOOD GAS ORDERAB LES Final Result [facility] [address] [place] [address] * (ABNORMAL) GLUCOSE, GLUCOMETER (03/29/2019 11:28 EDT) Glucose, Fingerstick 177(H) 70 - 100 mg/dl 03/29/2019 11:29 EDT [facility] Clinical Writer ID [id number] 03/29/2019 11:29 EDT [facility] Comment:Test Performed by [facility] [employer] [facility] BLOOD SPECIMEN / Unknown 03/29/2019 11:28 EDT 03/29/2019 11:29 EDT us Leticia Galdamez MD CHEMISTRY & BLOOD GAS ORDERAB LES Final Result [facility] [address] [place] [address] * (ABNORMAL) GLUCOSE, GLUCOMETER (03/29/2019 5:35 EDT) Glucose, Fingerstick 176(H) 70 - 100 mg/dl 03/29/2019 5:40 [facility] Clinical Writer ID [id number] 03/29/2019 5:40 [facility] Comment:Test Performed by [facility] BLOOD SPECIMEN / Unknown 03/29/2019 5:35 EDT 03/29/2019 5:40 EDT Leticia Galdamez MD CHEMISTRY & BLOOD GAS ORDERAB LES Final Result [facility] [address] [place] [address] * (ABNORMAL) COMPLETE BLOOD COUNT (03/29/2019 4:23 EDT) WBC 2.41(L) 4.0 - 10.4 K/cmm 03/29/2019 4:49 [facility] RBC 2.65(L) 4.36 - 5.78 M/cmm 03/29/2019 4:49 [facility] Hemoglobin 8.3(L) 13.8 - 17.3 gm/dl 03/29/2019 4:49 [facility] HCT 23.8(L) 39.5 - 50.2 % 03/29/2019 4:49 [facility] MCV 90 81 - 95 fl 03/29/2019 4:49 [facility] MCH 31.3 27.6 - 33.0 pg 03/29/2019 4:49 [facility] MCHC 34.9 32.8 - 36.4 gm/dl 03/29/2019 4:49 [facility] RDW-CV 15.7(H) <14.2 % 03/29/2019 4:49 [facility] RDW-SD 48.9(H) <46.0 fl 03/29/2019 4:49 [facility] PLT 133(L) 141 - 377 K/cmm 03/29/2019 4:49 [facility] MPV 12.8(H) 9.5 - 12.7 fl 03/29/2019 4:49 EDT [facility] Blood specimen (specimen) BLOOD SPECIMEN / Unknown 03/29/2019 4:23 EDT 03/29/2019 4:27 EDT Ayaan SMITH HEMATOLOGY & PF4 ORDERABLES F inal Result Performing Organization Address [facility]/ZIP Co de Phone Number [facility] [address] [place] [address] * ELECTROLYTES (03/29/2019 4:23 EDT) Sodium 143 136 - 145 mEq/L 03/29/2019 5:08 EDT [facility] Potassium 3.6 3.5 - 5.0 mEq/L 03/29/2019 5:08 EDT [facility] Chloride 110 96 - 110 mEq/L 03/29/2019 5:08 EDT [facility] CO2 26 22 - 32 mEq/L 03/29/2019 5:08 EDT [facility] Blood specimen (specimen) BLOOD SPECIMEN / Unknown 03/29/2019 4:23 EDT 03/29/2019 4:27 EDT Ayaan SMITH CHEMISTRY & BLOOD GAS ORDERAB LES Final Result Performing Organization Address [facility] Co de Phone Number [facility] [address] [place] [address] * MAGNESIUM (03/29/2019 4:23 EDT) Magnesium 1.9 1.7 - 2.8 mg/dl 03/29/2019 5:08 EDT [facility] Blood specimen (specimen) BLOOD SPECIMEN / Unknown 03/29/2019 4:23 EDT 03/29/2019 4:27 EDT Kori Nguyen MD CHEMISTRY & BLOOD GAS ORD ERABLES Final Result Performing Organization Address City/[facility]/ZIP Co de Phone Number [facility] [address] [place] [address] * (ABNORMAL) CALCIUM (03/29/2019 4:23 EDT) Calcium 7.7(L) 8.5 - 10.5 mg/dl 03/29/2019 5:08 EDT [facility] Calculated Calcium 9.3 8.5 - 10.5 mg/dl 03/29/2019 5:08 EDT [facility] Blood specimen (specimen) BLOOD SPECIMEN / Unknown 03/29/2019 4:23 EDT 03/29/2019 4:27 EDT us Kori Nguyen MD CHEMISTRY & BLOOD GAS ORD ERABLES Final Result [facility] [address] [place] [address] * (ABNORMAL) PHOSPHORUS (03/29/2019 4:23 EDT) Phosphorus 2.3(L) 2.5 - 4.5 mg/dl 03/29/2019 5:08 EDT [facility] Blood specimen (specimen) BLOOD SPECIMEN / Unknown 03/29/2019 4:23 EDT 03/29/2019 4:27 EDT us Kori Nguyen MD CHEMISTRY & BLOOD GAS ORD ERABLES Final Result [facility] [address] [place] [address] * (ABNORMAL) CREATININE (03/29/2019 4:23 EDT) Creatinine 1.31(H) 0.66 - 1.25 mg/dl 03/29/2019 5:08 EDT [facility] GFR, Calculated 57(L) >60 ml/min/1.7 3m2 03/29/2019 5:08 EDT [facility] Comment: eGFR calculated using CKD-EPI equation for non Americans. Multiply eGFR by 1.16 for Americans. Blood specimen (specimen) BLOOD SPECIMEN / Unknown 03/29/2019 4:23 EDT 03/29/2019 4:27 EDT us Kori Nguyen MD CHEMISTRY & BLOOD GAS ORD ERABLES Final Result Performing Organization Address [facility]/ZIP Co de Phone Number [facility] [address] [place] [address] * PROCALCITONIN, INFECTIOUS DISEASE USE ONLY (03/29/2019 4:23 EDT) Procalcitonin, Infectious Disease Use Only 0.63 ng/ml 03/29/2019 9:41 EDT [facility] Comment: Procalcitonin levels <0.5 ng/ml represent a low risk of severe sepsis and/or septic shock. Blood specimen (specimen) BLOOD SPECIMEN / Unknown 03/29/2019 4:23 EDT 03/29/2019 4:27 EDT us Leticia Galdamez MD CHEMISTRY & BLOOD GAS ORDERAB LES Final Result Performing Organization Address [facility] Co de Phone Number [facility] [address] [place] [address] * (ABNORMAL) GLUCOSE, GLUCOMETER (03/28/2019 23:52 EDT) Glucose, Fingerstick 143(H) 70 - 100 mg/dl 03/29/2019 22:23 EDT [facility] Clinical Writer ID [id number] 03/29/2019 22:23 EDT [facility] Comment:Test Performed by [facility] Services BLOOD SPECIMEN / Unknown 03/28/2019 23:52 EDT 03/29/2019 22:23 EDT us Leticia Galdamez MD CHEMISTRY & BLOOD GAS ORDERAB LES Final Result Performing Organization Address City/[facility] Co de Phone Number [facility] [address] [place] [address] * (ABNORMAL) ELECTROLYTES (03/28/2019 22:39 EDT) Sodium 143 136 - 145 mEq/L 03/28/2019 23:21 EDT [facility] Potassium 3.3(L) 3.5 - 5.0 mEq/L 03/28/2019 23:21 EDT [facility] Chloride 110 96 - 110 mEq/L 03/28/2019 23:21 EDT [facility] CO2 28 22 - 32 mEq/L 03/28/2019 23:21 EDT [facility] Blood specimen (specimen) BLOOD SPECIMEN / Unknown 03/28/2019 22:39 EDT 03/28/2019 23:03 EDT Ayaan SMITH CHEMISTRY & BLOOD GAS ORDERAB LES Final Result Performing Organization Address City/[facility]/ZIP Co de Phone Number [facility] [address] [place] [address] * (ABNORMAL) GLUCOSE, GLUCOMETER (03/28/2019 17:50 EDT) [facility] Signature Glucose, Fingerstick 129(H) 70 - 100 mg/dl 03/28/2019 18:38 EDT [facility] Clinical Writer ID [id number] 03/28/2019 18:38 EDT [facility] Comment:Test Performed by [employer] BLOOD SPECIMEN / Unknown 03/28/2019 17:50 EDT 03/28/2019 18:38 EDT Leticia Galdamez MD CHEMISTRY & BLOOD GAS ORDERAB LES Final Result [facility] [address] [place] [address] * TRANSFUSE RED BLOOD CELLS (03/28/2019 17:47 EDT) Blood specimen (specimen) Jonatan Martinez MD NURSING TREATMENT - BLOOD ADM INISTRATION Final Result * TRANSFUSE RED BLOOD CELLS (03/28/2019 17:47 EDT) Blood specimen (specimen) Jonatan Martinez MD NURSING TREATMENT - BLOOD ADM INISTRATION Final Result * XRAY FEEDING TUBE PLACEMENT (03/28/2019 15:56 EDT) Anatomical Region Laterality Modality Other 03/28/2019 15:5 6 EDT 03/28/2019 16:33 EDT Narrative 03/28/2019 16:33 EDT XRAY FEEDING TUBE PLACEMENT ??03/28/2019 3:56 PM History: ?? feeding tube was repositioned during trach placement Comparison: CT abdomen March 26, 2019. Abdominal radiograph March 21, 2019. Technique: 2 frontal views of the abdomen Findings: A transesophageal feeding tube enters the stomach and terminates in the fundus of the stomach. The imaged portions of the lungs are unremarkable. Impression: Transesophageal feeding tube terminates in the fundus of the stomach. I have personally reviewed the images and the above interpretation and agree with the findings. Procedure Note Betzy Mckeon MD, - 03/28/2019 XRAY FEEDING TUBE PLACEMENT 03/28/2019 3:56 PM History: feeding tube was repositioned during trach placement Comparison: CT abdomen March 26, 2019. Abdominal radiograph March 21, 2019. Technique: 2 frontal views of the abdomen Findings: A transesophageal feeding tube enters the stomach and terminates in the fundus of the stomach. The imaged portions of the lungs are unremarkable. Impression: Transesophageal feeding tube terminates in the fundus of the stomach. I have personally reviewed the images and the above interpretation and agree with the findings. Jonatan Martinez MD IMG DIAGNOSTIC IMAGING ORDERA BLES Final Result * PREPARE RED BLOOD CELLS (03/28/2019 14:37 EDT) Product Code [id number] [facility] Donor Number [id number] [facility] Unit ABO O [facility] Unit Rh POS [facility] Unit Status TR^Transfuse [facility] Product Expiration Date [id number] [facility] Unit Blood Type Code 5100 [facility] Coding System [id number] [facility] Blood specimen (specimen) 03/28/2019 14:37 EDT us Jonatan Martinez MD BLOOD BANK ORDERABLES Final R esult Performing Organization Address [facility] Co de Phone Number [facility] [address] [place] [address] * (ABNORMAL) GLUCOSE, GLUCOMETER (03/28/2019 13:58 EDT) Glucose, Fingerstick 151(H) 70 - 100 mg/dl 03/28/2019 14:01 EDT [facility] Clinical Writer ID [id number] 03/28/2019 14:01 EDT [facility] Comment:Test Performed by [facility] Services BLOOD SPECIMEN / Unknown 03/28/2019 13:58 EDT 03/28/2019 14:01 EDT us Leticia Galdamez MD CHEMISTRY & BLOOD GAS ORDERAB LES Final Result Performing Organization Address [facility] Co de Phone Number [facility] [address] [place] [address] * PORTABLE CHEST 1 VIEW (03/28/2019 13:50 EDT) Anatomical Region Laterality Modality Other 03/28/2019 13:5 0 EDT 03/28/2019 14:41 EDT Narrative 03/28/2019 14:41 EDT PORTABLE CHEST 1 VIEW ??03/28/2019 1:50 PM Clinical History/Comments: Respiratory failure, s/p Tracheostomy, eval for ptx, atelectasis, tube placement Comparison: 03/17 through 03/26/2019 TECHNIQUE: Recumbent AP chest Findings: The endotracheal tube has been replaced with a satisfactorily positioned tracheostomy tube. The left jugular catheter has been removed. The tip of the new right PICC overlies the mid SVC. New feeding tube tip is in the gastric fundus. There is persistent dense left retrocardiac consolidation. Patchy airspace opacities elsewhere have slightly changed in appearance with some looking slightly worse and others slightly improved. The shifting pattern is most consistent with edema superimposed on the pre-existing pneumonia. Left-sided pleural effusion looks smaller, but this may reflect shifting fluid with the patient more supine. The cardiac silhouette remains normal in size. There is no evidence of pneumothorax, but one cannot be excluded on this non-upright radiograph. Procedure Note Stephane Rodriguez MD, - 03/28/2019 PORTABLE CHEST 1 VIEW 03/28/2019 1:50 PM Clinical History/Comments: Respiratory failure, s/p Tracheostomy, eval for ptx, atelectasis, tube placement Comparison: 03/17 through 03/26/2019 TECHNIQUE: Recumbent AP chest Findings: The endotracheal tube has been replaced with a satisfactorily positioned tracheostomy tube. The left jugular catheter has been removed. The tip of the new right PICC overlies the mid SVC. New feeding tube tip is in the gastric fundus. There is persistent dense left retrocardiac consolidation. Patchy airspace opacities elsewhere have slightly changed in appearance with some looking slightly worse and others slightly improved. The shifting pattern is most consistent with edema superimposed on the pre-existing pneumonia. Left-sided pleural effusion looks smaller, but this may reflect shifting fluid with the patient more supine. The cardiac silhouette remains normal in size. There is no evidence of pneumothorax, but one cannot be excluded on this non-upright radiograph. us Juan Omalley MD IMG DIAGNOSTIC IMAGING MARYBEL MCGRAW Final Result * (ABNORMAL) COMPLETE BLOOD COUNT (03/28/2019 13:26 EDT) WBC 2.53(L) 4.0 - 10.4 K/cmm 03/28/2019 14:32 [facility] RBC 2.09(L) 4.36 - 5.78 M/cmm 03/28/2019 14:32 [facility] Hemoglobin 6.7(LL) 13.8 - 17.3 gm/dl 03/28/2019 14:32 [facility] HCT 19.6(LL) 39.5 - 50.2 % 03/28/2019 14:32 [facility] MCV 94 81 - 95 fl 03/28/2019 14:32 [facility] MCH 32.1 27.6 - 33.0 pg 03/28/2019 14:32 [facility] MCHC 34.2 32.8 - 36.4 gm/dl 03/28/2019 14:32 [facility] RDW-CV 15.7(H) <14.2 % 03/28/2019 14:32 [facility] RDW-SD 51.6(H) <46.0 fl 03/28/2019 14:32 [facility] PLT 135(L) 141 - 377 K/cmm 03/28/2019 14:32 [facility] MPV 13.0(H) 9.5 - 12.7 fl 03/28/2019 14:32 [facility] Nucleated RBC's 100 WBC'S 9 14:32 [facility] Blood specimen (specimen) BLOOD SPECIMEN / Unknown 03/28/2019 13:26 EDT 03/28/2019 14:14 EDT Ayaan SMITH HEMATOLOGY & PF4 ORDERABLES F inal Result [facility] [address] [place] [address] * (ABNORMAL) ELECTROLYTES (03/28/2019 13:26 EDT) Sodium 139 136 - 145 mEq/L 03/28/2019 14:59 [facility] Potassium 3.3(L) 3.5 - 5.0 mEq/L 03/28/2019 14:59 T [facility] Chloride 106 96 - 110 mEq/L 03/28/2019 14:59 T [facility] CO2 24 22 - 32 mEq/L 03/28/2019 14:59 [facility] Blood specimen (specimen) BLOOD SPECIMEN / Unknown 03/28/2019 13:26 EDT 03/28/2019 14:14 EDT Ayaan SMITH CHEMISTRY & BLOOD GAS ORDERAB LES Final Result [facility] [address] [place] [address] * TRANSFUSION RECORD - SCANNED (03/28/2019 8:45 EDT) 03/28/2019 8:45 EDT us Scan 2 [employer] LAB INFO SERVICE AND SUPPOR T & PHONE RESULT Final Result * (ABNORMAL) GLUCOSE, GLUCOMETER (03/28/2019 6:16 EDT) Glucose, Fingerstick 129(H) 70 - 100 mg/dl 03/28/2019 6:20 EDT [facility] Clinical Writer ID [id number] 03/28/2019 6:20 EDT [facility] Comment:Test Performed by [facility] BLOOD SPECIMEN / Unknown 03/28/2019 6:16 EDT 03/28/2019 6:20 EDT us Leticia Galdamez MD CHEMISTRY & BLOOD GAS ORDERAB LES Final Result Performing Organization Address [facility]/ZIP Co de Phone Number [facility] [address] [place] [address] * MAGNESIUM (03/28/2019 2:08 EDT) Magnesium 1.9 1.7 - 2.8 mg/dl 03/28/2019 2:50 EDT [facility] Blood specimen (specimen) BLOOD SPECIMEN / Unknown 03/28/2019 2:08 EDT 03/28/2019 2:29 EDT us Kori Nguyen MD CHEMISTRY & BLOOD GAS ORD ERABLES Final Result [facility] [address] [place] [address] * (ABNORMAL) COMPLETE BLOOD COUNT (03/28/2019 2:08 EDT) WBC 3.24(L) 4.0 - 10.4 K/cmm 03/28/2019 2:44 [facility] RBC 2.33(L) 4.36 - 5.78 M/cmm 03/28/2019 2:44 [facility] Hemoglobin 7.3(L) 13.8 - 17.3 gm/dl 03/28/2019 2:44 [facility] HCT 21.4(L) 39.5 - 50.2 % 03/28/2019 2:44 [facility] MCV 92 81 - 95 fl 03/28/2019 2:44 [facility] MCH 31.3 27.6 - 33.0 pg 03/28/2019 2:44 [facility] MCHC 34.1 32.8 - 36.4 gm/dl 03/28/2019 2:44 [facility] RDW-CV 15.7(H) <14.2 % 03/28/2019 2:44 [facility] RDW-SD 50.6(H) <46.0 fl 03/28/2019 2:44 [facility] PLT 142 141 - 377 K/cmm 03/28/2019 2:44 [facility] MPV 12.6 9.5 - 12.7 fl 03/28/2019 2:44 [facility] Nucleated RBC's 1 /100 WBC'S 9 2:44 [facility] Blood specimen (specimen) BLOOD SPECIMEN / Unknown 03/28/2019 2:08 EDT 03/28/2019 2:29 EDT us Domenica High MD HEMATOLOGY & PF4 ORDERABLES Fin al Result [facility] [address] [place] [address] * (ABNORMAL) CALCIUM (03/28/2019 2:08 EDT) Calcium 7.6(L) 8.5 - 10.5 mg/dl 03/28/2019 2:50 EDT [facility] Calculated Calcium 9.3 8.5 - 10.5 mg/dl 03/28/2019 2:50 EDT [facility] Blood specimen (specimen) BLOOD SPECIMEN / Unknown 03/28/2019 2:08 EDT 03/28/2019 2:29 EDT us Kori Nguyen MD CHEMISTRY & BLOOD GAS ORD ERABLES Final Result Performing Organization Address City/[facility]/ZIP Co de Phone Number [facility] [address] [place] [address] * (ABNORMAL) PHOSPHORUS (03/28/2019 2:08 EDT) Phosphorus 2.2(L) 2.5 - 4.5 mg/dl 03/28/2019 2:50 EDT [facility] Blood specimen (specimen) BLOOD SPECIMEN / Unknown 03/28/2019 2:08 EDT 03/28/2019 2:29 EDT us Kori Nguyen MD CHEMISTRY & BLOOD GAS ORD ERABLES Final Result Performing Organization Address [facility] Co de Phone Number [facility] [address] [place] [address] * (ABNORMAL) CREATININE (03/28/2019 2:08 EDT) Creatinine 1.37(H) 0.66 - 1.25 mg/dl 03/28/2019 2:50 EDT [facility] GFR, Calculated 54(L) >60 ml/min/1.7 3m2 03/28/2019 2:50 EDT [facility] Comment: eGFR calculated using CKD-EPI equation for non Americans. Multiply eGFR by 1.16 for Americans. Blood specimen (specimen) BLOOD SPECIMEN / Unknown 03/28/2019 2:08 EDT 03/28/2019 2:29 EDT us Kori Nguyen MD CHEMISTRY & BLOOD GAS ORD ERABLES Final Result Performing Organization Address City/[facility]/ZIP Co de Phone Number [facility] [address] [place] [address] * (ABNORMAL) ELECTROLYTES (03/28/2019 2:08 EDT) Sodium 142 136 - 145 mEq/L 03/28/2019 2:50 EDT [facility] Potassium 4.1 3.5 - 5.0 mEq/L 03/28/2019 2:50 EDT [facility] Chloride 112(H) 96 - 110 mEq/L 03/28/2019 2:50 EDT [facility] CO2 27 22 - 32 mEq/L 03/28/2019 2:50 EDT [facility] Blood specimen (specimen) BLOOD SPECIMEN / Unknown 03/28/2019 2:08 EDT 03/28/2019 2:29 EDT us Kori Nguyen MD CHEMISTRY & BLOOD GAS ORD ERABLES Final Result Performing Organization Address [facility]/ZIP Co de Phone Number [facility] [address] [place] [address] * TRIGLYCERIDE (03/28/2019 2:08 EDT) Triglycerides 125 mg/dl 03/28/2019 2:50 EDT [facility] Comment: Normal:<150 Borderline High:150-199 High:200-499 Very High:>st=908 Blood specimen (specimen) BLOOD SPECIMEN / Unknown 03/28/2019 2:08 EDT 03/28/2019 2:29 EDT us Leticia Galdamez MD CHEMISTRY & BLOOD GAS ORDERAB LES Final Result [facility] [address] [place] [address] * (ABNORMAL) GLUCOSE, GLUCOMETER (03/27/2019 23:29 EDT) Glucose, Fingerstick 196(H) 70 - 100 mg/dl 03/27/2019 23:33 EDT [facility] Clinical Writer ID [id number] 03/27/2019 23:33 EDT [facility] Comment:Test Performed by [facility] Services BLOOD SPECIMEN / Unknown 03/27/2019 23:29 EDT 03/27/2019 23:33 EDT us Leticia Galdamez MD CHEMISTRY & BLOOD GAS ORDERAB LES Final Result Performing Organization Address [facility] Co de Phone Number [facility] [address] [place] [address] * (ABNORMAL) ELECTROLYTES (03/27/2019 20:16 EDT) Sodium 142 136 - 145 mEq/L 03/27/2019 20:58 EDT [facility] Potassium 3.2(L) 3.5 - 5.0 mEq/L 03/27/2019 20:58 EDT [facility] Chloride 109 96 - 110 mEq/L 03/27/2019 20:58 EDT [facility] CO2 28 22 - 32 mEq/L 03/27/2019 20:58 EDT [facility] Blood specimen (specimen) BLOOD SPECIMEN / Unknown 03/27/2019 20:16 EDT 03/27/2019 20:40 EDT us Kori Nguyen MD CHEMISTRY & BLOOD GAS ORD ERABLES Final Result Performing Organization Address [facility] Phone Number [facility] [address] [place] [address] * (ABNORMAL) GLUCOSE, GLUCOMETER (03/27/2019 17:44 EDT) Glucose, Fingerstick 159(H) 70 - 100 mg/dl 03/27/2019 17:48 EDT [facility] Clinical Writer ID [id number] 03/27/2019 17:48 EDT [facility] Comment:Test Performed by [employer] BLOOD SPECIMEN / Unknown 03/27/2019 17:44 EDT 03/27/2019 17:48 EDT us Leticia Galdamez MD CHEMISTRY & BLOOD GAS ORDERAB LES Final Result Performing Organization Address City/[facility]/ZIP Co de Phone Number [facility] [address] [place] [address] * TRIGLYCERIDE (03/27/2019 13:42 EDT) Pathologist [facility] Triglycerides 161 mg/dl 03/27/2019 14:23 EDT [facility] Comment: Normal:<150 Borderline High:150-199 High:200-499 Very High:>pd=465 BLOOD SPECIMEN / Unknown 03/27/2019 13:42 EDT 03/27/2019 14:01 EDT us Kori Nguyen MD CHEMISTRY & BLOOD GAS ORD ERABLES Final Result Performing Organization Address City/[facility]/ZIP Co de Phone Number [facility] [address] [place] [address] * ELECTROLYTES (03/27/2019 13:42 EDT) [facility] Sodium 141 136 - 145 mEq/L 03/27/2019 14:23 EDT [facility] Potassium 3.5 3.5 - 5.0 mEq/L 03/27/2019 14:23 T [facility] Chloride 107 96 - 110 mEq/L 03/27/2019 14:23 T [facility] CO2 27 22 - 32 mEq/L 03/27/2019 14:23 T [facility] Blood specimen (specimen) BLOOD SPECIMEN / Unknown 03/27/2019 13:42 EDT 03/27/2019 14:01 EDT us Kori Nguyen MD CHEMISTRY & BLOOD GAS ORD ERABLES Final Result [facility] [address] [place] [address] * (ABNORMAL) COMPLETE BLOOD COUNT (03/27/2019 13:42 EDT) Pathologist [facility] WBC 4.06 4.0 - 10.4 K/cmm 03/27/2019 14:18 EDT [facility] RBC 2.63(L) 4.36 - 5.78 M/cmm 03/27/2019 14:18 [facility] Hemoglobin 8.4(L) 13.8 - 17.3 gm/dl 03/27/2019 14:18 [facility] HCT 24.5(L) 39.5 - 50.2 % 03/27/2019 14:18 [facility] MCV 93 81 - 95 fl 03/27/2019 14:18 [facility] MCH 31.9 27.6 - 33.0 pg 03/27/2019 14:18 [facility] MCHC 34.3 32.8 - 36.4 gm/dl 03/27/2019 14:18 [facility] RDW-CV 15.9(H) <14.2 % 03/27/2019 14:18 [facility] RDW-SD 51.8(H) <46.0 fl 03/27/2019 14:18 [facility] PLT 147 141 - 377 K/cmm 03/27/2019 14:18 [facility] MPV 12.8(H) 9.5 - 12.7 fl 03/27/2019 14:18 [facility] Blood specimen (specimen) BLOOD SPECIMEN / Unknown 03/27/2019 13:42 EDT 03/27/2019 14:01 EDT Ayaan SMITH HEMATOLOGY & PF4 ORDERABLES F inal Result [facility] [address] [place] [address] * (ABNORMAL) GLUCOSE, GLUCOMETER (03/27/2019 12:14 EDT) Glucose, Fingerstick 141(H) 70 - 100 mg/dl 03/27/2019 12:18 EDT [facility] Clinical Writer ID [id number] 03/27/2019 12:18 T [facility] Comment:Test Performed by [employer] BLOOD SPECIMEN / Unknown 03/27/2019 12:14 EDT 03/27/2019 12:18 EDT us Leticia Galdamez MD CHEMISTRY & BLOOD GAS ORDERAB LES Final Result Performing Organization Address [facility]/ZIP Co de Phone Number [facility] [address] [place] [address] * TRANSFUSE RED BLOOD CELLS (03/27/2019 8:53 EDT) Blood specimen (specimen) Flex Flores MD NURSING TREATMENT - BLOOD ADMIN ISTRATION Final Result * TRANSFUSE RED BLOOD CELLS (03/27/2019 8:53 EDT) Blood specimen (specimen) us Flex Flores MD NURSING TREATMENT - BLOOD ADMIN ISTRATION Final Result * INPATIENT ADD-ON (03/27/2019 7:10 EDT) Tests to be added ELECTROLYTES 03/27/2019 7:07 EDT [facility] Number for problems M4 03/27/2019 7:14 EDT [facility] Accession number [id number] 03/27/2019 7:14 EDT [facility] TOPOGRAPHY UNKNOWN / Unknown 03/27/2019 7:10 EDT 03/27/2019 7:14 EDT Ayaan BLANCBS HEMATOLOGY & PF4 ORDERABLES F inal Result Performing Organization Address City/[facility] Co de Phone Number [facility] [address] [place] [address] * TYPE AND SCREEN (03/27/2019 6:00 EDT) Antibody Screen Negative [facility] Comment: Patient is electronic crossmatch eligible. Units available upon request for transfusion. Specimen Expires: 03/30/2019 @ 23:59 [facility] ABO O [facility] Rh Factor Positive [facility] Blood specimen (specimen) 03/27/2019 6:00 EDT Flex Flores MD BLOOD BANK TESTS Final Result Performing Organization Address [facility]/ZIP Co de Phone Number [facility] [address] [place] [address] * MRSA PCR (03/27/2019 6:00 EDT) Result Methicillin susceptible Staphylococcus aureus (MSSA) DNA detected by PCR. 03/28/2019 11:40 EDT [facility] Specimen of unknown material (specimen) NASAL ROUTE / Unknown 03/27/2019 6:00 EDT 03/27/2019 22:37 EDT us Kori Nguyen MD MICROBIOLOGY - GENERAL OR DERABLES Final Result Performing Organization Address [facility] Co de Phone Number [facility] [address] [place] [address] * PREPARE RED BLOOD CELLS (03/27/2019 5:47 EDT) Product Code [id number] [facility] Donor Number [id number] [facility] Unit ABO O [facility] Unit Rh POS [facility] Unit Status PT^Presumed Transfuse [facility] Product Expiration Date [id number] [facility] Unit Blood Type Code 5100 [facility] Coding System [id number] [facility] Blood specimen (specimen) 03/27/2019 5:47 EDT us Flex Flores MD BLOOD BANK ORDERABLES Final Res ult Performing Organization Address [facility] Co de Phone Number [facility] [address] [place] [address] * (ABNORMAL) GLUCOSE, GLUCOMETER (03/27/2019 4:57 EDT) Glucose, Fingerstick 110(H) 70 - 100 mg/dl 03/27/2019 5:03 EDT [facility] Clinical Writer ID [id number] 03/27/2019 5:03 EDT [facility] Comment:Test Performed by Nu ing Services BLOOD SPECIMEN / Unknown 03/27/2019 4:57 EDT 03/27/2019 5:03 EDT us Leticia Galdamez MD CHEMISTRY & BLOOD GAS ORDERAB LES Final Result Performing Organization Address City/[facility]/ZIP Co de Phone Number [facility] [address] [place] [address] * ELECTROLYTES (03/27/2019 4:52 EDT) Sodium 141 136 - 145 mEq/L 03/27/2019 7:55 EDT [facility] Potassium 3.6 3.5 - 5.0 mEq/L 03/27/2019 7:55 EDT [facility] Chloride 109 96 - 110 mEq/L 03/27/2019 7:55 EDT [facility] CO2 24 22 - 32 mEq/L 03/27/2019 7:55 EDT [facility] BLOOD SPECIMEN / Unknown 03/27/2019 4:52 EDT 03/27/2019 5:02 EDT us Ayaan SMITH CHEMISTRY & BLOOD GAS ORDERAB LES Final Result Performing Organization Address City/[facility]/ZIP Co de Phone Number [facility] [address] [place] [address] * MAGNESIUM (03/27/2019 4:52 EDT) Magnesium 2.1 1.7 - 2.8 mg/dl 03/27/2019 5:36 EDT [facility] Blood specimen (specimen) BLOOD SPECIMEN / Unknown 03/27/2019 4:52 EDT 03/27/2019 5:02 EDT us Kori Nguyen MD CHEMISTRY & BLOOD GAS ORD ERABLES Final Result Performing Organization Address City/[facility]/ZIP Co de Phone Number [facility] [address] [place] [address] * (ABNORMAL) COMPLETE BLOOD COUNT (03/27/2019 4:52 EDT) WBC 4.55 4.0 - 10.4 K/cmm 03/27/2019 5:37 [facility] RBC 2.08(L) 4.36 - 5.78 M/cmm 03/27/2019 5:37 [facility] Hemoglobin 6.6(LL) 13.8 - 17.3 gm/dl 03/27/2019 5:37 [facility] HCT 19.8(LL) 39.5 - 50.2 % 03/27/2019 5:37 [facility] MCV 95 81 - 95 fl 03/27/2019 5:37 [facility] MCH 31.7 27.6 - 33.0 pg 03/27/2019 5:37 [facility] MCHC 33.3 32.8 - 36.4 gm/dl 03/27/2019 5:37 [facility] RDW-CV 15.0(H) <14.2 % 03/27/2019 5:37 [facility] RDW-SD 50.0(H) <46.0 fl 03/27/2019 5:37 [facility] PLT 150 141 - 377 K/cmm 03/27/2019 5:37 [facility] MPV 12.9(H) 9.5 - 12.7 fl 03/27/2019 5:37 [facility] Blood specimen (specimen) BLOOD SPECIMEN / Unknown 03/27/2019 4:52 EDT 03/27/2019 5:02 EDT us Domenica High MD HEMATOLOGY & PF4 ORDERABLES Fin al Result [facility] [address] [place] [id number] * (ABNORMAL) CALCIUM (03/27/2019 4:52 EDT) Calcium 7.4(L) 8.5 - 10.5 mg/dl 03/27/2019 5:36 EDT [facility] Calculated Calcium 9.1 8.5 - 10.5 mg/dl 03/27/2019 5:36 EDT [facility] Blood specimen (specimen) BLOOD SPECIMEN / Unknown 03/27/2019 4:52 EDT 03/27/2019 5:02 EDT us Kori Nguyen MD CHEMISTRY & BLOOD GAS ORD ERABLES Final Result Performing Organization Address City/[facility] Co de Phone Number [facility] [address] [place] [address] * PHOSPHORUS (03/27/2019 4:52 EDT) Phosphorus 4.2 2.5 - 4.5 mg/dl 03/27/2019 5:36 EDT [facility] Blood specimen (specimen) BLOOD SPECIMEN / Unknown 03/27/2019 4:52 EDT 03/27/2019 5:02 EDT us Kori Nguyen MD CHEMISTRY & BLOOD GAS ORD ERABLES Final Result Performing Organization Address [facility] de Phone Number [facility] [address] [place] [address] * (ABNORMAL) CREATININE (03/27/2019 4:52 EDT) Creatinine 1.39(H) 0.66 - 1.25 mg/dl 03/27/2019 5:36 EDT [facility] GFR, Calculated 53(L) >60 ml/min/1.7 3m2 03/27/2019 5:36 EDT [facility] Comment: eGFR calculated using CKD-EPI equation for non Americans. Multiply eGFR by 1.16 for Americans. Blood specimen (specimen) BLOOD SPECIMEN / Unknown 03/27/2019 4:52 EDT 03/27/2019 5:02 EDT us Kori Nguyen MD CHEMISTRY & BLOOD GAS ORD ERABLES Final Result Performing Organization Address City/[facility]/ZIP Co de Phone Number [facility] [address] [place] [address] * TSH (03/27/2019 4:52 EDT) TSH 3.50 0.47 - 4.68 uIU/ml 03/27/2019 6:06 EDT [facility] Comment: The results of this assay can be falsely lowered due to the consumption of Biotin. Blood specimen (specimen) BLOOD SPECIMEN / Unknown 03/27/2019 4:52 EDT 03/27/2019 5:02 EDT Leticia Galdamez MD CHEMISTRY & BLOOD GAS ORDERAB LES Final Result Performing Organization Address [facility]/ZIP Co de Phone Number [facility] [address] [place] [address] * PROCALCITONIN, INFECTIOUS DISEASE USE ONLY (03/27/2019 4:52 EDT) [facility] Procalcitonin, Infectious Disease Use Only 0.94 ng/ml 03/27/2019 9:55 EDT [facility] Comment: Procalcitonin levels <0.5 ng/ml represent a low risk of severe sepsis and/or septic shock. Blood specimen (specimen) BLOOD SPECIMEN / Unknown 03/27/2019 4:52 EDT 03/27/2019 5:02 EDT Ayaan SMITH CHEMISTRY & BLOOD GAS ORDERAB LES Final Result [facility] [address] [place] [address] * (ABNORMAL) GLUCOSE, GLUCOMETER (03/27/2019 0:55 EDT) Pathologist [facility] Glucose, Fingerstick 129(H) 70 - 100 mg/dl 03/27/2019 0:57 EDT [facility] Clinical Writer ID [id number] 03/27/2019 0:57 EDT [facility] Comment:Test Performed by [employer] BLOOD SPECIMEN / Unknown 03/27/2019 0:55 EDT 03/27/2019 0:57 EDT us Leticia Galdamez MD CHEMISTRY & BLOOD GAS ORDERAB LES Final Result [facility] [address] [place] [address] * ELECTROLYTES (03/26/2019 22:22 EDT) Sodium 138 136 - 145 mEq/L 03/26/2019 23:34 EDT [facility] Potassium 3.7 3.5 - 5.0 mEq/L 03/26/2019 23:34 EDT [facility] Chloride 108 96 - 110 mEq/L 03/26/2019 23:34 EDT [facility] CO2 26 22 - 32 mEq/L 03/26/2019 23:34 EDT [facility] Blood specimen (specimen) BLOOD SPECIMEN / Unknown 03/26/2019 22:22 EDT 03/26/2019 22:29 EDT us Kori Nguyen MD CHEMISTRY & BLOOD GAS ORD ERABLES Final Result Performing Organization Address [facility]/ZIP Co de Phone Number [facility] [address] [place] [address] * (ABNORMAL) GLUCOSE, GLUCOMETER (03/26/2019 17:54 EDT) Glucose, Fingerstick 141(H) 70 - 100 mg/dl 03/26/2019 18:08 EDT [facility] Clinical Writer ID [id number] 03/26/2019 18:08 EDT [facility] Comment:Test Performed by [employer] BLOOD SPECIMEN / Unknown 03/26/2019 17:54 EDT 03/26/2019 18:08 EDT us Leticia Galdamez MD CHEMISTRY & BLOOD GAS ORDERAB LES Final Result [facility] [address] [place] [address] * ELECTROLYTES (03/26/2019 16:09 EDT) Sodium 139 136 - 145 mEq/L 03/26/2019 16:46 T [facility] Potassium 3.7 3.5 - 5.0 mEq/L 03/26/2019 16:46 T [facility] Chloride 104 96 - 110 mEq/L 03/26/2019 16:46 T [facility] CO2 28 22 - 32 mEq/L 03/26/2019 16:46 T [facility] Blood specimen (specimen) BLOOD SPECIMEN / Unknown 03/26/2019 16:09 EDT 03/26/2019 16:21 EDT us Kori Nguyen MD CHEMISTRY & BLOOD GAS ORD ERABLES Final Result [facility] [address] [place] [address] * (ABNORMAL) BLOOD GAS, G3 ISTAT (03/26/2019 15:06 EDT) pH, i-STAT 7.32(L) 7.35 - 7.45 03/26/2019 15:10 [facility] pCO2, i-STAT 52(H) 35 - 45 mmHg 03/26/2019 15:10 [facility] pO2, i-STAT 36(L) 80 - 105 mmHg 03/26/2019 15:10 [facility] TCO2, i-STAT 28(H) 23 - 27 mEq/L 03/26/2019 15:10 [facility] O2 Saturation 63(L) 95 - 98 % 03/26/2019 15:10 [facility] Base Excess, i-STAT 0 03/26/2019 15:10 [facility] Sample Type VENOUS 03/26/2019 15:10 [facility] certification officer ID [id number] 03/26/2019 15:10 [facility] Comment: Test Performed by Respiratory For non-arterial reference ranges, please see ISTAT procedure. BLOOD SPECIMEN / Unknown 03/26/2019 15:06 EDT 03/26/2019 15:10 EDT us Leticia Galdamez MD CHEMISTRY & BLOOD GAS ORDERAB LES Final Result Performing Organization Address City/[facility]/ZIP Co de Phone Number [facility] [address] [place] [address] * LACTIC ACID (03/26/2019 15:04 EDT) Lactic Acid 0.8 <2.1 mmol/L 03/26/2019 15:42 EDT [facility] Blood specimen (specimen) BLOOD SPECIMEN / Unknown 03/26/2019 15:04 EDT 03/26/2019 15:27 EDT us Keanu Flores MD CHEMISTRY & BLOOD GAS ORDERABLES Final Result Performing Organization Address [facility] Co de Phone Number [facility] [address] [place] [address] * (ABNORMAL) GLUCOSE, GLUCOMETER (03/26/2019 12:00 EDT) Glucose, Fingerstick 163(H) 70 - 100 mg/dl 03/26/2019 12:01 EDT [facility] Clinical Writer ID [id number] 03/26/2019 12:01 EDT [facility] Comment:Test Performed by [employer] BLOOD SPECIMEN / Unknown 03/26/2019 12:00 EDT 03/26/2019 12:01 EDT us Leticia Galdamez MD CHEMISTRY & BLOOD GAS ORDERAB LES Final Result Performing Organization Address City/[facility]/ZIP Co de Phone Number [facility] [address] [place] [address] * CT CHEST W CONTRAST (03/26/2019 11:29 EDT) Anatomical Region Laterality Modality Other 03/26/2019 11:2 9 EDT 03/26/2019 12:00 EDT Narrative 03/26/2019 12:[address] CHEST W CONTRAST ??03/26/2019 11:29 AM Clinical History/Comments: Request CT-Chest to re-evaluate resolving ARDS Technique: A single breath-hold helical CT acquisition was performed through the chest on a multidetector-row scanner with a reconstructed slice thickness of 3 mm and retrospectively reconstructed 0.9 mm thick sections with 0.45 mm overlapping intervals. ??The scans were obtained from the lung apices through the bases during the intravenous administration of 70-100 cc of 370 mg% nonionic contrast injected at a rate of 2 cc/second. Scans were reviewed on a dedicated PACS workstation for analysis. Comparison: Outside CT [facility] March 16, 2019. Findings: CT of the chest performed after IV contrast administration. Tubes and lines: There is an endotracheal tube its tip in good position above the tracheal timmy just below the thoracic inlet. A nasogastric tube is seen to enter the stomach, its tip on the cumulative effects analyst view in the S2 body or antrum. There is a right-sided PICC line seen, its tip within the mid superior vena cava. Lower neck: No abnormalities. Chest wall soft tissues: There is mild subcutaneous edema of the chest wall. Mediastinum and ramon: Scattered mildly enlarged mediastinal and bilateral hilar lymph nodes are noted, almost certainly reactive in nature. ??The esophagus appears normal. Heart and mediastinal vasculature: ??There is moderate atherosclerotic calcification of the thoracic aorta and arch vessels.. Large airways: ??There is mucus within the dependent portions of the right main bronchus and right lower lobe bronchus basal bronchus. Lungs: ??There is dense consolidation of the left lower lobe of lung with areas of cavitation. Additional dense consolidation seen within the inferior lingula, lateral segment of the middle lobe, and dependent portions of the right lower lobe of lung most consistent with a multifocal pneumonia. A more diffuse pattern of groundglass opacity with some interlobular septal thickening is noted and likely reflects diffuse alveolar damage as per history. There is severe underlying upper lobe predominant centrilobular emphysema. Pleura: There are small bilateral parapneumonic pleural effusions. Upper abdomen (limited to upper abdomen, not optimized for abdominal imaging): A separate CT of the abdomen or abdomen and pelvis was performed on the same date. ??Please see that report. Bones: ??No significant abnormalities. Impression: 1. ??Findings a progressive multifocal pneumonia within both lungs, particularly within the left lower lobe, with a more diffuse pattern likely reflecting noncardiogenic edema and diffuse alveolar damage. This is superimposed upon severe emphysema. 2. ??Tubes and lines in position as described. 3. ??Small bilateral parapneumonic effusions. 4. ?? Moderate aortic and great vessel atherosclerotic calcification. 5. ??Mild subcutaneous edema. 6. ??Mucous right lower lobe airways in particular. Procedure Note Jatinder Tomlin MD, - 03/26/2019 CT CHEST W CONTRAST 03/26/2019 11:29 AM Clinical History/Comments: Request CT-Chest to re-evaluate resolving ARDS Technique: A single breath-hold helical CT acquisition was performed through the chest on a multidetector-row scanner with a reconstructed slice thickness of 3 mm and retrospectively reconstructed 0.9 mm thick sections with 0.45 mm overlapping intervals. The scans were obtained from the lung apices through the bases during the intravenous administration of 70-100 cc of 370 mg% nonionic contrast injected at a rate of 2 cc/second. Scans were reviewed on a dedicated PACS workstation for analysis. Comparison: Outside CT [facility] March 16, 2019. Findings: CT of the chest performed after IV contrast administration. Tubes and lines: There is an endotracheal tube its tip in good position above the tracheal timmy just below the thoracic inlet. A nasogastric tube is seen to enter the stomach, its tip on the cumulative effects analyst view in the S2 body or antrum. There is a right-sided PICC line seen, its tip within the mid superior vena cava. Lower neck: No abnormalities. Chest wall soft tissues: There is mild subcutaneous edema of the chest wall. Mediastinum and ramon: Scattered mildly enlarged mediastinal and bilateral hilar lymph nodes are noted, almost certainly reactive in nature. The esophagus appears normal. Heart and mediastinal vasculature: There is moderate atherosclerotic calcification of the thoracic aorta and arch vessels.. Large airways: There is mucus within the dependent portions of the right main bronchus and right lower lobe bronchus basal bronchus. Lungs: There is dense consolidation of the left lower lobe of lung with areas of cavitation. Additional dense consolidation seen within the inferior lingula, lateral segment of the middle lobe, and dependent portions of the right lower lobe of lung most consistent with a multifocal pneumonia. A more diffuse pattern of groundglass opacity with some interlobular septal thickening is noted and likely reflects diffuse alveolar damage as per history. There is severe underlying upper lobe predominant centrilobular emphysema. Pleura: There are small bilateral parapneumonic pleural effusions. Upper abdomen (limited to upper abdomen, not optimized for abdominal imaging): A separate CT of the abdomen or abdomen and pelvis was performed on the same date. Please see that report. Bones: No significant abnormalities. Impression: 1. Findings a progressive multifocal pneumonia within both lungs, particularly within the left lower lobe, with a more diffuse pattern likely reflecting noncardiogenic edema and diffuse alveolar damage. This is superimposed upon severe emphysema. 2. Tubes and lines in position as described. 3. Small bilateral parapneumonic effusions. 4. Moderate aortic and great vessel atherosclerotic calcification. 5. Mild subcutaneous edema. 6. Mucous right lower lobe airways in particular. Ayaan SMITH [facility] CT ORDERABLES Final Resul t * CT ABDOMEN, PELVIS W/WO CONTRAST (03/26/2019 11:29 EDT) Anatomical Region Laterality Modality Other 03/26/2019 11:2 9 EDT 03/26/2019 13:05 EDT Narrative 03/26/2019 13:[address] ABDOMEN, PELVIS W/WO CONTRAST ??03/26/2019 11:29 AM Signs and Symptoms/Comments: ?? CT abdomen pelvis to assess for mesenteric ischemia. CT-angiogram canceled re-ordered at request of Radiology service. Technique: CT of the abdomen and pelvis was performed prior to and following the administration intravenous ??contrast; coronal and sagittal multiplanar reconstructions generated. Comparison: None available. Findings: Lower chest: Please see dedicated CT of the chest for findings below the diaphragm. Hepatobiliary: The hepatic parenchyma enhances normally and there are no focal hepatic lesions. There is periportal edema. The gallbladder is markedly distended with no radiopaque cholelithiasis or choledocholithiasis. The gallbladder wall does not appear thickened. There is mild intrahepatic biliary ductal dilatation. The common bile duct appears prominent, measuring 0.8 cm. Spleen, pancreas, adrenal glands: Spleen enhances homogeneously and is normal in size. A 1.2 cm nodule is seen in the left adrenal gland on axial venous image #64. The right adrenal gland is normal in size and shape. The pancreas is normal with no peripancreatic fat stranding or pancreatic ductal dilatation. Kidneys, ureters, bladder: The kidneys enhance symmetrically. There are no renal masses or calculi. No hydronephrosis. The ureters are normal in caliber along their visualized course. A Park catheter is in place and the urinary bladder is decompressed, but grossly normal aside from an antidependent gas. Prostate, seminal vesicles: Coarse central calcifications are noted within the prostate. The seminal vesicles are normal for age and symmetric. Bowel: Distal esophagus is normal appearing. An enteric tube is present, with the tip ending in the stomach. A loop of proximal jejunum appears edematous and thickened and there is the suggestion of hypoenhancement of the jejunal wall (for example axial image #19). Jejunal folds in this region appeared to maintain normal enhancement. There is mesenteric edema and fluid surrounding this loop of jejunum. The loops of small bowel are otherwise normal in caliber and enhancement without wall thickening or evidence of obstruction. There is fecal material throughout the colon which is isointense to the wall of the colon, which limits assessment of colonic wall thickness and enhancement. A fecal management device is in place in the rectum. There is no pneumatosis or portal venous gas. Peritoneal cavity: There is a moderate to large amount of low density free fluid throughout the abdomen with no organized fluid collections. There is no free intraperitoneal air. Lymphovascular: No arterial or venous thrombus is identified. There is no gas in the portal venous system. Moderate to severe atherosclerosis is seen in the abdominal aorta and its branches with no aneurysmal dilation. No lymphadenopathy. Abdominal wall: No bowel-containing hernias. Musculoskeletal: Anasarca. Multilevel degenerative changes of the thoracolumbar spine. No suspicious osseous lesions or fractures. Asbestos Microscopist: No additional findings. Impression: Study is limited due to timing of the contrast bolus and motion artifact in the upper abdomen. 1. ??A proximal loop of jejunum appears edematous and thickened, with the suggestion of hypoenhancement of the jejunal wall. Jejunal folds in this loop appear to maintain normal enhancement. Mesenteric edema and fluid is seen surrounding this loop. Clinical and laboratory value correlation is recommended. 2. ??Fecal material throughout the colon is isointense to the wall of the colon, which limits assessment of colonic wall thickness and enhancement. 3. ??No evidence of pneumatosis or portal venous gas. 4. ??Moderate to large volume ascites. 5. ??Marked gallbladder distention without radiopaque cholelithiasis or evidence of gallbladder wall thickening. 6. ??A 1.2 cm left adrenal nodule is indeterminate. In the absence of history of malignancy, this favors an adrenal adenoma. 7. ??Please refer to dedicated CT chest for full detail of intrathoracic findings. I have personally reviewed the images and the above interpretation and agree with the findings. Procedure Note Mary Arango MD, - 03/26/2019 CT ABDOMEN, PELVIS W/WO CONTRAST 03/26/2019 11:29 AM Signs and Symptoms/Comments: CT abdomen pelvis to assess for mesenteric ischemia. CT-angiogram canceled re-ordered at request of Radiology service. Technique: CT of the abdomen and pelvis was performed prior to and following the administration intravenous contrast; coronal and sagittal multiplanar reconstructions generated. Comparison: None available. Findings: Lower chest: Please see dedicated CT of the chest for findings below the diaphragm. Hepatobiliary: The hepatic parenchyma enhances normally and there are no focal hepatic lesions. There is periportal edema. The gallbladder is markedly distended with no radiopaque cholelithiasis or choledocholithiasis. The gallbladder wall does not appear thickened. There is mild intrahepatic biliary ductal dilatation. The common bile duct appears prominent, measuring 0.8 cm. Spleen, pancreas, adrenal glands: Spleen enhances homogeneously and is normal in size. A 1.2 cm nodule is seen in the left adrenal gland on axial venous image #64. The right adrenal gland is normal in size and shape. The pancreas is normal with no peripancreatic fat stranding or pancreatic ductal dilatation. Kidneys, ureters, bladder: The kidneys enhance symmetrically. There are no renal masses or calculi. No hydronephrosis. The ureters are normal in caliber along their visualized course. A Park catheter is in place and the urinary bladder is decompressed, but grossly normal aside from an antidependent gas. Prostate, seminal vesicles: Coarse central calcifications are noted within the prostate. The seminal vesicles are normal for age and symmetric. Bowel: Distal esophagus is normal appearing. An enteric tube is present, with the tip ending in the stomach. A loop of proximal jejunum appears edematous and thickened and there is the suggestion of hypoenhancement of the jejunal wall (for example axial image #19). Jejunal folds in this region appeared to maintain normal enhancement. There is mesenteric edema and fluid surrounding this loop of jejunum. The loops of small bowel are otherwise normal in caliber and enhancement without wall thickening or evidence of obstruction. There is fecal material throughout the colon which is isointense to the wall of the colon, which limits assessment of colonic wall thickness and enhancement. A fecal management device is in place in the rectum. There is no pneumatosis or portal venous gas. Peritoneal cavity: There is a moderate to large amount of low density free fluid throughout the abdomen with no organized fluid collections. There is no free intraperitoneal air. Lymphovascular: No arterial or venous thrombus is identified. There is no gas in the portal venous system. Moderate to severe atherosclerosis is seen in the abdominal aorta and its branches with no aneurysmal dilation. No lymphadenopathy. Abdominal wall: No bowel-containing hernias. Musculoskeletal: Anasarca. Multilevel degenerative changes of the thoracolumbar spine. No suspicious osseous lesions or fractures. Asbestos Microscopist: No additional findings. Impression: Study is limited due to timing of the contrast bolus and motion artifact in the upper abdomen. 1. A proximal loop of jejunum appears edematous and thickened, with the suggestion of hypoenhancement of the jejunal wall. Jejunal folds in this loop appear to maintain normal enhancement. Mesenteric edema and fluid is seen surrounding this loop. Clinical and laboratory value correlation is recommended. 2. Fecal material throughout the colon is isointense to the wall of the colon, which limits assessment of colonic wall thickness and enhancement. 3. No evidence of pneumatosis or portal venous gas. 4. Moderate to large volume ascites. 5. Marked gallbladder distention without radiopaque cholelithiasis or evidence of gallbladder wall thickening. 6. A 1.2 cm left adrenal nodule is indeterminate. In the absence of history of malignancy, this favors an adrenal adenoma. 7. Please refer to dedicated CT chest for full detail of intrathoracic findings. I have personally reviewed the images and the above interpretation and agree with the findings. Ayaan SMITH IM CT ORDERABLES Final Resul t * BACTERIAL CULTURE, BLOOD (03/26/2019 10:20 EDT) Result No growth 03/31/2019 8:53 EDT [facility] Blood specimen (specimen) BLOOD SPECIMEN / Unknown 03/26/2019 10:20 EDT 03/26/2019 10:50 EDT Comment:Right~PICC us Leticia Galdamez MD MICROBIOLOGY - GENERAL ORDERA BLES Final Result Performing Organization Address City/[facility]/ZIP Co de Phone Number [facility] [address] [place] [address] * INPATIENT ADD-ON (03/26/2019 10:05 EDT) Tests to be added PROCALCINTONIN 03/26/2019 10:01 EDT [facility] Number for problems [id number] 03/26/2019 10:11 EDT [facility] Accession number [id number] 03/26/2019 10:11 EDT [facility] TOPOGRAPHY UNKNOWN / Unknown 03/26/2019 10:05 EDT 03/26/2019 10:10 EDT us Leticia Galdamez MD HEMATOLOGY & PF4 ORDERABLES F inal Result Performing Organization Address [facility] Co de Phone Number [facility] [address] [place] [address] * (ABNORMAL) ELECTROLYTES (03/26/2019 10:00 EDT) Sodium 139 136 - 145 mEq/L 03/26/2019 11:02 EDT [facility] Potassium 3.4(L) 3.5 - 5.0 mEq/L 03/26/2019 11:02 EDT [facility] Chloride 105 96 - 110 mEq/L 03/26/2019 11:02 EDT [facility] CO2 28 22 - 32 mEq/L 03/26/2019 11:02 EDT [facility] Blood specimen (specimen) BLOOD SPECIMEN / Unknown 03/26/2019 10:00 EDT 03/26/2019 10:15 EDT us Kori Nguyen MD CHEMISTRY & BLOOD GAS ORD ERABLES Final Result [facility] [address] [place] [address] * ECHOCARDIOGRAM (03/26/2019 9:55 EDT) Anatomical Region Laterality Modality Other 03/26/2019 9:55 EDT Narrative 03/26/2019 10:12 EDT *Interpreting Group:* *[facility]* [address] [place] [address] Date of study: 03/26/2019 Transthoracic Echocardiography M-mode, complete 2D, complete spectral Doppler, and color Doppler *STUDY CONCLUSIONS* Summary: 1. Left ventricle: The cavity size was normal. Wall thickness was ?? normal. Systolic function was hyperdynamic. The estimated ejection ?? fraction was 65-70%. Wall motion was normal; there were no regional ?? wall motion abnormalities. 2. Right ventricle: The cavity size was normal. Wall thickness was ?? normal. Systolic function was normal. 3. Pulmonary arteries: Pulmonary systolic pressure was increased, >= ?? 50mm Hg. *PATIENT PRESENTATION* Height: ? 182.9cm (72in ) S/D Pressure: 105 / 49 Weight: ? 70.3kg (154.7lb ) BSA: ?1.88m^2 Test start time: ??09:20 AM. Test stop time: ??09:53 AM. REFERRING ?Unknown Doctor ADMITTING ?Lona Spencer, Brian ATTENDING ?Leticia Galdamez ORDERING ? Leticia Galdamez PERFORMING ?? [facility], LAB HEAD ??Naila Simon RDCS *PROCEDURE DATA* Procedure information: ??The patient was identified by two identifiers. This study was interpreted by [facility]. Pertinent images and digital data are archived for permanent storage and are available for subsequent review. ??Study status: Routine. Transthoracic echocardiography. ??M-mode, complete 2D, complete spectral Doppler, and color Doppler. A Transthoracic Echocardiogram was performed. The parasternal window was low, thus no M-mode measurements were recorded. Scanning was performed from the parasternal, apical, subcostal, and suprasternal notch acoustic windows. Images were obtained using an ScaleBaseq 10 cardiac ultrasound machine. Image quality was adequate. The study was technically limited due to poor acoustic window availability, patient inability to follow directions, restricted patient mobility, and patient on ventilator. ??Study completion: ??The patient tolerated the procedure well. *INDICATIONS AND HISTORY* Indications: ?? (Pneumonia, unspecified organism). *CARDIAC ANATOMY* Left ventricle: ??The cavity size was normal. Wall thickness was normal. Systolic function was hyperdynamic. The estimated ejection fraction was 65-70%. Wall motion was normal; there were no regional wall motion abnormalities. The study is not technically sufficient to allow evaluation of LV diastolic function. Aortic valve: ??Poorly visualized. ??Probably trileaflet. ??Doppler: Transvalvular velocity was within the normal range. There was no stenosis. There was no significant regurgitation. ?VTI ratio of LVOT to aortic valve: 0.81. Valve area (VTI): 2.3cm^2. Indexed valve area (VTI): 1.2cm^2/m^2. Peak velocity ratio of LVOT to aortic valve: 0.8. Valve area (Vmax): 2.3cm^2. Indexed valve area (Vmax): 1.2cm^2/m^2. Mean velocity ratio of LVOT to aortic valve: 0.77. Valve area (Vmean): 2.2cm^2. Indexed valve area (Vmean): 1.2cm^2/m^2. ?Mean gradient (S): 8.8mm Hg. Peak gradient (S): 18mm Hg. Aorta: ??Aortic root: The aortic root was normal in size. Mitral valve: ?? Structurally normal valve. ?? Mobility was not restricted. ??Doppler: ??Transvalvular velocity was within the normal range. There was no evidence for stenosis. There was no significant regurgitation. ?Peak gradient (D): 3.3mm Hg. Left atrium: ??The atrium was normal in size. Right ventricle: ??The cavity size was normal. Wall thickness was normal. Systolic function was normal. Pulmonic valve: ?Doppler: ??Transvalvular velocity was within the normal range. There was no evidence for stenosis. There was no significant regurgitation. Tricuspid valve: ?? Structurally normal valve. ?Doppler: ??Transvalvular velocity was within the normal range. There was no evidence for stenosis. There was trivial regurgitation. Pulmonary artery: ?? Pulmonary systolic pressure was increased, >= 50mm Hg. Right atrium: ??The atrium was normal in size. Pericardium: ??There was no pericardial effusion. Systemic veins: Inferior vena cava: The vessel was dilated. Measurements Left ventricle ? Value ?Reference LV ID, ED, PLAX ?3.8 ?? cm ? 3.5 - 6.0 LV ID, ES, PLAX ?2.6 ?? cm ? 2.1 - 4.0 LV PW thickness, ED, PLAX ?0.9 ?? cm ? --------- LV end-diastolic volume, 1-p A4C ? 63 ?ml ? --------- LV ejection fraction, 1-p A4C ?68 ?% ?--------- LV IVRT, DP ?66 ?ms ? 60 - 100 LV e', lateral ? 0.101 m/sec ?--------- LV E/e', lateral ? 9 ?--------- LV e', medial ?0.123 m/sec ?--------- LV E/e', medial ?7 ?--------- LV e', average ? 0.112 m/sec ?--------- LV E/e', average ? 8 ?--------- Ventricular septum ? Value ?Reference IVS thickness, ED, PLAX ?1.0 ?? cm ? --------- LVOT ? Value ?Reference LVOT ID, S ? 1.9 ?? cm ? --------- LVOT area ?2.8 ?? cm^2 ? --------- LVOT peak velocity, S ?1.69 ??m/sec ?--------- LVOT mean velocity, S ?1.09 ??m/sec ?--------- LVOT VTI, S ?25.6 ??cm ? --------- LVOT peak gradient, S ?11 ?mm Hg ?--------- LVOT mean gradient, S ?6 ? mm Hg ?--------- Stroke volume (SV), LVOT DP ?71 ?ml ? --------- Stroke index (SV/bsa), LVOT DP ? 38 ?ml/m^2 ?? --------- Aortic valve ? Value ?Reference Aortic valve peak velocity, S ?2.1 ?? m/sec ?--------- Aortic valve mean velocity, S ?1.4 ?? m/sec ?--------- Aortic valve VTI, S ?31.6 ??cm ? --------- Aortic mean gradient, S ?8.8 ?? mm Hg ?--------- Aortic peak gradient, S ?18 ?mm Hg ?--------- VTI ratio, LVOT/AV ? 0.81 ? --------- Aortic valve area, VTI ? 2.3 ?? cm^2 ? --------- Velocity ratio, peak, LVOT/AV ?0.8 ?--------- Aortic valve area, peak velocity ? 2.3 ?? cm^2 ? --------- Velocity ratio, mean, LVOT/AV ?0.77 ? --------- Aortic valve area, mean velocity ? 2.2 ?? cm^2 ? --------- Aortic valve area/bsa, mean velocity ? 1.2 ?? cm^2/m^2 --------- Aorta ?Value ?Reference Aortic root ID ? 3.6 ?? cm ? --------- Ascending aorta ID, A-P ?2.9 ?? cm ? --------- Ascending aorta ID, A-P, S ? 2.9 ?? cm ? --------- Left atrium ?Value ?Reference LA ID, A-P, ES ? 2.1 ?? cm ? --------- LA ID/bsa, A-P ? 1.1 ?? cm/m^2 ?? <=2.2 LA volume, ES, 2-p ? 26 ?ml ? --------- LA volume/bsa, ES, 2-p ? 14 ?ml/m^2 ?? --------- LA/aortic root ratio ? 0.58 ? --------- Mitral valve ? Value ?Reference Mitral E-wave peak velocity ?0.91 ??m/sec ?--------- Mitral A-wave peak velocity ?0.58 ??m/sec ?--------- Mitral deceleration time ? 197 ?? ms ? 150 - 230 Mitral peak gradient, D ?3.3 ?? mm Hg ?--------- Mitral E/A ratio, peak ? 1.6 ?--------- Legend: (L) ??and ??(H) ??nilesh values outside specified reference range. I have personally reviewed the images and have reviewed and edited the reported findings. Electronically signed by Jaswinder Abel MD 03/26/2019 10:12 Procedure Note Jaswinder Abel MD, MD - 03/26/2019 *Interpreting Group:* *[facility]* [address] [place] [address] Date of study: 03/26/2019 Transthoracic Echocardiography M-mode, complete 2D, complete spectral Doppler, and color Doppler *STUDY CONCLUSIONS* Summary: 1. Left ventricle: The cavity size was normal. Wall thickness was normal. Systolic function was hyperdynamic. The estimated ejection fraction was 65-70%. Wall motion was normal; there were no regional wall motion abnormalities. 2. Right ventricle: The cavity size was normal. Wall thickness was normal. Systolic function was normal. 3. Pulmonary arteries: Pulmonary systolic pressure was increased, >= 50mm Hg. *PATIENT PRESENTATION* Height: 182.9cm (72in ) S/D Pressure: 105 / 49 Weight: 70.3kg (154.7lb ) BSA: 1.88m^2 Test start time: 09:20 AM. Test stop time: 09:53 AM. REFERRING Unknown Doctor ADMITTING Brian Romano Do ATTENDING Leticia Galdamez ORDERING Leticia Galdamez PERFORMING [facility], LAB HEAD Naila Simon RDCS *PROCEDURE DATA* Procedure information: The patient was identified by two identifiers. This study was interpreted by [facility]. Pertinent images and digital data are archived for permanent storage and are available for subsequent review. Study status: Routine. Transthoracic echocardiography. M-mode, complete 2D, complete spectral Doppler, and color Doppler. A Transthoracic Echocardiogram was performed. The parasternal window was low, thus no M-mode measurements were recorded. Scanning was performed from the parasternal, apical, subcostal, and suprasternal notch acoustic windows. Images were obtained using an Epiq 10 cardiac ultrasound machine. Image quality was adequate. The study was technically limited due to poor acoustic window availability, patient inability to follow directions, restricted patient mobility, and patient on ventilator. Study completion: The patient tolerated the procedure well. *INDICATIONS AND HISTORY* Indications: (Pneumonia, unspecified organism). *CARDIAC ANATOMY* Left ventricle: The cavity size was normal. Wall thickness was normal. Systolic function was hyperdynamic. The estimated ejection fraction was 65-70%. Wall motion was normal; there were no regional wall motion abnormalities. The study is not technically sufficient to allow evaluation of LV diastolic function. Aortic valve: Poorly visualized. Probably trileaflet. Doppler: Transvalvular velocity was within the normal range. There was no stenosis. There was no significant regurgitation. VTI ratio of LVOT to aortic valve: 0.81. Valve area (VTI): 2.3cm^2. Indexed valve area (VTI): 1.2cm^2/m^2. Peak velocity ratio of LVOT to aortic valve: 0.8. Valve area (Vmax): 2.3cm^2. Indexed valve area (Vmax): 1.2cm^2/m^2. Mean velocity ratio of LVOT to aortic valve: 0.77. Valve area (Vmean): 2.2cm^2. Indexed valve area (Vmean): 1.2cm^2/m^2. Mean gradient (S): 8.8mm Hg. Peak gradient (S): 18mm Hg. Aorta: Aortic root: The aortic root was normal in size. Mitral valve: Structurally normal valve. Mobility was not restricted. Doppler: Transvalvular velocity was within the normal range. There was no evidence for stenosis. There was no significant regurgitation. Peak gradient (D): 3.3mm Hg. Left atrium: The atrium was normal in size. Right ventricle: The cavity size was normal. Wall thickness was normal. Systolic function was normal. Pulmonic valve: Doppler: Transvalvular velocity was within the normal range. There was no evidence for stenosis. There was no significant regurgitation. Tricuspid valve: Structurally normal valve. Doppler: Transvalvular velocity was within the normal range. There was no evidence for stenosis. There was trivial regurgitation. Pulmonary artery: Pulmonary systolic pressure was increased, >= 50mm Hg. Right atrium: The atrium was normal in size. Pericardium: There was no pericardial effusion. Systemic veins: Inferior vena cava: The vessel was dilated. Measurements Left ventricle Value Reference LV ID, ED, PLAX 3.8 cm 3.5 - 6.0 LV ID, ES, PLAX 2.6 cm 2.1 - 4.0 LV PW thickness, ED, PLAX 0.9 cm --------- LV end-diastolic volume, 1-p A4C 63 ml --------- LV ejection fraction, 1-p A4C 68 % --------- LV IVRT, DP 66 ms 60 - 100 LV e', lateral 0.101 m/sec --------- LV E/e', lateral 9 --------- LV e', medial 0.123 m/sec --------- LV E/e', medial 7 --------- LV e', average 0.112 m/sec --------- LV E/e', average 8 --------- Ventricular septum Value Reference IVS thickness, ED, PLAX 1.0 cm --------- LVOT Value Reference LVOT ID, S 1.9 cm --------- LVOT area 2.8 cm^2 --------- LVOT peak velocity, S 1.69 m/sec --------- LVOT mean velocity, S 1.09 m/sec --------- LVOT VTI, S 25.6 cm --------- LVOT peak gradient, S 11 mm Hg --------- LVOT mean gradient, S 6 mm Hg --------- Stroke volume (SV), LVOT DP 71 ml --------- Stroke index (SV/bsa), LVOT DP 38 ml/m^2 --------- Aortic valve Value Reference Aortic valve peak velocity, S 2.1 m/sec --------- Aortic valve mean velocity, S 1.4 m/sec --------- Aortic valve VTI, S 31.6 cm --------- Aortic mean gradient, S 8.8 mm Hg --------- Aortic peak gradient, S 18 mm Hg --------- VTI ratio, LVOT/AV 0.81 --------- Aortic valve area, VTI 2.3 cm^2 --------- Velocity ratio, peak, LVOT/AV 0.8 --------- Aortic valve area, peak velocity 2.3 cm^2 --------- Velocity ratio, mean, LVOT/AV 0.77 --------- Aortic valve area, mean velocity 2.2 cm^2 --------- Aortic valve area/bsa, mean velocity 1.2 cm^2/m^2 --------- Aorta Value Reference Aortic root ID 3.6 cm --------- Ascending aorta ID, A-P 2.9 cm --------- Ascending aorta ID, A-P, S 2.9 cm --------- Left atrium Value Reference LA ID, A-P, ES 2.1 cm --------- LA ID/bsa, A-P 1.1 cm/m^2 <=2.2 LA volume, ES, 2-p 26 ml --------- LA volume/bsa, ES, 2-p 14 ml/m^2 --------- LA/aortic root ratio 0.58 --------- Mitral valve Value Reference Mitral E-wave peak velocity 0.91 m/sec --------- Mitral A-wave peak velocity 0.58 m/sec --------- Mitral deceleration time 197 ms 150 - 230 Mitral peak gradient, D 3.3 mm Hg --------- Mitral E/A ratio, peak 1.6 --------- Legend: (L) and (H) nilesh values outside specified reference range. I have personally reviewed the images and have reviewed and edited the reported findings. Electronically signed by Jaswinder Abel MD 03/26/2019 10:12 us Leticia Galdamez MD CARDIAC ECHO ORDERABLES Final Result * PORTABLE CHEST 1 VIEW (03/26/2019 6:30 EDT) Anatomical Region Laterality Modality Other 03/26/2019 6:30 EDT 03/26/2019 8:31 EDT Narrative 03/26/2019 8:31 EDT PORTABLE CHEST 1 VIEW ??03/26/2019 6:30 AM Clinical History/Comments: Asphyxia and hypoxemia COMPARISON: None. FINDINGS: Single portable AP view of the chest. The tip of the right PICC overlies the middle 3rd of the superior vena cava. Endotracheal tube terminates at the level of the clavicular heads, about 9 cm from the timmy. Enteric tube terminates below the diaphragm, beyond the [id number]. Multifocal pulmonary opacities appear slightly improved, possibly due to technical factors, consistent with ongoing multifocal pneumonia. Small cystic lucencies are compatible with known emphysema. There is a stable small left pleural effusion. No pneumothorax is seen. Bones are unremarkable. Impression: 1. ??Endotracheal tube appears to been retracted, now terminating about 9 cm from the timmy. This could be advanced about 2 to 3 cm for better positioning. 2. ??Apparent slight improvement in multifocal pulmonary opacities, possibly due to technical factors, consistent with ongoing multifocal pneumonia. 3. ??Unchanged small left pleural effusion. Procedure Note Kitty Mcgowan MD - 03/26/2019 PORTABLE CHEST 1 VIEW 03/26/2019 6:30 AM Clinical History/Comments: Asphyxia and hypoxemia COMPARISON: None. FINDINGS: Single portable AP view of the chest. The tip of the right PICC overlies the middle 3rd of the superior vena cava. Endotracheal tube terminates at the level of the clavicular heads, about 9 cm from the timmy. Enteric tube terminates below the diaphragm, beyond the [id number]. Multifocal pulmonary opacities appear slightly improved, possibly due to technical factors, consistent with ongoing multifocal pneumonia. Small cystic lucencies are compatible with known emphysema. There is a stable small left pleural effusion. No pneumothorax is seen. Bones are unremarkable. Impression: 1. Endotracheal tube appears to been retracted, now terminating about 9 cm from the timmy. This could be advanced about 2 to 3 cm for better positioning. 2. Apparent slight improvement in multifocal pulmonary opacities, possibly due to technical factors, consistent with ongoing multifocal pneumonia. 3. Unchanged small left pleural effusion. Leticia Galdamez MD IMG DIAGNOSTIC IMAGING ORDERA BLES Final Result * (ABNORMAL) GLUCOSE, GLUCOMETER (03/26/2019 5:09 EDT) Glucose, Fingerstick 141(H) 70 - 100 mg/dl 03/26/2019 5:10 EDT [facility] Clinical Writer ID [id number] 03/26/2019 5:10 EDT [facility] Comment:Test Performed by [facility] BLOOD SPECIMEN / Unknown 03/26/2019 5:09 EDT 03/26/2019 5:10 EDT us Leticia Galdamez MD CHEMISTRY & BLOOD GAS ORDERAB LES Final Result Performing Organization Address [facility] de Phone Number [facility] [address] [place] [address] * PROCALCITONIN, INFECTIOUS DISEASE USE ONLY (03/26/2019 3:01 EDT) Procalcitonin, Infectious Disease Use Only 0.99 ng/ml 03/26/2019 12:13 EDT [facility] Comment: Procalcitonin levels <0.5 ng/ml represent a low risk of severe sepsis and/or septic shock. Add on order BLOOD SPECIMEN / Unknown 03/26/2019 3:01 EDT 03/26/2019 3:07 EDT us Kori Nguyen MD CHEMISTRY & BLOOD GAS ORD ERABLES Final Result Performing Organization Address [facility] Co de Phone Number [facility] [address] [place] [address] * MAGNESIUM (03/26/2019 3:01 EDT) Pathologist [facility] Magnesium 1.9 1.7 - 2.8 mg/dl 03/26/2019 3:41 EDT [facility] Blood specimen (specimen) BLOOD SPECIMEN / Unknown 03/26/2019 3:01 EDT 03/26/2019 3:07 EDT us Kori Nguyen MD CHEMISTRY & BLOOD GAS ORD ERABLES Final Result Performing Organization Address [facility] Co de Phone Number [facility] [address] [place] [phone] * (ABNORMAL) COMPLETE BLOOD COUNT (03/26/2019 3:01 EDT) WBC 8.92 4.0 - 10.4 K/cmm 03/26/2019 3:24 EDT [facility] RBC 2.32(L) 4.36 - 5.78 M/cmm 03/26/2019 3:24 EDT [facility] Hemoglobin 7.3(L) 13.8 - 17.3 gm/dl 03/26/2019 3:24 EDT [facility] HCT 22.4(L) 39.5 - 50.2 % 03/26/2019 3:24 T [facility] MCV 97(H) 81 - 95 fl 03/26/2019 3:24 T [facility] MCH 31.5 27.6 - 33.0 pg 03/26/2019 3:24 T [facility] MCHC 32.6(L) 32.8 - 36.4 gm/dl 03/26/2019 3:24 [facility] RDW-CV 15.1(H) <14.2 % 03/26/2019 3:24 T [facility] RDW-SD 51.2(H) <46.0 fl 03/26/2019 3:24 [facility] PLT 170 141 - 377 K/cmm 03/26/2019 3:24 [facility] MPV 12.3 9.5 - 12.7 fl 03/26/2019 3:24 T [facility] Blood specimen (specimen) BLOOD SPECIMEN / Unknown 03/26/2019 3:01 EDT 03/26/2019 3:07 EDT us Domenica High MD HEMATOLOGY & PF4 ORDERABLES Fin al Result [facility] [address] [place] [phone] * (ABNORMAL) CALCIUM (03/26/2019 3:01 EDT) Calcium 7.6(L) 8.5 - 10.5 mg/dl 03/26/2019 3:41 EDT [facility] Calculated Calcium 9.2 8.5 - 10.5 mg/dl 03/26/2019 3:41 EDT [facility] Blood specimen (specimen) BLOOD SPECIMEN / Unknown 03/26/2019 3:01 EDT 03/26/2019 3:07 EDT us Kori Nguyen MD CHEMISTRY & BLOOD GAS ORD ERABLES Final Result [facility] [address] [place] [address] * PHOSPHORUS (03/26/2019 3:01 EDT) Phosphorus 4.5 2.5 - 4.5 mg/dl 03/26/2019 3:41 EDT [facility] [facility] Blood specimen (specimen) BLOOD SPECIMEN / Unknown 03/26/2019 3:01 EDT 03/26/2019 3:07 EDT us Kori Nguyen MD CHEMISTRY & BLOOD GAS ORD ERABLES Final Result Performing Organization Address [facility] Co de Phone Number [facility] [address] [place] [address] * (ABNORMAL) CREATININE (03/26/2019 3:01 EDT) Creatinine 1.66(H) 0.66 - 1.25 mg/dl 03/26/2019 3:41 EDT [facility] GFR, Calculated 43(L) >60 ml/min/1.7 3m2 03/26/2019 3:41 EDT [facility] Comment: eGFR calculated using CKD-EPI equation for non Americans. Multiply eGFR by 1.16 for Americans. Blood specimen (specimen) BLOOD SPECIMEN / Unknown 03/26/2019 3:01 EDT 03/26/2019 3:07 EDT us Kori Nguyen MD CHEMISTRY & BLOOD GAS ORD ERABLES Final Result Performing Organization Address City/[facility]/ZIP Co de Phone Number [facility] [address] [place] [address] * ELECTROLYTES (03/26/2019 3:01 EDT) Sodium 139 136 - 145 mEq/L 03/26/2019 3:41 EDT [facility] Potassium 3.5 3.5 - 5.0 mEq/L 03/26/2019 3:41 EDT [facility] Chloride 105 96 - 110 mEq/L 03/26/2019 3:41 EDT [facility] CO2 30 22 - 32 mEq/L 03/26/2019 3:41 EDT [facility] Blood specimen (specimen) BLOOD SPECIMEN / Unknown 03/26/2019 3:01 EDT 03/26/2019 3:07 EDT us Kori Nguyen MD CHEMISTRY & BLOOD GAS ORD ERABLES Final Result Performing Organization Address [facility] Co de Phone Number [facility] [address] [place] [address] * (ABNORMAL) GLUCOSE, GLUCOMETER (03/25/2019 23:01 EDT) Glucose, Fingerstick 135(H) 70 - 100 mg/dl 03/25/2019 23:02 EDT [facility] Clinical Writer ID [id number] 03/25/2019 23:02 EDT [facility] Comment:Test Performed by rsing Services BLOOD SPECIMEN / Unknown 03/25/2019 23:01 EDT 03/25/2019 23:02 EDT us Leticia Galdamez MD CHEMISTRY & BLOOD GAS ORDERAB LES Final Result Performing Organization Address [facility] Co de Phone Number [facility] [address] [place] [id number] * (ABNORMAL) GLUCOSE, GLUCOMETER (03/25/2019 17:10 EDT) Glucose, Fingerstick 130(H) 70 - 100 mg/dl 03/25/2019 17:14 EDT [facility] Clinical Writer ID [id number] 03/25/2019 17:14 EDT [facility] Comment:Test Performed by Nu rsing Services BLOOD SPECIMEN / Unknown 03/25/2019 17:10 EDT 03/25/2019 17:14 EDT us Leticia Galdamez MD CHEMISTRY & BLOOD GAS ORDERAB LES Final Result Performing Organization Address [facility]/ZIP Co de Phone Number [facility] [address] [place] [address] * (ABNORMAL) MAGNESIUM (03/25/2019 17:01 EDT) Pathologist [facility] Magnesium 1.6(L) 1.7 - 2.8 mg/dl 03/25/2019 17:28 EDT [facility] Blood specimen (specimen) BLOOD SPECIMEN / Unknown 03/25/2019 17:01 EDT 03/25/2019 17:06 EDT Kathy Garza DO CHEMISTRY & BLOOD GAS ORDERABL ES Final Result Performing Organization Address [facility] Co de Phone Number [facility] [address] [place] [address] * ELECTROLYTES (03/25/2019 17:01 EDT) [facility] Sodium 141 136 - 145 mEq/L 03/25/2019 17:28 EDT [facility] Potassium 3.8 3.5 - 5.0 mEq/L 03/25/2019 17:28 T [facility] Chloride 108 96 - 110 mEq/L 03/25/2019 17:28 EDT [facility] CO2 29 22 - 32 mEq/L 03/25/2019 17:28 EDT [facility] Blood specimen (specimen) BLOOD SPECIMEN / Unknown 03/25/2019 17:01 EDT 03/25/2019 17:06 EDT us Kathy Garza DO CHEMISTRY & BLOOD GAS ORDERABL ES Final Result Performing Organization Address [facility] Co de Phone Number [facility] [address] [place] [address] * (ABNORMAL) GLUCOSE, GLUCOMETER (03/25/2019 11:26 EDT) Glucose, Fingerstick 169(H) 70 - 100 mg/dl 03/25/2019 21:19 EDT [facility] Clinical Writer ID [id number] 03/25/2019 21:19 EDT [facility] Comment:Test Performed by Nu rsing Services BLOOD SPECIMEN / Unknown 03/25/2019 11:26 EDT 03/25/2019 21:19 EDT us Leticia Galdamez MD CHEMISTRY & BLOOD GAS ORDERAB LES Final Result Performing Organization Address [facility] Co de Phone Number [facility] [address] [place] [address] * (ABNORMAL) ELECTROLYTES (03/25/2019 9:17 EDT) Sodium 145 136 - 145 mEq/L 03/25/2019 9:44 EDT [facility] Potassium 2.4(LL) 3.5 - 5.0 mEq/L 03/25/2019 9:44 EDT [facility] Chloride 125(H) 96 - 110 mEq/L 03/25/2019 9:44 EDT [facility] CO2 17(L) 22 - 32 mEq/L 03/25/2019 9:44 EDT [facility] Blood specimen (specimen) BLOOD SPECIMEN / Unknown 03/25/2019 9:17 EDT 03/25/2019 9:25 EDT us Kori Nguyen MD CHEMISTRY & BLOOD GAS ORD ERABLES Final Result Performing Organization Address [facility]/ZIP Co de Phone Number [facility] [address] [place] [address] * (ABNORMAL) BLOOD GAS, G3 ISTAT (03/25/2019 6:01 EDT) pH, i-STAT 7.29(L) 7.35 - 7.45 03/25/2019 6:08 EDT [facility] pCO2, i-STAT 54(H) 35 - 45 mmHg 03/25/2019 6:08 EDT [facility] pO2, i-STAT 68(L) 80 - 105 mmHg 03/25/2019 6:08 EDT [facility] TCO2, i-STAT 27 23 - 27 mEq/L 03/25/2019 6:08 EDT [facility] O2 Saturation 91(L) 95 - 98 % 03/25/2019 6:08 EDT [facility] Base Deficit, i-STAT 1 03/25/2019 6:08 EDT [facility] Sample Type ARTERIAL 03/25/2019 6:08 EDT [facility] certification officer ID [id number] 03/25/2019 6:08 EDT [facility] Comment: Test Performed by Respiratory For non-arterial reference ranges, please see ISTAT procedure. BLOOD SPECIMEN / Unknown 03/25/2019 6:01 EDT 03/25/2019 6:08 EDT us Leticia Galdamez MD CHEMISTRY & BLOOD GAS ORDERAB LES Final Result [facility] [address] [place] [address] * (ABNORMAL) GLUCOSE, GLUCOMETER (03/25/2019 5:09 EDT) Glucose, Fingerstick 137(H) 70 - 100 mg/dl 03/25/2019 5:09 EDT [facility] Clinical Writer ID [id number] 03/25/2019 5:09 EDT [facility] Comment:Test Performed by Nu rsing Services BLOOD SPECIMEN / Unknown 03/25/2019 5:09 EDT 03/25/2019 5:10 EDT us Leticia Galdamez MD CHEMISTRY & BLOOD GAS ORDERAB LES Final Result [facility] [address] [place] [address] * MAGNESIUM (03/25/2019 3:21 EDT) Magnesium 1.8 1.7 - 2.8 mg/dl 03/25/2019 4:12 EDT [facility] Blood specimen (specimen) BLOOD SPECIMEN / Unknown 03/25/2019 3:21 EDT 03/25/2019 3:26 EDT us Kori Nguyen MD CHEMISTRY & BLOOD GAS ORD ERABLES Final Result [facility] [address] [place] [address] * (ABNORMAL) COMPLETE BLOOD COUNT (03/25/2019 3:21 EDT) WBC 11.07(H) 4.0 - 10.4 K/cmm 03/25/2019 3:34 EDT [facility] RBC 2.30(L) 4.36 - 5.78 M/cmm 03/25/2019 3:34 [facility] Hemoglobin 7.2(L) 13.8 - 17.3 gm/dl 03/25/2019 3:34 [facility] HCT 22.3(L) 39.5 - 50.2 % 03/25/2019 3:34 [facility] MCV 97(H) 81 - 95 fl 03/25/2019 3:34 [facility] MCH 31.3 27.6 - 33.0 pg 03/25/2019 3:34 [facility] MCHC 32.3(L) 32.8 - 36.4 gm/dl 03/25/2019 3:34 [facility] RDW-CV 15.1(H) <14.2 % 03/25/2019 3:34 [facility] RDW-SD 51.9(H) <46.0 fl 03/25/2019 3:34 [facility] PLT 151 141 - 377 K/cmm 03/25/2019 3:34 [facility] MPV 12.5 9.5 - 12.7 fl 03/25/2019 3:34 [facility] Blood specimen (specimen) BLOOD SPECIMEN / Unknown 03/25/2019 3:21 EDT 03/25/2019 3:26 EDT us Domenica High MD HEMATOLOGY & PF4 ORDERABLES Fin al Result [facility] [address] [place] [address] * (ABNORMAL) CALCIUM (03/25/2019 3:21 EDT) Calcium 7.3(L) 8.5 - 10.5 mg/dl 03/25/2019 4:12 EDT [facility] Calculated Calcium 9.1 8.5 - 10.5 mg/dl 03/25/2019 4:12 EDT [facility] Blood specimen (specimen) BLOOD SPECIMEN / Unknown 03/25/2019 3:21 EDT 03/25/2019 3:26 EDT us Kori Nguyen MD CHEMISTRY & BLOOD GAS ORD ERABLES Final Result [facility] [address] [place] [address] * PHOSPHORUS (03/25/2019 3:21 EDT) Phosphorus 3.5 2.5 - 4.5 mg/dl 03/25/2019 4:12 EDT [facility] Blood specimen (specimen) BLOOD SPECIMEN / Unknown 03/25/2019 3:21 EDT 03/25/2019 3:26 EDT us Kori Nguyen MD CHEMISTRY & BLOOD GAS ORD ERABLES Final Result [facility] [address] [place] [address] * (ABNORMAL) CREATININE (03/25/2019 3:21 EDT) Creatinine 1.43(H) 0.66 - 1.25 mg/dl 03/25/2019 4:12 EDT [facility] GFR, Calculated 51(L) >60 ml/min/1.7 3m2 03/25/2019 4:12 EDT [facility] Comment: eGFR calculated using CKD-EPI equation for non Americans. Multiply eGFR by 1.16 for Americans. Blood specimen (specimen) BLOOD SPECIMEN / Unknown 03/25/2019 3:21 EDT 03/25/2019 3:26 EDT us Kori Nguyen MD CHEMISTRY & BLOOD GAS ORD ERABLES Final Result Performing Organization Address [facility]/ZIP Co de Phone Number [facility] [address] [place] [address] * (ABNORMAL) ELECTROLYTES (03/25/2019 3:21 EDT) Sodium 144 136 - 145 mEq/L 03/25/2019 4:12 EDT [facility] Potassium 4.1 3.5 - 5.0 mEq/L 03/25/2019 4:12 EDT [facility] Chloride 113(H) 96 - 110 mEq/L 03/25/2019 4:12 EDT [facility] CO2 28 22 - 32 mEq/L 03/25/2019 4:12 EDT [facility] Blood specimen (specimen) BLOOD SPECIMEN / Unknown 03/25/2019 3:21 EDT 03/25/2019 3:26 EDT us Kori Nguyen MD CHEMISTRY & BLOOD GAS ORD ERABLES Final Result Performing Organization Address [facility] Co de Phone Number [facility] [address] [place] [address] * TRIGLYCERIDE (03/25/2019 3:21 EDT) Triglycerides 110 mg/dl 03/25/2019 4:12 EDT [facility] Comment: Normal:<150 Borderline High:150-199 High:200-499 Very High:>rz=532 Blood specimen (specimen) BLOOD SPECIMEN / Unknown 03/25/2019 3:21 EDT 03/25/2019 3:26 EDT us Leticia Galdamez MD CHEMISTRY & BLOOD GAS ORDERAB LES Final Result Performing Organization Address [facility]/ZIP Co de Phone Number [facility] [address] [place] [address] * (ABNORMAL) GLUCOSE, GLUCOMETER (03/24/2019 23:43 EDT) Glucose, Fingerstick 154(H) 70 - 100 mg/dl 03/24/2019 23:46 T [facility] Clinical Writer ID [id number] 03/24/2019 23:46 EDT [facility] Comment:Test Performed by Nu rsing Services BLOOD SPECIMEN / Unknown 03/24/2019 23:43 EDT 03/24/2019 23:46 EDT us Leticia Galdamez MD CHEMISTRY & BLOOD GAS ORDERAB LES Final Result [facility] [address] [place] [address] * (ABNORMAL) BLOOD GAS, G3 ISTAT (03/24/2019 21:06 EDT) pH, i-STAT 7.25(L) 7.35 - 7.45 03/24/2019 21:09 [facility] pCO2, i-STAT 56(H) 35 - 45 mmHg 03/24/2019 21:09 [facility] pO2, i-STAT 57(L) 80 - 105 mmHg 03/24/2019 21:09 [facility] TCO2, i-STAT 26 23 - 27 mEq/L 03/24/2019 21:09 [facility] O2 Saturation 84(L) 95 - 98 % 03/24/2019 21:09 [facility] Base Deficit, i-STAT 3 03/24/2019 21:09 [facility] Sample Type ARTERIAL 03/24/2019 21:09 [facility] certification officer ID [id number] 03/24/2019 21:09 [facility] Comment: Test Performed by Respiratory For non-arterial reference ranges, please see ISTAT procedure. BLOOD SPECIMEN / Unknown 03/24/2019 21:06 EDT 03/24/2019 21:09 EDT us Leticia Galdamez MD CHEMISTRY & BLOOD GAS ORDERAB LES Final Result Performing Organization Address City/[facility]/ZIP Co de Phone Number [facility] [address] [place] [address] * (ABNORMAL) COMPLETE BLOOD COUNT (03/24/2019 19:19 EDT) WBC 10.82(H) 4.0 - 10.4 K/cmm 03/24/2019 19:58 EDT [facility] RBC 2.42(L) 4.36 - 5.78 M/cmm 03/24/2019 19:58 EDT [facility] Hemoglobin 7.6(L) 13.8 - 17.3 gm/dl 03/24/2019 19:58 T [facility] HCT 23.4(L) 39.5 - 50.2 % 03/24/2019 19:58 T [facility] MCV 97(H) 81 - 95 fl 03/24/2019 19:58 EDT [facility] MCH 31.4 27.6 - 33.0 pg 03/24/2019 19:58 T [facility] MCHC 32.5(L) 32.8 - 36.4 gm/dl 03/24/2019 19:58 T [facility] RDW-CV 15.0(H) <14.2 % 03/24/2019 19:58 T [facility] RDW-SD 51.9(H) <46.0 fl 03/24/2019 19:58 T [facility] PLT 152 141 - 377 K/cmm 03/24/2019 19:58 T [facility] MPV 12.7 9.5 - 12.7 fl 03/24/2019 19:58 [facility] Blood specimen (specimen) BLOOD SPECIMEN / Unknown 03/24/2019 19:19 EDT 03/24/2019 19:38 EDT us Jonatan Martinez MD HEMATOLOGY & PF4 ORDERABLES F inal Result Performing Organization Address City/[facility]/ZIP Co de Phone Number [facility] [address] [place] [address] * ELECTROLYTES (03/24/2019 18:40 EDT) Sodium 139 136 - 145 mEq/L 03/24/2019 19:31 [facility] Comment:Slight hemolysis Potassium 3.7 3.5 - 5.0 mEq/L 03/24/2019 19:32 [facility] Comment: Slight hemolysis Hemolysis may elevate potassium result. Chloride 109 96 - 110 mEq/L 03/24/2019 19:32 [facility] Comment:Slight hemolysis CO2 25 22 - 32 mEq/L 03/24/2019 19:32 [facility] Comment:Slight hemolysis Blood specimen (specimen) BLOOD SPECIMEN / Unknown 03/24/2019 18:40 EDT 03/24/2019 18:45 EDT us Kori Nguyen MD CHEMISTRY & BLOOD GAS ORD ERABLES Final Result [facility] [address] [place] [address] * (ABNORMAL) COMPLETE BLOOD COUNT (03/24/2019 18:40 EDT) WBC 10.45(H) 4.0 - 10.4 K/cmm 03/24/2019 18:55 [facility] RBC 2.18(L) 4.36 - 5.78 M/cmm 03/24/2019 18:55 [facility] Hemoglobin 7.2(L) 13.8 - 17.3 gm/dl 03/24/2019 18:55 [facility] HCT 20.7(LL) 39.5 - 50.2 % 03/24/2019 18:55 [facility] MCV 95 81 - 95 fl 03/24/2019 18:55 [facility] MCH 33.0 27.6 - 33.0 pg 03/24/2019 18:55 [facility] MCHC 34.8 32.8 - 36.4 gm/dl 03/24/2019 18:55 [facility] RDW-CV 14.9(H) <14.2 % 03/24/2019 18:55 EDT [facility] RDW-SD 50.9(H) <46.0 fl 03/24/2019 18:55 EDT [facility] PLT 149 141 - 377 K/cmm 03/24/2019 18:55 EDT [facility] MPV 12.4 9.5 - 12.7 fl 03/24/2019 18:55 EDT [facility] Blood specimen (specimen) BLOOD SPECIMEN / Unknown 03/24/2019 18:40 EDT 03/24/2019 18:45 EDT us Betzy Zee MD HEMATOLOGY & PF4 ORDERABLES Final Result Performing Organization Address City/[facility]/ZIP Co de Phone Number [facility] [address] [place] [address] * (ABNORMAL) GLUCOSE, GLUCOMETER (03/24/2019 18:00 EDT) Glucose, Fingerstick 153(H) 70 - 100 mg/dl 03/24/2019 18:01 EDT [facility] Clinical Writer ID [id number] 03/24/2019 18:01 EDT [facility] Comment:Test Performed by [employer] BLOOD SPECIMEN / Unknown 03/24/2019 18:00 EDT 03/24/2019 18:01 EDT us Leticia Galdamez MD CHEMISTRY & BLOOD GAS ORDERAB LES Final Result [facility] [address] [place] [address] * INSERT PICC LINE (03/24/2019 16:59 EDT) Narrative Jose Kohler, RN - 03/24/2019 16:59 EDT Jose Kohler, RN ? 03/24/2019 16:59 Central Catheter Insertion First Catheter This Session ?supervisor composing room: Patient Location: [facility]/ Preliminary Data: Insertion Date: 03/24/19 Insertion Time: 1535 First Clinical Writer: Jose Kohler RN RN/MA Documenting Procedure: Luis Camp Pre-procedure: Time Out / Final Moment Performed: Yes Hand Hygiene Immediately Prior To Procedure: Yes Site Disinfected-2% Chlorhex/70% Alcohol: Yes Procedure Site Completely Dry: Yes Entire Patient Draped in Sterile Fashion: Yes Intra-procedure: Sterile Gloves Used: Yes Cap, Mask, and Sterile Gown - Operators: Yes Sterile Field Maintained: Yes Cap and Mask Worn - All Personnel: Yes Post-procedure: Sterile Dressing Applied - Sterile Technique: Yes Dressing Dated And Timed: Yes Needle Passes: VA RN Makes 2 Or Fewer Needle Passes: 2 or fewer passes ?Physician Documentation Pre-Procedure: Procedure To Be Performed: New central line placement Indication: New indication Line Priority: Routine Tip Confirmation: X-ray Consent Obtained: No(pt unable to consent) The patient and/or family have been provided education/training to minimize the risk of central line-associated bloodstream infections. Central Line Type: Central Catheter Type: PICC PICC Type: Solo PICC Central Line Details: Line Lumens (#): Triple Central Line Size: 5 Fr Line Coating: Non-antimicrobial coated Vessel Size: 5 mm Vein Depth (cm): 0.5 cm Line Trim Length: (35) Line External Length: Hub Line Securement Device: Statlock device Responsible Service / IR Details: Responsible Service: MIREYA RN Lidocaine 1% - Route/Dose (cc's): 1;Intradermal Central Line Materials and Methods: Number of Attempts: 1 Number of Sites Attempted: 1 Number of Kits Used: 1 Location Device Used: Ultrasound;Sherlock Central Line Operators: Number Of Operators: 1 First Clinical Writer's Name: Jose Kohler RN First Clinical Writer's Title: Vascular ems driver Unless otherwise noted, there were no complications, no blood loss and no cultures obtained. Jose Kohler RN ?? 03/24/2019 ?? 16:59 us Brian Saldana MD IV THERAPY ORDERABLES Final Resu lt * PORTABLE CHEST PA CENTRAL LINE/PICC/ET TUBE,INITIAL INSERTION (03/24/2019 16:56 EDT) Anatomical Region Laterality Modality Other 03/24/2019 16:5 6 EDT 03/24/2019 17:16 EDT Narrative 03/24/2019 17:16 EDT PORTABLE CHEST 1 VIEW INITIAL LINE, ET INSERTION ??03/24/2019 4:56 PM Clinical History/Comments: New PICC placement Comparison: ??Radiographs 03/17 through 03/24/2019. Findings: Single semiupright portable AP view of the chest. Lines/tubes: ??A right upper extremity PICC terminates in the region of the lower SVC. An endotracheal tube terminates in the mid thoracic trachea. A transesophageal tube terminates beyond the [id number]. Soft tissues and bones: No significant abnormalities. Cardiac and mediastinal contours: Within normal limits. Lungs: There is no substantial change in the appearance of the chest including the bilateral airspace opacities and the left retrocardiac opacity. The lower most portion of the thorax including the costophrenic angles are excluded from the imaging [id number]. Pleura: There is no evidence of pneumothorax or pleural fluid, but neither can be excluded on this non-upright radiograph. Impression: 1. ??Right upper extremity PICC terminates in the region of the lower SVC. I have personally reviewed the images and the above interpretation and agree with the findings. [facility] - 03/24/2019 PORTABLE CHEST 1 VIEW INITIAL LINE, ET INSERTION 03/24/2019 4:56 PM Clinical History/Comments: New PICC placement Comparison: Radiographs 03/17 through 03/24/2019. Findings: Single semiupright portable AP view of the chest. Lines/tubes: A right upper extremity PICC terminates in the region of the lower SVC. An endotracheal tube terminates in the mid thoracic trachea. A transesophageal tube terminates beyond the [id number]. Soft tissues and bones: No significant abnormalities. Cardiac and mediastinal contours: Within normal limits. Lungs: There is no substantial change in the appearance of the chest including the bilateral airspace opacities and the left retrocardiac opacity. The lower most portion of the thorax including the costophrenic angles are excluded from the imaging [id number]. Pleura: There is no evidence of pneumothorax or pleural fluid, but neither can be excluded on this non-upright radiograph. Impression: 1. Right upper extremity PICC terminates in the region of the lower SVC. I have personally reviewed the images and the above interpretation and agree with the findings. us Brian Saldana MD IMG DIAGNOSTIC IMAGING ORDERABLE S Final Result * (ABNORMAL) ELECTROLYTES (03/24/2019 14:21 EDT) Sodium 148(H) 136 - 145 mEq/L 03/24/2019 15:00 EDT [facility] Potassium 4.0 3.5 - 5.0 mEq/L 03/24/2019 15:00 EDT [facility] Chloride 115(H) 96 - 110 mEq/L 03/24/2019 15:00 EDT [facility] CO2 30 22 - 32 mEq/L 03/24/2019 15:00 EDT [facility] Blood specimen (specimen) BLOOD SPECIMEN / Unknown 03/24/2019 14:21 EDT 03/24/2019 14:36 EDT us Kori Nguyen MD CHEMISTRY & BLOOD GAS ORD ERABLES Final Result Performing Organization Address City/[facility]/ZIP Co de Phone Number [facility] [address] [place] [address] * (ABNORMAL) GLUCOSE, GLUCOMETER (03/24/2019 11:51 EDT) Glucose, Fingerstick 144(H) 70 - 100 mg/dl 03/24/2019 22:24 EDT [facility] Clinical Writer ID [id number] 03/24/2019 22:24 EDT [facility] Comment:Test Performed by Nu ing Services BLOOD SPECIMEN / Unknown 03/24/2019 11:51 EDT 03/24/2019 22:24 EDT us Leticia Galdamez MD CHEMISTRY & BLOOD GAS ORDERAB LES Final Result [facility] [address] [place] [address] * (ABNORMAL) BLOOD GAS, G3 ISTAT (03/24/2019 10:06 EDT) pH, i-STAT 7.35 7.35 - 7.45 03/24/2019 10:12 [facility] pCO2, i-STAT 48(H) 35 - 45 mmHg 03/24/2019 10:12 [facility] pO2, i-STAT 69(L) 80 - 105 mmHg 03/24/2019 10:12 [facility] TCO2, i-STAT 28(H) 23 - 27 mEq/L 03/24/2019 10:12 [facility] O2 Saturation 93(L) 95 - 98 % 03/24/2019 10:12 [facility] Base Excess, i-STAT 1 03/24/2019 10:12 [facility] Sample Type ARTERIAL 03/24/2019 10:12 [facility] certification officer ID [id number] 03/24/2019 10:12 [facility] Comment: Test Performed by Respiratory For non-arterial reference ranges, please see ISTAT procedure. BLOOD SPECIMEN / Unknown 03/24/2019 10:06 EDT 03/24/2019 10:12 EDT us Letiica Galdamez MD CHEMISTRY & BLOOD GAS ORDERAB LES Final Result [facility] [address] [place] [address] * INPATIENT ADD-ON (03/24/2019 9:30 EDT) Tests to be added BUN 03/24/2019 9:29 EDT [facility] Number for problems [id number] 03/24/2019 9:39 EDT [facility] Accession number [id number] 03/24/2019 9:39 T [facility] TOPOGRAPHY UNKNOWN / Unknown 03/24/2019 9:30 EDT 03/24/2019 9:37 EDT us Betzy Zee MD HEMATOLOGY & PF4 ORDERABLES Final Result [facility] [address] [place] [address] * (ABNORMAL) BLOOD GAS, G3 ISTAT (03/24/2019 8:26 EDT) pH, i-STAT 7.43 7.35 - 7.45 03/24/2019 8:31 EDT [facility] pCO2, i-STAT 43 35 - 45 mmHg 03/24/2019 8:31 EDT [facility] pO2, i-STAT 56(L) 80 - 105 mmHg 03/24/2019 8:31 EDT [facility] TCO2, i-STAT 30(H) 23 - 27 mEq/L 03/24/2019 8:31 EDT [facility] O2 Saturation 90(L) 95 - 98 % 03/24/2019 8:31 T [facility] Base Excess, i-STAT 4 03/24/2019 8:31 EDT [facility] Sample Type ARTERIAL 03/24/2019 8:31 EDT [facility] certification officer ID [id number] 03/24/2019 8:31 EDT [facility] Comment: Test Performed by Respiratory For non-arterial reference ranges, please see ISTAT procedure. BLOOD SPECIMEN / Unknown 03/24/2019 8:26 EDT 03/24/2019 8:31 EDT us Leticia Galdamez MD CHEMISTRY & BLOOD GAS ORDERAB LES Final Result [facility] [address] [place] [address] * PORTABLE CHEST 1 VIEW (03/24/2019 8:26 EDT) Anatomical Region Laterality Modality Other 03/24/2019 8:26 EDT 03/24/2019 14:05 EDT Narrative 03/24/2019 14:05 EDT PORTABLE CHEST 1 VIEW ??03/24/2019 8:26 AM Clinical History/Comments: hypoxemic respiratory failure, pneumonia Comparison: Chest radiograph March 20, 2019. Findings: Single portable semiupright AP view of the chest. Lines/tubes: ??The tip of an endotracheal tube projects over the mid thoracic trachea. The tip of a right PICC crosses the midline and projects over the left brachiocephalic vein. The transesophageal tube extends into the stomach but with the tip excluded from the imaging [id number]. Soft tissues and bones: No significant abnormalities. Cardiac and mediastinal contours: Within normal limits Lungs: There are multifocal bilateral airspace opacities which are increased compared to March 20. Pleura: No visible pleural abnormalities however neither a pneumothorax or pleural effusion can be entirely excluded on this nonupright portable chest radiograph. Impression: 1. ??Malpositioned right PICC in the left brachiocephalic vein. Please correlate. 2. ??Worsening bilateral airspace opacities. I have personally reviewed the images and the above interpretation and agree with the findings. Procedure Note Nilesh Wiggins MD, - 03/24/2019 PORTABLE CHEST 1 VIEW 03/24/2019 8:26 AM Clinical History/Comments: hypoxemic respiratory failure, pneumonia Comparison: Chest radiograph March 20, 2019. Findings: Single portable semiupright AP view of the chest. Lines/tubes: The tip of an endotracheal tube projects over the mid thoracic trachea. The tip of a right PICC crosses the midline and projects over the left brachiocephalic vein. The transesophageal tube extends into the stomach but with the tip excluded from the imaging [id number]. Soft tissues and bones: No significant abnormalities. Cardiac and mediastinal contours: Within normal limits Lungs: There are multifocal bilateral airspace opacities which are increased compared to March 20. Pleura: No visible pleural abnormalities however neither a pneumothorax or pleural effusion can be entirely excluded on this nonupright portable chest radiograph. Impression: 1. Malpositioned right PICC in the left brachiocephalic vein. Please correlate. 2. Worsening bilateral airspace opacities. I have personally reviewed the images and the above interpretation and agree with the findings. us Domenica Esquivel MD IMG DIAGNOSTIC IMAGING ORDER BENJAMIN Final Result * INPATIENT ADD-ON (03/24/2019 6:45 EDT) [facility] Tests to be added ELECTROLYTES 03/24/2019 6:45 EDT [facility] Number for problems [id number] 03/24/2019 8:09 EDT [facility] Accession number [id number] 03/24/2019 8:09 EDT [facility] TOPOGRAPHY UNKNOWN / Unknown 03/24/2019 6:45 EDT 03/24/2019 8:09 EDT us Leticia Galdamez MD HEMATOLOGY & PF4 ORDERABLES F inal Result Performing Organization Address City/[facility]/ZIP Co de Phone Number [facility] [address] [place] [address] * (ABNORMAL) BUN (03/24/2019 6:00 EDT) BUN 66(H) 10 - 26 mg/dl 03/24/2019 11:11 EDT [facility] BLOOD SPECIMEN / Unknown 03/24/2019 6:00 EDT 03/24/2019 6:12 EDT us Kori Nguyen MD CHEMISTRY & BLOOD GAS ORD ERABLES Final Result Performing Organization Address [facility] Co de Phone Number [facility] [address] [place] [address] * (ABNORMAL) ELECTROLYTES (03/24/2019 6:00 EDT) Sodium 149(H) 136 - 145 mEq/L 03/24/2019 8:41 EDT [facility] Potassium 3.6 3.5 - 5.0 mEq/L 03/24/2019 8:41 EDT [facility] Chloride 116(H) 96 - 110 mEq/L 03/24/2019 8:41 EDT [facility] CO2 29 22 - 32 mEq/L 03/24/2019 8:41 EDT [facility] Comment: Interpret results with caution. Prolonged sample storage may alter result. BLOOD SPECIMEN / Unknown 03/24/2019 6:00 EDT 03/24/2019 6:12 EDT us Kori Nguyen MD CHEMISTRY & BLOOD GAS ORD ERABLES Final Result Performing Organization Address [facility]/ZIP Co de Phone Number [facility] [address] [place] [address] * (ABNORMAL) GLUCOSE, GLUCOMETER (03/24/2019 6:00 EDT) Glucose, Fingerstick 154(H) 70 - 100 mg/dl 03/24/2019 6:03 EDT [facility] Clinical Writer ID [id number] 03/24/2019 6:03 EDT [facility] Comment:Test Performed by [facility] Services BLOOD SPECIMEN / Unknown 03/24/2019 6:00 EDT 03/24/2019 6:03 EDT us Leticia Galdamez MD CHEMISTRY & BLOOD GAS ORDERAB LES Final Result Performing Organization Address [facility]/ZIP Co de Phone Number [facility] [address] [place] [address] * MAGNESIUM (03/24/2019 6:00 EDT) Magnesium 1.9 1.7 - 2.8 mg/dl 03/24/2019 6:37 EDT [facility] Blood specimen (specimen) BLOOD SPECIMEN / Unknown 03/24/2019 6:00 EDT 03/24/2019 6:12 EDT us Kori Nguyen MD CHEMISTRY & BLOOD GAS ORD ERABLES Final Result Performing Organization Address City/[facility]/ZIP Co de Phone Number [facility] [address] [place] [address] * (ABNORMAL) COMPLETE BLOOD COUNT (03/24/2019 6:00 EDT) WBC 8.54 4.0 - 10.4 K/cmm 03/24/2019 6:25 EDT [facility] RBC 2.30(L) 4.36 - 5.78 M/cmm 03/24/2019 6:25 EDT [facility] Hemoglobin 7.2(L) 13.8 - 17.3 gm/dl 03/24/2019 6:25 EDT [facility] HCT 21.6(L) 39.5 - 50.2 % 03/24/2019 6:25 EDT [facility] MCV 94 81 - 95 fl 03/24/2019 6:25 EDT [facility] MCH 31.3 27.6 - 33.0 pg 03/24/2019 6:25 EDT [facility] MCHC 33.3 32.8 - 36.4 gm/dl 03/24/2019 6:25 EDT [facility] RDW-CV 14.6(H) <14.2 % 03/24/2019 6:25 EDT [facility] RDW-SD 49.7(H) <46.0 fl 03/24/2019 6:25 T [facility] PLT 155 141 - 377 K/cmm 03/24/2019 6:25 EDT [facility] MPV 12.4 9.5 - 12.7 fl 03/24/2019 6:25 EDT [facility] Blood specimen (specimen) BLOOD SPECIMEN / Unknown 03/24/2019 6:00 EDT 03/24/2019 6:12 EDT us Domenica High MD HEMATOLOGY & PF4 ORDERABLES Fin al Result [facility] [address] [place] [address] * (ABNORMAL) CALCIUM (03/24/2019 6:00 EDT) Calcium 7.2(L) 8.5 - 10.5 mg/dl 03/24/2019 6:37 EDT [facility] Calculated Calcium 9.0 8.5 - 10.5 mg/dl 03/24/2019 6:37 EDT [facility] Blood specimen (specimen) BLOOD SPECIMEN / Unknown 03/24/2019 6:00 EDT 03/24/2019 6:12 EDT us Kori Nguyen MD CHEMISTRY & BLOOD GAS ORD ERABLES Final Result [facility] [address] [place] [address] * PHOSPHORUS (03/24/2019 6:00 EDT) Phosphorus 3.0 2.5 - 4.5 mg/dl 03/24/2019 6:37 EDT [facility] Blood specimen (specimen) BLOOD SPECIMEN / Unknown 03/24/2019 6:00 EDT 03/24/2019 6:12 EDT us Kori Nguyen MD CHEMISTRY & BLOOD GAS ORD ERABLES Final Result [facility] [address] [place] [address] * (ABNORMAL) CREATININE (03/24/2019 6:00 EDT) Creatinine 1.38(H) 0.66 - 1.25 mg/dl 03/24/2019 6:37 EDT [facility] GFR, Calculated 53(L) >60 ml/min/1.7 3m2 03/24/2019 6:37 EDT [facility] Comment: eGFR calculated using CKD-EPI equation for non Americans. Multiply eGFR by 1.16 for Americans. Blood specimen (specimen) BLOOD SPECIMEN / Unknown 03/24/2019 6:00 EDT 03/24/2019 6:12 EDT us Kori Nguyen MD CHEMISTRY & BLOOD GAS ORD ERABLES Final Result [facility] [address] [place] [address] * (ABNORMAL) GLUCOSE, GLUCOMETER (03/23/2019 23:50 EDT) Glucose, Fingerstick 190(H) 70 - 100 mg/dl 03/23/2019 23:55 EDT [facility] Clinical Writer ID [id number] 03/23/2019 23:55 EDT [facility] Comment:Test Performed by [employer] BLOOD SPECIMEN / Unknown 03/23/2019 23:50 EDT 03/23/2019 23:55 EDT us Leticia Galdamez MD CHEMISTRY & BLOOD GAS ORDERAB LES Final Result Performing Organization Address [facility] Co de Phone Number [facility] [address] [place] [address] * (ABNORMAL) ELECTROLYTES (03/23/2019 23:40 EDT) Sodium 148(H) 136 - 145 mEq/L 03/24/2019 0:25 EDT [facility] Potassium 2.9(LL) 3.5 - 5.0 mEq/L 03/24/2019 0:25 EDT [facility] Chloride 114(H) 96 - 110 mEq/L 03/24/2019 0:25 EDT [facility] CO2 29 22 - 32 mEq/L 03/24/2019 0:25 EDT [facility] Blood specimen (specimen) BLOOD SPECIMEN / Unknown 03/23/2019 23:40 EDT 03/24/2019 0:03 EDT us Kori Nguyen MD CHEMISTRY & BLOOD GAS ORD ERABLES Final Result Performing Organization Address [facility] Co de Phone Number [facility] [address] [place] [address] * (ABNORMAL) ELECTROLYTES (03/23/2019 18:24 EDT) Sodium 149(H) 136 - 145 mEq/L 03/23/2019 19:04 EDT [facility] Potassium 3.1(L) 3.5 - 5.0 mEq/L 03/23/2019 19:04 EDT [facility] Chloride 114(H) 96 - 110 mEq/L 03/23/2019 19:04 EDT [facility] CO2 31 22 - 32 mEq/L 03/23/2019 19:04 EDT [facility] Blood specimen (specimen) BLOOD SPECIMEN / Unknown 03/23/2019 18:24 EDT 03/23/2019 18:42 EDT us Kori Nguyen MD CHEMISTRY & BLOOD GAS ORD ERABLES Final Result [facility] [address] [place] [address] * (ABNORMAL) COMPLETE BLOOD COUNT (03/23/2019 18:24 EDT) WBC 10.92(H) 4.0 - 10.4 K/cmm 03/23/2019 19:01 [facility] RBC 2.46(L) 4.36 - 5.78 M/cmm 03/23/2019 19:01 [facility] Hemoglobin 7.9(L) 13.8 - 17.3 gm/dl 03/23/2019 19:01 [facility] HCT 23.3(L) 39.5 - 50.2 % 03/23/2019 19:01 [facility] MCV 95 81 - 95 fl 03/23/2019 19:01 [facility] MCH 32.1 27.6 - 33.0 pg 03/23/2019 19:01 [facility] MCHC 33.9 32.8 - 36.4 gm/dl 03/23/2019 19:01 [facility] RDW-CV 14.8(H) <14.2 % 03/23/2019 19:01 [facility] RDW-SD 50.8(H) <46.0 fl 03/23/2019 19:01 [facility] PLT 162 141 - 377 K/cmm 03/23/2019 19:01 [facility] MPV 12.6 9.5 - 12.7 fl 03/23/2019 19:01 [facility] Blood specimen (specimen) BLOOD SPECIMEN / Unknown 03/23/2019 18:24 EDT 03/23/2019 18:42 EDT us Brian Saldana MD HEMATOLOGY & PF4 ORDERABLES Juliana l Result [facility] [address] [place] [address] * (ABNORMAL) GLUCOSE, GLUCOMETER (03/23/2019 17:56 EDT) Glucose, Fingerstick 163(H) 70 - 100 mg/dl 03/23/2019 17:57 EDT [facility] Clinical Writer ID [id number] 03/23/2019 17:57 EDT [facility] Comment:Test Performed by [facility] [employer] Services BLOOD SPECIMEN / Unknown 03/23/2019 17:56 EDT 03/23/2019 17:57 EDT us Leticia Galdamez MD CHEMISTRY & BLOOD GAS ORDERAB LES Final Result [facility] [address] [place] [address] * (ABNORMAL) GLUCOSE, GLUCOMETER (03/23/2019 13:10 EDT) Glucose, Fingerstick 159(H) 70 - 100 mg/dl 03/23/2019 13:11 EDT [facility] Clinical Writer ID [id number] 03/23/2019 13:11 EDT [facility] Comment:Test Performed by [facility] BLOOD SPECIMEN / Unknown 03/23/2019 13:10 EDT 03/23/2019 13:11 EDT us Leticia Galdamez MD CHEMISTRY & BLOOD GAS ORDERAB LES Final Result [facility] [address] [place] [address] * INSERT PICC LINE (03/23/2019 9:28 EDT) Narrative Trina Drake RN - 03/23/2019 9:28 EDT Trina Drake RN ? 03/23/2019 ??9:28 Central Catheter Insertion First Catheter This Session ?supervisor composing room: Patient Location: [place] [address] Preliminary Data: Insertion Date: 03/23/19 Insertion Time: 0840 First Clinical Writer: Trina Drake RN RN/MA Documenting Procedure: Luis Camp Pre-procedure: Time Out / Final Moment Performed: Yes Hand Hygiene Immediately Prior To Procedure: Yes Site Disinfected-2% Chlorhex/70% Alcohol: Yes Procedure Site Completely Dry: Yes Entire Patient Draped in Sterile Fashion: Yes Intra-procedure: Sterile Gloves Used: Yes Cap, Mask, and Sterile Gown - Operators: Yes Sterile Field Maintained: Yes Cap and Mask Worn - All Personnel: Yes Post-procedure: Sterile Dressing Applied - Sterile Technique: Yes Dressing Dated And Timed: Yes Needle Passes: VA RN Makes 2 Or Fewer Needle Passes: 2 or fewer passes ?Physician Documentation Pre-Procedure: Procedure To Be Performed: New central line placement Indication: Poor peripheral access(limited access) Line Priority: Routine Tip Confirmation: 3CG Consent Obtained: Yes The patient and/or family have been provided education/training to minimize the risk of central line-associated bloodstream infections. Central Line Type: Central Catheter Type: PICC PICC Type: Solo PICC Central Line Details: Line Location: Right;Basilic Final Tip Location: (CAG with 3CG) Line Lumens (#): Triple Central Line Size: 5 Fr Line Coating: Non-antimicrobial coated Vessel Size: (0.33cm) Vein Depth (cm): (0.65cm) Line Trim Length: 42 cm Line External Length: Hub Line Securement Device: Statlock device Responsible Service / IR Details: Responsible Service: MIREYA RN Lidocaine 1% - Route/Dose (cc's): Subcutaneous;1 Central Line Materials and Methods: Number of Attempts: 1 Number of Sites Attempted: 1 Location Device Used: Sherlock;Ultrasound;3CG Central Line Operators: Number Of Operators: 1 First Clinical Writer's Name: Trina Drake RN First Clinical Writer's Title: Vascular ems driver Unless otherwise noted, there were no complications, no blood loss and no cultures obtained. TRINA DRAKE RN ?? 03/23/2019 ?? 9:28 us Domenica High MD IV THERAPY ORDERABLES Final Res ult * (ABNORMAL) GLUCOSE, GLUCOMETER (03/23/2019 6:21 EDT) Glucose, Fingerstick 108(H) 70 - 100 mg/dl 03/23/2019 6:26 EDT [facility] Clinical Writer ID [id number] 03/23/2019 6:26 EDT [facility] Comment:Test Performed by [employer] BLOOD SPECIMEN / Unknown 03/23/2019 6:21 EDT 03/23/2019 6:26 EDT us Leticia Galdamez MD CHEMISTRY & BLOOD GAS ORDERAB LES Final Result Performing Organization Address [facility] Co de Phone Number [facility] [address] [place] [address] * (ABNORMAL) ELECTROLYTES (03/23/2019 6:15 EDT) Sodium 150(H) 136 - 145 mEq/L 03/23/2019 6:49 EDT [facility] Potassium 3.6 3.5 - 5.0 mEq/L 03/23/2019 6:49 EDT [facility] Chloride 120(H) 96 - 110 mEq/L 03/23/2019 6:49 EDT [facility] CO2 28 22 - 32 mEq/L 03/23/2019 6:49 EDT [facility] Blood specimen (specimen) BLOOD SPECIMEN / Unknown 03/23/2019 6:15 EDT 03/23/2019 6:26 EDT us Flex Flores MD CHEMISTRY & BLOOD GAS ORDERABLE S Final Result Performing Organization Address [facility] de Phone Number [facility] [address] [place] [address] * MAGNESIUM (03/23/2019 6:15 EDT) Magnesium 2.1 1.7 - 2.8 mg/dl 03/23/2019 6:49 EDT [facility] Blood specimen (specimen) BLOOD SPECIMEN / Unknown 03/23/2019 6:15 EDT 03/23/2019 6:26 EDT us Kori Nguyen MD CHEMISTRY & BLOOD GAS ORD ERABLES Final Result Performing Organization Address City/[facility] Co de Phone Number [facility] [address] [place] [address] * (ABNORMAL) COMPLETE BLOOD COUNT (03/23/2019 6:15 EDT) WBC 9.43 4.0 - 10.4 K/cmm 03/23/2019 6:35 T [facility] RBC 2.47(L) 4.36 - 5.78 M/cmm 03/23/2019 6:35 [facility] Hemoglobin 8.0(L) 13.8 - 17.3 gm/dl 03/23/2019 6:35 [facility] HCT 23.1(L) 39.5 - 50.2 % 03/23/2019 6:35 [facility] MCV 94 81 - 95 fl 03/23/2019 6:35 [facility] MCH 32.4 27.6 - 33.0 pg 03/23/2019 6:35 [facility] MCHC 34.6 32.8 - 36.4 gm/dl 03/23/2019 6:35 [facility] RDW-CV 14.7(H) <14.2 % 03/23/2019 6:35 [facility] RDW-SD 50.0(H) <46.0 fl 03/23/2019 6:35 [facility] PLT 156 141 - 377 K/cmm 03/23/2019 6:35 [facility] MPV 12.2 9.5 - 12.7 fl 03/23/2019 6:35 [facility] Blood specimen (specimen) BLOOD SPECIMEN / Unknown 03/23/2019 6:15 EDT 03/23/2019 6:26 EDT us Domenica High MD HEMATOLOGY & PF4 ORDERABLES Fin al Result [facility] [address] [place] [address] * (ABNORMAL) CALCIUM (03/23/2019 6:15 EDT) Calcium 7.1(L) 8.5 - 10.5 mg/dl 03/23/2019 6:49 EDT [facility] Calculated Calcium 8.7 8.5 - 10.5 mg/dl 03/23/2019 6:49 EDT [facility] Blood specimen (specimen) BLOOD SPECIMEN / Unknown 03/23/2019 6:15 EDT 03/23/2019 6:26 EDT us Kori Nguyen MD CHEMISTRY & BLOOD GAS ORD ERABLES Final Result Performing Organization Address City/[facility]/ZIP Co de Phone Number [facility] [address] [place] [address] * PHOSPHORUS (03/23/2019 6:15 EDT) Phosphorus 3.8 2.5 - 4.5 mg/dl 03/23/2019 6:49 EDT [facility] Blood specimen (specimen) BLOOD SPECIMEN / Unknown 03/23/2019 6:15 EDT 03/23/2019 6:26 EDT us Kori Nguyen MD CHEMISTRY & BLOOD GAS ORD ERABLES Final Result Performing Organization Address City/[facility] Co de Phone Number [facility] [address] [place] [address] * (ABNORMAL) CREATININE (03/23/2019 6:15 EDT) Creatinine 1.58(H) 0.66 - 1.25 mg/dl 03/23/2019 6:49 EDT [facility] GFR, Calculated 45(L) >60 ml/min/1.7 3m2 03/23/2019 6:49 EDT [facility] Comment: eGFR calculated using CKD-EPI equation for non Americans. Multiply eGFR by 1.16 for Americans. Blood specimen (specimen) BLOOD SPECIMEN / Unknown 03/23/2019 6:15 EDT 03/23/2019 6:26 EDT us Kori Nguyen MD CHEMISTRY & BLOOD GAS ORD ERABLES Final Result [facility] [address] [place] [address] * (ABNORMAL) GLUCOSE, GLUCOMETER (03/23/2019 0:21 EDT) Glucose, Fingerstick 104(H) 70 - 100 mg/dl 03/23/2019 6:26 EDT [facility] Clinical Writer [place] [id number] 03/23/2019 6:26 EDT [facility] Comment:Test Performed by [facility] BLOOD SPECIMEN / Unknown 03/23/2019 0:21 EDT 03/23/2019 6:26 EDT us Leticia Galdamez MD CHEMISTRY & BLOOD GAS ORDERAB LES Final Result Performing Organization Address [facility]/ZIP Co de Phone Number [facility] [address] [place] [address] * (ABNORMAL) ELECTROLYTES (03/22/2019 19:59 EDT) Sodium 151(H) 136 - 145 mEq/L 03/22/2019 20:43 EDT [facility] Potassium 3.4(L) 3.5 - 5.0 mEq/L 03/22/2019 20:43 EDT [facility] Chloride 118(H) 96 - 110 mEq/L 03/22/2019 20:43 EDT [facility] CO2 30 22 - 32 mEq/L 03/22/2019 20:43 EDT [facility] Blood specimen (specimen) BLOOD SPECIMEN / Unknown 03/22/2019 19:59 EDT 03/22/2019 20:05 EDT us Flex Flores MD CHEMISTRY & BLOOD GAS ORDERABLE S Final Result [facility] [address] [place] [address] * (ABNORMAL) GLUCOSE, GLUCOMETER (03/22/2019 18:27 EDT) Glucose, Fingerstick 124(H) 70 - 100 mg/dl 03/22/2019 18:28 EDT [facility] Clinical Writer ID [id number] 03/22/2019 18:28 EDT [facility] Comment:Test Performed by [facility] Services BLOOD SPECIMEN / Unknown 03/22/2019 18:27 EDT 03/22/2019 18:28 EDT Leticia Galdamez MD CHEMISTRY & BLOOD GAS ORDERAB LES Final Result Performing Organization Address [facility] Co de Phone Number [facility] [address] [place] [address] * (ABNORMAL) GLUCOSE, GLUCOMETER (03/22/2019 11:50 EDT) Glucose, Fingerstick 144(H) 70 - 100 mg/dl 03/22/2019 11:50 EDT [facility] Clinical Writer ID [id number] 03/22/2019 11:50 EDT [facility] Comment:Test Performed by rsing Services BLOOD SPECIMEN / Unknown 03/22/2019 11:50 EDT 03/22/2019 11:51 EDT Leticia Galdamez MD CHEMISTRY & BLOOD GAS ORDERAB LES Final Result Performing Organization Address [facility] Co de Phone Number [facility] [address] [place] [id number] * (ABNORMAL) COMPLETE BLOOD COUNT (03/22/2019 9:26 EDT) WBC 6.13 4.0 - 10.4 K/cmm 03/22/2019 9:40 EDT [facility] RBC 2.57(L) 4.36 - 5.78 M/cmm 03/22/2019 9:40 EDT [facility] Hemoglobin 8.2(L) 13.8 - 17.3 gm/dl 03/22/2019 9:40 EDT [facility] HCT 23.2(L) 39.5 - 50.2 % 03/22/2019 9:40 EDT [facility] MCV 90 81 - 95 fl 03/22/2019 9:40 EDT [facility] MCH 31.9 27.6 - 33.0 pg 03/22/2019 9:40 EDT [facility] MCHC 35.3 32.8 - 36.4 gm/dl 03/22/2019 9:40 EDT [facility] RDW-CV 15.1(H) <14.2 % 03/22/2019 9:40 EDT [facility] RDW-SD 49.4(H) <46.0 fl 03/22/2019 9:40 EDT [facility] PLT 133(L) 141 - 377 K/cmm 03/22/2019 9:40 EDT [facility] MPV 12.4 9.5 - 12.7 fl 03/22/2019 9:40 EDT [facility] Blood specimen (specimen) BLOOD SPECIMEN / Unknown 03/22/2019 9:26 EDT 03/22/2019 9:34 EDT us Jonatan Martinez MD HEMATOLOGY & PF4 ORDERABLES F inal Result [facility] [address] [place] [address] * MAGNESIUM (03/22/2019 9:26 EDT) Magnesium 2.2 1.7 - 2.8 mg/dl 03/22/2019 9:54 EDT [facility] Blood specimen (specimen) BLOOD SPECIMEN / Unknown 03/22/2019 9:26 EDT 03/22/2019 9:34 EDT us Flex Flores MD CHEMISTRY & BLOOD GAS ORDERABLE S Final Result Performing Organization Address [facility] Co de Phone Number [facility] [address] [place] [address] * (ABNORMAL) ELECTROLYTES (03/22/2019 9:26 EDT) Sodium 152(H) 136 - 145 mEq/L 03/22/2019 9:54 EDT [facility] Potassium 3.5 3.5 - 5.0 mEq/L 03/22/2019 9:54 EDT [facility] Chloride 118(H) 96 - 110 mEq/L 03/22/2019 9:54 EDT [facility] CO2 29 22 - 32 mEq/L 03/22/2019 9:54 EDT [facility] Blood specimen (specimen) BLOOD SPECIMEN / Unknown 03/22/2019 9:26 EDT 03/22/2019 9:34 EDT us Flex Flores MD CHEMISTRY & BLOOD GAS ORDERABLE S Final Result Performing Organization Address City/[facility]/ZIP Co de Phone Number [facility] [address] [place] [address] * (ABNORMAL) GLUCOSE, GLUCOMETER (03/22/2019 6:10 EDT) Glucose, Fingerstick 123(H) 70 - 100 mg/dl 03/22/2019 6:15 EDT [facility] Clinical Writer ID [id number] 03/22/2019 6:15 EDT [facility] Comment:Test Performed by Nu ing Services BLOOD SPECIMEN / Unknown 03/22/2019 6:10 EDT 03/22/2019 6:15 EDT us Leticia Galdamez MD CHEMISTRY & BLOOD GAS ORDERAB LES Final Result [facility] [address] [place] [address] * (ABNORMAL) COMPLETE BLOOD COUNT (03/22/2019 4:25 EDT) WBC 6.14 4.0 - 10.4 K/cmm 03/22/2019 4:50 EDT [facility] RBC 2.50(L) 4.36 - 5.78 M/cmm 03/22/2019 4:50 EDT [facility] Hemoglobin 7.9(L) 13.8 - 17.3 gm/dl 03/22/2019 4:50 EDT [facility] HCT 22.5(L) 39.5 - 50.2 % 03/22/2019 4:50 T [facility] MCV 90 81 - 95 fl 03/22/2019 4:50 T [facility] MCH 31.6 27.6 - 33.0 pg 03/22/2019 4:50 [facility] MCHC 35.1 32.8 - 36.4 gm/dl 03/22/2019 4:50 [facility] RDW-CV 15.0(H) <14.2 % 03/22/2019 4:50 [facility] RDW-SD 49.5(H) <46.0 fl 03/22/2019 4:50 [facility] PLT 109(L) 141 - 377 K/cmm 03/22/2019 4:50 [facility] MPV 12.7 9.5 - 12.7 fl 03/22/2019 4:50 T [facility] Blood specimen (specimen) BLOOD SPECIMEN / Unknown 03/22/2019 4:25 EDT 03/22/2019 4:37 EDT us Jonatan Martinez MD HEMATOLOGY & PF4 ORDERABLES F inal Result [facility] [address] [place] [address] * (ABNORMAL) CALCIUM (03/22/2019 4:25 EDT) Calcium 6.9(L) 8.5 - 10.5 mg/dl 03/22/2019 5:10 EDT [facility] Calculated Calcium 8.5 8.5 - 10.5 mg/dl 03/22/2019 5:10 T [facility] Blood specimen (specimen) BLOOD SPECIMEN / Unknown 03/22/2019 4:25 EDT 03/22/2019 4:37 EDT us Kori Nguyen MD CHEMISTRY & BLOOD GAS ORD ERABLES Final Result [facility] [address] [place] [address] * (ABNORMAL) PHOSPHORUS (03/22/2019 4:25 EDT) Phosphorus 5.3(H) 2.5 - 4.5 mg/dl 03/22/2019 5:10 EDT [facility] Blood specimen (specimen) BLOOD SPECIMEN / Unknown 03/22/2019 4:25 EDT 03/22/2019 4:37 EDT us Kori Nguyen MD CHEMISTRY & BLOOD GAS ORD ERABLES Final Result Performing Organization Address [facility] Co de Phone Number [facility] [address] [place] [address] * (ABNORMAL) CREATININE (03/22/2019 4:25 EDT) Creatinine 1.99(H) 0.66 - 1.25 mg/dl 03/22/2019 5:10 EDT [facility] GFR, Calculated 34(L) >60 ml/min/1.7 3m2 03/22/2019 5:10 EDT [facility] Comment: eGFR calculated using CKD-EPI equation for non Americans. Multiply eGFR by 1.16 for Americans. Blood specimen (specimen) BLOOD SPECIMEN / Unknown 03/22/2019 4:25 EDT 03/22/2019 4:37 EDT us Kori Nguyen MD CHEMISTRY & BLOOD GAS ORD ERABLES Final Result Performing Organization Address City/[facility]/ZIP Co de Phone Number [facility] [address] [place] [address] * (ABNORMAL) GLUCOSE, GLUCOMETER (03/22/2019 3:06 EDT) Glucose, Fingerstick 111(H) 70 - 100 mg/dl 03/22/2019 3:11 EDT [facility] Clinical Writer ID [id number] 03/22/2019 3:11 EDT [facility] Comment:Test Performed by [facility] [employer] BLOOD SPECIMEN / Unknown 03/22/2019 3:06 EDT 03/22/2019 3:11 EDT Leticia Galdamez MD CHEMISTRY & BLOOD GAS ORDERAB LES Final Result Performing Organization Address City/[facility]/ZIP Co de Phone Number [facility] [address] [place] [address] * (ABNORMAL) GLUCOSE, GLUCOMETER (03/22/2019 1:00 EDT) Glucose, Fingerstick 117(H) 70 - 100 mg/dl 03/22/2019 1:05 EDT [facility] Clinical Writer ID [id number] 03/22/2019 1:05 EDT [facility] Comment:Test Performed by [employer] BLOOD SPECIMEN / Unknown 03/22/2019 1:00 EDT 03/22/2019 1:05 EDT Leticia Galdamez MD CHEMISTRY & BLOOD GAS ORDERAB LES Final Result Performing Organization Address [facility] Co de Phone Number [facility] [address] [place] [address] * (ABNORMAL) GLUCOSE, GLUCOMETER (03/22/2019 0:02 EDT) Glucose, Fingerstick 119(H) 70 - 100 mg/dl 03/22/2019 0:07 EDT [facility] Clinical Writer ID [id number] 03/22/2019 0:07 EDT [facility] Comment:Test Performed by [employer] BLOOD SPECIMEN / Unknown 03/22/2019 0:02 EDT 03/22/2019 0:07 EDT Leticia Galdamez MD CHEMISTRY & BLOOD GAS ORDERAB LES Final Result Performing Organization Address City/[facility]/ZIP Co de Phone Number [facility] [address] [place] [address] * MAGNESIUM (03/21/2019 23:16 EDT) Magnesium 2.3 1.7 - 2.8 mg/dl 03/21/2019 23:39 EDT [facility] Blood specimen (specimen) BLOOD SPECIMEN / Unknown 03/21/2019 23:16 EDT 03/21/2019 23:20 EDT us Kori Nguyen MD CHEMISTRY & BLOOD GAS ORD ERABLES Final Result Performing Organization Address [facility] de Phone Number [facility] [address] [place] [address] * (ABNORMAL) ELECTROLYTES (03/21/2019 23:16 EDT) Pathologist [facility] Sodium 152(H) 136 - 145 mEq/L 03/21/2019 23:39 EDT [facility] Potassium 4.2 3.5 - 5.0 mEq/L 03/21/2019 23:39 T [facility] Chloride 119(H) 96 - 110 mEq/L 03/21/2019 23:39 EDT [facility] CO2 31 22 - 32 mEq/L 03/21/2019 23:39 T [facility] Blood specimen (specimen) BLOOD SPECIMEN / Unknown 03/21/2019 23:16 EDT 03/21/2019 23:20 EDT us Kori Nguyen MD CHEMISTRY & BLOOD GAS ORD ERABLES Final Result Performing Organization Address [facility] de Phone Number [facility] [address] [place] [address] * (ABNORMAL) COMPLETE BLOOD COUNT (03/21/2019 23:16 EDT) WBC 7.85 4.0 - 10.4 K/cmm 03/21/2019 23:34 T [facility] RBC 2.45(L) 4.36 - 5.78 M/cmm 03/21/2019 23:34 T [facility] Hemoglobin 7.8(L) 13.8 - 17.3 gm/dl 03/21/2019 23:34 [facility] HCT 22.4(L) 39.5 - 50.2 % 03/21/2019 23:34 [facility] MCV 91 81 - 95 fl 03/21/2019 23:34 [facility] MCH 31.8 27.6 - 33.0 pg 03/21/2019 23:34 [facility] MCHC 34.8 32.8 - 36.4 gm/dl 03/21/2019 23:34 [facility] RDW-CV 15.3(H) <14.2 % 03/21/2019 23:34 [facility] RDW-SD 51.0(H) <46.0 fl 03/21/2019 23:34 [facility] PLT 100(L) 141 - 377 K/cmm 03/21/2019 23:34 [facility] MPV 13.0(H) 9.5 - 12.7 fl 03/21/2019 23:34 [facility] Blood specimen (specimen) BLOOD SPECIMEN / Unknown 03/21/2019 23:16 EDT 03/21/2019 23:20 EDT us Jonatan Martinez MD HEMATOLOGY & PF4 ORDERABLES F inal Result [facility] [address] [place] [address] * (ABNORMAL) GLUCOSE, GLUCOMETER (03/21/2019 23:02 EDT) Glucose, Fingerstick 108(H) 70 - 100 mg/dl 03/21/2019 23:07 T [facility] Clinical Writer ID [id number] 03/21/2019 23:07 [facility] Comment:Test Performed by [facility] BLOOD SPECIMEN / Unknown 03/21/2019 23:02 EDT 03/21/2019 23:07 EDT us Leticia Galdamez MD CHEMISTRY & BLOOD GAS ORDERAB LES Final Result [facility] [address] [place] [address] * (ABNORMAL) GLUCOSE, GLUCOMETER (03/21/2019 22:04 EDT) Glucose, Fingerstick 108(H) 70 - 100 mg/dl 03/21/2019 22:08 EDT [facility] Clinical Writer ID [id number] 03/21/2019 22:08 EDT [facility] Comment:Test Performed by [facility] BLOOD SPECIMEN / Unknown 03/21/2019 22:04 EDT 03/21/2019 22:08 EDT us Leticia Galdamez MD CHEMISTRY & BLOOD GAS ORDERAB LES Final Result [facility] [address] [place] [address] * GLUCOSE, GLUCOMETER (03/21/2019 21:13 EDT) Glucose, Fingerstick 99 70 - 100 mg/dl 03/21/2019 21:17 EDT [facility] Clinical Writer ID [id number] 03/21/2019 21:17 EDT [facility] Comment:Test Performed by [facility] BLOOD SPECIMEN / Unknown 03/21/2019 21:13 EDT 03/21/2019 21:17 EDT us Leticia Galdamez MD CHEMISTRY & BLOOD GAS ORDERAB LES Final Result [facility] [address] [place] [address] * GLUCOSE, GLUCOMETER (03/21/2019 19:59 EDT) Glucose, Fingerstick 99 70 - 100 mg/dl 03/21/2019 20:04 EDT [facility] Clinical Writer ID [id number] 03/21/2019 20:04 EDT [facility] Comment:Test Performed by [facility] BLOOD SPECIMEN / Unknown 03/21/2019 19:59 EDT 03/21/2019 20:04 EDT us Leticia Galdamez MD CHEMISTRY & BLOOD GAS ORDERAB LES Final Result Performing Organization Address City/[facility]/ZIP Co de Phone Number [facility] [address] [place] [address] * (ABNORMAL) GLUCOSE, GLUCOMETER (03/21/2019 19:02 EDT) Glucose, Fingerstick 121(H) 70 - 100 mg/dl 03/21/2019 20:04 EDT [facility] Clinical Writer ID [id number] 03/21/2019 20:04 EDT [facility] Comment:Test Performed by [facility] BLOOD SPECIMEN / Unknown 03/21/2019 19:02 EDT 03/21/2019 20:04 EDT us Leticia Galdamez MD CHEMISTRY & BLOOD GAS ORDERAB LES Final Result Performing Organization Address [facility] Co de Phone Number [facility] [address] [place] [address] * (ABNORMAL) GLUCOSE, GLUCOMETER (03/21/2019 18:03 EDT) Glucose, Fingerstick 140(H) 70 - 100 mg/dl 03/21/2019 18:08 EDT [facility] Clinical Writer ID [id number] 03/21/2019 18:08 EDT [facility] Comment:Test Performed by [facility] BLOOD SPECIMEN / Unknown 03/21/2019 18:03 EDT 03/21/2019 18:08 EDT us Leticia Galdamez MD CHEMISTRY & BLOOD GAS ORDERAB LES Final Result Performing Organization Address City/[facility]/ZIP Co de Phone Number [facility] [address] [place] [address] * MAGNESIUM (03/21/2019 17:18 EDT) Magnesium 2.3 1.7 - 2.8 mg/dl 03/21/2019 17:56 EDT [facility] Blood specimen (specimen) BLOOD SPECIMEN / Unknown 03/21/2019 17:18 EDT 03/21/2019 17:28 EDT us Kori Nguyen MD CHEMISTRY & BLOOD GAS ORD ERABLES Final Result Performing Organization Address [facility] de Phone Number [facility] [address] [place] [address] * (ABNORMAL) ELECTROLYTES (03/21/2019 17:18 EDT) Sodium 154(H) 136 - 145 mEq/L 03/21/2019 17:56 EDT [facility] Potassium 4.5 3.5 - 5.0 mEq/L 03/21/2019 17:56 EDT [facility] Chloride 119(H) 96 - 110 mEq/L 03/21/2019 17:56 EDT [facility] CO2 29 22 - 32 mEq/L 03/21/2019 17:56 EDT [facility] Blood specimen (specimen) BLOOD SPECIMEN / Unknown 03/21/2019 17:18 EDT 03/21/2019 17:28 EDT us Kori Nguyen MD CHEMISTRY & BLOOD GAS ORD ERABLES Final Result Performing Organization Address [facility] Co de Phone Number [facility] [address] [place] [phone] * (ABNORMAL) COMPLETE BLOOD COUNT (03/21/2019 17:18 EDT) WBC 9.43 4.0 - 10.4 K/cmm 03/21/2019 17:50 EDT [facility] RBC 2.58(L) 4.36 - 5.78 M/cmm 03/21/2019 17:50 EDT [facility] Hemoglobin 8.1(L) 13.8 - 17.3 gm/dl 03/21/2019 17:50 EDT [facility] HCT 23.3(L) 39.5 - 50.2 % 03/21/2019 17:50 T [facility] MCV 90 81 - 95 fl 03/21/2019 17:50 T [facility] MCH 31.4 27.6 - 33.0 pg 03/21/2019 17:50 [facility] MCHC 34.8 32.8 - 36.4 gm/dl 03/21/2019 17:50 T [facility] RDW-CV 15.3(H) <14.2 % 03/21/2019 17:50 T [facility] RDW-SD 50.2(H) <46.0 fl 03/21/2019 17:50 [facility] PLT 98(L) 141 - 377 K/cmm 03/21/2019 17:50 [facility] MPV 12.6 9.5 - 12.7 fl 03/21/2019 17:50 [facility] Blood specimen (specimen) BLOOD SPECIMEN / Unknown 03/21/2019 17:18 EDT 03/21/2019 17:28 EDT us Jonatan Martinez MD HEMATOLOGY & PF4 ORDERABLES F inal Result [facility] [address] [place] [address] * (ABNORMAL) D-DIMER (03/21/2019 17:18 EDT) D-Dimer 565(H) <230 ng/mL 03/21/2019 17:54 EDT [facility] Comment: CUTOFF VALUE FOR THE EXCLUSION OF DVT and PE: 230 ng/mL D-dimer units Any use of the age-adjusted cutoff value is a post-analytic modification of this FDA-approved test and is considered off-label use of the test result. [facility] laboratory does not have literature to support the validity of an age-adjusted cutoff for our specific assay. Blood specimen (specimen) BLOOD SPECIMEN / Unknown 03/21/2019 17:18 EDT 03/21/2019 17:28 EDT us Flex Flores MD HEMATOLOGY & PF4 ORDERABLES Fin al Result Performing Organization Address [facility] Co de Phone Number [facility] [address] [place] [address] * FIBRINOGEN (03/21/2019 17:18 EDT) Fibrinogen 319 171 - 384 mg/dl 03/21/2019 18:19 EDT [facility] Blood specimen (specimen) BLOOD SPECIMEN / Unknown 03/21/2019 17:18 EDT 03/21/2019 17:28 EDT us Flex Flores MD HEMATOLOGY & PF4 ORDERABLES Fin al Result Performing Organization Address [facility] Co de Phone Number [facility] [address] [place] [address] * PTT (03/21/2019 17:18 EDT) PTT 27 26 - 37 secs 03/21/2019 17:54 EDT [facility] Blood specimen (specimen) BLOOD SPECIMEN / Unknown 03/21/2019 17:18 EDT 03/21/2019 17:28 EDT us Flex Flores MD HEMATOLOGY & PF4 ORDERABLES Fin al Result Performing Organization Address [facility] Co de Phone Number [facility] [address] [place] [address] * (ABNORMAL) GLUCOSE, GLUCOMETER (03/21/2019 17:04 EDT) Glucose, Fingerstick 159(H) 70 - 100 mg/dl 03/21/2019 17:09 EDT [facility] Clinical Writer ID [id number] 03/21/2019 17:09 EDT [facility] Comment:Test Performed by [facility] BLOOD SPECIMEN / Unknown 03/21/2019 17:04 EDT 03/21/2019 17:09 EDT us Leticia Galdamez MD CHEMISTRY & BLOOD GAS ORDERAB LES Final Result [facility] [address] [place] [address] * SURGICAL PATHOLOGY (03/21/2019 16:23 EDT) Pathology Report: SURGICAL PATHOLOGY REPORT Reports generated via electronic interface contain original data; however they are lacking the format of the original report. Caution should be taken when reading/interpret ing unformatted reports. Name: ? SHIRLENE BRYAN ? Accession #: ? [id number] ? : ? 1955 (Age: 64) ??M ? Collect Date: ? 03/21/2019 ? Location: ? M004 ? Receive Date: ? 03/21/2019 ? Provider: JEYSON GARCIA MD Copy to: LETICIA ROMANO DO ? Final Pathologic Diagnosis: STOMACH, SITE NOT SPECIFIED, BIOPSY: - Erosive gastritis the background of reactive (chemical) gastropathy. Document reviewed and electronically signed by: BETHANY HOLM MD Report ??Date: 03/23/2019 10:15 By the signature above, the attending physician certifies that he/she has personally conducted a gross and/or microscopic examination of the described specimens and rendered or confirmed the above diagnosis. Specimen(s) Received: Stomach Clinical History: Melena with ulcers, R/O H. pylori Gross Description: ? Received in formalin labelled with proper patient identification (initials G, S) and stomach BX are three brown irregular tissues ranging from 0.1 cm in greatest dimension to 0.3 x 0.2 x 0.2 cm. Entirely submitted in 1. DONNA Ontiveros (ASCP) 03/21/2019 5:42 PM End of Report [facility] 03/21/2019 16:2 3 EDT 03/21/2019 16:23 EDT Jeyson Garcia MD PATHOLOGY ORDERABLES Final Result Performing Organization Address City/[facility]/ZIP Co de Phone Number [facility] [address] [place] [address] * (ABNORMAL) GLUCOSE, GLUCOMETER (03/21/2019 16:05 EDT) Glucose, Fingerstick 179(H) 70 - 100 mg/dl 03/21/2019 16:09 EDT [facility] Clinical Writer ID [id number] 03/21/2019 16:09 EDT [facility] Comment:Test Performed by [employer] BLOOD SPECIMEN / Unknown 03/21/2019 16:05 EDT 03/21/2019 16:09 EDT us Leticia Galdamez MD CHEMISTRY & BLOOD GAS ORDERAB LES Final Result Performing Organization Address [facility] Co de Phone Number [facility] [address] [place] [address] * (ABNORMAL) GLUCOSE, GLUCOMETER (03/21/2019 14:59 EDT) Glucose, Fingerstick 189(H) 70 - 100 mg/dl 03/21/2019 15:03 EDT [facility] Clinical Writer ID [id number] 03/21/2019 15:03 EDT [facility] Comment:Test Performed by [employer] BLOOD SPECIMEN / Unknown 03/21/2019 14:59 EDT 03/21/2019 15:03 EDT Leticia Galdamez MD CHEMISTRY & BLOOD GAS ORDERAB LES Final Result Performing Organization Address City/[facility]/ZIP Co de Phone Number [facility] [address] [place] [address] * XRAY FEEDING TUBE PLACEMENT (03/21/2019 14:19 EDT) Anatomical Region Laterality Modality Other 03/21/2019 14:1 9 EDT 03/21/2019 14:50 EDT Narrative 03/21/2019 14:50 EDT XRAY FEEDING TUBE PLACEMENT ??03/21/2019 2:19 PM Signs And Symptoms/Comments: ?? check feeding tube placement. Feeding tube is required in setting of nutritional deficits in setting of intubation and sedation. Comparison: ?? Chest radiographs with the most recent 03/17/2019. Chest CT the 2001. Findings/technique: Portable AP view centered over the lower chest and upper abdomen demonstrates that the feeding tube tip projects at the level of the gastric body. This is neither a complete view of the chest nor of the abdomen. ??If either view is needed, formal films are recommended. I have personally reviewed the images and the above interpretation and agree with the findings. Procedure Note Claudette Garcia MD, - 03/21/2019 XRAY FEEDING TUBE PLACEMENT 03/21/2019 2:19 PM Signs And Symptoms/Comments: check feeding tube placement. Feeding tube is required in setting of nutritional deficits in setting of intubation and sedation. Comparison: Chest radiographs with the most recent 03/17/2019. Chest CT the 2001. Findings/technique: Portable AP view centered over the lower chest and upper abdomen demonstrates that the feeding tube tip projects at the level of the gastric body. This is neither a complete view of the chest nor of the abdomen. If either view is needed, formal films are recommended. I have personally reviewed the images and the above interpretation and agree with the findings. us Jonatan Martinez MD IMG DIAGNOSTIC IMAGING ORDERA BLES Final Result * (ABNORMAL) GLUCOSE, GLUCOMETER (03/21/2019 13:53 EDT) Glucose, Fingerstick 176(H) 70 - 100 mg/dl 03/21/2019 13:58 EDT [facility] Clinical Writer ID [id number] 03/21/2019 13:58 EDT [facility] Comment:Test Performed by [employer] BLOOD SPECIMEN / Unknown 03/21/2019 13:53 EDT 03/21/2019 13:58 EDT us Leticia Galdamez MD CHEMISTRY & BLOOD GAS ORDERAB LES Final Result Performing Organization Address [facility] Co de Phone Number [facility] [address] [place] [address] * (ABNORMAL) GLUCOSE, GLUCOMETER (03/21/2019 11:26 EDT) Glucose, Fingerstick 228(H) 70 - 100 mg/dl 03/21/2019 11:30 EDT [facility] Clinical Writer ID [id number] 03/21/2019 11:30 EDT [facility] Comment:Test Performed by [facility] BLOOD SPECIMEN / Unknown 03/21/2019 11:26 EDT 03/21/2019 11:30 EDT us Leticia Galdamez MD CHEMISTRY & BLOOD GAS ORDERAB LES Final Result Performing Organization Address [facility] Co de Phone Number [facility] [address] [place] [address] * MAGNESIUM (03/21/2019 11:22 EDT) Magnesium 2.4 1.7 - 2.8 mg/dl 03/21/2019 12:00 EDT [facility] Blood specimen (specimen) BLOOD SPECIMEN / Unknown 03/21/2019 11:22 EDT 03/21/2019 11:38 EDT us Kori Nguyen MD CHEMISTRY & BLOOD GAS ORD ERABLES Final Result Performing Organization Address [facility]/ZIP Co de Phone Number [facility] [address] [place] [address] * (ABNORMAL) ELECTROLYTES (03/21/2019 11:22 EDT) Sodium 151(H) 136 - 145 mEq/L 03/21/2019 12:00 EDT [facility] Potassium 5.2(H) 3.5 - 5.0 mEq/L 03/21/2019 12:00 EDT [facility] Chloride 117(H) 96 - 110 mEq/L 03/21/2019 12:00 T [facility] CO2 29 22 - 32 mEq/L 03/21/2019 12:00 [facility] Blood specimen (specimen) BLOOD SPECIMEN / Unknown 03/21/2019 11:22 EDT 03/21/2019 11:38 EDT us Kori Nguyen MD CHEMISTRY & BLOOD GAS ORD ERABLES Final Result [facility] [address] [place] [address] * (ABNORMAL) COMPLETE BLOOD COUNT (03/21/2019 11:22 EDT) WBC 10.34 4.0 - 10.4 K/cmm 03/21/2019 11:48 [facility] RBC 2.83(L) 4.36 - 5.78 M/cmm 03/21/2019 11:48 [facility] Hemoglobin 9.2(L) 13.8 - 17.3 gm/dl 03/21/2019 11:48 [facility] HCT 25.5(L) 39.5 - 50.2 % 03/21/2019 11:48 [facility] MCV 90 81 - 95 fl 03/21/2019 11:48 [facility] MCH 32.5 27.6 - 33.0 pg 03/21/2019 11:48 [facility] MCHC 36.1 32.8 - 36.4 gm/dl 03/21/2019 11:48 [facility] RDW-CV 15.4(H) <14.2 % 03/21/2019 11:48 [facility] RDW-SD 50.5(H) <46.0 fl 03/21/2019 11:48 [facility] PLT 105(L) 141 - 377 K/cmm 03/21/2019 11:48 [facility] MPV 12.7 9.5 - 12.7 fl 03/21/2019 11:48 EDT [facility] Blood specimen (specimen) BLOOD SPECIMEN / Unknown 03/21/2019 11:22 EDT 03/21/2019 11:38 EDT Jonatan Martinez MD HEMATOLOGY & PF4 ORDERABLES F inal Result Performing Organization Address [facility] Co de Phone Number [facility] [address] [place] [address] * (ABNORMAL) D-DIMER (03/21/2019 11:22 EDT) D-Dimer 707(H) <230 ng/mL 03/21/2019 12:06 EDT [facility] Comment: CUTOFF VALUE FOR THE EXCLUSION OF DVT and PE: 230 ng/mL D-dimer units Any use of the age-adjusted cutoff value is a post-analytic modification of this FDA-approved test and is considered off-label use of the test result. [facility] laboratory does not have literature to support the validity of an age-adjusted cutoff for our specific assay. Blood specimen (specimen) BLOOD SPECIMEN / Unknown 03/21/2019 11:22 EDT 03/21/2019 11:38 EDT Flex Flores MD HEMATOLOGY & PF4 ORDERABLES Fin al Result Performing Organization Address [facility] Co de Phone Number [facility] [address] [place] [id number] * FIBRINOGEN (03/21/2019 11:22 EDT) Fibrinogen 310 171 - 384 mg/dl 03/21/2019 12:12 EDT [facility] Blood specimen (specimen) BLOOD SPECIMEN / Unknown 03/21/2019 11:22 EDT 03/21/2019 11:38 EDT Flex Flores MD HEMATOLOGY & PF4 ORDERABLES Fin al Result Performing Organization Address [facility] Co de Phone Number [facility] [address] [place] [address] * PTT (03/21/2019 11:22 EDT) PTT 28 26 - 37 secs 03/21/2019 12:06 EDT [facility] Blood specimen (specimen) BLOOD SPECIMEN / Unknown 03/21/2019 11:22 EDT 03/21/2019 11:38 EDT us Flex Flores MD HEMATOLOGY & PF4 ORDERABLES Fin al Result Performing Organization Address City/[facility]/ZIP Co de Phone Number [facility] [address] [place] [address] * LACTIC ACID (03/21/2019 11:21 EDT) Lactic Acid 1.8 <2.1 mmol/L 03/21/2019 11:55 EDT [facility] Blood specimen (specimen) BLOOD SPECIMEN / Unknown 03/21/2019 11:21 EDT 03/21/2019 11:37 EDT us Kori Nguyen MD CHEMISTRY & BLOOD GAS ORD ERABLES Final Result Performing Organization Address [facility] de Phone Number [facility] [address] [place] [address] * ECG REPORT - SCANNED (03/21/2019 7:21 EDT) 03/21/2019 7:21 EDT us Scan 2 [employer] PROCEDURE/MINOR SURGICAL OR DERABLES Final Result * (ABNORMAL) GLUCOSE, GLUCOMETER (03/21/2019 6:14 EDT) Glucose, Fingerstick 190(H) 70 - 100 mg/dl 03/21/2019 6:16 EDT [facility] Clinical Writer ID [id number] 03/21/2019 6:16 EDT [facility] Comment:Test Performed by [employer] BLOOD SPECIMEN / Unknown 03/21/2019 6:14 EDT 03/21/2019 6:16 EDT us eLticia Galdamez MD CHEMISTRY & BLOOD GAS ORDERAB LES Final Result Performing Organization Address City/[facility]/ZIP Co de Phone Number [facility] [address] [place] [address] * MAGNESIUM (03/21/2019 4:43 EDT) Magnesium 2.5 1.7 - 2.8 mg/dl 03/21/2019 5:17 EDT [facility] Blood specimen (specimen) BLOOD SPECIMEN / Unknown 03/21/2019 4:43 EDT 03/21/2019 4:47 EDT us Kori Nguyen MD CHEMISTRY & BLOOD GAS ORD ERABLES Final Result Performing Organization Address [facility] Co de Phone Number [facility] [address] [place] [address] * (ABNORMAL) ELECTROLYTES (03/21/2019 4:43 EDT) Pathologist [facility] Sodium 149(H) 136 - 145 mEq/L 03/21/2019 5:17 EDT [facility] Potassium 5.4(H) 3.5 - 5.0 mEq/L 03/21/2019 5:17 EDT [facility] Chloride 114(H) 96 - 110 mEq/L 03/21/2019 5:17 EDT [facility] CO2 29 22 - 32 mEq/L 03/21/2019 5:17 EDT [facility] Blood specimen (specimen) BLOOD SPECIMEN / Unknown 03/21/2019 4:43 EDT 03/21/2019 4:47 EDT us Kori Nguyen MD CHEMISTRY & BLOOD GAS ORD ERABLES Final Result Performing Organization Address [facility]/ZIP Co de Phone Number [facility] [address] [place] [address] * (ABNORMAL) COMPLETE BLOOD COUNT (03/21/2019 4:43 EDT) WBC 16.39(H) 4.0 - 10.4 K/cmm 03/21/2019 5:03 [facility] RBC 3.09(L) 4.36 - 5.78 M/cmm 03/21/2019 5:03 [facility] Hemoglobin 9.6(L) 13.8 - 17.3 gm/dl 03/21/2019 5:03 [facility] HCT 27.7(L) 39.5 - 50.2 % 03/21/2019 5:03 [facility] MCV 90 81 - 95 fl 03/21/2019 5:03 [facility] MCH 31.1 27.6 - 33.0 pg 03/21/2019 5:03 [facility] MCHC 34.7 32.8 - 36.4 gm/dl 03/21/2019 5:03 [facility] RDW-CV 15.2(H) <14.2 % 03/21/2019 5:03 [facility] RDW-SD 49.1(H) <46.0 fl 03/21/2019 5:03 [facility] PLT 102(L) 141 - 377 K/cmm 03/21/2019 5:03 [facility] MPV 12.2 9.5 - 12.7 fl 03/21/2019 5:03 [facility] Blood specimen (specimen) BLOOD SPECIMEN / Unknown 03/21/2019 4:43 EDT 03/21/2019 4:47 EDT us Jonatan Martinez MD HEMATOLOGY & PF4 ORDERABLES F inal Result [facility] [address] [place] [address] * (ABNORMAL) D-DIMER (03/21/2019 4:43 EDT) D-Dimer 1,083(H) <230 ng/mL 03/21/2019 5:11 [facility] Comment: CUTOFF VALUE FOR THE EXCLUSION OF DVT and PE: 230 ng/mL D-dimer units Any use of the age-adjusted cutoff value is a post-analytic modification of this FDA-approved test and is considered off-label use of the test result. [facility] laboratory does not have literature to support the validity of an age-adjusted cutoff for our specific assay. Blood specimen (specimen) BLOOD SPECIMEN / Unknown 03/21/2019 4:43 EDT 03/21/2019 4:47 EDT us Flex Flores MD HEMATOLOGY & PF4 ORDERABLES Fin al Result Performing Organization Address City/[facility] Co de Phone Number [facility] [address] [place] [address] * FIBRINOGEN (03/21/2019 4:43 EDT) Fibrinogen 271 171 - 384 mg/dl 03/21/2019 5:10 EDT [facility] Blood specimen (specimen) BLOOD SPECIMEN / Unknown 03/21/2019 4:43 EDT 03/21/2019 4:47 EDT us Flex Flores MD HEMATOLOGY & PF4 ORDERABLES Fin al Result Performing Organization Address [facility] Co de Phone Number [facility] [address] [place] [address] * PTT (03/21/2019 4:43 EDT) PTT 28 26 - 37 secs 03/21/2019 5:11 EDT [facility] Blood specimen (specimen) BLOOD SPECIMEN / Unknown 03/21/2019 4:43 EDT 03/21/2019 4:47 EDT us Flex Flores MD HEMATOLOGY & PF4 ORDERABLES Fin al Result Performing Organization Address [facility] Co de Phone Number [facility] [address] [place] [address] * (ABNORMAL) CALCIUM (03/21/2019 1:15 EDT) Calcium 6.8(L) 8.5 - 10.5 mg/dl 03/21/2019 1:40 EDT [facility] Calculated Calcium 8.3(L) 8.5 - 10.5 mg/dl 03/21/2019 1:40 EDT [facility] Blood specimen (specimen) BLOOD SPECIMEN / Unknown 03/21/2019 1:15 EDT 03/21/2019 1:22 EDT us Kori Nguyen MD CHEMISTRY & BLOOD GAS ORD ERABLES Final Result Performing Organization Address City/[facility] Co de Phone Number [facility] [address] [place] [address] * (ABNORMAL) PHOSPHORUS (03/21/2019 1:15 EDT) Phosphorus 6.1(H) 2.5 - 4.5 mg/dl 03/21/2019 1:40 EDT [facility] Blood specimen (specimen) BLOOD SPECIMEN / Unknown 03/21/2019 1:15 EDT 03/21/2019 1:22 EDT us Kori Nguyen MD CHEMISTRY & BLOOD GAS ORD ERABLES Final Result Performing Organization Address [facility] de Phone Number [facility] [address] [place] [address] * (ABNORMAL) CREATININE (03/21/2019 1:15 EDT) Creatinine 2.21(H) 0.66 - 1.25 mg/dl 03/21/2019 1:40 EDT [facility] GFR, Calculated 30(L) >60 ml/min/1.7 3m2 03/21/2019 1:40 EDT [facility] Comment: eGFR calculated using CKD-EPI equation for non Americans. Multiply eGFR by 1.16 for Americans. Blood specimen (specimen) BLOOD SPECIMEN / Unknown 03/21/2019 1:15 EDT 03/21/2019 1:22 EDT us Kori Nguyen MD CHEMISTRY & BLOOD GAS ORD ERABLES Final Result Performing Organization Address City/[facility] Co de Phone Number [facility] [address] [place] [address] * (ABNORMAL) LACTIC ACID (03/21/2019 1:15 EDT) Lactic Acid 2.3(HH) <2.1 mmol/L 03/21/2019 1:38 EDT [facility] Blood specimen (specimen) BLOOD SPECIMEN / Unknown 03/21/2019 1:15 EDT 03/21/2019 1:20 EDT Flex Flores MD CHEMISTRY & BLOOD GAS ORDERABLE S Final Result Performing Organization Address [facility] de Phone Number [facility] [address] [place] [address] * (ABNORMAL) D-DIMER (03/21/2019 1:15 EDT) [facility] D-Dimer 1,966(H) <230 ng/mL 03/21/2019 2:21 EDT [facility] Comment: CUTOFF VALUE FOR THE EXCLUSION OF DVT and PE: 230 ng/mL D-dimer units Any use of the age-adjusted cutoff value is a post-analytic modification of this FDA-approved test and is considered off-label use of the test result. [facility] laboratory does not have literature to support the validity of an age-adjusted cutoff for our specific assay. Blood specimen (specimen) BLOOD SPECIMEN / Unknown 03/21/2019 1:15 EDT 03/21/2019 1:22 EDT Flex Flores MD HEMATOLOGY & PF4 ORDERABLES Fin al Result Performing Organization Address [facility] Co de Phone Number [facility] [address] [place] [address] * FIBRINOGEN (03/21/2019 1:15 EDT) Pathologist [facility] Fibrinogen 289 171 - 384 mg/dl 03/21/2019 2:20 EDT [facility] Blood specimen (specimen) BLOOD SPECIMEN / Unknown 03/21/2019 1:15 EDT 03/21/2019 1:22 EDT us Flex Flores MD HEMATOLOGY & PF4 ORDERABLES Fin al Result Performing Organization Address City/[facility] Co de Phone Number [facility] [address] [place] [address] * PTT (03/21/2019 1:15 EDT) PTT 27 26 - 37 secs 03/21/2019 2:29 EDT [facility] Blood specimen (specimen) BLOOD SPECIMEN / Unknown 03/21/2019 1:15 EDT 03/21/2019 1:22 EDT Flex Flores MD HEMATOLOGY & PF4 ORDERABLES Fin al Result Performing Organization Address [facility] de Phone Number [facility] [address] [place] [address] * (ABNORMAL) COMPLETE BLOOD COUNT (03/21/2019 1:15 EDT) WBC 19.26(H) 4.0 - 10.4 K/cmm 03/21/2019 1:45 [facility] RBC 3.13(L) 4.36 - 5.78 M/cmm 03/21/2019 1:45 [facility] Hemoglobin 9.9(L) 13.8 - 17.3 gm/dl 03/21/2019 1:45 [facility] HCT 27.9(L) 39.5 - 50.2 % 03/21/2019 1:45 [facility] MCV 89 81 - 95 fl 03/21/2019 1:45 [facility] MCH 31.6 27.6 - 33.0 pg 03/21/2019 1:45 [facility] MCHC 35.5 32.8 - 36.4 gm/dl 03/21/2019 1:45 [facility] RDW-CV 14.9(H) <14.2 % 03/21/2019 1:45 [facility] RDW-SD 48.0(H) <46.0 fl 03/21/2019 1:45 EDT [facility] PLT 114(L) 141 - 377 K/cmm 03/21/2019 1:45 EDT [facility] MPV 12.4 9.5 - 12.7 fl 03/21/2019 1:45 EDT [facility] Blood specimen (specimen) BLOOD SPECIMEN / Unknown 03/21/2019 1:15 EDT 03/21/2019 1:22 EDT us Jonatan Martinez MD HEMATOLOGY & PF4 ORDERABLES F inal Result Performing Organization Address [facility]/ZIP Co de Phone Number [facility] [address] [place] [address] * MAGNESIUM (03/21/2019 1:15 EDT) Magnesium 2.4 1.7 - 2.8 mg/dl 03/21/2019 1:40 EDT [facility] Blood specimen (specimen) BLOOD SPECIMEN / Unknown 03/21/2019 1:15 EDT 03/21/2019 1:22 EDT us Kori Nguyen MD CHEMISTRY & BLOOD GAS ORD ERABLES Final Result Performing Organization Address [facility] Co de Phone Number [facility] [address] [place] [address] * (ABNORMAL) ELECTROLYTES (03/21/2019 1:15 EDT) Sodium 150(H) 136 - 145 mEq/L 03/21/2019 1:40 EDT [facility] Potassium 5.4(H) 3.5 - 5.0 mEq/L 03/21/2019 1:40 EDT [facility] Chloride 117(H) 96 - 110 mEq/L 03/21/2019 1:40 EDT [facility] CO2 28 22 - 32 mEq/L 03/21/2019 1:40 EDT [facility] Blood specimen (specimen) BLOOD SPECIMEN / Unknown 03/21/2019 1:15 EDT 03/21/2019 1:22 EDT Kori Nguyen MD CHEMISTRY & BLOOD GAS ORD ERABLES Final Result Performing Organization Address [facility] Co de Phone Number [facility] [address] [place] [address] * (ABNORMAL) GLUCOSE, GLUCOMETER (03/21/2019 1:14 EDT) Glucose, Fingerstick 165(H) 70 - 100 mg/dl 03/21/2019 1:18 EDT [facility] Clinical Writer ID [id number] 03/21/2019 1:18 EDT [facility] Comment:Test Performed by [facility] BLOOD SPECIMEN / Unknown 03/21/2019 1:14 EDT 03/21/2019 1:18 EDT Leticia Galdamez MD CHEMISTRY & BLOOD GAS ORDERAB LES Final Result Performing Organization Address City/[facility] Co de Phone Number [facility] [address] [place] [id number] * TRANSFUSE RED BLOOD CELLS (03/21/2019 0:29 EDT) Blood specimen (specimen) Flex Flores MD NURSING TREATMENT - BLOOD ADMIN ISTRATION Final Result * TRANSFUSE RED BLOOD CELLS (03/21/2019 0:29 EDT) Blood specimen (specimen) Flex Flores MD NURSING TREATMENT - BLOOD ADMIN ISTRATION Final Result * UPPER ENDOSCOPY PROCEDURE (03/21/2019) Anatomical Region Laterality Modality Endoscopy 03/21/2019 Narrative 03/27/2019 13:59 EDT Procedure Performed EGD Indications for Exam upper GI Bleed Procedure Technique A physical exam was performed. Informed consent was obtained from the patient after explaining all the risks (perforation, bleeding, infection and adverse effects to the medicine), benefits and alternatives to the procedure which the patient appeared to understand and so stated. ??The patient was connected to the monitoring devices and placed in the left lateral position. Continuous oxygen was provided with a nasal cannula and IV medicine administered through a indwelling cannula. After adequate sedation was achieved the gastroscope was inserted under direct vision into the esophagus and then carefully advanced to the first part of duodenum. The first part of duodenum was identified by visual landmarks. The scope was subsequently removed slowly while carefully examining the color, texture, anatomy, and integrity of the mucosa on withdrawal. The patient was subsequently transferred to the recovery area in satisfactory condition. Estimated Blood Loss: None Complications None Medications Patient previously sedated I was in continuous face to face attendance during the administration of moderate sedation services that were monitored by an independent trained observer who had no other duties during the procedure. ??Total sedation time was ?minutes. Findings esophagus: normal Stomach: multiple punctate clean based ulcers 2-5cm in diameter. Cold forcep biopsies taken in antrum and body of stomach to rule out H pylori Duodenum: diffuse clean based ulceration. There appears to be visible vessel that was treating with endoscopic clip. Diagnosis esophagus: normal Stomach: multiple punctate clean based ulcers 2-5cm in diameter. Cold forcep biopsies taken in antrum and body of stomach to rule out H pylori Duodenum: diffuse clean based ulceration. There appears to be visible vessel that was treating with endo clip. Recommendations continue PPI BID Follow biopsy results. The??procedure??was??performed??by??Dr. Rony Cooper M.D. in the presence of Dr. Jeyson Garcia. The attending physician was in the room for the entire procedure. This electronic signature authenticates all electronic and/or handwritten documentation, including orders, generated by the signer during the episode of care contained in this record. 03/27/2019 01:59:55 PM By Jeyson Garcia MD us Jeyson Garcia MD GI PROCEDURE ORDERABLES Fi nal Result * TRANSFUSE RED BLOOD CELLS (03/20/2019 21:53 EDT) Blood specimen (specimen) us Jonatan Martinez MD NURSING TREATMENT - BLOOD ADM INISTRATION Final Result * TRANSFUSE RED BLOOD CELLS (03/20/2019 21:53 EDT) Blood specimen (specimen) us Jonatan Martinez MD NURSING TREATMENT - BLOOD ADM INISTRATION Final Result * SLIDE REQUEST (03/20/2019 21:15 EDT) Note A smear is filed in the Hematology lab 03/20/2019 22:13 EDT [facility] BLOOD SPECIMEN / Unknown 03/20/2019 21:15 EDT 03/20/2019 21:24 EDT us Kori Nguyen MD HEMATOLOGY & PF4 ORDERABL ES Final Result Performing Organization Address City/[facility]/ZIP Co de Phone Number [facility] [address] [place] [address] * (ABNORMAL) LACTIC ACID (03/20/2019 21:15 EDT) Lactic Acid 5.2(HH) <2.1 mmol/L 03/20/2019 21:46 EDT [facility] Blood specimen (specimen) BLOOD SPECIMEN / Unknown 03/20/2019 21:15 EDT 03/20/2019 21:24 EDT us Sirisha Lawson MD CHEMISTRY & BLOOD GAS O RDERABLES Final Result Performing Organization Address City/[facility]/ZIP Co de Phone Number [facility] [address] [place] [address] * (ABNORMAL) COMPLETE BLOOD COUNT (03/20/2019 21:15 EDT) WBC 31.05(H) 4.0 - 10.4 K/cmm 03/20/2019 21:46 EDT [facility] RBC 2.75(L) 4.36 - 5.78 M/cmm 03/20/2019 21:46 EDT [facility] Hemoglobin 8.9(L) 13.8 - 17.3 gm/dl 03/20/2019 21:46 EDT [facility] HCT 24.9(L) 39.5 - 50.2 % 03/20/2019 21:46 EDT [facility] MCV 91 81 - 95 fl 03/20/2019 21:46 EDT [facility] MCH 32.4 27.6 - 33.0 pg 03/20/2019 21:46 T [facility] MCHC 35.7 32.8 - 36.4 gm/dl 03/20/2019 21:46 EDT [facility] RDW-CV 14.9(H) <14.2 % 03/20/2019 21:46 EDT [facility] RDW-SD 49.4(H) <46.0 fl 03/20/2019 21:46 T [facility] PLT 151 141 - 377 K/cmm 03/20/2019 21:46 T [facility] MPV 12.1 9.5 - 12.7 fl 03/20/2019 21:46 EDT [facility] Blood specimen (specimen) BLOOD SPECIMEN / Unknown 03/20/2019 21:15 EDT 03/20/2019 21:24 EDT us Jonatan Martinez MD HEMATOLOGY & PF4 ORDERABLES F inal Result [facility] [address] [place] [address] * MAGNESIUM (03/20/2019 21:15 EDT) Magnesium 2.6 1.7 - 2.8 mg/dl 03/20/2019 21:45 EDT [facility] Blood specimen (specimen) BLOOD SPECIMEN / Unknown 03/20/2019 21:15 EDT 03/20/2019 21:24 EDT us Kori Nguyen MD CHEMISTRY & BLOOD GAS ORD ERABLES Final Result Performing Organization Address [facility]/ZIP Co de Phone Number [facility] [address] [place] [address] * BACTERIAL CULTURE, BLOOD (03/20/2019 20:36 EDT) Result No growth 03/25/2019 7:29 EDT [facility] Blood specimen (specimen) BLOOD SPECIMEN / Unknown 03/20/2019 20:36 EDT 03/20/2019 21:04 EDT Comment:Right~Arm Jonatan Martinez MD MICROBIOLOGY - GENERAL ORDERA BLES Final Result Performing Organization Address [facility] Co de Phone Number [facility] [address] [place] [address] * PREPARE RED BLOOD CELLS (03/20/2019 19:54 EDT) Product Code [id number] [facility] Donor Number [id number] [facility] Unit ABO O [facility] Unit Rh POS [facility] Unit Status TR^Transfuse [facility] Product Expiration Date [id number] [facility] Unit Blood Type Code 5100 [facility] Coding System [id number] [facility] Blood specimen (specimen) 03/20/2019 19:54 EDT Flex Flores MD BLOOD BANK ORDERABLES Final Res ult [facility] [address] [place] [address] * TRANSFUSE RED BLOOD CELLS (03/20/2019 19:53 EDT) Blood specimen (specimen) Jonatan Martinez MD NURSING TREATMENT - BLOOD ADM INISTRATION Final Result * TRANSFUSE PLATELETS (03/20/2019 19:24 EDT) Blood specimen (specimen) us Jonatan Martinez MD NURSING TREATMENT - BLOOD ADM INISTRATION Final Result * TRANSFUSE PLATELETS (03/20/2019 19:24 EDT) Blood specimen (specimen) Jonatan Martinez MD NURSING TREATMENT - BLOOD ADM INISTRATION Final Result * ABO/RH (03/20/2019 17:37 EDT) ABO O [facility] Rh Factor Positive [facility] Blood specimen (specimen) 03/20/2019 17:37 EDT Jonatan Martinez MD BLOOD BANK TESTS Final Result Performing Organization Address City/[facility] Co de Phone Number [facility] [address] [place] [address] * PREPARE PLATELETS (03/20/2019 17:36 EDT) Product Code [id number] [facility] Donor Number [id number] [facility] Unit ABO O [facility] Unit Rh POS [facility] Unit Status TR^Transfuse [facility] Product Expiration Date [id number] [facility] Unit Blood Type Code 5100 [facility] Coding System [id number] [facility] Blood specimen (specimen) 03/20/2019 17:36 EDT Jonatan Martinez MD BLOOD BANK ORDERABLES Final R esult Performing Organization Address City/[facility]/ZIP Co de Phone Number [facility] [address] [place] [address] * PREPARE RED BLOOD CELLS (03/20/2019 17:34 EDT) Product Code [id number] [facility] Donor Number [id number] [facility] Unit ABO O [facility] Unit Rh POS [facility] Unit Status TR^Transfuse [facility] Product Expiration Date [id number] [facility] Unit Blood Type Code 5100 [facility] Coding System [id number] [facility] 03/20/2019 17:3 4 EDT Jonatan Martinez MD BLOOD BANK ORDERABLES Final R esult [facility] [address] [place] [address] * (ABNORMAL) PTT (03/20/2019 17:34 EDT) PTT 109(HH) 26 - 37 secs 03/20/2019 18:13 EDT [facility] BLOOD SPECIMEN / Unknown 03/20/2019 17:34 EDT 03/20/2019 17:42 EDT Leticia Galdamez MD HEMATOLOGY & PF4 ORDERABLES F inal Result Performing Organization Address [facility] Co de Phone Number [facility] [address] [place] [address] * (ABNORMAL) PROTIME (03/20/2019 17:34 EDT) Pro Time 20.2(H) 10.3 - 13.4 secs 03/20/2019 18:10 EDT [facility] I.N.R. 1.7(H) 0.9 - 1.1 Ratio 03/20/2019 18:10 EDT [facility] Comment: Moderate Intensity Coumadin INR = 2.0-3.0 Adjustments in anticoagulant therapy dose should be based upon the INR and NOT the Pro Time. BLOOD SPECIMEN / Unknown 03/20/2019 17:34 EDT 03/20/2019 17:42 EDT Leticia Galdamez MD HEMATOLOGY & PF4 ORDERABLES F inal Result Performing Organization Address [facility]/ZIP Co de Phone Number [facility] [address] [place] [address] * FIBRINOGEN (03/20/2019 17:34 EDT) Fibrinogen 285 171 - 384 mg/dl 03/20/2019 18:10 EDT [facility] BLOOD SPECIMEN / Unknown 03/20/2019 17:34 EDT 03/20/2019 17:42 EDT Leticia Galdamez MD HEMATOLOGY & PF4 ORDERABLES F inal Result Performing Organization Address City/[facility]/ZIP Co de Phone Number [facility] [address] [place] [address] * PREPARE RED BLOOD CELLS (03/20/2019 17:34 EDT) Product Code [id number] [facility] Donor Number [id number] [facility] Unit ABO O [facility] Unit Rh POS [facility] Unit Status TR^Transfuse [facility] Product Expiration Date [id number] [facility] Unit Blood Type Code 5100 [facility] Coding System [id number] [facility] Blood specimen (specimen) 03/20/2019 17:34 EDT Jonatan Martinez MD BLOOD BANK ORDERABLES Final R esult Performing Organization Address [facility] de Phone Number [facility] [address] [place] [address] * TYPE AND SCREEN (03/20/2019 17:18 EDT) Antibody Screen Negative [facility] Comment: Patient is electronic crossmatch eligible. Units available upon request for transfusion. Specimen Expires: 03/23/2019 @ 23:59 [facility] ABO O [facility] Rh Factor Positive [facility] Blood specimen (specimen) 03/20/2019 17:18 EDT Jonatan Martinez MD BLOOD BANK TESTS Final Result Performing Organization Address City/[facility]/ZIP Co de Phone Number [facility] [address] [facility] [place] [address] * (ABNORMAL) GLUCOSE, GLUCOMETER (03/20/2019 16:54 EDT) Glucose, Fingerstick 154(H) 70 - 100 mg/dl 03/20/2019 17:01 EDT [facility] Clinical Writer ID [id number] 03/20/2019 17:01 EDT [facility] Comment:Test Performed by [employer] BLOOD SPECIMEN / Unknown 03/20/2019 16:54 EDT 03/20/2019 17:01 EDT us Leticia Galdamez MD CHEMISTRY & BLOOD GAS ORDERAB LES Final Result [facility] [address] [place] [address] * RAD US DOPPLER LOWER EXTREMITY VENOUS BILATERAL (03/20/2019 16:47 EDT) Anatomical Region Laterality Modality Other 03/20/2019 16:4 7 EDT 03/20/2019 17:24 EDT Narrative 03/20/2019 17:24 EDT RAD US DOPPLER LOWER EXTREMITY VENOUS BILATERAL 03/20/2019 4:47 PM Signs and Symptoms: ?? concern for PE, assessing for DVT Comparison: None. Technique: Static and cine images, including color Doppler and spectral tracings of the deep venous system of bilateral lower extremities were obtained. Findings: There is complete compressibility, normal respiratory phasicity and normal color Doppler flow in the deep veins of the bilateral lower extremities including the common femoral, profunda femoris, proximal great saphenous, femoral, and popliteal veins. Extensive peripheral atherosclerotic vascular disease is present. Impression: No sonographic evidence of DVT in the bilateral lower extremities. I have personally reviewed the images and the above interpretation and agree with the findings. Procedure Note Venu Shea MD, - 03/20/2019 RAD US DOPPLER LOWER EXTREMITY VENOUS BILATERAL 03/20/2019 4:47 PM Signs and Symptoms: concern for PE, assessing for DVT Comparison: None. Technique: Static and cine images, including color Doppler and spectral tracings of the deep venous system of bilateral lower extremities were obtained. Findings: There is complete compressibility, normal respiratory phasicity and normal color Doppler flow in the deep veins of the bilateral lower extremities including the common femoral, profunda femoris, proximal great saphenous, femoral, and popliteal veins. Extensive peripheral atherosclerotic vascular disease is present. Impression: No sonographic evidence of DVT in the bilateral lower extremities. I have personally reviewed the images and the above interpretation and agree with the findings. us Jonatan Martinez MD [facility] US ORDERABLES Final Resul t * (ABNORMAL) COMPLETE BLOOD COUNT (03/20/2019 16:46 EDT) WBC 14.03(H) 4.0 - 10.4 K/cmm 03/20/2019 17:24 [facility] RBC 1.81(L) 4.36 - 5.78 M/cmm 03/20/2019 17:24 [facility] Hemoglobin 5.8(LL) 13.8 - 17.3 gm/dl 03/20/2019 17:24 [facility] HCT 16.9(LL) 39.5 - 50.2 % 03/20/2019 17:24 [facility] MCV 93 81 - 95 fl 03/20/2019 17:24 [facility] MCH 32.0 27.6 - 33.0 pg 03/20/2019 17:24 [facility] MCHC 34.3 32.8 - 36.4 gm/dl 03/20/2019 17:24 [facility] RDW-CV 15.6(H) <14.2 % 03/20/2019 17:24 [facility] RDW-SD 53.9(H) <46.0 fl 03/20/2019 17:24 [facility] PLT 47(L) 141 - 377 K/cmm 03/20/2019 17:24 [facility] MPV 11.8 9.5 - 12.7 fl 03/20/2019 17:24 [facility] Blood specimen (specimen) BLOOD SPECIMEN / Unknown 03/20/2019 16:46 EDT 03/20/2019 17:01 EDT us Jonatan Martinez MD HEMATOLOGY & PF4 ORDERABLES F inal Result Performing Organization Address [facility] Co de Phone Number [facility] [address] [place] [address] * (ABNORMAL) BLOOD GAS, G3 ISTAT (03/20/2019 15:01 EDT) pH, i-STAT 7.29(L) 7.35 - 7.45 03/20/2019 15:08 EDT [facility] pCO2, i-STAT 59(H) 35 - 45 mmHg 03/20/2019 15:08 EDT [facility] pO2, i-STAT 77(L) 80 - 105 mmHg 03/20/2019 15:08 EDT [facility] TCO2, i-STAT 30(H) 23 - 27 mEq/L 03/20/2019 15:08 EDT [facility] O2 Saturation 93(L) 95 - 98 % 03/20/2019 15:08 T [facility] Base Excess, i-STAT 1 03/20/2019 15:08 T [facility] Sample Type ARTERIAL 03/20/2019 15:08 T [facility] certification officer ID [id number] 03/20/2019 15:08 T [facility] Comment: Test Performed by Respiratory For non-arterial reference ranges, please see ISTAT procedure. BLOOD SPECIMEN / Unknown 03/20/2019 15:01 EDT 03/20/2019 15:08 EDT us Leticia Galdamez MD CHEMISTRY & BLOOD GAS ORDERAB LES Final Result Performing Organization Address [facility]/ZIP Co de Phone Number [facility] [address] [place] [address] * (ABNORMAL) BLOOD GAS, G3 ISTAT (03/20/2019 14:56 EDT) pH, i-STAT 7.28(L) 7.35 - 7.45 03/20/2019 15:08 [facility] pCO2, i-STAT 60(H) 35 - 45 mmHg 03/20/2019 15:08 [facility] pO2, i-STAT 74(L) 80 - 105 mmHg 03/20/2019 15:08 [facility] TCO2, i-STAT 30(H) 23 - 27 mEq/L 03/20/2019 15:08 [facility] O2 Saturation 92(L) 95 - 98 % 03/20/2019 15:08 [facility] Base Excess, i-STAT 1 03/20/2019 15:08 [facility] Sample Type ARTERIAL 03/20/2019 15:08 [facility] certification officer ID [id number] 03/20/2019 15:08 [facility] Comment: Test Performed by Respiratory For non-arterial reference ranges, please see ISTAT procedure. BLOOD SPECIMEN / Unknown 03/20/2019 14:56 EDT 03/20/2019 15:08 EDT us Leticia Galdamez MD CHEMISTRY & BLOOD GAS ORDERAB LES Final Result [facility] [address] [place] [address] * (ABNORMAL) ELECTROLYTES (03/20/2019 14:42 EDT) Sodium 153(H) 136 - 145 mEq/L 03/20/2019 15:26 [facility] Potassium 4.8 3.5 - 5.0 mEq/L 03/20/2019 15:26 [facility] Chloride 119(H) 96 - 110 mEq/L 03/20/2019 15:26 T [facility] CO2 30 22 - 32 mEq/L 03/20/2019 15:26 EDT [facility] Blood specimen (specimen) BLOOD SPECIMEN / Unknown 03/20/2019 14:42 EDT 03/20/2019 14:59 EDT us Kori Nguyen MD CHEMISTRY & BLOOD GAS ORD ERABLES Final Result [facility] [address] [place] [address] * MAGNESIUM (03/20/2019 14:42 EDT) Magnesium 2.2 1.7 - 2.8 mg/dl 03/20/2019 15:26 EDT [facility] Blood specimen (specimen) BLOOD SPECIMEN / Unknown 03/20/2019 14:42 EDT 03/20/2019 14:59 EDT us Kori Nguyen MD CHEMISTRY & BLOOD GAS ORD ERABLES Final Result Performing Organization Address City/[facility]/ZIP Co de Phone Number [facility] [address] [place] [address] * PORTABLE CHEST 1 VIEW (03/20/2019 14:15 EDT) Anatomical Region Laterality Modality Other 03/20/2019 14:1 5 EDT 03/20/2019 14:47 EDT Narrative 03/20/2019 14:47 EDT PORTABLE CHEST 1 VIEW ??03/20/2019 2:15 PM Clinical History/Comments: ARDS, pna, increased hypoxia Comparison: Chest CT March 16, 2019 and most recent chest March 17, 2019. Findings: Single portable AP view of the chest. The patient is rotated more toward the left. Lines/tubes: ??The ET tube approaches the mid trachea, unchanged. There is a right IJ central line to the distal SVC, unchanged. Soft tissues and bones: No significant abnormalities. Cardiac and mediastinal contours: Normal. Lungs: There is persisting multifocal airspace filling, more coalescent in the left infrahilar region than the right similar in distribution to 3 days prior, but less coalescent Pleura: Shallow costophrenic angles. Impression: 1. ??Persisting but apparently improving airspace filling since 3 days prior Procedure Note Mitch Fierro MD, MD - 03/20/2019 PORTABLE CHEST 1 VIEW 03/20/2019 2:15 PM Clinical History/Comments: ARDS, pna, increased hypoxia Comparison: Chest CT March 16, 2019 and most recent chest March 17, 2019. Findings: Single portable AP view of the chest. The patient is rotated more toward the left. Lines/tubes: The ET tube approaches the mid trachea, unchanged. There is a right IJ central line to the distal SVC, unchanged. Soft tissues and bones: No significant abnormalities. Cardiac and mediastinal contours: Normal. Lungs: There is persisting multifocal airspace filling, more coalescent in the left infrahilar region than the right similar in distribution to 3 days prior, but less coalescent Pleura: Shallow costophrenic angles. Impression: 1. Persisting but apparently improving airspace filling since 3 days prior us Jocelyn Coto MD IMG DIAGNOSTIC SHELBI GING ORDERABLES Final Result * (ABNORMAL) GLUCOSE, GLUCOMETER (03/20/2019 11:42 EDT) Glucose, Fingerstick 192(H) 70 - 100 mg/dl 03/20/2019 11:46 EDT [facility] Clinical Writer ID [id number] 03/20/2019 11:46 EDT [facility] Comment:Test Performed by [facility] BLOOD SPECIMEN / Unknown 03/20/2019 11:42 EDT 03/20/2019 11:46 EDT us Leticia Galdamez MD CHEMISTRY & BLOOD GAS ORDERAB LES Final Result [facility] [address] [place] [address] * BACTERIAL CULTURE/SMEAR, RESPIRATORY (03/20/2019 11:30 EDT) Gram Smear Result Few Polys 03/20/2019 18:22 EDT [facility] Gram Smear Result Mod Squamous epithelial cells 03/20/2019 18:22 EDT [facility] Gram Smear Result Few Gram positive cocci 03/20/2019 18:22 T [facility] Gram Smear Result Smear suggests contamination with saliva. ??Please submit additional specimen if clinically indicated. 03/20/2019 18:22 EDT [facility] Result See gram smear results. 03/20/2019 18:22 EDT [facility] Result Credit Issued 03/20/2019 18:22 EDT [facility] Specimen of unknown material (specimen) SPUTUM / Unknown 03/20/2019 11:30 EDT 03/20/2019 14:57 EDT Comment:ETT Aspirate~Leuken' s specimen us Leticia Galdamez MD MICROBIOLOGY - GENERAL ORDERA BLES Final Result Performing Organization Address [facility] Co de Phone Number [facility] [address] [place] [address] * INPATIENT ADD-ON (03/20/2019 10:25 EDT) Tests to be added MAGNESIUM 03/20/2019 10:21 EDT [facility] Number for problems [id number] 03/20/2019 10:41 EDT [facility] Accession number [id number] 03/20/2019 10:41 EDT [facility] TOPOGRAPHY UNKNOWN / Unknown 03/20/2019 10:25 EDT 03/20/2019 10:40 EDT us Kori Nguyen MD HEMATOLOGY & PF4 ORDERABL ES Final Result Performing Organization Address [facility] de Phone Number [facility] [address] [place] [address] * (ABNORMAL) ELECTROLYTES (03/20/2019 10:06 EDT) Sodium 155(H) 136 - 145 mEq/L 03/20/2019 10:39 EDT [facility] Potassium 4.1 3.5 - 5.0 mEq/L 03/20/2019 11:04 EDT [facility] [facility] Chloride 120(H) 96 - 110 mEq/L 03/20/2019 10:39 EDT [facility] CO2 28 22 - 32 mEq/L 03/20/2019 10:39 EDT [facility] Blood specimen (specimen) BLOOD SPECIMEN / Unknown 03/20/2019 10:06 EDT 03/20/2019 10:14 EDT us Kori Nguyen MD CHEMISTRY & BLOOD GAS ORD ERABLES Final Result Performing Organization Address [facility] Co de Phone Number [facility] [address] [place] [address] * (ABNORMAL) GLUCOSE, GLUCOMETER (03/20/2019 6:39 EDT) Glucose, Fingerstick 247(H) 70 - 100 mg/dl 03/20/2019 6:40 EDT [facility] Clinical Writer ID [id number] 03/20/2019 6:40 EDT [facility] Comment:Test Performed by [employer] BLOOD SPECIMEN / Unknown 03/20/2019 6:39 EDT 03/20/2019 6:40 EDT us Leticia Galdamez MD CHEMISTRY & BLOOD GAS ORDERAB LES Final Result Performing Organization Address [facility] Co de Phone Number [facility] [address] [place] [address] * MAGNESIUM (03/20/2019 4:30 EDT) Magnesium 2.5 1.7 - 2.8 mg/dl 03/20/2019 11:52 EDT [facility] BLOOD SPECIMEN / Unknown 03/20/2019 4:30 EDT 03/20/2019 4:44 EDT us Kori Nguyen MD CHEMISTRY & BLOOD GAS ORD ERABLES Final Result Performing Organization Address [facility] Co de Phone Number [facility] [address] [place] [address] * (ABNORMAL) CALCIUM (03/20/2019 4:30 EDT) Calcium 7.0(L) 8.5 - 10.5 mg/dl 03/20/2019 5:17 EDT [facility] Calculated Calcium 8.4(L) 8.5 - 10.5 mg/dl 03/20/2019 5:17 EDT [facility] Blood specimen (specimen) BLOOD SPECIMEN / Unknown 03/20/2019 4:30 EDT 03/20/2019 4:44 EDT us Kori Nguyen MD CHEMISTRY & BLOOD GAS ORD ERABLES Final Result Performing Organization Address [facility]/ZIP Co de Phone Number [facility] [address] [place] [address] * PHOSPHORUS (03/20/2019 4:30 EDT) Phosphorus 4.0 2.5 - 4.5 mg/dl 03/20/2019 5:17 EDT [facility] Blood specimen (specimen) BLOOD SPECIMEN / Unknown 03/20/2019 4:30 EDT 03/20/2019 4:44 EDT us Kori Nguyen MD CHEMISTRY & BLOOD GAS ORD ERABLES Final Result Performing Organization Address [facility] de Phone Number [facility] [address] [place] [address] * (ABNORMAL) COMPLETE BLOOD COUNT AND DIFFERENTIAL (03/20/2019 4:30 EDT) WBC 9.30 4.0 - 10.4 K/cmm 03/20/2019 5:02 [facility] RBC 3.29(L) 4.36 - 5.78 M/cmm 03/20/2019 5:02 [facility] Hemoglobin 10.7(L) 13.8 - 17.3 gm/dl 03/20/2019 5:02 [facility] HCT 29.5(L) 39.5 - 50.2 % 03/20/2019 5:02 [facility] MCV 90 81 - 95 fl 03/20/2019 5:02 [facility] MCH 32.5 27.6 - 33.0 pg 03/20/2019 5:02 [facility] MCHC 36.3 32.8 - 36.4 gm/dl 03/20/2019 5:02 [facility] RDW-CV 14.9(H) <14.2 % 03/20/2019 5:02 [facility] RDW-SD 49.3(H) <46.0 fl 03/20/2019 5:02 [facility] PLT 64(L) 141 - 377 K/cmm 03/20/2019 5:02 [facility] MPV 12.7 9.5 - 12.7 fl 03/20/2019 5:02 [facility] Neutrophils 95.7 % 03/20/2019 7:40 [facility] Lymphocytes 2.6 % 03/20/2019 7:40 [facility] Monocytes 1.7 % 03/20/2019 7:40 [facility] ABS Neutrophils 8.90(H) 2.20 - 8.85 K/cm 03/20/2019 7:40 [facility] ABS Lymphs 0.24(L) 1.09 - 3.30 K/cmm 03/20/2019 7:40 [facility] ABS Monocytes 0.16 0.1 - 0.8 K/cmm 03/20/2019 7:40 [facility] Target Cells 2+ 03/20/2019 7:40 [facility] Toxic Granulation Present 03/20/2019 7:40 [facility] Large Platelets Present 9 7:40 [facility] Type of Diff: Manual 03/20/2019 7:40 [facility] Blood specimen (specimen) BLOOD SPECIMEN / Unknown 03/20/2019 4:30 EDT 03/20/2019 4:44 EDT us Leticia Galdamez MD PACKAGES & DNA PROBE ORDERABL ES Final Result [facility] [address] [place] [address] * (ABNORMAL) ELECTROLYTES (03/20/2019 4:30 EDT) Sodium 153(H) 136 - 145 mEq/L 03/20/2019 5:17 EDT [facility] Potassium 3.5 3.5 - 5.0 mEq/L 03/20/2019 5:17 EDT [facility] Chloride 118(H) 96 - 110 mEq/L 03/20/2019 5:17 T [facility] CO2 26 22 - 32 mEq/L 03/20/2019 5:17 EDT [facility] Blood specimen (specimen) BLOOD SPECIMEN / Unknown 03/20/2019 4:30 EDT 03/20/2019 4:44 EDT us Kori Nguyen MD CHEMISTRY & BLOOD GAS ORD ERABLES Final Result Performing Organization Address [facility] Co de Phone Number [facility] [address] [place] [address] * (ABNORMAL) CREATININE (03/20/2019 4:30 EDT) Creatinine 2.62(H) 0.66 - 1.25 mg/dl 03/20/2019 5:17 T [facility] GFR, Calculated 25(L) >60 ml/min/1.7 3m2 03/20/2019 5:17 T [facility] Comment: eGFR calculated using CKD-EPI equation for non Americans. Multiply eGFR by 1.16 for Americans. Blood specimen (specimen) BLOOD SPECIMEN / Unknown 03/20/2019 4:30 EDT 03/20/2019 4:44 EDT us Kori Nguyen MD CHEMISTRY & BLOOD GAS ORD ERABLES Final Result [facility] [address] [place] [address] * MRSA PCR (03/20/2019 4:25 EDT) Result Methicillin susceptible Staphylococcus aureus (MSSA) DNA detected by PCR. 03/20/2019 14:28 EDT [facility] Specimen of unknown material (specimen) NASAL ROUTE / Unknown 03/20/2019 4:25 EDT 03/20/2019 8:02 EDT us Kori Nguyen MD MICROBIOLOGY - GENERAL OR DERABLES Final Result Performing Organization Address City/[facility]/ZIP Co de Phone Number [facility] [address] [place] [address] * (ABNORMAL) GLUCOSE, GLUCOMETER (03/19/2019 23:38 EDT) Glucose, Fingerstick 234(H) 70 - 100 mg/dl 03/19/2019 23:39 EDT [facility] Clinical Writer ID [id number] 03/19/2019 23:39 EDT [facility] Comment:Test Performed by [employer] BLOOD SPECIMEN / Unknown 03/19/2019 23:38 EDT 03/19/2019 23:39 EDT us Leticia Galdamez MD CHEMISTRY & BLOOD GAS ORDERAB LES Final Result Performing Organization Address [facility] Co de Phone Number [facility] [address] [place] [address] * (ABNORMAL) ELECTROLYTES (03/19/2019 21:10 EDT) Sodium 152(H) 136 - 145 mEq/L 03/19/2019 21:57 EDT [facility] Potassium 3.1(L) 3.5 - 5.0 mEq/L 03/19/2019 21:57 EDT [facility] Chloride 115(H) 96 - 110 mEq/L 03/19/2019 21:57 EDT [facility] CO2 27 22 - 32 mEq/L 03/19/2019 21:57 EDT [facility] Blood specimen (specimen) BLOOD SPECIMEN / Unknown 03/19/2019 21:10 EDT 03/19/2019 21:21 EDT us Kori Nguyen MD CHEMISTRY & BLOOD GAS ORD ERABLES Final Result Performing Organization Address City/[facility]/ZIP Co de Phone Number [facility] [address] [place] [address] * (ABNORMAL) GLUCOSE, GLUCOMETER (03/19/2019 17:23 EDT) Glucose, Fingerstick 224(H) 70 - 100 mg/dl 03/19/2019 17:23 EDT [facility] Clinical Writer ID [id number] 03/19/2019 17:23 EDT [facility] Comment:Test Performed by [facility] BLOOD SPECIMEN / Unknown 03/19/2019 17:23 EDT 03/19/2019 17:24 EDT us Leticia Galdamez MD CHEMISTRY & BLOOD GAS ORDERAB LES Final Result Performing Organization Address City/[facility]/ZIP Co de Phone Number [facility] [address] [place] [address] * (ABNORMAL) CALCIUM (03/19/2019 14:24 EDT) Calcium 6.3(LL) 8.5 - 10.5 mg/dl 03/19/2019 15:26 EDT [facility] Calculated Calcium 7.7(L) 8.5 - 10.5 mg/dl 03/19/2019 15:26 EDT [facility] Blood specimen (specimen) BLOOD SPECIMEN / Unknown 03/19/2019 14:24 EDT 03/19/2019 14:28 EDT us Kori Nguyen MD CHEMISTRY & BLOOD GAS ORD ERABLES Final Result [facility] [address] [place] [address] * (ABNORMAL) PHOSPHORUS (03/19/2019 14:24 EDT) Phosphorus 7.4(H) 2.5 - 4.5 mg/dl 03/19/2019 15:26 EDT [facility] Blood specimen (specimen) BLOOD SPECIMEN / Unknown 03/19/2019 14:24 EDT 03/19/2019 14:28 EDT us Kori Nguyen MD CHEMISTRY & BLOOD GAS ORD ERABLES Final Result [facility] [address] [place] [address] * MAGNESIUM (03/19/2019 14:24 EDT) Magnesium 2.5 1.7 - 2.8 mg/dl 03/19/2019 15:26 EDT [facility] Blood specimen (specimen) BLOOD SPECIMEN / Unknown 03/19/2019 14:24 EDT 03/19/2019 14:28 EDT us Kori Nguyen MD CHEMISTRY & BLOOD GAS ORD ERABLES Final Result Performing Organization Address [facility] Co de Phone Number [facility] [address] [place] [address] * (ABNORMAL) ELECTROLYTES (03/19/2019 14:24 EDT) Sodium 151(H) 136 - 145 mEq/L 03/19/2019 15:26 EDT [facility] Potassium 2.7(LL) 3.5 - 5.0 mEq/L 03/19/2019 15:26 EDT [facility] Chloride 111(H) 96 - 110 mEq/L 03/19/2019 15:26 EDT [facility] CO2 28 22 - 32 mEq/L 03/19/2019 15:26 EDT [facility] Blood specimen (specimen) BLOOD SPECIMEN / Unknown 03/19/2019 14:24 EDT 03/19/2019 14:28 EDT us Kori Nguyen MD CHEMISTRY & BLOOD GAS ORD ERABLES Final Result Performing Organization Address City/[facility]/ZIP Co de Phone Number [facility] [address] [place] [address] * (ABNORMAL) GLUCOSE, GLUCOMETER (03/19/2019 11:43 EDT) Glucose, Fingerstick 205(H) 70 - 100 mg/dl 03/19/2019 11:52 EDT [facility] Clinical Writer ID [id number] 03/19/2019 11:52 EDT [facility] Comment:Test Performed by [facility] BLOOD SPECIMEN / Unknown 03/19/2019 11:43 EDT 03/19/2019 11:52 EDT us Leticia Galdamez MD CHEMISTRY & BLOOD GAS ORDERAB LES Final Result [facility] [address] [place] [address] * (ABNORMAL) UA, CHEMICAL AND SEDIMENT ANALYSIS (DIPSTICK AND MICROSCOPIC) (03/19/2019 9:56 EDT) Color, UA Yellow 03/19/2019 10:53 EDT [facility] Clarity, UA Clear 03/19/2019 10:53 [facility] Glucose, UA Neg Neg 03/19/2019 10:53 [facility] Bilirubin, UA Neg Neg 03/19/2019 10:53 T [facility] Ketones, UA Neg Neg 03/19/2019 10:53 [facility] Refractometer SG,Urine 1.010 1.001 - 1.035 03/19/2019 10:53 T [facility] Blood, UA Neg Neg 03/19/2019 10:53 [facility] pH, UA 5.0 4.6 - 8.0 03/19/2019 10:53 [facility] Protein, UA Neg Neg 03/19/2019 10:53 T [facility] Urobilinogen, UA Normal Normal E.U./dl 03/19/2019 10:53 [facility] Nitrite, UA Neg Neg 03/19/2019 10:53 [facility] Leuk Esterase Neg Neg 03/19/2019 10:53 [facility] UA Method Used 03/19/2019 8:14 [facility] Comment: Testing performed using [employer]. Urine RBC Count Automated 3 to 10(A) 0 to 2 /HPF 03/19/2019 10:53 EDT [facility] Urine WBC Count Automated 0 to 3 0 to 3 /HPF 03/19/2019 10:53 EDT [facility] Urine Squamous Epithelial Cell Count, Automated None seen None seen /LPF 03/19/2019 10:53 EDT [facility] Urine Hyaline Casts, Automated < or = 10 < or = 10 /LPF 03/19/2019 10:53 EDT [facility] Urine Bacteria Count, Automated None seen None seen 03/19/2019 10:53 EDT [facility] UA Comment Sediment results 03/19/2019 10:53 EDT [facility] Comment: are unreliable on urines unrefrig >2hrs or refrig >8hrs. Urine specimen (specimen) URINE / Unknown 03/19/2019 9:56 EDT 03/19/2019 10:25 EDT us Kori Nguyen MD URINALYSIS ORDERABLES Fin al Result Performing Organization Address City/[facility]/ZIP Co de Phone Number [facility] [address] [place] [address] * BACTERIAL CULTURE, URINE (03/19/2019 9:56 EDT) Result No growth 03/20/2019 9:14 EDT [facility] Urine specimen (specimen) URINE / Unknown 03/19/2019 9:56 EDT 03/19/2019 10:25 EDT us Kori Nguyen MD MICROBIOLOGY - GENERAL OR DERABLES Final Result Performing Organization Address [facility]/ZIP Co de Phone Number [facility] [address] [place] [address] * INPATIENT ADD-ON (03/19/2019 9:45 EDT) Tests to be added MAGNESIUM 03/19/2019 9:42 EDT [facility] Number for problems [id number] 03/19/2019 9:57 EDT [facility] Accession number [id number] 03/19/2019 9:57 EDT [facility] TOPOGRAPHY UNKNOWN / Unknown 03/19/2019 9:45 EDT 03/19/2019 9:57 EDT us Domenica High MD HEMATOLOGY & PF4 ORDERABLES Fin al Result Performing Organization Address City/[facility] Co de Phone Number [facility] [address] [place] [address] * BACTERIAL CULTURE, BLOOD (03/19/2019 9:44 EDT) Result No growth 03/25/2019 7:29 EDT [facility] Blood specimen (specimen) BLOOD SPECIMEN / Unknown 03/19/2019 9:44 EDT 03/19/2019 10:03 EDT Comment:Left~Hand~AEROBIC BL OOD CULTURE BOTTLE~Total volume of blood collected:~8 ml~Volume of blood collected may not be adequate for detection of bacteremia/septicemia. us Kori Nguyen MD MICROBIOLOGY - GENERAL OR DERABLES Final Result Performing Organization Address [facility] Co de Phone Number [facility] [address] [place] [id number] * BACTERIAL CULTURE, BLOOD (03/19/2019 9:44 EDT) Result No growth 03/25/2019 7:29 EDT [facility] Blood specimen (specimen) BLOOD SPECIMEN / Unknown 03/19/2019 9:44 EDT 03/19/2019 10:01 EDT Comment:Right~Hand~Total vol ume of blood collected:~20 ml us Kori Nguyen MD MICROBIOLOGY - GENERAL OR DERABLES Final Result Performing Organization Address City/[facility]/ZIP Co de Phone Number [facility] [address] [place] [address] * INPATIENT ADD-ON (03/19/2019 8:30 EDT) Tests to be added BUN 03/19/2019 8:28 EDT [facility] Number for problems [id number] 03/19/2019 8:56 EDT [facility] Accession number [id number] 03/19/2019 8:56 EDT [facility] TOPOGRAPHY UNKNOWN / Unknown 03/19/2019 8:30 EDT 03/19/2019 8:56 EDT us Kori Nguyen MD HEMATOLOGY & PF4 ORDERABL ES Final Result Performing Organization Address [facility]/ZIP Co de Phone Number [facility] [address] [place] [address] * (ABNORMAL) GLUCOSE, GLUCOMETER (03/19/2019 5:23 EDT) Glucose, Fingerstick 180(H) 70 - 100 mg/dl 03/19/2019 5:24 EDT [facility] Clinical Writer ID [id number] 03/19/2019 5:24 EDT [facility] Comment:Test Performed by [employer] BLOOD SPECIMEN / Unknown 03/19/2019 5:23 EDT 03/19/2019 5:24 EDT us Leticia Galdamez MD CHEMISTRY & BLOOD GAS ORDERAB LES Final Result Performing Organization Address [facility] Co de Phone Number [facility] [address] [place] [address] * MAGNESIUM (03/19/2019 3:21 EDT) Magnesium 2.5 1.7 - 2.8 mg/dl 03/19/2019 10:13 EDT [facility] Comment:Add on order BLOOD SPECIMEN / Unknown 03/19/2019 3:21 EDT 03/19/2019 4:00 EDT us Kori Nguyen MD CHEMISTRY & BLOOD GAS ORD ERABLES Final Result Performing Organization Address City/[facility]/ZIP Co de Phone Number [facility] [address] [place] [address] * (ABNORMAL) BUN (03/19/2019 3:21 EDT) BUN 153(H) 10 - 26 mg/dl 03/19/2019 10:13 [facility] Comment:Add on order BLOOD SPECIMEN / Unknown 03/19/2019 3:21 EDT 03/19/2019 4:00 EDT us Kori Nguyen MD CHEMISTRY & BLOOD GAS ORD ERABLES Final Result [facility] [address] [place] [address] * (ABNORMAL) COMPLETE BLOOD COUNT AND DIFFERENTIAL (03/19/2019 3:21 EDT) WBC 8.43 4.0 - 10.4 K/cmm 03/19/2019 4:14 [facility] RBC 3.19(L) 4.36 - 5.78 M/cmm 03/19/2019 4:14 [facility] Hemoglobin 10.2(L) 13.8 - 17.3 gm/dl 03/19/2019 4:14 [facility] HCT 28.5(L) 39.5 - 50.2 % 03/19/2019 4:14 [facility] MCV 89 81 - 95 fl 03/19/2019 4:14 [facility] MCH 32.0 27.6 - 33.0 pg 03/19/2019 4:14 [facility] MCHC 35.8 32.8 - 36.4 gm/dl 03/19/2019 4:14 [facility] RDW-CV 14.6(H) <14.2 % 03/19/2019 4:14 [facility] RDW-SD 47.6(H) <46.0 fl 03/19/2019 4:14 [facility] PLT 66(L) 141 - 377 K/cmm 03/19/2019 4:14 [facility] MPV 11.7 9.5 - 12.7 fl 03/19/2019 4:14 [facility] % Neutrophils 93.5 % 03/19/2019 4:14 [facility] % Lymphocytes 3.2 % 03/19/2019 4:14 [facility] % Monocytes 2.5 % 03/19/2019 4:14 [facility] % Eosinophils 0.0 % 03/19/2019 4:14 [facility] % Basophils 0.1 % 03/19/2019 4:14 [facility] % Immature Grans 0.7 % 03/19/2019 4:14 [facility] ABS Neutrophils 7.88 2.20 - 8.85 K/cmm 03/19/2019 4:14 [facility] ABS Lymphs 0.27(L) 1.09 - 3.30 K/cmm 03/19/2019 4:14 [facility] ABS Monocytes 0.21 0.1 - 0.8 K/cmm 03/19/2019 4:14 [facility] ABS Eosinophils 0.00(L) 0.03 - 0.61 K/cmm 03/19/2019 4:14 [facility] ABS Basophils 0.01 0.01 - 0.11 K/cmm 03/19/2019 4:14 [facility] ABS Immature Grans 0.06 0 - 0.06 K/cmm 03/19/2019 4:14 [facility] Type of Diff: Automated 03/19/2019 4:14 [facility] Blood specimen (specimen) BLOOD SPECIMEN / Unknown 03/19/2019 3:21 EDT 03/19/2019 4:00 EDT us Leticia Galdamez MD PACKAGES & DNA PROBE ORDERABL ES Final Result [facility] [address] [place] [address] * (ABNORMAL) ELECTROLYTES (03/19/2019 3:21 EDT) Sodium 148(H) 136 - 145 mEq/L 03/19/2019 4:39 EDT [facility] Potassium 3.1(L) 3.5 - 5.0 mEq/L 03/19/2019 4:39 EDT [facility] Chloride 109 96 - 110 mEq/L 03/19/2019 4:39 EDT [facility] CO2 26 22 - 32 mEq/L 03/19/2019 4:39 EDT [facility] Blood specimen (specimen) BLOOD SPECIMEN / Unknown 03/19/2019 3:21 EDT 03/19/2019 4:00 EDT us Kori Nguyen MD CHEMISTRY & BLOOD GAS ORD ERABLES Final Result Performing Organization Address [facility] Co de Phone Number [facility] [address] [place] [address] * (ABNORMAL) CREATININE (03/19/2019 3:21 EDT) Creatinine 3.49(H) 0.66 - 1.25 mg/dl 03/19/2019 4:39 EDT [facility] GFR, Calculated 17(L) >60 ml/min/1.7 3m2 03/19/2019 4:39 T [facility] Comment: eGFR calculated using CKD-EPI equation for non Americans. Multiply eGFR by 1.16 for Americans. Blood specimen (specimen) BLOOD SPECIMEN / Unknown 03/19/2019 3:21 EDT 03/19/2019 4:00 EDT us Kori Nguyen MD CHEMISTRY & BLOOD GAS ORD ERABLES Final Result Performing Organization Address City/[facility]/ZIP Co de Phone Number [facility] [address] [place] [address] * PROCALCITONIN, INFECTIOUS DISEASE USE ONLY (03/19/2019 3:21 EDT) Procalcitonin, Infectious Disease Use Only 4.74 ng/ml 03/19/2019 9:09 EDT [facility] Comment: Procalcitonin levels <0.5 ng/ml represent a low risk of severe sepsis and/or septic shock. Blood specimen (specimen) BLOOD SPECIMEN / Unknown 03/19/2019 3:21 EDT 03/19/2019 4:00 EDT us Kori Nguyen MD CHEMISTRY & BLOOD GAS ORD ERABLES Final Result Performing Organization Address [facility] Co de Phone Number [facility] [address] [place] [address] * (ABNORMAL) GLUCOSE, GLUCOMETER (03/19/2019 0:46 EDT) Glucose, Fingerstick 189(H) 70 - 100 mg/dl 03/19/2019 0:47 EDT [facility] Clinical Writer ID [id number] 03/19/2019 0:47 EDT [facility] Comment:Test Performed by [employer] BLOOD SPECIMEN / Unknown 03/19/2019 0:46 EDT 03/19/2019 0:47 EDT us Leticia Galdamez MD CHEMISTRY & BLOOD GAS ORDERAB LES Final Result Performing Organization Address [facility] Co de Phone Number [facility] [address] [place] [address] * (ABNORMAL) GLUCOSE, GLUCOMETER (03/18/2019 17:54 EDT) Glucose, Fingerstick 199(H) 70 - 100 mg/dl 03/18/2019 17:58 EDT [facility] Clinical Writer ID [id number] 03/18/2019 17:58 EDT [facility] Comment:Test Performed by [employer] BLOOD SPECIMEN / Unknown 03/18/2019 17:54 EDT 03/18/2019 17:58 EDT us Leticia Galdamez MD CHEMISTRY & BLOOD GAS ORDERAB LES Final Result Performing Organization Address [facility] Co de Phone Number [facility] [address] [place] [address] * (ABNORMAL) GLUCOSE, GLUCOMETER (03/18/2019 11:46 EDT) Glucose, Fingerstick 216(H) 70 - 100 mg/dl 03/18/2019 11:50 EDT [facility] Clinical Writer ID [id number] 03/18/2019 11:50 EDT [facility] Comment:Test Performed by Nu ing Services BLOOD SPECIMEN / Unknown 03/18/2019 11:46 EDT 03/18/2019 11:50 EDT Leticia Galdamez MD CHEMISTRY & BLOOD GAS ORDERAB LES Final Result Performing Organization Address City/[facility]/ZIP Co de Phone Number [facility] [address] [place] [address] * INPATIENT ADD-ON (03/18/2019 9:35 EDT) Tests to be added MAGNESIUM 03/18/2019 9:33 EDT [facility] Number for problems [id number] 03/18/2019 9:46 EDT [facility] Accession number [id number] 03/18/2019 9:46 EDT [facility] TOPOGRAPHY UNKNOWN / Unknown 03/18/2019 9:35 EDT 03/18/2019 9:46 EDT Leticia Galdamez MD HEMATOLOGY & PF4 ORDERABLES F inal Result Performing Organization Address City/[facility]/ZIP Co de Phone Number [facility] [address] [place] [address] * INPATIENT ADD-ON (03/18/2019 7:40 EDT) Tests to be added PHOSPHOROUS 03/18/2019 7:36 EDT [facility] Number for problems [id number] 03/18/2019 7:39 EDT [facility] Accession number [id number] 03/18/2019 7:39 EDT [facility] TOPOGRAPHY UNKNOWN / Unknown 03/18/2019 7:40 EDT 03/18/2019 7:41 EDT Leticia Galdamez MD HEMATOLOGY & PF4 ORDERABLES F inal Result Performing Organization Address City/[facility]/ZIP Co de Phone Number [facility] [address] [place] [address] * (ABNORMAL) GLUCOSE, GLUCOMETER (03/18/2019 5:58 EDT) Glucose, Fingerstick 173(H) 70 - 100 mg/dl 03/18/2019 6:03 EDT [facility] Clinical Writer ID [id number] 03/18/2019 6:03 EDT [facility] Comment:Test Performed by [facility] Services BLOOD SPECIMEN / Unknown 03/18/2019 5:58 EDT 03/18/2019 6:03 EDT us Leticia Galadmez MD CHEMISTRY & BLOOD GAS ORDERAB LES Final Result Performing Organization Address [facility] Co de Phone Number [facility] [address] [place] [address] * MAGNESIUM (03/18/2019 2:54 EDT) Magnesium 2.6 1.7 - 2.8 mg/dl 03/18/2019 10:15 EDT [facility] BLOOD SPECIMEN / Unknown 03/18/2019 2:54 EDT 03/18/2019 2:57 EDT us Kori Nguyen MD CHEMISTRY & BLOOD GAS ORD ERABLES Final Result Performing Organization Address City/[facility]/ZIP Co de Phone Number [facility] [address] [place] [address] * (ABNORMAL) PHOSPHORUS (03/18/2019 2:54 EDT) Phosphorus 10.5(H) 2.5 - 4.5 mg/dl 03/18/2019 8:10 EDT [facility] BLOOD SPECIMEN / Unknown 03/18/2019 2:54 EDT 03/18/2019 2:57 EDT us Kori Nguyen MD CHEMISTRY & BLOOD GAS ORD ERABLES Final Result Performing Organization Address City/[facility]/ZIP Co de Phone Number [facility] [address] [place] [address] * SMEAR REVIEW (03/18/2019 2:54 EDT) Smear scan only: Slide was examined by a technologist to verify the WBC and/or platelet count. 03/18/2019 3:48 EDT [facility] BLOOD SPECIMEN / Unknown 03/18/2019 2:54 EDT 03/18/2019 2:57 EDT us Kori Nguyen MD HEMATOLOGY & PF4 ORDERABL ES Final Result Performing Organization Address [facility] Co de Phone Number [facility] [address] [place] [address] * (ABNORMAL) COMPLETE BLOOD COUNT AND DIFFERENTIAL (03/18/2019 2:54 EDT) WBC 12.27(H) 4.0 - 10.4 K/cmm 03/18/2019 3:47 [facility] RBC 3.67(L) 4.36 - 5.78 M/cmm 03/18/2019 3:47 [facility] Hemoglobin 11.9(L) 13.8 - 17.3 gm/dl 03/18/2019 3:47 [facility] HCT 33.0(L) 39.5 - 50.2 % 03/18/2019 3:47 [facility] MCV 90 81 - 95 fl 03/18/2019 3:47 [facility] MCH 32.4 27.6 - 33.0 pg 03/18/2019 3:47 [facility] MCHC 36.1 32.8 - 36.4 gm/dl 03/18/2019 3:47 [facility] RDW-CV 14.5(H) <14.2 % 03/18/2019 3:47 [facility] RDW-SD 47.9(H) <46.0 fl 03/18/2019 3:47 [facility] PLT 73(L) 141 - 377 K/cmm 03/18/2019 3:47 [facility] MPV 12.7 9.5 - 12.7 fl 03/18/2019 3:47 [facility] % Neutrophils 93.2 % 03/18/2019 3:47 [facility] % Lymphocytes 2.9 % 03/18/2019 3:47 [facility] % Monocytes 2.6 % 03/18/2019 3:47 [facility] % Eosinophils 0.0 % 03/18/2019 3:47 [facility] % Basophils 0.2 % 03/18/2019 3:47 [facility] % Immature Grans 1.1 % 03/18/2019 3:47 [facility] ABS Neutrophils 11.44(H) 2.20 - 8.85 K/cmm 03/18/2019 3:47 [facility] ABS Lymphs 0.35(L) 1.09 - 3.30 K/cmm 03/18/2019 3:47 [facility] ABS Monocytes 0.32 0.1 - 0.8 K/cmm 03/18/2019 3:47 [facility] ABS Eosinophils 0.00(L) 0.03 - 0.61 K/cmm 03/18/2019 3:47 [facility] ABS Basophils 0.03 0.01 - 0.11 K/cmm 03/18/2019 3:47 [facility] ABS Immature Grans 0.13(H) 0 - 0.06 K/cmm 03/18/2019 3:47 [facility] Type of Diff: Automated 03/18/2019 3:47 [facility] Blood specimen (specimen) BLOOD SPECIMEN / Unknown 03/18/2019 2:54 EDT 03/18/2019 2:57 EDT us Leticia Galdamez MD PACKAGES & DNA PROBE ORDERABL ES Final Result [facility] [address] [place] [address] * (ABNORMAL) ELECTROLYTES (03/18/2019 2:54 EDT) Sodium 140 136 - 145 mEq/L 03/18/2019 3:31 EDT [facility] Potassium 3.8 3.5 - 5.0 mEq/L 03/18/2019 3:31 EDT [facility] Chloride 106 96 - 110 mEq/L 03/18/2019 3:31 EDT [facility] CO2 20(L) 22 - 32 mEq/L 03/18/2019 3:31 EDT [facility] Blood specimen (specimen) BLOOD SPECIMEN / Unknown 03/18/2019 2:54 EDT 03/18/2019 2:57 EDT us Kori Nguyen MD CHEMISTRY & BLOOD GAS ORD ERABLES Final Result Performing Organization Address [facility] Co de Phone Number [facility] [address] [place] [address] * (ABNORMAL) CREATININE (03/18/2019 2:54 EDT) Creatinine 3.18(H) 0.66 - 1.25 mg/dl 03/18/2019 3:31 EDT [facility] GFR, Calculated 19(L) >60 ml/min/1.7 3m2 03/18/2019 3:31 EDT [facility] Comment: eGFR calculated using CKD-EPI equation for non Americans. Multiply eGFR by 1.16 for Americans. Blood specimen (specimen) BLOOD SPECIMEN / Unknown 03/18/2019 2:54 EDT 03/18/2019 2:57 EDT us Kori Nguyen MD CHEMISTRY & BLOOD GAS ORD ERABLES Final Result Performing Organization Address City/[facility]/ZIP Co de Phone Number [facility] [address] [place] [address] * (ABNORMAL) FERRITIN (03/18/2019 2:54 EDT) Pathologist [facility] Ferritin 2,643(H) 22 - 322 ng/ml 03/19/2019 14:30 EDT [facility] Blood specimen (specimen) BLOOD SPECIMEN / Unknown 03/18/2019 2:54 EDT 03/18/2019 2:57 EDT us Leticia Galdamez MD CHEMISTRY & BLOOD GAS ORDERAB LES Final Result Performing Organization Address [facility] Co de Phone Number [facility] [address] [place] [address] * PROCALCITONIN, INFECTIOUS DISEASE USE ONLY (03/18/2019 2:54 EDT) [facility] Procalcitonin, Infectious Disease Use Only 7.59 ng/ml 03/18/2019 8:25 EDT [facility] Comment: Procalcitonin levels <0.5 ng/ml represent a low risk of severe sepsis and/or septic shock. Blood specimen (specimen) BLOOD SPECIMEN / Unknown 03/18/2019 2:54 EDT 03/18/2019 2:57 EDT us Kori Nguyen MD CHEMISTRY & BLOOD GAS ORD ERABLES Final Result Performing Organization Address [facility] Co de Phone Number [facility] [address] [place] [address] * (ABNORMAL) BLOOD GAS, G3 ISTAT (03/18/2019 2:52 EDT) Pathologist [facility] pH, i-STAT 7.27(L) 7.35 - 7.45 03/18/2019 2:57 EDT [facility] pCO2, i-STAT 46(H) 35 - 45 mmHg 03/18/2019 2:57 EDT [facility] pO2, i-STAT 103 80 - 105 mmHg 03/18/2019 2:57 EDT [facility] TCO2, i-STAT 22(L) 23 - 27 mEq/L 03/18/2019 2:57 EDT [facility] O2 Saturation 97 95 - 98 % 03/18/2019 2:57 EDT [facility] Base Deficit, i-STAT 6 03/18/2019 2:57 EDT [facility] Sample Type ARTERIAL 03/18/2019 2:57 EDT [facility] certification officer ID [id number] 03/18/2019 2:57 EDT [facility] Comment: Test Performed by Respiratory For non-arterial reference ranges, please see ISTAT procedure. BLOOD SPECIMEN / Unknown 03/18/2019 2:52 EDT 03/18/2019 2:57 EDT us Leticia Galdamez MD CHEMISTRY & BLOOD GAS ORDERAB LES Final Result Performing Organization Address [facility]/ZIP Co de Phone Number [facility] [address] [place] [address] * BACTERIAL CULTURE/SMEAR, RESPIRATORY (03/18/2019 2:43 EDT) Gram Smear Result Few Polys 03/18/2019 9:55 EDT [facility] Gram Smear Result No bacteria seen 03/18/2019 9:55 EDT [facility] Gram Smear Result Smear suggests minimal or no inflammation . 03/18/2019 9:55 EDT [facility] Result Mod Usual joseph-pharynge al constance 03/19/2019 8:33 EDT [facility] Specimen of unknown material (specimen) SPUTUM / Unknown 03/18/2019 2:43 EDT 03/18/2019 7:19 EDT Comment:Tracheal Aspirate us Leticia Galdamez MD MICROBIOLOGY - GENERAL ORDERA BLES Final Result [facility] [address] [place] [address] * (ABNORMAL) GLUCOSE, GLUCOMETER (03/17/2019 23:21 EDT) Glucose, Fingerstick 193(H) 70 - 100 mg/dl 03/17/2019 23:26 EDT [facility] Clinical Writer ID [id number] 03/17/2019 23:26 EDT [facility] Comment:Test Performed by Nu ing Services BLOOD SPECIMEN / Unknown 03/17/2019 23:21 EDT 03/17/2019 23:26 EDT us Leticia Galdamez MD CHEMISTRY & BLOOD GAS ORDERAB LES Final Result Performing Organization Address [facility] de Phone Number [facility] [address] [place] [address] * (ABNORMAL) ELECTROLYTES (03/17/2019 21:46 EDT) Sodium 139 136 - 145 mEq/L 03/17/2019 22:22 EDT [facility] Potassium 4.0 3.5 - 5.0 mEq/L 03/17/2019 22:22 EDT [facility] Chloride 106 96 - 110 mEq/L 03/17/2019 22:22 EDT [facility] CO2 20(L) 22 - 32 mEq/L 03/17/2019 22:22 EDT [facility] Blood specimen (specimen) BLOOD SPECIMEN / Unknown 03/17/2019 21:46 EDT 03/17/2019 21:50 EDT us Kori Nguyen MD CHEMISTRY & BLOOD GAS ORD ERABLES Final Result Performing Organization Address [facility] de Phone Number [facility] [address] [place] [address] * (ABNORMAL) PROTIME (03/17/2019 21:46 EDT) Pro Time 16.5(H) 10.3 - 13.4 secs 03/17/2019 22:30 EDT [facility] I.N.R. 1.4(H) 0.9 - 1.1 Ratio 03/17/2019 22:30 T [facility] Comment: Moderate Intensity Coumadin INR = 2.0-3.0 Adjustments in anticoagulant therapy dose should be based upon the INR and NOT the Pro Time. Blood specimen (specimen) BLOOD SPECIMEN / Unknown 03/17/2019 21:46 EDT 03/17/2019 21:50 EDT us Kori Nguyen MD HEMATOLOGY & PF4 ORDERABL ES Final Result Performing Organization Address [facility] Co de Phone Number [facility] [address] [place] [address] * (ABNORMAL) BLOOD GAS, G3 ISTAT (03/17/2019 21:44 EDT) pH, i-STAT 7.25(L) 7.35 - 7.45 03/17/2019 21:55 EDT [facility] pCO2, i-STAT 46(H) 35 - 45 mmHg 03/17/2019 21:55 EDT [facility] pO2, i-STAT 76(L) 80 - 105 mmHg 03/17/2019 21:55 EDT [facility] TCO2, i-STAT 21(L) 23 - 27 mEq/L 03/17/2019 21:55 EDT [facility] O2 Saturation 92(L) 95 - 98 % 03/17/2019 21:55 EDT [facility] Base Deficit, i-STAT 7 03/17/2019 21:55 T [facility] Sample Type ARTERIAL 03/17/2019 21:55 T [facility] certification officer ID [id number] 03/17/2019 21:55 T [facility] Comment: Test Performed by Respiratory For non-arterial reference ranges, please see ISTAT procedure. BLOOD SPECIMEN / Unknown 03/17/2019 21:44 EDT 03/17/2019 21:55 EDT us Leticia Galdamez MD CHEMISTRY & BLOOD GAS ORDERAB LES Final Result Performing Organization Address [facility]/ZIP Co de Phone Number [facility] [address] [place] [address] * (ABNORMAL) GLUCOSE, GLUCOMETER (03/17/2019 18:04 EDT) Glucose, Fingerstick 216(H) 70 - 100 mg/dl 03/17/2019 18:[facility] Clinical Writer ID [id number] 03/17/2019 18:08 EDT [facility] Comment:Test Performed by Nu rsing Services BLOOD SPECIMEN / Unknown 03/17/2019 18:04 EDT 03/17/2019 18:08 EDT us Leticia Galdamez MD CHEMISTRY & BLOOD GAS ORDERAB LES Final Result Performing Organization Address [facility]/ZIP Co de Phone Number [facility] [address] [place] [address] * (ABNORMAL) BLOOD GAS, G3 ISTAT (03/17/2019 16:09 EDT) pH, i-STAT 7.16(L) 7.35 - 7.45 03/17/2019 16:13 [facility] pCO2, i-STAT 49(H) 35 - 45 mmHg 03/17/2019 16:13 [facility] pO2, i-STAT 87 80 - 105 mmHg 03/17/2019 16:13 [facility] TCO2, i-STAT 19(L) 23 - 27 mEq/L 03/17/2019 16:13 [facility] O2 Saturation 93(L) 95 - 98 % 03/17/2019 16:13 [facility] Base Deficit, i-STAT 11 03/17/2019 16:13 [facility] Sample Type ARTERIAL 03/17/2019 16:13 [facility] certification officer ID [id number] 03/17/2019 16:13 [facility] Comment: Test Performed by Respiratory For non-arterial reference ranges, please see ISTAT procedure. BLOOD SPECIMEN / Unknown 03/17/2019 16:09 EDT 03/17/2019 16:13 EDT us Leticia Galdamez MD CHEMISTRY & BLOOD GAS ORDERAB LES Final Result Performing Organization Address [facility]/ZIP Co de Phone Number [facility] [address] [place] [address] * (ABNORMAL) PHOSPHORUS (03/17/2019 15:37 EDT) Phosphorus 11.5(H) 2.5 - 4.5 mg/dl 03/17/2019 16:12 EDT [facility] Blood specimen (specimen) BLOOD SPECIMEN / Unknown 03/17/2019 15:37 EDT 03/17/2019 15:48 EDT Leticia Galdamez MD CHEMISTRY & BLOOD GAS ORDERAB LES Final Result Performing Organization Address [facility] Co de Phone Number [facility] [address] [place] [address] * (ABNORMAL) CALCIUM, IONIZED (03/17/2019 15:37 EDT) Calcium, Ionized 0.92(L) 1.12 - 1.32 mmol/L 03/17/2019 16:03 EDT [facility] Blood specimen (specimen) BLOOD SPECIMEN / Unknown 03/17/2019 15:37 EDT 03/17/2019 15:48 EDT Leticia Galdamez MD CHEMISTRY & BLOOD GAS ORDERAB LES Final Result Performing Organization Address [facility] Co de Phone Number [facility] [address] [place] [address] * (ABNORMAL) ELECTROLYTES (03/17/2019 15:37 EDT) Sodium 138 136 - 145 mEq/L 03/17/2019 16:12 EDT [facility] Potassium 4.2 3.5 - 5.0 mEq/L 03/17/2019 16:12 EDT [facility] Chloride 105 96 - 110 mEq/L 03/17/2019 16:12 EDT [facility] CO2 19(L) 22 - 32 mEq/L 03/17/2019 16:12 EDT [facility] Blood specimen (specimen) BLOOD SPECIMEN / Unknown 03/17/2019 15:37 EDT 03/17/2019 15:48 EDT Leticia Galdamze MD CHEMISTRY & BLOOD GAS ORDERAB LES Final Result Performing Organization Address [facility] Co de Phone Number [facility] [address] [place] [address] * (ABNORMAL) CALCIUM, IONIZED (03/17/2019 12:59 EDT) Calcium, Ionized 0.56(LL) 1.12 - 1.32 mmol/L 03/17/2019 13:24 EDT [facility] Comment:Sample retested, res ult confirmed Blood specimen (specimen) BLOOD SPECIMEN / Unknown 03/17/2019 12:59 EDT 03/17/2019 13:12 EDT us Kori Nguyen MD CHEMISTRY & BLOOD GAS ORD ERABLES Final Result Performing Organization Address [facility] Co de Phone Number [facility] [address] [place] [address] * INPATIENT ADD-ON (03/17/2019 12:46 EDT) Tests to be added HEMOGLOBIN A1C 03/17/2019 12:45 EDT [facility] Number for problems [id number] 03/17/2019 12:49 EDT [facility] Accession number [id number] 03/17/2019 12:49 EDT [facility] TOPOGRAPHY UNKNOWN / Unknown 03/17/2019 12:46 EDT 03/17/2019 12:48 EDT us Kori Nguyen MD HEMATOLOGY & PF4 ORDERABL ES Final Result Performing Organization Address [facility]/ZIP Co de Phone Number [facility] [address] [place] [address] * EKG 12-LEAD (03/17/2019 12:23 EDT) 03/17/2019 12:2 3 EDT Narrative [facility] - 03/21/2019 7:15 EDT ? The ? Test Date: ?2019-03-17 Pat Name: ? SHIRLENE BRYAN ?Department: ?? [facility] [address] ? Room: ? M405 Gender: ? Male ? Web [employer] Roll Tender: ?? [id number] : ?1955 ? Requested By: GODWIN Bunn Order Number: [id number] ? Reading MD: ?? EUFEMIA WILSON MD ? Measurements Intervals ?[place] ? Rate: ? 123 ?P: ? [place]: ? 0 ?QRS: ?90 QRSD: ? 101 ?T: ?60 QT: ? 310 ? QTc: ?445 ? Interpretive Statements ATRIAL FIBRILLATION WITH RAPID VENTRICULAR RESPONSE No previous ECG available for comparison I reviewed the tracing and have either agreed or edited the findings in this report. Electronically Signed On 03-21-2019 7:15:07 EDT by EUFEMIA WILSON MD. Procedure Note Eufemia Wilson MD, - 03/21/2019 The Test Date: 2019-03-17 Pat Name: SHIRLENE BRYAN Department: [place] [address] Room: [facility] Gender: Male Web [employer] Roll Tender: [id number] : 1955 Requested By: GODWIN Bunn Order Number: [id number] Reading MD: EUFEMIA WILSON MD Measurements Intervals [place] Rate: 123 P: [place]: 0 QRS: 90 QRSD: 101 T: 60 QT: 310 QTc: 445 Interpretive Statements ATRIAL FIBRILLATION WITH RAPID VENTRICULAR RESPONSE No previous ECG available for comparison I reviewed the tracing and have either agreed or edited the findings inthis report. Electronically Signed On 03-21-2019 7:15:07 EDT by EUFEMIA WHARTON. us Kori Nguyen MD CARDIAC ECG ORDERABLES nal Result [facility] EKG * (ABNORMAL) GLUCOSE, GLUCOMETER (03/17/2019 12:05 EDT) Glucose, Fingerstick 205(H) 70 - 100 mg/dl 03/17/2019 12:10 EDT [facility] Clinical Writer ID [id number] 03/17/2019 12:10 EDT [facility] Comment:Test Performed by [facility] BLOOD SPECIMEN / Unknown 03/17/2019 12:05 EDT 03/17/2019 12:10 EDT us Leticia Galdamez MD CHEMISTRY & BLOOD GAS ORDERAB LES Final Result [facility] SERVICES [address] [place] [address] * PORTABLE CHEST 1 VIEW (03/17/2019 12:05 EDT) Anatomical Region Laterality Modality Other 03/17/2019 12:0 5 EDT 03/17/2019 12:13 EDT Narrative 03/17/2019 12:13 EDT PORTABLE CHEST 1 VIEW ??03/17/2019 12:05 PM Clinical History/Comments: Central line placement and OG tube placement Comparison: Outside chest radiographs five hours prior and outside chest CT one day prior. Findings: Single portable AP view of the chest. Lines/tubes: ??An endotracheal tube is present with tip projecting in the mid trachea, appropriately positioned. Transesophageal tube has its tip beyond the GE junction and not visualized on the current study. Left IJ line has its tip projecting in the superior vena cava, close to the cavoatrial junction. Soft tissues and bones: No significant abnormalities. Cardiac and mediastinal contours: Unremarkable although portions are silhouetted by adjacent opacity. Lungs: There is diffuse bilateral airspace disease with greater confluence in the left mid to lower lung zone than on the right. Overall the appearance has worsened since the CT one day prior and is roughly similar to the chest radiograph obtained five hours prior. Pleura: No visible pleural abnormalities. Impression: 1. ??Severe bilateral airspace disease likely representing diffuse pneumonia. Procedure Note Scarlet Cleveland MD, - 03/17/2019 PORTABLE CHEST 1 VIEW 03/17/2019 12:05 PM Clinical History/Comments: Central line placement and OG tube placement Comparison: Outside chest radiographs five hours prior and outside chest CT one day prior. Findings: Single portable AP view of the chest. Lines/tubes: An endotracheal tube is present with tip projecting in the mid trachea, appropriately positioned. Transesophageal tube has its tip beyond the GE junction and not visualized on the current study. Left IJ line has its tip projecting in the superior vena cava, close to the cavoatrial junction. Soft tissues and bones: No significant abnormalities. Cardiac and mediastinal contours: Unremarkable although portions are silhouetted by adjacent opacity. Lungs: There is diffuse bilateral airspace disease with greater confluence in the left mid to lower lung zone than on the right. Overall the appearance has worsened since the CT one day prior and is roughly similar to the chest radiograph obtained five hours prior. Pleura: No visible pleural abnormalities. Impression: 1. Severe bilateral airspace disease likely representing diffuse pneumonia. us Brian Saldana MD IMG DIAGNOSTIC IMAGING ORDERABLE S Final Result * (ABNORMAL) BLOOD GAS, G3 ISTAT (03/17/2019 12:00 EDT) pH, i-STAT 7.19(L) 7.35 - 7.45 03/17/2019 12:06 EDT [facility] pCO2, i-STAT 46(H) 35 - 45 mmHg 03/17/2019 12:06 [facility] pO2, i-STAT 74(L) 80 - 105 mmHg 03/17/2019 12:06 [facility] TCO2, i-STAT 19(L) 23 - 27 mEq/L 03/17/2019 12:06 [facility] O2 Saturation 90(L) 95 - 98 % 03/17/2019 12:06 [facility] Base Deficit, i-STAT 11 03/17/2019 12:06 [facility] Sample Type ARTERIAL 03/17/2019 12:06 [facility] certification officer ID [id number] 03/17/2019 12:06 [facility] Comment: Test Performed by Respiratory For non-arterial reference ranges, please see ISTAT procedure. BLOOD SPECIMEN / Unknown 03/17/2019 12:00 EDT 03/17/2019 12:06 EDT us Leticia Galdamez MD CHEMISTRY & BLOOD GAS ORDERAB LES Final Result [facility] [address] [place] [address] * INPATIENT ADD-ON (03/17/2019 11:01 EDT) Tests to be added PTT,PROTIM E 03/17/2019 11:00 EDT [facility] Number for problems [id number] 03/17/2019 11:03 EDT [facility] Accession number [id number] 03/17/2019 11:03 EDT [facility] TOPOGRAPHY UNKNOWN / Unknown 03/17/2019 11:01 EDT 03/17/2019 11:03 EDT us Brian Saldana MD HEMATOLOGY & PF4 ORDERABLES Juliana l Result [facility] [address] [place] [address] * STREPTOCOCCUS PNEUMONIAE ANTIGEN, URINE (03/17/2019 10:10 EDT) Result No Strep pneumoniae antigen detected. 03/17/2019 12:51 EDT [facility] Specimen of unknown material (specimen) URINE / Unknown 03/17/2019 10:10 EDT 03/17/2019 12:21 EDT Leticia Galdamez MD MICROBIOLOGY - GENERAL ORDERA BLES Final Result [facility] [address] [place] [address] * LEGIONELLA ANTIGEN DETECTION, URINE (03/17/2019 10:10 EDT) Result No Legionella pneumophila serogroup 1 antigen detected. 03/17/2019 12:52 EDT [facility] Specimen of unknown material (specimen) URINE / Unknown 03/17/2019 10:10 EDT 03/17/2019 12:20 EDT Leticia Galdamez MD MICROBIOLOGY - GENERAL ORDERA BLES Final Result [facility] [address] [place] [address] * (ABNORMAL) GLUCOSE, GLUCOMETER (03/17/2019 9:19 EDT) Glucose, Fingerstick 133(H) 70 - 100 mg/dl 03/17/2019 9:20 EDT [facility] Clinical Writer ID [id number] 03/17/2019 9:20 EDT [facility] Comment:Test Performed by [employer] BLOOD SPECIMEN / Unknown 03/17/2019 9:19 EDT 03/17/2019 9:20 EDT us Leticia Galdamez MD CHEMISTRY & BLOOD GAS ORDERAB LES Final Result Performing Organization Address City/[facility]/ZIP Co de Phone Number [facility] [address] [place] [address] * HEMOGLOBIN A1C (03/17/2019 9:18 EDT) Hemoglobin A1C 6.0 % 03/19/2019 8:58 EDT [facility] Comment: Reference Range: <5.7% Normal 5.7-6.4% Prediabetes =>6.5% Diagnostic for diabetes (if confirmed) Goals for glycemic control in diabetes ADA 2017 For non adults with diabetes: ?? Target <7.0% For children and adolescents with type 1 diabetes: ?? Target <7.5% More or less stringent targets may be appropriate for individual patients. Est Avg Glucose 126 mg/dl 9 8:58 EDT [facility] Comment: eAG represents the A1c result expressed as average glucose in mg/dl. BLOOD SPECIMEN / Unknown 03/17/2019 9:18 EDT 03/17/2019 9:25 EDT us Kori Nguyen MD CHEMISTRY & BLOOD GAS ORD ERABLES Final Result Performing Organization Address City/[facility]/ZIP Co de Phone Number [facility] [address] [place] [address] * PTT (03/17/2019 9:18 EDT) PTT 31 26 - 37 secs 03/17/2019 11:22 EDT [facility] BLOOD SPECIMEN / Unknown 03/17/2019 9:18 EDT 03/17/2019 9:25 EDT us Kori Nguyen MD HEMATOLOGY & PF4 ORDERABL ES Final Result Performing Organization Address [facility] de Phone Number [facility] [address] [place] [address] * (ABNORMAL) PROTIME (03/17/2019 9:18 EDT) Pro Time 15.2(H) 10.3 - 13.4 secs 03/17/2019 11:16 EDT [facility] I.N.R. 1.3(H) 0.9 - 1.1 Ratio 03/17/2019 11:16 EDT [facility] Comment: Moderate Intensity Coumadin INR = 2.0-3.0 Adjustments in anticoagulant therapy dose should be based upon the INR and NOT the Pro Time. BLOOD SPECIMEN / Unknown 03/17/2019 9:18 EDT 03/17/2019 9:25 EDT us Kori Nguyen MD HEMATOLOGY & PF4 ORDERABL ES Final Result Performing Organization Address [facility] de Phone Number [facility] [address] [place] [address] * HOLD BLUE TOP (03/17/2019 9:18 EDT) Hold Blue Top Sample for coagulation will be discarded after 4 hours 03/17/2019 9:36 EDT [facility] BLOOD SPECIMEN / Unknown 03/17/2019 9:18 EDT 03/17/2019 9:25 EDT us Kori Nguyen MD LAB INFO SERVICE AND SUPP ORT & PHONE RESULT Final Result Performing Organization Address [facility] Co de Phone Number [facility] [address] [place] [address] * (ABNORMAL) COMPLETE BLOOD COUNT AND DIFFERENTIAL (03/17/2019 9:18 EDT) WBC 26.92(H) 4.0 - 10.4 K/cmm 03/17/2019 10:11 [facility] RBC 4.35(L) 4.36 - 5.78 M/cmm 03/17/2019 9:35 [facility] Hemoglobin 14.2 13.8 - 17.3 gm/dl 03/17/2019 9:35 [facility] HCT 40.1 39.5 - 50.2 % 03/17/2019 9:35 [facility] MCV 92 81 - 95 fl 03/17/2019 9:35 [facility] MCH 32.6 27.6 - 33.0 pg 03/17/2019 9:35 [facility] MCHC 35.4 32.8 - 36.4 gm/dl 03/17/2019 9:35 [facility] RDW-CV 14.7(H) <14.2 % 03/17/2019 9:35 [facility] RDW-SD 50.3(H) <46.0 fl 03/17/2019 9:35 [facility] PLT Unreportable due to presence of platelet clumps 141 - 377 K/cmm 03/17/2019 10:11 [facility] MPV Unreportable due to presence of platelet clumps 9.5 - 12.7 fl 03/17/2019 10:11 [facility] Neutrophils 99.0 % 03/17/2019 10:13 [facility] Monocytes 1.0 % 03/17/2019 10:13 [facility] ABS Neutrophils 26.65(H) 2.20 - 8.85 K/cmm 03/17/2019 10:13 [facility] ABS Monocytes 0.27 0.1 - 0.8 K/cmm 03/17/2019 10:13 [facility] Jj Cells 2+ 03/17/2019 10:13 [facility] Toxic Granulation Present 03/17/2019 10:13 [facility] Vacuolization Present 03/17/2019 10:13 EDT [facility] Type of Diff: Manual 03/17/2019 10:13 EDT [facility] Blood specimen (specimen) BLOOD SPECIMEN / Unknown 03/17/2019 9:18 EDT 03/17/2019 9:25 EDT us Kori Nguyen MD PACKAGES & DNA PROBE ORDE CARMENLES Final Result Performing Organization Address City/[facility]/ZIP Co de Phone Number [facility] [address] [place] [address] * (ABNORMAL) PROTEIN, TOTAL (03/17/2019 9:18 EDT) Total Protein 4.7(L) 6.3 - 8.2 g/dl 03/17/2019 9:46 EDT [facility] Blood specimen (specimen) BLOOD SPECIMEN / Unknown 03/17/2019 9:18 EDT 03/17/2019 9:25 EDT us Kori Nguyen MD CHEMISTRY & BLOOD GAS ORD ERABLES Final Result Performing Organization Address [facility] Co de Phone Number [facility] [address] [place] [address] * BILIRUBIN, TOTAL (03/17/2019 9:18 EDT) Bilirubin, Total 1.1 <1.4 mg/dl 03/17/2019 9:46 EDT [facility] Blood specimen (specimen) BLOOD SPECIMEN / Unknown 03/17/2019 9:18 EDT 03/17/2019 9:25 EDT us Kori Nguyen MD CHEMISTRY & BLOOD GAS ORD ERABLES Final Result Performing Organization Address [facility] Co de Phone Number [facility] [address] [place] [address] * LACTIC ACID (03/17/2019 9:18 EDT) Lactic Acid 1.6 <2.1 mmol/L 03/17/2019 9:44 EDT [facility] Comment:Slight hemolysis Blood specimen (specimen) BLOOD SPECIMEN / Unknown 03/17/2019 9:18 EDT 03/17/2019 9:25 EDT us Kori Nguyen MD CHEMISTRY & BLOOD GAS ORD ERABLES Final Result Performing Organization Address City/[facility]/ZIP Co de Phone Number [facility] [address] [place] [address] * (ABNORMAL) AST (03/17/2019 9:18 EDT) AST 146(H) 15 - 46 U/L 03/17/2019 9:46 EDT [facility] Blood specimen (specimen) BLOOD SPECIMEN / Unknown 03/17/2019 9:18 EDT 03/17/2019 9:25 EDT us Kori Nguyen MD CHEMISTRY & BLOOD GAS ORD ERABLES Final Result Performing Organization Address [facility]/ZIP Co de Phone Number [facility] [address] [place] [address] * (ABNORMAL) ALT (03/17/2019 9:18 EDT) ALT 90(H) <50 U/L 03/17/2019 9:46 EDT [facility] Blood specimen (specimen) BLOOD SPECIMEN / Unknown 03/17/2019 9:18 EDT 03/17/2019 9:25 EDT us Kori Nguyen MD CHEMISTRY & BLOOD GAS ORD ERABLES Final Result Performing Organization Address City/[facility] Co de Phone Number [facility] [address] [place] [address] * ALKALINE PHOSPHATASE (03/17/2019 9:18 EDT) Total Alkaline Phosphatase 109 38 - 126 U/L 03/17/2019 9:46 EDT [facility] Blood specimen (specimen) BLOOD SPECIMEN / Unknown 03/17/2019 9:18 EDT 03/17/2019 9:25 EDT us Kori Nguyen MD CHEMISTRY & BLOOD GAS ORD ERABLES Final Result [facility] [address] [place] [address] * (ABNORMAL) ALBUMIN (03/17/2019 9:18 EDT) Albumin 2.2(L) 3.4 - 4.9 g/dl 03/17/2019 9:46 EDT [facility] Blood specimen (specimen) BLOOD SPECIMEN / Unknown 03/17/2019 9:18 EDT 03/17/2019 9:25 EDT us Kori Nguyen MD CHEMISTRY & BLOOD GAS ORD ERABLES Final Result Performing Organization Address City/[facility]/ZIP Co de Phone Number [facility] [address] [place] [address] * (ABNORMAL) SCREENING GLUCOSE (03/17/2019 9:18 EDT) Glucose, Screening 120(H) 70 - 100 mg/dl 03/17/2019 9:46 EDT [facility] Blood specimen (specimen) BLOOD SPECIMEN / Unknown 03/17/2019 9:18 EDT 03/17/2019 9:25 EDT us Kori Nguyen MD CHEMISTRY & BLOOD GAS ORD ERABLES Final Result [facility] [address] [place] [address] * (ABNORMAL) CREATININE (03/17/2019 9:18 EDT) Creatinine 3.11(H) 0.66 - 1.25 mg/dl 03/17/2019 9:46 EDT [facility] GFR, Calculated 20(L) >60 ml/min/1.7 3m2 03/17/2019 9:46 EDT [facility] Comment: eGFR calculated using CKD-EPI equation for non Americans. Multiply eGFR by 1.16 for Americans. Blood specimen (specimen) BLOOD SPECIMEN / Unknown 03/17/2019 9:18 EDT 03/17/2019 9:25 EDT us Kori Nguyen MD CHEMISTRY & BLOOD GAS ORD ERABLES Final Result Performing Organization Address City/[facility]/ZIP Co de Phone Number [facility] [address] [place] [address] * (ABNORMAL) BUN (03/17/2019 9:18 EDT) BUN 142(H) 10 - 26 mg/dl 03/17/2019 9:57 EDT [facility] Blood specimen (specimen) BLOOD SPECIMEN / Unknown 03/17/2019 9:18 EDT 03/17/2019 9:25 EDT us Kori Nguyen MD CHEMISTRY & BLOOD GAS ORD ERABLES Final Result Performing Organization Address [facility] Co de Phone Number [facility] [address] [place] [address] * (ABNORMAL) PHOSPHORUS (03/17/2019 9:18 EDT) Phosphorus 9.8(H) 2.5 - 4.5 mg/dl 03/17/2019 9:46 EDT [facility] Blood specimen (specimen) BLOOD SPECIMEN / Unknown 03/17/2019 9:18 EDT 03/17/2019 9:25 EDT us Kori Nguyen MD CHEMISTRY & BLOOD GAS ORD ERABLES Final Result Performing Organization Address City/[facility] Co de Phone Number [facility] [address] [place] [address] * MAGNESIUM (03/17/2019 9:18 EDT) Magnesium 2.6 1.7 - 2.8 mg/dl 03/17/2019 9:46 EDT [facility] Blood specimen (specimen) BLOOD SPECIMEN / Unknown 03/17/2019 9:18 EDT 03/17/2019 9:25 EDT us Kori Nguyen MD CHEMISTRY & BLOOD GAS ORD ERABLES Final Result Performing Organization Address [facility] Co de Phone Number [facility] [address] [place] [address] * PROCALCITONIN, INFECTIOUS DISEASE USE ONLY (03/17/2019 9:18 EDT) Procalcitonin, Infectious Disease Use Only 5.60 ng/ml 03/17/2019 10:24 EDT [facility] Comment: Procalcitonin levels <0.5 ng/ml represent a low risk of severe sepsis and/or septic shock. Blood specimen (specimen) BLOOD SPECIMEN / Unknown 03/17/2019 9:18 EDT 03/17/2019 9:25 EDT us Kori Nguyen MD CHEMISTRY & BLOOD GAS ORD ERABLES Final Result Performing Organization Address [facility] de Phone Number [facility] [address] [place] [address] * (ABNORMAL) ELECTROLYTES (03/17/2019 9:18 EDT) Sodium 137 136 - 145 mEq/L 03/17/2019 9:46 EDT [facility] Potassium 4.5 3.5 - 5.0 mEq/L 03/17/2019 9:46 EDT [facility] Chloride 108 96 - 110 mEq/L 03/17/2019 9:46 EDT [facility] CO2 15(L) 22 - 32 mEq/L 03/17/2019 9:46 EDT [facility] Blood specimen (specimen) BLOOD SPECIMEN / Unknown 03/17/2019 9:18 EDT 03/17/2019 9:25 EDT us Kori Nguyen MD CHEMISTRY & BLOOD GAS ORD ERABLES Final Result [facility] [address] [place] [address] * (ABNORMAL) CALCIUM (03/17/2019 9:18 EDT) Calcium 6.4(LL) 8.5 - 10.5 mg/dl 03/17/2019 9:46 EDT [facility] Calculated Calcium 7.8(L) 8.5 - 10.5 mg/dl 03/17/2019 9:46 T [facility] Blood specimen (specimen) BLOOD SPECIMEN / Unknown 03/17/2019 9:18 EDT 03/17/2019 9:25 EDT us Kori Nguyen MD CHEMISTRY & BLOOD GAS ORD ERABLES Final Result Performing Organization Address [facility] Co de Phone Number [facility] [address] [place] [address] * (ABNORMAL) BLOOD GAS, G3 ISTAT (03/17/2019 9:16 EDT) pH, i-STAT 7.02(L) 7.35 - 7.45 03/17/2019 9:21 [facility] pCO2, i-STAT 59(H) 35 - 45 mmHg 03/17/2019 9:21 [facility] pO2, i-STAT 83 80 - 105 mmHg 03/17/2019 9:21 [facility] TCO2, i-STAT 17(L) 23 - 27 mEq/L 03/17/2019 9:21 [facility] O2 Saturation 89(L) 95 - 98 % 03/17/2019 9:21 [facility] Base Deficit, i-STAT 16 03/17/2019 9:21 [facility] Sample Type ARTERIAL 03/17/2019 9:21 [facility] certification officer ID [id number] 03/17/2019 9:21 [facility] Comment: Test Performed by Respiratory For non-arterial reference ranges, please see ISTAT procedure. BLOOD SPECIMEN / Unknown 03/17/2019 9:16 EDT 03/17/2019 9:21 EDT us Leticia Galdamez MD CHEMISTRY & BLOOD GAS ORDERAB LES Final Result Performing Organization Address City/[facility]/ZIP Co de Phone Number [facility] [address] [place] [address] * MRSA PCR (03/17/2019 9:05 EDT) Result Methicillin susceptible Staphylococcus aureus (MSSA) DNA detected by PCR. 03/17/2019 16:49 EDT [facility] Specimen of unknown material (specimen) NASAL ROUTE / Unknown 03/17/2019 9:05 EDT 03/17/2019 12:22 EDT us Kori Nguyen MD MICROBIOLOGY - GENERAL OR DERABLES Final Result Performing Organization Address City/[facility] Co de Phone Number [facility] [address] [place] [address] documented in this encounter Visit Diagnoses Diagnosis Acute respiratory failure with hypoxia (HCC-CMS)- Primary Acute respiratory failure Acute respiratory failure with hypoxia (HCC-CMS) Acute respiratory failure Atrial fibrillation with RVR (HCC-CMS) Atrial fibrillation SIRISHA (acute kidney injury) (HCC-CMS) Acute kidney failure, unspecified ARDS (adult respiratory distress syndrome) (HCC-CMS) Other pulmonary insufficiency, not elsewhere classified, following trauma and surgery Vitamin B12 deficiency anemia due to intrinsic factor deficiency Pernicious anemia Bacteremia Fever in other diseases Upper gastrointestinal bleed Hemorrhage of gastrointestinal tract, unspecified Atrial fibrillation with RVR (HCC-CMS) Atrial fibrillation Septic shock (HCC-CMS) ARDS (adult respiratory distress syndrome) (HCC-CMS) Other pulmonary insufficiency, not elsewhere classified, following trauma and surgery SIRISHA (acute kidney injury) (HCC-CMS) Acute kidney failure, unspecified Anemia Anemia, unspecified Thrombocytopenia (HCC-CMS) Thrombocytopenia, unspecified Bacteremia Fever Fever, unspecified Encephalopathy Encephalopathy, unspecified Upper gastrointestinal bleed Hemorrhage of gastrointestinal tract, unspecified documented in this encounter Administered Medications Inactive Administered Medications - up to 3 most recent administrations Medication Order MAR Action Action Date Dose Rate Site acetaminophen (TYLENOL) solution unit dose cup 995 mg 995 mg (rounded from 1,000 mg), oral, EVERY 8 HOURS PRN, Starting on 04/14/19 at 2121, Until 04/23/19 at 1332, Pain, Routine acetaminophen (TYLENOL) tablet 1,000 mg 1,000 mg, oral, EVERY 6 HOURS, First dose on 03/17/19 at 1200, Until Discontinued, Routine Given 03/19/2019 23:29 EDT 1,000 mg Given 03/19/2019 17:20 EDT 1,000 mg Given 03/19/2019 11:10 EDT 1,000 mg acetaminophen (TYLENOL) tablet 1,000 mg 1,000 mg, oral, EVERY 6 HOURS PRN, Starting on 03/20/19 at 0530, Until Tue03/26/19 at 0929, Pain, Routine Given 03/24/2019 0:00 EDT 1,000 mg Given 03/23/2019 9:41 EDT 1,000 mg Given 03/21/2019 8:30 EDT 1,000 mg acetaminophen (TYLENOL) tablet 1,000 mg 1,000 mg, oral, 3 TIMES DAILY, 15 doses, First dose (after last modification) on Tue03/26/19 at 1400, Last dose on 03/31/19 at 0900, Routine Given 03/31/2019 8:03 EDT 1,000 mg Given 03/30/2019 20:13 EDT 1,000 mg Given 03/30/2019 14:55 EDT 1,000 mg acetaminophen (TYLENOL) tablet 1,000 mg 1,000 mg, oral, 3 TIMES DAILY, 15 doses, First dose (after last reorder) on [facility] 03/31/19 at 1400, Last dose on [facility] 04/05/19 at 0900, Routine Given 04/02/2019 20:08 EDT 1,000 mg Given 04/02/2019 14:08 EDT 1,000 mg Given 04/02/2019 8:03 EDT 1,000 mg acetaminophen (TYLENOL) tablet 1,000 mg 1,000 mg, oral, EVERY 8 HOURS PRN, Starting on Tue04/03/19 at 1000, Until 04/14/19 at 2122, Pain, Routine Given 04/11/2019 16:38 EDT 1,000 mg Given 04/08/2019 16:55 EDT 1,000 mg Given 04/07/2019 20:17 EDT 1,000 mg acetaZOLAMIDE (DIAMOX) injection 1,000 mg 1,000 mg, intravenous, NOW X1, 1 dose, On Tue04/01/19 at 1115, Routine Given 04/01/2019 11:16 EDT 1,000 mg albuterol (ACCUNEB) nebulizer solution 2.5 mg 2.5 mg, nebulization, EVERY 4 HOURS PRN, Starting on Tue04/13/19 at 1219, Until Tue04/23/19 at 1332, Wheezing, Routine alteplase (CATHFLO ACTIVASE) injection 2 mg 2 mg, intercatheter, PRN, Starting on Tue04/06/19 at 1151, Until Tue04/23/19 at 1332, Line Care, Routine Given 04/19/2019 10:50 EDT 2 mg Left Arm Given 04/09/2019 10:48 EDT 2 mg amino acids-protein hydrolysate (PRO SOURCE NOCARB) packet 30 mL 30 mL, oral, DAILY, First dose on Tue03/20/19 at 1615, Until Discontinued, Routine Given 03/24/2019 8:47 EDT 30 mL Given 03/23/2019 14:47 EDT 30 mL Given 03/22/2019 9:03 EDT 30 mL amino acids-protein hydrolysate (PRO SOURCE NOCARB) packet 30 mL 30 mL, oral, 3 TIMES DAILY, First dose on Tue04/05/19 at 1030, Until Discontinued, Routine Given 04/09/2019 8:48 EDT 30 mL Given 04/08/2019 20:21 EDT 30 mL Given 04/08/2019 13:30 EDT 30 mL amino acids-protein hydrolysate (PRO SOURCE NOCARB) packet 30 mL 30 mL, oral, 2 TIMES DAILY, First dose (after last modification) on Tue04/09/19 at 2100, Until Discontinued, Routine Given 04/16/2019 8:06 EDT 30 mL Given 04/15/2019 20:10 EDT 30 mL Given 04/15/2019 9:42 EDT 30 mL amiodarone (PACERONE) tablet 200 mg 200 mg, oral, DAILY, First dose (after last modification) on 03/31/19 at 0900, Until Discontinued, Routine Given 04/04/2019 8:03 EDT 200 mg Given 04/03/2019 9:58 EDT 200 mg Given 04/02/2019 8:05 EDT 200 mg amiodarone (PACERONE) tablet 400 mg 400 mg, oral, 2 TIMES DAILY, First dose on Tue03/22/19 at 0200, Until Discontinued, Routine Given 03/30/2019 8:20 EDT 40 0 mg Given 03/29/2019 20:14 EDT 400 mg Given 03/29/2019 10:00 EDT 400 mg amiodarone in dextrose 150 mg/100 mL (1.5 mg/mL) IV bolus 150 mg 150 mg, intravenous, Administer over 10 Minutes, NOW X1, 1 dose, On Tue03/20/19 at 1545, Routine Given 03/20/2019 14:45 EDT 150 mg amiodarone in dextrose 360 mg/200 mL (1.8 mg/mL) infusion 0.5 mg/min (16.6667 mL/hr, rounded to 16.7 mL/hr), intravenous, CONTINUOUS, Starting on Tue03/20/19 at 1545, Until Tue03/22/19 at 0134, Routine Rate Documented 03/20/2019 19:00 EDT 1 mg/min 33.3 mL/hr Rate Documented 03/20/2019 18:00 EDT 1 mg/min 33.3 mL/hr Rate Documented 03/20/2019 17:00 EDT 1 mg/min 33.3 mL/hr ascorbic acid (vitamin C) (VITAMIN C) 1,500 mg in sodium chloride (NS) 0.9 % 150 mL infusion high dose 1,500 mg (1.5 g), intravenous, Administer over 30 Minutes, EVERY 6 HOURS, 16 doses, First dose on Tue03/17/19 at 1000, Last dose on Tue03/21/19 at 0400, Routine Given 03/19/2019 3:57 EDT 1,500 mg Given 03/18/2019 22:02 EDT 1,500 mg Given 03/18/2019 15:53 EDT 1,500 mg ascorbic acid (vitamin C) (VITAMIN C) 1,500 mg in sodium chloride (NS) 0.9 % 150 mL infusion high dose 1,500 mg (1.5 g), intravenous, Administer over 30 Minutes, EVERY 6 HOURS, 16 doses, First dose on Tue03/26/19 at 0915, Last dose on Tue03/30/19 at 0400, Routine Given 03/30/2019 4:18 EDT 1,500 mg Given 03/29/2019 21:29 EDT 1,500 mg Given 03/29/2019 17:26 EDT 1,500 mg ascorbic acid (vitamin C) (VITAMIN C) tablet 1,000 mg 1,000 mg, oral, 2 TIMES DAILY, First dose on Tue03/30/19 at 0930, Until Discontinued, Routine Given 04/04/2019 8:03 EDT 1,000 mg Given 04/03/2019 20:53 EDT 1,000 mg Given 04/03/2019 9:58 EDT 1,000 mg ascorbic acid (vitamin C) (VITAMIN C) tablet 250 mg 250 mg, per g tube, DAILY, First dose on Tue04/15/19 at 1415, Until Discontinued, Routine Given 04/22/2019 20:02 E DT 250 mg Given 04/21/2019 8:28 EDT 250 mg Given 04/20/2019 8:37 EDT 250 mg ascorbic acid (vitamin C) (VITAMIN C) tablet 500 mg 500 mg, oral, DAILY, First dose on Tue03/19/19 at 1445, Until Discontinued, Routine Given 03/26/2019 8:02 EDT 500 mg Given 03/25/2019 8:41 EDT 500 mg Given 03/24/2019 8:48 EDT 500 mg azithromycin (ZITHROMAX) 500 mg in dextrose 5% (D5W) 250 mL IVPB 500 mg, intravenous, Administer over 60 Minutes, DAILY, 5 doses, First dose (after last reorder) on Tue03/17/19 at 1045, Last dose on Tue03/21/19 at 0900, Routine Given 03/19/2019 9:08 EDT 500 mg Given 03/18/2019 8:09 EDT 500 mg Given 03/17/2019 11:11 EDT 500 mg calcium carbonate (TUMS) 200 mg calcium (500 mg) per chewable tablet tablet,chewable 1 Tab 1 Tablet, oral, EVERY 8 HOURS, First dose on Tue03/19/19 at 1600, Until Discontinued, Routine Given 03/22/2019 8:03 EDT 1 Tablet Given 03/21/2019 23:53 EDT 1 Tablet Given 03/21/2019 16:15 EDT 1 Tablet calcium carbonate suspension 500 mg 500 mg, oral, 3 TIMES DAILY, First dose on [place] 03/22/19 at 1600, Until Discontinued, Routine Given 03/24/2019 8:48 EDT 50 0 mg Given 03/23/2019 20:04 EDT 500 mg Given 03/23/2019 14:47 EDT 500 mg calcium carbonate suspension 500 mg 500 mg, oral, 3 TIMES DAILY, First dose on 03/24/19 at 1400, Until Discontinued, Routine Given 03/27/2019 20:07 EDT 5 00 mg Given 03/27/2019 13:26 EDT 500 mg Given 03/27/2019 8:33 EDT 500 mg ceftaroline fosamil 300 mg in sodium chloride (NS) 0.9 % 50 mL IVPB 300 mg, intravenous, Administer over 60 Minutes, EVERY 8 HOURS, 21 doses, First dose on Tue03/19/19 at 2200, Last dose on Tue03/26/19 at 1600, Controlled antibiotic: has ID approved? Yes, Routine Given 03/20/2019 9:06 EDT 300 mg Given 03/19/2019 21:22 EDT 300 mg ceftaroline fosamil 400 mg in sodium chloride (NS) 0.9 % 50 mL IVPB 400 mg, intravenous, Administer over 60 Minutes, EVERY 12 HOURS, 14 doses, First dose on Tue03/19/19 at 1315, Last dose on Tue03/26/19 at 0200, Controlled antibiotic: has ID approved? Yes, Routine Given 03/19/2019 13:25 EDT 400 mg chlorothiazide (DIURIL) 500 mg in dextrose 5% (D5W) 50 mL IVPB 500 mg, intravenous, Administer over 30 Minutes, NOW X1, 1 dose, On Tue03/23/19 at 1000, Routine Given 03/23/2019 10:22 EDT 500 mg cholecalciferol (Vitamin D3) tablet 1,000 Units 1,000 Units, oral, DAILY, First dose on Tue04/10/19 at 0900, Until Discontinued, Routine Given 04/22/2019 20:02 EDT 1,000 Units Given 04/21/2019 8:28 EDT 1,000 Units Given 04/20/2019 8:37 EDT 1,000 Units clonazePAM (KLONOPIN) tablet 0.5 mg 0.5 mg, oral, 2 TIMES DAILY, First dose (after last modification) on Tue04/06/19 at 0900, Until Discontinued, Routine Given 04/06/2019 8:36 EDT 0.5 mg clonazePAM (KLONOPIN) tablet 0.5 mg 0.5 mg, oral, NOW X1, 1 dose, On [place] 04/05/19 at 1645, Routine Given 04/05/2019 16:30 EDT 0.5 mg clonazePAM (KLONOPIN) tablet 0.5 mg 0.5 mg, oral, NOW X1, 1 dose, On [place] 04/05/19 at 2045, Routine Given 04/05/2019 21:11 EDT 0.5 mg clonazePAM (KLONOPIN) tablet 0.5 mg 0.5 mg, oral, NOW X1, 1 dose, On Tue04/06/19 at 0915, Routine Given 04/06/2019 9:35 EDT 0.5 mg clonazePAM (KLONOPIN) tablet 0.5 mg 0.5 mg, oral, 2 TIMES DAILY PRN, Starting on Tue04/06/19 at 1100, Until 04/23/19 at 1332, Anxiety, Routine Given 04/10/2019 20:28 EDT 0.5 mg Given 04/09/2019 21:12 EDT 0.5 mg Given 04/08/2019 5:28 EDT 0.5 mg collagenase (SANTYL) ointment topical, DAILY, First dose on Tue04/13/19 at 1145, Until Discontinued Given 04/22/2019 20:40 EDT Given 04/21/2019 8:29 EDT Given 04/20/2019 8:52 EDT dexMEDEtomidine in 0.9 % NaCl (PRECEDEX) 400 mcg/100 mL infusion 0.2-1.4 mcg/kg/hr ? 70.4 kg (3.52-24.64 mL/hr, rounded to 3.5-24.6 mL/hr), intravenous, CONTINUOUS, Starting on Tue03/23/19 at 1000, Until 03/24/19 at 0037, Routine Rate Change-ICU/L&D Only 03/23/2019 18:12 EDT 0.5 mcg/kg/hr 8.8 mL/hr Rate Change-ICU/L&D Only 03/23/2019 18:00 EDT 1 mcg/kg/hr 17.6 mL/hr Rate Change 03/23/2019 16:09 EDT 1.4 mcg/kg/hr 24.6 mL/hr dextrose 5 % (D5W) infusion at 100 mL/hr, 2,000 mL, intravenous, CONTINUOUS, Starting on Tue03/21/19 at 1245, Until [place] 03/22/19 at 0134, Routine Rate Documented 03/22/2019 1:00 EDT 100 mL /hr New Bag 03/22/2019 0:09 EDT 1,000 mL 100 mL/hr Rate Documented 03/22/2019 0:00 EDT 100 mL/hr dextrose 50 % solution 12.5-25 g 12.5-25 g, intravenous, PRN, Starting on Tue03/21/19 at 1221, Until 04/23/19 at 1332, Low Blood Sugar, Routine diphenhydrAMINE (BENADRYL) capsule 25 mg 25 mg, oral, NOW X1, 1 dose, On 04/23/19 at 1200, Routine Given 04/23/2019 12:01 EDT 25 mg diphenhydrAMINE (BENADRYL) injection 50 mg 50 mg, intravenous, NOW X1, 1 dose, On [place] 03/29/19 at 1745, Routine Given 03/29/2019 17:37 EDT 50 mg enoxaparin (LOVENOX) injection 40 mg 40 mg, subcutaneous, DAILY, First dose on Tue03/30/19 at 0900, Until Discontinued, Routine Given 04/23/2019 8:46 EDT 40 mg Given 04/22/2019 8:47 EDT 40 mg Given 04/21/2019 8:29 EDT 40 mg EPINEPHrine 4 mg/250 mL in NS 4 mg/250 mL (16 mcg/mL) infusion 1 dose, Starting on 03/17/19 at 1558, Until 03/17/19 at 1605 EPINEPHrine 4 mg/250 mL in NS infusion 1-10 mcg/min (3.75-37.5 mL/hr, rounded to 3.8-37.5 mL/hr), intravenous, CONTINUOUS, Starting on 03/17/19 at 1645, Until 03/18/19 at 1409, Routine New Bag 03/17/2019 16:10 EDT 15 mcg/min 56.3 mL/hr New Bag 03/17/2019 16:05 EDT 5 mcg/min 18.8 mL/hr epoprostenol for inhalation (FLOLAN) 1500 mcg/50 ml solution 10 ng/kg/min ? 76.5 kg [place] weight (1.53 mL/hr, rounded to 1.5 mL/hr), inhalation, CONTINUOUS, Starting on 03/17/19 at 1000, Until 03/19/19 at 0742, STAT Rate Change 03/19/2019 6:30 EDT 10 ng/kg/min 1.5 mL/hr Rate Documented 03/19/2019 5:01 EDT 20 ng/kg/min 3.1 mL/hr Rate Documented 03/19/2019 5:00 EDT 20 ng/kg/min 3.1 mL/hr fentanyl 50 mcg/ml (SUBLIMAZE) syringe, 30 ml 25-100 mcg/hr (0.5-2 mL/hr), intravenous, CONTINUOUS, Starting on 03/20/19 at 1015, Until [place] 03/29/19 at 1938, STAT Rate Documented 03/29/2019 1:00 EDT 25 mcg/hr 0.5 mL/hr Rate Documented 03/29/2019 0:00 EDT 25 mcg/hr 0.5 mL/hr Rate Documented 03/28/2019 23:00 EDT 25 mcg/hr 0.5 mL/hr fentaNYL citrate (PF) 50 mcg/mL injection 1 dose, Starting on 03/17/19 at 0959, Until 03/17/19 at 0930 fentaNYL citrate (PF) injection 25-100 mcg 25-100 mcg, intravenous, EVERY 1 HOUR PRN, Starting on Tue03/23/19 at 1518, Until Tue04/04/19 at 1932, Pain, Severe agitation; do not give for overriding vent, Routine Given 03/31/2019 2:34 EDT 25 mcg Given 03/28/2019 1:27 EDT 50 mcg Given 03/27/2019 23:41 EDT 75 mcg fentaNYL citrate (PF) injection 50-100 mcg 50-100 mcg, intravenous, EVERY 2 HOURS PRN, Starting on 03/17/19 at 1058, Until 03/17/19 at 2118, Pain, sedation, Routine Given 03/17/2019 20:37 EDT 100 m cg Given 03/17/2019 18:59 EDT 50 mcg Given 03/17/2019 15:51 EDT 50 mcg fentaNYL citrate (PF) injection 50-100 mcg 50-100 mcg, intravenous, EVERY 1 HOUR PRN, Starting on 03/17/19 at 2130, Until Tue03/19/19 at 0410, Pain, sedation, Routine Given 03/19/2019 4:22 EDT 100 mc g Given 03/19/2019 3:01 EDT 100 mcg Given 03/19/2019 1:24 EDT 100 mcg fentaNYL citrate (PF) injection 50-100 mcg 50-100 mcg, intravenous, EVERY 1 HOUR PRN, Starting on Tue03/19/19 at 0436, Until Tue03/23/19 at 1518, Pain, Severe agitation; do not give for overriding vent, Routine Given 03/23/2019 15:01 EDT 50 mcg Given 03/22/2019 20:07 EDT 50 mcg Given 03/22/2019 8:07 EDT 50 mcg ferrous sulfate EC tablet 324 mg 324 mg, oral, DAILY WITH BREAKFAST, First dose on Tue04/17/19 at 0800, Until Discontinued, Routine Given 04/22/2019 20:02 EDT 324 mg Given 04/21/2019 8:29 EDT 324 mg Given 04/20/2019 8:37 EDT 324 mg furosemide (LASIX) 10 mg/mL injection 1 dose, Starting on 03/17/19 at 0950, Until Tue03/17/19 at 1511 furosemide (LASIX) injection 40 mg 40 mg, intravenous, EVERY 6 HOURS, First dose (after last modification) on 03/17/19 at 2115, Until Discontinued, Routine Given 03/19/2019 8:53 EDT 40 mg Given 03/19/2019 3:32 EDT 40 mg Given 03/18/2019 21:23 EDT 40 mg furosemide (LASIX) injection 40 mg 40 mg, intravenous, 2 TIMES DAILY, First dose (after last modification) on Tue03/30/19 at 2100, Until Discontinued, Routine Given 03/31/2019 8:03 EDT 40 mg Given 03/30/2019 20:13 EDT 40 mg furosemide (LASIX) injection 40 mg 40 mg, intravenous, DAILY, First dose (after last modification) on Tue04/01/19 at 0900, Until Discontinued, Routine Given 04/01/2019 9:42 EDT 40 mg furosemide (LASIX) injection 60 mg 60 mg, intravenous, EVERY 6 HOURS, First dose on 03/17/19 at 1515, Until Discontinued, Routine Given 03/17/2019 15:11 EDT 60 mg furosemide (LASIX) injection 60 mg 60 mg, intravenous, DAILY, First dose on 03/20/19 at 1000, Until Discontinued, Routine Given 03/20/2019 11:11 EDT 6 0 mg furosemide (LASIX) injection 60 mg 60 mg, intravenous, NOW X1, 1 dose, On Tue03/23/19 at 1045, Routine Given 03/23/2019 10:18 EDT 60 mg furosemide (LASIX) injection 60 mg 60 mg, intravenous, NOW X1, 1 dose, On 03/25/19 at 1100, Routine Given 03/25/2019 11:15 EDT 60 mg furosemide (LASIX) injection 60 mg 60 mg, intravenous, NOW X1, 1 dose, On 03/25/19 at 1615, Routine Given 03/25/2019 16:00 EDT 60 mg furosemide (LASIX) injection 60 mg 60 mg, intravenous, NOW X1, 1 dose, On 03/25/19 at 1915, Routine Given 03/25/2019 20:11 EDT 60 mg furosemide (LASIX) injection 60 mg 60 mg, intravenous, 3 TIMES DAILY, First dose on 03/27/19 at 0945, Until Discontinued, Routine Given 03/27/2019 13:27 EDT 60 mg Given 03/27/2019 9:46 EDT 60 mg furosemide (LASIX) injection 60 mg 60 mg, intravenous, 3 TIMES DAILY, First dose on Tue03/28/19 at 0930, Until Discontinued, Routine Given 03/30/2019 8:20 EDT 60 mg Given 03/29/2019 20:14 EDT 60 mg Given 03/29/2019 15:00 EDT 60 mg furosemide (LASIX) injection 70 mg 70 mg, intravenous, NOW X1, 1 dose, On 03/17/19 at 1015, Routine Given 03/17/2019 9:54 EDT 70 mg guaiFENesin (MUCINEX) SR tablet 600 mg 600 mg, oral, 2 TIMES DAILY, First dose on [place] 04/12/19 at 2100, Until Discontinued, Routine Given 04/23/2019 8:43 EDT 6 00 mg Given 04/22/2019 20:02 EDT 600 mg Given 04/22/2019 8:48 EDT 600 mg heparin 1,000 unit/mL injection 5,600 Units 5,600 Units (rounded from 5,632 Units = 80 Units/kg ? 70.4 kg Adjusted weight), intravenous, NOW X1, 1 dose, On Tue03/20/19 at 1630, STAT Given 03/20/2019 16:21 EDT 5,600 Units heparin in 1/2 NS 25,000 unit/250 mL infusion 18 Units/kg/hr ? 70.4 kg Adjusted weight (12.672 mL/hr, rounded to 12.7 mL/hr), intravenous, CONTINUOUS, Starting on Tue03/20/19 at 1630, Until Tue03/20/19 at 1639, STAT New Bag 03/20/2019 16:23 EDT 18 Units/kg/hr 12.7 mL/h r heparin injection 5,000 Units 5,000 Units, subcutaneous, EVERY 12 HOURS, First dose on Tue03/17/19 at 2100, Until Discontinued, Routine Given 03/19/2019 21:22 EDT 5,000 Units Given 03/19/2019 8:53 EDT 5,000 Units Given 03/18/2019 21:23 EDT 5,000 Units heparin injection 5,000 Units 5,000 Units, subcutaneous, EVERY 8 HOURS, First dose on Tue03/20/19 at 1015, Until Discontinued, Routine Given 03/20/2019 10:47 EDT 5,000 Units heparin injection 5,000 Units 5,000 Units, subcutaneous, EVERY 12 HOURS, First dose on Tue03/25/19 at 1100, Until Discontinued, Routine Given 03/27/2019 8:33 EDT 5,000 Units Given 03/26/2019 21:05 EDT 5,000 Units Given 03/26/2019 8:01 EDT 5,000 Units heparin injection 5,000 Units 5,000 Units, subcutaneous, EVERY 12 HOURS, 1 dose, First dose (after last modification) on Tue03/27/19 at 2100, Routine Given 03/27/2019 20:07 EDT 5,000 Units hydroCORTisone sodium succinate (PF) (SOLU-CORTEF) injection 100 mg 100 mg, intravenous, NOW X1, 1 dose, On Tue03/20/19 at 1930, Routine Given 03/20/2019 21:26 EDT 100 mg hydroCORTisone sodium succinate (PF) (SOLU-CORTEF) injection 50 mg 50 mg, intravenous, EVERY 6 HOURS, 12 doses, First dose on Tue03/17/19 at 1000, Last dose on Tue03/20/19 at 0400, Routine Given 03/20/2019 4:30 EDT 50 mg Given 03/19/2019 21:22 EDT 50 mg Given 03/19/2019 15:05 EDT 50 mg hydroCORTisone sodium succinate (PF) (SOLU-CORTEF) injection 50 mg 50 mg, intravenous, EVERY 6 HOURS, 12 doses, First dose (after last reorder) on Tue03/21/19 at 0000, Last dose on Tue03/23/19 at 1800, Routine Given 03/22/2019 6:15 EDT 50 mg Given 03/21/2019 23:52 EDT 50 mg Given 03/21/2019 17:28 EDT 50 mg impact peptide 1.5 0.09 gram- 1.5 kcal/mL at 75 mL/hr, per ng tube, CONTINUOUS, Starting on Tue04/16/19 at 1900, Until Tue04/23/19 at 1332, Administer over 14 Hours, Routine Rate Documented 04/21/2019 7:44 EDT 75 mL/hr Rate Documented 04/20/2019 19:00 EDT 75 mL/hr Rate Documented 04/20/2019 0:15 EDT 75 mL/hr indapamide (LOZOL) tablet 2.5 mg 2.5 mg, oral, DAILY, First dose on Tue03/27/19 at 0945, Until Discontinued, Routine Given 03/31/2019 8:03 EDT 2.5 mg Given 03/30/2019 8:20 EDT 2.5 mg Given 03/29/2019 10:00 EDT 2.5 mg indapamide (LOZOL) tablet 5 mg 5 mg, oral, DAILY, First dose on Tue03/17/19 at 1245, Until Discontinued, Routine Given 03/19/2019 8:53 EDT 5 mg Given 03/18/2019 9:47 EDT 5 mg Given 03/17/2019 13:38 EDT 5 mg insulin aspart U-100 (NOVOLOG FLEXPEN) injection subcutaneous, EVERY 6 HOURS, First dose on Tue03/17/19 at 1315, Until Discontinued, Routine Given 03/21/2019 11:35 ED T 4 Units Given 03/21/2019 6:14 EDT 2 Units Given 03/21/2019 1:16 EDT 1 Units insulin aspart U-100 (NOVOLOG FLEXPEN) injection subcutaneous, EVERY 6 HOURS, First dose on Tue03/22/19 at 1200, Until Discontinued, Routine Given 04/01/2019 11:27 ED T 1 Units Given 03/31/2019 12:23 EDT 1 Units Righ t Arm Given 03/31/2019 5:09 EDT 1 Units insulin regular (NOVOLIN R) 100 Units in sodium chloride (NS) 0.9 % 100 mL infusion 4 Units/hr (4 mL/hr), intravenous, CONTINUOUS, Starting on Tue03/21/19 at 1245, Until Tue03/22/19 at 0134, STAT Rate Documented 03/22/2019 1:00 EDT 1.5 Units/hr 1.5 mL /hr Rate Documented 03/22/2019 0:00 EDT 1.5 Units/hr 1.5 mL/hr Rate Documented 03/21/2019 23:00 EDT 1.5 Units/hr 1.5 mL/h r ipratropium-albuterol (DUONEB) 0.5 mg-3 mg(2.5 mg base)/3 mL nebulizer solution 3 mL 3 mL, nebulization, EVERY 6 HOURS PRN, Starting on Tue03/23/19 at 1636, Until Tue04/13/19 at 1214, Wheezing, Routine Given 04/13/2019 1:20 EDT 3 mL Given 04/07/2019 0:20 EDT 3 mL Given 04/06/2019 19:31 EDT 3 mL ipratropium-albuterol (DUONEB) 0.5 mg-3 mg(2.5 mg base)/3 mL nebulizer solution 3 mL 3 mL, nebulization, 3 TIMES DAILY, First dose (after last modification) on Tue04/18/19 at 0915, Until Discontinued, Routine Given 04/21/2019 7:30 EDT 3 mL Given 04/20/2019 20:57 EDT 3 mL Given 04/20/2019 15:00 EDT 3 mL ipratropium-albuterol (DUONEB) 0.5 mg-3 mg(2.5 mg base)/3 mL nebulizer solution 3 mL 3 mL, nebulization, 2 TIMES DAILY, First dose (after last modification) on Tue04/21/19 at 2100, Until Discontinued, Routine Given 04/23/2019 7:42 EDT 3 mL Given 04/22/2019 20:19 EDT 3 mL Given 04/22/2019 8:03 EDT 3 mL ketAMINE (KETALAR) 500mg in NaCl 0.9% 50ml syringe 0-70 mg/hr (0-7 mL/hr), intravenous, CONTINUOUS, Starting on Tue03/17/19 at 1630, Until Tue03/19/19 at 1722, STAT Rate Documented 03/19/2019 15:00 EDT 20 mg/hr 2 mL/hr Rate Documented 03/19/2019 14:00 EDT 20 mg/hr 2 mL/hr Rate Documented 03/19/2019 12:18 EDT 20 mg/hr 2 mL/hr ketAMINE (KETALAR) 500mg in NaCl 0.9% 50ml syringe 30 mg/hr (3 mL/hr), intravenous, CONTINUOUS, Starting on Tue03/21/19 at 1130, Until Tue03/23/19 at 0935, STAT Rate Documented 03/22/2019 9:00 EDT 30 mg/hr 3 mL/hr Rate Documented 03/22/2019 8:00 EDT 30 mg/hr 3 mL/hr Rate Documented 03/22/2019 7:00 EDT 30 mg/hr 3 mL/hr ketAMINE (KETALAR) 500mg in NaCl 0.9% 50ml syringe 15 mg/hr (1.5 mL/hr), intravenous, CONTINUOUS, Starting on Tue03/23/19 at 1645, Until Tue04/03/19 at 1027, STAT Rate Documented 04/03/2019 10:00 EDT 10 mg/hr 1 mL/hr Rate Documented 04/03/2019 9:00 EDT 10 mg/hr 1 mL/hr Rate Documented 04/03/2019 8:00 EDT 10 mg/hr 1 mL/hr lactated ringers BOLUS 1,000 mL 1,000 mL, intravenous, NOW X1, 1 dose, On Tue03/20/19 at 1545, Routine Given 03/20/2019 14:40 EDT 1,000 mL lactated ringers BOLUS 1,000 mL 1,000 mL, intravenous, NOW X1, 1 dose, On Tue03/20/19 at 1630, Routine Given 03/20/2019 16:00 EDT 1,000 mL lactated ringers BOLUS 1,000 mL 1,000 mL, intravenous, NOW X1, 1 dose, On Tue03/20/19 at 1800, Routine Given 03/20/2019 17:40 EDT 1,000 mL lactated ringers BOLUS 1,000 mL 1,000 mL, intravenous, NOW X1, 1 dose, On Tue03/21/19 at 1245, Routine Given 03/21/2019 12:48 EDT 1,000 mL LORazepam (ATIVAN) injection 2 mg 2 mg, intravenous, EVERY 4 HOURS PRN, Starting on Tue03/20/19 at 1858, Until Tue03/20/19 at 1953, Sedation, Routine Given 03/20/2019 19:00 EDT 2 mg LORazepam (ATIVAN) injection 4 mg 4 mg, intravenous, NOW X1, 1 dose, On Tue03/20/19 at 1600, Routine Given 03/20/2019 16:39 EDT 4 mg magnesium sulfate 2g in D5W 50 ml 2 g, intravenous, Administer over 30 Minutes, NOW X1, 1 dose, On Tue03/20/19 at 1545, Routine Given 03/20/2019 14:40 EDT 2 g magnesium sulfate 2g in D5W 50 ml 2 g, intravenous, Administer over 30 Minutes, PRN, Starting on 03/25/19 at 2008, Until [place] 03/25/19 at 2011, Routine Given 03/25/2019 20:13 EDT 2 g magnesium sulfate 2g in D5W 50 ml 2 g, intravenous, Administer over 30 Minutes, PRN, Starting on Tue03/26/19 at 1324, Until Tue04/23/19 at 1332, Routine Given 04/09/2019 5:29 EDT 2 g Given 04/01/2019 7:58 EDT 2 g Given 03/28/2019 6:12 EDT 2 g magnesium sulfate 2g in D5W 50 ml 2 g, intravenous, Administer over 30 Minutes, NOW X1, 1 dose, On [place] 03/29/19 at 1015, Routine Given 03/29/2019 10:00 EDT 2 g melatonin tablet 5 mg 5 mg, oral, AT BEDTIME, First dose on 03/17/19 at 2100, Until Discontinued, Routine Given 04/22/2019 20:02 EDT 5 mg Given 04/21/2019 20:05 EDT 5 mg Given 04/20/2019 20:03 EDT 5 mg metoprolol (LOPRESSOR) tablet 12.5 mg 12.5 mg, oral, 2 TIMES DAILY, First dose on 04/16/19 at 1030, Until Discontinued, Routine Given 04/23/2019 8:44 ED T 12.5 mg Given 04/22/2019 20:02 EDT 12.5 mg Given 04/22/2019 8:48 EDT 12.5 mg midazolam (VERSED) 100 mg in D5W 100 ml 1-10 mg/hr (1-10 mL/hr), intravenous, CONTINUOUS, Starting on Tue03/20/19 at 2015, Until Tue03/22/19 at 0134, Routine Rate Documented 03/21/2019 14:00 EDT 2 mg/hr 2 mL/hr Rate Documented 03/21/2019 13:00 EDT 2 mg/hr 2 mL/hr Rate Documented 03/21/2019 12:00 EDT 2 mg/hr 2 mL/hr Multivitamins with minerals + ferrous gluconate (CENTRUM) oral solution 15 mL 15 mL, feeding tube, DAILY, First dose on Tue03/18/19 at 1015, Until Discontinued, Routine Given 03/19/2019 8:53 EDT 15 mL Given 03/18/2019 10:17 EDT 15 mL Multivitamins with minerals + ferrous gluconate (CENTRUM) oral solution 15 mL 15 mL, feeding tube, DAILY, First dose on Tue03/27/19 at 1000, Until Discontinued, Routine Given 04/20/2019 8:37 EDT 15 mL Given 04/19/2019 8:02 EDT 15 mL Given 04/18/2019 10:16 EDT 15 mL Multivitamins with Minerals tablet 1 Tab 1 Tablet, oral, DAILY, First dose on 04/21/19 at 1215, Until Discontinued, Routine Given 04/23/2019 8:4 4 EDT 1 Tablet Given 04/22/2019 8:47 EDT 1 Tablet Given 04/21/2019 12:30 EDT 1 Tablet nafcillin 2,000 mg in sodium chloride (NS MBP) 100 mL IVPB 2,000 mg, intravenous, Administer over 30 Minutes, EVERY 4 HOURS, 42 doses, First dose on Tue03/21/19 at 0815, Last dose on Tue03/28/19 at 0600, Routine Given 03/25/2019 9:28 EDT 2,000 mg Given 03/25/2019 5:07 EDT 2,000 mg Given 03/25/2019 1:12 EDT 2,000 mg nafcillin 2,000 mg in sodium chloride (NS MBP) 50 mL IVPB 2,000 mg, intravenous, Administer over 30 Minutes, EVERY 4 HOURS, 42 doses, First dose (after last reorder) on Tue03/25/19 at 1300, Last dose on Tue04/01/19 at 1000, Routine Given 03/26/2019 5:08 EDT 2,000 mg Given 03/26/2019 1:08 EDT 2,000 mg Given 03/25/2019 22:00 EDT 2,000 mg nicotine (NICODERM CQ) 7 mg/24 hr patch 1 Patch 1 Patch, transdermal, DAILY, First dose on Tue03/19/19 at 1000, Until Discontinued, Routine Patch Applied 04/23/2019 8:46 EDT 1 Patch Left Ar m Patch Applied 04/22/2019 8:47 EDT 1 Patch Ri ght Arm Patch Applied 04/21/2019 8:29 EDT 1 Patch Le ft Arm NORepinephrine (LEVOPHED) 16 mg in dextrose 5% (D5W) 250 mL infusion 2-30 mcg/min (1.875-28.125 mL/hr, rounded to 1.9-28.1 mL/hr), intravenous, CONTINUOUS, Starting on Tue03/25/19 at 1215, Until Tue03/27/19 at 1450, Routine New Bag 03/27/2019 12:42 EDT 12 mcg/min 11.3 mL/hr Rate Documented 03/27/2019 12:00 EDT 15.04 mcg/min 14.1 mL /hr Rate Documented 03/27/2019 11:00 EDT 15.04 mcg/min 14.1 mL /hr NORepinephrine (LEVOPHED) 8 mg in D5W 250 mL infusion 2-30 mcg/min (3.75-56.25 mL/hr, rounded to 3.8-56.3 mL/hr), intravenous, CONTINUOUS, Starting on 03/17/19 at 0930, Until Tue03/19/19 at 2043, Routine Rate Documented 03/18/2019 11:00 EDT 2.987 mcg/min 5.6 mL/hr Rate Documented 03/18/2019 10:29 EDT 3 mcg/min 5.6 mL/hr Rate Documented 03/18/2019 10:00 EDT 5.013 mcg/min 9.4 mL/ hr NORepinephrine (LEVOPHED) 8 mg in D5W 250 mL infusion 2-30 mcg/min (3.75-56.25 mL/hr, rounded to 3.8-56.3 mL/hr), intravenous, CONTINUOUS, Starting on 03/20/19 at 1915, Until Rosalina 03/22/19 at 0134, Routine Rate Documented 03/21/2019 19:00 EDT 2.027 mcg/min 3.8 mL/hr Rate Change-ICU/L&D Only 03/21/2019 18:30 EDT 2 mcg/min 3 .8 mL/hr Rate Change-ICU/L&D Only 03/21/2019 18:05 EDT 3 mcg/min 5 .6 mL/hr NORepinephrine (LEVOPHED) 8 mg in D5W 250 mL infusion 2-30 mcg/min (3.75-56.25 mL/hr, rounded to 3.8-56.3 mL/hr), intravenous, CONTINUOUS, Starting on Tue03/23/19 at 1600, Until Tue03/23/19 at 1606, Routine Rate Change-ICU/L&D Only 03/23/2019 18:42 EDT 2 mcg/min 3.8 mL/hr Rate Documented 03/23/2019 18:32 EDT 4 mcg/min 7.5 mL/hr Rate Change 03/23/2019 17:30 EDT 6 mcg/min 11.3 mL/hr NORepinephrine (LEVOPHED) 8 mg in D5W 250 mL infusion 2-30 mcg/min (3.75-56.25 mL/hr, rounded to 3.8-56.3 mL/hr), intravenous, CONTINUOUS, Starting on 03/24/19 at 1030, Until 03/25/19 at 1155, Routine Rate Change-ICU/L&D Only 03/25/2019 11:01 EDT 18.987 mcg/min 35.6 mL/hr Rate Change-ICU/L&D Only 03/25/2019 10:01 EDT 20 mcg/min 3 7.5 mL/hr New Bag 03/25/2019 9:35 EDT 19 mcg/min 35.6 mL/hr NORepinephrine (LEVOPHED) 8 mg in dextrose 5% (D5W) 250 mL infusion 2-30 mcg/min (3.75-56.25 mL/hr, rounded to 3.8-56.3 mL/hr), intravenous, CONTINUOUS, Starting on 03/27/19 at 1515, Until Rosalina 03/29/19 at 1938, Routine Restarted 03/29/2019 11:00 EDT 1 mcg/min 1.9 mL/hr Rate Change-ICU/L&D Only 03/29/2019 9:20 EDT 2 mcg/min 3. 8 mL/hr Rate Change-ICU/L&D Only 03/29/2019 9:04 EDT 4 mcg/min 7. 5 mL/hr NORepinephrine (LEVOPHED) in D5W 32 mcg/ml 250 ml 8 mg/250 mL (32 mcg/mL) infusion solution 1 dose, Starting on Tue03/23/19 at 1537, Until Tue03/23/19 at 1558 nutren 1.5 liquid at 42 mL/hr, per g tube, CONTINUOUS, Starting on Rosalina 04/05/19 at 1030, Until [place] 04/12/19 at 1553, Routine Rate Documented 04/12/2019 13:00 EDT 42 mL/hr Rate Documented 04/12/2019 12:00 EDT 42 mL/hr Rate Documented 04/12/2019 11:00 EDT 42 mL/hr nutren 1.5 liquid at 45 mL/hr, per ng tube, CONTINUOUS, Starting on Tue04/12/19 at 1615, Until Tue04/16/19 at 1516, Routine New Bag 04/16/2019 12:30 EDT 45 mL/h r Rate Documented 04/16/2019 7:46 EDT 45 mL/hr Rate Documented 04/15/2019 19:00 EDT 45 mL/hr OLANZapine (ZYPREXA) intramuscular injection 10 mg 10 mg, intramuscular, NOW X1, 1 dose, On 03/17/19 at 1300, Routine Given 03/17/2019 13:44 EDT 10 mg OLANZapine (ZYPREXA) tablet 10 mg 10 mg, oral, 2 TIMES DAILY, First dose on 9/14/19 at 2100, Until Discontinued, Routine Given 03/20/2019 8:27 EDT 10 mg Given 03/19/2019 21:23 EDT 10 mg Given 03/19/2019 8:59 EDT 10 mg OLANZapine (ZYPREXA) tablet 10 mg 10 mg, oral, 2 TIMES DAILY, First dose (after last modification) on 03/26/19 at 2100, Until Discontinued, Routine Given 03/29/2019 10:00 EDT 10 mg Given 03/28/2019 20:44 EDT 10 mg Given 03/27/2019 20:08 EDT 10 mg OLANZapine (ZYPREXA) tablet 5 mg 5 mg, oral, AT BEDTIME, First dose (after last modification) on 03/20/19 at 2100, Until Discontinued, Routine Given 03/23/2019 20:04 EDT 5 mg Given 03/22/2019 20:04 EDT 5 mg Given 03/21/2019 20:03 EDT 5 mg OLANZapine (ZYPREXA) tablet 5 mg 5 mg, oral, 2 TIMES DAILY, First dose (after last modification) on 03/24/19 at 0900, Until Discontinued, Routine Given 03/26/2019 8:02 EDT 5 mg Given 03/25/2019 20:11 EDT 5 mg Given 03/25/2019 8:41 EDT 5 mg OLANZapine (ZYPREXA) tablet 5 mg 5 mg, oral, 2 TIMES DAILY, First dose (after last modification) on [place] 03/29/19 at 2100, Until Discontinued, Routine Given 04/01/2019 8:07 EDT 5 mg Given 03/31/2019 21:22 EDT 5 mg Given 03/31/2019 8:03 EDT 5 mg OLANZapine (ZYPREXA) tablet 5 mg 5 mg, oral, AT BEDTIME, First dose (after last modification) on 04/01/19 at 2100, Until Discontinued, Routine Given 04/02/2019 20:08 EDT 5 mg Given 04/01/2019 20:24 EDT 5 mg pantoprazole (PROTONIX) injection 40 mg 40 mg, intravenous, DAILY, First dose on 03/17/19 at 1300, Until Discontinued, Routine Given 03/20/2019 8:27 EDT 40 mg Given 03/19/2019 8:54 EDT 40 mg Given 03/18/2019 8:10 EDT 40 mg pantoprazole (PROTONIX) injection 40 mg 40 mg, intravenous, 2 TIMES DAILY, 61 doses, First dose on Tue03/20/19 at 2100, Last dose on Tue04/19/19 at 2100, Routine Given 04/19/2019 20:30 EDT 40 mg Given 04/19/2019 8:01 EDT 40 mg Given 04/18/2019 20:05 EDT 40 mg pantoprazole (PROTONIX) tablet 40 mg 40 mg, oral, DAILY, First dose on Tue04/20/19 at 0900, Until Discontinued, Routine Given 04/22/2019 20:02 EDT 40 mg Given 04/21/2019 8:28 EDT 40 mg Given 04/20/2019 8:37 EDT 40 mg papain-alpha amylase-cellulase (CLOG ZAPPER) 2-5 mL 2-5 mL, feeding tube, PRN, Starting on Tue03/18/19 at 0954, Until Tue04/23/19 at 1332, blocked feeding tube, Routine perative 0.067-1.30 gram-kcal/mL at 57 mL/hr, per ng tube, CONTINUOUS, Starting on Tue03/19/19 at 1245, Until 03/24/19 at 0950, Routine Rate Documented 03/24/2019 9:00 EDT 57 mL/hr Rate Documented 03/24/2019 7:00 EDT 57 mL/hr Rate Documented 03/24/2019 6:00 EDT 57 mL/hr piperacillin-tazobactam 4.5 g in sodium chloride (NS MBP) 100 mL IVPB 4.5 g, intravenous, Administer over 4 Hours, EVERY 8 HOURS, 21 doses, First dose on Tue03/17/19 at 1030, Last dose on Tue03/24/19 at 0300, Controlled antibiotic: has ID approved? No: ICU Patient, RoutineIndications:Ventilator Associated Pneumonia Given 03/19/2019 10:35 EDT 4.5 g Given 03/19/2019 3:32 EDT 4.5 g Given 03/18/2019 19:19 EDT 4.5 g piperacillin-tazobactam 4.5 g in sodium chloride (NS MBP) 100 mL IVPB 4.5 g, intravenous, Administer over 4 Hours, EVERY 8 HOURS, 21 doses, First dose on Tue03/20/19 at 1900, Last dose on Tue03/27/19 at 1100, Controlled antibiotic: has ID approved? No: ICU Patient, STATIndications:Worsening Sepsis Given 03/21/2019 3:23 EDT 4 .5 g Given 03/20/2019 18:54 EDT 4.5 g piperacillin-tazobactam 4.5 g in sodium chloride (NS MBP) 100 mL IVPB 4.5 g, intravenous, Administer over 4 Hours, EVERY 8 HOURS, 15 doses, First dose on Tue03/26/19 at 0915, Last dose on Tue03/31/19 at 0000, Controlled antibiotic: has ID approved? No: ICU Patient, STATIndications:Hospital Acquired Intra-abdominal Infection Given 03/29/2019 7:55 EDT 4.5 g Given 03/28/2019 23:49 EDT 4.5 g Given 03/28/2019 16:59 EDT 4.5 g piperacillin-tazobactam 4.5 g in sodium chloride (NS MBP) 100 mL IVPB 4.5 g, intravenous, Administer over 4 Hours, EVERY 8 HOURS, 4 doses, First dose (after last modification) on [place] 03/29/19 at 1600, Last dose on Tue03/30/19 at 1600, Controlled antibiotic: has ID approved? No: ICU Patient, STATIndications:Hospital Acquired Intra-abdominal Infection Given 03/30/2019 15:10 EDT 4.5 g Given 03/30/2019 8:19 EDT 4.5 g Given 03/29/2019 23:04 EDT 4.5 g polyethylene glycol 3350 (MIRALAX) packet 17 g 17 g, per ng tube, DAILY, First dose on Tue03/18/19 at 1315, Until Discontinued, Routine Given 03/19/2019 8:54 EDT 17 g Given 03/18/2019 13:17 EDT 17 g polyethylene glycol 3350 (MIRALAX) packet 17 g 17 g, oral, NOW X1, 1 dose, On Tue04/16/19 at 1530, Routine Given 04/16/2019 16:45 EDT 17 g polyethylene glycol 3350 (MIRALAX) packet 17 g 17 g, oral, NOW X1, 1 dose, On Tu04/17/19 at 0915, Routine Given 04/17/2019 9:21 EDT 17 g potassium chloride (KLOR-CON) packet 20 mEq 20 mEq, oral, PRN, Starting on Tue03/22/19 at 1116, Until Tue03/22/19 at 2117, Other, Routine Given 03/22/2019 1 2:02 EDT 20 mEq potassium chloride (KLOR-CON) packet 40 mEq 40 mEq, oral, NOW X1, 1 dose, On Tue03/19/19 at 1600, Routine Given 03/19/2019 15:56 EDT 40 mEq potassium chloride (KLOR-CON) packet 40 mEq 40 mEq, oral, NOW X1, 1 dose, On Tue03/19/19 at 1700, Routine Given 03/19/2019 17:16 EDT 40 mEq potassium chloride (KLOR-CON) packet 40 mEq 40 mEq, oral, EVERY 2 HOURS, 2 doses, First dose (after last reorder) on Tue03/19/19 at 2230, Last dose on Tue03/20/19 at 0000, Routine Given 03/19/2019 2 3:30 EDT 40 mEq Given 03/19/2019 22:17 EDT 40 mEq potassium chloride (KLOR-CON) packet 40 mEq 40 mEq, oral, EVERY 2 HOURS, 2 doses, First dose (after last reorder) on Tue03/20/19 at 0600, Last dose on Tue03/20/19 at 0800, Routine Given 03/20/2019 7:34 EDT 40 mE q Given 03/20/2019 6:53 EDT 40 mEq potassium chloride (KLOR-CON) packet 40 mEq 40 mEq, oral, NOW X1, 1 dose, On Tue03/22/19 at 1145, Routine Given 03/22/2019 12:01 EDT 40 mEq potassium chloride (KLOR-CON) packet 40 mEq 40 mEq, oral, 2 TIMES DAILY, First dose on Tue03/22/19 at 2130, Until Discontinued, Routine Given 03/23/2019 20:04 EDT 4 0 mEq Given 03/23/2019 9:40 EDT 40 mEq Given 03/22/2019 21:41 EDT 40 mEq potassium chloride (KLOR-CON) packet 40 mEq 40 mEq, oral, EVERY 4 HOURS, 3 doses, First dose on Tue03/24/19 at 0100, Last dose on Tue03/24/19 at 0900, Routine Given 03/24/2019 8:48 EDT 40 mEq Given 03/24/2019 5:49 EDT 40 mEq Given 03/24/2019 0:43 EDT 40 mEq potassium chloride (KLOR-CON) packet 40 mEq 40 mEq, oral, EVERY 2 HOURS, 2 doses, First dose on Tue03/27/19 at 2130, Last dose on Tue03/27/19 at 2330, Routine Given 03/27/2019 23:23 EDT 40 mEq Given 03/27/2019 22:07 EDT 40 mEq potassium chloride (KLOR-CON) packet 40 mEq 40 mEq, oral, EVERY 2 HOURS, 2 doses, First dose (after last reorder) on Tue03/29/19 at 0015, Last dose on Tue03/29/19 at 0215, Routine Given 03/29/2019 0:38 EDT 40 mE q potassium chloride (KLOR-CON) packet 40 mEq 40 mEq, oral, EVERY HOUR, 3 doses, First dose on Tue03/30/19 at 0500, Last dose on Tue03/30/19 at 0700, Routine Given 03/30/2019 6:57 EDT 40 mEq Given 03/30/2019 5:59 EDT 40 mEq Given 03/30/2019 4:59 EDT 40 mEq potassium chloride (KLOR-CON) packet 40 mEq 40 mEq, oral, NOW X1, 1 dose, On Tue03/30/19 at 1745, Routine Given 03/30/2019 17:36 EDT 40 mEq potassium chloride (KLOR-CON) packet 40 mEq 40 mEq, oral, NOW X1, 1 dose, On Tue04/01/19 at 1100, Routine Given 04/01/2019 10:53 EDT 40 mEq potassium chloride (KLOR-CON) packet 80 mEq 80 mEq, oral, NOW X1, 1 dose, On Tue03/25/19 at 1045, Routine Given 03/25/2019 10:50 EDT 80 mEq potassium chloride in water 20 mEq/100 mL infusion 1 dose, Starting on Tue03/25/19 at 1010, Until Tue03/25/19 at 1015 potassium chloride in water infusion 20 mEq 20 mEq, intravenous, at 100 mL/hr, PRN, Starting on 03/17/19 at 0903, Until Tue03/20/19 at 0146, hypokalemia, See admin instructions., Routine Given 03/19/2019 5:20 EDT 20 mEq 100 m L/hr Given 03/18/2019 3:49 EDT 20 mEq 100 mL/hr potassium chloride in water infusion 20 mEq 20 mEq, intravenous, NOW X1, 1 dose, On Tue03/19/19 at 0530, Routine Given 03/19/2019 7:26 EDT 20 mEq potassium chloride in water infusion 20 mEq 20 mEq, intravenous, EVERY HOUR, 2 doses, First dose (after last reorder) on Tue03/19/19 at 2300, Last dose on Tue03/20/19 at 0000, Routine Given 03/19/2019 2 3:30 EDT 20 mEq Given 03/19/2019 22:10 EDT 20 mEq potassium chloride in water infusion 20 mEq 20 mEq, intravenous, NOW X1, 1 dose, On Tue03/20/19 at 1600, Routine Given 03/20/2019 14:40 EDT 20 mEq potassium chloride in water infusion 20 mEq 20 mEq, intravenous, EVERY HOUR, 2 doses, First dose on [place] 03/22/19 at 2200, Last dose on [place] 03/22/19 at 2300, Routine Given 03/22/2019 22:50 EDT 20 mEq Given 03/22/2019 21:41 EDT 20 mEq potassium chloride in water infusion 20 mEq 20 mEq, intravenous, EVERY HOUR, 3 doses, First dose on [facility] 03/24/19 at 0100, Last dose on [facility] 03/24/19 at 0300, Routine Given 03/24/2019 3:30 EDT 20 mEq Given 03/24/2019 1:50 EDT 20 mEq Given 03/24/2019 0:41 EDT 20 mEq potassium chloride in water infusion 20 mEq 20 mEq, intravenous, NOW X1, 1 dose, On [place] 03/25/19 at 1045, Routine Given 03/25/2019 10:15 EDT 20 mEq potassium chloride in water infusion 20 mEq 20 mEq, intravenous, PRN, Starting on Tue03/25/19 at 2007, Until Tue04/23/19 at 1332, hypokalemia, Routine Given 04/06/2019 5:00 EDT 20 mEq Given 04/04/2019 6:16 EDT 20 mEq Given 04/03/2019 5:05 EDT 20 mEq potassium chloride in water infusion 20 mEq 20 mEq, intravenous, EVERY 2 HOURS, 4 doses, First dose on Tue03/27/19 at 1000, Last dose on Tue03/27/19 at 1600, Routine Given 03/27/2019 16:11 EDT 20 mEq Given 03/27/2019 14:46 EDT 20 mEq Given 03/27/2019 11:19 EDT 20 mEq potassium chloride in water infusion 20 mEq 20 mEq, intravenous, EVERY 2 HOURS, 3 doses, First dose on Tue03/28/19 at 1200, Last dose on Tue03/28/19 at 1600, Routine Given 03/28/2019 16:59 EDT 20 mEq Given 03/28/2019 15:52 EDT 20 mEq Given 03/28/2019 13:55 EDT 20 mEq potassium chloride in water infusion 20 mEq 20 mEq, intravenous, EVERY 2 HOURS, 3 doses, First dose (after last reorder) on [place] 03/29/19 at 1015, Last dose on [place] 03/29/19 at 1400, Routine Given 03/29/2019 14:41 EDT 20 mEq Given 03/29/2019 12:49 EDT 20 mEq Given 03/29/2019 11:26 EDT 20 mEq potassium chloride in water infusion 20 mEq 20 mEq, intravenous, EVERY HOUR, 2 doses, First dose on Tue04/01/19 at 1100, Last dose on Tue04/01/19 at 1200, Routine Given 04/01/2019 13:00 EDT 20 mEq Given 04/01/2019 11:26 EDT 20 mEq potassium phosphate 3 mMol/mL oral solution 15 mmol 15 mmol, oral, 2 TIMES DAILY, First dose on [place] 03/29/19 at 1445, Until Discontinued, STAT Given 04/02/2019 8:02 EDT 15 mm ol Given 04/01/2019 22:14 EDT 15 mmol Given 04/01/2019 9:02 EDT 15 mmol potassium phosphate 3 mMol/mL oral solution 15 mmol 15 mmol, oral, DAILY PRN, Starting on Tue04/02/19 at 1345, Until Tue04/23/19 at 1332, Other, PO4 < 2.5, Routine propOFol (DIPRIVAN) 10 mg/mL injection 1 dose, Starting on Tue03/18/19 at 0741, Until Tue03/18/19 at 0748 propOFol (DIPRIVAN) 1000 mg in 100 mL infusion 5-83 mcg/kg/min ? 70 kg (2.1-34.86 mL/hr, rounded to 2.1-34.9 mL/hr), intravenous, CONTINUOUS, Starting on 03/17/19 at 0930, Until 03/17/19 at 2352, Routine Rate Documented 03/17/2019 16:00 EDT 40 mcg/kg/min 16.8 mL/hr Restarted 03/17/2019 15:50 EDT 40 mcg/kg/min 16.8 mL/hr Rate Documented 03/17/2019 15:00 EDT 30 mcg/kg/min 12.6 mL /hr propOFol (DIPRIVAN) 1000 mg in 100 mL infusion 5-83 mcg/kg/min ? 70 kg (2.1-34.86 mL/hr, rounded to 2.1-34.9 mL/hr), intravenous, CONTINUOUS, Starting on 03/18/19 at 0800, Until 03/19/19 at 1323, Routine Rate Documented 03/18/2019 8:00 EDT 20 mcg/kg/min 8.4 mL/hr New Bag 03/18/2019 7:48 EDT 20 mcg/kg/min 8.4 mL/hr propOFol (DIPRIVAN) 1000 mg in 100 mL infusion 5-83 mcg/kg/min ? 70.4 kg (2.112-35.0592 mL/hr, rounded to 2.1-35.1 mL/hr), intravenous, CONTINUOUS, Starting on 03/19/19 at 1345, Until Tu03/20/19 at 1953, Routine Rate Documented 03/20/2019 14:00 EDT 30.066 mcg/kg/min 12.7 mL/hr Rate Change 03/20/2019 13:39 EDT 30 mcg/kg/min 12.7 mL/hr Rate Documented 03/20/2019 12:00 EDT 40.009 mcg/kg/min 16. 9 mL/hr propOFol (DIPRIVAN) 1000 mg in 100 mL infusion 5-83 mcg/kg/min ? 70.4 kg (2.112-35.0592 mL/hr, rounded to 2.1-35.1 mL/hr), intravenous, CONTINUOUS, Starting on [place] 03/22/19 at 0945, Until Tue04/03/19 at 0852, Routine Rate Documented 04/02/2019 12:00 EDT 5.919 mcg/kg/min 2.5 mL/hr Rate Documented 04/02/2019 11:00 EDT 5.919 mcg/kg/min 2.5 mL/hr Rate Documented 04/02/2019 10:00 EDT 5.919 mcg/kg/min 2.5 mL/hr psyllium husk-aspartame (METAMUCIL) 3.4 gram/5.8 gram packet 1 Packet, oral, 3 TIMES DAILY, First dose on Tue04/03/19 at 0945, Until Discontinued, Routine Given 04/05/2019 8:24 EDT 1 Packet Given 04/04/2019 20:46 EDT 1 Packet Given 04/04/2019 14:50 EDT 1 Packet psyllium husk-aspartame (METAMUCIL) 3.4 gram/5.8 gram packet 1 Packet, oral, 2 TIMES DAILY, First dose (after last modification) on [place] 04/05/19 at 2100, Until Discontinued, Routine Given 04/05/2019 20:02 EDT 1 Packet psyllium husk-aspartame (METAMUCIL) 3.4 gram/5.8 gram packet 1 Packet, oral, DAILY, First dose on Tue04/11/19 at 1030, Until Discontinued, Routine Given 04/12/2019 9:22 EDT 1 Packet Given 04/11/2019 11:27 EDT 1 Packet replete nutritional supplement liquid at 50 mL/hr, per g tube, CONTINUOUS, Starting on 03/18/19 at 1015, Until 03/19/19 at 1227, Routine Rate Documented 03/19/2019 12:18 EDT 50 mL/hr New Bag 03/19/2019 12:00 EDT 50 mL/hr Rate Documented 03/19/2019 11:00 EDT 50 mL/hr replete nutritional supplement liquid at 70 mL/hr, per g tube, CONTINUOUS, Starting on 03/24/19 at 1015, Until 03/26/19 at 1207, Routine Rate Documented 03/26/2019 9:00 EDT 70 mL/hr Rate Change 03/26/2019 8:27 EDT 70 mL/hr Rate Documented 03/26/2019 8:00 EDT 40 mL/hr replete nutritional supplement liquid at 70 mL/hr, per g tube, CONTINUOUS, Starting on Tue 24/19 at 1000, Until Tue03/27/19 at 1028, Routine Rate Documented 03/27/2019 10:00 EDT 30 mL/hr New Bag 03/27/2019 9:38 EDT 30 mL/hr replete nutritional supplement liquid at 70 mL/hr, per g tube, CONTINUOUS, Starting on Tue03/27/19 at 1215, Until Tue03/27/19 at 1204, Routine Rate Documented 03/27/2019 12:00 EDT 30 mL/hr Restarted 03/27/2019 11:49 EDT 30 mL/hr replete nutritional supplement liquid at 70 mL/hr, per g tube, CONTINUOUS, Starting on Tue03/27/19 at 1230, Until Tue03/28/19 at 0137, Routine Rate Documented 03/28/2019 0:00 EDT 70 mL/hr Rate Documented 03/27/2019 23:00 EDT 70 mL/hr Rate Documented 03/27/2019 22:00 EDT 70 mL/hr replete nutritional supplement liquid at 70 mL/hr, per g tube, CONTINUOUS, Starting on Tue03/28/19 at 1515, Until Tue03/29/19 at 0508, Routine Rate Documented 03/29/2019 3:00 EDT 70 mL/hr Rate Documented 03/29/2019 2:00 EDT 70 mL/hr Rate Documented 03/29/2019 1:00 EDT 70 mL/hr replete nutritional supplement liquid at 70 mL/hr, per g tube, CONTINUOUS, Starting on Tue03/29/19 at 1000, Until Tue03/29/19 at 2259, Routine Rate Documented 03/29/2019 23:00 EDT 70 mL/hr Rate Documented 03/29/2019 22:00 EDT 70 mL/hr Rate Documented 03/29/2019 21:00 EDT 70 mL/hr replete nutritional supplement liquid at 70 mL/hr, per g tube, CONTINUOUS, Starting on Tue03/30/19 at 0100, Until Tue04/05/19 at 1024, Routine Rate Documented 04/05/2019 10:00 EDT 70 mL/hr Rate Documented 04/05/2019 9:00 EDT 70 mL/hr Rate Documented 04/05/2019 8:00 EDT 70 mL/hr senna (SENOKOT) tablet 2 Tab 2 Tablet, oral, 2 TIMES DAILY PRN, Starting on 03/17/19 at 0903, Until 04/16/19 at 1507, Constipation, Routine Given 03/18/2019 10:40 EDT 2 Tablets senna (SENOKOT) tablet 2 Tab 2 Tablet, oral, AT BEDTIME, First dose (after last modification) on 04/16/19 at 2100, Until Discontinued, Routine Given 04/19/2019 20:29 EDT 2 Tablets Given 04/18/2019 20:05 EDT 2 Tablets Given 04/17/2019 21:38 EDT 2 Tablets sennosides (SENOKOT) syrup 17.6 mg 17.6 mg (10 mL), per ng tube, AT BEDTIME, First dose (after last modification) on 04/16/19 at 2100, Until Discontinued, Routine sodium bicarbonate 8.4 % (1 mEq/mL) injection 100 mEq 100 mEq, intravenous, NOW X1, 1 dose, On 03/17/19 at 1000, Routine Given 03/17/2019 9:43 EDT 100 mEq sodium bicarbonate 8.4 % (1 mEq/mL) injection 50 mEq 50 mEq, intravenous, NOW X1, 1 dose, On 03/17/19 at 1230, Routine Given 03/17/2019 11:00 EDT 50 mEq sodium bicarbonate 8.4 % (1 mEq/mL) injection 50 mEq 50 mEq, intravenous, NOW X1, 1 dose, On 03/17/19 at 1715, Routine Given 03/17/2019 16:59 EDT 50 mEq sodium bicarbonate 8.4 % injection 50 mEq 50 mEq, intravenous, NOW X1, 1 dose, On 03/17/19 at 1730, Routine Given 03/17/2019 17:21 EDT 50 mEq sodium bicarbonate 8.4 % injection 1 dose, Starting on 03/17/19 at 1655, Until 03/17/19 at 1721 sodium chloride 0.9 % (flush) flush 10 mL 10 mL, intercatheter, WEEKLY, First dose on Tue03/23/19 at 0945, Until Discontinued, Routine Given 04/20/2019 8:53 EDT 10 mL Given 04/13/2019 8:27 EDT 10 mL Given 04/06/2019 9:45 EDT 10 mL sodium chloride 0.9 % (flush) flush 10 mL 10 mL, intercatheter, WEEKLY, First dose on Tue04/06/19 at 1630, Until Discontinued, Routine Given 04/06/2019 16:14 EDT 10 mL sodium chloride 0.9 % (NS) infusion at 10 mL/hr, intravenous, CONTINUOUS, Starting on Tue03/17/19 at 1815, Until Tue03/20/19 at 0943, Routine Rate Documented 03/19/2019 16:00 EDT 10 mL /hr Rate Documented 03/19/2019 15:00 EDT 10 mL/hr Rate Documented 03/19/2019 14:00 EDT 10 mL/hr sodium chloride 0.9 % (NS) infusion 10 mL/hr, intravenous, CONTINUOUS, Starting on Tue03/21/19 at 1245, Until Tue04/08/19 at 1444, Routine Rate Documented 04/03/2019 11:00 EDT 10 mL/hr 10 mL /hr Rate Documented 04/03/2019 10:00 EDT 10 mL/hr 10 mL/hr Rate Documented 04/03/2019 9:00 EDT 10 mL/hr 10 mL/hr thiamine (VITAMIN B-1) 200 mg in sodium chloride (NS) 0.9 % 50 mL IVPB 200 mg, intravenous, Administer over 15 Minutes, EVERY 12 HOURS, First dose on Tue03/17/19 at 1200, Until Discontinued, Routine Given 03/19/2019 23:30 EDT 2 00 mg Given 03/19/2019 12:18 EDT 200 mg Given 03/19/2019 0:56 EDT 200 mg thiamine (VITAMIN B-1) 200 mg in sodium chloride (NS) 0.9 % 50 mL IVPB 200 mg, intravenous, Administer over 15 Minutes, EVERY 12 HOURS, First dose on Tue03/26/19 at 1400, Until Discontinued, Routine Given 03/30/2019 3:54 EDT 200 mg Given 03/29/2019 18:14 EDT 200 mg Given 03/29/2019 4:15 EDT 200 mg tranexamic acid (CYKLOKAPRON) 3,000 mg in sodium chloride (NS) 0.9 % 1,000 mL custom infusion at 41.7 mL/hr, intravenous, CONTINUOUS, Starting on Tue03/20/19 at 2100, Until Tue03/21/19 at 2113, STAT Rate Documented 03/21/2019 21:00 EDT 41.7 mL/ hr Rate Documented 03/21/2019 20:00 EDT 41.7 mL/hr Rate Documented 03/21/2019 19:00 EDT 41.7 mL/hr tranexamic acid (CYKLOKAPRON) injection 1,000 mg 1,000 mg (1 g), intravenous, NOW X1, 1 dose, On Tue03/20/19 at 2045, STAT Given 03/20/2019 20:40 EDT 1,000 mg vancomycin (VANCOCIN) IVPB 1,000 mg 1,000 mg (rounded from 1,056 mg = 15 mg/kg ? 70.4 kg), intravenous, Administer over 60 Minutes, NOW X1, 1 dose, On Tue03/20/19 at 1900, STATIndications:Sepsis Given 03/20/2019 20:08 EDT 1,000 mg vasopressin (VASOSTRICT) 20 Units in dextrose 5% (D5W) 100 mL infusion 0.03 Units/min (9 mL/hr), intravenous, CONTINUOUS, Starting on [facility] 03/17/19 at 1015, Until Tue03/19/19 at 0647, Routine Rate Documented 03/19/2019 1:00 EDT 0.01 Units/min 3 mL/hr Rate Documented 03/19/2019 0:00 EDT 0.01 Units/min 3 mL/hr Rate Documented 03/18/2019 23:00 EDT 0.01 Units/min 3 mL/h r vasopressin (VASOSTRICT) 20 Units in dextrose 5% (D5W) 100 mL infusion 0.03 Units/min (9 mL/hr), intravenous, CONTINUOUS, Starting on Tue03/20/19 at 2015, Until Tue03/22/19 at 0921, STAT Rate Documented 03/22/2019 4:00 EDT 0.01 Units/min 3 mL/h r Rate Documented 03/22/2019 3:00 EDT 0.01 Units/min 3 mL/hr Rate Documented 03/22/2019 2:00 EDT 0.01 Units/min 3 mL/hr Wool Alcoh-Min Akw-Qagrd-Bxdhv (EUCERIN) cream topical, PRN, Starting on [place] 04/12/19 at 0848, Until 04/23/19 at 1332, Dry Skin Given 04/16/2019 8:07 EDT zinc sulfate (ZINCATE) capsule 220 mg 220 mg, per g tube, DAILY, First dose on 04/15/19 at 1415, Until Discontinued, Routine Given 04/22/2019 20:02 E DT 220 mg Given 04/21/2019 8:29 EDT 220 mg Given 04/20/2019 8:37 EDT 220 mg documented in this encounter Active and Recently Administered Medications Times are shown in EDT. Scheduled Medication Order 04/21/2019 04/22/2019 04/23/2019 ascorbic acid (vitamin C) (VITAMIN C) tablet 250 mg 250 mg, per g tube, DAILY, First dose on 04/15/19 at 1415, Until Discontinued, Routine 0828 (Given - Provider: Jewels Rosa RN)2100 (Canceled Entry - Provider: Viki Chery Su - Comment: Received at 0828 this morning. Retimed for 2100 starting tomorrow.) 2001 (Given - Provider: Elvin Barry RN) cholecalciferol (Vitamin D3) tablet 1,000 Units 1,000 Units, oral, DAILY, First dose on Tue04/10/19 at 0900, Until Discontinued, Routine 0828 (Given - Provider: Jewels Rosa RN)2100 (Canceled Entry - Provider: Viki Chery RPH - Comment: Given this morning. Retimed for 2100 starting tomorrow night.) 2001 (Given - Provider: Elvin Barry RN) collagenase (SANTYL) ointment topical, DAILY, First dose on Tue04/13/19 at 1145, Until Discontinued 0829 (Given - Provider: Jewels Rosa RN)2006 (Not Given - Provider: Elvin Barry RN - Reason: Patient/family refused) 2039 (Given - Provider: Elvin Barry, JORGE) diphenhydrAMINE (BENADRYL) capsule 25 mg (COMPLETED) 25 mg, oral, NOW X1, 1 dose, On Tue04/23/19 at 1200, Routine 1201 (Given - Provider: Sheila Tapia) enoxaparin (LOVENOX) injection 40 mg 40 mg, subcutaneous, DAILY, First dose on Tue03/30/19 at 0900, Until Discontinued, Routine 0829 (Given - Provider: Jewels Gonyea, RN) 0847 (Given - Provider: Jewels Rosa RN) 0846 (Given - Provider: Sheila Tapia) ferrous sulfate EC tablet 324 mg 324 mg, oral, DAILY WITH BREAKFAST, First dose on Tue04/17/19 at 0800, Until Discontinued, Routine 0829 (Given - Provider: Jewels Rosa RN)2100 (Canceled Entry - Provider: Viki Chery [facility] - Comment: Given this morning. Retimed for 2100 starting tomorrow night.) 2001 (Given - Provider: Elvin Barry RN) guaiFENesin (MUCINEX) SR tablet 600 mg 600 mg, oral, 2 TIMES DAILY, First dose on Rosalina 04/12/19 at 2100, Until Discontinued, Routine 08 (Given - Provider: Jewels Rosa RN)2005 (Given - Provider: Elvin Barry RN) 0848 (Given - Provider: Jewels Rosa RN)2001 (Given - Provider: Elvin Barry RN) 0843 (Given - Provider: Sheila Tapia) ipratropium-albuterol (DUONEB) 0.5 mg-3 mg(2.5 mg base)/3 mL nebulizer solution 3 mL (CANCELED) 3 mL, nebulization, 3 TIMES DAILY, First dose (after last modification) on Tue04/18/19 at 0915, Until Discontinued, Routine 729 (Given - Provider: Jatin Taylor RT) ipratropium-albuterol (DUONEB) 0.5 mg-3 mg(2.5 mg base)/3 mL nebulizer solution 3 mL 3 mL, nebulization, 2 TIMES DAILY, First dose (after last modification) on 04/21/19 at 2100, Until Discontinued, Routine 2107 (Given - Provider: Yelena Vasquez RT) 08 (Given - Provider: Quynh Singer RT)2018 (Given - Provider: Yelena Vasquez RT) 0742 (Given - Provider: Frank Garzon, RT)0900 (Canceled Entry - Provider: Frank Garzon RT) melatonin tablet 5 mg 5 mg, oral, AT BEDTIME, First dose on 03/17/19 at 2100, Until Discontinued, Routine 2004 (Given - Provider: Elvin Barry RN) 2001 (Given - Provider: Elvin Barry RN) metoprolol (LOPRESSOR) tablet 12.5 mg 12.5 mg, oral, 2 TIMES DAILY, First dose on Tue04/16/19 at 1030, Until Discontinued, Routine 0828 (Given - Provider: Jewels Rosa RN)2004 (Given - Provider: Elvin Barry RN) 0848 (Given - Provider: Jewels Rosa RN)2001 (Given - Provider: Elvin Barry RN) 0844 (Given - Provider: Sheila Tapia) Multivitamins with Minerals tablet 1 Tab 1 Tablet, oral, DAILY, First dose on Tue04/21/19 at 1215, Until Discontinued, Routine 1230 (Given - Provider: Jewels Rosa RN) 0847 (Given - Provider: Jewels Rosa RN) 0844 (Given - Provider: Sheila Tapia) nicotine (NICODERM CQ) 7 mg/24 hr patch 1 Patch 1 Patch, transdermal, DAILY, First dose on Tue03/19/19 at 1000, Until Discontinued, Routine 0829 (Patch Applied - Provider: Jewels Rosa RN)2006 (Patch Removed - Provider: Elvin Barry RN) 0847 (Patch Applied - Provider: Jewels Rosa RN)2099 (Patch Removed - Provider: Elvin Barry RN) 0846 (Patch Applied - Provider: Sheila Tapia)2099 (Due: Patch Removed - Provider: Sheila Tapia) pantoprazole (PROTONIX) tablet 40 mg 40 mg, oral, DAILY, First dose on Tue04/20/19 at 0900, Until Discontinued, Routine 0828 (Given - Provider: Jewels Rosa RN)2100 (Canceled Entry - Provider: Viki Chery [facility] - Comment: Already given today. Retimed to 2100 starting tomorrow night) 2001 (Given - Provider: Elvin Barry RN) senna (SENOKOT) tablet 2 Tab(Linked Group 1) 2 Tablet, oral, AT BEDTIME, First dose (after last modification) on Tue04/16/19 at 2100, Until Discontinued, Routine 2005 (Not Given - Provider: Elvin Barry RN - Reason: Patient/family refused) 2039 (Not Given - Provider: Elvin Barry RN - Reason: Patient/family refused) sennosides (SENOKOT) syrup 17.6 mg(Linked Group 1) 17.6 mg (10 mL), per ng tube, AT BEDTIME, First dose (after last modification) on Tue04/16/19 at 2100, Until Discontinued, Routine 2005 (See Alternative - Provider: Elvin Barry, JORGE) 2039 (See Alternative - Provider: Elvin Barry, JORGE) sodium chloride 0.9 % (flush) flush 10 mL 10 mL, intercatheter, WEEKLY, First dose on Tue03/23/19 at 0945, Until Discontinued, Routine zinc sulfate (ZINCATE) capsule 220 mg 220 mg, per g tube, DAILY, First dose on Tue04/15/19 at 1415, Until Discontinued, Routine 0829 (Given - Provider: Jewels Rosa RN)2099 (Canceled Entry - Provider: Viki Chery [facility] - Comment: Already given this morning. Retimed for 2100 starting tomorrow night,) 2001 (Given - Provider: Elvin Barry RN) Continuous Medication Order 04/21/2019 04/22/2019 04/23/2019 impact peptide 1.5 0.09 gram- 1.5 kcal/mL at 75 mL/hr, per ng tube, CONTINUOUS, Starting on Tue04/16/19 at 1900, Until Tue04/23/19 at 1332, Administer over 14 Hours, Routine 0744 (Rate Documented - Provider: Jewels Rosa, JORGE) PRN Medication Order 04/21/2019 04/22/2019 04/23/2019 acetaminophen (TYLENOL) solution unit dose cup 995 mg 995 mg (rounded from 1,000 mg), oral, EVERY 8 HOURS PRN, Starting on Tue04/14/19 at 2121, Until Tue04/23/19 at 1332, Pain, Routine albuterol (ACCUNEB) nebulizer solution 2.5 mg 2.5 mg, nebulization, EVERY 4 HOURS PRN, Starting on Tue04/13/19 at 1219, Until Tue04/23/19 at 1332, Wheezing, Routine alteplase (CATHFLO ACTIVASE) injection 2 mg 2 mg, intercatheter, PRN, Starting on Tue04/06/19 at 1151, Until Tue04/23/19 at 1332, Line Care, Routine clonazePAM (KLONOPIN) tablet 0.5 mg 0.5 mg, oral, 2 TIMES DAILY PRN, Starting on Tue04/06/19 at 1100, Until Tue04/23/19 at 1332, Anxiety, Routine dextrose 50 % solution 12.5-25 g 12.5-25 g, intravenous, PRN, Starting on Tue03/21/19 at 1221, Until Tue04/23/19 at 1332, Low Blood Sugar, Routine magnesium sulfate 2g in D5W 50 ml 2 g, intravenous, Administer over 30 Minutes, PRN, Starting on Tue03/26/19 at 1324, Until Tue04/23/19 at 1332, Routine papain-alpha amylase-cellulase (CLOG ZAPPER) 2-5 mL 2-5 mL, feeding tube, PRN, Starting on Tue03/18/19 at 0954, Until Tue04/23/19 at 1332, blocked feeding tube, Routine potassium chloride in water infusion 20 mEq 20 mEq, intravenous, PRN, Starting on Tue03/25/19 at 2007, Until Tue04/23/19 at 1332, hypokalemia, Routine potassium phosphate 3 mMol/mL oral solution 15 mmol 15 mmol, oral, DAILY PRN, Starting on Tue04/02/19 at 1345, Until Tue04/23/19 at 1332, Other, PO4 < 2.5, Routine Wool Alcoh-Min Ill-Vqrwh-Dudtw (EUCERIN) cream topical, PRN, Starting on Tue04/12/19 at 0848, Until Tue04/23/19 at 1332, Dry Skin Linked Groups Order Group 1: senna (SENOKOT) tablet 2 TabJump to med 2 Tablet, oral, AT BEDTIME, First dose (after last modification) on Tue04/16/19 at 2100, Until Discontinued, Routine Or sennosides (SENOKOT) syrup 17.6 mgJump to med 17.6 mg (10 mL), per ng tube, AT BEDTIME, First dose (after last modification) on Tue04/16/19 at 2100, Until Discontinued, Routine documented in this encounter Orders Medications Ordered That Yosi ht Not Have Been Administered Count Last Ordered Date First Ordered Date ipratropium-albuterol (DUONE B) 0.5 mg-3 mg(2.5 mg base)/3 mL nebulizer solution 3 mL 2 04/17/2019 04/13/2019 sennosides (SENOKOT) syrup 17.6 mg 2 201803/17/2019 acetaminophen (TYLENOL) solu tion unit dose cup 995 mg 1 04/14/2019 albuterol (ACCUNEB) nebulize r solution 2.5 mg 2 04/13/2019 cefTRIAXone (ROCEPHIN) 1,000 mg in sodium chloride (NS MBP) 50 mL IVPB 1 04/13/2019 predniSONE (DELTASONE) tablet 20 mg 1 04/13 sodium chloride 0.9 % (flush) flush 10 mL 2 04/06/2019 03/23/2019 sodium chloride 0.9 % (flush) flush 20 mL 2 04/06/2019 03/23/2019 clonazePAM (KLONOPIN) tablet 0.5 mg 1 04/05 potassium phosphate 3 mMol/m L oral solution 15 mmol 1 04/02/2019 potassium chloride in water infusion 20 mEq 1 04/01/2019 furosemide (LASIX) injection 60 mg 2 201803/22/2019 potassium, sodium phosphates (PHOS-NAK) 280-160-250 mg packet 16 mmol 1 03/29/2019 NORepinephrine (LEVOPHED) in D5W 32 mcg/ml 250 ml 8 mg/250 mL (32 mcg/mL) infusion solution 2 03/27/2019 03/26/2019 magnesium sulfate 2g in D5W 50 ml 3 019 03/17/2019 potassium chloride (KLOR-CON ) packet 40 mEq 2 03/25/2019 03/20/2019 alteplase (CATHFLO ACTIVASE) injection 2 mg 2 03/24/2019 03/22/2019 calcium carbonate (TUMS) 200 mg calcium (500 mg) per chewable tablet tablet,chewable 2 Tab 1 03/24/2019 ipratropium-albuterol (DUONE B) 0.5 mg-3 mg(2.5 mg base)/3 mL nebulizer solution 1 03/23/2019 ketAMINE (KETALAR) 500 mg in sodium chloride (NS) 0.9 % 100 mL pediatric infusion 1 03/23/2019 glucagon injection 1 mg 2 03/22/201903/04 potassium chloride SA (K-DUR ) tablet 40 mEq 1 03/22/2019 dextrose 5 % (D5W) infusion 03/21/2019 dextrose 50 % solution 12.5-25 g 1 03/21/20 19 insulin regular (HUMULIN R, NOVOLIN R) 2 Units bolus infusion 1 03/21/2019 amiodarone in dextrose 150 m g/100 mL (1.5 mg/mL) IV bolus 1 03/20/2019 amiodarone in dextrose 360 m g/200 mL (1.8 mg/mL) infusion 03/20/2019 ceFAZolin (ANCEF) 1,000 mg i n sodium chloride (NS MBP) 50 mL IVPB 1 03/20/2019 ceftaroline fosamil 400 mg i n sodium chloride (NS) 0.9 % 50 mL IVPB 1 03/20/2019 fentanyl (SUBLIMAZE) in NS 2000 mcg/100 mL 1 03/20/2019 heparin 1,000 unit/mL inject ion 2,800 Units 03/20/2019 heparin 1,000 unit/mL inject ion 5,600 Units 1 03/20/2019 LORazepam (ATIVAN) 2 mg/mL injection 2 03/04 OLANZapine (ZYPREXA) tablet 10 mg 1 019 phenylephrine HCl in 0.9% Na Cl (NEO_SYNEPHRINE) 20 mg/250 mL (80 mcg/mL) infusion solution 1 03/20/2019 potassium chloride in water 20 mEq/100 mL infusion 1 03/20/2019 tranexamic acid (CYKLOKAPRON ) injection 3,000 mg 1 03/20/2019 papain-alpha amylase-cellula se (CLOG ZAPPER) 2-5 mL 1 03/18/2019 azithromycin (ZITHROMAX) 500 mg in dextrose 5% (D5W) 150 mL IVPB 1 03/17/2019 calcium chloride 100 mg/mL (10 %) syringe 1 03/17/2019 calcium gluconate 100 mg/mL (10%) injection 1,000 mg 1 03/17/2019 dextrose 50 % solution 12.5 g 1 03/17/2019 polyethylene glycol 3350 (VA RALAX) packet 17 g 1 03/17/2019 sodium bicarbonate 8.4 % injection 2 2018 vecuronium (NORCURON) 10 mg injection 1 Lab Orders Without Results Count Last Ordered D ate First Ordered Date POCT BLOOD GAS, G3 I-STAT (BASIC ABG VBG) 9 04/13/2019 03/17/2019 POCT GLUCOSE, GLUCOMETER 4 04/02/2019 Diet Count Last Ordered Date First Orde red Date DISCHARGE DIET 2 04/23/2019 Nursing Count Last Ordered Date First Orde red Date ACTIVITY INSTRUCTIONS 2 04/23/2019 PARK CATHETER - DISCONTINUE 1 04/08/2019 REMOVE ARTERIAL LINE 1 03/29/2019 NURSING COMMUNICATION 2 03/27/2019 MEASURE WEIGHT 2 03/25/2019 03/22/2019 NURSING IV THERAPY -?CENTRAL LINE CARE 1 03/23/2019 NURSING IV THERAPY-BLOOD DRAW 1 03/23/2019 WOUND/DRESSING CHANGE 1 03/23/2019 DISCONTINUE SALINE LOCK/IV 1 03/21/2019 DAILY WEIGHTS 1 03/19/2019 ELEVATE HEAD OF BED 1 03/18/2019 HEIGHT AND WEIGHT 1 03/17/2019 NOTIFY PHYSICIAN (SPECIFY) 1 03/17/2019 STRICT INTAKE AND OUTPUT 1 03/17/2019 VTE PHARMACOLOGIC PROPHYLAXI S CURRENTLY ORDERED OR ON ALTERNATIVE THER 1 03/17/2019 Consult Count Last Ordered Date First Orde red Date CONSULT NUTRITION 1 03/18/2019 PT Count Last Ordered Date First Orde red Date PT EVALUATION AND TREAT 1 04/01/2019 Respiratory Care Count Last Ordered Date First Ordered Date NEBULIZER TX INTERMITTENT 14 04/23/2019 RESPIRATORY CARE EVALUATION ONLY 49 04/20/20 19 04/12/2019 AIRWAY CLEARANCE THERAPY 5 04/13/2019 IV Count Last Ordered Date First Orde red Date IV REQUEST 11 04/23/2019 03/24/2019 REMOVE PICC LINE 2 04/23/2019 04/06/2019 PICC FORESTRY SUPPORT SPECIALIST 1 03/24/2019 REMOVE CENTRAL CATHETER 1 03/23/2019 CONTINUE CENTRAL CATHETER 1 03/20/2019 Admission Count Last Ordered Date First Orde red Date STATUS: INPATIENT ACUTE ADMISSION 1 019 Transfer Count Last Ordered Date First Orde red Date CHANGE ATTENDING TO: 3 04/23/2019 019 NOTIFY PPS OF DISCHARGE COMPLETE 1 04/23/20 19 PPS NOTIFICATION OF PATIENT ARRIVAL ON UNIT 3 04/14/2019 04/12/2019 TRANSFER PATIENT 2 04/14/2019 04/12/2019 NOTIFY PPS OF ROOM CHANGE COMPLETE 1 2018 UR PATIENT STATUS CHANGE 1 03/17/2019 Discharge Count Last Ordered Date First Orde red Date DISCHARGE PATIENT 1 04/23/2019 Legal Count Last Ordered Date First Orde red Date MISCELLANEOUS DISCHARGE INSTRUCTIONS 11 04/04 documented in this encounter Care Teams Circular Ripsaw Operator Relationship Specialty Start Date End Date Unknown, Provider, PCP - General 05/25/15 04/23/19 documented as of this encounter
--- OUTSIDE RECORDS SUMMARY | 2024-07-11 18:27 | XMS_ITS | Encounter Summary ---
Author Organization [facility] Address [address] [place] [address] Care Team Providers Care Resizer Operator Name Role Phone Unavailable Primary Care Provider Unavailabl e Encounter Details Date Type Department Care Team (Late st Contact Info) Description 03/17/2007 Results Only [facility] [place] conversion [address] [place] [address] Manfred Frank, DO [address] [facility] BHAVANI CABRERA [address] [place] [address] [phone] Social History Tobacco Use Types Packs/Day Years [...] Date/Time Associated Diagnosis Comments SURGICAL PATHOLOGY Routine 03/17/2007 0:00 EDT documented in this encounter Results * SURGICAL PATHOLOGY (03/17/2007 0:00 EDT) Pathology Report: SURGICAL PATHOLOGY REPORT Reports generated via electronic interface contain original data; however they are lacking the format of the original report. Caution should be taken when reading/interpreti ng unformatted reports. Name: ? ANIL BRYAN ? Accession #: ? [id number] ? : ? 1955 (Age: 52) ??M ? Collect Date: ? 03/17/2007 ? Location: ? [facility] ? Receive Date: ? 03/17/2007 ? Provider: MANFRED FRANK DO Copy to: RENNY MILES ANODE CREW SUPERVISOR ? Final Pathologic Diagnosis: ? Skin of face, right side, excisional biopsy: 1. ?Basal cell carcinoma, nodular type. ? - ??Basal cell carcinoma present within 0.1 mm of peripheral margin. ??See comment. ? 2. ?? Incidental melanocytic nevus, intradermal type. ? - Melanocytic nevus extends to peripheral margin of excision specimen. Comment: ? The excision consists of a central basal cell carcinoma with a nodular growth pattern and overlying epidermal ulceration. ??Although the basal cell carcinoma is not transected at the inked margin, it is present within 0.1 mm of the margin in one of the central sections. [facility] Microscopic Description: ? Irregularly shaped islands of atypical basal cells infiltrate the dermis. The basal cells have scant cytoplasm and round dark nuclei. ??Mitotic figures and apoptotic bodies are evident. ??The nuclei at the periphery of the islands have a palisaded arrangement. 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 [facility]and[facility] Document reviewed and electronically signed by: Theresa Fernandes MD Report ??Date: 03/20/2007 15:24 By the signature above, the attending physician certifies that he/she has personally conducted a gross and/or microscopic examination of the described specimens and rendered or confirmed the above diagnosis. Specimen(s) Received: ? Skin lesion Clinical History: ? Skin lesion right side of face Gross Description: ? Received in formalin labelled Bryan and skin lesion right side of face is a 1.6 x 0.9 cm elliptical excision of skin with tissue to a depth of 0.3 cm. On the epidermal surface is a raised irregular 0.8 cm in diameter dark brown to pale brown papule. ??The resection surface is inked and the specimen is cross sectioned. ??The tips are submitted as (A1) ??reverse en face and the remaining cross sections are submitted as (A2). [facility] End of Report JERROD RODRIGUEZ 03/17/2007 03/17/2007 15: 05 EDT us Manfred Frank DO PATHOLOGY ORDERABLES Fi nal Result Performing Organization Address City/State/[facility] Co de Phone Number JERROD RODRIGUEZ [address] [place] [address] documented in this encounter Visit Diagnoses Not on filedocumented in this encounter
[2024-07-11 21:19] LABS: Abs Immature Grans 0.02 10^3/uL (0.0-0.06); Absolute Basophil Count 0.08 10^3/uL (0.0-0.2); Absolute Eosinophil Count 0.18 10^3/uL (0.0-0.7); Absolute Monocyte Count 0.89 10^3/uL (0.1-0.8); Absolute Neutrophil Count 6.95 10^3/uL (1.2-6.7); Basophils % 0.8 %; Eosinophils % 1.9 %; HCT 51.7 % (40.0-50.0); HGB 17.6 g/dL (13.5-17.5); Immature Grans % 0.2 %; Lymphocytes % 14.7 %; MCH 33.1 pg (27.0-33.0); MCV 97 fL (80-95); MPV 11.7 fL (8.0-11.0); Monocytes % 9.3 %; Neutrophils % 73.1 %; Platelet Count 242 10^3/uL (130-400); RBC 5.32 10^6/uL (4.36-5.78); RDW 13.5 % (11.8-14.1); RDW-SD 48.8 fL; WBC 9.52 10^3/uL (4.4-10.8)
[2024-07-11 21:41] LABS: ALT 16 U/L (16-63); AST 19 U/L (15-37); Albumin 4.4 g/dL (3.4-5.0); Alkaline Phosphatase 96 U/L (46-116); BUN 26 mg/dL (7-18); Bilirubin, Total 0.71 mg/dL (0.2-1.0); CREATININE 1.5 mg/dL (0.70-1.30); Calcium 9.6 mg/dL (8.5-10.1); Chloride 103 mmol/L (98-107); Estimated GFR 49.77 (mL/min/1.73m2); Glucose 119 mg/dL (74-106); Potassium 3.8 mmol/L (3.5-5.1); Sodium 139 mmol/L (136-145); Total Protein 8.6 g/dL (6.4-8.2)
== END 2024-07-11 18:17 | disposition home or self-care (01) ==
LOC: NCHCN 18:16
PROVIDERS: PCP Nurse Practitioner Family; Visit Provider Nurse Practitioner Family
DX: R19.7 Diarrhea, unspecified (principal)
CPT/HCPCS: 80053; 85025

== ENCOUNTER 2024-07-12 15:00 | Outpatient (REF) | payer MEDICARE, SELFPAY ==
--- OUTSIDE RECORDS SUMMARY | 2024-07-12 15:03 | XMS_ITS | Clinical Summary ---
Author Organization [facility] [place] [address] Care Team Providers Care Rip Machine Operator Name Role Phone Unavailable Primary Care [...]
--- OUTSIDE RECORDS SUMMARY | 2024-07-12 15:03 | XMS_ITS ---
Author Organization Unknown Address [address] [place] [phone] Phone Care Team Providers Care Soliciting Freight Agent Name Role Phone RAI Gagnon Attending Unavailable [facility] - Bebeto ect Date/Time: 07/27/2021 11:45 [facility] ID: [id number] [address] [place], [place], [id number] LOINC: 51297-7 Test Value Unit Reference Range Code Code System Flag Tier- PRE-OP SARS COV2 RNA: NEGATIVE REFERENCE RANGE: NEGAT 83212-4 L OINC Social History Type Status Start Date End Date Code Code Syst em Smoking History Current some day smoker 280240378460485 SNOMED CT Sex Male Assessment You had [...] Code Code System ACUTE RENAL FAILURE active 39171297 SNOMED-CT PNEUMONIA active 054541013 SNOMED-CT LIVER FUNCTION TESTS ABNORMAL active 423354797 SNOMED-CT Allergies and Adverse Reactions Allergy Substance Reaction Severity Start Date Concern Status Co de Code System No Known Drug Allergies Active 751808132 SNOMED-CT Plan of Treatment CT CHEST W/O CONTRAST 03/30/2024 US ABDOMEN LIMITED 1 ORGAN 02/09/2023 CT CHEST W/O CONTRAST 02/09/2023 LAB DRAW 15MIN 08/24/2021 PRE-OP COVID-19 TESTING 07/27/2021 Encounters Encounter Diagnosis Start Date Code Code Sys tem Pre-surgery testing 07/27/2021 675392902 SNOMED-C T Personal Care Team Section Performer Name Performer Role Active Date Inactive Da te
--- OUTSIDE RECORDS SUMMARY | 2024-07-12 15:03 | XMS_ITS | Encounter Summary ---
Author Organization [facility] Address [facility] [place] [address] Care Team Providers Care Investment Representative Name Role Phone Unavailable Primary Care Provider Unavailabl e Encounter Details Date Type Department Care Team (Late st Contact Info) Description 03/30/2024 Interpretation Only [facility] in [address] [address] Bethany Payan, ELECTRICAL INTEGRATOR [address] [place] [address] Social History Tobacco Use Types Packs/Day Years [...] PM EDT) PT CLASS O RAD ADMITDTTM [id number] RAD PT RAD INFO [id number]^TATEL^ BETHANY^S RAD EXAM DESC CTSCLUNG^CT LDCT FOR [...] who have questions please contact the health managed care liaison that requested your imaging first. ? ORIGINAL [...] who have questions please contact the health managed care liaison that requested your imaging first. ? Addendum [...] who have questions please contact the health managed care liaison that requested your imaging first. ? Impressions [...] who have questions please contact the health managed care liaison that requested your imaging first. ? Narrative [...] patients who have questions please contactthe health managed care liaison that requested your imaging first. Bethany Payan ELECTRICAL INTEGRATOR IMG CT ORDERABLES documented in this encounter Visit Diagnoses Not on filedocumented in this encounter
--- OUTSIDE RECORDS SUMMARY | 2024-07-12 15:03 | XMS_ITS | Encounter Summary ---
Author Organization [facility] [place] [address] Care Team Providers Care Varnish Maker Name Role Phone Unavailable Primary Care Provider Unavailabl e Encounter Details Date Type Department Care Team (Late st Contact Info) Description 03/30/2024 Interpretation Only [facility] in [address] [address] Bethany Payan, SHELTER CASE MANAGER [address] [place] [address] Social History Tobacco Use Types Packs/Day Years [...] PM EDT) PT CLASS O RAD ADMITDTTM [id number] RAD PT RAD MD INFO [id number]^MARLIN^ BETHANY^S RAD EXAM DESC [id number]^XR LS SPINE 4V OR MORE^RIS RAD WORKSTATION ID [id number] [facility] Anatomical Region Laterality Modality L-spine N/A Radiographic [...] have questions please contact the health care team coordinator scheduler that requested your imaging first. ? Electronically signed by: Babar Blanca MD, [facility] ([phone]), at 03/31/2024 11:59 PM Narrative 03/31/2024 11:59 PM EDT EXAMINATION: XR [...] patients who have questions please contactthe health care team coordinator scheduler that requested your imaging first. Electronically signed by: Babar Blanca MD, [facility]([phone]), at 03/31/2024 11:59 PM Bethany Payan SHELTER CASE MANAGER IMG DX ORDERABLES documented in this encounter Visit Diagnoses Not on filedocumented in this encounter
--- OUTSIDE RECORDS SUMMARY | 2024-07-12 15:04 | XMS_ITS ---
Author Organization Unknown Address [address] [place], [place] [phone] Phone Care Team Providers Care Separator Tender Name Role Phone JERALD Roy Attending Unavailable MARLIN Parr Primary Unavailable Results PSA PROSTATE SPECIFIC ANTIGE N DIAG* - Collect Date/Time: 08/24/2021 10:46 [facility] ID: [id number] [address] [place], [place], [address] LOINC: 2857-1 Test Value Unit Reference Range Code Code System Flag PSA 1.81 ng/mL L=0.00 H=4.50 2857-1 LOINC Social History Type Status Start Date End Date Code Code Syst em Smoking History Current some day smoker 097323731231468 SNOMED CT Sex Male Assessment You had [...] Code Code System ACUTE RENAL FAILURE active 57354936 SNOMED-CT PNEUMONIA active 195259983 SNOMED-CT LIVER FUNCTION TESTS ABNORMAL active 818221449 SNOMED-CT Allergies and Adverse Reactions Allergy Substance Reaction Severity Start Date Concern Status Co de Code System No Known Drug Allergies Active 018715500 SNOMED-CT Plan of Treatment CT CHEST W/O CONTRAST 03/30/2024 US ABDOMEN LIMITED 1 ORGAN 02/09/2023 CT CHEST W/O CONTRAST 02/09/2023 LAB DRAW 15MIN 08/24/2021 PRE-OP COVID-19 TESTING 07/27/2021 Encounters Encounter Diagnosis Start Date Code Code Sys tem Screening for malignant neoplasm of prostate 2 809903702 SNOMED-CT Personal Care Team Section Performer Name Performer Role Active Date Inactive Da te
--- OUTSIDE RECORDS SUMMARY | 2024-07-12 15:05 | XMS_ITS ---
Author Organization Unknown Address [address] [place] [phone] Phone Care Team Providers Care Technology And Engineering Teacher Name Role Phone MARLIN Parr Attending Unavailable Results CT LDCT FOR LUNG CA SCREEN - Completed: 02/09/2023 09:54 LOINC: [No content] US AORTA SCREENING - Complet ed: 02/09/2023 08:11 LOINC: [facility] [place], [place] [address] PACS INSPECTOR WIRE PRODUCTS REPORT Patient Name: SHIRLENE SWANN MRN: Sex: : Age: [id number] M 1955 67 Account: Accession: Admit: StayType: [id number] 02/09/2023 O/P Ordered: Order ID: Submitted: Ordering Provider: 02/09/2023 07:52 [id number] BETHANY SINGH Completed: Technologist: Resulted: 02/09/2023 08:11 [...] em Smoking History Current some day smoker [id number] SNOMED CT Sex Male Assessment You had [...] Code Code System ACUTE RENAL FAILURE active 56079485 SNOMED-CT PNEUMONIA active 887798561 SNOMED-CT LIVER FUNCTION TESTS ABNORMAL active 719467768 SNOMED-CT Allergies and Adverse Reactions Allergy Substance Reaction Severity Start Date Concern Status Co de Code System No Known Drug Allergies Active 760923710 SNOMED-CT Plan of Treatment CT CHEST W/O CONTRAST 03/30/2024 US ABDOMEN LIMITED 1 ORGAN 02/09/2023 CT CHEST W/O CONTRAST 02/09/2023 LAB DRAW 15MIN 08/24/2021 PRE-OP COVID-19 TESTING 07/27/2021 Encounters Encounter Diagnosis Start Date Code Code Sys tem Screening for malignant neop lasm of respiratory tract 02/09/2023 522269106 SNOMED-CT Personal Care Team Section Performer Name Performer Role Active Date Inactive Da te
--- OUTSIDE RECORDS SUMMARY | 2024-07-12 15:06 | XMS_ITS | Encounter Summary ---
Author Organization [facility] Address [address] [place] [address] Care Team Providers Care Real Estate Photographer Name Role Phone Maile Payan SET AND EXHIBIT DESIGNER Primary Care Provider [phone] Encounter Details Date Type Department Care Team (Late st Contact Info) Description 12/20/2020 Lab Requisition [facility] Pathology & Laboratory Medicine - [address] [address] Outr Resulting Lab, Provider Social History Tobacco [...] RNA Qualitative Undetected Undetected 12/22/2020 15:23 EDT [facility] Blood VENOUS BLOOD / Unknown 12/19/2020 13:42 EDT 12/21/2020 16:03 EDT Narrative [facility] - 12/22/2020 15:23 EDT The quantification range of this assay is 15 IU/mL to 100,000,000 IU/mL. ??Testing was performed on the ZHANE Ampliprep/ZHANE TaqMan HCV v2.0 ([employer] us Provider Outr Resulting Lab CHEMISTRY & BLOOD GA S ORDERABLES Final Result [facility] [address] [place] [address] documented in this encounter Visit Diagnoses Not on filedocumented in this encounter Care Teams Real Estate Photographer Relationship Specialty Start Date End Date Maile Payan FNP [address] [place] [address] PCP - General 05/11/19 documented as of this encounter
--- OUTSIDE RECORDS SUMMARY | 2024-07-12 15:06 | XMS_ITS ---
Author Organization Unknown Address [address] [place] [address] [phone] Phone Care Team Providers Care Sewing Machine Adjuster Name Role Phone JOVANA Gagnon Attending Unavailable MARLIN Parr Primary Unavailable Social History Type Status Start Date End Date Code Code Syst em Smoking History Current some day smoker [id number] SNOMED CT Sex Male Assessment You had [...] Code Code System ACUTE RENAL FAILURE active 65790756 SNOMED-CT PNEUMONIA active 689349635 SNOMED-CT LIVER FUNCTION TESTS ABNORMAL active 978615448 SNOMED-CT Allergies and Adverse Reactions Allergy Substance Reaction Severity Start Date Concern Status Co de Code System No Known Drug Allergies Active 007073690 SNOMED-CT Plan of Treatment CT CHEST W/O CONTRAST 03/30/2024 US ABDOMEN LIMITED 1 ORGAN 02/09/2023 CT CHEST W/O CONTRAST 02/09/2023 LAB DRAW 15MIN 08/24/2021 PRE-OP COVID-19 TESTING 07/27/2021 Encounters Encounter Diagnosis Start Date Code Code Sys tem Atrial fibrillation 04/13/2024 75216394 SNOMED-C T Personal Care Team Section Performer Name Performer Role Active Date Inactive Da te
--- OUTSIDE RECORDS SUMMARY | 2024-07-12 15:06 | XMS_ITS | Encounter Summary ---
Author Organization [facility] Address [address] [place] [address] Care Team Providers Care Vice President Supply Chain Name Role Phone Maile Payan WINDOWS SYSTEMS ADMIN Primary Care Provider [phone] Encounter Details Date Type Department Care Team (Late st Contact Info) Description 10/01/2020 Lab Requisition [facility] Pathology & Laboratory Medicine - [address] [address] Outr Resulting Lab, Provider Social History Tobacco [...] Entry Date Author No 07/17/2019 9:15 Lucy aGvin RN documented in this encounter Plan of Treatment Not on file documented as of this encounter Procedures Procedure Name Priority Date/Time Associated Diagnosis Comments HIV 1/2 ANTIGEN AND ANTIBODY, 4TH GENERATION Routine 09/30/2020 10:55 EDT documented in this encounter Results * HIV 1/2 ANTIGEN AND ANTIBODY, 4TH GENERATION (09/30/2020 10:55 EDT) [facility] HIV 1 and 2 Antibody/p24 Antigen, 4th Generation Negative Negative 10/02/2020 9:44 EDT [facility] Comment: If acute HIV-1 infection is suspected in a high risk ??patient, submit plasma specimen for HIV-1 RNA quantitation test. Fourth Generation assay performed on the Siemens Centaur. Blood VENOUS BLOOD / Unknown 09/30/2020 10:55 EDT 10/01/2020 15:31 EDT us Provider Outr Resulting Lab IMMUNOLOGY AND SEROL OGY ORDERABLES Final Result [facility] [address] [place] [address] documented in this encounter Visit Diagnoses Not on filedocumented in this encounter Care Teams Vice President Supply Chain Relationship Specialty Start Date End Date Maile Payan FNP [address] [place] [phone] PCP - General 05/11/19 documented as of this encounter
--- OUTSIDE RECORDS SUMMARY | 2024-07-12 15:06 | XMS_ITS | Clinical Summary ---
Author Organization [facility] Address [address] [place] [address] Care Team Providers Care Treasury Analyst Name Role Phone Maile Payan Keshav PRESS ROOM SUPERVISOR Primary Care Provider Allergies No known active [...] Informant: Self, Reported on 08/30/2019 Wool Alcoh-Min Mtm-Satam-Hhys s (EUCERIN) cream Apply to dry areas [...] NARINDER LEÓN ONLY HAS DURABLE POWER OF ROAD MAKER OVER MONEY AND PROPERTY MATTERS OF PT, NOT HEALTH CARE DECISIONS. 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 Overview (08/22/2019): Added automatically from request for surgery [id number] Physical debility 05/12/2019 Upper gastrointestinal bleed 04/18/2019 Septic shock ([facility]) 03/19/2019 Anemia 03/19/2019 Thrombocytopenia ([facility]) 03/19/2019 Bacteremia 03/19/2019 Fever 03/19/2019 Encephalopathy 03/19/2019 Atrial fibrillation with RVR ([facility]) 9 Resolved Problems Problem Noted Date Diagnosed Date Resolved Date ARDS (adult respiratory dist ress syndrome) ([facility]) 03/19/2019 05/12/2019 SIRISHA (acute kidney injury) ([facility]) 03/19/2019 05/12/2019 Acute respiratory failure wi th hypoxia ([facility]) 03/17/2019 05/12/2019 Immunizations Name Administration Dates Next Due Influenza Vaccine Quad PF 0.5 ml IM (6 mos+) Surgical History Surgery Date Site/Laterality Comments TRACHEOSTOMY 03/28/2019 d/t pneumonia and ARDS; Dr. Castro; [facility] WISDOM TOOTH EXTRACTION 07/04/1971 - 07/03/1972 WRIST SURGERY 07/04/1973 - 07/03/1974 Right bone spur removed Medical History Medical History Date Comments ARDS (adult respiratory dist ress syndrome) ([facility]) 03/17/2019 A-fib ([facility]) 03/17/2019 w/ RVR; [facility] trans to [facility] SIRISHA (acute kidney injury) ([facility]) with acute respiratory failure with hypoxia Acute respiratory failure wi th hypoxia ([facility]) 03/17/2019 Tracheo-cutaneous fistula 07/17/[address] ([facility]) 03/28/2019 decannulated 04/20/2019 Loss of appetite 02/27/2019 Weakness generalized 02/27/2019 Malaise and fatigue 02/27/2019 Diarrhea 02/27/2019 Pneumonia 03/17/2019 Renal failure, acute ([facility]) 03/17/2019 Volume overload 03/17/2019 COPD (chronic obstructive pu lmonary disease) ([facility]) 03/17/2019 Hemodynamic instability 03/17/2019 Sepsis due to methicillin henriquez sceptible Staphylococcus aureus (MSSA) with acute hypoxic respiratory failure and septic shock ([facility]) 03/17/2019 2ndary to LLL pneumonia and MSSA bacteremia MSSA bacteremia 03/17/2019 Impaired mobility and ADLs 05/12/2019 Thrombocytopenia ([facility]) 03/17/2019 Anemia 03/17/2019 4 units PBRCs an [...] RNA Qualitative Undetected Undetected 12/22/2020 15:23 EDT [facility] Blood VENOUS BLOOD / Unknown 12/19/2020 13:42 EDT 12/21/2020 16:03 EDT Narrative [facility] - 12/22/2020 15:23 EDT The quantification range of this assay is 15 IU/mL to 100,000,000 IU/mL. ??Testing was performed on the ZHANE Ampliprep/ZHANE TaqMan HCV v2.0 ([employer] us Provider Outr Resulting Lab CHEMISTRY & BLOOD GA S ORDERABLES Final Result [facility] [address] [place] [address] from Last 3 Months or Most Recently Relevant to Health Maintenance Insurance [employer] MEDICARE Advance Directives For more information, please contact: [phone] Documents on File Type Date Recorded Patient Special Education Inclusion Teacher Expl anation COLST/MOLST 05/23/2019 12:04 DNR/COLST Advance Directive 04/06/2019 13:14 General Power of [id number] * Limitation of Treatment (Latest Code Status [...] NOT the patient's healthcare provider; or the piano teacher, oil recovery operator, employee of a residential care facility, [...] NOT the patient's healthcare provider; or the piano teacher, oil recovery operator, employee of a residential care facility, [...] the discussion? Not Discusse d Care Teams Treasury Analyst Relationship Specialty Start Date End Date Maile Payan FNP [address] [place] [phone] PCP - General 05/11/19
--- OUTSIDE RECORDS SUMMARY | 2024-07-12 15:06 | XMS_ITS | Encounter Summary ---
Author Organization [facility] Address [address] [place] [address] Care Team Providers Care Manager Life Insurance Name Role Phone Maile Payan Keshav STAKING ENGINEER Primary Care Provider [phone] Encounter Details Date Type Department Care Team (Late st Contact Info) Description 10/31/2020 Lab Requisition [facility] Pathology & Laboratory Medicine - [address] [address] Outr Resulting Lab, Provider Social History Tobacco [...] 12:50 EDT) Hold Hold 10/31/2020 17:15 EDT [facility] Blood VENOUS BLOOD / Unknown 10/30/2020 12:50 EDT 10/31/2020 16:14 EDT us Provider Outr Resulting Lab LAB INFO SERVICE AND SUPPORT & PHONE RESULT Final Result [facility] [address] [place] [address] * HEPATITIS B CORE ANTIBODY (TOTAL) (10/30/2020 12:50 EDT) Hepatitis B Core Ab, Total Negative Negative 11/03/2020 10:46 EDT [facility] Blood VENOUS BLOOD / Unknown 10/30/2020 12:50 EDT 10/31/2020 16:12 EDT us Provider Outr Resulting Lab CHEMISTRY & BLOOD GA S ORDERABLES Final Result Performing Organization Address City/[facility]/ZIP Co de Phone Number [facility] [address] [place] [address] * HEPATITIS B SURFACE ANTIGEN (10/30/2020 12:50 EDT) Hep B Surface Ag Negative Negative 11/03/2020 9:57 EDT [facility] Blood VENOUS BLOOD / Unknown 10/30/2020 12:50 EDT 10/31/2020 16:12 EDT us Provider Outr Resulting Lab CHEMISTRY & BLOOD GA S ORDERABLES Final Result Performing Organization Address City/[facility] Co de Phone Number [facility] [address] [place] [address] documented in this encounter Visit Diagnoses Not on filedocumented in this encounter Care Teams Manager Life Insurance Relationship Specialty Start Date End Date Maile Payan FNP [address] [place] [phone] PCP - General 05/11/19 documented as of this encounter
--- OUTSIDE RECORDS SUMMARY | 2024-07-12 15:06 | XMS_ITS | Referral Summary ---
Author Organization [facility] Address [address] [place] [address] Care Team Providers Care Health Nurse Name Role Phone Maile Payan Keshav MANAGER CUSTOM Primary Care Provider Allergies No known active [...] Informant: Self, Reported on 08/30/2019 Wool Alcoh-Min Ywn-Kpctv-Wgvc s (EUCERIN) cream Apply to dry areas [...] NARINDER LEÓN ONLY HAS DURABLE POWER OF PLANNING DIVISION SUPERINTENDENT OVER MONEY AND PROPERTY MATTERS OF PT, NOT HEALTH CARE DECISIONS. 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 Overview (08/22/2019): Added automatically from request for surgery [id number] Physical debility 05/12/2019 Upper gastrointestinal bleed 04/18/2019 Septic shock ([facility]) 03/19/2019 Anemia 03/19/2019 Thrombocytopenia ([facility]) 03/19/2019 Bacteremia 03/19/2019 Fever 03/19/2019 Encephalopathy 03/19/2019 Atrial fibrillation with RVR ([facility]) 9 Resolved Problems Problem Noted Date Diagnosed Date Resolved Date ARDS (adult respiratory dist ress syndrome) ([facility]) 03/19/2019 05/12/2019 SIRISHA (acute kidney injury) ([facility]) 03/19/2019 05/12/2019 Acute respiratory failure wi th hypoxia ([facility]) 03/17/2019 05/12/2019 Immunizations Name Administration Dates Next [...] RNA Qualitative Undetected Undetected 12/22/2020 15:23 EDT [facility] Blood VENOUS BLOOD / Unknown 12/19/2020 13:42 EDT 12/21/2020 16:03 EDT Narrative [facility] - 12/22/2020 15:23 EDT The quantification range of this assay is 15 IU/mL to 100,000,000 IU/mL. ??Testing was performed on the ZHANE Ampliprep/ZHANE TaqMan HCV v2.0 ([employer] us Provider Outr Resulting Lab CHEMISTRY & BLOOD GA S ORDERABLES Final Result [facility] [address] [place] [address] from Last 3 Months or Most Recently Relevant to Health Maintenance [place] [place] [address] MEDICARE Advance Directives For more information, please contact: [phone] Documents on File Type Date Recorded Patient Insurance Account Representative Expl anation COLST/MOLST 05/23/2019 12:04 DNR/COLST Advance Directive 04/06/2019 13:14 General Power of [id number] * Limitation of Treatment (Latest Code Status [...] NOT the patient's healthcare provider; or the rn transition, teletypewriter operator, employee of a residential care facility, [...] NOT the patient's healthcare provider; or the rn transition, teletypewriter operator, employee of a residential care facility, [...] the discussion? Not Discusse d Care Teams Health Nurse Relationship Specialty Start Date End Date Maile Payan FNP [address] [place] [phone] PCP - General 05/11/19
--- OUTSIDE RECORDS SUMMARY | 2024-07-12 15:07 | XMS_ITS | Encounter Summary ---
Author Organization [facility] Address [address] [place] [address] Care Team Providers Care Line Tester Name Role Phone Maile Payan Keshav MARTÍNEZP Primary Care Provider [phone] Reason for Visit * Auth/Cert Specialty Diagnoses / Procedures Referred By Contac t Referred To Contact Diagnoses Acquired tracheal fistula Procedures [place] SURG CLOSURE TRACH/FISTULA SURG CLOSURE TRACHEOSTOMY/FISTULA;W/OPLASTIC REPA Referral ID Status Reason Start Date Expiration Date Visits Re quested Visits Authorized [id number] 1 1 Encounter Details Date Type Department Care Team (Latest Contact Info) Description 09/05/2019 11:55 EST - 09/05/2019 17:33 EST Hospital Encounter [facility] OR [address] [place] [address] Owen Carpio MD PhD Acquired tracheal fistula [...] directed daily. 30 Cap 05/11/2019 Wool Alcoh-Min Kih-Qlnau-Bmfvn (EUCERIN) cream Apply to dry areas twice daily as needed 57 g 05/10/2019 documented as of this encounter Discharge Disposition Disposition Code Departure Means Destination Home or Self Retirement documented in this encounter OR Notes * OR Surgeon - Owen Carpio MD - 09/05/2019 0000 EST OPERATIVE REPORT SERVICE DATE: 09/05/2019 SURGEON: Owen Carpio MD, PhD [place]NOS REPORT DEVELOPER: Gemma Romero MD PROCEDURE: Closure of tracheocutaneous [...] PM / Owen Carpio MD,PhD an Confirmation: [id number] Dictation ID: [id number] documented in this encounter Miscellaneous Notes * Brief Op Note - Gemma Romero MD - 09/05/2019 1615 EST Brief Op Note Pre-op Diagnosis: Tracheocutaneous fistula Post-op Diagnosis: same Procedure: Excision of TC fistula tract Surgeon: Shirin CHAMBERLAIN Supervisor Aircraft Maintenance: Gemma Romero MD Anesthesia: Local and IV sedation Findings: fistula tract excised Fluids: IVF - 600 cc, EBL - min, UOP - NR Drains/Lines: none Retained Material: none Specimens: none Complications: none Condition: stable Wound classification: II-Clean/Contaminated Dispo: PACU then home Gemma Romero MD, PGY5 09/05/2019 16:17 Pager: [phone] documented in this encounter Plan of Treatment [...] - Negative for dysplasia/maligna ncy. 09/12/2019 11:21 [facility] at 1121 Clinical History Acquired tracheal fistula 09/12/2019 11:21 [facility] Attestation There was significant resident/fellow involvement in the diagnostic evaluation of this case. By the signature below, the attending physician certifies that they have personally conducted a gross and/or microscopic examination of the described specimens and rendered or confirmed the above diagnosis. 09/12/2019 11:21 [facility] at 1121 Gross Description [...] A1-A3. Janette Winston 09/06/2019 11:40 09/12/2019 11:21 [facility] Resident/Sagar w: Kofi Catalan MD 09/12/2019 11:21 [facility] Scanned Images 09/12/2019 11:21 [facility] Tissue FISTULA / Unknown 09/05/2019 16:03 EST 09/06/2019 7:59 EST us Owen Carpio MD PhD PATHOLOGY ORDERABL ES Final Result [facility] [address] [place] [address] documented in this encounter Visit Diagnoses Diagnosis [...] 1354 (Not Given - Pr ovider: Sangeeta [place] - Reason: Other) lidocaine-EPINEPHrine 1 %-1:100,000 injection [...] 09/05/2019 documented in this encounter Care Teams Line Tester Relationship Specialty Start Date End Date Maile Payan FNP [address] [place] [phone] PCP - General 05/11/19 documented as of this encounter
--- OUTSIDE RECORDS SUMMARY | 2024-07-12 15:07 | XMS_ITS | Encounter Summary ---
Author Organization [facility] Address [address] [place] [address] Care Team Providers Care Utilization Review Rn Name Role Phone Maile Payan WASTEWATER TREATMENT ENGINEER Primary Care Provider [phone] Encounter Details Date Type Department Care Team [...] on filedocumented in this encounter Care Teams Utilization Review Rn Relationship Specialty Start Date End Date Maile Payan FNP [address] [place] [phone] PCP - General 05/11/19 documented as of this encounter
--- OUTSIDE RECORDS SUMMARY | 2024-07-12 15:07 | XMS_ITS | Encounter Summary ---
Author Organization [facility] Address [address] [place] [address] Care Team Providers Care Oil Drilling Engineer Name Role Phone Maile Payan BLOCKER AND POLISHER Primary Care Provider [phone] Encounter Details Date Type Department Care Team (Late st Contact Info) Description 08/21/2019 Prep for Procedure [facility] [address] [place] [address] Owen Carpio MD PhD Social History Tobacco [...] 08/21/2019 documented in this encounter Care Teams Oil Drilling Engineer Relationship Specialty Start Date End Date Maile Payan FNP [address] [place] [phone] PCP - General 05/11/19 documented as of this encounter
--- OUTSIDE RECORDS SUMMARY | 2024-07-12 15:07 | XMS_ITS | Encounter Summary ---
Author Organization [facility] Address [address] [place] [address] Care Team Providers Care Construction Carpenters Helper Name Role Phone NicholasMaile gregg FRONT OFFICE DEVELOPER Primary Care Provider [phone] Reason for Visit * Reason Comments Follow-up 1 month trach johnathan govea Encounter Details Date Type Department Care Team (Late st Contact Info) Description 07/17/2019 9:30 EST Office Visit [facility] Acute Care Surgery - [facility] [address] [place] [address] Owen Carpio MD PhD Acquired tracheal fistula [...] mitigate this. 15 minutes of this 20-minute [id number] encounter was spent counseling this patient regarding options. He will notify this office with what his choice is. documented in this encounter Plan of Treatment Not on file documented as of this encounter Visit Diagnoses Diagnosis Acquired tracheal fistula- Primary documented in this encounter Care Teams Construction Carpenters Helper Relationship Specialty Start Date End Date Maile Payan FNP [address] [place] [address] PCP - General 05/11/19 documented as of this encounter
--- OUTSIDE RECORDS SUMMARY | 2024-07-12 15:07 | XMS_ITS | Encounter Summary ---
Author Organization [facility] Address [address] [place] [address] Care Team Providers Care Coordinator Of Online Programs Name Role Phone Maile Payan REFRESH TECHNICIAN Primary Care Provider [phone] Reason for Visit * Reason Onset Date Comments Hospital Discharge Follow Up 09/07/2019 Encounter Details Date Type Department Care Team (Late st Contact Info) Description 09/07/2019 Telephone [facility] Acute Care Surgery - [facility] [address] [place] [address] Melba Braswell RN Hospital Discharge Follow Up [...] on filedocumented in this encounter Care Teams Coordinator Of Online Programs Relationship Specialty Start Date End Date Maile Payan FNP [address] [place] [phone] PCP - General 05/11/19 documented as of this encounter
--- OUTSIDE RECORDS SUMMARY | 2024-07-12 15:07 | XMS_ITS | Encounter Summary ---
Author Organization [facility] Address [address] [place] [address] Care Team Providers Care Financial Recruiter Name Role Phone Bethany Payan Primary Care Provider [phone] Reason for Visit * Reason Comments Follow-up * Consult (Routine) - Closed Specialty Diagnoses / Procedures Referred By Contact Referred To Contact Gastroenterology and Hepatology Diagnoses Acute duodenal ulcer with hemorrhage Bethany Payan FNP [address] [place] [address] Phone: tel:[phone] fax:[phone] [facility] Gastroenterology [address] [address] Phone: tel: fax: Referral ID Status Reason Start Date Expiration Date Visits Re quested Visits Authorized [id number] Closed 1 1 Encounter Details Date Type Department Care Team (Late st Contact Info) Description 02/20/2020 10:40 EDT Telemedicine [facility] Gastroenterology [address] [address] Jeyson Castillo MD [address] [place] [address], [address] [place] [address] PUD (peptic ulcer disease) (Primary [...] Past Medical History: Diagnosis Date ??? A-fib ([facility]) 03/17/2019 w/ RVR; [facility] to [facility] ??? Acute respiratory failure with hypoxia ([facility]) 03/17/2019 ??? SIRISHA (acute kidney injury) ([facility]) with acute respiratory failure with hypoxia ??? Anemia 03/17/2019 4 units PBRCs and 1 unit platelets in total during hospital stay ??? ARDS (adult respiratory distress syndrome) ([facility]) 03/17/2019 ??? COPD (chronic obstructive pulmonary disease) ([facility]) 03/17/2019 ??? Diarrhea 02/27/2019 ??? Encephalopathy acute 03/17/2019 ??? Fever 03/17/2019 ??? GI bleed 03/2019 ??? Hemodynamic instability 03/17/2019 ??? Impaired mobility and ADLs 05/12/2019 ??? Loss of appetite 02/27/2019 ??? Malaise and fatigue 02/27/2019 ??? MSSA bacteremia 03/17/2019 ??? Pneumonia 03/17/2019 ??? Renal failure, acute ([facility]) 03/17/2019 ??? Sepsis due to methicillin susceptible Staphylococcus aureus (MSSA) with acute hypoxic respiratory failure and septic shock ([facility]) 03/17/2019 2ndary to LLL pneumonia and MSSA bacteremia ??? Thrombocytopenia ([facility]) 03/17/2019 ??? 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 Tracheostomy in place ([facility]) 03/28/2019 decannulated 04/20/2019 ??? Volume overload 03/17/2019 ??? Weakness generalized 02/27/2019 SURGICAL HISTORY Past Surgical History: Procedure Laterality Date ??? TRACHEOSTOMY 03/28/2019 d/t pneumonia and ARDS; Dr. Castro; [facility] ??? WISDOM TOOTH EXTRACTION 1971 ??? [...] 30 Cap, Rfl: 0 ??? Wool Alcoh-Min Ldt-Ldnmn-Gvbrh (EUCERIN) cream, Apply to dry areas twice [...] obstruction documented in this encounter Care Teams Financial Recruiter Relationship Specialty Start Date End Date Bethany Payan FNP [address] [place] [phone] PCP - General 05/11/19 documented as of this encounter
--- OUTSIDE RECORDS SUMMARY | 2024-07-12 15:07 | XMS_ITS | Encounter Summary ---
Author Organization [facility] Address [address] [place] [address] Care Team Providers Care Payroll Tax Analyst Name Role Phone Maile Payan WRAPPER LAYER Primary Care Provider [phone] Encounter Details Date Type Department Care Team (Late st Contact Info) Description 09/15/2020 Lab Requisition [facility] Pathology & Laboratory Medicine - [address] [address] Outr Resulting Lab, Provider Social History Tobacco [...] Qualitative Detected( A) Undetected 09/17/2020 14:39 EDT [facility] HCV RNA Quantitative 1,003,901 (H) Undetected IU/mL 09/17/2020 14:39 EDT [facility] Blood VENOUS BLOOD / Unknown 09/15/2020 10:40 EDT 09/15/2020 20:51 EDT Narrative [facility] - 09/17/2020 14:39 EDT The quantification range of this assay is 15 IU/mL to 100,000,000 IU/mL. ??Testing was performed on the ZHANE Ampliprep/ZHANE TaqMan HCV v2.0 ([employer] us Provider Outr Resulting Lab CHEMISTRY & BLOOD GA S ORDERABLES Final Result Performing Organization Address [facility] Co de Phone Number [facility] [address] [place] [address] * HEPATITIS B SURFACE ANTIBODY (09/15/2020 10:40 EDT) Hep B Surface Ab, Quantitative <3.1 See Note mIU/mL 09/16/2020 9:48 EDT [facility] Comment: Reference Range for Hep B Surface Ab, Quant: Positive: >= 10.0 mIU/mL Negative: ??< 10.0 mIU/mL Patient is presumed to not be immune to infection with Hepatitis B Virus. Hep B Surface Ab, Qualitative Negative See Note 09/16/2020 9:48 EDT [facility] Comment: Reference Range for Hep B Surface Ab, Qual: Unvaccinated: ??Negative Vaccinated: ??Positive Blood VENOUS BLOOD / Unknown 09/15/2020 10:40 EDT 09/15/2020 20:51 EDT Provider Outr Resulting Lab CHEMISTRY & BLOOD GA S ORDERABLES Final Result Performing Organization Address [facility] de Phone Number [facility] [address] [place] [address] * PSA TOTAL, DIAGNOSTIC (09/15/2020 10:40 EDT) PSA 1.8 0.0 - 4.5 ng/mL 09/15/2020 22:38 EDT [facility] Blood VENOUS BLOOD / Unknown 09/15/2020 10:40 EDT 09/15/2020 20:51 EDT Narrative [facility] - 09/15/2020 22:38 EDT NOTE: Serum PSA concentration should not be interpreted as absolute evidence for the presence or absence of malignant disease. Assayed on Siemens InStitchuaur XPT using chemiluminescent technology.??Values obtained by using different assay methods cannot be used interchangeably. us Provider Outr Resulting Lab CHEMISTRY & BLOOD GA S ORDERABLES Final Result Performing Organization Address [facility]/ZIP Co de Phone Number [facility] [address] [place] [address] * (ABNORMAL) HEPATITIS C AB W REFLEX TO HCV RNA BY PCR (09/15/2020 10:40 EDT) Hep C Antibody Reactive(A ) Negative 09/16/2020 11:55 EDT [facility] Comment: Supplemental testing for HCV RNA is ordered to rule out active HCV infection. Blood VENOUS BLOOD / Unknown 09/15/2020 10:40 EDT 09/15/2020 20:51 EDT us Provider Outr Resulting Lab CHEMISTRY & BLOOD GA S ORDERABLES Final Result Performing Organization Address [facility] Co de Phone Number [facility] [address] [place] [address] documented in this encounter Visit Diagnoses Not on filedocumented in this encounter Care Teams Payroll Tax Analyst Relationship Specialty Start Date End Date Maile Payan FNP [address] [place] [phone] PCP - General 05/11/19 documented as of this encounter
--- OUTSIDE RECORDS SUMMARY | 2024-07-12 15:07 | XMS_ITS | Encounter Summary ---
Author Organization [facility] Address [address] [place] [address] Care Team Providers Care Stenciler Name Role Phone Maile PayanP Primary Care Provider [phone] Reason for Visit * Reason Comments Post-OP Follow Up Here for follow up. * Follow Up (Routine) - Order Cancelled Specialty Diagnoses / Procedures Referred By Judy morgan Referred To Contact Trauma Surgery Diagnoses Acquired tracheal fistula Gemma Romero MD Phone: tel: fax: [facility] [address] [address] Phone: tel: fax: Referral ID Status Reason Start Date Expiration Date Visits Requested Visits Authorized [id number] Order Cancelled Specialty Services Required 09/05/2019 1 1 Encounter Details Date Type Department Care Team (Late st Contact Info) Description 09/27/2019 13:00 EDT Post-op Visit [facility] [address] [phone] Trauma Surgery, Ep5 Acs Acquired tracheal fistula [...] for follow up. Anil Bryan present to [facility] follow up clinic after undergoing tracheal scar [...] Primary documented in this encounter Care Teams Stenciler Relationship Specialty Start Date End Date Maile Payan FNP [address] [place] [phone] PCP - General 05/11/19 documented as of this encounter
--- OUTSIDE RECORDS SUMMARY | 2024-07-12 15:07 | XMS_ITS | Encounter Summary ---
Author Organization [facility] Address [address] [place] [address] Care Team Providers Care Studio Grip Name Role Phone Maile Payan MERCANTILE AGENT Primary Care Provider [phone] Reason for Visit * Reason Onset Date Comments Appointment Related 09/04/2019 Encounter Details Date Type Department Care Team (Late st Contact Info) Description 09/04/2019 Telephone [facility] Acute Care Surgery - [facility] [address] [place] [address] Trauma, Surgery, MD Appointment Related Social History [...] on filedocumented in this encounter Care Teams Studio Grip Relationship Specialty Start Date End Date Maile Payan FNP [address] [place] [phone] PCP - General 05/11/19 documented as of this encounter
--- OUTSIDE RECORDS SUMMARY | 2024-07-12 15:07 | XMS_ITS | Encounter Summary ---
Author Organization [facility] Address [address] [place] [address] Care Team Providers Care Call Manager Name Role Phone Maile Payan LEASING AGENT Primary Care Provider [phone] Reason for Visit * Reason Onset Date Comments Appointment Related 09/03/2019 Encounter Details Date Type Department Care Team (Late st Contact Info) Description 09/03/2019 Telephone [facility] Acute Care Surgery - [facility] [address] [place] [address] Trauma, Surgery, MD Appointment Related Social History [...] Telephone Encounter - Mehreen Esteban - 09/03/2019 3769 EST TC to patient to review details [...] surgery, so he needs to have a lumber stacker driver to take him home. documented in this encounter Plan of Treatment Not on file documented as of this encounter Visit Diagnoses Not on filedocumented in this encounter Care Teams Call Manager Relationship Specialty Start Date End Date Maile Payan FNP [address] [place] [phone] PCP - General 05/11/19 documented as of this encounter
--- OUTSIDE RECORDS SUMMARY | 2024-07-12 15:07 | XMS_ITS | Encounter Summary ---
Author Organization [facility] Address [address] [place] [address] Care Team Providers Care Night Auditor Name Role Phone Maile Payan Keshav TEAM COORDINATOR Primary Care Provider [phone] Reason for Visit * Auth/Cert Specialty Diagnoses / Procedures [facility] Referred To Contact Diagnoses Acquired tracheal fistula Procedures AR SURG CLOSURE TRACH/FISTULA SURG CLOSURE TRACHEOSTOMY/FISTULA;W/OPLASTIC REPA Referral ID Status Reason Start Date Expiration Date Visits Re quested Visits Authorized [id number] 1 1 Encounter Details Date Type Department Care Team (Late st Contact Info) Description 09/05/2019 15:29 EST Anesthesia Event [facility] [place] [address] [place], [place] [phone] Roosevelt Vance MD [address] [phone] Ingrid Ryan AA [address] [phone] Anesthesia Record Procedure Summary Procedure [...] Past Medical History: Diagnosis Date ??? A-fib ([facility]) 03/17/2019 w/ RVR; [facility] trans to [facility] ??? Acute respiratory failure with hypoxia ([facility]) 03/17/2019 ??? SIRISHA (acute kidney injury) ([facility]) with acute respiratory failure with hypoxia ??? Anemia 03/17/2019 4 units PBRCs and 1 unit platelets in total during hospital stay ??? ARDS (adult respiratory distress syndrome) ([facility]) 03/17/2019 ??? COPD (chronic obstructive pulmonary disease) ([facility]) 03/17/2019 ??? Diarrhea 02/27/2019 ??? Encephalopathy acute 03/17/2019 ??? Fever 03/17/2019 ??? GI bleed 03/2019 ??? Hemodynamic instability 03/17/2019 ??? Impaired mobility and ADLs 05/12/2019 ??? Loss of appetite 02/27/2019 ??? Malaise and fatigue 02/27/2019 ??? MSSA bacteremia 03/17/2019 ??? Pneumonia 03/17/2019 ??? Renal failure, acute ([facility]) 03/17/2019 ??? Sepsis due to methicillin susceptible Staphylococcus aureus (MSSA) with acute hypoxic respiratory failure and septic shock ([facility]) 03/17/2019 2ndary to LLL pneumonia and MSSA bacteremia ??? Thrombocytopenia ([facility]) 03/17/2019 ??? 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 Tracheostomy in place ([facility]) 03/28/2019 decannulated 04/20/2019 ??? Volume overload 03/17/2019 ??? Weakness generalized 02/27/2019 Relevant Problems CARDIOVASCULAR (+) Atrial fibrillation with RVR ([facility]) Physical Exam Airway Mallampati: III TM distance: [...] mg documented in this encounter Care Teams Night Auditor Relationship Specialty Start Date End Date Maile Payan FNP [address] [place] [phone] PCP - General 05/11/19 documented as of this encounter
--- OUTSIDE RECORDS SUMMARY | 2024-07-12 15:07 | XMS_ITS | Encounter Summary ---
Author Organization [facility] Address [address] [place] [address] Care Team Providers Care Concessionist Name Role Phone Maile Payan AIR AND WATER FILLER Primary Care Provider [phone] Reason for Visit * Auth/Cert Specialty Diagnoses / Procedures Referred By Judy t Referred To Contact Diagnoses Acquired tracheal fistula Procedures ME SURG CLOSURE TRACH/FISTULA SURG CLOSURE TRACHEOSTOMY/FISTULA;W/OPLASTIC REPA Referral ID Status Reason Start Date Expiration Date Visits Re quested Visits Authorized [id number] 1 1 Encounter Details Date Type Department Care Team (Late st Contact Info) Description 09/05/2019 14:05 EST - 09/05/2019 15:30 EST Surgery [facility] OR [address] [place] [id number] Owen Carpio MD PhD SURG CLOSURE TRACHEOSTOMY/FISTULA;W /OPLASTIC REPA [[id number] (CPT??)] Surgery Details Date/Time Status Location OR Service Patient Class Case Cl ass Case Type Trauma Case? 09/05/2019 1405 Posted [facility] Outpatient Surgery H - Elective [...] directed daily. 30 Cap 05/11/2019 Wool Alcoh-Min Fpt-Lurfu-Xkkqn (EUCERIN) cream Apply to dry areas twice daily as needed 57 g 05/10/2019 documented as of this encounter Discharge Disposition Disposition Code Departure Means Destination Home or Self Penitentiary documented in this encounter OR Notes * OR Surgeon - Owen Carpio MD - 09/05/2019 0000 EST OPERATIVE REPORT SERVICE DATE: 09/05/2019 SURGEON: Owen Carpio MD, PhD SIGNAL ENGINEER: Gemma Romero MD PROCEDURE: Closure of tracheocutaneous [...] PM / Owen Carpio MD,PhD an Confirmation: [id number] Dictation ID: [id number] documented in this encounter Miscellaneous Notes * Brief Op Note - Gemma Romero MD - 09/05/2019 5746 EST Brief Op Note Pre-op Diagnosis: Tracheocutaneous fistula Post-op Diagnosis: same Procedure: Excision of TC fistula tract Surgeon: Shirin CHAMBERLAIN Him Specialists: Gemma Romero MD Anesthesia: Local and IV sedation Findings: fistula tract excised Fluids: IVF - 600 cc, EBL - min, UOP - NR Drains/Lines: none Retained Material: none Specimens: none Complications: none Condition: stable Wound classification: II-Clean/Contaminated Dispo: PACU then home Gemma Romero MD, PGY5 09/05/2019 16:17 Pager: [phone] documented in this encounter Plan of Treatment [...] - Negative for dysplasia/maligna ncy. 09/12/2019 11:21 [facility] at 1121 Clinical History Acquired tracheal fistula 09/12/2019 11:21 [facility] Attestation There was significant resident/fellow involvement in the diagnostic evaluation of this case. By the signature below, the attending physician certifies that they have personally conducted a gross and/or microscopic examination of the described specimens and rendered or confirmed the above diagnosis. 09/12/2019 11:21 [facility] at 1121 Gross Description [...] Janette Winston 09/06/2019 11:40 09/12/2019 11:21 EDT [facility] Resident/Sagar w: Kofi Catalan MD 09/12/2019 11:21 EDT [facility] Scanned Images 09/12/2019 11:21 EDT [facility] Tissue FISTULA / Unknown 09/05/2019 16:03 EST 09/06/2019 7:59 EST Owen Carpio MD PhD PATHOLOGY ORDERABL ES Final Result [facility] [address] [place] [address] documented in this encounter Visit Diagnoses Diagnosis [...] 1356 (New Bag - Prov ider: Sangeeta Cheshire)1529 (Continued by Anesthesia - Provider: LANA Bell)[id number] [...] 1354 (Not Given - Pr ovider: Sangeeta Cheshire - Reason: Other) lidocaine-EPINEPHrine 1 %-1:100,000 injection [...] 09/05/2019 documented in this encounter Care Teams Concessionist Relationship Specialty Start Date End Date Maile Payan FNP [address] [place] [phone] PCP - General 05/11/19 documented as of this encounter
--- OUTSIDE RECORDS SUMMARY | 2024-07-12 15:07 | XMS_ITS | Encounter Summary ---
Author Organization [facility] Address [address] [place] [address] Care Team Providers Care Gas Load Dispatcher Name Role Phone Maile Payan CONSULTING GROUP ANALYST Primary Care Provider Reason for Visit * Reason Comments Follow-up Here for follow up. Encounter Details Date Type Department Care Team (Late st Contact Info) Description 06/12/2019 11:30 EST Office Visit [facility] Acute Care Surgery - [address] [address] Marisol Castro MD [address] [facility], [address] [place] [phone] Acquired tracheal fistula (Primary Dx) [...] 36.9 ??C (98.4 ??F), temperature source Temporal, [id number] %. Awake, alert, NAD Patient very thin [...] Marisol Castro MD Acute Care Surgery Pager #[phone] 06/12/19 documented in this encounter Plan of Treatment Not on file documented as of this encounter Visit Diagnoses Diagnosis Acquired tracheal fistula- Primary documented in this encounter Historical Medications * This list may reflect changes made after this encounter. UNKNOWN TO PATIENT New prostrate medication per patient, unsure of name of medicine. 0 added in this encounter Care Teams Gas Load Dispatcher Relationship Specialty Start Date End Date Maile Payan FNP [address] [place] [phone] PCP - General 05/11/19 documented as of this encounter
--- OUTSIDE RECORDS SUMMARY | 2024-07-12 15:07 | XMS_ITS | Encounter Summary ---
Author Organization [facility] Address [address] [place] [address] Care Team Providers Care Checkroom Attendant Name Role Phone Unknown, Provider Primary Care Provider Unava ilable None, Provider Primary Care Provider Unavailabl e Maile Laureano ADMINISTRATIVE ANALYST Primary Care Provider [phone] Tatcristino Maile S ADMINISTRATIVE ANALYST Primary Care Provider [phone] Reason for Referral * Consult (Routine) - Denied Specialty Diagnoses / Procedures [facility] To Contact Otolaryngology Diagnoses ARDS (adult respiratory distress syndrome) ([facility]) Acute respiratory failure with hypoxia ([facility]) Leakage of tracheostomy site ([facility]) Martha Reddy MD Phone: tel: fax: [facility] [place] [address] [place] [address] Phone: tel: fax: Referral ID Status Reason Start Date Expiration Date V isits Requested Visits Authorized [id number] Denied Specialty Services Required 05/11/2019 1 0 Question Answer Reason for Request: Continued small air leak at tracheostomy site. Trach in place 03/28/2019-04/19/2019 for PNA/sepsis/ARDS. No infection and no drainage at site. Expected Discharge Date (Inpatient Only): 05/12/2019 * Referral (Routine/Next Available) - New Request Specialty Diagnoses / Procedures Referred By Contac t Referred To Contact Diagnoses Acute respiratory failure with hypoxia ([facility]) ARDS (adult respiratory distress syndrome) ([facility]) SIRISHA (acute kidney injury) ([facility]) Physical debility Martha Reddy MD Phone: tel: fax: [facility] [place] [address] Phone: tel: fax: Referral ID Status Reason Start Date Expiration Date Visits Requested Visits Authorized [id number] New Request Specialty Services Required 05/11/2019 1 1 Question Answer I certify that this patient is under my care and that I, or another Medicare allowed practitioner (DO CINTIA, ISMA) working with me, had a iakc-ga-yszj encounter with this patient on this date: 05/11/2019 I further certify that the fgmd-fi-rqwb encounter was in whole or in part [...] needs and plan of care Maile laureano MECHANICAL PRODUCT ENGINEER The patient? s homebound status is related [...] asessment, Wound care, Physical Therapy, Occupational therapy snf assessment needed related to this encounter: CP Status, Nutrition Status, [facility] Referral - Wound Care: (Please include care [...] By Judy morgan Referred To Contact Diagnoses [id number] Z51.89 Encounter for other specified aftercare-Z51.89[ICD-10-CM] Referral ID Status Reason Start Date Expiration Date Visits Re quested Visits Authorized [id number] 1 1 Encounter Details Date Type Department Care Team (Latest Contact Info) Description 04/23/2019 13:32 EDT - 05/12/2019 15:30 EST Hospital Encounter [facility] Unit Level [address] [place] [address] [id number] Eladio Otero MD [address] [place] [address] [phone] Martha Reddy MD [address] [place] [address] [phone] Atrial fibrillation with RVR (HCC-CMS) (Primary Dx); [...] debility Active Problems: Atrial fibrillation with RVR ([facility]) Admission date: 04/23/2019 Discharge date: 05/12/2019 Condition [...] in some 10 years. ??He presented to [facility] on 03/17/2019 with approximately 2.5 weeks of fever, loss of appetite, weakness, fatigue and diarrhea. ??Work-up at [facility] revealed pneumonia/ARDS and renal failure, as well as atrial fibrillation with RVR. ??He was transferred to the [facility] on 03/17/2019 for acute hypoxic respiratory failure [...] underwent comprehensive rehabilitation program including OT, PT, TANK CAR INSPECTOR and 24 hour rehab nursing,ongoing medical monitoring. Active Hospital Problems Diagnosis ??? Physical debility [R53.81] ??? Atrial fibrillation with RVR ([facility]) [I48.91] Exam stable at discharge. Lungs clear. [...] use on open skin wounds. Wool Alcoh-Min Erk-Gfrjp-Xjcnk cream Commonly known as: EUCERIN Apply to [...] Your Medications These medications were sent to [facility] ([facility]) [address] [address] ?? cholecalciferol (Vitamin D3) 1,000 unit tablet [...] triamcinolone 0.1 % ointment ?? Wool Alcoh-Min Eqn-Jhoot-Oxjqb cream You can get these medications from any pharmacy You don't need a prescription for these medications ?? acetaminophen 325 mg tablet ISSUES FOLLOWED DURING STAY: #Severe debility and deconditioning S/P pneumonia/MSSA bacteremia 03/17/2019 with secondary Impairedmobility and ADLs: ? PT/OT acute level therapies to address mobility, self-care, ADL deficits ? TANK CAR INSPECTOR to monitor swallowing and modified diet needs. Has been progressed to a regular consistency diet ? certified appliance service technician for self-care ADL support, education, patient/family training [...] Input from dermatology review review of images. [place] to be secondary to metoprolol. ? Treating [...] home Home health services: RN, OT, PT, DIRECTOR OF APPLICATION DEVELOPMENT ?? MECHANICAL PRODUCT ENGINEER Maile Laureano, on 05/17 at 2:40 pm. ENT referral placed to [facility] for outpatient visit to assess trach [...] another Medicare authorized non-physician practitioner (PA or MECHANICAL PRODUCT ENGINEER) or resident working with me, had a ftyx-sz-hvqj encounter with this patient on this date: 05/11/2019 I further certify that the qhsm-co-xzav encounter was in whole or in part related to the reason thepatient needs home health care.: Yes The patient has had a dgsv-py-vpfy visit by me or one of my [...] asessment Wound care Physical Therapy Occupational therapy snf assessment needed related to this encounter: CP Status Nutrition Status [facility] Referral - Wound Care: (Please include care [...] future appointments. cc: PCP: Maile Laureano [address] [facility] [address] Referring Prov: Shelly Guzman MD [address] [place] [address] Discharge Summary Completed: yes 45 minutes total time spent on discharge today including discussion and instruction to patient and caregiver, preparation of records, prescriptions and referrals. Portions of this document have been prepared with speech recognition software or keyboard data collection interviewer techniques. Minor irregularities or keyboarding misprints may be present. documented in this encounter Discharge Instructions * Discharge Instr - AVS First Page* Martha Reddy MD - 05/09/2019 14:40 EST You have a new appointment with MECHANICAL PRODUCT ENGINEER Maile Laureano, at [facility] ([phone]) on 05/17 at 2:40 PM. documented in [...] directed daily. 30 Cap 05/11/2019 Wool Alcoh-Min Sqv-Mbpzb-Zufga (EUCERIN) cream Apply to dry areas twice [...] 12 hours. 1 Each 05/11/2019 Wool Alcoh-Min Cuq-Bqxxe-Sfewe (EUCERIN) cream Apply to dry areas twice [...] Rochelle Lara, DMD - 05/12/2019 1530 EST [facility] - Inpatient Rehab Unit Discharge Planning Communication Tool Discharge Location and Caregiver: Plan to discharge Home in [place], [place] and S/O, Lawanda Rafal is able to toprovide support to patient. Patient will d/c to his SO, Lawanda's home at [address] [place] [address]. Home is one level with 3 steps in the back with no rail and 5 steps in the front with 2 rails. She is able to provide assist. Patient's new PCP is Maile DOTSON at [facility], . I will get him an apptwhen d/c date is firm. TASHA LOGAN 05/03 Follow-Up Therapy Services: Will use [employer] for . for DME and site not chosen for outpatient. LMB CM Discharge Equipment Needs: 05/11: 4 wheel Rolator was purchased at [employer], paid by CM department, and delivered to his room. Judi @ [phone] Pharmacy for Discharge Medications: [facility] Pharm[facility] Please fill d/c meds at [facility]. LMB CM * Martha Reddy MD - 05/11/2019 8383 EST INPATIENT PROGRESS NOTE DATE OF SERVICE:05/11/2019 [...] List Diagnosis ??? Atrial fibrillation with RVR ([facility]) ??? Acute respiratory failure with hypoxia ([facility]) ??? Septic shock ([facility]) ??? ARDS (adult respiratory distress syndrome) ([facility]) ??? SIRISHA (acute kidney injury) ([facility]) ??? Anemia ??? Thrombocytopenia ([facility]) ??? Bacteremia ??? Fever ??? Encephalopathy ??? [...] 0.1 % ointment topical BID Wool Alcoh-Min Hal-[place]-Alxij (EUCERIN) cream topical BID OBJECTIVE: Estimated body [...] ASSESSMENT: 64-year-old gentleman initially presenting 03/17/2019 to [facility] with several weeks of feve/weakness/fatigue/diarrhea with admitting [...] Diagnosis ??? ARDS (adult respiratory distress syndrome) ([facility]) [J80] ??? SIRISHA (acute kidney injury) ([facility]) [N17.9] ??? Atrial fibrillation with RVR ([facility]) [I48.91] ??? Acute respiratory failure with hypoxia ([facility]) [J96.01] Team/Patient/Family Communication: Patient: Need for ENT follow-up if the air leak does not seal PLAN: #Severe debility and deconditioning S/P pneumonia/MSSA bacteremia 03/17/2019 with secondary Impairedmobility and ADLs: ?? PT/OT acute level therapies to address mobility, self-care, ADL deficits ?? TANK CAR INSPECTOR to monitor swallowing and modified diet needs. Has been progressed to a regular consistency diet ?? certified appliance service technician for self-care ADL support, education, patient/family training [...] Input from dermatology review review of images. [place] to be secondary to metoprolol. ?? Treating symptomatically with triamcinolone, Benadryl. ?? Significantly improving DVT Prophylaxis:??Pharmacologic Prophylaxis:??Enoxaparin (Lovenox) 40 mg SQ daily ?? Multidisciplinary team rounds to review progress/discharge barriers and plans: Every Countersinker: Ange Jovel RN Case Manager: Judi Shin RN DISCHARGE PLAN: Significant other's home Home health services: RN, OT, PT, DIRECTOR OF APPLICATION DEVELOPMENT MECHANICAL PRODUCT ENGINEER Maile Laureano, on 05/17 at 2:40 pm. Expected Discharge Date: 05/12/19 Martha Reddy MD No future appointments. Portions of this document have been prepared with speech recognition software or keyboard data collection interviewer techniques. Minor irregularities or keyboarding misprints may be present. * Ange Jovel RN - 05/11/2019 1332 EST CM Activity and d/c note. Patient to d/c home tomorrow with family and will have f/u by Beryl LUCAS for RN/PT/OT/DIRECTOR OF APPLICATION DEVELOPMENT. Patient and family education will be completed [...] Elizabeth Licea PT - 05/11/2019 1100 EST [facility] Rehabilitation Therapy Inpatient [facility] Physical Therapy Discontinue/Discharge Note Date of [...] deviations around the mean (feet) 20-40 Male [phone] Female [phone] 41-60 Male [phone] Female [phone] (Gila, 2007) Age Gender 95% CI (meters) 95% CI (feet) 60-69 Male [phone] Female [phone] 70-79 Male [phone] Female [phone] 80-89 Male [phone] Female [phone] 2nd Session Time: Start time: 1130 Total [...] Afib with RVR. The patient lives at [address] [place], [place] [address] ?? History of present illness: Per Dr. Otero's H&P dated 04/23/19: Patient is a??64-year-old male with no prior medical history although he had not seen a physician in some 10 years. ??He presented to [facility] on 03/17/2019 with approximately 2.5 weeks of fever, loss of appetite, weakness,fatigue and diarrhea. ??Work-up at [facility] revealed pneumonia/ARDS and renal failure, as well as atrial fibrillation with RVR. ??[facility] respiratory failure with [...] - Wrist flexion - - - - Fire Loss Prevention Engineer strength Moderate Moderate Strong (symmetrical) Strong (symmetrical) [...] of the bed Assistance Needed: Independent Transfers: Chair/Pdj-iy-Mkgeu Transfer - The ability to safely transfer [...] Outcomes: PT Outcomes 04/24/2019 04/25/2019 04/26/2019 5-Time Axt-ut-Fztug (sec) 28.31 6MW Distance Walked (meters) [place] Balance Score (n/56) 20 Gait Speed - Distance (M) 4.27 Gait Speed - Time (sec) 88.38 Gait Speed - Velocity (meters/sec) 0.05 PT Outcomes 04/28/2019 05/01/2019 05/04/2019 5-Time Zmz-bu-Rdeba (sec) 6MW Distance Walked (meters) 37.97 176 [place] Balance Score (n/56) 39 Gait Speed - Distance (M) 10 Gait Speed - Time (sec) 53.04 Gait Speed - Velocity (meters/sec) 0.19 PT Outcomes 05/10/2019 05/11/2019 5-Time Zss-gd-Ceury (sec) 12.81 6MW Distance Walked (meters) 235.31 [...] short term goals and 6 of 9 skilled nursing goals and has appropriate level of assist [...] rollater Other recommendations: None Contact information: Pager: [phone] Elizabeth Licea, PT 05/11/2019 11:28 * Sheela Anthony OT - 05/11/2019 0902 EST [facility] Rehabilitation Therapy Inpatient [facility] Occupational Therapy Discontinue/Discharge Note Date of [...] completed today: Start time: 0900 Scheduled time: 1196-0594 Total Therapy Minutes: 60 minute(s) Intervention included: Therapeutic Activities (2) Therapeutic Exercise (2) -led skilled discussion re: smoking cessation and community resources and programs available thru [facility] if needed. -Completed functional transfer training to [...] and coccyx wound Cognitive FIM Comprehension: Complete [place] Expression: Complete [place] Social Interaction: Complete [place] Problem Solving: Complete [place] Memory: Complete [place] Skills requiring prompting include Areas of Occupation [...] ADL routine??and maintain O2 sats Met ?? Estate Administrator Goals:?3 weeks All Prison Goals met ?? ? Pt will complete [...] Equipment: Shower Chair-issue thru lily lewis Pager: [phone] Sheela Anthony OT, 05/11/2019, 14:03 * Judi [...] 0.1 % ointment topical BID Wool Alcoh-Min Yhi-Rdnwi-Jgggl (EUCERIN) cream topical BID OBJECTIVE: Estimated body [...] ASSESSMENT: 64-year-old gentleman initially presenting 03/17/2019 to [facility] with several weeks of feve/weakness/fatigue/diarrhea with admitting [...] Diagnosis ??? ARDS (adult respiratory distress syndrome) ([facility]) [J80] ??? SIRISHA (acute kidney injury) ([facility]) [N17.9] ??? Atrial fibrillation with RVR ([facility]) [I48.91] ??? Acute respiratory failure with hypoxia ([facility]) [J96.01] Team/Patient/Family Communication: PLAN: #Severe debility and deconditioning S/P pneumonia/MSSA bacteremia 03/17/2019 with secondary Impairedmobility and ADLs: ?? PT/OT acute level therapies to address mobility, self-care, ADL deficits ?? TANK CAR INSPECTOR to monitor swallowing and modified diet needs. Has been progressed to a regular consistency diet ?? certified appliance service technician for self-care ADL support, education, patient/family training [...] Input from dermatology review review of images. [place] to be secondary to metoprolol. ?? Treating symptomatically with triamcinolone, Benadryl. ?? Significantly improving DVT Prophylaxis:??Pharmacologic Prophylaxis:??Enoxaparin (Lovenox) 40 mg SQ daily ?? Multidisciplinary team rounds to review progress/discharge barriers and plans: Every Countersinker: Ange Jovel RN Case Manager: Judi Shin RN TEAM ROUNDS: patients full status reviewed and discharge barriers discussed. Pt. progressing well and tolerating therapy. Refer to rounds report in chart. DISCHARGE PLAN: Significant other's home Home health services: RN, OT, PT, DIRECTOR OF APPLICATION DEVELOPMENT MECHANICAL PRODUCT ENGINEER Maile Laureano, on 05/17 at 2:40 pm. Expected Discharge Date: 05/12/19 Martha Reddy MD No future appointments. Portions of this document have been prepared with speech recognition software or keyboard data collection interviewer techniques. Minor irregularities or keyboarding misprints may be present. * Elizabeth Licea, PT - 05/10/2019 0815 EST [facility] Rehabilitation Therapy [facility]patient [facility] Physical Therapy Encounter Note Date of [...] putting them at increased risk for falling. ([place], 2008, Kashif, 2004, Ashlie, 2016) 1. Sitting to standing 3 2. Standing unsupported 4 3. Sitting unsupported feet on floor 4 4. Standing to sitting 4 5. Transfers 3 6. Standing unsupported with eyes closed 4 7. Standing unsupported with feet together 3 8. Reaching forward with outstretched arm 4 9. system support technician object from floor 4 10.Turn look behind [...] D/C recommendations Primary Therapist: Contact information: Pager: [phone] Elizabeth Licea, PT 05/10/2019 15:08 * Viktoria Farr RN - 05/10/2019 0717 EST Images from the original note were [...] 05/10/2019 0657 EST Rehabilitation Therapies Inpatient Rehabilitation [facility] Occupational Therapy Encounter Note Date of Service: 05/10/2019 Subjective/Objective SUBJECTIVE: I'm feeling pretty good about everything. pt's response when asked if he feels ready to return home. OBJECTIVE: First Session Start time: 1000 Scheduled time: 6651-7923 Total Therapy Minutes: 60 minute(s) Interventions included: [...] Second Session Start time: 1330 Scheduled time: 0656-2337 Total Therapy Minutes: 30 minute(s) Interventions included: [...] 6:57 * Martha Reddy MD - 05/09/2019 0988 EST INPATIENT PROGRESS NOTE DATE OF SERVICE:05/09/2019 [...] 0.1 % ointment topical BID Wool Alcoh-Min Sbl-Uxcfl-Jlevz (EUCERIN) cream topical BID OBJECTIVE: Estimated body [...] ASSESSMENT: 64-year-old gentleman initially presenting 03/17/2019 to [facility] with several weeks of feve/weakness/fatigue/diarrhea with admitting [...] Diagnosis ??? ARDS (adult respiratory distress syndrome) ([facility]) [J80] ??? SIRISHA (acute kidney injury) ([facility]) [N17.9] ??? Atrial fibrillation with RVR ([facility]) [I48.91] ??? Acute respiratory failure with hypoxia ([facility]) [J96.01] Team/Patient/Family Communication: PT/OT: Patient progressing [...] to address mobility, self-care, ADL deficits ?? TANK CAR INSPECTOR to monitor swallowing and modified diet needs. Has been progressed to a regular consistency diet ?? certified appliance service technician for self-care ADL support, education, patient/family training [...] Input from dermatology review review of images. [place] to be secondary to metoprolol. ?? Treating symptomatically with triamcinolone, Benadryl. ?? Significantly improving DVT Prophylaxis:??Pharmacologic Prophylaxis:??Enoxaparin (Lovenox) 40 mg SQ daily ?? Multidisciplinary team rounds to review progress/discharge barriers and plans: Every Countersinker: Ange Jovel RN Case Manager: Judi Shin RN DISCHARGE PLAN: Significant other's home Home health services: RN, OT, PT, DIRECTOR OF APPLICATION DEVELOPMENT MECHANICAL PRODUCT ENGINEER Maile Laureano, on 05/17 at 2:40 pm. Expected Discharge Date: 05/15/19 adjustment of date to planning now for 05/12. Will review formallyrounds tomorrow. Martha Reddy MD No future appointments. Portions of this document have been prepared with speech recognition software or keyboard data collection interviewer techniques. Minor irregularities or keyboarding misprints may [...] Tuesday to assist with expenses. I called [facility], and have scheduled an appointment for him with MECHANICAL PRODUCT ENGINEER Maile Laureano, on 05/17 at 2:40 pm. Judi Shin RN CM * [address], Alicia Wilson RD - 05/09/2019 1258 EST Nutrition Reassessment: ?? Medical Summary: Shirlene Bryan is a 64 y.o. male with no prior medical history although he had not seen a physician in some 10 years. ??He presented to [facility] on 03/17/2019 with approximately 2.5 weeks of fever, loss of appetite, weakness, fatigue and diarrhea. ??Work-up at [facility] revealed pneumonia/ARDS and renal failure, as well as atrial fibrillation with RVR. ??He was transferred to the [facility] on 03/17/2019 for acute hypoxic respiratory failure [...] kg (119 lb)??-- 04/23/19 UBW: admitted to [facility] 03/17/19 70.35kg Weight Change:??-16.35 kg in 5 [...] 0.1 % ointment topical BID Wool Alcoh-Min Qlz-Xaumh-Zhorr (EUCERIN) cream topical BID Pertinent Labs: No new ?? Estimated Nutrition Needs: 30-35 kcal/kg (using 55.8 kg) = 9486-6754 kcals/day 1.5 g/kg protein (using 55.8 kg) = 84 g protein/day Estimated Nutrition Intake: 100 % of meals ?? Assessment: Patient has lost 23% body weight since admission to [facility] 03/17/19, likely d/t loss of lean body [...] ordered -RD following Alicia Post RD, CD [facility] Dietitian Phone: [phone] * Elizabeth Licea, PT - 05/09/2019 0842 EST [facility] Rehabilitation Therapy [facility]patient [facility] Physical Therapy Encounter Note Date of [...] if needed. Primary Therapist: Contact information: Pager: [phone] Elizabeth Licea PT 05/09/2019 11:51 * Sheela Anthony OT - 05/09/2019 0708 EST Rehabilitation Therapies Inpatient [facility] Occupational Therapy Encounter Note Date of Service: 05/09/2019 Subjective/Objective SUBJECTIVE: I think we are all set and ready for Tuesday. I might even miss you guys OBJECTIVE: First Session Start time: 929 Scheduled time: 8084-4915 Total Therapy Minutes: 60 minute(s) Interventions included: [...] Second Session Start time: 1330 Scheduled time: 3725-8545 Total Therapy Minutes: 30 minute(s) Interventions included: Therapeutic Activities (2) -Pt completed eye-hand coordination task using [employer] Integrated Therapy System ([employer]), in time paced setting, with focus on [...] regarding d/c planning. Communicated via email with lead case manager to determine if ensure nutritional drinks can [...] 7:08 * Martha Reddy MD - 05/08/2019 1558 EST INPATIENT PROGRESS NOTE DATE OF SERVICE:05/08/2019 [...] 0.1 % ointment topical BID Wool Alcoh-Min Amx-Mmipe-Bvaec (EUCERIN) cream topical BID OBJECTIVE: Estimated body [...] ASSESSMENT: 64-year-old gentleman initially presenting 03/17/2019 to [facility] with several weeks of feve/weakness/fatigue/diarrhea with admitting [...] Diagnosis ??? ARDS (adult respiratory distress syndrome) ([facility]) [J80] ??? SIRISHA (acute kidney injury) ([facility]) [N17.9] ??? Atrial fibrillation with RVR ([facility]) [I48.91] ??? Acute respiratory failure with hypoxia ([facility]) [J96.01] Team/Patient/Family Communication: PLAN: #Severe debility and deconditioning S/P pneumonia/MSSA bacteremia 03/17/2019 with secondary Impairedmobility and ADLs: ?? PT/OT acute level therapies to address mobility, self-care, ADL deficits ?? TANK CAR INSPECTOR to monitor swallowing and modified diet needs. Has been progressed to a regular consistency diet ?? certified appliance service technician for self-care ADL support, education, patient/family training [...] Input from dermatology review review of images. [place] to be secondary to metoprolol. ?? Treating symptomatically with triamcinolone, Benadryl. ?? Significantly improving DVT Prophylaxis:??Pharmacologic Prophylaxis:??Enoxaparin (Lovenox) 40 mg SQ daily ?? Multidisciplinary team rounds to review progress/discharge barriers and plans: Every Countersinker: Ange Jovel RN DISCHARGE PLAN: Significant other's home Home health services: RN, OT, PT, DIRECTOR OF APPLICATION DEVELOPMENT Expected Discharge Date: 05/15/19 Martha Reddy MD No future appointments. Portions of this document have been prepared with speech recognition software or keyboard data collection interviewer techniques. Minor irregularities or keyboarding misprints may be present. * Elizabeth Licea, PT - 05/08/2019 1248 EST [facility] Inpatient Acute Rehabilitation Unit Durable Medical Equipment Prescription (Non-Wheelchair) Name: Shirlene Bryan Date of : 1955 Address: [address] [place] [address] (home) Insurance: Payor: [facility] () / Plan: MEDICARE (R) / Product Type: *No Product type* / Referring Physician: Martha Reddy MD Primary Physician: Provider None Medical Diagnosis: Patient Active Problem List Diagnosis Code ??? Atrial fibrillation with RVR ([facility]) I48.91 ??? Acute respiratory failure with hypoxia ([facility]) J96.01 ??? Septic shock ([facility]) A41.9, R65.21 ??? ARDS (adult respiratory distress syndrome) ([facility]) J80 ??? SIRISHA (acute kidney injury) ([facility]) N17.9 ??? Anemia D64.9 ??? Thrombocytopenia ([facility]) D69.6 ??? Bacteremia R78.81 ??? Fever R50.9 [...] 12:[address] Dylan Boyle: [id number] Dr Eladio Otero: [id number] Dr Martha Reddy: [id number] Cosigned by Martha Reddy MD at 05/08/2019 14:06 EST * Ange Jovel RN - 05/08/2019 1146 EST CM Activity note. Gas card given to patient for Britt. Another gas card will be given when she is coming in for training for d.blessing, * Elizabeth Licea, PT - 05/08/2019 0856 EST [facility] Rehabilitation Therapy Inpatient [facility] Physical Therapy Encounter Note Date of [...] endurance than when last seen by this continuity writer. He requires fewer rest breaks and [...] 05/08/2019 0717 EST Rehabilitation Therapies Inpatient [facility] Occupational Therapy Encounter Note Date of Service: 05/08/2019 Subjective/Objective SUBJECTIVE: I didn't feel very winded while I was cooking and I was just focused on making the food. pt's response when OT commented on pt's improved endurance. OBJECTIVE: First Session Start time: 1100 Scheduled time: 5038-5353 Total Therapy Minutes: 60 minute(s) Interventions included: [...] to request shower chair. -Collected magazines from [employer] to focus on increased endurance and increasing pt comfort level with 4ww use. Pt utilized 4ww seat to transport magazines. Vital signs: Vital signs have been stable with interventions and were not monitored. Patient/Family Education: Topic: Benefits of activity D/C planning Adaptive equipment Learner: patient Method: verbal Barriers to Learning: none noted Outcome: verbalized understanding Second Session Start time: 1330 Scheduled time: 8293-6777 Total Therapy Minutes: 30 minute(s) Interventions included: [...] 0.1 % ointment topical BID Wool Alcoh-Min Sdq-Zmilm-Shahk (EUCERIN) cream topical BID OBJECTIVE: Estimated body [...] ASSESSMENT: 64-year-old gentleman initially presenting 03/17/2019 to [facility] with several weeks of feve/weakness/fatigue/diarrhea with admitting [...] Diagnosis ??? ARDS (adult respiratory distress syndrome) ([facility]) [J80] ??? SIRISHA (acute kidney injury) ([facility]) [N17.9] ??? Atrial fibrillation with RVR ([facility]) [I48.91] ??? Acute respiratory failure with hypoxia ([facility]) [J96.01] Team/Patient/Family Communication: PLAN: Active Problems: Atrial fibrillation with RVR ([facility]) Acute respiratory failure with hypoxia ([facility]) ARDS (adult respiratory distress syndrome) ([facility]) SIRISHA (acute kidney injury) ([facility]) #Severe debility and deconditioning S/P pneumonia/MSSA bacteremia 03/17/2019 with secondary Impairedmobility and ADLs: ?? PT/OT acute level therapies to address mobility, self-care, ADL deficits ?? TANK CAR INSPECTOR to monitor swallowing and modified diet needs. Has been progressed to a regular consistency diet ?? certified appliance service technician for self-care ADL support, education, patient/family training [...] Input from dermatology review review of images. [place] to be secondary to metoprolol. ?? Treating symptomatically with triamcinolone, Benadryl. ?? Significantly improving DVT Prophylaxis:??Pharmacologic Prophylaxis:??Enoxaparin (Lovenox) 40 mg SQ daily ?? Multidisciplinary team rounds to review progress/discharge barriers and plans: Every Countersinker: Ange Jovel RN DISCHARGE PLAN: Significant other's home Home health services: RN, OT, PT, DIRECTOR OF APPLICATION DEVELOPMENT Expected Discharge Date: 05/15/19 Martha Reddy MD No future appointments. Portions of this document have been prepared with speech recognition software or keyboard data collection interviewer techniques. Minor irregularities or keyboarding misprints may [...] inhalation DAILY triamcinolone topical BID Wool Alcoh-Min Ogm-Rnzhd-Yihtc topical BID acetaminophen 650 mg Q4H PRN [...] Quit smoking - he saw tobacco cessation alcohol and drug counselor last week Dysphagia - related to [...] Tracy, PT - 05/07/2019 0850 EST [facility] Rehabilitation Therapy Inpatient [facility] Physical Therapy Encounter Note Date of [...] and stairs Primary Therapist: Contact information: Pager: [phone] Caitie Tracy PT 05/07/2019 8:55 * Sheela Anthony, OT - 05/07/2019 0801 EST Rehabilitation Therapies Inpatient [facility] Occupational Therapy Encounter Note Date of Service: 05/07/2019 Subjective/Objective SUBJECTIVE: I don't feel as winded while I walk around anymore. re: pt's response when OT stated that he can now talk while he is walking without becoming fatigued. OBJECTIVE: First Session Start time: 829 Scheduled time: 0640-7112 Total Therapy Minutes: 60 minute(s) Interventions included: [...] OT provided verbal cueing for PLB. -Completed Stribe connect-4 game with a focus on increased [...] Second Session Start time: 1100 Scheduled time: 2429-6279 Total Therapy Minutes: 30 minute(s) Interventions included: [...] Horvath, OT - 05/05/2019 1056 EDT [facility] Rehabilitation Therapy Inpatient Rehabilitation [facility] Occupational Therapy Encounter Note Date of [...] standing balance/tolerance ax taking turns to play [employer] game. ~2min before requesting seated rest break. [...] Elizabeth Licea, PT - 05/04/2019 2006 EDT [facility] Rehabilitation Therapy Inpatient [facility] Physical Therapy Progress Note Date of [...] in some 10 years. ??He presented to [facility] on 03/17/2019 with approximately 2.5 weeks of fever, loss of appetite, weakness,fatigue and diarrhea. ??Work-up at [facility] revealed pneumonia/ARDS and renal failure, as well as atrial fibrillation with RVR. ??[facility] failure with [...] dated 05/04/19 for details. Breath sounds (from [facility]): Absent B bases. Crackles at L upper [...] Lumbar Spine: ?? Muscle Performance: Strength: From [facility] Upper Quarter: UE MMT Right Left Shoulder flexion 4/5 3+/5 Shoulder abduction - - Elbow flexion 4/5 3+/5 Elbow extension 4/5 4/5 Wrist extension - - Wrist flexion - - Fire Loss Prevention Engineer strength Moderate Moderate ?? Cervical Spine: NE [...] the bed Assistance Needed: Supervision, RW Transfers: Chair/Far-bm-Vadwn Transfer - The ability to safely transfer [...] Outcomes: PT Outcomes 04/24/2019 04/25/2019 04/26/2019 5-Time Mgq-ce-Gmpod (sec) 28.31 6MW Distance Walked (meters) [place] Balance Score (n/56) 20 Gait Speed - Distance (M) 4.27 Gait Speed - Time (sec) 88.38 Gait Speed - Velocity (meters/sec) 0.05 PT Outcomes 04/28/2019 05/01/2019 05/04/2019 5-Time Bmz-wj-Ykfya (sec) 6MW Distance Walked (meters) 37.97 176 [...] provided by physical therapist and/or physical therapist assistant professor of surgery as appropriate Frequency: 2 times per day [...] therapy Other recommendations: None Contact information: Pager: [phone] Elizabeth Licea PT 05/04/2019 20:09 * Eladio [...] 0.1 % ointment topical BID Wool Alcoh-Min Wub-Zvsth-Jcorn (EUCERIN) cream topical BID Objective/Physical Exam: VS: [...] bleed 04/18/2019 Priority: Medium ??? Septic shock ([facility]) 03/19/2019 Priority: Medium ??? (H)ARDS (adult respiratory distress syndrome) ([facility]) 03/19/2019 Priority: Medium ??? (H)SIRISHA (acute kidney injury) ([facility]) 03/19/2019 Priority: Medium ??? Anemia 03/19/2019 Priority: Medium ??? Thrombocytopenia ([facility]) 03/19/2019 Priority: Medium ??? Bacteremia 03/19/2019 Priority: Medium ??? Fever 03/19/2019 Priority: Medium ??? Encephalopathy 03/19/2019 Priority: Medium ??? (H)Atrial fibrillation with RVR ([facility]) 03/17/2019 Priority: Medium ??? (H)Acute respiratory failure with hypoxia ([facility]) 03/17/2019 Priority: Medium Plan: 1. Debility following prolonged hospitalization, multiple medical comorbidities, including hypoxic respiratory failure: Residual impaired mobility, self-cares, swallowing function. Full PT, OT, TANK CAR INSPECTOR assessments and therapies to address mobility, self [...] Tracy, PT - 05/04/2019 0842 EDT [facility] Rehabilitation Therapy Inpatient [facility] Physical Therapy Encounter Note Date of [...] risk for falling. (Barb, 2008, Kashif, 2004, Ashlei, 2016) 1. Sitting to standing 3 2. Standing unsupported 4 3. Sitting unsupported feet on floor 4 4. Standing to sitting 3 5. Transfers 3 6. Standing unsupported with eyes closed 3 7. Standing unsupported with feet together 4 8. Reaching forward with outstretched arm 4 9. system support technician object from floor 3 10.Turn look behind [...] deviations around the mean (feet) 20-40 Male [phone] Female [phone] 41-60 Male [phone] Female [phone] (Gila, 2007) Age Gender 95% CI (meters) 95% CI (feet) 60-69 Male [phone] Female [phone] 70-79 Male [phone] Female [phone] 80-89 Male [phone] Female [phone] Patient/Family Education: Topic: Improvements in outcomes, endurance [...] Primary Therapist: Elizabeth Licea Contact information: Pager: [phone] Caitie Tracy, PT 05/04/2019 16:09 * Sheela Anthony OT - 05/04/2019 0707 EDT [facility] Rehabilitation Therapy Inpatient Rehabilitation [facility] Occupational Therapy Progress Note Date of [...] towards counter. -increase SOB noted when retrieving dry primer powder blender from lower cabinet, however, however able to [...] 28 ?? Age/gender based healthy normative values ([place]-Rahul, 2003) Male Range (seconds): mean ?? 2 [...] if not Attempted: (Pt prefers to wear social problems specialist socks) Toileting: Incidental touching;Supervision;Set-up / clean-up Toilet [...] maintain O2 sats above 89% Progressing ?? Prison Goals: 3 weeks PROGRESSING-continue all goals ?? [...] home with home health OT services. Pager: [phone] Sheela Anthony OT, 05/04/2019, 10:04 * Eladio [...] 0.1 % ointment topical BID Wool Alcoh-Min Ixa-Ezzko-Bgnpo (EUCERIN) cream topical BID Objective/Physical Exam: VS: [...] bleed 04/18/2019 Priority: Medium ??? Septic shock ([facility]) 03/19/2019 Priority: Medium ??? (H)ARDS (adult respiratory distress syndrome) ([facility]) 03/19/2019 Priority: Medium ??? (H)SIRISHA (acute kidney injury) ([facility]) 03/19/2019 Priority: Medium ??? Anemia 03/19/2019 Priority: Medium ??? Thrombocytopenia ([facility]) 03/19/2019 Priority: Medium ??? Bacteremia 03/19/2019 Priority: Medium ??? Fever 03/19/2019 Priority: Medium ??? Encephalopathy 03/19/2019 Priority: Medium ??? (H)Atrial fibrillation with RVR ([facility]) 03/17/2019 Priority: Medium ??? (H)Acute respiratory failure with hypoxia ([facility]) 03/17/2019 Priority: Medium Plan: 1. Debility following prolonged hospitalization, multiple medical comorbidities, including hypoxic respiratory failure: Residual impaired mobility, self-cares, swallowing function. Full PT, OT, TANK CAR INSPECTOR assessments and therapies to address mobility, self [...] Licea, PT - 05/03/2019 0846 EDT [facility] Rehabilitation Therapy Inpatient [facility] Physical Therapy Encounter Note Date of [...] Tracy, PT - 05/03/2019 0846 EDT [facility] Rehabilitation Therapy Inpatient [facility] Physical Therapy Encounter Note Date of [...] Primary PT Primary Therapist: Contact information: Pager: [phone] Caitie Tracy, HARPAL 05/03/2019 8:46 * Jody Whittington Keshav, [facility]-TANK CAR INSPECTOR - 05/03/2019 0826 EDT Speech-Language Pathology Clinical Swallow Follow-Up TANK CAR INSPECTOR Diagnosis: Dysphagia, pharyngeal phase: Medical Diagnosis: MSSA [...] in some 10 years. ??He presented to [facility] on 03/17/2019 with approximately 2.5 weeks of fever, loss of appetite, weakness, fatigue and diarrhea. ??Work-up at [facility] revealed pneumonia/ARDS and renal failure, as well as atrial fibrillation with RVR. ??He was transferred to the [facility] on 03/17/2019 for acute hypoxic respiratory failure [...] Date ??? ARDS (adult respiratory distress syndrome) ([facility]) Current Diet: Dysphagia Diet Level: 3 (soft, [...] BID Shanon Reyes MD ??? Wool Alcoh-Min Epv-Ljloo-Llpxa (EUCERIN) cream topical BID Shanon Reyes MD [...] able to self administer all items without TANK CAR INSPECTOR assistance using a spoon, cup and straw. [...] diet. Do not anticipate further need for TANK CAR INSPECTOR services at this time. Patient to be discharged from TANK CAR INSPECTOR services. Functional Communication Measures ([place] [employer], 2002). The Functional Communication Measures (FCM???s) are a series of 7 point rating scales, ranging fromleast functional (Level 1) to most functional (Level 7). They have been developed by SUE to describe different aspects of patient???s functional communication and swallowing abilities over the course of TANK CAR INSPECTOR intervention. Swallowing Level 7: Individual's ability to eat independently is not limited by swallow function. Swallowing is safe and efficient for all consistencies. Compensatory strategies are effectively used when needed. GOALS: Prison Goal: Swallowing Level 7: Individual's ability to [...] Goal met - discontinue PLANS/RECOMMENDATIONS: No further TANK CAR INSPECTOR indicated at this time. As a result [...] applesauce with a liquid wash, or whole vfp-fz-s-time with a liquid wash - decided per patient preference ?? FEEDING/EATING STRATEGIES: Patient may eat independently. When eating, patient should be upright at 90 degrees as tolerated. Patient should take small, single sips of thin liquid. Patient may use a straw when drinking liquids. Patient should alternate liquids and solids during meal time. Jody Whittington [facility]-TANK CAR INSPECTOR 05/03/2019 11:53 * Mar Tello, OTR - 05/03/2019 0706 EDT Rehabilitation Therapies Inpatient Rehabilitation [facility] Occupational Therapy Encounter Note Date of Service: 05/03/2019 Subjective/Objective SUBJECTIVE: I was feeling a little depressed last week. But now I can see that I'm making progress. OBJECTIVE: First Session Start time: 1030 Scheduled time: 2132-8980 Total Therapy Minutes: 60 minute(s) Interventions included: [...] (P) 28 Age/gender based healthy normative values ([place]-Rahul, 2003) Male Range (seconds): mean ?? 2 [...] with rest breakin between sets. -Completed standing OggiFinogiga game with a focus on increased endurance [...] in some 10 years. ??He presented to [facility] on 03/17/2019 with approximately 2.5 weeks of fever, loss of appetite, weakness, fatigue and diarrhea. ??Work-up at [facility] revealed pneumonia/ARDS and renal failure, as well as atrial fibrillation with RVR. ??He was transferred to the [facility] on 03/17/2019 for acute hypoxic respiratory failure [...] (119 lb) -- 04/23/19 UBW: admitted to [facility] 03/17/19 70.35kg Weight Change: -16.35 kg in [...] 0.1 % ointment topical BID Wool Alcoh-Min Qhu-Ioiun-Zivlm (EUCERIN) cream topical BID Pertinent Labs: No new ?? Estimated Nutrition Needs: 30-35 kcal/kg (using 55.8 kg) = 5128-3397 kcals/day 1.5 g/kg protein (using 55.8 kg) = 84 g protein/day ?? Estimated Nutrition Intake: 100 % meals ?? Assessment: Patient has lost 23% body weight since admission to [facility] 03/17/19, likely d/t loss of lean body [...] Post RD, CD Kalyani Lowery Dietitian Phone: [phone] * Eladio Otero MD - 05/02/2019 1349 [...] 0.1 % ointment topical BID Wool Alcoh-Min Hyu-Dckzb-Bkucu (EUCERIN) cream topical BID Objective/Physical Exam: VS: [...] bleed 04/18/2019 Priority: Medium ??? Septic shock ([facility]) 03/19/2019 Priority: Medium ??? (H)ARDS (adult respiratory distress syndrome) ([facility]) 03/19/2019 Priority: Medium ??? (H)SIRISHA (acute kidney injury) ([facility]) 03/19/2019 Priority: Medium ??? Anemia 03/19/2019 Priority: Medium ??? Thrombocytopenia ([facility]) 03/19/2019 Priority: Medium ??? Bacteremia 03/19/2019 Priority: Medium ??? Fever 03/19/2019 Priority: Medium ??? Encephalopathy 03/19/2019 Priority: Medium ??? (H)Atrial fibrillation with RVR ([facility]) 03/17/2019 Priority: Medium ??? (H)Acute respiratory failure with hypoxia ([facility]) 03/17/2019 Priority: Medium Plan: 1. Debility following prolonged hospitalization, multiple medical comorbidities, including hypoxic respiratory failure: Residual impaired mobility, self-cares, swallowing function. Full PT, OT, TANK CAR INSPECTOR assessments and therapies to address mobility, self [...] 05/02/2019 0905 EDT Rehabilitation Therapies Inpatient Rehabilitation [facility] Occupational Therapy Encounter Note Date of Service: 05/02/2019 Subjective/Objective SUBJECTIVE: I think some walking would be good for me. re: pt's response when asked if he would like to walk to the gym. OBJECTIVE: First Session Start time: 929 Scheduled time: 1866-7658 Total Therapy Minutes: 60 minute(s) Interventions included: [...] rwfor support. Tolerated ~1.5 min standing. -Completed Numblebee game in standing to focus on increased [...] Licea, PT - 05/02/2019 0837 EDT [facility] Rehabilitation Therapy Inpatient Rehabilitation [facility] Physical Therapy Encounter Note Date of [...] 8:40 * Siomara Fung OT - 05/01/2019 0116 EDT [facility] Rehabilitation Therapy Inpatient Rehabilitation [facility] Occupational Therapy Encounter Note Date of [...] progressing standing and duration (90 seconds) Pager: [phone] SIOMARA FUNG OT, 05/01/2019, 15:51 * lEadio Otero MD - 05/01/2019 1341 EDT Images [...] 0.1 % ointment topical BID Wool Alcoh-Min Wqg-Sxvhy-Mrjiy (EUCERIN) cream topical BID Objective/Physical Exam: VS: [...] bleed 04/18/2019 Priority: Medium ??? Septic shock ([facility]) 03/19/2019 Priority: Medium ??? (H)ARDS (adult respiratory distress syndrome) ([facility]) 03/19/2019 Priority: Medium ??? (H)SIRISHA (acute kidney injury) ([facility]) 03/19/2019 Priority: Medium ??? Anemia 03/19/2019 Priority: Medium ??? Thrombocytopenia ([facility]) 03/19/2019 Priority: Medium ??? Bacteremia 03/19/2019 Priority: Medium ??? Fever 03/19/2019 Priority: Medium ??? Encephalopathy 03/19/2019 Priority: Medium ??? (H)Atrial fibrillation with RVR ([facility]) 03/17/2019 Priority: Medium ??? (H)Acute respiratory failure with hypoxia ([facility]) 03/17/2019 Priority: Medium Plan: 1. Debility following prolonged hospitalization, multiple medical comorbidities, including hypoxic respiratory failure: Residual impaired mobility, self-cares, swallowing function. Full PT, OT, TANK CAR INSPECTOR assessments and therapies to address mobility, self [...] Licea, PT - 05/01/2019 0845 EDT [facility] Rehabilitation Therapy Inpatient [facility] Physical Therapy Encounter Note Date of [...] stairs HEP Primary Therapist: Contact information: Pager: [phone] Elizabeth Licea PT 05/01/2019 10:49 * Sheela Anthony, OT - 05/01/2019 0718 EDT Rehabilitation Therapies Inpatient Rehabilitation [facility] Occupational Therapy Encounter Note Date of [...] 7:18 * Eladio Otero MD - 04/30/2019 9520 EDT Images from the original note were [...] 0.1 % ointment topical BID Wool Alcoh-Min Inv-Vresr-Jtejl (EUCERIN) cream topical BID Objective/Physical Exam: VS: [...] bleed 04/18/2019 Priority: Medium ??? Septic shock ([facility]) 03/19/2019 Priority: Medium ??? (H)ARDS (adult respiratory distress syndrome) ([facility]) 03/19/2019 Priority: Medium ??? (H)SIRISHA (acute kidney injury) ([facility]) 03/19/2019 Priority: Medium ??? Anemia 03/19/2019 Priority: Medium ??? Thrombocytopenia ([facility]) 03/19/2019 Priority: Medium ??? Bacteremia 03/19/2019 Priority: Medium ??? Fever 03/19/2019 Priority: Medium ??? Encephalopathy 03/19/2019 Priority: Medium ??? (H)Atrial fibrillation with RVR ([facility]) 03/17/2019 Priority: Medium ??? (H)Acute respiratory failure with hypoxia ([facility]) 03/17/2019 Priority: Medium Plan: 1. Debility following prolonged hospitalization, multiple medical comorbidities, including hypoxic respiratory failure: Residual impaired mobility, self-cares, swallowing function. Full PT, OT, TANK CAR INSPECTOR assessments and therapies to address mobility, self [...] inhalation DAILY triamcinolone topical BID Wool Alcoh-Min Ifj-Gqmeb-Bregm topical BID acetaminophen 650 mg Q4H PRN [...] weakness and debility from prolonged critical illness TANK CAR INSPECTOR - D4 with thins Mixed iron deficiency [...] 40 Shanon Reyes MD * Jody Whittington CCC-TANK CAR INSPECTOR - 04/30/2019 0994 EDT Speech-Language Pathology Contact Note Patient is currently not available for TANK CAR INSPECTOR follow-up this morning secondary to nursing needs. Per nursing and MD documentation, patient continues with audible air escape at stoma site. Therefore, do not anticipate diet texture advancement to regular this date secondary to altered pressures for swallowing impacting pharyngeal clearance. TANK CAR INSPECTOR to follow-up later this week. Jody Whittington CCC-TANK CAR INSPECTOR 04/30/2019 9:54 * Elizabeth Licea, PT - 04/30/2019 0839 EDT [facility] Rehabilitation Therapy Inpatient Rehabilitation [facility] Physical Therapy Encounter Note Date of [...] 04/30/2019 0754 EDT Rehabilitation Therapies Inpatient Rehabilitation [facility] Occupational Therapy Encounter Note Date of Service: 04/30/2019 Subjective/Objective SUBJECTIVE: I'm getting there. re: pt's response when OT stated that endurance is improving. OBJECTIVE: First Session Start time: 829 Scheduled time: 7858-6003 Total Therapy Minutes: 60 minute(s) Interventions included: [...] 0.1 % ointment topical BID Wool Alcoh-Min Xqv-Qlpqc-Paccq (EUCERIN) cream topical BID Objective/Physical Exam: VS: [...] bleed 04/18/2019 Priority: Medium ??? Septic shock ([facility]) 03/19/2019 Priority: Medium ??? (H)ARDS (adult respiratory distress syndrome) ([facility]) 03/19/2019 Priority: Medium ??? (H)SIRISHA (acute kidney injury) ([facility]) 03/19/2019 Priority: Medium ??? Anemia 03/19/2019 Priority: Medium ??? Thrombocytopenia ([facility]) 03/19/2019 Priority: Medium ??? Bacteremia 03/19/2019 Priority: Medium ??? Fever 03/19/2019 Priority: Medium ??? Encephalopathy 03/19/2019 Priority: Medium ??? (H)Atrial fibrillation with RVR ([facility]) 03/17/2019 Priority: Medium ??? (H)Acute respiratory failure with hypoxia ([facility]) 03/17/2019 Priority: Medium Plan: 1. Debility following prolonged hospitalization, multiple medical comorbidities, including hypoxic respiratory failure: Residual impaired mobility, self-cares, swallowing function. Full PT, OT, TANK CAR INSPECTOR assessments and therapies to address mobility, self [...] 0.1 % ointment topical BID Wool Alcoh-Min Csp-Xdpad-Juwmq (EUCERIN) cream topical BID Objective/Physical Exam: VS: [...] bleed 04/18/2019 Priority: Medium ??? Septic shock ([facility]) 03/19/2019 Priority: Medium ??? (H)ARDS (adult respiratory distress syndrome) ([facility]) 03/19/2019 Priority: Medium ??? (H)SIRISHA (acute kidney injury) ([facility]) 03/19/2019 Priority: Medium ??? Anemia 03/19/2019 Priority: Medium ??? Thrombocytopenia ([facility]) 03/19/2019 Priority: Medium ??? Bacteremia 03/19/2019 Priority: Medium ??? Fever 03/19/2019 Priority: Medium ??? Encephalopathy 03/19/2019 Priority: Medium ??? (H)Atrial fibrillation with RVR ([facility]) 03/17/2019 Priority: Medium ??? (H)Acute respiratory failure with hypoxia ([facility]) 03/17/2019 Priority: Medium Plan: 1. Debility following prolonged hospitalization, multiple medical comorbidities, including hypoxic respiratory failure: Residual impaired mobility, self-cares, swallowing function. Full PT, OT, TANK CAR INSPECTOR assessments and therapies to address mobility, self [...] daily Eladio Otero MD 04/28/2019 14:03 * Elizabeth Licea, PT - 04/28/2019 0829 EDT [facility] Rehabilitation Therapy Inpatient [facility] Physical Therapy Encounter Note Date of [...] deviations around the mean (feet) 20-40 Male [phone] Female [phone] 41-60 Male [phone] Female [phone] (Gila, 2007) Age Gender 95% CI (meters) 95% CI (feet) 60-69 Male [phone] Female [phone] 70-79 Male [phone] Female [phone] 80-89 Male [phone] Female [phone] Patient/Family Education: Topic: Breathing technique in through [...] appropriate HEP Primary Therapist: Contact information: Pager: [phone] Elizabeth Licea PT 04/28/2019 16:19 * Sheela Anthony OT - 04/28/2019 0705 EDT [facility] Rehabilitation Therapy Inpatient Rehabilitation [facility] Occupational Therapy Encounter Note Date of [...] with focus on slow consistent pace Pager: [phone] Sheela Anthony OT, 04/28/2019, 7:05 * Shanon [...] inhalation DAILY triamcinolone topical BID Wool Alcoh-Min Xmg-Udnry-Nuyxt topical BID acetaminophen 650 mg Q4H PRN [...] weakness and debility from prolonged critical illness TANK CAR INSPECTOR re-eval yesterday - cont modified diet D3 [...] 0.1 % ointment topical BID Wool Alcoh-Min Ujc-Mtagf-Axubv (EUCERIN) cream topical BID Objective/Physical Exam: VS: [...] bleed 04/18/2019 Priority: Medium ??? Septic shock ([facility]) 03/19/2019 Priority: Medium ??? (H)ARDS (adult respiratory distress syndrome) ([facility]) 03/19/2019 Priority: Medium ??? (H)SIRISHA (acute kidney injury) ([facility]) 03/19/2019 Priority: Medium ??? Anemia 03/19/2019 Priority: Medium ??? Thrombocytopenia ([facility]) 03/19/2019 Priority: Medium ??? Bacteremia 03/19/2019 Priority: Medium ??? Fever 03/19/2019 Priority: Medium ??? Encephalopathy 03/19/2019 Priority: Medium ??? (H)Atrial fibrillation with RVR ([facility]) 03/17/2019 Priority: Medium ??? (H)Acute respiratory failure with hypoxia ([facility]) 03/17/2019 Priority: Medium Plan: 1. Debility following prolonged hospitalization, multiple medical comorbidities, including hypoxic respiratory failure: Residual impaired mobility, self-cares, swallowing function. Full PT, OT, TANK CAR INSPECTOR assessments and therapies to address mobility, self [...] Licea, PT - 04/27/2019 0849 EDT [facility] Rehabilitation Therapy Inpatient [facility] Physical Therapy Encounter Note Date of [...] He is able to walk longer distances crsytal single bout, and does well managing SOB, [...] 04/27/2019 0659 EDT Rehabilitation Therapies Inpatient Rehabilitation [facility] Occupational Therapy Encounter Note Date of Service: 04/27/2019 Subjective/Objective SUBJECTIVE: I really noticed how weak my arms are during my shower. re: pt's response when asked how he thought the shower went. OBJECTIVE: First Session Start time: 829 Scheduled time: 0891-1572 Total Therapy Minutes: 60 minute(s) Interventions included: [...] Second Session Start time: 1130 Scheduled time: 2830-5268 Total Therapy Minutes: 30 minute(s) Interventions included: [...] have pt stand at sink ?? Test social problems specialist strength Pager: [phone] ENEDINA ANNA, 04/27/2019, 7:07 * Eladoi Otero MD - 04/26/2019 8468 EDT Physiatry Progress Note Admit Date: 04/23/2019 [...] capsule 18 mcg inhalation DAILY Wool Alcoh-Min Iac-Oerfw-Jktjp (EUCERIN) cream topical BID Objective/Physical Exam: VS: [...] bleed 04/18/2019 Priority: Medium ??? Septic shock ([facility]) 03/19/2019 Priority: Medium ??? (H)ARDS (adult respiratory distress syndrome) ([facility]) 03/19/2019 Priority: Medium ??? (H)SIRISHA (acute kidney injury) ([facility]) 03/19/2019 Priority: Medium ??? Anemia 03/19/2019 Priority: Medium ??? Thrombocytopenia ([facility]) 03/19/2019 Priority: Medium ??? Bacteremia 03/19/2019 Priority: Medium ??? Fever 03/19/2019 Priority: Medium ??? Encephalopathy 03/19/2019 Priority: Medium ??? (H)Atrial fibrillation with RVR ([facility]) 03/17/2019 Priority: Medium ??? (H)Acute respiratory failure with hypoxia ([facility]) 03/17/2019 Priority: Medium Plan: 1. Debility following prolonged hospitalization, multiple medical comorbidities, including hypoxic respiratory failure: Residual impaired mobility, self-cares, swallowing function. Full PT, OT, TANK CAR INSPECTOR assessments and therapies to address mobility, self [...] tiotropium 18 mcg inhalation DAILY Wool Alcoh-Min Eqb-Izqxf-Bgsso topical BID acetaminophen 650 mg Q4H PRN [...] weakness and debility from prolonged critical illness TANK CAR INSPECTOR re-eval yesterday - cont modified diet D3 [...] MD * Elizabeth Licea, PT - 04/26/2019 0847 EDT [facility] Rehabilitation Therapy Inpatient [facility] Physical Therapy Encounter Note Date of [...] Reaching forward with outstretched arm 1 9. system support technician object from floor 0 10.Turn look behind [...] appropriate HEP Primary Therapist: Contact information: Pager: [phone] Elizabeth Licea, PT 04/26/2019 15:20 * PkJody, [facility]-TANK CAR INSPECTOR - 04/26/2019 0832 EDT Speech-Language Pathology Clinical Swallow Follow-Up TANK CAR INSPECTOR Diagnosis: Dysphagia, pharyngeal phase: Medical Diagnosis: MSSA [...] in some 10 years. ??He presented to [facility] on 03/17/2019 with approximately 2.5 weeks of fever, loss of appetite, weakness, fatigue and diarrhea. ??Work-up at [facility] revealed pneumonia/ARDS and renal failure, as well as atrial fibrillation with RVR. ??He was transferred to [facility] on 03/17/2019 for acute hypoxic respiratory failure [...] Date ??? ARDS (adult respiratory distress syndrome) ([facility]) Current Diet: Dysphagia Diet Level: 3 [...] mg 324 mg oral DAILY (BREAKFAST) Eladio Oteor MD 324 mg at 04/26/19741 ??? guaiFENesin [...] mcg at 04/26/19 0745 ??? Wool Alcoh-Min Ilm-Ydwps-Bmltj (EUCERIN) cream topical BID Shanon Reyes MD [...] able to self administer all items without TANK CAR INSPECTOR assistance using a spoon, cup and straw. [...] texture advancementto Dysphagia 4. Functional Communication Measures ([employer], 2002). The Functional Communication Measures (FCM???s) are a series of 7 point rating scales, ranging fromleast functional (Level 1) to most functional (Level 7). They have been developed by SUE to describe different aspects of patient???s functional communication and swallowing abilities over the course of TANK CAR INSPECTOR intervention. ?? Swallowing Level 5: Swallowing is safe with minimal diet restriction and/or occasionally requires minimal cueing to use compensatory strategies. The individual may occasionally self-cue. All nutrition and hydration needs are met by mouth at mealtime. GOALS: Prison Goal: Swallowing Level 7: Individual's ability to [...] Patient will continue to benefit for further TANK CAR INSPECTOR intervention in this setting to address dysphagia [...] applesauce with a liquid wash, or whole thc-bg-q-time with a liquid wash - decided per patient preference ?? FEEDING/EATING STRATEGIES: Patient may eat independently. When eating, patient should be upright at 90 degrees as tolerated. Patient should take small, single sips of thin liquid. Patient should implement breath hold strategy when drinking. Patient may use a straw when drinking liquids. Patient should alternate liquids and solids during meal time. Jody Whittington CCC-TANK CAR INSPECTOR 04/26/2019 9:43 * Mar Tello, OTR - 04/26/2019 0701 EDT Rehabilitation Therapies Inpatient Rehabilitation [facility] Occupational Therapy Encounter Note Date of Service: 04/26/2019 Subjective/Objective SUBJECTIVE: I think I need to sit and catch my breath. re: pt's response when asked how he felt after toileting tasks. OBJECTIVE: First Session Start time: 0800 Scheduled time: 8563-5556 Total Therapy Minutes: 60 minute(s) Interventions included: [...] (seconds) 33 Age/gender based healthy normative values ([place]ahul, 2003) Male Range (seconds): mean ?? 2 [...] 04/26/2019, 14:44 * Obi Rhoades - 04/25/2019 0273 EDT Spiritual Care Note Re: Shirlene Bryan : 1955, AGE: 64 y.o. Room: [place] [address] Shirlene Bryan who is listed as Baptism has received a visit from the Spiritual Care Department on 04/25/2019. Need/Assessment: ?? Patient was unavailable at the time. Household Appliances Service Technician will visit at a later time. Chaplain Quinn Mosqueda 131 Phone [phone] Spiritual Care is available 24 hours a day. Chaplains are available 24 hours a day. For routine consults please call and leave a message with the Spiritual Care Office ([phone]) and patients will be seen within 24 hours. For all emergent consults page the Jew or Interfaith on-call Household Appliances Service Technician through PAS ([phone]). * Eladio Otero MD - 04/25/2019 1436 [...] capsule 18 mcg inhalation DAILY Wool Alcoh-Min Rxy-Veljm-Chkpw (EUCERIN) cream topical BID Objective/Physical Exam: VS: [...] bleed 04/18/2019 Priority: Medium ??? Septic shock ([facility]) 03/19/2019 Priority: Medium ??? (H)ARDS (adult respiratory distress syndrome) ([facility]) 03/19/2019 Priority: Medium ??? (H)SIRISHA (acute kidney injury) ([facility]) 03/19/2019 Priority: Medium ??? Anemia 03/19/2019 Priority: Medium ??? Thrombocytopenia ([facility]) 03/19/2019 Priority: Medium ??? Bacteremia 03/19/2019 Priority: Medium ??? Fever 03/19/2019 Priority: Medium ??? Encephalopathy 03/19/2019 Priority: Medium ??? (H)Atrial fibrillation with RVR ([facility]) 03/17/2019 Priority: Medium ??? (H)Acute respiratory failure with hypoxia ([facility]) 03/17/2019 Priority: Medium Plan: 1. Debility following prolonged hospitalization, multiple medical comorbidities, including hypoxic respiratory failure: Residual impaired mobility, self-cares, swallowing function. Full PT, OT, TANK CAR INSPECTOR assessments and therapies to address mobility, self [...] tiotropium 18 mcg inhalation DAILY Wool Alcoh-Min Anf-Zlabn-Zyoih topical BID acetaminophen 650 mg Q4H PRN [...] weakness and debility from prolonged critical illness TANK CAR INSPECTOR re-eval yesterday - cont modified diet D3 [...] Licea, PT - 04/25/2019 0834 EDT [facility] Rehabilitation Therapy Inpatient Rehabilitation [facility] Physical Therapy Encounter Note Date of [...] BBS HEP Primary Therapist: Contact information: Pager: [phone] Elizabeth Licea PT 04/25/2019 16:29 * Siomara Fung OT - 04/25/2019 0714 EDT Rehabilitation Therapies Inpatient Rehabilitation [facility] Occupational Therapy Encounter Note Date of Service: 04/25/2019 Subjective/Objective SUBJECTIVE: I'm feeling winded at the moment. re: pt's response when asked how he felt after standing at sink. OBJECTIVE: First Session Start time: 1000 Scheduled time: 5240-4328 Total Therapy Minutes: 60 minute(s) Interventions included: [...] Second Session Start time: 1400 Scheduled time: 3566-1825 Total Therapy Minutes: 30 minute(s) Interventions included: [...] capsule 18 mcg inhalation DAILY Wool Alcoh-Min Hxn-Hoyub-Yxwtp (EUCERIN) cream topical BID Objective/Physical Exam: VS: [...] bleed 04/18/2019 Priority: Medium ??? Septic shock ([facility]) 03/19/2019 Priority: Medium ??? (H)ARDS (adult respiratory distress syndrome) ([facility]) 03/19/2019 Priority: Medium ??? (H)SIRISHA (acute kidney injury) ([facility]) 03/19/2019 Priority: Medium ??? Anemia 03/19/2019 Priority: Medium ??? Thrombocytopenia ([facility]) 03/19/2019 Priority: Medium ??? Bacteremia 03/19/2019 Priority: Medium ??? Fever 03/19/2019 Priority: Medium ??? Encephalopathy 03/19/2019 Priority: Medium ??? (H)Atrial fibrillation with RVR ([facility]) 03/17/2019 Priority: Medium ??? (H)Acute respiratory failure with hypoxia ([facility]) 03/17/2019 Priority: Medium Plan: 1. Debility following prolonged hospitalization, multiple medical comorbidities, including hypoxic respiratory failure: Residual impaired mobility, self-cares, swallowing function. Full PT, OT, TANK CAR INSPECTOR assessments and therapies to address mobility, self [...] senna 2 Tab oral QHS Wool Alcoh-Min Zjm-Qxdam-Tzvvh topical BID acetaminophen 650 mg Q4H PRN [...] weakness and debility from prolonged critical illness TANK CAR INSPECTOR to re-eval On modified diet D3 right [...] 40 Shanon Reyes MD * Jody Whittington, [facility]-TANK CAR INSPECTOR - 04/24/2019 0954 EDT Speech-Language Pathology Clinical Swallow Evaluation TANK CAR INSPECTOR Diagnosis: Dysphagia, pharyngeal phase: Medical Diagnosis: MSSA [...] in some 10 years. ??He presented to [facility] on 03/17/2019 with approximately 2.5 weeks of fever, loss of appetite, weakness, fatigue and diarrhea. ??Work-up at [facility] revealed pneumonia/ARDS and renal failure, as well as atrial fibrillation with RVR. ??He was transferred to the [facility] on 03/17/2019 for acute hypoxic respiratory failure [...] Date ??? ARDS (adult respiratory distress syndrome) ([facility]) Current Diet: Dysphagia Diet Level: 3 [...] (SENOKOT) tablet 2 Tab 2 Tab oral [facility] Eladio Otero MD ??? [START ON 04/25/2019] tiotropium (SPIRIVA) 18 mcg inhalation capsule 18 mcg 18 mcg inhalation DAILY Shanon Reyes MD ??? Wool Alcoh-Min Cnl-Nbqvk-Uaxem (EUCERIN) cream topical BID Shanon Reyes MD [...] able to self administer all items without TANK CAR INSPECTOR assistance using a spoon, cup and straw. [...] will continue to improve. Functional Communication Measures ([employer]- [employer], 2002). The Functional Communication Measures (FCM???s) are a series of 7 point rating scales, ranging fromleast functional (Level 1) to most functional (Level 7). They have been developed by SUE to describe different aspects of patient???s functional communication and swallowing abilities over the course of TANK CAR INSPECTOR intervention. ?? Swallowing Level 4: Swallowing is safe, but usually requires moderate cues to use compensatory strategies, and/or the individual has moderate diet restrictions and/or still requires tube feeding and/or oral supplements. GOALS: Estate Administrator Goal: Swallowing Level 7: Individual's ability to [...] Patient will continue to benefit for further TANK CAR INSPECTOR intervention in this setting to address dysphagia [...] applesauce with a liquid wash, or whole vaq-mw-k-time with a liquid wash (per patient preference). [...] a slower pace. Stop eating and alert TANK CAR INSPECTOR if patient demonstrates poor tolerance. Jody Whittington CCC-TANK CAR INSPECTOR 04/24/2019 14:00 * Valerie Correa - 04/24/2019 0920 EDT Rehab. Case Management Assessment & Initial Discharge Plan Met with patient at bedside to review role of lead case manager and planning for transition home during the Rehabilitation phase. Working Diagnosis/Presenting Problem: Patient is 64-year-old male who presented at [facility] on 03/17/2019 with pneumonia and ARDS, renal failure and atrial fibrillation with RVR and subsequently transferred to [facility] on 03/17/2019 for acute hypoxic respiratory failure [...] registration department and he lives at [address] in [place], [place] [address] Lawanda Lyles lives across the street form patient at [address] in [place], [place] Identified barriers: None at this time. Action to resolve barriers: None at this time Functional Status (psychosocial and physical): Level of functioning BIOCHEMISTRY SPECIALIST: Patient was independent and worked for [employer] Current level of functioning: Therapy Team assessments are underway and patient is able to communicate his needs. Communication needs: Patient is able to communicate his needs. Family functioning: S/O Lawanda is the primary support for patient and there is one brother, Jean who lives in the [place] Substance Abuse, (F/U if indicated): No Smoking status, (F/U if indicated):Patient is currently using a nicotine patch and does not want toresume smoking. Behavioral Health Needs: Patient states that he does have some anxiety. Social Supports: First contact: (name and #) Britt Rafal at [phone]. If 24/7 indicated, who would provide; what level of assist can they provide:Significant other able to provide some support but unable to provide 24/7 as she has recently had surgery and unable to do any lifting. Identified caregiver: Britt Rafal Verified: Yes, however, Britt is unable to do any lifting and Britt will be away for three weeks in [place] beginning June 19. Community Resources: PCP: Patient had not seen a PCP for 10 years. (last time seen) Patient will need to identify a PCP as he does not currently have one and CM will work to identify a PCP for patient hopefully in [place] [facility]/location: [facility] in [place], [place]. Consent for d/c meds to be filled at [facility] Pharmacy? Yes Patient chose [facility] for DME Pt. chose [facility] if home health services indicated Pt. chose if outpatient services indicated. None- Not chosen at this time. MOW: None Medic Alert System: None CFC/TBI Waiver? No Advanced Directives/DPOA: Significant other is Lawanda Lyles and she is the DPOA. Yes or No: Yes Action taken if no: N/A Cultural/Language/Spiritual Needs: Patient is a Baptism. Insurance/Financial Needs: Current insurance coverage: Medicare effective February 2019 and Patient Financial Services will arrange a time to meet with patient to provide support for supplemental benefits. An online application was completed for SSDI by Gabby Eldridge CM Resource Associate. If no insurance, action taken: Patient insurance is limited and Patient Labor/Excavator, Davida Ly, met with patient on 04/24/19. Prescription coverage? No and patient requesting assistance to complete Medicare Part D. This CM contacted Chiki Alexandre at [phone] and spoke with Shiloh with [employer]. ScaleMP Baldomero will have a person contact patient [...] S/O and Home Health follow up with [facility] and follow up with a new PCP. Patient is not planning to return to work. Case Management will continue to provide care coordination for discharge planning and for transition home. VALERIE CORREA RN Case Manager (Orienting with Ange Jovel RN Case Manager) * Elizabeth Licea, PT - 04/24/2019 0852 EDT [facility] Rehabilitation Therapy Inpatient [facility] Physical Therapy Initial Evaluation Note Date [...] Afib with RVR. The patient lives at [address] [place] [address] History of present illness: Per Dr. Otero's H&P dated 04/23/19: Patient is a??64-year-old male with no prior medical history although he had not seen a physician in some 10 years. ??He presented to [facility] on 03/17/2019 with approximately 2.5 weeks of fever, loss of appetite, weakness,fatigue and diarrhea. ??Work-up at [facility] revealed pneumonia/ARDS and renal failure, as well as atrial fibrillation with RVR. ??[facility] with [...] to admission: None Work/Leisure: Working full-time in [employer]. Reports he will not be working anymore, [...] capsule 18 mcg inhalation DAILY Wool Alcoh-Min Xkt-Hhuzi-Vtems (EUCERIN) cream topical BID Arousal, Attention, and [...] extension - - Wrist flexion - - Fire Loss Prevention Engineer strength Moderate Moderate Cervical Spine: NE Lower [...] Physical Assistance Level: Less than 25% Transfers: Chair/Hps-ou-Uavuz Transfer - The ability to safely transfer [...] be provided by physical therapist and/or therapist assistant professor of surgery as appropriate. Frequency: 2-3 times/day for at [...] recommendations: Med psych consult Contact information: Pager: [phone] Elizabeth Licea, PT 04/24/2019 16:02 * Sheela Anthony, OT - 04/24/2019 0713 EDT Rehabilitation Therapies Inpatient Rehabilitation [facility] Occupational Therapy Initial Evaluation Note Date [...] after respiratory falure. The patient lives at [address] [place] [address] History of Present Illness/Injury: Per Dr. Dr. Otero H&P dated 04/23/19: Patient is a??64-year-old male with no prior medical history although he had not seen a physician in some 10 years. ??He presented to [facility] on 03/17/2019 with approximately 2.5 weeks of fever, loss of appetite, weakness, fatigue and diarrhea. ??Work-up at [facility] revealed pneumonia/ARDS and renal failure, as well as atrial fibrillation with RVR. ??He was transferred to the [facility] on 03/17/2019 for acute hypoxic respiratory failure [...] ?? Flat affect Cognitive FIM Comprehension: Complete [place] Expression: Complete [place] Social Interaction: Complete [place] Problem Solving: Complete [place] Memory: Complete [place] Skills requiring prompting include Sensory Functions Touch: [...] routine and maintain O2 sats above 89% Estate Administrator Goals: 3 weeks ?? Pt will complete [...] Data: FIM: see above, complete IRF-BEL, complete social problems specialist strength, continue to monitor vitals Patient/Family Education: Fall prevention, energy conservation, adaptive equipment for ADL and IADL. Discharge Plan: Pt will discharge to significant other's home due to set-up of bathroom and bedroomuntil he is ready to return home. Pager: [phone] ENEDINA SHOSHANA, 04/24/2019, 13:34 Sheela Anthony OTR/L Pager [phone] documented in this encounter H&P Notes * [...] in some 10 years. He presented to [facility] on 03/17/2019 with approximately 2.5 weeks of fever, loss of appetite, weakness, fatigue and diarrhea. Work-up at [facility] revealed pneumonia/ARDS and renal failure, as well as atrial fibrillation with RVR. He was transferred to the [facility] on 03/17/2019 for acute hypoxic respiratory failure [...] developed hypoxia again, and was transferred back [facility] medical intensive care unit. ?? He again [...] Date ??? ARDS (adult respiratory distress syndrome) ([facility]) Past Surgical History: Procedure Laterality Date ??? [...] two-story home. 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 He has a girlfriend who lives across [...] bleed 04/18/2019 Priority: Medium ??? Septic shock ([facility]) 03/19/2019 Priority: Medium ??? (H)ARDS (adult respiratory distress syndrome) ([facility]) 03/19/2019 Priority: Medium ??? (H)SIRISHA (acute kidney injury) ([facility]) 03/19/2019 Priority: Medium ??? Anemia 03/19/2019 Priority: Medium ??? Thrombocytopenia ([facility]) 03/19/2019 Priority: Medium ??? Bacteremia 03/19/2019 Priority: Medium ??? Fever 03/19/2019 Priority: Medium ??? Encephalopathy 03/19/2019 Priority: Medium ??? (H)Atrial fibrillation with RVR ([facility]) 03/17/2019 Priority: Medium ??? (H)Acute respiratory failure with hypoxia ([facility]) 03/17/2019 Priority: Medium This patient's current [...] and acute level therapies including PT, OT, TANK CAR INSPECTOR for 3 hours per day, 5 days [...] mobility, self-cares, swallowing function. Full PT, OT, TANK CAR INSPECTOR assessments and therapies to address mobility, self [...] reported Current Management of Withdrawal symptoms: Cold [place] Plan: TTS will send tobacco cessation guide [...] in some 10 years. ??He presented to [facility] on 03/17/2019 with approximately 2.5 weeks of fever, loss of appetite, weakness, fatigue and diarrhea. ??Work-up at [facility] revealed pneumonia/ARDS and renal failure, as well as atrial fibrillation with RVR. ??He wastransferred to the [facility] on 03/17/2019 for acute hypoxic respiratory failure [...] the main campus prior to transfer to [facility] yesterday. Though he was ordered to [...] (119 lb) -- 04/23/19 UBW: admitted to [facility] 03/17/19 70.35kg Weight Change: -16.35 kg in [...] lost 23% body weight since admission to [facility] 03/17/19, likely d/t loss of lean body [...] Recommendations: Oral Nutrition: - Diet advancement per TANK CAR INSPECTOR - RD to order Boost Plus/ice cream TID (likes them as milkshakes) - RD to order vanilla pudding and mandarin oranges as scheduled PM snack Vitamins and Minerals: - Continue daily MVM and vitamin D supplementation Coordination of Care: - Please weight patient at least 2x/week ?? Dorinda Carey, RD, CD [facility] Dietitian Phone: [phone] * Viktoria Farr RN - 04/24/2019 0770 EDT Images from the original note were [...] to hospital: [facility]17/[facility] HPI: Patient was admitted with acute hypoxic respiratory failure from methicillin sensitive staph aureus pneumonia. He is already sort of a frail 64 yo man who had no PCP prior and smoked, who presented to [facility] on 03/15 with 2 weeks of fever, anorexia, diarrhea and sepsis. He was found to be in atrial fibrillation with rapid ventricular response, began treatment for community acquired pneumonia and transferred to [facility] for further critical care evaluation and management. [...] Date ??? ARDS (adult respiratory distress syndrome) ([facility]) MEDS: List reviewed. Current Facility-Administered Medications: [...] tablet 2 Tab oral QHS Wool Alcoh-Min Kth-Gkzxn-Myfsa (EUCERIN) cream topical PRN ALL: No Known Allergies SOCIAL: Social History Tobacco Use ??? Smoking status: Current Every Day Smoker Packs/day: 1.50 Types: Cigarettes ??? Smokeless tobacco: Never Used ??? Tobacco comment: Quit 2 weeks ago Substance Use Topics ??? 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 Severe protein calorie malnutrition Nutrition consultation TANK CAR INSPECTOR following for dysphagia Aspiration precautions 5. Upper [...] Care - Renee Marcum RN - 05/12/2019 4113 EST Pt's here, demonstrated trach and coccyx [...] unsafe behavior- independent in room with walker. manager ecommerce working on medications-they will be picked up today from [facility] pharmacy and locked in med room -ready [...] Transfers: Bed < > Chair: stand-step independently TANK CAR INSPECTOR: Medical Complications: None identified at this time Level of Risk & Environmental Privilege: A Pre-Hospital Living Setting and Support System:??Lives alone in [place], [place] in multi-level house, [address] without [...] name and professional designation of each interdisciplinary associate team physician physically in attendance for this team conference. Rehabilitation Physician: Martha Reddy MD I lead this weekly interdisciplinary team meeting and was responsible for making the final decisions regarding the patient???s treatment in the IRF. I concur with all decisions made by the interdisciplinary team. Countersinker: Ange Jovel RN Case Manager: Judi Shin, JORGE Nurse: Dimple Winters RN OT: Janel Langston OT PT: Elizabeth Licea PT TANK CAR INSPECTOR: * Plan of Care - Paulina Alvarez [...] with supervison, cues and assistance of 1 TANK CAR INSPECTOR: Patient currently presents with oropharyngeal swallow function [...] diet. Do not anticipate further need for TANK CAR INSPECTOR services at this time. Patient to be discharged from TANK CAR INSPECTOR services. ? Medical Complications: Continued rash management Level of Risk & Environmental Privilege: A Pre-Hospital Living Setting and Support System: Lives alone in [place], [place] in multi-level house, [facility] but will initially stay with [...] rate of progress in past few days. TANK CAR INSPECTOR indicates discontinuing services. Patient is making progress [...] name and professional designation of each interdisciplinary associate team physician physically in attendance for this team conference. Rehabilitation Physician: Eladio Otero MD I lead this weekly interdisciplinary team meeting and was responsible for making the final decisions regarding the patient???s treatment in the IRF. I concur with all decisions made by the interdisciplinary team. Countersinker: Ange Jovel, proof machine operator supervisor: Judi Shin RN Nurse: Dimple Winters RN OT: Mar Tello OT PT: Elizabeth Licea PT TANK CAR INSPECTOR: Jody Whittington, [facility]-TANK CAR INSPECTOR * Plan of Care - Zuleyma Ball [...] lungs clear but diminished to auscultation bilaterally. Jennifer Marrero RN 04/29/2019 20:53 * Plan of [...] 3. Denied pain. Using urinal independently using [id number] shift of 04/26-04/27/2019. * Plan of Care - Domenica Mcghee RN - 04/26/2019 2243 EDT Pt has reported a soothing effect after application and monitoring of ointment. * Plan of Care - Judi Quiñonez RN - 04/26/2019 1418 EDT Problem: Daily Care Plan Goals Goal: Care Plan Documentation Outcome: Met This Shift Flowsheets (Taken 04/26/2019 0933) Area of Focus: Discharge Plan Goal This [...] Conference - Eladio Otero MD - 04/26/2019 0998 EDT NInpatient Acute Rehabilitation Unit - Interdisciplinary [...] min contact assist of 1 with RW TANK CAR INSPECTOR: Patient currently presents with a mild-moderate pharyngeal [...] Setting and Support System: Lives alone in [place], [place] in multi-level house, [facility] but will initially stay with [...] levels., Continue therapies by OT, PT and TANK CAR INSPECTOR and For a total of 3 hours per day, 5 days per week Additional interdisciplinary team information: Patient/Caregiver Communication: Nurse will inform patient/family of discharge plan and estimated length of stay Full name and professional designation of each interdisciplinary associate team physician physically in attendance for this team conference. Rehabilitation Physician: Eladio Otero MD I lead this weekly interdisciplinary team meeting and was responsible for making the final decisions regarding the patient???s treatment in the IRF. I concur with all decisions made by the interdisciplinary team. Countersinker: Ange Jovel RN Case Manager: Judi Shin RN Nurse: Judi Lind RN OT: Mar Tello OT PT: Elizabeth Licea PT TANK CAR INSPECTOR: Jody Whittington [facility]-TANK CAR INSPECTOR * Plan of Care - Ivonne Cole [...] - 04/23/2019 1425 EDT Pt admitted into [facility] from the main [place] via ambulance; no c/o pain; pt was [...] 16(L) 20 - 40 mg/dL 05/10/2019 13:05 [facility] Blood specimen (specimen) BLOOD SPECIMEN / Unknown 05/10/2019 5:36 EST 05/10/2019 7:12 EST Martha Reddy MD CHEMISTRY & BLOOD GAS ORDERA BLES Final Result Performing Organization Address [facility] de Phone Number [facility] [address] [place] [address] * (ABNORMAL) CREATININE (05/10/2019 5:36 EST) Creatinine 0.65(L) 0.66 - 1.25 mg/dl 05/10/2019 7:46 [facility] GFR, Calculated 102 >60 ml/min/1.7 3m2 05/10/2019 7:46 [facility] Comment: eGFR calculated using CKD-EPI equation for non Americans. Multiply eGFR by 1.16 for Americans. Performed at [facility] [place], [place] Blood specimen (specimen) BLOOD SPECIMEN / Unknown 05/10/2019 5:36 EST 05/10/2019 7:12 EST Martha Reddy MD CHEMISTRY & BLOOD GAS ORDERA BLES Final Result Performing Organization Address [facility] de Phone Number [facility] [address] [place] [address] * (ABNORMAL) ELECTROLYTES (05/10/2019 5:36 EST) Sodium 139 136 - 145 mEq/L 05/10/2019 7:46 [facility] Potassium 4.4 3.5 - 5.0 mEq/L 05/10/2019 7:46 [facility] Chloride 109 96 - 110 mEq/L 05/10/2019 7:46 [facility] CO2 20(L) 22 - 32 mEq/L 05/10/2019 7:46 [facility] Comment:Performed at [facility] [place], [place] Blood specimen (specimen) BLOOD SPECIMEN / Unknown 05/10/2019 5:36 EST 05/10/2019 7:12 EST Martha Reddy MD CHEMISTRY & BLOOD GAS ORDERA BLES Final Result [facility] [address] [place] [address] * (ABNORMAL) COMPLETE BLOOD COUNT (05/10/2019 5:36 EST) WBC 5.34 4.0 - 10.4 K/cmm 05/10/2019 7:28 [facility] RBC 3.73(L) 4.36 - 5.78 M/cmm 05/10/2019 7:28 [facility] Hemoglobin 10.7(L) 13.8 - 17.3 gm/dl 05/10/2019 7:28 [facility] HCT 33.3(L) 39.5 - 50.2 % 05/10/2019 7:28 [facility] MCV 89 81 - 95 fl 05/10/2019 7:28 [facility] MCH 28.7 27.6 - 33.0 pg 05/10/2019 7:28 [facility] MCHC 32.1(L) 32.8 - 36.4 gm/dl 05/10/2019 7:28 [facility] RDW-CV 18.8(H) <14.2 % 05/10/2019 7:28 [facility] RDW-SD 60.0(H) <46.0 fl 05/10/2019 7:28 [facility] Anisocytosis 1+ 05/10/2019 7:28 [facility] PLT 217 141 - 377 K/cmm 05/10/2019 7:28 [facility] MPV 10.6 9.5 - 12.7 fl 05/10/2019 7:28 [facility] Comment:Performed at [facility] [place], [place] Blood specimen (specimen) BLOOD SPECIMEN / Unknown 05/10/2019 5:36 EST 05/10/2019 7:12 EST us Martha Reddy MD HEMATOLOGY & PF4 ORDERABLES Final Result [facility] [address] [place] [address] documented in this encounter Visit Diagnoses Diagnosis [...] EST Given 05/11/2019 8:09 EST Wool Alcoh-Min Sef-Ruwrs-Estir (EUCERIN) cream topical, PRN, Starting on Tue04/23/19 at 1347, Until Tue04/24/19 at 1030, Dry Skin Given 04/24/2019 8:18 EDT Wool Alcoh-Min Xix-Iokzg-Xaocq (EUCERIN) cream topical, 2 TIMES DAILY, First [...] - Provider: Dimple Winters RN) Wool Alcoh-Min Scp-Wbsjr-Spqfs (EUCERIN) cream topical, 2 TIMES DAILY, First dose (after last modification) on Tue04/24/19 at 1100, Until Discontinued 08 (Given - Provider: Dimple Winters, JORGE)2050 (Given - Provider: Domenica Mcghee, [...] Ordered Date First Orde red Date NOTIFY TRAINING PERSONNEL SUPERVISOR 1 04/23/2019 PATIENT AT LOW RISK FOR VTE: RISK OF MECHANICAL PROPHYLAXIS OUTWEIGHS 1 04/23/2019 VTE PHARMACOLOGIC PROPHYLAXI S CURRENTLY ORDERED OR ON ALTERNATIVE THER 1 04/23/2019 Consult Count Last Ordered Date First Orde red Date CONSULT SMOKING CESSATION 1 04/25/2019 TANK CAR INSPECTOR Count Last Ordered Date First Orde red Date TANK CAR INSPECTOR CLINICAL SWALLOW EVALUATION AND TREAT 1 04/23/2019 [...] 04/23/2019 documented in this encounter Care Teams Checkroom Attendant Relationship Specialty Start Date End Date Unknown, Provider, PCP - General 05/25/15 04/23/19 None, Provider PCP - General 04/24/19 05/08/19 Maile Laureano FNP [address] [place] [id number] PCP - General 05/09/19 05/10/19 Maile Laureano FNP [address] [place] [address] PCP - General 05/11/19 documented as of this encounter
--- OUTSIDE RECORDS SUMMARY | 2024-07-12 15:07 | XMS_ITS | Encounter Summary ---
Author Organization [facility] Address [address] [place] [address] Care Team Providers Care Usability Architect Name Role Phone Maile Payan WATCH TECHNICIAN Primary Care Provider [phone] Reason for Visit * Reason Onset Date Comments Surgery Scheduling 08/20/2019 Encounter Details Date Type Department Care Team (Late st Contact Info) Description 08/20/2019 Telephone [facility] Acute Care Surgery - [facility] [address] [place] [address] Melba Braswell, acute care assistant Scheduling Social History Tobacco Use Types Packs/Day [...] Encounter - Melba Braswell RN - 08/20/2019 7783 EST Per face to face conversation with [...] on filedocumented in this encounter Care Teams Usability Architect Relationship Specialty Start Date End Date Maile Payan FNP [address] [place] [phone] PCP - General 05/11/19 documented as of this encounter
--- OUTSIDE RECORDS SUMMARY | 2024-07-12 15:10 | XMS_ITS | Encounter Summary ---
Author Organization [facility] Address [address] [place] [address] Care Team Providers Care Medical Imaging Specialist Name Role Phone Unknown, Provider Primary Care Provider Unava ilable Reason for Referral * (Routine) - Receiving Office to Obtain Authorization Specialty Diagnoses / Procedures Referred By Contac t Referred To Contact Vick Gibson MD Phone: tel: fax: Referral ID Status Reason Start Date Expiration Date Visits Requested Visits Authorized [id number] Receiving Office to Obtain Authorization Specialty Services Required 04/23/20 19 1 1 * (Routine) - Receiving Office to Obtain Authorization Specialty Diagnoses / Procedures Referred By Contac t Referred To Contact Vick Gibson MD Phone: tel: fax: Referral ID Status Reason Start Date Expiration Date Visits Requested Visits Authorized [id number] Receiving Office to Obtain Authorization Specialty Services Required 04/23/20 19 1 1 * (Routine) - Receiving Office to Obtain Authorization Specialty Diagnoses / Procedures Referred By Contac t Referred To Contact Vick Gibson MD Phone: tel: fax: Referral ID Status Reason Start Date Expiration Date Visits Requested Visits Authorized [id number] Receiving Office to Obtain Authorization Specialty Services Required 04/23/20 19 1 1 * (Routine) - Receiving Office to Obtain Authorization Specialty Diagnoses / Procedures Referred By Judy morgan Referred To Contact Vick Gibson MD Phone: tel: fax: Referral ID Status Reason Start Date Expiration Date Visits Requested Visits Authorized [id number] Receiving Office to Obtain Authorization Specialty Services Required 04/23/20 19 1 1 Encounter Details Date Type Department Care Team (Late st Contact Info) Description 03/17/2019 9:03 EDT - 04/23/2019 13:11 EDT Hospital Encounter [facility] General Surgery Unit [address] [place] [address] [phone] Brian Romano DO [address] [phone] Leticia Galdamez MD [address] [phone] Shelly Guzman MD [address] [place] [address] Igor Maza MD [address] [phone] Acute respiratory failure with hypoxia (HCC-CMS) (Primary [...] Primary Care Provider: Doctor Unknown Attending Physician: Shlely Guzman MD Admit Date: 03/17/2019 Discharge Date: 04/23/2019 Disposition: Acute Rehab Reason for Admission: Pneumonia, AF/RVR Principal/Final Diagnosis: Acute respiratory failure with hypoxia ([facility]) due to pneumonia complicated by MSSA bacteremia, ARDS, UGI bleed due to PUD and SIRISHA. Additional Problems Managed in the Hospital Active Hospital Problems Diagnosis Date Noted ??? Atrial fibrillation with RVR ([facility]) 03/17/2019 ??? Acute respiratory failure with hypoxia ([facility]) 03/17/2019 Resolved Hospital Problems No resolved problems [...] see a doctor regularly) who presented to [facility] via [facility] with rapid atrial fibrillation (03/16/19). ?? Mr. Bryan presented to [facility] on 03/15 after having 2 and half weeks of fever, loss of appetite, weakness, fatigue, body aches, diarrhea, and vomiting with decreased food and fluid intake. ?? On initially assessment at [facility] Mr. Bryan was hemodynamically stable. [...] on a diltiazem drip and transferred to [facility] MICU for management of pneumonia complicated by septic shock, ARDS, metabolic acidosis, AF w/ RVR, SIRISHA, and volume overload. In the [facility] MICU, the patient was intubated, sedated, and [...] treated with Protonix and improved. On 03/21/19 [facility] BCx speciated to MSSA. Patient [...] Needing Follow-up: tracheostomy site care, PT, OT, APPOINTMENT SCHEDULER Diffuse rash: On the day of discharge, [...] Completed By: VICK GIBSON MD, PGY-1, Pager [phone] 04/23/2019 12:10 ATTENDING ATTESTATION: Date of service: [...] directed daily. 30 Cap 05/11/2019 Wool Alcoh-Min Fuv-Wdkcb-Mbyei (EUCERIN) cream Apply to dry areas twice [...] Simon OT - 04/23/2019 1311 EDT [facility] Rehabilitation Therapy Acute Therapies [facility] - Occupational Therapy Discontinue/Discharge Note Date of [...] GOALS: Short Term Goals: - ? - Chief Console Operator Goals: 2-3 weeks ? Patient will maintain [...] ?? PLAN: Discontinue occupational therapy at [facility] acute care. Recommended Discharge Destination: Acute rehabilitation Recommended Discharge Services: Occupational therapy at rehabilitation facility Recommended Discharge Equipment: To be determined by next care provider Pager: [phone] SHELLY SIMON OT, 04/24/2019, 7:15 * Davida Randhawa MS CCC-APPOINTMENT SCHEDULER - 04/23/2019 1151 EDT Speech-Language Pathology Swallowing Consults APPOINTMENT SCHEDULER Diagnosis: Aphonia, Loss of Voice: and Dysphagia, oropharyngeal phase: Medical Diagnosis: [id number] J18.9 Pneumonia, unspecified organism-J18.9[ICD-10-CM] Date of Service: [...] past medical history??and current smoker??who presents from [facility] with rapid atrial fibrillation. ?? Per note from [facility], he??presented??on 03/15??after having 2 and half weeks of symptoms that started with fever and loss of appetite. The fever resolved??after 1 week.??He also reported weakness, fatigue, body aches, diarrhea, vomiting??during that period. He had decreased food and fluid intake. The patient??has not been seen by a doctor for about 10 years.? On presentation to [facility] he was hemodynamically stable. Labs??significant [...] will continue to improve. Functional Communication Measures ([place] Speech- Language- Hearing [employer], 2002). The Functional Communication Measures (FCM???s) are a series of 7 point rating scales, ranging fromleast functional (Level 1) to most functional (Level 7). They have been developed by SUE to describe different aspects of patient???s functional communication and swallowing abilities over the course of APPOINTMENT SCHEDULER intervention. Swallowing Level 4: Swallowing is safe, [...] over the course of a snack/meal. - [facility] 04/23 PLAN: Patient will continue to benefit for further APPOINTMENT SCHEDULER intervention in the acute rehab setting to [...] inpatient acute rehabilitation stay. Kell Worley. 04/23/2019 [facility] Engraving Plate Maker Clinician Davida Randhawa MS, [facility]-APPOINTMENT SCHEDULER Speech Language Pathologist Pager #[phone] (Tuesday - Tuesday [phone]) Pager # [phone] ([facility] APPOINTMENT SCHEDULER Department) * Madelyn Knowles, PT - 04/23/2019 1056 EDT [facility] Rehabilitation Therapy Acute Therapies [facility] Physical Therapy Discontinue/Discharge Note Date of [...] other consults recommended at this time Pager: [phone] Madelyn Knowles, PT 04/23/2019 10:56 * Jenelle Davison RN - 04/23/2019 0133 EDT [facility] Inpatient Acute Rehabilitation Unit on the [facility] Eligible: Patient is determined to be Eligible for an Acute Inpatient Rehabilitation level of care based on his/her payer criteria Patient has accepted bed offer at the Acute Inpatient Rehabilitation Unit at [facility], located on the [facility]. Refer to IP Rehab Pre-Admission Assessment Note in Inpatient Rehabilitation Medical record for further details. Rehab Admission Date: 04/23/19 Transportation: [facility] Rehab Admission Time: 1300 Rehab Floor/Number for Report: Rehab 1 ([phone]) * Viktoria Farr RN - 04/23/2019 1024 EDT Images from the original note were not included. 04/23 ?? 03/19: While on unit asked by bedside nurse to assess purple area on coccyx. ?? Pt arrived on Tuesday morning from [facility] with a pink blanchable area on [...] Skin above the ulcer appears more fragile, balance bridge inspector in color, concern that this area is [...] Jenelle Davison RN - 04/23/2019 0939 EDT [facility] Inpatient Acute Rehabilitation Unit Pre-Admission Screening Name: Shirlene Bryan : 1955 Age: 64 y.o. Sex: male Payer: Medicare Rehab Admission Date: 04/23/2019 Rehab Unit: Rehab 1 From: B622/02 Arriving via [facility] Time: 1300 Height: 181.6 cm (71.5) [...] d/c'd 04/20 Special Bed or Equipment Needs: [place] bed Speech and Language Pathology Primary Rehab [...] (HCC-CMS) ??? Acute respiratory failure with hypoxia ([facility]) ??? Septic shock (HCC-CMS) ??? ARDS (adult respiratory distress syndrome) (HCC-CMS) ??? SIRISHA (acute kidney injury) (HCC-CMS) ??? Anemia ??? Thrombocytopenia (HCC-CMS) ??? Bacteremia ??? Fever ??? Encephalopathy ??? Upper gastrointestinal bleed Past Medical History: Past Medical History: Diagnosis Date ??? ARDS (adult respiratory distress syndrome) (HCC-CMS) Pre-Hospital Living Setting and Support System: Lives in [place] independently in a multi-level house. Bathroom [...] will be of practical value to improve Shirlene Bryan's functional capacity or adaptation to impairments. [...] PO QD ?? #Paroxysmal atrial fibrillation:??Patient without BLADDER CHANGER diagnosis, has been paroxysmal throughout thehospitalization.??Converted to [...] C, zinc -??nutrition consulted, appreciate recs - APPOINTMENT SCHEDULER consulted, appreciate recs ?? #Unstageable sacral pressure ulcer -Wound care following?? - Mepilex/dressing changes??per wound care - air mattress with frequent dressing changes Housekeeping: DVT ppx: enoxaparin 40mg daily Diet: tube feeds with dysphagia 3 diet Consults: APPOINTMENT SCHEDULER, OT, PT, Nutrition, Physiatry Discharge Plan: Planned [...] OTR - 04/20/2019 1511 EDT Rehabilitation Therapies [facility] Occupational Therapy Contact Note Date of Service: [...] decided to draw on Social Security Senior Living benefits while application is pending. Heunderstands this will reduce his half-way benefit as he is not yet full half-way age. Patient has been provided with contact information and encouraged to call if he has any questions or needs further assistance. Gabby Eldridge #[phone] * Lucy Sánchez RN - 04/20/2019 1430 EDT Acute Inpatient Rehabilitation Rehab Referral Review [...] PPI daily ?? #Paroxysmal atrial fibrillation:??Patient without BLADDER CHANGER diagnosis, has been paroxysmal throughout thehospitalization.??Converted to sinus rhythm with beta blockade -??Metoprolol 12.5 mg twice daily - no AC at present due to GI hemorrhage and low CHADS score ?? #Severe??protein calorie malnutrition??and Critical Care myopathy. His PO intake is slowly improving. NG tube removed this morning - mighty shakes??with meals - continue multivitamin, vitamin C, zinc -??nutrition consulted, appreciate recs - APPOINTMENT SCHEDULER consulted, appreciate recs ?? #Unstageable sacral pressure ulcer -Wound care following?? - Mepilex/dressing changes??per wound care - air mattress with frequent dressing changes ?? Housekeeping: DVT ppx: enoxaparin 40mg daily Diet: tube feeds with dysphagia 3 diet Consults: APPOINTMENT SCHEDULER, OT, PT, Nutrition, Physiatry Discharge Plan: PT [...] ?? Pt arrived on Tuesday morning from [facility] with a pink blanchable area on [...] Skin above the ulcer appears more fragile, balance bridge inspector in color, concern that this area is [...] Eleonora Machado MS, RD B6 Dietitian Pager: [phone] * Eliel Oswald, PT - 04/20/2019 1027 EDT [facility] Rehabilitation Therapy Acute Therapies [facility] Physical Therapy Encounter Note Date of Service: 04/20/2019 Subjective/Objective Subjective The best way for me to get my breath is laying down Objective Intervention completed today: Time: 9277-7504 Total treatment time: 25 minutes. Timed code [...] recommended at this time Primary Therapist: Pager: [phone] Eliel Oswald, PT 04/20/2019 10:27 * Dorinda [...] considered for discharge to Acute Rehab with general internist following. Jess Adler RN CCM [id number] * Eliel Oswald, PT - 04/19/2019 1121 EDT [facility] Rehabilitation Therapy Acute Therapies [facility] Physical Therapy Encounter Note Date of Service: 04/19/2019 Subjective/Objective Subjective It's not my legs. It's just hard to get air Objective Intervention completed today: Time: 5894-3996 Total treatment time: 35 minutes. Timed code [...] recommended at this time Primary Therapist: Pager: [phone] Eliel Oswald, PT 04/19/2019 11:21 * Paola [...] 04/19/19 * Igor Maza MD - 04/19/2019 0672 EDT Medicine Daily Progress Note Chief Complaint: [...] QD tomorrow ?? #Paroxysmal atrial fibrillation:??Patient without BLADDER CHANGER diagnosis, has been paroxysmal throughout thehospitalization.??Converted to [...] C, zinc -??nutrition consulted, appreciate recs - APPOINTMENT SCHEDULER consulted, appreciate recs ?? #Unstageable sacral pressure ulcer -Wound care following?? - Mepilex/dressing changes??per wound care - air mattress with frequent dressing changes Housekeeping: DVT ppx: enoxaparin 40mg daily Diet: tube feeds with dysphagia 3 diet Consults: APPOINTMENT SCHEDULER, OT, PT, Nutrition, Physiatry Discharge Plan: PT [...] Bryan : 1955, AGE: 64 y.o. Room: [place] [id number] Shirlene Bryan who is listed as Unknown has received a visit from the Spiritual Care Department on04/18/2019. Need/Assessment: ?? Initial visit with Shirlene. Intervention: ?? Explained services. Provided supportive care. Will continue to follow this patient and as neededprovide emotional and spiritual support. Outcome: ?? Plan of Action: No Follow up necessary - Needs met Continued Family Support x Continued Support from Fingernail Sculptor following patient Make a Referral to: Continued [...] Family Support Other [employer], Fingernail Sculptor Leila [address] Phone [phone] Pager [phone] Spiritual Care is available 24 hours a day. Office hours are 0800 to 1700 Tuesday through Tuesday and 0830 to 1630 Tuesday and Tuesday. Interfaith and Christian chaplains are available 24 hours a day. For routine consults please call and leave a message with the Spiritual Care Office ([phone]) and patients will be seen within 24 hours. Forall emergent consults page the [employer]ars[employer] or Interfaith on-call Fingernail Sculptor through [facility] ([phone]). * Lucy Sánchez, JORGE - 04/18/2019 1514 EDT [facility] Inpatient Acute Rehabilitation Unit on the [facility] Admission Coordinator Initial Assessment Reason for Hospitalization: [...] referral review process and answered questions about [facility]'s Acute IP Rehab Center and programs. [...] therapy including physical therapy. Initial Determination for [facility]'s Acute Inpatient Rehabilitation Center: ??? Acute Rehab Determination Deferred - pending therapy tolerance, medical clearance and Physiatryconsult. Plan: ??? Rehab Admission Coordinator will continue to follow daily. Rehab Student Affairs Vice President to consult Thank you. This IRF Eligibility [...] eligibility assessment may change. * Rona Negron [facility]-APPOINTMENT SCHEDULER - 04/18/2019 1432 EDT Speech-Language Pathology Voice Prosthesis & Swallowing Consults APPOINTMENT SCHEDULER Diagnosis: Aphonia, Loss of Voice: Medical Diagnosis: [id number]-N2 J18.9 Pneumonia, unspecified organism-J18.9[ICD-10-CM] Date of Service: [...] and was able to self suction.Cap: yes, cured meats supervisor in place Vocal quality with #7 trach and cap: better, less breathy, with less air escape from trach site today Clinical Swallow Consult Positioning: Sitting upright in chair Oral Peripheral Exam: Face: Symmetric, ng tube in nares Lips: Symmetric Oral Mucosa: [place] and Moist Tongue: WNL Velum: Symmetrical soft [...] will continue to improve. Functional Communication Measures ([place] Speech- Language- Hearing Association, 2002). The Functional Communication Measures (FCM???s) are a series of 7 point rating scales, ranging fromleast functional (Level 1) to most functional (Level 7). They have been developed by SUE to describe different aspects of patient???s functional communication and swallowing abilities over the course of APPOINTMENT SCHEDULER intervention. Voice following Tracheostomy Level 4: The [...] Patient will continue to benefit for further APPOINTMENT SCHEDULER intervention in this setting to address dysphagia [...] nutrition/hydration needs as he undergoes calorie count. APPOINTMENT SCHEDULER to follow Discharge Plan: Pt will require inpatient acute rehabilitation stay. Pager # [phone] (Float APPOINTMENT SCHEDULER Department) * Eliel Oswald, PT - 04/18/2019 2789 EDT [facility] Rehabilitation Therapy Acute Therapies [facility] Physical Therapy Encounter Note Date of Service: 04/18/2019 Subjective/Objective Subjective How about I walk and then end up in the chair Objective Intervention completed today: Time: 1767-2008 Total treatment time: 25 minutes. Timed code [...] recommended at this time Primary Therapist: Pager: [phone] Eliel Oswald, PT 04/18/2019 14:21 * Shelly Simon, OT - 04/18/2019 1354 EDT [facility] Rehabilitation Therapy Acute Therapies [facility] - Occupational Therapy Encounter Note Date of [...] be determined by next care provider Pager: [phone] SHELLY SIMON OT, 04/18/2019, 13:55 * Gabby Eldridge - 04/18/2019 1101 EDT RESOURCE ASSOCIATE ASSISTANCE 04/18/19 Cattle Rancher met with patient & his significant other to introduce self, provide information on benefits & offer assistance with application process. Information was provided on SSDI & SSI. Patient & significant others questions were answered. Plan to meet on Tuesday morning to begin application process. Gabby Eldridge #[phone] * Igor Maza MD - 04/18/2019 0900 [...] flush 10 mL intercatheter WEEKLY Wool Alcoh-Min Duw-Ycqes-Rwvxh (EUCERIN) cream topical PRN zinc sulfate (ZINCATE) [...] to daily ?? #Paroxysmal atrial fibrillation:??Patient without BLADDER CHANGER diagnosis, has been paroxysmal throughout thehospitalization. Converted [...] C, zinc -??nutrition consulted, appreciate recs - APPOINTMENT SCHEDULER consulted, appreciate recs ?? #Unstageable sacral pressure ulcer -Wound care following?? - Mepilex/dressing changes per wound care - air mattress with frequent dressing changes ?? VTE??Prophylaxis Enoxaparin 40mg daily ?? Discharge Plan BETITO anticipated ?? Consults APPOINTMENT SCHEDULER, PT, OT, nutrition ?? Jaswinder Rivaskimmiedana 04/18/2019 [...] pt is willing to be listed in [facility]. Will send documentation/inquiries to facilities when there is a more solid dc date. Jess Adler RN CCM [id number] * Jenelle Davison, JORGE - 04/17/2019 1443 EDT Referral received for Acute Rehab Evaluation. Full assessment to follow. Jenelle Barnett RN/BSN/CRRN [facility] Acute Inpatient Rehab Gauge And Weigh Machine Operator Pager # [phone] * Gabby Eldridge - 04/17/2019 1432 EDT RESOURCE ASSOCIATE ASSISTANCE 04/17/19 Referral received to assist patient with Social Security Disability benefits. Cattle Rancher reached out to patient's significant other to coordinate a time we can all meet as she has questions. She will contact me when she has a chance to look at her calendar. Gabby Eldridge #[phone] * Viktoria Farr RN - 04/17/2019 1100 EDT Images from the original note were not included. 04/17 ?? 03/19: While on unit asked by bedside nurse to assess purple area on coccyx. ?? Pt arrived on Tuesday morning from [facility] with a pink blanchable area on [...] Skin above the ulcer appears more fragile, balance bridge inspector in color, concern that this area is [...] Madelyn Knowles, PT - 04/17/2019 1036 EDT [facility] Rehabilitation Therapy Acute Therapies [facility] Physical Therapy Encounter Note Date of [...] recommended at this time Primary Therapist: Pager: [phone] Madelyn Knowles, PT 04/17/2019 10:36 * Manfred Carrillo, RT - 04/17/2019 0907 EDT Respiratory Consult/Progress Note Indications for Respiratory therapy: trach Data Vitals: Heart Rate: 81 BPM, Resp: 18, SpO2: 96 % FIO2/O2 Device: O2 Flow Rate (L/min): 4 l/min(found on 4 lpm NC), , O2 Device: Nasal cannula, RT Orders: 04/16/19 1020 TRACH STATUS [[id number]] CONTINUOUS ?Discontinue Comments: Cap trach continuously as tolerated. References: Adult Respiratory Consult Protocol Question Answer Comment Trach Status Trach change 03/28 Trach Tube (Brand) Bivona Size (I.D.) mm 7 Inner Cannula N/A Specify cuff status Deflate continuously Remove trach sutures in 5 days? N/A 04/16/19 1018 Resp Care Orders (24h ago through 24h from now) Start Ordered 04/16/19 1600 Respiratory Care Evaluation Only [[id number]] EVERY 4 HOURS ?Discontinue?Reschedule Comments: #7 Bivona, plugged References: Adult Respiratory Consult Protocol Order ID Start Status 04/18/19 0400 Scheduled 04/18/19 0800 Scheduled 04/16/19 1535 Unscheduled Nebulizer Treatment Intermittent [[id number]] EVERY 4 HOURS PRN ?Discontinue References: Adult Respiratory Consult Protocol 04/13/19 0833 Unscheduled Airway Clearance Therapy [[id number]] PRN ?Discontinue References: Adult Respiratory Consult Protocol 04/13/19 1545 Unscheduled Speaking/Swallowing Trach Valve Placement By RT [[id number]] PRN ?Discontinue References: Adult Respiratory Consult Protocol Question: Place valve for expiratory tracheal pressures (cm H2O) Answer: 5 or less 04/16/19 1018 Unscheduled Trach Collar Oxygen [[id number]] PRN ?Discontinue Comments: Keep patient on continuously [...] decreased Response: Mild response, increase subjective per SANDWICH PEDDLER Pulse: <100 Resp Rate: 18-25 SOB: With [...] flush 10 mL intercatheter WEEKLY Wool Alcoh-Min Xhm-Gnhwt-Erbor (EUCERIN) cream topical PRN zinc sulfate (ZINCATE) [...] to daily #Paroxysmal atrial fibrillation: Patient without BLADDER CHANGER diagnosis, has been paroxysmal throughout the hospitalization. [...] C, zinc -??nutrition consulted, appreciate recs - APPOINTMENT SCHEDULER consulted, appreciate recs #Unstageable sacral pressure ulcer -Wound care following?? - Mepilex/dressing changes per wound care - air mattress with frequent dressing changes ?? VTE Prophylaxis Enoxaparin 40mg daily ?? Discharge Plan BETITO anticipated ?? Consults APPOINTMENT SCHEDULER, PT, OT, nutrition Jaswinder Newman 04/17/2019 7:53 [...] nocturnalize tube feeds, advance diet as per APPOINTMENT SCHEDULER and pursue BETITO Maza MD * Jess [...] flush 10 mL intercatheter WEEKLY Wool Alcoh-Min Tcw-Plrte-Dryss (EUCERIN) cream topical PRN zinc sulfate (ZINCATE) capsule 220 mg per g tube DAILY Pertinent Labs: Lytes, mg, phos:nl Iron saturation 10% ?? Estimated Nutrition Intake: 100% TF past 3 days Estimated needs on new wt of 55.5K: >1900 for anabolism (BEE x 1.5) 85-100 gm pro (1.5-1.8/kg) ?? Assessment: Wt continues down, need to monitor, current BMI low at 17.5. Passed APPOINTMENT SCHEDULER eval and ate a good lunch. Will [...] QOD Reta Al RD B6 Dietitian Pager: [phone] * Madelyn Knowles, PT - 04/16/2019 0833 EDT [facility] Rehabilitation Therapy Acute Therapies [facility] Physical Therapy Encounter Note Date of [...] recommended at this time Primary Therapist: Pager: [phone] Madelyn Knowles, PT 04/16/2019 14:43 * Shelly Simon, OT - 04/16/2019 1137 EDT [facility] Rehabilitation Therapy Acute Therapies [facility] - Occupational Therapy Encounter Note Date of [...] be determined by next care provider Pager: [phone] SHELLY SIMON OT, 04/16/2019, 11:37 * Rona Negron, [facility]-APPOINTMENT SCHEDULER - 04/16/2019 1130 EDT Speech-Language Pathology Voice Prosthesis & Swallowing Consults APPOINTMENT SCHEDULER Diagnosis: Aphonia, Loss of Voice: Medical Diagnosis: [id number] J18.9 Pneumonia, unspecified organism-J18.9[ICD-10-CM] Date of Service: [...] self suction.Speaking Valve Placement: No Cap: yes, cured meats supervisor in place Vocal quality with #7 trach and cap: breathy, with air escape from trach site due to smaller trach,larger stoma and need for healing of stoma site Clinical Swallow Consult Positioning: Sitting uptight in bed Oral Peripheral Exam: Face: Symmetric, ng tube in nares Lips: Symmetric Oral Mucosa: [place] and Moist Tongue: WNL Velum: Symmetrical soft [...] will continue to improve. Functional Communication Measures ([place] Speech- Language- [employer], 2002). The Functional Communication Measures (FCM???s) are a series of 7 point rating scales, ranging fromleast functional (Level 1) to most functional (Level 7). They have been developed by SUE to describe different aspects of patient???s functional communication and swallowing abilities over the course of APPOINTMENT SCHEDULER intervention. Voice following Tracheostomy Level 4: The [...] Patient will continue to benefit for further APPOINTMENT SCHEDULER intervention in this setting to address dysphagia [...] once he needs to go to rehab. APPOINTMENT SCHEDULER to follow Discharge Plan: Pt will require inpatient rehabilitation stay. Pager # [phone] (Float APPOINTMENT SCHEDULER Department) * Sheela Agudelo RT - 04/16/2019 [...] flush 10 mL intercatheter WEEKLY Wool Alcoh-Min Xup-Yaayo-Ftfze (EUCERIN) cream topical PRN zinc sulfate (ZINCATE) [...] a fib with RVR when transferred from [facility] to the [facility] MICU. - rate control with metoprolol 12.5 big - [id number] score of 1 (1 point for age, [...] C, zinc -??nutrition consulted, appreciate recs - APPOINTMENT SCHEDULER consulted, appreciate recs ?? #Sacral deep tissue injury. Wound with white/yellow sloughing present.?? - Mepilex/dressing changes - air mattress with frequent dressing changes VTE Prophylaxis Enoxaparin 40mg daily Discharge Plan BETITO anticipated Consults APPOINTMENT SCHEDULER, PT, OT, nutrition Jaswinder Newman 04/16/2019 8:27 [...] to daily #Paroxysmal atrial fibrillation: Patient without BLADDER CHANGER diagnosis, has been paroxysmal throughout the hospitalization. -Start metoprolol 12.5 mg twice daily -no AC at present due to GI hemorrhage and low CHADS score ?? #Severe??protein calorie malnutrition??and Critical Care myopathy - continue tube feeds which are at goal --Per APPOINTMENT SCHEDULER, can advance diet to dysphagia 3 with clear liquids. Add mighty shakes. - continue multivitamin, vitamin C, zinc -??nutrition consulted, appreciate recs - APPOINTMENT SCHEDULER consulted, appreciate recs #Sacral deep tissue injury. Wound with white/yellow sloughing present.?? - Mepilex/dressing changes - air mattress with frequent dressing changes Housekeeping: DVT ppx: enoxaparin 40mg daily Diet: tube feeds with dysphagia 3 diet Consults: APPOINTMENT SCHEDULER, OT, PT, Nutrition Discharge Plan: anticipate BETITO [...] C, zinc -??nutrition consulted, appreciate recs - APPOINTMENT SCHEDULER consulted, appreciate recs #Sacral deep tissue injury. Wound with white/yellow sloughing present.?? - Mepilex/dressing changes - air mattress with frequent dressing changes DVT ppx: enoxaparin 40mg daily Diet: tube feeds with dysphagia 2 diet Consults: APPOINTMENT SCHEDULER, OT, PT, Nutrition Discharge Plan: anticipate BETITO Dr. Katja Pierson MD PGY-2 ATTENDING ATTESTATION: Date of service: 04/15/2019 I interviewed and examined the patient; reviewed interval labs, events, and notes. I discussed the case with the medicine house staff team and agree with and addended (in blue) the findings and plan of care as documented in resident note above. Sehlly Guzman MD Internal Medicine Hospitalist Attending * [...] decreased Response: Mild response, increase subjective per SANDWICH PEDDLER Pulse: <100 Resp Rate: 18-25 SOB: With [...] decreased Response: Mild response, increase subjective per SANDWICH PEDDLER Pulse: <100 Resp Rate: 18-25 SOB: With [...] events; Pt with pmhx COPD here from [facility] 03/17 with septic shock and [...] COPD and tobacco use who was transferred??to [facility] mICU from??[facility] 03/17/19 with??septic shock and??ARDs??secondary to presumed [...] COPD and tobacco use who was transferred??to [facility] mICU from??[facility] 03/17/19 with??septic shock and??ARDs??secondary to presumed [...] be transferred to the floor on 04/12. librarian school of 04/13 patient developedincreasing supplemental O2 requirements [...] -??Clonazepam BID PRN for anxiety - PT/OT??following -APPOINTMENT SCHEDULER following: recommended dysphagia II diet -Considering??Transitioning??to uncuffed [...] help. RT Stacie 04/14/19 * Rona Negron, CCC-APPOINTMENT SCHEDULER - 04/13/2019 1353 EDT Speech-Language Pathology Voice Prosthesis & Swallowing Consults APPOINTMENT SCHEDULER Diagnosis: Aphonia, Loss of Voice: Medical Diagnosis: [id number] J18.9 Pneumonia, unspecified organism-J18.9[ICD-10-CM] Date of Service: [...] tube in nares Lips: Symmetric Oral Mucosa: [place] and Moist Tongue: WNL Velum: Symmetrical soft [...] physiology will also improve. Functional Communication Measures ([place] Speech- Language- Hearing Association, 2002). The Functional Communication Measures (FCM???s) are a series of 7 point rating scales, ranging fromleast functional (Level 1) to most functional (Level 7). They have been developed by SUE to describe different aspects of patient???s functional communication and swallowing abilities over the course of APPOINTMENT SCHEDULER intervention. Voice following Tracheostomy Level 4: The [...] Patient will continue to benefit for further APPOINTMENT SCHEDULER intervention in this setting to address dysphagia [...] once he needs to go to rehab. APPOINTMENT SCHEDULER follow-up: APPOINTMENT SCHEDULER to follow-up Discharge Plan: Out of ICU. Then, pt will require inpatient rehabilitation stay. P[facility] # [phone] [facility]) Electronically signed by Rona Negron [facility]-APPOINTMENT SCHEDULER at 04/13/2019 14:13 EDT Electronically signed by Rona Negron [facility]-APPOINTMENT SCHEDULER at 04/13/2019 14:19 EDT * Eliel Oswald, PT - 04/13/2019 1325 EDT Rehabilitation Therapies Acute Therapies [facility] Physical TherapyContact Note Date of Service: 04/13/2019 [...] - 04/13/2019 1118 EDT Rehabilitation Therapies Acute [facility] Occupational Therapy Contact Note [...] ?? Pt arrived on Tuesday morning from [facility] with a pink blanchable area on [...] Mixon MD, MD - 04/13/2019 0952 EDT SLEEVE SEWER Note S: Called to the bedside at [...] respiratory failure - transfer to MICU - [facility] Jeyson Lim MD 04/13/2019 9:52 Attending Attestation [...] past medical history??and current smoker??who presents from [facility] 03/17/2019 with??ARDS, and septic shock secondary to [...] COPD and tobacco use who was transferred??to [facility] mICU from??[facility] 03/17/19 with??septic shock and??ARDs??secondary to presumed [...] -??Clonazepam BID PRN for anxiety - PT/OT??following -APPOINTMENT SCHEDULER following: swallow study performed 04/11. High risk of aspiration. Per documentation by APPOINTMENT SCHEDULER, dysphagia likely secondary to decondition state, weakness, [...] Clinical Condition: gaurded Dorinda Parada, MS4 Pager: [phone] 04/13/2019 12:06 Attending attestation statement: I saw [...] Nursing Note (SBAR) Team Times: Call Type: SLEEVE SEWER Call Time: 216 Call Date: 04/13/19 Call Originator: Nurse EMELY Arrival at Bedside: 219 Team Completion Time: 244 EMELY Completion Time: 244 Code Status: DNR Initial Vitals: BP: 137/78 Heart Rate: 107 BPM SpO2: 97 % Skin Color: [place] Neurological Assessment: Pupils: Pupils equal, round, reactive Altered Mental Status: No Cardiovascular Assessment: Chest Pain: No Respiratory Assessment: O2 Device: Trach collar O2 Flow Rate (L/min): 12 l/min Breath Sounds Bilateral: Clear GI/ Assessment: Patient Status: Disposition: Transferred Transferred to: MICU Team Members: EMELY (Name): Luis Fernando Johnson Amy Hospitalist (Name): Apurva LAW (Name): Sindy Call debriefed with: Nurse Additional Detail: Responded to SLEEVE SEWER call for reported hypoxia. Upon arrival, pt was alert, supine, high fowlers. Per bedside RN, pt had de-satted on 40%FiO2, and ABG following showed hypoxia. O2 had been increased to 50% prior to arrival, and sats were then 91% via trach collar. Pt had Passy-Shawnee valve on and denied SOB, pain, but stated that he felt he could be suctioned. LS rhochitic throughout. Trach suctioning performed, and pt was able to produce thick, yellow sputum from trach site. LS clear post-suctioning, O2 sats improved. Decision was made to transfer pt to MICU for resolution of hypoxia. Pt transferred without issue. Please call SLEEVE SEWER nurse for any further questions or concerns. * Kathrine Dolan, RD - 04/12/2019 1526 EDT Nutrition Reassessment: ?? Medical Summary: Shirlene Bryan is a 64 y.o. male admitted on 03/17/2019 with a pmhx significant for COPD and tobacco use who was transferred??to [facility] mICU from??[facility] 03/17/19 with??septic shock and??ARDs??secondary to presumed [...] functional status. He is now speaking through ADVERTISING CLERK valve and tolerating TC oxygen. ?? Subjective: [...] Kathrine Dolan RD, CD B4 Dietitian Pager: [phone] * Melba Perez - 04/12/2019 1319 EDT [...] past medical history??and current smoker??who presents from [facility] 03/17/2019 with ARDS, and septic shock secondary [...] COPD and tobacco use who was transferred??to [facility] mICU from??[facility] 03/17/19 with??septic shock and??ARDs??secondary to presumed [...] functional status. He is now speaking through ADVERTISING CLERK valve and tolerating TC oxygen. ?? Plan [...] -??Clonazepam BID PRN for anxiety - PT/OT??following -APPOINTMENT SCHEDULER following: swallow study performed 04/11. High risk of aspiration. Per documentation by APPOINTMENT SCHEDULER, dysphagia likely secondary to decondition state, weakness, [...] Daily Checklist: Completed Dorinda Parada, MS4 Pager: [phone] 04/12/2019 6:42 Attending attestation statement: I saw [...] well RT HIMANSHU 04/12/19 * Rona Negron, [facility]-APPOINTMENT SCHEDULER - 04/11/2019 1435 EDT Speech-Language Pathology Voice Prosthesis Consult and Swallowing Evaluation APPOINTMENT SCHEDULER Diagnosis: Aphonia, Loss of Voice: Medical Diagnosis: [id number] J18.9 Pneumonia, unspecified organism-J18.9[ICD-10-CM] Date of Service: [...] Needed done by RTSpeaking Valve Placement: Yes: Passy-Shawnee Valve (PMV) Patient response to valve placement: [...] tube in nares Lips: Symmetric Oral Mucosa: [place] and Moist Tongue: WNL Velum: Symmetrical soft palate elevation during phonation attempts Dentition: Adequate dentition Jaw Excursion: Adequate Consistencies Tested: was assessed with ice chips only Methods of Delivery: All items were administered by APPOINTMENT SCHEDULER using a spoon. Oral Phase Findings: Oral [...] physiology will also improve. Functional Communication Measures ([place] Speech- Language- Hearing Association, 2002). The Functional Communication Measures (FCM???s) are a series of 7 point rating scales, ranging fromleast functional (Level 1) to most functional (Level 7). They have been developed by SUE to describe different aspects of patient???s functional communication and swallowing abilities over the course of APPOINTMENT SCHEDULER intervention. Voice following Tracheostomy Level 1: The [...] Patient will continue to benefit for further APPOINTMENT SCHEDULER intervention in this setting to address dysphagia [...] maintaining oral hygiene and minimizing harmful bacteria. APPOINTMENT SCHEDULER follow-up: APPOINTMENT SCHEDULER to follow-up Discharge Plan: Out of ICU. Then to be determined, but will likely require an inpatient rehabilitation stay. Pager # [phone] (Float APPOINTMENT SCHEDULER Department) * Jatin Taylor, RT - 04/11/2019 4472 EDT Images from the original note were [...] left off patient at this time. 1415: APPOINTMENT SCHEDULER here to re-evaluate patient. Speaking valve placed for APPOINTMENT SCHEDULER, but was again removed due to secretions (see APPOINTMENT SCHEDULER note). Patient currently on a 50% trach collar sating 99%. RT will attempt to wean FiO2 RT Alen 04/11/19 * Shelly Simon, OT - 04/11/2019 1112 EDT [facility] Rehabilitation Therapy Acute Therapies [facility] - Occupational Therapy Encounter Note Date of [...] be determined by next care provider Pager: [phone] SHELLY SIMON OT, 04/11/2019, 11:12 * Michael Thomason MD, - 04/11/2019 0619 EDT Critical Care Progress Note Service Date: 04/11/2019 Admit Date: 03/17/2019 9:03 Reason for Admission to ICU: Shirlene Bryan is a 64 y.o male with no past medical history??and current smoker??who presents from [facility] with ARDS, and septic shock secondary to presumed pneumonia Critical and life-threatening events over the past 24 hours: -desated to 94% SpO2 which improved after secretions removed -ADVERTISING CLERK placed -UO: 300, I/O: +1.3, net negative [...] COPD and tobacco use who [facility] 03/17/19 with septic shock and??ARDs??secondary to [...] functional status. He is now speaking through ADVERTISING CLERK valve and tolerating TC oxygen trials Plan [...] -??Clonazepam BID PRN for anxiety - PT/OT??following -APPOINTMENT SCHEDULER following -Transition to uncuffed trach if able [...] Daily Checklist: Completed Dorinda Parada, MS4 Pager: [phone] 04/11/2019 11:38 Attending attestation statement: I saw [...] amounts of frothy white secretions easily. Patients [id number] improved after secretions removed as well as [...] Monreal, RT 04/11/19 * Davida Randhawa, MS [facility]-APPOINTMENT SCHEDULER - 04/10/2019 1511 EDT Images from the original note were not included. Speech-Language Pathology Voice Prosthesis Evaluation APPOINTMENT SCHEDULER Diagnosis: Aphonia, Loss of Voice: Medical Diagnosis: [id number] J18.9 Pneumonia, unspecified organism-J18.9[ICD-10-CM] Date of Service: 04/10/2019; 15:13 Date of Onset: 03/17/2019 Date of Referral: 04/09/19 Start Time: 0900 Total Therapy minutes: 30 minute(s) SUBJECTIVE: It's wonderful verbalized with speaking valve in place. OBJECTIVE: Medical History: Leticia Galdamez MD, Pulmonary & Critical Care Medicine 03/17/2019 Shirlene Bryan is a 64 y.o male with no past medical history and [facility]. ?? Per note from [facility], he presented on 03/15 after having 2 and half weeks of symptoms that started with fever and loss of appetite. The fever resolved after 1 week. He also reported weakness, fatigue,body aches, diarrhea, vomiting during that period. He had decreased food and fluid intake. The patient has not been seen by a doctor for about 10 years. ?? On presentation to [facility] he was hemodynamically stable. Labs [...] Consented to Evaluation: Yes Members present for Evaluation:APPOINTMENT SCHEDULER and RT (Sheela Agudelo) Current Status: Cognitive [...] Exam: Face: Symmetric Lips: Symmetric Oral Mucosa: [place] and Moist Tongue: WNL Velum: Symmetrical soft palate elevation during phonation attempts Dentition: Adequate dentition Jaw Excursion: Adequate Voice Prosthesis Evaluation Tracheostomy cuff deflated by: Sheela Mendoza Suctioning needed: Not neededManometry/Gloved finger occlusion completed by: Sheela Mendoza Response to Manometry/gloved finger occlusion: Tolerated Vocal quality during finger occlusion: Strained/Effortful and Wet Speaking Valve Placement: Yes: Passy-Shawnee Valve (PMV) Patient response to valve placement: [...] continuously with trach collar. Functional Communication Measures ([place] Speech- Language- Hearing Association, 2002). The Functional Communication Measures (FCM???s) are a series of 7 point rating scales, ranging fromleast functional (Level 1) to most functional (Level 7). They have been developed by [facility] to describe different aspects of patient???s functional communication and swallowing abilities over the course of APPOINTMENT SCHEDULER intervention. Voice following Tracheostomy Level 4: The [...] in swallowing evaluation with speaking valve on. APPOINTMENT SCHEDULER follow-up: APPOINTMENT SCHEDULER to follow-up within 48 hours. Discharge Plan: Unknown at time of evaluation. Davida Randhawa MS, CCC-APPOINTMENT SCHEDULER Speech Language Pathologist Pager #[phone] (Tuesday - Tuesday [phone]) Pager # [phone] (Float APPOINTMENT SCHEDULER Department) * Madelyn Knowles, PT - 04/10/2019 1458 EDT [facility] Rehabilitation Therapy Acute Therapies [facility] Physical Therapy Encounter Note Date of [...] recommended at this time Primary Therapist: Pager: [phone] Madelyn Knowles, PT 04/10/2019 14:58 * Dorinda [...] Simon, OT - 04/10/2019 1106 EDT [facility] Rehabilitation Therapy Acute Therapies [facility] - Occupational Therapy Encounter Note Date of [...] be determined by next care provider Pager: [phone] SHELLY SIMON OT, 04/10/2019, 11:06 * Sheela Agudelo, RT - 04/10/2019 0920 EDT Images from the original note were not included. Respiratory Continuing Care Note: Speaking/Swallowing Valve Assessment with APPOINTMENT SCHEDULER/RT: Date of Service: 04/10/19 Trach days, Placement date, Service, date changed: 13 days, place by [facility] Indication for trach: Mechanical ventilation Trach Brand [...] Valve was placed. Patient tolerating well. See APPOINTMENT SCHEDULER's full note. Recommendations/Plan: 1. Speaking valve on continuously with trach collar as tolerated. RT Edin 04/10/2019 9:21 * Michael Thomason MD, - 04/10/2019 0635 EDT Critical Care Progress Note Service Date: 04/10/2019 Admit Date: 03/17/2019 9:03 Reason for Admission to ICU: 64 y.o.??male??with a pmhx significant for COPD and tobacco use who was transferred from [facility] 03/17??admitted to the MICU for septic shock and??ARDs??secondaryto presumed pneumonia. Critical and life-threatening events over the past 24 hours: - Afebrile - UO: 950ml, I/O: +0.75L (04/09/19). Net negative 9.3L since admission - Trach oxygen trial 8 - 10 hours yesterday tolerated well. Subjective/Objective Subjective Assessed in bed. No pain or dyspnea. Eager to be cleared by APPOINTMENT SCHEDULER and have a popsicle. Review of Systems [...] COPD and tobacco use who [facility] 03/17/19 with septic shock and??ARDs??secondary to [...] PMV. -??Clonazepam BID PRN for anxiety - APPOINTMENT SCHEDULER following: speaking/swallowing trach valve ordered per recommendation from APPOINTMENT SCHEDULER??when he meetseligibility. - PT/OT??following ?? #COPD - [...] Bryan : 1955, AGE: 64 y.o. Room: [place] [address] Fingernail Sculptor attempted visit with Shirlene Bryan who is listed as Unknown on 04/09/2019. Need/Assessment: ?? At time of visit Shirlene, was unavailable. ?? If Shirlene, and/or family member needs or would like a restaurant attendant visit, please contact the Spiritual Care Department- call [phone] or if more urgent needs, page us through PASS ([phone]). Chaplain Leila Celis [address] Phone [phone] Spiritual Care is available 24 hours a day. Chaplains are available 24 hours a day. For routine consults please call and leave a message with the Spiritual Care Office ([phone]) and patients will be seen within 24 hours. For all emergent consults page the [facility] or [facility] on-call Fingernail Sculptor through PAS ([phone]). * Rona Negron CCC-APPOINTMENT SCHEDULER - 04/09/2019 1510 EDT Speech-Language Pathology Contact Note APPOINTMENT SCHEDULER consult received for: Speaking Valve Evaluation. Patient is currently not appropriate for evaluation as he was very fatigued this afternoon. APPOINTMENT SCHEDULER spoke to Florecita (M4 RT) and Sheela (RT) and will plan for APPOINTMENT SCHEDULER and RT to see pt tomorrow morning for Speaking Valve Evaluation. Rona Negron CCC-APPOINTMENT SCHEDULER 04/09/2019 15:10 * Madelyn Knowles, PT - 04/09/2019 1508 EDT [facility] Rehabilitation Therapy Acute Therapies [facility] Physical Therapy Encounter Note Date of [...] recommended at this time Primary Therapist: Pager: [phone] Madelyn Knowles, PT 04/09/2019 15:08 * Reta [...] vit D3 daily Reta Rivera Dietitian Pager: [phone] * Shelly Simon, OT - 04/09/2019 0944 EDT [facility] Rehabilitation Therapy Acute Therapies [facility] - Occupational Therapy Encounter Note Date of [...] x 10 reps each with #10 db [place] exercise sponge x 10 gross grasp LUE: Shoulder flexion with AROM x 10 reps Partial overhead press with 1 # db x 5 reps Forward chest press x 10 reps AAROM Elbow flexion x 10 reps with 1# DB Supination/proantion, wrist flexion,extension x 10 reps each with #10 db [place] exercise sponge x 10 gross grasp Patient [...] be determined by next care provider Pager: [phone] SHELLY SIMON OT, 04/09/2019, 9:44 * Florecita Khan, RT - 04/09/2019 0933 EDT Respiratory Progress Note Indications for Respiratory [...] white secretions. PMV discussed in rounds. Suggested APPOINTMENT SCHEDULER eval. PMV in the near future, discussed with APPOINTMENT SCHEDULER. Mentioned checking tracheal pressures to see where [...] and tobacco use who was transferred from [facility] 03/17??admitted to the MICU for septic [...] and tobacco use who was transferred from [facility] 03/17??admitted to the MICU for septic [...] as tolerated -??clonazepam BID PRN for anxiety -APPOINTMENT SCHEDULER following: speaking/swallowing trach valve ordered per recommendation from APPOINTMENT SCHEDULER??when he meets eligibility. I will reach out [...] Rounding checklist completed Dorinda Parada, MS4 Pager: [phone] 04/09/2019 10:58 Attending attestation statement: I saw [...] RVR (HCC-CMS) Acute respiratory failure with hypoxia ([facility]-CMS) Septic shock ([facility]-CMS) ARDS (adult respiratory distress syndrome) (HCC-CMS) SIRISHA [...] and tobacco use who was transferred from [facility] 03/17??admitted to the MICU for septic [...] and tobacco use who was transferred from [facility] 03/17??admitted to the MICU for septic [...] today - clonazepam BID PRN for anxiety -APPOINTMENT SCHEDULER following: speaking/swallowing trach valve ordered per recommendation from APPOINTMENT SCHEDULER when meets eligibility. -PT/OT??following #COPD -Duonebs q6h [...] Daily Checklist: Completed Dorinda Parada, MS4 Pager: [phone] 04/08/2019 11:54 MICU Attending Shirlene Bryan is [...] resp status, lines look clean, will remove prak catheter, low grade fever could be relatedto [...] 04/07/19 * Jennifer Cagle MD - 04/07/2019 3333 EDT Critical Care Progress Note Service Date: 04/07/2019 Admit Date: 03/17/2019 9:03 Reason for Admission to ICU: 64 y.o.??male??with a pmhx significant for COPD and tobacco use who was transferred from [facility] 03/17??admitted to the MICU for septic [...] and tobacco use who was transferred from [facility] 03/17??admitted to the MICU for septic [...] workup - clonazepam BID PRN for anxiety -APPOINTMENT SCHEDULER following: speaking/swallowing trach valve ordered per recommendation from APPOINTMENT SCHEDULER when meets eligibility. -PT/OT following ?? #COPD [...] Checklist: Completed Jonatan Martinez, PGY-3, Contact via [employer] 04/07/2019 8:47 Attending attestation statement: I saw [...] sputum. Improved aeration following intervention. 2103 - [place] changed to 0 for patient comfort on ventilator. Rate maintained in mid to upper 20s attimes following setting alteration. 0018 - Expiratory wheezes and diminished breath sounds noted on chest ascultation. Another duoneb was administered. Improved aeration following senior medical writer. Otherwise, continues to rest comfortably on current [...] 04/06/19 * Eliel Oswald, PT - 04/06/2019 5039 EDT Rehabilitation Therapies Acute Therapies [place] Physical TherapyContact Note Date of Service: 04/06/2019 Patient not seen today. Sleeping soundly and on the vent. Discussed with RN who had previously assisted patient to dangle on side of bed and agreed to lift him to chair when appropriate. Will follow up next week. [id number] Eliel Oswald, PT 04/06/2019 16:23 * Melba Perez - 04/06/2019 1616 EDT I met with patient and Lawanda this afternoon, gave Lawanda a gas card from [employer]. Patientwas not up for working on his bills today. Lawanda will try to help him next week. NADIR HeSW * Kori Doan CCC-APPOINTMENT SCHEDULER - 04/06/2019 1606 EDT Speech-Language Pathology Contact Note APPOINTMENT SCHEDULER returned to re-assess readiness for a speaking valve trial. Patient is currently asleep and on the ventilator, spoke with RT Paola. Pt with high RR in the AM anddecision was made to keep pt on vent support for the day. Comments/Considerations: APPOINTMENT SCHEDULER to re-assess readiness early next week. GAYLE Demarco 04/06/2019 16:06 Fridays: Pager #[phone] APPOINTMENT SCHEDULER Acute Care Pgr #[phone] * Reta Al RD - 04/06/2019 0955 EDT No BM yesterday, will d/c psyllium Reta Al RD * Shelly Simon, OT - 04/06/2019 0939 EDT [facility] Rehabilitation Therapy Acute Therapies [facility] - Occupational Therapy Encounter Note Date of [...] x 10 reps each with #10 db [place] exercise sponge x 10 gross grasp and lateral pinch LUE: Shoulder flexion with AAROM x 10 reps Forward chest press x 10 reps AAROM Elbow flexion x 10 reps with 1# DB Supination/proantion, wrist flexion,extension x 10 reps each with #10 db [place] exercise sponge x 10 gross grasp and [...] be determined by next care provider Pager: [phone] SHELLY SIMON OT, 04/06/2019, 9:39 * Paola [...] and tobacco use who was transferred from [facility] 03/17??admitted to the MICU for septic [...] and tobacco use who was transferred from [facility] 03/17??admitted to the MICU for septic [...] -started on clonazepam BID PRN for anxiety -APPOINTMENT SCHEDULER following: speaking/swallowing trach valve ordered per recommendation from APPOINTMENT SCHEDULER when meets eligibility. -PT/OT following ?? #COPD [...] Daily Checklist: Completed Dorinda Parada, MS4 Pager: [phone] 04/06/2019 13:36 Attending attestation statement: I saw [...] Jocelyn Coto MD MICU Attending 04/06/2019 * Sindy Christensen, RT - 04/06/2019 0522 EDT Respiratory [...] SINDY CHRISTENSEN, RT 04/06/19 * Kori Doan CCC-APPOINTMENT SCHEDULER - 04/05/2019 1445 EDT Speech-Language Pathology Contact Note APPOINTMENT SCHEDULER consult received for: Communication-Cognitive Evaluation and Speaking Valve Evaluation. Patient is currently not able to participate in evaluation - spoke with RT Kathy - he is needing rest on the vent. Comments/Considerations: Speech-Language Pathologist to return within 24 hours. Kori Doan CCC-APPOINTMENT SCHEDULER 04/05/2019 14:45 * Eliel Oswald, PT - 04/05/2019 1350 EDT Rehabilitation Therapies Acute Therapies [facility] Physical TherapyContact Note Date of Service: 04/05/2019 [...] Simon, OT - 04/05/2019 1150 EDT [facility] Rehabilitation Therapy Acute Therapies [facility] - Occupational Therapy Encounter Note Date of [...] be determined by next care provider Pager: [phone] SHELLY SIMON OT, 04/05/2019, 11:50 * Melba [...] requiring MD orders: none Reta Al RD [place] 4 Dietitian Pager: [phone] * Jocelyn Coto MD - 04/05/2019 0649 EDT Critical Care Progress Note Service Date: 04/05/2019 Admit Date: 03/17/2019 9:03 Reason for Admission to ICU: 64 y.o.??male??with a pmhx significant for COPD and tobacco use who was transferred from [facility] 03/17??admitted to the MICU for septic shock and??ARDs??secondaryto presumed pneumonia. Critical and life-threatening events over the past 24 hours: -tachypneic with O2 desats on trach collar oxygen overnight -UO: 0.740L, I/O: +0.7L (04/05), net negative 5L since admission Subjective/Objective Subjective No pain today. No complaints overnight. [place] breathing was fine overnight on trach collar [...] and tobacco use who was transferred from [facility] 03/17??admitted to the MICU for septic [...] if spikes will repeat cxs and CXR -APPOINTMENT SCHEDULER following -PT/OT following ?? #COPD -Duonebs q6h [...] Daily Checklist: Completed Dorinda Parada, MS4 Pager: [phone] 04/05/2019 11:40 Attending attestation statement: I saw [...] suctioning. * Eliel Oswald, PT - 04/04/2019 7671 EDT [facility] Rehabilitation Therapy Acute Therapies [facility] Physical Therapy Encounter Note Date of Service: 04/04/2019 Subjective/Objective Subjective I'm tired Patient mouthing words. On trach collar trial Objective Intervention completed today: Time: 6776-9985 Total treatment time: 30 minutes. Timed code [...] recommended at this time Primary Therapist: Pager: [phone] Eliel Oswald PT 04/04/2019 15:07 * Rona Negron CCC-SLP - 04/04/2019 1441 EDT Speech-Language Pathology Contact Note APPOINTMENT SCHEDULER consult received for: Clinical Bedside Swallow Evaluation and Communication- Cognitive Evaluation. Patient is currently not appropriate for evaluation secondary as currently on trach collar trials day 2. Comments/Considerations: Speech-Language Pathologist to see pt after he is tolerating trach collar for 3 consecutive days. At that time, APPOINTMENT SCHEDULER will coordinate with RT to do speaking valve evaluation. Please write orders for Speaking Valve Evaluation. GAYLE Galo 04/04/2019 14:41 * Viktoria aFrr RN - 04/04/2019 1345 EDT Images from the original note were not included. 04/04 ?? 03/19: While on unit asked by bedside nurse to assess purple area on coccyx. ?? Pt arrived on Tuesday morning from [facility] with a pink blanchable area on [...] Simon OT - 04/04/2019 1129 EDT [facility] Rehabilitation Therapy Acute Therapies [facility] Occupational Therapy Initial Evaluation Note Date of Service: 04/04/2019 Reason for Referral: Evaluate and treat Precautions: Activity as tolerated SUBJECTIVE: non verbal, able to mouth a few words, correctly write the year Pain: No pain reported during the interview. OBJECTIVE: Patient Profile: Shirlene Bryan is a right hand dominant 64 y.o. male admitted on 03/17/2019 secondary to [id number] J18.9 Pneumonia, unspecified organism-J18.9[ICD-10-CM] The patient lives at [address] [place] [address] History of Present Illness/Injury: Per Dr. Galdamez's H&P: Shirlene Bryan is a 64 y.o male withno past medical history and current smoker who presents from [facility] with rapid atrial fibrillation. ?? Per note from [facility], he presented on 03/15 after having 2 and half weeks of symptoms that started with fever and loss of appetite. The fever resolved after 1 week. He also reported weakness, fatigue,body aches, diarrhea, vomiting during that period. He had decreased food and fluid intake. The patient has not been seen by a doctor for about 10 years. ?? On presentation to [facility] he was hemodynamically stable. 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 Attention appropriate. Nodded appropriately to yes/refrigeration service technician questions Global mental functions: A/Ox to self, [...] GOALS: Short Term Goals: - ?? - Chief Console Operator Goals: 2-3 weeks ?? Patient will maintain [...] be determined by next care provider Pager: [phone] SHELLY SIMON OT, 04/04/2019, 11:30 * Melba [...] 162-93/81-47, pulse: 69-90 , resp. rate 18-28, GlP3969 % on VC-AC. Physical Exam Gen: AAOX3, [...] and tobacco use who was transferred from [facility] 03/17 admitted to the MICU for [...] to bring in violin ?? Endocrine - h9rugjq POC G checks - SSI as needed Lines -PICC -PIV -Park Prophylaxis - GI -??PPI - DVT -??Enoxparin Communication Code Status: Limitation of Treatment. Clinical Condition: Stable Critical Care Daily Checklist: Completed Dorinda Parada, MS4 Pager: [phone] 04/04/2019 10:33 Cosigned by Jocelyn Coto MD [...] onward) Start Ordered 04/02/192099 Trach Collar Oxygen [[id number]] CONTINUOUS AT NIGHT ?Discontinue?Reschedule Comments: Keep patient on continuously as tolerated. If RR>30 or O2 sats drop significantly, transition to vent settings. Please rest patient overnight. References: Adult Respiratory Consult Protocol Question: Adjust FI02 to Maintain SpO2 greater than: Answer: 92% Order ID Start Status [id number] 04/02/192099 Sent Discontinue Details [id number] 04/03/192099 Sent Discontinue Details [id number] 04/04/192099 Sent Discontinue Details 04/05/192099 Scheduled 04/06/192099 Scheduled 04/07/192099 Scheduled 04/08/192099 Scheduled 04/02/19 1658 04/02/19 0300 Assist Control Ventilation (Mechanical Ventilation) [[id number]] CONTINUOUS ?Discontinue References: ARDS/ALI Protocol?Post Op Protocol?Weaning Protocol?ETCO2 Protocol Question Answer Comment VT (mL) 610 7 cc/kg Set Rate (f/min) 14 Peep (cm H2O) 5 Non-Invasive No ETCO2 Protocol: Yes Protocols: ARDS/ALI Autoflow: Yes 04/02/19 0259 03/28/19 1425 TRACH STATUS [[id number]] CONTINUOUS ?Discontinue References: Adult Respiratory Consult Protocol Question Answer Comment Trach Status New trach 03/28 Trach Tube (Brand) Shiley Size (I.D.) mm #8 Inner Cannula Disposable Specify cuff status Inflate continuously Remove trach sutures in 5 days? N/A 03/28/19 1425 Resp Care Orders (24h ago through 24h from now) Start Ordered Unscheduled Airway Clearance Therapy [[id number]] PRN ?Discontinue References: Adult Respiratory Consult Protocol [...] Knowles, PT - 04/03/2019 1447 EDT [facility] Rehabilitation Therapy Acute Therapies [facility] Physical Therapy Initial Evaluation Note Date of Service: 04/03/2019 Reason for Referral: Evaluate and treat Precautions: Activity as tolerated SUBJECTIVE: I am tired from being up in the chair. Pain: No pain reported during the interview. OBJECTIVE: PatientProfile: Patient is a 64 y.o. male admitted on 03/17/2019 secondary to [id number] J18.9 Pneumonia, unspecified organism-J18.9[ICD-10-CM] The patient lives at [address] [place] [id number] Per HPI: Shirlene Bryan is a 64 y.o male with no past medical history and current smoker who presents from [facility] with rapid atrial fibrillation. ?? Per note from [facility], he presented on 03/15 after having 2 and half weeks of symptoms that started with fever and loss of appetite. The fever resolved after 1 week. He also reported weakness, fatigue,body aches, diarrhea, vomiting during that period. He had decreased food and fluid intake. The patient has not been seen by a doctor for about 10 years. ?? On presentation to [facility] he was hemodynamically stable. Labs [...] overall functional mobility. [facility]. Ultimately, d/c plan is [...] by physical therapist and/or physical therapist assistant infant teacher when medically appropriate. Frequency: daily for 3-5 [...] other consults recommended at this time Pager: [phone] Madelyn Knowles PT 04/03/2019 14:47 * Shelly Simon OT - 04/03/2019 7128 EDT Rehabilitation Therapies [facility] Occupational Therapy Contact Note Date of Service: 04/03/2019 OT consult received and record reviewed. Patient just back to bed after PT session per nursing and tired. Patient is sound asleep. OT assessment deferred with plans to follow-up on 04/04/19. SHELLY SIMON OT, 04/03/2019, 13:58 * Jocelyn Coto MD - 04/03/2019 1228 EDT Critical Care Progress Note Service Date: 04/03/2019 Admit Date: 03/17/2019 9:03 Reason for Admission to ICU: 64 y.o. male with no past medical history and current smoker who was transferred from [facility] on 03/17 and admitted to the MICU [...] and current smoker who was transferred from [facility] on 03/17/19 for septic shock and ARDS [...] mobility and mood, cont PT ENDO: - e9bpvaj POC glucose checks - SSI as needed [...] and tobacco use who was transferred from [facility] 03/17 admitted to the MICU for [...] and tobacco use who was transferred from [facility] 03/17 admitted to the MICU for [...] if mood does not improve Endocrine - r1isnuq POC G checks - SSI as needed ??DERM #Deep tissue injury - Bruising on coccyx - Wound care consulted -special bed, no progression -last wound/dressing change q7 days LINES: - Park - PICC placed 03/24 ?? PPX: - GI -??PPI - DVT -??Enoxparin ?? Communication Code Status: Limitation of Treatment. Clinical Condition: stable Critical Care Daily Checklist: Completed Dorinda Parada, MS4 Pager: [phone] 04/03/2019 12:01 Cosigned by Jocelyn Coto MD [...] and current smoker who was transferred from [facility] on 03/17 for septic shock and ARDS [...] MS RD PRANAV Dee 4 Dietitian Pager: [phone] * Jocelyn Coto MD - 04/02/2019 0858 EDT Critical Care Progress Note Service Date: 04/02/2019 Admit Date: 03/17/2019 9:03 Reason for Admission to ICU: 64 y.o. male with no past medical history and current smoker who was transferred from [facility] on 03/17 and admitted to the MICU [...] in the last 72 hours. Assessment/Plan Assessment Shirlnee Bryan is a 64 yo male with a history of presumed COPD and current smoker who was transferred from [facility] on 03/17/19 for septic shock and ARDS [...] for now - Scheduled Acetaminophen ENDO: - m7wlnad POC G checks - SSI as needed [...] and current smoker who was transferred from [facility] on 03/17 and admitted to the MICU [...] and current smoker who was transferred from [facility] on 03/17 for septic shock and ARDS [...] - continue - Scheduled Acetaminophen ENDO: - r4peoev POC G checks - SSI as needed [...] RT Orders: Assist Control Ventilation (Mechanical Ventilation) [[id number]] CONTINUOUS ?Discontinue References: ARDS/ALI Protocol?Post Op Protocol?Weaning [...] and current smoker who was transferred from [facility] on 03/17 and admitted to the MICU [...] and current smoker who was transferred from [facility] on 03/17 for septic shock and ARDS [...] - continue - Scheduled Acetaminophen ENDO: - s2yqhni POC G checks - SSI as needed [...] and current smoker who was transferred from [facility] on 03/17 and admitted to the MICU [...] and current smoker who was transferred from [facility] on 03/17 for septic shock and ARDS [...] - continue - Scheduled Acetaminophen ENDO: - u5lgqvs POC G checks - SSI as needed [...] RVR (HCC-CMS) 3. SIRISHA (acute kidney injury) ([facility]) 4. ARDS (adult respiratory distress syndrome) ([facility]) Critical Care time was provided in [...] Medicine 03/30/2019 * Frank Zavala, - 03/29/2019 1994 EDT Respiratory Care Transport Note (Internal) Pre-transport [...] The patient was transported to and from [place] without incident. The SpO2 remained at 98 [...] ?? Pt arrived on Tuesday morning from [facility] with a pink blanchable area on [...] sign off at this time, please call [phone] with any questions Juan Omalley MD 03/29/2019 4:55 * JoanmichaelNataliaa - 03/29/2019 0655 EDT Critical Care Progress Note Service Date: 03/29/2019 Admit Date: 03/17/2019 9:03 Reason for Admission to ICU: 64 y.o. male with no past medical history and current smoker who was transferred from [facility] on 03/17 and admitted to the MICU [...] and current smoker who was transferred from [facility] on 03/17 for septic shock and ARDS [...] - continue - Scheduled Acetaminophen ENDO: - p9tbopr POC G checks - SSI as needed [...] and current smoker who was transferred from [facility] on 03/17 and admitted to the MICU [...] and current smoker who was transferred from [facility] on 03/17 for septic shock and ARDS [...] continue - Scheduled Acetaminophen ENDO: #Hyperglycemia - m0gioic POC G checks - SSI as needed [...] COPD and currentsmoker who was transferred from [facility] on 03/17 for septic shock and ARDS [...] formula @70 mL/hr provides daily 1,680 kcal ylr336 g protein which is appropriate to continue with current propofol use. Goal tube feed meets KENNEL OPERATOR for vitamin/minerals, therefore, MVM is not indicated [...] Dolan RD, PRANAV Dee 4 Dietitian Pager: [phone] * Leticia Galdamez MD - 03/27/2019 5831 EDT Critical Care Progress Note Service Date: 03/27/2019 Admit Date: 03/17/2019 9:03 Reason for Admission to ICU: 64 y.o. male with no past medical history and current smoker who was transferred from [facility] on 03/17 and admitted to the MICU [...] tube terminates below the diaphragm, beyond the weqjr-td-egtk. Multifocal pulmonary opacities appear slightly improved, possibly [...] and current smoker who was transferred from [facility] on 03/17 for septic shock and ARDS [...] mg/hr - Scheduled Acetaminophen ENDO: #Hyperglycemia - f0wxfve POC G checks - SSI as needed [...] Bryan : 1955, AGE: 64 y.o. Room: [place] [address] Fingernail Sculptor attempted visit with Shirlene Bryan who is listed as Unknown on 03/26/2019. Need/Assessment: ?? At time of visit Shirlene, was unavailable. ?? If Shirlene, and/or family member needs or would like a restaurant attendant visit, please contact the Spiritual Care Department- call [phone] or if more urgent needs, page us through PASS ([phone]). Chaplain Leila Celis [address] Phone [phone] Spiritual Care is available 24 hours a day. Chaplains are available 24 hours a day. For routine consults please call and leave a message with the Spiritual Care Office ([phone]) and patients will be seen within 24 hours. For all emergent consults page the [facility] or [facility] on-call Fingernail Sculptor through PAS ([phone]). * Janel Sousa RT - 03/26/2019 1143 [...] and current smoker who was transferred from [facility] on 03/17 and admitted to the MICU [...] and current smoker who was transferred from [facility] on 03/17 for septic shock and ARDS [...] Change Acetaminophen to scheduled ENDO: #Hyperglycemia - n6vyukw POC G checks - SSI as needed [...] (HCC-CMS) 4. ARDS (adult respiratory distress syndrome) ([facility]) Critical Care time was provided in the [...] and current smoker who was transferred from [facility] on 03/17 and admitted to the MICU [...] and current smoker who was transferred from [facility] on 03/17 for septic shock and ARDS [...] - Acetaminophen 1000mg prn ENDO: #Hyperglycemia - o3pinqe POC G checks - SSI as needed [...] 03/25/2019 * Shayla Galvin RN - 03/24/2019 5890 EDT Rass of -5 on Propofol/Ketamine/Fentanyl gtts [...] at 57 cc/hr + 30 cc prosource FN=059 cc q 4 hr ?? Nutrition Focused [...] suspension to crushed tabs Reta Al RD [place] [id number] Dietitian Pager: [phone] * Domenica Esquivel MD - 03/24/2019 0735 EDT Critical Care Progress Note Service Date: 03/24/2019 Admit Date: 03/17/2019 9:03 Reason for Admission to ICU: 64 y.o. male with no past medical history and current smoker who was transferred from [facility] on 03/17 and admitted to the MICU [...] and current smoker who was transferred from [facility] on 03/17 for septic shock and ARDS [...] had been 108-123 with insulin drip. - j8pvdpc POC G checks - SSI as needed [...] 70 % RT Orders: PCV+SIMV (Mechanical Ventilation) [[id number]] CONTINUOUS ?Discontinue References: ARDS/ALI Protocol?Post Op Protocol?Weaning [...] 03/24/19 * Verona Mills, RN - 03/23/2019 9476 EDT Data: assumed care at 0700. Intubated [...] our 64yo gentleman who was transferred to [facility] on 03/17/19 from [facility] where he presented 03/15 w/ progressive pneumonia/respiratory failure. Blood at [facility] grew MSSA. Since last ID [...] cultures, 1 w/ MSSA. Final, reviewed w/ [facility] lab. - 03/17/19 MRSA nasal [...] source likely pneumonia - blood 03/15 at [facility] w/ MSSA 2. Multifocal PNA, [...] Attending * Shelly Pierre, RN - 03/23/2019 0553 EDT Case Management Contact Note: Spoke with Lawanda via telephone, she is hoping to come down from [place] both Tuesday and Tuesday and was looking to see if she could get travel supports. I left a bookof parking passes and $50.00 in gas cards in Mr. Bryan's chart. She is feeling well supported and well updated by the team at this time. She was able to reach Frank Bryan who is Shirlene's brother who lives in [place], however they are reportedly estranged. Shelly Pierre RN, BSN #[id number] * Esther Canas, RT - 03/23/2019 0852 [...] 03/23/19 * Jess Ruiz RN - 03/23/2019 2134 EDT Vascular Access Progress Note Diagnosis: Active [...] and current smoker who was transferred from [facility] on 03/17 and admitted to the MICU [...] and current smoker who was transferred from [facility] on 03/17 for septic shock and ARDS [...] have been 108-123 with insulin drip. - m2tjjqc POC G checks - SSI as needed [...] as amended in blue. Clinical Condition: Shirlene rByan is a critically ill 64 y.o. male. [...] 03/23/2019 * Kim Her, RT - 03/23/2019 0329 EDT Respiratory Progress Note Indications for Respiratory [...] our 64yo gentleman who was transferred to [facility] on 03/17/19 from [facility] where he presented 03/15 w/ progressive pneumonia/respiratory failure. Blood at [facility] grew MSSA. Since last ID [...] source likely pneumonia - blood 03/15 at [facility] w/ MSSA 2. Multifocal PNA, [...] and current smoker who was transferred from [facility] on 03/17 and admitted to the MICU [...] and current smoker who was transferred from [facility] on 03/17 for septic shock and ARDS [...] on anticoagulation. Ok for heart rates in [id number]. Briefly on amiodarone yesterday, with subsequent return [...] insulin drip. - Insulin drip stopped - g9qgdle POC G checks - SSI as needed [...] our 64yo gentleman who was transferred to [facility] on 03/17/19 from [facility] where he presented 03/15 w/ progressive pneumonia/respiratory failure. Blood at [facility] grew MSSA. Since last ID [...] source likely pneumonia - blood 03/15 at [facility] w/ MSSA 2. Multifocal PNA, [...] and current smoker who was transferred from [facility] on 03/17 and admitted to the MICU [...] For Finances: No TRANSPORTATION: Transportation: Family CULTURAL, MANDAEN and/or LANGUAGE factors affecting health care/discharge planning: [...] and current smoker who was transferred from [facility] on 03/17 and admitted to the MICU [...] and current smoker who was transferred from [facility] on 03/17 for septic shock and ARDS [...] he was adequately resuscitated this am, persistent OPERATOR ENGINEER requirement may be due to ongoing SIRS response /vasodilatory shock. Lactated now down trending. - On levophed and vasopressin - Steroids - Trend lactate ?? # Rapid A. Fib Diltiazem for rhythm control at outside hospital. Not on anticoagulation. Ok for heart rates in [id number]. Briefly on amiodarone yesterday, with subsequent return [...] Glucoses have been 150s-200s with SSI. - p5omzzo POC G checks - will start insulin [...] 03/21/19 * Sirisha Lawson MD - 03/20/2019 6901 EDT ADDITIONAL CRITICAL CARE TIME PROVIDED I [...] 03/20/2019 1800 EDT MICU Attending Update from ~1745-3275 hrs.: Patient went into rapid afib with [...] and current smoker who was transferred from [facility] on 03/17 for management of atrial fibrillation [...] on propofol Dorinda Carey RD, CD Pager #[phone] * Trey Tolentino MD, MD - 03/20/2019 1200 EDT Infectious Disease Inpatient Follow-Up Patient: Shirlene Bryan : 1955 Date of Admission: 03/17/2019 Date of Service: 03/20/19 Reason for Visit: follow up Staph aureus bacteremia Interval History This is our 64yo gentleman who was transferred to [facility] on 03/17/19 from [facility] where he presented 03/15 w/ progressive pneumonia/respiratory failure. One of his blood cultures at [facility] grew coag + Staph, further [...] w/ multifocal opacities Micro: reviewed. Discussed w/ [facility] Micro Lab again today. - [...] source likely pneumonia - blood 03/15 at [facility] w/ MSSA 2. Multifocal PNA, [...] and current smoker who was transferred from [facility] on 03/17 and admitted to the MICU [...] and current smoker who was transferred from [facility] on 03/17 for management of atrial fibrillation [...] - Fentanyl prn boluses - Acetaminophen 1000mg [id number] scheduled - change to prn - wean off propofol drip as able ENDO: #Hyperglycemia Patient has been on steroids, just taken off this am Glucoses have been 180s-220 with SSI. - [id number] POC G checks - SSI - Consider [...] Critical Care Daily Checklist: Completed Yasmine Falcon 03/20/2019 6:31 Attending attestation statement: I [...] Pt was placed on a SBT from 9611-4025 @ 11/08. High MV and some dyssynchrony [...] 2024: Commercial tube topete placed, requiring two SLEEVE SEWER's and RN and increased sedation to prevent [...] and current smoker who was transferred from [facility] on 03/17 and admitted to the MICU [...] and current smoker who was transferred from [facility] on 03/17 for management of atrial fibrillation [...] UOP - Strict input and output - Aprk ?? # Metabolic acidosis - Resolved Gap [...] oral - Fentanyl prn - Acetaminophen 1000mg s3tnthp scheduled - Wean ketamine - Trial propofol again if agitated off ketamine ENDO: #Hyperglycemia Glucoses have been 180s-220 with SSI. - [id number] POC G checks - SSI - Consider [...] GI - PPI - DVT - 5000mg i6vcoms ?? Code status: Full code Clinical Condition: [...] and current smoker who was transferred from [facility] on 03/17 and admitted to the MICU [...] and current smoker who was transferred from [facility] on 03/17 for management of atrial fibrillation [...] 90 Patient with 6L fluid given at [facility], presented to MICU with JVD [...] ml ID: #Sepsis 2/2 PNA Presented to [facility] with two and a half [...] and WBC curve - f/u clx from [facility] - Follow procalcitonin 1/2 BCx at 3 days from [facility] likely false positive; f/u speciation & sensitivities Continue piptazo/azithro F/u sputum cx ?? ENDO: #Hyperglycemia - m9thcye POC G checks - SSI ?? GI: - No active issues - Diet: Replete tube feeds at 50 mL/hr - Bowel regimen ?? H/O: #Leukocytosis In the setting of pneumonia - Monitor CBC #Thrombocytopenia In the setting of pneumonia - Monitor CBC ?? NEURO/PSYCH: - Olanzapine 10mg BID oral - Fentanyl prn - Acetaminophen 1000mg s6crjsg scheduled Tried propofol infusion but again caused hypotension Continue ketamine gtt for now Would trial transitioning from ketamine to propofol again tomorrow when hemodynamics better. ?? LINES: - CVC - A line - Park ?? PPX: - GI - PPI - DVT - 5000mg [id number] ?? Code status: Full code Clinical Condition: [...] Action/Events Respiratory events; 1022: pt arrived from [facility] intubated and placed on our [...] who recently quit smoking who presented to [facility] via transfer from [facility] with Sepsis??secondary to??left lower PNA and MSSA bacteremia complicated by??acute hypoxic respiratory failure with ARDS, SIRISHA, a fib w/RVR. ?? He presented to [facility] on 03/15 due to 2 weeks of fever, anorexia, weakness, fatigue, body aches, diarrhea, vomiting and decreased intake of food and fluids. At [facility] labs were significant for Na: [...] a diltiazem drip and transferred to the [facility] MICU for management of pneumonia complicated by septic shock, ARDS, metabolic acidosis, AF w/ RVR, SIRISHA, and volume overload.? On presentation to [facility] he was on levophed and propofol. [...] Date ??? ARDS (adult respiratory distress syndrome) ([facility]) Past Surgical History: Procedure Laterality Date [...] multivitamin - nutrition consulted, appreciate recs - APPOINTMENT SCHEDULER consulted, appreciate recs ?? #COPD per CT [...] ventilation OK -reassess with patient ?? Consults -APPOINTMENT SCHEDULER, OT, PT, Nutrition ?? Admission Status -Admitted [...] receive regular medical care) who presented to [facility] via transfer from [facility] withSepsis secondary to left lower PNA and MSSA bacteremia complicated by acute hypoxic respiratory failure with ARDS, SIRISHA, a fib w/RVR. He presented to [facility] on 03/15 due to 2 weeks of fever, anorexia, weakness, fatigue, body aches, diarrhea, vomiting and decreased intake of food and fluids. At [facility] labs were significant for Na: [...] a diltiazem drip and transferred to the [facility] MICU for management of pneumonia complicated by septic shock, ARDS, metabolic acidosis, AF w/ RVR, SIRISHA, and volume overload.?? On presentation to [facility] he was on levophed and propofol. [...] - NPO 2/2 respiratory insufficiency, weakness per APPOINTMENT SCHEDULER with high risk of aspiration - PT/OT [...] - NPO 2/2 respiratory insufficiency, weakness per APPOINTMENT SCHEDULER with high risk of aspiration - continue multivitamin - nutrition consulted, appreciate recs - APPOINTMENT SCHEDULER consulted, appreciate recs #COPD per CT findings this admission. - Duonebs q6 PRN #Sacral deep tissue injury. Wound with white/yellow sloughing present. - Mepilex/dressing changes - air mattress with frequent position changes VTE Prophylaxis Lovenox Diet NPO, ok for ice chips Discharge Plan Uncertain at this time Consults APPOINTMENT SCHEDULER, OT, PT, Nutrition Admission Status Admitted to [...] medical [facility]. Per note from [facility], he presented on 03/15 after having 2 and half weeks of symptoms that started with fever and loss of appetite. The fever resolved after 1 week. He also reported weakness, fatigue,body aches, diarrhea, vomiting during that period. He had decreased food and fluid intake. The patient has not been seen by a doctor for about 10 years. On presentation to [facility] he was hemodynamically stable. Labs [...] and current smoker who was transferred from [facility] on 03/17 with rapid atrial fibrillation and acute hypoxic respiratory failure in the setting of fluid overload due to overresuscitation. He was intubated and sedated, and started on pressors on the drive to [facility]. Now admitted for septic shock and acute [...] 90 Patient with 6L fluid given at [facility], now with JVD and immobile [...] curve - Follow procalcitonin ENDO: Hyperglycemia - w8zkehl POC G checks - SSI GI: - No active issues - Diet: NPO for now, hold off on tube feeds for now H/O: #Leukocytosis In the setting of pneumonia - Monitor CBC NEURO/PSYCH: - Olanzapine 10mg IV now to reduce propofol dose (given refractory shock) - Olanzapine 10mg BID oral afterwards - Fentanyl prn - Acetaminophen 1000mg i0ydsww scheduled LINES: - CVC - A line - Park PPX: - GI - PPI - DVT - 5000mg x7kezoo Code status: Full code Yasmine Agyepong 03/17/2019 [...] hypoxia (HCC-CMS) 2. Atrial fibrillation with RVR ([facility]) Critical Care time was provided in the [...] Central Catheter Insertion First Catheter This Session animal nutrition teacher: [place] [facility] [place]: Insertion Date: 04/06/19 Insertion Time: 1515 [employer] Supervisor: Jose Kohler RN RN/MA Documenting Procedure: Manfred [...] Line Operators: Number Of Operators: 1 [employer] Supervisor's Name: Jose Kohler RN [employer] Supervisor's Title: Vascular high school math teacher Unless otherwise noted, there were no complications, [...] attestation - Marisol Castro MD - 03/28/2019 6077 EDT I was present for the entire procedure. Marisol Castro MD Acute Care Surgery Pager #[phone] 03/28/19 * Jose Kohler RN - 03/24/2019 5102 EDTAssociated Order(s): INSERT PICC LINE Central Catheter Insertion First Catheter This Session animal nutrition teacher: Patient Location: [facility] [place]/ Preliminary Data: Insertion Date: 03/24/19 Insertion Time: 1535 [employer] Supervisor: Jose Kohler RN RN/MA Documenting Procedure: Luis [...] Line Operators: Number Of Operators: 1 [employer] Supervisor's Name: Jose Kohler RN [employer] Supervisor's Title: Vascular high school math teacher Unless otherwise noted, there were no complications, no blood loss and no cultures obtained. Jose Kohler RN 03/24/2019 16:59 * Trina Drake RN - 03/23/2019 0928 EDTAssociated Order(s): INSERT PICC LINE Central Catheter Insertion First Catheter This Session animal nutrition teacher: Patient Location: [facility] [place] Preliminary Data: Insertion Date: 03/23/19 Insertion Time: 0840 [employer] Supervisor: Trina Drake RN RN/MA Documenting Procedure: Luis [...] Line Operators: Number Of Operators: 1 [employer] Supervisor's Name: Trina Drake RN [employer] Supervisor's Title: Vascular high school math teacher Unless otherwise noted, there were no complications, [...] Central Catheter Insertion First Catheter This Session animal nutrition teacher: Patient Location: 05/01 Preliminary Data: Insertion Date: 03/17/19 Insertion Time: 1023 [employer] Supervisor: Dr. Nguyen RN/MA Documenting Procedure: Meenakshi Moscoso [...] Line Operators: Number Of Operators: 3 [employer] Supervisor's Name: Kori Nguyen [employer] Supervisor's Title: Resident Train Planner's Name: Kathy Yu Train Planner's Title: Fellow [employer] Supervisor's Name: Leticia Galdamez [employer] Supervisor's Title: Attending Unless otherwise noted, there were no complications, no blood loss and no cultures obtained. Kori Nguyen MD 03/17/2019 12:58 Cosigned by Leticia Galdamez MD at 03/17/2019 14:53 EDT Associated attestation - Leticia Galdamez MD - 03/17/2019 3084 EDT Attending attestation: I was present during the entire procedure. I saw and examined the patient 03/17/2019. I agree with the findings and plan of care documented in the resident's/fellow's note. Leticia Galdamez MD 03/17/2019 14:52 documented in this encounter Consult Notes * Eladio Otero MD - 04/20/2019 0288 EDT Physiatry Progress Note Admit Date: 03/17/2019 [...] flush 10 mL intercatheter WEEKLY Wool Alcoh-Min Prk-Bjnsh-Emwmb (EUCERIN) cream topical PRN zinc sulfate (ZINCATE) [...] Noted ??? *(H)Acute respiratory failure with hypoxia ([facility]) 03/17/2019 Priority: Medium ??? (H)Upper gastrointestinal bleed 04/18/2019 Priority: Medium ??? (H)Septic shock ([facility]) 03/19/2019 Priority: Medium ??? (H)ARDS (adult respiratory distress syndrome) ([facility]) 03/19/2019 Priority: Medium ??? (H)SIRISHA (acute kidney injury) ([facility]) 03/19/2019 Priority: Medium ??? (H)Anemia 03/19/2019 Priority: Medium ??? (H)Thrombocytopenia ([facility]) 03/19/2019 Priority: Medium ??? (H)Bacteremia 03/19/2019 Priority: Medium ??? (H)Fever 03/19/2019 Priority: Medium ??? (H)Encephalopathy 03/19/2019 Priority: Medium ??? (H)Atrial fibrillation with RVR ([facility]) 03/17/2019 Priority: Medium Plan: 1. Debility: Secondary prolonged hospitalization and multiple medical comorbidities. Continue with PT, OT, and APPOINTMENT SCHEDULER for mobility, self care, respiratory status and [...] in some 10 years. He presented to [facility] on 03/17/2019 with approximately 2.5 weeks of fever, loss of appetite, weakness, fatigue and diarrhea. Work-up at [facility] revealed pneumonia/ARDS and renal failure, as well as atrial fibrillation with RVR. He was transferred to the [facility] on 03/17/2019 for acute hypoxic respiratory [...] developed hypoxia again, and was transferred back [facility] medical intensive care unit. He again was [...] evaluate for potential admission to inpatient rehabilitation. [facility] Past Medical History: Diagnosis Date ??? ARDS (adult respiratory distress syndrome) ([facility]) Past Surgical History: Procedure Laterality Date [...] two-story house. Her girlfriend lives across the [facility] and his girlfriend does not work. Family [...] Noted ??? *(H)Acute respiratory failure with hypoxia ([facility]) 03/17/2019 Priority: Medium ??? (H)Upper gastrointestinal bleed 04/18/2019 Priority: Medium ??? (H)Septic shock ([facility]) 03/19/2019 Priority: Medium ??? (H)ARDS (adult respiratory distress syndrome) ([facility]) 03/19/2019 Priority: Medium ??? (H)SIRISHA (acute kidney injury) ([facility]) 03/19/2019 Priority: Medium ??? (H)Anemia 03/19/2019 Priority: Medium ??? (H)Thrombocytopenia ([facility]) 03/19/2019 Priority: Medium ??? (H)Bacteremia 03/19/2019 Priority: Medium ??? (H)Fever 03/19/2019 Priority: Medium ??? (H)Encephalopathy 03/19/2019 Priority: Medium ??? (H)Atrial fibrillation with RVR ([facility]) 03/17/2019 Priority: Medium Assessment/Plan: 1. Debility: Secondary prolonged hospitalization and multiple medical comorbidities. Continue please consultations with PT, OT, and APPOINTMENT SCHEDULER to assess mobility, self care, respiratory status [...] with no known medical history presenting from [facility] on 03/17 with 2.5 weeks [...] with no known medical history presenting from [facility] on 03/17 with 2.5 weeks [...] with no known medical history presenting from [facility] on 03/17 with 2.5 weeks [...] Active Hospital Problems Diagnosis ??? Septic shock ([facility]) Priority: Medium ??? ARDS (adult respiratory distress syndrome) ([facility]) Priority: Medium ??? SIRISHA (acute kidney injury) ([facility]) Priority: Medium ??? Anemia Priority: Medium ??? Thrombocytopenia ([facility]) Priority: Medium ??? Bacteremia Priority: Medium ??? Fever Priority: Medium ??? Encephalopathy Priority: Medium ??? Atrial fibrillation with RVR ([facility]) Priority: Medium ??? Acute respiratory failure with hypoxia ([facility]) Priority: Medium Problems/Plan: -Low suspicion of mesenteric [...] to the ICU as a transfer from [facility] where he presented with a two-week history of fevers associated with myalgias. He was found to be in A. fib RVR and iagnosed with pneumonia subsequently intubated for acute hypoxic respiratory failure. Patient was transferred to [facility] on pressors for higher level of care. [...] file Gets together: Not on file Attends sabianist service: Not on file Active member of [...] who was admitted as a transfer from [facility] for acute hypoxic respiratory failure secondary to [...] and current smoker who was transferred from [facility] on 03/17 for management of atrial fibrillation [...] manage SIRISHA. Goal tubef feed will meet KENNEL OPERATOR for vitamin/minerals, therefore, add'l MVM is not [...] as indicated ?? Kathrine Dolan RD, CD [place] 4 Dietitian Pager: [phone] * Trey Tolentino MD, - 03/19/2019 0958 EDT Infectious Disease Inpatient Consultation Patient: Shirlene Bryan : 1955 Date of Admission: 03/17/2019 Date of Consultation: 03/19/19 Requested by: Leticia Galdamez MD Reason for Consultation: assistance in management of pneumonia, persistent fever History of Present Illness: This is a 64 y.o. gentleman who was transferred to the [facility] ICU on 03/17/2019 from [facility] where he presented 03/15 w/ pneumonia and developed respiratory failure. Per chart review Mr. Bryan complained of fever and other constitutional symptoms since ~2 weeks upon initial presentation. At [facility] a CT showed multifocal pneumonia and he was started on empiric coverage for CAP. His course as [facility] was complicated by rapid Afib, hemodynamic instability and subsequent intubation. At [facility] he has been on pip/tazo. His leukocytosis seems to have resolved but he is persistently febrile. His pressors have been weaned off. He remains on the ventilator. Review of Systems: Limited by patient's mental status Past Medical History: reviewed. No known medical history/chronic conditions Medications: reviewed w/ [facility] inpatient pharmacy. Anti-microbials: - ceftriaxone 03/15-03/17 - azithro 03/15-current - pip/tazo 03/17-current Allergies: reviewed. No known drug allergies. Social History: reviewed in chart and w/ ICU staff. Little known. Lives in [facility] w/ girlfriend. +tobacco Family History: Reviewed. [...] 03/15 plain film Micro: reviewed. Discussed w/ [facility]. - 03/15/19 two sets of blood cultures, 1 aerobic bottle coagulase positive staph, further workup pending - 03/17/19 MRSA nasal PCR negative - 03/17/19 urinary Pneumococcal and Legionella antigens negative - 03/18/19 sputum w/ few poly's and no org's on gram stain, culture nml OP constance Impression: 1. Staph aureus bacteremia, critically ill - 1 blood culture at [facility] (so far) w/ [facility]. Initially presumed contaminant given 1 of 4 bottles at3 days, but it's coag positive staph according to my conversation w/ [facility]'s lab today. Susceptibility pending. 2. [...] Attending * Viktoria Farr RN - 03/19/2019 0904 EDT Images from the original note were not included. 03/19: While on unit asked by bedside nurse to assess purple area on coccyx. Pt arrived on Tuesday morning from [facility] with a pink blanchable area on [...] Surgeon - Juan Omalley MD - 03/28/2019 1249 EDT PROCEDURE NOTE DATE OF SERVICE: 03/28/2019 PROCEDURE PERFORMED: Percutaneous dilational tracheostomy with bronchoscopy PRE-OPERATIVE DIAGNOSIS: Respiratory Failure POST-OPERATIVE DIAGNOSIS: same SURGEON: Marisol Castro MD COMPLIANCE VICE PRESIDENT(S): MD Noemi Choi [facility] COMPLICATIONS: None INDICATIONS: 64 y.o. male [...] Marisol Castro MD Acute Care Surgery Pager #[phone] 03/28/19 documented in this encounter Miscellaneous Notes * Daily Progress Note - Sheila Tapia - 04/23/2019 1311 EDT Nursing Discharge Note D: Patient noted with discharge orders to: Kalyani Laird via [facility]. A: Belongings collected and sent home with patient. Report provided to Kalyani Laird RN and [facility]. PICC line removed prior to discharge. R: Pt left via [facility] with belonings. Kalyani Laird RN verbalized [...] reports no pain at this time. DOMENICA LCUERO RN 04/20/2019 13:45 * Plan of Care - Shanon Carlton RN - 04/20/2019 0578 EDT Problem: Daily Care Plan Goals Goal: [...] Goal: Care Plan Documentation Flowsheets (Taken 04/18/2019 8030) Area of Focus: Mobility Goal This Shift: [...] Plan of Care - Lianne Mcgrath MS [facility]-APPOINTMENT SCHEDULER - 04/18/2019 0928 EDT Surgical Airway Weekly Rounds Note Date of Roundin04/18/2019 Shirlene Bryan is a 64 y.o. year old male Reason for admission:[id number] J18.9 Pneumonia, unspecified organism-J18.9[ICD-10-CM] Indication for Surgical [...] Checklist: Airway Alert sign is posted at [facility]?:Yes Surgical Airway Emergency Kit is in room? Yes Tracheostomy/Laryngectomy Education Brochure/Binder is in room?: No Sticky Note with Surgical Airway Treatment team updated? No Patient is currently on: MICU FYI tab has Surgical Airway information updates? No Team Input/Updates: RT: Downsized to [place] 7 and it is capped RN Lining Machine Tender: DIGITAL EXPERIENCE MANAGER (ENT): APPOINTMENT SCHEDULER: Rona Negron APPOINTMENT SCHEDULER - Dysphagia 3 diet, thin liquids, tube feeds overnight, has high nutrition needs due to skin and wound healing, vocal quality impacted due to air escape around trach site since downsize RN: MD: DOREEN/SW: ASSESSMENT: Shirlene Bryan is a 64 y.o. year old male, status post/admitted with [id number] J18.9 Pneumonia, unspecified organism-J18.9[ICD-10-CM] Multidisciplinary team assessment(s) regarding Surgical Airway re: Plan of Care RECOMMENDATIONS/PLAN: Surgical Airway Team will continue to Round weekly at a minimum regarding this patient's Plan of Care Progress toward decannulation Lianne Mcgrath, MS CCC-APPOINTMENT SCHEDULER Rona Negron, CCC-APPOINTMENT SCHEDULER Samantha Hamilton, RT Adrienne Garcia RN 04/18/2019 [...] wean, pt now has a tracheostomy. Data: Cattle Rancher assumed care for pt at 0700. On [...] RN at bedside, coccyx wound assessed with magnetic tape typewriter operator, wound care recommends topicalSanyl to help with [...] the floor, trasnferred to MICU. Report given. Carlitos Lu RN 04/13/2019 2:50 * Transfer Summary (Intrafacility) - Flex Flores MD - 04/13/2019 0234 EDT MICU Attending Admitting H+P Date of Service: 04/13/2019 Chief Complaint: Shirlene Bryan is a 64 y.o. male admitted critically ill to the MICU for acute on chronic hypoxic respiratory failure. LOS: 27 days . Hospital Course: Sihrlene Bryan is a 64 y.o male with no past medical history??(no PCP and does not see a doctor regularly) and current smoker??who presented to [facility] via [facility] for management of suspected pneumonia secondary to sepsis complicated by AF with RVR. Course furthermore complicated by ARDS requiring prolonged intubation. To [facility] was course complicated by acute GI [...] difficulties with breathing or chest pain. Noted jospeh febrile prior to transfer from the MICU on 04/12/19. [facility] PSH Past Medical History: Diagnosis Date ??? ARDS (adult respiratory distress syndrome) ([facility]) Past Surgical History: Procedure Laterality Date [...] 04/12/2019 for further management. Unfortunately on the personnel generalist manager of 04/13/2019 increasing supplemental oxygen requirements prompted [...] continue to monitor & notify team & foxer of changes or concerns. DAY CHRISTIANSON RN [...] auscultation. No tele monitoring at this time, QUANTITATIVE CONSULTANT beingmonitored. Patient NPO with TF running. Patient [...] monitor. DENISSE COX RN 04/11/2019 13:59 Addendum: APPOINTMENT SCHEDULER in to see patient this afternoon, see RT and APPOINTMENT SCHEDULER note * Plan of Care - Alcides, Lianne, MS [facility]-APPOINTMENT SCHEDULER - 04/11/2019 1042 EDT Surgical Airway Weekly Rounds Note Date of Roundin04/09/2019 Shirlene Bryan is a 64 y.o. year old male Reason for admission:ETOELO-FJJ-O5 J18.9 Pneumonia, unspecified organism-J18.9[ICD-10-CM] Indication for Surgical [...] Checklist: Airway Alert sign is posted at [facility]?:Yes Surgical Airway Emergency Kit is in room? Yes Tracheostomy/Laryngectomy Education Brochure/Binder is in room?: No Sticky Note with Surgical Airway Treatment team updated? No Patient is currently on: MICU FYI tab has Surgical Airway information updates? No Team Input/Updates: RT: Tolerating speaking valve well. Off vent for 24o. Will see how tolerates off vent RN Lining Machine Tender: DIGITAL EXPERIENCE MANAGER (ENT): APPOINTMENT SCHEDULER: Davida Randhawa APPOINTMENT SCHEDULER - Tolerate SPV trial on 04/10/19, wearing spv during day. Only assessed with icechips. NPO receiving nutrition via ng tube.? Assess with other po RN: MD: DOREEN/SW: ASSESSMENT: Shirlene Bryan is a 64 y.o. year old male, status post/admitted with [id number] J18.9 Pneumonia, unspecified organism-J18.9[ICD-10-CM] Multidisciplinary team assessment(s) [...] do well off of the vent. 2. APPOINTMENT SCHEDULER to assises swallowing for candidacy to resume po Sheela Agudelo, RT Lianne Mcgrath, MS CCC-APPOINTMENT SCHEDULER Samantha Hamilton, RT Dominga Marsh, DIGITAL EXPERIENCE MANAGER JORGE Valdivia MD Mindy Kilburn, RN 04/11/2019 Electronically signed by Lianne Mcgrath, MS [facility]-APPOINTMENT SCHEDULER at 04/11/2019 14:33 EDT * Plan of Care - Tyler Guy RN - 04/11/2019 0624 EDT Data: Report received, PT in bed in NAD. Action: Assess and treat hemodynamics and resp status as indicated. Monitor labs, UOP, skin condition, and neuro status, notify equipment operator warehouse with any significant changes. Promote patient comfort andsafety. Maintained on TC and speaking valve throughout this shift. Response: Pt has been safe * Plan of Care - Priyanka'Paul Otto RN - 04/10/2019 9034 EDT Data: Trach remains in place. Pt has a productive cough and is able to manage secretions w/ assistance of suctioning. Skin is severely compromised w/ known deep pressure injury on coccyx. Pt appears deconditioned and malnourished. Action: RT and APPOINTMENT SCHEDULER came to bedside this morning and placed [...] UOP, skin condition, and neuro status, notify equipment operator warehouse with any significant changes. Promote patient comfort [...] able to assistwith frequent turning, remains on citravia bed. No temperature elevations (100 degrees Farenheight [...] Care - Meenakshi Moscoso RN - 04/07/2019 0858 EDT Problem: Daily Care Plan Goals Goal: Care Plan Documentation 04/07/2019 580 by Meenakshi Moscoso RN Outcome: Ongoing 04/07/2019 [...] 64 y.o. year old male Reason for admission:[id number] J18.9 Pneumonia, unspecified organism-J18.9[ICD-10-CM] Indication for Surgical [...] Checklist: Airway Alert sign is posted at [facility]?:Yes Surgical Airway Emergency Kit is in room? Yes Tracheostomy/Laryngectomy Education Brochure/Binder is in room?: No Sticky Note with Surgical Airway Treatment team updated? No Patient is currently on: MICU FYI tab has Surgical Airway information updates? No Team Input/Updates: RT: Currently on trach collar trials day 2. RN Lining Machine Tender: DIGITAL EXPERIENCE MANAGER (ENT): APPOINTMENT SCHEDULER: Received Speaking valve consult. After tolerating trach collar for 3 consecutive day APPOINTMENT SCHEDULER will coordinate with RT to do speaking valve evaluation. RN: MD: DOREEN/SW: ASSESSMENT: Shirlene Bryan is a 64 y.o. year old male, status post/admitted with [id number] J18.9 Pneumonia, unspecified organism-J18.9[ICD-10-CM] Multidisciplinary team assessment(s) [...] this patient's Plan of Care Please order: APPOINTMENT SCHEDULER Speaking/Swallowing Valve Assessment with APPOINTMENT SCHEDULER and RT as patient is meeting criteria re: APPOINTMENT SCHEDULER/RT speaking/swallowing valve assessment RT Vanda Jesus 04/03/2019 [...] Care - Shelly Diallo RN - 04/03/2019 8315 EDT Problem: Daily Care Plan Goals Goal: [...] Care - Tawanna Garza RN - 04/03/2019 2849 EDT BP 132/70 Temp 36.8 ??C (98.2 [...] Note - Eden Ley, RT - 04/01/2019 5239 EDT Respiratory Progress Note Indications for Respiratory [...] Care - Bria Gamble RN - 04/01/2019 0306 EDT Problem: Daily Care Plan Goals Goal: [...] Back to 14 mcg/min, will CTM. Bria Gamble RN 03/31/2019 2:47 * Plan of Care - Prasad Pandey RN - 03/30/2019 1830 EDT Problem: Daily Care Plan Goals Goal: Care Plan Documentation Flowsheets (Taken 03/30/2019 0800) Goal This Shift: monitor tolerance to vent, titrate propofol & ketamine to comfort & safety, I&O Note: Data: Admitted for PNA & rapid a-fib with RVR from [facility]. Complicated with ARDS, ISRISHA, septic shock, GI bleed- hemorrhagic shock. Currently [...] VSS, NSR. Will continue to monitor. JAZMIN TSEINER RN 03/30/2019 6:40 * Daily Progress Note [...] two RN, RT, and transport escort from [id number]. Pttransported on sedation and ventilator. VS remained [...] 64 y.o. year old male Reason for admission:[id number] J18.9 Pneumonia, unspecified organism-J18.9[ICD-10-CM] Indication for Surgical [...] Checklist: Airway Alert sign is posted at [facility]?:Yes Surgical Airway Emergency Kit is in room? Yes Tracheostomy/Laryngectomy Education Brochure/Binder is in room?: No Sticky Note with Surgical Airway Treatment team updated? No Patient is currently on: MICU FYI tab has Surgical Airway information updates? No Team Input/Updates: RT: Trach was dilated and unsized for initially high cuff pressures of 100 cmH2o. RN Lining Machine Tender: DIGITAL EXPERIENCE MANAGER (ENT): APPOINTMENT SCHEDULER: RN: MD: DOREEN/SW: ASSESSMENT: Shirlene Bryan is a 64 y.o. year old male, status post/admitted with [id number] J18.9 Pneumonia, unspecified organism-J18.9[ICD-10-CM] Multidisciplinary team assessment(s) [...] of Care Sheela Agudelo RT Ilan Zamora APPOINTMENT SCHEDULER Adrienne Garcia RN 03/28/2019 * Brief Op Note - Juan Omalley MD - 03/28/2019 1239 EDT BRIEF OP NOTE Surgeon: Dr. Castro Packaging Mechanic: Kori Rice [facility] Pre-op diagnosis: Respiratory Failure Post-op diagnosis: [...] Care - Denisse Cox RN - 03/27/2019 7536 EDT Assumed care of patient at 0700. [...] Care - Tawanna Garza RN - 03/27/2019 4711 EDT BP 119/74 Temp 35.6 ??C (96.1 [...] Airway Outcome: Ongoing Data: Pt transferred from [facility] 8 days ago intubated hemodynamicly unstable [...] dx ARDS and PNA as xfer from [facility] on 03/17. Pt with MSSAbacteremia and GI [...] for critical value 2.9 with 2packets via [id number] and IV x3 bags this shift; lytes q6 monitoring. Continue to monitor. Baudilio Owens RN 03/24/2019 6:58 * Plan of Care - Tawanna Garza RN - 03/23/2019 0609 EDT BP 119/74 Temp 37.1 ??C (98.8 [...] 6:29 * Plan of Care - Shanna Fry RN - 03/22/2019 1716 EDT Data: Pt [...] 1048 EDT Data: Pt admitted yesterday from [facility] c a-fib RVR, ARDS/PNA c [...] 03/17/2019 1521 EDT Data: Pt transferred from [facility] this morning for rapid a-fib and [...] in the 60's. Dr. Kilgore called to [facility] and ordered Epi gtt which [...] 16:56 EDT Acute respiratory failure with hypoxia ([facility]) ELECTROLYTES Routine 03/24/2019 14:21 EDT GLUCOSE, GLUCOMETER [...] EDT) 04/30/2019 9:21 EDT us Scan 2 Assistant Operations Manager LAB INFO SERVICE AND SUPPOR T & PHONE RESULT Final Result * ECG REPORT - SCANNED (04/30/2019 9:21 EDT) 04/30/2019 9:21 EDT us Scan 2 Assistant Operations Manager PROCEDURE/MINOR SURGICAL OR DERABLES Final Result * ECG REPORT - SCANNED (04/30/2019 9:21 EDT) 04/30/2019 9:21 EDT us Scan 2 Assistant Operations Manager PROCEDURE/MINOR SURGICAL OR DERABLES Final Result * (ABNORMAL) PHOSPHORUS (04/22/2019 4:40 EDT) Phosphorus 4.7(H) 2.5 - 4.5 mg/dl 04/22/2019 5:20 EDT [facility] Blood specimen (specimen) BLOOD SPECIMEN / Unknown 04/22/2019 4:40 EDT 04/22/2019 4:46 EDT us Flex Flores MD CHEMISTRY & BLOOD GAS ORDERABLE S Final Result [facility] [address] [place] [address] * MAGNESIUM (04/22/2019 4:40 EDT) Magnesium 1.8 1.7 - 2.8 mg/dl 04/22/2019 5:20 EDT [facility] Blood specimen (specimen) BLOOD SPECIMEN / Unknown 04/22/2019 4:40 EDT 04/22/2019 4:46 EDT Flex Flores MD CHEMISTRY & BLOOD GAS ORDERABLE S Final Result Performing Organization Address [facility] Co de Phone Number [facility] [address] [place] [address] * (ABNORMAL) ELECTROLYTES (04/22/2019 4:40 EDT) Sodium 135(L) 136 - 145 mEq/L 04/22/2019 5:20 EDT [facility] Potassium 4.4 3.5 - 5.0 mEq/L 04/22/2019 5:20 EDT [facility] Chloride 105 96 - 110 mEq/L 04/22/2019 5:20 EDT [facility] CO2 23 22 - 32 mEq/L 04/22/2019 5:20 EDT [facility] Blood specimen (specimen) BLOOD SPECIMEN / Unknown 04/22/2019 4:40 EDT 04/22/2019 4:46 EDT Flex Flores MD CHEMISTRY & BLOOD GAS ORDERABLE S Final Result Performing Organization Address City/[facility] Co de Phone Number [facility] [address] [place] [address] * CREATININE (04/22/2019 4:40 EDT) Creatinine 0.75 0.66 - 1.25 mg/dl 04/22/2019 5:20 EDT [facility] GFR, Calculated 96 >60 ml/min/1.7 3m2 04/22/2019 5:20 EDT [facility] Comment: eGFR calculated using CKD-EPI equation for non Americans. Multiply eGFR by 1.16 for Americans. Blood specimen (specimen) BLOOD SPECIMEN / Unknown 04/22/2019 4:40 EDT 04/22/2019 4:46 EDT us Flex Flores MD CHEMISTRY & BLOOD GAS ORDERABLE S Final Result [facility] [address] [place] [address] * (ABNORMAL) COMPLETE BLOOD COUNT (04/22/2019 4:40 EDT) WBC 10.01 4.0 - 10.4 K/cmm 04/22/2019 4:58 [facility] RBC 2.95(L) 4.36 - 5.78 M/cmm 04/22/2019 4:58 [facility] Hemoglobin 8.3(L) 13.8 - 17.3 gm/dl 04/22/2019 4:58 [facility] HCT 26.3(L) 39.5 - 50.2 % 04/22/2019 4:58 [facility] MCV 89 81 - 95 fl 04/22/2019 4:58 [facility] MCH 28.1 27.6 - 33.0 pg 04/22/2019 4:58 [facility] MCHC 31.6(L) 32.8 - 36.4 gm/dl 04/22/2019 4:58 [facility] RDW-CV 17.1(H) <14.2 % 04/22/2019 4:58 [facility] RDW-SD 54.4(H) <46.0 fl 04/22/2019 4:58 [facility] Anisocytosis 1+ 04/22/2019 4:58 [facility] PLT 293 141 - 377 K/cmm 04/22/2019 4:58 [facility] MPV 10.7 9.5 - 12.7 fl 04/22/2019 4:58 [facility] Blood specimen (specimen) BLOOD SPECIMEN / Unknown 04/22/2019 4:40 EDT 04/22/2019 4:46 EDT us Flex Flores MD HEMATOLOGY & PF4 ORDERABLES Fin al Result Performing Organization Address City/[facility]/ZIP Co de Phone Number [facility] [address] [place] [address] * CALCIUM (04/22/2019 4:40 EDT) Calcium 8.8 8.5 - 10.5 mg/dl 04/22/2019 5:20 EDT [facility] Calculated Calcium 9.9 8.5 - 10.5 mg/dl 04/22/2019 5:20 EDT [facility] Blood specimen (specimen) BLOOD SPECIMEN / Unknown 04/22/2019 4:40 EDT 04/22/2019 4:46 EDT us Flex Flores MD CHEMISTRY & BLOOD GAS ORDERABLE S Final Result Performing Organization Address [facility]/ZIP Co de Phone Number [facility] [address] [place] [address] * PHOSPHORUS (04/20/2019 5:29 EDT) Phosphorus 3.8 2.5 - 4.5 mg/dl 04/20/2019 6:44 EDT [facility] Blood specimen (specimen) BLOOD SPECIMEN / Unknown 04/20/2019 5:29 EDT 04/20/2019 5:48 EDT us Flex Flores MD CHEMISTRY & BLOOD GAS ORDERABLE S Final Result Performing Organization Address City/[facility]/ZIP Co de Phone Number [facility] [address] [place] [address] * MAGNESIUM (04/20/2019 5:29 EDT) Magnesium 1.8 1.7 - 2.8 mg/dl 04/20/2019 6:44 EDT [facility] Blood specimen (specimen) BLOOD SPECIMEN / Unknown 04/20/2019 5:29 EDT 04/20/2019 5:48 EDT Flex Flores MD CHEMISTRY & BLOOD GAS ORDERABLE S Final Result Performing Organization Address [facility] de Phone Number [facility] [address] [place] [address] * ELECTROLYTES (04/20/2019 5:29 EDT) Sodium 136 136 - 145 mEq/L 04/20/2019 6:44 EDT [facility] Potassium 4.3 3.5 - 5.0 mEq/L 04/20/2019 6:44 EDT [facility] Chloride 104 96 - 110 mEq/L 04/20/2019 6:44 EDT [facility] CO2 26 22 - 32 mEq/L 04/20/2019 6:44 EDT [facility] Blood specimen (specimen) BLOOD SPECIMEN / Unknown 04/20/2019 5:29 EDT 04/20/2019 5:48 EDT us Flex Flores MD CHEMISTRY & BLOOD GAS ORDERABLE S Final Result Performing Organization Address [facility] de Phone Number [facility] [address] [place] [address] * (ABNORMAL) CREATININE (04/20/2019 5:29 EDT) Creatinine 0.63(L) 0.66 - 1.25 mg/dl 04/20/2019 6:44 EDT [facility] GFR, Calculated 103 >60 ml/min/1.7 3m2 04/20/2019 6:44 EDT [facility] Comment: eGFR calculated using CKD-EPI equation for non Americans. Multiply eGFR by 1.16 for Americans. Blood specimen (specimen) BLOOD SPECIMEN / Unknown 04/20/2019 5:29 EDT 04/20/2019 5:48 EDT us Flex Flores MD CHEMISTRY & BLOOD GAS ORDERABLE S Final Result Performing Organization Address [facility]/ZIP Co de Phone Number [facility] [address] [place] [address] * (ABNORMAL) COMPLETE BLOOD COUNT (04/20/2019 5:29 EDT) WBC 11.30(H) 4.0 - 10.4 K/cmm 04/20/2019 5:58 EDT [facility] RBC 2.78(L) 4.36 - 5.78 M/cmm 04/20/2019 5:58 EDT [facility] Hemoglobin 7.8(L) 13.8 - 17.3 gm/dl 04/20/2019 5:58 [facility] HCT 24.9(L) 39.5 - 50.2 % 04/20/2019 5:58 [facility] MCV 90 81 - 95 fl 04/20/2019 5:58 [facility] MCH 28.1 27.6 - 33.0 pg 04/20/2019 5:58 [facility] MCHC 31.3(L) 32.8 - 36.4 gm/dl 04/20/2019 5:58 [facility] RDW-CV 16.7(H) <14.2 % 04/20/2019 5:58 [facility] RDW-SD 54.2(H) <46.0 fl 04/20/2019 5:58 [facility] Anisocytosis 1+ 04/20/2019 5:58 [facility] PLT 278 141 - 377 K/cmm 04/20/2019 5:58 [facility] MPV 11.3 9.5 - 12.7 fl 04/20/2019 5:58 [facility] Blood specimen (specimen) BLOOD SPECIMEN / Unknown 04/20/2019 5:29 EDT 04/20/2019 5:48 EDT us Flex Flores MD HEMATOLOGY & PF4 ORDERABLES Fin al Result [facility] [address] [place] [address] * CALCIUM (04/20/2019 5:29 EDT) Calcium 8.6 8.5 - 10.5 mg/dl 04/20/2019 6:44 EDT [facility] Calculated Calcium 9.8 8.5 - 10.5 mg/dl 04/20/2019 6:44 EDT [facility] Blood specimen (specimen) BLOOD SPECIMEN / Unknown 04/20/2019 5:29 EDT 04/20/2019 5:48 EDT us Flex Flores MD CHEMISTRY & BLOOD GAS ORDERABLE S Final Result [facility] [address] [place] [address] * CHEST PA AND LATERAL (04/18/2019 9:20 [...] 2.5 - 4.5 mg/dl 04/18/2019 6:09 EDT [facility] Blood specimen (specimen) BLOOD SPECIMEN / Unknown 04/18/2019 5:31 EDT 04/18/2019 5:37 EDT Flex Flores MD CHEMISTRY & BLOOD GAS ORDERABLE S Final Result Performing Organization Address City/[facility]/ZIP Co de Phone Number [facility] [address] [place] [address] * MAGNESIUM (04/18/2019 5:31 EDT) Magnesium 1.9 1.7 - 2.8 mg/dl 04/18/2019 6:09 EDT [facility] Blood specimen (specimen) BLOOD SPECIMEN / Unknown 04/18/2019 5:31 EDT 04/18/2019 5:37 EDT us Flex Flores MD CHEMISTRY & BLOOD GAS ORDERABLE S Final Result Performing Organization Address [facility] Co de Phone Number [facility] [address] [place] [address] * ELECTROLYTES (04/18/2019 5:31 EDT) Sodium 136 136 - 145 mEq/L 04/18/2019 6:09 EDT [facility] Potassium 4.1 3.5 - 5.0 mEq/L 04/18/2019 6:09 EDT [facility] Chloride 104 96 - 110 mEq/L 04/18/2019 6:09 EDT [facility] CO2 27 22 - 32 mEq/L 04/18/2019 6:09 EDT [facility] Blood specimen (specimen) BLOOD SPECIMEN / Unknown 04/18/2019 5:31 EDT 04/18/2019 5:37 EDT us Flex Flores MD CHEMISTRY & BLOOD GAS ORDERABLE S Final Result Performing Organization Address [facility] Co de Phone Number [facility] [address] [place] [address] * CREATININE (04/18/2019 5:31 EDT) Creatinine 0.66 0.66 - 1.25 mg/dl 04/18/2019 6:09 EDT [facility] GFR, Calculated 101 >60 ml/min/1.7 3m2 04/18/2019 6:09 T [facility] Comment: eGFR calculated using CKD-EPI equation for non Americans. Multiply eGFR by 1.16 for Americans. Blood specimen (specimen) BLOOD SPECIMEN / Unknown 04/18/2019 5:31 EDT 04/18/2019 5:37 EDT us Flex Flores MD CHEMISTRY & BLOOD GAS ORDERABLE S Final Result [facility] [address] [place] [address] * (ABNORMAL) COMPLETE BLOOD COUNT (04/18/2019 5:31 EDT) WBC 11.97(H) 4.0 - 10.4 K/cmm 04/18/2019 5:53 [facility] RBC 2.72(L) 4.36 - 5.78 M/cmm 04/18/2019 5:53 [facility] Hemoglobin 7.8(L) 13.8 - 17.3 gm/dl 04/18/2019 5:53 [facility] HCT 24.7(L) 39.5 - 50.2 % 04/18/2019 5:53 [facility] MCV 91 81 - 95 fl 04/18/2019 5:53 [facility] MCH 28.7 27.6 - 33.0 pg 04/18/2019 5:53 [facility] MCHC 31.6(L) 32.8 - 36.4 gm/dl 04/18/2019 5:53 [facility] RDW-CV 16.3(H) <14.2 % 04/18/2019 5:53 [facility] RDW-SD 53.3(H) <46.0 fl 04/18/2019 5:53 [facility] PLT 263 141 - 377 K/cmm 04/18/2019 5:53 [facility] MPV 11.4 9.5 - 12.7 fl 04/18/2019 5:53 EDT [facility] Blood specimen (specimen) BLOOD SPECIMEN / Unknown 04/18/2019 5:31 EDT 04/18/2019 5:37 EDT Flex Flores MD HEMATOLOGY & PF4 ORDERABLES Fin al Result Performing Organization Address City/[facility]/ZIP Co de Phone Number [facility] [address] [place] [address] * (ABNORMAL) CALCIUM (04/18/2019 5:31 EDT) Calcium 8.3(L) 8.5 - 10.5 mg/dl 04/18/2019 6:09 EDT [facility] Calculated Calcium 9.6 8.5 - 10.5 mg/dl 04/18/2019 6:09 EDT [facility] Blood specimen (specimen) BLOOD SPECIMEN / Unknown 04/18/2019 5:31 EDT 04/18/2019 5:37 EDT Flex Flores MD CHEMISTRY & BLOOD GAS ORDERABLE S Final Result Performing Organization Address [facility] de Phone Number [facility] [address] [place] [address] * INPATIENT ADD-ON (04/16/2019 11:10 EDT) Tests to be added IRON, TOTAL IRON BINDING CAPACITY 04/16/2019 11:06 EDT [facility] Comment:FERRITIN Number for problems [id number] 04/16/2019 11:59 EDT [facility] Accession number [id number] 04/16/2019 11:59 EDT [facility] TOPOGRAPHY UNKNOWN / Unknown 04/16/2019 11:10 EDT 04/16/2019 11:58 EDT Jonatan Martinez MD HEMATOLOGY & PF4 ORDERABLES F inal Result Performing Organization Address City/[facility]/ZIP Co de Phone Number [facility] [address] [place] [address] * ECG REPORT - SCANNED (04/16/2019 8:29 EDT) 04/16/2019 8:29 EDT us Scan 2 Assistant Operations Manager PROCEDURE/MINOR SURGICAL OR DERABLES Final Result * (ABNORMAL) IRON (04/16/2019 5:02 EDT) Iron 15(L) 49 - 181 ug/dl 04/16/2019 12:25 EDT [facility] BLOOD SPECIMEN / Unknown 04/16/2019 5:02 EDT 04/16/2019 5:10 EDT us Flex Flores MD CHEMISTRY & BLOOD GAS ORDERABLE S Final Result Performing Organization Address [facility]/ZIP Co de Phone Number [facility] [address] [place] [address] * (ABNORMAL) IBC (04/16/2019 5:02 EDT) TIBC 188(L) 261 - 462 ug/dl 04/16/2019 12:32 EDT [facility] BLOOD SPECIMEN / Unknown 04/16/2019 5:02 EDT 04/16/2019 5:10 EDT us Flex Flores MD CHEMISTRY & BLOOD GAS ORDERABLE S Final Result [facility] [address] [place] [address] * (ABNORMAL) FERRITIN (04/16/2019 5:02 EDT) Ferritin 778(H) 22 - 322 ng/ml 04/16/2019 14:27 EDT [facility] BLOOD SPECIMEN / Unknown 04/16/2019 5:02 EDT 04/16/2019 5:10 EDT us Flex Flores MD CHEMISTRY & BLOOD GAS ORDERABLE S Final Result [facility] [address] [place] [address] * PHOSPHORUS (04/16/2019 5:02 EDT) Phosphorus 3.8 2.5 - 4.5 mg/dl 04/16/2019 6:14 EDT [facility] Blood specimen (specimen) BLOOD SPECIMEN / Unknown 04/16/2019 5:02 EDT 04/16/2019 5:10 EDT us Flex Flores MD CHEMISTRY & BLOOD GAS ORDERABLE S Final Result Performing Organization Address [facility] Co de Phone Number [facility] [address] [place] [address] * MAGNESIUM (04/16/2019 5:02 EDT) Magnesium 2.0 1.7 - 2.8 mg/dl 04/16/2019 6:14 EDT [facility] Blood specimen (specimen) BLOOD SPECIMEN / Unknown 04/16/2019 5:02 EDT 04/16/2019 5:10 EDT us Flex Flores MD CHEMISTRY & BLOOD GAS ORDERABLE S Final Result Performing Organization Address City/[facility] Co de Phone Number [facility] [address] [place] [address] * ELECTROLYTES (04/16/2019 5:02 EDT) Sodium 139 136 - 145 mEq/L 04/16/2019 6:14 EDT [facility] Potassium 4.0 3.5 - 5.0 mEq/L 04/16/2019 6:14 EDT [facility] Chloride 106 96 - 110 mEq/L 04/16/2019 6:14 EDT [facility] CO2 29 22 - 32 mEq/L 04/16/2019 6:14 EDT [facility] Blood specimen (specimen) BLOOD SPECIMEN / Unknown 04/16/2019 5:02 EDT 04/16/2019 5:10 EDT Flex Flores MD CHEMISTRY & BLOOD GAS ORDERABLE S Final Result Performing Organization Address [facility] Co de Phone Number [facility] [address] [place] [address] * (ABNORMAL) CREATININE (04/16/2019 5:02 EDT) Creatinine 0.63(L) 0.66 - 1.25 mg/dl 04/16/2019 6:14 EDT [facility] GFR, Calculated 103 >60 ml/min/1.7 3m2 04/16/2019 6:14 EDT [facility] [facility] Comment: eGFR calculated using CKD-EPI equation for non Americans. Multiply eGFR by 1.16 for Americans. Blood specimen (specimen) BLOOD SPECIMEN / Unknown 04/16/2019 5:02 EDT 04/16/2019 5:10 EDT Flex Flores MD CHEMISTRY & BLOOD GAS ORDERABLE S Final Result Performing Organization Address [facility] de Phone Number [facility] [address] [place] [address] * (ABNORMAL) COMPLETE BLOOD COUNT (04/16/2019 5:02 EDT) WBC 9.82 4.0 - 10.4 K/cmm 04/16/2019 5:24 [facility] RBC 2.67(L) 4.36 - 5.78 M/cmm 04/16/2019 5:24 [facility] Hemoglobin 7.6(L) 13.8 - 17.3 gm/dl 04/16/2019 5:24 [facility] HCT 24.5(L) 39.5 - 50.2 % 04/16/2019 5:24 [facility] MCV 92 81 - 95 fl 04/16/2019 5:24 [facility] MCH 28.5 27.6 - 33.0 pg 04/16/2019 5:24 [facility] MCHC 31.0(L) 32.8 - 36.4 gm/dl 04/16/2019 5:24 EDT [facility] RDW-CV 16.2(H) <14.2 % 04/16/2019 5:24 EDT [facility] RDW-SD 53.2(H) <46.0 fl 04/16/2019 5:24 EDT [facility] PLT 269 141 - 377 K/cmm 04/16/2019 5:24 EDT [facility] MPV 11.2 9.5 - 12.7 fl 04/16/2019 5:24 EDT [facility] Blood specimen (specimen) BLOOD SPECIMEN / Unknown 04/16/2019 5:02 EDT 04/16/2019 5:10 EDT Flex Flores MD HEMATOLOGY & PF4 ORDERABLES Fin al Result Performing Organization Address [facility] Co de Phone Number [facility] [address] [place] [address] * (ABNORMAL) CALCIUM (04/16/2019 5:02 EDT) Calcium 8.3(L) 8.5 - 10.5 mg/dl 04/16/2019 6:14 T [facility] Calculated Calcium 9.7 8.5 - 10.5 mg/dl 04/16/2019 6:14 EDT [facility] Blood specimen (specimen) BLOOD SPECIMEN / Unknown 04/16/2019 5:02 EDT 04/16/2019 5:10 EDT Flex Flores MD CHEMISTRY & BLOOD GAS ORDERABLE S Final Result Performing Organization Address City/[facility] Co de Phone Number [facility] [address] [place] [address] * PHOSPHORUS (04/14/2019 4:29 EDT) Phosphorus 4.1 2.5 - 4.5 mg/dl 04/14/2019 5:06 EDT [facility] Blood specimen (specimen) BLOOD SPECIMEN / Unknown 04/14/2019 4:29 EDT 04/14/2019 4:32 EDT us Flex Flores MD CHEMISTRY & BLOOD GAS ORDERABLE S Final Result Performing Organization Address [facility]/ZIP Co de Phone Number [facility] [address] [place] [address] * MAGNESIUM (04/14/2019 4:29 EDT) Magnesium 2.0 1.7 - 2.8 mg/dl 04/14/2019 5:06 EDT [facility] Blood specimen (specimen) BLOOD SPECIMEN / Unknown 04/14/2019 4:29 EDT 04/14/2019 4:32 EDT us Flex Flores MD CHEMISTRY & BLOOD GAS ORDERABLE S Final Result Performing Organization Address [facility] de Phone Number [facility] [address] [place] [address] * ELECTROLYTES (04/14/2019 4:29 EDT) Sodium 138 136 - 145 mEq/L 04/14/2019 5:06 EDT [facility] Potassium 4.1 3.5 - 5.0 mEq/L 04/14/2019 5:06 EDT [facility] Chloride 105 96 - 110 mEq/L 04/14/2019 5:06 EDT [facility] CO2 27 22 - 32 mEq/L 04/14/2019 5:06 EDT [facility] Blood specimen (specimen) BLOOD SPECIMEN / Unknown 04/14/2019 4:29 EDT 04/14/2019 4:32 EDT us Flex Flores MD CHEMISTRY & BLOOD GAS ORDERABLE S Final Result Performing Organization Address [facility] Co de Phone Number [facility] [address] [place] [address] * CREATININE (04/14/2019 4:29 EDT) Creatinine 0.72 0.66 - 1.25 mg/dl 04/14/2019 5:06 [facility] GFR, Calculated 98 >60 ml/min/1.7 3m2 04/14/2019 5:06 [facility] Comment: eGFR calculated using CKD-EPI equation for non Americans. Multiply eGFR by 1.16 for Americans. Blood specimen (specimen) BLOOD SPECIMEN / Unknown 04/14/2019 4:29 EDT 04/14/2019 4:32 EDT us Flex Flores MD CHEMISTRY & BLOOD GAS ORDERABLE S Final Result [facility] [address] [place] [address] * (ABNORMAL) COMPLETE BLOOD COUNT (04/14/2019 4:29 EDT) WBC 12.62(H) 4.0 - 10.4 K/cmm 04/14/2019 4:41 [facility] RBC 2.73(L) 4.36 - 5.78 M/cmm 04/14/2019 4:41 [facility] Hemoglobin 7.7(L) 13.8 - 17.3 gm/dl 04/14/2019 4:41 [facility] HCT 25.0(L) 39.5 - 50.2 % 04/14/2019 4:41 [facility] MCV 92 81 - 95 fl 04/14/2019 4:41 [facility] MCH 28.2 27.6 - 33.0 pg 04/14/2019 4:41 [facility] MCHC 30.8(L) 32.8 - 36.4 gm/dl 04/14/2019 4:41 [facility] RDW-CV 16.4(H) <14.2 % 04/14/2019 4:41 [facility] RDW-SD 54.3(H) <46.0 fl 04/14/2019 4:41 [facility] PLT 337 141 - 377 K/cmm 04/14/2019 4:41 EDT [facility] MPV 10.8 9.5 - 12.7 fl 04/14/2019 4:41 EDT [facility] Blood specimen (specimen) BLOOD SPECIMEN / Unknown 04/14/2019 4:29 EDT 04/14/2019 4:32 EDT Flex Flores MD HEMATOLOGY & PF4 ORDERABLES Fin al Result Performing Organization Address [facility] Co de Phone Number [facility] [address] [place] [address] * (ABNORMAL) CALCIUM (04/14/2019 4:29 EDT) Calcium 8.4(L) 8.5 - 10.5 mg/dl 04/14/2019 5:06 EDT [facility] Calculated Calcium 9.7 8.5 - 10.5 mg/dl 04/14/2019 5:06 EDT [facility] Blood specimen (specimen) BLOOD SPECIMEN / Unknown 04/14/2019 4:29 EDT 04/14/2019 4:32 EDT Flex Flores MD CHEMISTRY & BLOOD GAS ORDERABLE S Final Result Performing Organization Address [facility] de Phone Number [facility] [address] [place] [address] * PORTABLE CHEST 1 VIEW (04/13/2019 3:14 [...] with the tip not included in the [id number]. A left upper externally PICC terminates in [...] with the tip not included in the [id number]. A left upper externally PICC terminates in [...] held for 5 days. 04/13/2019 2:34 EDT [facility] BLOOD SPECIMEN / Unknown 04/13/2019 2:24 EDT 04/13/2019 2:34 EDT us Leticia Galdamez MD LAB INFO SERVICE AND SUPPORT & PHONE RESULT Final Result [facility] [address] [place] [address] * HOLD LAVENDER TOP (04/13/2019 2:24 EDT) Hold Purple Top EDTA for hematology will be discarded after 48 hours, differential not available after 12 hours. 04/13/2019 2:34 EDT [facility] BLOOD SPECIMEN / Unknown 04/13/2019 2:24 EDT 04/13/2019 2:34 EDT us Leticia Galdamez MD LAB INFO SERVICE AND SUPPORT & PHONE RESULT Final Result Performing Organization Address [facility] Co de Phone Number [facility] [address] [place] [address] * HOLD GREEN TOP (04/13/2019 2:24 EDT) Hold Green Top Hold for further testing. Specimen will be held for 5 days. 04/13/2019 2:34 EDT [facility] BLOOD SPECIMEN / Unknown 04/13/2019 2:24 EDT 04/13/2019 2:34 EDT us Leticia Galdamez MD LAB INFO SERVICE AND SUPPORT & PHONE RESULT Final Result Performing Organization Address City/[facility]/ZIP Co de Phone Number [facility] [address] [place] [address] * HOLD BLUE TOP (04/13/2019 2:24 EDT) Hold Blue Top Sample for coagulation will be discarded after 4 hours 04/13/2019 3:16 EDT [facility] BLOOD SPECIMEN / Unknown 04/13/2019 2:24 EDT 04/13/2019 2:34 EDT us Leticia Galdamez MD LAB INFO SERVICE AND SUPPORT & PHONE RESULT Final Result [facility] [address] [place] [address] * (ABNORMAL) BLOOD GAS, G3 ISTAT (04/13/2019 2:00 EDT) pH, i-STAT 7.47(H) 7.35 - 7.45 04/13/2019 2:05 EDT [facility] pCO2, i-STAT 32(L) 35 - 45 mmHg 04/13/2019 2:05 EDT [facility] pO2, i-STAT 49(L) 80 - 105 mmHg 04/13/2019 2:05 EDT [facility] TCO2, i-STAT 24 23 - 27 mEq/L 04/13/2019 2:05 EDT [facility] O2 Saturation 87(L) 95 - 98 % 04/13/2019 2:05 EDT [facility] Base Excess, i-STAT 0 04/13/2019 2:05 EDT [facility] Sample Type ARTERIAL 04/13/2019 2:05 EDT [facility] fish technologist ID [id number] 04/13/2019 2:05 EDT [facility] Comment: Test Performed by Respiratory For non-arterial reference ranges, please see ISTAT procedure. BLOOD SPECIMEN / Unknown 04/13/2019 2:00 EDT 04/13/2019 2:05 EDT us Leticia Galdamez MD CHEMISTRY & BLOOD GAS ORDERAB LES Final Result [facility] [address] [place] [address] * BACTERIAL CULTURE/SMEAR, RESPIRATORY (04/13/2019 0:40 EDT) Gram Smear Result Many Polys 04/13/2019 9:16 EDT [facility] Gram Smear Result Mod Squamous epithelial cells 04/13/2019 9:16 EDT [facility] Gram Smear Result Mod Mixed gram positive and gram negative organisms 04/13/2019 9:16 EDT [facility] Gram Smear Result Smear suggests contamination with saliva. ??Please submit additional specimen if clinically indicated. 04/13/2019 9:16 EDT [facility] Result See gram smear results. Credit Issued 04/13/2019 9:16 EDT [facility] Specimen of unknown material (specimen) SPECIMEN FROM [facility] OBTAINED BY ASPIRATION / Unknown 04/13/2019 0:40 EDT 04/13/2019 7:20 EDT Comment:Leuken's specimen us Katja Pierson MD MICROBIOLOGY - GENE RAL ORDERABLES Final Result [facility] [address] [place] [address] * BACTERIAL CULTURE, BLOOD (04/12/2019 19:37 EDT) Result No growth 04/17/2019 7:54 EDT [facility] Blood specimen (specimen) BLOOD SPECIMEN / Unknown 04/12/2019 19:37 EDT 04/12/2019 20:30 EDT Comment:Right~Antecubital us Shelly Guzman MD MICROBIOLOGY - GENERAL ORDERABL ES Final Result Performing Organization Address [facility]/ZIP Co de Phone Number [facility] [address] [place] [address] * BACTERIAL CULTURE, BLOOD (04/12/2019 18:35 EDT) Result No growth 04/17/2019 7:54 EDT [facility] Blood specimen (specimen) BLOOD SPECIMEN / Unknown 04/12/2019 18:35 EDT 04/12/2019 20:30 EDT Comment:Draw site not indica mega. us Shelly Guzman MD MICROBIOLOGY - GENERAL ORDERABL ES Final Result Performing Organization Address City/[facility] Co de Phone Number [facility] [address] [place] [address] * PHOSPHORUS (04/12/2019 4:48 EDT) Phosphorus 3.9 2.5 - 4.5 mg/dl 04/12/2019 5:38 EDT [facility] Blood specimen (specimen) BLOOD SPECIMEN / Unknown 04/12/2019 4:48 EDT 04/12/2019 4:57 EDT Flex Flores MD CHEMISTRY & BLOOD GAS ORDERABLE S Final Result Performing Organization Address [facility]/ZIP Co de Phone Number [facility] [address] [place] [address] * MAGNESIUM (04/12/2019 4:48 EDT) Magnesium 2.0 1.7 - 2.8 mg/dl 04/12/2019 5:38 EDT [facility] Blood specimen (specimen) BLOOD SPECIMEN / Unknown 04/12/2019 4:48 EDT 04/12/2019 4:57 EDT us Flex Flores MD CHEMISTRY & BLOOD GAS ORDERABLE S Final Result Performing Organization Address [facility] de Phone Number [facility] [address] [place] [address] * ELECTROLYTES (04/12/2019 4:48 EDT) Sodium 137 136 - 145 mEq/L 04/12/2019 5:38 EDT [facility] Potassium 4.2 3.5 - 5.0 mEq/L 04/12/2019 5:38 EDT [facility] Chloride 104 96 - 110 mEq/L 04/12/2019 5:38 EDT [facility] CO2 26 22 - 32 mEq/L 04/12/2019 5:38 EDT [facility] Blood specimen (specimen) BLOOD SPECIMEN / Unknown 04/12/2019 4:48 EDT 04/12/2019 4:57 EDT us Flex Flores MD CHEMISTRY & BLOOD GAS ORDERABLE S Final Result Performing Organization Address [facility] Co de Phone Number [facility] [address] [place] [address] * CREATININE (04/12/2019 4:48 EDT) Creatinine 0.70 0.66 - 1.25 mg/dl 04/12/2019 5:38 [facility] GFR, Calculated 99 >60 ml/min/1.7 3m2 04/12/2019 5:38 [facility] Comment: eGFR calculated using CKD-EPI equation for non Americans. Multiply eGFR by 1.16 for Americans. Blood specimen (specimen) BLOOD SPECIMEN / Unknown 04/12/2019 4:48 EDT 04/12/2019 4:57 EDT us Flex Flores MD CHEMISTRY & BLOOD GAS ORDERABLE S Final Result [facility] [address] [place] [address] * (ABNORMAL) COMPLETE BLOOD COUNT (04/12/2019 4:48 EDT) WBC 8.73 4.0 - 10.4 K/cmm 04/12/2019 5:16 [facility] RBC 2.76(L) 4.36 - 5.78 M/cmm 04/12/2019 5:16 [facility] Hemoglobin 8.1(L) 13.8 - 17.3 gm/dl 04/12/2019 5:16 [facility] HCT 25.1(L) 39.5 - 50.2 % 04/12/2019 5:16 [facility] MCV 91 81 - 95 fl 04/12/2019 5:16 [facility] MCH 29.3 27.6 - 33.0 pg 04/12/2019 5:16 [facility] MCHC 32.3(L) 32.8 - 36.4 gm/dl 04/12/2019 5:16 [facility] RDW-CV 16.3(H) <14.2 % 04/12/2019 5:16 [facility] RDW-SD 53.0(H) <46.0 fl 04/12/2019 5:16 [facility] PLT 433(H) 141 - 377 K/cmm 04/12/2019 5:16 EDT [facility] MPV 10.8 9.5 - 12.7 fl 04/12/2019 5:16 EDT [facility] Blood specimen (specimen) BLOOD SPECIMEN / Unknown 04/12/2019 4:48 EDT 04/12/2019 4:57 EDT us Flex Flores MD HEMATOLOGY & PF4 ORDERABLES Fin al Result Performing Organization Address City/[facility]/ZIP Co de Phone Number [facility] [address] [place] [address] * (ABNORMAL) CALCIUM (04/12/2019 4:48 EDT) Calcium 8.3(L) 8.5 - 10.5 mg/dl 04/12/2019 5:38 EDT [facility] Calculated Calcium 9.6 8.5 - 10.5 mg/dl 04/12/2019 5:38 EDT [facility] Blood specimen (specimen) BLOOD SPECIMEN / Unknown 04/12/2019 4:48 EDT 04/12/2019 4:57 EDT us Flex Flores MD CHEMISTRY & BLOOD GAS ORDERABLE S Final Result Performing Organization Address [facility] Co de Phone Number [facility] [address] [place] [address] * MRSA PCR (04/10/2019 9:31 EDT) Result No Staphylococcus aureus detected by PCR. 04/10/2019 16:52 EDT [facility] Specimen of unknown material (specimen) NASAL ROUTE / Unknown 04/10/2019 9:31 EDT 04/10/2019 11:19 EDT us Kori Nguyen MD MICROBIOLOGY - GENERAL OR DERABLES Final Result Performing Organization Address City/[facility]/ZIP Co de Phone Number [facility] [address] [place] [address] * (ABNORMAL) COMPLETE BLOOD COUNT (04/10/2019 4:04 EDT) WBC 7.52 4.0 - 10.4 K/cmm 04/10/2019 4:28 [facility] RBC 2.80(L) 4.36 - 5.78 M/cmm 04/10/2019 4:28 [facility] Hemoglobin 8.3(L) 13.8 - 17.3 gm/dl 04/10/2019 4:28 [facility] HCT 25.4(L) 39.5 - 50.2 % 04/10/2019 4:28 [facility] MCV 91 81 - 95 fl 04/10/2019 4:28 [facility] MCH 29.6 27.6 - 33.0 pg 04/10/2019 4:28 [facility] MCHC 32.7(L) 32.8 - 36.4 gm/dl 04/10/2019 4:28 [facility] RDW-CV 16.4(H) <14.2 % 04/10/2019 4:28 [facility] RDW-SD 53.7(H) <46.0 fl 04/10/2019 4:28 [facility] PLT 505(H) 141 - 377 K/cmm 04/10/2019 4:28 [facility] MPV 10.7 9.5 - 12.7 fl 04/10/2019 4:28 [facility] Blood specimen (specimen) BLOOD SPECIMEN / Unknown 04/10/2019 4:04 EDT 04/10/2019 4:18 EDT us Charo Frank MD HEMATOLOGY & PF4 ORDERABLES Final Result [facility] [address] [place] [address] * ELECTROLYTES (04/10/2019 4:04 EDT) Sodium 136 136 - 145 mEq/L 04/10/2019 4:35 EDT [facility] Potassium 4.2 3.5 - 5.0 mEq/L 04/10/2019 4:35 EDT [facility] Chloride 105 96 - 110 mEq/L 04/10/2019 4:35 EDT [facility] CO2 25 22 - 32 mEq/L 04/10/2019 4:35 EDT [facility] Blood specimen (specimen) BLOOD SPECIMEN / Unknown 04/10/2019 4:04 EDT 04/10/2019 4:18 EDT us Jonatan Martinez MD CHEMISTRY & BLOOD GAS ORDERAB LES Final Result Performing Organization Address [facility]/ZIP Co de Phone Number [facility] [address] [place] [address] * MAGNESIUM (04/10/2019 4:04 EDT) Magnesium 2.0 1.7 - 2.8 mg/dl 04/10/2019 4:35 EDT [facility] Blood specimen (specimen) BLOOD SPECIMEN / Unknown 04/10/2019 4:04 EDT 04/10/2019 4:18 EDT us Kori Nguyen MD CHEMISTRY & BLOOD GAS ORD ERABLES Final Result Performing Organization Address [facility] Co de Phone Number [facility] [address] [place] [address] * (ABNORMAL) CALCIUM (04/10/2019 4:04 EDT) Calcium 8.1(L) 8.5 - 10.5 mg/dl 04/10/2019 4:35 EDT [facility] Calculated Calcium 9.4 8.5 - 10.5 mg/dl 04/10/2019 4:35 EDT [facility] Blood specimen (specimen) BLOOD SPECIMEN / Unknown 04/10/2019 4:04 EDT 04/10/2019 4:18 EDT us Kori Nguyen MD CHEMISTRY & BLOOD GAS ORD ERABLES Final Result Performing Organization Address City/[facility]/ZIP Co de Phone Number [facility] [address] [place] [address] * PHOSPHORUS (04/10/2019 4:04 EDT) Phosphorus 3.8 2.5 - 4.5 mg/dl 04/10/2019 4:35 EDT [facility] Blood specimen (specimen) BLOOD SPECIMEN / Unknown 04/10/2019 4:04 EDT 04/10/2019 4:18 EDT us Kori Nguyen MD CHEMISTRY & BLOOD GAS ORD ERABLES Final Result Performing Organization Address [facility] Co de Phone Number [facility] [address] [place] [address] * CREATININE (04/10/2019 4:04 EDT) Pathologist [facility] Creatinine 0.73 0.66 - 1.25 mg/dl 04/10/2019 4:35 EDT [facility] GFR, Calculated 97 >60 ml/min/1.7 3m2 04/10/2019 4:35 EDT [facility] Comment: eGFR calculated using CKD-EPI equation for non Americans. Multiply eGFR by 1.16 for Americans. Blood specimen (specimen) BLOOD SPECIMEN / Unknown 04/10/2019 4:04 EDT 04/10/2019 4:18 EDT us Kori Nguyen MD CHEMISTRY & BLOOD GAS ORD ERABLES Final Result Performing Organization Address City/[facility]/ZIP Co de Phone Number [facility] [address] [place] [address] * (ABNORMAL) COMPLETE BLOOD COUNT (04/09/2019 4:21 EDT) WBC 6.09 4.0 - 10.4 K/cmm 04/09/2019 4:35 EDT [facility] RBC 2.72(L) 4.36 - 5.78 M/cmm 04/09/2019 4:35 [facility] Hemoglobin 8.1(L) 13.8 - 17.3 gm/dl 04/09/2019 4:35 [facility] HCT 24.8(L) 39.5 - 50.2 % 04/09/2019 4:35 [facility] MCV 91 81 - 95 fl 04/09/2019 4:35 [facility] MCH 29.8 27.6 - 33.0 pg 04/09/2019 4:35 [facility] MCHC 32.7(L) 32.8 - 36.4 gm/dl 04/09/2019 4:35 [facility] RDW-CV 16.7(H) <14.2 % 04/09/2019 4:35 [facility] RDW-SD 54.3(H) <46.0 fl 04/09/2019 4:35 [facility] Anisocytosis 1+ 04/09/2019 4:35 [facility] PLT 439(H) 141 - 377 K/cmm 04/09/2019 4:35 [facility] MPV 11.0 9.5 - 12.7 fl 04/09/2019 4:35 [facility] Blood specimen (specimen) BLOOD SPECIMEN / Unknown 04/09/2019 4:21 EDT 04/09/2019 4:24 EDT Charo Frank MD HEMATOLOGY & PF4 ORDERABLES Final Result [facility] [address] [place] [address] * ELECTROLYTES (04/09/2019 4:21 EDT) Sodium 137 136 - 145 mEq/L 04/09/2019 5:16 [facility] Potassium 4.1 3.5 - 5.0 mEq/L 04/09/2019 5:16 [facility] Chloride 106 96 - 110 mEq/L 04/09/2019 5:16 [facility] CO2 24 22 - 32 mEq/L 04/09/2019 5:16 EDT [facility] Blood specimen (specimen) BLOOD SPECIMEN / Unknown 04/09/2019 4:21 EDT 04/09/2019 4:24 EDT us Jonatan Martinez MD CHEMISTRY & BLOOD GAS ORDERAB LES Final Result Performing Organization Address [facility]/ZIP Co de Phone Number [facility] [address] [place] [address] * MAGNESIUM (04/09/2019 4:21 EDT) Magnesium 1.9 1.7 - 2.8 mg/dl 04/09/2019 5:16 EDT [facility] Blood specimen (specimen) BLOOD SPECIMEN / Unknown 04/09/2019 4:21 EDT 04/09/2019 4:24 EDT Kori Nguyen MD CHEMISTRY & BLOOD GAS ORD ERABLES Final Result Performing Organization Address [facility]/ZIP Co de Phone Number [facility] LAB[facility]ATORY [facility] [address] [place] [address] * (ABNORMAL) CALCIUM (04/09/2019 4:21 EDT) Calcium 7.7(L) 8.5 - 10.5 mg/dl 04/09/2019 5:16 EDT [facility] Calculated Calcium 9.1 8.5 - 10.5 mg/dl 04/09/2019 5:16 EDT [facility] Blood specimen (specimen) BLOOD SPECIMEN / Unknown 04/09/2019 4:21 EDT 04/09/2019 4:24 EDT Kori Nguyen MD CHEMISTRY & BLOOD GAS ORD ERABLES Final Result Performing Organization Address City/[facility]/ZIP Co de Phone Number [facility] [address] [place] [address] * PHOSPHORUS (04/09/2019 4:21 EDT) Phosphorus 3.9 2.5 - 4.5 mg/dl 04/09/2019 5:16 EDT [facility] Blood specimen (specimen) BLOOD SPECIMEN / Unknown 04/09/2019 4:21 EDT 04/09/2019 4:24 EDT us Kori Nguyen MD CHEMISTRY & BLOOD GAS ORD ERABLES Final Result Performing Organization Address [facility] Co de Phone Number [facility] [address] [place] [address] * CREATININE (04/09/2019 4:21 EDT) Creatinine 0.66 0.66 - 1.25 mg/dl 04/09/2019 5:16 EDT [facility] GFR, Calculated 101 >60 ml/min/1.7 3m2 04/09/2019 5:16 EDT [facility] Comment: eGFR calculated using CKD-EPI equation for non Americans. Multiply eGFR by 1.16 for Americans. Blood specimen (specimen) BLOOD SPECIMEN / Unknown 04/09/2019 4:21 EDT 04/09/2019 4:24 EDT us Kori Nguyen MD CHEMISTRY & BLOOD GAS ORD ERABLES Final Result Performing Organization Address [facility] Co de Phone Number [facility] [address] [place] [address] * BACTERIAL CULTURE, URINE (04/08/2019 20:41 EDT) Result Less than 10,000 CFU/ml Usual urogenital constance. 04/10/2019 8:15 EDT [facility] URINE / Unknown 04/08/2019 2 0:41 EDT 04/08/2019 20:57 EDT us Leticia Galdamez MD MICROBIOLOGY - GENERAL ORDERA BLES Final Result Performing Organization Address [facility] Co de Phone Number [facility] [address] [place] [address] * (ABNORMAL) UA CHEMICAL (DIPSTICK ONLY) (04/08/2019 20:41 EDT) Color, UA Yellow 04/08/2019 20:55 [facility] Clarity, UA Clear 04/08/2019 20:55 [facility] Glucose, UA Neg Neg 04/08/2019 20:55 [facility] Bilirubin, UA Neg Neg 04/08/2019 20:55 [facility] Ketones, UA Neg Neg 04/08/2019 20:55 [facility] Refractometer SG,Urine 1.023 1.001 - 1.035 04/08/2019 20:55 [facility] Blood, UA Trace(A) Neg 04/08/2019 20:55 [facility] pH, UA 6.5 4.6 - 8.0 04/08/2019 20:55 [facility] Protein, UA 1+(A) Neg 04/08/2019 20:55 [facility] Urobilinogen, UA Normal Normal E.U./dl 04/08/2019 20:55 [facility] Nitrite, UA Neg Neg 04/08/2019 20:55 [facility] Leuk Esterase Trace(A) Neg 04/08/2019 20:55 [facility] UA Method Used 04/08/2019 20:48 [facility] Comment: Testing performed using [employer] Series. URINE / Unknown 04/08/2019 2 0:41 EDT 04/08/2019 20:47 EDT us Ayaan SMITH URINALYSIS ORDERABLES Final R esult [facility] [address] [place] [address] * URINE CULTURE IF POSITIVE (04/08/2019 20:41 EDT) Culture if Indicated Culture indicated by urinalysis results. 04/08/2019 20:55 [facility] Urine specimen (specimen) TOPOGRAPHY UNKNOWN / Unknown 04/08/2019 20:41 EDT 04/08/2019 20:47 EDT Ayaan SMITH MICROBIOLOGY - GENERAL ORDERA BLES Final Result [facility] [address] [place] [address] * PORTABLE CHEST 1 VIEW (04/08/2019 19:21 [...] EDT) Result No growth 04/13/2019 6:44 EDT [facility] Blood specimen (specimen) BLOOD SPECIMEN / Unknown 04/08/2019 19:17 EDT 04/08/2019 20:18 EDT Comment:Left~PICC Ayaan SMITH MICROBIOLOGY - GENERAL ORDERA BLES Final Result Performing Organization Address [facility]/ZIP Co de Phone Number [facility] [address] [place] [address] * BACTERIAL CULTURE, BLOOD (04/08/2019 19:04 EDT) Result No growth 04/13/2019 6:44 EDT [facility] Blood specimen (specimen) BLOOD SPECIMEN / Unknown 04/08/2019 19:04 EDT 04/08/2019 19:34 EDT Comment:Right~Hand~AEROBIC B LOOD CULTURE BOTTLE Ayaan SMITH MICROBIOLOGY - GENERAL ORDERA BLES Final Result Performing Organization Address City/[facility]/ZIP Co de Phone Number [facility] [address] [place] [address] * BACTERIAL CULTURE, BLOOD (04/08/2019 18:59 EDT) Result No growth 04/13/2019 6:44 EDT [facility] Blood specimen (specimen) BLOOD SPECIMEN / Unknown 04/08/2019 18:59 EDT 04/08/2019 19:34 EDT Comment:Left~FOREARM us Ayaan Mak MBBS MICROBIOLOGY - GENERAL ORDERA BLES Final Result [facility] [address] [place] [address] * (ABNORMAL) COMPLETE BLOOD COUNT (04/08/2019 5:28 EDT) WBC 5.57 4.0 - 10.4 K/cmm 04/08/2019 5:54 EDT [facility] RBC 2.77(L) 4.36 - 5.78 M/cmm 04/08/2019 5:54 EDT [facility] Hemoglobin 8.1(L) 13.8 - 17.3 gm/dl 04/08/2019 5:54 T [facility] HCT 25.4(L) 39.5 - 50.2 % 04/08/2019 5:54 [facility] MCV 92 81 - 95 fl 04/08/2019 5:54 T [facility] MCH 29.2 27.6 - 33.0 pg 04/08/2019 5:54 EDT [facility] MCHC 31.9(L) 32.8 - 36.4 gm/dl 04/08/2019 5:54 T [facility] RDW-CV 17.2(H) <14.2 % 04/08/2019 5:54 [facility] RDW-SD 56.7(H) <46.0 fl 04/08/2019 5:54 [facility] Anisocytosis 1+ 04/08/2019 5:54 T [facility] PLT 423(H) 141 - 377 K/cmm 04/08/2019 5:54 T [facility] MPV 11.1 9.5 - 12.7 fl 04/08/2019 5:54 [facility] Blood specimen (specimen) BLOOD SPECIMEN / Unknown 04/08/2019 5:28 EDT 04/08/2019 5:47 EDT Charo Frank MD HEMATOLOGY & PF4 ORDERABLES Final Result [facility] [address] [place] [address] * ELECTROLYTES (04/08/2019 5:28 EDT) Sodium 136 136 - 145 mEq/L 04/08/2019 6:40 EDT [facility] Potassium 4.2 3.5 - 5.0 mEq/L 04/08/2019 6:40 EDT [facility] Chloride 105 96 - 110 mEq/L 04/08/2019 6:40 EDT [facility] CO2 24 22 - 32 mEq/L 04/08/2019 6:40 EDT [facility] Blood specimen (specimen) BLOOD SPECIMEN / Unknown 04/08/2019 5:28 EDT 04/08/2019 5:47 EDT us Jonatan Martinez MD CHEMISTRY & BLOOD GAS ORDERAB LES Final Result Performing Organization Address [facility]/ZIP Co de Phone Number [facility] [address] [place] [address] * MAGNESIUM (04/08/2019 5:28 EDT) Pathologist [facility] Magnesium 1.9 1.7 - 2.8 mg/dl 04/08/2019 6:40 EDT [facility] Blood specimen (specimen) BLOOD SPECIMEN / Unknown 04/08/2019 5:28 EDT 04/08/2019 5:47 EDT us Kori Nguyen MD CHEMISTRY & BLOOD GAS ORD ERABLES Final Result [facility] [address] [place] [address] * (ABNORMAL) CALCIUM (04/08/2019 5:28 EDT) Calcium 8.0(L) 8.5 - 10.5 mg/dl 04/08/2019 6:40 EDT [facility] Calculated Calcium 9.4 8.5 - 10.5 mg/dl 04/08/2019 6:40 EDT [facility] Blood specimen (specimen) BLOOD SPECIMEN / Unknown 04/08/2019 5:28 EDT 04/08/2019 5:47 EDT us Kori Nguyen MD CHEMISTRY & BLOOD GAS ORD ERABLES Final Result Performing Organization Address [facility]/ZIP Co de Phone Number [facility] [address] [place] [address] * PHOSPHORUS (04/08/2019 5:28 EDT) Phosphorus 3.5 2.5 - 4.5 mg/dl 04/08/2019 6:40 EDT [facility] Blood specimen (specimen) BLOOD SPECIMEN / Unknown 04/08/2019 5:28 EDT 04/08/2019 5:47 EDT us Kori Nguyen MD CHEMISTRY & BLOOD GAS ORD ERABLES Final Result Performing Organization Address [facility] Co de Phone Number [facility] [address] [place] [address] * CREATININE (04/08/2019 5:28 EDT) Creatinine 0.73 0.66 - 1.25 mg/dl 04/08/2019 6:40 EDT [facility] GFR, Calculated 97 >60 ml/min/1.7 3m2 04/08/2019 6:40 EDT [facility] Comment: eGFR calculated using CKD-EPI equation for non Americans. Multiply eGFR by 1.16 for Americans. Blood specimen (specimen) BLOOD SPECIMEN / Unknown 04/08/2019 5:28 EDT 04/08/2019 5:47 EDT us Kori Nguyen MD CHEMISTRY & BLOOD GAS ORD ERABLES Final Result Performing Organization Address City/[facility]/ZIP Co de Phone Number [facility] [address] [place] [address] * (ABNORMAL) GLUCOSE, GLUCOMETER (04/07/2019 11:20 EDT) Glucose, Fingerstick 126(H) 70 - 100 mg/dl 04/07/2019 11:25 EDT [facility] [employer] Supervisor ID [id number] 04/07/2019 11:25 EDT [facility] Comment:Test Performed by Nu rsing Services BLOOD SPECIMEN / Unknown 04/07/2019 11:20 EDT 04/07/2019 11:25 EDT Leticia Galdamez MD CHEMISTRY & BLOOD GAS ORDERAB LES Final Result Performing Organization Address City/[facility]/ZIP Co de Phone Number [facility] [address] [place] [address] * TRANSFUSE RED BLOOD CELLS (04/07/2019 10:18 EDT) Blood specimen (specimen) Flex Flores MD NURSING TREATMENT - BLOOD ADMIN ISTRATION Final Result * TYPE AND SCREEN (04/07/2019 6:22 EDT) ABO O [facility] Rh Factor Positive [facility] Antibody Screen Negative [facility] Comment: Patient is electronic crossmatch eligible. Units available upon request for transfusion. Specimen Expires: 04/10/2019 @ 23:59 [facility] Blood specimen (specimen) 04/07/2019 6:22 EDT Flex Flores MD BLOOD BANK TESTS Final Result [facility] [address] [place] [address] * PREPARE RED BLOOD CELLS (04/07/2019 5:26 EDT) Product Code [id number] [facility] Donor Number [id number] U [facility] B[facility] Unit ABO O [facility] Unit Rh POS [facility] Unit Status TR^Transfuse [facility] Product Expiration Date [id number] [facility] Unit Blood Type Code 5100 [facility] Coding System [id number] [facility] Blood specimen (specimen) 04/07/2019 5:26 EDT us Flex Flores MD BLOOD BANK ORDERABLES Final Res ult Performing Organization Address City/State/[facility] Co de Phone Number [facility] [address] [place] [address] * (ABNORMAL) COMPLETE BLOOD COUNT (04/07/2019 4:48 EDT) WBC 5.07 4.0 - 10.4 K/cmm 04/07/2019 5:15 [facility] RBC 2.18(L) 4.36 - 5.78 M/cmm 04/07/2019 5:15 [facility] Hemoglobin 6.6(LL) 13.8 - 17.3 gm/dl 04/07/2019 5:15 [facility] HCT 20.5(LL) 39.5 - 50.2 % 04/07/2019 5:15 [facility] MCV 94 81 - 95 fl 04/07/2019 5:15 [facility] MCH 30.3 27.6 - 33.0 pg 04/07/2019 5:15 [facility] MCHC 32.2(L) 32.8 - 36.4 gm/dl 04/07/2019 5:15 [facility] RDW-CV 16.3(H) <14.2 % 04/07/2019 5:15 [facility] RDW-SD 54.4(H) <46.0 fl 04/07/2019 5:15 [facility] PLT 346 141 - 377 K/cmm 04/07/2019 5:15 [facility] MPV 11.4 9.5 - 12.7 fl 04/07/2019 5:15 [facility] Blood specimen (specimen) BLOOD SPECIMEN / Unknown 04/07/2019 4:48 EDT 04/07/2019 5:02 EDT us Charo Frank MD HEMATOLOGY & PF4 ORDERABLES Final Result [facility] [address] [place] [address] * ELECTROLYTES (04/07/2019 4:48 EDT) Sodium 137 136 - 145 mEq/L 04/07/2019 5:35 EDT [facility] Potassium 3.9 3.5 - 5.0 mEq/L 04/07/2019 5:35 EDT [facility] Chloride 108 96 - 110 mEq/L 04/07/2019 5:35 EDT [facility] CO2 23 22 - 32 mEq/L 04/07/2019 5:35 EDT [facility] Blood specimen (specimen) BLOOD SPECIMEN / Unknown 04/07/2019 4:48 EDT 04/07/2019 5:02 EDT us Jonatan Martinez MD CHEMISTRY & BLOOD GAS ORDERAB LES Final Result Performing Organization Address [facility]/ZIP Co de Phone Number [facility] [address] [place] [address] * MAGNESIUM (04/07/2019 4:48 EDT) Magnesium 2.0 1.7 - 2.8 mg/dl 04/07/2019 5:35 EDT [facility] Blood specimen (specimen) BLOOD SPECIMEN / Unknown 04/07/2019 4:48 EDT 04/07/2019 5:02 EDT us Kori Nguyen MD CHEMISTRY & BLOOD GAS ORD ERABLES Final Result [facility] [address] [place] [address] * (ABNORMAL) CALCIUM (04/07/2019 4:48 EDT) Calcium 7.9(L) 8.5 - 10.5 mg/dl 04/07/2019 5:35 EDT [facility] Calculated Calcium 9.4 8.5 - 10.5 mg/dl 04/07/2019 5:35 EDT [facility] Blood specimen (specimen) BLOOD SPECIMEN / Unknown 04/07/2019 4:48 EDT 04/07/2019 5:02 EDT us Kori Nguyen MD CHEMISTRY & BLOOD GAS ORD ERABLES Final Result [facility] [address] [place] [address] * PHOSPHORUS (04/07/2019 4:48 EDT) Phosphorus 3.7 2.5 - 4.5 mg/dl 04/07/2019 5:35 EDT [facility] Blood specimen (specimen) BLOOD SPECIMEN / Unknown 04/07/2019 4:48 EDT 04/07/2019 5:02 EDT us Kori Nguyen MD CHEMISTRY & BLOOD GAS ORD ERABLES Final Result Performing Organization Address [facility] de Phone Number [facility] [address] [place] [address] * CREATININE (04/07/2019 4:48 EDT) Creatinine 0.78 0.66 - 1.25 mg/dl 04/07/2019 5:35 EDT [facility] GFR, Calculated 95 >60 ml/min/1.7 3m2 04/07/2019 5:35 EDT [facility] Comment: eGFR calculated using CKD-EPI equation for non Americans. Multiply eGFR by 1.16 for Americans. Blood specimen (specimen) BLOOD SPECIMEN / Unknown 04/07/2019 4:48 EDT 04/07/2019 5:02 EDT us Kori Nguyen MD CHEMISTRY & BLOOD GAS ORD ERABLES Final Result [facility] [address] [place] [address] * INSERT PICC LINE (04/06/2019 16:12 EDT) Narrative Jose Kohler RN - 04/06/2019 16:12 EDT Jose Kohler RN ? 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 us Kathy Garza DO [facility] DIAGNOSTIC IMAGING ORDERAB LES Final Result * (ABNORMAL) COMPLETE BLOOD COUNT (04/06/2019 3:03 EDT) WBC 6.51 4.0 - 10.4 K/cmm 04/06/2019 3:29 T [facility] RBC 2.45(L) 4.36 - 5.78 M/cmm 04/06/2019 3:29 [facility] Hemoglobin 7.4(L) 13.8 - 17.3 gm/dl 04/06/2019 3:29 [facility] HCT 23.1(L) 39.5 - 50.2 % 04/06/2019 3:29 [facility] MCV 94 81 - 95 fl 04/06/2019 3:29 EDT [facility] MCH 30.2 27.6 - 33.0 pg 04/06/2019 3:29 EDT [facility] MCHC 32.0(L) 32.8 - 36.4 gm/dl 04/06/2019 3:29 EDT [facility] RDW-CV 16.8(H) <14.2 % 04/06/2019 3:29 EDT [facility] RDW-SD 56.0(H) <46.0 fl 04/06/2019 3:29 EDT [facility] Anisocytosis 1+ 04/06/2019 3:29 EDT [facility] PLT 294 141 - 377 K/cmm 04/06/2019 3:29 EDT [facility] MPV 11.6 9.5 - 12.7 fl 04/06/2019 3:29 EDT [facility] Blood specimen (specimen) BLOOD SPECIMEN / Unknown 04/06/2019 3:03 EDT 04/06/2019 3:16 EDT us Charo Frank MD HEMATOLOGY & PF4 ORDERABLES Final Result [facility] [address] [place] [address] * (ABNORMAL) ELECTROLYTES (04/06/2019 3:03 EDT) Sodium 135(L) 136 - 145 mEq/L 04/06/2019 3:54 EDT [facility] Potassium 3.4(L) 3.5 - 5.0 mEq/L 04/06/2019 3:54 EDT [facility] Chloride 107 96 - 110 mEq/L 04/06/2019 3:54 EDT [facility] CO2 22 22 - 32 mEq/L 04/06/2019 3:54 EDT [facility] Blood specimen (specimen) BLOOD SPECIMEN / Unknown 04/06/2019 3:03 EDT 04/06/2019 3:16 EDT us Jonatan Martinez MD CHEMISTRY & BLOOD GAS ORDERAB LES Final Result Performing Organization Address City/[facility]/ZIP Co de Phone Number [facility] [address] [place] [address] * MAGNESIUM (04/06/2019 3:03 EDT) Magnesium 2.0 1.7 - 2.8 mg/dl 04/06/2019 3:54 EDT [facility] Blood specimen (specimen) BLOOD SPECIMEN / Unknown 04/06/2019 3:03 EDT 04/06/2019 3:16 EDT us Kori Nguyen MD CHEMISTRY & BLOOD GAS ORD ERABLES Final Result Performing Organization Address [facility] Co de Phone Number [facility] [address] [place] [address] * (ABNORMAL) CALCIUM (04/06/2019 3:03 EDT) Calcium 7.9(L) 8.5 - 10.5 mg/dl 04/06/2019 3:54 EDT [facility] Calculated Calcium 9.3 8.5 - 10.5 mg/dl 04/06/2019 3:54 EDT [facility] Blood specimen (specimen) BLOOD SPECIMEN / Unknown 04/06/2019 3:03 EDT 04/06/2019 3:16 EDT us Kori Nguyen MD CHEMISTRY & BLOOD GAS ORD ERABLES Final Result [facility] [address] [place] [address] * PHOSPHORUS (04/06/2019 3:03 EDT) Phosphorus 3.9 2.5 - 4.5 mg/dl 04/06/2019 3:54 EDT [facility] Blood specimen (specimen) BLOOD SPECIMEN / Unknown 04/06/2019 3:03 EDT 04/06/2019 3:16 EDT us Kori Nguyen MD CHEMISTRY & BLOOD GAS ORD ERABLES Final Result Performing Organization Address City/[facility]/ZIP Co de Phone Number [facility] [address] [place] [address] * CREATININE (04/06/2019 3:03 EDT) Creatinine 0.80 0.66 - 1.25 mg/dl 04/06/2019 3:54 EDT [facility] GFR, Calculated 94 >60 ml/min/1.7 3m2 04/06/2019 3:54 EDT [facility] Comment: eGFR calculated using CKD-EPI equation for non Americans. Multiply eGFR by 1.16 for Americans. Blood specimen (specimen) BLOOD SPECIMEN / Unknown 04/06/2019 3:03 EDT 04/06/2019 3:16 EDT us Kori Nguyen MD CHEMISTRY & BLOOD GAS ORD ERABLES Final Result Performing Organization Address City/[facility] Co de Phone Number [facility] [address] [place] [address] * ECG REPORT - SCANNED (04/05/2019 8:44 EDT) 04/05/2019 8:44 EDT us Scan 2 Assistant Operations Manager PROCEDURE/MINOR SURGICAL OR DERABLES Final Result * (ABNORMAL) COMPLETE BLOOD COUNT (04/05/2019 5:39 EDT) WBC 6.34 4.0 - 10.4 K/cmm 04/05/2019 6:13 EDT [facility] RBC 2.52(L) 4.36 - 5.78 M/cmm 04/05/2019 6:13 EDT [facility] Hemoglobin 7.7(L) 13.8 - 17.3 gm/dl 04/05/2019 6:13 EDT [facility] HCT 23.3(L) 39.5 - 50.2 % 04/05/2019 6:13 [facility] MCV 93 81 - 95 fl 04/05/2019 6:13 [facility] MCH 30.6 27.6 - 33.0 pg 04/05/2019 6:13 [facility] MCHC 33.0 32.8 - 36.4 gm/dl 04/05/2019 6:13 [facility] RDW-CV 16.6(H) <14.2 % 04/05/2019 6:13 [facility] RDW-SD 54.7(H) <46.0 fl 04/05/2019 6:13 [facility] Anisocytosis 1+ 04/05/2019 6:13 [facility] PLT 231 141 - 377 K/cmm 04/05/2019 6:13 [facility] MPV 12.1 9.5 - 12.7 fl 04/05/2019 6:13 [facility] Blood specimen (specimen) BLOOD SPECIMEN / Unknown 04/05/2019 5:39 EDT 04/05/2019 5:59 EDT us Charo Frank MD HEMATOLOGY & PF4 ORDERABLES Final Result [facility] [address] [place] [address] * (ABNORMAL) ELECTROLYTES (04/05/2019 5:39 EDT) Sodium 132(L) 136 - 145 mEq/L 04/05/2019 6:33 T [facility] Potassium 3.5 3.5 - 5.0 mEq/L 04/05/2019 6:33 [facility] Chloride 106 96 - 110 mEq/L 04/05/2019 6:33 T [facility] CO2 19(L) 22 - 32 mEq/L 04/05/2019 6:33 EDT [facility] Blood specimen (specimen) BLOOD SPECIMEN / Unknown 04/05/2019 5:39 EDT 04/05/2019 5:59 EDT us Jonatan Martinez MD CHEMISTRY & BLOOD GAS ORDERAB LES Final Result [facility] [address] [place] [address] * MAGNESIUM (04/05/2019 5:39 EDT) Magnesium 2.0 1.7 - 2.8 mg/dl 04/05/2019 6:33 EDT [facility] Blood specimen (specimen) BLOOD SPECIMEN / Unknown 04/05/2019 5:39 EDT 04/05/2019 5:59 EDT us Kori Nguyen MD CHEMISTRY & BLOOD GAS ORD ERABLES Final Result Performing Organization Address [facility]/ZIP Co de Phone Number [facility] [address] [place] [address] * (ABNORMAL) CALCIUM (04/05/2019 5:39 EDT) Calcium 7.9(L) 8.5 - 10.5 mg/dl 04/05/2019 6:33 EDT [facility] Calculated Calcium 9.3 8.5 - 10.5 mg/dl 04/05/2019 6:33 EDT [facility] Blood specimen (specimen) BLOOD SPECIMEN / Unknown 04/05/2019 5:39 EDT 04/05/2019 5:59 EDT us Kori Nguyen MD CHEMISTRY & BLOOD GAS ORD ERABLES Final Result [facility] [address] [place] [address] * PHOSPHORUS (04/05/2019 5:39 EDT) Phosphorus 3.3 2.5 - 4.5 mg/dl 04/05/2019 6:33 EDT [facility] Blood specimen (specimen) BLOOD SPECIMEN / Unknown 04/05/2019 5:39 EDT 04/05/2019 5:59 EDT us Kori Nguyen MD CHEMISTRY & BLOOD GAS ORD ERABLES Final Result [facility] [address] [place] [address] * CREATININE (04/05/2019 5:39 EDT) Creatinine 0.74 0.66 - 1.25 mg/dl 04/05/2019 6:33 EDT [facility] GFR, Calculated 97 >60 ml/min/1.7 3m2 04/05/2019 6:33 EDT [facility] Comment: eGFR calculated using CKD-EPI equation for non Americans. Multiply eGFR by 1.16 for Americans. Blood specimen (specimen) BLOOD SPECIMEN / Unknown 04/05/2019 5:39 EDT 04/05/2019 5:59 EDT us Kori Nguyen MD CHEMISTRY & BLOOD GAS ORD ERABLES Final Result Performing Organization Address City/[facility]/ZIP Co de Phone Number [facility] [address] [place] [address] * (ABNORMAL) GLUCOSE, GLUCOMETER (04/05/2019 5:36 EDT) Glucose, Fingerstick 130(H) 70 - 100 mg/dl 04/05/2019 5:54 EDT [facility] [employer] [place] [id number] 04/05/2019 5:54 EDT [facility] Comment:Test Performed by [facility] BLOOD SPECIMEN / Unknown 04/05/2019 5:36 EDT 04/05/2019 5:54 EDT us Leticia Galdamez MD CHEMISTRY & BLOOD GAS ORDERAB LES Final Result Performing Organization Address City/[facility]/ZIP Co de Phone Number [facility] [address] [place] [address] * (ABNORMAL) GLUCOSE, GLUCOMETER (04/04/2019 23:31 EDT) Glucose, Fingerstick 117(H) 70 - 100 mg/dl 04/04/2019 23:59 EDT [facility] [employer] ID [id number] 04/04/2019 23:59 EDT [facility] Comment:Test Performed by [employer] BLOOD SPECIMEN / Unknown 04/04/2019 23:31 EDT 04/04/2019 23:59 EDT us Leticia Galdamez MD CHEMISTRY & BLOOD GAS ORDERAB LES Final Result Performing Organization Address [facility] Co de Phone Number [facility] [address] [place] [address] * (ABNORMAL) GLUCOSE, GLUCOMETER (04/04/2019 18:31 EDT) Glucose, Fingerstick 117(H) 70 - 100 mg/dl 04/04/2019 18:32 EDT [facility] [employer] ID [id number] 04/04/2019 18:32 EDT [facility] Comment:Test Performed by [employer] BLOOD SPECIMEN / Unknown 04/04/2019 18:31 EDT 04/04/2019 18:32 EDT us Leticia Galdamez MD CHEMISTRY & BLOOD GAS ORDERAB LES Final Result Performing Organization Address [facility] de Phone Number [facility] [address] [place] [address] * (ABNORMAL) GLUCOSE, GLUCOMETER (04/04/2019 11:51 EDT) Glucose, Fingerstick 124(H) 70 - 100 mg/dl 04/04/2019 11:52 EDT [facility] [employer] [place] [id number] 04/04/2019 11:52 EDT [facility] Comment:Test Performed by [employer] BLOOD SPECIMEN / Unknown 04/04/2019 11:51 EDT 04/04/2019 11:52 EDT us Leticia Galdamez MD CHEMISTRY & BLOOD GAS ORDERAB LES Final Result Performing Organization Address City/[facility] Co de Phone Number [facility] [address] [place] [address] * (ABNORMAL) GLUCOSE, GLUCOMETER (04/04/2019 6:23 EDT) Glucose, Fingerstick 114(H) 70 - 100 mg/dl 04/04/2019 6:27 EDT [facility] [employer] ID [id number] 04/04/2019 6:27 EDT [facility] Comment:Test Performed by [facility] BLOOD SPECIMEN / Unknown 04/04/2019 6:23 EDT 04/04/2019 6:27 EDT Leticia Galdamez MD CHEMISTRY & BLOOD GAS ORDERAB LES Final Result [facility] [address] [place] [address] * (ABNORMAL) COMPLETE BLOOD COUNT (04/04/2019 4:01 EDT) [facility] WBC 5.21 4.0 - 10.4 K/cmm 04/04/2019 4:25 [facility] RBC 2.39(L) 4.36 - 5.78 M/cmm 04/04/2019 4:25 [facility] Hemoglobin 7.3(L) 13.8 - 17.3 gm/dl 04/04/2019 4:25 [facility] HCT 22.4(L) 39.5 - 50.2 % 04/04/2019 4:25 [facility] MCV 94 81 - 95 fl 04/04/2019 4:25 [facility] MCH 30.5 27.6 - 33.0 pg 04/04/2019 4:25 [facility] MCHC 32.6(L) 32.8 - 36.4 gm/dl 04/04/2019 4:25 [facility] RDW-CV 16.3(H) <14.2 % 04/04/2019 4:25 [facility] RDW-SD 53.6(H) <46.0 fl 04/04/2019 4:25 EDT [facility] PLT 172 141 - 377 K/cmm 04/04/2019 4:25 EDT [facility] MPV 12.3 9.5 - 12.7 fl 04/04/2019 4:25 EDT [facility] Blood specimen (specimen) BLOOD SPECIMEN / Unknown 04/04/2019 4:01 EDT 04/04/2019 4:05 EDT Charo Frank MD HEMATOLOGY & PF4 ORDERABLES Final Result Performing Organization Address [facility] de Phone Number [facility] [address] [place] [address] * (ABNORMAL) ELECTROLYTES (04/04/2019 4:01 EDT) Sodium 134(L) 136 - 145 mEq/L 04/04/2019 4:34 EDT [facility] Potassium 3.8 3.5 - 5.0 mEq/L 04/04/2019 4:34 EDT [facility] Chloride 110 96 - 110 mEq/L 04/04/2019 4:34 EDT [facility] CO2 18(L) 22 - 32 mEq/L 04/04/2019 4:34 EDT [facility] Blood specimen (specimen) BLOOD SPECIMEN / Unknown 04/04/2019 4:01 EDT 04/04/2019 4:05 EDT Jonatan Martinez MD CHEMISTRY & BLOOD GAS ORDERAB LES Final Result Performing Organization Address [facility]/ZIP Co de Phone Number [facility] [address] [place] [address] * MAGNESIUM (04/04/2019 4:01 EDT) Magnesium 2.0 1.7 - 2.8 mg/dl 04/04/2019 4:34 EDT [facility] Blood specimen (specimen) BLOOD SPECIMEN / Unknown 04/04/2019 4:01 EDT 04/04/2019 4:05 EDT us Kori Nguyen MD CHEMISTRY & BLOOD GAS ORD ERABLES Final Result Performing Organization Address City/[facility]/ZIP Co de Phone Number [facility] [address] [place] [address] * (ABNORMAL) CALCIUM (04/04/2019 4:01 EDT) Calcium 7.9(L) 8.5 - 10.5 mg/dl 04/04/2019 4:34 EDT [facility] Calculated Calcium 9.4 8.5 - 10.5 mg/dl 04/04/2019 4:34 EDT [facility] Blood specimen (specimen) BLOOD SPECIMEN / Unknown 04/04/2019 4:01 EDT 04/04/2019 4:05 EDT us Kori Nguyen MD CHEMISTRY & BLOOD GAS ORD ERABLES Final Result Performing Organization Address [facility]/ZIP Co de Phone Number [facility] [address] [place] [address] * PHOSPHORUS (04/04/2019 4:01 EDT) Phosphorus 3.3 2.5 - 4.5 mg/dl 04/04/2019 4:34 EDT [facility] Blood specimen (specimen) BLOOD SPECIMEN / Unknown 04/04/2019 4:01 EDT 04/04/2019 4:05 EDT us Kori Nguyen MD CHEMISTRY & BLOOD GAS ORD ERABLES Final Result [facility] [address] [place] [address] * CREATININE (04/04/2019 4:01 EDT) Creatinine 0.84 0.66 - 1.25 mg/dl 04/04/2019 4:34 EDT [facility] GFR, Calculated 92 >60 ml/min/1.7 3m2 04/04/2019 4:34 EDT [facility] Comment: eGFR calculated using CKD-EPI equation for non Americans. Multiply eGFR by 1.16 for Americans. Blood specimen (specimen) BLOOD SPECIMEN / Unknown 04/04/2019 4:01 EDT 04/04/2019 4:05 EDT us Kori Nguyen MD CHEMISTRY & BLOOD GAS ORD ERABLES Final Result Performing Organization Address City/[facility]/ZIP Co de Phone Number [facility] [address] [place] [address] * (ABNORMAL) GLUCOSE, GLUCOMETER (04/03/2019 23:50 EDT) Glucose, Fingerstick 104(H) 70 - 100 mg/dl 04/03/2019 23:54 EDT [facility] [employer] ID [id number] 04/03/2019 23:54 EDT [facility] Comment:Test Performed by [employer] BLOOD SPECIMEN / Unknown 04/03/2019 23:50 EDT 04/03/2019 23:54 EDT us Leticia Galdamez MD CHEMISTRY & BLOOD GAS ORDERAB LES Final Result Performing Organization Address [facility] Co de Phone Number [facility] [address] [place] [address] * (ABNORMAL) GLUCOSE, GLUCOMETER (04/03/2019 18:10 EDT) Glucose, Fingerstick 123(H) 70 - 100 mg/dl 04/03/2019 18:11 EDT [facility] [employer] ID [id number] 04/03/2019 18:11 EDT [facility] Comment:Test Performed by [employer] BLOOD SPECIMEN / Unknown 04/03/2019 18:10 EDT 04/03/2019 18:11 EDT Leticia Galdamez MD CHEMISTRY & BLOOD GAS ORDERAB LES Final Result Performing Organization Address City/[facility]/ZIP Co de Phone Number [facility] [address] [place] [address] * (ABNORMAL) GLUCOSE, GLUCOMETER (04/03/2019 11:50 EDT) Glucose, Fingerstick 121(H) 70 - 100 mg/dl 04/03/2019 11:51 EDT [facility] [employer] [place] [id number] 04/03/2019 11:51 EDT [facility] Comment:Test Performed by [employer] BLOOD SPECIMEN / Unknown 04/03/2019 11:50 EDT 04/03/2019 11:51 EDT Leticia Galdamez MD CHEMISTRY & BLOOD GAS ORDERAB LES Final Result Performing Organization Address [facility] Co de Phone Number [facility] [address] [place] [address] * (ABNORMAL) GLUCOSE, GLUCOMETER (04/03/2019 5:09 EDT) Glucose, Fingerstick 125(H) 70 - 100 mg/dl 04/03/2019 5:10 EDT [facility] [employer] ID [id number] 04/03/2019 5:10 EDT [facility] Comment:Test Performed by [employer] BLOOD SPECIMEN / Unknown 04/03/2019 5:09 EDT 04/03/2019 5:10 EDT Leticia Galdamez MD CHEMISTRY & BLOOD GAS ORDERAB LES Final Result Performing Organization Address City/[facility] Co de Phone Number [facility] [address] [place] [address] * (ABNORMAL) COMPLETE BLOOD COUNT (04/03/2019 4:01 EDT) WBC 3.84(L) 4.0 - 10.4 K/cmm 04/03/2019 4:15 EDT [facility] RBC 2.63(L) 4.36 - 5.78 M/cmm 04/03/2019 4:15 EDT [facility] Hemoglobin 8.2(L) 13.8 - 17.3 gm/dl 04/03/2019 4:15 EDT [facility] HCT 25.0(L) 39.5 - 50.2 % 04/03/2019 4:15 T [facility] MCV 95 81 - 95 fl 04/03/2019 4:15 T [facility] MCH 31.2 27.6 - 33.0 pg 04/03/2019 4:15 [facility] MCHC 32.8 32.8 - 36.4 gm/dl 04/03/2019 4:15 T [facility] RDW-CV 16.6(H) <14.2 % 04/03/2019 4:15 T [facility] RDW-SD 54.4(H) <46.0 fl 04/03/2019 4:15 [facility] Anisocytosis 1+ 04/03/2019 4:15 [facility] PLT 154 141 - 377 K/cmm 04/03/2019 4:15 [facility] MPV 11.9 9.5 - 12.7 fl 04/03/2019 4:15 [facility] Blood specimen (specimen) BLOOD SPECIMEN / Unknown 04/03/2019 4:01 EDT 04/03/2019 4:08 EDT Charo Frank MD HEMATOLOGY & PF4 ORDERABLES Final Result [facility] [address] [place] [address] * (ABNORMAL) ELECTROLYTES (04/03/2019 4:01 EDT) Sodium 136 136 - 145 mEq/L 04/03/2019 4:44 T [facility] Potassium 3.7 3.5 - 5.0 mEq/L 04/03/2019 4:44 T [facility] Chloride 112(H) 96 - 110 mEq/L 04/03/2019 4:44 EDT [facility] CO2 18(L) 22 - 32 mEq/L 04/03/2019 4:44 T [facility] Blood specimen (specimen) BLOOD SPECIMEN / Unknown 04/03/2019 4:01 EDT 04/03/2019 4:08 EDT us Jonatan Martinez MD CHEMISTRY & BLOOD GAS ORDERAB LES Final Result Performing Organization Address City/[facility]/ZIP Co de Phone Number [facility] [address] [place] [address] * MAGNESIUM (04/03/2019 4:01 EDT) Magnesium 2.1 1.7 - 2.8 mg/dl 04/03/2019 4:44 EDT [facility] Blood specimen (specimen) BLOOD SPECIMEN / Unknown 04/03/2019 4:01 EDT 04/03/2019 4:08 EDT us Kori Nguyen MD CHEMISTRY & BLOOD GAS ORD ERABLES Final Result Performing Organization Address [facility] Co de Phone Number [facility] [address] [place] [address] * (ABNORMAL) CALCIUM (04/03/2019 4:01 EDT) Calcium 8.0(L) 8.5 - 10.5 mg/dl 04/03/2019 4:44 EDT [facility] Calculated Calcium 9.4 8.5 - 10.5 mg/dl 04/03/2019 4:44 EDT [facility] Blood specimen (specimen) BLOOD SPECIMEN / Unknown 04/03/2019 4:01 EDT 04/03/2019 4:08 EDT us Kori Nguyen MD CHEMISTRY & BLOOD GAS ORD ERABLES Final Result Performing Organization Address City/[facility]/ZIP Co de Phone Number [facility] [address] [place] [address] * PHOSPHORUS (04/03/2019 4:01 EDT) Phosphorus 3.5 2.5 - 4.5 mg/dl 04/03/2019 4:44 EDT [facility] Blood specimen (specimen) BLOOD SPECIMEN / Unknown 04/03/2019 4:01 EDT 04/03/2019 4:08 EDT us Kori Nguyen MD CHEMISTRY & BLOOD GAS ORD ERABLES Final Result [facility] [address] [place] [address] * CREATININE (04/03/2019 4:01 EDT) Creatinine 0.89 0.66 - 1.25 mg/dl 04/03/2019 4:44 EDT [facility] GFR, Calculated 90 >60 ml/min/1.7 3m2 04/03/2019 4:44 EDT [facility] Comment: eGFR calculated using CKD-EPI equation for non Americans. Multiply eGFR by 1.16 for Americans. Blood specimen (specimen) BLOOD SPECIMEN / Unknown 04/03/2019 4:01 EDT 04/03/2019 4:08 EDT us Kori Nguyen MD CHEMISTRY & BLOOD GAS ORD ERABLES Final Result Performing Organization Address [facility] Co de Phone Number [facility] [address] [place] [address] * (ABNORMAL) GLUCOSE, GLUCOMETER (04/02/2019 23:39 EDT) Glucose, Fingerstick 132(H) 70 - 100 mg/dl 04/02/2019 23:42 EDT [facility] [employer]visor ID [id number] 04/02/2019 23:42 EDT [facility] Comment:[facility] BLOOD SPECIMEN / Unknown 04/02/2019 23:39 EDT 04/02/2019 23:42 EDT us Leticia Galdamez MD CHEMISTRY & BLOOD GAS ORDERAB LES Final Result Performing Organization Address [facility]/ZIP Co de Phone Number [facility] [address] [place] [address] * (ABNORMAL) ELECTROLYTES (04/02/2019 17:50 EDT) Sodium 137 136 - 145 mEq/L 04/02/2019 18:44 EDT [facility] Potassium 3.8 3.5 - 5.0 mEq/L 04/02/2019 18:44 EDT [facility] Chloride 113(H) 96 - 110 mEq/L 04/02/2019 18:44 EDT [facility] CO2 18(L) 22 - 32 mEq/L 04/02/2019 18:44 EDT [facility] Blood specimen (specimen) BLOOD SPECIMEN / Unknown 04/02/2019 17:50 EDT 04/02/2019 17:57 EDT us Ayaan SMITH CHEMISTRY & BLOOD GAS ORDERAB LES Final Result Performing Organization Address [facility] Co de Phone Number [facility] [address] [place] [address] * (ABNORMAL) GLUCOSE, GLUCOMETER (04/02/2019 17:10 EDT) Glucose, Fingerstick 130(H) 70 - 100 mg/dl 04/02/2019 17:15 EDT [facility] [employer] ID [id number] 04/02/2019 17:15 EDT [facility] Comment:Test Performed by [employer] BLOOD SPECIMEN / Unknown 04/02/2019 17:10 EDT 04/02/2019 17:15 EDT us Leticia Galdamez MD CHEMISTRY & BLOOD GAS ORDERAB LES Final Result [facility] [address] [place] [address] * (ABNORMAL) GLUCOSE, GLUCOMETER (04/02/2019 11:57 EDT) Glucose, Fingerstick 138(H) 70 - 100 mg/dl 04/02/2019 12:01 EDT [facility] [employer] ID [id number] 04/02/2019 12:01 EDT [facility] Comment:Test Performed by [employer] BLOOD SPECIMEN / Unknown 04/02/2019 11:57 EDT 04/02/2019 12:01 EDT Leticia Galdamez MD CHEMISTRY & BLOOD GAS ORDERAB LES Final Result Performing Organization Address [facility] Co de Phone Number [facility] [address] [place] [address] * (ABNORMAL) GLUCOSE, GLUCOMETER (04/02/2019 6:17 EDT) Glucose, Fingerstick 134(H) 70 - 100 mg/dl 04/02/2019 11:54 EDT [facility] [employer] Super[employer] ID [id number] 04/02/2019 11:54 EDT [facility] Comment:[facility] BLOOD SPECIMEN / Unknown 04/02/2019 6:17 EDT 04/02/2019 11:54 EDT Leticia Galdamez MD CHEMISTRY & BLOOD GAS ORDERAB LES Final Result Performing Organization Address [facility] de Phone Number [facility] [address] [place] [address] * (ABNORMAL) COMPLETE BLOOD COUNT (04/02/2019 2:06 EDT) WBC 3.20(L) 4.0 - 10.4 K/cmm 04/02/2019 2:24 EDT [facility] RBC 2.63(L) 4.36 - 5.78 M/cmm 04/02/2019 2:24 EDT [facility] Hemoglobin 8.1(L) 13.8 - 17.3 gm/dl 04/02/2019 2:24 T [facility] HCT 24.8(L) 39.5 - 50.2 % 04/02/2019 2:24 EDT [facility] MCV 94 81 - 95 fl 04/02/2019 2:24 EDT [facility] MCH 30.8 27.6 - 33.0 pg 04/02/2019 2:24 EDT [facility] MCHC 32.7(L) 32.8 - 36.4 gm/dl 04/02/2019 2:24 EDT [facility] RDW-CV 16.3(H) <14.2 % 04/02/2019 2:24 EDT [facility] RDW-SD 52.3(H) <46.0 fl 04/02/2019 2:24 EDT [facility] PLT 146 141 - 377 K/cmm 04/02/2019 2:24 EDT [facility] MPV 12.1 9.5 - 12.7 fl 04/02/2019 2:24 EDT [facility] Blood specimen (specimen) BLOOD SPECIMEN / Unknown 04/02/2019 2:06 EDT 04/02/2019 2:15 EDT Charo Frank MD HEMATOLOGY & PF4 ORDERABLES Final Result Performing Organization Address [facility] de Phone Number [facility] [address] [place] [address] * ELECTROLYTES (04/02/2019 2:06 EDT) Sodium 137 136 - 145 mEq/L 04/02/2019 2:50 EDT [facility] Potassium 3.7 3.5 - 5.0 mEq/L 04/02/2019 2:50 EDT [facility] Chloride 109 96 - 110 mEq/L 04/02/2019 2:50 EDT [facility] CO2 22 22 - 32 mEq/L 04/02/2019 2:50 EDT [facility] Blood specimen (specimen) BLOOD SPECIMEN / Unknown 04/02/2019 2:06 EDT 04/02/2019 2:15 EDT Jonatan Martinez MD CHEMISTRY & BLOOD GAS ORDERAB LES Final Result Performing Organization Address [facility] Co de Phone Number [facility] [address] [place] [address] * MAGNESIUM (04/02/2019 2:06 EDT) Magnesium 2.2 1.7 - 2.8 mg/dl 04/02/2019 2:50 EDT [facility] Blood specimen (specimen) BLOOD SPECIMEN / Unknown 04/02/2019 2:06 EDT 04/02/2019 2:15 EDT us Kori Nguyen MD CHEMISTRY & BLOOD GAS ORD ERABLES Final Result [facility] [address] [place] [address] * (ABNORMAL) CALCIUM (04/02/2019 2:06 EDT) [facility] Calcium 7.9(L) 8.5 - 10.5 mg/dl 04/02/2019 2:50 EDT [facility] Calculated Calcium 9.4 8.5 - 10.5 mg/dl 04/02/2019 2:50 EDT [facility] Blood specimen (specimen) BLOOD SPECIMEN / Unknown 04/02/2019 2:06 EDT 04/02/2019 2:15 EDT us Kori Nguyen MD CHEMISTRY & BLOOD GAS ORD ERABLES Final Result Performing Organization Address City/[facility]/ZIP Co de Phone Number [facility] [address] [place] [address] * PHOSPHORUS (04/02/2019 2:06 EDT) Phosphorus 4.3 2.5 - 4.5 mg/dl 04/02/2019 2:50 EDT [facility] Blood specimen (specimen) BLOOD SPECIMEN / Unknown 04/02/2019 2:06 EDT 04/02/2019 2:15 EDT us Kori Nguyen MD CHEMISTRY & BLOOD GAS ORD ERABLES Final Result [facility] [address] [place] [address] * CREATININE (04/02/2019 2:06 EDT) Creatinine 1.05 0.66 - 1.25 mg/dl 04/02/2019 2:50 EDT [facility] GFR, Calculated 74 >60 ml/min/1.7 3m2 04/02/2019 2:50 EDT [facility] Comment: eGFR calculated using CKD-EPI equation for non Americans. Multiply eGFR by 1.16 for Americans. Blood specimen (specimen) BLOOD SPECIMEN / Unknown 04/02/2019 2:06 EDT 04/02/2019 2:15 EDT us Kori Nguyen MD CHEMISTRY & BLOOD GAS ORD ERABLES Final Result Performing Organization Address [facility] Co de Phone Number [facility] [address] [place] [address] * (ABNORMAL) GLUCOSE, GLUCOMETER (04/01/2019 23:55 EDT) Glucose, Fingerstick 124(H) 70 - 100 mg/dl 04/01/2019 23:56 EDT [facility] [employer] ID [id number] 04/01/2019 23:56 EDT [facility] Comment:[facility] BLOOD SPECIMEN / Unknown 04/01/2019 23:55 EDT 04/01/2019 23:56 EDT us Leticia Galdamez MD CHEMISTRY & BLOOD GAS ORDERAB LES Final Result Performing Organization Address [facility] Co de Phone Number [facility] [address] [place] [address] * MAGNESIUM (04/01/2019 20:30 EDT) Magnesium 2.2 1.7 - 2.8 mg/dl 04/01/2019 21:12 EDT [facility] Blood specimen (specimen) BLOOD SPECIMEN / Unknown 04/01/2019 20:30 EDT 04/01/2019 20:38 EDT us Christopher Cardenas MD CHEMISTRY & BLOOD GAS ORDERAB LES Final Result Performing Organization Address [facility]/ZIP Co de Phone Number [facility] [address] [place] [address] * CREATININE (04/01/2019 20:30 EDT) Creatinine 1.06 0.66 - 1.25 mg/dl 04/01/2019 21:12 EDT [facility] GFR, Calculated 73 >60 ml/min/1.7 3m2 04/01/2019 21:12 EDT [facility] Comment: eGFR calculated using CKD-EPI equation for non Americans. Multiply eGFR by 1.16 for Americans. Blood specimen (specimen) BLOOD SPECIMEN / Unknown 04/01/2019 20:30 EDT 04/01/2019 20:38 EDT us Christopher Cardenas MD CHEMISTRY & BLOOD GAS ORDERAB LES Final Result Performing Organization Address [facility] de Phone Number [facility] [address] [place] [address] * (ABNORMAL) ELECTROLYTES (04/01/2019 20:30 EDT) [facility] Signature Sodium 137 136 - 145 mEq/L 04/01/2019 21:12 EDT [facility] Potassium 3.4(L) 3.5 - 5.0 mEq/L 04/01/2019 21:12 EDT [facility] Chloride 108 96 - 110 mEq/L 04/01/2019 21:12 EDT [facility] CO2 22 22 - 32 mEq/L 04/01/2019 21:12 EDT [facility] Blood specimen (specimen) BLOOD SPECIMEN / Unknown 04/01/2019 20:30 EDT 04/01/2019 20:38 EDT Christopher Cardenas MD CHEMISTRY & BLOOD GAS ORDERAB LES Final Result Performing Organization Address [facility]/ZIP Co de Phone Number [facility] [address] [place] [address] * (ABNORMAL) GLUCOSE, GLUCOMETER (04/01/2019 17:57 EDT) Glucose, Fingerstick 110(H) 70 - 100 mg/dl 04/01/2019 17:57 EDT [facility] [employer]visor ID [id number] 04/01/2019 17:57 EDT [facility] Comment:Test Performed by [facility] BLOOD SPECIMEN / Unknown 04/01/2019 17:57 EDT 04/01/2019 17:58 EDT Leticia Galdamez MD CHEMISTRY & BLOOD GAS ORDERAB LES Final Result Performing Organization Address [facility] Co de Phone Number [facility] [address] [place] [address] * (ABNORMAL) GLUCOSE, GLUCOMETER (04/01/2019 11:24 EDT) Glucose, Fingerstick 146(H) 70 - 100 mg/dl 04/01/2019 11:28 EDT [facility] [employer]visor ID [id number] 04/01/2019 11:28 EDT [facility] Comment:Test Performed by rsing Services BLOOD SPECIMEN / Unknown 04/01/2019 11:24 EDT 04/01/2019 11:28 EDT Leticia Galdamez MD CHEMISTRY & BLOOD GAS ORDERAB LES Final Result Performing Organization Address [facility] de Phone Number [facility] [address] [place] [address] * ELECTROLYTES (04/01/2019 5:12 EDT) Sodium 136 136 - 145 mEq/L 04/01/2019 5:38 EDT [facility] Potassium 3.6 3.5 - 5.0 mEq/L 04/01/2019 5:38 EDT [facility] Chloride 106 96 - 110 mEq/L 04/01/2019 5:38 EDT [facility] CO2 26 22 - 32 mEq/L 04/01/2019 5:38 EDT [facility] Blood specimen (specimen) BLOOD SPECIMEN / Unknown 04/01/2019 5:12 EDT 04/01/2019 5:15 EDT us Ayaan SMITH CHEMISTRY & BLOOD GAS ORDERAB LES Final Result [facility] [address] [place] [address] * (ABNORMAL) COMPLETE BLOOD COUNT (04/01/2019 5:12 EDT) WBC 2.75(L) 4.0 - 10.4 K/cmm 04/01/2019 5:22 EDT [facility] RBC 2.43(L) 4.36 - 5.78 M/cmm 04/01/2019 5:22 [facility] Hemoglobin 7.6(L) 13.8 - 17.3 gm/dl 04/01/2019 5:22 [facility] HCT 22.8(L) 39.5 - 50.2 % 04/01/2019 5:22 [facility] MCV 94 81 - 95 fl 04/01/2019 5:22 [facility] MCH 31.3 27.6 - 33.0 pg 04/01/2019 5:22 [facility] MCHC 33.3 32.8 - 36.4 gm/dl 04/01/2019 5:22 [facility] RDW-CV 16.4(H) <14.2 % 04/01/2019 5:22 [facility] RDW-SD 51.2(H) <46.0 fl 04/01/2019 5:22 [facility] PLT 123(L) 141 - 377 K/cmm 04/01/2019 5:22 [facility] MPV 11.9 9.5 - 12.7 fl 04/01/2019 5:22 [facility] Blood specimen (specimen) BLOOD SPECIMEN / Unknown 04/01/2019 5:12 EDT 04/01/2019 5:15 EDT Ayaan Mak MBBS HEMATOLOGY & PF4 ORDERABLES F inal Result Performing Organization Address City/[facility]/ZIP Co de Phone Number [facility] [address] [place] [address] * MAGNESIUM (04/01/2019 5:12 EDT) Magnesium 1.8 1.7 - 2.8 mg/dl 04/01/2019 5:38 EDT [facility] Blood specimen (specimen) BLOOD SPECIMEN / Unknown 04/01/2019 5:12 EDT 04/01/2019 5:15 EDT us Kori Nguyen MD CHEMISTRY & BLOOD GAS ORD ERABLES Final Result Performing Organization Address City/[facility] Co de Phone Number [facility] [address] [place] [address] * (ABNORMAL) CALCIUM (04/01/2019 5:12 EDT) Calcium 7.8(L) 8.5 - 10.5 mg/dl 04/01/2019 5:38 EDT [facility] Calculated Calcium 9.4 8.5 - 10.5 mg/dl 04/01/2019 5:38 EDT [facility] Blood specimen (specimen) BLOOD SPECIMEN / Unknown 04/01/2019 5:12 EDT 04/01/2019 5:15 EDT us Kori Nguyen MD CHEMISTRY & BLOOD GAS ORD ERABLES Final Result Performing Organization Address City/[facility]/ZIP Co de Phone Number [facility] [address] [place] [address] * PHOSPHORUS (04/01/2019 5:12 EDT) Phosphorus 3.9 2.5 - 4.5 mg/dl 04/01/2019 5:38 EDT [facility] Blood specimen (specimen) BLOOD SPECIMEN / Unknown 04/01/2019 5:12 EDT 04/01/2019 5:15 EDT us Kori Nguyen MD CHEMISTRY & BLOOD GAS ORD ERABLES Final Result Performing Organization Address City/[facility]/ZIP Co de Phone Number [facility] [address] [place] [address] * CREATININE (04/01/2019 5:12 EDT) Creatinine 0.95 0.66 - 1.25 mg/dl 04/01/2019 5:38 EDT [facility] GFR, Calculated 84 >60 ml/min/1.7 3m2 04/01/2019 5:38 EDT [facility] Comment: eGFR calculated using CKD-EPI equation for non Americans. Multiply eGFR by 1.16 for Americans. Blood specimen (specimen) BLOOD SPECIMEN / Unknown 04/01/2019 5:12 EDT 04/01/2019 5:15 EDT us Kori Nguyen MD CHEMISTRY & BLOOD GAS ORD ERABLES Final Result Performing Organization Address [facility]/ZIP Co de Phone Number [facility] [address] [place] [address] * (ABNORMAL) GLUCOSE, GLUCOMETER (04/01/2019 5:10 EDT) Glucose, Fingerstick 134(H) 70 - 100 mg/dl 04/01/2019 5:11 EDT [facility] [employer]visor ID [id number] 04/01/2019 5:11 EDT [facility] Comment:[facility] BLOOD SPECIMEN / Unknown 04/01/2019 5:10 EDT 04/01/2019 5:11 EDT us Leticia Galdamez MD CHEMISTRY & BLOOD GAS ORDERAB LES Final Result Performing Organization Address [facility]/ZIP Co de Phone Number [facility] [address] [place] [address] * (ABNORMAL) GLUCOSE, GLUCOMETER (03/31/2019 23:46 EDT) Glucose, Fingerstick 131(H) 70 - 100 mg/dl 04/01/2019 5:06 EDT [facility] [employer] Supervisor ID [id number] 04/01/2019 5:06 EDT [facility] Comment:Test Performed by rsing Services BLOOD SPECIMEN / Unknown 03/31/2019 23:46 EDT 04/01/2019 5:06 EDT Leticia Galdamez MD CHEMISTRY & BLOOD GAS ORDERAB LES Final Result Performing Organization Address [facility] de Phone Number [facility] [address] [place] [address] * (ABNORMAL) GLUCOSE, GLUCOMETER (03/31/2019 17:21 EDT) Glucose, Fingerstick 123(H) 70 - 100 mg/dl 03/31/2019 17:57 EDT [facility] [employer] Supervisor ID [id number] 03/31/2019 17:57 EDT [facility] Comment:Test Performed by rsing Services BLOOD SPECIMEN / Unknown 03/31/2019 17:21 EDT 03/31/2019 17:57 EDT Leticia Galdamez MD CHEMISTRY & BLOOD GAS ORDERAB LES Final Result Performing Organization Address [facility] Co de Phone Number [facility] [address] [place] [address] * ELECTROLYTES (03/31/2019 17:12 EDT) Sodium 137 136 - 145 mEq/L 03/31/2019 17:46 EDT [facility] Potassium 3.5 3.5 - 5.0 mEq/L 03/31/2019 17:46 EDT [facility] Chloride 104 96 - 110 mEq/L 03/31/2019 17:46 EDT [facility] CO2 27 22 - 32 mEq/L 03/31/2019 17:46 EDT [facility] Blood specimen (specimen) BLOOD SPECIMEN / Unknown 03/31/2019 17:12 EDT 03/31/2019 17:28 EDT us Ayaan SMITH CHEMISTRY & BLOOD GAS ORDERAB LES Final Result Performing Organization Address City/[facility]/ZIP Co de Phone Number [facility] [address] [place] [address] * (ABNORMAL) COMPLETE BLOOD COUNT (03/31/2019 17:12 EDT) WBC 2.63(L) 4.0 - 10.4 K/cmm 03/31/2019 17:37 EDT [facility] RBC 2.32(L) 4.36 - 5.78 M/cmm 03/31/2019 17:37 T [facility] Hemoglobin 7.0(L) 13.8 - 17.3 gm/dl 03/31/2019 17:37 T [facility] HCT 21.6(L) 39.5 - 50.2 % 03/31/2019 17:37 [facility] MCV 93 81 - 95 fl 03/31/2019 17:37 T [facility] MCH 30.2 27.6 - 33.0 pg 03/31/2019 17:37 [facility] MCHC 32.4(L) 32.8 - 36.4 gm/dl 03/31/2019 17:37 [facility] RDW-CV 16.3(H) <14.2 % 03/31/2019 17:37 [facility] RDW-SD 50.5(H) <46.0 fl 03/31/2019 17:37 [facility] PLT 122(L) 141 - 377 K/cmm 03/31/2019 17:37 [facility] MPV 12.7 9.5 - 12.7 fl 03/31/2019 17:37 [facility] Blood specimen (specimen) BLOOD SPECIMEN / Unknown 03/31/2019 17:12 EDT 03/31/2019 17:28 EDT us Ayaan SMITH HEMATOLOGY & PF4 ORDERABLES F inal Result Performing Organization Address City/[facility]/ZIP Co de Phone Number [facility] [address] [place] [address] * (ABNORMAL) GLUCOSE, GLUCOMETER (03/31/2019 12:20 EDT) Glucose, Fingerstick 141(H) 70 - 100 mg/dl 03/31/2019 12:21 EDT [facility] [employer] Supervisor ID [id number] 03/31/2019 12:21 EDT [facility] Comment:Test Performed by [facility] Services BLOOD SPECIMEN / Unknown 03/31/2019 12:20 EDT 03/31/2019 12:21 EDT us Leticia Galdamez MD CHEMISTRY & BLOOD GAS ORDERAB LES Final Result Performing Organization Address [facility]/ZIP Co de Phone Number [facility] [address] [place] [address] * (ABNORMAL) ELECTROLYTES (03/31/2019 5:07 EDT) Sodium 139 136 - 145 mEq/L 03/31/2019 5:52 EDT [facility] Potassium 3.4(L) 3.5 - 5.0 mEq/L 03/31/2019 5:52 EDT [facility] Chloride 107 96 - 110 mEq/L 03/31/2019 5:52 EDT [facility] CO2 27 22 - 32 mEq/L 03/31/2019 5:52 EDT [facility] Blood specimen (specimen) BLOOD SPECIMEN / Unknown 03/31/2019 5:07 EDT 03/31/2019 5:17 EDT us Ayaan SMITH CHEMISTRY & BLOOD GAS ORDERAB LES Final Result [facility] [address] [place] [address] * (ABNORMAL) COMPLETE BLOOD COUNT (03/31/2019 5:07 EDT) WBC 2.75(L) 4.0 - 10.4 K/cmm 03/31/2019 5:39 EDT [facility] RBC 2.46(L) 4.36 - 5.78 M/cmm 03/31/2019 5:39 [facility] Hemoglobin 7.7(L) 13.8 - 17.3 gm/dl 03/31/2019 5:39 [facility] HCT 22.9(L) 39.5 - 50.2 % 03/31/2019 5:39 [facility] MCV 93 81 - 95 fl 03/31/2019 5:39 [facility] MCH 31.3 27.6 - 33.0 pg 03/31/2019 5:39 [facility] MCHC 33.6 32.8 - 36.4 gm/dl 03/31/2019 5:39 [facility] RDW-CV 16.3(H) <14.2 % 03/31/2019 5:39 [facility] RDW-SD 50.0(H) <46.0 fl 03/31/2019 5:39 [facility] PLT 124(L) 141 - 377 K/cmm 03/31/2019 5:39 [facility] MPV 12.3 9.5 - 12.7 fl 03/31/2019 5:39 [facility] Blood specimen (specimen) BLOOD SPECIMEN / Unknown 03/31/2019 5:07 EDT 03/31/2019 5:17 EDT us Ayaan SMITH HEMATOLOGY & PF4 ORDERABLES F inal Result [facility] [address] [place] [address] * MAGNESIUM (03/31/2019 5:07 EDT) Magnesium 1.8 1.7 - 2.8 mg/dl 03/31/2019 5:52 [facility] Blood specimen (specimen) BLOOD SPECIMEN / Unknown 03/31/2019 5:07 EDT 03/31/2019 5:17 EDT us Kori Nguyen MD CHEMISTRY & BLOOD GAS ORD ERABLES Final Result [facility] [address] [place] [address] * (ABNORMAL) CALCIUM (03/31/2019 5:07 EDT) Calcium 7.8(L) 8.5 - 10.5 mg/dl 03/31/2019 5:52 EDT [facility] Calculated Calcium 9.5 8.5 - 10.5 mg/dl 03/31/2019 5:52 EDT [facility] Blood specimen (specimen) BLOOD SPECIMEN / Unknown 03/31/2019 5:07 EDT 03/31/2019 5:17 EDT us Kori Nguyen MD CHEMISTRY & BLOOD GAS ORD ERABLES Final Result Performing Organization Address City/[facility]/ZIP Co de Phone Number [facility] [address] [place] [address] * PHOSPHORUS (03/31/2019 5:07 EDT) Phosphorus 3.6 2.5 - 4.5 mg/dl 03/31/2019 5:52 EDT [facility] Blood specimen (specimen) BLOOD SPECIMEN / Unknown 03/31/2019 5:07 EDT 03/31/2019 5:17 EDT us Kori Nguyen MD CHEMISTRY & BLOOD GAS ORD ERABLES Final Result [facility] [address] [place] [address] * CREATININE (03/31/2019 5:07 EDT) Creatinine 1.17 0.66 - 1.25 mg/dl 03/31/2019 5:52 EDT [facility] GFR, Calculated 65 >60 ml/min/1.7 3m2 03/31/2019 5:52 EDT [facility] Comment: eGFR calculated using CKD-EPI equation for non Americans. Multiply eGFR by 1.16 for Americans. Blood specimen (specimen) BLOOD SPECIMEN / Unknown 03/31/2019 5:07 EDT 03/31/2019 5:17 EDT Kori Nguyen MD CHEMISTRY & BLOOD GAS ORD ERABLES Final Result Performing Organization Address [facility]/ZIP Co de Phone Number [facility] [address] [place] [address] * TRIGLYCERIDE (03/31/2019 5:07 EDT) Triglycerides 128 mg/dl 03/31/2019 5:52 EDT [facility] Comment: Normal:<150 Borderline High:150-199 High:200-499 Very High:>bt=201 Blood specimen (specimen) BLOOD SPECIMEN / Unknown 03/31/2019 5:07 EDT 03/31/2019 5:17 EDT Result [facility] Leticia Galdamez MD CHEMISTRY & BLOOD GAS ORDERAB LES Final Result Performing Organization Address [facility]/ZIP Co de Phone Number [facility] [address] [place] [address] * (ABNORMAL) GLUCOSE, GLUCOMETER (03/31/2019 5:06 EDT) Glucose, Fingerstick 157(H) 70 - 100 mg/dl 03/31/2019 5:08 EDT [facility] [employer] Supervisor ID [id number] 03/31/2019 5:08 EDT [facility] Comment:Test Performed by [facility] Services BLOOD SPECIMEN / Unknown 03/31/2019 5:06 EDT 03/31/2019 5:08 EDT Leticia Galdamez MD CHEMISTRY & BLOOD GAS ORDERAB LES Final Result Performing Organization Address City/[facility]/ZIP Co de Phone Number [facility] [address] [place] [address] * (ABNORMAL) GLUCOSE, GLUCOMETER (03/30/2019 23:05 EDT) Glucose, Fingerstick 145(H) 70 - 100 mg/dl 03/30/2019 23:06 EDT [facility] [employer]visor ID [id number] 03/30/2019 23:06 EDT [facility] Comment:Test Performed by Nu ing Services BLOOD SPECIMEN / Unknown 03/30/2019 23:05 EDT 03/30/2019 23:06 EDT us Leticia Galdamez MD CHEMISTRY & BLOOD GAS ORDERAB LES Final Result Performing Organization Address [facility] de Phone Number [facility] [address] [place] [address] * (ABNORMAL) ELECTROLYTES (03/30/2019 16:55 EDT) Pathologist [facility] Sodium 141 136 - 145 mEq/L 03/30/2019 17:17 EDT [facility] Potassium 3.3(L) 3.5 - 5.0 mEq/L 03/30/2019 17:17 T [facility] Chloride 106 96 - 110 mEq/L 03/30/2019 17:17 T [facility] CO2 29 22 - 32 mEq/L 03/30/2019 17:17 T [facility] Blood specimen (specimen) BLOOD SPECIMEN / Unknown 03/30/2019 16:55 EDT 03/30/2019 16:59 EDT us Ayaan SMITH CHEMISTRY & BLOOD GAS ORDERAB LES Final Result Performing Organization Address [facility] Co de Phone Number [facility] [address] [place] [address] * (ABNORMAL) COMPLETE BLOOD COUNT (03/30/2019 16:55 EDT) WBC 2.60(L) 4.0 - 10.4 K/cmm 03/30/2019 17:15 T [facility] RBC 2.43(L) 4.36 - 5.78 M/cmm 03/30/2019 17:15 EDT [facility] Hemoglobin 7.6(L) 13.8 - 17.3 gm/dl 03/30/2019 17:15 [facility] HCT 22.5(L) 39.5 - 50.2 % 03/30/2019 17:15 [facility] MCV 93 81 - 95 fl 03/30/2019 17:15 [facility] MCH 31.3 27.6 - 33.0 pg 03/30/2019 17:15 [facility] MCHC 33.8 32.8 - 36.4 gm/dl 03/30/2019 17:15 [facility] RDW-CV 16.0(H) <14.2 % 03/30/2019 17:15 [facility] RDW-SD 49.0(H) <46.0 fl 03/30/2019 17:15 [facility] PLT 118(L) 141 - 377 K/cmm 03/30/2019 17:15 [facility] MPV 13.0(H) 9.5 - 12.7 fl 03/30/2019 17:15 [facility] Blood specimen (specimen) BLOOD SPECIMEN / Unknown 03/30/2019 16:55 EDT 03/30/2019 16:59 EDT us Ayaan BLANCBS HEMATOLOGY & PF4 ORDERABLES F inal Result [facility] [address] [place] [address] * (ABNORMAL) GLUCOSE, GLUCOMETER (03/30/2019 16:54 EDT) Glucose, Fingerstick 137(H) 70 - 100 mg/dl 03/30/2019 16:55 T [facility] [employer]visor ID [id number] 03/30/2019 16:55 T [facility] Comment:[facility] BLOOD SPECIMEN / Unknown 03/30/2019 16:54 EDT 03/30/2019 16:55 EDT us Leticia Galdamez MD CHEMISTRY & BLOOD GAS ORDERAB LES Final Result [facility] [address] [place] [address] * (ABNORMAL) GLUCOSE, GLUCOMETER (03/30/2019 12:18 EDT) Glucose, Fingerstick 150(H) 70 - 100 mg/dl 03/30/2019 12:19 EDT [facility] [employer]visor ID [id number] 03/30/2019 12:19 EDT [facility] Comment:Test Performed by Nu rsing Services BLOOD SPECIMEN / Unknown 03/30/2019 12:18 EDT 03/30/2019 12:19 EDT us Leticia Galdamez MD CHEMISTRY & BLOOD GAS ORDERAB LES Final Result Performing Organization Address City/[facility]/ZIP Co de Phone Number [facility] [address] [place] [address] * (ABNORMAL) GLUCOSE, GLUCOMETER (03/30/2019 5:56 EDT) Glucose, Fingerstick 176(H) 70 - 100 mg/dl 03/30/2019 12:18 EDT [facility] [employer]visor ID [id number] 03/30/2019 12:18 EDT [facility] Comment:[facility] BLOOD SPECIMEN / Unknown 03/30/2019 5:56 EDT 03/30/2019 12:18 EDT us Leticia Galdamez MD CHEMISTRY & BLOOD GAS ORDERAB LES Final Result [facility] [address] [place] [address] * (ABNORMAL) COMPLETE BLOOD COUNT (03/30/2019 3:54 EDT) WBC 2.71(L) 4.0 - 10.4 K/cmm 03/30/2019 4:33 EDT [facility] RBC 2.48(L) 4.36 - 5.78 M/cmm 03/30/2019 4:33 EDT [facility] Hemoglobin 7.9(L) 13.8 - 17.3 gm/dl 03/30/2019 4:33 EDT [facility] HCT 22.8(L) 39.5 - 50.2 % 03/30/2019 4:33 EDT [facility] MCV 92 81 - 95 fl 03/30/2019 4:33 EDT [facility] MCH 31.9 27.6 - 33.0 pg 03/30/2019 4:33 EDT [facility] MCHC 34.6 32.8 - 36.4 gm/dl 03/30/2019 4:33 [facility] RDW-CV 15.9(H) <14.2 % 03/30/2019 4:33 [facility] RDW-SD 48.2(H) <46.0 fl 03/30/2019 4:33 [facility] PLT 120(L) 141 - 377 K/cmm 03/30/2019 4:33 [facility] MPV 12.9(H) 9.5 - 12.7 fl 03/30/2019 4:33 [facility] [facility] BLOOD SPECIMEN / Unknown 03/30/2019 3:54 EDT 03/30/2019 4:11 EDT us Ayaan BLANCBS HEMATOLOGY & PF4 ORDERABLES F inal Result [facility] [address] [place] [id number] * MAGNESIUM (03/30/2019 3:54 EDT) Magnesium 1.9 1.7 - 2.8 mg/dl 03/30/2019 4:29 EDT [facility] Blood specimen (specimen) BLOOD SPECIMEN / Unknown 03/30/2019 3:54 EDT 03/30/2019 4:11 EDT us Kori Nguyen MD CHEMISTRY & BLOOD GAS ORD ERABLES Final Result Performing Organization Address City/[facility]/ZIP Co de Phone Number [facility] [address] [place] [address] * (ABNORMAL) CALCIUM (03/30/2019 3:54 EDT) Calcium 7.6(L) 8.5 - 10.5 mg/dl 03/30/2019 4:29 EDT [facility] Calculated Calcium 9.2 8.5 - 10.5 mg/dl 03/30/2019 4:29 EDT [facility] Blood specimen (specimen) BLOOD SPECIMEN / Unknown 03/30/2019 3:54 EDT 03/30/2019 4:11 EDT us Kori Nguyen MD CHEMISTRY & BLOOD GAS ORD ERABLES Final Result Performing Organization Address [facility] Co de Phone Number [facility] [address] [place] [address] * PHOSPHORUS (03/30/2019 3:54 EDT) Phosphorus 3.7 2.5 - 4.5 mg/dl 03/30/2019 4:29 EDT [facility] Blood specimen (specimen) BLOOD SPECIMEN / Unknown 03/30/2019 3:54 EDT 03/30/2019 4:11 EDT us Kori Nguyen MD CHEMISTRY & BLOOD GAS ORD ERABLES Final Result Performing Organization Address City/[facility]/ZIP Co de Phone Number [facility] [address] [place] [address] * CREATININE (03/30/2019 3:54 EDT) Creatinine 1.21 0.66 - 1.25 mg/dl 03/30/2019 4:29 EDT [facility] GFR, Calculated 62 >60 ml/min/1.7 3m2 03/30/2019 4:29 EDT [facility] Comment: eGFR calculated using CKD-EPI equation for non Americans. Multiply eGFR by 1.16 for Americans. Blood specimen (specimen) BLOOD SPECIMEN / Unknown 03/30/2019 3:54 EDT 03/30/2019 4:11 EDT us Kori Nguyen MD CHEMISTRY & BLOOD GAS ORD ERABLES Final Result Performing Organization Address [facility] Co de Phone Number [facility] [address] [place] [address] * (ABNORMAL) ELECTROLYTES (03/30/2019 3:54 EDT) Sodium 141 136 - 145 mEq/L 03/30/2019 4:29 EDT [facility] Potassium 3.0(L) 3.5 - 5.0 mEq/L 03/30/2019 4:29 EDT [facility] Chloride 106 96 - 110 mEq/L 03/30/2019 4:29 EDT [facility] CO2 30 22 - 32 mEq/L 03/30/2019 4:29 EDT [facility] Blood specimen (specimen) BLOOD SPECIMEN / Unknown 03/30/2019 3:54 EDT 03/30/2019 4:11 EDT us Ayaan SIMTH CHEMISTRY & BLOOD GAS ORDERAB LES Final Result Performing Organization Address [facility] de Phone Number [facility] [address] [place] [address] * (ABNORMAL) GLUCOSE, GLUCOMETER (03/29/2019 23:05 EDT) Glucose, Fingerstick 157(H) 70 - 100 mg/dl 03/29/2019 23:10 EDT [facility] [employer] Supervisor [place] [id number] 03/29/2019 23:10 EDT [facility] Comment:Test Performed by [facility] Services BLOOD SPECIMEN / Unknown 03/29/2019 23:05 EDT 03/29/2019 23:10 EDT us Leticia Galdamez MD CHEMISTRY & BLOOD GAS ORDERAB LES Final Result Performing Organization Address City/[facility]/ZIP Co de Phone Number [facility] [address] [place] [address] * (ABNORMAL) GLUCOSE, GLUCOMETER (03/29/2019 17:38 EDT) Glucose, Fingerstick 127(H) 70 - 100 mg/dl 03/29/2019 17:39 EDT [facility] [employer] Supervisor ID [id number] 03/29/2019 17:39 EDT [facility] Comment:[facility] BLOOD SPECIMEN / Unknown 03/29/2019 17:38 EDT 03/29/2019 17:39 EDT us Leticia Galdamez MD CHEMISTRY & BLOOD GAS ORDERAB LES Final Result [facility] [address] [place] [address] * CT CHEST (PE) PROTOCOL W CONTRAST [...] of bilateral pleural effusions Domenica High MD [facility] CT ORDERABLES Final Result * (ABNORMAL) COMPLETE BLOOD COUNT (03/29/2019 15:31 EDT) WBC 2.78(L) 4.0 - 10.4 K/cmm 03/29/2019 16:13 [facility] RBC 2.71(L) 4.36 - 5.78 M/cmm 03/29/2019 16:13 [facility] Hemoglobin 8.5(L) 13.8 - 17.3 gm/dl 03/29/2019 16:13 [facility] HCT 24.5(L) 39.5 - 50.2 % 03/29/2019 16:13 [facility] MCV 90 81 - 95 fl 03/29/2019 16:13 [facility] MCH 31.4 27.6 - 33.0 pg 03/29/2019 16:13 [facility] MCHC 34.7 32.8 - 36.4 gm/dl 03/29/2019 16:13 [facility] RDW-CV 15.8(H) <14.2 % 03/29/2019 16:13 EDT [facility] RDW-SD 48.6(H) <46.0 fl 03/29/2019 16:13 EDT [facility] PLT 130(L) 141 - 377 K/cmm 03/29/2019 16:13 EDT [facility] MPV 12.6 9.5 - 12.7 fl 03/29/2019 16:13 EDT [facility] Blood specimen (specimen) BLOOD SPECIMEN / Unknown 03/29/2019 15:31 EDT 03/29/2019 15:51 EDT Ayaan SMITH HEMATOLOGY & PF4 ORDERABLES F inal Result Performing Organization Address City/[facility] Co de Phone Number [facility] [address] [place] [address] * ELECTROLYTES (03/29/2019 15:31 EDT) Sodium 140 136 - 145 mEq/L 03/29/2019 16:10 EDT [facility] Potassium 3.5 3.5 - 5.0 mEq/L 03/29/2019 16:10 EDT [facility] Chloride 106 96 - 110 mEq/L 03/29/2019 16:10 EDT [facility] CO2 27 22 - 32 mEq/L 03/29/2019 16:10 EDT [facility] Blood specimen (specimen) BLOOD SPECIMEN / Unknown 03/29/2019 15:31 EDT 03/29/2019 15:51 EDT Ayaan SMITH CHEMISTRY & BLOOD GAS ORDERAB LES Final Result Performing Organization Address [facility]/ZIP Co de Phone Number [facility] [address] [place] [address] * PORTABLE CHEST 1 VIEW (03/29/2019 14:36 [...] 7.48(H) 7.35 - 7.45 03/29/2019 14:26 EDT [facility] pCO2, i-STAT 33(L) 35 - 45 mmHg 03/29/2019 14:26 EDT [facility] pO2, i-STAT 54(L) 80 - 105 mmHg 03/29/2019 14:26 [facility] TCO2, i-STAT 25 23 - 27 mEq/L 03/29/2019 14:26 [facility] O2 Saturation 90(L) 95 - 98 % 03/29/2019 14:26 [facility] Base Excess, i-STAT 1 03/29/2019 14:26 [facility] Sample Type ARTERIAL 03/29/2019 14:26 [facility] fish technologist ID [id number] 03/29/2019 14:26 [facility] Comment: Test Performed by Respiratory For non-arterial reference ranges, please see ISTAT procedure. BLOOD SPECIMEN / Unknown 03/29/2019 14:22 EDT 03/29/2019 14:26 EDT us Leticia Galdamez MD CHEMISTRY & BLOOD GAS ORDERAB LES Final Result [facility] [address] [place] [address] * (ABNORMAL) GLUCOSE, GLUCOMETER (03/29/2019 11:28 EDT) Glucose, Fingerstick 177(H) 70 - 100 mg/dl 03/29/2019 11:29 EDT [facility] [employer] Supervisor [place] [id number] 03/29/2019 11:29 EDT [facility] Comment:Test Performed by Nu rsing Services BLOOD SPECIMEN / Unknown 03/29/2019 11:28 EDT 03/29/2019 11:29 EDT us Leticia Galdamez MD CHEMISTRY & BLOOD GAS ORDERAB LES Final Result [facility] [address] [place] [address] * (ABNORMAL) GLUCOSE, GLUCOMETER (03/29/2019 5:35 EDT) Glucose, Fingerstick 176(H) 70 - 100 mg/dl 03/29/2019 5:40 [facility] [employer] Supervisor ID [id number] 03/29/2019 5:40 [facility] Comment:Test Performed by [facility] BLOOD SPECIMEN / Unknown 03/29/2019 5:35 EDT 03/29/2019 5:40 EDT Leticia Galdamez MD CHEMISTRY & BLOOD GAS ORDERAB LES Final Result [facility] [address] [place] [address] * (ABNORMAL) COMPLETE BLOOD COUNT (03/29/2019 4:23 EDT) WBC 2.41(L) 4.0 - 10.4 K/cmm 03/29/2019 4:49 [facility] RBC 2.65(L) 4.36 - 5.78 M/cmm 03/29/2019 4:49 [facility] Hemoglobin 8.3(L) 13.8 - 17.3 gm/dl 03/29/2019 4:49 [facility] HCT 23.8(L) 39.5 - 50.2 % 03/29/2019 4:49 [facility] MCV 90 81 - 95 fl 03/29/2019 4:49 [facility] MCH 31.3 27.6 - 33.0 pg 03/29/2019 4:49 [facility] MCHC 34.9 32.8 - 36.4 gm/dl 03/29/2019 4:49 [facility] RDW-CV 15.7(H) <14.2 % 03/29/2019 4:49 [facility] RDW-SD 48.9(H) <46.0 fl 03/29/2019 4:49 [facility] PLT 133(L) 141 - 377 K/cmm 03/29/2019 4:49 [facility] MPV 12.8(H) 9.5 - 12.7 fl 03/29/2019 4:49 EDT [facility] Blood specimen (specimen) BLOOD SPECIMEN / Unknown 03/29/2019 4:23 EDT 03/29/2019 4:27 EDT Ayaan SMITH HEMATOLOGY & PF4 ORDERABLES F inal Result Performing Organization Address [facility]/ZIP Co de Phone Number [facility] [address] [place] [address] * ELECTROLYTES (03/29/2019 4:23 EDT) Sodium 143 136 - 145 mEq/L 03/29/2019 5:08 EDT [facility] Potassium 3.6 3.5 - 5.0 mEq/L 03/29/2019 5:08 EDT [facility] Chloride 110 96 - 110 mEq/L 03/29/2019 5:08 EDT [facility] CO2 26 22 - 32 mEq/L 03/29/2019 5:08 EDT [facility] Blood specimen (specimen) BLOOD SPECIMEN / Unknown 03/29/2019 4:23 EDT 03/29/2019 4:27 EDT Ayaan SMITH CHEMISTRY & BLOOD GAS ORDERAB LES Final Result Performing Organization Address [facility] Co de Phone Number [facility] [address] [place] [address] * MAGNESIUM (03/29/2019 4:23 EDT) Magnesium 1.9 1.7 - 2.8 mg/dl 03/29/2019 5:08 EDT [facility] Blood specimen (specimen) BLOOD SPECIMEN / Unknown 03/29/2019 4:23 EDT 03/29/2019 4:27 EDT Kori Nguyen MD CHEMISTRY & BLOOD GAS ORD ERABLES Final Result Performing Organization Address City/[facility]/ZIP Co de Phone Number [facility] [address] [place] [address] * (ABNORMAL) CALCIUM (03/29/2019 4:23 EDT) Calcium 7.7(L) 8.5 - 10.5 mg/dl 03/29/2019 5:08 EDT [facility] Calculated Calcium 9.3 8.5 - 10.5 mg/dl 03/29/2019 5:08 EDT [facility] Blood specimen (specimen) BLOOD SPECIMEN / Unknown 03/29/2019 4:23 EDT 03/29/2019 4:27 EDT us Kori Nguyen MD CHEMISTRY & BLOOD GAS ORD ERABLES Final Result [facility] [address] [place] [address] * (ABNORMAL) PHOSPHORUS (03/29/2019 4:23 EDT) Phosphorus 2.3(L) 2.5 - 4.5 mg/dl 03/29/2019 5:08 EDT [facility] Blood specimen (specimen) BLOOD SPECIMEN / Unknown 03/29/2019 4:23 EDT 03/29/2019 4:27 EDT us Kori Nguyen MD CHEMISTRY & BLOOD GAS ORD ERABLES Final Result [facility] [address] [place] [address] * (ABNORMAL) CREATININE (03/29/2019 4:23 EDT) Creatinine 1.31(H) 0.66 - 1.25 mg/dl 03/29/2019 5:08 EDT [facility] GFR, Calculated 57(L) >60 ml/min/1.7 3m2 03/29/2019 5:08 EDT [facility] Comment: eGFR calculated using CKD-EPI equation for non Americans. Multiply eGFR by 1.16 for Americans. Blood specimen (specimen) BLOOD SPECIMEN / Unknown 03/29/2019 4:23 EDT 03/29/2019 4:27 EDT us Kori Nguyen MD CHEMISTRY & BLOOD GAS ORD ERABLES Final Result Performing Organization Address [facility]/ZIP Co de Phone Number [facility] [address] [place] [address] * PROCALCITONIN, INFECTIOUS DISEASE USE ONLY (03/29/2019 4:23 EDT) Procalcitonin, Infectious Disease Use Only 0.63 ng/ml 03/29/2019 9:41 EDT [facility] Comment: Procalcitonin levels <0.5 ng/ml represent a low risk of severe sepsis and/or septic shock. Blood specimen (specimen) BLOOD SPECIMEN / Unknown 03/29/2019 4:23 EDT 03/29/2019 4:27 EDT us Leticia Galdamez MD CHEMISTRY & BLOOD GAS ORDERAB LES Final Result Performing Organization Address [facility] Co de Phone Number [facility] [address] [place] [address] * (ABNORMAL) GLUCOSE, GLUCOMETER (03/28/2019 23:52 EDT) Glucose, Fingerstick 143(H) 70 - 100 mg/dl 03/29/2019 22:23 EDT [facility] [employer] Supervisor ID [id number] 03/29/2019 22:23 EDT [facility] Comment:Test Performed by [facility] Services BLOOD SPECIMEN / Unknown 03/28/2019 23:52 EDT 03/29/2019 22:23 EDT us Leticia Galdamez MD CHEMISTRY & BLOOD GAS ORDERAB LES Final Result Performing Organization Address City/[facility] Co de Phone Number [facility] [address] [place] [address] * (ABNORMAL) ELECTROLYTES (03/28/2019 22:39 EDT) Sodium 143 136 - 145 mEq/L 03/28/2019 23:21 EDT [facility] Potassium 3.3(L) 3.5 - 5.0 mEq/L 03/28/2019 23:21 EDT [facility] Chloride 110 96 - 110 mEq/L 03/28/2019 23:21 EDT [facility] CO2 28 22 - 32 mEq/L 03/28/2019 23:21 EDT [facility] Blood specimen (specimen) BLOOD SPECIMEN / Unknown 03/28/2019 22:39 EDT 03/28/2019 23:03 EDT Ayaan SMITH CHEMISTRY & BLOOD GAS ORDERAB LES Final Result Performing Organization Address City/[facility]/ZIP Co de Phone Number [facility] [address] [place] [address] * (ABNORMAL) GLUCOSE, GLUCOMETER (03/28/2019 17:50 EDT) [facility] Signature Glucose, Fingerstick 129(H) 70 - 100 mg/dl 03/28/2019 18:38 EDT [facility] [employer] Supervisor ID [id number] 03/28/2019 18:38 EDT [facility] Comment:[facility] BLOOD SPECIMEN / Unknown 03/28/2019 17:50 EDT 03/28/2019 18:38 EDT Leticia Galdamez MD CHEMISTRY & BLOOD GAS ORDERAB LES Final Result [facility] [address] [place] [address] * TRANSFUSE RED BLOOD CELLS (03/28/2019 17:47 [...] BLOOD CELLS (03/28/2019 14:37 EDT) Product Code [id number] [facility] Donor Number [id number] U [facility] BLOOD [facility] Unit ABO O [facility] Unit Rh POS [facility] Unit Status TR^Transfuse [facility] Product Expiration Date [id number] [facility] Unit Blood Type Code 5100 [facility] Coding System [id number] [facility] B[facility] B[facility] Blood specimen (specimen) 03/28/2019 14:37 EDT us Jonatan Martinez MD BLOOD BANK ORDERABLES Final R esult Performing Organization Address [facility] Co de Phone Number [facility] [address] [place] [address] * (ABNORMAL) GLUCOSE, GLUCOMETER (03/28/2019 13:58 EDT) Glucose, Fingerstick 151(H) 70 - 100 mg/dl 03/28/2019 14:01 EDT [facility] [employer] Supervisor ID [id number] 03/28/2019 14:01 EDT [facility] Comment:Test Performed by [facility] BLOOD SPECIMEN / Unknown 03/28/2019 13:58 EDT 03/28/2019 14:01 EDT us Leticia Galdamez MD CHEMISTRY & BLOOD GAS ORDERAB LES Final Result Performing Organization Address [facility] Co de Phone Number [facility] [address] [place] [address] * PORTABLE CHEST 1 VIEW (03/28/2019 13:50 [...] 2.53(L) 4.0 - 10.4 K/cmm 03/28/2019 14:32 [facility] RBC 2.09(L) 4.36 - 5.78 M/cmm 03/28/2019 14:32 [facility] Hemoglobin 6.7(LL) 13.8 - 17.3 gm/dl 03/28/2019 14:32 [facility] HCT 19.6(LL) 39.5 - 50.2 % 03/28/2019 14:32 [facility] MCV 94 81 - 95 fl 03/28/2019 14:32 [facility] MCH 32.1 27.6 - 33.0 pg 03/28/2019 14:32 [facility] MCHC 34.2 32.8 - 36.4 gm/dl 03/28/2019 14:32 [facility] RDW-CV 15.7(H) <14.2 % 03/28/2019 14:32 [facility] RDW-SD 51.6(H) <46.0 fl 03/28/2019 14:32 [facility] PLT 135(L) 141 - 377 K/cmm 03/28/2019 14:32 [facility] MPV 13.0(H) 9.5 - 12.7 fl 03/28/2019 14:32 [facility] Nucleated RBC's 100 WBC'S 9 14:32 [facility] Blood specimen (specimen) BLOOD SPECIMEN / Unknown 03/28/2019 13:26 EDT 03/28/2019 14:14 EDT Ayaan SMITH HEMATOLOGY & PF4 ORDERABLES F inal Result [facility] [address] [place] [address] * (ABNORMAL) ELECTROLYTES (03/28/2019 13:26 EDT) Sodium 139 136 - 145 mEq/L 03/28/2019 14:59 [facility] Potassium 3.3(L) 3.5 - 5.0 mEq/L 03/28/2019 14:59 T [facility] Chloride 106 96 - 110 mEq/L 03/28/2019 14:59 T [facility] CO2 24 22 - 32 mEq/L 03/28/2019 14:59 [facility] Blood specimen (specimen) BLOOD SPECIMEN / Unknown 03/28/2019 13:26 EDT 03/28/2019 14:14 EDT Ayaan SMITH CHEMISTRY & BLOOD GAS ORDERAB LES Final Result [facility] [address] [place] [address] * TRANSFUSION RECORD - SCANNED (03/28/2019 8:45 EDT) 03/28/2019 8:45 EDT us Scan 2 Assistant Operations Manager LAB INFO SERVICE AND SUPPOR T & PHONE RESULT Final Result * (ABNORMAL) GLUCOSE, GLUCOMETER (03/28/2019 6:16 EDT) Glucose, Fingerstick 129(H) 70 - 100 mg/dl 03/28/2019 6:20 EDT [facility] [employer] Supervisor ID [id number] 03/28/2019 6:20 EDT [facility] Comment:Test Performed by Nu ing Services BLOOD SPECIMEN / Unknown 03/28/2019 6:16 EDT 03/28/2019 6:20 EDT us Leticia Galdamez MD CHEMISTRY & BLOOD GAS ORDERAB LES Final Result Performing Organization Address [facility]/ZIP Co de Phone Number [facility] [address] [place] [address] * MAGNESIUM (03/28/2019 2:08 EDT) Magnesium 1.9 1.7 - 2.8 mg/dl 03/28/2019 2:50 EDT [facility] Blood specimen (specimen) BLOOD SPECIMEN / Unknown 03/28/2019 2:08 EDT 03/28/2019 2:29 EDT us Kori Nguyen MD CHEMISTRY & BLOOD GAS ORD ERABLES Final Result [facility] [address] [place] [address] * (ABNORMAL) COMPLETE BLOOD COUNT (03/28/2019 2:08 EDT) WBC 3.24(L) 4.0 - 10.4 K/cmm 03/28/2019 2:44 [facility] RBC 2.33(L) 4.36 - 5.78 M/cmm 03/28/2019 2:44 [facility] Hemoglobin 7.3(L) 13.8 - 17.3 gm/dl 03/28/2019 2:44 [facility] HCT 21.4(L) 39.5 - 50.2 % 03/28/2019 2:44 [facility] MCV 92 81 - 95 fl 03/28/2019 2:44 [facility] MCH 31.3 27.6 - 33.0 pg 03/28/2019 2:44 [facility] MCHC 34.1 32.8 - 36.4 gm/dl 03/28/2019 2:44 [facility] RDW-CV 15.7(H) <14.2 % 03/28/2019 2:44 [facility] RDW-SD 50.6(H) <46.0 fl 03/28/2019 2:44 [facility] PLT 142 141 - 377 K/cmm 03/28/2019 2:44 [facility] MPV 12.6 9.5 - 12.7 fl 03/28/2019 2:44 [facility] Nucleated RBC's 1 /100 WBC'S 9 2:44 [facility] Blood specimen (specimen) BLOOD SPECIMEN / Unknown 03/28/2019 2:08 EDT 03/28/2019 2:29 EDT us Domenica High MD HEMATOLOGY & PF4 ORDERABLES Fin al Result [facility] [address] [place] [address] * (ABNORMAL) CALCIUM (03/28/2019 2:08 EDT) Calcium 7.6(L) 8.5 - 10.5 mg/dl 03/28/2019 2:50 EDT [facility] Calculated Calcium 9.3 8.5 - 10.5 mg/dl 03/28/2019 2:50 EDT [facility] Blood specimen (specimen) BLOOD SPECIMEN / Unknown 03/28/2019 2:08 EDT 03/28/2019 2:29 EDT us Kori Nguyen MD CHEMISTRY & BLOOD GAS ORD ERABLES Final Result Performing Organization Address City/[facility]/ZIP Co de Phone Number [facility] [address] [place] [address] * (ABNORMAL) PHOSPHORUS (03/28/2019 2:08 EDT) Phosphorus 2.2(L) 2.5 - 4.5 mg/dl 03/28/2019 2:50 EDT [facility] Blood specimen (specimen) BLOOD SPECIMEN / Unknown 03/28/2019 2:08 EDT 03/28/2019 2:29 EDT us Kori Nguyen MD CHEMISTRY & BLOOD GAS ORD ERABLES Final Result Performing Organization Address [facility] Co de Phone Number [facility] [address] [place] [address] * (ABNORMAL) CREATININE (03/28/2019 2:08 EDT) Creatinine 1.37(H) 0.66 - 1.25 mg/dl 03/28/2019 2:50 EDT [facility] GFR, Calculated 54(L) >60 ml/min/1.7 3m2 03/28/2019 2:50 EDT [facility] Comment: eGFR calculated using CKD-EPI equation for non Americans. Multiply eGFR by 1.16 for Americans. Blood specimen (specimen) BLOOD SPECIMEN / Unknown 03/28/2019 2:08 EDT 03/28/2019 2:29 EDT us Kori Nguyen MD CHEMISTRY & BLOOD GAS ORD ERABLES Final Result Performing Organization Address City/[facility]/ZIP Co de Phone Number [facility] [address] [place] [address] * (ABNORMAL) ELECTROLYTES (03/28/2019 2:08 EDT) Sodium 142 136 - 145 mEq/L 03/28/2019 2:50 EDT [facility] Potassium 4.1 3.5 - 5.0 mEq/L 03/28/2019 2:50 EDT [facility] Chloride 112(H) 96 - 110 mEq/L 03/28/2019 2:50 EDT [facility] CO2 27 22 - 32 mEq/L 03/28/2019 2:50 EDT [facility] Blood specimen (specimen) BLOOD SPECIMEN / Unknown 03/28/2019 2:08 EDT 03/28/2019 2:29 EDT us Kori Nguyen MD CHEMISTRY & BLOOD GAS ORD ERABLES Final Result Performing Organization Address [facility]/ZIP Co de Phone Number [facility] [address] [place] [address] * TRIGLYCERIDE (03/28/2019 2:08 EDT) Triglycerides 125 mg/dl 03/28/2019 2:50 EDT [facility] Comment: Normal:<150 Borderline High:150-199 High:200-499 Very High:>ej=[id number] Blood specimen (specimen) BLOOD SPECIMEN / Unknown 03/28/2019 2:08 EDT 03/28/2019 2:29 EDT us Leticia Galdamez MD CHEMISTRY & BLOOD GAS ORDERAB LES Final Result [facility] [address] [place] [address] * (ABNORMAL) GLUCOSE, GLUCOMETER (03/27/2019 23:29 EDT) Glucose, Fingerstick 196(H) 70 - 100 mg/dl 03/27/2019 23:33 EDT [facility] [employer] Supervisor ID [id number] 03/27/2019 23:33 EDT [facility] Comment:Test Performed by Nu rsing Services BLOOD SPECIMEN / Unknown 03/27/2019 23:29 EDT 03/27/2019 23:33 EDT us Leticia Galdamez MD CHEMISTRY & BLOOD GAS ORDERAB LES Final Result Performing Organization Address [facility] Co de Phone Number [facility] [address] [place] [address] * (ABNORMAL) ELECTROLYTES (03/27/2019 20:16 EDT) Sodium 142 136 - 145 mEq/L 03/27/2019 20:58 EDT [facility] Potassium 3.2(L) 3.5 - 5.0 mEq/L 03/27/2019 20:58 EDT [facility] Chloride 109 96 - 110 mEq/L 03/27/2019 20:58 EDT [facility] CO2 28 22 - 32 mEq/L 03/27/2019 20:58 EDT [facility] Blood specimen (specimen) BLOOD SPECIMEN / Unknown 03/27/2019 20:16 EDT 03/27/2019 20:40 EDT us Kori Nguyen MD CHEMISTRY & BLOOD GAS ORD ERABLES Final Result Performing Organization Address [facility] Phone Number [facility] [address] [place] [address] * (ABNORMAL) GLUCOSE, GLUCOMETER (03/27/2019 17:44 EDT) Glucose, Fingerstick 159(H) 70 - 100 mg/dl 03/27/2019 17:48 EDT [facility] [employer] Supervisor ID [id number] 03/27/2019 17:48 EDT [facility] Comment:[facility] BLOOD SPECIMEN / Unknown 03/27/2019 17:44 EDT 03/27/2019 17:48 EDT us Leticia Galdamez MD CHEMISTRY & BLOOD GAS ORDERAB LES Final Result Performing Organization Address City/[facility]/ZIP Co de Phone Number [facility] [address] [place] [address] * TRIGLYCERIDE (03/27/2019 13:42 EDT) Pathologist [facility] Triglycerides 161 mg/dl 03/27/2019 14:23 EDT [facility] Comment: Normal:<150 Borderline High:150-199 High:200-499 Very High:>fu=[id number] BLOOD SPECIMEN / Unknown 03/27/2019 13:42 EDT 03/27/2019 14:01 EDT us Kori Nguyen MD CHEMISTRY & BLOOD GAS ORD ERABLES Final Result Performing Organization Address City/[facility]/ZIP Co de Phone Number [facility] [address] [place] [address] * ELECTROLYTES (03/27/2019 13:42 EDT) [facility] Sodium 141 136 - 145 mEq/L 03/27/2019 14:23 EDT [facility] Potassium 3.5 3.5 - 5.0 mEq/L 03/27/2019 14:23 T [facility] Chloride 107 96 - 110 mEq/L 03/27/2019 14:23 T [facility] CO2 27 22 - 32 mEq/L 03/27/2019 14:23 T [facility] Blood specimen (specimen) BLOOD SPECIMEN / Unknown 03/27/2019 13:42 EDT 03/27/2019 14:01 EDT us Kori Nguyen MD CHEMISTRY & BLOOD GAS ORD ERABLES Final Result [facility] [address] [place] [address] * (ABNORMAL) COMPLETE BLOOD COUNT (03/27/2019 13:42 EDT) Pathologist [facility] WBC 4.06 4.0 - 10.4 K/cmm 03/27/2019 14:18 EDT [facility] RBC 2.63(L) 4.36 - 5.78 M/cmm 03/27/2019 14:18 [facility] Hemoglobin 8.4(L) 13.8 - 17.3 gm/dl 03/27/2019 14:18 [facility] HCT 24.5(L) 39.5 - 50.2 % 03/27/2019 14:18 [facility] MCV 93 81 - 95 fl 03/27/2019 14:18 [facility] MCH 31.9 27.6 - 33.0 pg 03/27/2019 14:18 [facility] MCHC 34.3 32.8 - 36.4 gm/dl 03/27/2019 14:18 [facility] RDW-CV 15.9(H) <14.2 % 03/27/2019 14:18 [facility] RDW-SD 51.8(H) <46.0 fl 03/27/2019 14:18 [facility] PLT 147 141 - 377 K/cmm 03/27/2019 14:18 [facility] MPV 12.8(H) 9.5 - 12.7 fl 03/27/2019 14:18 [facility] Blood specimen (specimen) BLOOD SPECIMEN / Unknown 03/27/2019 13:42 EDT 03/27/2019 14:01 EDT Ayaan SMITH HEMATOLOGY & PF4 ORDERABLES F inal Result [facility] [address] [place] [address] * (ABNORMAL) GLUCOSE, GLUCOMETER (03/27/2019 12:14 EDT) Glucose, Fingerstick 141(H) 70 - 100 mg/dl 03/27/2019 12:18 EDT [facility] [employer] Supervisor ID [id number] 03/27/2019 12:18 T [facility] Comment:[facility] BLOOD SPECIMEN / Unknown 03/27/2019 12:14 EDT 03/27/2019 12:18 EDT us Leticia Galdamez MD CHEMISTRY & BLOOD GAS ORDERAB LES Final Result Performing Organization Address [facility]/ZIP Co de Phone Number [facility] [address] [place] [address] * TRANSFUSE RED BLOOD CELLS (03/27/2019 8:53 EDT) Blood specimen (specimen) Flex Flores MD NURSING TREATMENT - BLOOD ADMIN ISTRATION Final Result * TRANSFUSE RED BLOOD CELLS (03/27/2019 8:53 EDT) Blood specimen (specimen) us Flex Flores MD NURSING TREATMENT - BLOOD ADMIN ISTRATION Final Result * INPATIENT ADD-ON (03/27/2019 7:10 EDT) Tests to be added ELECTROLYTES 03/27/2019 7:07 EDT [facility] Number for problems M4 03/27/2019 7:14 EDT [facility] Accession number [id number] 03/27/2019 7:14 EDT [facility] TOPOGRAPHY UNKNOWN / Unknown 03/27/2019 7:10 EDT 03/27/2019 7:14 EDT Ayaan BLANCBS HEMATOLOGY & PF4 ORDERABLES F inal Result Performing Organization Address City/[facility] Co de Phone Number [facility] [address] [place] [address] * TYPE AND SCREEN (03/27/2019 6:00 EDT) Antibody Screen Negative [facility] Comment: Patient is electronic crossmatch eligible. Units available upon request for transfusion. Specimen Expires: 03/30/2019 @ 23:59 [facility] ABO O [facility] Rh Factor Positive [facility] Blood specimen (specimen) 03/27/2019 6:00 EDT Flex Flores MD BLOOD BANK TESTS Final Result Performing Organization Address [facility]/ZIP Co de Phone Number [facility] [address] [place] [address] * MRSA PCR (03/27/2019 6:00 EDT) Result Methicillin susceptible Staphylococcus aureus (MSSA) DNA detected by PCR. 03/28/2019 11:40 EDT [facility] Specimen of unknown material (specimen) NASAL ROUTE / Unknown 03/27/2019 6:00 EDT 03/27/2019 22:37 EDT us Kori Nguyen MD MICROBIOLOGY - GENERAL OR DERABLES Final Result Performing Organization Address [facility] Co de Phone Number [facility] [address] [place] [address] * PREPARE RED BLOOD CELLS (03/27/2019 5:47 EDT) Product Code [id number] [facility] Donor Number [id number] [facility] Unit ABO O [facility] Unit Rh POS [facility] Unit Status PT^Presumed Transfuse [facility] Product Expiration Date [id number] [facility] Unit Blood Type Code 5100 [facility] Coding System [id number] [facility] Blood specimen (specimen) 03/27/2019 5:47 EDT us Flex Flores MD BLOOD BANK ORDERABLES Final Res ult Performing Organization Address [facility] Co de Phone Number [facility] [address] [place] [address] * (ABNORMAL) GLUCOSE, GLUCOMETER (03/27/2019 4:57 EDT) Glucose, Fingerstick 110(H) 70 - 100 mg/dl 03/27/2019 5:03 EDT [facility] [employer]visor ID [id number] 03/27/2019 5:03 EDT [facility] Comment:Test Performed by Nu ing Services BLOOD SPECIMEN / Unknown 03/27/2019 4:57 EDT 03/27/2019 5:03 EDT us Leticia Galdamez MD CHEMISTRY & BLOOD GAS ORDERAB LES Final Result Performing Organization Address City/[facility]/ZIP Co de Phone Number [facility] [address] [place] [address] * ELECTROLYTES (03/27/2019 4:52 EDT) Sodium 141 136 - 145 mEq/L 03/27/2019 7:55 EDT [facility] Potassium 3.6 3.5 - 5.0 mEq/L 03/27/2019 7:55 EDT [facility] Chloride 109 96 - 110 mEq/L 03/27/2019 7:55 EDT [facility] CO2 24 22 - 32 mEq/L 03/27/2019 7:55 EDT [facility] BLOOD SPECIMEN / Unknown 03/27/2019 4:52 EDT 03/27/2019 5:02 EDT us Ayaan SMITH CHEMISTRY & BLOOD GAS ORDERAB LES Final Result Performing Organization Address City/[facility]/ZIP Co de Phone Number [facility] [address] [place] [address] * MAGNESIUM (03/27/2019 4:52 EDT) Magnesium 2.1 1.7 - 2.8 mg/dl 03/27/2019 5:36 EDT [facility] Blood specimen (specimen) BLOOD SPECIMEN / Unknown 03/27/2019 4:52 EDT 03/27/2019 5:02 EDT us Kori Nguyen MD CHEMISTRY & BLOOD GAS ORD ERABLES Final Result Performing Organization Address City/[facility]/ZIP Co de Phone Number [facility] [address] [place] [address] * (ABNORMAL) COMPLETE BLOOD COUNT (03/27/2019 4:52 EDT) WBC 4.55 4.0 - 10.4 K/cmm 03/27/2019 5:37 [facility] RBC 2.08(L) 4.36 - 5.78 M/cmm 03/27/2019 5:37 [facility] Hemoglobin 6.6(LL) 13.8 - 17.3 gm/dl 03/27/2019 5:37 [facility] HCT 19.8(LL) 39.5 - 50.2 % 03/27/2019 5:37 [facility] MCV 95 81 - 95 fl 03/27/2019 5:37 [facility] MCH 31.7 27.6 - 33.0 pg 03/27/2019 5:37 [facility] MCHC 33.3 32.8 - 36.4 gm/dl 03/27/2019 5:37 [facility] RDW-CV 15.0(H) <14.2 % 03/27/2019 5:37 [facility] RDW-SD 50.0(H) <46.0 fl 03/27/2019 5:37 [facility] PLT 150 141 - 377 K/cmm 03/27/2019 5:37 [facility] MPV 12.9(H) 9.5 - 12.7 fl 03/27/2019 5:37 [facility] Blood specimen (specimen) BLOOD SPECIMEN / Unknown 03/27/2019 4:52 EDT 03/27/2019 5:02 EDT us Domenica High MD HEMATOLOGY & PF4 ORDERABLES Fin al Result [facility] [address] [place] [address] * (ABNORMAL) CALCIUM (03/27/2019 4:52 EDT) Calcium 7.4(L) 8.5 - 10.5 mg/dl 03/27/2019 5:36 EDT [facility] Calculated Calcium 9.1 8.5 - 10.5 mg/dl 03/27/2019 5:36 EDT [facility] Blood specimen (specimen) BLOOD SPECIMEN / Unknown 03/27/2019 4:52 EDT 03/27/2019 5:02 EDT us Kori Nguyen MD CHEMISTRY & BLOOD GAS ORD ERABLES Final Result Performing Organization Address City/[facility] Co de Phone Number [facility] [address] [place] [address] * PHOSPHORUS (03/27/2019 4:52 EDT) Phosphorus 4.2 2.5 - 4.5 mg/dl 03/27/2019 5:36 EDT [facility] Blood specimen (specimen) BLOOD SPECIMEN / Unknown 03/27/2019 4:52 EDT 03/27/2019 5:02 EDT us Kori Nguyen MD CHEMISTRY & BLOOD GAS ORD ERABLES Final Result Performing Organization Address [facility] de Phone Number [facility] [address] [place] [address] * (ABNORMAL) CREATININE (03/27/2019 4:52 EDT) Creatinine 1.39(H) 0.66 - 1.25 mg/dl 03/27/2019 5:36 EDT [facility] GFR, Calculated 53(L) >60 ml/min/1.7 3m2 03/27/2019 5:36 EDT [facility] Comment: eGFR calculated using CKD-EPI equation for non Americans. Multiply eGFR by 1.16 for Americans. Blood specimen (specimen) BLOOD SPECIMEN / Unknown 03/27/2019 4:52 EDT 03/27/2019 5:02 EDT us Kori Nguyen MD CHEMISTRY & BLOOD GAS ORD ERABLES Final Result Performing Organization Address City/[facility]/ZIP Co de Phone Number [facility] [address] [place] [address] * TSH (03/27/2019 4:52 EDT) TSH 3.50 0.47 - 4.68 uIU/ml 03/27/2019 6:06 EDT [facility] Comment: The results of this assay can be falsely lowered due to the consumption of Biotin. Blood specimen (specimen) BLOOD SPECIMEN / Unknown 03/27/2019 4:52 EDT 03/27/2019 5:02 EDT Leticia Galdamez MD CHEMISTRY & BLOOD GAS ORDERAB LES Final Result Performing Organization Address [facility]/ZIP Co de Phone Number [facility] [address] [place] [address] * PROCALCITONIN, INFECTIOUS DISEASE USE ONLY (03/27/2019 4:52 EDT) [facility] Procalcitonin, Infectious Disease Use Only 0.94 ng/ml 03/27/2019 9:55 EDT [facility] Comment: Procalcitonin levels <0.5 ng/ml represent a low risk of severe sepsis and/or septic shock. Blood specimen (specimen) BLOOD SPECIMEN / Unknown 03/27/2019 4:52 EDT 03/27/2019 5:02 EDT Ayaan SMITH CHEMISTRY & BLOOD GAS ORDERAB LES Final Result [facility] [address] [place] [address] * (ABNORMAL) GLUCOSE, GLUCOMETER (03/27/2019 0:55 EDT) Pathologist [facility] Glucose, Fingerstick 129(H) 70 - 100 mg/dl 03/27/2019 0:57 EDT [facility] [employer] Supervisor ID [id number] 03/27/2019 0:57 EDT [facility] Comment:[facility] BLOOD SPECIMEN / Unknown 03/27/2019 0:55 EDT 03/27/2019 0:57 EDT us Leticia Galdamez MD CHEMISTRY & BLOOD GAS ORDERAB LES Final Result [facility] [address] [place] [address] * ELECTROLYTES (03/26/2019 22:22 EDT) Sodium 138 136 - 145 mEq/L 03/26/2019 23:34 EDT [facility] Potassium 3.7 3.5 - 5.0 mEq/L 03/26/2019 23:34 EDT [facility] Chloride 108 96 - 110 mEq/L 03/26/2019 23:34 EDT [facility] CO2 26 22 - 32 mEq/L 03/26/2019 23:34 EDT [facility] Blood specimen (specimen) BLOOD SPECIMEN / Unknown 03/26/2019 22:22 EDT 03/26/2019 22:29 EDT us Kori Nguyen MD CHEMISTRY & BLOOD GAS ORD ERABLES Final Result Performing Organization Address [facility]/ZIP Co de Phone Number [facility] [address] [place] [address] * (ABNORMAL) GLUCOSE, GLUCOMETER (03/26/2019 17:54 EDT) Glucose, Fingerstick 141(H) 70 - 100 mg/dl 03/26/2019 18:08 EDT [facility] [employer] Supervisor ID [id number] 03/26/2019 18:08 EDT [facility] Comment:[facility] BLOOD SPECIMEN / Unknown 03/26/2019 17:54 EDT 03/26/2019 18:08 EDT us Leticia Galdamez MD CHEMISTRY & BLOOD GAS ORDERAB LES Final Result [facility] [address] [place] [address] * ELECTROLYTES (03/26/2019 16:09 EDT) Sodium 139 136 - 145 mEq/L 03/26/2019 16:46 T [facility] Potassium 3.7 3.5 - 5.0 mEq/L 03/26/2019 16:46 T [facility] Chloride 104 96 - 110 mEq/L 03/26/2019 16:46 T [facility] CO2 28 22 - 32 mEq/L 03/26/2019 16:46 T [facility] Blood specimen (specimen) BLOOD SPECIMEN / Unknown 03/26/2019 16:09 EDT 03/26/2019 16:21 EDT us Kori Nguyen MD CHEMISTRY & BLOOD GAS ORD ERABLES Final Result [facility] [address] [place] [address] * (ABNORMAL) BLOOD GAS, G3 ISTAT (03/26/2019 15:06 EDT) pH, i-STAT 7.32(L) 7.35 - 7.45 03/26/2019 15:10 [facility] pCO2, i-STAT 52(H) 35 - 45 mmHg 03/26/2019 15:10 [facility] pO2, i-STAT 36(L) 80 - 105 mmHg 03/26/2019 15:10 [facility] TCO2, i-STAT 28(H) 23 - 27 mEq/L 03/26/2019 15:10 [facility] O2 Saturation 63(L) 95 - 98 % 03/26/2019 15:10 [facility] Base Excess, i-STAT 0 03/26/2019 15:10 [facility] Sample Type VENOUS 03/26/2019 15:10 [facility] fish technologist ID [id number] 03/26/2019 15:10 [facility] Comment: Test Performed by Respiratory For non-arterial reference ranges, please see ISTAT procedure. BLOOD SPECIMEN / Unknown 03/26/2019 15:06 EDT 03/26/2019 15:10 EDT us Leticia Galdamez MD CHEMISTRY & BLOOD GAS ORDERAB LES Final Result Performing Organization Address City/[facility]/ZIP Co de Phone Number [facility] [address] [place] [address] * LACTIC ACID (03/26/2019 15:04 EDT) Lactic Acid 0.8 <2.1 mmol/L 03/26/2019 15:42 EDT [facility] Blood specimen (specimen) BLOOD SPECIMEN / Unknown 03/26/2019 15:04 EDT 03/26/2019 15:27 EDT us Keanu Flores MD CHEMISTRY & BLOOD GAS ORDERABLES Final Result Performing Organization Address [facility] Co de Phone Number [facility] [address] [place] [address] * (ABNORMAL) GLUCOSE, GLUCOMETER (03/26/2019 12:00 EDT) Glucose, Fingerstick 163(H) 70 - 100 mg/dl 03/26/2019 12:01 EDT [facility] [employer] Supervisor ID [id number] 03/26/2019 12:01 EDT [facility] Comment:Test Performed by Nu ing Services BLOOD SPECIMEN / Unknown 03/26/2019 12:00 EDT 03/26/2019 12:01 EDT us Leticia Galdamez MD CHEMISTRY & BLOOD GAS ORDERAB LES Final Result Performing Organization Address City/[facility]/ZIP Co de Phone Number [facility] [address] [place] [address] * CT CHEST W CONTRAST (03/26/2019 11:29 [...] PACS workstation for analysis. Comparison: Outside CT [facility] March 16, 2019. Findings: CT of the chest performed after IV contrast administration. Tubes and lines: There is an endotracheal tube its tip in good position above the tracheal timmy just below the thoracic inlet. A nasogastric tube is seen to enter the stomach, its tip on the photonics engineer view in the S2 body or antrum. [...] PACS workstation for analysis. Comparison: Outside CT [facility] March 16, 2019. Findings: CT of the chest performed after IV contrast administration. Tubes and lines: There is an endotracheal tube its tip in good position above the tracheal timmy just below the thoracic inlet. A nasogastric tube is seen to enter the stomach, its tip on the photonics engineer view in the S2 body or antrum. [...] lower lobe airways in particular. Ayaan SMITH [facility] CT ORDERABLES Final Resul t * [...] spine. No suspicious osseous lesions or fractures. Service Writer: No additional findings. Impression: Study is limited [...] spine. No suspicious osseous lesions or fractures. Service Writer: No additional findings. Impression: Study is limited [...] EDT) Result No growth 03/31/2019 8:53 EDT [facility] Blood specimen (specimen) BLOOD SPECIMEN / Unknown 03/26/2019 10:20 EDT 03/26/2019 10:50 EDT Comment:Right~PICC us Leticia Galdamez MD MICROBIOLOGY - GENERAL ORDERA BLES Final Result Performing Organization Address City/[facility]/ZIP Co de Phone Number [facility] [address] [place] [address] * INPATIENT ADD-ON (03/26/2019 10:05 EDT) Tests to be added PROCALCINTONIN 03/26/2019 10:01 EDT [facility] Number for problems [id number] 03/26/2019 10:11 EDT [facility] Accession number [id number] 03/26/2019 10:11 EDT [facility] TOPOGRAPHY UNKNOWN / Unknown 03/26/2019 10:05 EDT 03/26/2019 10:10 EDT us Leticia Galdamez MD HEMATOLOGY & PF4 ORDERABLES F inal Result Performing Organization Address [facility] Co de Phone Number [facility] [address] [place] [address] * (ABNORMAL) ELECTROLYTES (03/26/2019 10:00 EDT) Sodium 139 136 - 145 mEq/L 03/26/2019 11:02 EDT [facility] Potassium 3.4(L) 3.5 - 5.0 mEq/L 03/26/2019 11:02 EDT [facility] Chloride 105 96 - 110 mEq/L 03/26/2019 11:02 EDT [facility] CO2 28 22 - 32 mEq/L 03/26/2019 11:02 EDT [facility] Blood specimen (specimen) BLOOD SPECIMEN / Unknown 03/26/2019 10:00 EDT 03/26/2019 10:15 EDT us Kori Nguyen MD CHEMISTRY & BLOOD GAS ORD ERABLES Final Result [facility] [address] [place] [address] * ECHOCARDIOGRAM (03/26/2019 9:55 EDT) Anatomical Region Laterality Modality Other 03/26/2019 9:55 EDT Narrative 03/26/2019 10:12 EDT *Interpreting Group:* *[facility]* [address] [place] [address] Date of study: 03/26/2019 Transthoracic Echocardiography M-mode, [...] Galdamez ORDERING ? Leticia Galdamez PERFORMING ?? [facility], ENVIRONMENTAL SUSTAINABILITY MANAGER ??Naila Simon RDCS *PROCEDURE DATA* Procedure information: ??The patient was identified by two identifiers. This study was interpreted by [facility]. Pertinent images [...] acoustic windows. Images were obtained using an HearMeOutq 10 cardiac ultrasound machine. Image quality was [...] MD, MD - 03/26/2019 *Interpreting Group:* *[facility]* [address] [place] [address] Date of study: 03/26/2019 Transthoracic Echocardiography M-mode, [...] ATTENDING Leticia Galdamez ORDERING Leticia Galdamez PERFORMING [facility], ENVIRONMENTAL SUSTAINABILITY MANAGER Naila Simon RDCS *PROCEDURE DATA* Procedure information: The patient was identified by two identifiers. This study was interpreted by [facility]. Pertinent images [...] tube terminates below the diaphragm, beyond the [id number]. Multifocal pulmonary opacities appear slightly improved, possibly [...] tube terminates below the diaphragm, beyond the [id number]. Multifocal pulmonary opacities appear slightly improved, possibly [...] 70 - 100 mg/dl 03/26/2019 5:10 EDT [facility] [employer] Supervisor [place] [id number] 03/26/2019 5:10 EDT [facility] Comment:Test Performed by [facility] Services BLOOD SPECIMEN / Unknown 03/26/2019 5:09 EDT 03/26/2019 5:10 EDT us Leticia Galdamez MD CHEMISTRY & BLOOD GAS ORDERAB LES Final Result Performing Organization Address [facility] de Phone Number [facility] [address] [place] [address] * PROCALCITONIN, INFECTIOUS DISEASE USE ONLY (03/26/2019 3:01 EDT) Procalcitonin, Infectious Disease Use Only 0.99 ng/ml 03/26/2019 12:13 EDT [facility] Comment: Procalcitonin levels <0.5 ng/ml represent a low risk of severe sepsis and/or septic shock. Add on order BLOOD SPECIMEN / Unknown 03/26/2019 3:01 EDT 03/26/2019 3:07 EDT us Kori Nguyen MD CHEMISTRY & BLOOD GAS ORD ERABLES Final Result Performing Organization Address [facility] Co de Phone Number [facility] [address] [place] [address] * MAGNESIUM (03/26/2019 3:01 EDT) Pathologist [facility] Magnesium 1.9 1.7 - 2.8 mg/dl 03/26/2019 3:41 EDT [facility] Blood specimen (specimen) BLOOD SPECIMEN / Unknown 03/26/2019 3:01 EDT 03/26/2019 3:07 EDT us Kori Nguyen MD CHEMISTRY & BLOOD GAS ORD ERABLES Final Result Performing Organization Address [facility] Co de Phone Number [facility] [address] [place] [address] * (ABNORMAL) COMPLETE BLOOD COUNT (03/26/2019 3:01 EDT) WBC 8.92 4.0 - 10.4 K/cmm 03/26/2019 3:24 EDT [facility] RBC 2.32(L) 4.36 - 5.78 M/cmm 03/26/2019 3:24 EDT [facility] Hemoglobin 7.3(L) 13.8 - 17.3 gm/dl 03/26/2019 3:24 EDT [facility] HCT 22.4(L) 39.5 - 50.2 % 03/26/2019 3:24 T [facility] MCV 97(H) 81 - 95 fl 03/26/2019 3:24 T [facility] MCH 31.5 27.6 - 33.0 pg 03/26/2019 3:24 T [facility] MCHC 32.6(L) 32.8 - 36.4 gm/dl 03/26/2019 3:24 [facility] RDW-CV 15.1(H) <14.2 % 03/26/2019 3:24 T [facility] RDW-SD 51.2(H) <46.0 fl 03/26/2019 3:24 [facility] PLT 170 141 - 377 K/cmm 03/26/2019 3:24 [facility] MPV 12.3 9.5 - 12.7 fl 03/26/2019 3:24 T [facility] Blood specimen (specimen) BLOOD SPECIMEN / Unknown 03/26/2019 3:01 EDT 03/26/2019 3:07 EDT us Domenica High MD HEMATOLOGY & PF4 ORDERABLES Fin al Result [facility] [address] [place] [address] * (ABNORMAL) CALCIUM (03/26/2019 3:01 EDT) Calcium 7.6(L) 8.5 - 10.5 mg/dl 03/26/2019 3:41 EDT [facility] Calculated Calcium 9.2 8.5 - 10.5 mg/dl 03/26/2019 3:41 EDT [facility] Blood specimen (specimen) BLOOD SPECIMEN / Unknown 03/26/2019 3:01 EDT 03/26/2019 3:07 EDT us Kori Nguyen MD CHEMISTRY & BLOOD GAS ORD ERABLES Final Result [facility] [address] [place] [address] * PHOSPHORUS (03/26/2019 3:01 EDT) Phosphorus 4.5 2.5 - 4.5 mg/dl 03/26/2019 3:41 EDT [facility] Blood specimen (specimen) BLOOD SPECIMEN / Unknown 03/26/2019 3:01 EDT 03/26/2019 3:07 EDT us Kori Nguyen MD CHEMISTRY & BLOOD GAS ORD ERABLES Final Result Performing Organization Address [facility] Co de Phone Number [facility] [address] [place] [address] * (ABNORMAL) CREATININE (03/26/2019 3:01 EDT) Creatinine 1.66(H) 0.66 - 1.25 mg/dl 03/26/2019 3:41 EDT [facility] GFR, Calculated 43(L) >60 ml/min/1.7 3m2 03/26/2019 3:41 EDT [facility] Comment: eGFR calculated using CKD-EPI equation for non Americans. Multiply eGFR by 1.16 for Americans. Blood specimen (specimen) BLOOD SPECIMEN / Unknown 03/26/2019 3:01 EDT 03/26/2019 3:07 EDT us Kori Nguyen MD CHEMISTRY & BLOOD GAS ORD ERABLES Final Result Performing Organization Address City/[facility]/ZIP Co de Phone Number [facility] [address] [place] [address] * ELECTROLYTES (03/26/2019 3:01 EDT) Sodium 139 136 - 145 mEq/L 03/26/2019 3:41 EDT [facility] Potassium 3.5 3.5 - 5.0 mEq/L 03/26/2019 3:41 EDT [facility] Chloride 105 96 - 110 mEq/L 03/26/2019 3:41 EDT [facility] CO2 30 22 - 32 mEq/L 03/26/2019 3:41 EDT [facility] Blood specimen (specimen) BLOOD SPECIMEN / Unknown 03/26/2019 3:01 EDT 03/26/2019 3:07 EDT us Kori Nguyen MD CHEMISTRY & BLOOD GAS ORD ERABLES Final Result Performing Organization Address [facility] Co de Phone Number [facility] [address] [place] [address] * (ABNORMAL) GLUCOSE, GLUCOMETER (03/25/2019 23:01 EDT) Glucose, Fingerstick 135(H) 70 - 100 mg/dl 03/25/2019 23:02 EDT [facility] [employer] Supervisor [place] [id number] 03/25/2019 23:02 EDT [facility] Comment:Test Performed by rsing Services BLOOD SPECIMEN / Unknown 03/25/2019 23:01 EDT 03/25/2019 23:02 EDT us Leticia Galdamez MD CHEMISTRY & BLOOD GAS ORDERAB LES Final Result Performing Organization Address [facility] Co de Phone Number [facility] [address] [place] [address] * (ABNORMAL) GLUCOSE, GLUCOMETER (03/25/2019 17:10 EDT) Glucose, Fingerstick 130(H) 70 - 100 mg/dl 03/25/2019 17:14 EDT [facility] [employer] Supervisor ID [id number] 03/25/2019 17:14 EDT [facility] Comment:Test Performed by Nu rsing Services BLOOD SPECIMEN / Unknown 03/25/2019 17:10 EDT 03/25/2019 17:14 EDT us Leticia Galdamez MD CHEMISTRY & BLOOD GAS ORDERAB LES Final Result Performing Organization Address [facility]/ZIP Co de Phone Number [facility] [address] [place] [address] * (ABNORMAL) MAGNESIUM (03/25/2019 17:01 EDT) Pathologist [facility] Magnesium 1.6(L) 1.7 - 2.8 mg/dl 03/25/2019 17:28 EDT [facility] Blood specimen (specimen) BLOOD SPECIMEN / Unknown 03/25/2019 17:01 EDT 03/25/2019 17:06 EDT Kathy Garza DO CHEMISTRY & BLOOD GAS ORDERABL ES Final Result Performing Organization Address [facility] Co de Phone Number [facility] [address] [place] [address] * ELECTROLYTES (03/25/2019 17:01 EDT) [facility] Sodium 141 136 - 145 mEq/L 03/25/2019 17:28 EDT [facility] Potassium 3.8 3.5 - 5.0 mEq/L 03/25/2019 17:28 T [facility] Chloride 108 96 - 110 mEq/L 03/25/2019 17:28 EDT [facility] CO2 29 22 - 32 mEq/L 03/25/2019 17:28 EDT [facility] Blood specimen (specimen) BLOOD SPECIMEN / Unknown 03/25/2019 17:01 EDT 03/25/2019 17:06 EDT us Kathy Garza DO CHEMISTRY & BLOOD GAS ORDERABL ES Final Result Performing Organization Address [facility] Co de Phone Number [facility] [address] [place] [address] * (ABNORMAL) GLUCOSE, GLUCOMETER (03/25/2019 11:26 EDT) Glucose, Fingerstick 169(H) 70 - 100 mg/dl 03/25/2019 21:19 EDT [facility] [employer] Supervisor [place] [id number] 03/25/2019 21:19 EDT [facility] Comment:Test Performed by Nu rsing Services BLOOD SPECIMEN / Unknown 03/25/2019 11:26 EDT 03/25/2019 21:19 EDT us Leticia Galdamez MD CHEMISTRY & BLOOD GAS ORDERAB LES Final Result Performing Organization Address [facility] Co de Phone Number [facility] [address] [place] [address] * (ABNORMAL) ELECTROLYTES (03/25/2019 9:17 EDT) Sodium 145 136 - 145 mEq/L 03/25/2019 9:44 EDT [facility] Potassium 2.4(LL) 3.5 - 5.0 mEq/L 03/25/2019 9:44 EDT [facility] Chloride 125(H) 96 - 110 mEq/L 03/25/2019 9:44 EDT [facility] CO2 17(L) 22 - 32 mEq/L 03/25/2019 9:44 EDT [facility] Blood specimen (specimen) BLOOD SPECIMEN / Unknown 03/25/2019 9:17 EDT 03/25/2019 9:25 EDT us Kori Nguyen MD CHEMISTRY & BLOOD GAS ORD ERABLES Final Result Performing Organization Address [facility]/ZIP Co de Phone Number [facility] [address] [place] [address] * (ABNORMAL) BLOOD GAS, G3 ISTAT (03/25/2019 6:01 EDT) pH, i-STAT 7.29(L) 7.35 - 7.45 03/25/2019 6:08 EDT [facility] pCO2, i-STAT 54(H) 35 - 45 mmHg 03/25/2019 6:08 EDT [facility] pO2, i-STAT 68(L) 80 - 105 mmHg 03/25/2019 6:08 EDT [facility] TCO2, i-STAT 27 23 - 27 mEq/L 03/25/2019 6:08 EDT [facility] O2 Saturation 91(L) 95 - 98 % 03/25/2019 6:08 EDT [facility] Base Deficit, i-STAT 1 03/25/2019 6:08 EDT [facility] Sample Type ARTERIAL 03/25/2019 6:08 EDT [facility] fish technologist ID [id number] 03/25/2019 6:08 EDT [facility] Comment: Test Performed by Respiratory For non-arterial reference ranges, please see ISTAT procedure. BLOOD SPECIMEN / Unknown 03/25/2019 6:01 EDT 03/25/2019 6:08 EDT us Leticia Galdamez MD CHEMISTRY & BLOOD GAS ORDERAB LES Final Result [facility] [address] [place] [address] * (ABNORMAL) GLUCOSE, GLUCOMETER (03/25/2019 5:09 EDT) Glucose, Fingerstick 137(H) 70 - 100 mg/dl 03/25/2019 5:09 EDT [facility] [employer] Supervisor ID [id number] 03/25/2019 5:09 EDT [facility] Comment:Test Performed by Nu rsing Services BLOOD SPECIMEN / Unknown 03/25/2019 5:09 EDT 03/25/2019 5:10 EDT us Leticia Galdamez MD CHEMISTRY & BLOOD GAS ORDERAB LES Final Result [facility] [address] [place] [address] * MAGNESIUM (03/25/2019 3:21 EDT) Magnesium 1.8 1.7 - 2.8 mg/dl 03/25/2019 4:12 EDT [facility] Blood specimen (specimen) BLOOD SPECIMEN / Unknown 03/25/2019 3:21 EDT 03/25/2019 3:26 EDT us Kori Nguyen MD CHEMISTRY & BLOOD GAS ORD ERABLES Final Result [facility] [address] [place] [address] * (ABNORMAL) COMPLETE BLOOD COUNT (03/25/2019 3:21 EDT) WBC 11.07(H) 4.0 - 10.4 K/cmm 03/25/2019 3:34 EDT [facility] RBC 2.30(L) 4.36 - 5.78 M/cmm 03/25/2019 3:34 [facility] Hemoglobin 7.2(L) 13.8 - 17.3 gm/dl 03/25/2019 3:34 [facility] HCT 22.3(L) 39.5 - 50.2 % 03/25/2019 3:34 [facility] MCV 97(H) 81 - 95 fl 03/25/2019 3:34 [facility] MCH 31.3 27.6 - 33.0 pg 03/25/2019 3:34 [facility] MCHC 32.3(L) 32.8 - 36.4 gm/dl 03/25/2019 3:34 [facility] RDW-CV 15.1(H) <14.2 % 03/25/2019 3:34 [facility] RDW-SD 51.9(H) <46.0 fl 03/25/2019 3:34 [facility] PLT 151 141 - 377 K/cmm 03/25/2019 3:34 [facility] MPV 12.5 9.5 - 12.7 fl 03/25/2019 3:34 [facility] Blood specimen (specimen) BLOOD SPECIMEN / Unknown 03/25/2019 3:21 EDT 03/25/2019 3:26 EDT us Domenica High MD HEMATOLOGY & PF4 ORDERABLES Fin al Result [facility] [address] [place] [address] * (ABNORMAL) CALCIUM (03/25/2019 3:21 EDT) Calcium 7.3(L) 8.5 - 10.5 mg/dl 03/25/2019 4:12 EDT [facility] Calculated Calcium 9.1 8.5 - 10.5 mg/dl 03/25/2019 4:12 EDT [facility] Blood specimen (specimen) BLOOD SPECIMEN / Unknown 03/25/2019 3:21 EDT 03/25/2019 3:26 EDT us Kori Nguyen MD CHEMISTRY & BLOOD GAS ORD ERABLES Final Result [facility] [address] [place] [address] * PHOSPHORUS (03/25/2019 3:21 EDT) Phosphorus 3.5 2.5 - 4.5 mg/dl 03/25/2019 4:12 EDT [facility] Blood specimen (specimen) BLOOD SPECIMEN / Unknown 03/25/2019 3:21 EDT 03/25/2019 3:26 EDT us Kori Nguyen MD CHEMISTRY & BLOOD GAS ORD ERABLES Final Result [facility] [address] [place] [address] * (ABNORMAL) CREATININE (03/25/2019 3:21 EDT) Creatinine 1.43(H) 0.66 - 1.25 mg/dl 03/25/2019 4:12 EDT [facility] GFR, Calculated 51(L) >60 ml/min/1.7 3m2 03/25/2019 4:12 EDT [facility] Comment: eGFR calculated using CKD-EPI equation for non Americans. Multiply eGFR by 1.16 for Americans. Blood specimen (specimen) BLOOD SPECIMEN / Unknown 03/25/2019 3:21 EDT 03/25/2019 3:26 EDT us Kori Nguyen MD CHEMISTRY & BLOOD GAS ORD ERABLES Final Result Performing Organization Address [facility]/ZIP Co de Phone Number [facility] [address] [place] [address] * (ABNORMAL) ELECTROLYTES (03/25/2019 3:21 EDT) Sodium 144 136 - 145 mEq/L 03/25/2019 4:12 EDT [facility] Potassium 4.1 3.5 - 5.0 mEq/L 03/25/2019 4:12 EDT [facility] Chloride 113(H) 96 - 110 mEq/L 03/25/2019 4:12 EDT [facility] CO2 28 22 - 32 mEq/L 03/25/2019 4:12 EDT [facility] Blood specimen (specimen) BLOOD SPECIMEN / Unknown 03/25/2019 3:21 EDT 03/25/2019 3:26 EDT us Kori Nguyen MD CHEMISTRY & BLOOD GAS ORD ERABLES Final Result Performing Organization Address [facility] Co de Phone Number [facility] [address] [place] [address] * TRIGLYCERIDE (03/25/2019 3:21 EDT) Triglycerides 110 mg/dl 03/25/2019 4:12 EDT [facility] Comment: Normal:<150 Borderline High:150-199 High:200-499 Very High:>fi=[id number] Blood specimen (specimen) BLOOD SPECIMEN / Unknown 03/25/2019 3:21 EDT 03/25/2019 3:26 EDT us Leticia Galdamez MD CHEMISTRY & BLOOD GAS ORDERAB LES Final Result Performing Organization Address [facility]/ZIP Co de Phone Number [facility] [address] [place] [address] * (ABNORMAL) GLUCOSE, GLUCOMETER (03/24/2019 23:43 EDT) Glucose, Fingerstick 154(H) 70 - 100 mg/dl 03/24/2019 23:46 T [facility] [employer] Supervisor ID [id number] 03/24/2019 23:46 EDT [facility] Comment:Test Performed by Nu rsing Services BLOOD SPECIMEN / Unknown 03/24/2019 23:43 EDT 03/24/2019 23:46 EDT us Leticia Galdamez MD CHEMISTRY & BLOOD GAS ORDERAB LES Final Result [facility] [address] [place] [address] * (ABNORMAL) BLOOD GAS, G3 ISTAT (03/24/2019 21:06 EDT) pH, i-STAT 7.25(L) 7.35 - 7.45 03/24/2019 21:09 [facility] pCO2, i-STAT 56(H) 35 - 45 mmHg 03/24/2019 21:09 [facility] pO2, i-STAT 57(L) 80 - 105 mmHg 03/24/2019 21:09 [facility] TCO2, i-STAT 26 23 - 27 mEq/L 03/24/2019 21:09 [facility] O2 Saturation 84(L) 95 - 98 % 03/24/2019 21:09 [facility] Base Deficit, i-STAT 3 03/24/2019 21:09 [facility] Sample Type ARTERIAL 03/24/2019 21:09 [facility] fish technologist ID [id number] 03/24/2019 21:09 [facility] Comment: Test Performed by Respiratory For non-arterial reference ranges, please see ISTAT procedure. BLOOD SPECIMEN / Unknown 03/24/2019 21:06 EDT 03/24/2019 21:09 EDT us Leticia Galdamez MD CHEMISTRY & BLOOD GAS ORDERAB LES Final Result Performing Organization Address City/[facility]/ZIP Co de Phone Number [facility] [address] [place] [address] * (ABNORMAL) COMPLETE BLOOD COUNT (03/24/2019 19:19 EDT) WBC 10.82(H) 4.0 - 10.4 K/cmm 03/24/2019 19:58 EDT [facility] RBC 2.42(L) 4.36 - 5.78 M/cmm 03/24/2019 19:58 EDT [facility] Hemoglobin 7.6(L) 13.8 - 17.3 gm/dl 03/24/2019 19:58 T [facility] HCT 23.4(L) 39.5 - 50.2 % 03/24/2019 19:58 T [facility] MCV 97(H) 81 - 95 fl 03/24/2019 19:58 EDT [facility] MCH 31.4 27.6 - 33.0 pg 03/24/2019 19:58 T [facility] MCHC 32.5(L) 32.8 - 36.4 gm/dl 03/24/2019 19:58 T [facility] RDW-CV 15.0(H) <14.2 % 03/24/2019 19:58 T [facility] RDW-SD 51.9(H) <46.0 fl 03/24/2019 19:58 T [facility] PLT 152 141 - 377 K/cmm 03/24/2019 19:58 T [facility] MPV 12.7 9.5 - 12.7 fl 03/24/2019 19:58 [facility] Blood specimen (specimen) BLOOD SPECIMEN / Unknown 03/24/2019 19:19 EDT 03/24/2019 19:38 EDT us Jonatan Martinez MD HEMATOLOGY & PF4 ORDERABLES F inal Result Performing Organization Address City/[facility]/ZIP Co de Phone Number [facility] [address] [place] [address] * ELECTROLYTES (03/24/2019 18:40 EDT) Sodium 139 136 - 145 mEq/L 03/24/2019 19:31 [facility] Comment:Slight hemolysis Potassium 3.7 3.5 - 5.0 mEq/L 03/24/2019 19:32 [facility] Comment: Slight hemolysis Hemolysis may elevate potassium result. Chloride 109 96 - 110 mEq/L 03/24/2019 19:32 [facility] Comment:Slight hemolysis CO2 25 22 - 32 mEq/L 03/24/2019 19:32 [facility] Comment:Slight hemolysis Blood specimen (specimen) BLOOD SPECIMEN / Unknown 03/24/2019 18:40 EDT 03/24/2019 18:45 EDT us Kori Nguyen MD CHEMISTRY & BLOOD GAS ORD ERABLES Final Result [facility] [address] [place] [address] * (ABNORMAL) COMPLETE BLOOD COUNT (03/24/2019 18:40 EDT) WBC 10.45(H) 4.0 - 10.4 K/cmm 03/24/2019 18:55 [facility] RBC 2.18(L) 4.36 - 5.78 M/cmm 03/24/2019 18:55 [facility] Hemoglobin 7.2(L) 13.8 - 17.3 gm/dl 03/24/2019 18:55 [facility] HCT 20.7(LL) 39.5 - 50.2 % 03/24/2019 18:55 [facility] MCV 95 81 - 95 fl 03/24/2019 18:55 [facility] MCH 33.0 27.6 - 33.0 pg 03/24/2019 18:55 [facility] MCHC 34.8 32.8 - 36.4 gm/dl 03/24/2019 18:55 [facility] RDW-CV 14.9(H) <14.2 % 03/24/2019 18:55 EDT [facility] RDW-SD 50.9(H) <46.0 fl 03/24/2019 18:55 EDT [facility] PLT 149 141 - 377 K/cmm 03/24/2019 18:55 EDT [facility] MPV 12.4 9.5 - 12.7 fl 03/24/2019 18:55 EDT [facility] Blood specimen (specimen) BLOOD SPECIMEN / Unknown 03/24/2019 18:40 EDT 03/24/2019 18:45 EDT us Betzy Zee MD HEMATOLOGY & PF4 ORDERABLES Final Result Performing Organization Address City/[facility]/ZIP Co de Phone Number [facility] [address] [place] [address] * (ABNORMAL) GLUCOSE, GLUCOMETER (03/24/2019 18:00 EDT) Glucose, Fingerstick 153(H) 70 - 100 mg/dl 03/24/2019 18:01 EDT [facility] [employer] Supervisor ID [id number] 03/24/2019 18:01 EDT [facility] Comment:[facility] B[facility]OD SPECIMEN / Unknown 03/24/2019 18:00 EDT 03/24/2019 18:01 EDT us Leticia Galdamez MD CHEMISTRY & BLOOD GAS ORDERAB LES Final Result [facility] [address] [place] [address] * INSERT PICC LINE (03/24/2019 16:59 EDT) Narrative Jose Kohler, RN - 03/24/2019 16:59 EDT Jose Kohler, RN ? 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 A transesophageal tube terminates beyond the ehekk-ta-fguf. Soft tissues and bones: No significant abnormalities. Cardiac and mediastinal contours: Within normal limits. Lungs: There is no substantial change in the appearance of the chest including the bilateral airspace opacities and the left retrocardiac opacity. The lower most portion of the thorax including the costophrenic angles are excluded from the imaging [id number]. Pleura: There is no evidence of pneumothorax or pleural fluid, but neither can be excluded on this non-upright radiograph. Impression: 1. ??Right upper extremity PICC terminates in the region of the lower SVC. I have personally reviewed the images and the above interpretation and agree with the findings. [facility] PORTABLE CHEST [...] trachea. A transesophageal tube terminates beyond the qsfwz-fv-dinb. Soft tissues and bones: No significant abnormalities. Cardiac and mediastinal contours: Within normal limits. Lungs: There is no substantial change in the appearance of the chest including the bilateral airspace opacities and the left retrocardiac opacity. The lower most portion of the thorax including the costophrenic angles are excluded from the imaging [id number]. Pleura: There is no evidence of pneumothorax [...] 136 - 145 mEq/L 03/24/2019 15:00 EDT [facility] Potassium 4.0 3.5 - 5.0 mEq/L 03/24/2019 15:00 EDT [facility] Chloride 115(H) 96 - 110 mEq/L 03/24/2019 15:00 EDT [facility] CO2 30 22 - 32 mEq/L 03/24/2019 15:00 EDT [facility] Blood specimen (specimen) BLOOD SPECIMEN / Unknown 03/24/2019 14:21 EDT 03/24/2019 14:36 EDT us Kori Nguyen MD CHEMISTRY & BLOOD GAS ORD ERABLES Final Result Performing Organization Address City/[facility]/ZIP Co de Phone Number [facility] [address] [place] [address] * (ABNORMAL) GLUCOSE, GLUCOMETER (03/24/2019 11:51 EDT) Glucose, Fingerstick 144(H) 70 - 100 mg/dl 03/24/2019 22:24 EDT [facility] Brew House Supervisor ID [id number] 03/24/2019 22:24 EDT [facility] Comment:Test Performed by Nu ing Services BLOOD SPECIMEN / Unknown 03/24/2019 11:51 EDT 03/24/2019 22:24 EDT us eLticia Galdamez MD CHEMISTRY & BLOOD GAS ORDERAB LES Final Result [facility] [address] [place] [address] * (ABNORMAL) BLOOD GAS, G3 ISTAT (03/24/2019 10:06 EDT) pH, i-STAT 7.35 7.35 - 7.45 03/24/2019 10:12 [facility] pCO2, i-STAT 48(H) 35 - 45 mmHg 03/24/2019 10:12 [facility] pO2, i-STAT 69(L) 80 - 105 mmHg 03/24/2019 10:12 [facility] TCO2, i-STAT 28(H) 23 - 27 mEq/L 03/24/2019 10:12 [facility] O2 Saturation 93(L) 95 - 98 % 03/24/2019 10:12 [facility] Base Excess, i-STAT 1 03/24/2019 10:12 [facility] Sample Type ARTERIAL 03/24/2019 10:12 [facility] fish technologist ID [id number] 03/24/2019 10:12 [facility] Comment: Test Performed by Respiratory For non-arterial reference ranges, please see ISTAT procedure. BLOOD SPECIMEN / Unknown 03/24/2019 10:06 EDT 03/24/2019 10:12 EDT us Leticia Galdamez MD CHEMISTRY & BLOOD GAS ORDERAB LES Final Result [facility] [address] [place] [id number] * INPATIENT ADD-ON (03/24/2019 9:30 EDT) Tests to be added BUN 03/24/2019 9:29 EDT [facility] Number for problems [id number] 03/24/2019 9:39 EDT [facility] Accession number [id number] 03/24/2019 9:39 T [facility] TOPOGRAPHY UNKNOWN / Unknown 03/24/2019 9:30 EDT 03/24/2019 9:37 EDT us Betzy Zee MD HEMATOLOGY & PF4 ORDERABLES Final Result [facility] [address] [place] [address] * (ABNORMAL) BLOOD GAS, G3 ISTAT (03/24/2019 8:26 EDT) pH, i-STAT 7.43 7.35 - 7.45 03/24/2019 8:31 EDT [facility] pCO2, i-STAT 43 35 - 45 mmHg 03/24/2019 8:31 EDT [facility] pO2, i-STAT 56(L) 80 - 105 mmHg 03/24/2019 8:31 EDT [facility] TCO2, i-STAT 30(H) 23 - 27 mEq/L 03/24/2019 8:31 EDT [facility] O2 Saturation 90(L) 95 - 98 % 03/24/2019 8:31 T [facility] Base Excess, i-STAT 4 03/24/2019 8:31 EDT [facility] Sample Type ARTERIAL 03/24/2019 8:31 EDT [facility] fish technologist ID [id number] 03/24/2019 8:31 EDT [facility] Comment: Test Performed by Respiratory For non-arterial reference ranges, please see ISTAT procedure. BLOOD SPECIMEN / Unknown 03/24/2019 8:26 EDT 03/24/2019 8:31 EDT us Leticia Galdamez MD CHEMISTRY & BLOOD GAS ORDERAB LES Final Result [facility] [address] [place] [address] * PORTABLE CHEST 1 VIEW (03/24/2019 8:26 [...] with the tip excluded from the imaging afrgl-aw-abas. Soft tissues and bones: No significant abnormalities. [...] with the tip excluded from the imaging [id number]. Soft tissues and bones: No significant abnormalities. [...] Result * INPATIENT ADD-ON (03/24/2019 6:45 EDT) [facility] Tests to be added ELECTROLYTES 03/24/2019 6:45 EDT [facility] Number for problems [id number] 03/24/2019 8:09 EDT [facility] Accession number [id number] 03/24/2019 8:09 EDT [facility] TOPOGRAPHY UNKNOWN / Unknown 03/24/2019 6:45 EDT 03/24/2019 8:09 EDT us Leticia Galdamez MD HEMATOLOGY & PF4 ORDERABLES F inal Result Performing Organization Address City/[facility]/ZIP Co de Phone Number [facility] [address] [place] [address] * (ABNORMAL) BUN (03/24/2019 6:00 EDT) BUN 66(H) 10 - 26 mg/dl 03/24/2019 11:11 EDT [facility] BLOOD SPECIMEN / Unknown 03/24/2019 6:00 EDT 03/24/2019 6:12 EDT us Kori Nguyen MD CHEMISTRY & BLOOD GAS ORD ERABLES Final Result Performing Organization Address [facility] Co de Phone Number [facility] [address] [place] [address] * (ABNORMAL) ELECTROLYTES (03/24/2019 6:00 EDT) Sodium 149(H) 136 - 145 mEq/L 03/24/2019 8:41 EDT [facility] Potassium 3.6 3.5 - 5.0 mEq/L 03/24/2019 8:41 EDT [facility] Chloride 116(H) 96 - 110 mEq/L 03/24/2019 8:41 EDT [facility] CO2 29 22 - 32 mEq/L 03/24/2019 8:41 EDT [facility] Comment: Interpret results with caution. Prolonged sample storage may alter result. BLOOD SPECIMEN / Unknown 03/24/2019 6:00 EDT 03/24/2019 6:12 EDT us Kori Nguyen MD CHEMISTRY & BLOOD GAS ORD ERABLES Final Result Performing Organization Address [facility]/ZIP Co de Phone Number [facility] [address] [place] [address] * (ABNORMAL) GLUCOSE, GLUCOMETER (03/24/2019 6:00 EDT) Glucose, Fingerstick 154(H) 70 - 100 mg/dl 03/24/2019 6:03 EDT [facility] [employer] Supervisor ID [id number] 03/24/2019 6:03 EDT [facility] Comment:Test Performed by [facility] Services BLOOD SPECIMEN / Unknown 03/24/2019 6:00 EDT 03/24/2019 6:03 EDT us Leticia Galdamez MD CHEMISTRY & BLOOD GAS ORDERAB LES Final Result Performing Organization Address [facility]/ZIP Co de Phone Number [facility] [address] [place] [address] * MAGNESIUM (03/24/2019 6:00 EDT) Magnesium 1.9 1.7 - 2.8 mg/dl 03/24/2019 6:37 EDT [facility] Blood specimen (specimen) BLOOD SPECIMEN / Unknown 03/24/2019 6:00 EDT 03/24/2019 6:12 EDT us Kori Nguyen MD CHEMISTRY & BLOOD GAS ORD ERABLES Final Result Performing Organization Address City/[facility]/ZIP Co de Phone Number [facility] [address] [place] [address] * (ABNORMAL) COMPLETE BLOOD COUNT (03/24/2019 6:00 EDT) WBC 8.54 4.0 - 10.4 K/cmm 03/24/2019 6:25 EDT [facility] RBC 2.30(L) 4.36 - 5.78 M/cmm 03/24/2019 6:25 EDT [facility] Hemoglobin 7.2(L) 13.8 - 17.3 gm/dl 03/24/2019 6:25 EDT [facility] HCT 21.6(L) 39.5 - 50.2 % 03/24/2019 6:25 EDT [facility] MCV 94 81 - 95 fl 03/24/2019 6:25 EDT [facility] MCH 31.3 27.6 - 33.0 pg 03/24/2019 6:25 EDT [facility] MCHC 33.3 32.8 - 36.4 gm/dl 03/24/2019 6:25 EDT [facility] RDW-CV 14.6(H) <14.2 % 03/24/2019 6:25 EDT [facility] RDW-SD 49.7(H) <46.0 fl 03/24/2019 6:25 T [facility] PLT 155 141 - 377 K/cmm 03/24/2019 6:25 EDT [facility] MPV 12.4 9.5 - 12.7 fl 03/24/2019 6:25 EDT [facility] Blood specimen (specimen) BLOOD SPECIMEN / Unknown 03/24/2019 6:00 EDT 03/24/2019 6:12 EDT us Domenica High MD HEMATOLOGY & PF4 ORDERABLES Fin al Result [facility] [address] [place] [id number] * (ABNORMAL) CALCIUM (03/24/2019 6:00 EDT) Calcium 7.2(L) 8.5 - 10.5 mg/dl 03/24/2019 6:37 EDT [facility] Calculated Calcium 9.0 8.5 - 10.5 mg/dl 03/24/2019 6:37 EDT [facility] Blood specimen (specimen) BLOOD SPECIMEN / Unknown 03/24/2019 6:00 EDT 03/24/2019 6:12 EDT us Kori Nguyen MD CHEMISTRY & BLOOD GAS ORD ERABLES Final Result [facility] [address] [place] [address] * PHOSPHORUS (03/24/2019 6:00 EDT) Phosphorus 3.0 2.5 - 4.5 mg/dl 03/24/2019 6:37 EDT [facility] Blood specimen (specimen) BLOOD SPECIMEN / Unknown 03/24/2019 6:00 EDT 03/24/2019 6:12 EDT us Kori Nguyen MD CHEMISTRY & BLOOD GAS ORD ERABLES Final Result [facility] [address] [place] [address] * (ABNORMAL) CREATININE (03/24/2019 6:00 EDT) Creatinine 1.38(H) 0.66 - 1.25 mg/dl 03/24/2019 6:37 EDT [facility] GFR, Calculated 53(L) >60 ml/min/1.7 3m2 03/24/2019 6:37 EDT [facility] Comment: eGFR calculated using CKD-EPI equation for non Americans. Multiply eGFR by 1.16 for Americans. Blood specimen (specimen) BLOOD SPECIMEN / Unknown 03/24/2019 6:00 EDT 03/24/2019 6:12 EDT us Kori Nguyen MD CHEMISTRY & BLOOD GAS ORD ERABLES Final Result [facility] [address] [place] [address] * (ABNORMAL) GLUCOSE, GLUCOMETER (03/23/2019 23:50 EDT) Glucose, Fingerstick 190(H) 70 - 100 mg/dl 03/23/2019 23:55 EDT [facility] [employer] Supervisor ID [id number] 03/23/2019 23:55 EDT [facility] Comment:[facility] BLOOD SPECIMEN / Unknown 03/23/2019 23:50 EDT 03/23/2019 23:55 EDT us Leticia Galdamez MD CHEMISTRY & BLOOD GAS ORDERAB LES Final Result Performing Organization Address [facility] Co de Phone Number [facility] [address] [place] [address] * (ABNORMAL) ELECTROLYTES (03/23/2019 23:40 EDT) Sodium 148(H) 136 - 145 mEq/L 03/24/2019 0:25 EDT [facility] Potassium 2.9(LL) 3.5 - 5.0 mEq/L 03/24/2019 0:25 EDT [facility] Chloride 114(H) 96 - 110 mEq/L 03/24/2019 0:25 EDT [facility] CO2 29 22 - 32 mEq/L 03/24/2019 0:25 EDT [facility] Blood specimen (specimen) BLOOD SPECIMEN / Unknown 03/23/2019 23:40 EDT 03/24/2019 0:03 EDT us Kori Nguyen MD CHEMISTRY & BLOOD GAS ORD ERABLES Final Result Performing Organization Address [facility] Co de Phone Number [facility] [address] [place] [address] * (ABNORMAL) ELECTROLYTES (03/23/2019 18:24 EDT) Sodium 149(H) 136 - 145 mEq/L 03/23/2019 19:04 EDT [facility] Potassium 3.1(L) 3.5 - 5.0 mEq/L 03/23/2019 19:04 EDT [facility] Chloride 114(H) 96 - 110 mEq/L 03/23/2019 19:04 EDT [facility] CO2 31 22 - 32 mEq/L 03/23/2019 19:04 EDT [facility] Blood specimen (specimen) BLOOD SPECIMEN / Unknown 03/23/2019 18:24 EDT 03/23/2019 18:42 EDT us Kori Nguyen MD CHEMISTRY & BLOOD GAS ORD ERABLES Final Result [facility] [address] [place] [address] * (ABNORMAL) COMPLETE BLOOD COUNT (03/23/2019 18:24 EDT) WBC 10.92(H) 4.0 - 10.4 K/cmm 03/23/2019 19:01 [facility] RBC 2.46(L) 4.36 - 5.78 M/cmm 03/23/2019 19:01 [facility] Hemoglobin 7.9(L) 13.8 - 17.3 gm/dl 03/23/2019 19:01 [facility] HCT 23.3(L) 39.5 - 50.2 % 03/23/2019 19:01 [facility] MCV 95 81 - 95 fl 03/23/2019 19:01 [facility] MCH 32.1 27.6 - 33.0 pg 03/23/2019 19:01 [facility] MCHC 33.9 32.8 - 36.4 gm/dl 03/23/2019 19:01 [facility] RDW-CV 14.8(H) <14.2 % 03/23/2019 19:01 [facility] RDW-SD 50.8(H) <46.0 fl 03/23/2019 19:01 [facility] PLT 162 141 - 377 K/cmm 03/23/2019 19:01 [facility] MPV 12.6 9.5 - 12.7 fl 03/23/2019 19:01 [facility] Blood specimen (specimen) BLOOD SPECIMEN / Unknown 03/23/2019 18:24 EDT 03/23/2019 18:42 EDT us Brian Saldana MD HEMATOLOGY & PF4 ORDERABLES Juliana l Result [facility] [address] [place] [address] * (ABNORMAL) GLUCOSE, GLUCOMETER (03/23/2019 17:56 EDT) Glucose, Fingerstick 163(H) 70 - 100 mg/dl 03/23/2019 17:57 EDT [facility] [employer] Supervisor ID [id number] 03/23/2019 17:57 EDT [facility] Comment:Test Performed by Nu rsing Services BLOOD SPECIMEN / Unknown 03/23/2019 17:56 EDT 03/23/2019 17:57 EDT us Leticia Galdamez MD CHEMISTRY & BLOOD GAS ORDERAB LES Final Result [facility] [address] [place] [address] * (ABNORMAL) GLUCOSE, GLUCOMETER (03/23/2019 13:10 EDT) Glucose, Fingerstick 159(H) 70 - 100 mg/dl 03/23/2019 13:11 EDT [facility] [employer] Supervisor ID [id number] 03/23/2019 13:11 EDT [facility] Comment:Test Performed by [facility] Services BLOOD SPECIMEN / Unknown 03/23/2019 13:10 EDT 03/23/2019 13:11 EDT us Leticia Galdamez MD CHEMISTRY & BLOOD GAS ORDERAB LES Final Result [facility] [address] [place] [address] * INSERT PICC LINE (03/23/2019 9:28 EDT) Narrative Trina Drake RN - 03/23/2019 9:28 EDT Trina Drake RN ? 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 TRINA DRAKE RN ?? 03/23/2019 ?? 9:28 us Domenica High MD IV THERAPY ORDERABLES Final Res ult * (ABNORMAL) GLUCOSE, GLUCOMETER (03/23/2019 6:21 EDT) Glucose, Fingerstick 108(H) 70 - 100 mg/dl 03/23/2019 6:26 EDT [facility] [employer] Supervisor ID [id number] 03/23/2019 6:26 EDT [facility] Comment:[facility] BLOOD SPECIMEN / Unknown 03/23/2019 6:21 EDT 03/23/2019 6:26 EDT us Leticia Galdamez MD CHEMISTRY & BLOOD GAS ORDERAB LES Final Result Performing Organization Address [facility] Co de Phone Number [facility] [address] [place] [address] * (ABNORMAL) ELECTROLYTES (03/23/2019 6:15 EDT) Sodium 150(H) 136 - 145 mEq/L 03/23/2019 6:49 EDT [facility] Potassium 3.6 3.5 - 5.0 mEq/L 03/23/2019 6:49 EDT [facility] Chloride 120(H) 96 - 110 mEq/L 03/23/2019 6:49 EDT [facility] CO2 28 22 - 32 mEq/L 03/23/2019 6:49 EDT [facility] Blood specimen (specimen) BLOOD SPECIMEN / Unknown 03/23/2019 6:15 EDT 03/23/2019 6:26 EDT us Flex Flores MD CHEMISTRY & BLOOD GAS ORDERABLE S Final Result Performing Organization Address [facility] de Phone Number [facility] [address] [place] [address] * MAGNESIUM (03/23/2019 6:15 EDT) Magnesium 2.1 1.7 - 2.8 mg/dl 03/23/2019 6:49 EDT [facility] Blood specimen (specimen) BLOOD SPECIMEN / Unknown 03/23/2019 6:15 EDT 03/23/2019 6:26 EDT us Kori Nguyen MD CHEMISTRY & BLOOD GAS ORD ERABLES Final Result Performing Organization Address City/[facility] Co de Phone Number [facility] [address] [place] [address] * (ABNORMAL) COMPLETE BLOOD COUNT (03/23/2019 6:15 EDT) WBC 9.43 4.0 - 10.4 K/cmm 03/23/2019 6:35 T [facility] RBC 2.47(L) 4.36 - 5.78 M/cmm 03/23/2019 6:35 [facility] Hemoglobin 8.0(L) 13.8 - 17.3 gm/dl 03/23/2019 6:35 [facility] HCT 23.1(L) 39.5 - 50.2 % 03/23/2019 6:35 [facility] MCV 94 81 - 95 fl 03/23/2019 6:35 [facility] MCH 32.4 27.6 - 33.0 pg 03/23/2019 6:35 [facility] MCHC 34.6 32.8 - 36.4 gm/dl 03/23/2019 6:35 [facility] RDW-CV 14.7(H) <14.2 % 03/23/2019 6:35 [facility] RDW-SD 50.0(H) <46.0 fl 03/23/2019 6:35 [facility] PLT 156 141 - 377 K/cmm 03/23/2019 6:35 [facility] MPV 12.2 9.5 - 12.7 fl 03/23/2019 6:35 [facility] Blood specimen (specimen) BLOOD SPECIMEN / Unknown 03/23/2019 6:15 EDT 03/23/2019 6:26 EDT us Domenica High MD HEMATOLOGY & PF4 ORDERABLES Fin al Result [facility] [address] [place] [address] * (ABNORMAL) CALCIUM (03/23/2019 6:15 EDT) Calcium 7.1(L) 8.5 - 10.5 mg/dl 03/23/2019 6:49 EDT [facility] Calculated Calcium 8.7 8.5 - 10.5 mg/dl 03/23/2019 6:49 EDT [facility] Blood specimen (specimen) BLOOD SPECIMEN / Unknown 03/23/2019 6:15 EDT 03/23/2019 6:26 EDT us Kori Nguyen MD CHEMISTRY & BLOOD GAS ORD ERABLES Final Result Performing Organization Address City/[facility]/ZIP Co de Phone Number [facility] [address] [place] [address] * PHOSPHORUS (03/23/2019 6:15 EDT) Phosphorus 3.8 2.5 - 4.5 mg/dl 03/23/2019 6:49 EDT [facility] Blood specimen (specimen) BLOOD SPECIMEN / Unknown 03/23/2019 6:15 EDT 03/23/2019 6:26 EDT us Kori Nguyen MD CHEMISTRY & BLOOD GAS ORD ERABLES Final Result Performing Organization Address City/[facility] Co de Phone Number [facility] [address] [place] [address] * (ABNORMAL) CREATININE (03/23/2019 6:15 EDT) Creatinine 1.58(H) 0.66 - 1.25 mg/dl 03/23/2019 6:49 EDT [facility] GFR, Calculated 45(L) >60 ml/min/1.7 3m2 03/23/2019 6:49 EDT [facility] Comment: eGFR calculated using CKD-EPI equation for non Americans. Multiply eGFR by 1.16 for Americans. Blood specimen (specimen) BLOOD SPECIMEN / Unknown 03/23/2019 6:15 EDT 03/23/2019 6:26 EDT us Kori Nguyen MD CHEMISTRY & BLOOD GAS ORD ERABLES Final Result [facility] [address] [place] [address] * (ABNORMAL) GLUCOSE, GLUCOMETER (03/23/2019 0:21 EDT) Glucose, Fingerstick 104(H) 70 - 100 mg/dl 03/23/2019 6:26 EDT [facility] [employer] Supervisor ID [id number] 03/23/2019 6:26 EDT [facility] Comment:Test Performed by [facility] BLOOD SPECIMEN / Unknown 03/23/2019 0:21 EDT 03/23/2019 6:26 EDT us Leticia Galdamez MD CHEMISTRY & BLOOD GAS ORDERAB LES Final Result Performing Organization Address [facility]/ZIP Co de Phone Number [facility] [address] [place] [address] * (ABNORMAL) ELECTROLYTES (03/22/2019 19:59 EDT) Sodium 151(H) 136 - 145 mEq/L 03/22/2019 20:43 EDT [facility] Potassium 3.4(L) 3.5 - 5.0 mEq/L 03/22/2019 20:43 EDT [facility] Chloride 118(H) 96 - 110 mEq/L 03/22/2019 20:43 EDT [facility] CO2 30 22 - 32 mEq/L 03/22/2019 20:43 EDT [facility] Blood specimen (specimen) BLOOD SPECIMEN / Unknown 03/22/2019 19:59 EDT 03/22/2019 20:05 EDT us Flex Flores MD CHEMISTRY & BLOOD GAS ORDERABLE S Final Result [facility] [address] [place] [address] * (ABNORMAL) GLUCOSE, GLUCOMETER (03/22/2019 18:27 EDT) Glucose, Fingerstick 124(H) 70 - 100 mg/dl 03/22/2019 18:28 EDT [facility] [employer] Supervisor [place] [id number] 03/22/2019 18:28 EDT [facility] Comment:Test Performed by [facility] BLOOD SPECIMEN / Unknown 03/22/2019 18:27 EDT 03/22/2019 18:28 EDT Leticia Galdamez MD CHEMISTRY & BLOOD GAS ORDERAB LES Final Result Performing Organization Address [facility] Co de Phone Number [facility] [address] [place] [address] * (ABNORMAL) GLUCOSE, GLUCOMETER (03/22/2019 11:50 EDT) Glucose, Fingerstick 144(H) 70 - 100 mg/dl 03/22/2019 11:50 EDT [facility] [employer] Supervisor ID [id number] 03/22/2019 11:50 EDT [facility] Comment:Test Performed by rsing Services BLOOD SPECIMEN / Unknown 03/22/2019 11:50 EDT 03/22/2019 11:51 EDT Leticia Galdamez MD CHEMISTRY & BLOOD GAS ORDERAB LES Final Result Performing Organization Address [facility] Co de Phone Number [facility] [address] [place] [address] * (ABNORMAL) COMPLETE BLOOD COUNT (03/22/2019 9:26 EDT) WBC 6.13 4.0 - 10.4 K/cmm 03/22/2019 9:40 EDT [facility] RBC 2.57(L) 4.36 - 5.78 M/cmm 03/22/2019 9:40 EDT [facility] Hemoglobin 8.2(L) 13.8 - 17.3 gm/dl 03/22/2019 9:40 EDT [facility] HCT 23.2(L) 39.5 - 50.2 % 03/22/2019 9:40 EDT [facility] MCV 90 81 - 95 fl 03/22/2019 9:40 EDT [facility] MCH 31.9 27.6 - 33.0 pg 03/22/2019 9:40 EDT [facility] MCHC 35.3 32.8 - 36.4 gm/dl 03/22/2019 9:40 EDT [facility] RDW-CV 15.1(H) <14.2 % 03/22/2019 9:40 EDT [facility] RDW-SD 49.4(H) <46.0 fl 03/22/2019 9:40 EDT [facility] PLT 133(L) 141 - 377 K/cmm 03/22/2019 9:40 EDT [facility] MPV 12.4 9.5 - 12.7 fl 03/22/2019 9:40 EDT [facility] Blood specimen (specimen) BLOOD SPECIMEN / Unknown 03/22/2019 9:26 EDT 03/22/2019 9:34 EDT us Jonatan Martinez MD HEMATOLOGY & PF4 ORDERABLES F inal Result [facility] [address] [place] [address] * MAGNESIUM (03/22/2019 9:26 EDT) Magnesium 2.2 1.7 - 2.8 mg/dl 03/22/2019 9:54 EDT [facility] Blood specimen (specimen) BLOOD SPECIMEN / Unknown 03/22/2019 9:26 EDT 03/22/2019 9:34 EDT us Flex Flores MD CHEMISTRY & BLOOD GAS ORDERABLE S Final Result Performing Organization Address [facility] Co de Phone Number [facility] [address] [place] [address] * (ABNORMAL) ELECTROLYTES (03/22/2019 9:26 EDT) Sodium 152(H) 136 - 145 mEq/L 03/22/2019 9:54 EDT [facility] Potassium 3.5 3.5 - 5.0 mEq/L 03/22/2019 9:54 EDT [facility] Chloride 118(H) 96 - 110 mEq/L 03/22/2019 9:54 EDT [facility] CO2 29 22 - 32 mEq/L 03/22/2019 9:54 EDT [facility] Blood specimen (specimen) BLOOD SPECIMEN / Unknown 03/22/2019 9:26 EDT 03/22/2019 9:34 EDT us Flex Flores MD CHEMISTRY & BLOOD GAS ORDERABLE S Final Result Performing Organization Address City/[facility]/ZIP Co de Phone Number [facility] [address] [place] [address] * (ABNORMAL) GLUCOSE, GLUCOMETER (03/22/2019 6:10 EDT) Glucose, Fingerstick 123(H) 70 - 100 mg/dl 03/22/2019 6:15 EDT [facility] [employer] Supervisor ID [id number] 03/22/2019 6:15 EDT [facility] Comment:Test Performed by Nu ing Services BLOOD SPECIMEN / Unknown 03/22/2019 6:10 EDT 03/22/2019 6:15 EDT us Leticia Galdamez MD CHEMISTRY & BLOOD GAS ORDERAB LES Final Result [facility] [address] [place] [address] * (ABNORMAL) COMPLETE BLOOD COUNT (03/22/2019 4:25 EDT) WBC 6.14 4.0 - 10.4 K/cmm 03/22/2019 4:50 EDT [facility] RBC 2.50(L) 4.36 - 5.78 M/cmm 03/22/2019 4:50 EDT [facility] Hemoglobin 7.9(L) 13.8 - 17.3 gm/dl 03/22/2019 4:50 EDT [facility] HCT 22.5(L) 39.5 - 50.2 % 03/22/2019 4:50 T [facility] MCV 90 81 - 95 fl 03/22/2019 4:50 T [facility] MCH 31.6 27.6 - 33.0 pg 03/22/2019 4:50 [facility] MCHC 35.1 32.8 - 36.4 gm/dl 03/22/2019 4:50 [facility] RDW-CV 15.0(H) <14.2 % 03/22/2019 4:50 [facility] RDW-SD 49.5(H) <46.0 fl 03/22/2019 4:50 [facility] PLT 109(L) 141 - 377 K/cmm 03/22/2019 4:50 [facility] MPV 12.7 9.5 - 12.7 fl 03/22/2019 4:50 T [facility] Blood specimen (specimen) BLOOD SPECIMEN / Unknown 03/22/2019 4:25 EDT 03/22/2019 4:37 EDT us Jonatan Martinez MD HEMATOLOGY & PF4 ORDERABLES F inal Result [facility] [address] [place] [address] * (ABNORMAL) CALCIUM (03/22/2019 4:25 EDT) Calcium 6.9(L) 8.5 - 10.5 mg/dl 03/22/2019 5:10 EDT [facility] Calculated Calcium 8.5 8.5 - 10.5 mg/dl 03/22/2019 5:10 T [facility] Blood specimen (specimen) BLOOD SPECIMEN / Unknown 03/22/2019 4:25 EDT 03/22/2019 4:37 EDT us Kori Nguyen MD CHEMISTRY & BLOOD GAS ORD ERABLES Final Result [facility] [address] [place] [address] * (ABNORMAL) PHOSPHORUS (03/22/2019 4:25 EDT) Phosphorus 5.3(H) 2.5 - 4.5 mg/dl 03/22/2019 5:10 EDT [facility] Blood specimen (specimen) BLOOD SPECIMEN / Unknown 03/22/2019 4:25 EDT 03/22/2019 4:37 EDT us Kori Nguyen MD CHEMISTRY & BLOOD GAS ORD ERABLES Final Result Performing Organization Address [facility] Co de Phone Number [facility] [address] [place] [address] * (ABNORMAL) CREATININE (03/22/2019 4:25 EDT) Creatinine 1.99(H) 0.66 - 1.25 mg/dl 03/22/2019 5:10 EDT [facility] GFR, Calculated 34(L) >60 ml/min/1.7 3m2 03/22/2019 5:10 EDT [facility] Comment: eGFR calculated using CKD-EPI equation for non Americans. Multiply eGFR by 1.16 for Americans. Blood specimen (specimen) BLOOD SPECIMEN / Unknown 03/22/2019 4:25 EDT 03/22/2019 4:37 EDT us Kori Nguyen MD CHEMISTRY & BLOOD GAS ORD ERABLES Final Result Performing Organization Address City/[facility]/ZIP Co de Phone Number [facility] [address] [place] [address] * (ABNORMAL) GLUCOSE, GLUCOMETER (03/22/2019 3:06 EDT) Glucose, Fingerstick 111(H) 70 - 100 mg/dl 03/22/2019 3:11 EDT [facility] [employer] ID [id number] 03/22/2019 3:11 EDT [facility] Comment:Test Performed by [employer] BLOOD SPECIMEN / Unknown 03/22/2019 3:06 EDT 03/22/2019 3:11 EDT Leticia Galdamez MD CHEMISTRY & BLOOD GAS ORDERAB LES Final Result Performing Organization Address City/[facility]/ZIP Co de Phone Number [facility] [address] [place] [address] * (ABNORMAL) GLUCOSE, GLUCOMETER (03/22/2019 1:00 EDT) Glucose, Fingerstick 117(H) 70 - 100 mg/dl 03/22/2019 1:05 EDT [facility] [employer] Supervisor ID [id number] 03/22/2019 1:05 EDT [facility] Comment:Test [facility] BLOOD SPECIMEN / Unknown 03/22/2019 1:00 EDT 03/22/2019 1:05 EDT Leticia Gadlamez MD CHEMISTRY & BLOOD GAS ORDERAB LES Final Result Performing Organization Address [facility] Co de Phone Number [facility] [address] [place] [address] * (ABNORMAL) GLUCOSE, GLUCOMETER (03/22/2019 0:02 EDT) Glucose, Fingerstick 119(H) 70 - 100 mg/dl 03/22/2019 0:07 EDT [facility] [employer] Supervisor ID [id number] 03/22/2019 0:07 EDT [facility] Comment:Test Performed by [facility] BLOOD SPECIMEN / Unknown 03/22/2019 0:02 EDT 03/22/2019 0:07 EDT Leticia Galdamez MD CHEMISTRY & BLOOD GAS ORDERAB LES Final Result Performing Organization Address City/[facility]/ZIP Co de Phone Number [facility] [address] [place] [address] * MAGNESIUM (03/21/2019 23:16 EDT) Magnesium 2.3 1.7 - 2.8 mg/dl 03/21/2019 23:39 EDT [facility] Blood specimen (specimen) BLOOD SPECIMEN / Unknown 03/21/2019 23:16 EDT 03/21/2019 23:20 EDT us Kori Nguyen MD CHEMISTRY & BLOOD GAS ORD ERABLES Final Result Performing Organization Address [facility] de Phone Number [facility] [address] [place] [address] * (ABNORMAL) ELECTROLYTES (03/21/2019 23:16 EDT) Pathologist [facility] Sodium 152(H) 136 - 145 mEq/L 03/21/2019 23:39 EDT [facility] Potassium 4.2 3.5 - 5.0 mEq/L 03/21/2019 23:39 T [facility] Chloride 119(H) 96 - 110 mEq/L 03/21/2019 23:39 EDT [facility] CO2 31 22 - 32 mEq/L 03/21/2019 23:39 T [facility] Blood specimen (specimen) BLOOD SPECIMEN / Unknown 03/21/2019 23:16 EDT 03/21/2019 23:20 EDT us Kori Nguyen MD CHEMISTRY & BLOOD GAS ORD ERABLES Final Result Performing Organization Address [facility] de Phone Number [facility] [address] [place] [address] * (ABNORMAL) COMPLETE BLOOD COUNT (03/21/2019 23:16 EDT) WBC 7.85 4.0 - 10.4 K/cmm 03/21/2019 23:34 T [facility] RBC 2.45(L) 4.36 - 5.78 M/cmm 03/21/2019 23:34 T [facility] Hemoglobin 7.8(L) 13.8 - 17.3 gm/dl 03/21/2019 23:34 [facility] HCT 22.4(L) 39.5 - 50.2 % 03/21/2019 23:34 [facility] MCV 91 81 - 95 fl 03/21/2019 23:34 [facility] MCH 31.8 27.6 - 33.0 pg 03/21/2019 23:34 [facility] MCHC 34.8 32.8 - 36.4 gm/dl 03/21/2019 23:34 [facility] RDW-CV 15.3(H) <14.2 % 03/21/2019 23:34 [facility] RDW-SD 51.0(H) <46.0 fl 03/21/2019 23:34 [facility] PLT 100(L) 141 - 377 K/cmm 03/21/2019 23:34 [facility] MPV 13.0(H) 9.5 - 12.7 fl 03/21/2019 23:34 [facility] Blood specimen (specimen) BLOOD SPECIMEN / Unknown 03/21/2019 23:16 EDT 03/21/2019 23:20 EDT us Jonatan Martinez MD HEMATOLOGY & PF4 ORDERABLES F inal Result [facility] [address] [place] [address] * (ABNORMAL) GLUCOSE, GLUCOMETER (03/21/2019 23:02 EDT) Glucose, Fingerstick 108(H) 70 - 100 mg/dl 03/21/2019 23:07 T [facility] [employer] Supervisor ID [id number] 03/21/2019 23:07 [facility] Comment:Test Performed by [facility] Services BLOOD SPECIMEN / Unknown 03/21/2019 23:02 EDT 03/21/2019 23:07 EDT us Leticia Galdamez MD CHEMISTRY & BLOOD GAS ORDERAB LES Final Result [facility] [address] [place] [address] * (ABNORMAL) GLUCOSE, GLUCOMETER (03/21/2019 22:04 EDT) Glucose, Fingerstick 108(H) 70 - 100 mg/dl 03/21/2019 22:08 EDT [facility] [employer] Supervisor ID [id number] 03/21/2019 22:08 EDT [facility] Comment:Test Performed by Nu rsing Services BLOOD SPECIMEN / Unknown 03/21/2019 22:04 EDT 03/21/2019 22:08 EDT us Leticia Galdamez MD CHEMISTRY & BLOOD GAS ORDERAB LES Final Result [facility] [address] [place] [address] * GLUCOSE, GLUCOMETER (03/21/2019 21:13 EDT) Glucose, Fingerstick 99 70 - 100 mg/dl 03/21/2019 21:17 EDT [facility] [employer] Supervisor ID [id number] 03/21/2019 21:17 EDT [facility] Comment:Test Performed by [employer] BLOOD SPECIMEN / Unknown 03/21/2019 21:13 EDT 03/21/2019 21:17 EDT us Leticia Galdamez MD CHEMISTRY & BLOOD GAS ORDERAB LES Final Result [facility] [address] [place] [address] * GLUCOSE, GLUCOMETER (03/21/2019 19:59 EDT) Glucose, Fingerstick 99 70 - 100 mg/dl 03/21/2019 20:04 EDT [facility] [employer] Supervisor ID [id number] 03/21/2019 20:04 EDT [facility] Comment:Test Performed by [employer] Services BLOOD SPECIMEN / Unknown 03/21/2019 19:59 EDT 03/21/2019 20:04 EDT us Leticia Galdamez MD CHEMISTRY & BLOOD GAS ORDERAB LES Final Result Performing Organization Address City/[facility]/ZIP Co de Phone Number [facility] [address] [place] [address] * (ABNORMAL) GLUCOSE, GLUCOMETER (03/21/2019 19:02 EDT) Glucose, Fingerstick 121(H) 70 - 100 mg/dl 03/21/2019 20:04 EDT [facility] [employer] Supervisor ID [id number] 03/21/2019 20:04 EDT [facility] Comment:Test Performed by Nu [employer] Services BLOOD SPECIMEN / Unknown 03/21/2019 19:02 EDT 03/21/2019 20:04 EDT us Leticia Galdamez MD CHEMISTRY & BLOOD GAS ORDERAB LES Final Result Performing Organization Address [facility] Co de Phone Number [facility] [address] [place] [address] * (ABNORMAL) GLUCOSE, GLUCOMETER (03/21/2019 18:03 EDT) Glucose, Fingerstick 140(H) 70 - 100 mg/dl 03/21/2019 18:08 EDT [facility] [employer] Supervisor ID [id number] 03/21/2019 18:08 EDT [facility] Comment:Test Performed by Nu [employer] Services BLOOD SPECIMEN / Unknown 03/21/2019 18:03 EDT 03/21/2019 18:08 EDT us Leticia Galdamez MD CHEMISTRY & BLOOD GAS ORDERAB LES Final Result Performing Organization Address City/[facility]/ZIP Co de Phone Number [facility] [address] [place] [address] * MAGNESIUM (03/21/2019 17:18 EDT) Magnesium 2.3 1.7 - 2.8 mg/dl 03/21/2019 17:56 EDT [facility] Blood specimen (specimen) BLOOD SPECIMEN / Unknown 03/21/2019 17:18 EDT 03/21/2019 17:28 EDT us Kori Nguyen MD CHEMISTRY & BLOOD GAS ORD ERABLES Final Result Performing Organization Address [facility] de Phone Number [facility] [address] [place] [address] * (ABNORMAL) ELECTROLYTES (03/21/2019 17:18 EDT) Sodium 154(H) 136 - 145 mEq/L 03/21/2019 17:56 EDT [facility] Potassium 4.5 3.5 - 5.0 mEq/L 03/21/2019 17:56 EDT [facility] Chloride 119(H) 96 - 110 mEq/L 03/21/2019 17:56 EDT [facility] CO2 29 22 - 32 mEq/L 03/21/2019 17:56 EDT [facility] Blood specimen (specimen) BLOOD SPECIMEN / Unknown 03/21/2019 17:18 EDT 03/21/2019 17:28 EDT us Kori Nguyen MD CHEMISTRY & BLOOD GAS ORD ERABLES Final Result Performing Organization Address [facility] Co de Phone Number [facility] [address] [place] [address] * (ABNORMAL) COMPLETE BLOOD COUNT (03/21/2019 17:18 EDT) WBC 9.43 4.0 - 10.4 K/cmm 03/21/2019 17:50 EDT [facility] RBC 2.58(L) 4.36 - 5.78 M/cmm 03/21/2019 17:50 EDT [facility] Hemoglobin 8.1(L) 13.8 - 17.3 gm/dl 03/21/2019 17:50 EDT [facility] HCT 23.3(L) 39.5 - 50.2 % 03/21/2019 17:50 T [facility] MCV 90 81 - 95 fl 03/21/2019 17:50 T [facility] MCH 31.4 27.6 - 33.0 pg 03/21/2019 17:50 [facility] MCHC 34.8 32.8 - 36.4 gm/dl 03/21/2019 17:50 T [facility] RDW-CV 15.3(H) <14.2 % 03/21/2019 17:50 T [facility] RDW-SD 50.2(H) <46.0 fl 03/21/2019 17:50 [facility] PLT 98(L) 141 - 377 K/cmm 03/21/2019 17:50 [facility] MPV 12.6 9.5 - 12.7 fl 03/21/2019 17:50 [facility] Blood specimen (specimen) BLOOD SPECIMEN / Unknown 03/21/2019 17:18 EDT 03/21/2019 17:28 EDT us Jonatan Martinez MD HEMATOLOGY & PF4 ORDERABLES F inal Result [facility] [address] [place] [address] * (ABNORMAL) D-DIMER (03/21/2019 17:18 EDT) D-Dimer 565(H) <230 ng/mL 03/21/2019 17:54 EDT [facility] Comment: CUTOFF VALUE FOR THE EXCLUSION OF DVT and PE: 230 ng/mL D-dimer units Any use of the age-adjusted cutoff value is a post-analytic modification of this FDA-approved test and is considered off-label use of the test result. [facility] laboratory does not have literature to support the validity of an age-adjusted cutoff for our specific assay. Blood specimen (specimen) BLOOD SPECIMEN / Unknown 03/21/2019 17:18 EDT 03/21/2019 17:28 EDT us Flex Flores MD HEMATOLOGY & PF4 ORDERABLES Fin al Result Performing Organization Address [facility] Co de Phone Number [facility] [address] [place] [address] * FIBRINOGEN (03/21/2019 17:18 EDT) Fibrinogen 319 171 - 384 mg/dl 03/21/2019 18:19 EDT [facility] Blood specimen (specimen) BLOOD SPECIMEN / Unknown 03/21/2019 17:18 EDT 03/21/2019 17:28 EDT us Flex Flores MD HEMATOLOGY & PF4 ORDERABLES Fin al Result Performing Organization Address [facility] Co de Phone Number [facility] [address] [place] [address] * PTT (03/21/2019 17:18 EDT) PTT 27 26 - 37 secs 03/21/2019 17:54 EDT [facility] Blood specimen (specimen) BLOOD SPECIMEN / Unknown 03/21/2019 17:18 EDT 03/21/2019 17:28 EDT us Flex Flores MD HEMATOLOGY & PF4 ORDERABLES Fin al Result Performing Organization Address [facility] Co de Phone Number [facility] [address] [place] [address] * (ABNORMAL) GLUCOSE, GLUCOMETER (03/21/2019 17:04 EDT) Glucose, Fingerstick 159(H) 70 - 100 mg/dl 03/21/2019 17:09 EDT [facility] [employer] Supervisor ID [id number] 03/21/2019 17:09 EDT [facility] Comment:Test Performed by [facility] BLOOD SPECIMEN / Unknown 03/21/2019 17:04 EDT 03/21/2019 17:09 EDT us Leticia Galdamez MD CHEMISTRY & BLOOD GAS ORDERAB LES Final Result [facility] [address] [place] [address] * SURGICAL PATHOLOGY (03/21/2019 16:23 EDT) Pathology Report: SURGICAL PATHOLOGY REPORT Reports generated via electronic interface contain original data; however they are lacking the format of the original report. Caution should be taken when reading/interpret ing unformatted reports. Name: ? SHIRLENE BRYAN ? Accession #: ? [id number] ? : ? 1955 (Age: 64) ??M [...] (ASCP) 03/21/2019 5:42 PM End of Report [facility] 03/21/2019 16:2 3 EDT 03/21/2019 16:23 EDT Jeyson Garcia MD PATHOLOGY ORDERABLES Final Result Performing Organization Address City/[facility]/ZIP Co de Phone Number [facility] [address] [place] [address] * (ABNORMAL) GLUCOSE, GLUCOMETER (03/21/2019 16:05 EDT) Glucose, Fingerstick 179(H) 70 - 100 mg/dl 03/21/2019 16:09 EDT [facility] [employer] Supervisor ID [id number] 03/21/2019 16:09 EDT [facility] Comment:[facility] [employer] BLOOD SPECIMEN / Unknown 03/21/2019 16:05 EDT 03/21/2019 16:09 EDT us Leticia Galdamez MD CHEMISTRY & BLOOD GAS ORDERAB LES Final Result Performing Organization Address [facility] Co de Phone Number [facility] [address] [place] [address] * (ABNORMAL) GLUCOSE, GLUCOMETER (03/21/2019 14:59 EDT) Glucose, Fingerstick 189(H) 70 - 100 mg/dl 03/21/2019 15:03 EDT [facility] [employer] ID [id number] 03/21/2019 15:03 EDT [facility] Comment:Test [facility] [employer] BLOOD SPECIMEN / Unknown 03/21/2019 14:59 EDT 03/21/2019 15:03 EDT Leticia Galdamez MD CHEMISTRY & BLOOD GAS ORDERAB LES Final Result Performing Organization Address City/[facility]/ZIP Co de Phone Number [facility] [address] [place] [address] * XRAY FEEDING TUBE PLACEMENT (03/21/2019 14:19 [...] 70 - 100 mg/dl 03/21/2019 13:58 EDT [facility] [employer] ID [id number] 03/21/2019 13:58 EDT [facility] Comment:Test Per[facility] BLOOD SPECIMEN / Unknown 03/21/2019 13:53 EDT 03/21/2019 13:58 EDT us Leticia Galdamez MD CHEMISTRY & BLOOD GAS ORDERAB LES Final Result Performing Organization Address [facility] Co de Phone Number [facility] [address] [place] [address] * (ABNORMAL) GLUCOSE, GLUCOMETER (03/21/2019 11:26 EDT) Glucose, Fingerstick 228(H) 70 - 100 mg/dl 03/21/2019 11:30 EDT [facility] [employer] Supervisor ID [id number] 03/21/2019 11:30 EDT [facility] Comment:Test Performed by [facility] BLOOD SPECIMEN / Unknown 03/21/2019 11:26 EDT 03/21/2019 11:30 EDT us Leticia Galdamez MD CHEMISTRY & BLOOD GAS ORDERAB LES Final Result Performing Organization Address [facility] Co de Phone Number [facility] [address] [place] [address] * MAGNESIUM (03/21/2019 11:22 EDT) Magnesium 2.4 1.7 - 2.8 mg/dl 03/21/2019 12:00 EDT [facility] Blood specimen (specimen) BLOOD SPECIMEN / Unknown 03/21/2019 11:22 EDT 03/21/2019 11:38 EDT us Kori Nguyen MD CHEMISTRY & BLOOD GAS ORD ERABLES Final Result Performing Organization Address [facility]/ZIP Co de Phone Number [facility] [address] [place] [address] * (ABNORMAL) ELECTROLYTES (03/21/2019 11:22 EDT) Sodium 151(H) 136 - 145 mEq/L 03/21/2019 12:00 EDT [facility] Potassium 5.2(H) 3.5 - 5.0 mEq/L 03/21/2019 12:00 EDT [facility] Chloride 117(H) 96 - 110 mEq/L 03/21/2019 12:00 T [facility] CO2 29 22 - 32 mEq/L 03/21/2019 12:00 [facility] Blood specimen (specimen) BLOOD SPECIMEN / Unknown 03/21/2019 11:22 EDT 03/21/2019 11:38 EDT us Kori Nguyen MD CHEMISTRY & BLOOD GAS ORD ERABLES Final Result [facility] [address] [place] [address] * (ABNORMAL) COMPLETE BLOOD COUNT (03/21/2019 11:22 EDT) WBC 10.34 4.0 - 10.4 K/cmm 03/21/2019 11:48 [facility] RBC 2.83(L) 4.36 - 5.78 M/cmm 03/21/2019 11:48 [facility] Hemoglobin 9.2(L) 13.8 - 17.3 gm/dl 03/21/2019 11:48 [facility] HCT 25.5(L) 39.5 - 50.2 % 03/21/2019 11:48 [facility] MCV 90 81 - 95 fl 03/21/2019 11:48 [facility] MCH 32.5 27.6 - 33.0 pg 03/21/2019 11:48 [facility] MCHC 36.1 32.8 - 36.4 gm/dl 03/21/2019 11:48 [facility] RDW-CV 15.4(H) <14.2 % 03/21/2019 11:48 [facility] RDW-SD 50.5(H) <46.0 fl 03/21/2019 11:48 [facility] PLT 105(L) 141 - 377 K/cmm 03/21/2019 11:48 [facility] MPV 12.7 9.5 - 12.7 fl 03/21/2019 11:48 EDT [facility] Blood specimen (specimen) BLOOD SPECIMEN / Unknown 03/21/2019 11:22 EDT 03/21/2019 11:38 EDT Jonatan Martinez MD HEMATOLOGY & PF4 ORDERABLES F inal Result Performing Organization Address [facility] Co de Phone Number [facility] [address] [place] [address] * (ABNORMAL) D-DIMER (03/21/2019 11:22 EDT) D-Dimer 707(H) <230 ng/mL 03/21/2019 12:06 EDT [facility] Comment: CUTOFF VALUE FOR THE EXCLUSION OF DVT and PE: 230 ng/mL D-dimer units Any use of the age-adjusted cutoff value is a post-analytic modification of this FDA-approved test and is considered off-label use of the test result. [facility] laboratory does not have literature to support the validity of an age-adjusted cutoff for our specific assay. Blood specimen (specimen) BLOOD SPECIMEN / Unknown 03/21/2019 11:22 EDT 03/21/2019 11:38 EDT Flex Flores MD HEMATOLOGY & PF4 ORDERABLES Fin al Result Performing Organization Address [facility] Co de Phone Number [facility] [address] [place] [id number] * FIBRINOGEN (03/21/2019 11:22 EDT) Fibrinogen 310 171 - 384 mg/dl 03/21/2019 12:12 EDT [facility] Blood specimen (specimen) BLOOD SPECIMEN / Unknown 03/21/2019 11:22 EDT 03/21/2019 11:38 EDT Flex Flores MD HEMATOLOGY & PF4 ORDERABLES Fin al Result Performing Organization Address [facility] Co de Phone Number [facility] [address] [place] [address] * PTT (03/21/2019 11:22 EDT) PTT 28 26 - 37 secs 03/21/2019 12:06 EDT [facility] Blood specimen (specimen) BLOOD SPECIMEN / Unknown 03/21/2019 11:22 EDT 03/21/2019 11:38 EDT us Flex Flores MD HEMATOLOGY & PF4 ORDERABLES Fin al Result Performing Organization Address City/[facility]/ZIP Co de Phone Number [facility] [address] [place] [address] * LACTIC ACID (03/21/2019 11:21 EDT) Lactic Acid 1.8 <2.1 mmol/L 03/21/2019 11:55 EDT [facility] Blood specimen (specimen) BLOOD SPECIMEN / Unknown 03/21/2019 11:21 EDT 03/21/2019 11:37 EDT us Kori Nguyen MD CHEMISTRY & BLOOD GAS ORD ERABLES Final Result Performing Organization Address [facility] de Phone Number [facility] [address] [place] [address] * ECG REPORT - SCANNED (03/21/2019 7:21 EDT) 03/21/2019 7:21 EDT us Scan 2 Assistant Operations Manager PROCEDURE/MINOR SURGICAL OR DERABLES Final Result * (ABNORMAL) GLUCOSE, GLUCOMETER (03/21/2019 6:14 EDT) Glucose, Fingerstick 190(H) 70 - 100 mg/dl 03/21/2019 6:16 EDT [facility] [employer] Supervisor ID [id number] 03/21/2019 6:16 EDT [facility] Comment:[facility] BLOOD SPECIMEN / Unknown 03/21/2019 6:14 EDT 03/21/2019 6:16 EDT us Leticia Galdamez MD CHEMISTRY & BLOOD GAS ORDERAB LES Final Result Performing Organization Address City/[facility]/ZIP Co de Phone Number [facility] [address] [place] [address] * MAGNESIUM (03/21/2019 4:43 EDT) Magnesium 2.5 1.7 - 2.8 mg/dl 03/21/2019 5:17 EDT [facility] Blood specimen (specimen) BLOOD SPECIMEN / Unknown 03/21/2019 4:43 EDT 03/21/2019 4:47 EDT us Kori Nguyen MD CHEMISTRY & BLOOD GAS ORD ERABLES Final Result Performing Organization Address [facility] Co de Phone Number [facility] [address] [place] [address] * (ABNORMAL) ELECTROLYTES (03/21/2019 4:43 EDT) Pathologist [facility] Sodium 149(H) 136 - 145 mEq/L 03/21/2019 5:17 EDT [facility] Potassium 5.4(H) 3.5 - 5.0 mEq/L 03/21/2019 5:17 EDT [facility] Chloride 114(H) 96 - 110 mEq/L 03/21/2019 5:17 EDT [facility] CO2 29 22 - 32 mEq/L 03/21/2019 5:17 EDT [facility] Blood specimen (specimen) BLOOD SPECIMEN / Unknown 03/21/2019 4:43 EDT 03/21/2019 4:47 EDT us Kori Nguyen MD CHEMISTRY & BLOOD GAS ORD ERABLES Final Result Performing Organization Address [facility]/ZIP Co de Phone Number [facility] [address] [place] [address] * (ABNORMAL) COMPLETE BLOOD COUNT (03/21/2019 4:43 EDT) WBC 16.39(H) 4.0 - 10.4 K/cmm 03/21/2019 5:03 [facility] RBC 3.09(L) 4.36 - 5.78 M/cmm 03/21/2019 5:03 [facility] Hemoglobin 9.6(L) 13.8 - 17.3 gm/dl 03/21/2019 5:03 [facility] HCT 27.7(L) 39.5 - 50.2 % 03/21/2019 5:03 [facility] MCV 90 81 - 95 fl 03/21/2019 5:03 [facility] MCH 31.1 27.6 - 33.0 pg 03/21/2019 5:03 [facility] MCHC 34.7 32.8 - 36.4 gm/dl 03/21/2019 5:03 [facility] RDW-CV 15.2(H) <14.2 % 03/21/2019 5:03 [facility] RDW-SD 49.1(H) <46.0 fl 03/21/2019 5:03 [facility] PLT 102(L) 141 - 377 K/cmm 03/21/2019 5:03 [facility] MPV 12.2 9.5 - 12.7 fl 03/21/2019 5:03 [facility] Blood specimen (specimen) BLOOD SPECIMEN / Unknown 03/21/2019 4:43 EDT 03/21/2019 4:47 EDT us Jonatan Martinez MD HEMATOLOGY & PF4 ORDERABLES F inal Result [facility] [address] [place] [address] * (ABNORMAL) D-DIMER (03/21/2019 4:43 EDT) D-Dimer 1,083(H) <230 ng/mL 03/21/2019 5:11 [facility] Comment: CUTOFF VALUE FOR THE EXCLUSION OF DVT and PE: 230 ng/mL D-dimer units Any use of the age-adjusted cutoff value is a post-analytic modification of this FDA-approved test and is considered off-label use of the test result. [facility] laboratory does not have literature to support the validity of an age-adjusted cutoff for our specific assay. Blood specimen (specimen) BLOOD SPECIMEN / Unknown 03/21/2019 4:43 EDT 03/21/2019 4:47 EDT us Flex Flores MD HEMATOLOGY & PF4 ORDERABLES Fin al Result Performing Organization Address City/[facility] Co de Phone Number [facility] [address] [place] [address] * FIBRINOGEN (03/21/2019 4:43 EDT) Fibrinogen 271 171 - 384 mg/dl 03/21/2019 5:10 EDT [facility] Blood specimen (specimen) BLOOD SPECIMEN / Unknown 03/21/2019 4:43 EDT 03/21/2019 4:47 EDT us Flex Flores MD HEMATOLOGY & PF4 ORDERABLES Fin al Result Performing Organization Address [facility] Co de Phone Number [facility] [address] [place] [address] * PTT (03/21/2019 4:43 EDT) PTT 28 26 - 37 secs 03/21/2019 5:11 EDT [facility] Blood specimen (specimen) BLOOD SPECIMEN / Unknown 03/21/2019 4:43 EDT 03/21/2019 4:47 EDT us Flex Flores MD HEMATOLOGY & PF4 ORDERABLES Fin al Result Performing Organization Address [facility] Co de Phone Number [facility] [address] [place] [address] * (ABNORMAL) CALCIUM (03/21/2019 1:15 EDT) Calcium 6.8(L) 8.5 - 10.5 mg/dl 03/21/2019 1:40 EDT [facility] Calculated Calcium 8.3(L) 8.5 - 10.5 mg/dl 03/21/2019 1:40 EDT [facility] Blood specimen (specimen) BLOOD SPECIMEN / Unknown 03/21/2019 1:15 EDT 03/21/2019 1:22 EDT us Kori Nguyen MD CHEMISTRY & BLOOD GAS ORD ERABLES Final Result Performing Organization Address City/[facility] Co de Phone Number [facility] [address] [place] [address] * (ABNORMAL) PHOSPHORUS (03/21/2019 1:15 EDT) Phosphorus 6.1(H) 2.5 - 4.5 mg/dl 03/21/2019 1:40 EDT [facility] Blood specimen (specimen) BLOOD SPECIMEN / Unknown 03/21/2019 1:15 EDT 03/21/2019 1:22 EDT us Kori Nguyen MD CHEMISTRY & BLOOD GAS ORD ERABLES Final Result Performing Organization Address [facility] de Phone Number [facility] [address] [place] [address] * (ABNORMAL) CREATININE (03/21/2019 1:15 EDT) Creatinine 2.21(H) 0.66 - 1.25 mg/dl 03/21/2019 1:40 EDT [facility] GFR, Calculated 30(L) >60 ml/min/1.7 3m2 03/21/2019 1:40 EDT [facility] Comment: eGFR calculated using CKD-EPI equation for non Americans. Multiply eGFR by 1.16 for Americans. Blood specimen (specimen) BLOOD SPECIMEN / Unknown 03/21/2019 1:15 EDT 03/21/2019 1:22 EDT us Kori Nguyen MD CHEMISTRY & BLOOD GAS ORD ERABLES Final Result Performing Organization Address City/[facility] Co de Phone Number [facility] [address] [place] [address] * (ABNORMAL) LACTIC ACID (03/21/2019 1:15 EDT) Lactic Acid 2.3(HH) <2.1 mmol/L 03/21/2019 1:38 EDT [facility] Blood specimen (specimen) BLOOD SPECIMEN / Unknown 03/21/2019 1:15 EDT 03/21/2019 1:20 EDT Flex Flores MD CHEMISTRY & BLOOD GAS ORDERABLE S Final Result Performing Organization Address [facility] de Phone Number [facility] [address] [place] [address] * (ABNORMAL) D-DIMER (03/21/2019 1:15 EDT) [facility] D-Dimer 1,966(H) <230 ng/mL 03/21/2019 2:21 EDT [facility] Comment: CUTOFF VALUE FOR THE EXCLUSION OF DVT and PE: 230 ng/mL D-dimer units Any use of the age-adjusted cutoff value is a post-analytic modification of this FDA-approved test and is considered off-label use of the test result. [facility] laboratory does not have literature to support the validity of an age-adjusted cutoff for our specific assay. Blood specimen (specimen) BLOOD SPECIMEN / Unknown 03/21/2019 1:15 EDT 03/21/2019 1:22 EDT Flex Flores MD HEMATOLOGY & PF4 ORDERABLES Fin al Result Performing Organization Address [facility] Co de Phone Number [facility] [address] [place] [address] * FIBRINOGEN (03/21/2019 1:15 EDT) Pathologist [facility] Fibrinogen 289 171 - 384 mg/dl 03/21/2019 2:20 EDT [facility] Blood specimen (specimen) BLOOD SPECIMEN / Unknown 03/21/2019 1:15 EDT 03/21/2019 1:22 EDT us Flex Flores MD HEMATOLOGY & PF4 ORDERABLES Fin al Result Performing Organization Address City/[facility] Co de Phone Number [facility] [address] [place] [address] * PTT (03/21/2019 1:15 EDT) PTT 27 26 - 37 secs 03/21/2019 2:29 EDT [facility] Blood specimen (specimen) BLOOD SPECIMEN / Unknown 03/21/2019 1:15 EDT 03/21/2019 1:22 EDT Flex Flores MD HEMATOLOGY & PF4 ORDERABLES Fin al Result Performing Organization Address [facility] de Phone Number [facility] [address] [place] [address] * (ABNORMAL) COMPLETE BLOOD COUNT (03/21/2019 1:15 EDT) WBC 19.26(H) 4.0 - 10.4 K/cmm 03/21/2019 1:45 [facility] RBC 3.13(L) 4.36 - 5.78 M/cmm 03/21/2019 1:45 [facility] Hemoglobin 9.9(L) 13.8 - 17.3 gm/dl 03/21/2019 1:45 [facility] HCT 27.9(L) 39.5 - 50.2 % 03/21/2019 1:45 [facility] MCV 89 81 - 95 fl 03/21/2019 1:45 [facility] MCH 31.6 27.6 - 33.0 pg 03/21/2019 1:45 [facility] MCHC 35.5 32.8 - 36.4 gm/dl 03/21/2019 1:45 [facility] RDW-CV 14.9(H) <14.2 % 03/21/2019 1:45 [facility] RDW-SD 48.0(H) <46.0 fl 03/21/2019 1:45 EDT [facility] PLT 114(L) 141 - 377 K/cmm 03/21/2019 1:45 EDT [facility] MPV 12.4 9.5 - 12.7 fl 03/21/2019 1:45 EDT [facility] Blood specimen (specimen) BLOOD SPECIMEN / Unknown 03/21/2019 1:15 EDT 03/21/2019 1:22 EDT us Jonatan Martinez MD HEMATOLOGY & PF4 ORDERABLES F inal Result Performing Organization Address [facility]/ZIP Co de Phone Number [facility] [address] [place] [address] * MAGNESIUM (03/21/2019 1:15 EDT) Magnesium 2.4 1.7 - 2.8 mg/dl 03/21/2019 1:40 EDT [facility] Blood specimen (specimen) BLOOD SPECIMEN / Unknown 03/21/2019 1:15 EDT 03/21/2019 1:22 EDT us Kori Nguyen MD CHEMISTRY & BLOOD GAS ORD ERABLES Final Result Performing Organization Address [facility] Co de Phone Number [facility] [address] [place] [address] * (ABNORMAL) ELECTROLYTES (03/21/2019 1:15 EDT) Sodium 150(H) 136 - 145 mEq/L 03/21/2019 1:40 EDT [facility] Potassium 5.4(H) 3.5 - 5.0 mEq/L 03/21/2019 1:40 EDT [facility] Chloride 117(H) 96 - 110 mEq/L 03/21/2019 1:40 EDT [facility] CO2 28 22 - 32 mEq/L 03/21/2019 1:40 EDT [facility] Blood specimen (specimen) BLOOD SPECIMEN / Unknown 03/21/2019 1:15 EDT 03/21/2019 1:22 EDT Kori Nguyen MD CHEMISTRY & BLOOD GAS ORD ERABLES Final Result Performing Organization Address [facility] Co de Phone Number [facility] [address] [place] [address] * (ABNORMAL) GLUCOSE, GLUCOMETER (03/21/2019 1:14 EDT) Glucose, Fingerstick 165(H) 70 - 100 mg/dl 03/21/2019 1:18 EDT [facility] [employer] Supervisor ID [id number] 03/21/2019 1:18 EDT [facility] Comment:Test Performed by [facility] Services BLOOD SPECIMEN / Unknown 03/21/2019 1:14 EDT 03/21/2019 1:18 EDT Leticia Galdamez MD CHEMISTRY & BLOOD GAS ORDERAB LES Final Result Performing Organization Address City/[facility] Co de Phone Number [facility] [address] [place] [address] * TRANSFUSE RED BLOOD CELLS (03/21/2019 0:29 [...] in the Hematology lab 03/20/2019 22:13 EDT [facility] BLOOD SPECIMEN / Unknown 03/20/2019 21:15 EDT 03/20/2019 21:24 EDT us Kori Nguyen MD HEMATOLOGY & PF4 ORDERABL ES Final Result Performing Organization Address City/[facility]/ZIP Co de Phone Number [facility] [address] [place] [address] * (ABNORMAL) LACTIC ACID (03/20/2019 21:15 EDT) Lactic Acid 5.2(HH) <2.1 mmol/L 03/20/2019 21:46 EDT [facility] Blood specimen (specimen) BLOOD SPECIMEN / Unknown 03/20/2019 21:15 EDT 03/20/2019 21:24 EDT us Sirisha Lawson MD CHEMISTRY & BLOOD GAS O RDERABLES Final Result Performing Organization Address City/[facility]/ZIP Co de Phone Number [facility] [address] [place] [address] * (ABNORMAL) COMPLETE BLOOD COUNT (03/20/2019 21:15 EDT) WBC 31.05(H) 4.0 - 10.4 K/cmm 03/20/2019 21:46 EDT [facility] RBC 2.75(L) 4.36 - 5.78 M/cmm 03/20/2019 21:46 EDT [facility] Hemoglobin 8.9(L) 13.8 - 17.3 gm/dl 03/20/2019 21:46 EDT [facility] HCT 24.9(L) 39.5 - 50.2 % 03/20/2019 21:46 EDT [facility] MCV 91 81 - 95 fl 03/20/2019 21:46 EDT [facility] MCH 32.4 27.6 - 33.0 pg 03/20/2019 21:46 T [facility] MCHC 35.7 32.8 - 36.4 gm/dl 03/20/2019 21:46 EDT [facility] RDW-CV 14.9(H) <14.2 % 03/20/2019 21:46 EDT [facility] RDW-SD 49.4(H) <46.0 fl 03/20/2019 21:46 T [facility] PLT 151 141 - 377 K/cmm 03/20/2019 21:46 T [facility] MPV 12.1 9.5 - 12.7 fl 03/20/2019 21:46 EDT [facility] Blood specimen (specimen) BLOOD SPECIMEN / Unknown 03/20/2019 21:15 EDT 03/20/2019 21:24 EDT us Jonatan Martinez MD HEMATOLOGY & PF4 ORDERABLES F inal Result [facility] [address] [place] [address] * MAGNESIUM (03/20/2019 21:15 EDT) Magnesium 2.6 1.7 - 2.8 mg/dl 03/20/2019 21:45 EDT [facility] Blood specimen (specimen) BLOOD SPECIMEN / Unknown 03/20/2019 21:15 EDT 03/20/2019 21:24 EDT us Kori Nguyen MD CHEMISTRY & BLOOD GAS ORD ERABLES Final Result Performing Organization Address [facility]/ZIP Co de Phone Number [facility] [address] [place] [address] * BACTERIAL CULTURE, BLOOD (03/20/2019 20:36 EDT) Result No growth 03/25/2019 7:29 EDT [facility] Blood specimen (specimen) BLOOD SPECIMEN / Unknown 03/20/2019 20:36 EDT 03/20/2019 21:04 EDT Comment:Right~Arm Jonatan Martinez MD MICROBIOLOGY - GENERAL ORDERA BLES Final Result Performing Organization Address [facility] Co de Phone Number [facility] [address] [place] [address] * PREPARE RED BLOOD CELLS (03/20/2019 19:54 EDT) Product Code [id number] [facility] Donor Number [id number] U [facility] BLOOD B[facility] Unit ABO O [facility] BLOOD B[facility] Unit Rh POS [facility] BLOOD [facility] Unit Status TR^Transfuse [facility] Product Expiration Date [id number] [facility] Unit Blood Type Code 5100 [facility] Coding System [id number] [facility] BLOOD BANK Blood specimen (specimen) 03/20/2019 19:54 EDT Flex Flores MD BLOOD BANK ORDERABLES Final Res ult [facility] [address] [place] [address] * TRANSFUSE RED BLOOD CELLS (03/20/2019 19:53 [...] 17:37 EDT) ABO O [facility] Rh Factor Positive [facility] Blood specimen (specimen) 03/20/2019 17:37 EDT Jonatan Martinez MD BLOOD BANK TESTS Final Result Performing Organization Address City/[facility] Co de Phone Number [facility] [address] [place] [address] * PREPARE PLATELETS (03/20/2019 17:36 EDT) Product Code [id number] [facility] Donor Number [id number] U [facility] Unit ABO O [facility] Unit Rh POS [facility] Unit Status TR^Transfuse [facility] BLOOD [facility] Product Expiration Date [id number] [facility] Unit Blood Type Code 5100 [facility] Coding System [id number] [facility] BLOOD [facility] Blood specimen (specimen) 03/20/2019 17:36 EDT Jonatan Martinez MD BLOOD BANK ORDERABLES Final R esult Performing Organization Address City/[facility]/ZIP Co de Phone Number [facility] [address] [place] [address] * PREPARE RED BLOOD CELLS (03/20/2019 17:34 EDT) Product Code [id number] [facility] BLOOD [facility]ANK Donor Number [id number] [facility] BLOOD B[facility] Unit ABO O [facility] Unit Rh POS [facility] Unit Status TR^Transfuse [facility] BLOOD [facility] Product Expiration Date [id number] [facility] Unit Blood Type Code 5100 [facility] Coding System [id number] [facility] BLOOD [facility] 03/20/2019 17:3 4 EDT Jonatan Martinez MD BLOOD BANK ORDERABLES Final R esult [facility] BLOOD [facility]ANK [address] [place] [address] * (ABNORMAL) PTT (03/20/2019 17:34 EDT) PTT 109(HH) 26 - 37 secs 03/20/2019 18:13 EDT [facility] LABOR[facility]ORY SERVICES BLOOD SPECIMEN / Unknown 03/20/2019 17:34 EDT 03/20/2019 17:42 EDT Leticia Galdamez MD HEMATOLOGY & PF4 ORDERABLES F inal Result Performing Organization Address [facility] Co de Phone Number [facility] [address] [place] [address] * (ABNORMAL) PROTIME (03/20/2019 17:34 EDT) Pro Time 20.2(H) 10.3 - 13.4 secs 03/20/2019 18:10 EDT [facility] I.N.R. 1.7(H) 0.9 - 1.1 Ratio 03/20/2019 18:10 EDT [facility] Comment: Moderate Intensity Coumadin INR = 2.0-3.0 Adjustments in anticoagulant therapy dose should be based upon the INR and NOT the Pro Time. BLOOD SPECIMEN / Unknown 03/20/2019 17:34 EDT 03/20/2019 17:42 EDT Leticia Galdamez MD HEMATOLOGY & PF4 ORDERABLES F inal Result Performing Organization Address [facility]/ZIP Co de Phone Number [facility] [address] [place] [address] * FIBRINOGEN (03/20/2019 17:34 EDT) Fibrinogen 285 171 - 384 mg/dl 03/20/2019 18:10 EDT [facility] BLOOD SPECIMEN / Unknown 03/20/2019 17:34 EDT 03/20/2019 17:42 EDT Leticia Galdamez MD HEMATOLOGY & PF4 ORDERABLES F inal Result Performing Organization Address City/[facility]/ZIP Co de Phone Number [facility] [address] [place] [address] * PREPARE RED BLOOD CELLS (03/20/2019 17:34 EDT) Product Code [id number] [facility] Donor Number [id number] U [facility] B[facility] Unit ABO O [facility] B[facility]OD [facility] Unit Rh POS [facility]LOOD [facility] Unit Status TR^Transfuse [facility] Product Expiration Date [id number] [facility] Unit Blood Type Code 5100 [facility] Coding System [id number] [facility] B[facility]OD BANK Blood specimen (specimen) 03/20/2019 17:34 EDT Jonatan Martinez MD BLOOD BANK ORDERABLES Final R esult Performing Organization Address [facility] de Phone Number [facility] [address] [place] [address] * TYPE AND SCREEN (03/20/2019 17:18 EDT) Antibody Screen Negative [facility] Comment: Patient is electronic crossmatch eligible. Units available upon request for transfusion. Specimen Expires: 03/23/2019 @ 23:59 [facility] ABO O [facility]LO[facility] Rh Factor Positive [facility] Blood specimen (specimen) 03/20/2019 17:18 EDT Jonatan Martinez MD BLOOD BANK TESTS Final Result Performing Organization Address City/[facility]/ZIP Co de Phone Number [facility] [address] [facility] [place] [address] * (ABNORMAL) GLUCOSE, GLUCOMETER (03/20/2019 16:54 EDT) Glucose, Fingerstick 154(H) 70 - 100 mg/dl 03/20/2019 17:01 EDT [facility] [employer] Supervisor ID [id number] 03/20/2019 17:01 EDT [facility] Comment:[facility] BLOOD SPECIMEN / Unknown 03/20/2019 16:54 EDT 03/20/2019 17:01 EDT us Leticia Galdamez MD CHEMISTRY & BLOOD GAS ORDERAB LES Final Result [facility] [address] [place] [address] * RAD US DOPPLER LOWER EXTREMITY VENOUS [...] with the findings. us Jonatan Martinez MD [facility] US ORDERABLES Final Resul t * (ABNORMAL) COMPLETE BLOOD COUNT (03/20/2019 16:46 EDT) WBC 14.03(H) 4.0 - 10.4 K/cmm 03/20/2019 17:24 [facility] RBC 1.81(L) 4.36 - 5.78 M/cmm 03/20/2019 17:24 [facility] Hemoglobin 5.8(LL) 13.8 - 17.3 gm/dl 03/20/2019 17:24 [facility] HCT 16.9(LL) 39.5 - 50.2 % 03/20/2019 17:24 [facility] MCV 93 81 - 95 fl 03/20/2019 17:24 [facility] MCH 32.0 27.6 - 33.0 pg 03/20/2019 17:24 [facility] MCHC 34.3 32.8 - 36.4 gm/dl 03/20/2019 17:24 [facility] RDW-CV 15.6(H) <14.2 % 03/20/2019 17:24 [facility] RDW-SD 53.9(H) <46.0 fl 03/20/2019 17:24 [facility] PLT 47(L) 141 - 377 K/cmm 03/20/2019 17:24 [facility] MPV 11.8 9.5 - 12.7 fl 03/20/2019 17:24 [facility] Blood specimen (specimen) BLOOD SPECIMEN / Unknown 03/20/2019 16:46 EDT 03/20/2019 17:01 EDT us Jonatan Martinez MD HEMATOLOGY & PF4 ORDERABLES F inal Result Performing Organization Address [facility] Co de Phone Number [facility] [address] [place] [address] * (ABNORMAL) BLOOD GAS, G3 ISTAT (03/20/2019 15:01 EDT) pH, i-STAT 7.29(L) 7.35 - 7.45 03/20/2019 15:08 EDT [facility] pCO2, i-STAT 59(H) 35 - 45 mmHg 03/20/2019 15:08 EDT [facility] pO2, i-STAT 77(L) 80 - 105 mmHg 03/20/2019 15:08 EDT [facility] TCO2, i-STAT 30(H) 23 - 27 mEq/L 03/20/2019 15:08 EDT [facility] O2 Saturation 93(L) 95 - 98 % 03/20/2019 15:08 T [facility] Base Excess, i-STAT 1 03/20/2019 15:08 T [facility] Sample Type ARTERIAL 03/20/2019 15:08 T [facility] fish technologist ID [id number] 03/20/2019 15:08 T [facility] Comment: Test Performed by Respiratory For non-arterial reference ranges, please see ISTAT procedure. BLOOD SPECIMEN / Unknown 03/20/2019 15:01 EDT 03/20/2019 15:08 EDT us Leticia Galdamez MD CHEMISTRY & BLOOD GAS ORDERAB LES Final Result Performing Organization Address [facility]/ZIP Co de Phone Number [facility] [address] [place] [address] * (ABNORMAL) BLOOD GAS, G3 ISTAT (03/20/2019 14:56 EDT) pH, i-STAT 7.28(L) 7.35 - 7.45 03/20/2019 15:08 [facility] pCO2, i-STAT 60(H) 35 - 45 mmHg 03/20/2019 15:08 [facility] pO2, i-STAT 74(L) 80 - 105 mmHg 03/20/2019 15:08 [facility] TCO2, i-STAT 30(H) 23 - 27 mEq/L 03/20/2019 15:08 [facility] O2 Saturation 92(L) 95 - 98 % 03/20/2019 15:08 [facility] Base Excess, i-STAT 1 03/20/2019 15:08 [facility] Sample Type ARTERIAL 03/20/2019 15:08 [facility] fish technologist ID [id number] 03/20/2019 15:08 [facility] Comment: Test Performed by Respiratory For non-arterial reference ranges, please see ISTAT procedure. BLOOD SPECIMEN / Unknown 03/20/2019 14:56 EDT 03/20/2019 15:08 EDT us Leticia Galdamez MD CHEMISTRY & BLOOD GAS ORDERAB LES Final Result [facility] [address] [place] [address] * (ABNORMAL) ELECTROLYTES (03/20/2019 14:42 EDT) Sodium 153(H) 136 - 145 mEq/L 03/20/2019 15:26 [facility] Potassium 4.8 3.5 - 5.0 mEq/L 03/20/2019 15:26 [facility] Chloride 119(H) 96 - 110 mEq/L 03/20/2019 15:26 T [facility] CO2 30 22 - 32 mEq/L 03/20/2019 15:26 EDT [facility] Blood specimen (specimen) BLOOD SPECIMEN / Unknown 03/20/2019 14:42 EDT 03/20/2019 14:59 EDT us Kori Nguyen MD CHEMISTRY & BLOOD GAS ORD ERABLES Final Result [facility] [address] [place] [address] * MAGNESIUM (03/20/2019 14:42 EDT) Magnesium 2.2 1.7 - 2.8 mg/dl 03/20/2019 15:26 EDT [facility] Blood specimen (specimen) BLOOD SPECIMEN / Unknown 03/20/2019 14:42 EDT 03/20/2019 14:59 EDT us Kori Nguyen MD CHEMISTRY & BLOOD GAS ORD ERABLES Final Result Performing Organization Address City/[facility]/ZIP Co de Phone Number [facility] [address] [place] [address] * PORTABLE CHEST 1 VIEW (03/20/2019 14:15 [...] 70 - 100 mg/dl 03/20/2019 11:46 EDT [facility] [employer] Supervisor ID [id number] 03/20/2019 11:46 EDT [facility] Comment:Test Performed by [facility] Services BLOOD SPECIMEN / Unknown 03/20/2019 11:42 EDT 03/20/2019 11:46 EDT us Leticia Galdamez MD CHEMISTRY & BLOOD GAS ORDERAB LES Final Result [facility] [address] [place] [address] * BACTERIAL CULTURE/SMEAR, RESPIRATORY (03/20/2019 11:30 EDT) Gram Smear Result Few Polys 03/20/2019 18:22 EDT [facility] Gram Smear Result Mod Squamous epithelial cells 03/20/2019 18:22 EDT [facility] Gram Smear Result Few Gram positive cocci 03/20/2019 18:22 T [facility] Gram Smear Result Smear suggests contamination with saliva. ??Please submit additional specimen if clinically indicated. 03/20/2019 18:22 EDT [facility] Result See gram smear results. 03/20/2019 18:22 EDT [facility] Result Credit Issued 03/20/2019 18:22 EDT [facility] Specimen of unknown material (specimen) SPUTUM / Unknown 03/20/2019 11:30 EDT 03/20/2019 14:57 EDT Comment:ETT Aspirate~Leuken' s specimen us Leticia Galdamez MD MICROBIOLOGY - GENERAL ORDERA BLES Final Result Performing Organization Address [facility] Co de Phone Number [facility] [address] [place] [address] * INPATIENT ADD-ON (03/20/2019 10:25 EDT) Tests to be added MAGNESIUM 03/20/2019 10:21 EDT [facility] Number for problems [id number] 03/20/2019 10:41 EDT [facility] Accession number [id number] 03/20/2019 10:41 EDT [facility] TOPOGRAPHY UNKNOWN / Unknown 03/20/2019 10:25 EDT 03/20/2019 10:40 EDT us Kori Nguyen MD HEMATOLOGY & PF4 ORDERABL ES Final Result Performing Organization Address [facility] de Phone Number [facility] [address] [place] [address] * (ABNORMAL) ELECTROLYTES (03/20/2019 10:06 EDT) Sodium 155(H) 136 - 145 mEq/L 03/20/2019 10:39 EDT [facility] Potassium 4.1 3.5 - 5.0 mEq/L 03/20/2019 11:04 EDT [facility] Chloride 120(H) 96 - 110 mEq/L 03/20/2019 10:39 EDT [facility] CO2 28 22 - 32 mEq/L 03/20/2019 10:39 EDT [facility] Blood specimen (specimen) BLOOD SPECIMEN / Unknown 03/20/2019 10:06 EDT 03/20/2019 10:14 EDT us Kori Nguyen MD CHEMISTRY & BLOOD GAS ORD ERABLES Final Result Performing Organization Address [facility] Co de Phone Number [facility] [address] [place] [address] * (ABNORMAL) GLUCOSE, GLUCOMETER (03/20/2019 6:39 EDT) Glucose, Fingerstick 247(H) 70 - 100 mg/dl 03/20/2019 6:40 EDT [facility] [employer] Supervisor ID [id number] 03/20/2019 6:40 EDT [facility] Comment:[facility] BLOOD SPECIMEN / Unknown 03/20/2019 6:39 EDT 03/20/2019 6:40 EDT us Leticia Galdamez MD CHEMISTRY & BLOOD GAS ORDERAB LES Final Result Performing Organization Address [facility] Co de Phone Number [facility] [address] [place] [address] * MAGNESIUM (03/20/2019 4:30 EDT) Magnesium 2.5 1.7 - 2.8 mg/dl 03/20/2019 11:52 EDT [facility] BLOOD SPECIMEN / Unknown 03/20/2019 4:30 EDT 03/20/2019 4:44 EDT us Kori Nguyen MD CHEMISTRY & BLOOD GAS ORD ERABLES Final Result Performing Organization Address [facility] Co de Phone Number [facility] [address] [place] [address] * (ABNORMAL) CALCIUM (03/20/2019 4:30 EDT) Calcium 7.0(L) 8.5 - 10.5 mg/dl 03/20/2019 5:17 EDT [facility] Calculated Calcium 8.4(L) 8.5 - 10.5 mg/dl 03/20/2019 5:17 EDT [facility] Blood specimen (specimen) BLOOD SPECIMEN / Unknown 03/20/2019 4:30 EDT 03/20/2019 4:44 EDT us Kori Nguyen MD CHEMISTRY & BLOOD GAS ORD ERABLES Final Result Performing Organization Address [facility]/ZIP Co de Phone Number [facility] [address] [place] [address] * PHOSPHORUS (03/20/2019 4:30 EDT) Phosphorus 4.0 2.5 - 4.5 mg/dl 03/20/2019 5:17 EDT [facility] Blood specimen (specimen) BLOOD SPECIMEN / Unknown 03/20/2019 4:30 EDT 03/20/2019 4:44 EDT us Kori Nguyen MD CHEMISTRY & BLOOD GAS ORD ERABLES Final Result Performing Organization Address [facility] de Phone Number [facility] [address] [place] [address] * (ABNORMAL) COMPLETE BLOOD COUNT AND DIFFERENTIAL (03/20/2019 4:30 EDT) WBC 9.30 4.0 - 10.4 K/cmm 03/20/2019 5:02 [facility] RBC 3.29(L) 4.36 - 5.78 M/cmm 03/20/2019 5:02 [facility] Hemoglobin 10.7(L) 13.8 - 17.3 gm/dl 03/20/2019 5:02 [facility] HCT 29.5(L) 39.5 - 50.2 % 03/20/2019 5:02 [facility] MCV 90 81 - 95 fl 03/20/2019 5:02 [facility] MCH 32.5 27.6 - 33.0 pg 03/20/2019 5:02 [facility] MCHC 36.3 32.8 - 36.4 gm/dl 03/20/2019 5:02 [facility] RDW-CV 14.9(H) <14.2 % 03/20/2019 5:02 [facility] RDW-SD 49.3(H) <46.0 fl 03/20/2019 5:02 [facility] PLT 64(L) 141 - 377 K/cmm 03/20/2019 5:02 [facility] MPV 12.7 9.5 - 12.7 fl 03/20/2019 5:02 [facility] Neutrophils 95.7 % 03/20/2019 7:40 [facility] Lymphocytes 2.6 % 03/20/2019 7:40 [facility] Monocytes 1.7 % 03/20/2019 7:40 [facility] ABS Neutrophils 8.90(H) 2.20 - 8.85 K/cm 03/20/2019 7:40 [facility] ABS Lymphs 0.24(L) 1.09 - 3.30 K/cmm 03/20/2019 7:40 [facility] ABS Monocytes 0.16 0.1 - 0.8 K/cmm 03/20/2019 7:40 [facility] Target Cells 2+ 03/20/2019 7:40 [facility] Toxic Granulation Present 03/20/2019 7:40 [facility] Large Platelets Present 9 7:40 [facility] Type of Diff: Manual 03/20/2019 7:40 [facility] Blood specimen (specimen) BLOOD SPECIMEN / Unknown 03/20/2019 4:30 EDT 03/20/2019 4:44 EDT us Leticia Galdamez MD PACKAGES & DNA PROBE ORDERABL ES Final Result [facility] [address] [place] [address] * (ABNORMAL) ELECTROLYTES (03/20/2019 4:30 EDT) Sodium 153(H) 136 - 145 mEq/L 03/20/2019 5:17 EDT [facility] Potassium 3.5 3.5 - 5.0 mEq/L 03/20/2019 5:17 EDT [facility] Chloride 118(H) 96 - 110 mEq/L 03/20/2019 5:17 T [facility] CO2 26 22 - 32 mEq/L 03/20/2019 5:17 EDT [facility] Blood specimen (specimen) BLOOD SPECIMEN / Unknown 03/20/2019 4:30 EDT 03/20/2019 4:44 EDT us Kori Nguyen MD CHEMISTRY & BLOOD GAS ORD ERABLES Final Result Performing Organization Address [facility] Co de Phone Number [facility] [address] [place] [address] * (ABNORMAL) CREATININE (03/20/2019 4:30 EDT) Creatinine 2.62(H) 0.66 - 1.25 mg/dl 03/20/2019 5:17 T [facility] GFR, Calculated 25(L) >60 ml/min/1.7 3m2 03/20/2019 5:17 T [facility] Comment: eGFR calculated using CKD-EPI equation for non Americans. Multiply eGFR by 1.16 for Americans. Blood specimen (specimen) BLOOD SPECIMEN / Unknown 03/20/2019 4:30 EDT 03/20/2019 4:44 EDT us Kori Nguyen MD CHEMISTRY & BLOOD GAS ORD ERABLES Final Result [facility] [address] [place] [address] * MRSA PCR (03/20/2019 4:25 EDT) Result Methicillin susceptible Staphylococcus aureus (MSSA) DNA detected by PCR. 03/20/2019 14:28 EDT [facility] Specimen of unknown material (specimen) NASAL ROUTE / Unknown 03/20/2019 4:25 EDT 03/20/2019 8:02 EDT us Kori Nguyen MD MICROBIOLOGY - GENERAL OR DERABLES Final Result Performing Organization Address City/[facility]/ZIP Co de Phone Number [facility] [address] [place] [address] * (ABNORMAL) GLUCOSE, GLUCOMETER (03/19/2019 23:38 EDT) Glucose, Fingerstick 234(H) 70 - 100 mg/dl 03/19/2019 23:39 EDT [facility] [employer] Supervisor ID [id number] 03/19/2019 23:39 EDT [facility] Comment:[facility] BLOOD SPECIMEN / Unknown 03/19/2019 23:38 EDT 03/19/2019 23:39 EDT us Leticia Galdamez MD CHEMISTRY & BLOOD GAS ORDERAB LES Final Result Performing Organization Address [facility] Co de Phone Number [facility] [address] [place] [address] * (ABNORMAL) ELECTROLYTES (03/19/2019 21:10 EDT) Sodium 152(H) 136 - 145 mEq/L 03/19/2019 21:57 EDT [facility] Potassium 3.1(L) 3.5 - 5.0 mEq/L 03/19/2019 21:57 EDT [facility] Chloride 115(H) 96 - 110 mEq/L 03/19/2019 21:57 EDT [facility] CO2 27 22 - 32 mEq/L 03/19/2019 21:57 EDT [facility] Blood specimen (specimen) BLOOD SPECIMEN / Unknown 03/19/2019 21:10 EDT 03/19/2019 21:21 EDT us Kori Nguyen MD CHEMISTRY & BLOOD GAS ORD ERABLES Final Result Performing Organization Address City/[facility]/ZIP Co de Phone Number [facility] [address] [place] [address] * (ABNORMAL) GLUCOSE, GLUCOMETER (03/19/2019 17:23 EDT) Glucose, Fingerstick 224(H) 70 - 100 mg/dl 03/19/2019 17:23 EDT [facility] [employer] Supervisor ID [id number] 03/19/2019 17:23 EDT [facility] Comment:Test Performed by [facility] Services BLOOD SPECIMEN / Unknown 03/19/2019 17:23 EDT 03/19/2019 17:24 EDT us Leticia Galdamez MD CHEMISTRY & BLOOD GAS ORDERAB LES Final Result Performing Organization Address City/[facility]/ZIP Co de Phone Number [facility] [address] [place] [address] * (ABNORMAL) CALCIUM (03/19/2019 14:24 EDT) Calcium 6.3(LL) 8.5 - 10.5 mg/dl 03/19/2019 15:26 EDT [facility] Calculated Calcium 7.7(L) 8.5 - 10.5 mg/dl 03/19/2019 15:26 EDT [facility] Blood specimen (specimen) BLOOD SPECIMEN / Unknown 03/19/2019 14:24 EDT 03/19/2019 14:28 EDT us Kori Nguyen MD CHEMISTRY & BLOOD GAS ORD ERABLES Final Result [facility] [address] [place] [address] * (ABNORMAL) PHOSPHORUS (03/19/2019 14:24 EDT) Phosphorus 7.4(H) 2.5 - 4.5 mg/dl 03/19/2019 15:26 EDT [facility] Blood specimen (specimen) BLOOD SPECIMEN / Unknown 03/19/2019 14:24 EDT 03/19/2019 14:28 EDT us Kroi Nguyen MD CHEMISTRY & BLOOD GAS ORD ERABLES Final Result [facility] [address] [place] [address] * MAGNESIUM (03/19/2019 14:24 EDT) Magnesium 2.5 1.7 - 2.8 mg/dl 03/19/2019 15:26 EDT [facility] Blood specimen (specimen) BLOOD SPECIMEN / Unknown 03/19/2019 14:24 EDT 03/19/2019 14:28 EDT us Kori Nguyen MD CHEMISTRY & BLOOD GAS ORD ERABLES Final Result Performing Organization Address [facility] Co de Phone Number [facility] [address] [place] [address] * (ABNORMAL) ELECTROLYTES (03/19/2019 14:24 EDT) Sodium 151(H) 136 - 145 mEq/L 03/19/2019 15:26 EDT [facility] Potassium 2.7(LL) 3.5 - 5.0 mEq/L 03/19/2019 15:26 EDT [facility] Chloride 111(H) 96 - 110 mEq/L 03/19/2019 15:26 EDT [facility] CO2 28 22 - 32 mEq/L 03/19/2019 15:26 EDT [facility] Blood specimen (specimen) BLOOD SPECIMEN / Unknown 03/19/2019 14:24 EDT 03/19/2019 14:28 EDT us Kori Nguyen MD CHEMISTRY & BLOOD GAS ORD ERABLES Final Result Performing Organization Address City/[facility]/ZIP Co de Phone Number [facility] [address] [place] [address] * (ABNORMAL) GLUCOSE, GLUCOMETER (03/19/2019 11:43 EDT) Glucose, Fingerstick 205(H) 70 - 100 mg/dl 03/19/2019 11:52 EDT [facility] [employer] Supervisor ID [id number] 03/19/2019 11:52 EDT [facility] Comment:Test Performed by [facility] Services BLOOD SPECIMEN / Unknown 03/19/2019 11:43 EDT 03/19/2019 11:52 EDT us Leticia Galdamez MD CHEMISTRY & BLOOD GAS ORDERAB LES Final Result [facility] [address] [place] [address] * (ABNORMAL) UA, CHEMICAL AND SEDIMENT ANALYSIS (DIPSTICK AND MICROSCOPIC) (03/19/2019 9:56 EDT) Color, UA Yellow 03/19/2019 10:53 EDT [facility] Clarity, UA Clear 03/19/2019 10:53 [facility] Glucose, UA Neg Neg 03/19/2019 10:53 [facility] Bilirubin, UA Neg Neg 03/19/2019 10:53 T [facility] Ketones, UA Neg Neg 03/19/2019 10:53 [facility] Refractometer SG,Urine 1.010 1.001 - 1.035 03/19/2019 10:53 T [facility] Blood, UA Neg Neg 03/19/2019 10:53 [facility] pH, UA 5.0 4.6 - 8.0 03/19/2019 10:53 [facility] Protein, UA Neg Neg 03/19/2019 10:53 T [facility] Urobilinogen, UA Normal Normal E.U./dl 03/19/2019 10:53 [facility] Nitrite, UA Neg Neg 03/19/2019 10:53 [facility] Leuk Esterase Neg Neg 03/19/2019 10:53 [facility] UA Method Used 03/19/2019 8:14 [facility] Comment: Testing performed using [employer]. Urine RBC Count Automated 3 to 10(A) 0 to 2 /HPF 03/19/2019 10:53 EDT [facility] Urine WBC Count Automated 0 to 3 0 to 3 /HPF 03/19/2019 10:53 EDT [facility] Urine Squamous Epithelial Cell Count, Automated None seen None seen /LPF 03/19/2019 10:53 EDT [facility] Urine Hyaline Casts, Automated < or = 10 < or = 10 /LPF 03/19/2019 10:53 EDT [facility] Urine Bacteria Count, Automated None seen None seen 03/19/2019 10:53 EDT [facility] UA Comment Sediment results 03/19/2019 10:53 EDT [facility] Comment: are unreliable on urines unrefrig >2hrs or refrig >8hrs. Urine specimen (specimen) URINE / Unknown 03/19/2019 9:56 EDT 03/19/2019 10:25 EDT us Kori Nguyen MD URINALYSIS ORDERABLES Fin al Result Performing Organization Address City/[facility]/ZIP Co de Phone Number [facility] [address] [place] [address] * BACTERIAL CULTURE, URINE (03/19/2019 9:56 EDT) Result No growth 03/20/2019 9:14 EDT [facility] Urine specimen (specimen) URINE / Unknown 03/19/2019 9:56 EDT 03/19/2019 10:25 EDT us Kori Nguyen MD MICROBIOLOGY - GENERAL OR DERABLES Final Result Performing Organization Address [facility]/ZIP Co de Phone Number [facility] [address] [place] [address] * INPATIENT ADD-ON (03/19/2019 9:45 EDT) Tests to be added MAGNESIUM 03/19/2019 9:42 EDT [facility] Number for problems [id number] 03/19/2019 9:57 EDT [facility] Accession number [id number] 03/19/2019 9:57 EDT [facility] TOPOGRAPHY UNKNOWN / Unknown 03/19/2019 9:45 EDT 03/19/2019 9:57 EDT us Domenica High MD HEMATOLOGY & PF4 ORDERABLES Fin al Result Performing Organization Address City/[facility] Co de Phone Number [facility] [address] [place] [address] * BACTERIAL CULTURE, BLOOD (03/19/2019 9:44 EDT) Result No growth 03/25/2019 7:29 EDT [facility] Blood specimen (specimen) BLOOD SPECIMEN / Unknown 03/19/2019 9:44 EDT 03/19/2019 10:03 EDT Comment:Left~Hand~AEROBIC BL OOD CULTURE BOTTLE~Total volume of blood collected:~8 ml~Volume of blood collected may not be adequate for detection of bacteremia/septicemia. us Kori Nguyen MD MICROBIOLOGY - GENERAL OR DERABLES Final Result Performing Organization Address [facility] Co de Phone Number [facility] [address] [place] [address] * BACTERIAL CULTURE, BLOOD (03/19/2019 9:44 EDT) Result No growth 03/25/2019 7:29 EDT [facility] Blood specimen (specimen) BLOOD SPECIMEN / Unknown 03/19/2019 9:44 EDT 03/19/2019 10:01 EDT Comment:Right~Hand~Total vol ume of blood collected:~20 ml us Kori Nguyen MD MICROBIOLOGY - GENERAL OR DERABLES Final Result Performing Organization Address City/[facility]/ZIP Co de Phone Number [facility] [address] [place] [address] * INPATIENT ADD-ON (03/19/2019 8:30 EDT) Tests to be added BUN 03/19/2019 8:28 EDT [facility] Number for problems [id number] 03/19/2019 8:56 EDT [facility] Accession number [id number] 03/19/2019 8:56 EDT [facility] TOPOGRAPHY UNKNOWN / Unknown 03/19/2019 8:30 EDT 03/19/2019 8:56 EDT us Kori Nguyen MD HEMATOLOGY & PF4 ORDERABL ES Final Result Performing Organization Address [facility]/ZIP Co de Phone Number [facility] [address] [place] [address] * (ABNORMAL) GLUCOSE, GLUCOMETER (03/19/2019 5:23 EDT) Glucose, Fingerstick 180(H) 70 - 100 mg/dl 03/19/2019 5:24 EDT [facility] [employer] Supervisor ID [id number] 03/19/2019 5:24 EDT [facility] Comment:Test Performed by [facility] BLOOD SPECIMEN / Unknown 03/19/2019 5:23 EDT 03/19/2019 5:24 EDT us Leticia Galdamez MD CHEMISTRY & BLOOD GAS ORDERAB LES Final Result Performing Organization Address [facility] Co de Phone Number [facility] [address] [place] [address] * MAGNESIUM (03/19/2019 3:21 EDT) Magnesium 2.5 1.7 - 2.8 mg/dl 03/19/2019 10:13 EDT [facility] Comment:Add on order BLOOD SPECIMEN / Unknown 03/19/2019 3:21 EDT 03/19/2019 4:00 EDT us Kori Nguyen MD CHEMISTRY & BLOOD GAS ORD ERABLES Final Result Performing Organization Address City/[facility]/ZIP Co de Phone Number [facility] [address] [place] [address] * (ABNORMAL) BUN (03/19/2019 3:21 EDT) BUN 153(H) 10 - 26 mg/dl 03/19/2019 10:13 [facility] Comment:Add on order BLOOD SPECIMEN / Unknown 03/19/2019 3:21 EDT 03/19/2019 4:00 EDT us Kori Nguyen MD CHEMISTRY & BLOOD GAS ORD ERABLES Final Result [facility] [address] [place] [address] * (ABNORMAL) COMPLETE BLOOD COUNT AND DIFFERENTIAL (03/19/2019 3:21 EDT) WBC 8.43 4.0 - 10.4 K/cmm 03/19/2019 4:14 [facility] RBC 3.19(L) 4.36 - 5.78 M/cmm 03/19/2019 4:14 [facility] Hemoglobin 10.2(L) 13.8 - 17.3 gm/dl 03/19/2019 4:14 [facility] HCT 28.5(L) 39.5 - 50.2 % 03/19/2019 4:14 [facility] MCV 89 81 - 95 fl 03/19/2019 4:14 [facility] MCH 32.0 27.6 - 33.0 pg 03/19/2019 4:14 [facility] MCHC 35.8 32.8 - 36.4 gm/dl 03/19/2019 4:14 [facility] RDW-CV 14.6(H) <14.2 % 03/19/2019 4:14 [facility] RDW-SD 47.6(H) <46.0 fl 03/19/2019 4:14 [facility] PLT 66(L) 141 - 377 K/cmm 03/19/2019 4:14 [facility] MPV 11.7 9.5 - 12.7 fl 03/19/2019 4:14 [facility] % Neutrophils 93.5 % 03/19/2019 4:14 [facility] % Lymphocytes 3.2 % 03/19/2019 4:14 [facility] % Monocytes 2.5 % 03/19/2019 4:14 [facility] % Eosinophils 0.0 % 03/19/2019 4:14 [facility] % Basophils 0.1 % 03/19/2019 4:14 [facility] % Immature Grans 0.7 % 03/19/2019 4:14 [facility] ABS Neutrophils 7.88 2.20 - 8.85 K/cmm 03/19/2019 4:14 [facility] ABS Lymphs 0.27(L) 1.09 - 3.30 K/cmm 03/19/2019 4:14 [facility] ABS Monocytes 0.21 0.1 - 0.8 K/cmm 03/19/2019 4:14 [facility] ABS Eosinophils 0.00(L) 0.03 - 0.61 K/cmm 03/19/2019 4:14 [facility] ABS Basophils 0.01 0.01 - 0.11 K/cmm 03/19/2019 4:14 [facility] ABS Immature Grans 0.06 0 - 0.06 K/cmm 03/19/2019 4:14 [facility] Type of Diff: Automated 03/19/2019 4:14 [facility] Blood specimen (specimen) BLOOD SPECIMEN / Unknown 03/19/2019 3:21 EDT 03/19/2019 4:00 EDT us Leticia Galdamez MD PACKAGES & DNA PROBE ORDERABL ES Final Result [facility] [address] [place] [address] * (ABNORMAL) ELECTROLYTES (03/19/2019 3:21 EDT) Sodium 148(H) 136 - 145 mEq/L 03/19/2019 4:39 EDT [facility] Potassium 3.1(L) 3.5 - 5.0 mEq/L 03/19/2019 4:39 EDT [facility] Chloride 109 96 - 110 mEq/L 03/19/2019 4:39 EDT [facility] CO2 26 22 - 32 mEq/L 03/19/2019 4:39 EDT [facility] Blood specimen (specimen) BLOOD SPECIMEN / Unknown 03/19/2019 3:21 EDT 03/19/2019 4:00 EDT us Kori Nguyen MD CHEMISTRY & BLOOD GAS ORD ERABLES Final Result Performing Organization Address [facility] Co de Phone Number [facility] [address] [place] [address] * (ABNORMAL) CREATININE (03/19/2019 3:21 EDT) Creatinine 3.49(H) 0.66 - 1.25 mg/dl 03/19/2019 4:39 EDT [facility] GFR, Calculated 17(L) >60 ml/min/1.7 3m2 03/19/2019 4:39 T [facility] Comment: eGFR calculated using CKD-EPI equation for non Americans. Multiply eGFR by 1.16 for Americans. Blood specimen (specimen) BLOOD SPECIMEN / Unknown 03/19/2019 3:21 EDT 03/19/2019 4:00 EDT us Kori Nguyen MD CHEMISTRY & BLOOD GAS ORD ERABLES Final Result Performing Organization Address City/[facility]/ZIP Co de Phone Number [facility] [address] [place] [address] * PROCALCITONIN, INFECTIOUS DISEASE USE ONLY (03/19/2019 3:21 EDT) Procalcitonin, Infectious Disease Use Only 4.74 ng/ml 03/19/2019 9:09 EDT [facility] Comment: Procalcitonin levels <0.5 ng/ml represent a low risk of severe sepsis and/or septic shock. Blood specimen (specimen) BLOOD SPECIMEN / Unknown 03/19/2019 3:21 EDT 03/19/2019 4:00 EDT us Kori Nguyen MD CHEMISTRY & BLOOD GAS ORD ERABLES Final Result Performing Organization Address [facility] Co de Phone Number [facility] [address] [place] [address] * (ABNORMAL) GLUCOSE, GLUCOMETER (03/19/2019 0:46 EDT) Glucose, Fingerstick 189(H) 70 - 100 mg/dl 03/19/2019 0:47 EDT [facility] [employer]visor ID [id number] 03/19/2019 0:47 EDT [facility] Comment:Test Performed by [employer] BLOOD SPECIMEN / Unknown 03/19/2019 0:46 EDT 03/19/2019 0:47 EDT us Leticia Galdamez MD CHEMISTRY & BLOOD GAS ORDERAB LES Final Result Performing Organization Address [facility] Co de Phone Number [facility] [address] [place] [address] * (ABNORMAL) GLUCOSE, GLUCOMETER (03/18/2019 17:54 EDT) Glucose, Fingerstick 199(H) 70 - 100 mg/dl 03/18/2019 17:58 EDT [facility] [employer] Super[employer] ID [id number] 03/18/2019 17:58 EDT [facility] Comment:Test Performed by [employer] BLOOD SPECIMEN / Unknown 03/18/2019 17:54 EDT 03/18/2019 17:58 EDT us Leticia Galdamez MD CHEMISTRY & BLOOD GAS ORDERAB LES Final Result Performing Organization Address [facility] Co de Phone Number [facility] [address] [place] [address] * (ABNORMAL) GLUCOSE, GLUCOMETER (03/18/2019 11:46 EDT) Glucose, Fingerstick 216(H) 70 - 100 mg/dl 03/18/2019 11:50 EDT [facility] [employer] Supervisor ID [id number] 03/18/2019 11:50 EDT [facility] Comment:Test Performed by [employer] BLOOD SPECIMEN / Unknown 03/18/2019 11:46 EDT 03/18/2019 11:50 EDT Leticia Galdamez MD CHEMISTRY & BLOOD GAS ORDERAB LES Final Result Performing Organization Address City/[facility]/ZIP Co de Phone Number [facility] [address] [place] [address] * INPATIENT ADD-ON (03/18/2019 9:35 EDT) Tests to be added MAGNESIUM 03/18/2019 9:33 EDT [facility] Number for problems [id number] 03/18/2019 9:46 EDT [facility] Accession number [id number] 03/18/2019 9:46 EDT [facility] TOPOGRAPHY UNKNOWN / Unknown 03/18/2019 9:35 EDT 03/18/2019 9:46 EDT Leticia Galdamez MD HEMATOLOGY & PF4 ORDERABLES F inal Result Performing Organization Address City/[facility]/ZIP Co de Phone Number [facility] [address] [place] [address] * INPATIENT ADD-ON (03/18/2019 7:40 EDT) Tests to be added PHOSPHOROUS 03/18/2019 7:36 EDT [facility] Number for problems [id number] 03/18/2019 7:39 EDT [facility] Accession number [id number] 03/18/2019 7:39 EDT [facility] TOPOGRAPHY UNKNOWN / Unknown 03/18/2019 7:40 EDT 03/18/2019 7:41 EDT Leticia Galdamez MD HEMATOLOGY & PF4 ORDERABLES F inal Result Performing Organization Address City/[facility]/ZIP Co de Phone Number [facility] [address] [place] [address] * (ABNORMAL) GLUCOSE, GLUCOMETER (03/18/2019 5:58 EDT) Glucose, Fingerstick 173(H) 70 - 100 mg/dl 03/18/2019 6:03 EDT [facility] [employer] Supervisor ID [id number] 03/18/2019 6:03 EDT [facility] Comment:Test Performed by [facility] Services BLOOD SPECIMEN / Unknown 03/18/2019 5:58 EDT 03/18/2019 6:03 EDT us Leticia Galdamez MD CHEMISTRY & BLOOD GAS ORDERAB LES Final Result Performing Organization Address [facility] Co de Phone Number [facility] [address] [place] [address] * MAGNESIUM (03/18/2019 2:54 EDT) Magnesium 2.6 1.7 - 2.8 mg/dl 03/18/2019 10:15 EDT [facility] BLOOD SPECIMEN / Unknown 03/18/2019 2:54 EDT 03/18/2019 2:57 EDT us Kori Nguyen MD CHEMISTRY & BLOOD GAS ORD ERABLES Final Result Performing Organization Address City/[facility]/ZIP Co de Phone Number [facility] [address] [place] [address] * (ABNORMAL) PHOSPHORUS (03/18/2019 2:54 EDT) Phosphorus 10.5(H) 2.5 - 4.5 mg/dl 03/18/2019 8:10 EDT [facility] BLOOD SPECIMEN / Unknown 03/18/2019 2:54 EDT 03/18/2019 2:57 EDT us Kori Nguyen MD CHEMISTRY & BLOOD GAS ORD ERABLES Final Result Performing Organization Address City/[facility]/ZIP Co de Phone Number [facility] [address] [place] [address] * SMEAR REVIEW (03/18/2019 2:54 EDT) Smear scan only: Slide was examined by a technologist to verify the WBC and/or platelet count. 03/18/2019 3:48 EDT [facility] BLOOD SPECIMEN / Unknown 03/18/2019 2:54 EDT 03/18/2019 2:57 EDT us Kori Nguyen MD HEMATOLOGY & PF4 ORDERABL ES Final Result Performing Organization Address [facility] Co de Phone Number [facility] [address] [place] [address] * (ABNORMAL) COMPLETE BLOOD COUNT AND DIFFERENTIAL (03/18/2019 2:54 EDT) WBC 12.27(H) 4.0 - 10.4 K/cmm 03/18/2019 3:47 [facility] RBC 3.67(L) 4.36 - 5.78 M/cmm 03/18/2019 3:47 [facility] Hemoglobin 11.9(L) 13.8 - 17.3 gm/dl 03/18/2019 3:47 [facility] HCT 33.0(L) 39.5 - 50.2 % 03/18/2019 3:47 [facility] MCV 90 81 - 95 fl 03/18/2019 3:47 [facility] MCH 32.4 27.6 - 33.0 pg 03/18/2019 3:47 [facility] MCHC 36.1 32.8 - 36.4 gm/dl 03/18/2019 3:47 [facility] RDW-CV 14.5(H) <14.2 % 03/18/2019 3:47 [facility] RDW-SD 47.9(H) <46.0 fl 03/18/2019 3:47 [facility] PLT 73(L) 141 - 377 K/cmm 03/18/2019 3:47 [facility] MPV 12.7 9.5 - 12.7 fl 03/18/2019 3:47 [facility] % Neutrophils 93.2 % 03/18/2019 3:47 [facility] % Lymphocytes 2.9 % 03/18/2019 3:47 [facility] % Monocytes 2.6 % 03/18/2019 3:47 [facility] % Eosinophils 0.0 % 03/18/2019 3:47 [facility] % Basophils 0.2 % 03/18/2019 3:47 [facility] % Immature Grans 1.1 % 03/18/2019 3:47 [facility] ABS Neutrophils 11.44(H) 2.20 - 8.85 K/cmm 03/18/2019 3:47 [facility] ABS Lymphs 0.35(L) 1.09 - 3.30 K/cmm 03/18/2019 3:47 [facility] ABS Monocytes 0.32 0.1 - 0.8 K/cmm 03/18/2019 3:47 [facility] ABS Eosinophils 0.00(L) 0.03 - 0.61 K/cmm 03/18/2019 3:47 [facility] ABS Basophils 0.03 0.01 - 0.11 K/cmm 03/18/2019 3:47 [facility] ABS Immature Grans 0.13(H) 0 - 0.06 K/cmm 03/18/2019 3:47 [facility] Type of Diff: Automated 03/18/2019 3:47 [facility] Blood specimen (specimen) BLOOD SPECIMEN / Unknown 03/18/2019 2:54 EDT 03/18/2019 2:57 EDT us Leticia Galdamez MD PACKAGES & DNA PROBE ORDERABL ES Final Result [facility] [address] [place] [address] * (ABNORMAL) ELECTROLYTES (03/18/2019 2:54 EDT) Sodium 140 136 - 145 mEq/L 03/18/2019 3:31 EDT [facility] Potassium 3.8 3.5 - 5.0 mEq/L 03/18/2019 3:31 EDT [facility] Chloride 106 96 - 110 mEq/L 03/18/2019 3:31 EDT [facility] CO2 20(L) 22 - 32 mEq/L 03/18/2019 3:31 EDT [facility] Blood specimen (specimen) BLOOD SPECIMEN / Unknown 03/18/2019 2:54 EDT 03/18/2019 2:57 EDT us Kori Nguyen MD CHEMISTRY & BLOOD GAS ORD ERABLES Final Result Performing Organization Address [facility] Co de Phone Number [facility] [address] [place] [address] * (ABNORMAL) CREATININE (03/18/2019 2:54 EDT) Creatinine 3.18(H) 0.66 - 1.25 mg/dl 03/18/2019 3:31 EDT [facility] GFR, Calculated 19(L) >60 ml/min/1.7 3m2 03/18/2019 3:31 EDT [facility] Comment: eGFR calculated using CKD-EPI equation for non Americans. Multiply eGFR by 1.16 for Americans. Blood specimen (specimen) BLOOD SPECIMEN / Unknown 03/18/2019 2:54 EDT 03/18/2019 2:57 EDT us Kori Nguyen MD CHEMISTRY & BLOOD GAS ORD ERABLES Final Result Performing Organization Address City/[facility]/ZIP Co de Phone Number [facility] [address] [place] [address] * (ABNORMAL) FERRITIN (03/18/2019 2:54 EDT) Pathologist [facility] Ferritin 2,643(H) 22 - 322 ng/ml 03/19/2019 14:30 EDT [facility] Blood specimen (specimen) BLOOD SPECIMEN / Unknown 03/18/2019 2:54 EDT 03/18/2019 2:57 EDT us Leticia Galdamez MD CHEMISTRY & BLOOD GAS ORDERAB LES Final Result Performing Organization Address [facility] Co de Phone Number [facility] [address] [place] [address] * PROCALCITONIN, INFECTIOUS DISEASE USE ONLY (03/18/2019 2:54 EDT) [facility] Procalcitonin, Infectious Disease Use Only 7.59 ng/ml 03/18/2019 8:25 EDT [facility] Comment: Procalcitonin levels <0.5 ng/ml represent a low risk of severe sepsis and/or septic shock. Blood specimen (specimen) BLOOD SPECIMEN / Unknown 03/18/2019 2:54 EDT 03/18/2019 2:57 EDT us Kori Nguyen MD CHEMISTRY & BLOOD GAS ORD ERABLES Final Result Performing Organization Address [facility] Co de Phone Number [facility] [address] [place] [address] * (ABNORMAL) BLOOD GAS, G3 ISTAT (03/18/2019 2:52 EDT) Pathologist [facility] pH, i-STAT 7.27(L) 7.35 - 7.45 03/18/2019 2:57 EDT [facility] pCO2, i-STAT 46(H) 35 - 45 mmHg 03/18/2019 2:57 EDT [facility] pO2, i-STAT 103 80 - 105 mmHg 03/18/2019 2:57 EDT [facility] TCO2, i-STAT 22(L) 23 - 27 mEq/L 03/18/2019 2:57 EDT [facility] O2 Saturation 97 95 - 98 % 03/18/2019 2:57 EDT [facility] Base Deficit, i-STAT 6 03/18/2019 2:57 EDT [facility] Sample Type ARTERIAL 03/18/2019 2:57 EDT [facility] fish technologist ID [id number] 03/18/2019 2:57 EDT [facility] Comment: Test Performed by Respiratory For non-arterial reference ranges, please see ISTAT procedure. BLOOD SPECIMEN / Unknown 03/18/2019 2:52 EDT 03/18/2019 2:57 EDT us Leticia Galdamez MD CHEMISTRY & BLOOD GAS ORDERAB LES Final Result Performing Organization Address [facility]/ZIP Co de Phone Number [facility] [address] [place] [address] * BACTERIAL CULTURE/SMEAR, RESPIRATORY (03/18/2019 2:43 EDT) Gram Smear Result Few Polys 03/18/2019 9:55 EDT [facility] Gram Smear Result No bacteria seen 03/18/2019 9:55 EDT [facility] Gram Smear Result Smear suggests minimal or no inflammation . 03/18/2019 9:55 EDT [facility] Result Mod Usual joseph-pharynge al constance 03/19/2019 8:33 EDT [facility] Specimen of unknown material (specimen) SPUTUM / Unknown 03/18/2019 2:43 EDT 03/18/2019 7:19 EDT Comment:Tracheal Aspirate us Leticia Galdamez MD MICROBIOLOGY - GENERAL ORDERA BLES Final Result [facility] [address] [place] [address] * (ABNORMAL) GLUCOSE, GLUCOMETER (03/17/2019 23:21 EDT) Glucose, Fingerstick 193(H) 70 - 100 mg/dl 03/17/2019 23:26 EDT [facility] [employer] Supervisor ID [id number] 03/17/2019 23:26 EDT [facility] Comment:Test Performed by [facility] [employer] BLOOD SPECIMEN / Unknown 03/17/2019 23:21 EDT 03/17/2019 23:26 EDT us Leticia Galdamez MD CHEMISTRY & BLOOD GAS ORDERAB LES Final Result Performing Organization Address [facility] de Phone Number [facility] [address] [place] [address] * (ABNORMAL) ELECTROLYTES (03/17/2019 21:46 EDT) Sodium 139 136 - 145 mEq/L 03/17/2019 22:22 EDT [facility] Potassium 4.0 3.5 - 5.0 mEq/L 03/17/2019 22:22 EDT [facility] Chloride 106 96 - 110 mEq/L 03/17/2019 22:22 EDT [facility] CO2 20(L) 22 - 32 mEq/L 03/17/2019 22:22 EDT [facility] Blood specimen (specimen) BLOOD SPECIMEN / Unknown 03/17/2019 21:46 EDT 03/17/2019 21:50 EDT us Kori Nguyen MD CHEMISTRY & BLOOD GAS ORD ERABLES Final Result Performing Organization Address [facility] de Phone Number [facility] [address] [place] [address] * (ABNORMAL) PROTIME (03/17/2019 21:46 EDT) Pro Time 16.5(H) 10.3 - 13.4 secs 03/17/2019 22:30 EDT [facility] I.N.R. 1.4(H) 0.9 - 1.1 Ratio 03/17/2019 22:30 T [facility] Comment: Moderate Intensity Coumadin INR = 2.0-3.0 Adjustments in anticoagulant therapy dose should be based upon the INR and NOT the Pro Time. Blood specimen (specimen) BLOOD SPECIMEN / Unknown 03/17/2019 21:46 EDT 03/17/2019 21:50 EDT us Kori Nguyen MD HEMATOLOGY & PF4 ORDERABL ES Final Result Performing Organization Address [facility] Co de Phone Number [facility] [address] [place] [address] * (ABNORMAL) BLOOD GAS, G3 ISTAT (03/17/2019 21:44 EDT) pH, i-STAT 7.25(L) 7.35 - 7.45 03/17/2019 21:55 EDT [facility] pCO2, i-STAT 46(H) 35 - 45 mmHg 03/17/2019 21:55 EDT [facility] pO2, i-STAT 76(L) 80 - 105 mmHg 03/17/2019 21:55 EDT [facility] TCO2, i-STAT 21(L) 23 - 27 mEq/L 03/17/2019 21:55 EDT [facility] O2 Saturation 92(L) 95 - 98 % 03/17/2019 21:55 EDT [facility] Base Deficit, i-STAT 7 03/17/2019 21:55 T [facility] Sample Type ARTERIAL 03/17/2019 21:55 T [facility] fish technologist ID [id number] 03/17/2019 21:55 T [facility] Comment: Test Performed by Respiratory For non-arterial reference ranges, please see ISTAT procedure. BLOOD SPECIMEN / Unknown 03/17/2019 21:44 EDT 03/17/2019 21:55 EDT us Leticia Galdamez MD CHEMISTRY & BLOOD GAS ORDERAB LES Final Result Performing Organization Address [facility]/ZIP Co de Phone Number [facility] [address] [place] [address] * (ABNORMAL) GLUCOSE, GLUCOMETER (03/17/2019 18:04 EDT) Glucose, Fingerstick 216(H) 70 - 100 mg/dl 03/17/2019 18[facility] [employer] Supervisor [place] [id number] 03/17/2019 18:08 EDT [facility] Comment:Test Performed by Nu [facility] Services BLOOD SPECIMEN / Unknown 03/17/2019 18:04 EDT 03/17/2019 18:08 EDT us Leticia Galdamez MD CHEMISTRY & BLOOD GAS ORDERAB LES Final Result Performing Organization Address [facility]/ZIP Co de Phone Number [facility] [address] [place] [address] * (ABNORMAL) BLOOD GAS, G3 ISTAT (03/17/2019 16:09 EDT) pH, i-STAT 7.16(L) 7.35 - 7.45 03/17/2019 16:13 [facility] pCO2, i-STAT 49(H) 35 - 45 mmHg 03/17/2019 16:13 [facility] pO2, i-STAT 87 80 - 105 mmHg 03/17/2019 16:13 [facility] TCO2, i-STAT 19(L) 23 - 27 mEq/L 03/17/2019 16:13 [facility] O2 Saturation 93(L) 95 - 98 % 03/17/2019 16:13 [facility] Base Deficit, i-STAT 11 03/17/2019 16:13 [facility] Sample Type ARTERIAL 03/17/2019 16:13 [facility] fish technologist ID [id number] 03/17/2019 16:13 [facility] Comment: Test Performed by Respiratory For non-arterial reference ranges, please see ISTAT procedure. BLOOD SPECIMEN / Unknown 03/17/2019 16:09 EDT 03/17/2019 16:13 EDT us Leticia Galdamez MD CHEMISTRY & BLOOD GAS ORDERAB LES Final Result Performing Organization Address [facility]/ZIP Co de Phone Number [facility] [address] [place] [address] * (ABNORMAL) PHOSPHORUS (03/17/2019 15:37 EDT) Phosphorus 11.5(H) 2.5 - 4.5 mg/dl 03/17/2019 16:12 EDT [facility] Blood specimen (specimen) BLOOD SPECIMEN / Unknown 03/17/2019 15:37 EDT 03/17/2019 15:48 EDT Leticia Galdamez MD CHEMISTRY & BLOOD GAS ORDERAB LES Final Result Performing Organization Address [facility] Co de Phone Number [facility] [address] [place] [address] * (ABNORMAL) CALCIUM, IONIZED (03/17/2019 15:37 EDT) Calcium, Ionized 0.92(L) 1.12 - 1.32 mmol/L 03/17/2019 16:03 EDT [facility] Blood specimen (specimen) BLOOD SPECIMEN / Unknown 03/17/2019 15:37 EDT 03/17/2019 15:48 EDT Leticia Galdamez MD CHEMISTRY & BLOOD GAS ORDERAB LES Final Result Performing Organization Address [facility] Co de Phone Number [facility] [address] [place] [address] * (ABNORMAL) ELECTROLYTES (03/17/2019 15:37 EDT) Sodium 138 136 - 145 mEq/L 03/17/2019 16:12 EDT [facility] Potassium 4.2 3.5 - 5.0 mEq/L 03/17/2019 16:12 EDT [facility] Chloride 105 96 - 110 mEq/L 03/17/2019 16:12 EDT [facility] CO2 19(L) 22 - 32 mEq/L 03/17/2019 16:12 EDT [facility] Blood specimen (specimen) BLOOD SPECIMEN / Unknown 03/17/2019 15:37 EDT 03/17/2019 15:48 EDT Leticia Galdamez MD CHEMISTRY & BLOOD GAS ORDERAB LES Final Result Performing Organization Address [facility] Co de Phone Number [facility] [address] [place] [address] * (ABNORMAL) CALCIUM, IONIZED (03/17/2019 12:59 EDT) Calcium, Ionized 0.56(LL) 1.12 - 1.32 mmol/L 03/17/2019 13:24 EDT [facility] Comment:Sample retested, res ult confirmed Blood specimen (specimen) BLOOD SPECIMEN / Unknown 03/17/2019 12:59 EDT 03/17/2019 13:12 EDT us Kori Nguyen MD CHEMISTRY & BLOOD GAS ORD ERABLES Final Result Performing Organization Address [facility] Co de Phone Number [facility] [address] [place] [address] * INPATIENT ADD-ON (03/17/2019 12:46 EDT) Tests to be added HEMOGLOBIN A1C 03/17/2019 12:45 EDT [facility] Number for problems [id number] 03/17/2019 12:49 EDT [facility] Accession number [id number] 03/17/2019 12:49 EDT [facility] TOPOGRAPHY UNKNOWN / Unknown 03/17/2019 12:46 EDT 03/17/2019 12:48 EDT us Kori Nguyen MD HEMATOLOGY & PF4 ORDERABL ES Final Result Performing Organization Address [facility]/ZIP Co de Phone Number [facility] [address] [place] [address] * EKG 12-LEAD (03/17/2019 12:23 EDT) 03/17/2019 12:2 3 EDT Narrative [facility] - 03/21/2019 7:15 EDT ? [facility] ? Test Date: ?2019-03-17 Pat Name: ? SHIRLENE BRYAN ?Department: ?? Le[facility] 4 ? Room: ? M405 Gender: ? Male ? Deck Mate: ?? [id number] : ?1955 ? Requested By: GODWIN Bunn Order Number: [id number] ? Reading MD: ?? EUFEMIA WILSON MD ? Measurements Intervals ?[place] ? Rate: ? 123 ?P: ? CT: ? 0 ?QRS: ?90 QRSD: ? 101 ?T: ?60 QT: ? 310 ? QTc: ?445 ? Interpretive Statements ATRIAL FIBRILLATION WITH RAPID VENTRICULAR RESPONSE No previous ECG available for comparison I reviewed the tracing and have either agreed or edited the findings in this report. Electronically Signed On 03-21-2019 7:15:07 EDT by EUFEMIA WILSON MD. Procedure Note Eufemia Wilson MD, - 03/21/2019 [facility] Test Date: 2019-03-17 Pat Name: SHIRLENE BRYAN Department: [place] [address] Room: [facility] Gender: Male Deck Mate: [id number] : 1955 Requested By: GODWIN Bunn Order Number: [id number] Reading MD: EUFEMIA WILSON MD Measurements Intervals [place] Rate: 123 P: CT: 0 QRS: 90 QRSD: 101 T: 60 QT: 310 QTc: 445 Interpretive Statements ATRIAL FIBRILLATION WITH RAPID VENTRICULAR RESPONSE No previous ECG available for comparison I reviewed the tracing and have either agreed or edited the findings inthis report. Electronically Signed On 03-21-2019 7:15:07 EDT by EUFEMIA WHARTON. us Kori Nguyen MD CARDIAC ECG ORDERABLES nal Result [facility] EKG * (ABNORMAL) GLUCOSE, GLUCOMETER (03/17/2019 12:05 EDT) Glucose, Fingerstick 205(H) 70 - 100 mg/dl 03/17/2019 12:10 EDT [facility] [employer] Supervisor ID [id number] 03/17/2019 12:10 EDT [facility] Comment:Test Performed by [facility] Services BLOOD SPECIMEN / Unknown 03/17/2019 12:05 EDT 03/17/2019 12:10 EDT us Leticia Galdamez MD CHEMISTRY & BLOOD GAS ORDERAB LES Final Result [facility] [address] [place] [address] * PORTABLE CHEST 1 VIEW (03/17/2019 12:05 [...] 7.19(L) 7.35 - 7.45 03/17/2019 12:06 EDT [facility] pCO2, i-STAT 46(H) 35 - 45 mmHg 03/17/2019 12:06 [facility] pO2, i-STAT 74(L) 80 - 105 mmHg 03/17/2019 12:06 [facility] TCO2, i-STAT 19(L) 23 - 27 mEq/L 03/17/2019 12:06 [facility] O2 Saturation 90(L) 95 - 98 % 03/17/2019 12:06 [facility] Base Deficit, i-STAT 11 03/17/2019 12:06 [facility] Sample Type ARTERIAL 03/17/2019 12:06 [facility] fish technologist ID [id number] 03/17/2019 12:06 [facility] Comment: Test Performed by Respiratory For non-arterial reference ranges, please see ISTAT procedure. BLOOD SPECIMEN / Unknown 03/17/2019 12:00 EDT 03/17/2019 12:06 EDT us Leticia Galdamez MD CHEMISTRY & BLOOD GAS ORDERAB LES Final Result [facility] [address] [place] [address] * INPATIENT ADD-ON (03/17/2019 11:01 EDT) Tests to be added PTT,PROTIM E 03/17/2019 11:00 EDT [facility] Number for problems [id number] 03/17/2019 11:03 EDT [facility] Accession number [id number] 03/17/2019 11:03 EDT [facility] TOPOGRAPHY UNKNOWN / Unknown 03/17/2019 11:01 EDT 03/17/2019 11:03 EDT us Brian Saldana MD HEMATOLOGY & PF4 ORDERABLES Juliana l Result [facility] [address] [place] [address] * STREPTOCOCCUS PNEUMONIAE ANTIGEN, URINE (03/17/2019 10:10 EDT) Result No Strep pneumoniae antigen detected. 03/17/2019 12:51 EDT [facility] Specimen of unknown material (specimen) URINE / Unknown 03/17/2019 10:10 EDT 03/17/2019 12:21 EDT Leticia Galdamez MD MICROBIOLOGY - GENERAL ORDERA BLES Final Result [facility] [address] [place] [address] * LEGIONELLA ANTIGEN DETECTION, URINE (03/17/2019 10:10 EDT) Result No Legionella pneumophila serogroup 1 antigen detected. 03/17/2019 12:52 EDT [facility] Specimen of unknown material (specimen) URINE / Unknown 03/17/2019 10:10 EDT 03/17/2019 12:20 EDT Leticia Galdamez MD MICROBIOLOGY - GENERAL ORDERA BLES Final Result [facility] [address] [place] [address] * (ABNORMAL) GLUCOSE, GLUCOMETER (03/17/2019 9:19 EDT) Glucose, Fingerstick 133(H) 70 - 100 mg/dl 03/17/2019 9:20 EDT [facility] [employer] Supervisor ID [id number] 03/17/2019 9:20 EDT [facility] Comment:[facility] BLOOD SPECIMEN / Unknown 03/17/2019 9:19 EDT 03/17/2019 9:20 EDT us Leticia Galdamez MD CHEMISTRY & BLOOD GAS ORDERAB LES Final Result Performing Organization Address City/[facility]/ZIP Co de Phone Number [facility] [address] [place] [address] * HEMOGLOBIN A1C (03/17/2019 9:18 EDT) Hemoglobin A1C 6.0 % 03/19/2019 8:58 EDT [facility] Comment: Reference Range: <5.7% Normal 5.7-6.4% Prediabetes =>6.5% Diagnostic for diabetes (if confirmed) Goals for glycemic control in diabetes ADA 2017 For non adults with diabetes: ?? Target <7.0% For children and adolescents with type 1 diabetes: ?? Target <7.5% More or less stringent targets may be appropriate for individual patients. Est Avg Glucose 126 mg/dl 9 8:58 EDT [facility] Comment: eAG represents the A1c result expressed as average glucose in mg/dl. BLOOD SPECIMEN / Unknown 03/17/2019 9:18 EDT 03/17/2019 9:25 EDT us Kori Nguyen MD CHEMISTRY & BLOOD GAS ORD ERABLES Final Result Performing Organization Address City/[facility]/ZIP Co de Phone Number [facility] [address] [place] [address] * PTT (03/17/2019 9:18 EDT) PTT 31 26 - 37 secs 03/17/2019 11:22 EDT [facility] BLOOD SPECIMEN / Unknown 03/17/2019 9:18 EDT 03/17/2019 9:25 EDT us Kori Nguyen MD HEMATOLOGY & PF4 ORDERABL ES Final Result Performing Organization Address [facility] de Phone Number [facility] [address] [place] [address] * (ABNORMAL) PROTIME (03/17/2019 9:18 EDT) Pro Time 15.2(H) 10.3 - 13.4 secs 03/17/2019 11:16 EDT [facility] I.N.R. 1.3(H) 0.9 - 1.1 Ratio 03/17/2019 11:16 EDT [facility] Comment: Moderate Intensity Coumadin INR = 2.0-3.0 Adjustments in anticoagulant therapy dose should be based upon the INR and NOT the Pro Time. BLOOD SPECIMEN / Unknown 03/17/2019 9:18 EDT 03/17/2019 9:25 EDT us Kori Nguyen MD HEMATOLOGY & PF4 ORDERABL ES Final Result Performing Organization Address [facility] de Phone Number [facility] [address] [place] [address] * HOLD BLUE TOP (03/17/2019 9:18 EDT) Hold Blue Top Sample for coagulation will be discarded after 4 hours 03/17/2019 9:36 EDT [facility] BLOOD SPECIMEN / Unknown 03/17/2019 9:18 EDT 03/17/2019 9:25 EDT us Kori Nguyen MD LAB INFO SERVICE AND SUPP ORT & PHONE RESULT Final Result Performing Organization Address [facility] Co de Phone Number [facility] [address] [place] [address] * (ABNORMAL) COMPLETE BLOOD COUNT AND DIFFERENTIAL (03/17/2019 9:18 EDT) WBC 26.92(H) 4.0 - 10.4 K/cmm 03/17/2019 10:11 [facility] RBC 4.35(L) 4.36 - 5.78 M/cmm 03/17/2019 9:35 [facility] Hemoglobin 14.2 13.8 - 17.3 gm/dl 03/17/2019 9:35 [facility] HCT 40.1 39.5 - 50.2 % 03/17/2019 9:35 [facility] MCV 92 81 - 95 fl 03/17/2019 9:35 [facility] MCH 32.6 27.6 - 33.0 pg 03/17/2019 9:35 [facility] MCHC 35.4 32.8 - 36.4 gm/dl 03/17/2019 9:35 [facility] RDW-CV 14.7(H) <14.2 % 03/17/2019 9:35 [facility] RDW-SD 50.3(H) <46.0 fl 03/17/2019 9:35 [facility] PLT Unreportable due to presence of platelet clumps 141 - 377 K/cmm 03/17/2019 10:11 [facility] MPV Unreportable due to presence of platelet clumps 9.5 - 12.7 fl 03/17/2019 10:11 [facility] Neutrophils 99.0 % 03/17/2019 10:13 [facility] Monocytes 1.0 % 03/17/2019 10:13 [facility] ABS Neutrophils 26.65(H) 2.20 - 8.85 K/cmm 03/17/2019 10:13 [facility] ABS Monocytes 0.27 0.1 - 0.8 K/cmm 03/17/2019 10:13 [facility] Jj Cells 2+ 03/17/2019 10:13 [facility] Toxic Granulation Present 03/17/2019 10:13 [facility] Vacuolization Present 03/17/2019 10:13 EDT [facility] Type of Diff: Manual 03/17/2019 10:13 EDT [facility] Blood specimen (specimen) BLOOD SPECIMEN / Unknown 03/17/2019 9:18 EDT 03/17/2019 9:25 EDT us Kori Nguyen MD PACKAGES & DNA PROBE ORDE CARMENLES Final Result Performing Organization Address City/[facility]/ZIP Co de Phone Number [facility] [address] [place] [address] * (ABNORMAL) PROTEIN, TOTAL (03/17/2019 9:18 EDT) Total Protein 4.7(L) 6.3 - 8.2 g/dl 03/17/2019 9:46 EDT [facility] Blood specimen (specimen) BLOOD SPECIMEN / Unknown 03/17/2019 9:18 EDT 03/17/2019 9:25 EDT us Kori Nguyen MD CHEMISTRY & BLOOD GAS ORD ERABLES Final Result Performing Organization Address [facility] Co de Phone Number [facility] [address] [place] [address] * BILIRUBIN, TOTAL (03/17/2019 9:18 EDT) Bilirubin, Total 1.1 <1.4 mg/dl 03/17/2019 9:46 EDT [facility] Blood specimen (specimen) BLOOD SPECIMEN / Unknown 03/17/2019 9:18 EDT 03/17/2019 9:25 EDT us Kori Nguyen MD CHEMISTRY & BLOOD GAS ORD ERABLES Final Result Performing Organization Address [facility] Co de Phone Number [facility] [address] [place] [address] * LACTIC ACID (03/17/2019 9:18 EDT) Lactic Acid 1.6 <2.1 mmol/L 03/17/2019 9:44 EDT [facility] Comment:Slight hemolysis Blood specimen (specimen) BLOOD SPECIMEN / Unknown 03/17/2019 9:18 EDT 03/17/2019 9:25 EDT us Kori Nguyen MD CHEMISTRY & BLOOD GAS ORD ERABLES Final Result Performing Organization Address City/[facility]/ZIP Co de Phone Number [facility] [address] [place] [address] * (ABNORMAL) AST (03/17/2019 9:18 EDT) AST 146(H) 15 - 46 U/L 03/17/2019 9:46 EDT [facility] Blood specimen (specimen) BLOOD SPECIMEN / Unknown 03/17/2019 9:18 EDT 03/17/2019 9:25 EDT us Kori Nguyen MD CHEMISTRY & BLOOD GAS ORD ERABLES Final Result Performing Organization Address [facility]/ZIP Co de Phone Number [facility] [address] [place] [address] * (ABNORMAL) ALT (03/17/2019 9:18 EDT) ALT 90(H) <50 U/L 03/17/2019 9:46 EDT [facility] Blood specimen (specimen) BLOOD SPECIMEN / Unknown 03/17/2019 9:18 EDT 03/17/2019 9:25 EDT us Kori Nguyen MD CHEMISTRY & BLOOD GAS ORD ERABLES Final Result Performing Organization Address City/[facility] Co de Phone Number [facility] [address] [place] [address] * ALKALINE PHOSPHATASE (03/17/2019 9:18 EDT) Total Alkaline Phosphatase 109 38 - 126 U/L 03/17/2019 9:46 EDT [facility] Blood specimen (specimen) BLOOD SPECIMEN / Unknown 03/17/2019 9:18 EDT 03/17/2019 9:25 EDT us Kori Nguyen MD CHEMISTRY & BLOOD GAS ORD ERABLES Final Result [facility] [address] [place] [address] * (ABNORMAL) ALBUMIN (03/17/2019 9:18 EDT) Albumin 2.2(L) 3.4 - 4.9 g/dl 03/17/2019 9:46 EDT [facility] Blood specimen (specimen) BLOOD SPECIMEN / Unknown 03/17/2019 9:18 EDT 03/17/2019 9:25 EDT us Kori Nguyen MD CHEMISTRY & BLOOD GAS ORD ERABLES Final Result Performing Organization Address City/[facility]/ZIP Co de Phone Number [facility] [address] [place] [address] * (ABNORMAL) SCREENING GLUCOSE (03/17/2019 9:18 EDT) Glucose, Screening 120(H) 70 - 100 mg/dl 03/17/2019 9:46 EDT [facility] Blood specimen (specimen) BLOOD SPECIMEN / Unknown 03/17/2019 9:18 EDT 03/17/2019 9:25 EDT us Kori Nguyen MD CHEMISTRY & BLOOD GAS ORD ERABLES Final Result [facility] [address] [place] [address] * (ABNORMAL) CREATININE (03/17/2019 9:18 EDT) Creatinine 3.11(H) 0.66 - 1.25 mg/dl 03/17/2019 9:46 EDT [facility] GFR, Calculated 20(L) >60 ml/min/1.7 3m2 03/17/2019 9:46 EDT [facility] Comment: eGFR calculated using CKD-EPI equation for non Americans. Multiply eGFR by 1.16 for Americans. Blood specimen (specimen) BLOOD SPECIMEN / Unknown 03/17/2019 9:18 EDT 03/17/2019 9:25 EDT us Kori Nguyen MD CHEMISTRY & BLOOD GAS ORD ERABLES Final Result Performing Organization Address City/[facility]/ZIP Co de Phone Number [facility] [address] [place] [address] * (ABNORMAL) BUN (03/17/2019 9:18 EDT) BUN 142(H) 10 - 26 mg/dl 03/17/2019 9:57 EDT [facility] Blood specimen (specimen) BLOOD SPECIMEN / Unknown 03/17/2019 9:18 EDT 03/17/2019 9:25 EDT us Kori Nguyen MD CHEMISTRY & BLOOD GAS ORD ERABLES Final Result Performing Organization Address [facility] Co de Phone Number [facility] [address] [place] [address] * (ABNORMAL) PHOSPHORUS (03/17/2019 9:18 EDT) Phosphorus 9.8(H) 2.5 - 4.5 mg/dl 03/17/2019 9:46 EDT [facility] Blood specimen (specimen) BLOOD SPECIMEN / Unknown 03/17/2019 9:18 EDT 03/17/2019 9:25 EDT us Kori Nguyen MD CHEMISTRY & BLOOD GAS ORD ERABLES Final Result Performing Organization Address City/[facility] Co de Phone Number [facility] [address] [place] [address] * MAGNESIUM (03/17/2019 9:18 EDT) Magnesium 2.6 1.7 - 2.8 mg/dl 03/17/2019 9:46 EDT [facility] Blood specimen (specimen) BLOOD SPECIMEN / Unknown 03/17/2019 9:18 EDT 03/17/2019 9:25 EDT us Kori Nguyen MD CHEMISTRY & BLOOD GAS ORD ERABLES Final Result Performing Organization Address [facility] Co de Phone Number [facility] [address] [place] [address] * PROCALCITONIN, INFECTIOUS DISEASE USE ONLY (03/17/2019 9:18 EDT) Procalcitonin, Infectious Disease Use Only 5.60 ng/ml 03/17/2019 10:24 EDT [facility] Comment: Procalcitonin levels <0.5 ng/ml represent a low risk of severe sepsis and/or septic shock. Blood specimen (specimen) BLOOD SPECIMEN / Unknown 03/17/2019 9:18 EDT 03/17/2019 9:25 EDT us Kori Nguyen MD CHEMISTRY & BLOOD GAS ORD ERABLES Final Result Performing Organization Address [facility] de Phone Number [facility] [address] [place] [address] * (ABNORMAL) ELECTROLYTES (03/17/2019 9:18 EDT) Sodium 137 136 - 145 mEq/L 03/17/2019 9:46 EDT [facility] Potassium 4.5 3.5 - 5.0 mEq/L 03/17/2019 9:46 EDT [facility] Chloride 108 96 - 110 mEq/L 03/17/2019 9:46 EDT [facility] CO2 15(L) 22 - 32 mEq/L 03/17/2019 9:46 EDT [facility] Blood specimen (specimen) BLOOD SPECIMEN / Unknown 03/17/2019 9:18 EDT 03/17/2019 9:25 EDT us Kori Nguyen MD CHEMISTRY & BLOOD GAS ORD ERABLES Final Result [facility] [address] [place] [address] * (ABNORMAL) CALCIUM (03/17/2019 9:18 EDT) Calcium 6.4(LL) 8.5 - 10.5 mg/dl 03/17/2019 9:46 EDT [facility] Calculated Calcium 7.8(L) 8.5 - 10.5 mg/dl 03/17/2019 9:46 T [facility] Blood specimen (specimen) BLOOD SPECIMEN / Unknown 03/17/2019 9:18 EDT 03/17/2019 9:25 EDT us Kori Nguyen MD CHEMISTRY & BLOOD GAS ORD ERABLES Final Result Performing Organization Address [facility] Co de Phone Number [facility] [address] [place] [address] * (ABNORMAL) BLOOD GAS, G3 ISTAT (03/17/2019 9:16 EDT) pH, i-STAT 7.02(L) 7.35 - 7.45 03/17/2019 9:21 [facility] pCO2, i-STAT 59(H) 35 - 45 mmHg 03/17/2019 9:21 [facility] pO2, i-STAT 83 80 - 105 mmHg 03/17/2019 9:21 [facility] TCO2, i-STAT 17(L) 23 - 27 mEq/L 03/17/2019 9:21 [facility] O2 Saturation 89(L) 95 - 98 % 03/17/2019 9:21 [facility] Base Deficit, i-STAT 16 03/17/2019 9:21 [facility] Sample Type ARTERIAL 03/17/2019 9:21 [facility] fish technologist ID [id number] 03/17/2019 9:21 [facility] Comment: Test Performed by Respiratory For non-arterial reference ranges, please see ISTAT procedure. BLOOD SPECIMEN / Unknown 03/17/2019 9:16 EDT 03/17/2019 9:21 EDT us Leticia Galdamez MD CHEMISTRY & BLOOD GAS ORDERAB LES Final Result Performing Organization Address City/[facility]/ZIP Co de Phone Number [facility] [address] [place] [address] * MRSA PCR (03/17/2019 9:05 EDT) Result Methicillin susceptible Staphylococcus aureus (MSSA) DNA detected by PCR. 03/17/2019 16:49 EDT [facility] Specimen of unknown material (specimen) NASAL ROUTE / Unknown 03/17/2019 9:05 EDT 03/17/2019 12:22 EDT us Kori Nguyen MD MICROBIOLOGY - GENERAL OR DERABLES Final Result Performing Organization Address City/[facility] Co de Phone Number [facility] [address] [place] [address] documented in this encounter Visit Diagnoses Diagnosis [...] doses, First dose (after last reorder) on [facility] 03/31/19 at 1400, Last dose on [facility] 04/05/19 at 0900, Routine Given 04/02/2019 20:08 [...] ml solution 10 ng/kg/min ? 76.5 kg [place] weight (1.53 mL/hr, rounded to 1.5 mL/hr), [...] PRN, Starting on 03/25/19 at 2008, Until [place] 03/25/19 at 2011, Routine Given 03/25/2019 20:13 [...] EVERY HOUR, 3 doses, First dose on [facility] 03/24/19 at 0100, Last dose on [facility] 03/24/19 at 0300, Routine Given 03/24/2019 3:30 EDT 20 mEq Given 03/24/2019 1:50 EDT 20 mEq Given 03/24/2019 0:41 EDT 20 mEq potassium chloride in water infusion 20 mEq 20 mEq, intravenous, NOW X1, 1 dose, On [place] 03/25/19 at 1045, Routine Given 03/25/2019 10:15 [...] Units/min (9 mL/hr), intravenous, CONTINUOUS, Starting on [facility] 03/17/19 at 1015, Until Tue03/19/19 at [...] EDT 0.01 Units/min 3 mL/hr Wool Alcoh-Min Wnw-Waypl-Kczsl (EUCERIN) cream topical, PRN, Starting on [place] [...] starting tomorrow night.) 2001 (Given - Provider: Elivn Barry RN) collagenase (SANTYL) ointment topical, DAILY, [...] Until Discontinued, Routine 0829 (Given - Provider: Jewesl Rosa RN)2100 (Canceled Entry - Provider: Viki [...] Other, PO4 < 2.5, Routine Wool Alcoh-Min Xru-Pcaaw-Jefes (EUCERIN) cream topical, PRN, Starting on Tue04/12/19 [...] 12.5 g 1 03/17/2019 polyethylene glycol 3350 (OR RALAX) packet 17 g 1 03/17/2019 sodium [...] REMOVE PICC LINE 2 04/23/2019 04/06/2019 PICC CUSTOMER SUPPORT MANAGER 1 03/24/2019 REMOVE CENTRAL CATHETER 1 03/23/2019 [...] 04/04 documented in this encounter Care Teams Medical Imaging Specialist Relationship Specialty Start Date End Date Unknown, Provider, PCP - General 05/25/15 04/23/19 documented as of this encounter
--- OUTSIDE RECORDS SUMMARY | 2024-07-12 15:11 | XMS_ITS | Encounter Summary ---
Author Organization [facility] Address [address] [place] [address] Care Team Providers Care Personal Companion Name Role Phone Unavailable Primary Care Provider Unavailabl e Encounter Details Date Type Department Care Team (Late st Contact Info) Description 03/17/2007 Results Only [facility] conversion [address] [place] [address] Manfred Frank, DO [address] [facility] [address] [place] [address] [id number] Social History Tobacco Use Types Packs/Day Years [...] ? ANIL BRYAN ? Accession #: ? [id number] ? : ? 1955 (Age: 52) ??M ? Collect Date: ? 03/17/2007 ? Location: ? [facility] ? Receive Date: ? 03/17/2007 ? Provider: MANFRED FRANK DO Copy to: RENNY MILES SATELLITE COMMUNICATIONS ENGINEER ? Final Pathologic Diagnosis: ? Skin of [...] in one of the central sections. ??(Dr. Fernandes)/[facility] Microscopic Description: ? Irregularly shaped islands of atypical basal cells infiltrate the dermis. The basal cells have scant cytoplasm and round dark nuclei. ??Mitotic figures and apoptotic bodies are evident. ??The nuclei at the periphery of the islands have a palisaded arrangement. 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 ??(Dr. Fernandes)/[facility] Document reviewed and electronically signed by: Theresa [...] cross sections are submitted as (A2). ??(Dr. Reed)/[facility] End of Report JERROD RODRIGUEZ 03/17/2007 03/17/2007 15: 05 EDT us Manfred Frank DO PATHOLOGY ORDERABLES Fi nal Result Performing Organization Address City/State/[facility] Co de Phone Number JERROD RODRIGUEZ [address] [place] [address] documented in this encounter Visit Diagnoses Not on filedocumented in this encounter
[2024-07-12 22:29] LABS: C Diff PCR Negative (Negative)
[2024-07-13 23:15] LABS: Campylobacter PCR Negative (Negative); Salmonella PCR Negative (Negative); Shiga Toxin PCR Negative (Negative); Shigella/Enteroinvasive Ecoli Negative (Negative)
[2024-07-16 16:59] LABS: Cryptosporidium, F Negative (Negative); Giardia Ag, F Negative (Negative)
== END 2024-07-12 15:01 | disposition home or self-care (01) ==
LOC: NCHCN 15:00
PROVIDERS: PCP Nurse Practitioner Family; Visit Provider Nurse Practitioner Family
DX: R19.7 Diarrhea, unspecified (principal)
CPT/HCPCS: 87328; 87329; 87493; 87505

== ENCOUNTER 2024-07-26 17:42 | Outpatient (REF) | payer MEDICARE, SELFPAY ==
[2024-07-26 20:38] LABS: HCT 44.7 % (40.0-50.0); HGB 14.6 g/dL (13.5-17.5); MCH 32.4 pg (27.0-33.0); MCHC 32.7 % (32.0-36.0); MCV 99 fL (80-95); MPV 11.4 fL (8.0-11.0); Platelet Count 266 10^3/uL (130-400); RDW 13.5 % (11.8-14.1); RDW-SD 50.1 fL; WBC 9.06 10^3/uL (4.4-10.8)
[2024-07-26 20:50] LABS: ALT 26 U/L (16-63); AST 26 U/L (15-37); Albumin 3.6 g/dL (3.4-5.0); Alkaline Phosphatase 86 U/L (46-116); Anion Gap 8.7 mmol/L (3-11); BUN 24 mg/dL (7-18); Bilirubin, Total 0.37 mg/dL (0.2-1.0); CO2 27.3 mmol/L (21.0-32.0); CREATININE 1.4 mg/dL (0.70-1.30); Chloride 105 mmol/L (98-107); Estimated GFR 54.07 (mL/min/1.73m2); Glucose 77 mg/dL (74-106); Potassium 4.5 mmol/L (3.5-5.1); Sodium 141 mmol/L (136-145); Total Protein 7.6 g/dL (6.4-8.2)
== END 2024-07-26 17:43 | disposition home or self-care (01) ==
LOC: NCHCN 17:42
PROVIDERS: PCP Nurse Practitioner Family; Visit Provider Nurse Practitioner Family
DX: N17.9 Acute kidney failure, unspecified (principal)
CPT/HCPCS: 80053; 85027

== ENCOUNTER 2024-07-31 17:56 | Outpatient (REF) | payer MEDICARE, SELFPAY ==
[2024-08-03 13:51] LABS: Helicobacter pylori Ag, Feces Negative (Negative)
== END 2024-07-31 17:57 | disposition home or self-care (01) ==
LOC: NCHCN 17:56
PROVIDERS: PCP Nurse Practitioner Family; Visit Provider Nurse Practitioner Family
DX: R19.7 Diarrhea, unspecified (principal)
CPT/HCPCS: 87338

== ENCOUNTER 2024-10-30 15:21 | Outpatient (REF) | payer MEDICARE, SELFPAY ==
[2024-10-30 21:50] LABS: HCT 42.6 % (40.0-50.0); HGB 14.4 g/dL (13.5-17.5); MCH 32.4 pg (27.0-33.0); MCHC 33.8 % (32.0-36.0); MCV 96 fL (80-95); MPV 11.6 fL (8.0-11.0); Platelet Count 232 10^3/uL (130-400); RBC 4.44 10^6/uL (4.36-5.78); RDW 15.7 % (11.8-14.1); RDW-SD 55.9 fL; WBC 8.62 10^3/uL (4.4-10.8)
[2024-10-30 21:55] LABS: Anion Gap 12.2 mmol/L (3-11); BUN 28 mg/dL (7-18); CO2 23.8 mmol/L (21.0-32.0); CREATININE 1.2 mg/dL (0.70-1.30); Calcium 9.7 mg/dL (8.5-10.1); Chloride 105 mmol/L (98-107); Estimated GFR 65.06 (mL/min/1.73m2); Glucose 88 mg/dL (74-106); Sodium 141 mmol/L (136-145)
== END 2024-10-30 15:22 | disposition home or self-care (01) ==
LOC: NCHCN 15:21
PROVIDERS: PCP Nurse Practitioner Family; Visit Provider Nurse Practitioner Family
DX: R19.7 Diarrhea, unspecified (principal)
CPT/HCPCS: 80048; 85027